=== PATIENT | male | born 1965 | race Caucasian/White ===

== ENCOUNTER 2020-04-01 17:03 | Outpatient (CLI) | payer OTHER, SELFPAY ==
[2020-04-01 17:20] LABS: Basophils Absolute Auto 0.02 K/mm3 (0.00-0.10); Basophils Percent Auto 0.3 % (0.0-1.0); Eosinophils Absolute Auto 0.11 K/mm3 (0.02-0.50); Eosinophils Percent Auto 1.7 % (1.0-6.0); Hematocrit 39.8 % (40.0-54.0); Hemoglobin 13.4 g/dL (14.0-18.0); Immature Granulocyte Absolute 0.02 K/mm3 (0.00-0.00); Immature Granulocyte Percent A 0.3 % (0.0-0.0); Lymphocytes Absolute Auto 2.12 K/mm3 (1.10-4.50); Lymphocytes Percent Auto 32.9 % (18.0-42.0); Mean Corpuscular HGB Conc 33.7 g/dL (32.0-36.0); Mean Corpuscular Hemoglobin 33.3 pg (27.0-31.0); Mean Platelet Volume 9.7 fl (8.7-11.0); Monocytes Absolute Auto 0.64 K/mm3 (0.10-0.90); Monocytes Percent Auto 9.9 % (2.0-11.0); Neutrophils Absolute Auto 3.5 K/mm3 (1.7-7.2); Neutrophils Percent Auto 54.9 % (50.0-70.0); Platelet Count Result 145 K/mm3 (150-420); Red Blood Count 4.02 M/mm3 (4.70-6.10); Red Cell Distribution Width 12.8 % (11.6-14.4); White Blood Count 6.4 K/mm3 (4.8-10.8)
[2020-04-01 17:31] LABS: Hemoglobin A1C 7.8 % (<5.7)
[2020-04-01 19:02] LABS: Alanine Aminotransferase 79 U/L (16-63); Albumin Level 3.7 g/dL (3.4-5.0); Alkaline Phosphatase 92 U/L (46-116); Anion Gap 10 mmol/L (8-16); Aspartate Amino Transferase 58 U/L (15-37); Bilirubin,Total 0.7 mg/dL (0.00-1.00); Blood Urea Nitrogen 15 mg/dL (7-18); Calcium 9.7 mg/dL (8.5-10.1); Carbon Dioxide 28 mmol/L (21-32); Chloride 100 mmol/L (98-108); Cholesterol 217 mg/dL (0-200); Estimated Glomerular Filt Rate > 60; Glucose 196 mg/dL (70-99); HDL Direct 37 mg/dL (40-60); Osmolality Calculated 291 mOsm/kg (285-295); Potassium 4.2 mmol/L (3.5-5.1); Sodium 138 mmol/L (136-145); Total Protein 7.8 g/dL (6.4-8.2)
[2020-04-01 19:11] LABS: LDL Cholesterol Calculated 81 mg/dL (<130); Triglycerides 497 mg/dL (0-150)
[2020-04-01 19:12] LABS: LDL Cholesterol Direct 102 mg/dL (0-130); Thyroid Stimulating Hormone Reflex 0.67 u/IU/mL (0.36-3.74)
[2020-04-05 04:52] LABS: Hepatitis C Signal to Cutoff 0.02 ratio (<1.00); Hepatitis C Virus Antibody Nonreactive (Nonreactive)
== END 2020-04-01 17:04 | disposition home or self-care (01) ==
LOC: CHSLAB 17:06
PROVIDERS: PCP Family Medicine; Visit Provider Family Medicine
DX: E78.5 Hyperlipidemia, unspecified (principal); E11.9 Type 2 diabetes mellitus without complications; I10 Essential (primary) hypertension; Z11.59 Encounter for screening for other viral diseases
CPT/HCPCS: 36415; 80053; 80061; 83036; 83721; 84443; 85025

== ENCOUNTER 2020-04-13 15:57 | Outpatient (CLI) | payer OTHER, SELFPAY ==
[2020-04-13 16:58] LABS: Prostate Specific Antigen 0.7 ng/mL (< OR = 4.0)
== END 2020-04-13 15:58 | disposition home or self-care (01) ==
LOC: CHSLAB 15:58
PROVIDERS: PCP Family Medicine; Visit Provider Family Medicine
DX: Z12.5 Encounter for screening for malignant neoplasm of prostate (principal)
CPT/HCPCS: 36415; 84153; G0103

== ENCOUNTER 2020-05-26 03:13 | Outpatient (CLI) | payer OTHER, SELFPAY ==
[2020-05-26 19:05] LABS: SARS-CoV-2 RNA PCR Negative
== END 2020-05-26 03:14 | disposition home or self-care (01) ==
LOC: ANHCOVIDDT 03:13
PROVIDERS: PCP Family Medicine; Visit Provider Internal Medicine Gastroenterology
DX: Z01.812 Encounter for preprocedural laboratory examination (principal); Z20.828 Contact with and (suspected) exposure to other viral communicable diseases
CPT/HCPCS: 87635; C9803; U0003

== ENCOUNTER 2020-05-28 00:21 | Day surgery (SDC) | payer OTHER, SELFPAY ==
[2020-05-25 10:00] VITALS: BMI 39.7
[2020-05-28 06:52] VITALS: BP 164/76; PULSE 61; RESP 20; TEMP 36.4; O2SAT 98; BMI 38.5
[2020-05-28] MEDS: LACTATED RINGERS 1,000 ML 150 ML IV CONT (07:06)
[2020-05-28 07:07] LABS: Glucose Point of Care 150 (65-105)
--- NOTE | 2020-05-28 07:30 | WPDANESEPPF ---
Anes - Initial Pre Proc Eval Procedure: Operation Date: 05/28/20 08:00 Proposed Procedures p Screening Colonoscopy - Tom Adam MD Date/Time: 05/28/20 07:30 Surgeon: Tom Adam MD Pre Op Diagnosis: Neoplasm Screening Patient Data Age: 55 Gender: M Height: 1.83 m Weight: 129 kg Last Vital Signs Temp 36.4 C L 05/28/20 06:52 Pulse 61 05/28/20 06:52 Resp 20 05/28/20 06:52 BP 164/76 H 05/28/20 06:52 Pulse Ox 98 05/28/20 06:52 Allergies Allergy/AdvReac Type Severity Reaction Status Date / Time cephalexin Allergy Intermediate Unknown Verified 05/28/20 06:50 Penicillins Allergy Intermediate Unknown Verified 05/28/20 06:50 Hydrocodone/Acetaminophen Allergy Intermediate Unknown Uncoded 05/28/20 06:50 Home Medications Medication Instructions Recorded Confirmed Type zolpidem 12.5 mg tablet,extended 12.5 mg PO ONCE #10 tablet 04/01/20 04/01/20 Rx release,multiphase cyclobenzaprine 10 mg tablet 10 mg PO BID #60 tablet 04/06/20 05/25/20 Rx sodium,potassium,mag sulfates 17.5 480 ml PO .COMPLEX #354 ml 04/07/20 Rx gram-3.13 gram-1.6 gram oral soln gabapentin 300 mg capsule 300 mg PO TID #90 cap 05/05/20 05/25/20 Rx pantoprazole 40 mg tablet,delayed 40 mg PO QAM #30 tablet 05/05/20 05/25/20 Rx release diclofenac sodium 75 mg 75 mg PO BID #60 tablet 05/11/20 05/25/20 Rx tablet,delayed release amlodipine 10 mg PO DAILY 05/25/20 05/25/20 History carvedilol 25 mg PO DAILY 05/25/20 05/25/20 History clonidine HCl 0.1 mg PO BID 05/25/20 05/25/20 History glipizide 10 mg PO DAILY 05/25/20 05/25/20 History losartan-hydrochlorothiazide 1 tablet PO DAILY 05/25/20 05/25/20 History metformin 1,000 mg PO BID 05/25/20 History metoprolol tartrate 50 mg PO BID 05/25/20 05/25/20 History oxybutynin chloride 10 mg PO DAILY 05/25/20 05/25/20 History rosuvastatin 20 mg PO DAILY 05/25/20 05/28/20 History sodium,potassium,mag sulfates 17.5 See Rx Instructions PO .COMPLEX 05/27/20 Rx gram-3.13 gram-1.6 gram oral soln #354 ml Laboratory Tests 05/28/20 06:58 POC Capillary Glucose 150 mg/dl H mg/dl (65-105) Patient hx anesthesia problems: none Family hx anesthesia problems: none PMFSH Past Medical History Medical History (Updated 05/28/20 @ 07:32 by Antony Fairchild MD) Chronic back pain JEWEL (generalized anxiety disorder) Heart murmur Sees Dr Meehan Hyperlipidemia Hypertension Obesity Type 2 diabetes mellitus Ulcer Family History Family History Other Family history of malignant neoplasm Family history of type 2 diabetes mellitus Social History Social History Smoking status: Never smoker Alcohol intake: current Substance use: never Substance use type: does not use Living arrangements: with family Anes - Evattila Final PreProcedure Day of Procedure 05/28/20 07:30 Patient weight: obese Heart: regular rate and rhythm Lungs: clear to auscultation and normal air movement Airway: Mallampati scale class II Neurological: alert and oriented Last oral intake: >/= 8 hours ASA classification: III Emergent: no Anesthetic plan: proceed Anesthesia type and monitoring: general GIVS Informed Consent: The patient's anesthetic plan and its attendant risks and benefits were discussed with the patient/family/POA. Questions were solicited and answers provided to the satisfaction of the patient/family/POA.
--- NOTE | 2020-05-28 08:12 | PM.HPGS ---
History of Present Illness History of Present Illness Consent: Risks, benefits, and alternatives have been discussed and questions answered. Patient agrees to proceed with procedure. Chief complaint: Neoplasm Screening Narrative: Jose Rutledge is a 55 year old male here for screening colonoscopy Review of Systems Constitutional: Constitutional: Denies headache(s) and Denies weakness Eyes: Eyes: Denies blurry vision ENT: Reports Normal hearing present, Denies headache(s) and Denies neck pain Cardiovascular: Cardiovascular: Denies chest pain and Denies dyspnea Respiratory: Respiratory: Denies dyspnea Gastrointestinal: Gastrointestinal: Reports no additional gastrointestinal complaints Genitourinary: Genitourinary: Denies dysuria Musculoskeletal: Musculoskeletal: Denies neck pain Integumentary/Breasts: Skin/Breast: Denies dry skin Neurologic: Reports Normal hearing present, Denies headache(s) and Denies weakness Psychiatric: Psychiatric: Denies anxiety Endocrine: Endocrine: Denies change in body appearance Hematologic/Lymphatic: Hematologic/Lymphatic: Denies easy bleeding Allergic/Immunologic: Allergic/Immunologic: Denies urticaria PMFSH Past Medical History Medical History (Updated 05/28/20 @ 07:32 by Antony Fairchild MD) Chronic back pain JEWEL (generalized anxiety disorder) Heart murmur Sees Dr Meehan Hyperlipidemia Hypertension Obesity Type 2 diabetes mellitus Ulcer Family History Family History Other Family history of malignant neoplasm Family history of type 2 diabetes mellitus Social History Social History Smoking status: Never smoker Alcohol intake: current Substance use: never Substance use type: does not use Living arrangements: with family Meds Home Medications and Allergies Home Medications Medication Instructions Recorded Confirmed Type zolpidem 12.5 mg tablet,extended 12.5 mg PO ONCE #10 tablet 04/01/20 04/01/20 Rx release,multiphase cyclobenzaprine 10 mg tablet 10 mg PO BID #60 tablet 04/06/20 05/25/20 Rx sodium,potassium,mag sulfates 17.5 480 ml PO .COMPLEX #354 ml 04/07/20 Rx gram-3.13 gram-1.6 gram oral soln gabapentin 300 mg capsule 300 mg PO TID #90 cap 05/05/20 05/25/20 Rx pantoprazole 40 mg tablet,delayed 40 mg PO QAM #30 tablet 05/05/20 05/25/20 Rx release diclofenac sodium 75 mg 75 mg PO BID #60 tablet 05/11/20 05/25/20 Rx tablet,delayed release amlodipine 10 mg PO DAILY 05/25/20 05/25/20 History carvedilol 25 mg PO DAILY 05/25/20 05/25/20 History clonidine HCl 0.1 mg PO BID 05/25/20 05/25/20 History glipizide 10 mg PO DAILY 05/25/20 05/25/20 History losartan-hydrochlorothiazide 1 tablet PO DAILY 05/25/20 05/25/20 History metformin 1,000 mg PO BID 05/25/20 History metoprolol tartrate 50 mg PO BID 05/25/20 05/25/20 History oxybutynin chloride 10 mg PO DAILY 05/25/20 05/25/20 History rosuvastatin 20 mg PO DAILY 05/25/20 05/28/20 History sodium,potassium,mag sulfates 17.5 See Rx Instructions PO .COMPLEX 05/27/20 Rx gram-3.13 gram-1.6 gram oral soln #354 ml Allergies Allergy/AdvReac Type Severity Reaction Status Date / Time cephalexin Allergy Intermediate Unknown Verified 05/28/20 06:50 Penicillins Allergy Intermediate Unknown Verified 05/28/20 06:50 Hydrocodone/Acetaminophen Allergy Intermediate Unknown Uncoded 05/28/20 06:50 Vital Signs Vital Signs - 24 hr 05/28/20 06:52 Temperature 97.5 F L Pulse Rate 61 Respiratory Rate 20 Blood Pressure 164/76 H Pulse Oximetry 98 Exam Const: General: comfortable and no acute distress HENMT: General nose exam: Normal nares present Eyes: General: appearance normal, both eyes and all related structures Neck: Neck: no JVD Resp: Auscultation: clear to auscultation bilaterally Cardio: Rate: regular rate Rhythm: regular rhythm GI: Inspection: non-diste
[2020-05-28 08:39] VITALS: BP 122/79; PULSE 64; RESP 21; O2SAT 97
[2020-05-28 08:52] VITALS: BP 139/86; PULSE 60; RESP 21; O2SAT 99
== END 2020-05-28 09:05 | disposition home or self-care (01) ==
PROVIDERS: PCP Family Medicine; Visit Provider Internal Medicine Gastroenterology
PROC: 0DJD8ZZ Inspection of Lower Intestinal Tract, Via Natural or Artificial Opening Endoscopic (ICD-10-PCS; CPT 45378; principal; 2020-05-28 08:00)
DX: Z12.11 Encounter for screening for malignant neoplasm of colon (principal); K64.8 Other hemorrhoids; I10 Essential (primary) hypertension; R01.1 Cardiac murmur, unspecified; E78.5 Hyperlipidemia, unspecified; E11.9 Type 2 diabetes mellitus without complications; E66.9 Obesity, unspecified; M54.9 Dorsalgia, unspecified; G89.29 Other chronic pain
CPT/HCPCS: 45378; J2704; J7120

== ENCOUNTER 2020-08-30 12:25 | Outpatient (CLI) | payer OTHER, SELFPAY ==
--- NOTE | ~2020-08-30 | XR_ITS ---
EXAMINATION: XR knee LT min 4V DATE: 08/30/2020 12:42 INDICATION: Left knee pain. TECHNIQUE: 4 views of left knee were obtained. COMPARISON: Left tibia and fibula radiographs 04/19/2010 FINDINGS: Bone alignment is normal. No fracture. There is mild tricompartmental osteoarthritis. There is a small knee joint effusion. IMPRESSION: 1. Mild left knee osteoarthritis. 2. Small left knee joint effusion. Reviewed, dictated and finalized at location A. TRAPPER
== END 2020-08-30 12:26 | disposition home or self-care (01) ==
PROVIDERS: PCP Family Medicine; Visit Provider Orthopaedic Surgery
DX: M17.12 Unilateral primary osteoarthritis, left knee (principal); M25.462 Effusion, left knee
CPT/HCPCS: 73564

== ENCOUNTER → 2021-01-13 15:48 | Outpatient (CLI) | payer OTHER, SELFPAY ==
--- NOTE | ~2021-01-13 | MR_ITS ---
EXAMINATION: MR knee LT wo con DATE: 01/13/2021 16:56 INDICATION: Left knee pain TECHNIQUE: Magnetic resonance imaging (MRI) of the left knee was performed without intravenous contra st. Sequences included coronal PD-weighted FSE, coronal PD-weighted FS FSE, sagittal T2-weighted FSE , sagittal PD-weighted FS FSE and axial PD weighted fat saturated FSE. COMPARISON: None. FINDINGS: Medial compartment: Complex medial meniscal tear which includes both radial as well as longitudinal horizontal tear plane s. Deep chondral ulceration with cortical irregularity and prominent subarticular edema at the anteri or weightbearing medial femoral condyle. Additional full and near full-thickness cartilage loss at th e medial half of the medial tibial plateau with small region of subarticular edema along the anterome dial rim. Less severe partial thickness cartilage loss with smooth chondral surface at the central to posterior weightbearing medial femoral condyle and remainder of the medial tibial plateau. Lateral compartment: Lateral meniscus is normal. Mild chondral surface irregularity at the central aspect of the lateral t ibial plateau. Mild partial thickness cartilage loss with smooth chondral surface along the posterior weightbearing lateral femoral condyle. Patellofemoral compartment: Partial thickness chondral fissuring involving up to 50% the cartilage thickness at the inferior aspe ct of the lateral patellar facet and apical ridge. Deep chondral ulceration with small central subcho ndral osteophytes at the inferior aspect of the medial trochlea. Ligaments and tendons: Complete tear of the anterior cruciate ligament. Posterior cruciate ligament is normal. Prominent thi ckening of the proximal medial collateral ligament with mild surrounding edema consistent with age-in determinate moderate grade sprain, favor chronic with reactive edema related to the meniscal tear. Mi ld proximal and distal patellar tendinopathy. Small enthesophytes and minimal tendinopathy at the dis leatha quadriceps tendon. The visualized medial and lateral hamstring tendons as well as the iliotibial band are normal. Fluid: Small left knee joint effusion with mild synovitis at the suprapatellar pouch. No loose osteochondral bodies identified. Small Paz's cyst. Osseous/other: No fracture or pathologic marrow replacing process. Low signal intensity rim surrounding a 2.1 x 1.3 x 1.4 cm central region of fat with signal loss on fat saturated images. There are few tiny foci of c alcification in this region on the plain radiographs which suggests fat necrosis and developing heter otopic ossification. IMPRESSION: 1. Complete anterior cruciate ligament tear. 2. Complex medial meniscal tear. 3. Interval development of moderate osteoarthritis with extensive moderate and high-grade chondromala frederic in the medial compartment. 4. Minimal change in mild osteoarthritis with regions of moderate to high-grade chondral malacia in t he patellofemoral compartment and interval development of mild osteoarthritis with low to moderate gr nellie chondromalacia in the lateral compartment. 5. Small left knee joint effusion and small Paz's cyst. Reviewed, dictated and finalized at location A. IMPRESSION: 1. Complete anterior cruciate ligament tear. 2. Complex medial meniscal tear. 3. Interval development of moderate osteoarthritis with extensive moderate and high-grade chondromalacia in the medial compartment. 4. Minimal change in mild osteoarthritis with regions of moderate to high-grade chondral malacia in the patellofemoral compartment and interval development of mild osteoarthritis with low to moderate grade chondromalacia in the lateral c ompartment. 5. Small left knee joint effusion and smal
== END ==
PROVIDERS: Visit Provider Orthopaedic Surgery
DX: S83.232A Complex tear of medial meniscus, current injury, left knee, initial encounter (principal); S83.512A Sprain of anterior cruciate ligament of left knee, initial encounter; X58.XXXA Exposure to other specified factors, initial encounter; M25.462 Effusion, left knee; M71.22 Synovial cyst of popliteal space [Baker], left knee
CPT/HCPCS: 73721

== ENCOUNTER 2021-01-14 12:10 | Outpatient (CLI) | payer OTHER, SELFPAY ==
[2021-01-14 12:41] LABS: Hemoglobin A1C 6.5 % (<5.7)
== END 2021-01-14 12:11 | disposition home or self-care (01) ==
PROVIDERS: PCP Family Medicine; Visit Provider Orthopaedic Surgery
DX: R73.9 Hyperglycemia, unspecified (principal)
CPT/HCPCS: 36415; 83036

== ENCOUNTER 2021-02-01 14:06 | Outpatient (CLI) | payer OTHER, SELFPAY | END 2021-02-01 14:07 | disposition home or self-care (01) | LOC: CHSIMG 14:07 | PROVIDERS: PCP Family Medicine; Visit Provider Specialist | DX: I25.10 Atherosclerotic heart disease of native coronary artery without angina pectoris (principal); I35.9 Nonrheumatic aortic valve disorder, unspecified; I51.7 Cardiomegaly; I10 Essential (primary) hypertension | CPT/HCPCS: C8929 ==

== ENCOUNTER 2021-02-14 03:07 | Day surgery (SDC) | payer OTHER, SELFPAY ==
[2021-02-10 11:12] VITALS: BMI 39.3
--- NOTE | 2021-02-10 14:37 | PM.IMHP ---
H&P: HPI History of Present Illness Date/Time: 02/10/21 14:37 Chief Complaint: left knee pain Narrative: 55-year-old gentleman with a history of left knee pain. Previous cortisone injections with temporary relief. More recent pain with activity and weight-bearing unrelieved with conservative measures. Also recent cellulitis of the left leg improved with oral antibiotics. Patient has failed non operative treatment and presents now for operative treatment for the left knee. Review of Systems Constitutional: Constitutional: Denies headache(s) and Denies weakness Eyes: Eyes: Denies blurry vision ENT: Reports Normal hearing present, Denies headache(s) and Denies neck pain Cardiovascular: Cardiovascular: Denies chest pain and Denies dyspnea Respiratory: Respiratory: Denies dyspnea Gastrointestinal: Gastrointestinal: Reports no additional gastrointestinal complaints Genitourinary: Genitourinary: Denies dysuria Musculoskeletal: Musculoskeletal: Denies neck pain Integumentary/Breasts: Skin/Breast: Denies dry skin Neurologic: Reports Normal hearing present, Denies headache(s) and Denies weakness Psychiatric: Psychiatric: Denies anxiety Endocrine: Endocrine: Denies change in body appearance Hematologic/Lymphatic: Hematologic/Lymphatic: Denies easy bleeding Allergic/Immunologic: Allergic/Immunologic: Denies urticaria PMFSH Past Medical History Medical History (Updated 02/10/21 @ 14:39 by Noé Crowley MD) Acute medial meniscus tear of left knee Cellulitis of left leg Chronic back pain Degenerative arthritis of left knee JEWEL (generalized anxiety disorder) Heart murmur Sees Dr Meehan Hyperlipidemia Hypertension Knee pain, left Obesity Type 2 diabetes mellitus Ulcer Family History Family History Other Family history of malignant neoplasm Family history of type 2 diabetes mellitus Social History Social History Smoking status: Never smoker Second hand tobacco smoke exposure: No Alcohol intake: current Drinks per week: 12 Alcohol use details: beer Substance use: never Substance use type: does not use Spiritual care concerns: No Meds Home Medications and Allergies Home Medications Medication Instructions Recorded Confirmed Type carvedilol 25 mg PO DAILY 05/25/20 02/03/21 History metformin 1,000 mg tablet 1,000 mg PO BID #180 tablet 08/17/20 02/03/21 Rx pantoprazole 40 mg tablet,delayed 40 mg PO QAM #90 tablet 08/18/20 02/03/21 Rx release amlodipine 10 mg tablet 10 mg PO DAILY #90 tablet 09/13/20 02/03/21 Rx glipizide 10 mg tablet 10 mg PO DAILY #90 tablet 09/13/20 02/03/21 Rx losartan 100 1 tablet PO DAILY #90 tablet 09/13/20 02/03/21 Rx mg-hydrochlorothiazide 12.5 mg tablet rosuvastatin 20 mg tablet 20 mg PO DAILY #90 tablet 09/13/20 02/03/21 Rx zolpidem 12.5 mg tablet,extended 12.5 mg PO ONCE #10 tablet 11/16/20 02/03/21 Rx release,multiphase gabapentin 300 mg capsule 300 mg PO TID #90 cap 12/17/20 02/03/21 Rx aspirin 81 mg tablet,delayed 81 mg PO DAILY 01/14/21 02/03/21 History release clonidine HCl 0.1 mg tablet See Rx Instructions .ROUTE 01/24/21 02/03/21 Rx .COMPLEX #180 tablet cyclobenzaprine 10 mg tablet See Rx Instructions .ROUTE 02/10/21 Rx .COMPLEX #60 tablet diclofenac sodium 75 mg See Rx Instructions .ROUTE 02/10/21 Rx tablet,delayed release .COMPLEX #60 tablet Allergies Allergy/AdvReac Type Severity Reaction Status Date / Time cephalexin Allergy Intermediate Rash Verified 02/10/21 11:07 Penicillins Allergy Intermediate Rash Verified 02/10/21 11:07 Hydrocodone/Acetaminophen AdvReac Intermediate Nausea and Uncoded 02/10/21 11:07 Vomiting Exam Const: General: healthy appearing; No in distress or confusion Orientation/consciousness: oriented to person, oriented to place, oriented to time and No confusio
[2021-02-14] VITALS (9 sets, daily range): BP systolic 131–151; BP diastolic 69–84; PULSE 64–78; RESP 11–20; TEMP 36.3–37; O2SAT 93–99
--- NOTE | 2021-02-14 07:20 | WPDHPUPDATE1 ---
History and Physical Update Update Date/Time: 02/14/21 07:20 History and Physical has been reviewed, including an updated exam of the patient. There are NO changes in the patient's condition. Risks, benefits, and alternatives have been discussed and questions answered. Patient agrees to proceed with procedure.
[2021-02-14] MEDS: ACETAMINOPHEN 500 MG TABLET 1000 MG PO (08:33)
[2021-02-14] MEDS: LACTATED RINGERS 1,000 ML 30 ML IV CONT ×2 (08:42→13:02)
[2021-02-14] MEDS: KETOROLAC 15 MG/ML VIAL (*BKC) IV PUSH (08:44)
--- NOTE | 2021-02-14 09:24 | WPDANESEPPF ---
Anes - Initial Pre Proc Eval Procedure: Operation Date: 02/14/21 10:00 Proposed Procedures p Left Knee Arthroscopy, Debride Meniscus, Synovectomy, Chondroplasty, Proceed As Indicated - Noé Crowley MD Date/Time: 02/14/21 09:24 Surgeon: Noé Crowley MD Pre Op Diagnosis: left knee pain,medial meniscal tear, chondromylasi Patient Data Age: 55 Gender: M Height: 1.83 m Weight: 131.54 kg Allergies Allergy/AdvReac Type Severity Reaction Status Date / Time cephalexin Allergy Intermediate Nausea Verified 02/14/21 08:21 Penicillins Allergy Intermediate Hives Verified 02/14/21 08:21 hydrocodone [From [place]] AdvReac Intermediate Nausea and Verified 02/14/21 08:21 Vomiting Home Medications Medication Instructions Recorded Confirmed Type carvedilol 25 mg PO DAILY 05/25/20 02/14/21 History metformin 1,000 mg tablet 1,000 mg PO BID #180 tablet 08/17/20 02/14/21 Rx pantoprazole 40 mg tablet,delayed 40 mg PO QAM #90 tablet 08/18/20 02/14/21 Rx release amlodipine 10 mg tablet 10 mg PO DAILY #90 tablet 09/13/20 02/14/21 Rx glipizide 10 mg tablet 10 mg PO DAILY #90 tablet 09/13/20 02/14/21 Rx losartan 100 1 tablet PO DAILY #90 tablet 09/13/20 02/14/21 Rx mg-hydrochlorothiazide 12.5 mg tablet rosuvastatin 20 mg tablet 20 mg PO DAILY #90 tablet 09/13/20 02/14/21 Rx gabapentin 300 mg capsule 300 mg PO TID #90 cap 12/17/20 02/14/21 Rx aspirin 81 mg tablet,delayed 81 mg PO DAILY 01/14/21 02/14/21 History release clonidine HCl 0.1 mg tablet See Rx Instructions .ROUTE 01/24/21 02/14/21 Rx .COMPLEX #180 tablet cyclobenzaprine 10 mg tablet See Rx Instructions .ROUTE 02/10/21 02/14/21 Rx .COMPLEX #60 tablet diclofenac sodium 75 mg See Rx Instructions .ROUTE 02/10/21 02/14/21 Rx tablet,delayed release .COMPLEX #60 tablet multivitamin [Daily Vitamin] 1 tablet PO DAILY 02/10/21 02/14/21 History Laboratory Tests 02/14/21 08:14 Sodium Pending Potassium Pending Chloride Pending Carbon Dioxide Pending Anion Gap Pending BUN Pending Creatinine Pending Estim Creat Clear Calc Pending Estimated GFR Pending Glucose Pending Calcium Pending Patient hx anesthesia problems: none Family hx anesthesia problems: none [facility] Past Medical History Medical History (Updated 02/10/21 @ 14:39 by Noé Crowley MD) Acute medial meniscus tear of left knee Cellulitis of left leg Chronic back pain Degenerative arthritis of left knee JEWEL (generalized anxiety disorder) Heart murmur Sees Dr Meehan Hyperlipidemia Hypertension Knee pain, left Obesity Type 2 diabetes mellitus Ulcer Family History Family History Other Family history of malignant neoplasm Family history of type 2 diabetes mellitus Social History Social History Smoking status: Never smoker Second hand tobacco smoke exposure: No Alcohol intake: current Drinks per week: 12 Alcohol use details: beer Substance use: never Substance use type: does not use Living arrangements: with family Spiritual care concerns: No Anes - Eval Final PreProcedure Day of Procedure 02/14/21 09:24 Patient weight: obese Heart: regular rate and rhythm Lungs: clear to auscultation and normal air movement Airway: Mallampati scale class III Neurological: alert and oriented Last oral intake: >/= 8 hours ASA classification: III Emergent: no Anesthetic plan: proceed Anesthesia type and monitoring: general LMA and standard monitoring Informed Consent: The patient's anesthetic plan and its attendant risks and benefits were discussed with the patient/family/POA. Questions were solicited and answers provided to the satisfaction of the patient/family/POA.
[2021-02-14 09:26] LABS: Anion Gap 9 mmol/L (8-16); Blood Urea Nitrogen 16 mg/dL (9-20); Calcium 8.9 mg/dL (8.4-10.2); Carbon Dioxide 25 mmol/L (22-30); Chloride 103 mmol/L (98-107); Estimated CRCL calculation 142 ml/min; Estimated Glomerular Filt Rate > 60; Glucose 167 mg/dL (75-110); Potassium 4.1 mmol/L (3.4-5.0); Sodium 137 mmol/L (137-145)
--- NOTE | 2021-02-14 09:29 | WPDANESEPPF ---
Anes - Initial Pre Proc Eval Procedure: Operation Date: 02/14/21 10:00 Proposed Procedures p Left Knee Arthroscopy, Debride Meniscus, Synovectomy, Chondroplasty, Proceed As Indicated - Noé Crowley MD Date/Time: 02/14/21 09:29 Surgeon: Noé Crowley MD Pre Op Diagnosis: left knee pain,medial meniscal tear, chondromylasi Patient Data Age: 55 Gender: M Height: 1.83 m Weight: 132.5 kg Allergies Allergy/AdvReac Type Severity Reaction Status Date / Time cephalexin Allergy Intermediate Nausea Verified 02/14/21 08:21 Penicillins Allergy Intermediate Hives Verified 02/14/21 08:21 hydrocodone [From [place]] AdvReac Intermediate Nausea and Verified 02/14/21 08:21 Vomiting Home Medications Medication Instructions Recorded Confirmed Type carvedilol 25 mg PO DAILY 05/25/20 02/14/21 History metformin 1,000 mg tablet 1,000 mg PO BID #180 tablet 08/17/20 02/14/21 Rx pantoprazole 40 mg tablet,delayed 40 mg PO QAM #90 tablet 08/18/20 02/14/21 Rx release amlodipine 10 mg tablet 10 mg PO DAILY #90 tablet 09/13/20 02/14/21 Rx glipizide 10 mg tablet 10 mg PO DAILY #90 tablet 09/13/20 02/14/21 Rx losartan 100 1 tablet PO DAILY #90 tablet 09/13/20 02/14/21 Rx mg-hydrochlorothiazide 12.5 mg tablet rosuvastatin 20 mg tablet 20 mg PO DAILY #90 tablet 09/13/20 02/14/21 Rx gabapentin 300 mg capsule 300 mg PO TID #90 cap 12/17/20 02/14/21 Rx aspirin 81 mg tablet,delayed 81 mg PO DAILY 01/14/21 02/14/21 History release clonidine HCl 0.1 mg tablet See Rx Instructions .ROUTE 01/24/21 02/14/21 Rx .COMPLEX #180 tablet cyclobenzaprine 10 mg tablet See Rx Instructions .ROUTE 02/10/21 02/14/21 Rx .COMPLEX #60 tablet diclofenac sodium 75 mg See Rx Instructions .ROUTE 02/10/21 02/14/21 Rx tablet,delayed release .COMPLEX #60 tablet multivitamin [Daily Vitamin] 1 tablet PO DAILY 02/10/21 02/14/21 History Laboratory Tests 02/14/21 08:58 Sodium 137 mmol/L mmol/L (137-145) Potassium 4.1 mmol/L mmol/L (3.4-5.0) Chloride 103 mmol/L mmol/L (98-107) Carbon Dioxide 25 mmol/L mmol/L (22-30) Anion Gap 9 mmol/L mmol/L (8-16) BUN 16 mg/dL mg/dL (9-20) Creatinine 0.70 mg/dL mg/dL (0.7-1.3) Estim Creat Clear Calc 142 ml/min ml/min Estimated GFR > 60 (59 - ) Glucose 167 mg/dL H mg/dL (75-110) Calcium 8.9 mg/dL mg/dL (8.4-10.2) Patient hx anesthesia problems: none Family hx anesthesia problems: none [facility] Past Medical History Medical History (Updated 02/10/21 @ 14:39 by Noé Crowley MD) Acute medial meniscus tear of left knee Cellulitis of left leg Chronic back pain Degenerative arthritis of left knee JEWEL (generalized anxiety disorder) Heart murmur Sees Dr Meehan Hyperlipidemia Hypertension Knee pain, left Obesity Type 2 diabetes mellitus Ulcer Family History Family History Other Family history of malignant neoplasm Family history of type 2 diabetes mellitus Social History Social History Smoking status: Never smoker Second hand tobacco smoke exposure: No Alcohol intake: current Drinks per week: 12 Alcohol use details: beer Substance use: never Substance use type: does not use Living arrangements: with family Spiritual care concerns: No Anes - Eval Final PreProcedure Day of Procedure 02/14/21 09:29 Informed Consent: The patient's anesthetic plan and its attendant risks and benefits were discussed with the patient/family/POA. Questions were solicited and answers provided to the satisfaction of the patient/family/POA.
--- NOTE | 2021-02-14 10:06 | SUR.PREOP ---
1005 informed pt delay in procedure.
[2021-02-14] MEDS: CLINDAMYCIN 900 MG/D5W 50 ML 900 MG/50 ML PIGGYBACK 50 MG IVPB (11:47)
[2021-02-14] MEDS: BUPIVACAINE/EPINEPHRINE 0.5% 30 ML VIAL INFILTRATE (12:31)
[2021-02-14] MEDS: BUPIVACAINE HCL 0.25% PF 30 ML VIAL INFILTRATE (12:47)
--- NOTE | 2021-02-14 12:58 | W.PM.PROC2 ---
Procedure Note - Detailed Date of Procedure 02/14/21 Pre-op Diagnosis left knee pain,medial meniscal tear, chondromylasi Post-op Diagnosis same Procedure Performed Right knee arthroscopy with medial meniscectomy, synovectomy, chondroplasty Surgeon Noé Crowley MD Post Doctoral Fellow none Anesthesia general Indications 55-year-old gentleman with left knee pain. Continues to have symptoms despite cortisone injection, physical therapy, bracing and home exercises. MRI demonstrates medial meniscus tear as well as degenerative changes. He has an old ACL tear. He presents now for operative treatment. Findings Left knee with complete absence of the anterior cruciate ligament. Posterior cruciate ligament intact. Mild fraying of the lateral meniscus. Large degenerative complex tear of the posterior horn of the medial meniscus. Grade 4 chondromalacia medial femoral condyle. Grade 3 chondromalacia of the medial tibial plateau. Grade 1 chondromalacia lateral compartment. Grade 3 chondromalacia patella. Extensive anterior synovitis with impingement under the patella. Large medial and lateral plica. Description of Procedure Informed consent given by patient. Operative extremity marked in preoperative holding area. Patient received intravenous antibiotics. Patient brought to operating room and underwent general anesthetic by anesthesia team. Positioned supine on operating room table. Left leg placed into a posterior thigh leg juares. Foot of the table dropped to 90? and right leg padded out of the field. Time-out performed confirming patient, site of surgery and plan. Left knee prepped and draped in usual sterile surgical fashion using ChloraPrep skin solution. Standard arthroscopic portals made by using a 11 blade knife for the anterior lateral portal 1st. Capsule penetrated bluntly. Camera and inflow started. The below operative findings noted. Intra-articular visualization used to position the anterior medial portal using 22 gauge spinal needle. A 11 blade knife used for the skin and blunt penetration of the capsule. 4.7 millimeter arthroscopic shaver introduced and partial medial meniscectomy of the loose and torn portion performed. Edge of meniscus completed with arthroscopic Wand. Arthroscopic Wand used to perform chondroplasty of the patellofemoral articulation and the medial femoral condyle. Shaver reintroduced and a synovectomy performed of the anterior fat pad and extensive synovium as well as medial and lateral plica. Bleeding points coagulated with Wand. Knee inspected, no loose pieces noted. 1 liter of irrigant infused and suction out. Arthroscopic cannulas removed. Skin closed with 4 nylon interrupted suture. Local anesthetic with 0.25% Marcaine. Sterile dressing applied. Patient awoken from anesthesia, extubated and taken to recovery room in stable condition. All sponge needle and instrument counts correct at the end of the case. Estimated Blood Loss 5 Tourniquet Time 0 Drains No Packing No Pathology none sent Complications None Condition stable Disposition PACU
[2021-02-15 05:58] LABS: Glucose Point of Care 139 mg/dl (65-105)
== END 2021-02-14 15:00 | disposition home or self-care (01) ==
PROVIDERS: Anesthesiology; PCP Family Medicine; Visit Provider Orthopaedic Surgery
PROC: (CPT 29870; principal; 2021-02-14 10:00)
DX: M23.322 Other meniscus derangements, posterior horn of medial meniscus, left knee (principal); M94.262 Chondromalacia, left knee; M65.862 Other synovitis and tenosynovitis, left lower leg; M17.12 Unilateral primary osteoarthritis, left knee; I10 Essential (primary) hypertension; E78.5 Hyperlipidemia, unspecified; E11.9 Type 2 diabetes mellitus without complications; F41.8 Other specified anxiety disorders; M54.9 Dorsalgia, unspecified; G89.29 Other chronic pain; R01.1 Cardiac murmur, unspecified; E66.9 Obesity, unspecified; Z68.39 Body mass index [BMI] 39.0-39.9, adult; Z79.84 Long term (current) use of oral hypoglycemic drugs; Z79.82 Long term (current) use of aspirin
CPT/HCPCS: 29881; 36415; 80048; 82948; A9270; J1100; J1170; J1885; J2250; J2405; J2704; J3010; J7120

== ENCOUNTER 2021-02-21 07:28 | Outpatient (CLI) | payer OTHER, SELFPAY ==
--- NOTE | ~2021-02-21 | XR_ITS ---
EXAMINATION: XR knee LT 3V DATE: 02/21/2021 08:49 INDICATION: Recent left knee surgery TECHNIQUE: Three views of the left knee were obtained. COMPARISON: 08/30/2020 FINDINGS: Alignment is normal. No fracture or osteochondral lesion. There is mild tricompartmental os teoarthritis characterized by tiny marginal osteophytes. There is a small knee joint effusion. IMPRESSION: 1. Small knee joint effusion. Reviewed, dictated and finalized at location B.
== END 2021-02-21 07:29 | disposition home or self-care (01) ==
PROVIDERS: PCP Family Medicine; Visit Provider Orthopaedic Surgery
DX: M25.562 Pain in left knee (principal); G89.29 Other chronic pain
CPT/HCPCS: 73562

== ENCOUNTER 2021-02-24 07:49 | Outpatient (RCR) | payer OTHER, SELFPAY ==
--- NOTE | 2021-02-24 09:00 | PTOPEVAL ---
Thank you for referring Jose Rutledge to [facility].? The patient is scheduled to be seen for therapy? ____x/week for ___ weeks. Please review, sign, date and return this plan of care DEZ. I agree with and certify that the following plan of care is medically necessary. Referring Physician Date Admitting Provider: Attending Provider: Noé Crowley MD Referring Provider: *PT Outpatient Evaluation Start: 02/24/21 08:06 Freq: Status: Active Protocol: Document 02/24/21 08:05 JOCELYNE (Rec: 02/24/21 08:59 JOCELYNE [id number]) Therapy Assessment Status Assessment Status Assessment Status Evaluation Outpatient Past Medical History Neurological History Hx Neurological Disorders No Significant History Cardiovascular History Hx Hypercholesterolemia Yes Hx Hypertension Yes Respiratory History Hx Respiratory Disorders No Significant History Gastrointestinal History Hx Appendectomy Yes Hx Gastroesophageal Reflux Disease Yes Hx Gastrointestinal Bleed Yes: Due to bleeding ulcers 2012 Hx Ulcer Yes Genitourinary History Hx Genitourinary Disorders No Significant History Musculoskeletal History Hx Back Pain Yes Hx Orthopedic Surgery Yes: RIGHT SHOULDER Hx Spinal Surgery Yes Hematological History Hx Blood Transfusions Yes Endocrine History Hx Diabetes Yes: takes metformin HEENT History Hx HEENT Disorders No Significant History Integumentary History Hx Psoriasis Yes: bilat thighs Reproductive History Hx Reproductive Disorders No Significant History Psychosocial History Hx Anxiety Yes Pain History Has Past Pain Affected Your Daily Life Yes History of Long-Term Prescription Pain Yes: oxycodone, tramadol... Medication Use (Opiates) stopped 8 years ago Anesthesia History Hx Anesthesia Reactions No Significant History Evaluation Information Problem Diagnosis L knee arthroscopy Onset 02/14/21 Additional Evaluation Detail LEFS = 52% functionally declined Subjective Information patient reports he had a Query Text:As Reported By Patient/ meniscectomy on 02/14/21. he Family reports initially there was no injury, but he began having pain. he reports prior to surgery he would have good and bad days. he reports he would have to assist his leg into his truck some days. he reports since surgyer, he has bee
== END 2021-03-17 23:59 | disposition home or self-care (01) ==
LOC: CHSPT 07:49
PROVIDERS: Visit Provider Orthopaedic Surgery
DX: Z98.890 Other specified postprocedural states (principal)
CPT/HCPCS: 97016; 97110; 97161

== ENCOUNTER → 2021-08-03 20:20 | Outpatient (CLI) | payer OTHER, SELFPAY ==
--- NOTE | 2021-08-08 14:46 | WPDSLEEPSTUD ---
Sleep Study Date of Study: 08/03/21 Ordering Provider: Faisal Richardson DO Interpreting Physician: Crystal Dick MD Sleep Study Type: Split Polysomnogram Height: 1.83 m Weight: 131.542 kg Body Mass Index: 39.3 Neck Circumference (inches): 21 [place]: 18 Reason for Sleep Study Poor sleep for 8 years, using sleeping pills to get to sleep, waking during the night, waking up feeling tired Sleep History Jose Rutledge is a 56-year-old man who has difficulty falling asleep and staying asleep. He wakes up throughout the night. He has used sleeping pills to help get to sleep. He occasionally awakens from sleep feeling short of breath. He does not awaken at night with heartburn, belching or coughing. He frequently snores and this is always loud enough that others complain about it. He rarely has trouble sleeping with a cold. He occasionally wakes up gasping for breath at night. He frequently has breathing problems at night observed by others. He occasionally sweats excessively at night and notices his heart pounding or beating irregularly night. He frequently falls asleep during the day frequently falls asleep involuntarily and occasionally falls asleep while driving. He occasionally has loss of muscle tone was strong emotion. He frequently has daytime difficulties due to excessive sleepiness. He occasionally feels paralyzed on waking or falling asleep and occasionally has vivid dreamlike scenes upon awakening or falling asleep. He does not feel afraid to go to sleep. He does not have nightmares. He frequently remembers his dreams. He frequently has racing thoughts. He rarely feels sad or depressed. He occasionally has anxiety and occasionally has muscular tension. He rarely notices parts of his body jerking. He does not kick during the night. He frequently has crawling and aching feelings in his legs and frequently has leg pain during the night. He does not have morning jaw pain. He rarely grinds his teeth during sleep. He occasionally has bothered by pain during the day, occasionally awakened by pain at night and occasionally wakes up feeling stiff in the morning with sore achy muscles. He frequently wakes up with pain in the neck and spine. Normal bedtime is 10:00 p.m. falling asleep within half an hour typically waking 4-5 times at night to use the bathroom or take his dogs outside. He may stay awake between 15 and 30 minutes during these night time awakenings. He wakes the morning at 4:15 a.m.. On the weekends he goes to bed later, 12 midnight and wakes at 7:00 a.m.. He takes naps in the afternoon or evening. A short nap may be refreshing. He is usually drowsy in the morning for 1 hour or longer. He feels better in the evening compared to other times of day. He has morning headaches on occasion. Habits: Never smoked tobacco. Caffeine 3-4 servings a day. Alcohol 4-5 servings a day. No recreational drugs. [facility] Past Medical History Medical History (Updated 08/08/21 @ 15:51 by Crystal Dick MD) Acid reflux Acute medial meniscus tear of left knee Cellulitis of left leg Chronic back pain Degenerative arthritis of left knee JEWEL (generalized anxiety disorder) Heart murmur Sees Dr Meehan Hyperlipidemia Hypertension Knee pain, left Obesity Type 2 diabetes mellitus Ulcer Surgical History Surgical History (Updated 07/28/21 @ 10:48 by Stephanie Reed MA) H/O knee surgery Family History Family History Other Family history of malignant neoplasm Family history of type 2 diabetes mellitus Social History Social History (Updated 07/28/21 @ 07:46 by Stephanie Reed MA) Smoking status: Never smoker Second hand tobacco smoke exposure: No Alcohol intake: current Drinks per week: 12 Alcohol use details: beer Substance use: never Substance use type: does not use Spiritual care concerns: No Medications Home Medications
[2021-08-08 16:06] VITALS: BMI 39.3
== END ==
PROVIDERS: PCP Family Medicine; Visit Provider Family Medicine
DX: G47.30 Sleep apnea, unspecified (principal); G47.00 Insomnia, unspecified
CPT/HCPCS: 95811

== ENCOUNTER 2021-10-04 11:26 | Emergency (ER) | payer OTHER, SELFPAY ==
--- NOTE | ~2021-10-04 | US_ITS ---
EXAMINATION:US venous doppler LE RT INDICATION:Leg swelling TECHNIQUE: Multiple grayscale, color flow and Doppler images of the right lower extremity deep venous systems were obtained and reviewed. COMPARISON:04/19/2010 FINDINGS: The common femoral, superficial femoral and popliteal veins demonstrate normal respiratory variation, augmentation and compressibility. Color flow is also seen within the posterior tibial, pe roneal, greater saphenous and profunda veins. There is an enlarged right inguinal lymph node measurin g 4.7 x 3.4 x 1.1 cm, likely reactive. IMPRESSION: 1: No lower extremity deep venous thrombosis. Reviewed, dictated and finalized at location A. EPT ARTIST
--- NOTE | ~2021-10-04 | CT_ITS ---
EXAMINATION: CT brain wo con DATE: 10/04/2021 13:00 INDICATION: Dizziness. TECHNIQUE: Computed tomography (CT) of the head was performed without intravenous contrast. The mA wa s adjusted according to patient size. Iterative reconstruction technique was employed. The dose-lengt h product was 605.33 mGy-cm. COMPARISON: Head CT 03/20/2007 FINDINGS: There is no intracranial hemorrhage, acute infarction, or abnormal intracranial mass lesion . The ventricles are normal in size. There is mild mucosal thickening in the ethmoid sinuses. The mas toid air cells are normal. The orbits are normal. IMPRESSION: 1. Normal brain. Reviewed, dictated and finalized at location A. EL ENGINE TESTER IMPRESSION: 1. Normal brain.
--- NOTE | ~2021-10-04 | CT_ITS ---
EXAMINATION: CT abdomen pelvis w con DATE: 10/04/2021 13:00 INDICATION: Generalized weakness. Epigastric pain. Dizziness. TECHNIQUE: Computed tomography (CT) of the abdomen and pelvis was performed with 100 cc Omnipaque 350 intravenous contrast. The dose-length product was 1499.14 mGy-cm. Automated exposure control and ite rative reconstruction technique were employed. COMPARISON: None. FINDINGS: Lung bases are unremarkable. Heart size normal. No significant pleural or pericardial effus ion. No significant vascular abnormality. No aneurysm. There are bilateral inguinal hernias. Left inguinal hernia contains a segment of nonobstructed colon. No bowel obstruction. Fatty infiltration of the liver. The spleen, pancreas, right adrenal gland and kidneys are unremarkab le. There is a 2.4 cm left adrenal myelolipoma. Gallbladder is present. There is a fat-containing umb ilical hernia. Moderate lumbar spondylosis. IMPRESSION: 1. No acute abdominal abnormality. 2: Bilateral inguinal hernias with left hernia containing nonobstructed colon. 3: Left adrenal myelolipoma measuring 2.4 cm. 4: Fat-containing umbilical hernia. Reviewed, dictated and finalized at location A. MILL OPERATOR
--- NOTE | ~2021-10-04 | XR_ITS ---
EXAMINATION: XR chest 1V portable DATE: 10/04/2021 13:00 INDICATION: Dizziness. TECHNIQUE: A single frontal view of the chest was obtained. COMPARISON: Chest single view 07/14/2014 FINDINGS: The chest demonstrates clear lungs without pneumonia, pleural effusion, or pneumothorax. Th e heart size is normal. There are suture anchors in right humeral head. IMPRESSION: 1. No acute cardiopulmonary disease. Reviewed, dictated and finalized at location A. NSED MORTGAGE LOAN OFFICER
--- NOTE | ~2021-10-04 | XR_ITS ---
EXAMINATION: XR tibia fibula RT 2V DATE: 10/04/2021 13:00 INDICATION: Right lower leg pain and edema. TECHNIQUE: 2 views of right tibia and fibula on 4 radiographs were obtained. COMPARISON: None. FINDINGS: Bone alignment is normal. No fracture. There is mild tricompartmental osteoarthritis of rig ht knee characterized by tiny osteophytes. No joint space narrowing. There is heterotopic ossificatio n distal to medial malleolus from old injury. There are enthesophytes at the posterior and plantar as pects of calcaneal tuberosity. IMPRESSION: 1. Mild right knee osteoarthritis. Reviewed, dictated and finalized at location A. ER BOSS
[2021-10-04 11:43] LABS: Glucose Point of Care 137 mg/dl (65-105)
--- NOTE | 2021-10-04 11:43 | ECG_ITS ---
Measurements Intervals [place] Rate: 65 P: 156 SC: 183 QRS: 169 QRSD: 108 T: 240 QT: 405 QTc: 422 Interpretive Statements SINUS RHYTHM WITH OCCASIONAL VENTRICULAR PREMATURE COMPLEXES ARM LEADS REVERSED NON-SPECIFIC ST SEGMENT ABNORMALITY NO PREVIOUS ECG AVAILABLE FOR COMPARISON Electronically Signed On 10-04-2021 12:33:15 INSTRUMENTATION DESIGNER by Bean Almanzar M.D.
[2021-10-04 11:45] VITALS: BP 142/74; PULSE 65; RESP 20; TEMP 36.3; O2SAT 97
[2021-10-04 12:11] LABS: Basophils Absolute Auto 0.04 K/mm3 (0.00-0.10); Basophils Percent Auto 0.4 % (0.0-1.0); Eosinophils Absolute Auto 0.09 K/mm3 (0.02-0.50); Hematocrit 39.2 % (40.0-54.0); Hemoglobin 13.4 g/dL (14.0-18.0); Immature Granulocyte Absolute 0.05 K/mm3 (0.00-0.00); Immature Granulocyte Percent A 0.6 % (0.0-0.0); Lymphocytes Absolute Auto 1.95 K/mm3 (1.10-4.50); Lymphocytes Percent Auto 21.8 % (18.0-42.0); Mean Corpuscular HGB Conc 34.2 g/dL (32.0-36.0); Mean Corpuscular Hemoglobin 34.1 pg (27.0-31.0); Mean Corpuscular Volume 99.7 fL (78.0-102.0); Mean Platelet Volume 10.1 fl (8.7-11.0); Monocytes Absolute Auto 0.84 K/mm3 (0.10-0.90); Monocytes Percent Auto 9.4 % (2.0-11.0); Neutrophils Percent Auto 66.8 % (50.0-70.0); Platelet Count Result 150 K/mm3 (150-420); Red Blood Count 3.93 M/mm3 (4.70-6.10); Red Cell Distribution Width 12.8 % (11.6-14.4); White Blood Count 8.9 K/mm3 (4.8-10.8)
[2021-10-04 12:31] LABS: Lactic Acid Reflex 1.2 mmol/L (0.4-2.0)
[2021-10-04] MEDS: SODIUM CHLORIDE 0.9% IV 500 ML 999 ML IV CONT (12:35)
[2021-10-04 12:36] LABS: Alanine Aminotransferase 48 U/L (16-63); Albumin Level 3.5 g/dL (3.4-5.0); Alkaline Phosphatase 84 U/L (46-116); Anion Gap 11 mmol/L (8-16); Aspartate Amino Transferase 39 U/L (15-37); Bilirubin,Total 0.8 mg/dL (0.00-1.00); Blood Urea Nitrogen 18 mg/dL (7-18); Calcium 9.9 mg/dL (8.5-10.1); Carbon Dioxide 26 mmol/L (21-32); Chloride 103 mmol/L (98-108); Estimated CRCL calculation 112 ml/min; Estimated Glomerular Filt Rate > 60; Ethanol < 3 mg/dL (0-6); Glucose 164 mg/dL (70-99); Osmolality Calculated 295 mOsm/kg (285-295); Potassium 3.7 mmol/L (3.5-5.1); Sodium 140 mmol/L (136-145); Troponin I 28.9 ng/L (0.00-60.4)
[2021-10-04 12:40] VITALS: BP 156/73; PULSE 64; RESP 20; O2SAT 98
[2021-10-04] MEDS: ONDANSETRON INJ 4 MG/2 ML VIAL (12:40)
[2021-10-04] MEDS: PANTOPRAZOLE SODIUM IV 40 MG VIAL (12:40)
[2021-10-04 12:56] LABS: Amphetamine Screen Urine Negative (Negative); Barbiturate Screen Urine Negative (Negative); Benzodiazepines Screen Urine Negative (Negative); Cannabinoid Screen Urine Negative (Negative); Cocaine Screen Urine Negative (Negative); Methadone Screen Urine Negative (Negative); Opiate Screen Urine Negative (Negative); Phencyclidine Screen Urine Negative (Negative)
[2021-10-04 13:30] VITALS: BP 153/78; PULSE 69; RESP 20; O2SAT 96
[2021-10-04] MEDS: MECLIZINE HCL 25 MG TABLET PO (13:57)
[2021-10-04 14:40] VITALS: BP 152/76; PULSE 63; RESP 20; O2SAT 97
--- NOTE | 2021-10-04 14:43 | PC.NURSE ---
1140 PT HERE TO WALK PT AND EVALUATE UNSTEADY GAIT
--- NOTE | 2021-10-04 15:20 | ED.DIZZY ---
HPI - Dizziness General Chief Complaint: Dizziness Stated Complaint: extremely dizzy from Sat Time Seen by Provider: 10/04/21 11:30 Source: patient, family and RN notes reviewed Mode of arrival: ambulatory Limitations: no limitations History of Present Illness MD elicited complaint: dizziness, lightheadedness, near syncope and difficulty walking Onset (ago): day(s) (3) Timing: gradual onset Severity: moderate Description: room spinning , lightheadedness, off-balance and difficulty walking History of similar symptoms: Yes Exacerbating factors: nothing Relieving factors: remaining still Associated symptoms: nausea and other (lower limb cellulitis) Associated neuro symptoms: limb weakness Stroke scale total: 1 Related Data Home Medications Medication Instructions Recorded Confirmed carvedilol 25 mg PO BID 05/25/20 10/04/21 multivitamin 1 tablet PO DAILY 02/10/21 10/04/21 clonidine HCl 0.1 mg PO BID 10/04/21 10/04/21 cyclobenzaprine 10 mg PO BID PRN 10/04/21 10/04/21 diclofenac sodium 75 mg PO BID PRN 10/04/21 10/04/21 ketoconazole 1 applic TOPICAL BID 10/04/21 10/04/21 losartan-hydrochlorothiazide 1 tablet PO DAILY 10/04/21 10/04/21 metformin 1,000 mg PO BID 10/04/21 10/04/21 pantoprazole 40 mg PO DAILY 10/04/21 10/04/21 rosuvastatin 20 mg PO DAILY 10/04/21 10/04/21 clopidogrel 75 mg tablet 75 mg PO DAILY 10/10/21 10/10/21 clopidogrel 75 mg tablet 75 mg PO DAILY tablet 10/10/21 Allergies Allergy/AdvReac Type Severity Reaction Status Date / Time Penicillins Allergy Intermediate Hives Verified 10/18/21 07:40 cephalexin AdvReac Intermediate Nausea Verified 10/18/21 07:40 hydrocodone [From [place]] AdvReac Intermediate Nausea and Verified 10/18/21 07:40 Vomiting Review of Systems Review of Systems: All systems reviewed & are unremarkable except as noted in HPI and below PMFSH Past Medical History Medical History Acid reflux Acute medial meniscus tear of left knee Benign paroxysmal positional vertigo Cellulitis Cellulitis of left leg Chronic back pain Degenerative arthritis of left knee JEWEL (generalized anxiety disorder) Heart murmur Sees Dr Meehan Hyperlipidemia Hypertension Knee pain, left Obesity Type 2 diabetes mellitus Ulcer Surgical History Surgical History H/O knee surgery Family History Family History Other Family history of malignant neoplasm Family history of type 2 diabetes mellitus Social History Social History Second hand tobacco smoke exposure: No Alcohol intake: current Drinks per week: 12 Alcohol use details: beer Substance use: never Substance use type: does not use Spiritual care concerns: No Exam Const: General: no acute distress and alert Nutritional Appearance: obese Orientation/consciousness: patient oriented x3 Limitations: no limitations HENMT: Head: normal to inspection Ears: TM's normal bilaterally and EAC's normal General nose exam: Normal external nose present and Normal nares present Face and sinus: normal facial exam and sinuses nontender Mouth: Yes lip normal and Yes moist mucous membranes Eyes: Conjunctivae: conjunctivae normal Pupils: Equal, round and reactive pupils present EOM: EOMs intact bilaterally Neck: Neck: normal visual inspection and no lymphadenopathy Other: supple Chest: Chest palpation & inspection: normal inspection of the chest Resp: Effort & Inspection: normal respiratory effort Auscultation: clear to auscultation bilaterally Cardio: Rate: regular rate Rhythm: regular rhythm GI: Auscultation: normal bowel sounds : General: Yes bladder normal to palpation and Yes no CVA tenderness Male General Exam: Yes normal external exam Testes: Testes normal Back/Spine/Pelvis: Back: no CVA ten
[2021-10-04 15:45] VITALS: BP 143/71; PULSE 64; RESP 20; TEMP 36.7; O2SAT 98
--- NOTE | 2021-10-04 16:24 | PCPTNOTE ---
patient to be DC'd from ER this date. patient will attend outpatient PT tomorrow for evaluation.
== END 2021-10-04 15:53 | disposition home or self-care (01) ==
PROVIDERS: Emergency Provider Emergency Medicine; PCP Family Medicine
DX: H81.10 Benign paroxysmal vertigo, unspecified ear (principal); R60.9 Edema, unspecified; L03.90 Cellulitis, unspecified; K21.9 Gastro-esophageal reflux disease without esophagitis; E78.5 Hyperlipidemia, unspecified; I10 Essential (primary) hypertension; E11.9 Type 2 diabetes mellitus without complications; Z79.899 Other long term (current) drug therapy
CPT/HCPCS: 36415; 70450; 71045; 73590; 74177; 80053; 80307; 82948; 83605; 84443; 84484; 85025; 93005; 93971; 96361; 96365; 96375; 97161; 99284; A9270; C9113; J0696; J2405; J7040; Q9967

== ENCOUNTER 2021-10-05 07:57 | Outpatient (RCR) | payer OTHER, SELFPAY ==
--- NOTE | 2021-10-05 08:57 | PTOPEVAL ---
Thank you for referring Jose Rutledge to [facility]. Please review, sign, date and return this plan of care DEZ. I agree with and certify that the following plan of care is medically necessary. Referring Physician Date Admitting Provider: Attending Provider: Sujey Funes MD Referring Provider: *PT Outpatient Evaluation Start: 10/05/21 08:00 Freq: Status: Active Protocol: Document 10/05/21 08:01 DANGELO (Rec: 10/05/21 08:56 DANGELO [id number]) Therapy Assessment Status Assessment Status Assessment Status Evaluation Outpatient Past Medical History Neurological History Hx Neurological Disorders No Significant History Cardiovascular History Hx Hypercholesterolemia Yes Hx Hypertension Yes Respiratory History Hx Respiratory Disorders No Significant History Gastrointestinal History Hx Appendectomy Yes Hx Gastroesophageal Reflux Disease Yes Hx Gastrointestinal Bleed Yes: Due to bleeding ulcers 2012 Hx Ulcer Yes Genitourinary History Hx Genitourinary Disorders No Significant History Musculoskeletal History Hx Back Pain Yes Hx Orthopedic Surgery Yes: RIGHT SHOULDER Hx Spinal Surgery Yes Hematological History Hx Blood Transfusions Yes Endocrine History Hx Diabetes Yes: takes metformin HEENT History Hx HEENT Disorders No Significant History Integumentary History Hx Psoriasis Yes: bilat thighs Reproductive History Hx Reproductive Disorders No Significant History Psychosocial History Hx Anxiety Yes Pain History Has Past Pain Affected Your Daily Life Yes History of Long-Term Prescription Pain Yes: oxycodone, tramadol... Medication Use (Opiates) stopped 8 years ago Anesthesia History Hx Anesthesia Reactions No Significant History Evaluation Information Problem Diagnosis decreased mobility, vertigo Onset 10/01/21 Subjective Information Pt. reports he woke up Query Text:As Reported By Patient/ Sunday feeling dizzy. He Family reports that he has been constantly dizzy ever since. He has been to two healthcare facilities and run through a large amount of testing with no results. He reports that he was provided meclizine for dizziness and does take BP medication. He reports that he did not take any meds this morning. He reports that his
== END 2021-10-05 15:02 | disposition home or self-care (01) ==
LOC: CHSPT 07:57
PROVIDERS: PCP Family Medicine; Visit Provider Emergency Medicine
DX: R42 Dizziness and giddiness (principal)
CPT/HCPCS: 97161

== ENCOUNTER 2021-10-05 11:39 | Outpatient (CLI) | payer OTHER, SELFPAY ==
--- NOTE | ~2021-10-05 | MR_ITS ---
EXAMINATION: MR brain/brain stem wo con DATE: 10/05/2021 12:39 INDICATION: Dizziness and giddiness. TECHNIQUE: Magnetic resonance imaging (MRI) of the brain and brainstem was performed without intraven ous contrast. Sequences included sagittal and axial T1-weighted FSE, axial diffusion-weighted FS EPI, axial T2*-weighted GRE, axial T2-weighted FLAIR Propeller, and axial T2-weighted Propeller. Apparent diffusion coefficient (ADC) maps were created. COMPARISON: Head CT 10/04/2021 FINDINGS: There is an acute infarct in left lateral medulla. There is a focus of increased T2-weighte d signal intensity in the right frontal lobe white matter, which is normal as an isolated finding. Th ere is no intracranial hemorrhage or abnormal mass lesion. The ventricles are normal in size. There i s mild mucosal thickening in the paranasal sinuses. The orbits are normal. The mastoid air cells are normal. IMPRESSION: 1. 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 Reviewed, dictated and finalized at location A. OGLYCERIN SUPERVISOR
== END 2021-10-05 11:40 | disposition home or self-care (01) ==
PROVIDERS: PCP Family Medicine; Visit Provider Family Medicine
DX: R42 Dizziness and giddiness (principal); I63.89 Other cerebral infarction
CPT/HCPCS: 70551

== ENCOUNTER 2021-10-10 08:03 | Outpatient (RCR) | payer OTHER, SELFPAY ==
--- NOTE | 2021-10-10 12:50 | PTOPEVAL ---
Thank you for referring Jose Rutledge to [facility].? The patient is scheduled to be seen for therapy? __2__x/week for 12 visits. Please review, sign, date and return this plan of care DEZ. I agree with and certify that the following plan of care is medically necessary. Referring Physician Date Admitting Provider: Attending Provider: UNKNOWN,DOCTOR Referring Provider: *PT Outpatient Evaluation Start: 10/10/21 12:30 Freq: Status: Active Protocol: Document 10/10/21 12:31 DANGELO (Rec: 10/10/21 12:47 DANGELO [id number]) Therapy Assessment Status Assessment Status Assessment Status Re-evaluation Outpatient Past Medical History Neurological History Hx Neurological Disorders No Significant History Cardiovascular History Hx Hypercholesterolemia Yes Hx Hypertension Yes Respiratory History Hx Respiratory Disorders No Significant History Gastrointestinal History Hx Appendectomy Yes Hx Gastroesophageal Reflux Disease Yes Hx Gastrointestinal Bleed Yes: Due to bleeding ulcers 2012 Hx Ulcer Yes Genitourinary History Hx Genitourinary Disorders No Significant History Musculoskeletal History Hx Back Pain Yes Hx Orthopedic Surgery Yes: RIGHT SHOULDER Hx Spinal Surgery Yes Hematological History Hx Blood Transfusions Yes Endocrine History Hx Diabetes Yes: takes metformin HEENT History Hx HEENT Disorders No Significant History Integumentary History Hx Psoriasis Yes: bilat thighs Reproductive History Hx Reproductive Disorders No Significant History Psychosocial History Hx Anxiety Yes Pain History Has Past Pain Affected Your Daily Life Yes History of Long-Term Prescription Pain Yes: oxycodone, tramadol... Medication Use (Opiates) stopped 8 years ago Anesthesia History Hx Anesthesia Reactions No Significant History Evaluation Information Problem Diagnosis CVA Onset 10/01/21 Subjective Information Pt. reports that after Query Text:As Reported By Patient/ entering therapy last week he Family visited with his doctor who ordered an MRI study. The study did reveal the pt. suffered a stroke. His current symptoms include LOB, chronic dizziness and weakness on the left side. Pt. states that he is currently using a walker for ambulation which has helped to keep him upright
--- NOTE | 2021-11-02 12:51 | PTOPEVAL ---
Thank you for referring Jose Rutledge to [facility] The patient is scheduled to be seen for therapy? __2__x/week for 4 visits. Please review, sign, date and return this plan of care DEZ. I agree with and certify that the following plan of care is medically necessary. Referring Physician Date Admitting Provider: Attending Provider: UNKNOWN,DOCTOR Referring Provider: *PT Outpatient Evaluation Start: 10/10/21 12:30 Freq: Status: Active Protocol: Document 11/02/21 12:39 DANGELO (Rec: 11/02/21 12:50 DANGELO [id number]) Therapy Assessment Status Assessment Status Assessment Status Progress Outpatient Past Medical History Neurological History Hx Neurological Disorders No Significant History Cardiovascular History Hx Hypercholesterolemia Yes Hx Hypertension Yes Respiratory History Hx Respiratory Disorders No Significant History Gastrointestinal History Hx Appendectomy Yes Hx Gastroesophageal Reflux Disease Yes Hx Gastrointestinal Bleed Yes: Due to bleeding ulcers 2012 Hx Ulcer Yes Genitourinary History Hx Genitourinary Disorders No Significant History Musculoskeletal History Hx Back Pain Yes Hx Orthopedic Surgery Yes: RIGHT SHOULDER Hx Spinal Surgery Yes Hematological History Hx Blood Transfusions Yes Endocrine History Hx Diabetes Yes: takes metformin HEENT History Hx HEENT Disorders No Significant History Integumentary History Hx Psoriasis Yes: bilat thighs Reproductive History Hx Reproductive Disorders No Significant History Psychosocial History Hx Anxiety Yes Pain History Has Past Pain Affected Your Daily Life Yes History of Long-Term Prescription Pain Yes: oxycodone, tramadol... Medication Use (Opiates) stopped 8 years ago Anesthesia History Hx Anesthesia Reactions No Significant History Evaluation Information Problem Subjective Information Pt. reports that he is doing Query Text:As Reported By Patient/ better since he last fell last Family week. He reports that he has transitioned back to his cane . He reports that while he is improved he continues to be off balance. Pt. has not yet returned to driving and is limited in community access due to remaining balance deficits. Pain Assessment Pain Scale Pain Scale Used Numeric (1 - 10) Self Report Pain Assessment Lower Back Reported Pain Level 6 Pain Score Pain Score
--- NOTE | 2021-11-21 14:31 | PTOPEVAL ---
Thank you for referring Jose Rutledge to [facility] The patient is scheduled to be seen for therapy? ____x/week for ___ weeks. Please review, sign, date and return this plan of care DEZ. I agree with and certify that the following plan of care is medically necessary. Referring Physician Date Admitting Provider: Attending Provider: UNKNOWN,DOCTOR Referring Provider: *PT Outpatient Evaluation Start: 10/10/21 12:30 Freq: Status: Active Protocol: Document 11/11/21 09:[address] [facility] (Rec: 11/18/21 21:[address] [facility] filej) Therapy Assessment Status Assessment Status Assessment Status Re-evaluation Outpatient Past Medical History Neurological History Hx Neurological Disorders No Significant History Cardiovascular History Hx Hypercholesterolemia Yes Hx Hypertension Yes Respiratory History Hx Respiratory Disorders No Significant History Gastrointestinal History Hx Appendectomy Yes Hx Gastroesophageal Reflux Disease Yes Hx Gastrointestinal Bleed Yes: Due to bleeding ulcers 2012 Hx Ulcer Yes Genitourinary History Hx Genitourinary Disorders No Significant History Musculoskeletal History Hx Back Pain Yes Hx Orthopedic Surgery Yes: RIGHT SHOULDER Hx Spinal Surgery Yes Hematological History Hx Blood Transfusions Yes Endocrine History Hx Diabetes Yes: takes metformin HEENT History Hx HEENT Disorders No Significant History Integumentary History Hx Psoriasis Yes: bilat thighs Reproductive History Hx Reproductive Disorders No Significant History Psychosocial History Hx Anxiety Yes Pain History Has Past Pain Affected Your Daily Life Yes History of Long-Term Prescription Pain Yes: oxycodone, tramadol... Medication Use (Opiates) stopped 8 years ago Anesthesia History Hx Anesthesia Reactions No Significant History Evaluation Information Problem Diagnosis CVA, lower back pain Onset 10/01/21 Subjective Information mr. rutledge reports he is improved Query Text:As Reported By Patient/ in his balance and ambulation Family since CVA. he has had a bout of falling in the shower during his time in therapy, but is back to feeling more stable. he reports he still notices the greatest balance deficits with eyes closed and bending forward. he reports he continues to having pain in the lower back that limits his
== END 2021-12-07 11:42 | disposition home or self-care (01) ==
LOC: CHSPT 08:03
PROVIDERS: PCP Family Medicine; Visit Provider Family Medicine
DX: R53.1 Weakness (principal); R26.2 Difficulty in walking, not elsewhere classified; M54.50 Low back pain, unspecified
CPT/HCPCS: 97014; 97110; 97112; 97140; 97530; G0283

== ENCOUNTER 2021-10-18 10:58 | Outpatient (CLI) | payer OTHER, SELFPAY ==
--- NOTE | ~2021-10-18 | US_ITS ---
EXAMINATION: US venous doppler LE RT DATE: 10/18/2021 11:21 INDICATION: Other specified soft tissue disorders. TECHNIQUE: Grayscale ultrasound images without and with compression and Doppler ultrasound images of the right lower extremity veins were obtained. COMPARISON: Ultrasound 10/04/2021 FINDINGS: The visualized portions of right common femoral vein, profunda (deep) femoral vein, femoral vein, pop liteal vein, peroneal veins, posterior tibial veins, and greater saphenous vein outflow are patent. IMPRESSION: 1. No deep venous thrombosis. Reviewed, dictated and finalized at location A.
== END 2021-10-18 10:59 | disposition home or self-care (01) ==
LOC: CHSIMG 11:00
PROVIDERS: PCP Family Medicine; Visit Provider Family Medicine
DX: M79.89 Other specified soft tissue disorders (principal)
CPT/HCPCS: 93971

== ENCOUNTER 2021-11-13 07:31 | Outpatient (CLI) | payer OTHER, SELFPAY ==
--- NOTE | ~2021-11-13 | MR_ITS ---
EXAMINATION: MR lumbar spine wo/w con EXAM DATE: 11/13/2021 08:57 INDICATION: M54.41 - Lumbago with sciatica, right side. TECHNIQUE: Multi-sequential, multiplanar MR images of the lumbar spine were obtained without contrast . Sagittal T1, T2, T2 fat saturation images. Axial T2 weighted images. Axial T1 weighted sequence. Patient was then injected with 20 mL Multihance intravenous contrast and reimaged. Postcontrast axi al and sagittal T1-weighted fat saturation sequences were obtained. There are no prior studies for co mparison. FINDINGS: Mild diffuse loss of thoracolumbar vertebral body heights, with edema at the L2-3 endplates along their left side, endplates have mild subacute compression fractures. This is along the concave side of mild dextroscoliosis. There is moderate L4-5 disc disease, moderate to severe at the other l umbar levels. The conus medullaris terminates at the L1 level and has normal signal intensity and mor phology. There is 2 mm retrolisthesis L1 on L2, L2 on L3, L3 on L4, 4 mm retrolisthesis L5 on S1. Th ere is mild enhancement at the subacute L2-3 compression fractures and in the left neural foramina at that level. No epidural abscess. Level by level evaluation: T12-L1: Disc does not extend beyond the endplate margin. Facet arthropathy: Mild. Neural foraminal stenosis: No stenosis. Central canal stenosis: No stenosis. L1-L2: There is a moderate diffuse disc bulge. Superimposed right central small to moderate-sized pro trusion narrowing the right lateral recess. Facet arthropathy: Mild. Neural foraminal stenosis: No stenosis. Central canal stenosis: Moderate. Nerve root crowding. L2-L3: There is a moderate to large diffuse disc bulge. Facet arthropathy: Moderate. Neural foraminal stenosis: Moderate left, mild right. Central canal stenosis: Moderate, nerve root crowding. L3-L4: There is a moderate diffuse disc bulge. Facet arthropathy: Moderate to severe. Neural foraminal stenosis: Moderate left, mild to moderate right. Central canal stenosis: Laminectomies, posterior decompression. L4-L5: There is a moderate diffuse disc bulge. Facet arthropathy: Moderate to severe. Neural foraminal stenosis: Moderate bilateral. Central canal stenosis: Mild. Laminectomies, posterior decompression. L5-S1: There is a moderate to large diffuse disc bulge. Facet arthropathy: Moderate to severe. Neural foraminal stenosis: Moderate to severe bilateral. Central canal stenosis: Mild to moderate, laminectomies, posterior decompression. IMPRESSION: 1. Subacute appearing mild compression fractures L2-3 endplates. 2. Moderate to severe lumbar spondylosis as detailed above. 3. Mild dextroscoliosis. Reviewed, dictated and finalized at location B.
[2021-11-13 08:18] LABS: Estimated Glomerular Filt Rate > 60
== END 2021-11-13 07:32 | disposition home or self-care (01) ==
LOC: ANHIMG 07:35
PROVIDERS: PCP Family Medicine; Visit Provider Family Medicine
DX: M54.41 Lumbago with sciatica, right side (principal); G89.29 Other chronic pain; M47.896 Other spondylosis, lumbar region; S32.020A Wedge compression fracture of second lumbar vertebra, initial encounter for closed fracture; X58.XXXA Exposure to other specified factors, initial encounter
CPT/HCPCS: 72158; A9577

== ENCOUNTER 2022-01-23 09:37 | Outpatient (CLI) | payer OTHER, SELFPAY ==
--- NOTE | ~2022-01-23 | XR_ITS ---
EXAMINATION: XR shoulder RT min 2V DATE: 01/23/2022 09:53 INDICATION: Right shoulder pain. Injury. TECHNIQUE: 5 views of right shoulder were obtained. COMPARISON: Right shoulder radiographs 10/08/2007 FINDINGS: Bone alignment is normal. No fracture. There is mild osteoarthritis of glenohumeral joint. There are likely changes of distal clavicle resection. There are suture anchors in humeral head. IMPRESSION: 1. Mild glenohumeral joint osteoarthritis. Reviewed, dictated and finalized at location A.
== END 2022-01-23 09:38 | disposition home or self-care (01) ==
LOC: CHSIMG 09:38
PROVIDERS: PCP Family Medicine; Visit Provider Orthopaedic Surgery
DX: M25.511 Pain in right shoulder (principal)
CPT/HCPCS: 73030

== ENCOUNTER 2022-02-09 08:52 | Outpatient (RCR) | payer OTHER, SELFPAY ==
--- NOTE | 2022-02-09 10:06 | PTOPEVAL ---
Thank you for referring Jose Rutledge to [facility]. Please review, sign, date and return this plan of care DEZ. I agree with and certify that the following plan of care is medically necessary. Referring Physician Date Admitting Provider: Attending Provider: KATHARINE YEAGER Referring Provider: *PT Outpatient Evaluation Start: 02/09/22 08:58 Freq: Status: Active Protocol: Document 02/09/22 08:59 DANGELO (Rec: 02/09/22 10:05 DANGELO [id number]) Therapy Assessment Status Assessment Status Assessment Status Evaluation Outpatient Past Medical History Neurological History Hx Neurological Disorders No Significant History Cardiovascular History Hx Hypercholesterolemia Yes Hx Hypertension Yes Respiratory History Hx Respiratory Disorders No Significant History Gastrointestinal History Hx Appendectomy Yes Hx Gastroesophageal Reflux Disease Yes Hx Gastrointestinal Bleed Yes: Due to bleeding ulcers 2012 Hx Ulcer Yes Genitourinary History Hx Genitourinary Disorders No Significant History Musculoskeletal History Hx Back Pain Yes Hx Orthopedic Surgery Yes: RIGHT SHOULDER Hx Spinal Surgery Yes Hematological History Hx Blood Transfusions Yes Endocrine History Hx Diabetes Yes: takes metformin HEENT History Hx HEENT Disorders No Significant History Integumentary History Hx Psoriasis Yes: bilat thighs Reproductive History Hx Reproductive Disorders No Significant History Psychosocial History Hx Anxiety Yes Pain History Has Past Pain Affected Your Daily Life Yes History of Long-Term Prescription Pain Yes: oxycodone, tramadol... Medication Use (Opiates) stopped 8 years ago Anesthesia History Hx Anesthesia Reactions No Significant History Evaluation Information Problem Diagnosis CVA Onset 10/01/21 Subjective Information Pt. reports that he returned Query Text:As Reported By Patient/ to his neurologist who Family suggested he return to therapy due to weakness. He reports that he will be undergoing back surgery on 02/28/22. He states that he is not really noticing any weakness, but states that he gets tired really quick. He reports that he does have frequent pain and numbness into the right leg that he associates with
== END 2022-02-09 14:54 | disposition home or self-care (01) ==
LOC: CHSPT 08:52
DX: I67.9 Cerebrovascular disease, unspecified (principal); Z86.73 Personal history of transient ischemic attack (TIA), and cerebral infarction without residual deficits
CPT/HCPCS: 97110; 97161

== ENCOUNTER → 2022-02-11 08:43 | Outpatient (CLI) | payer OTHER, SELFPAY ==
--- NOTE | ~2022-02-11 | MR_ITS ---
EXAMINATION: MR shoulder LT wo con DATE: 02/11/2022 10:01 INDICATION: Anterior left shoulder pain TECHNIQUE: Magnetic resonance imaging (MRI) of the left shoulder was performed without intravenous co ntrast. Sequences included axial PD-weighted FS FSE, coronal oblique PD-weighted FS FSE, coronal obli que T2-weighted FS FSE, sagittal PD-weighted FS FSE, and sagittal T1-weighted SE. COMPARISON: None. FINDINGS: Coracoacromial arch: The acromion undersurface is curved in morphology (type II). Small subacromial spurs and mild thicken ing of the coracoacromial ligament at its acromial insertion. Moderate to severe acromioclavicular os teoarthritis with inferior directed osteophytes at the head of the clavicle which contacts the underl marilin supraspinatus muscle and tendon with effacement of the intervening fat plane. Rotator cuff: Full-thickness rotator cuff tear involving the entire superior facet footplate of the supraspinatus t endon and the anterior two thirds of the middle facet footplate of the infraspinatus tendon. There is moderate tendinopathy of the torn infraspinatus tendon and mild tendinopathy of the retracted torn s upraspinatus tendon margin which is located slightly medial to the level of the rim of the glenoid. T he tear defect measures approximately 7 cm medial to lateral and 3.5 cm anteroposteriorly at the leve l of the acromion. The teres minor tendon is normal. Moderate distal subscapularis tendinopathy with small region of focal increased signal of less than fluid intensity but with architectural distortion of the tendon fibers suggesting a very small partial-thickness central intrasubstance tear along the lesser tuberosity footplate. There is medial retraction of both the supraspinatus and infraspinatus muscle bellies with at least mild fatty atrophy of the visualized portion of the supraspinatus and mo derate fatty atrophy of the infraspinatus. Biceps tendon, glenoid labrum and glenohumeral cartilage: Severe tendinopathy with both longitudinal split tearing and likely mild partial thickness tearing ce ntered at the junction of the intra-articular and extra articular portion of the long head biceps ten don. There is irregular degenerative tearing at the posterior superior glenoid labrum. Partial-thickn ess cartilage loss along the inferomedial aspect of the humeral head with smooth chondral surface. Sm all marginal osteophytes along both the inferomedial humeral head and inferior glenoid. Fluid: Small glenohumeral joint effusion which extends through the full-thickness rotator cuff tear into the subacromial/subdeltoid and subcoracoid bursae. Mild bicipital tenosynovitis. No loose osteochondral bodies. Bones: Normal marrow signal with no fracture or pathologic marrow replacing process. IMPRESSION: 1. Large full-thickness rotator cuff tear involving the entire supraspinatus and anterior two thirds of the infraspinatus tendon along the greater tuberosity insertion. 2. Moderate subscapularis tendinopathy with suggestion of a small partial-thickness intrasubstance te ar at its lesser tuberosity insertion. 3. Mild glenohumeral osteoarthritis with degenerative tearing at the posterior superior glenoid labru m. 4. Severe tendinopathy of the long head biceps tendon with both longitudinal split tearing and mild p artial-thickness tearing. 5. Moderate to severe acromioclavicular osteoarthritis. Reviewed, dictated and finalized at location B. IMPRESSION: 1. Large full-thickness rotator cuff tear involving the entire supraspinatus an d anterior two thirds of the infraspinatus tendon along the greater tuberosity insertion. 2. Moderate subscapularis tendinopathy with suggestion of a small partial-thick ness intrasubstance tear at its lesser tubero
--- NOTE | ~2022-02-11 | XR_ITS ---
XR hip RT min 3V w AP pelvis 02/11/2022 10:04 Indication: Right hip pain Procedure: 3 views right hip Comparison: No prior studies for comparison. Findings: There is moderate osteoarthritis of the right hip. No fracture, subluxation or dislocation. There is moderate osteoarthritis of the left hip. Pelvic structures are unremarkable. Pelvic rings i ntact. Sacral foramen are symmetric. There is lower lumbar spondylosis. Impression: 1: Moderate bilateral osteoarthritis of the hips, right greater than left. Reviewed, dictated and finalized at location A. Impression: 1: Moderate bilateral osteoarthritis of the hips, right greater than left.
--- NOTE | ~2022-02-11 | MR_ITS ---
EXAMINATION: MR shoulder RT wo con DATE: 02/11/2022 09:50 INDICATION: Anterior right shoulder pain. TECHNIQUE: Magnetic resonance imaging (MRI) of the right shoulder was performed without intravenous c ontrast. Sequences included axial PD-weighted FS FSE, coronal oblique PD-weighted FS FSE, coronal obl ique T2-weighted FS FSE, sagittal PD-weighted FS FSE, and sagittal T1-weighted SE. COMPARISON: Right shoulder radiographs dated 01/23/2022 FINDINGS: Coracoacromial arch: Expected appearance post acromioplasty and distal clavicle resection. No narrowing of the subacromial space. Rotator cuff: There is prominent metallic magnetic field artifact centered along the greater tuberosity correspondi ng to 3 suture anchors for prior rotator cuff repair seen on the prior radiographs. This obscures the adjacent bone and soft tissues including portions of the central deltoid muscle and the distal aspec t of the rotator cuff tendons. Moderate supraspinatus and infraspinatus tendinopathy. There is a part ial-thickness infraspinatus tear involving one third to one half of the articular side of the tendon. The lateral side of the tear is obscured by the magnetic field artifact. The medial tear margin can be seen extending across the apex of the humeral head where it transitions into the tear of the conjo ined portion of the supraspinatus and infraspinatus tendons and where there is a small full-thickness component with tear involving 4 mm AP width of the bursa side of the tendon. Mild supraspinatus and teres minor tendinopathy without discrete tear. The lesser tuberosity insertion of the subscapularis tendon is however partially obscured by the magnetic field artifact. Mild fatty atrophy of the infras pinatus muscle belly. Biceps tendon, glenoid labrum and glenohumeral cartilage: There is at least mild tendinopathy of the intra-articular long head biceps tendon near the exit from the intertubercular groove where the tendon is obscured by the magnetic field artifact.. Alverda comp kimmy with absent anterosuperior glenoid labrum and thickened cordlike middle glenohumeral ligament. Th ere is degenerative tearing of the labrum extending from the 1:00 position anteriorly across the post erior superior to the 7:00 position of the posterior inferior labrum. There are small marginal osteop hytes extending into the base of the inferior labrum. Diffuse partial thickness cartilage loss along the glenoid with smooth chondral surface and without degenerative subchondral changes. Small marginal osteophytes along the inferomedial aspect of the humeral head. The non-obscured cartilage along the humeral head appears normal. Fluid: Small glenohumeral joint effusion with fluid extending through the full-thickness rotator cuff tear w ith additional small amount of fluid in the subacromial/subdeltoid bursa. No loose osteochondral bodi es. Bones: Normal marrow signal with no fracture or pathologic marrow replacing process. Postoperative changes a t the acromion and distal clavicle as detailed above. Residual small corticated ossicle along the joseph grupo margin of the fascial plane extending between the acromion and the remaining lateral clavicle. IMPRESSION: 1. Postoperative change of prior acromioplasty and distal clavicle resection. 2. Metallic magnetic field artifact related to suture anchors for prior rotator cuff repair obscured the greater tuberosity and region of the distal tendons. 3. Moderate supraspinatus and infraspinatus tendinopathy with partial-thickness articular sided tear of the infraspinatus tendon with small full-thickness component at the conjoined portion of the supra spinatus and infraspinatus tendons. 4. Mild glenohumeral osteoarthritis with extensive degenerative tearing of the posterior superior renetta f of the labrum. Incidentally noted is normal anatomic variant Alverda complex with absent anterosuper io
== END ==
PROVIDERS: PCP Family Medicine; Visit Provider Orthopaedic Surgery
DX: M75.122 Complete rotator cuff tear or rupture of left shoulder, not specified as traumatic (principal); M66.311 Spontaneous rupture of flexor tendons, right shoulder; M19.011 Primary osteoarthritis, right shoulder; M19.012 Primary osteoarthritis, left shoulder; M16.0 Bilateral primary osteoarthritis of hip
CPT/HCPCS: 73221; 73502

== ENCOUNTER 2022-02-22 09:08 | Outpatient (CLI) | payer OTHER, SELFPAY ==
[2022-02-22 10:02] LABS: Anion Gap 9 mmol/L (8-16); Blood Urea Nitrogen 10 mg/dL (9-20); Carbon Dioxide 24 mmol/L (22-30); Chloride 108 mmol/L (98-107); Estimated Glomerular Filt Rate > 60; Glucose 113 mg/dL (65-110); Potassium 3.9 mmol/L (3.4-5.0); Sodium 141 mmol/L (137-145)
== END 2022-02-22 09:09 | disposition home or self-care (01) ==
PROVIDERS: Anesthesiology; PCP Family Medicine; Visit Provider Neurological Surgery
DX: G89.29 Other chronic pain (principal); M54.41 Lumbago with sciatica, right side; T50.2X5A Adverse effect of carbonic-anhydrase inhibitors, benzothiadiazides and other diuretics, initial encounter
CPT/HCPCS: 36415; 80048; 86850; 86900; 86901

== ENCOUNTER 2022-02-28 00:11 | Day surgery (SDC) | payer OTHER, SELFPAY ==
[2022-02-20 13:54] VITALS: BMI 33.2
--- NOTE | 2022-02-20 14:04 | PC.NURSE ---
Report to the Outpatient Waiting Room, entrance under the green pavilion located off [facility], at time _09:30AM_ on date _02-28-22_. OR Time: __11:30AM___. - You and your visitor will be asked a series of questions to screen for COVID 19 for your protection. - Only one visitor is allowed at this time. - The patient visitor is requested to leave or wait in car when not with patient. - A mask is required within the hospital. Patients may have clear liquids (water, carbonated beverages, clear teas, apple juice) until 3 hours prior to surgery with a maximum of 20 ounces. - No food from midnight until time of surgery. Take the following medications with a SIP of water the morning of surgery: AMLODIPINE, CARVEDILOL Medications to discontinue per physician VITAMINS Date to take last vfik [id number] Please no make-up, nail dominican, hairspray, perfume, deodorant, or body powder the day of surgery. No jewelry (including any body piercings) or valuables the day of surgery, leave them at home. Please take a shower or bath the night before, or the morning of, surgery with an antibacterial soap. Wear comfortable, loose fitting clothing. - Jewelry must be removed prior to entering the operating room. Rings and piercings that are not removed may be cut off. - The hospital will not accept responsibility for valuables. - Please leave all valuables, including medications, at home the day of surgery. If you are going home after surgery, a licensed cdl team truck driver must drive you home. - NO public transportation without another adult. - We recommend that an adult stay with you for 24 hours following discharge. - We also recommend that you do not drive, make important decision, drink alcoholic beverages, or take any drugs that were not prescribed by your health care provider for at least 24 hours after your discharge time. Follow any additional instructions given to you from your surgeon. If you or anyone in your household have experienced Covid symptoms in the past week, please notify your surgeon or the nurse liaison at the phone number below for possible testing. Telephone instructions given to ___PATIENT and asked if any additional questions and then verbalized understanding. Patient advised to call surgeon office or pre surgery nurse liaison [phone] if any additional questions.
--- NOTE | 2022-02-27 14:07 | WPDANESEPPF ---
Anes - Initial Pre Proc Eval Procedure: Operation Date: 02/28/22 11:30 Proposed Procedures p Right L1-2 Microscopic Lumbar Discectomy, Right L2-3 Hemilaminectomy and Right L5-S1 Far Lateral Micro Lumbar Discectomy - Jasper Figueroa MD Date/Time: 02/27/22 14:07 Surgeon: Jasper Figueroa MD Pre Op Diagnosis: Lumbar Stenosis, Lumbar Disc Herniation Patient Data Age: 56 Gender: M Height: 1.83 m Weight: 111 kg Allergies Allergy/AdvReac Type Severity Reaction Status Date / Time Penicillins Allergy Intermediate Hives Verified 02/28/22 09:25 cephalexin AdvReac Intermediate Nausea Verified 02/28/22 09:25 hydrocodone [From [place]] AdvReac Intermediate Nausea and Verified 02/28/22 09:25 Vomiting Home Medications Medication Instructions Recorded Confirmed Type multivitamin 1 tablet PO DAILY 02/10/21 02/28/22 History betamethasone dipropionate 0.05 % 1 applic topical BID #45 grams 10/10/21 02/28/22 Rx topical ointment carvedilol 25 mg tablet 25 mg PO BID #180 tabs 12/06/21 02/28/22 Rx clonidine HCl 0.1 mg tablet 0.1 mg PO BID #180 tabs 12/06/21 02/28/22 Rx dulaglutide 1.5 mg/0.5 mL 1.5 mg (0.5 mL) subcut WEEKLY 90 12/06/21 02/28/22 Rx subcutaneous pen injector days #6.5 mL (Trulicity) losartan 100 1 tablet PO DAILY #90 tabs 12/06/21 02/28/22 Rx mg-hydrochlorothiazide 12.5 mg tablet metformin 1,000 mg tablet 1,000 mg PO BID #180 tabs 12/06/21 02/28/22 Rx rosuvastatin 20 mg tablet 20 mg PO DAILY #90 tabs 12/06/21 02/28/22 Rx amlodipine 5 mg tablet 5 mg PO DAILY 12/09/21 02/28/22 History diclofenac sodium 75 mg 75 mg PO BID PRN Pain 02/20/22 02/28/22 History tablet,delayed release Patient hx anesthesia problems: none Family hx anesthesia problems: none Results Review: All pre-operative results and documents have been reviewed as part of the pre-operative evaluation. [facility] Past Medical History Medical History (Updated 02/27/22 @ 14:09 by Antony Fairchild MD) Acid reflux Acute medial meniscus tear of left knee Benign paroxysmal positional vertigo Cellulitis Chronic back pain Complete rotator cuff tear of left shoulder CVA, old, ataxia Degenerative arthritis of left knee Diabetes Dizziness JEWEL (generalized anxiety disorder) Heart beat abnormality Heart murmur Sees Dr Meehan History of dental problems Hyperlipidemia Hypertension Nontraumatic rupture of long head of biceps tendon of right shoulder Obesity Psoriasis Restless legs syndrome (RLS) Sleep apnea Stroke Type 2 diabetes mellitus Ulcer Wears glasses Surgical History Surgical History (Updated 01/23/22 @ 14:04 by Romelia Bright) H/O knee surgery 2020 Dr. Crowley Family History Family History Mother Family history of dementia Cerebrovascular accident Family history of malignant neoplasm Father Family history of malignant neoplasm Other Diabetes mellitus Family history of arthritis Family history of cardiovascular disease Family history of type 2 diabetes mellitus Hypertension Social History Social History Smoking status: Never smoker Second hand tobacco smoke exposure: Yes Alcohol intake: former Drinks per week: 12 Alcohol use details: QUIT DRINKING SEP 2021 Substance use: never Substance use type: does not use Living arrangements: with family Spiritual care concerns: No Anes - Eval Final PreProcedure Day of Procedure 02/27/22 14:07 Patient weight: obese Heart: regular rate and rhythm Lungs: clear to auscultation and normal air movement Airway: Mallampati scale class III Neurological: alert and oriented Last oral intake: >/= 8 hours ASA classification: III Emergent: no Anesthetic plan: proceed Anesthesia type and monitoring: general ETT and standard monitoring Results Review: All pre-operative results and documents have been reviewed as part
[2022-02-28] VITALS (10 sets, daily range): BP systolic 119–163; BP diastolic 69–94; PULSE 72–85; RESP 12–18; TEMP 36.5–37.1; O2SAT 95–100
--- NOTE | ~2022-02-28 | XR_ITS ---
EXAMINATION: XR fluoroscopy no charge DATE: 02/28/2022 12:00 CDT INDICATION: RIGHT L1-L2 MICRO DISC, RT L2-L3 HEMILAMI, RT L5-S1 FAR LAT . TECHNIQUE: 3 fluoroscopic images of the lumbar spine were obtained during microdiscectomy and hemilam inectomy performed by the surgeon. I was not present in the operating room. Fluoroscopy exposure time was 2.4 seconds. Cumulative dose was 1.98 mGy. COMPARISON: None FINDINGS: Surgical instruments identify the spinous processes of the L2 and L5 vertebral bodies. Multilevel sev ere degenerative disc change in the lumbar spine. IMPRESSION: Fluoroscopic documentation of microdiscectomy and hemilaminectomy. Please refer to the operative note for complete procedural details . Reviewed, dictated and finalized at location K.
[2022-02-28] MEDS: LACTATED RINGERS 1,000 ML 30 ML IV CONT ×2 (09:37→14:11)
[2022-02-28 09:42] LABS: Glucose Point of Care 109 mg/dl (65-105)
--- NOTE | 2022-02-28 11:07 | PM.IMHP ---
H&P: HPI History of Present Illness Date/Time: 02/28/22 11:07 Chief Complaint: Back and right leg pain Narrative: Jose is a 56-year-old gentleman with back and right lower extremity pain related to herniated disc at L1-2, lateral recess stenosis at L2-3 and foraminal stenosis at L5-S1 and presents for simple decompression at these levels. He has not changed appreciably since we saw him last. His pain continues and is limiting and distracting for him daily. He does not have specific muscle group weakness. He does not have specific dermatomal numbness of the static nature. He is not having bowel or bladder incontinence. Review of Systems Review of Systems: Patient denies shortness of breath, cough, fever, chills, nausea, vomiting, weight loss, weight gain, chest pain. He has back and leg pain as above. He has back stiffness. Is otherwise negative on 12 systems. [facility] Past Medical History Medical History Acid reflux Acute medial meniscus tear of left knee Benign paroxysmal positional vertigo Cellulitis Chronic back pain Complete rotator cuff tear of left shoulder CVA, old, ataxia Degenerative arthritis of left knee Diabetes Dizziness JEWEL (generalized anxiety disorder) Heart beat abnormality Heart murmur Sees Dr Meehan History of dental problems Hyperlipidemia Hypertension Nontraumatic rupture of long head of biceps tendon of right shoulder Obesity Psoriasis Restless legs syndrome (RLS) Sleep apnea Stroke Type 2 diabetes mellitus Ulcer Wears glasses Surgical History Surgical History H/O knee surgery 2020 Dr. Crowley Family History Family History Mother Family history of dementia Cerebrovascular accident Family history of malignant neoplasm Father Family history of malignant neoplasm Other Diabetes mellitus Family history of arthritis Family history of cardiovascular disease Family history of type 2 diabetes mellitus Hypertension Social History Social History Smoking status: Never smoker Second hand tobacco smoke exposure: Yes Alcohol intake: former Drinks per week: 12 Alcohol use details: QUIT DRINKING SEP 2021 Substance use: never Substance use type: does not use Living arrangements: with family Spiritual care concerns: No Meds Home Medications and Allergies Home Medications Medication Instructions Recorded Confirmed Type multivitamin 1 tablet PO DAILY 02/10/21 02/28/22 History betamethasone dipropionate 0.05 % 1 applic topical BID #45 grams 10/10/21 02/28/22 Rx topical ointment carvedilol 25 mg tablet 25 mg PO BID #180 tabs 12/06/21 02/28/22 Rx clonidine HCl 0.1 mg tablet 0.1 mg PO BID #180 tabs 12/06/21 02/28/22 Rx dulaglutide 1.5 mg/0.5 mL 1.5 mg (0.5 mL) subcut WEEKLY 90 12/06/21 02/28/22 Rx subcutaneous pen injector days #6.5 mL (Trulicity) losartan 100 1 tablet PO DAILY #90 tabs 12/06/21 02/28/22 Rx mg-hydrochlorothiazide 12.5 mg tablet metformin 1,000 mg tablet 1,000 mg PO BID #180 tabs 12/06/21 02/28/22 Rx rosuvastatin 20 mg tablet 20 mg PO DAILY #90 tabs 12/06/21 02/28/22 Rx amlodipine 5 mg tablet 5 mg PO DAILY 12/09/21 02/28/22 History diclofenac sodium 75 mg 75 mg PO BID PRN Pain 02/20/22 02/28/22 History tablet,delayed release Allergies Allergy/AdvReac Type Severity Reaction Status Date / Time Penicillins Allergy Intermediate Hives Verified 02/28/22 09:25 cephalexin AdvReac Intermediate Nausea Verified 02/28/22 09:25 hydrocodone [From [place]] AdvReac Intermediate Nausea and Verified 02/28/22 09:25 Vomiting Vital Signs Vital Signs - 24 hr 02/28/22 09:45 Temperature 98.7 F Pulse Rate 72 Respiratory Rate 18 Blood Pressure 130/77 Pulse Oximetry 98 Oxygen Delivery Room Air Exam
--- NOTE | 2022-02-28 11:11 | WPDHPUPDATE1 ---
History and Physical Update Update Date/Time: 02/28/22 11:11 History and Physical has been reviewed, including an updated exam of the patient. There are NO changes in the patient's condition. Risks, benefits, and alternatives have been discussed and questions answered. Patient agrees to proceed with procedure.
[2022-02-28] MEDS: CLINDAMYCIN 900 MG/D5W 50 ML 900 MG/50 ML PIGGYBACK 50 MG IVPB (11:42)
[2022-02-28] MEDS: LIDO 1%/EPINEPHRINE 1:100,000 20 ML VIAL 10 ML INFILTRATE (12:14)
--- NOTE | 2022-02-28 13:57 | W.PM.PROC2 ---
Procedure Note - Detailed Date of Procedure 02/28/22 Pre-op Diagnosis Lumbar Stenosis, Lumbar Disc Herniation Post-op Diagnosis Same Procedure Performed Right L1-2 microscopic lumbar diskectomy right L2-3 hemilaminectomy right L5-S1 far lateral foraminotomy and microdiskectomy Surgeon Jasper Figueroa MD Senior Living Advisor Chandan Garcia is a 56-year-old gentleman with back and leg pain related to the neuro compressive pathology described above presents for decompression. Findings Disc herniation, calcified. L5-S1 foraminal disc herniation. L2-3 stenosis Description of Procedure The patient was brought to the operating room in the supine position, was sedated, intubated and placed under general anesthesia in routine fashion. He was then turned into the prone position on a Lux frame. The operation on his back was examined, marked for incision, prepped and draped in routine sterile fashion. Incision was marked over the L1 through S1 spinous processes in the midline. This area was injected with 0.5% lidocaine with [id number] epinephrine. Intravenous antibiotics given prior to incision. Incision was made with a 10 blade scalpel down to the lumbodorsal fascia. A subperiosteal dissection of the muscle soft tissue away from spinous process and lamina at L1 and L2 as well as on the lateral mass at L5-S1 was performed subperiosteal elevator and Bovie cautery. A verifying x-rays obtained to verify the level of operation. At L1-2 and L2-3 a Midas Adarsh drill was used to perform a hemilaminectomy and medial facetectomy. At L5-S1 lateral resection of the pars and facets was performed with a Midas-Adarsh drill until the soft contents of the foramen were encountered. Under microscopy the yellow ligament was lifted in all 3 locations and removed using Kerrison punches. At L2-3 the lamina and spinous process were undercut using the drill and Kerrison punches interference used to define a plane with the overgrown bone and ligament and then removed it. At L1-2 thecal sac was retracted medially exposing subligamentous disc herniation below. The ligament was entered using an 11 blade scalpel. An Nando curette and curved curettes and Huang rongeur were used to push free and removed fragments of soft and calcified herniated disc from beneath the nerve. This was done with some difficulty as much of the disc was calcified and adherent to the underside of the dura. This was done until a nerve hook could be placed in the ventral epidural space as well as above and below the nerve root to confirm lack of compression. At L5-S1 after the yellow ligament was removed the nerve root was identified. It was seen to be compressed by hard and soft disc herniation below. The ligament was entered using an 11 blade scalpel. An Nando curette curved curette and Huang rongeur were used to push through and removed fragments of hard and soft disc herniation from beneath the nerve. A limited bony foraminotomy was performed using a [employer] Adarsh drill Kerrison punches and curved curettes. These maneuvers were performed until a nerve hook could be placed proximally distally above and below the nerve to confirm lack of compression. The wound was then copiously irrigated with bacitracin irrigation all bleeding was stopped with bipolar, Bovie cautery and Gelfoam thrombin powder. The wound was then closed in layered fashion with 2-0 Vicryl interrupted sutures in the lumbodorsal fascia and García's layer. 3-0 Vicryl buried interrupted sutures were placed in the dermis and the skin was closed with a running 4-0 Monocryl subcuticular stitch and dressed with Dermabond and a Telfa and Tegaderm dressing. The patient was then turned into the supine position on hospital bed and was allowed to come out from general anesthesia in the operating room was taken to the recovery room in stable condition. There were no immediate complications in this operation. All counts were reported correct at th
[2022-02-28] MEDS: fentaNYL CITRATE INJ (*CRX) 100 MCG/2 ML VIAL 25 MCG IV PUSH ×4 (14:26→14:55)
[2022-02-28 14:44] LABS: Glucose Point of Care 134 mg/dl (65-105)
--- NOTE | 2022-02-28 14:50 | SUR.PHASEI ---
1450: Simple mask removed.
[2022-02-28] MEDS: oxyCODONE HCL (*CRX) 5 MG TAB IR PO (15:28)
== END 2022-02-28 16:20 | disposition home health service (06) ==
PROVIDERS: PCP Family Medicine; Visit Provider Neurological Surgery
PROC: (CPT 63030; principal; 2022-02-28 11:30)
DX: M48.061 Spinal stenosis, lumbar region without neurogenic claudication (principal); M51.26 Other intervertebral disc displacement, lumbar region; I10 Essential (primary) hypertension; E11.9 Type 2 diabetes mellitus without complications; E78.5 Hyperlipidemia, unspecified; F41.1 Generalized anxiety disorder; K21.9 Gastro-esophageal reflux disease without esophagitis; G89.29 Other chronic pain; G25.81 Restless legs syndrome; G47.30 Sleep apnea, unspecified; I69.393 Ataxia following cerebral infarction; R01.1 Cardiac murmur, unspecified; Z79.899 Other long term (current) drug therapy; Z79.84 Long term (current) use of oral hypoglycemic drugs; Z77.22 Contact with and (suspected) exposure to environmental tobacco smoke (acute) (chronic)
CPT/HCPCS: 63030; 63047; 63056; 82948; 99199; A9270; J0330; J1100; J2250; J2405; J2704; J3010; J7120

== ENCOUNTER 2022-04-11 08:36 | Outpatient (CLI) | payer OTHER, SELFPAY ==
--- NOTE | ~2022-04-11 | XR_ITS ---
EXAMINATION: XR lg joint inject/asp w image DATE: 04/11/2022 09:51 INDICATION: Right hip arthritis TECHNIQUE: Radiographs of the right were obtained. A time-out was performed to verify the patient's name, date of , and procedure to be performed. The procedure including the risks and benefits w as discussed with the patient. Risks discussed included bleeding and infection. The patient understoo d the risks and agreed to proceed. The skin overlying the right hip joint was prepped and draped in u sual sterile fashion. Anesthetic was administered with 1% bupivacaine subcutaneously. A 22 G needle was advanced under fluoroscopic guidance into the joint. Injectate consisting of 9 mL of 2 cc of 0. 5% Marcaine, 80 mg of Depo-Medrol, 5 cc of Omnipaque 240 was instilled. The needle was removed and t he entry site was cleaned and dressed. There were no immediate complications. Fluoroscopy exposure t marlena was one minute. FINDINGS: Real-time fluoroscopy demonstrates the needle and contrast in the right hip joint. Patient' s self-reported pain prior to the procedure was 10 out of 10 and postprocedure was 6 out of 10. IMPRESSION: 1. Successful right hip joint injection. Reviewed, dictated and finalized at location B.
== END 2022-04-11 08:37 | disposition home or self-care (01) ==
LOC: CHSIMG 08:37
PROVIDERS: PCP Family Medicine; Visit Provider Orthopaedic Surgery
DX: M16.11 Unilateral primary osteoarthritis, right hip (principal)
CPT/HCPCS: 20610; 77002; J1030; Q9965

== ENCOUNTER 2022-05-26 07:36 | Outpatient (CLI) | payer OTHER, SELFPAY ==
[2022-05-26 08:55] LABS: Basophils Percent Auto 0.5 % (0.2-1.2); Eosinophils Absolute Auto 0.1 K/mm3 (0-0.3); Eosinophils Percent Auto 1.7 % (0-4.4); Hematocrit 37.2 % (42.0-52.0); Hemoglobin 12.3 g/dL (14.0-18.0); Immature Granulocyte Absolute 0.04 K/mm3 (0.00-0.031); Immature Granulocyte Percent A 0.7 % (0-0.5); Lymphocytes Absolute Auto 1.75 K/mm3 (0.9-3.2); Lymphocytes Percent Auto 30.6 % (18.3-44.2); Mean Corpuscular HGB Conc 33.1 g/dl (32-36); Mean Corpuscular Hemoglobin 32.3 pg (26-34); Mean Corpuscular Volume 97.6 fl (80-100); Mean Platelet Volume 9.1 fl (7.4-10.4); Monocytes Absolute Auto 0.5 K/mm3 (0.1-0.6); Monocytes Percent Auto 8.2 % (2.6-8.5); Neutrophils Absolute Auto 3.3 K/mm3 (1.3-6.7); Neutrophils Percent Auto 58.3 % (45.5-73.1); Platelet Count Result 172 k/mm3 (150-375); Red Blood Count 3.81 M/mm3 (4.6-6.20); Red Cell Distribution Width 13.3 % (11.5-14.5); White Blood Count 5.7 K/mm3 (4.5-10.0)
[2022-05-26 09:01] LABS: Urine Cotinine NEGATIVE
[2022-05-26 09:03] LABS: Albumin Level 4.3 g/dL (3.5-5.1); Anion Gap 15 mmol/L (8-16); Blood Urea Nitrogen 11 mg/dL (9-20); Carbon Dioxide 27 mmol/L (22-30); Chloride 103 mmol/L (98-107); Estimated Glomerular Filt Rate > 60; Glucose 112 mg/dL (65-110); Hemoglobin A1C 5.8 % (<5.7); Potassium 3.7 mmol/L (3.4-5.0); Sodium 145 mmol/L (137-145)
[2022-05-26 09:10] LABS: Partial Thromboplastin Time 32.8 SECONDS (22.3-36.8)
[2022-05-26 09:19] LABS: Add Urine Microscopic? YES; Appearance Urine Clear (Clear); Bilirubin Urine Negative (Negative); Blood Urine Negative (Negative); Color Urine Straw (Yellow); Glucose Urine UA 1+ mg/dL (Negative); Ketones Urine Negative (Negative); Leukocyte Esterase Ur Negative LEU/UL (Negative); Mucus Urine Rare /lpf; Nitrate Urine Negative (Negative); Protein Urine Negative (Negative); RBC Urine 0-2 /hpf (0-2); Specific Grav Ur 1.012 (1.001-1.035); Urobilinogen Urine Negative mg/dL (<2.0); WBC Urine 0-3 /hpf
== END 2022-05-26 07:37 | disposition home or self-care (01) ==
PROVIDERS: PCP Family Medicine; Visit Provider Orthopaedic Surgery
DX: M16.11 Unilateral primary osteoarthritis, right hip (principal)
CPT/HCPCS: 80048; 80307; 81001; 82040; 83036; 85025; 85610; 85730; 87081

== ENCOUNTER 2022-06-22 16:33 | Observation (INO) | payer OTHER, SELFPAY ==
--- NOTE | 2022-05-26 07:43 | PC.NURSE ---
PRE-OP INSTRUCTIONS, PLEASE READ CAREFULLY Report to the Outpatient Waiting Room, entrance under the green pavilion located off [facility], at time _0600_ on date _06/21/22_. Planned Procedure Time: _0730_. PACK A SMALL OVERNIGHT BAG AND LEAVE IN THE CAR ALONG WITH YOUR WALKER Time changes happen often and if your time is changed the preop area will call you the afternoon before. - You and your visitor will be asked to self-screen and do not enter if you have any COVID symptoms. - We encourage only one visitor and NO visitors under age 16 are allowed at this time. Your visitor will receive communication by the phone number that is given day of service. - The patient visitor is requested to social distance or may leave the building when not with patient due to restrictions. - A mask is required within the hospital. -VISITING HOURS 8AM=8PM Patients may have clear liquids (water, carbonated beverages, clear teas, apple juice) until 3 hours prior to surgery (0430 AM) with a maximum of 20 ounces. - No food from midnight until time of surgery Take the following medications with a SIP of water the morning of surgery: _AMLODIPINE, CARVEDILOL, CLONIDINE, TYLENOL & CYCLOBENZAPRINE IF NEEDED_ Medications to discontinue per DR. SANCHEZ -_PLAVIX, DICLOFENAC_ Medications to discontinue per ANESTHESIA -_MULTIVITAMIN 3 DAYS PRIOR TO SURGERY, Date to take last dose 06/17/22_ Please no deodorant, or body powder the day of surgery. No jewelry (including any body piercings) or valuables the day of surgery, leave them at home. Please take a shower or bath the night before, or the morning of, surgery with an antibacterial soap. Wear comfortable, loose fitting clothing. - Jewelry must be removed prior to entering the operating room. Rings and piercings that are not removed may be cut off. - The hospital will not accept responsibility for valuables. - Please leave all valuables, including medications, at home the day of surgery. If you are going home after surgery, a licensed driver lifter of sanitation truck must drive you home. - NO public transportation without another adult. - We recommend that an adult stay with you for 24 hours following discharge. - We also recommend that you do not drive, make important decision, drink alcoholic beverages, or take any drugs that were not prescribed by your health care provider for at least 24 hours after your discharge time. Follow any additional instructions given to you from your surgeon. If you or anyone in your household have experienced Covid symptoms in the past week, please notify your surgeon or the nurse liaison at the phone number below for possible testing. Instructions given to ____PT and asked if any additional questions and then verbalized understanding. Patient advised to call surgeon office or pre surgery nurse liaison [phone] if any additional questions.
[2022-05-26 08:10] VITALS: BP 170/80; PULSE 74; RESP 20; TEMP 37.3; O2SAT 100; BMI 33.2
[2022-06-21] VITALS (14 sets, daily range): BP systolic 114–147; BP diastolic 51–84; PULSE 69–100; RESP 14–18; TEMP 36.3–38.5; O2SAT 97–100
[2022-06-21 06:59] LABS: Glucose Point of Care 110 mg/dl (65-105)
[2022-06-21] MEDS: LACTATED RINGERS 1,000 ML 30 ML IV CONT ×3 (07:00→12:01)
[2022-06-21] MEDS: ACETAMINOPHEN 500 MG TABLET 1000 MG PO (07:00)
[2022-06-21] MEDS: TRANEXAMIC ACID 1,000MG/ISO100 1,000 MG/100 ML BAG 200 MG IVPB (07:00)
--- NOTE | 2022-06-21 07:09 | WPDANESEPPF ---
Anes - Initial Pre Proc Eval Procedure: Operation Date: 06/21/22 07:30 Proposed Procedures p Right Total Hip Arthroplasty - Tayo Jacobo MD Date/Time: 06/21/22 07:09 Surgeon: Tayo Jacobo MD Pre Op Diagnosis: right hip oa Patient Data Age: 57 Gender: M Height: 1.83 m Weight: 111.11 kg Last Vital Signs Temp 37.3 C 05/26/22 08:10 Pulse 74 05/26/22 08:10 Resp 20 05/26/22 08:10 BP 170/80 H 05/26/22 08:10 Pulse Ox 100 05/26/22 08:10 O2 Del Method Room Air 05/26/22 08:10 Allergies Allergy/AdvReac Type Severity Reaction Status Date / Time Penicillins Allergy Intermediate Hives Verified 06/21/22 07:08 cephalexin AdvReac Intermediate Nausea Verified 06/21/22 07:08 hydrocodone [From [place]] AdvReac Intermediate Nausea and Verified 06/21/22 07:08 Vomiting Home Medications Medication Instructions Recorded Confirmed Type multivitamin 1 tablet PO DAILY 02/10/21 05/26/22 History carvedilol 25 mg tablet 25 mg PO BID #180 tabs 12/06/21 05/26/22 Rx clonidine HCl 0.1 mg tablet 0.1 mg PO BID #180 tabs 12/06/21 05/26/22 Rx dulaglutide 1.5 mg/0.5 mL 1.5 mg (0.5 mL) subcut WEEKLY 90 12/06/21 05/26/22 Rx subcutaneous pen injector days #6.5 mL (Trulicity) losartan 100 1 tablet PO DAILY #90 tabs 12/06/21 05/26/22 Rx mg-hydrochlorothiazide 12.5 mg tablet metformin 1,000 mg tablet 1,000 mg PO BID #180 tabs 12/06/21 05/26/22 Rx rosuvastatin 20 mg tablet 20 mg PO DAILY #90 tabs 12/06/21 05/26/22 Rx amlodipine 5 mg tablet 5 mg PO DAILY 12/09/21 05/26/22 History cyclobenzaprine 10 mg tablet See Rx Instructions .Route 03/06/22 05/26/22 Rx .COMPLEX #60 tabs diclofenac sodium 75 mg See Rx Instructions .Route 03/06/22 05/26/22 Rx tablet,delayed release .COMPLEX #60 tabs clopidogrel 75 mg tablet 75 mg PO DAILY 03/20/22 05/26/22 History acetaminophen 650 mg 1,300 mg PO TID 05/26/22 05/26/22 History tablet,extended release cholecalciferol (vitamin D3) 1,250 1,250 mcg PO WEEKLY 05/26/22 05/26/22 History mcg (50,000 unit) tablet docusate sodium 100 mg capsule 100 mg PO DAILY 05/26/22 05/26/22 History ketoconazole 2 % topical cream 1 applic topical BID 05/26/22 05/26/22 History chlorhexidine gluconate 4 % 1 applic topical ONCE #237 mL 06/14/22 Rx topical liquid (Hibiclens) Laboratory Tests 06/21/22 06:57 POC Capillary Glucose 110 mg/dl H mg/dl (65-105) Patient hx anesthesia problems: none Family hx anesthesia problems: none Results Review: All pre-operative results and documents have been reviewed as part of the pre-operative evaluation. [facility] Past Medical History Medical History Acid reflux Acute medial meniscus tear of left knee Benign paroxysmal positional vertigo Cellulitis Chronic back pain Complete rotator cuff tear of left shoulder CVA, old, ataxia Degenerative arthritis of left knee Diabetes Dizziness JEWEL (generalized anxiety disorder) Heart beat abnormality Heart murmur Sees Dr Meehan History of dental problems Hyperlipidemia Hypertension Nontraumatic rupture of long head of biceps tendon of right shoulder Obesity Psoriasis Restless legs syndrome (RLS) Sleep apnea Stroke Type 2 diabetes mellitus Ulcer Wears glasses Surgical History Surgical History H/O knee surgery 2020 Dr. Crowley Status post reverse total arthroplasty of left shoulder 05/02/2022 Dr. Guille Guillaume at [place] Family History Family History Mother Family history of dementia Cerebrovascular accident Family history of malignant neoplasm Father Family history of malignant neoplasm Other Diabetes mellitus Family history of arthritis Family history of cardiovascular disease Family history of type 2 diabetes mellitus Hypertension Social History Social History (Reviewed 1
--- NOTE | 2022-06-21 07:18 | WPDHPUPDATE1 ---
History and Physical Update Update Date/Time: 06/21/22 07:18 History and Physical has been reviewed, including an updated exam of the patient. There are NO changes in the patient's condition. Risks, benefits, and alternatives have been discussed and questions answered. Patient agrees to proceed with procedure.
[2022-06-21] MEDS: ceFAZolin 2 GM/D5W 50 ML 2 GM/50 ML BAG IVPB ×3 (07:28→22:14)
--- NOTE | 2022-06-21 12:04 | W.PM.PROC2 ---
Procedure Note - Detailed Date of Procedure 06/21/22 Pre-op Diagnosis right hip DJD Post-op Diagnosis Same Procedure Performed R ALIREZA Surgeon Tayo Jacobo MD Anesthesia General Description of Procedure THE PATIENT WAS TAKEN TO THE OPERATING ROOM IN STABLE CONDITION AND WAS PLACED IN THE LATERAL DECUBITUS AND THE RIGHT LOWER EXTREMITY WAS PREPPED AND DRAPED IN THE STERILE FASHION. INCISION WAS MADE IN THE POSTERIOR LATERAL SIDE OF THE HIP, DOWN TO THE FASCIA LAYER. THE FASCIA WAS INCISED. THE HIP WAS EXPOSED. THE SHORT EXTERNAL ROTATORS WERE EXPOSED. THE SCIATIC NERVE WAS IDENTIFIED. INCISION WAS MADE THROUGH THE SHORT EXTERNAL ROTATORS AND THE CAPSULE OF THE HIP JOINT. THE HIP WAS DISLOCATED. AN OSTEOTOMY WAS MADE TO THE FEMORAL NECK ABOUT 1 CM PROXIMAL TO THE LESSER TROCHANTER. THE ACETABULUM WAS EXPOSED. THERE WAS SEVERE DJD SEEN. BEGINNING WITH A 44 REAMER THE ACETABULUM WAS REAMED TO 55 MM. A 55 MM TRIAL WAS PLACED IN 35 DEG OF ABDUCTION AND ANTEVERSION WAS IN ALIGNMENT WITH THE TRANS ACETABULAR LIGAMENT. THE FIT WAS EXCELLENT. THE TRIAL WAS REMOVED. A 56 MM BIOMET G7 COMPONENT WAS THEN TAPPED IN TO PLACE IN 35 DEG OF ABDUCTION AND ANTEVERSION IN ALIGNMENT WITH THE TRANSVERSE ACETABULAR LIGAMENT. THE FIT WAS EXCELLENT. THE ACETABULAR LINER WAS PLACED AND CHECKED FOR STABILITY. NEXT THE FEMUR WAS PREPARED WITH INITIAL CANAL FINDER THEN SEQUENTIAL BROACHING WITH A TAPERLOC HIP SYSTEM, UNTIL A 11 BROACH FIT WELL IN 15 OF ANTEVERSION. MULTIPLE NECK LENGTHS WERE TRIALED UNTIL A +6 HIGH OFFSET NECK WITH 36 MM HEAD TRIAL WAS PLACED. THE SHUCK TEST WAS EXCELLENT AND THE STABILITY IN FLEXION AND ROTATION WAS EXCELLENT. LEG LENGTHS WERE GROSSLY EQUAL. AN INTRAOPERATIVE XRAY WAS TAKEN AND FOUND THAT THE ACETABULAR COMPONENT AND FEMORAL TRIAL WERE IN GOOD POSITION. TRIALS WERE REMOVED. A BIOMET TAPERLOC 11 STEM WAS PLACED WITH A HIGH OFFSET NECK. THE FIT WAS EXCELLENT IN 15 DEG OF ANTEVERSION. A +6 CERAMIC 36 MM FEMORAL HEAD WAS PLACED. THE HIP WAS TRIALED AND THE STABILITY WAS EXCELLENT WERE THE LEG LENGTHS AND THE SHUCK TEST. THE WOUND WAS IRRIGATED WITH STERILE BETADINE AND WATER FOR 3 MIN. THEN WASHED AGAIN. THE SCIATIC NERVE WAS IDENTIFIED AGAIN. THE CAPSULE AND THE EXTERNAL ROTATORS WERE APPROXIMATED WITH NUMBER 1 VICRYL. THE FASCIA WITH No 2 QUIL AND THE SUB CUTANEOUS LAYER WITH 2-0 ABSORBABLE SUTURE AND A RUNNING 3-0 SUBCUTICULAR STITCH FOR THE SKIN. DERMABOND WAS PLACED AND STERILE DRESSING WAS APPLIED. PATIENT WAS PLACED BACK ON TO THE SUPINE POSITION AND WAS EXTUBATED Estimated Blood Loss 250 Complications No immediate complications Condition Stable Disposition PACU
[2022-06-21 12:07] LABS: Glucose Point of Care 186 mg/dl (65-105)
[2022-06-21] MEDS: fentaNYL CITRATE INJ (*CRX) 100 MCG/2 ML VIAL 25 MCG IV PUSH ×2 (12:37→12:42)
[2022-06-21] MEDS: HYDROcodone/acetaminophen (*CRX) 7.5-325 MG TABLET 1 TAB PO ×2 (14:53→19:00)
[2022-06-21] MEDS: DEXTROSE 5%/0.45% SOD CHL 1,000 ML 80 ML IV CONT (14:54)
[2022-06-21] MEDS: PROPARACAINE HCL 0.5% 15 ML OPHTH SOLN 1 DROP EACH EYE (15:57)
[2022-06-21] MEDS: ONDANSETRON INJ 4 MG/2 ML VIAL IV PUSH (15:57)
[2022-06-21] MEDS: cloNIDine HCL 0.1 MG TABLET PO (17:18)
[2022-06-21] MEDS: KETOROLAC 15 MG/ML VIAL (*BKC) IV PUSH (17:18)
[2022-06-21] MEDS: SENNA/DOCUSATE SODIUM TABLET 2 TAB PO (17:18)
[2022-06-21] MEDS: metFORMIN HCL 500 MG TABLET 1000 MG PO (17:18)
--- NOTE | 2022-06-21 17:46 | ADMGEN ---
This patient, Jose Rutledge, was admitted to Medical Room 253-01. Patient/family oriented to hospital policies and general routines including ID bracelet, bed and alarms, visiting hours, pain management, procedures, bathroom and other care routines, personal items, smoking policy, room service/diet, and visiting hours. Information on how to activate the Rapid Response Team has been discussed. Patient/Family are encouraged to report perceived risks to care and to ask questions if they do not understand what they are told or what they should do.
[2022-06-21 17:57] LABS: Glucose Point of Care 156 mg/dl (65-105)
[2022-06-21] MEDS: carvediloL 25 MG TABLET PO (20:54)
[2022-06-21] MEDS: FAMOTIDINE 20 MG TABLET PO (20:54)
[2022-06-21] MEDS: ASPIRIN 325 MG ENTERIC TABLET PO (20:55)
[2022-06-21] MEDS: DICLOFENAC SODIUM 0.1% OPHTH SOLN 2.5 ML BOTTLE 1 DROP EACH EYE (22:13)
[2022-06-22] VITALS (10 sets, daily range): BP systolic 91–108; BP diastolic 43–65; PULSE 87–96; RESP 16–20; TEMP 36.8–37.4; O2SAT 95–99
--- NOTE | ~2022-06-22 | XR_ITS ---
EXAMINATION: XR surgery orthopedic DATE: 06/21/2022 10:13 INDICATION: Intraoperative evaluation during right total hip arthroplasty TECHNIQUE: Frontal view of the right hip was obtained. COMPARISON: None. FINDINGS: Intraoperative image during a right total hip arthroplasty demonstrate placement of an acetabular com ponent which appears in near anatomic alignment on the single image provided. A femoral broach is in place with the proximal tip centered over the acetabular component. Lucent gas and soft tissue retra ctors are present at the operative bed. Portions of the iliac crests are excluded from the field-of-v iew. No fractures in the visualized bones. IMPRESSION: 1. Expected appearance during right total hip arthroplasty. Reviewed, dictated and finalized at location B. OPERATOR
--- NOTE | ~2022-06-22 | XR_ITS ---
XR hip RT min 2V DATE: 06/21/2022 12:16 INDICATION: Right total hip replacement TECHNIQUE: Postoperative AP and lateral views COMPARISON: None FINDINGS: Status post right total hip arthroplasty. There is mild expected subcutaneous emphysema. No fracture or dislocation. IMPRESSION: Status post right total hip arthroplasty Reviewed, dictated and finalized at location A. MANAGEMENT COUNSELOR
[2022-06-22] MEDS: KETOROLAC 15 MG/ML VIAL (*BKC) IV PUSH ×4 (00:14→17:15)
[2022-06-22] MEDS: ceFAZolin 2 GM/D5W 50 ML 2 GM/50 ML BAG IVPB (06:03)
[2022-06-22] MEDS: DICLOFENAC SODIUM 0.1% OPHTH SOLN 2.5 ML BOTTLE 1 DROP EACH EYE ×3 (06:03→21:07)
[2022-06-22] MEDS: HYDROcodone/acetaminophen (*CRX) 7.5-325 MG TABLET 1 TAB PO ×3 (06:46→21:07)
[2022-06-22 06:47] LABS: Basophils Percent Auto 0.1 % (0.2-1.2); Eosinophils Percent Auto 0.1 % (0-4.4); Hematocrit 26.8 % (42.0-52.0); Hemoglobin 9.1 g/dL (14.0-18.0); Immature Granulocyte Absolute 0.03 K/mm3 (0.00-0.031); Immature Granulocyte Percent A 0.4 % (0-0.5); Lymphocytes Absolute Auto 1.94 K/mm3 (0.9-3.2); Lymphocytes Percent Auto 23.2 % (18.3-44.2); Mean Corpuscular Hemoglobin 32.3 pg (26-34); Mean Platelet Volume 9.5 fl (7.4-10.4); Monocytes Absolute Auto 1.2 K/mm3 (0.1-0.6); Monocytes Percent Auto 14.8 % (2.6-8.5); Neutrophils Absolute Auto 5.1 K/mm3 (1.3-6.7); Neutrophils Percent Auto 61.4 % (45.5-73.1); Platelet Count Result 141 k/mm3 (150-375); Red Blood Count 2.82 M/mm3 (4.6-6.20); Red Cell Distribution Width 13.5 % (11.5-14.5); White Blood Count 8.4 K/mm3 (4.5-10.0)
[2022-06-22 07:10] LABS: Anion Gap 10 mmol/L (8-16); Blood Urea Nitrogen 15 mg/dL (9-20); Calcium 7.9 mg/dL (8.4-10.2); Carbon Dioxide 24 mmol/L (22-30); Chloride 103 mmol/L (98-107); Estimated CRCL calculation 127 ml/min; Estimated Glomerular Filt Rate > 60; Glucose 154 mg/dL (65-110); Potassium 3.4 mmol/L (3.4-5.0); Sodium 137 mmol/L (137-145)
--- NOTE | 2022-06-22 08:04 | P.PNAN_ITS ---
Anes - Prog Note Post-Op Date/Time: 06/22/22 08:04 Vital Signs: Last Vital Signs Temp 36.9 C 06/22/22 04:32 Pulse 96 06/22/22 04:32 Resp 16 06/22/22 04:32 BP 108/54 L 06/22/22 04:32 Pulse Ox 96 06/22/22 04:32 O2 Del Method Room Air 06/21/22 20:00 O2 Flow Rate 8 06/21/22 12:05 Pain Score (VAS): 2 I/O: Intake & Output 06/21/22 06/22/22 06/22/22 23:59 07:59 15:59 Intake Total 50 150 Balance 50 150 Laboratory Tests 06/22/22 05:30 06/22/22 05:30 06/21/22 06/21/22 06/22/22 12:05 17:42 05:30 WBC 8.4 RBC 2.82 L Hgb 9.1 L D Hct 26.8 L MCV 95.0 MCH 32.3 MCHC 34.0 RDW 13.5 Plt Count 141 L MPV 9.5 Immature Gran % (Auto) 0.4 Neut % (Auto) 61.4 Lymph % (Auto) 23.2 Callaway % (Auto) 14.8 H Eos % (Auto) 0.1 Baso % (Auto) 0.1 L Lymph # (Auto) 1.94 [place] # (Auto) 1.2 H Eos # (Auto) 0.0 Baso # (Auto) 0.0 Abs Immat Gran (auto) 0.03 Absolute Neuts (auto) 5.1 Absolute Nucleated RBC 0.0 Nucleated RBC % 0.0 Sodium Potassium Chloride Carbon Dioxide Anion Gap BUN Creatinine Estim Creat Clear Calc Estimated GFR Glucose POC Capillary Glucose 186 H 156 H Calcium 06/22/22 05:30 WBC RBC Hgb Hct MCV MCH MCHC RDW Plt Count MPV Immature Gran % (Auto) Neut % (Auto) Lymph % (Auto) Call[place] % (Auto) Eos % (Auto) Baso % (Auto) Lymph # (Auto) [place] # (Auto) Eos # (Auto) Baso # (Auto) Abs Immat Gran (auto) Absolute Neuts (auto) Absolute Nucleated RBC Nucleated RBC % Sodium 137 Potassium 3.4 Chloride 103 Carbon Dioxide 24 Anion Gap 10 BUN 15 Creatinine 0.70 Estim Creat Clear Calc 127 Estimated GFR > 60 Glucose 154 H POC Capillary Glucose Calcium 7.9 L Patient Feedback: Patient satisfied with anesthetic care.
[2022-06-22] MEDS: carvediloL 25 MG TABLET PO (08:25)
[2022-06-22] MEDS: ASPIRIN 325 MG ENTERIC TABLET PO ×2 (08:25→21:08)
[2022-06-22] MEDS: cloNIDine HCL 0.1 MG TABLET PO (08:25)
[2022-06-22] MEDS: amLODIPine BESYLATE 5 MG TABLET PO (08:25)
[2022-06-22] MEDS: FAMOTIDINE 20 MG TABLET PO ×2 (08:25→21:08)
[2022-06-22] MEDS: polyethylene glycoL 3350 17 GM POWD.PACK PO (08:25)
[2022-06-22] MEDS: CLOPIDOGREL BISULFATE 75 MG TABLET PO (08:25)
[2022-06-22] MEDS: metFORMIN HCL 500 MG TABLET 1000 MG PO ×2 (08:25→17:15)
[2022-06-22] MEDS: SENNA/DOCUSATE SODIUM TABLET 2 TAB PO ×2 (08:25→17:15)
[2022-06-22] MEDS: hydroCHLOROthiazide 25 MG TABLET PO (08:25)
[2022-06-22] MEDS: ROSUVASTATIN 10 MG TABLET 20 MG PO (08:26)
[2022-06-22] MEDS: LOSARTAN POTASSIUM 100 MG TABLET PO (08:50)
--- NOTE | 2022-06-22 10:28 | PM.PNORT ---
Progress Note: A&P Assessment and Plan (1) S/P total hip arthroplasty: Code(s): Z96.649 - Presence of unspecified artificial hip joint Status: Acute Assessment and Plan: POD #1 : Right ALIREZA Continue PT/OT. WBAT. Walker. HIGH FALL RISK. Continue pain control. Ice hip. Protect skin. DVT prophylaxis with Aspirin. SCDs. Incentive Spirometry Use reviewed. Monitor Dressing. Change prior to discharge. Bowel Regimen. Dispo: Home with Home Health pending progress with PT/OT Plan Reviewed vitals, labs and postoperative assessment with Dr. Jcaobo. No further recommendations at this time. Agrees with plan of care as indicated above. Subjective Subjective Date/Time Seen: 06/22/22 10:28 Post Op day: 1 Interval history: POD #1: Right ALIREZA Patient doing well. Some dizziness with standing/sitting today with PT/OT. No new concerns. Review of Systems Review of Systems: All systems reviewed & are unremarkable except as noted in HPI and below Constitutional: Constitutional: Denies chills, Denies fever(s), Denies headache(s), Denies lethargy and Reports weakness ENT: Denies headache(s) Cardiovascular: Cardiovascular: Denies chest pain, Denies diaphoresis, Denies lightheadedness, Denies palpitations, Denies dyspnea and Denies dyspnea on exertion Respiratory: Respiratory: Denies cough, Denies dyspnea and Denies dyspnea on exertion Gastrointestinal: Gastrointestinal: Denies constipation, Denies diarrhea, Denies nausea and Denies vomiting Genitourinary: Genitourinary: Denies dysuria, Reports urinary frequency and Denies urinary hesitancy Musculoskeletal: Musculoskeletal: Reports joint swelling (Right Hip ) and Reports limited range of motion (Right Hip due to recent surgery ) Neurologic: Denies headache(s) and Reports weakness Endocrine: Endocrine: Denies palpitations Exam Const: General: comfortable and no acute distress Resp: Effort & Inspection: normal respiratory effort Cardio: Rate: regular rate Rhythm: regular rhythm GI: Inspection: non-distended Skin: General skin exam: normal color Other: Incision right hip c/d/i. Surrounding tissue without redness/warmth. Mild swelling consistent with recent surgery. No drainage. Neuro: Cognition (Neuro): normal cognition Speech: normal speech Extrem: Right lower extremity: normal to inspection, normal capillary refill, hip/thigh Details: tenderness Location: of the hip (Thigh soft ) Location: laterally and anteriorly, swelling Location: at the hip, abnormal ROM (limited consistent with recent surgery ) Details: pain with active ROM during and pain with passive ROM during and other (Incision c/d/i. ); no deformity and no unusual warmth, knee Details: normal to inspection; no tenderness and no swelling, lower leg (Negative Lizet's Sign ) Details: normal to inspection and no edema; no tenderness, ankle (+ankle dorsiflexion/plantarflexion) Details: normal to inspection and no edema; no tenderness, no swelling and no ecchymosis and foot Details: normal capillary refill, toes with normal ROM, vascular exam Details: dorsalis pedis pulse present and motor-sensory exam Details: light-touch normal; no tenderness Objective Data Vital Signs Vital Signs: Vital Signs - 24 hr 06/21/22 11:52 06/21/22 12:05 06/21/22 12:20 Temperature 36.6 C Pulse Rate 92 84 80 Respiratory Rate 14 14 18 Blood Pressure 137/84 138/75 130/77 Pulse Oximetry 100 100 100 Oxygen Delivery Simple Face Mask Simple Face Mask Room Air Oxygen Flow Rate 10 8 06/21/22 12:35 06/21/22 12:50 06/21/22 13:05 Temperature Pulse Rate 74 71 76 Respiratory Rate 14 14 16 Blood Pressure 127/73 125/78 132/75 Pulse Oximetry 100 99 99 Oxygen Delivery Room Air Room Air Room Air Oxygen Flow Rate 06/21/22 13:28 06/21/22 14:00 06/21/22 14:39 Temperature 36.4 C L 36.6 C 36.7 C Pulse Rate 77 78 78 Respiratory Rate 16 16 16 Blood Pressure 138/72 136/72 141/75 H Pulse Oximetry 100 100 100
[2022-06-22] MEDS: SODIUM CHLORIDE 0.9% IV 500 ML 999 ML IV CONT (13:28)
[2022-06-23 00:01] VITALS: BP 124/60; PULSE 99; RESP 14; TEMP 36.5; O2SAT 97
[2022-06-23] MEDS: HYDROcodone/acetaminophen (*CRX) 7.5-325 MG TABLET 1 TAB PO ×3 (02:20→08:25)
[2022-06-23 05:17] VITALS: BP 134/63; PULSE 100; RESP 16; TEMP 36.6; O2SAT 97
[2022-06-23] MEDS: DICLOFENAC SODIUM 0.1% OPHTH SOLN 2.5 ML BOTTLE 1 DROP EACH EYE (05:20)
[2022-06-23 06:27] LABS: Basophils Percent Auto 0.2 % (0.2-1.2); Eosinophils Percent Auto 0.4 % (0-4.4); Hematocrit 25.7 % (42.0-52.0); Hemoglobin 8.6 g/dL (14.0-18.0); Immature Granulocyte Absolute 0.04 K/mm3 (0.00-0.031); Immature Granulocyte Percent A 0.5 % (0-0.5); Lymphocytes Percent Auto 24.2 % (18.3-44.2); Mean Corpuscular HGB Conc 33.5 g/dl (32-36); Mean Corpuscular Hemoglobin 31.9 pg (26-34); Mean Corpuscular Volume 95.2 fl (80-100); Mean Platelet Volume 9.7 fl (7.4-10.4); Monocytes Absolute Auto 1.1 K/mm3 (0.1-0.6); Monocytes Percent Auto 13.1 % (2.6-8.5); Neutrophils Absolute Auto 5.1 K/mm3 (1.3-6.7); Neutrophils Percent Auto 61.6 % (45.5-73.1); Platelet Count Result 117 k/mm3 (150-375); Red Cell Distribution Width 13.4 % (11.5-14.5); White Blood Count 8.3 K/mm3 (4.5-10.0)
[2022-06-23 06:34] LABS: Anion Gap 8 mmol/L (8-16); Blood Urea Nitrogen 13 mg/dL (9-20); Calcium 8.3 mg/dL (8.4-10.2); Carbon Dioxide 24 mmol/L (22-30); Chloride 104 mmol/L (98-107); Estimated CRCL calculation 127 ml/min; Estimated Glomerular Filt Rate > 60; Glucose 160 mg/dL (65-110); Potassium 3.3 mmol/L (3.4-5.0); Sodium 136 mmol/L (137-145)
--- NOTE | 2022-06-23 07:50 | PCOTNOTE ---
Attempted to see patient this am, however patient declined. Pt stated, I'm ready to go home. Pt declined shower and dressing tasks stating I'll do that when I get home. I don't have anymore clean clothes. My will be there to help me. Pt reported feeling comfortable with bathing and dressing with hip precautions stating, I'm just ready to go.
[2022-06-23 08:06] VITALS: PULSE 88
[2022-06-23] MEDS: ASPIRIN 325 MG ENTERIC TABLET PO (08:06)
[2022-06-23] MEDS: carvediloL 25 MG TABLET PO (08:06)
[2022-06-23] MEDS: amLODIPine BESYLATE 5 MG TABLET PO (08:06)
[2022-06-23] MEDS: cloNIDine HCL 0.1 MG TABLET PO (08:07)
[2022-06-23] MEDS: LOSARTAN POTASSIUM 100 MG TABLET PO (08:07)
[2022-06-23] MEDS: hydroCHLOROthiazide 25 MG TABLET PO (08:07)
[2022-06-23] MEDS: FAMOTIDINE 20 MG TABLET PO (08:07)
[2022-06-23] MEDS: SENNA/DOCUSATE SODIUM TABLET 2 TAB PO (08:07)
[2022-06-23] MEDS: metFORMIN HCL 500 MG TABLET 1000 MG PO (08:07)
[2022-06-23] MEDS: CLOPIDOGREL BISULFATE 75 MG TABLET PO (08:07)
[2022-06-23] MEDS: ROSUVASTATIN 10 MG TABLET 20 MG PO (08:07)
[2022-06-23] MEDS: polyethylene glycoL 3350 17 GM POWD.PACK PO (08:07)
--- NOTE | 2022-06-23 09:42 | PM.PNORT ---
Progress Note: A&P Assessment and Plan (1) S/P total hip arthroplasty: Code(s): Z96.649 - Presence of unspecified artificial hip joint Status: Acute Assessment and Plan: POD #2 : Right ALIREZA Continue PT/OT. WBAT. Walker. HIGH FALL RISK. Continue pain control. Ice hip. Protect skin. DVT prophylaxis with Aspirin. SCDs. Incentive Spirometry Use reviewed. Monitor Dressing. Change prior to discharge. Bowel Regimen. Dispo: Home with Home Health pending progress with PT/OT likely today Plan Reviewed vitals, labs and postoperative assessment with Dr. Jacobo. No further recommendations at this time. Agrees with plan of care as indicated above. Subjective Subjective Date/Time Seen: 06/23/22 09:42 Post Op day: 2 Interval history: POD #2: Right ALIREZA Patient doing well. Improvement in dizziness with ambulation. BP improved as well. Pain well controlled. Review of Systems Review of Systems: All systems reviewed & are unremarkable except as noted in HPI and below Constitutional: Constitutional: Denies chills, Denies fever(s), Denies headache(s), Denies lethargy and Reports weakness ENT: Denies headache(s) Cardiovascular: Cardiovascular: Denies chest pain, Denies diaphoresis, Denies lightheadedness, Denies palpitations, Denies dyspnea and Denies dyspnea on exertion Respiratory: Respiratory: Denies cough, Denies dyspnea and Denies dyspnea on exertion Gastrointestinal: Gastrointestinal: Denies constipation, Denies diarrhea, Denies nausea and Denies vomiting Genitourinary: Genitourinary: Denies dysuria, Reports urinary frequency and Denies urinary hesitancy Musculoskeletal: Musculoskeletal: Reports joint swelling (Right Hip ) and Reports limited range of motion (Right Hip due to recent surgery ) Neurologic: Denies headache(s) and Reports weakness Endocrine: Endocrine: Denies palpitations Exam Const: General: comfortable and no acute distress Resp: Effort & Inspection: normal respiratory effort Cardio: Rate: regular rate Rhythm: regular rhythm GI: Inspection: non-distended Skin: General skin exam: normal color Other: Incision right hip c/d/i. Surrounding tissue without redness/warmth. Mild swelling consistent with recent surgery. No drainage. Neuro: Cognition (Neuro): normal cognition Speech: normal speech Extrem: Right lower extremity: normal to inspection, normal capillary refill, hip/thigh Details: tenderness Location: of the hip (Thigh soft ) Location: laterally and anteriorly, swelling Location: at the hip, abnormal ROM (limited consistent with recent surgery ) Details: pain with active ROM during and pain with passive ROM during and other (Incision c/d/i. ); no deformity and no unusual warmth, knee Details: normal to inspection; no tenderness and no swelling, lower leg (Negative Lizet's Sign ) Details: normal to inspection and no edema; no tenderness, ankle (+ankle dorsiflexion/plantarflexion) Details: normal to inspection and no edema; no tenderness, no swelling and no ecchymosis and foot Details: normal capillary refill, toes with normal ROM, vascular exam Details: dorsalis pedis pulse present and motor-sensory exam Details: light-touch normal; no tenderness Objective Data Vital Signs Vital Signs: Vital Signs - 24 hr 06/22/22 10:04 06/22/22 11:30 06/22/22 11:33 Temperature 36.8 C Pulse Rate 87 Respiratory Rate 18 Blood Pressure 104/55 L 91/43 L 104/54 L Pulse Oximetry 96 Oxygen Delivery 06/22/22 11:36 06/22/22 13:34 06/22/22 14:13 Temperature 37.0 C 37.1 C Pulse Rate 90 93 Respiratory Rate 18 20 Blood Pressure 94/51 L 92/45 L 104/46 L Pulse Oximetry 95 98 Oxygen Delivery 06/22/22 20:08 06/22/22 20:00 06/23/22 00:01 Temperature 37.4 C 36.5 C Pulse Rate 93 99 Respiratory Rate 16 14 Blood Pressure 108/65 124/60 Pulse Oximetry 99 97 Oxygen Delivery Room Air 06/23/22 05:17 06/23/22 08:06 06/23/22 08:30 Temperature 36.6 C Pulse R
[2022-06-23] MEDS: ONDANSETRON INJ 4 MG/2 ML VIAL IV PUSH (10:18)
[2022-06-23 10:32] VITALS: BP 103/54; PULSE 87; RESP 16; TEMP 36.9; O2SAT 96
== END 2022-06-23 13:15 | disposition home health service (06) ==
LOC: ANHSURGERY 17:08 → ANH2MED 17:08
PROVIDERS: Nurse Practitioner Family; Admitting Provider Orthopaedic Surgery; PCP Family Medicine; Visit Provider Orthopaedic Surgery
PROC: (CPT 27130; principal; 2022-06-21 07:30)
DX: M16.11 Unilateral primary osteoarthritis, right hip (principal); K21.9 Gastro-esophageal reflux disease without esophagitis; I69.393 Ataxia following cerebral infarction; I10 Essential (primary) hypertension; E11.9 Type 2 diabetes mellitus without complications; F41.9 Anxiety disorder, unspecified; R01.1 Cardiac murmur, unspecified; E66.9 Obesity, unspecified; Z68.32 Body mass index [BMI] 32.0-32.9, adult; E78.5 Hyperlipidemia, unspecified; G25.81 Restless legs syndrome; G47.30 Sleep apnea, unspecified; L40.9 Psoriasis, unspecified; F10.90 Alcohol use, unspecified, uncomplicated; F17.290 Nicotine dependence, other tobacco product, uncomplicated; Z79.85 Long-term (current) use of injectable non-insulin antidiabetic drugs; Z79.84 Long term (current) use of oral hypoglycemic drugs; Z79.02 Long term (current) use of antithrombotics/antiplatelets; Z79.1 Long term (current) use of non-steroidal anti-inflammatories (NSAID); Z79.899 Other long term (current) drug therapy
CPT/HCPCS: 27130; 36415; 73502; 80048; 82948; 85025; 86850; 86900; 86901; 97110; 97116; 97161; 97165; 97530; 97535; 99199; A9270; C1713; C1776; G0378; J0171; J0690; J1100; J1885; J2250; J2270; J2405; J2704; J2710; J2795; J3010; J3370; J7040; J7120

== ENCOUNTER 2022-08-29 10:05 | Outpatient (CLI) | payer OTHER, SELFPAY ==
--- NOTE | ~2022-08-29 | XR_ITS ---
AP view of the pelvis and AP and lateral views of the right hip Clinical history: Pain COMPARISON: 07/10/2022 Findings: No acute fracture or dislocation is seen. Right hip arthroplasty in place. No hardware comp lication seen.. Soft tissues are unremarkable. Impression: No acute abnormality. Right hip arthroplasty is unchanged. Reviewed, dictated and finalized at location . UTIVE COORDINATOR Impression: No acute abnormality. Right hip arthroplasty is unchanged.
--- NOTE | ~2022-08-29 | XR_ITS ---
Clinical Indication: Shortness of breath PA and lateral views of the chest: Comparison: 10/04/2020 Findings: The lungs are clear, without evidence of focal consolidation or pleural effusion. Cardiome diastinal silhouette is within normal limits. Left shoulder arthroplasty noted. Impression: Clear lungs. Reviewed, dictated and finalized at location . OR SOFTWARE MANAGER Impression: Clear lungs.
[2022-08-29 10:51] LABS: Influenza A QL RT-PCR Negative (Negative); Influenza B QL RT-PCR Negative (Negative); SARS-CoV-2 RNA PCR Negative (Negative)
[2022-08-29 10:55] LABS: RSV RNA, RT-PCR Negative (Negative)
--- NOTE | 2022-08-29 12:39 | ECG_ITS ---
Measurements Intervals [place] Rate: 75 P: 48 HI: 162 QRS: 68 QRSD: 102 T: -36 QT: 354 QTc: 397 Interpretive Statements SINUS RHYTHM DELAYED PRECORDIAL R/S TRANSITION ST-T WAVE ABNORMALITY IN INFERIOR LEADS- CONSIDER ISCHEMIA BASELINE WANDER- I, II, III, V2 ABNORMAL ECG COMPARED TO ECG 10/04/2021 12:02:59 ST-T WAVE ABNORMALITY NOW PRESENT Electronically Signed On 08-29-2022 13:03:53 REFRIGERATION ENGINE OPERATOR by Neymar Barnett D.O.
[2022-08-29 12:43] LABS: Basophils Absolute Auto 0.02 K/mm3 (0.00-0.10); Basophils Percent Auto 0.3 % (0.0-1.0); Eosinophils Absolute Auto 0.04 K/mm3 (0.02-0.50); Eosinophils Percent Auto 0.6 % (1.0-6.0); Hematocrit 34.6 % (40.0-54.0); Immature Granulocyte Absolute 0.05 K/mm3 (0.00-0.00); Immature Granulocyte Percent A 0.7 % (0.0-0.0); Lymphocytes Absolute Auto 1.03 K/mm3 (1.10-4.50); Lymphocytes Percent Auto 14.9 % (18.0-42.0); Mean Corpuscular HGB Conc 31.8 g/dL (32.0-36.0); Mean Corpuscular Volume 94.3 fL (78.0-102.0); Mean Platelet Volume 10.2 fl (8.7-11.0); Monocytes Absolute Auto 0.46 K/mm3 (0.10-0.90); Monocytes Percent Auto 6.7 % (2.0-11.0); Neutrophils Absolute Auto 5.3 K/mm3 (1.7-7.2); Neutrophils Percent Auto 76.8 % (50.0-70.0); Platelet Count Result 148 K/mm3 (150-420); Red Blood Count 3.67 M/mm3 (4.70-6.10); Red Cell Distribution Width 13.8 % (11.6-14.4); White Blood Count 6.9 K/mm3 (4.8-10.8)
[2022-08-29 12:48] LABS: Add Urine Microscopic? YES; Appearance Urine Clear (Clear); Bilirubin Urine Negative (Negative); Blood Urine Negative (Negative); Color Urine Yellow (Yellow); Glucose Urine UA Negative (Negative); Ketones Urine Negative (Negative); Leukocyte Esterase Ur Negative LEU/UL (Negative); Nitrate Urine Negative (Negative); Protein Urine Trace (Negative)
[2022-08-29 12:56] LABS: Bacteria Urine 1+ /hpf; RBC Urine None seen /hpf (0-2); Squamous Epithelial Cell Urine Few /hpf (Few); WBC Urine 0-3 /hpf (0-3)
[2022-08-29 13:03] LABS: Alanine Aminotransferase 17 U/L (16-63); Albumin Level 2.7 g/dL (3.4-5.0); Alkaline Phosphatase 79 U/L (46-116); Anion Gap 10 mmol/L (8-16); Aspartate Amino Transferase 16 U/L (15-37); Bilirubin,Total 0.7 mg/dL (0.00-1.00); Blood Urea Nitrogen 17 mg/dL (7-18); Calcium 9.8 mg/dL (8.5-10.1); Carbon Dioxide 26 mmol/L (21-32); Chloride 105 mmol/L (98-108); Estimated Glomerular Filt Rate > 60; Glucose 198 mg/dL (70-99); Osmolality Calculated 299 mOsm/kg (285-295); Potassium 3.7 mmol/L (3.5-5.1); Sodium 141 mmol/L (136-145); Total Protein 6.9 g/dL (6.4-8.2)
[2022-08-29 13:10] LABS: CRP > 25.0 mg/dL (0.0-0.9)
[2022-08-29 13:16] LABS: D Dimer 0.99 mg/L (0.19-0.50)
[2022-08-29 13:36] LABS: Troponin I 12.6 ng/L (0.00-60.4)
[2022-08-29 13:37] LABS: NT Pro B Type Natriuretic Pept 329 pg/mL (0-125)
== END 2022-08-29 10:06 | disposition home or self-care (01) ==
PROVIDERS: PCP Family Medicine; Visit Provider Nurse Practitioner Family
DX: J06.9 Acute upper respiratory infection, unspecified (principal); R50.9 Fever, unspecified; Z96.649 Presence of unspecified artificial hip joint; R06.02 Shortness of breath; R07.9 Chest pain, unspecified; Z96.641 Presence of right artificial hip joint; R94.31 Abnormal electrocardiogram [ECG] [EKG]
CPT/HCPCS: 36415; 71046; 73502; 80053; 81001; 83880; 84484; 85025; 85380; 86140; 87637; 93005

== ENCOUNTER 2022-08-29 14:02 | Inpatient (IN) | payer OTHER, SELFPAY ==
[2022-08-29] VITALS (19 sets, daily range): BP systolic 109–147; BP diastolic 62–79; PULSE 72–94; RESP 14–24; TEMP 36.8–37.1; O2SAT 97–100; BMI 34.4
--- NOTE | ~2022-08-29 | CT_ITS ---
CT OF right hip EXAMINATION: CT LE RT w con DATE: 08/29/2022 16:45 INDICATION: Right hip pain and erythema, right hip replacement in June 2022. TECHNIQUE: Computed tomography (CT) of the right hip was performed 200 mL Omnipaque 350 intravenous c ontrast. Automated exposure control and iterative reconstruction technique were employed. The dose-le ngth product was 1217.65 mGy-cm. COMPARISON: X-ray 06/21/2022 and 08/29/2022. FINDINGS: Limitations: None Bones: Right hip arthroplasty. No hardware fracture. No abnormal perihilar hardware lucency. Soft Tissues: Extensive subcutaneous induration/edema along the lateral aspect of the right hip and t high. Fluid: 5.5 x 13.6 cm multiloculated fluid and gas collection with surrounding irregular enhancement c entered in the deep subcutaneous tissues of the right lateral hip. Portions of the collection extend towards the right hip joint capsule but a definitive connection is not demonstrated. Small right hip fluid that may contain gas bubbles is mostly obscured by metal artifact. IMPRESSION: Multiloculated subcutaneous abscess of the lateral hip. Right hip joint capsule involvement is suspec sandoval. No CT evidence of osteomyelitis. No hardware fracture or perihardware lucency. Reviewed, dictated and finalized at location K. R PLANT PUMP OPERATOR IMPRESSION: Multiloculated subcutaneous abscess of the lateral hip. Right hip joint capsule involvement is suspected. No CT evidence of osteomyelitis. No hardware fractur e or perihardware lucency.
--- NOTE | ~2022-08-29 | CT_ITS ---
EXAMINATION: CTA chest PE protocol DATE: 08/29/2022 16:35 INDICATION: Postop, elevated d-dimer, history of PE TECHNIQUE: Computed tomography angiography (CTA) of the chest was performed with 100 mL Omnipaque-350 intravenous contrast timed to evaluate the pulmonary arteries. Coronal maximum intensity projection 3D-reconstructions were created by the technologist. The dose-length product (DLP) was 913.03 mGy-cm. Automated exposure control and iterative reconstruction technique were employed. COMPARISON: X-ray chest, same date. FINDINGS: Lung parenchyma and airways: Dependent atelectasis, otherwise clear. Pleura: Unremarkable. Thoracic inlet, axillae and chest wall: Unremarkable. Thoracic aorta: Normal. Mediastinum: Normal. Heart and pericardium: Mild cardiomegaly. Aortic valve calcification. Coronary artery calcifications: Moderate. Upper abdomen: Nodular appearing liver border. Bones: No acute osseous finding. Pulmonary arteries: Study quality: Mild motion artifact, quantum mottle and beam hardening but overal l diagnostic. No pulmonary emboli detected. IMPRESSION: Mildly motion limited examination. No definite CT evidence of acute pulmonary embolus. No acute proce ss detected in the chest. Possible cirrhosis. Reviewed, dictated and finalized at location K. ER PICKER IMPRESSION: Mildly motion limited examination. No definite CT evidence of acute pulmonary e mbolus. No acute process detected in the chest. Possible cirrhosis.
--- NOTE | ~2022-08-29 | XR_ITS ---
EXAM: XR pelvis 1-2V DATE: 08/30/2022 16:02 HISTORY: POST OP rt hip, septic right hip, resection arthroplasty with antibiotic spacer placement. COMPARISON: 08/29/2022. FINDINGS: Interval right hip arthroplasty removal with placement of a an antibiotic spacer. A surgic al drain projects over the right hip. No acute fracture. No unexpected radiopaque foreign body.. IMPRESSION: Expected postsurgical changes, with no radiographic evidence of procedure or hardware rel ated complication. Reviewed, dictated and finalized at location K. ING MACHINE ASSEMBLER IMPRESSION: Expected postsurgical changes, with no radiographic evidence of pro cedure or hardware related complication.
--- NOTE | 2022-08-29 14:04 | ECG_ITS ---
Measurements Intervals [place] Rate: 72 P: 16 NM: 175 QRS: 3 QRSD: 106 T: 3 QT: 366 QTc: 401 Interpretive Statements SINUS RHYTHM DELAYED PRECORDIAL R/S TRANSITION LEFT VENTRICULAR HYPERTROPHY WITH ST-T CHANGE NONSPECIFIC ST & T-WAVE ABNORMALITY- INFERIOR LEADS BORDERLINE ECG COMPARED TO ECG 08/29/2022 12:59:44 ST-T WAVE ABNORMALITY IMPROVED Electronically Signed On 08-29-2022 14:26:22 MECHANICAL SERVICE SPECIALIST by Neymar Barnett D.O.
--- NOTE | 2022-08-29 15:21 | ED.GENADULT ---
HPI - General Adult General Chief complaint: Unspecified Stated complaint: abnormal EKG and hip infection after surgery Time Seen by Provider: 08/29/22 14:55 History of Present Illness HPI narrative: 57-year-old male presented emergency department for evaluation of worsening right hip pain. Patient reports he had a right hip replacement on June [address] Jacobo. Patient initially presented to [facility] for the chest and hip pain. They were concerned about some EKG abnormalities so he was referred to our emergency department. Patient states that he has been having intermittent chest pain. At [place] patient did have a troponin drawn that was within normal limits. Patient did have an elevated D-dimer. Patient does have a history of a CVA, back surgery and left shoulder repair. Related Data Home Medications Medication Instructions Recorded Confirmed multivitamin 1 tablet PO DAILY 02/10/21 06/21/22 amlodipine 5 mg tablet 5 mg PO DAILY 12/09/21 06/21/22 clopidogrel 75 mg tablet 75 mg PO DAILY 03/20/22 06/21/22 acetaminophen 650 mg 1,300 mg PO TID 05/26/22 06/21/22 tablet,extended release docusate sodium 100 mg capsule 100 mg PO DAILY 05/26/22 06/21/22 ketoconazole 2 % topical cream 1 applic topical BID 05/26/22 05/26/22 Allergies Allergy/AdvReac Type Severity Reaction Status Date / Time Penicillins Allergy Intermediate Hives Verified 08/29/22 11:25 cephalexin AdvReac Intermediate Nausea Verified 08/29/22 11:25 hydrocodone [From [place]] AdvReac Intermediate Nausea and Verified 08/29/22 11:25 Vomiting Review of Systems Review of Systems: CONSTITUTIONAL: Denies fever, chills, or sweats. EYES: Denies visual changes, redness, or discharge. ENT: Denies rhinorrhea, congestion, sore throat, or otalgia. CARDIOVASCULAR: Denies chest pain, palpitations, or edema. RESPIRATORY: Denies cough or dyspnea. GASTROINTESTINAL: Denies abdominal pain, nausea, vomiting, or diarrhea. GENITOURINARY: Denies dysuria or hematuria. SKIN: Right lateral hip erythema MUSCULOSKELETAL: Right hip pain NEUROLOGIC: Denies headache, numbness, or weakness. [facility] Past Medical History Medical History Acid reflux Acute medial meniscus tear of left knee Benign paroxysmal positional vertigo Cellulitis Chronic back pain Complete rotator cuff tear of left shoulder CVA, old, ataxia Degenerative arthritis of left knee Diabetes Dizziness JEWEL (generalized anxiety disorder) Heart beat abnormality Heart murmur Sees Dr Meehan History of dental problems Hyperlipidemia Hypertension Nontraumatic rupture of long head of biceps tendon of right shoulder Obesity Psoriasis Restless legs syndrome (RLS) Sleep apnea Stroke Type 2 diabetes mellitus Ulcer Wears glasses Surgical History Surgical History H/O knee surgery 2020 Dr. Crowley S/P total hip arthroplasty Rt ALIREZA 06/21/22 Status post reverse total arthroplasty of left shoulder 05/02/2022 Dr. Guille Guillaume at [place] Family History Family History Mother Family history of dementia Cerebrovascular accident Family history of malignant neoplasm Father Family history of malignant neoplasm Other Diabetes mellitus Family history of arthritis Family history of cardiovascular disease Family history of type 2 diabetes mellitus Hypertension Social History Social History Smoking status: Never smoker Second hand tobacco smoke exposure: No Additional smoking assessment comments: STATES OCCASIONALLY VAPES - LAST 05/25/22 PM Alcohol intake: current Drinks per week: 12 Alcohol use details: beer Substance use: never Substance use type: does not use Lack of Transportation: No Lack of Food: Never True Current Housing: I Have Housing Concerne
[2022-08-29 15:40] LABS: Basophils Percent Auto 0.3 % (0.2-1.2); Eosinophils Absolute Auto 0.1 K/mm3 (0-0.3); Eosinophils Percent Auto 0.9 % (0-4.4); Hematocrit 35.6 % (42.0-52.0); Hemoglobin 11.5 g/dL (14.0-18.0); Immature Granulocyte Absolute 0.04 K/mm3 (0.00-0.031); Immature Granulocyte Percent A 0.6 % (0-0.5); Lymphocytes Percent Auto 16.3 % (18.3-44.2); Mean Corpuscular HGB Conc 32.3 g/dl (32-36); Mean Corpuscular Hemoglobin 30.7 pg (26-34); Mean Corpuscular Volume 95.2 fl (80-100); Monocytes Absolute Auto 0.7 K/mm3 (0.1-0.6); Monocytes Percent Auto 10.8 % (2.6-8.5); Neutrophils Absolute Auto 4.8 K/mm3 (1.3-6.7); Neutrophils Percent Auto 71.1 % (45.5-73.1); Platelet Count Result 149 k/mm3 (150-375); Red Blood Count 3.74 M/mm3 (4.6-6.20); White Blood Count 6.8 K/mm3 (4.5-10.0)
[2022-08-29 15:50] LABS: INR 1.1; Prothrombin Time 14.1 Seconds (11.1-14.7)
[2022-08-29 15:56] LABS: Alanine Aminotransferase 20 U/L (6-50); Albumin Level 3.7 g/dL (3.5-5.1); Alkaline Phosphatase 83 U/L (38-126); Anion Gap 5 mmol/L (8-16); Aspartate Amino Transferase 24 U/L (17-59); Bilirubin,Total 0.9 mg/dL (0.2-1.3); Blood Urea Nitrogen 18 mg/dL (9-20); Calcium 9.7 mg/dL (8.4-10.2); Carbon Dioxide 27 mmol/L (22-30); Chloride 104 mmol/L (98-107); Estimated CRCL calculation 115 ml/min; Estimated Glomerular Filt Rate > 60; Glucose 113 mg/dL (65-110); Potassium 3.5 mmol/L (3.4-5.0); Sodium 136 mmol/L (137-145)
[2022-08-29 16:05] LABS: Troponin I < 0.012 ng/mL (0.000-0.034)
[2022-08-29 16:09] LABS: CRP 26.9 mg/dL (<1.0)
[2022-08-29 16:34] LABS: Erythrocyte Sedimentation Rate 139 mm/hr (0-20)
--- NOTE | 2022-08-29 17:53 | PM.IMHP ---
H&P: HPI History of Present Illness Date/Time: 08/29/22 17:53 Chief Complaint: Right hip pain PMFSH Past Medical History Medical History (Updated 08/29/22 @ 21:19 by Sonia Woodall NP) Acid reflux Acute medial meniscus tear of left knee Benign paroxysmal positional vertigo Cellulitis Chronic back pain Complete rotator cuff tear of left shoulder CVA, old, ataxia Degenerative arthritis of left knee Degenerative disc disease Diabetes Dizziness JEWEL (generalized anxiety disorder) Heart beat abnormality Heart murmur Sees Dr Meehan History of dental problems Hyperlipidemia Hypertension Nontraumatic rupture of long head of biceps tendon of right shoulder Obesity Psoriasis Restless legs syndrome (RLS) Sleep apnea Stroke Type 2 diabetes mellitus Ulcer Wears glasses Surgical History Surgical History (Updated 08/29/22 @ 21:19 by Sonia Woodall NP) H/O knee surgery 2020 Dr. Crowley History of appendectomy History of back surgery Right L1-2 microscopic lumbar diskectomy right L2-3 hemilaminectomy right L5-S1 far lateral foraminotomy and microdiskectomy 02/28/22 S/P total hip arthroplasty Rt ALIREZA 06/21/22 Status post reverse total arthroplasty of left shoulder 05/02/2022 Dr. Guille Guillaume at [place] Family History Family History Mother Family history of dementia Cerebrovascular accident Family history of malignant neoplasm Father Family history of malignant neoplasm Other Diabetes mellitus Family history of arthritis Family history of cardiovascular disease Family history of type 2 diabetes mellitus Hypertension Social History Social History (Updated 08/29/22 @ 21:14 by Sonia Woodall NP) Social History: The patient lives with his and he has one daughter . He is unemployed. The patient is lifelong nonsmoker. Code status full code Smoking status: Never smoker Second hand tobacco smoke exposure: No Additional smoking assessment comments: STATES OCCASIONALLY VAPES - LAST 05/25/22 PM Alcohol intake: never Drinks per week: 12 Alcohol use details: beer Substance use: never Substance use type: does not use Lack of Transportation: No Lack of Food: Never True Current Housing: I Have Housing Concerned About Future Housing: No Difficulty Paying Gas/Electric Bills: No Difficulty Paying for Meds: No Currently Unemployed: No Education: High School Diploma/GED Difficulty w/ Childcare or Family Care: No Living arrangements: with family Spiritual care concerns: No Meds Home Medications and Allergies Home Medications Medication Instructions Recorded Confirmed Type multivitamin 1 tablet PO DAILY 02/10/21 06/21/22 History carvedilol 25 mg tablet 25 mg PO BID #180 tabs 12/06/21 06/21/22 Rx clonidine HCl 0.1 mg tablet 0.1 mg PO BID #180 tabs 12/06/21 06/21/22 Rx losartan 100 1 tablet PO DAILY #90 tabs 12/06/21 06/21/22 Rx mg-hydrochlorothiazide 12.5 mg tablet metformin 1,000 mg tablet 1,000 mg PO BID #180 tabs 12/06/21 06/21/22 Rx rosuvastatin 20 mg tablet 20 mg PO DAILY #90 tabs 12/06/21 06/21/22 Rx amlodipine 5 mg tablet 5 mg PO DAILY 12/09/21 06/21/22 History clopidogrel 75 mg tablet 75 mg PO DAILY 03/20/22 06/21/22 History docusate sodium 100 mg capsule 100 mg PO DAILY 05/26/22 06/21/22 History ketoconazole 2 % topical cream 1 applic topical BID 05/26/22 05/26/22 History diclofenac sodium 75 mg See Rx Instructions .Route 06/26/22 Rx tablet,delayed release .COMPLEX #60 tabs dulaglutide 1.5 mg/0.5 mL See Rx Instructions .Route 08/28/22 Rx subcutaneous pen injector .COMPLEX #6 mL (Trulicity) cyclobenzaprine 10 mg tablet 10 mg PO BID 08/29/22 08/29/22 History Allergies Allergy/AdvReac Type Severity Reaction Status Date / Time Penicillins Allergy Intermediate Hives Verified 08/29/22 11:25 cephalexin AdvReac Intermediate Nausea Verified 08/29/22 11:25 hydrocodo
[2022-08-29 19:08] LABS: Troponin I < 0.012 ng/mL (0.000-0.034)
[2022-08-29 21:40] LABS: Glucose Point of Care 152 mg/dl (65-105)
[2022-08-29] MEDS: cloNIDine HCL 0.1 MG TABLET PO (22:02)
[2022-08-29] MEDS: CYCLOBENZAPRINE HCL 10 MG TABLET PO (22:02)
[2022-08-29] MEDS: DOCUSATE SODIUM 100 MG CAPSULE PO (22:02)
[2022-08-29] MEDS: carvediloL 25 MG TABLET PO (22:02)
--- NOTE | 2022-08-29 22:30 | PCRCNOTE ---
pt will bring home cpap pt refused our s-9 do to mask
[2022-08-29] MEDS: traMADol HCL (*CRX) 25 MG TABLET PO (23:11)
[2022-08-29] MEDS: FAMOTIDINE 20 MG/2 ML VIAL IV PUSH (23:12)
[2022-08-30] VITALS (19 sets, daily range): BP systolic 106–153; BP diastolic 56–77; PULSE 77–92; RESP 12–20; TEMP 36.7–37.6; O2SAT 93–100
--- NOTE | 2022-08-30 | ECHO_ITS ---
Patient Info Name: Jose Rutledge Age: 57 years : 1965 Gender: Male Ht: 72 in Wt: 253 lbs BSA: 2.45 m2 HR: 81 bpm BP: 137 / 62 mmHg Technical Quality: Fair Exam Date: 08/30/2022 9:26 AM Exam Location: [facility] Patient Status: Inpatient Admit Date: 08/29/2022 Staff Ordering Physician: Sonia Woodall NP Fuel Distribution System Operator: Eusebio Green RDCS, RT Attending Provider: Leno Frye MD Referring Physician: Talisha SOLIZ; Exam Type: CA echo dop color flow w con Study Info Indications R01.1 - Cardiac murmur, unspecified Complete two-dimensional, color flow and Doppler transthoracic echocardiogram is performed with contrast to opacify the left ventricle and to improve the deliniation of the left ventricle endocardial borders. History/Risk Factors Hypertension: Yes Dyslipidemia: Yes Diabetic Therapy: Oral Myocardial Infarction (RI): No Congestive Heart Failure (CHF): Hx CHF Diabetes Mellitus: Type II COPD: No Tobacco Use: Never Deep Vein Thrombosis (DVT): None Dialysis: None Frailty Scale (CSHA): 2: Well Cardiac Arrest: No Summary 1. Left ventricular chamber dimension is normal. 2. Definity contrast administered improved wall motion interpretation. 3. Left ventricular systolic function is normal, estimated at 65-70%. 4. There is moderately increased left ventricular wall thickness. 5. The left ventricular diastolic function is grade I diastolic dysfunction. 6. E/e' 5 is not elevated. 7. Left atrial chamber dimension is mildly enlarged. 8. Right atrial chamber dimension is mildly enlarged. 9. There is severe aortic valve sclerosis. 10. There is moderate aortic valve stenosis with a peak velocity of 308.30 cm/s, mean gradient of 25 mmHg, and aortic valve area of 1.20 cm2. 11. There is trace aortic valve regurgitation. Recommendations * Continue medical therapy for diabetes. Left Ventricle E/e' 5 is not elevated. Definity contrast administered improved wall motion interpretation. Left ventricular chamber dimension is normal. Left ventricular systolic function is normal, estimated at 65-70%. There is moderately increased left ventricular wall thickness. The left ventricular diastolic function is grade I diastolic dysfunction. Right Ventricle Right ventricular systolic function is normal and with normal TAPSE 2.1 cm. Right ventricular chamber dimension is normal. Left Atria Left atrial chamber dimension is mildly enlarged. Right Atria Right atrial chamber dimension is mildly enlarged. Aortic Valve The aortic valve is trileaflet. There is severe aortic valve sclerosis. There is moderate aortic valve stenosis with a peak velocity of 308.30 cm/s, mean gradient of 25 mmHg, and aortic valve area of 1.20 cm2. There is trace aortic valve regurgitation. Pulmonic Valve There is no pulmonic regurgitation. Mitral Valve There is no mitral valve stenosis. There is no mitral valve regurgitation. Tricuspid Valve There is no tricuspid valve regurgitation. Pericardium/Pleural There is no pericardial effusion. Inferior Vena Cava Normal inferior vena cava with >50% collapse upon inspiration consistent with normal right atrial pressure, 5 mmHg. Aorta The aortic root size at the sinus of Valsalva is normal. Left Ventricular Outflow Tract Name Value Normal ------
[2022-08-30 05:41] LABS: Basophils Percent Auto 0.4 % (0.2-1.2); Eosinophils Absolute Auto 0.1 K/mm3 (0-0.3); Eosinophils Percent Auto 1.2 % (0-4.4); Hematocrit 32.4 % (42.0-52.0); Hemoglobin 10.6 g/dL (14.0-18.0); Immature Granulocyte Absolute 0.04 K/mm3 (0.00-0.031); Immature Granulocyte Percent A 0.7 % (0-0.5); Lymphocytes Absolute Auto 1.07 K/mm3 (0.9-3.2); Lymphocytes Percent Auto 18.9 % (18.3-44.2); Mean Corpuscular HGB Conc 32.7 g/dl (32-36); Mean Corpuscular Hemoglobin 30.5 pg (26-34); Mean Corpuscular Volume 93.4 fl (80-100); Mean Platelet Volume 9.8 fl (7.4-10.4); Monocytes Absolute Auto 0.7 K/mm3 (0.1-0.6); Monocytes Percent Auto 13.1 % (2.6-8.5); Neutrophils Absolute Auto 3.7 K/mm3 (1.3-6.7); Neutrophils Percent Auto 65.7 % (45.5-73.1); Platelet Count Result 153 k/mm3 (150-375); Red Blood Count 3.47 M/mm3 (4.6-6.20); White Blood Count 5.7 K/mm3 (4.5-10.0)
[2022-08-30 05:50] LABS: Magnesium 1.4 mg/dL (1.6-2.3)
[2022-08-30 05:53] LABS: Lactic Acid Reflex 0.9 mmol/L (0.7-2.0)
[2022-08-30 06:26] LABS: Hemoglobin A1C 5.5 % (<5.7)
--- NOTE | 2022-08-30 07:48 | WPDANESEPPF ---
Anes - Initial Pre Proc Eval Procedure: Operation Date: 08/30/22 11:15 Proposed Procedures p Incision and Drainage and Excision Arthroplasty with Possible Component Revision Right Hip, Possible Cement Spacer Placement - Tayo Jacobo MD Date/Time: 08/30/22 07:48 Surgeon: Hari Frye MD Pre Op Diagnosis: Septic Hip Patient Data Age: 57 Gender: M Height: 1.83 m Weight: 115 kg Last Vital Signs Temp 37.2 C 08/30/22 06:58 Pulse 92 08/30/22 06:58 Resp 18 08/30/22 06:58 BP 153/73 H 08/30/22 06:58 Pulse Ox 96 08/30/22 06:58 O2 Del Method Room Air 08/29/22 20:00 Allergies Allergy/AdvReac Type Severity Reaction Status Date / Time Penicillins Allergy Intermediate Hives Verified 08/30/22 10:38 cephalexin AdvReac Intermediate Nausea Verified 08/30/22 10:38 hydrocodone [From [facility]] AdvReac Intermediate Nausea and Verified 08/30/22 10:38 Vomiting Home Medications Medication Instructions Recorded Confirmed Type multivitamin 1 tablet PO DAILY 02/10/21 08/29/22 History carvedilol 25 mg tablet 25 mg PO BID #180 tabs 12/06/21 08/29/22 Rx clonidine HCl 0.1 mg tablet 0.1 mg PO BID #180 tabs 12/06/21 08/29/22 Rx losartan 100 1 tablet PO DAILY #90 tabs 12/06/21 08/29/22 Rx mg-hydrochlorothiazide 12.5 mg tablet metformin 1,000 mg tablet 1,000 mg PO BID #180 tabs 12/06/21 08/29/22 Rx rosuvastatin 20 mg tablet 20 mg PO DAILY #90 tabs 12/06/21 08/29/22 Rx amlodipine 5 mg tablet 5 mg PO DAILY 12/09/21 08/29/22 History clopidogrel 75 mg tablet 75 mg PO DAILY 03/20/22 08/29/22 History docusate sodium 100 mg capsule 100 mg PO BID 05/26/22 08/29/22 History ketoconazole 2 % topical cream 1 applic topical BID 05/26/22 08/29/22 History diclofenac sodium 75 mg See Rx Instructions .Route 06/26/22 08/29/22 Rx tablet,delayed release .COMPLEX #60 tabs dulaglutide 1.5 mg/0.5 mL See Rx Instructions .Route 08/28/22 08/29/22 Rx subcutaneous pen injector .COMPLEX #6 mL (Trulicity) cyclobenzaprine 10 mg tablet 10 mg PO BID 08/29/22 08/29/22 History Laboratory Tests 08/29/22 08/29/22 08/29/22 15:29 15:29 15:29 WBC 6.8 K/mm3 K/mm3 (4.5-10.0) RBC 3.74 M/mm3 L M/mm3 (4.6-6.20) Hgb 11.5 g/dL L g/dL (14.0-18.0) Hct 35.6 % L % (42.0-52.0) MCV 95.2 fl fl (80-100) MCH 30.7 pg pg (26-34) MCHC 32.3 g/dl g/dl (32-36) RDW 14.0 % % (11.5-14.5) Plt Count 149 k/mm3 L k/mm3 (150-375) MPV 10.0 fl fl (7.4-10.4) Immature Gran % (Auto) 0.6 % H % (0-0.5) Neut % (Auto) 71.1 % % (45.5-73.1) Lymph % (Auto) 16.3 % L % (18.3-44.2) [place] % (Auto) 10.8 % H % (2.6-8.5) Eos % (Auto) 0.9 % % (0-4.4) Baso % (Auto) 0.3 % % (0.2-1.2) Lymph # (Auto) 1.10 K/mm3 K/mm3 (0.9-3.2) [place] # (Auto) 0.7 K/mm3 H K/mm3 (0.1-0.6) Eos # (Auto) 0.1 K/mm3 K/mm3 (0-0.3) Baso # (Auto) 0.0 K/mm3 K/mm3 (0.0-0.1) Abs Immat Gran (auto) 0.04 K/mm3 H K/mm3 (0.00-0.031) Absolute Neuts (auto) 4.8 K/mm3 K/mm3 (1.3-6.7) Absolute Nucleated RBC 0.0 K/mm3 K/mm3 (0.0-0.012) Nucleated RBC % 0.0 % % (0.0-0.2) ESR 139 mm/hr H mm/hr (0-20) PT 14.1 Seconds Seconds (11.1-14.7) INR 1.1 APTT 46.0 SECONDS H SECONDS (22.3-36.8) Sodium 136 mmol/L L mmol/L (137-145) Potassium 3.5 mmol/L mmol/L (3.4-5.0) Chloride 104 mmol/L mmol/L (98-107) Carbon Dioxide 27 mmol/L mmol/L (22-30) Anion Gap 5 mmol/L L mmol/L (8-16) BUN 18 mg/dL mg/dL (9-20) Creatinine 0.80 mg/dL mg/dL (0.7-1.3) Estim Creat Clear Calc 115 ml/min ml/min Estimated GFR > 60 (59 - ) Glucose 113 mg/dL H mg/dL (65-110) POC Capillary Glucose Hemoglobin
[2022-08-30] MEDS: FAMOTIDINE 20 MG/2 ML VIAL IV PUSH (07:59)
[2022-08-30] MEDS: amLODIPine BESYLATE 5 MG TABLET PO (07:59)
[2022-08-30] MEDS: carvediloL 25 MG TABLET PO ×2 (07:59→20:14)
[2022-08-30] MEDS: CYCLOBENZAPRINE HCL 10 MG TABLET PO ×2 (07:59→17:35)
[2022-08-30] MEDS: cloNIDine HCL 0.1 MG TABLET PO ×2 (08:00→17:45)
[2022-08-30 08:18] LABS: Glucose Point of Care 126 mg/dl (65-105)
--- NOTE | 2022-08-30 08:26 | WPDHPUPDATE1 ---
History and Physical Update Update Date/Time: 08/30/22 08:26 History and Physical has been reviewed, including an updated exam of the patient. There are NO changes in the patient's condition. Risks, benefits, and alternatives have been discussed and questions answered. Patient agrees to proceed with procedure.
[2022-08-30] MEDS: PERFLUTREN LIPID MICROSPHERES 1.5 ML VIAL DILUTED TO 10 ML TOTAL VOLUME IV PUSH (09:44)
--- NOTE | 2022-08-30 09:44 | IVDEFINITY ---
Prior to administration of IV Definity the patient was educated on the risks and benefits of the imaging enhancing agent including potential adverse side effects. The patient verbalized understanding. Allergies were verified. No exclusion criteria were identified and at least one of the following inclusion criteria were met: 1) physician request, 2) patient technically difficult to image (per the [place] [employer] guidelines of two or more segments not discernable within the apical view), or 3) questionable left ventricular function. ?
[2022-08-30] MEDS: LACTATED RINGERS 1,000 ML 30 ML IV CONT ×2 (10:36→15:24)
[2022-08-30 11:30] LABS: Glucose Point of Care 106 mg/dl (65-105)
--- NOTE | 2022-08-30 11:38 | PM.CNOR ---
Assessment and Plan Assessment and plan (1) Abscess of right hip: Code(s): L02.415 - Cutaneous abscess of right lower limb Status: Acute Assessment and Plan: TAYLOR IS 9 WEEKS POSTOP R ALIREZA AND NOW WITH A PROBABLE ABSCESS TO THE RIGHT HIP. CT SCAN SHOWS THAT THE ABSCESS MAY BE SUPERFICIAL TO THE HIP JOINT PROPPER.. THIS IS CONSISTENT WITH HIS PHYSICAL EXAM FAR PASSIVE MOTION TO THE HIP. HISTORY, EXAM AND RADIOGRAPHS REVIEWED WITH THE PATIENT. REFERRING PHYSICIAN RECORDS AND IMAGES REVIEWED. CONDITION, NATURE, ETIOLOGY AND COURSE OF NATURAL HISTORY REVIEWED. CONSERVATIVE AND OPERATIVE TREATMENT OPTIONS REVIEWED WELL THE RISKS AND BENEFITS OF EACH. RECOMMEND I AND D OF RIGHT HIP. WE WILL EVALUATE THE TISSUES AT TIME OF SURGERY AND SEE IF THE ABSCESS IS DEEP TO THE SUBCUTANEOUS AND FASCIA LAYER. WE DISCUSSED ALL POSSIBILITIES INCLUDING I AND D OF SUBCUTANEOUS REGION IF THE ABSCESS IS CONTAINED OR COMPLETE RESECTION ARTHROPLASTY WITH ANTIBIOTIC SPACER PLACEMENT IF THE INFECTION IS DEEP. DISCUSSED NONOPERATIVE AND OPERATIVE TREATMENT OPTIONS WITH THE PATIENT. THE PATIENT'S QUESTIONS WERE ANSWERED. THE PATIENT DESIRES OPERATIVE TREATMENT. DISCUSSED __I AND D RIGHT HIP WITH POSSIBLE RESECTION ARTHROPLASTY AND ANTIBIOTIC SPACER PLACEMENT . RISKS OF SURGERY INCLUDING BUT NOT LIMITED TO NEUROVASCULAR DAMAGE, WOUND COMPLICATIONS, BLOOD CLOT, PULMONARY EMBOLUS, STROKE, MA, ANESTHETIC RISKS UP TO AND INCLUDING WERE REVIEWED. CONTINUED PAIN AND POSSIBLE DYSFUNCTION WERE EXPLAINED. NO GUARANTEES WERE OFFERED. THE PATIENT UNDERSTANDS AND WISHES TO PROCEED. (2) S/P total hip arthroplasty: Code(s): Z96.649 - Presence of unspecified artificial hip joint Status: Acute History of Present Illness HPI Consult date: 08/30/22 Chief complaint: Septic Hip Narrative: TAYLOR HAS A HISTORY OF RIGHT TOTAL HIP REPLACEMENT 9 WEEKS AGO. HE WAS DOING VERY WELL WITH MO PAIN. THIS PAST WEEKEND HE BEGAN HAVING SOME LATERAL HIP PAIN AND SUBSEQUENTLY NOTICED REDNESS TO THE LATERAL SIDE OF THE HIP. HE DENIES ANY GROIN OR ANTERIOR THIGH PAIN. HE WAS SEEN IN THE ED. HE WAS FOUND TO BE AFEBRILE. HIS WBC COUNT WAS NORMAL. HIS CRP WAS FOUND TO BE ELEVATED. HE WAS ALSO FOUND TO HAVE AN ABNORMAL EKG AND D DIMER VALUE. HE WAS THEN TRANSFERRED TO [facility] AND FOUND TO HAVE AN AREA OF INDURATION AND CELLULITIS TO THE LATERAL HIP REGION. HE HAS NO DRAINAGE TO THE WOUND. HE WAS COMPLAINING ONLY OF LATERAL HIP PAIN AND NO GROIN PAIN EVEN WITH PASSIVE MOTION. HE ALSO COMPLAINS OF SOME CHILLS WITH NO FVER AT HIS HOME THIS WEEKEND. Review of Systems Review of Systems: All systems reviewed & are unremarkable except as noted in HPI and below PMFSH Past Medical History Medical History Acid reflux Acute medial meniscus tear of left knee Anxiety Aortic stenosis mild to moderate Benign paroxysmal positional vertigo Cellulitis Chronic back pain Complete rotator cuff tear of left shoulder CVA, old, ataxia Degenerative arthritis of left knee Degenerative disc disease Diabetes Dizziness JEWEL (generalized anxiety disorder) Heart beat abnormality Heart murmur Sees Dr Meehan History of dental problems Hyperlipidemia Hypertension Nontraumatic rupture of long head of biceps tendon of right shoulder Obesity Psoriasis Restless legs syndrome (RLS) Sleep apnea Stroke Type 2 diabetes mellitus Ulcer Wears glasses Surgical History Surgical History H/O knee surgery 2020 Dr. Crowley History of appendectomy History of back surgery Right L1-2 microscopic lumbar diskectomy right L2-3 hemilaminectomy right L5-S1 far lateral foraminotomy and microdiskectomy 02/28/22 S/P total hip arthroplasty Rt ALIREZA 06/21/22 Status post reverse total arthroplasty of left shoulder 05/02/2022 Dr. Guille Guillaume at [place]
[2022-08-30] MEDS: TRANEXAMIC ACID 1,000 MG/10 ML AMPUL 1000 MG IV PUSH (12:39)
[2022-08-30] MEDS: VANCOMYCIN HCL IRRIGATION (13:04)
[2022-08-30] MEDS: NACL IRRIGATION (13:04)
[2022-08-30] MEDS: [UNRECOGNIZED DRUG - OTHER] IRRIGATION (13:04)
[2022-08-30] MEDS: GENTAMICIN BONE CEMENT REFOBACIN 1 EACH TOPICAL (14:07)
--- NOTE | 2022-08-30 15:37 | W.PM.PROC2 ---
Procedure Note - Detailed Date of Procedure 08/30/22 Pre-op Diagnosis SEPTIC RIGHT ALIREZA Post-op Diagnosis Same Procedure Performed RESECTION ARTHROPLASTY WITH ANTIBIOTIC SPACER PLACEMENT RIGHT HIP Surgeon Tayo Jacobo MD Senior Policy Advisor ANTOINETTE LÓPEZ MD Anesthesia General Indications RIGHT SEPTIC ALIREZA Findings ABSCESS RIGHT HIP Description of Procedure THE PATIENT WAS TAKEN TO THE OPERATING ROOM IN STABLE CONDITION AND WAS PLACED IN THE LATERAL DECUBITUS AND THE RIGHT LOWER EXTREMITY WAS PREPPED AND DRAPED IN THE STERILE FASHION. INCISION WAS MADE IN THE POSTERIOR LATERAL SIDE OF THE HIP OVER THE OLD SCAR, DOWN TO THE FASCIA LAYER. THE FASCIA WAS INCISED. GROSS PURULENCE WAS COMING FROM JUST DEEP TO THE SUBCUTANEOUS LAYER. DISSECTION CONTINUED PROXIMALLY AND DISTALLY UNTIL THE HIP JOINT WAS EXPOSED. THERE WAS PURULENCE DOWN TO THE IMPLANT. THE HIP WAS DISLOCATED. THE DECISION WAS MADE TO PREFORM A RESECTION ARTHROPLASTY. THE SCIATIC NERVE WAS IDENTIFIED. USING A FLEXIBLE THIN OSTEOTOME THE IMPLANT/BONE INTERFACE WAS DETACHED FROM THE FEMORAL COMPONENT. EVENTUALLY THE IMPLANT WAS REMOVED WITH MINIMAL BONE LOSS. THE SHELL OF THE FEMORAL CANAL WAS INTACT. THE FEMORAL CANAL WAS THEN DEBRIDED WITH A CURVED CURETTE UNTIL THERE WAS GOOD BLEEDING BONE. NEXT THE HIP JOINT CAPSULE WAS REMOVED AND A THOROUGH DEBRIDEMENT OF DEVITALIZED TISSUE OF SURROUNDING SYNOVIUM AND CAPSULE WAS PREFORMED. THE ACETABULUM WAS EXPOSED. THE POLY COMPONENT WAS REMOVED. FLEXIBLE OSTEOTOMES WERE USED TO DETACH THE ACETABULAR COMPONENT FROM THE IMPLANT/BONE INTERFACE. THE COMPONENT WAS REMOVED. THERE WAS MINIMAL BONE LOSS TO THE ACETABULUM. THE BONE WAS DEBRIDED TO REMOVE ANY DEVITALIZED TISSUE UNTIL THERE WAS GOOD BLEEDING BONE. THE HIP JOINT THEN WAS IRRIGATED WITH STERILE SALINE. NEXT A SOLUTION OF JOSE'S SLUSH COMPOSED OF STERILE BETADINE AND STERILE WATER, H202 AND STERILE WATER, AND GENTAMICIN AND VANCOMYCIN WAS USED THE IRRIGATE THE HIP JOINT. NEXT A TRIAL ANTIBIOTIC SPACER COMPONENT MEASURING 54 WITH MEDIUM LENGTH WAS PLACED. THE HIP WAS REDUCED AND TAKEN THROUGH A RANGE OF MOTION. THE LEG LENGTHS WERE GROSSLY EQUAL AND THE HIP JOINT WAS STABLE WITH MOTION. THE FEMORAL SHAFT WAS IRRIGATED AGAIN. A COPAL ANTIBIOTIC SPACER SYSTEM SIZE 54 MEDIUM AND LENGTH WAS CEMENTED IN PLACE WITH CEMENT IN THE [place] REGION ONLY, IN 15 DEGREES OF ANTEVERSION. ONCE THE CEMENT WAS HARD THE HIP WAS REDUCED AND TAKEN THROUGH A ROM AND FOUND TO BE STABLE. THE WOUND WAS IRRIGATED ONCE AGAIN. THE SCIATIC NERVE WAS IDENTIFIED AGAIN. A LARGE DRAIN WAS PLACED IN THE DEEP TISSUES.THE FASCIA WAS APPROXIMATED WITH No 2 QUIL AND THE SUB CUTANEOUS LAYER WITH 2-0 ABSORBABLE SUTURE. VAZQUEZ WERE PLACED ON THE SKIN AND STERILE DRESSING WAS APPLIED. PATIENT WAS PLACED BACK ON TO THE SUPINE POSITION AND WAS EXTUBATED Implants ANTIBIOTIC SPACER Estimated Blood Loss 1,750 Urine Output -200.0 Drains Yes Pathology Other (CULTURES SENT) Complications No immediate complications Condition Stable Disposition PACU
[2022-08-30] MEDS: fentaNYL CITRATE INJ (*CRX) 100 MCG/2 ML VIAL 25 MCG IV PUSH ×7 (15:52→16:51)
--- NOTE | 2022-08-30 16:56 | PM.IMPN ---
Progress Note: A&P Assessment and Plan (1) Abscess of right hip: Code(s): L02.415 - Cutaneous abscess of right lower limb Status: Acute Assessment and Plan: The patient has a history of right total hip arthroplasty on 06/21/[address] Jacobo. -ortho has been consulted. At this time ortho recommends no antibiotics. -the patient be NPO after midnight for washout. The patient went to the OR today. -blood cultures are pending. -lactic levels within normal limits (2) Sleep apnea: Code(s): G47.30 - Sleep apnea, unspecified Status: Chronic Assessment and Plan: Chronic, stable, continue with a CPAP and titrate to home settings. (3) Heart murmur: Code(s): R01.1 - Cardiac murmur, unspecified Status: Chronic Assessment and Plan: Chronic, previous echocardiogram showed moderate aortic stenosis in 2020. Patient did complain of chest pain at started in the ED. troponins negative x3. Stone EKG shows sinus rhythm with T-wave inversion in inferior leads. Repeat EKG in our ED shows sinus rhythm with nonspecific ST T wave changes in inferior leads. Transthoracic echocardiogram ordered and pending Continue current amlodipine, Coreg, clonidine, losartan, hydrochlorothiazide, and statin. Hold Plavix pre and postop (4) Type 2 diabetes mellitus: Code(s): E11.9 - Type 2 diabetes mellitus without complications Status: Chronic Assessment and Plan: Chronic, point of care glucose 106 preop hold metformin and Trulicity while inpatient. Trulicity is not on formulary but will consider resuming if patient is able to bring from home. Accu-Cheks AC and HS with sliding scale insulin and hypoglycemic protocol. A1c 5.5% (5) Hypertension: Code(s): I10 - Essential (primary) hypertension Status: Chronic Assessment and Plan: Chronic, BP 133/77 to 153/73, heart rate 79-92 Continue losartan, hydrochlorothiazide, Coreg, amlodipine and clonidine at home doses -p.r.n. hydralazine for SBP greater than 180 (6) Hyperlipidemia: Qualifiers: Hyperlipidemia type: mixed hyperlipidemia Qualified Code(s): E78.2 - Mixed hyperlipidemia Code(s): E78.5 - Hyperlipidemia, unspecified Status: Chronic Assessment and Plan: Chronic, stable,continue Crestor (7) CVA, old, ataxia: Code(s): I69.993 - Ataxia following unspecified cerebrovascular disease Status: Acute Assessment and Plan: History of stroke with residual ataxia Fall precautions, Continue antihypertensives and avoid hyper or hypotension Hold Plavix preop and resume when cleared by surgery Subjective Date/time seen: 08/30/22 16:56 Interval history: Patient is a 57-year-old male with multiple medical conditions status post right hip replacement on June 21 presented to the ED with complaints of intermittent chest pain and concerns for a right hip infection. In the ED CT lower extremity suggested multiloculated subcutaneous abscess to the lateral right hip happen negative for osteomyelitis or hardware lucency. WBC 5.2 patient's vitals were stable except for temp max 99.0 F. ESR and CRP were elevated on admission and cardiac workup showed a normal troponin I x3. He was admitted for orthopedic evaluation and OR washout of the right hip. Attempted to see patient multiple times today however he was off the floor for surgery and recovery. Discussed patient's case with nursing staff patient had new complaints or concerns. All documentation, lab work, imaging, vital signs, and medications reviewed since admission. Review of Systems Review of Systems: ROS unobtainable: Yes other (Patient off unit) Exam Narrative: I did not physically assessed patient today as he was off the medical floor and in surgery. Please see physical examination from the anesthesia and orthopedic team. Objective Data Vital Signs Vital Signs: Vital Signs - 24 hr 08/29/22 17
[2022-08-30] MEDS: MULTIVITAMINS THERAPEUTIC TAB (*BKC) 1 TABLET PO (17:33)
[2022-08-30] MEDS: ROSUVASTATIN 10 MG TABLET 20 MG PO (17:33)
[2022-08-30] MEDS: LOSARTAN POTASSIUM 100 MG TABLET PO (17:33)
[2022-08-30] MEDS: SENNA/DOCUSATE SODIUM TABLET 2 TAB PO (17:33)
[2022-08-30] MEDS: metFORMIN HCL 500 MG TABLET 1000 MG PO (17:34)
[2022-08-30] MEDS: MICONAZOLE NITRATE 2% CREAM 30 GM TUBE 1 APPLIC TOPICAL (17:34)
[2022-08-30] MEDS: oxyCODONE/ACETAMINOPHEN (*CRX) 10-325 MG TABLET 1 TAB PO (17:44)
[2022-08-30] MEDS: MAGNESIUM SULF 2 GM/WATER 50ML 2 GM/50 ML BAG IVPB (17:44)
[2022-08-30] MEDS: SODIUM CHLORIDE 0.9% IV 1,000 ML 125 ML IV CONT (17:44)
[2022-08-30 17:55] LABS: Glucose Point of Care 199 mg/dl (65-105)
[2022-08-30] MEDS: FAMOTIDINE 20 MG TABLET PO (20:16)
[2022-08-30 21:02] LABS: Glucose Point of Care 193 mg/dl (65-105)
[2022-08-30] MEDS: MORPHINE SULFATE (*CRX) 4 MG/ML INJ 3 MG IV PUSH (21:23)
[2022-08-31] VITALS (14 sets, daily range): BP systolic 88–118; BP diastolic 50–64; PULSE 72–88; RESP 14–17; TEMP 36.6–37.4; O2SAT 95–99
[2022-08-31] MEDS: oxyCODONE/ACETAMINOPHEN (*CRX) 10-325 MG TABLET 1 TAB PO ×3 (00:45→19:40)
[2022-08-31] MEDS: MORPHINE SULFATE (*CRX) 4 MG/ML INJ 3 MG IV PUSH ×4 (02:58→17:40)
[2022-08-31 05:31] LABS: Basophils Percent Auto 0.2 % (0.2-1.2); Eosinophils Percent Auto 0.2 % (0-4.4); Hemoglobin 9.4 g/dL (14.0-18.0); Immature Granulocyte Absolute 0.03 K/mm3 (0.00-0.031); Immature Granulocyte Percent A 0.7 % (0-0.5); Lymphocytes Absolute Auto 1.18 K/mm3 (0.9-3.2); Lymphocytes Percent Auto 28.2 % (18.3-44.2); Mean Corpuscular HGB Conc 32.4 g/dl (32-36); Mean Corpuscular Hemoglobin 30.4 pg (26-34); Mean Corpuscular Volume 93.9 fl (80-100); Mean Platelet Volume 9.6 fl (7.4-10.4); Monocytes Absolute Auto 0.9 K/mm3 (0.1-0.6); Monocytes Percent Auto 21.8 % (2.6-8.5); Neutrophils Percent Auto 48.9 % (45.5-73.1); Platelet Count Result 185 k/mm3 (150-375); Red Blood Count 3.09 M/mm3 (4.6-6.20); Red Cell Distribution Width 14.4 % (11.5-14.5); White Blood Count 4.2 K/mm3 (4.5-10.0)
[2022-08-31 05:47] LABS: Alanine Aminotransferase 21 U/L (6-50); Albumin Level 2.7 g/dL (3.5-5.1); Alkaline Phosphatase 63 U/L (38-126); Anion Gap 5 mmol/L (8-16); Aspartate Amino Transferase 29 U/L (17-59); Bilirubin,Total 0.8 mg/dL (0.2-1.3); Blood Urea Nitrogen 14 mg/dL (9-20); Calcium 7.5 mg/dL (8.4-10.2); Carbon Dioxide 25 mmol/L (22-30); Chloride 105 mmol/L (98-107); Estimated CRCL calculation 130 ml/min; Estimated Glomerular Filt Rate > 60; Glucose 172 mg/dL (65-110); Magnesium 1.8 mg/dL (1.6-2.3); Sodium 135 mmol/L (137-145)
[2022-08-31 08:28] LABS: Glucose Point of Care 159 mg/dl (65-105)
--- NOTE | 2022-08-31 08:31 | PM.IMPN ---
Progress Note: A&P Assessment and Plan (1) Abscess of right hip: Code(s): L02.415 - Cutaneous abscess of right lower limb Status: Acute Assessment and Plan: The patient has a history of right total hip arthroplasty on 06/21/[address] Jacobo. Management per Ortho. s/p resection arthroplasty with antibiotic spacer placement right hip Treated with pre/post-op IV Gentamicin and Vancomycin blood cultures negative to date. lactic levels 0.9 and stable. (2) Sleep apnea: Code(s): G47.30 - Sleep apnea, unspecified Status: Chronic Assessment and Plan: Chronic, stable, continue with a CPAP and titrate to home settings. (3) Heart murmur: Code(s): R01.1 - Cardiac murmur, unspecified Status: Chronic Assessment and Plan: Chronic, previous echocardiogram showed moderate aortic stenosis in 2020. Patient did complain of chest pain at started in the ED. troponins negative x3. Stone EKG shows sinus rhythm with T-wave inversion in inferior leads. Repeat EKG in our ED shows sinus rhythm with nonspecific ST T wave changes in inferior leads. Transthoracic echocardiogram shows moderate aortic stenosis similar to previous imaging. Continue current amlodipine, Coreg, clonidine, losartan, hydrochlorothiazide, and statin. Hold Plavix pre and postop (4) Type 2 diabetes mellitus: Qualifiers: Diabetes mellitus fdc insulin use: without fdc use Code(s): E11.9 - Type 2 diabetes mellitus without complications Status: Chronic Assessment and Plan: Chronic, point of care glucose 106 preop hold metformin and Trulicity while inpatient. Trulicity is not on formulary but will consider resuming if patient is able to bring from home. He takes his Trulicity on Mondays. Patient will bring in his medication from home if he is still here on Sunday of next week. Accu-Cheks AC and HS with sliding scale insulin and hypoglycemic protocol. A1c 5.5% (5) Hypertension: Qualifiers: Hypertension type: primary hypertension Qualified Code(s): I10 - Essential (primary) hypertension Code(s): I10 - Essential (primary) hypertension Status: Chronic Assessment and Plan: Chronic, BP 133/77 to 153/73, heart rate 79-92 Continue losartan, hydrochlorothiazide, Coreg, amlodipine and clonidine at home doses -p.r.n. hydralazine for SBP greater than 180 (6) Hyperlipidemia: Qualifiers: Hyperlipidemia type: mixed hyperlipidemia Qualified Code(s): E78.2 - Mixed hyperlipidemia Code(s): E78.5 - Hyperlipidemia, unspecified Status: Chronic Assessment and Plan: Chronic, stable,continue Crestor (7) CVA, old, ataxia: Code(s): I69.993 - Ataxia following unspecified cerebrovascular disease Status: Acute Assessment and Plan: History of stroke with residual ataxia Fall precautions, Continue antihypertensives and avoid hyper or hypotension Hold Plavix for now. (8) Anemia due to acute blood loss: Code(s): D62 - Acute posthemorrhagic anemia Status: Acute Assessment and Plan: Hgb 11 on admission. Baseline Hgb 9-13. EBL 1700 mL in OR and he received 1 unit PRBC. Hold plavix. Trend H/H Monitor drain output check iron panel (9) Chest pain: Code(s): R07.9 - Chest pain, unspecified Status: Acute Subjective Date/time seen: 08/31/22 08:31 Interval history: Patient is a 57-year-old male with multiple medical conditions status post right hip replacement on June 21 presented to the ED with complaints of intermittent chest pain and concerns for a right hip infection. In the ED CT lower extremity suggested multiloculated subcutaneous abscess to the lateral right hip happen negative for osteomyelitis or hardware lucency. WBC 5.2 patient's vitals were stable except for temp max 99.0 F. ESR and CRP were elevated on admission and cardiac workup showed a normal t
[2022-08-31] MEDS: polyethylene glycoL 3350 17 GM POWD.PACK PO (08:33)
[2022-08-31] MEDS: amLODIPine BESYLATE 5 MG TABLET PO (08:33)
[2022-08-31] MEDS: CLOPIDOGREL BISULFATE 75 MG TABLET PO (08:34)
[2022-08-31] MEDS: cloNIDine HCL 0.1 MG TABLET PO ×2 (08:35→17:40)
[2022-08-31] MEDS: MULTIVITAMINS THERAPEUTIC TAB (*BKC) 1 TABLET PO (08:35)
[2022-08-31] MEDS: carvediloL 25 MG TABLET PO ×2 (08:35→20:17)
[2022-08-31] MEDS: CYCLOBENZAPRINE HCL 10 MG TABLET PO ×2 (08:35→17:37)
[2022-08-31] MEDS: LOSARTAN POTASSIUM 100 MG TABLET PO (08:35)
[2022-08-31] MEDS: FAMOTIDINE 20 MG TABLET PO ×2 (08:35→20:18)
[2022-08-31] MEDS: hydroCHLOROthiazide 12.5 MG CAPSULE PO (08:35)
[2022-08-31] MEDS: ROSUVASTATIN 10 MG TABLET 20 MG PO (08:37)
[2022-08-31] MEDS: metFORMIN HCL 500 MG TABLET 1000 MG PO ×2 (08:37→17:38)
[2022-08-31] MEDS: SENNA/DOCUSATE SODIUM TABLET 2 TAB PO ×2 (08:56→17:39)
--- NOTE | 2022-08-31 10:34 | PM.PNORT ---
Progress Note: A&P Assessment and Plan (1) Septic arthritis of hip: Qualifiers: Septic arthritis organism: due to other bacteria Laterality: right Qualified Code(s): M00.851 - Arthritis due to other bacteria, right hip Code(s): M00.9 - Pyogenic arthritis, unspecified Status: Acute Assessment and Plan: postoperative day 1 status post removal of arthroplasty implants, debridement and placement of antibiotic spacer. Pain relatively well controlled. Able to get up to chair today. Knee immobilizer and toe-touch weight-bearing to start. G stain noncontributory. Cultures pending. Blood cultures negative to date. Continue with broad-spectrum antibiotics until identification. H&H holding. Patient did receive 1 unit of packed red blood cells intraoperatively. Continue to follow-up. PT/OT. Patient will ultimately need long-term IV antibiotics. Continue to follow cultures. Discussed disposition with rehab versus home with home health. Patient prefers home. Subjective Subjective Date/Time Seen: 08/31/22 10:34 Post Op day: 1 Principal diagnosis: Right septic hip arthritis Interval history: postoperative day 1 status post resection of right total hip arthroplasty implants, debridement and placement of antibiotic spacer. Patient awake and alert. Complains of some pain right hip. No other complaints. Able to get up to chair this morning. Exam Const: General: comfortable; No acute distress Resp: Effort & Inspection: normal respiratory effort and no audible wheezes Extrem: Right lower extremity: lower leg ( Negative Homans sign), ankle Details: normal ROM ( dorsiflexion and plantar flexion intact) and foot Details: vascular exam Details: dorsalis pedis pulse present and normal capillary refill, tendon exam Details: active flexion normal and active extension normal and motor-sensory exam Details: light-touch normal Location: in all toes; no edema Left lower extremity: normal to inspection, ankle Details: normal ROM and foot Details: vascular exam Details: dorsalis pedis pulse present and normal capillary refill and motor-sensory exam light-touch normal in all toes; no edema Psych: Other: Right hip dressing in place. Drain with sanguinous drainage. Objective Data Vital Signs Vital Signs: Vital Signs - 24 hr 08/30/22 15:24 08/30/22 15:35 08/30/22 15:50 Temperature 98.3 F Pulse Rate 82 78 79 Respiratory Rate 16 20 18 Blood Pressure 125/70 142/76 H 136/77 Pulse Oximetry 100 100 100 Oxygen Delivery Simple Face Mask Simple Face Mask Simple Face Mask Oxygen Flow Rate 6 6 6 08/30/22 16:05 08/30/22 16:15 08/30/22 16:20 Temperature Pulse Rate 77 80 Respiratory Rate 14 18 Blood Pressure 124/69 141/75 H Pulse Oximetry 100 98 96 Oxygen Delivery Simple Face Mask Room Air Room Air Oxygen Flow Rate 6 08/30/22 16:35 08/30/22 16:50 08/30/22 17:03 Temperature Pulse Rate 78 79 79 Respiratory Rate 16 16 16 Blood Pressure 122/73 124/68 133/77 Pulse Oximetry 97 96 93 Oxygen Delivery Room Air Room Air Room Air Oxygen Flow Rate 08/30/22 17:31 08/30/22 17:54 08/30/22 18:44 Temperature 98.4 F 98.3 F 98.9 F Pulse Rate 78 79 78 Respiratory Rate 16 12 18 Blood Pressure 123/62 128/65 116/67 Pulse Oximetry 99 97 98 Oxygen Delivery Oxygen Flow Rate 08/30/22 20:14 08/30/22 21:38 08/30/22 20:00 Temperature 99.7 F H Pulse Rate 83 82 82 Respiratory Rate 16 16 Blood Pressure 106/58 L Pulse Oximetry 96 96 Oxygen Delivery Room Air Oxygen Flow Rate 08/31/22 00:31 08/31/22 04:31 08/31/22 08:35 Temperature 97.8 F 99.3 F Pulse Rate 82 83 77 Respiratory Rate 14 16 Blood Pressure 115/60 118/64 Pulse Oximetry 97 98 Oxygen Delivery Oxygen Flow Rate 08/31/22 08:30 08/31/22 10:28 Temperature 98 F Pulse Rate 77 Respiratory Rate 16 Blood Pressure 109/56 L 90/50 L Pulse Oximetry 98 Oxygen Delivery Oxygen Flow Rate Intak
--- NOTE | 2022-08-31 10:42 | PCPTNOTE ---
Attempted PT evaluation. Per OT, pt's BP too low at this time. Will follow. RN aware.
--- NOTE | 2022-08-31 10:58 | WPDANESPN ---
Anes - Prog Note Post-Op Date/Time: 08/31/22 10:58 Cardiovascular status: normal Respiratory status: normal Airway patency: baseline Mental status: baseline Post-Op hydration status: normal Vital Signs: Last Vital Signs Temp 36.6 C 08/31/22 08:30 Pulse 77 08/31/22 08:35 Resp 16 08/31/22 08:30 BP 90/50 L 08/31/22 10:28 Pulse Ox 98 08/31/22 08:30 O2 Del Method Room Air 08/30/22 20:00 O2 Flow Rate 6 08/30/22 16:05 Pain Score (VAS): 09/15 I/O: Intake & Output 08/30/22 08/31/22 08/31/22 23:59 07:59 15:59 Intake Total 1308 800 180 Output Total 295 1000 Balance 1013 -200 180 Laboratory Tests 08/31/22 05:18 08/31/22 05:18 08/29/22 08/30/22 08/30/22 18:27 11:23 17:51 WBC RBC Hgb Hct MCV MCH MCHC RDW Plt Count MPV Immature Gran % (Auto) Neut % (Auto) Lymph % (Auto) [place] % (Auto) Eos % (Auto) Baso % (Auto) Lymph # (Auto) [place] # (Auto) Eos # (Auto) Baso # (Auto) Abs Immat Gran (auto) Absolute Neuts (auto) Absolute Nucleated RBC Nucleated RBC % Sodium Potassium Chloride Carbon Dioxide Anion Gap BUN Creatinine Estim Creat Clear Calc Estimated GFR Glucose POC Capillary Glucose 106 H 199 H Calcium Magnesium Total Bilirubin AST ALT Alkaline Phosphatase Total Protein Albumin Blood Type O Positive Antibody Screen Negative Crossmatch See Detail 08/30/22 08/31/22 08/31/22 20:20 05:18 05:18 WBC 4.2 L RBC 3.09 L Hgb 9.4 L Hct 29.0 L MCV 93.9 MCH 30.4 MCHC 32.4 RDW 14.4 Plt Count 185 MPV 9.6 Immature Gran % (Auto) 0.7 H Neut % (Auto) 48.9 Lymph % (Auto) 28.2 [place] % (Auto) 21.8 H Eos % (Auto) 0.2 Baso % (Auto) 0.2 Lymph # (Auto) 1.18 [place] # (Auto) 0.9 H Eos # (Auto) 0.0 Baso # (Auto) 0.0 Abs Immat Gran (auto) 0.03 Absolute Neuts (auto) 2.0 Absolute Nucleated RBC 0.0 Nucleated RBC % 0.0 Sodium 135 L Potassium 4.0 Chloride 105 Carbon Dioxide 25 Anion Gap 5 L BUN 14 Creatinine 0.70 Estim Creat Clear Calc 130 Estimated GFR > 60 Glucose 172 H POC Capillary Glucose 193 H Calcium 7.5 L Magnesium 1.8 Total Bilirubin 0.8 AST 29 ALT 21 Alkaline Phosphatase 63 Total Protein 6.0 L Albumin 2.7 L Blood Type Antibody Screen Crossmatch 08/31/22 08:26 WBC RBC Hgb Hct MCV MCH MCHC RDW Plt Count MPV Immature Gran % (Auto) Neut % (Auto) Lymph % (Auto) [place] % (Auto) Eos % (Auto) Baso % (Auto) Lymph # (Auto) [place] # (Auto) Eos # (Auto) Baso # (Auto) Abs Immat Gran (auto) Absolute Neuts (auto) Absolute Nucleated RBC Nucleated RBC % Sodium Potassium Chloride Carbon Dioxide Anion Gap BUN Creatinine Estim Creat Clear Calc Estimated GFR Glucose POC Capillary Glucose 159 H Calcium Magnesium Total Bilirubin AST ALT Alkaline Phosphatase Total Protein Albumin Blood Type Antibody Screen Crossmatch Microbiology 08/30/22 12:40 Hip Right Anaerobic Culture - Preliminary 08/30/22 12:59 Hip Right Anaerobic Culture - Preliminary 08/29/22 15:29 Blood Blood Culture - Preliminary 08/29/22 15:29 Blood Blood Culture - Preliminary Post-procedural complaints: none Patient Feedback: Patient satisfied with anesthetic care.
[2022-08-31 12:07] LABS: Glucose Point of Care 164 mg/dl (65-105)
--- NOTE | 2022-08-31 14:28 | PC.NURSE ---
On 08/31/22, the student, [Kamari Mcdonough], provided care and completed [facility] documentation on this patient. I have reviewed the student's documentation and agree with the findings.
[2022-08-31 17:32] LABS: Glucose Point of Care 156 mg/dl (65-105)
[2022-08-31] MEDS: RIVAROXABAN 10 MG TABLET PO (17:43)
[2022-08-31] MEDS: diazePAM (*CRX) 5 MG TABLET PO (20:21)
[2022-08-31 21:26] LABS: Glucose Point of Care 115 mg/dl (65-105)
[2022-09-01] VITALS (9 sets, daily range): BP systolic 109–125; BP diastolic 49–59; PULSE 76–88; RESP 14–17; TEMP 36.5–38.2; O2SAT 96–100
[2022-09-01] MEDS: MORPHINE SULFATE (*CRX) 4 MG/ML INJ 3 MG IV PUSH ×3 (00:54→14:28)
[2022-09-01] MEDS: oxyCODONE/ACETAMINOPHEN (*CRX) 10-325 MG TABLET 1 TAB PO ×3 (04:15→17:10)
[2022-09-01 06:10] LABS: Basophils Percent Auto 0.4 % (0.2-1.2); Eosinophils Absolute Auto 0.1 K/mm3 (0-0.3); Eosinophils Percent Auto 1.9 % (0-4.4); Hematocrit 26.3 % (42.0-52.0); Hemoglobin 8.5 g/dL (14.0-18.0); Immature Granulocyte Absolute 0.19 K/mm3 (0.00-0.031); Immature Granulocyte Percent A 3.7 % (0-0.5); Lymphocytes Absolute Auto 1.76 K/mm3 (0.9-3.2); Mean Corpuscular HGB Conc 32.3 g/dl (32-36); Mean Corpuscular Hemoglobin 30.6 pg (26-34); Mean Corpuscular Volume 94.6 fl (80-100); Mean Platelet Volume 9.7 fl (7.4-10.4); Monocytes Absolute Auto 0.8 K/mm3 (0.1-0.6); Monocytes Percent Auto 15.8 % (2.6-8.5); Neutrophils Absolute Auto 2.3 K/mm3 (1.3-6.7); Neutrophils Percent Auto 44.2 % (45.5-73.1); Platelet Count Result 177 k/mm3 (150-375); Red Blood Count 2.78 M/mm3 (4.6-6.20); Red Cell Distribution Width 14.1 % (11.5-14.5); White Blood Count 5.2 K/mm3 (4.5-10.0)
[2022-09-01 06:38] LABS: Alanine Aminotransferase 28 U/L (6-50); Albumin Level 2.8 g/dL (3.5-5.1); Alkaline Phosphatase 72 U/L (38-126); Anion Gap 3 mmol/L (8-16); Aspartate Amino Transferase 31 U/L (17-59); Bilirubin,Total 0.5 mg/dL (0.2-1.3); Blood Urea Nitrogen 13 mg/dL (9-20); Calcium 7.9 mg/dL (8.4-10.2); Carbon Dioxide 27 mmol/L (22-30); Chloride 102 mmol/L (98-107); Estimated CRCL calculation 115 ml/min; Estimated Glomerular Filt Rate > 60; Glucose 110 mg/dL (65-110); Potassium 3.9 mmol/L (3.4-5.0); Sodium 132 mmol/L (137-145)
[2022-09-01 06:42] LABS: CRP 8.5 mg/dL (<1.0)
[2022-09-01] MEDS: LOSARTAN POTASSIUM 100 MG TABLET PO (08:06)
[2022-09-01] MEDS: carvediloL 25 MG TABLET PO ×2 (08:06→20:18)
[2022-09-01] MEDS: metFORMIN HCL 500 MG TABLET 1000 MG PO ×2 (08:07→17:09)
[2022-09-01] MEDS: hydroCHLOROthiazide 12.5 MG CAPSULE PO (08:07)
[2022-09-01] MEDS: CYCLOBENZAPRINE HCL 10 MG TABLET PO ×3 (08:07→21:41)
[2022-09-01] MEDS: ROSUVASTATIN 10 MG TABLET 20 MG PO (08:07)
[2022-09-01] MEDS: SENNA/DOCUSATE SODIUM TABLET 2 TAB PO ×2 (08:08→17:09)
[2022-09-01] MEDS: MULTIVITAMINS THERAPEUTIC TAB (*BKC) 1 TABLET PO (08:08)
[2022-09-01] MEDS: FAMOTIDINE 20 MG TABLET PO ×2 (08:08→22:09)
[2022-09-01] MEDS: polyethylene glycoL 3350 17 GM POWD.PACK PO (08:08)
[2022-09-01] MEDS: amLODIPine BESYLATE 5 MG TABLET PO (08:09)
[2022-09-01 08:37] LABS: Glucose Point of Care 103 mg/dl (65-105)
[2022-09-01] MEDS: cloNIDine HCL 0.1 MG TABLET PO ×2 (09:18→17:21)
[2022-09-01 10:17] LABS: Vancomycin Trough 6.2 ug/mL (10.0-20.0)
[2022-09-01] MEDS: FERROUS SULFATE DRIED 142 MG TABCR PO (10:30)
[2022-09-01 12:26] LABS: Glucose Point of Care 199 mg/dl (65-105)
[2022-09-01] MEDS: cefTRIAXone 2 GM in SODIUM CHLORIDE 0.9% IV 100 ML 200 ML IVPB (12:56)
--- NOTE | 2022-09-01 13:19 | IDPHARM ---
Addendum entered by Lorne Rios PharmD 09/04/22 09:32: 09/04 Update - MSSA in second culture w/ MONALISA <0.25 to oxacillin, likely lending to the high susceptibility of ceftriaxone. The patient is currently on ceftriaxone 2g q24 - this regimen is recommended for his treatment given his previous intolerance to cephalexin. Spoke with consulting service (Santy Fernandez, Gabriela Jacobo) regarding plan for this patient given with provider Carline had stated regarding a planned 2-stage exchange on 09/01. Consider ceftriaxone 2g iv q24h for 8 weeks per discussion with MD Jacobo. Will no longer follow this patient in regards to this consult. Please consider reaching out if anything additional is needed. Thank you very much. Original Note: Subjective Pharmacy was consulted by Gabriela Jacobo regarding infectious diseases for Jose Rutledge. Jose Rutledge is a 57 year old M with concerns regarding a prosthetic joint infection of the hip. Background The patient is currently receiving Vancomycin and Ceftriaxone. The patient's PMH includes Diabetes and Psoriatic arthritis per Ray Crowley. Additionally, the patient's blood cultures are currently negative and of the cultures from the procedure are showing group B streptococcus. WBC is 5.2 and SCr is 0.8 mg/dL. Assessment/Recommendation/Discussion Spoke with the Marquez Crowley MD regarding this patient. Discussed that likely may be able to discontinue vancomycin in the coming days if the cultures do not show any additional growth or growth for which vancomycin coverage is not required. Ceftriaxone 2g IV q24h for 4-6 weeks was recommended to the provider given current culture growth. Thank you for the interesting consult. Lorne Rios, [place] [facility]/Antimicrobial Stewardship Pharmacist 09/01/22; [id number]
--- NOTE | 2022-09-01 13:49 | PM.IMPN ---
Progress Note: A&P Assessment and Plan (1) Abscess of right hip: Code(s): L02.415 - Cutaneous abscess of right lower limb Status: Acute Assessment and Plan: The patient has a history of right total hip arthroplasty on 06/21/[address] Jacobo. Management per Ortho. 08/30/22 s/p resection arthroplasty with antibiotic spacer placement right hip Treated with pre/post-op IV Gentamicin and Vancomycin Wound culture shows GBS growth Started Rocephin 2 grams IV Q24 hours, first dose 09/01/22. Continue IV Vancomycin pharmacy to dose until final culture results blood cultures negative to date. lactic levels 0.9 and stable. (2) Sleep apnea: Code(s): G47.30 - Sleep apnea, unspecified Status: Chronic Assessment and Plan: Chronic, stable, continue with a CPAP and titrate to home settings. (3) Heart murmur: Code(s): R01.1 - Cardiac murmur, unspecified Status: Chronic Assessment and Plan: Chronic, previous echocardiogram showed moderate aortic stenosis in 2020. Patient did complain of chest pain at started in the ED. troponins negative x3. Stone EKG shows sinus rhythm with T-wave inversion in inferior leads. Repeat EKG in our ED shows sinus rhythm with nonspecific ST T wave changes in inferior leads. Transthoracic echocardiogram shows moderate aortic stenosis similar to previous imaging. Continue current amlodipine, Coreg, clonidine, losartan, hydrochlorothiazide, and statin. 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 He takes his Trulicity on Mondays. Patient will bring in his medication from home if he is still here on Sunday of next week. Accu-Cheks AC and HS with sliding scale insulin and hypoglycemic protocol. A1c 5.5% Questionable neuropathy RLE since spinal surgery. Trial gabapentin 100 mg TID. Check B12 and folate. (5) Hypertension: Qualifiers: Hypertension type: primary hypertension Qualified Code(s): I10 - Essential (primary) hypertension Code(s): I10 - Essential (primary) hypertension Status: Chronic Assessment and Plan: Chronic, stable Continue losartan, hydrochlorothiazide, Coreg, amlodipine and clonidine at home doses -p.r.n. hydralazine for SBP greater than 180 (6) Hyperlipidemia: Qualifiers: Hyperlipidemia type: mixed hyperlipidemia Qualified Code(s): E78.2 - Mixed hyperlipidemia Code(s): E78.5 - Hyperlipidemia, unspecified Status: Chronic Assessment and Plan: Chronic, stable,continue Crestor (7) CVA, old, ataxia: Code(s): I69.993 - Ataxia following unspecified cerebrovascular disease Status: Acute Assessment and Plan: History of stroke with residual ataxia Fall precautions, Continue antihypertensives and avoid hyper or hypotension Resume plavix tomorrow morning. (8) Anemia due to acute blood loss: Code(s): D62 - Acute posthemorrhagic anemia Status: Acute Assessment and Plan: Hgb 11 on admission. Baseline Hgb 9-13. EBL 1700 mL in OR and he received 1 unit PRBC postop. Trend H/H Monitor drain output Add ferrous sulfate slow release tablet once daily x 8 weeks for postop blood loss anemia. (9) Chest pain: Code(s): R07.9 - Chest pain, unspecified Status: Acute Assessment and Plan: Noncardiac chest pain on admission. resolved. Troponin I x3, repeat EKG with nonspecific ST/Twave changes Time Spent With Patient Time:
--- NOTE | 2022-09-01 13:56 | PM.PNORT ---
Progress Note: A&P Assessment and Plan (1) Septic arthritis of hip: Qualifiers: Septic arthritis organism: due to other bacteria Laterality: right Qualified Code(s): M00.851 - Arthritis due to other bacteria, right hip Code(s): M00.9 - Pyogenic arthritis, unspecified Status: Acute Assessment and Plan: POD 2 RESECTION ARTHROPLASTY. WOUND WITH GROWTH OF GROUP B STREP. URINE CULTURE NEGATIVE. WILL CONTINUE WITH ANTIBIOTIC REGIMEN PER ID RECOMMENDATIONS. DC DRAIN, DC SANDOVAL. (2) Abscess of right hip: Code(s): L02.415 - Cutaneous abscess of right lower limb Status: Acute Subjective Subjective Date/Time Seen: 09/01/22 13:56 POD 2 DOING WELL. PAIN CONTROL IMPROVED. NO CALF PAIN Exam Extrem: Other: UVSS AFEBRILE DRESSING DRY. WOUND CLEAN. NEW DRESSING APPLIED NO DISCHARGE DRESSING APPLIED, DRAIN PULLED. NV INTACT CALF SOFT NON TENDER NEG HOMANS SIGN Objective Data Vital Signs Vital Signs: Vital Signs - 24 hr 08/31/22 16:08 08/31/22 18:10 08/31/22 18:47 Temperature 37.2 C 36.6 C Pulse Rate 78 Respiratory Rate 16 Blood Pressure 109/58 L Pulse Oximetry 95 97 Oxygen Delivery Room Air 08/31/22 20:17 08/31/22 20:00 08/31/22 21:37 Temperature 36.7 C Pulse Rate 88 88 72 Respiratory Rate 16 16 Blood Pressure 110/54 L Pulse Oximetry 97 99 Oxygen Delivery Room Air 09/01/22 00:51 09/01/22 02:54 09/01/22 06:44 Temperature 36.8 C 36.5 C Pulse Rate 84 76 Respiratory Rate 16 16 Blood Pressure 116/59 L 109/54 L Pulse Oximetry 97 96 Oxygen Delivery CPAP 09/01/22 07:54 09/01/22 08:06 09/01/22 09:50 Temperature 37.1 C Pulse Rate 77 81 Respiratory Rate 17 Blood Pressure 125/55 L Pulse Oximetry 97 Oxygen Delivery Room Air Intake/Output Intake/Output: Intake & Output 08/29/22 08/30/22 08/31/22 09/01/22 23:59 23:59 23:59 23:59 Intake Total 100 2258 1220 540 Output Total 295 1100 1245 Balance 100 1963 120 -705 Meds/Results Medications: Active Medications Generic Name Dose Route Start Last Admin Trade Name Bennett PRN Reason Stop Dose Admin Acetaminophen 650 mg 08/30/22 17:06 Acetaminophen 325 Mg Tablet PO Q6H PRN Mild Pain (1-3) or Fever Al Hydrox/Mg Hydrox/Simethicone 30 ml 08/30/22 17:06 Mag Hydrox/Al Hydrox/Simeth 30 Ml Udc PO Q6H PRN Indigestion Amlodipine Besylate 5 mg 08/30/22 09:00 09/01/22 08:09 Amlodipine Besylate 5 Mg Tablet PO 5 mg DAILY ANGEL Administration Carvedilol 25 mg 08/29/22 21:10 09/01/22 08:06 Carvedilol 25 Mg Tablet PO 25 mg Q12HR ANGEL Administration Clonidine HCl 0.1 mg 08/29/22 21:10 09/01/22 09:18 Clonidine Hcl 0.1 Mg Tablet PO 0.1 mg BID ANGEL Administration Clopidogrel Bisulfate 75 mg 08/30/22 09:00 08/31/22 08:34 Clopidogrel Bisulfate 75 Mg Tablet PO 75 mg DAILY [facility] Administration Cyclobenzaprine HCl 10 mg 09/01/22 13:47 Cyclobenzaprine Hcl 10 Mg Tablet PO Q8H [facility] Dextrose 12.5 gm 08/29/22 21:12 Dextrose 50% 25 Gm/50 Ml Syringe IV PUSH PRN PRN Hypoglycemia Protocol Diazepam 5 mg 08/30/22 17:06 08/31/22 20:21 Diazepam (*Crx) 5 Mg Tablet PO 5 mg Q6H PRN Administration Anxiety/Muscle Spasm Diclofenac Sodium 75 mg 08/29/22 21:10 Diclofenac Sod 75 Mg Tablet.Ec BY MOUTH BID PRN Pain Famotidine 20 mg 08/30/22 21:00 09/01/22 08:08 Famotidine 20 Mg Tablet PO 20 mg Q12HR [facility] Administration Ferrous Sulfate 142 mg 09/01/22 09:50 09/01/22 10:30 Ferrous Sulfate Dried 142 Mg Tabcr PO 142 mg DAILY@0800 [facility] Administration Gabapentin 100 mg 09/01/22 17:00 Gabapentin 100 Mg Capsule PO TID ANGEL Glucagon 1 mg 08/29/22 21:12 Glucagon For Inj 1 Mg Vial IM PRN PRN Hypoglycemia Protocol Glucose 15 gm 08/29/22 21:12 Glucose Oral Gel 15 Gm Of Glucse In 37.5 Gm Tube PO PRN PRN Hypoglycemia
[2022-09-01 17:04] LABS: Glucose Point of Care 124 mg/dl (65-105)
[2022-09-01] MEDS: GABAPENTIN 100 MG CAPSULE PO (17:09)
[2022-09-01] MEDS: RIVAROXABAN 10 MG TABLET PO (17:10)
[2022-09-01] MEDS: diazePAM (*CRX) 5 MG TABLET PO (20:19)
[2022-09-01 22:07] LABS: Glucose Point of Care 161 mg/dl (65-105)
[2022-09-02] VITALS (8 sets, daily range): BP systolic 106–114; BP diastolic 48–61; PULSE 70–84; RESP 16–21; TEMP 36.4–37.6; O2SAT 97–100
[2022-09-02] MEDS: oxyCODONE/ACETAMINOPHEN (*CRX) 10-325 MG TABLET 1 TAB PO ×3 (03:46→20:40)
[2022-09-02] MEDS: CYCLOBENZAPRINE HCL 10 MG TABLET PO ×3 (05:38→20:42)
[2022-09-02 06:02] LABS: Basophils Percent Auto 0.5 % (0.2-1.2); Eosinophils Absolute Auto 0.1 K/mm3 (0-0.3); Eosinophils Percent Auto 1.4 % (0-4.4); Hematocrit 27.9 % (42.0-52.0); Immature Granulocyte Percent A 7.2 % (0-0.5); Lymphocytes Absolute Auto 1.91 K/mm3 (0.9-3.2); Lymphocytes Percent Auto 22.9 % (18.3-44.2); Mean Corpuscular HGB Conc 32.3 g/dl (32-36); Mean Corpuscular Hemoglobin 30.6 pg (26-34); Mean Corpuscular Volume 94.9 fl (80-100); Mean Platelet Volume 9.8 fl (7.4-10.4); Monocytes Absolute Auto 1.2 K/mm3 (0.1-0.6); Monocytes Percent Auto 14.4 % (2.6-8.5); Neutrophils Absolute Auto 4.5 K/mm3 (1.3-6.7); Neutrophils Percent Auto 53.6 % (45.5-73.1); Nucleated Red Blood Cells Perc 0.2 % (0.0-0.2); Platelet Count Result 292 k/mm3 (150-375); Red Blood Count 2.94 M/mm3 (4.6-6.20); Red Cell Distribution Width 13.8 % (11.5-14.5); White Blood Count 8.3 K/mm3 (4.5-10.0)
[2022-09-02 06:16] LABS: Alanine Aminotransferase 35 U/L (6-50); Albumin Level 3.1 g/dL (3.5-5.1); Alkaline Phosphatase 86 U/L (38-126); Anion Gap 7 mmol/L (8-16); Aspartate Amino Transferase 32 U/L (17-59); Bilirubin,Total 0.5 mg/dL (0.2-1.3); Blood Urea Nitrogen 14 mg/dL (9-20); Calcium 8.3 mg/dL (8.4-10.2); Carbon Dioxide 25 mmol/L (22-30); Chloride 100 mmol/L (98-107); Estimated CRCL calculation 115 ml/min; Estimated Glomerular Filt Rate > 60; Glucose 199 mg/dL (65-110); Potassium 3.8 mmol/L (3.4-5.0); Sodium 132 mmol/L (137-145)
[2022-09-02 07:16] LABS: Folic Acid 17.2 ng/mL (2.76->20)
[2022-09-02 08:21] LABS: Glucose Point of Care 125 mg/dl (65-105)
[2022-09-02] MEDS: polyethylene glycoL 3350 17 GM POWD.PACK PO (08:45)
[2022-09-02] MEDS: carvediloL 25 MG TABLET PO ×2 (08:47→20:40)
[2022-09-02] MEDS: metFORMIN HCL 500 MG TABLET 1000 MG PO ×2 (08:47→16:58)
[2022-09-02] MEDS: FERROUS SULFATE DRIED 142 MG TABCR PO (08:47)
[2022-09-02] MEDS: ROSUVASTATIN 10 MG TABLET 20 MG PO (08:52)
[2022-09-02] MEDS: FAMOTIDINE 20 MG TABLET PO ×2 (08:52→20:42)
[2022-09-02] MEDS: hydroCHLOROthiazide 12.5 MG CAPSULE PO (08:52)
[2022-09-02] MEDS: SENNA/DOCUSATE SODIUM TABLET 2 TAB PO ×2 (08:53→16:58)
[2022-09-02] MEDS: GABAPENTIN 100 MG CAPSULE PO ×3 (08:55→16:58)
[2022-09-02] MEDS: LOSARTAN POTASSIUM 100 MG TABLET PO (08:55)
[2022-09-02] MEDS: MULTIVITAMINS THERAPEUTIC TAB (*BKC) 1 TABLET PO (08:56)
[2022-09-02] MEDS: MICONAZOLE NITRATE 2% CREAM 30 GM TUBE 1 APPLIC TOPICAL ×2 (08:56→16:59)
[2022-09-02] MEDS: amLODIPine BESYLATE 5 MG TABLET PO (09:00)
[2022-09-02] MEDS: CLOPIDOGREL BISULFATE 75 MG TABLET PO (09:06)
[2022-09-02] MEDS: cloNIDine HCL 0.1 MG TABLET PO ×2 (09:06→16:58)
--- NOTE | 2022-09-02 09:58 | PM.IMPN ---
Progress Note: A&P Assessment and Plan (1) Abscess of right hip: Code(s): L02.415 - Cutaneous abscess of right lower limb Status: Acute Assessment and Plan: The patient has a history of right total hip arthroplasty on 06/21/[address] Jacobo. Management per Ortho. 08/30/22 s/p resection arthroplasty with antibiotic spacer placement right hip Treated with pre/post-op IV Gentamicin and Vancomycin Wound culture shows GBS growth Started Rocephin 2 grams IV Q24 hours, first dose 09/01/22. Continue IV Vancomycin pharmacy to dose until final culture results blood cultures negative to date. lactic levels 0.9 and stable. (2) Sleep apnea: Code(s): G47.30 - Sleep apnea, unspecified Status: Chronic Assessment and Plan: Chronic, stable, continue with a CPAP and titrate to home settings. (3) Heart murmur: Code(s): R01.1 - Cardiac murmur, unspecified Status: Chronic Assessment and Plan: Chronic, previous echocardiogram showed moderate aortic stenosis in 2020. Patient did complain of chest pain at started in the ED. troponins negative x3. Stone EKG shows sinus rhythm with T-wave inversion in inferior leads. Repeat EKG in our ED shows sinus rhythm with nonspecific ST T wave changes in inferior leads. Transthoracic echocardiogram shows moderate aortic stenosis similar to previous imaging. Continue current amlodipine, Coreg, clonidine, losartan, hydrochlorothiazide, and statin. (4) Type 2 diabetes mellitus: Qualifiers: Diabetes mellitus complication status: without complication Diabetes mellitus fpc insulin use: without fpc use Qualified Code(s): E11.9 - Type 2 diabetes mellitus without complications Code(s): E11.9 - Type 2 diabetes mellitus without complications Status: Chronic Assessment and Plan: Chronic, point of care glucose 106 preop resumed metformin postop Trulicity is not on formulary but will consider resuming if patient is able to bring from home. He takes his Trulicity on Mondays. Patient will bring in his medication from home if he is still here on Sunday of next week. Accu-Cheks AC and HS with sliding scale insulin and hypoglycemic protocol. A1c 5.5% Questionable neuropathy RLE since spinal surgery. Trial gabapentin 100 mg TID. Check B12 and folate. (5) Hypertension: Qualifiers: Hypertension type: primary hypertension Qualified Code(s): I10 - Essential (primary) hypertension Code(s): I10 - Essential (primary) hypertension Status: Chronic Assessment and Plan: Chronic, stable Continue losartan, hydrochlorothiazide, Coreg, amlodipine and clonidine at home doses -p.r.n. hydralazine for SBP greater than 180 (6) Hyperlipidemia: Qualifiers: Hyperlipidemia type: mixed hyperlipidemia Qualified Code(s): E78.2 - Mixed hyperlipidemia Code(s): E78.5 - Hyperlipidemia, unspecified Status: Chronic Assessment and Plan: Chronic, stable,continue Crestor (7) CVA, old, ataxia: Code(s): I69.993 - Ataxia following unspecified cerebrovascular disease Status: Acute Assessment and Plan: History of stroke with residual ataxia Fall precautions, Continue antihypertensives and avoid hyper or hypotension Resume plavix tomorrow morning. (8) Anemia due to acute blood loss: Code(s): D62 - Acute posthemorrhagic anemia Status: Acute Assessment and Plan: Hgb 11 on admission. Baseline Hgb 9-13. EBL 1700 mL in OR and he received 1 unit PRBC postop. Trend H/H Monitor drain output Add ferrous sulfate slow release tablet once daily x 8 weeks for postop blood loss anemia. (9) Chest pain: Code(s): R07.9 - Chest pain, unspecified Status: Acute Assessment and Plan: Noncardiac chest pain on admission. resolved. Troponin I x3, repeat EKG with nonspecific ST/Twave changes Plan Patient requiring 2-3 p
--- NOTE | 2022-09-02 11:21 | PCOTNOTE ---
Attempted to see pt for Occupational Therapy treatment. Pt declined to participate at this time in any therapeutic tasks and/or self care tasks, stating I will take care of it later. Pt also states that he performed all his grooming earlier today. Due to increase pain and visitors present, therapist will attempt at a later time.
[2022-09-02 12:09] LABS: Glucose Point of Care 155 mg/dl (65-105)
[2022-09-02] MEDS: cefTRIAXone 2 GM in SODIUM CHLORIDE 0.9% IV 100 ML IVPB (12:25)
[2022-09-02] MEDS: MORPHINE SULFATE (*CRX) 4 MG/ML INJ 3 MG IV PUSH ×2 (12:26→17:07)
--- NOTE | 2022-09-02 12:34 | PM.PNORT ---
Progress Note: A&P Assessment and Plan (1) Septic arthritis of hip: Qualifiers: Septic arthritis organism: due to other bacteria Laterality: right Qualified Code(s): M00.851 - Arthritis due to other bacteria, right hip Code(s): M00.9 - Pyogenic arthritis, unspecified Status: Acute Assessment and Plan: POD 3 IMPROVING. AGREE WITH ABX MODIFICATION. AWAITING PIC LINE PLACEMENT. I STRONGLY RECOMMEND IN PATIENT REHAB FOR THIS PATIENT DUE TO HIS DISABILITY AND CARE HE WILL REQUIRE INCLUDING MAINLY THE AMOUNT OF REHAB HE WILL REQUIRE. HIS WEIGHT BEARING STATUS WILL NOT BE FULL WEIGHT BEARING UNTIL HE IS MEDICALLY STABLE FROM AN INFECTION STANDPOINT. I DO NOT FEEL THAT SNF PLACEMENT WILL BE THE BEST ALTERNATIVE FOR HIM DUE TO HIS MEDICAL CONDITION AND HIS REQUIREMENTS FOR REHABILITATION. Subjective Subjective Date/Time Seen: 09/02/22 12:35POD 3 DOING WELL. PAIN CONTROL IMPROVED. NO CALF PAIN Exam Extrem: Other: VSS AFEBRILE DRESSING WITH MINIMAL DRAINAGE THIGH SOFT, CALF SOFT, NEG HOMANS SIGN, NV INTACT Objective Data Vital Signs Vital Signs: Vital Signs - 24 hr 09/01/22 15:04 09/01/22 18:02 09/01/22 20:18 Temperature 36.8 C 38.2 C H Pulse Rate 82 84 88 Respiratory Rate 17 17 Blood Pressure 112/58 L 109/49 L Pulse Oximetry 98 97 Oxygen Delivery 09/01/22 20:00 09/01/22 21:54 09/02/22 00:12 Temperature 37.2 C 37.0 C Pulse Rate 88 80 81 Respiratory Rate 17 14 16 Blood Pressure 117/56 L 113/55 L Pulse Oximetry 97 100 98 Oxygen Delivery Room Air 09/02/22 06:19 09/02/22 08:47 09/02/22 09:10 Temperature 36.4 C Pulse Rate 78 78 Respiratory Rate 16 Blood Pressure 113/57 L 114/61 Pulse Oximetry 100 Oxygen Delivery 09/02/22 10:13 09/02/22 09:00 Temperature 36.9 C Pulse Rate 82 Respiratory Rate 16 Blood Pressure 109/49 L Pulse Oximetry 97 Oxygen Delivery Room Air Intake/Output Intake/Output: Intake & Output 08/30/22 08/31/22 09/01/22 09/02/22 23:59 23:59 23:59 23:59 Intake Total 2258 1220 3220 1220 Output Total 295 1100 1545 700 Balance 7700 563 9203 520 Meds/Results Medications: Active Medications Generic Name Dose Route Start Last Admin Trade Name Freq PRN Reason Stop Dose Admin Acetaminophen 650 mg 08/30/22 17:06 Acetaminophen 325 Mg Tablet PO Q6H PRN Mild Pain (1-3) or Fever Al Hydrox/Mg Hydrox/Simethicone 30 ml 08/30/22 17:06 Mag Hydrox/Al Hydrox/Simeth 30 Ml Udc PO Q6H PRN Indigestion Amlodipine Besylate 5 mg 08/30/22 09:00 09/02/22 09:00 Amlodipine Besylate 5 Mg Tablet PO 5 mg DAILY ANGEL Administration Carvedilol 25 mg 08/29/22 21:10 09/02/22 08:47 Carvedilol 25 Mg Tablet PO 25 mg Q12HR ANGEL Administration Clonidine HCl 0.1 mg 08/29/22 21:10 09/02/22 09:06 Clonidine Hcl 0.1 Mg Tablet PO 0.1 mg BID ANGEL Administration Clopidogrel Bisulfate 75 mg 08/30/22 09:00 09/02/22 09:06 Clopidogrel Bisulfate 75 Mg Tablet PO 75 mg DAILY ANGEL Administration Cyclobenzaprine HCl 10 mg 09/01/22 14:00 09/02/22 05:38 Cyclobenzaprine Hcl 10 Mg Tablet PO 10 mg Q8H ANGEL Administration Dextrose 12.5 gm 08/29/22 21:12 Dextrose 50% 25 Gm/50 Ml Syringe IV PUSH PRN PRN Hypoglycemia Protocol Diazepam 5 mg 08/30/22 17:06 09/01/22 20:19 Diazepam (*Crx) 5 Mg Tablet PO 5 mg Q6H PRN Administration Anxiety/Muscle Spasm Diclofenac Sodium 75 mg 08/29/22 21:10 Diclofenac Sod 75 Mg Tablet.Ec BY MOUTH BID PRN Pain Famotidine 20 mg 08/30/22 21:00 09/02/22 08:52 Famotidine 20 Mg Tablet PO 20 mg Q12HR ANGEL Administration Ferrous Sulfate 142 mg 09/01/22 09:50 09/02/22 08:47 Ferrous Sulfate Dried 142 Mg Tabcr PO 142 mg DAILY@0800 ANGEL Administration Gabapentin 100 mg 09/01/22 17:00 09/02/22 12:27 Gabapentin 100 Mg Capsule PO 100 mg TID ANGEL Administration Glucagon 1 mg 08/29/22
[2022-09-02 13:36] LABS: CRP 14.4 mg/dL (<1.0)
[2022-09-02] MEDS: diazePAM (*CRX) 5 MG TABLET PO (15:19)
[2022-09-02] MEDS: RIVAROXABAN 10 MG TABLET PO (17:00)
[2022-09-02 17:22] LABS: Glucose Point of Care 128 mg/dl (65-105)
[2022-09-02] MEDS: WATER FOR IRRIGATION, STERILE 1,000 ML BOTTLE 1000 ML (22:43)
[2022-09-03] VITALS (9 sets, daily range): BP systolic 100–142; BP diastolic 46–57; PULSE 76–87; RESP 16–20; TEMP 36.6–37.3; O2SAT 96–99
[2022-09-03] MEDS: MORPHINE SULFATE (*CRX) 4 MG/ML INJ 3 MG IV PUSH ×2 (01:16→12:12)
[2022-09-03] MEDS: oxyCODONE/ACETAMINOPHEN (*CRX) 10-325 MG TABLET 1 TAB PO ×2 (02:46→20:01)
[2022-09-03 05:01] LABS: Estimated CRCL calculation 68 ml/min; Estimated Glomerular Filt Rate 52
[2022-09-03] MEDS: CYCLOBENZAPRINE HCL 10 MG TABLET PO ×3 (06:08→21:06)
--- NOTE | 2022-09-03 07:51 | PM.IMPN ---
Progress Note: A&P Assessment and Plan (1) Abscess of right hip: Code(s): L02.415 - Cutaneous abscess of right lower limb Status: Acute Assessment and Plan: The patient has a history of right total hip arthroplasty on 06/21/[address] Jacobo. Management per Ortho. 08/30/22 s/p resection arthroplasty with antibiotic spacer placement right hip Treated with pre/post-op IV Gentamicin and Vancomycin Wound culture shows GBS growth Started Rocephin 2 grams IV Q24 hours, first dose 09/01/22. Antibiotic day 3 Increased BUN/Creatinine and GBS growth on hip cultures. WBC within normal limits and afebrile. Will DC Vancomycin for now (09/01-09/03). Repeat CBC in am. blood cultures negative to date. lactic levels 0.9 and stable. Awaiting sensitivities for hip culture. (2) Sleep apnea: Code(s): G47.30 - Sleep apnea, unspecified Status: Chronic Assessment and Plan: Chronic, stable, continue with a CPAP and titrate to home settings. (3) Heart murmur: Code(s): R01.1 - Cardiac murmur, unspecified Status: Chronic Assessment and Plan: Chronic, previous echocardiogram showed moderate aortic stenosis in 2020. Patient did complain of chest pain at started in the ED. troponins negative x3. Stone EKG shows sinus rhythm with T-wave inversion in inferior leads. Repeat EKG in our ED shows sinus rhythm with nonspecific ST T wave changes in inferior leads. Transthoracic echocardiogram shows moderate aortic stenosis similar to previous imaging. Continue current amlodipine, Coreg, clonidine, losartan, hydrochlorothiazide, and statin. (4) Type 2 diabetes mellitus: Qualifiers: Diabetes mellitus complication status: without complication Diabetes mellitus half-way insulin use: without half-way use Qualified Code(s): E11.9 - Type 2 diabetes mellitus without complications Code(s): E11.9 - Type 2 diabetes mellitus without complications Status: Chronic Assessment and Plan: Chronic, point of care glucose 106 preop resumed metformin postop Trulicity is not on formulary but will consider resuming if patient is able to bring from home. He takes his Trulicity on Mondays. Patient will bring in his medication from home if he is still here on Sunday of next week. Accu-Cheks AC and HS with sliding scale insulin and hypoglycemic protocol. A1c 5.5% Questionable neuropathy RLE since spinal surgery. Trial gabapentin 100 mg TID. B12 and folate within normal limits. (5) Hypertension: Qualifiers: Hypertension type: primary hypertension Qualified Code(s): I10 - Essential (primary) hypertension Code(s): I10 - Essential (primary) hypertension Status: Chronic Assessment and Plan: Chronic, stable Continue losartan, hydrochlorothiazide, Coreg, amlodipine and clonidine at home doses -p.r.n. hydralazine for SBP greater than 180 09/03 patient with soft BP today SBP 100/57 to 105/46. BUN/creatinine increased today. Will hold losartan/HCTZ for now. (6) Hyperlipidemia: Qualifiers: Hyperlipidemia type: mixed hyperlipidemia Qualified Code(s): E78.2 - Mixed hyperlipidemia Code(s): E78.5 - Hyperlipidemia, unspecified Status: Chronic Assessment and Plan: Chronic, stable,continue Crestor (7) CVA, old, ataxia: Code(s): I69.993 - Ataxia following unspecified cerebrovascular disease Status: Acute Assessment and Plan: History of stroke with residual ataxia Fall precautions, Continue antihypertensives and avoid hyper or hypotension Resumed plavix (8) Anemia due to acute blood loss: Code(s): D62 - Acute posthemorrhagic anemia Status: Acute Assessment and Plan: Hgb 11 on admission. Baseline Hgb 9-13. EBL 1700 mL in OR and he received 1 unit PRBC postop. Trend H/H Monitor drain output Added ferrous sulfate slow release tablet once daily x 8 weeks for postop blood loss anemia.
[2022-09-03 08:39] LABS: Glucose Point of Care 141 mg/dl (65-105)
[2022-09-03] MEDS: diazePAM (*CRX) 5 MG TABLET PO (08:47)
[2022-09-03] MEDS: ROSUVASTATIN 10 MG TABLET 20 MG PO (08:47)
[2022-09-03] MEDS: GABAPENTIN 100 MG CAPSULE PO ×3 (08:48→17:13)
[2022-09-03] MEDS: CLOPIDOGREL BISULFATE 75 MG TABLET PO (08:48)
[2022-09-03] MEDS: MULTIVITAMINS THERAPEUTIC TAB (*BKC) 1 TABLET PO (08:48)
[2022-09-03] MEDS: carvediloL 25 MG TABLET PO ×2 (08:49→19:59)
[2022-09-03] MEDS: amLODIPine BESYLATE 5 MG TABLET PO (08:49)
[2022-09-03] MEDS: metFORMIN HCL 500 MG TABLET 1000 MG PO ×2 (08:54→17:13)
[2022-09-03] MEDS: polyethylene glycoL 3350 17 GM POWD.PACK PO (08:54)
[2022-09-03] MEDS: SENNA/DOCUSATE SODIUM TABLET 2 TAB PO ×2 (08:54→17:13)
[2022-09-03] MEDS: FAMOTIDINE 20 MG TABLET PO ×2 (08:55→19:59)
[2022-09-03] MEDS: MICONAZOLE NITRATE 2% CREAM 30 GM TUBE 1 APPLIC TOPICAL ×2 (08:56→17:14)
[2022-09-03] MEDS: cloNIDine HCL 0.1 MG TABLET PO ×2 (09:01→17:14)
--- NOTE | 2022-09-03 09:14 | PM.PNORT ---
Progress Note: A&P Assessment and Plan (1) Septic arthritis of hip: Qualifiers: Septic arthritis organism: due to other bacteria Laterality: right Qualified Code(s): M00.851 - Arthritis due to other bacteria, right hip Code(s): M00.9 - Pyogenic arthritis, unspecified Status: Acute Assessment and Plan: postoperative day 4 status post removal of arthroplasty implants, debridement and placement of antibiotic spacer. Pain rt hip stable. Able to get up to chair today. Knee immobilizer and toe-touch weight-bearing. Group B strep. Sensitivities pending. Plan for PICC line tomorrow. H&H holding. Patient did receive 1 unit of packed red blood cells intraoperatively. Continue to follow-up. PT/OT. Subjective Subjective Date/Time Seen: 09/03/22 09:14 Post Op day: 4 Principal diagnosis: Right septic hip arthritis Interval history: patient up in chair. Pain improved today. Feels better with knee immobilizer off. Exam Const: General: comfortable; No acute distress Resp: Effort & Inspection: normal respiratory effort and no audible wheezes Extrem: Right lower extremity: lower leg ( Negative Homans sign), ankle Details: normal ROM ( dorsiflexion and plantar flexion intact) and foot Details: vascular exam Details: dorsalis pedis pulse present and normal capillary refill, tendon exam Details: active flexion normal and active extension normal and motor-sensory exam Details: light-touch normal Location: in all toes; no edema Left lower extremity: normal to inspection, ankle Details: normal ROM and foot Details: vascular exam Details: dorsalis pedis pulse present and normal capillary refill and motor-sensory exam light-touch normal in all toes; no edema Psych: Other: Right hip dressing in place. Objective Data Vital Signs Vital Signs: Vital Signs - 24 hr 09/02/22 10:13 09/02/22 20:00 09/02/22 20:40 Temperature 98.5 F 99.6 F Pulse Rate 82 79 70 Respiratory Rate 16 21 H Blood Pressure 109/49 L 106/48 L Pulse Oximetry 97 100 Oxygen Delivery 09/03/22 00:30 09/02/22 23:38 09/03/22 06:00 Temperature 99.1 F 97.9 F Pulse Rate 79 84 78 Respiratory Rate 20 20 Blood Pressure 100/57 L 106/46 L Pulse Oximetry 98 97 98 Oxygen Delivery CPAP 09/03/22 08:49 Temperature Pulse Rate 76 Respiratory Rate Blood Pressure Pulse Oximetry Oxygen Delivery Intake/Output Intake/Output: Intake & Output 08/31/22 09/01/22 09/02/22 09/03/22 23:59 23:59 23:59 23:59 Intake Total 1220 3220 2610 940 Output Total 1100 1545 700 Balance 120 1675 1910 940 Meds/Results Medications: Active Medications Generic Name Dose Route Start Last Admin Trade Name Freq PRN Reason Stop Dose Admin Acetaminophen 650 mg 08/30/22 17:06 Acetaminophen 325 Mg Tablet PO Q6H PRN Mild Pain (1-3) or Fever Al Hydrox/Mg Hydrox/Simethicone 30 ml 08/30/22 17:06 Mag Hydrox/Al Hydrox/Simeth 30 Ml Udc PO Q6H PRN Indigestion Amlodipine Besylate 5 mg 08/30/22 09:00 09/03/22 08:49 Amlodipine Besylate 5 Mg Tablet PO 5 mg DAILY ANGEL Administration Carvedilol 25 mg 08/29/22 21:10 09/03/22 08:49 Carvedilol 25 Mg Tablet PO 25 mg Q12HR ANGEL Administration Clonidine HCl 0.1 mg 08/29/22 21:10 09/03/22 09:01 Clonidine Hcl 0.1 Mg Tablet PO 0.1 mg BID ANGEL Administration Clopidogrel Bisulfate 75 mg 08/30/22 09:00 09/03/22 08:48 Clopidogrel Bisulfate 75 Mg Tablet PO 75 mg DAILY ANGEL Administration Cyclobenzaprine HCl 10 mg 09/01/22 14:00 09/03/22 06:08 Cyclobenzaprine Hcl 10 Mg Tablet PO 10 mg Q8H ANGEL Administration Dextrose 12.5 gm 08/29/22 21:12 Dextrose 50% 25 Gm/50 Ml Syringe IV PUSH PRN PRN Hypoglycemia Protocol Diazepam 5 mg 08/30/22 17:06 09/03/22 08:47 Diazepam (*Crx) 5 Mg Tablet PO 5 mg Q6H PRN Administration Anxiety/Muscle Spasm Diclofenac Sodium 75 mg 08/29/22 21:10
[2022-09-03] MEDS: FERROUS SULFATE DRIED 142 MG TABCR PO (09:52)
--- NOTE | 2022-09-03 10:59 | PCPTNOTE ---
Pt declined therapy treatment this date due to being fatigued after OT session this morning, requested that therapist come back later.
[2022-09-03 11:51] LABS: Glucose Point of Care 121 mg/dl (65-105)
[2022-09-03] MEDS: cefTRIAXone 2 GM in SODIUM CHLORIDE 0.9% IV 100 ML 200 ML IVPB (12:11)
[2022-09-03] MEDS: BISACODYL 10 MG SUPPOSITORY RECTAL (14:26)
[2022-09-03 16:55] LABS: Glucose Point of Care 145 mg/dl (65-105)
[2022-09-03] MEDS: ACETAMINOPHEN 325 MG TABLET 650 MG PO (17:12)
[2022-09-03] MEDS: RIVAROXABAN 10 MG TABLET PO (17:13)
[2022-09-03] MEDS: oxyCODONE/ACETAMINOPHEN (*CRX) 5-325 MG TABLET 1 TABLET PO (17:21)
[2022-09-03 20:18] LABS: Glucose Point of Care 133 mg/dl (65-105)
[2022-09-04] MEDS: oxyCODONE/ACETAMINOPHEN (*CRX) 10-325 MG TABLET 1 TAB PO ×2 (04:11→17:07)
[2022-09-04] MEDS: CYCLOBENZAPRINE HCL 10 MG TABLET PO ×3 (05:04→21:02)
[2022-09-04 05:10] VITALS: BP 100/49; PULSE 77; RESP 18; TEMP 36.9; O2SAT 98
[2022-09-04] MEDS: diazePAM (*CRX) 5 MG TABLET PO ×4 (06:00→21:05)
[2022-09-04 06:21] LABS: Basophils Percent Auto 0.4 % (0.2-1.2); Eosinophils Absolute Auto 0.2 K/mm3 (0-0.3); Hematocrit 25.7 % (42.0-52.0); Hemoglobin 8.4 g/dL (14.0-18.0); Lymphocytes Absolute Auto 1.77 K/mm3 (0.9-3.2); Lymphocytes Percent Auto 22.1 % (18.3-44.2); Mean Corpuscular HGB Conc 32.7 g/dl (32-36); Mean Corpuscular Hemoglobin 30.7 pg (26-34); Mean Corpuscular Volume 93.8 fl (80-100); Mean Platelet Volume 9.6 fl (7.4-10.4); Monocytes Percent Auto 12.6 % (2.6-8.5); Neutrophils Absolute Auto 4.6 K/mm3 (1.3-6.7); Neutrophils Percent Auto 57.9 % (45.5-73.1); Platelet Count Result 394 k/mm3 (150-375); Red Blood Count 2.74 M/mm3 (4.6-6.20); Red Cell Distribution Width 13.8 % (11.5-14.5)
[2022-09-04 06:39] LABS: Albumin Level 3.1 g/dL (3.5-5.1); Anion Gap 7 mmol/L (8-16); Blood Urea Nitrogen 34 mg/dL (9-20); Calcium 8.1 mg/dL (8.4-10.2); Carbon Dioxide 24 mmol/L (22-30); Chloride 101 mmol/L (98-107); Estimated CRCL calculation 40 ml/min; Estimated Glomerular Filt Rate 28; Glucose 173 mg/dL (65-110); Magnesium 2.2 mg/dL (1.6-2.3); Phosphorus 5.5 mg/dL (2.5-4.5); Potassium 3.8 mmol/L (3.4-5.0); Sodium 132 mmol/L (137-145)
[2022-09-04 08:31] LABS: Glucose Point of Care 140 mg/dl (65-105)
--- NOTE | 2022-09-04 08:47 | P.PNIM_ITS ---
Progress Note: A&P Assessment and Plan (1) Abscess of right hip: Code(s): L02.415 - Cutaneous abscess of right lower limb Status: Acute Assessment and Plan: The patient has a history of right total hip arthroplasty on 06/21/[address] Jacobo. Management per Ortho. 08/30/22 s/p resection arthroplasty with antibiotic spacer placement right hip * Treated with pre/post-op IV Gentamicin and Vancomycin * Started Rocephin 2 grams IV Q24 hours, first dose 09/01/22. Antibiotic day 3 * Increased BUN/Creatinine and GBS growth on hip cultures. WBC within normal limits and afebrile. Will DC Vancomycin for now (09/01-09/03). Repeat CBC in am. * blood cultures negative to date. * lactic levels 0.9 and stable. * Awaiting sensitivities for hip culture - showing MSSA. Group B strep sensitivities pending. (2) Sleep apnea: Code(s): G47.30 - Sleep apnea, unspecified Status: Chronic Assessment and Plan: Chronic, stable, continue with a CPAP and titrate to home settings. (3) Heart murmur: Code(s): R01.1 - Cardiac murmur, unspecified Status: Chronic Assessment and Plan: Chronic, previous echocardiogram showed moderate aortic stenosis in 2020. Patient did complain of chest pain at started in the ED. troponins negative x3. Stone EKG shows sinus rhythm with T-wave inversion in inferior leads. Repeat EKG in our ED shows sinus rhythm with nonspecific ST T wave changes in inferior leads. * Transthoracic echocardiogram shows moderate aortic stenosis similar to previous imaging. * Continue current amlodipine, Coreg, clonidine, losartan, hydrochlorothiazide, and statin. 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 He takes his Trulicity on Mondays. Patient will bring in his medication from home if he is still here on Sunday of next week. * Accu-Cheks AC and HS with sliding scale insulin and hypoglycemic protocol. * A1c 5.5% * Questionable neuropathy RLE since spinal surgery. Trial gabapentin 100 mg TID. B12 and folate within normal limits. (5) Hypertension: Qualifiers: Hypertension type: primary hypertension Qualified Code(s): I10 - Essential (primary) hypertension Code(s): I10 - Essential (primary) hypertension Status: Chronic Assessment and Plan: Chronic, soft BP with elevated renal function suggesting pre-renal ALEJANDRA. * Hold losartan and HCTZ, starting 09/03 * Decrease coreg dose 12.5 mg BID, starting 09/04. * Cotninue amlodipine and clonidine (6) Hyperlipidemia: Qualifiers: Hyperlipidemia type: mixed hyperlipidemia Qualified Code(s): E78.2 - Mixed hyperlipidemia Code(s): E78.5 - Hyperlipidemia, unspecified Status: Chronic Assessment and Plan: Chronic, stable * continue Crestor (7) CVA, old, ataxia: Code(s): I69.993 - Ataxia following unspecified cerebrovascular disease Status: Acute Assessment and Plan: History of stroke with residual ataxia * Fall precautions, * Continue antihypertensives and avoid hyper or hypotension * Resumed plavix and cont
--- NOTE | 2022-09-04 08:47 | PM.IMPN ---
Progress Note: A&P Assessment and Plan (1) Abscess of right hip: Code(s): L02.415 - Cutaneous abscess of right lower limb Status: Acute Assessment and Plan: The patient has a history of right total hip arthroplasty on 06/21/[address] Jacobo. Management per Ortho. 08/30/22 s/p resection arthroplasty with antibiotic spacer placement right hip Treated with pre/post-op IV Gentamicin and Vancomycin Started Rocephin 2 grams IV Q24 hours, first dose 09/01/22. Antibiotic day 3 Increased BUN/Creatinine and GBS growth on hip cultures. WBC within normal limits and afebrile. Will DC Vancomycin for now (09/01-09/03). Repeat CBC in am. blood cultures negative to date. lactic levels 0.9 and stable. Awaiting sensitivities for hip culture - showing MSSA. Group B strep sensitivities pending. (2) Sleep apnea: Code(s): G47.30 - Sleep apnea, unspecified Status: Chronic Assessment and Plan: Chronic, stable, continue with a CPAP and titrate to home settings. (3) Heart murmur: Code(s): R01.1 - Cardiac murmur, unspecified Status: Chronic Assessment and Plan: Chronic, previous echocardiogram showed moderate aortic stenosis in 2020. Patient did complain of chest pain at started in the ED. troponins negative x3. Stone EKG shows sinus rhythm with T-wave inversion in inferior leads. Repeat EKG in our ED shows sinus rhythm with nonspecific ST T wave changes in inferior leads. Transthoracic echocardiogram shows moderate aortic stenosis similar to previous imaging. Continue current amlodipine, Coreg, clonidine, losartan, hydrochlorothiazide, and statin. 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 He takes his Trulicity on Mondays. Patient will bring in his medication from home if he is still here on Sunday of next week. Accu-Cheks AC and HS with sliding scale insulin and hypoglycemic protocol. A1c 5.5% Questionable neuropathy RLE since spinal surgery. Trial gabapentin 100 mg TID. B12 and folate within normal limits. (5) Hypertension: Qualifiers: Hypertension type: primary hypertension Qualified Code(s): I10 - Essential (primary) hypertension Code(s): I10 - Essential (primary) hypertension Status: Chronic Assessment and Plan: Chronic, soft BP with elevated renal function suggesting pre-renal ALEJANDRA. Hold losartan and HCTZ, starting 09/03 Decrease coreg dose 12.5 mg BID, starting 09/04. Cotninue amlodipine and clonidine (6) Hyperlipidemia: Qualifiers: Hyperlipidemia type: mixed hyperlipidemia Qualified Code(s): E78.2 - Mixed hyperlipidemia Code(s): E78.5 - Hyperlipidemia, unspecified Status: Chronic Assessment and Plan: Chronic, stable continue Crestor (7) CVA, old, ataxia: Code(s): I69.993 - Ataxia following unspecified cerebrovascular disease Status: Acute Assessment and Plan: History of stroke with residual ataxia Fall precautions, Continue antihypertensives and avoid hyper or hypotension Resumed plavix and continue statins. (8) Anemia due to acute blood loss: Code(s): D62 - Acute posthemorrhagic anemia Status: Acute Assessment and Plan: Hgb 11 on admission. Baseline Hgb 9-13. EBL 1700 mL in OR and he received 1 unit PRBC postop. Trend H/H Added ferrous sulfate slow release tablet once daily x 8 weeks for postop blood loss anemia. stable H/H (9) Chest pain: Qu
[2022-09-04] MEDS: MULTIVITAMINS THERAPEUTIC TAB (*BKC) 1 TABLET PO (08:59)
[2022-09-04] MEDS: SENNA/DOCUSATE SODIUM TABLET 2 TAB PO ×2 (09:00→17:08)
[2022-09-04] MEDS: ROSUVASTATIN 10 MG TABLET 20 MG PO (09:00)
[2022-09-04] MEDS: FERROUS SULFATE DRIED 142 MG TABCR PO (09:00)
[2022-09-04] MEDS: cloNIDine HCL 0.1 MG TABLET PO ×2 (09:01→17:08)
[2022-09-04] MEDS: CLOPIDOGREL BISULFATE 75 MG TABLET PO (09:01)
[2022-09-04] MEDS: amLODIPine BESYLATE 5 MG TABLET PO (09:01)
[2022-09-04] MEDS: GABAPENTIN 100 MG CAPSULE PO ×3 (09:01→17:08)
[2022-09-04] MEDS: FAMOTIDINE 20 MG TABLET PO ×2 (09:01→21:02)
[2022-09-04] MEDS: polyethylene glycoL 3350 17 GM POWD.PACK PO (09:02)
[2022-09-04] MEDS: SODIUM CHLORIDE 0.9% IV 1,000 ML 100 ML IV CONT ×2 (09:08→21:02)
--- NOTE | 2022-09-04 10:02 | PHAR ---
The patient's home med of Dulaglutide 1.5mg has been verified.
[2022-09-04] MEDS: MORPHINE SULFATE (*CRX) 4 MG/ML INJ 3 MG IV PUSH ×2 (10:16→14:48)
--- NOTE | 2022-09-04 10:30 | PCOTNOTE ---
Attempted to see Patient at this time. Patient and his verbalized he was just layed back down and waiting to receive a PICC line. Will attempted at a later time.
[2022-09-04 10:49] LABS: Creatinine Urine 131.3 mg/dL
[2022-09-04 10:50] LABS: Sodium Urine Random 24 meq/L
[2022-09-04 10:58] VITALS: PULSE 80
[2022-09-04] MEDS: carvediloL 12.5 MG TABLET PO ×2 (10:58→21:07)
[2022-09-04 11:56] LABS: Glucose Point of Care 120 mg/dl (65-105)
[2022-09-04] MEDS: BISACODYL 10 MG SUPPOSITORY RECTAL (12:08)
[2022-09-04] MEDS: cefTRIAXone 2 GM in SODIUM CHLORIDE 0.9% IV 100 ML 200 ML IVPB (12:21)
--- NOTE | 2022-09-04 13:26 | PM.PNORT ---
Progress Note: A&P Assessment and Plan (1) Septic arthritis of hip: Qualifiers: Laterality: right Septic arthritis organism: due to other bacteria Qualified Code(s): M00.851 - Arthritis due to other bacteria, right hip Code(s): M00.9 - Pyogenic arthritis, unspecified Status: Acute Assessment and Plan: POD #5: Removal of arthroplasty implants, debridement and placement of antibiotic spacer. Pain rt hip stable. PT/OT. Knee immobilizer and toe-touch weight-bearing. Okay to remove knee immobilizer when in bed per Dr. Jacobo. MSSA in second culture w/ MONALISA <0.25 to oxacillin. Pharm ID advises high susceptibility of ceftriaxone. Continue ceftriaxone 2g q24 x[address] weeks [address] Jacobo. Plan for follow up in the outpatient orthopedic clinic to discuss reimplantation pending resolution of infection. PICC line in place. Dispo: SNF vs. [facility] Follow up with Dr. Jacobo in 4 weeks. Subjective Subjective Date/Time Seen: 09/04/22 13:26 Post Op day: 5 Principal diagnosis: Right septic hip arthritis Interval history: POD #5:RESECTION ARTHROPLASTY WITH ANTIBIOTIC SPACER PLACEMENT RIGHT HIP No new complaints today. Anxious about discharge plans. Review of Systems Review of Systems: All systems reviewed & are unremarkable except as noted in HPI and below Exam Const: General: comfortable; No acute distress Resp: Effort & Inspection: normal respiratory effort and no audible wheezes Extrem: Right lower extremity: lower leg ( Negative Homans sign), ankle Details: normal ROM ( dorsiflexion and plantar flexion intact) and foot Details: vascular exam Details: dorsalis pedis pulse present and normal capillary refill, tendon exam Details: active flexion normal and active extension normal and motor-sensory exam Details: light-touch normal Location: in all toes; no edema Left lower extremity: normal to inspection, ankle Details: normal ROM and foot Details: vascular exam Details: dorsalis pedis pulse present and normal capillary refill and motor-sensory exam light-touch normal in all toes; no edema Psych: Other: Right hip dressing in place. Objective Data Vital Signs Vital Signs: Vital Signs - 24 hr 09/03/22 17:12 09/03/22 17:34 09/03/22 19:59 Temperature 37.2 C 36.7 C Pulse Rate 78 87 Respiratory Rate 16 Blood Pressure 142/48 H Pulse Oximetry 97 Oxygen Delivery 09/03/22 21:15 09/03/22 23:05 09/04/22 05:10 Temperature 37.1 C 36.9 C Pulse Rate 87 82 77 Respiratory Rate 18 18 Blood Pressure 107/49 L 100/49 L Pulse Oximetry 99 96 98 Oxygen Delivery CPAP 09/04/22 09:00 09/04/22 10:58 Temperature Pulse Rate 80 Respiratory Rate Blood Pressure Pulse Oximetry Oxygen Delivery Room Air Intake/Output Intake/Output: Intake & Output 09/01/22 09/02/22 09/03/22 09/04/22 23:59 23:59 23:59 23:59 Intake Total 3220 2610 1989 930 Output Total 1545 700 Balance 1675 1910 1989 930 Meds/Results Medications: Active Medications Generic Name Dose Route Start Last Admin Trade Name Freq PRN Reason Stop Dose Admin Acetaminophen 650 mg 08/30/22 17:06 09/03/22 17:12 Acetaminophen 325 Mg Tablet PO 650 mg Q6H PRN Administration Mild Pain (1-3) or Fever Al Hydrox/Mg Hydrox/Simethicone 30 ml 08/30/22 17:06 Mag Hydrox/Al Hydrox/Simeth 30 Ml Udc PO Q6H PRN Indigestion Amlodipine Besylate 5 mg 08/30/22 09:00 09/04/22 09:01 Amlodipine Besylate 5 Mg Tablet PO 5 mg DAILY ANGEL Administration Bisacodyl 10 mg 09/03/22 11:16 09/04/22 12:08 Bisacodyl 10 Mg Suppository RECTAL 10 mg QAM PRN Administration Constipation Carvedilol 12.5 mg 09/04/22 09:00 09/04/22 10:58 Carvedilol 12.5 Mg Tablet PO 12.5 mg Q12HR ANGEL Administration Clonidine HCl 0.1 mg 08/29/22 21:10 09/04/22 09:01 Clonidine Hcl 0.1 Mg Tablet PO 0.1 mg BID ANGEL Administration Clopidogrel Bisulfate 75 mg 08/30/22 09:00
--- NOTE | 2022-09-04 14:18 | PC.NURSE ---
Patient had a bowel movement 1400 09/04/22. First BM since surgery.
[2022-09-04] MEDS: CENTRAL LINE FLUSH 10 ML IV PUSH ×2 (14:49→21:07)
[2022-09-04] MEDS: RIVAROXABAN 10 MG TABLET PO (17:09)
[2022-09-04 17:29] LABS: Glucose Point of Care 119 mg/dl (65-105)
[2022-09-04 21:00] VITALS: BP 109/51; PULSE 79; RESP 17; TEMP 36.8; O2SAT 98
[2022-09-04 21:07] VITALS: PULSE 64
[2022-09-04 21:11] LABS: Glucose Point of Care 77 mg/dl (65-105)
[2022-09-05] VITALS (7 sets, daily range): BP systolic 106–122; BP diastolic 52–56; PULSE 75–86; RESP 16–24; TEMP 36.8–37.6; O2SAT 98–99; BMI 34.4
[2022-09-05] MEDS: oxyCODONE/ACETAMINOPHEN (*CRX) 10-325 MG TABLET 1 TAB PO (01:10)
[2022-09-05] MEDS: diazePAM (*CRX) 5 MG TABLET PO ×3 (03:12→19:58)
[2022-09-05] MEDS: MORPHINE SULFATE (*CRX) 4 MG/ML INJ 3 MG IV PUSH ×2 (04:21→08:42)
[2022-09-05] MEDS: CYCLOBENZAPRINE HCL 10 MG TABLET PO ×3 (06:35→21:25)
[2022-09-05] MEDS: SODIUM CHLORIDE 0.9% IV 1,000 ML 100 ML IV CONT ×2 (06:35→18:01)
[2022-09-05] MEDS: CENTRAL LINE FLUSH 10 ML IV PUSH ×3 (06:36→21:26)
[2022-09-05] MEDS: ROSUVASTATIN 10 MG TABLET 20 MG PO (08:35)
[2022-09-05] MEDS: polyethylene glycoL 3350 17 GM POWD.PACK PO (08:35)
[2022-09-05] MEDS: MULTIVITAMINS THERAPEUTIC TAB (*BKC) 1 TABLET PO (08:36)
[2022-09-05] MEDS: FAMOTIDINE 20 MG TABLET PO ×2 (08:36→21:25)
[2022-09-05] MEDS: FERROUS SULFATE DRIED 142 MG TABCR PO (08:36)
[2022-09-05] MEDS: SENNA/DOCUSATE SODIUM TABLET 2 TAB PO ×2 (08:36→17:05)
[2022-09-05] MEDS: CLOPIDOGREL BISULFATE 75 MG TABLET PO (08:36)
[2022-09-05] MEDS: amLODIPine BESYLATE 5 MG TABLET PO (08:37)
[2022-09-05] MEDS: GABAPENTIN 100 MG CAPSULE PO ×3 (08:37→17:05)
[2022-09-05] MEDS: cloNIDine HCL 0.1 MG TABLET PO ×2 (08:40→17:05)
[2022-09-05] MEDS: carvediloL 12.5 MG TABLET PO ×2 (08:40→21:25)
[2022-09-05 09:22] LABS: Albumin Level 3.2 g/dL (3.5-5.1); Anion Gap 4 mmol/L (8-16); Blood Urea Nitrogen 32 mg/dL (9-20); Calcium 8.2 mg/dL (8.4-10.2); Carbon Dioxide 25 mmol/L (22-30); Chloride 104 mmol/L (98-107); Estimated CRCL calculation 60 ml/min; Estimated Glomerular Filt Rate 45; Glucose 110 mg/dL (65-110); Magnesium 2.3 mg/dL (1.6-2.3); Phosphorus 4.3 mg/dL (2.5-4.5); Potassium 4.3 mmol/L (3.4-5.0); Sodium 133 mmol/L (137-145)
--- NOTE | 2022-09-05 10:34 | PM.IMPN ---
Progress Note: A&P Assessment and Plan (1) Abscess of right hip: Code(s): L02.415 - Cutaneous abscess of right lower limb Status: Acute Assessment and Plan: The patient has a history of right total hip arthroplasty on 06/21/[address] Jacobo. Management per Ortho. 08/30/22 s/p resection arthroplasty with antibiotic spacer placement right hip Treated with pre/post-op IV Gentamicin and Vancomycin Started Rocephin 2 grams IV Q24 hours, first dose 09/01/22. Antibiotic day 5 Increased BUN/Creatinine and GBS growth on hip cultures. WBC within normal limits and afebrile. DC'd Vancomycin (09/01-09/03). Trend WBC blood cultures negative to date. lactic levels 0.9 and stable. hip cultures - showing MSSA. Group B strep sensitivities was requested, but pending. Continues to have severe pain. Stop Percocet. Change to scheduled oxy IR 10 mg Q4 hours with parameters to hold for sedation. Trial scheduled for 1-2 days until pain is more controlled and then change to PRN if more controlled. Consider SR oxy if high doses of oxy IR still needed. continued on scheduled flexeril, gabapentin. Monitor patient for oversedation on medications. discussed trying to reduce morphine IV use. (2) Sleep apnea: Code(s): G47.30 - Sleep apnea, unspecified Status: Chronic Assessment and Plan: Chronic, stable, continue with a CPAP and titrate to home settings. (3) Heart murmur: Code(s): R01.1 - Cardiac murmur, unspecified Status: Chronic Assessment and Plan: Chronic, previous echocardiogram showed moderate aortic stenosis in 2020. Patient did complain of chest pain at started in the ED. troponins negative x3. Stone EKG shows sinus rhythm with T-wave inversion in inferior leads. Repeat EKG in our ED shows sinus rhythm with nonspecific ST T wave changes in inferior leads. Transthoracic echocardiogram shows moderate aortic stenosis similar to previous imaging. Continue medications and avoid hypotension. (4) Type 2 diabetes mellitus: Qualifiers: Diabetes mellitus complication status: without complication Diabetes mellitus fdc insulin use: without fdc use Qualified Code(s): E11.9 - Type 2 diabetes mellitus without complications Code(s): E11.9 - Type 2 diabetes mellitus without complications Status: Chronic Assessment and Plan: Chronic, point of care glucose 106 preop 09/04 increased renal function- holding metformin Trulicity is not on formulary but will consider resuming if patient is able to bring from home. He takes his Trulicity on Mondays. Patient will bring in his medication from home if he is still here on Sunday of next week. Accu-Cheks AC and HS with sliding scale insulin and hypoglycemic protocol. A1c 5.5% Questionable neuropathy RLE since spinal surgery. Trial gabapentin 100 mg TID. B12 and folate within normal limits. (5) Hypertension: Qualifiers: Hypertension type: primary hypertension Qualified Code(s): I10 - Essential (primary) hypertension Code(s): I10 - Essential (primary) hypertension Status: Chronic Assessment and Plan: Chronic, soft BP with elevated renal function suggesting pre-renal ALEJANDRA. Hold losartan and HCTZ, starting 09/03 Decrease coreg dose 12.5 mg BID, starting 09/04. Continue amlodipine and clonidine (6) Hyperlipidemia: Qualifiers: Hyperlipidemia type: mixed hyperlipidemia Qualified Code(s): E78.2 - Mixed hyperlipidemia Code(s): E78.5 - Hyperlipidemia, unspecified Status: Chronic Assessment and Plan: Chronic, stable continue Crestor (7) CVA, old, ataxia: Code(s): I69.993 - Ataxia following unspecified cerebrovascular disease Status: Acute Assessment and Plan: History of stroke with residual ataxia Fall precautions, Continue antihypertensives and avoid hyper or hypotension Resumed plavix and continue statins. (8) An
[2022-09-05] MEDS: LIDOCAINE 5% PATCH 1 PATCH TRANSDERM (11:13)
[2022-09-05 12:31] LABS: Glucose Point of Care 114 mg/dl (65-105)
[2022-09-05] MEDS: oxyCODONE HCL (*CRX) 5 MG TAB IR 10 MG PO ×3 (13:11→21:25)
[2022-09-05] MEDS: cefTRIAXone 2 GM in SODIUM CHLORIDE 0.9% IV 100 ML 200 ML IVPB (13:12)
--- NOTE | 2022-09-05 15:44 | PM.PNORT ---
Progress Note: A&P Assessment and Plan (1) Septic arthritis of hip: Qualifiers: Septic arthritis organism: due to other bacteria Laterality: right Qualified Code(s): M00.851 - Arthritis due to other bacteria, right hip Code(s): M00.9 - Pyogenic arthritis, unspecified Status: Acute Assessment and Plan: POD 6 IMPROVING. WE NEED TO CHECK ANOTHER CRP AND FINALIZE WHERE HE WILL GO TO REHAB VS HOME WITH HOME HEALTH. Subjective Subjective Date/Time Seen: 09/05/22 15:44 POD 6 IMPROVING PAIN AND MORE MOBILE. HE IS TOE TOUCH WEIGHT BEARING RIGHT LEG. NO CALF PAIN Exam Extrem: Other: VSS AFEBRILE DRESSING DRY NV INTACT, PITTING EDEMA FROM THIGH TO FOOT, CALF SOFT NON TENDER NEG HOMANS SIGN, THIGH SOFT NON TENDER Objective Data Vital Signs Vital Signs: Vital Signs - 24 hr 09/04/22 21:07 09/04/22 21:00 09/05/22 05:14 Temperature 36.8 C 36.8 C Pulse Rate 64 79 76 Respiratory Rate 17 18 Blood Pressure 109/51 L 106/55 L Pulse Oximetry 98 98 Oxygen Delivery 09/05/22 08:40 09/05/22 08:30 09/05/22 10:08 Temperature 37.4 C Pulse Rate 75 79 Respiratory Rate 24 H Blood Pressure 111/52 L Pulse Oximetry 99 Oxygen Delivery Room Air 09/05/22 13:40 Temperature 37.6 C H Pulse Rate 86 Respiratory Rate 20 Blood Pressure 122/52 L Pulse Oximetry 98 Oxygen Delivery Intake/Output Intake/Output: Intake & Output 09/02/22 09/03/22 09/04/22 09/05/22 23:59 23:59 23:59 23:59 Intake Total 2610 19890 1490 Output Total 700 500 Balance 1909 1989 2270 990 Meds/Results Medications: Active Medications Generic Name Dose Route Start Last Admin Trade Name Freq PRN Reason Stop Dose Admin Acetaminophen 650 mg 08/30/22 17:06 09/03/22 17:12 Acetaminophen 325 Mg Tablet PO 650 mg Q6H PRN Administration Mild Pain (1-3) or Fever Al Hydrox/Mg Hydrox/Simethicone 30 ml 08/30/22 17:06 Mag Hydrox/Al Hydrox/Simeth 30 Ml Udc PO Q6H PRN Indigestion Amlodipine Besylate 5 mg 08/30/22 09:00 09/05/22 08:37 Amlodipine Besylate 5 Mg Tablet PO 5 mg DAILY ANGEL Administration Bisacodyl 10 mg 09/03/22 11:16 09/04/22 12:08 Bisacodyl 10 Mg Suppository RECTAL 10 mg QAM PRN Administration Constipation Carvedilol 12.5 mg 09/04/22 09:00 09/05/22 08:40 Carvedilol 12.5 Mg Tablet PO 12.5 mg Q12HR ANGEL Administration Clonidine HCl 0.1 mg 08/29/22 21:10 09/05/22 08:40 Clonidine Hcl 0.1 Mg Tablet PO 0.1 mg BID ANGEL Administration Clopidogrel Bisulfate 75 mg 08/30/22 09:00 09/05/22 08:36 Clopidogrel Bisulfate 75 Mg Tablet PO 75 mg DAILY ANGEL Administration Cyclobenzaprine HCl 10 mg 09/01/22 14:00 09/05/22 13:12 Cyclobenzaprine Hcl 10 Mg Tablet PO 10 mg Q8H ANGEL Administration Dextrose 12.5 gm 08/29/22 21:12 Dextrose 50% 25 Gm/50 Ml Syringe IV PUSH PRN PRN Hypoglycemia Protocol Diazepam 5 mg 08/30/22 17:06 09/05/22 10:45 Diazepam (*Crx) 5 Mg Tablet PO 5 mg Q6H PRN Administration Anxiety/Muscle Spasm Famotidine 20 mg 08/30/22 21:00 09/05/22 08:36 Famotidine 20 Mg Tablet PO 20 mg Q12HR ANGEL Administration Ferrous Sulfate 142 mg 09/01/22 09:50 09/05/22 08:36 Ferrous Sulfate Dried 142 Mg Tabcr PO 142 mg DAILY@0800 ANGEL Administration Gabapentin 100 mg 09/01/22 17:00 09/05/22 13:11 Gabapentin 100 Mg Capsule PO 100 mg TID ANGEL Administration Glucagon 1 mg 08/29/22 21:12 Glucagon For Inj 1 Mg Vial IM PRN PRN Hypoglycemia Protocol Glucose 15 gm 08/29/22 21:12 Glucose Oral Gel 15 Gm Of Glucse In 37.5 Gm Tube PO PRN PRN Hypoglycemia Protocol Home Med 0 each 09/04/22 10:05 09/04/22 10:15 Home Medication (Dulaglutide [Trulicity] 1.5 Mg/0.5 Ml Pen SUB-Q 09/29/22 09:59 1.5 each Mo@0900 ANGEL Administration Hydrochlorothiazide 12.5 mg 08/31/22 09:00 09/02/22 08:52 Hydrochlorothiazid
[2022-09-05 16:13] LABS: CRP 12.6 mg/dL (<1.0)
[2022-09-05] MEDS: RIVAROXABAN 10 MG TABLET PO (17:05)
[2022-09-05 17:32] LABS: Glucose Point of Care 100 mg/dl (65-105)
[2022-09-05 21:25] LABS: Glucose Point of Care 100 mg/dl (65-105)
[2022-09-05 21:36] LABS: Glucose Point of Care 118 mg/dl (65-105)
[2022-09-06] VITALS (7 sets, daily range): BP systolic 112–149; BP diastolic 54–68; PULSE 64–89; RESP 14–16; TEMP 36.4–37; O2SAT 97–99
[2022-09-06] MEDS: oxyCODONE HCL (*CRX) 5 MG TAB IR 10 MG PO ×5 (00:59→16:51)
[2022-09-06] MEDS: CYCLOBENZAPRINE HCL 10 MG TABLET PO ×2 (05:35→13:30)
[2022-09-06] MEDS: CENTRAL LINE FLUSH 10 ML IV PUSH ×2 (05:35→13:31)
[2022-09-06 06:00] LABS: Hematocrit 24.2 % (42.0-52.0); Hemoglobin 7.7 g/dL (14.0-18.0); Mean Corpuscular HGB Conc 31.8 g/dl (32-36); Mean Corpuscular Hemoglobin 30.6 pg (26-34); Mean Platelet Volume 9.3 fl (7.4-10.4); Platelet Count Result 407 k/mm3 (150-375); Red Blood Count 2.52 M/mm3 (4.6-6.20); Red Cell Distribution Width 13.7 % (11.5-14.5); White Blood Count 7.2 K/mm3 (4.5-10.0)
[2022-09-06 06:21] LABS: Albumin Level 2.9 g/dL (3.5-5.1); Anion Gap 3 mmol/L (8-16); Blood Urea Nitrogen 25 mg/dL (9-20); CRP 8.1 mg/dL (<1.0); Calcium 8.6 mg/dL (8.4-10.2); Carbon Dioxide 25 mmol/L (22-30); Chloride 109 mmol/L (98-107); Estimated CRCL calculation 68 ml/min; Estimated Glomerular Filt Rate 52; Glucose 115 mg/dL (65-110); Magnesium 2.2 mg/dL (1.6-2.3); Phosphorus 4.2 mg/dL (2.5-4.5); Potassium 4.2 mmol/L (3.4-5.0); Sodium 137 mmol/L (137-145)
[2022-09-06 06:39] LABS: Procalcitonin 0.2 ng/mL
[2022-09-06] MEDS: diazePAM (*CRX) 5 MG TABLET PO (07:00)
--- NOTE | 2022-09-06 08:14 | PCOTNOTE ---
Discharge pt. from OT services. Pt. knowledgeable of modifications and use of adaptive equipment to maintain independence, often opting for assist from spouse with agreement.
[2022-09-06 08:51] LABS: Glucose Point of Care 100 mg/dl (65-105)
[2022-09-06] MEDS: ROSUVASTATIN 10 MG TABLET 20 MG PO (11:02)
[2022-09-06] MEDS: MULTIVITAMINS THERAPEUTIC TAB (*BKC) 1 TABLET PO (11:03)
[2022-09-06] MEDS: carvediloL 12.5 MG TABLET PO (11:03)
[2022-09-06] MEDS: SENNA/DOCUSATE SODIUM TABLET 2 TAB PO ×2 (11:03→16:24)
[2022-09-06] MEDS: amLODIPine BESYLATE 5 MG TABLET PO (11:04)
[2022-09-06] MEDS: GABAPENTIN 100 MG CAPSULE PO ×3 (11:04→16:24)
[2022-09-06] MEDS: FAMOTIDINE 20 MG TABLET PO (11:05)
[2022-09-06] MEDS: polyethylene glycoL 3350 17 GM POWD.PACK PO (11:05)
[2022-09-06] MEDS: LIDOCAINE 5% PATCH 1 PATCH TRANSDERM (11:05)
[2022-09-06] MEDS: cloNIDine HCL 0.1 MG TABLET PO ×2 (11:05→16:51)
[2022-09-06] MEDS: CLOPIDOGREL BISULFATE 75 MG TABLET PO (11:05)
[2022-09-06] MEDS: MICONAZOLE NITRATE 2% CREAM 30 GM TUBE 1 APPLIC TOPICAL ×2 (11:36→16:24)
[2022-09-06 12:08] LABS: Glucose Point of Care 99 mg/dl (65-105)
--- NOTE | 2022-09-06 13:08 | PM.DS ---
DS: Admitting Diagnosis Discharge Date 09/06/22 Admitting Diagnosis septic arthritis, right DS: Discharge Diagnosis Discharge Diagnosis (1) Abscess of right hip: Code(s): L02.415 - Cutaneous abscess of right lower limb Status: Acute Assessment and Plan: The patient has a history of right total hip arthroplasty on 06/21/[address] Jacobo. Management per Ortho. 08/30/22 s/p resection arthroplasty with antibiotic spacer placement right hip Treated with pre/post-op IV Gentamicin and Vancomycin Started Rocephin 2 grams IV Q24 hours, first dose 09/01/22. Antibiotic day 5 Increased BUN/Creatinine and GBS growth on hip cultures. WBC within normal limits and afebrile. DC'd Vancomycin (09/01-09/03). Trend WBC blood cultures negative to date. lactic levels 0.9 and stable. hip cultures - showing MSSA. Group B strep sensitivities was requested, but pending. Continues to have severe pain. Stop Percocet. Change to scheduled oxy IR 10 mg Q4 hours with parameters to hold for sedation. Trial scheduled for 1-2 days until pain is more controlled and then change to PRN if more controlled. Consider SR oxy if high doses of oxy IR still needed. continued on scheduled flexeril, gabapentin. Monitor patient for oversedation on medications. discussed trying to reduce morphine IV use. (2) Sleep apnea: Code(s): G47.30 - Sleep apnea, unspecified Status: Chronic Assessment and Plan: Chronic, stable, continue with a CPAP and titrate to home settings. (3) Heart murmur: Code(s): R01.1 - Cardiac murmur, unspecified Status: Chronic Assessment and Plan: Chronic, previous echocardiogram showed moderate aortic stenosis in 2020. Patient did complain of chest pain at started in the ED. troponins negative x3. Stone EKG shows sinus rhythm with T-wave inversion in inferior leads. Repeat EKG in our ED shows sinus rhythm with nonspecific ST T wave changes in inferior leads. Transthoracic echocardiogram shows moderate aortic stenosis similar to previous imaging. Continue medications and avoid hypotension. (4) Type 2 diabetes mellitus: Qualifiers: Diabetes mellitus complication status: without complication Diabetes mellitus alf insulin use: without alf use Qualified Code(s): E11.9 - Type 2 diabetes mellitus without complications Code(s): E11.9 - Type 2 diabetes mellitus without complications Status: Chronic Assessment and Plan: Chronic, point of care glucose 106 preop 09/04 increased renal function- holding metformin Trulicity is not on formulary but will consider resuming if patient is able to bring from home. He takes his Trulicity on Mondays. Patient will bring in his medication from home if he is still here on Sunday of next week. Accu-Cheks AC and HS with sliding scale insulin and hypoglycemic protocol. A1c 5.5% Questionable neuropathy RLE since spinal surgery. Trial gabapentin 100 mg TID. B12 and folate within normal limits. (5) Hypertension: Qualifiers: Hypertension type: primary hypertension Qualified Code(s): I10 - Essential (primary) hypertension Code(s): I10 - Essential (primary) hypertension Status: Chronic Assessment and Plan: Chronic, soft BP with elevated renal function suggesting pre-renal ALEJANDRA. Hold losartan and HCTZ, starting 09/03 Decrease coreg dose 12.5 mg BID, starting 09/04. Continue amlodipine and clonidine (6) Hyperlipidemia: Qualifiers: Hyperlipidemia type: mixed hyperlipidemia Qualified Code(s): E78.2 - Mixed hyperlipidemia Code(s): E78.5 - Hyperlipidemia, unspecified Status: Chronic Assessment and Plan: Chronic, stable continue Crestor (7) CVA, old, ataxia: Code(s): I69.993 - Ataxia following unspecified cerebrovascular disease Status: Acute Assessment and Plan: History of stroke with residual ataxia Fall precautions, Cont
[2022-09-06] MEDS: cefTRIAXone 2 GM in SODIUM CHLORIDE 0.9% IV 100 ML 200 ML IVPB (13:31)
--- NOTE | 2022-09-06 15:42 | PC.NURSE ---
On 09/06/22, the student, [Phuong Wong], provided care and completed [facility] documentation on this patient. I have reviewed the student's documentation and agree with the findings.
--- NOTE | 2022-09-06 15:44 | PM.PNORT ---
Progress Note: A&P Assessment and Plan (1) Septic arthritis of hip: Qualifiers: Septic arthritis organism: due to other bacteria Laterality: right Qualified Code(s): M00.851 - Arthritis due to other bacteria, right hip Code(s): M00.9 - Pyogenic arthritis, unspecified Status: Acute Assessment and Plan: POD 7 DOING WELL. OK TO DC HOME. HE WILL F/U IN 10 DAYS. XARELTO FOR DVT PROPHYLAXIS. HE WILL HAVE [facility] FOR 8 WEEKS CEFTRIAXONE. HE WILL NEEF HOME PT AND NURSING. HE WILL NEED CRP DRAWN AND WE WILL SCHEDULE THAT ACCORDINGLY. Subjective Subjective Date/Time Seen: 09/06/22 15:44 POD 7 DOING WELL. PAIN IMPROVED. NO CALF PAIN. Exam Extrem: Other: VSS AFEBRILE DRESSING DRY NV INTACT NEG HOMANS SIGN CALF SOFT NON TENDER THIGH SOFT NON TENDER Objective Data Vital Signs Vital Signs: Vital Signs - 24 hr 09/05/22 21:25 09/05/22 21:30 09/05/22 20:00 Temperature 37.2 C Pulse Rate 80 81 Respiratory Rate 16 Blood Pressure 114/56 L Pulse Oximetry 98 Oxygen Delivery Room Air 09/06/22 00:26 09/06/22 05:53 09/05/22 22:55 Temperature 36.6 C 37.0 C Pulse Rate 78 78 86 Respiratory Rate 14 14 Blood Pressure 121/59 L 122/54 L Pulse Oximetry 98 97 98 Oxygen Delivery CPAP 09/06/22 08:17 09/06/22 09:41 09/06/22 11:03 Temperature 36.8 C Pulse Rate 79 80 Respiratory Rate Blood Pressure 112/55 L Pulse Oximetry 99 Oxygen Delivery Room Air 09/06/22 11:04 09/06/22 11:00 09/06/22 14:53 Temperature 36.7 C 36.4 C Pulse Rate 64 80 89 Respiratory Rate 16 16 Blood Pressure 149/68 H 138/67 118/60 Pulse Oximetry 98 98 Oxygen Delivery Intake/Output Intake/Output: Intake & Output 09/03/22 09/04/22 09/05/22 09/06/22 23:59 23:59 23:59 23:59 Intake Total 1989 3540 3430 1120 Output Total 500 2175 Balance 1989 7304 7047 -4523 Meds/Results Medications: Active Medications Generic Name Dose Route Start Last Admin Trade Name Freq PRN Reason Stop Dose Admin Acetaminophen 650 mg 08/30/22 17:06 09/03/22 17:12 Acetaminophen 325 Mg Tablet PO 650 mg Q6H PRN Administration Mild Pain (1-3) or Fever Al Hydrox/Mg Hydrox/Simethicone 30 ml 08/30/22 17:06 Mag Hydrox/Al Hydrox/Simeth 30 Ml Udc PO Q6H PRN Indigestion Amlodipine Besylate 5 mg 08/30/22 09:00 09/06/22 11:04 Amlodipine Besylate 5 Mg Tablet PO 5 mg DAILY ANGEL Administration Bisacodyl 10 mg 09/03/22 11:16 09/04/22 12:08 Bisacodyl 10 Mg Suppository RECTAL 10 mg QAM PRN Administration Constipation Carvedilol 12.5 mg 09/04/22 09:00 09/06/22 11:03 Carvedilol 12.5 Mg Tablet PO 12.5 mg Q12HR ANGEL Administration Clonidine HCl 0.1 mg 08/29/22 21:10 09/06/22 11:05 Clonidine Hcl 0.1 Mg Tablet PO 0.1 mg BID ANGEL Administration Clopidogrel Bisulfate 75 mg 08/30/22 09:00 09/06/22 11:05 Clopidogrel Bisulfate 75 Mg Tablet PO 75 mg DAILY ANGEL Administration Cyclobenzaprine HCl 10 mg 09/01/22 14:00 09/06/22 13:30 Cyclobenzaprine Hcl 10 Mg Tablet PO 10 mg Q8H ANGEL Administration Dextrose 12.5 gm 08/29/22 21:12 Dextrose 50% 25 Gm/50 Ml Syringe IV PUSH PRN PRN Hypoglycemia Protocol Diazepam 5 mg 08/30/22 17:06 09/06/22 07:00 Diazepam (*Crx) 5 Mg Tablet PO 5 mg Q6H PRN Administration Anxiety/Muscle Spasm Famotidine 20 mg 08/30/22 21:00 09/06/22 11:05 Famotidine 20 Mg Tablet PO 20 mg Q12HR ANGEL Administration Ferrous Sulfate 142 mg 09/01/22 09:50 09/06/22 11:27 Ferrous Sulfate Dried 142 Mg Tabcr PO Not Given DAILY@0800 ANGEL Gabapentin 100 mg 09/01/22 17:00 09/06/22 13:30 Gabapentin 100 Mg Capsule PO 100 mg TID ANGEL Administration Glucagon 1 mg 08/29/22 21:12 Glucagon For Inj 1 Mg Vial IM PRN PRN Hypoglycemia Protocol Glucose 15 gm 08/29/22 21:12 Glucose Oral Gel 15 Gm Of Glucse In 37.5 Gm Tube PO PRN P
== END 2022-09-06 17:15 | disposition home health service (06) | DRG 857 ==
LOC: ANHED 16:42 → ANH2MED 17:23
PROVIDERS: Nurse Practitioner; Nurse Practitioner Family; Orthopaedic Surgery; Admitting Provider Internal Medicine; Emergency Provider Emergency Medicine; PCP Family Medicine; Visit Provider Internal Medicine Critical Care Medicine
PROC: 0SP90JZ Removal of Synthetic Substitute from Right Hip Joint, Open Approach (ICD-10-PCS; principal; 2022-08-30 11:15)
DX: T81.41XA Infection following a procedure, superficial incisional surgical site, initial encounter (principal); L02.415 Cutaneous abscess of right lower limb; M00.251 Other streptococcal arthritis, right hip; D62 Acute posthemorrhagic anemia; N17.9 Acute kidney failure, unspecified; Z96.641 Presence of right artificial hip joint; K59.00 Constipation, unspecified; R07.89 Other chest pain; I69.393 Ataxia following cerebral infarction; B95.61 Methicillin susceptible Staphylococcus aureus infection as the cause of diseases classified elsewhere; E78.2 Mixed hyperlipidemia; I10 Essential (primary) hypertension; G47.30 Sleep apnea, unspecified; R01.1 Cardiac murmur, unspecified; I35.0 Nonrheumatic aortic (valve) stenosis; G25.81 Restless legs syndrome; L40.9 Psoriasis, unspecified; F41.1 Generalized anxiety disorder; Z96.612 Presence of left artificial shoulder joint; E66.9 Obesity, unspecified; Z68.34 Body mass index [BMI] 34.0-34.9, adult; Z90.49 Acquired absence of other specified parts of digestive tract
CPT/HCPCS: 36415; 36430; 36569; 71275; 72170; 73701; 80053; 80069; 80202; 82565; 82570; 82607; 82746; 82948; 83036; 83605; 83735; 84145; 84300; 84443; 84484; 85025; 85027; 85610; 85652; 85730; 86140; 86850; 86900; 86901; 86923; 87040; 87070; 87075; 87077; 87086; 87186; 87205; 93005; 97110; 97162; 97166; 97530; 97535; 99285; A9270; C1713; C1751; C8929; J0131; J0171; J0330; J0696; J1100; J1170; J1580; J2250; J2270; J2405; J2704; J2795; J3010; J3370; J3475; J7030; J7040; J7120; P9016; Q9957; Q9967

== ENCOUNTER 2022-09-12 13:57 | Outpatient (NON) | payer OTHER, SELFPAY ==
[2022-09-12 14:07] LABS: Basophils Absolute Auto 0.03 K/mm3 (0.00-0.10); Basophils Percent Auto 0.4 % (0.0-1.0); Eosinophils Absolute Auto 0.07 K/mm3 (0.02-0.50); Eosinophils Percent Auto 0.9 % (1.0-6.0); Hemoglobin 7.8 g/dL (14.0-18.0); Immature Granulocyte Absolute 0.02 K/mm3 (0.00-0.00); Immature Granulocyte Percent A 0.3 % (0.0-0.0); Lymphocytes Absolute Auto 1.68 K/mm3 (1.10-4.50); Lymphocytes Percent Auto 22.3 % (18.0-42.0); Mean Corpuscular HGB Conc 32.5 g/dL (32.0-36.0); Mean Corpuscular Hemoglobin 30.4 pg (27.0-31.0); Mean Corpuscular Volume 93.4 fL (78.0-102.0); Mean Platelet Volume 9.1 fl (8.7-11.0); Monocytes Absolute Auto 0.67 K/mm3 (0.10-0.90); Monocytes Percent Auto 8.9 % (2.0-11.0); Neutrophils Absolute Auto 5.1 K/mm3 (1.7-7.2); Neutrophils Percent Auto 67.2 % (50.0-70.0); Platelet Count Result 423 K/mm3 (150-420); Red Blood Count 2.57 M/mm3 (4.70-6.10); Red Cell Distribution Width 13.2 % (11.6-14.4); White Blood Count 7.5 K/mm3 (4.8-10.8)
[2022-09-12 14:31] LABS: Alanine Aminotransferase 24 U/L (16-63); Albumin Level 2.5 g/dL (3.4-5.0); Alkaline Phosphatase 116 U/L (46-116); Anion Gap 5 mmol/L (8-16); Aspartate Amino Transferase 29 U/L (15-37); Bilirubin,Total 0.3 mg/dL (0.00-1.00); Blood Urea Nitrogen 19 mg/dL (7-18); Calcium 8.9 mg/dL (8.5-10.1); Carbon Dioxide 29 mmol/L (21-32); Chloride 104 mmol/L (98-108); Estimated Glomerular Filt Rate > 60; Glucose 105 mg/dL (70-99); Osmolality Calculated 288 mOsm/kg (285-295); Potassium 4.9 mmol/L (3.5-5.1); Sodium 138 mmol/L (136-145)
== END 2022-09-12 13:58 | disposition home or self-care (01) ==
LOC: CHSHH 13:59
PROVIDERS: Visit Provider Orthopaedic Surgery
DX: M71.051 Abscess of bursa, right hip (principal)
CPT/HCPCS: 80053; 85025

== ENCOUNTER 2022-09-18 11:47 | Outpatient (CLI) | payer OTHER, SELFPAY ==
--- NOTE | ~2022-09-18 | US_ITS ---
EXAMINATION: US soft tissue LE RT DATE: 09/18/2022 12:39 INDICATION: Pyogenic arthritis, unspecified. TECHNIQUE: Multiple grayscale and Doppler ultrasound images of the right lower extremity were olivia gamez. COMPARISON: CT 08/29/2022, radiographs 09/15/2022 FINDINGS: Lateral to the right hip,, there is a 2.8 x 1.4 cm hypoechoic mass in the subcutaneous fat extending from the skin to the musculature. Soft tissue deep to the muscle fascia is not well evaluat ed. IMPRESSION: 1. 2.8 x 1.4 cm hypoechoic mass extending from the skin to the muscle lateral to right hip, consisten t with the recent incision. Soft tissue deep to the fascia of the muscle is not well evaluated. Consi noa CT with contrast. Reviewed, dictated and finalized at location A. D AGRONOMIST IMPRESSION: 1. 2.8 x 1.4 cm hypoechoic mass extending from the skin to the muscle lateral t o right hip, consistent with the recent incision. Soft tissue deep to the fasci a of the muscle is not well evaluated. Consider CT with contrast.
[2022-09-18 12:11] LABS: Hematocrit 26.7 % (40.0-54.0); Hemoglobin 8.7 g/dL (14.0-18.0); Mean Corpuscular HGB Conc 32.6 g/dL (32.0-36.0); Mean Platelet Volume 9.5 fl (8.7-11.0); Platelet Count Result 261 K/mm3 (150-420); Red Blood Count 2.81 M/mm3 (4.70-6.10); White Blood Count 7.1 K/mm3 (4.8-10.8)
[2022-09-18 13:21] LABS: Alanine Aminotransferase 29 U/L (16-63); Alkaline Phosphatase 123 U/L (46-116); Anion Gap 9 mmol/L (8-16); Aspartate Amino Transferase 24 U/L (15-37); Bilirubin,Total 0.4 mg/dL (0.00-1.00); Blood Urea Nitrogen 24 mg/dL (7-18); Calcium 9.7 mg/dL (8.5-10.1); Carbon Dioxide 28 mmol/L (21-32); Chloride 100 mmol/L (98-108); Estimated Glomerular Filt Rate > 60; Ferritin 83 ng/mL (26-388); Glucose 126 mg/dL (70-99); Iron 47 ug/dL (65-175); Osmolality Calculated 290 mOsm/kg (285-295); Percent Iron Saturation 16 % (12-57); Potassium 4.1 mmol/L (3.5-5.1); Sodium 137 mmol/L (136-145); Total Protein 7.1 g/dL (6.4-8.2)
[2022-09-18 13:48] LABS: CRP 1.7 mg/dL (0.0-0.9); Folic Acid 19.7 ng/mL (8.6->20); Vitamin B12 359 pg/mL (193-986)
== END 2022-09-18 11:48 | disposition home or self-care (01) ==
LOC: CHSLAB 11:48
PROVIDERS: PCP Family Medicine; Visit Provider Orthopaedic Surgery
DX: D50.9 Iron deficiency anemia, unspecified (principal); M00.851 Arthritis due to other bacteria, right hip; E53.8 Deficiency of other specified B group vitamins; D62 Acute posthemorrhagic anemia; N17.9 Acute kidney failure, unspecified; M00.9 Pyogenic arthritis, unspecified
CPT/HCPCS: 36415; 76882; 80053; 82607; 82728; 82746; 83540; 83550; 85027; 86140

== ENCOUNTER 2022-09-26 12:41 | Outpatient (NON) | payer OTHER, SELFPAY ==
[2022-09-26 13:00] LABS: Basophils Absolute Auto 0.05 K/mm3 (0.00-0.10); Basophils Percent Auto 0.8 % (0.0-1.0); Eosinophils Absolute Auto 0.21 K/mm3 (0.02-0.50); Eosinophils Percent Auto 3.2 % (1.0-6.0); Hematocrit 28.1 % (40.0-54.0); Immature Granulocyte Absolute 0.05 K/mm3 (0.00-0.00); Immature Granulocyte Percent A 0.8 % (0.0-0.0); Lymphocytes Absolute Auto 1.79 K/mm3 (1.10-4.50); Lymphocytes Percent Auto 27.1 % (18.0-42.0); Mean Corpuscular Hemoglobin 30.4 pg (27.0-31.0); Mean Corpuscular Volume 94.9 fL (78.0-102.0); Mean Platelet Volume 10.1 fl (8.7-11.0); Monocytes Absolute Auto 0.59 K/mm3 (0.10-0.90); Monocytes Percent Auto 8.9 % (2.0-11.0); Neutrophils Absolute Auto 3.9 K/mm3 (1.7-7.2); Neutrophils Percent Auto 59.2 % (50.0-70.0); Platelet Count Result 180 K/mm3 (150-420); Red Blood Count 2.96 M/mm3 (4.70-6.10); Red Cell Distribution Width 14.8 % (11.6-14.4); White Blood Count 6.6 K/mm3 (4.8-10.8)
[2022-09-26 13:15] LABS: Alanine Aminotransferase 21 U/L (16-63); Alkaline Phosphatase 102 U/L (46-116); Anion Gap 6 mmol/L (8-16); Aspartate Amino Transferase 44 U/L (15-37); Bilirubin,Total 0.4 mg/dL (0.00-1.00); Blood Urea Nitrogen 20 mg/dL (7-18); Calcium 8.7 mg/dL (8.5-10.1); Carbon Dioxide 27 mmol/L (21-32); Chloride 106 mmol/L (98-108); Estimated Glomerular Filt Rate > 60; Glucose 111 mg/dL (70-99); Osmolality Calculated 291 mOsm/kg (285-295); Potassium 5.8 mmol/L (3.5-5.1); Sodium 139 mmol/L (136-145); Total Protein 7.1 g/dL (6.4-8.2)
== END 2022-09-26 12:42 | disposition home or self-care (01) ==
LOC: CHSHH 12:45
PROVIDERS: Visit Provider Orthopaedic Surgery
DX: M71.051 Abscess of bursa, right hip (principal)
CPT/HCPCS: 36415; 80053; 85025

== ENCOUNTER 2022-10-03 10:36 | Outpatient (NON) | payer OTHER, SELFPAY ==
[2022-10-03 12:14] LABS: Basophils Absolute Auto 0.03 K/mm3 (0.00-0.10); Basophils Percent Auto 0.4 % (0.0-1.0); Eosinophils Absolute Auto 0.16 K/mm3 (0.02-0.50); Eosinophils Percent Auto 2.3 % (1.0-6.0); Hemoglobin 9.5 g/dL (14.0-18.0); Immature Granulocyte Absolute 0.06 K/mm3 (0.00-0.00); Immature Granulocyte Percent A 0.9 % (0.0-0.0); Lymphocytes Absolute Auto 1.59 K/mm3 (1.10-4.50); Lymphocytes Percent Auto 23.3 % (18.0-42.0); Mean Corpuscular HGB Conc 32.8 g/dL (32.0-36.0); Mean Corpuscular Hemoglobin 31.7 pg (27.0-31.0); Mean Corpuscular Volume 96.7 fL (78.0-102.0); Mean Platelet Volume 10.3 fl (8.7-11.0); Monocytes Absolute Auto 0.58 K/mm3 (0.10-0.90); Monocytes Percent Auto 8.5 % (2.0-11.0); Neutrophils Absolute Auto 4.4 K/mm3 (1.7-7.2); Neutrophils Percent Auto 64.6 % (50.0-70.0); Platelet Count Result 144 K/mm3 (150-420); Red Cell Distribution Width 15.8 % (11.6-14.4); White Blood Count 6.8 K/mm3 (4.8-10.8)
[2022-10-03 12:27] LABS: Alanine Aminotransferase 47 U/L (16-63); Albumin Level 3.2 g/dL (3.4-5.0); Alkaline Phosphatase 102 U/L (46-116); Anion Gap 8 mmol/L (8-16); Aspartate Amino Transferase 38 U/L (15-37); Bilirubin,Total 0.6 mg/dL (0.00-1.00); Blood Urea Nitrogen 19 mg/dL (7-18); CRP < 0.5 mg/dL (0.0-0.9); Calcium 8.8 mg/dL (8.5-10.1); Carbon Dioxide 25 mmol/L (21-32); Chloride 104 mmol/L (98-108); Estimated Glomerular Filt Rate > 60; Glucose 148 mg/dL (70-99); Osmolality Calculated 289 mOsm/kg (285-295); Potassium 5.4 mmol/L (3.5-5.1); Sodium 137 mmol/L (136-145); Total Protein 6.9 g/dL (6.4-8.2)
== END 2022-10-03 10:37 | disposition home or self-care (01) ==
PROVIDERS: Visit Provider Orthopaedic Surgery
DX: M00.851 Arthritis due to other bacteria, right hip (principal); L02.415 Cutaneous abscess of right lower limb
CPT/HCPCS: 36415; 80053; 85025; 86140

== ENCOUNTER 2022-10-17 10:10 | Outpatient (NON) | payer OTHER, SELFPAY ==
[2022-10-17 10:38] LABS: Basophils Absolute Auto 0.04 K/mm3 (0.00-0.10); Basophils Percent Auto 0.8 % (0.0-1.0); Eosinophils Absolute Auto 0.12 K/mm3 (0.02-0.50); Eosinophils Percent Auto 2.3 % (1.0-6.0); Hematocrit 32.2 % (40.0-54.0); Hemoglobin 10.4 g/dL (14.0-18.0); Immature Granulocyte Absolute 0.05 K/mm3 (0.00-0.00); Lymphocytes Absolute Auto 1.36 K/mm3 (1.10-4.50); Lymphocytes Percent Auto 26.4 % (18.0-42.0); Mean Corpuscular HGB Conc 32.3 g/dL (32.0-36.0); Mean Corpuscular Hemoglobin 31.2 pg (27.0-31.0); Mean Corpuscular Volume 96.7 fL (78.0-102.0); Mean Platelet Volume 9.8 fl (8.7-11.0); Monocytes Absolute Auto 0.38 K/mm3 (0.10-0.90); Monocytes Percent Auto 7.4 % (2.0-11.0); Neutrophils Absolute Auto 3.2 K/mm3 (1.7-7.2); Neutrophils Percent Auto 62.1 % (50.0-70.0); Platelet Count Result 152 K/mm3 (150-420); Red Blood Count 3.33 M/mm3 (4.70-6.10); Red Cell Distribution Width 15.3 % (11.6-14.4); White Blood Count 5.2 K/mm3 (4.8-10.8)
[2022-10-17 11:05] LABS: Alanine Aminotransferase 21 U/L (16-63); Albumin Level 3.4 g/dL (3.4-5.0); Alkaline Phosphatase 89 U/L (46-116); Anion Gap 9 mmol/L (8-16); Aspartate Amino Transferase 27 U/L (15-37); Bilirubin,Total 0.7 mg/dL (0.00-1.00); Blood Urea Nitrogen 20 mg/dL (7-18); Calcium 9.1 mg/dL (8.5-10.1); Carbon Dioxide 27 mmol/L (21-32); Chloride 103 mmol/L (98-108); Estimated Glomerular Filt Rate > 60; Glucose 218 mg/dL (70-99); Osmolality Calculated 297 mOsm/kg (285-295); Potassium 5.4 mmol/L (3.5-5.1); Sodium 139 mmol/L (136-145); Total Protein 6.9 g/dL (6.4-8.2)
== END 2022-10-17 10:11 | disposition home or self-care (01) ==
LOC: CHSHH 10:13
PROVIDERS: Visit Provider Orthopaedic Surgery
DX: M71.051 Abscess of bursa, right hip (principal)
CPT/HCPCS: 36415; 80053; 85025

== ENCOUNTER 2022-10-24 10:06 | Outpatient (NON) | payer OTHER, SELFPAY ==
[2022-10-24 10:32] LABS: Basophils Absolute Auto 0.02 K/mm3 (0.00-0.10); Basophils Percent Auto 0.4 % (0.0-1.0); Eosinophils Absolute Auto 0.11 K/mm3 (0.02-0.50); Eosinophils Percent Auto 2.3 % (1.0-6.0); Hemoglobin 10.5 g/dL (14.0-18.0); Immature Granulocyte Absolute 0.05 K/mm3 (0.00-0.00); Immature Granulocyte Percent A 1.1 % (0.0-0.0); Lymphocytes Absolute Auto 1.42 K/mm3 (1.10-4.50); Lymphocytes Percent Auto 30.3 % (18.0-42.0); Mean Corpuscular HGB Conc 32.8 g/dL (32.0-36.0); Mean Corpuscular Hemoglobin 31.8 pg (27.0-31.0); Mean Platelet Volume 10.1 fl (8.7-11.0); Monocytes Absolute Auto 0.39 K/mm3 (0.10-0.90); Monocytes Percent Auto 8.3 % (2.0-11.0); Neutrophils Absolute Auto 2.7 K/mm3 (1.7-7.2); Neutrophils Percent Auto 57.6 % (50.0-70.0); Platelet Count Result 136 K/mm3 (150-420); Red Cell Distribution Width 15.4 % (11.6-14.4); White Blood Count 4.7 K/mm3 (4.8-10.8)
[2022-10-24 10:44] LABS: Alanine Aminotransferase 33 U/L (16-63); Albumin Level 3.3 g/dL (3.4-5.0); Alkaline Phosphatase 82 U/L (46-116); Anion Gap 8 mmol/L (8-16); Aspartate Amino Transferase 20 U/L (15-37); Bilirubin,Total 0.6 mg/dL (0.00-1.00); Blood Urea Nitrogen 15 mg/dL (7-18); Calcium 8.8 mg/dL (8.5-10.1); Carbon Dioxide 28 mmol/L (21-32); Chloride 104 mmol/L (98-108); Estimated Glomerular Filt Rate > 60; Glucose 157 mg/dL (70-99); Osmolality Calculated 293 mOsm/kg (285-295); Potassium 4.8 mmol/L (3.5-5.1); Sodium 140 mmol/L (136-145); Total Protein 6.7 g/dL (6.4-8.2)
[2022-10-24 10:46] LABS: CRP < 0.5 mg/dL (0.0-0.9)
== END 2022-10-24 10:07 | disposition home or self-care (01) ==
LOC: CHSHH 10:07
PROVIDERS: Visit Provider Orthopaedic Surgery
DX: L02.415 Cutaneous abscess of right lower limb (principal); M71.051 Abscess of bursa, right hip
CPT/HCPCS: 80053; 85025; 86140

== ENCOUNTER 2022-10-26 14:43 | Emergency (ER) | payer OTHER, SELFPAY ==
--- NOTE | ~2022-10-26 | XR_ITS ---
EXAMINATION: XR humerus RT INDICATION: PICC removal, assess for foreign body TECHNIQUE: Two views of the right humerus are obtained. COMPARISON: 01/23/2022 FINDINGS: Suture anchors are noted in the humeral head. No additional radiopaque foreign body is iden tified. Bone alignment is normal. There is no fracture. The soft tissues are unremarkable. IMPRESSION: 1. No PICC fragment identified. If there is high clinical suspicion for disrupted catheter, chest rad iograph would be recommended to assess for any embolized fragments into the heart or lungs. Reviewed, dictated and finalized at location L. IMPRESSION: 1. No PICC fragment identified. If there is high clinical suspicion for disrupt ed catheter, chest radiograph would be recommended to assess for any embolized fragments into the heart or lungs.
[2022-10-26 15:15] VITALS: BP 115/90; PULSE 72; RESP 20; TEMP 36.8; O2SAT 98
--- NOTE | 2022-10-26 16:11 | ED.GENADULT ---
HPI - General Adult General Chief complaint: Unspecified Stated complaint: PICC line issues Time Seen by Provider: 10/26/22 14:45 Source: patient and family Mode of arrival: ambulatory Limitations: no limitations History of Present Illness HPI narrative: Patient has a PICC line in place and had completed his course of antibiotics and home health tried to remove the PICC PICC line but they found resistance and had him present to the emergency department to have it evaluated. Currently there is no erythema no drainage from the PICC line site which is on the right upper arm. Onset (ago): hour(s) Related Data Home Medications Medication Instructions Recorded Confirmed multivitamin 1 tablet PO DAILY 02/10/21 10/05/22 amlodipine 5 mg tablet 5 mg PO DAILY 12/09/21 10/05/22 clopidogrel 75 mg tablet 75 mg PO DAILY 03/20/22 10/05/22 ketoconazole 2 % topical cream 1 applic topical BID 05/26/22 10/05/22 ferrous sulfate 325 mg (65 mg 325 mg PO BID 09/18/22 10/05/22 iron) tablet Allergies Allergy/AdvReac Type Severity Reaction Status Date / Time Penicillins Allergy Intermediate Hives Verified 09/18/22 07:48 cephalexin AdvReac Intermediate Nausea Verified 09/18/22 07:48 hydrocodone [From [place]] AdvReac Intermediate Nausea and Verified 09/18/22 07:48 Vomiting Review of Systems Review of Systems: All systems reviewed & are unremarkable except as noted in HPI and below PMFSH Past Medical History Medical History Acid reflux Acute medial meniscus tear of left knee Anxiety Aortic stenosis mild to moderate Benign paroxysmal positional vertigo Cellulitis Chronic back pain Complete rotator cuff tear of left shoulder CVA, old, ataxia Degenerative arthritis of left knee Degenerative disc disease Diabetes Dizziness JEWEL (generalized anxiety disorder) Heart beat abnormality Heart murmur Sees Dr Meehan History of dental problems Hyperlipidemia Hypertension Nontraumatic rupture of long head of biceps tendon of right shoulder Obesity Psoriasis Restless legs syndrome (RLS) Septic arthritis of hip Sleep apnea Stroke Type 2 diabetes mellitus Ulcer Wears glasses Surgical History Surgical History H/O knee surgery 2020 Dr. Corwley History of appendectomy History of back surgery Right L1-2 microscopic lumbar diskectomy right L2-3 hemilaminectomy right L5-S1 far lateral foraminotomy and microdiskectomy 02/28/22 S/P total hip arthroplasty Rt ALIREZA 06/21/22 Status post reverse total arthroplasty of left shoulder 05/02/2022 Dr. Guille Guillaume at [facility] Family History Family History Mother Family history of dementia Cerebrovascular accident Family history of malignant neoplasm Father Family history of malignant neoplasm Other Diabetes mellitus Family history of arthritis Family history of cardiovascular disease Family history of type 2 diabetes mellitus Hypertension Social History Social History Social History: The patient lives with his and he has one daughter . He is unemployed. The patient is lifelong nonsmoker. Code status full code Smoking status: Never smoker Second hand tobacco smoke exposure: No Additional smoking assessment comments: STATES OCCASIONALLY VAPES - LAST 05/25/22 PM Alcohol intake: never Drinks per week: 12 Alcohol use details: beer Substance use: never Substance use type: does not use Lack of Transportation: No Lack of Food: Never True Current Housing: I Have Housing Concerned About Future Housing: No Difficulty Paying Gas/Electric Bills: No Difficulty Paying for Meds: No Currently Unemployed: No Education: High School Diploma/GED Difficulty w/ Childcare or Family Care: No Living arrangements: with family Sp
[2022-10-26 16:32] VITALS: BP 157/84; PULSE 72; RESP 18; TEMP 36.6; O2SAT 98
--- NOTE | 2022-10-26 16:39 | PC.NURSE ---
On 10/26/22, the student, [ryan buck ], provided care and completed [facility] documentation on this patient. I have reviewed the student's documentation and agree with the findings.
== END 2022-10-26 16:39 | disposition home or self-care (01) ==
PROVIDERS: Emergency Provider Emergency Medicine; PCP Family Medicine
DX: Z45.2 Encounter for adjustment and management of vascular access device (principal); E11.9 Type 2 diabetes mellitus without complications; E78.5 Hyperlipidemia, unspecified; I10 Essential (primary) hypertension; Z86.73 Personal history of transient ischemic attack (TIA), and cerebral infarction without residual deficits
CPT/HCPCS: 73060; 99283

== ENCOUNTER 2022-10-30 09:24 | Outpatient (CLI) | payer OTHER, SELFPAY ==
[2022-10-30 10:24] LABS: Cholesterol 174 mg/dL (0-200); HDL Direct 58 mg/dL (40-60); LDL Cholesterol Calculated 94 mg/dL (<130); Triglycerides 109 mg/dL (0-150)
[2022-10-30 10:25] LABS: CRP < 0.5 mg/dL (0.0-0.9)
== END 2022-10-30 09:25 | disposition home or self-care (01) ==
PROVIDERS: Orthopaedic Surgery; PCP Family Medicine; Visit Provider Student in an Organized Health Care Education/Training Program
DX: I69.993 Ataxia following unspecified cerebrovascular disease (principal); L02.415 Cutaneous abscess of right lower limb; M00.9 Pyogenic arthritis, unspecified
CPT/HCPCS: 36415; 80061; 86140

== ENCOUNTER 2022-11-17 09:08 | Outpatient (CLI) | payer OTHER, SELFPAY ==
--- NOTE | 2022-11-17 09:25 | ECG_ITS ---
Measurements Intervals [place] Rate: 62 P: 11 UT: 181 QRS: -7 QRSD: 96 T: -30 QT: 390 QTc: 399 Interpretive Statements SINUS RHYTHM BASELINE ARTIFACT MODERATE VOLTAGE CRITERIA FOR LVH, CONSIDER NORMAL VARIANT NONSPECIFIC T-WAVE ABNORMALITY INFERIOR LEADS BORDERLINE ECG COMPARED TO ECG 08/29/2022 14:21:22 T-WAVE ABNORMALITY NOW PRESENT Electronically Signed On 11-17-2022 16:04:58 CDT by Crispin Cabello M.D.
[2022-11-17 09:38] LABS: Basophils Absolute Auto 0.04 K/mm3 (0.00-0.10); Basophils Percent Auto 0.8 % (0.0-1.0); Eosinophils Absolute Auto 0.11 K/mm3 (0.02-0.50); Eosinophils Percent Auto 2.2 % (1.0-6.0); Hematocrit 37.1 % (40.0-54.0); Hemoglobin 12.3 g/dL (14.0-18.0); Immature Granulocyte Absolute 0.07 K/mm3 (0.00-0.00); Immature Granulocyte Percent A 1.4 % (0.0-0.0); Lymphocytes Absolute Auto 1.66 K/mm3 (1.10-4.50); Mean Corpuscular HGB Conc 33.2 g/dL (32.0-36.0); Mean Corpuscular Hemoglobin 31.9 pg (27.0-31.0); Mean Corpuscular Volume 96.4 fL (78.0-102.0); Mean Platelet Volume 9.4 fl (8.7-11.0); Monocytes Absolute Auto 0.58 K/mm3 (0.10-0.90); Monocytes Percent Auto 11.5 % (2.0-11.0); Neutrophils Absolute Auto 2.6 K/mm3 (1.7-7.2); Neutrophils Percent Auto 51.1 % (50.0-70.0); Platelet Count Result 150 K/mm3 (150-420); Red Blood Count 3.85 M/mm3 (4.70-6.10); Red Cell Distribution Width 14.3 % (11.6-14.4)
[2022-11-17 09:46] LABS: Appearance Urine Clear (Clear); Bilirubin Urine Negative (Negative); Blood Urine Negative (Negative); Color Urine Yellow (Yellow); Glucose Urine UA Negative (Negative); Ketones Urine Negative (Negative); Leukocyte Esterase Ur Negative LEU/UL (Negative); Nitrate Urine Negative (Negative); Protein Urine 2+ (Negative); Specific Grav Ur 1.025 (1.010-1.020); Urobilinogen Urine 0.2 mg/dL (0.2-1.0)
[2022-11-17 09:59] LABS: Add Urine Microscopic? YES; Bacteria Urine None seen /hpf; RBC Urine 0-2 /hpf (0-2); Squamous Epithelial Cell Urine Rare /hpf (Few); WBC Urine 0-3 /hpf (0-3)
[2022-11-17 10:45] LABS: Erythrocyte Sedimentation Rate 13 mm/hr (0-20)
[2022-11-17 11:39] LABS: Anion Gap 9 mmol/L (8-16); Blood Urea Nitrogen 19 mg/dL (7-18); Calcium 8.8 mg/dL (8.5-10.1); Carbon Dioxide 26 mmol/L (21-32); Chloride 107 mmol/L (98-108); Estimated Glomerular Filt Rate > 60; Glucose 135 mg/dL (70-99); Osmolality Calculated 298 mOsm/kg (285-295); Potassium 4.3 mmol/L (3.5-5.1); Sodium 142 mmol/L (136-145)
[2022-11-17 11:49] LABS: CRP < 0.5 mg/dL (0.0-0.9)
== END 2022-11-17 09:09 | disposition home or self-care (01) ==
LOC: CHSLAB 09:09
PROVIDERS: PCP Family Medicine; Visit Provider Orthopaedic Surgery
DX: I10 Essential (primary) hypertension (principal); M00.9 Pyogenic arthritis, unspecified; R94.31 Abnormal electrocardiogram [ECG] [EKG]
CPT/HCPCS: 36415; 80048; 81001; 85025; 85652; 86140; 93005

== ENCOUNTER 2022-11-24 09:12 | Outpatient (CLI) | payer OTHER, SELFPAY ==
--- NOTE | ~2022-11-24 | US_ITS ---
EXAMINATION: US carotid duplex BI DATE: 11/24/2022 09:46 INDICATION: Follow-up carotid stenosis TECHNIQUE: Grayscale, color Doppler, and pulsed Doppler images of the cervical carotid arteries were obtained. The degree of vessel stenosis is placed in one of the following categories: normal, <50%, 5 0-69%, >=70% but less than near-occlusion, near-occlusion, or total occlusion. Note that percent sten osis relative to normal distal artery lumen diameter is indirectly measured from velocity measurement s as described by John, et al. Radiology 2003; 229:340-346. Notes: Normal: Peak systolic velocity <125 centimeters/sec and no plaque <50%. Peak systolic velocity <125 ( EDV <40; ICA/CCA PSV ratio <2.0; used these factors only a tandem lesions or low cardiac output or co ntralateral disease) 50-69 %: PSV 125-230 (EDV 40-100; ratio 2-4) >= 70% but less than near occlusion: PSV greater than 230 (EDV > 100; ratio> 4.0) Near Occlusion: PSV that is variable; markedly narrowed lumen Occlusion: Absent flow on color/spectral Doppler and no lumen on riojas scale. COMPARISON: None. FINDINGS: RIGHT: The right common carotid artery (CCA) peak systolic velocity (PSV) is 88 cm/s. The right internal car otid artery (ICA) PSV is 78 cm/s. The right ICA end-diastolic velocity (EDV) is 30 cm/s. The right IC A/CCA PSV ratio is 0.89. The external carotid artery (ECA) PSV is 81 cm/s. There is antegrade flow in the right vertebral artery. LEFT: The left CCA PSV is 103 cm/s. The left ICA PSV is 69 cm/s. The left ICA EDV is 17 cm/s. The left ICA/ CCA PSV ratio is 0.67. The ECA PSV is 103 cm/s. There is antegrade flow in the left vertebral artery . IMPRESSION: 1. Less than 50% stenosis in the right internal carotid artery by sonographic criteria. 2. Less than 50% stenosis in the left internal carotid artery by sonographic criteria. Reviewed, dictated and finalized at location A. IMPRESSION: 1. Less than 50% stenosis in the right internal carotid artery by sonographic star neri. 2. Less than 50% stenosis in the left internal carotid artery by sonographic mark lazo.
[2022-11-24 09:26] LABS: Hematocrit 38.2 % (40.0-54.0); Hemoglobin 12.8 g/dL (14.0-18.0); Mean Corpuscular HGB Conc 33.5 g/dL (32.0-36.0); Mean Corpuscular Hemoglobin 32.1 pg (27.0-31.0); Mean Corpuscular Volume 95.7 fL (78.0-102.0); Mean Platelet Volume 9.4 fl (8.7-11.0); Platelet Count Result 148 K/mm3 (150-420); Red Blood Count 3.99 M/mm3 (4.70-6.10); Red Cell Distribution Width 13.8 % (11.6-14.4); White Blood Count 6.2 K/mm3 (4.8-10.8)
[2022-11-24 09:39] LABS: Hemoglobin A1C 5.9 % (<5.7)
[2022-11-24 10:15] LABS: Alanine Aminotransferase 33 U/L (16-63); Alkaline Phosphatase 87 U/L (46-116); Anion Gap 9 mmol/L (8-16); Aspartate Amino Transferase 21 U/L (15-37); Bilirubin,Total 0.6 mg/dL (0.00-1.00); Blood Urea Nitrogen 15 mg/dL (7-18); Calcium 9.1 mg/dL (8.5-10.1); Carbon Dioxide 27 mmol/L (21-32); Chloride 105 mmol/L (98-108); Estimated Glomerular Filt Rate > 60; Glucose 140 mg/dL (70-99); Osmolality Calculated 294 mOsm/kg (285-295); Potassium 4.5 mmol/L (3.5-5.1); Sodium 141 mmol/L (136-145); Total Protein 7.3 g/dL (6.4-8.2)
== END 2022-11-24 09:13 | disposition home or self-care (01) ==
LOC: CHSIMG 09:13
PROVIDERS: PCP Family Medicine; Visit Provider Family Medicine
DX: E11.9 Type 2 diabetes mellitus without complications (principal); M00.851 Arthritis due to other bacteria, right hip; I63.9 Cerebral infarction, unspecified; I65.23 Occlusion and stenosis of bilateral carotid arteries
CPT/HCPCS: 36415; 80053; 83036; 85027; 93880

== ENCOUNTER 2022-12-04 11:39 | Outpatient (CLI) | payer OTHER, SELFPAY ==
[2022-12-04 12:27] LABS: CRP < 0.5 mg/dL (0.0-0.9)
[2022-12-04 13:03] LABS: Erythrocyte Sedimentation Rate 12 mm/hr (0-20)
== END 2022-12-04 11:40 | disposition home or self-care (01) ==
LOC: CHSLAB 11:45
PROVIDERS: PCP Family Medicine
DX: Z89.621 Acquired absence of right hip joint (principal)
CPT/HCPCS: 36415; 85652; 86140

== ENCOUNTER 2022-12-14 11:20 | Outpatient (CLI) | payer OTHER, SELFPAY ==
[2022-12-14 11:41] LABS: Hematocrit 20.2 % (40.0-54.0); Mean Corpuscular HGB Conc 32.7 g/dL (32.0-36.0); Mean Corpuscular Volume 98.1 fL (78.0-102.0); Platelet Count Result 230 K/mm3 (150-420); Red Blood Count 2.06 M/mm3 (4.70-6.10); Red Cell Distribution Width 13.7 % (11.6-14.4); White Blood Count 7.6 K/mm3 (4.8-10.8)
[2022-12-14 11:44] LABS: Hemoglobin 6.6 g/dL (14.0-18.0)
[2022-12-14 12:24] LABS: Alanine Aminotransferase 27 U/L (16-63); Alkaline Phosphatase 73 U/L (46-116); Anion Gap 11 mmol/L (8-16); Aspartate Amino Transferase 26 U/L (15-37); Bilirubin,Total 0.6 mg/dL (0.00-1.00); Blood Urea Nitrogen 16 mg/dL (7-18); Calcium 8.9 mg/dL (8.5-10.1); Carbon Dioxide 27 mmol/L (21-32); Chloride 103 mmol/L (98-108); Estimated Glomerular Filt Rate > 60; Glucose 136 mg/dL (70-99); Iron 72 ug/dL (65-175); Osmolality Calculated 295 mOsm/kg (285-295); Potassium 4.3 mmol/L (3.5-5.1); Sodium 141 mmol/L (136-145); Total Protein 6.7 g/dL (6.4-8.2)
[2022-12-14 12:33] LABS: Band Neutrophils Percent 0 % (0-6); Basophils Percent Manual 0 % (0-1); Eosinophils Percent Manual 0 % (1-6); Lymphocytes Absolute Manual 2.05 K/mm3 (1.1-4.5); Lymphocytes Percent Manual 27 % (18-44); Monocytes Absolute Manual 0.91 K/mm3 (0.1-0.90); Monocytes Percent Manual 12 % (3-9); Myelocytes Percent 2 %; Neutrophils Absolute Manual 4.25 K/mm3 (1.3-6.7); Neutrophils Percent Manual 56 % (46-73); Platelet Estimate Adequate (Adequate); Total Cells Counted 100
== END 2022-12-14 11:21 | disposition home or self-care (01) ==
LOC: CHSLAB 11:21
PROVIDERS: PCP Nurse Practitioner Family; Visit Provider Nurse Practitioner Family
DX: D62 Acute posthemorrhagic anemia (principal)
CPT/HCPCS: 36415; 80053; 83540; 85025

== ENCOUNTER 2022-12-14 12:20 | Emergency (ER) | payer OTHER, SELFPAY ==
[2022-12-14] VITALS (42 sets, daily range): BP systolic 96–129; BP diastolic 50–95; PULSE 78–93; RESP 13–22; TEMP 37.3–37.8; O2SAT 96–100
--- NOTE | ~2022-12-14 | CT_ITS ---
Non-contrast CT scan of the Abdomen and Pelvis Clinical indication: Abdominal pain, GI bleed Technique: 2.5 mm axial scans were obtained through the abdomen and pelvis without intravenous or or al contrast. Dose reduction technique was used on this scan by utilizing automated exposure control a nd iterative reconstruction technique. The dose-length product (DLP) was 1439.79 mGy-cm. Findings: Images through the lung bases reveal no abnormalities. There is no evidence of renal or ureteral calculi. The kidneys and the ureters are nondilated. The liver, spleen, pancreas, gallbladder, and right adrenal gland appear normal. Left renal lipoma/my elolipoma present. There is no aortic aneurysm. There is no evidence of bowel obstruction. Fat-containing umbilical hernia noted. Images through the pelvis are degraded by streak artifact from right hip arthroplasty. There is no ev idence of ascites or lymphadenopathy. Urinary bladder appears unremarkable. Bilateral fat-containing inguinal hernias are present, left greater than right. Prostate gland is unremarkable. Small bubble o f soft tissue gas present in the proximal right thigh, consistent with sequelae recent surgery. Impression: Small fat-containing umbilical hernia. Small bilateral fat-containing inguinal hernias. Reviewed, dictated and finalized at [facility]. Impression: Small fat-containing umbilical hernia. Small bilateral fat-containing inguinal hernias.
--- NOTE | 2022-12-14 12:37 | ECG_ITS ---
Measurements Intervals [place] Rate: 81 P: 13 NM: 174 QRS: 4 QRSD: 105 T: -59 QT: 359 QTc: 418 Interpretive Statements SINUS RHYTHM DELAYED PRECORDIAL R/S TRANSITION LEFT VENTRICULAR HYPERTROPHY WITH ST-T CHANGE ST-T WAVE ABNORMALITY IN INFERIOR LEADS- CONSIDER ISCHEMIA ABNORMAL ECG COMPARED TO ECG 11/17/2022 09:37:48 ST-T WAVE ABNORMALITY NOW PRESENT Electronically Signed On 12-14-2022 13:50:26 CDT by Neymar Barnett D.O.
[2022-12-14 13:25] LABS: CRP 4.7 mg/dL (0.0-0.9); Lipase 35 U/L (16-77); Magnesium 1.7 mg/dL (1.8-2.4); Partial Thromboplastin Time 26.2 SEC (23.90-30.70); Prothrombin Time 10.5 Seconds (9.50-12.10)
[2022-12-14 13:35] LABS: Lactic Acid Reflex 1.3 mmol/L (0.4-2.0)
[2022-12-14] MEDS: SODIUM CHLORIDE 0.9% IV 1,000 ML 999 ML IV CONT (13:37)
[2022-12-14] MEDS: SODIUM CHLORIDE 0.9% IV 250 ML 30 ML IV CONT (13:37)
--- NOTE | 2022-12-14 13:58 | PC.NURSE ---
1335 blood consent signed per patient. 1351 transfusion started. offered warmer. pt declined at this time. explained can be applied if needed later.
[2022-12-14 14:05] LABS: Occult Blood Positive (Negative)
[2022-12-14] MEDS: PANTOPRAZOLE SODIUM IV 40 MG VIAL 80 MG IV PUSH (14:47)
--- NOTE | 2022-12-14 15:09 | ED.RECABL ---
HPI - Recheck/Abnormal Lab/Rx General Chief Complaint: Recheck/Abnormal Lab/Rx Stated Complaint: weakness; abnormal labs Time Seen by Provider: 12/14/22 12:31 Source: patient and family Mode of arrival: ambulatory Limitations: no limitations History of Present Illness HPI narrative: This is a 57-year-old male presents with his with weakness and dark stools the patient had outpatient blood work earlier today by his primary care provider which showed an H&H of 6.6 and 20.6. And presented to the emergency department. 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 The patient has a history of a chronic CVA with ataxia, aortic stenosis with diabetes type 2, the patient November of 2022 had an H&H of 12 and 38 and currently Initial visit (ago): day(s) Related Data Home Medications Medication Instructions Recorded Confirmed multivitamin 1 tablet PO DAILY 02/10/21 12/14/22 amlodipine 5 mg tablet 5 mg PO DAILY 12/09/21 12/14/22 clopidogrel 75 mg tablet 75 mg PO DAILY 03/20/22 12/14/22 ketoconazole 2 % topical cream 1 applic topical BID 05/26/22 12/14/22 ferrous sulfate 325 mg (65 mg 325 mg PO BID 09/18/22 12/14/22 iron) tablet Allergies Allergy/AdvReac Type Severity Reaction Status Date / Time Penicillins Allergy Intermediate Hives Verified 11/24/22 07:21 cephalexin AdvReac Intermediate Nausea Verified 11/24/22 07:21 hydrocodone [From [place]] AdvReac Intermediate Nausea and Verified 11/24/22 07:21 Vomiting Review of Systems Review of Systems: All systems reviewed & are unremarkable except as noted in HPI and below [facility] Past Medical History Medical History Acid reflux Acute medial meniscus tear of left knee Anxiety Aortic stenosis mild to moderate Benign paroxysmal positional vertigo Cellulitis Chronic back pain Complete rotator cuff tear of left shoulder CVA, old, ataxia Degenerative arthritis of left knee Degenerative disc disease Diabetes Dizziness JEWEL (generalized anxiety disorder) Heart beat abnormality Heart murmur Sees Dr Meehan History of dental problems Hyperlipidemia Hypertension Nontraumatic rupture of long head of biceps tendon of right shoulder Obesity Psoriasis Restless legs syndrome (RLS) Septic arthritis of hip Sleep apnea Stroke Type 2 diabetes mellitus Ulcer Wears glasses Surgical History Surgical History H/O knee surgery 2020 Dr. Crowley History of appendectomy History of back surgery Right L1-2 microscopic lumbar diskectomy right L2-3 hemilaminectomy right L5-S1 far lateral foraminotomy and microdiskectomy 02/28/22 S/P total hip arthroplasty Rt ALIREZA 06/21/22 Status post reverse total arthroplasty of left shoulder 05/02/2022 Dr. Guille Guillaume at [place] Family History Family History Mother Family history of dementia Cerebrovascular accident Family history of malignant neoplasm Father Family history of malignant neoplasm Other Diabetes mellitus Family history of arthritis Family history of cardiovascular disease Family history of type 2 diabetes mellitus Hypertension Social History Social History Social History: The patient lives with his and he has one daughter . He is unemployed. The patient is lifelong nonsmoker. Code status full code Smoking status: Never smoker Second hand tobacco smoke exposure: No Additional smoking assessment comments: STATES OCCASIONALLY VAPES - LAST 05/25/22 PM Alcohol intake: never Drinks per week: 12 Alcohol use details: beer Substance use: never Substance use type: does not use Lack of Transportation: No Lack of Food: Never True Current Housing: I Have Housing Concerned Abo
--- NOTE | 2023-01-18 11:34 | PC.NURSE ---
FINAL BLOOD CULTURE RESULTS: NO GROWTH AFTER 5 DAYS.
== END 2022-12-14 16:50 | disposition short-term general hospital (02) ==
PROVIDERS: Emergency Provider Emergency Medicine; PCP Family Medicine
DX: K92.2 Gastrointestinal hemorrhage, unspecified (principal); E11.9 Type 2 diabetes mellitus without complications; E78.5 Hyperlipidemia, unspecified; I10 Essential (primary) hypertension
CPT/HCPCS: 36415; 36430; 74176; 82272; 83605; 83690; 83735; 85610; 85730; 86140; 86850; 86900; 86901; 86920; 87040; 93005; 96361; 96374; 99285; C9113; J7030; J7050; P9016

== ENCOUNTER 2022-12-19 14:28 | Outpatient (CLI) | payer OTHER, SELFPAY ==
[2022-12-19 14:40] LABS: Hematocrit 26.1 % (40.0-54.0); Hemoglobin 8.4 g/dL (14.0-18.0); Mean Corpuscular HGB Conc 32.2 g/dL (32.0-36.0); Mean Corpuscular Hemoglobin 31.1 pg (27.0-31.0); Mean Corpuscular Volume 96.7 fL (78.0-102.0); Mean Platelet Volume 8.8 fl (8.7-11.0); Platelet Count Result 274 K/mm3 (150-420); Red Cell Distribution Width 15.1 % (11.6-14.4); White Blood Count 7.7 K/mm3 (4.8-10.8)
[2022-12-19 16:31] LABS: Band Neutrophils Percent 0 % (0-6); Eosinophils Absolute Manual 0.15 K/mm3 (0.02-0.5); Eosinophils Percent Manual 2 % (1-6); Lymphocytes Absolute Manual 1.84 K/mm3 (1.1-4.5); Lymphocytes Percent Manual 24 % (18-44); Metamyelocytes Percent 2 %; Monocytes Absolute Manual 0.84 K/mm3 (0.1-0.90); Monocytes Percent Manual 11 % (3-9); Neutrophils Absolute Manual 4.69 K/mm3 (1.3-6.7); Neutrophils Percent Manual 61 % (46-73); Platelet Estimate Adequate (Adequate); Schistocytes None Seen (NORMAL); Total Cells Counted 100
== END 2022-12-19 14:29 | disposition home or self-care (01) ==
LOC: CHSLAB 14:30
PROVIDERS: PCP Family Medicine; Visit Provider Family Medicine
DX: D64.9 Anemia, unspecified (principal)
CPT/HCPCS: 36415; 85025

== ENCOUNTER 2022-12-28 13:18 | Outpatient (CLI) | payer OTHER, SELFPAY ==
[2022-12-28 13:38] LABS: Hematocrit 29.1 % (40.0-54.0); Hemoglobin 9.5 g/dL (14.0-18.0); Mean Corpuscular HGB Conc 32.6 g/dL (32.0-36.0); Mean Corpuscular Hemoglobin 31.4 pg (27.0-31.0); Mean Platelet Volume 8.9 fl (8.7-11.0); Platelet Count Result 229 K/mm3 (150-420); Red Blood Count 3.03 M/mm3 (4.70-6.10); Red Cell Distribution Width 15.9 % (11.6-14.4); White Blood Count 6.3 K/mm3 (4.8-10.8)
== END 2022-12-28 13:19 | disposition home or self-care (01) ==
LOC: CHSLAB 13:19
PROVIDERS: PCP Family Medicine; Visit Provider Family Medicine
DX: K25.9 Gastric ulcer, unspecified as acute or chronic, without hemorrhage or perforation (principal)
CPT/HCPCS: 36415; 85027

== ENCOUNTER 2023-01-15 09:00 | Outpatient (RCR) | payer OTHER, SELFPAY ==
--- NOTE | 2023-01-16 08:33 | PTOPEVAL1 ---
Assessment and note entered by Kip Amaral Evaluation Information Assessment Status Evaluation Diagnosis right ALIREZA Onset 12/08/22 Subjective Information Pt. reports that he initially underwent hip replacement in August. He reports that he developed an infection and had a spacer put in place limiting his WB for several months. He reports that the new hip was put in on 12/08/22. He reports that he is having trouble lifting the right l.e. He states that he does have pain in the groin with movement and WB. He was doing HH but was recently discharged. he reports that he is no longer using an AD. He reports that he can only stand for about 10 minutes due to pain in the back and hip. He still notices that he has a limp. He reports that his goal for PT is to improve his ability to stand and to walk normal. Reported Pain Level Pain Score 5: Self Report Assessment PT Clinical Summary Pt. is a 57 year old male who enters the clinic following right ALIREZA. He present with impaired l.e . strength, impaired gait, impaired postural awareness, and functional decline. Continued skilled PT is indicated in order to allow the pt. to be able to complete all IADL's with improved efficiency and strength. Plan of Care Interventions Gait Training,Manual Therapy,Neuro Re-education, Patient/Caregiver Educati,Therapeutic Activities, Therapeutic Exercise PT Services Indicated Yes Treatment Frequency and 2x/week x 10 visits Duration These treatments will address the objective and functional deficits as defined above. The patient will be advanced safely and appropriately in order for the patient to progress towards his/her prior level of function. Additional exercises will be introduced and as well as a comprehensive home exercise program upon discharge, if needed, ?to ensure carryover of functional gains achieved in the clinic. This treatment plan has been reviewed and agreement upon by the patient.
--- NOTE | 2023-01-16 08:36 | OPREHPOC ---
Outpatient Therapy Plan of Care This is a Multidisciplinary Plan of Care that may contain components documented by all disciplines (PT, OT, and ST.) PT Problem 1 PT Problem #1 Knowledge Deficit PT Goal 1 Goal Pt. will be independent with a HEP addressing strength and endurance Target Visit 2 PT Problem 2 PT Problem #2 Impaired Gait PT Goal 1 Goal Pt. will ambulate without noted trendelenburg Target Visit 6 PT Goal 2 Goal Pt. will complete 6 minute walk test with a distance of 1000' Target Visit 10 PT Problem 3 PT Problem #3 Impaired Endurance PT Goal 1 Goal Pt. will be able to stand for 20-30 minutes without rest. Target Visit 10
== END 2023-02-01 19:00 | disposition home or self-care (01) ==
LOC: CHSPT 09:00
PROVIDERS: Visit Provider Orthopaedic Surgery
DX: Z47.1 Aftercare following joint replacement surgery (principal); Z96.641 Presence of right artificial hip joint
CPT/HCPCS: 97110; 97112; 97161

== ENCOUNTER 2023-01-19 10:57 | Outpatient (CLI) | payer OTHER, SELFPAY ==
[2023-01-19 11:09] LABS: Hematocrit 35.9 % (40.0-54.0); Hemoglobin 11.7 g/dL (14.0-18.0)
== END 2023-01-19 10:58 | disposition home or self-care (01) ==
LOC: CHSLAB 10:58
PROVIDERS: PCP Family Medicine; Visit Provider Family Medicine
DX: D62 Acute posthemorrhagic anemia (principal)
CPT/HCPCS: 36415; 85014; 85018

== ENCOUNTER 2023-02-01 10:25 | Outpatient (CLI) | payer OTHER, SELFPAY ==
--- NOTE | ~2023-02-01 | XR_ITS ---
AP and lateral views of the right hip Clinical history: Pain Findings: No acute fracture or dislocation is seen. Right hip arthroplasty in place. No hardware comp lication is evident. Soft tissues are unremarkable. Impression: No acute abnormality. Right hip arthroplasty. Reviewed, dictated and finalized at location . Impression: No acute abnormality. Right hip arthroplasty.
== END 2023-02-01 10:26 | disposition home or self-care (01) ==
LOC: CHSIMG 10:28
PROVIDERS: PCP Family Medicine; Visit Provider Family Medicine
DX: M00.851 Arthritis due to other bacteria, right hip (principal); Z96.641 Presence of right artificial hip joint
CPT/HCPCS: 73502

== ENCOUNTER 2023-04-12 13:19 | Outpatient (RCR) | payer OTHER, SELFPAY ==
--- NOTE | 2023-04-13 08:14 | OPREHPOC ---
Outpatient Therapy Plan of Care This is a Multidisciplinary Plan of Care that may contain components documented by all disciplines (PT, OT, and ST.) PT Problem 1 PT Problem #1 Knowledge Deficit PT Goal 1 Goal 1. Patient to demonstrate independence with HEP to improve progress made in PT. Target Visit 8 PT Problem 2 PT Problem #2 Impaired Range of Motion PT Goal 1 Goal 1. Patient to achieve 100 degrees of active R hip flexion to improve ability to squat to ground to sisal picker items. 2. Patient to improve R hamstrings length to lacking no more than 8 degrees to improve ability to reach feet for donning shoes. Target Visit 15 PT Problem 3 PT Problem #3 Impaired Strength PT Goal 1 Goal 1. Patient to achieve 4/5 or greater muscle strength in R hip to improve ability to climb stairs. 2. Patient to achieve 5/5 muscle strength in R knee flexion/extension to improve ability to squat . Target Visit 15 PT Problem 4 PT Problem #4 Impaired Gait PT Goal 1 Goal 1. Patient to demonstrate equal step length between R and L sides to normalize gait pattern. Target Visit 15 PT Problem 5 PT Problem #5 Impaired Functional Mobil PT Goal 1 Goal 1. Patient to improve score on LEFS to no more than 35% functional decline to allow for improved quality of life. 2. Patient to ascend/descend stairs to improve ability to navigate home and community environments. Target Visit 15
--- NOTE | 2023-04-13 08:14 | PTOPEVAL1 ---
Assessment and note entered by JT File, PT Evaluation Information Assessment Status Evaluation Diagnosis R ALIREZA revision Onset 12/08/22 Subjective Information Patient reports he had a R ALIREZA revision on December 08 , following infection from the initial ALIREZA in June 2022. Prior to the R ALIREZA revision he was non weight bearing for a period of time. He notes that his balance is not the best following a stroke in 2021. He also has a history of back and shoulder surgery in 2021. He reports difficulty currently with standing up from a chair, ascending /descending stairs, and sleeping at night due to pain with rolling. He notes he does not use any ice, heat, or pain meds to treat the pain. He visited the surgeon at the end of March with good report. Reported Pain Level Pain Score 5: Self Report Assessment PT Clinical Summary Mr. Rutledge is a 57 y/o male who presents to skilled PT s/p R ALIREZA revision. He currently demonstrates impaired R LE strength, ROM, and flexibility. Patient reports difficulty with performance of daily activities such as sit to stand, stairs, and sleeping. He currently has 65% functional decline as assessed by the LEFS. Patient would benefit from continued skilled PT to address ROM, strength , flexibility, and gait deficits in order to improve patient's quality of life and return to all activities. Plan of Care Interventions Electrical Stimulation,Hot Pack/Cold Pack,Manual Therapy,Neuro Re-education,Patient/Caregiver Educati,Therapeutic Activities,Therapeutic Exercise PT Services Indicated Yes Treatment Frequency and 3/x week for 15 visits Duration These treatments will address the objective and functional deficits as defined above. The patient will be advanced safely and appropriately in order for the patient to progress towards his/her prior level of function. Additional exercises will be introduced and as well as a comprehensive home exercise program upon discharge, if needed, ?to ensure carryover of functional gains achieved in the clinic. This treatment plan has been reviewed and agreement upon by the patient.
--- NOTE | 2023-04-13 14:26 | OPREHPOC ---
Outpatient Therapy Plan of Care This is a Multidisciplinary Plan of Care that may contain components documented by all disciplines (PT, OT, and ST.) PT Problem 1 PT Problem #1 Knowledge Deficit PT Goal 1 Goal 1. Patient to demonstrate independence with HEP to improve progress made in PT. Target Visit 8 PT Problem 2 PT Problem #2 Impaired Range of Motion PT Goal 1 Goal 1. Patient to achieve 100 degrees of active R hip flexion to improve ability to squat to ground to pecan picker items. 2. Patient to improve R hamstrings length to lacking no more than 8 degrees to improve ability to reach feet for donning shoes. Target Visit 15 PT Goal 2 Goal 1. Patient to improve L lumbar side bending ROM to at least 15 degrees to improve tolerance to reaching for objects to the side. Target Visit 15 PT Problem 3 PT Problem #3 Impaired Strength PT Goal 1 Goal 1. Patient to achieve 4/5 or greater muscle strength in R hip to improve ability to climb stairs. 2. Patient to achieve 5/5 muscle strength in R knee flexion/extension to improve ability to squat . Target Visit 15 PT Goal 2 Goal patient to hold PPT with supine bilateral hip flexion to 30 degrees off bed PT Problem 4 PT Problem #4 Impaired Gait PT Goal 1 Goal 1. Patient to demonstrate equal step length between R and L sides to normalize gait pattern. Target Visit 15 PT Problem 5 PT Problem #5 Impaired Functional Mobil PT Goal 1 Goal 1. Patient to improve score on LEFS to no more than 35% functional decline to allow for improved quality of life. 2. Patient to ascend/descend stairs to improve ability to navigate home and community environments. Target Visit 15 PT Goal 2 Goal 1. Patient to report back pain as 4/10 or less at worst to improve tolerance for upright activity. Target Visit 15
--- NOTE | 2023-05-14 07:17 | PCPTNOTE ---
Mr. Rutledge called and cancelled all appointments this week. He states that he will be in [place] all week.
== END 2023-05-04 23:59 | disposition home or self-care (01) ==
LOC: CHSPT 13:19
DX: Z47.1 Aftercare following joint replacement surgery (principal); Z96.641 Presence of right artificial hip joint
CPT/HCPCS: 97014; 97110; 97140; 97161; G0283

== ENCOUNTER 2023-04-20 08:41 | Outpatient (CLI) | payer OTHER, SELFPAY ==
--- NOTE | ~2023-04-20 | MR_ITS ---
EXAMINATION: MR brain IAC wo/w con DATE: 04/20/2023 09:42 INDICATION: Other sequelae of cerebral infarction. Vertigo. TECHNIQUE: Magnetic resonance imaging (MRI) of the brain, brainstem, and internal auditory canals was performed without and with 20 mL MultiHance intravenous contrast. COMPARISON: Brain MRI 10/05/2021 FINDINGS: There is a focus of increased T2-weighted signal intensity in the right frontal lobe deep w arleen matter, which is normal as an isolated finding. There is a small old infarct in left lateral med dennis. There is no intracranial hemorrhage, acute infarction, or abnormal intracranial mass lesion. Th e ventricles are normal in size. The paranasal sinuses are clear. The internal auditory canals and in ner and middle ears are normal. There is a small right mastoid effusion. The orbits are normal. IMPRESSION: 1. Small old infarct in left lateral medulla. Reviewed, dictated and finalized at location A.
== END 2023-04-20 08:42 | disposition home or self-care (01) ==
PROVIDERS: PCP Family Medicine; Visit Provider Family Medicine
DX: R42 Dizziness and giddiness (principal); I69.398 Other sequelae of cerebral infarction
CPT/HCPCS: 70553; A9577

== ENCOUNTER 2023-06-13 10:45 | Outpatient (CLI) | payer OTHER, SELFPAY ==
--- NOTE | ~2023-06-13 | XR_ITS ---
EXAMINATION: XR chest 2V DATE: 06/13/2023 11:10 INDICATION: Shortness of breath. COVID-19 positive. TECHNIQUE: Frontal and lateral views of the chest were obtained. COMPARISON: Chest 2 views 08/29/2022 FINDINGS: There is no pneumonia, pleural effusion, or pneumothorax. The heart size is normal. There i s a left shoulder arthroplasty. There is mild chronic anterior wedging of L1 vertebral body. IMPRESSION: 1. No acute cardiopulmonary disease. Reviewed, dictated and finalized at location E. [employer]ATOR
[2023-06-13 11:27] LABS: Hematocrit 37.5 % (40.0-54.0); Hemoglobin 12.3 g/dL (14.0-18.0); Mean Corpuscular HGB Conc 32.8 g/dL (32.0-36.0); Mean Corpuscular Hemoglobin 31.9 pg (27.0-31.0); Mean Corpuscular Volume 97.2 fL (78.0-102.0); Mean Platelet Volume 9.7 fl (8.7-11.0); Platelet Count Result 148 K/mm3 (150-420); Red Blood Count 3.86 M/mm3 (4.70-6.10); Red Cell Distribution Width 13.4 % (11.6-14.4); White Blood Count 5.8 K/mm3 (4.8-10.8)
[2023-06-13 11:43] LABS: Alanine Aminotransferase 41 U/L (16-63); Albumin Level 3.6 g/dL (3.4-5.0); Alkaline Phosphatase 89 U/L (46-116); Anion Gap 9 mmol/L (8-16); Aspartate Amino Transferase 28 U/L (15-37); Bilirubin,Total 0.9 mg/dL (0.00-1.00); Blood Urea Nitrogen 10 mg/dL (7-18); Calcium 8.9 mg/dL (8.5-10.1); Carbon Dioxide 27 mmol/L (21-32); Chloride 101 mmol/L (98-108); Estimated Glomerular Filt Rate > 60; Glucose 146 mg/dL (70-99); Osmolality Calculated 286 mOsm/kg (285-295); Potassium 3.9 mmol/L (3.5-5.1); Sodium 137 mmol/L (136-145); Total Protein 7.1 g/dL (6.4-8.2)
[2023-06-13 11:45] LABS: Band Neutrophils Percent 1 % (0-6); Basophils Percent Manual 0 % (0-1); Eosinophils Percent Manual 0 % (1-6); Lymphocytes Absolute Manual 0.81 K/mm3 (1.1-4.5); Lymphocytes Percent Manual 14 % (18-44); Monocytes Absolute Manual 0.58 K/mm3 (0.1-0.90); Monocytes Percent Manual 10 % (3-9); Neutrophils Percent Manual 75 % (46-73); Platelet Estimate Adequate (Adequate); Total Cells Counted 100
== END 2023-06-13 10:46 | disposition home or self-care (01) ==
LOC: CHSLAB 10:46
PROVIDERS: PCP Family Medicine; Visit Provider Family Medicine
DX: M00.851 Arthritis due to other bacteria, right hip (principal); G25.81 Restless legs syndrome; U07.1 COVID-19
CPT/HCPCS: 36415; 71046; 80053; 85025; 87040

== ENCOUNTER 2023-10-08 10:27 | Outpatient (NON) | payer OTHER, SELFPAY ==
[2023-10-08 10:50] LABS: Basophils Absolute Auto 0.04 K/mm3 (0.00-0.10); Basophils Percent Auto 0.5 % (0.0-1.0); Eosinophils Absolute Auto 0.16 K/mm3 (0.02-0.50); Eosinophils Percent Auto 1.9 % (1.0-6.0); Hematocrit 24.2 % (40.0-54.0); Hemoglobin 7.4 g/dL (14.0-18.0); Immature Granulocyte Absolute 0.13 K/mm3 (0.00-0.00); Immature Granulocyte Percent A 1.6 % (0.0-0.0); Lymphocytes Absolute Auto 1.32 K/mm3 (1.10-4.50); Lymphocytes Percent Auto 15.8 % (18.0-42.0); Mean Corpuscular HGB Conc 30.6 g/dL (32.0-36.0); Mean Corpuscular Hemoglobin 29.6 pg (27.0-31.0); Mean Corpuscular Volume 96.8 fL (78.0-102.0); Mean Platelet Volume 9.4 fl (8.7-11.0); Monocytes Absolute Auto 0.82 K/mm3 (0.10-0.90); Monocytes Percent Auto 9.8 % (2.0-11.0); Neutrophils Absolute Auto 5.9 K/mm3 (1.7-7.2); Neutrophils Percent Auto 70.4 % (50.0-70.0); Nucleated Red Blood Cells Absolute Auto 0.03 K/mm3 (0.00-0.00); Nucleated Red Blood Cells Perc 0.4 % (0-0.0); Platelet Count Result 337 K/mm3 (150-420); Red Cell Distribution Width 13.9 % (11.6-14.4); White Blood Count 8.4 K/mm3 (4.8-10.8)
[2023-10-08 11:24] LABS: Alanine Aminotransferase 26 U/L (16-63); Albumin Level 2.4 g/dL (3.4-5.0); Alkaline Phosphatase 88 U/L (46-116); Anion Gap 11 mmol/L (8-16); Aspartate Amino Transferase 23 U/L (15-37); Bilirubin,Total 0.4 mg/dL (0.00-1.00); Blood Urea Nitrogen 13 mg/dL (7-18); CRP 8.8 mg/dL (0.0-0.9); Calcium 8.2 mg/dL (8.5-10.1); Carbon Dioxide 26 mmol/L (21-32); Chloride 100 mmol/L (98-108); Estimated Glomerular Filt Rate > 60; Glucose 227 mg/dL (70-99); Osmolality Calculated 291 mOsm/kg (285-295); Potassium 3.7 mmol/L (3.5-5.1); Sodium 137 mmol/L (136-145); Total Protein 6.6 g/dL (6.4-8.2)
== END 2023-10-08 10:28 | disposition home or self-care (01) ==
LOC: CHSLAB 10:31
DX: M71.051 Abscess of bursa, right hip (principal)
CPT/HCPCS: 36415; 80053; 85025; 86140

== ENCOUNTER 2023-10-15 10:20 | Outpatient (NON) | payer OTHER, SELFPAY ==
[2023-10-15 10:56] LABS: Basophils Absolute Auto 0.03 K/mm3 (0.00-0.10); Basophils Percent Auto 0.4 % (0.0-1.0); Eosinophils Absolute Auto 0.19 K/mm3 (0.02-0.50); Eosinophils Percent Auto 2.7 % (1.0-6.0); Hematocrit 26.6 % (40.0-54.0); Immature Granulocyte Absolute 0.07 K/mm3 (0.00-0.00); Lymphocytes Absolute Auto 1.46 K/mm3 (1.10-4.50); Lymphocytes Percent Auto 20.5 % (18.0-42.0); Mean Corpuscular HGB Conc 30.1 g/dL (32.0-36.0); Mean Corpuscular Hemoglobin 28.9 pg (27.0-31.0); Mean Platelet Volume 9.2 fl (8.7-11.0); Monocytes Absolute Auto 0.69 K/mm3 (0.10-0.90); Monocytes Percent Auto 9.7 % (2.0-11.0); Neutrophils Absolute Auto 4.7 K/mm3 (1.7-7.2); Neutrophils Percent Auto 65.7 % (50.0-70.0); Nucleated Red Blood Cells Absolute Auto 0.03 K/mm3 (0.00-0.00); Nucleated Red Blood Cells Perc 0.4 % (0-0.0); Platelet Count Result 284 K/mm3 (150-420); Red Blood Count 2.77 M/mm3 (4.70-6.10); Red Cell Distribution Width 14.2 % (11.6-14.4); White Blood Count 7.1 K/mm3 (4.8-10.8)
[2023-10-15 11:14] LABS: Alanine Aminotransferase 20 U/L (16-63); Albumin Level 2.6 g/dL (3.4-5.0); Alkaline Phosphatase 161 U/L (46-116); Anion Gap 10 mmol/L (8-16); Aspartate Amino Transferase 23 U/L (15-37); Bilirubin,Total 0.3 mg/dL (0.00-1.00); Blood Urea Nitrogen 14 mg/dL (7-18); CRP 3.5 mg/dL (0.0-0.9); Calcium 8.5 mg/dL (8.5-10.1); Carbon Dioxide 25 mmol/L (21-32); Chloride 103 mmol/L (98-108); Estimated Glomerular Filt Rate > 60; Glucose 164 mg/dL (70-99); Osmolality Calculated 290 mOsm/kg (285-295); Potassium 4.2 mmol/L (3.5-5.1); Sodium 138 mmol/L (136-145)
[2023-10-15 11:40] LABS: Ferritin 119 ng/mL (26-388); Iron 47 ug/dL (65-175); Percent Iron Saturation 21 % (12-57)
== END 2023-10-15 10:21 | disposition home or self-care (01) ==
LOC: CHSHH 10:22
PROVIDERS: Visit Provider Family Medicine
DX: D50.9 Iron deficiency anemia, unspecified (principal); D62 Acute posthemorrhagic anemia; M71.051 Abscess of bursa, right hip
CPT/HCPCS: 36415; 80053; 82728; 83540; 83550; 85025; 86140

== ENCOUNTER 2023-10-22 10:49 | Outpatient (NON) | payer OTHER, SELFPAY ==
[2023-10-22 11:30] LABS: Basophils Absolute Auto 0.02 K/mm3 (0.00-0.10); Basophils Percent Auto 0.4 % (0.0-1.0); Eosinophils Absolute Auto 0.18 K/mm3 (0.02-0.50); Eosinophils Percent Auto 3.4 % (1.0-6.0); Hematocrit 28.1 % (40.0-54.0); Hemoglobin 8.5 g/dL (14.0-18.0); Immature Granulocyte Absolute 0.07 K/mm3 (0.00-0.00); Immature Granulocyte Percent A 1.3 % (0.0-0.0); Lymphocytes Absolute Auto 1.09 K/mm3 (1.10-4.50); Lymphocytes Percent Auto 20.5 % (18.0-42.0); Mean Corpuscular HGB Conc 30.2 g/dL (32-36); Mean Corpuscular Hemoglobin 29.1 pg (27.0-31.0); Mean Corpuscular Volume 96.2 fL (78.0-102.0); Mean Platelet Volume 9.4 fl (8.7-11.0); Monocytes Absolute Auto 0.54 K/mm3 (0.10-0.90); Monocytes Percent Auto 10.1 % (2.0-11.0); Neutrophils Absolute Auto 3.43 K/mm3 (1.70-7.20); Neutrophils Percent Auto 64.3 % (50.0-70.0); Nucleated Red Blood Cells Absolute Auto 0.02 K/mm3 (0.00-0.00); Nucleated Red Blood Cells Perc 0.4 % (0-0.0); Platelet Count Result 199 K/mm3 (150-420); Red Blood Count 2.92 M/mm3 (4.70-6.10); Red Cell Distribution Width 14.9 % (11.6-14.4); White Blood Count 5.3 K/mm3 (4.8-10.8)
[2023-10-22 11:50] LABS: Alanine Aminotransferase 21 U/L (16-63); Albumin Level 2.8 g/dL (3.4-5.0); Alkaline Phosphatase 162 U/L (46-116); Anion Gap 10 mmol/L (8-16); Aspartate Amino Transferase 20 U/L (15-37); Bilirubin,Total 0.3 mg/dL (0.00-1.00); Blood Urea Nitrogen 13 mg/dL (7-18); CRP 1.9 mg/dL (0.0-0.9); Calcium 8.8 mg/dL (8.5-10.1); Carbon Dioxide 27 mmol/L (21-32); Chloride 103 mmol/L (98-108); Estimated Glomerular Filt Rate > 60; Glucose 167 mg/dL (70-99); Osmolality Calculated 294 mOsm/kg (285-295); Sodium 140 mmol/L (136-145); Total Protein 6.8 g/dL (6.4-8.2)
== END 2023-10-22 10:50 | disposition home or self-care (01) ==
LOC: CHSLAB 10:51 → CHSHH 10:53
PROVIDERS: Visit Provider Family Medicine
DX: M71.051 Abscess of bursa, right hip (principal)
CPT/HCPCS: 36415; 80053; 85025; 86140

== ENCOUNTER 2023-10-29 10:14 | Outpatient (NON) | payer OTHER, SELFPAY ==
[2023-10-29 10:38] LABS: Basophils Absolute Auto 0.02 K/mm3 (0.00-0.10); Basophils Percent Auto 0.4 % (0.0-1.0); Eosinophils Absolute Auto 0.16 K/mm3 (0.02-0.50); Eosinophils Percent Auto 2.8 % (1.0-6.0); Hematocrit 29.9 % (40.0-54.0); Immature Granulocyte Absolute 0.05 K/mm3 (0.00-0.00); Immature Granulocyte Percent A 0.9 % (0.0-0.0); Lymphocytes Absolute Auto 1.21 K/mm3 (1.10-4.50); Lymphocytes Percent Auto 21.4 % (18.0-42.0); Mean Corpuscular HGB Conc 30.1 g/dL (32-36); Mean Corpuscular Hemoglobin 28.8 pg (27.0-31.0); Mean Corpuscular Volume 95.5 fL (78.0-102.0); Mean Platelet Volume 9.6 fl (8.7-11.0); Monocytes Absolute Auto 0.58 K/mm3 (0.10-0.90); Monocytes Percent Auto 10.2 % (2.0-11.0); Neutrophils Absolute Auto 3.64 K/mm3 (1.70-7.20); Neutrophils Percent Auto 64.3 % (50.0-70.0); Platelet Count Result 188 K/mm3 (150-420); Red Blood Count 3.13 M/mm3 (4.70-6.10); Red Cell Distribution Width 15.4 % (11.6-14.4); White Blood Count 5.7 K/mm3 (4.8-10.8)
[2023-10-29 10:46] LABS: Alanine Aminotransferase 14 U/L (16-63); Alkaline Phosphatase 139 U/L (46-116); Anion Gap 9 mmol/L (8-16); Aspartate Amino Transferase 20 U/L (15-37); Bilirubin,Total 0.3 mg/dL (0.00-1.00); Blood Urea Nitrogen 16 mg/dL (7-18); CRP 0.9 mg/dL (0.0-0.9); Calcium 8.8 mg/dL (8.5-10.1); Carbon Dioxide 27 mmol/L (21-32); Chloride 105 mmol/L (98-108); Estimated Glomerular Filt Rate > 60; Glucose 125 mg/dL (70-99); Osmolality Calculated 294 mOsm/kg (285-295); Potassium 4.2 mmol/L (3.5-5.1); Sodium 141 mmol/L (136-145); Total Protein 6.9 g/dL (6.4-8.2)
== END 2023-10-29 10:15 | disposition home or self-care (01) ==
LOC: CHSHH 10:16
PROVIDERS: Visit Provider Family Medicine
DX: M71.051 Abscess of bursa, right hip (principal)
CPT/HCPCS: 80053; 85025; 86140

== ENCOUNTER 2023-11-05 08:52 | Outpatient (CLI) | payer OTHER, SELFPAY ==
--- NOTE | 2023-11-05 09:45 | PC.NURSE ---
Patient here for PICC dressing change and lab draw. Patient tolerated dressing change well. Caps and stat lock to PICC site changed. Site flushed well, had good blood return. Labs drawn per order and taken down to lab. Patient left floor ambulatory.
[2023-11-05 10:12] LABS: Basophils Absolute Auto 0.02 K/mm3 (0.00-0.10); Basophils Percent Auto 0.4 % (0.0-1.0); Eosinophils Percent Auto 1.8 % (1.0-6.0); Hematocrit 31.6 % (40.0-54.0); Hemoglobin 9.6 g/dL (14.0-18.0); Immature Granulocyte Absolute 0.04 K/mm3 (0.00-0.00); Immature Granulocyte Percent A 0.7 % (0.0-0.0); Lymphocytes Absolute Auto 1.17 K/mm3 (1.10-4.50); Lymphocytes Percent Auto 20.5 % (18.0-42.0); Mean Corpuscular HGB Conc 30.4 g/dL (32-36); Mean Corpuscular Hemoglobin 28.7 pg (27.0-31.0); Mean Corpuscular Volume 94.6 fL (78.0-102.0); Mean Platelet Volume 9.4 fl (8.7-11.0); Monocytes Absolute Auto 0.52 K/mm3 (0.10-0.90); Monocytes Percent Auto 9.1 % (2.0-11.0); Neutrophils Absolute Auto 3.85 K/mm3 (1.70-7.20); Neutrophils Percent Auto 67.5 % (50.0-70.0); Platelet Count Result 180 K/mm3 (150-420); Red Blood Count 3.34 M/mm3 (4.70-6.10); Red Cell Distribution Width 15.4 % (11.6-14.4); White Blood Count 5.7 K/mm3 (4.8-10.8)
[2023-11-05 10:27] LABS: Alanine Aminotransferase 20 U/L (16-63); Albumin Level 3.3 g/dL (3.4-5.0); Alkaline Phosphatase 138 U/L (46-116); Anion Gap 8 mmol/L (4-12); Aspartate Amino Transferase 23 U/L (15-37); Bilirubin,Total 0.4 mg/dL (0.00-1.00); Blood Urea Nitrogen 17 mg/dL (7-18); CRP 0.8 mg/dL (0.0-0.9); Calcium 8.9 mg/dL (8.5-10.1); Carbon Dioxide 28 mmol/L (21-32); Chloride 105 mmol/L (98-108); Estimated Glomerular Filt Rate > 60; Glucose 150 mg/dL (70-99); Osmolality Calculated 296 mOsm/kg (285-295); Potassium 4.3 mmol/L (3.5-5.1); Sodium 141 mmol/L (136-145)
== END 2023-11-05 08:53 | disposition home or self-care (01) ==
PROVIDERS: PCP Family Medicine; Visit Provider Family Medicine
DX: M00.9 Pyogenic arthritis, unspecified (principal)
CPT/HCPCS: 36415; 36591; 80053; 85025; 86140

== ENCOUNTER 2023-11-12 08:49 | Outpatient (CLI) | payer OTHER, SELFPAY ==
[2023-11-12 09:16] LABS: Basophils Absolute Auto 0.02 K/mm3 (0.00-0.10); Basophils Percent Auto 0.3 % (0.0-1.0); Eosinophils Absolute Auto 0.12 K/mm3 (0.02-0.50); Hematocrit 32.5 % (40.0-54.0); Immature Granulocyte Absolute 0.03 K/mm3 (0.00-0.00); Immature Granulocyte Percent A 0.5 % (0.0-0.0); Lymphocytes Absolute Auto 1.31 K/mm3 (1.10-4.50); Lymphocytes Percent Auto 21.7 % (18.0-42.0); Mean Corpuscular HGB Conc 30.8 g/dL (32-36); Mean Corpuscular Hemoglobin 28.6 pg (27.0-31.0); Mean Corpuscular Volume 92.9 fL (78.0-102.0); Mean Platelet Volume 9.1 fl (8.7-11.0); Monocytes Absolute Auto 0.62 K/mm3 (0.10-0.90); Monocytes Percent Auto 10.2 % (2.0-11.0); Neutrophils Absolute Auto 3.95 K/mm3 (1.70-7.20); Neutrophils Percent Auto 65.3 % (50.0-70.0); Platelet Count Result 165 K/mm3 (150-420); Red Cell Distribution Width 15.1 % (11.6-14.4); White Blood Count 6.1 K/mm3 (4.8-10.8)
--- NOTE | 2023-11-12 09:46 | PC.NURSE ---
Patient arrived to floor walking without difficulty. Blood drawn from picc line 10cc wasted prior to draw. Lab came with correct tubes. PICC line in left upper arm dressing changed. PICC was in place and patent. Flushed PICC with 10cc of saline without difficulty. Patient walked to elevator and left without difficulty
[2023-11-12 10:02] LABS: Alanine Aminotransferase 13 U/L (16-63); Albumin Level 3.3 g/dL (3.4-5.0); Alkaline Phosphatase 137 U/L (46-116); Anion Gap 12 mmol/L (4-12); Aspartate Amino Transferase 26 U/L (15-37); Bilirubin,Total 0.4 mg/dL (0.00-1.00); Blood Urea Nitrogen 12 mg/dL (7-18); CRP 1.4 mg/dL (0.0-0.9); Calcium 8.8 mg/dL (8.5-10.1); Carbon Dioxide 25 mmol/L (21-32); Chloride 103 mmol/L (98-108); Estimated Glomerular Filt Rate > 60; Glucose 165 mg/dL (70-99); Osmolality Calculated 293 mOsm/kg (285-295); Sodium 140 mmol/L (136-145); Total Protein 7.1 g/dL (6.4-8.2)
== END 2023-11-12 08:50 | disposition home or self-care (01) ==
LOC: CHSTREATRM 08:52
PROVIDERS: PCP Family Medicine; Visit Provider Family Medicine
DX: M71.051 Abscess of bursa, right hip (principal); M00.9 Pyogenic arthritis, unspecified
CPT/HCPCS: 36415; 80053; 85025; 86140

== ENCOUNTER 2023-11-12 12:52 | Outpatient (RCR) | payer OTHER, SELFPAY ==
--- NOTE | 2023-10-17 06:54 | PCPTNOTE ---
mr. de jesus cancelled his therapy evaluation yesterday due to still being under the care of home health.
--- NOTE | 2023-11-12 14:28 | OPREHPOC ---
Outpatient Therapy Plan of Care This is a Multidisciplinary Plan of Care that may contain components documented by all disciplines (PT, OT, and ST.) PT Problem 1 PT Problem #1 Knowledge Deficit PT Goal 1 Goal Patient to demonstrate to independence with HEP Target Visit 5 PT Problem 2 PT Problem #2 Pain PT Goal 1 Goal 1. Patient to report highest pain at 4/10 2. Patient to report no pain when standing up from a chair Target Visit 10 PT Problem 3 PT Problem #3 Impaired Strength PT Goal 1 Goal Patient to demonstrate 4+/5 strength of the R hip to improve ability to get into car without difficulty Target Visit 10 PT Problem 4 PT Problem #4 Impaired Functional Mobil PT Goal 1 Goal 1. Patient to demonstrate less than 30% disability on LEFS 2. Patient to ambulate 1000' during 6 min walk test with equal stance time on B LE Target Visit 10
--- NOTE | 2023-11-12 14:28 | PTOPEVAL1 ---
Assessment and note entered by Jane Hoffman DPT Evaluation Information Assessment Status Evaluation Diagnosis R hip pain Onset 10/12/23 Subjective Information Patient reports he underwent a R hip previous in Aug due to infection in the hip. He reports that the rods were not replaced but the joint surfaces were. He reports that overall his R LE feels weak. He has difficulty lifting his R LE up. He was difficulty with getting up out of a chair, lifting his leg into the car and ambulating prolonged distances. He has had a PICC line since and is hoping to get that removed on 11/15/23. He reports he has a trip to [place] planned. RTMD ~ 2 months. He reports no restrictions at this time. Reported Pain Level Pain Score 3,2: Self Report Assessment PT Clinical Summary Mr. Rutledge is a 58 year old male who presents to PT with R hip pain follow R ALIREZA revision. He demonstrates impaired gait mechanics, decreased R LE strength and increased R hip pain impairing his ability to get up out of a chair, lift his leg into the car and ambulate prolonged distances. He would benefit from skilled PT to address impairments and return to PLOF. Plan of Care Interventions Electrical Stimulation,Gait Training,Hot Pack/Cold Pack,Manual Therapy,Neuro Re-education,Patient/ Caregiver Educati,Therapeutic Activities, Therapeutic Exercise PT Services Indicated Yes Treatment Frequency and 2x weekly for 10 visits Duration These treatments will address the objective and functional deficits as defined above. The patient will be advanced safely and appropriately in order for the patient to progress towards his/her prior level of function. Additional exercises will be introduced and as well as a comprehensive home exercise program upon discharge, if needed, ?to ensure carryover of functional gains achieved in the clinic. This treatment plan has been reviewed and agreement upon by the patient.
--- NOTE | 2024-04-01 08:12 | PCPTNOTE ---
patient discharged due to going to [place] and not returning for follow ups
--- NOTE | 2024-04-01 08:13 | PCPTNOTE ---
patient discharged due to functional decline
== END 2023-11-13 23:59 | disposition home or self-care (01) ==
LOC: CHSPT 12:52
PROVIDERS: PCP Family Medicine; Visit Provider Family Medicine
DX: M00.851 Arthritis due to other bacteria, right hip (principal)
CPT/HCPCS: 97110; 97161

== ENCOUNTER 2023-11-16 08:58 | Outpatient (CLI) | payer OTHER, SELFPAY ==
[2023-11-16 09:22] VITALS: BMI 36.8
--- NOTE | 2023-11-16 09:37 | PC.NURSE ---
0927 Patient ambulated to room without difficulty. PICC line blood drawn without difficulty 10cc waste with lab up here to take blood to lab. 929 PICC line pulled intact. Dressing applied. Instructed patient that he will have to remain in the room for 30 minutes then will be able to leave once he notifies nursing.
--- NOTE | 2023-11-16 10:08 | PC.NURSE ---
1005 Patient dressing dry and intact. Pt states he is feeling fine. Instructions given to keep dressing on for 24 hours and then to wash area with soap and water. Monitor for signs of any infection. Patient ambulated to elevator without difficulty.
[2023-11-16 11:32] LABS: Cholesterol 136 mg/dL (0-200); HDL Direct 50 mg/dL (40-60); LDL Cholesterol Calculated 59 mg/dL (<130); Thyroid Stimulating Hormone 1.07 uIU/mL (0.36-3.74); Triglycerides 136 mg/dL (0-150); Vitamin B12 316 pg/mL (193-986)
[2023-11-19 18:47] LABS: Red Blood Cell Folate 723 ng/mL RBC (>280)
[2023-11-20 09:38] LABS: Vitamin D 1,25 (OH)2 Total 47 pg/mL (18-72); Vitamin D2 1,25 (OH)2 <8 pg/mL; Vitamin D3 1,25 (OH)2 47 pg/mL
== END 2023-11-16 08:59 | disposition home or self-care (01) ==
LOC: CHSTREATRM 09:00
PROVIDERS: PCP Family Medicine; Visit Provider Psychiatry & Neurology Neurology
DX: I63.9 Cerebral infarction, unspecified (principal); E55.9 Vitamin D deficiency, unspecified
CPT/HCPCS: 36415; 80061; 82607; 82652; 82747; 84443; 99211; G0463

== ENCOUNTER 2024-07-08 09:41 | Outpatient (CLI) | payer MEDICARE, OTHER, SELFPAY ==
[2024-07-08 10:00] LABS: Basophils Absolute Auto 0.04 K/mm3 (0.00-0.10); Basophils Percent Auto 0.5 % (0.0-1.0); Eosinophils Absolute Auto 0.19 K/mm3 (0.02-0.50); Eosinophils Percent Auto 2.6 % (1.0-6.0); Hematocrit 39.9 % (40.0-54.0); Hemoglobin 13.9 g/dL (14.0-18.0); Immature Granulocyte Absolute 0.05 K/mm3 (0.00-0.00); Immature Granulocyte Percent A 0.7 % (0.0-0.0); Lymphocytes Absolute Auto 1.32 K/mm3 (1.10-4.50); Mean Corpuscular HGB Conc 34.8 g/dL (32-36); Mean Corpuscular Volume 91.7 fL (78.0-102.0); Mean Platelet Volume 8.9 fl (8.7-11.0); Monocytes Absolute Auto 0.72 K/mm3 (0.10-0.90); Monocytes Percent Auto 9.8 % (2.0-11.0); Neutrophils Absolute Auto 5.03 K/mm3 (1.70-7.20); Neutrophils Percent Auto 68.4 % (50.0-70.0); Platelet Count Result 154 K/mm3 (150-420); Red Blood Count 4.35 M/mm3 (4.70-6.10); Red Cell Distribution Width 12.9 % (11.6-14.4); White Blood Count 7.4 K/mm3 (4.8-10.8)
[2024-07-08 10:56] LABS: Alanine Aminotransferase 33 U/L (16-63); Albumin Level 3.7 g/dL (3.4-5.0); Alkaline Phosphatase 104 U/L (46-116); Anion Gap 7 mmol/L (4-12); Aspartate Amino Transferase 22 U/L (15-37); Bilirubin,Total 0.8 mg/dL (0.00-1.00); Blood Urea Nitrogen 16 mg/dL (7-18); Carbon Dioxide 29 mmol/L (21-32); Chloride 103 mmol/L (98-108); Cholesterol 160 mg/dL (0-200); Estimated Glomerular Filt Rate > 60; Glucose 108 mg/dL (70-99); HDL Direct 53 mg/dL (40-60); LDL Cholesterol Calculated 79 mg/dL (<130); Osmolality Calculated 290 mOsm/kg (285-295); Potassium 4.4 mmol/L (3.5-5.1); Sodium 139 mmol/L (136-145); Triglycerides 142 mg/dL (0-150)
== END 2024-07-08 09:42 | disposition home or self-care (01) ==
LOC: CHSLAB 09:50
PROVIDERS: PCP Family Medicine; Visit Provider Dermatology
DX: Z79.899 Other long term (current) drug therapy (principal)
CPT/HCPCS: 36415; 80053; 80061; 85025

== ENCOUNTER 2024-07-21 09:07 | Outpatient (CLI) | payer MEDICARE, OTHER, SELFPAY ==
[2024-07-23 12:17] LABS: NIL 0.02 IU/mL; Quantiferon TB Plus, 1T NEGATIVE (NEGATIVE); TB2-NIL 0.01 IU/mL
--- OUTSIDE RECORDS SUMMARY | 2024-07-28 00:56 | XMS_ITS | Encounter Summary ---
Author Organization [facility] Address [address] [facility] [place] [address] Care Team Providers Care Tax Compliance Representative Name Role Phone Faisal Richardson DO Primary Care Provider Encounter Details Date Type Department Care Team (Late st Contact Info) Description 01/15/2024 Orders Only [facility] - Orthopedic Surgery [address] [place] [address] Torrey Lafleur MD [address] [facility] [address] [place] [address] S/P revision of total hip Social History Tobacco Use Types Packs/Day Years Used Date Smoking Tobacco: Never Smokeless Tobacco: Never Alcohol Use Standard Drinks/Week Comments Not Currently 0 (1 standard drink = 0.6 oz pur e alcohol) AUDIT-C Answer Date Recorded Q1: How often do you have a drink containing alcohol? Never 10/17/2023 Q2: How many drinks containi ng alcohol do you have on a typical day when you are drinking? Patient does not drink Q3: How often do you have si x or more drinks on one occasion? Never 10/17/2023 Overall Financial Resource Strain (CARDIA) Answe r Date Recorded How hard is it for you to pa y for the very basics like food, housing, medical care, and heating? Not hard at all 10/17/2023 PHQ-2 Answer Date Recorded Patient Health Questionnaire-2 Score 4 01/15/2024 [facility] [place] Occup[facility] - Occupational Stress Questionnaire Answer Date Recorded Do you feel stress - tense, restless, nervous, or anxious, or unable to sleep at night because your mind is troubled all the time - these days? Not at all 10/17/2023 Hunger Vital Sign Answer Date Recorded Within the past 12 months, y ou worried that your food would run out before you got the money to buy more. Never true 10/17/19 24 Within the past 12 months, t he food you bought just didn't last and you didn't have money to get more. Never true 10/17/2023 PRAPARE - Transportation Answer Date Re corded In the past 12 months, has l ack of transportation kept you from medical appointments or from getting medications? No 10/04 In the past 12 months, has l ack of transportation kept you from meetings, work, or from getting things needed for daily living? No 10/17/2023 Housing Stability Vital Sign Answer Chente e Recorded In the last 12 months, was t here a time when you were not able to pay the mortgage or rent on time? No 10/17/2023 In the last 12 months, how many places have you lived? 1 10/17/2023 In the last 12 months, was t here a time when you did not have a steady place to sleep or slept in a [place] [facility] [place] (including now)? No 10/17/2023 Sex and Gender Information Value Date Recorded Sex Assigned at Not on file Gender Identity Not on file Sexual Orientation Not on file documented as of this encounter Functional Status Functional Status Response Date of Assess ment Is person deaf or have serious hearing difficult y? No 10/17/2023 Is person blind or have serious difficulty seein g? No 10/17/2023 Does person have serious dif ficulty walking/climbing stairs? No 10/17/2023 Does person have difficulty dressing/bathing? Ye s 10/17/2023 Does person have difficulty doing errands alone? Yes 10/17/2023 Cognitive Status Response Date of Assessm ent Does person have difficulty concentrating/remembering/making decisions? No 10/17/2023 documented as of this encounter Plan of Treatment Upcoming Encounters Date Type Department Care Team (Late st Contact Info) Description 01/20/2025 10:00 AM CDT Office Visit [facility] - Orthopedic Surgery [address] [place] [address] Torrey Lafleur MD [address] [place] [address] documented as of this encounter Results * XR PELVIS W RIGHT HIP 2VW (01/16/2024 9:39 AM CDT) Anatomical Region Laterality Modality Pelvis Radiographic Sabi ging 01/16/2024 11:0 3 AM CDT Narrative 01/16/2024 11:05 AM CDT Procedure: XR PELVIS W RIGHT HIP 2VW ??Exam Date: ??01/16/2024 9:39 AM ?? Location: ??[facility] Indication: Z96.649: Presence of unspecified artificial hip joint Findings/impression: The study is compared to the exam from October 2023. Again noted are changes of right total hip replacement. The prosthesis appears in good position. There is a long intramedullary component within the femur. Dystrophic calcification is again seen about the hip. Pubic rami and sacroiliac joints are intact. Again noted are mild degenerative changes of the left hip with some mild joint space narrowing and spurring. > Interpreting Provider: Viral Peña MD on 01/16/2024 11:05 AM Procedure Note Viral Peña MD - 01/16/2024 Procedure: XR PELVIS W RIGHT HIP 2VW Exam Date: 01/16/2024 9:39 AM Location: [facility] Indication: Z96.649: Presence of unspecified artificial hip joint Findings/impression: The study is compared to the exam from October 2023. Again noted arechanges of right total hip replacement. The prosthesis appears in good position. There is a long intramedullary component within the femur. Dystrophic calcification is again seen about the hip. Pubic rami and sacroiliac joints are intact. Again noted are mild degenerative changes of the left hip with some mild joint spacenarrowing and spurring. > Interpreting Provider: Viral Peña MD on 01/16/2024 11:05 AM Torrey Lafleur MD DIAGNOSTIC IMAGING ORDERABLES documented in this encounter Visit Diagnoses Diagnosis S/P revision of total hip- Primary Hip joint replacement by other means S/P revision of total hip Hip joint replacement by other means documented in this encounter Care Teams Tax Compliance Representative Relationship Specialty Start Date End Date Faisal Richardson DO [address] [place] [address] PCP - General Family Medicine 11/27/22 documented as of this encounter
--- OUTSIDE RECORDS SUMMARY | 2024-07-28 00:56 | XMS_ITS | Encounter Summary ---
Author Organization [facility] Address [address] [facility] [place] [address] Care Team Providers Care Health Care Liaison Name Role Phone Faisal Richardson DO Primary Care Provider [phone] Encounter Details Date Type Department Care Team (Latest Contact Info) Description 10/24/2023 11:01 AM CDT - 10/24/2023 11:59 PM CDT Hospital Encounter [facility] - [facility] [address], [address] [place] [phone] Torrey Lafleur MD [address] [place], [place] [id number] Discharge Disposition: Home or Self Care Social History Tobacco Use Types Packs/Day Years [...] and heating? Not hard at all 10/17/2023 [facility] [place] of Occupat ional Health - Occupational Stress [...] place to sleep or slept in a residential (including now)? No 10/17/2023 Sex and Gender [...] No 10/17/2023 documented as of this encounter Medications at Time of Discharge Medication Sig Dispensed Refills Start Date End Date acetaminophen (Tylenol) 325 MG tablet Take 2 (two) tablets by mouth every 4 hours as needed for Fever (For temperature GREATER than 101 ) Maximum allowable Acetaminophen amount = 4 Grams (4000 mg) / 24 hours. 10/17/2023 amLODIPine (Norvasc) 10 MG tablet Take 1 (one) tablet by mouth once daily 30 tablet 10/05/2023 apixaban (Eliquis) 2.5 MG tablet Take 1 (one) tablet by mouth 2 times daily for 30 days 60 tablet 10/04/2023 Bacillus Coagulans-Inulin (Probiotic) 1-250 BILLION-MG CAPS buPROPion XL 24hr (Wellbutrin-XL) 300 MG tablet 12/28/2022 carvedilol (Coreg) 25 MG tablet Take 1 (one) tablet by mouth 2 times daily 09/28/2021 ceFAZolin 2 g in 0.9% NaCl IV 0.9 % 50 mL IVPB 2 (two) g by Intravenous route every 8 hours 10/04/2023 clopidogrel (plaVIX) 75 MG tablet Take 1 (one) tablet by mouth once daily Start taking 12/19/22. 12/19/2022 cyclobenzaprine (Flexeril) 10 MG tablet Take 1 (one) tablet by mouth 2 times daily 03/05/2022 diclofenac sodium (Voltaren) 1 % gel Apply 2 (two) g to affected area 4 times daily 10/17/2023 Docusate Sodium (DSS) 100 MG Take 100 mg by mouth 2 times daily 05/03/2022 dulaglutide (Trulicity) 1.5 MG/0.5ML injection 10/17/2021 ergocalciferol (Drisdol) 1.25 MG (69649 UT) capsule Take 1 (one) capsule by mouth 05/02/2022 ferrous sulfate 325 (65 FE) MG tablet Take 1 (one) tablet by mouth once daily metFORMIN (Glucophage) 1000 MG tablet Take 1 (one) tablet by mouth 2 times daily 03/05/2022 Multiple Vitamins-Minerals (One-A-Day Mens Health Formula) TABS 08/06/2021 oxyCODONE-acetaminoph en (Percocet) 5-325 MG tabletIndications:Inf ection of prosthetic joint, initial encounter (HCC) Take 1 (one) tablet by mouth every 4 hours as needed for Pain 25 tablet 10/04/2023 pantoprazole EC (Protonix) 40 MG tabletIndications:Gas tric Ulcer Take 1 (one) tablet by mouth once daily Reasons: Stomach Ulcer 30 tablet 2 12/16/2022 pregabalin (Lyrica) 50 MG capsule Take 1 (one) capsule by mouth 2 times daily 70 capsule 12/09/2022 rosuvastatin (Crestor) 20 MG tablet Take 2 (two) tablets by mouth every morning 01/29/2022 sertraline (Zoloft) 50 MG tablet Take 1 (one) tablet by mouth once daily documented as of this encounter Plan of Treatment Upcoming Encounters Date Type Department Care Team (Late st Contact Info) Description 01/20/2025 10:00 AM CDT Office Visit [facility] - Orthopedic Surgery [address] [place] [address] Torrey Lafleur MD [address] [address] documented as of this encounter Procedures Procedure Name Priority Date/Time Associated Diagnosis Comments XR PELVIS W RIGHT HIP 2VW Routine 10/24/2023 11:08 AM CDT S/P revision of total hip documented in this encounter Results * XR PELVIS W RIGHT HIP 2VW (10/24/2023 11:08 AM CDT) Anatomical Region Laterality Modality Pelvis Radiographic Sabi ging 10/24/2023 11:1 6 AM CDT Narrative 10/24/2023 11:17 AM CDT Procedure: XR PELVIS W RIGHT HIP 2VW ??Exam Date: ??10/24/2023 11:08 AM ?? Location: ??[facility] Indication: Z96.649: Presence of unspecified artificial hip joint Findings/impression: The study is compared to the exam from 10/15/2023. Total hip replacement on the right is again noted. The prosthesis appears in good position. There is no fracture or loosening. The pubic rami are intact. The sacroiliac joints unremarkable. There are mild degenerative changes of the left hip. > Interpreting Provider: Viral Peña MD on 10/24/2023 11:17 AM Procedure Note Viral Peña MD - 10/24/2023 Procedure: XR PELVIS W RIGHT HIP 2VW Exam Date: 10/24/2023 11:08 AM Location: [facility] Indication: Z96.649: Presence of unspecified artificial hip joint Findings/impression: The study is compared to the exam from 10/15/2023. Total hip replacementon the right is again noted. The prosthesis appears in good position. Thereis no fracture or loosening. The pubic rami are intact. The sacroiliac joints unremarkable. There are mild degenerative changes of the left hip. > Interpreting Provider: Viral Peña MD on 10/24/2023 11:17 AM Torrey Lafleur MD DIAGNOSTIC IMAGING ORDERABLES documented in this encounter Visit Diagnoses Diagnosis S/P revision of total hip Hip joint replacement by other means documented in this encounter Care Teams Health Care Liaison Relationship Specialty Start Date End Date Faisal Richardson DO [address] [place] [address] PCP - General Family Medicine 11/27/22 documented as of this encounter
--- OUTSIDE RECORDS SUMMARY | 2024-07-28 00:56 | XMS_ITS | Encounter Summary ---
Author Organization [facility] Address [address] [facility] [place] [address] Care Team Providers Care Forest Engineer Name Role Phone Faisal Richardson DO Primary Care Provider [phone] Reason for Visit * Reason Comments Follow-up Follow up right hip 10/02/23 Encounter Details Date Type Department Care Team (Late st Contact Info) Description 01/16/2024 10:15 AM CDT Office Visit [facility] - Orthopedic Surgery [address] [place] [phone] Torrey Lafleur MD [address] [address] S/P revision of total hip (Primary Dx) Social History Tobacco Use Types Packs/Day Years [...] Recorded Patient Health Questionnaire-2 Score 4 01/15/2024 [facility] ional [facility] - Occupational Stress Questionnaire Answer Date Recorded [...] place to sleep or slept in a alf (including now)? No 10/17/2023 Sex and Gender [...] No 10/17/2023 documented as of this encounter Progress Notes * Torrey Lafleur MD - 01/16/2024 10:15 AM CDT Patient returns for follow-up almost 4 months after revision right total hip arthroplasty for recurrent infection. Overall patient is doing well. Denies fevers chills or wound problems. No mechanicalsymptoms or dislocations. Continues to take blood thinners. Continuing home therapy. Still on PO ant ibiotics. Preop pain is much improved but he still has some thigh pain when he first gets up which has not changed and did not get worse with his infection. Current Outpatient Medications on File Prior to Visit Medication Sig Dispense Refill acetaminophen (Tylenol) 325 MG tablet Take 2 (two) tablets by mouth every 4 hours as needed for Fever (For temperature GREATER than 101 ) Maximum allowable Acetaminophen amount = 4 Grams (4000 mg) / 24 hours. amLODIPine (Norvasc) 10 MG tablet Take 1 (one) tablet by mouth once daily 30 tablet 0 apixaban (Eliquis) 2.5 MG tablet Take 1 (one) tablet by mouth 2 times daily for 30 days 60 tablet 0 Bacillus Coagulans-Inulin (Probiotic) 1-250 BILLION-MG CAPS buPROPion XL 24hr (Wellbutrin-XL) 300 MG tablet carvedilol (Coreg) 25 MG tablet Take 1 (one) tablet by mouth 2 times daily ceFAZolin 2 g in 0.9% NaCl IV 0.9 % 50 mL IVPB 2 (two) g by Intravenous route every 8 hours clopidogrel (plaVIX) 75 MG tablet Take 1 (one) tablet by mouth once daily Start taking 12/19/22. cyclobenzaprine (Flexeril) 10 MG tablet Take 1 (one) tablet by mouth 2 times daily diclofenac sodium (Voltaren) 1 % gel Apply 2 (two) g to affected area 4 times daily Docusate Sodium (DSS) 100 MG Take 100 mg by mouth 2 times daily dulaglutide (Trulicity) 1.5 MG/0.5ML injection ergocalciferol (Drisdol) 1.25 MG (11538 UT) capsule Take 1 (one) capsule by mouth ferrous sulfate 325 (65 FE) MG tablet Take 1 (one) tablet by mouth once daily metFORMIN (Glucophage) 1000 MG tablet Take 1 (one) tablet by mouth 2 times daily Multiple Vitamins-Minerals (One-A-Day Mens Health Formula) TABS oxyCODONE-acetaminophen (Percocet) 5-325 MG tablet Take 1 (one) tablet by mouth every 4 hours as needed for Pain 25 tablet 0 pantoprazole EC (Protonix) 40 MG tablet Take 1 (one) tablet by mouth once daily Reasons: Stomach Ulcer 30 tablet 2 pregabalin (Lyrica) 50 MG capsule Take 1 (one) capsule by mouth 2 times daily 70 capsule 0 rosuvastatin (Crestor) 20 MG tablet Take 2 (two) tablets by mouth every morning sertraline (Zoloft) 50 MG tablet Take 1 (one) tablet by mouth once daily No current facility-administered medications on file prior to visit. Past Medical History: Diagnosis Date Aortic stenosis mod-sev on 2022 echo CAD (coronary artery disease) High blood pressure LVH (left ventricular hypertrophy) Mixed hyperlipidemia Restless leg syndrome S/P PICC central line placement 10/03/2023 R [facility] S/P PICC central line placement 10/15/2023 L Basilic Vein PICC Placement by [facility] RN Sleep apnea uses cpap Stroke ([facility]) 2021 balance residual Type 2 diabetes mellitus without complications ([facility]) Past Surgical History: Procedure Laterality Date Appendectomy Cardiac Catherization 2017 no intervetion COLONOSCOPY DEBRIDEMENT Right 09/27/2023 Right; REPEAT IRRIGATION AND DEBRIDEMENT RIGHT HIP, REMOVAL OF ANTIBIOTIC BEADS x20, PLACEMENT OF ANTIBIOTIC BEADS x20, WOUND VAC EXCHANGE RIGHT HIP DEBRIDEMENT Right 10/02/2023 Right; IRRIGATION AND DEBRIDEMENT HIP -- RIGHT HIP, DELAYED PRIMARY CLOSURE OF COMPLEX WOUND, REMOVAL OF ANTIBIOTIC BEADS, REVISION OF BOTH HIP COMPONENTS -- RIGHT HIP, WOUND VAC APPLICATION EGD ENDOSCOPY, UPPER N/A 12/15/2022 N/A; ESOPHAGOGASTRODUODENOSCOPY (EGD) DIAGNOSTIC ENDOSCOPY, UPPER 12/15/2022 ESOPHAGOGASTRODUODENOSCOPY (EGD) BIOPSY GENERAL SURGERY PROCEDURE Right 12/08/2022 Right; PREVENA/ WOUND VAC APPLICATION RIGHT HIP HIP ARTHROPLASTY, REVISION Right 12/08/2022 Right; REVISION RIGHT TOTAL HIP ARTHROPLASTY BOTH COMPONENTS, REMOVAL OF ANTIBIOTIC SPCER RIGHT HIP HIP ARTHROPLASTY, TOTAL Right MINOR PROCEDURE/DIAGNOSTIC EXAM Right 09/24/2023 Right; ASPIRATION RIGHT HIP UNDER FLUOROSCOPY, FLUOROSCOPY FOR NEEDLE PLACEMENT RIGHT HIP, ARTHROTOMY WITH IRRIGATION AND DEBRIDEMENT RIGHT HIP, REMOVAL OF HARDWARE RIGHT HIP, PLACEMENT OF ANTIBIOTICBEADS RIGHT HIP X20, WOUND VAC PLACEMENT RIGHT HIP OTHER SURGERY Right 08/30/2022 removed hip and placed antibiotic spacer Rotator Cuff Repair Right SHOULDER ARTHROPLASTY, TOTAL Left Social History Occupational History Not on file Tobacco Use Smoking status: Never Smokeless tobacco: Never Vaping Use Vaping Use: Never used Substance and Sexual Activity Alcohol use: Not Currently Drug use: No Sexual activity: Yes Partners: Female Family History Problem Relation Name Age of Onset Diabetes Mother Status: Alive Hypertension Mother Cancer Father rectal; Status: Review of Systems Constitutional: Negative. Respiratory: Negative for shortness of breath. Cardiovascular: Negative for claudication and leg swelling. Musculoskeletal: Negative for falls and joint pain. Skin: Negative. Neurological: Negative for focal weakness. All other systems reviewed and are negative. Physical exam: Patient is awake and alert BMI is 37 Facial expressions are appropriate Pt is cooperative with exam Examination of the right hip reveals flexion to 90, abduction 30, adduction 20, internal rotation of 20, external rotation of 20 with no pain. Distally patient can dorsiflex and plantarflex both ankles and toes without difficulty. Limb lengths are clinically equal. X-rays: X-rays were reviewed and my independent interpretation/assessment of the AP pelvis and AP and lateral of the right hip reveals a well aligned revision hip arthroplasty without apparent complication Assessment: Status post revision right hip arthroplasty with irrigation and debridement for recurrent periprosthetic infection doing well Plan: We discussed hip precautions at length. We discussed antibiotic prophylaxis before invasive procedures. Continue antibiotics per Infectious Disease chronically. Follow-up in 12 months. Patient understood the treatment plan and all questions were answered This dictation was performed with the use of Ubitric[employer] voice recognition and errors with transcriptionmay occur. Torrey Lafleur MD documented in this encounter Plan of Treatment Upcoming Encounters Date Type Department Care Team (Late st Contact Info) Description 01/20/2025 10:00 AM CDT Office Visit [facility] - Orthopedic Surgery [address] [place] [address] Torrey Lafleur MD [address] [facility] [address] [place] [address] documented as of this encounter Visit Diagnoses Diagnosis S/P revision of total hip- Primary Hip joint replacement by other means documented in this encounter Care Teams Forest Engineer Relationship Specialty Start Date End Date Faisal Richardson DO [address] [place] [address] PCP - General Family Medicine 11/27/22 documented as of this encounter
--- OUTSIDE RECORDS SUMMARY | 2024-07-28 00:56 | XMS_ITS | Referral Summary ---
Author Organization [facility] [place] Address [address] [facility] [place] [address] Care Team Providers Care Cupola Tender Name Role Phone Faisal Richardson DO Primary Care Provider [phone] Source Comments [facility],non-owned Affiliates and Associated Physician Practices is amultiple site organization consisting of ambulatory clinics and hospital sitesin [place], [place], [place] and [place]. This disclosure is being madepursuant to the Care Everywhere program and may not contain all information available regarding this patient. Last updated 18.[facility] [place] Allergies Active Allergy Reactions Criticality Noted Date Comments Penicillins Angioedema High 07/14/2014 Medications * Be aware that medications may not be up to date on this document. Alwaysverify current medications with the patient. Medication Sig Dispensed Refills Start Date End Date Status carvedilol (Coreg) 25 MG tablet Take 1 (one) tablet by mouth 2 times daily 09/28/2021 Active cyclobenzaprine (Flexeril) 10 MG tablet Take 1 (one) tablet by mouth 2 times daily 03/05/2022 Active Docusate Sodium (DSS) 100 MG Take 100 mg by mouth 2 times daily 05/03/2022 Active dulaglutide (Trulicity) 1.5 MG/0.5ML injection 10/17/2021 Active ergocalciferol (Drisdol) 1.25 MG (00870 UT) capsule Take 1 (one) capsule by mouth 05/02/2022 Active metFORMIN (Glucophage) 1000 MG tablet Take 1 (one) tablet by mouth 2 times daily 03/05/2022 Active Multiple Vitamins-Minerals (One-A-Day Mens Health Formula) TABS 08/06/2021 Active rosuvastatin (Crestor) 20 MG tablet Take 2 (two) tablets by mouth every morning 01/29/2022 Active ferrous sulfate 325 (65 FE) MG tablet Take 1 (one) tablet by mouth once daily Active Bacillus Coagulans-Inulin (Probiotic) 1-250 BILLION-MG CAPS Active sertraline (Zoloft) 50 MG tablet Take 1 (one) tablet by mouth once daily Active pregabalin (Lyrica) 50 MG capsule Take 1 (one) capsule by mouth 2 times daily 70 capsule 12/09/2022 Active pantoprazole EC (Protonix) 40 MG tabletIndications :Gastric Ulcer Take 1 (one) tablet by mouth once daily Reasons: Stomach Ulcer 30 tablet 2 12/16/2022 Active clopidogrel (plaVIX) 75 MG tablet Take 1 (one) tablet by mouth once daily Start taking 12/19/22. 12/19/2022 Active buPROPion XL 24hr (Wellbutrin-XL) 300 MG tablet 12/28/2022 Active oxyCODONE-acetami nophen (Percocet) 5-325 MG tabletIndications :Infection of prosthetic joint, initial encounter (HCC) Take 1 (one) tablet by mouth every 4 hours as needed for Pain 25 tablet 10/04/2023 Active amLODIPine (Norvasc) 10 MG tablet Take 1 (one) tablet by mouth once daily 30 tablet 10/05/2023 Active ceFAZolin 2 g in 0.9% NaCl IV 0.9 % 50 mL IVPB 2 (two) g by Intravenous route every 8 hours 10/04/2023 Active apixaban (Eliquis) 2.5 MG tablet Take 1 (one) tablet by mouth 2 times daily for 30 days 60 tablet 10/04/2023 Active acetaminophen (Tylenol) 325 MG tablet Take 2 (two) tablets by mouth every 4 hours as needed for Fever (For temperature GREATER than 101 ) Maximum allowable Acetaminophen amount = 4 Grams (4000 mg) / 24 hours. 10/17/2023 Active diclofenac sodium (Voltaren) 1 % gel Apply 2 (two) g to affected area 4 times daily 10/17/2023 Active Active Problems Problem Noted Date Diagnosed Date Right hip pain 10/15/2023 Inability to ambulate due to hip 09/24/2023 Pain of right hip 09/24/2023 Gastrointestinal hemorrhage, unspecified gastrointestinal hemorrhage type 12/14/2022 S/P total right hip arthroplasty 12/08/2022 Closed fracture of nasal bones 11/21/2022 Closed left maxillary fracture 11/21/2022 H/O ischemic vertebrobasilar artery brainstem [facility] 11/21/2022 Moderate aortic stenosis 11/21/2022 Neuropathy 11/21/2022 Tinnitus 11/21/2022 Mild coronary artery disease 04/16/2020 AVD (aortic valve disease) 11/24/2017 GI (gastrointestinal bleed) 07/14/2014 Immunizations Name Administration Dates Next Due TDAP (7yrs+) 10/25/2021 Social History Tobacco Use Types Packs/Day Years Used Date Smoking Tobacco: Never Smokeless Tobacco: Never Tobacco Cessation:Counseling Given: Not Answered Alcohol Use Standard Drinks/Week Comments Not Currently [...] Recorded Patient Health Questionnaire-2 Score 4 01/15/2024 [facility] Occupat ional [facility] - Occupational Stress [...] place to sleep or slept in a assisted (including now)? No 10/17/2023 Sex and Gender Information Value Date Recorded Sex Assigned at Not on file Gender Identity Not on file Sexual Orientation Not on file Last Filed Vital Signs Vital Sign Reading Time Taken Comments Blood Pressure 115/60 10/17/2023 8:28 AM CDT Pulse 76 10/17/2023 8:28 AM CDT Temperature 36.8 ??C (98.3 ??F) 10/17/2023 8:28 AM CD T Respiratory Rate 17 10/17/2023 8:28 AM CDT Oxygen Saturation 95% 10/17/2023 8:28 AM CDT Inhaled Oxygen Concentration - - Weight 123.5 kg (272 lb 4.8 oz) 10/15/2023 9:20 PM CDT Height 182.9 cm (6') 10/15/2023 9:20 PM CDT Body Mass Index 36.93 10/15/2023 9:20 PM CDT Functional Status Functional Status Response Date of [...] person have difficulty concentrating/remembering/making decisions? No 10/17/2023 Plan of Treatment Upcoming Encounters Date Type Department Care Team (Late st Contact Info) Description 01/20/2025 10:00 AM CDT Office Visit [facility] - Orthopedic Surgery [address] [place] [phone] Torrey Lafleur MD [address] [facility] [address] [place] [address] Medical Devices Implanted Type Area Cloud Infrastructure Architect Device Identifier Shelf Expiration Date Model / Serial / Lot Cable Orth Cocr 2mm 75mm Troch Clp Implanted:Qty : 1 on 12/08/2022 by Torrey Lafleur MD at [facility] Cable Right: Femur [employer] 06/07/2032 [id number] / / [id number] Screw 6.5mm 25mm Hip Actb Canc Sphrcl Implanted:Qty : 1 on 12/08/2022 by Torrey Lafleur MD at [facility] Screw Right: Hip [employer] 02/09/2032 [id number] / / [id number] Shell Actb 62mm Hip 3 Hl Por R3 Implanted:Qty : 1 on 12/08/2022 by Torrey Lafleur MD at [facility] Right: Hip [employer] 11/11/2031 [id number] / / [id number] Liner Actb R3 0d 62mm 44mm Xlpe Implanted:Qty : 1 on 12/08/2022 by Torrey Lafleur MD at [facility] Right: Hip [employer] [id number] 03/23/2029 [id number] / / [id number] Fem High Offset Sleeved Stem 17h X 240mm Implanted:Qty : 1 on 12/08/2022 by Torrey Lafleur MD at [facility] Right: Hip [employer] 02/05/2027 [id number] / / [id number] Head Fem 44mm Mdlr Tl Oxnm Implanted:Qty : 1 on 12/08/2022 by Torrey Lafleur MD at [facility] Right: Hip [employer] [id number] 04/02/2031 [id number] / / [id number] Slv Fem Anthology +4 Tpr Hip Ti Implanted:Qty : 1 on 12/08/2022 by Torrey Lafleur MD at [facility] Right: Hip [employer] [id number] 04/20/2032 [id number] / / [id number] Slv Centering 50mm 20-23mm Redapt 16-17 Implanted:Qty : 1 on 12/08/2022 by Torrey Lafleur MD at [facility] Right: Hip [employer] 11/21/2031 [id number] / / [id number] Cmnt Bone Rally 40gm Hvisc Sprmnt Grn Implanted:Qty : 1 on 09/24/2023 by Torrey Lafleur MD at [facility] Right: Hip [employer] 04/05/2024 [id number] / / [id number] Cmnt Bone Rally 40gm Hvisc Sprmnt Grn Implanted:Qty : 1 on 09/27/2023 by Torrey Lafleur MD at [facility] Right: Hip [employer] 06/05/2027 [id number] / / [id number] Femoral Head Implanted:Qty : 1 on 10/02/2023 by Torrey Lafleur MD at [facility] Right: Hip [employer] 04/30/2033 [id number] / / [id number] Head Sleeve Implanted:Qty : 1 on 10/02/2023 by Torrey Lafleur MD at [facility] Right: Hip [employer] 03/20/2033 [id number] / / [id number] Liner Implanted:Qty : 1 on 10/02/2023 by Torrey Lafleur MD at [facility] Right: Hip [employer] 03/23/2029 [id number] / / [id number] Procedures Procedure Name Priority Date/Time Associated Diagnosis Comments GLUCOSE - POINT OF CARE Routine 10/17/2023 8:26 AM CDT from Last 3 Months or Most Recently Relevant to Health Maintenance Results * (ABNORMAL) GLUCOSE - POINT OF CARE (10/17/2023 8:26 AM CDT) Pathologist [facility] Glucose WB/POC 174(H) 70 - 106 mg/dL 10/17/2023 8:32 AM CDT [facility] Specimen Type Cap Fingerstick 2023 8:32 AM CDT [facility] Blood BLOOD SPECIMEN / Unknown 10/17/2023 8:26 AM CDT 10/17/2023 8:32 AM CDT Marco Carter MD LAB - POINT OF CARE ORDERABLES Performing Organization Address City/State/[facility] Co de Phone Number [facility] [address] [place] [address] from Last 3 Months or Most Recently Relevant to Health Maintenance Advance Directives * Full Code (Latest Code Status on File) Date Activated Date Inactivated Comments 10/16/2023 6:28 AM 10/17/2023 12:03 PM * Full Code Date Activated Date Inactivated Comments 10/16/2023 6:28 AM 10/16/2023 6:28 AM * Full Code Date Activated Date Inactivated Comments 09/27/2023 1:30 PM 10/04/2023 12:54 PM * Full Code Date Activated Date Inactivated Comments 09/24/2023 4:26 PM 09/27/2023 1:30 PM * Full Code Date Activated Date Inactivated Comments 12/14/2022 7:55 PM 12/16/2022 1:07 PM Care Teams Cupola Tender Relationship Specialty Start Date End Date Faisal Richardson DO [address] [place] [id number] PCP - General Family Medicine 11/27/22
--- OUTSIDE RECORDS SUMMARY | 2024-07-28 00:56 | XMS_ITS | Patient Health Summary ---
Author Organization [facility] Address [address] [place] [address] Care Team Providers Care Equipment Operator Name Role Phone Faisal Richardson DO Primary Care Provider [phone] Note from [facility],non-owned Affiliates and Associated Physician Practices is amultiple site organization consisting of ambulatory clinics and hospital sitesin [place], [place], [place] and [place]. This disclosure is being madepursuant to the Care Everywhere program and may not contain all information available regarding this patient. Last updated 18.[facility] Allergies * Penicillins(Angioedema) -High Criticality Medications * Be aware that medications may not be up to date on this document. Alwaysverify current medications with the patient. * carvedilol (Coreg) 25 MG tablet(Started 09/28/2021) Take 1 (one) tablet by mouth 2 times daily * cyclobenzaprine (Flexeril) 10 MG tablet(Started 03/05/2022) Take 1 (one) tablet by mouth 2 times daily * Docusate Sodium (DSS) 100 MG(Started 05/03/2022) Take 100 mg by mouth 2 times daily * dulaglutide (Trulicity) 1.5 MG/0.5ML injection(Started 10/17/2021) * ergocalciferol (Drisdol) 1.25 MG (48292 UT) capsule(Started 05/02/2022) Take 1 (one) capsule by mouth * metFORMIN (Glucophage) 1000 MG tablet(Started 03/05/2022) Take 1 (one) tablet by mouth 2 times daily * Multiple Vitamins-Minerals (One-A-Day Mens Health Formula) TABS(Started 08/06/2021) * rosuvastatin (Crestor) 20 MG tablet(Started 01/29/2022) Take 2 (two) tablets by mouth every morning * ferrous sulfate 325 (65 FE) MG tablet Take 1 (one) tablet by mouth once daily * Bacillus Coagulans-Inulin (Probiotic) 1-250 BILLION-MG CAPS * sertraline (Zoloft) 50 MG tablet Take 1 (one) tablet by mouth once daily * pregabalin (Lyrica) 50 MG capsule(Started 12/09/2022) Take 1 (one) capsule by mouth 2 times daily * pantoprazole EC (Protonix) 40 MG tablet(Started 12/16/2022) Take 1 (one) tablet by mouth once daily Reasons: Stomach Ulcer 2 refills by 12/16/2023 * clopidogrel (plaVIX) 75 MG tablet(Started 12/19/2022) Take 1 (one) tablet by mouth once daily Start taking 12/19/22. * buPROPion XL 24hr (Wellbutrin-XL) 300 MG tablet(Started 12/28/2022) * oxyCODONE-acetaminophen (Percocet) 5-325 MG tablet(Started 10/04/2023) Take 1 (one) tablet by mouth every 4 hours as needed for Pain * amLODIPine (Norvasc) 10 MG tablet(Started 10/05/2023) Take 1 (one) tablet by mouth once daily * ceFAZolin 2 g in 0.9% NaCl IV 0.9 % 50 mL IVPB(Started 10/04/2023) 2 (two) g by Intravenous route every 8 hours * apixaban (Eliquis) 2.5 MG tablet(Started 10/04/2023) Take 1 (one) tablet by mouth 2 times daily for 30 days * acetaminophen (Tylenol) 325 MG tablet(Started 10/17/2023) Take 2 (two) tablets by mouth every 4 hours as needed for Fever (For temperature GREATER than 101 )Maximum allowable Acetaminophen amount = 4 Grams (4000 mg) / 24 hours. * diclofenac sodium (Voltaren) 1 % gel(Started 10/17/2023) Apply 2 (two) g to affected area 4 times daily Active Problems Problem Noted Date Diagnosed Date [...] disease) 11/24/2017 GI (gastrointestinal bleed) 07/14/2014 Immunizations * TDAP (7yrs+)(Given 10/25/2021) Social History Tobacco Use Types Packs/Day Years [...] Recorded Patient Health Questionnaire-2 Score 4 01/15/2024 [facility] Occup[facility] ional [facility] - Occupational Stress [...] place to sleep or slept in a intermediate (including now)? No 10/17/2023 Sex and Gender [...] Mass Index 36.93 10/15/2023 9:20 PM CDT Medical Devices Implanted Type Area Foley Artist Device Identifier Shelf Expiration Date Model / Serial / Lot Cable Orth Cocr 2mm 75mm Troch Clp Implanted:Qty : 1 on 12/08/2022 by Torrey Lafleur MD at [facility] Cable Right: Femur [employer] 06/07/2032 [id number] / / [id number] Screw 6.5mm 25mm Hip Actb Canc Sphrcl Implanted:Qty : 1 on 12/08/2022 by Torrey Lafleur MD at [facility] Screw Right: Hip [employer] 02/09/2032 [id number] / / [id number] Shell Actb 62mm Hip 3 Hl Por R3 Implanted:Qty : 1 on 12/08/2022 by Torrey Lafleur MD at [facility] Right: Hip [employer] 11/11/2031 [id number] / / [id number] Liner Actb R3 0d 62mm 44mm Xlpe Implanted:Qty : 1 on 12/08/2022 by Torrey Lafleur MD at [facility] Right: Hip [employer] [id number] 03/23/2029 [id number] / / [id number] Fem High Offset Sleeved Stem 17h X 240mm Implanted:Qty : 1 on 12/08/2022 by Torrey Lafleur MD at [facility] Right: Hip [employer] 02/05/2027 [id number] / / [id number] Head Fem 44mm Mdlr Tl Oxnm Implanted:Qty : 1 on 12/08/2022 by Torrey Lafleur MD at [facility] Right: Hip [employer] [id number] 04/02/2031 [id number] / / [id number] Slv Fem Anthology +4 Tpr Hip Ti Implanted:Qty : 1 on 12/08/2022 by Torrey Lafleur MD at [facility] Right: Hip [employer] [id number] 04/20/2032 [id number] / / [id number] Slv Centering 50mm 20-23mm Redapt 16-17 Implanted:Qty : 1 on 12/08/2022 by Torrey Lafleur MD at [facility] Right: Hip [employer] 11/21/2031 [id number] / / [id number] Cmnt Bone Rally 40gm Hvisc Sprmnt Grn Implanted:Qty : 1 on 09/24/2023 by Torrey Lafleur MD at [facility] Right: Hip [employer] 04/05/2024 [id number] / / [id number] Cmnt Bone Rally 40gm Hvisc Sprmnt Grn Implanted:Qty : 1 on 09/27/2023 by Torrey Lafleur MD at [facility] Right: Hip [employer] 06/05/2027 [id number] / / [id number] Femoral Head Implanted:Qty : 1 on 10/02/2023 by Torrey Lafleur MD at [facility] Right: Hip [employer] 04/30/2033 [id number] / / [id number] Head Sleeve Implanted:Qty : 1 on 10/02/2023 by Torrey Lafleur MD at [facility] Right: Hip [employer] 03/20/2033 [id number] / / [id number] Liner Implanted:Qty : 1 on 10/02/2023 by Torrey Lafleur MD at [facility] Right: Hip [employer] 03/23/2029 [id number] / / [id number] Procedures * XR PELVIS W RIGHT HIP 2VW(Performed 01/16/2024) 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 * XR PELVIS W RIGHT HIP 2VW(Performed 10/24/2023) 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 * GLUCOSE - POINT OF CARE(Performed 10/17/2023) * GLUCOSE - POINT OF CARE(Performed 10/16/2023) * GLUCOSE - POINT OF CARE(Performed 10/16/2023) * GLUCOSE - POINT OF CARE(Performed 10/16/2023) * GLUCOSE - POINT OF CARE(Performed 10/16/2023) * GLUCOSE - POINT OF CARE(Performed 10/15/2023) * CT HIP RIGHT W CONTRAST(Performed 10/15/2023) Performed for Right hip pain * COMPREHENSIVE METABOLIC PANEL(Performed 10/15/2023) * CBC W AUTO DIFFERENTIAL(Performed 10/15/2023) * XR PELVIS W RIGHT HIP 2VW(Performed 10/15/2023) Performed for Right hip pain * CARDIAC RHYTHM STRIP ORDER(Performed 10/06/2023) * GLUCOSE - POINT OF CARE(Performed 10/04/2023) * GLUCOSE - POINT OF CARE(Performed 10/04/2023) * GLUCOSE - POINT OF CARE(Performed 10/03/2023) * GLUCOSE - POINT OF CARE(Performed 10/03/2023) * GLUCOSE - POINT OF CARE(Performed 10/03/2023) * HGB HCT PANEL(Performed 10/03/2023) * PT EVAL AND TREAT(Performed 10/03/2023) * OT EVAL AND TREAT(Performed 10/03/2023) * GLUCOSE - POINT OF CARE(Performed 10/03/2023) * GLUCOSE - POINT OF CARE(Performed 10/02/2023) * GLUCOSE - POINT OF CARE(Performed 10/02/2023) * GLUCOSE - POINT OF CARE(Performed 10/02/2023) * ENDOTRACHEAL TUBE NOTE(Performed 10/02/2023) * KS INNA SUBQ TISSUE 20 SQ CM/<(Performed 10/02/2023) Performed for Diagnosis unknown * GLUCOSE - POINT OF CARE(Performed 10/02/2023) * GLUCOSE - POINT OF CARE(Performed 10/01/2023) * GLUCOSE - POINT OF CARE(Performed 10/01/2023) * GLUCOSE - POINT OF CARE(Performed 10/01/2023) * GLUCOSE - POINT OF CARE(Performed 10/01/2023) * GLUCOSE - POINT OF CARE(Performed 09/30/2023) * GLUCOSE - POINT OF CARE(Performed 09/30/2023) * GLUCOSE - POINT OF CARE(Performed 09/30/2023) * GLUCOSE - POINT OF CARE(Performed 09/30/2023) * HEPATIC FUNCTION PANEL(Performed 09/30/2023) * GLUCOSE - POINT OF CARE(Performed 09/29/2023) * GLUCOSE - POINT OF CARE(Performed 09/29/2023) * GLUCOSE - POINT OF CARE(Performed 09/29/2023) * GLUCOSE - POINT OF CARE(Performed 09/29/2023) * GLUCOSE - POINT OF CARE(Performed 09/28/2023) * GLUCOSE - POINT OF CARE(Performed 09/28/2023) * GLUCOSE - POINT OF CARE(Performed 09/28/2023) * GLUCOSE - POINT OF CARE(Performed 09/28/2023) * GLUCOSE - POINT OF CARE(Performed 09/27/2023) * GLUCOSE - POINT OF CARE(Performed 09/27/2023) * GLUCOSE - POINT OF CARE(Performed 09/27/2023) * CULTURE WOUND+GRAM STAIN(Performed 09/27/2023) Performed for Diagnosis unknown * CULTURE ANAEROBE(Performed 09/27/2023) Performed for Diagnosis unknown * ENDOTRACHEAL TUBE NOTE(Performed 09/27/2023) * KS INNA SUBQ TISSUE 20 SQ CM/<(Performed 09/27/2023) Performed for Diagnosis unknown * GLUCOSE - POINT OF CARE(Performed 09/27/2023) * GLUCOSE - POINT OF CARE(Performed 09/26/2023) * GLUCOSE - POINT OF CARE(Performed 09/26/2023) * GLUCOSE - POINT OF CARE(Performed 09/26/2023) * VANCOMYCIN LEVEL TROUGH(Performed 09/26/2023) * GLUCOSE - POINT OF CARE(Performed 09/26/2023) * VANCOMYCIN LEVEL PEAK(Performed 09/26/2023) * GLUCOSE - POINT OF CARE(Performed 09/25/2023) * GLUCOSE - POINT OF CARE(Performed 09/25/2023) * GLUCOSE - POINT OF CARE(Performed 09/25/2023) * CULTURE BLOOD(Performed 09/25/2023) Performed for Infection of prosthetic joint, initial encounter ([facility]) * CULTURE BLOOD(Performed 09/25/2023) Performed for Infection of prosthetic joint, initial encounter ([facility]) * GLUCOSE - POINT OF CARE(Performed 09/25/2023) * CBC W/O DIFFERENTIAL(Performed 09/25/2023) * BASIC METABOLIC PANEL (CALCIUM TOTAL)(Performed 09/25/2023) * HEMOGLOBIN A1C(Performed 09/25/2023) * GLUCOSE - POINT OF CARE(Performed 09/24/2023) * GLUCOSE - POINT OF CARE(Performed 09/24/2023) * CULTURE FUNGUS OTHER+FUNGUS SMEAR(Performed 09/24/2023) Performed for Diagnosis unknown * CULTURE TISSUE+GRAM STAIN(Performed 09/24/2023) Performed for Diagnosis unknown * CULTURE AFB+SMEAR(Performed 09/24/2023) Performed for Diagnosis unknown * CULTURE ANAEROBE(Performed 09/24/2023) Performed for Diagnosis unknown * CULTURE FUNGUS OTHER+FUNGUS SMEAR(Performed 09/24/2023) Performed for Diagnosis unknown * CULTURE TISSUE+GRAM STAIN(Performed 09/24/2023) Performed for Diagnosis unknown * CULTURE AFB+SMEAR(Performed 09/24/2023) Performed for Diagnosis unknown * CULTURE ANAEROBE(Performed 09/24/2023) Performed for Diagnosis unknown * FL GUIDED NEEDLE PLACEMENT(Performed 09/24/2023) Performed for Pain of right hip * PATHOLOGY SMEAR BODY FLUID(Performed 09/24/2023) Performed for Diagnosis unknown * DIFFERENTIAL MANUAL FLUID(Performed 09/24/2023) Performed for Diagnosis unknown * CRYSTAL IDENTIFICATION FLUID(Performed 09/24/2023) Performed for Diagnosis unknown * CELL COUNT W DIFFERENTIAL FLUID(Performed 09/24/2023) Performed for Diagnosis unknown * CULTURE FUNGUS OTHER+FUNGUS SMEAR(Performed 09/24/2023) Performed for Diagnosis unknown * CULTURE FLUID+GRAM STAIN(Performed 09/24/2023) Performed for Diagnosis unknown * CULTURE AFB+SMEAR(Performed 09/24/2023) Performed for Diagnosis unknown * CULTURE ANAEROBE(Performed 09/24/2023) Performed for Diagnosis unknown * ENDOTRACHEAL TUBE NOTE(Performed 09/24/2023) * KS DRAIN/INJECT LARGE JOINT/BURSA(Performed 09/24/2023) Performed for Diagnosis unknown * GLUCOSE - POINT OF CARE(Performed 09/24/2023) * PT EVAL AND TREAT(Performed 09/24/2023) * OT EVAL AND TREAT(Performed 09/24/2023) * CT LOWER EXT RIGHT W CONTRAST(Performed 09/24/2023) Performed for Pain of right hip * VAS RIGHT VENOUS DUPLEX LE(Performed 09/24/2023) Performed for Pain of right hip * XR FEMUR RIGHT 2VW(Performed 09/24/2023) Performed for Pain of right hip * XR PELVIS 1 OR 2VW(Performed 09/24/2023) Performed for Pain of right hip * C-REACTIVE PROTEIN(Performed 09/24/2023) * ERYTHROCYTE SEDIMENTATION RATE(Performed 09/24/2023) * DIFFERENTIAL MANUAL(Performed 09/24/2023) * BASIC METABOLIC PANEL (CALCIUM TOTAL)(Performed 09/24/2023) * CBC W AUTO DIFFERENTIAL(Performed 09/24/2023) * XR PELVIS W RIGHT HIP 2VW(Performed 09/11/2023) Performed for Right hip pain * PAIN MANAGEMENT PROCEDURE TIME(Performed 08/29/2023) Performed for Arthritis of hip * XR PELVIS W RIGHT HIP 2VW(Performed 07/10/2023) 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 * C-REACTIVE PROTEIN(Performed 04/04/2023) 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 * ERYTHROCYTE SEDIMENTATION RATE(Performed 04/04/2023) 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 * XR PELVIS W RIGHT HIP 2VW(Performed 04/04/2023) Performed for Right hip pain * XR PELVIS W RIGHT HIP 2VW(Performed 01/02/2023) Performed for Right hip pain * CARDIAC EKG ORDER(Performed 12/25/2022) * CARDIAC RHYTHM STRIP ORDER(Performed 12/25/2022) * COMPREHENSIVE METABOLIC PANEL(Performed 12/16/2022) * CBC W AUTO DIFFERENTIAL(Performed 12/16/2022) * CBC W/O DIFFERENTIAL(Performed 12/15/2022) Performed for Gastrointestinal hemorrhage, unspecified gastrointestinal hemorrhage type * HELICOBACTER PYLORI UREASE (STL)(Performed 12/15/2022) Performed for Gastrointestinal hemorrhage associated with gastritis, unspecified gastritis type * EGD(Performed 12/15/2022) * KS EGD FLEX TRANSORAL W BX SNGL OR MULT(Performed 12/15/2022) * KS ED EGD FLEX TRANSORAL DX(Performed 12/15/2022) * GLUCOSE - POINT OF CARE(Performed 12/15/2022) * CBC W/O DIFFERENTIAL(Performed 12/15/2022) Performed for Gastrointestinal hemorrhage, unspecified gastrointestinal hemorrhage type * GLUCOSE - POINT OF CARE(Performed 12/15/2022) * FERRITIN(Performed 12/15/2022) * VITAMIN B12(Performed 12/15/2022) * FOLATE(Performed 12/15/2022) * IRON + TRANSFERRIN PANEL(Performed 12/15/2022) * CBC W/O DIFFERENTIAL(Performed 12/15/2022) * RENAL FUNCTION PANEL(Performed 12/15/2022) * TRANSFUSE RED BLOOD CELL LEUKOREDUCED UNIT(S)(Performed 12/15/2022) * PREPARE RBC LEUKOREDUCED UNIT(Performed 12/15/2022) * TYPE + SCREEN PANEL(Performed 12/14/2022) * HEMOGLOBIN A1C(Performed 12/14/2022) * PHOSPHORUS BLOOD(Performed 12/14/2022) * MAGNESIUM BLOOD(Performed 12/14/2022) * PT-INR(Performed 12/14/2022) * COMPREHENSIVE METABOLIC PANEL(Performed 12/14/2022) * CBC W AUTO DIFFERENTIAL(Performed 12/14/2022) * GLUCOSE - POINT OF CARE(Performed 12/14/2022) * APHERESIS/TRANSFUSION ORDER(Performed 12/11/2022) * CARDIAC RHYTHM STRIP ORDER(Performed 12/11/2022) * PREPARE RBC LEUKOREDUCED UNIT(Performed 12/10/2022) Performed for Pre-op testing * GLUCOSE - POINT OF CARE(Performed 12/09/2022) * GLUCOSE - POINT OF CARE(Performed 12/09/2022) * HGB HCT PANEL(Performed 12/09/2022) Performed for S/P total right hip arthroplasty * GLUCOSE - POINT OF CARE(Performed 12/08/2022) * GLUCOSE - POINT OF CARE(Performed 12/08/2022) * XR PELVIS 1 OR 2VW(Performed 12/08/2022) Performed for S/P total right hip arthroplasty * GLUCOSE - POINT OF CARE(Performed 12/08/2022) * FL ABBIE SURGERY(Performed 12/08/2022) Performed for Pain * BLOOD GASES ART + LYTES GLU CA+ HH (ISTAT)(Performed 12/08/2022) * BLOOD GASES ART + LYTES GLU CA+ HH (ISTAT)(Performed 12/08/2022) * CULTURE WOUND+GRAM STAIN(Performed 12/08/2022) Performed for Diagnosis unknown * CULTURE ANAEROBE(Performed 12/08/2022) Performed for Diagnosis unknown * ENDOTRACHEAL TUBE NOTE(Performed 12/08/2022) * ARTERIAL LINE NOTE(Performed 12/08/2022) * PLACEMENT/CHANGE WOUND VAC(Performed 12/08/2022) Performed for Diagnosis unknown * ARTHROPLASTY TOTAL HIP REVISION(Performed 12/08/2022) Performed for Diagnosis unknown * CBC W AUTO DIFFERENTIAL(Performed 12/08/2022) Performed for Pre-op testing * GLUCOSE - POINT OF CARE(Performed 12/08/2022) * TYPE + SCREEN PANEL(Performed 11/27/2022) Performed for Preop examination * HEMOGLOBIN A1C(Performed 11/27/2022) Performed for Preop examination * FRUCTOSAMINE(Performed 11/27/2022) Performed for Preop examination * URINALYSIS REFLEX MICROSCOPIC REFLEX CULTURE(Performed 11/27/2022) Performed for Preop examination * TRANSFERRIN(Performed 11/27/2022) Performed for Preop examination * COMPREHENSIVE METABOLIC PANEL(Performed 11/27/2022) Performed for Preop examination * CBC W AUTO DIFFERENTIAL(Performed 11/27/2022) Performed for Preop examination * CULTURE MSSA/MRSA(Performed 11/27/2022) Performed for Preop examination * XR PELVIS W RIGHT HIP 2VW(Performed 11/21/2022) Performed for Right hip pain * GLUCOSE ACCUCHECK(Performed 09/15/2014) * GLUCOSE ACCUCHECK(Performed 07/16/2014) * HEMOGLOBIN(Performed 07/16/2014) * GLUCOSE ACCUCHECK(Performed 07/16/2014) * GLUCOSE ACCUCHECK(Performed 07/16/2014) * PHOSPHORUS BLOOD(Performed 07/16/2014) * MAGNESIUM BLOOD(Performed 07/16/2014) * BASIC METABOLIC PANEL (CALCIUM TOTAL)(Performed 07/16/2014) * CBC W AUTO DIFFERENTIAL(Performed 07/16/2014) * CBC W AUTO DIFFERENTIAL(Performed 07/16/2014) * HEMOGLOBIN(Performed 07/15/2014) * GLUCOSE ACCUCHECK(Performed 07/15/2014) * HEMOGLOBIN(Performed 07/15/2014) * GLUCOSE ACCUCHECK(Performed 07/15/2014) * HEMOGLOBIN(Performed 07/15/2014) * GLUCOSE ACCUCHECK(Performed 07/15/2014) * TYPE + SCREEN PANEL(Performed 07/15/2014) * CROSSMATCH RBC LEUKOREDUCED(Performed 07/15/2014) * HELICOBACTER PYLORI ANTIBODY IGG(Performed 07/15/2014) * HEMOGLOBIN A1C(Performed 07/15/2014) * DIFFERENTIAL MANUAL(Performed 07/15/2014) * CBC W AUTO DIFFERENTIAL(Performed 07/15/2014) * CBC W AUTO DIFFERENTIAL(Performed 07/15/2014) * PHOSPHORUS BLOOD(Performed 07/15/2014) * MAGNESIUM BLOOD(Performed 07/15/2014) * BASIC METABOLIC PANEL (CALCIUM TOTAL)(Performed 07/15/2014) * CBC W/O DIFFERENTIAL(Performed 07/14/2014) * HEMOGLOBIN(Performed 07/14/2014) * GLUCOSE ACCUCHECK(Performed 07/14/2014) * PATHOLOGY TISSUE(Performed 07/14/2014) * GLUCOSE ACCUCHECK(Performed 07/14/2014) * CBC W AUTO DIFFERENTIAL(Performed 07/14/2014) * DIFFERENTIAL MANUAL(Performed 07/14/2014) * COMPREHENSIVE METABOLIC PANEL(Performed 07/14/2014) * CBC W AUTO DIFFERENTIAL(Performed 07/14/2014) * LACTIC ACID BLOOD(Performed 07/14/2014) * PTT SLH(Performed 07/14/2014) * PT-INR [facility](Performed 07/14/2014) Results * XR PELVIS W RIGHT HIP 2VW (01/16/2024 9:39 AM CDT) Only the most recent of8 resultswithin the time period is included. Anatomical Region Laterality Modality Pelvis Radiographic Sabi ging 01/16/2024 11:0 3 AM CDT Narrative 01/16/2024 11:05 AM CDT Procedure: XR PELVIS W RIGHT HIP 2VW ??Exam Date: ??01/16/2024 9:39 AM ?? Location: ??[facility] Indication: Z96.649: Presence of unspecified artificial [...] 2VW Exam Date: 01/16/2024 9:39 AM Location: [facility] Indication: Z96.649: Presence of unspecified artificial [...] AM Torrey Lafleur MD DIAGNOSTIC IMAGING ORDERABLES * (ABNORMAL) GLUCOSE - POINT OF CARE (10/17/2023 8:26 AM CDT) Only the most recent of56 resultswithin the time period is included. Pathologist [facility] Glucose WB/POC 174(H) 70 - 106 mg/dL 10/17/2023 8:32 AM CDT [facility] Specimen Type Cap Fingerstick 2023 8:32 AM CDT [facility] Blood BLOOD SPECIMEN / Unknown 10/17/2023 8:26 AM CDT 10/17/2023 8:32 AM CDT Marco Carter MD LAB - POINT OF CARE ORDERABLES Performing Organization Address City/State/[facility] Co de Phone Number [facility] [id number] [place] [address] * CT HIP RIGHT W CONTRAST (10/15/2023 6:25 PM CDT) Anatomical Region Laterality Modality Lower Extremity Computed Tomogra phy 10/15/2023 7:06 PM CDT Narrative 10/15/2023 7:16 PM CDT PROCEDURE: ??CT HIP RIGHT W CONTRAST DATE/TIME OF EXAM: ??10/15/2023 6:29 PM CLINICAL INFORMATION: None relevant/not provided if blank. 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 The patient is on cefazolin. Infection is suspected. COMPARISON: Pelvis and right hip radiographs dated 10/15/2023. TECHNIQUE: Spiral axial scanning of the right hip was performed after intravenous administration of 100 mL Isovue-370 contrast followed by coronal and sagittal reconstruction of images by the technologist. FINDINGS/IMPRESSION: 1. The patient is status post right total hip arthroplasty. There is no lucency around the prosthesis to indicate loosening and intramedullary infection. No evidence of osteomyelitis is identified. There is no evidence of fracture, dislocation or suspicious intrinsic bony lesion. 2. There is subcutaneous fat stranding of lateral aspect of the right hip which may represent edema or cellulitis. 3. Along the surgical tract of the previous surgery, there is a small collection of fluid with a visible surrounding rim and a second fluid collection embedded within the muscles of upper time. These are best seen on the coronal images (series 5, image 44 and axial images (like series 3, image 71) and are at the level of the greater trochanter and metaphysis of proximal right femur. The intramuscular collection is lateral and posterior aspect of the upper femur. These may represent seroma, but abscess is not excluded. The subcutaneous fluid collection measures 2.2 x 1.4 x 11.3 cm and the intramuscular fluid collection measures 1.5 x 7.7 x 11.1 cm in their respective AP, transverse and cephalocaudal dimensions. 4. There is no evidence of fluid in the joint space to indicate septic arthritis. 5. The remainder of the subcutaneous fat, imaged muscles and the imaged intrapelvic structures are unremarkable. 6. Moderate to severe degenerative disc disease at L5-S1 is noted. > Interpreting Provider: Benedicto Ortiz MD on 10/15/2023 7:16 PM Procedure Note Benedicto Ortiz MD - 10/15/2023 PROCEDURE: CT HIP RIGHT W CONTRAST DATE/TIME OF EXAM: 10/15/2023 6:29 PM CLINICAL INFORMATION: None relevant/not provided if blank. Indication: M25.551: Pain in right hip IV CONTRAST: IOPAMIDOL 76 % IV SOLN:[address] RIGHT HIP WITH CONTRAST HISTORY: This is a 58-year-old male with a past medical history ofmultiple infections in the right hip is status post multiple debridements who presented with worsening of pain in his right hip. The patient is on cefazolin. Infection is suspected. COMPARISON: Pelvis and right hip radiographs dated 10/15/2023. TECHNIQUE: Spiral axial scanning of the right hip was performed after intravenous administration of 100 mL Isovue-370 contrast followed by coronal and sagittal reconstruction of images by the technologist. FINDINGS/IMPRESSION: 1. The patient is status post right total hip arthroplasty. There is no lucency around the prosthesis to indicate loosening and intramedullary infection. No evidence of osteomyelitis is identified. There is noevidence of fracture, dislocation or suspicious intrinsic bony lesion. 2. There is subcutaneous fat stranding of lateral aspect of the righthip which may represent edema or cellulitis. 3. Along the surgical tract of the previous surgery, there is a small collection of fluid with a visible surrounding rim and a second fluid collection embedded within the muscles of upper time. These are bestseen on the coronal images (series 5, image 44 and axial images (like series3, image 71) and are at the level of the greater trochanter and metaphysisof proximal right femur. The intramuscular collection is lateral andposterior aspect of the upper femur. These may represent seroma, but abscess isnot excluded. The subcutaneous fluid collection measures 2.2 x 1.4 x 11.3 cm and the intramuscular fluid collection measures 1.5 x 7.7 x 11.1 cm in their respective AP, transverse and cephalocaudal dimensions. 4. There is no evidence of fluid in the joint space to indicate septic arthritis. 5. The remainder of the subcutaneous fat, imaged muscles and the imaged intrapelvic structures are unremarkable. 6. Moderate to severe degenerative disc disease at L5-S1 is noted. > Interpreting Provider: Benedicto Ortiz MD on 10/15/2023 7:16 PM Mely Shine DO CT ORDERABLES * (ABNORMAL) CBC W AUTO DIFFERENTIAL (10/15/2023 1:19 PM CDT) Only the most recent of12 resultswithin the time period is included. WBC 8.5 4.0 - 10.7 x10E9/L 10/15/2023 1:25 PM CDT [facility] RBC Count 3.04(L) 4.30 - 5.80 x10E12/L 10/15/2023 1:25 PM CDT [facility] Hemoglobin 9.0(L) 13.3 - 17.5 g/dL 10/15/2023 1:25 PM CDT [facility] Hematocrit 29.2(L) 38.7 - 51.1 % 10/15/2023 1:25 PM CDT [facility] MCV 96.1 80.0 - 98.0 fL 10/15/2023 1:25 PM CDT [facility] MCH 29.6 26.7 - 33.6 pg 10/15/2023 1:25 PM CDT [facility] MCHC 30.8(L) 31.7 - 36.3 g/dL 10/15/2023 1:25 PM CDT [facility] RDW-CV 14.1 11.3 - 14.8 % 10/15/2023 1:25 PM CDT [facility] Platelet Count 297 150 - 420 x10E9/L 10/15/2023 1:25 PM CDT [facility] MPV 8.5 7.8 - 11.4 fL 10/15/2023 1:25 PM CDT [facility] Neutrophil % 62.0 41.0 - 74.0 % 10/15/2023 1:25 PM CDT [facility] Lymphocyte % 23.9 17.0 - 47.0 % 10/15/2023 1:25 PM CDT [facility] Monocyte % 10.3 3.0 - 11.0 % 10/15/2023 1:25 PM CDT [facility] Eosinophil % 2.1 0.0 - 7.0 % 10/15/2023 1:25 PM CDT [facility] Basophil % 0.6 0.0 - 1.6 % 10/15/2023 1:25 PM CDT [facility] Immature Granulocytes % 1.1(H) 0.0 - 1.0 % 10/15/2023 1:25 PM CDT [facility] Neutrophil Absolute 5.25 1.60 - 7.50 x10E9/L 10/15/2023 1:25 PM CDT [facility] Lymphocyte Absolute 2.02 1.00 - 4.40 x10E9/L 10/15/2023 1:25 PM CDT [facility] Monocyte Absolute 0.87 0.15 - 1.00 x10E9/L 10/15/2023 1:25 PM CDT [facility] Eosinophil Absolute 0.18 0.00 - 0.60 x10E9/L 10/15/2023 1:25 PM CDT [facility] Basophil Absolute 0.05 0.00 - 0.13 x10E9/L 10/15/2023 1:25 PM CDT [facility] NRBC 0.4(H) <=0.0 /100 WBC 10/15/2023 1:25 PM CDT [facility] Blood BLOOD SPECIMEN / Unknown Venipuncture / Unknown 10/15/2023 1:19 PM CDT 10/15/2023 1:23 PM CDT Myrtle Villa PA-C LAB - HEMATOL OGY ORDERABLES [facility] [address] [place] [address] * (ABNORMAL) COMPREHENSIVE METABOLIC PANEL (10/15/2023 1:19 PM CDT) Only the most recent of5 resultswithin the time period is included. Glucose 118(H) 70 - 105 mg/dL 10/15/2023 1:39 PM CDT [facility] Sodium 138 136 - 145 mmol/L 10/15/2023 1:39 PM CDT [facility] Potassium 4.6 3.5 - 5.1 mmol/L 10/15/2023 1:39 PM CDT [facility] Chloride 106 98 - 107 mmol/L 10/15/2023 1:39 PM CDT [facility] CO2 23 22 - 29 mmol/L 10/15/2023 1:39 PM CDT [facility] Calcium 9.4 8.4 - 10.4 mg/dL 10/15/2023 1:39 PM CDT [facility] Anion Gap 9 6 - 16 mmol/L 10/15/2023 1:39 PM CDT [facility] BUN 15 7 - 26 mg/dL 10/15/2023 1:39 PM CDT [facility] Creatinine 0.80 0.72 - 1.25 mg/dL 10/15/2023 1:39 PM CDT [facility] Alkaline Phosphatase 153(H) 40 - 150 U/L 10/15/2023 1:39 PM CDT [facility] ALT 12 0 - 55 U/L 10/15/2023 1:39 PM CDT [facility] AST 21 5 - 34 U/L 10/15/2023 1:39 PM CDT [facility] Protein Total 7.5 6.4 - 8.3 gm/dL 10/15/2023 1:39 PM CDT [facility] Albumin 3.0(L) 3.4 - 5.0 gm/dL 10/15/2023 1:39 PM CDT [facility] Bilirubin Total 0.5 0.2 - 1.2 mg/dL 10/15/2023 1:39 PM CDT [facility] eGFR by CKD-EPI >90 >=90 mL/min/1.7 3 m2 10/15/2023 1:39 PM CDT [facility] Blood BLOOD SPECIMEN / Unknown Venipuncture / Unknown 10/15/2023 1:19 PM CDT 10/15/2023 1:23 PM CDT Myrtle Villa PA-C LAB - SUPERVISOR JOINERS RY ORDERABLES Performing Organization Address City/State/[facility] Co de Phone Number [facility] [address] [place] [phone] * CARDIAC RHYTHM STRIP ORDER (10/06/2023 12:03 PM EVICTION SPECIALIST) Only the most recent of3 resultswithin the time period is included. Narrative 10/06/2023 12:03 PM EVICTION SPECIALIST Ordered by an unspecified provider. Scanned Document CARDIAC SERVICES ORD ERABLES * (ABNORMAL) HGB HCT PANEL (10/03/2023 8:51 AM EVICTION SPECIALIST) Only the most recent of2 resultswithin the time period is included. [facility] Hemoglobin 8.4(L) 13.3 - 17.5 g/dL 10/03/2023 9:29 AM EVICTION SPECIALIST [facility] Hematocrit 26.7(L) 38.7 - 51.1 % 10/03/2023 9:29 AM EVICTION SPECIALIST [facility] Blood BLOOD SPECIMEN / Unknown Lab Venipuncture / Unknown 10/03/2023 8:51 AM EVICTION SPECIALIST 10/03/2023 9:20 AM EVICTION SPECIALIST Praveen Kaufman MD LAB - HEMATOLOGY ORD ERABLES [facility] [address] [place] [address] * ETT LINE PERFORMABLE (10/02/2023 2:32 PM EVICTION SPECIALIST) Narrative Maisha Romano APRN-CRNA - 10/02/2023 2:32 PM EVICTION SPECIALIST Maisha Romano APRN-CRNA ? 10/02/2023 ??2:34 PM Endotracheal Tube Placement: ? Patient Location: OR. Intubation Event Date/Time: ??10/02/2023 2:04 PM Procedure: intubation ([id number]). Procedure Section: ?? Sedation: under general anesthesia. Indications for Airway Management: ??anesthesia Procedure pretreatments used? ??No Induction: modified rapid sequence Patient Position: ??sniffing Mask Ventilation: not attempted. Blade Type: Video Blade Size: 4 Laryngoscopy View: grade 1 (full cords) Intubation Adjuncts: stylet and video laryngoscope Tube: endotracheal tube Placement: oral Tube type: cuff - inflated Tube Size (MM): 7 Depth of Insertion (CM): 23 Measured From: teeth Cuff Inflated With: air Number of Attempts: 1. Placement Verified By: direct visualization, bilateral breath sounds, chest auscultation and CO2 monitor Tube secured with: ??adhesive tape. Dentition unchanged? ??Yes Difficult Airway? ??Yes. ?Technique: video laryngoscope ? Reason: small mouth, obesity and other - please comment (short, large neck. Significant tissue amount in airway and around glottic opening) Procedure Start Time: 10/02/2023 2:04 PM. Staff Section ? Anesthesia Provider: Maisha Romano APRN-CRNA, Performed the procedure Segundo Zimmerman MD GENERAL ANESTHESIA O CHERISE * (ABNORMAL) HEPATIC FUNCTION PANEL (09/30/2023 3:49 AM EVICTION SPECIALIST) Alkaline Phosphatase 76 40 - 150 U/L 09/30/2023 4:49 AM EVICTION SPECIALIST [facility] ALT 28 0 - 55 U/L 09/30/2023 4:49 AM EVICTION SPECIALIST [facility] AST 31 5 - 34 U/L 09/30/2023 4:49 AM EVICTION SPECIALIST [facility] Protein Total 5.8(L) 6.4 - 8.3 gm/dL 09/30/2023 4:49 AM EVICTION SPECIALIST [facility] Albumin 2.3(L) 3.4 - 5.0 gm/dL 09/30/2023 4:49 AM [facility] Bilirubin Total 0.5 0.2 - 1.2 mg/dL 09/30/2023 4:49 AM EVICTION SPECIALIST [facility] Bilirubin Direct 0.171 0.10 - 0.50 mg/dL 09/30/2023 4:49 AM EVICTION SPECIALIST [facility] Blood BLOOD SPECIMEN / Unknown Lab Venipuncture / Unknown 09/30/2023 3:49 AM EVICTION SPECIALIST 09/30/2023 3:56 AM EVICTION SPECIALIST Ashish Barnett MD LAB - CHEMIS TRY ORDERABLES Performing Organization Address City/[facility]/ZIP Co de Phone Number [facility] [address] [place] [address] * CULTURE WOUND+GRAM STAIN (09/27/2023 11:21 AM EVICTION SPECIALIST) Only the most recent of2 resultswithin the time period is included. Culture No growth MONALISA 09/30/2023 3:31 AM EVICTION SPECIALIST [facility] Gram Stain Light Polymorphonuclear cells 09/30/2023 3:31 AM [facility] Gram Stain No organisms seen 024 3:31 AM [facility] Microbiology ENTIRE HIP REGION / Unknown Collection / Unknown 09/27/2023 11:21 AM EVICTION SPECIALIST 09/27/2023 12:32 PM EVICTION SPECIALIST Comment:Pre-op diagnosis: Diagnosis unknown [R69] Narrative [facility] - 09/30/2023 3:31 AM EVICTION SPECIALIST Surgical Description: Right Hip Torrey Lafleur MD LAB - MICROBIOLOGY ORDERABLES [facility] [address] [place] [address], [facility] [phone] * CULTURE ANAEROBE (09/27/2023 11:21 AM EVICTION SPECIALIST) Only the most recent of5 resultswithin the time period is included. Culture No anaerobic organisms isolated MONALISA 10/02/2023 1:25 PM EVICTION SPECIALIST [facility] Microbiology ENTIRE HIP REGION / Unknown 09/27/2023 11:21 AM EVICTION SPECIALIST 09/27/2023 12:32 PM EVICTION SPECIALIST Comment:Pre-op diagnosis: Diagnosis unknown [R69] Narrative [facility] - 10/02/2023 1:25 PM EVICTION SPECIALIST Surgical Description: Right Hip Torrey Lafleur MD LAB - MICROBIOLOGY ORDERABLES [facility] [address] [place] [address], [facility] [phone] * ETT LINE PERFORMABLE (09/27/2023 11:16 AM EVICTION SPECIALIST) Narrative Kip Ramirez MD - 09/27/2023 11:16 AM EVICTION SPECIALIST Kip Ramirez MD ? 09/27/2023 11:17 AM Endotracheal Tube Placement: ? Patient Location: OR. Intubation Event Date/Time: ??09/27/2023 10:52 AM Procedure: intubation ([id number]). Procedure Section: ?? Sedation: under general anesthesia. Indications for Airway Management: ??anesthesia Induction: standard IV Patient Position: ??sniffing Mask Ventilation: easy. Blade Type: Video Blade Size: 4 Laryngoscopy View: grade 1 (full cords) Intubation Adjuncts: stylet Tube: endotracheal tube Placement: oral Tube type: cuff - inflated Tube Size (MM): 8 Depth of Insertion (CM): 21 Measured From: lips Cuff volume (mL): ??8 Cuff Inflated With: air Number of Attempts: 1. Placement Verified By: direct visualization, bilateral breath sounds, chest auscultation and CO2 monitor Dentition unchanged? ??Yes Difficult Airway? ??Yes. ?Technique: video laryngoscope Procedure Start Time: 09/27/2023 10:52 AM. Staff Section ? Anesthesia Provider: Kip Ramirez MD, Performed the procedure Kip Ramirez MD GENERAL ANESTHESIA ORDERABLES * (ABNORMAL) VANCOMYCIN LEVEL TROUGH (09/26/2023 11:00 AM EVICTION SPECIALIST) Pathologist [facility] Vancomycin Trough 9.8(L) 10.0 - 20.0 ug/mL 09/26/2023 11:58 AM EVICTION SPECIALIST [facility] Blood BLOOD SPECIMEN / Unknown Lab Venipuncture / Unknown 09/26/2023 11:00 AM EVICTION SPECIALIST 09/26/2023 11:25 AM EVICTION SPECIALIST Praveen Kaufman MD LAB - CHEMISTRY BENJA DICK Performing Organization Address [facility] Co de Phone Number [facility] [address] [place] [address] [phone] * (ABNORMAL) VANCOMYCIN LEVEL PEAK (09/26/2023 4:55 AM EVICTION SPECIALIST) [facility] Vancomycin Peak 18.3(L) 25.0 - 40.0 ug/mL 09/26/2023 5:37 AM EVICTION SPECIALIST [facility] Blood BLOOD SPECIMEN / Unknown Lab Venipuncture / Unknown 09/26/2023 4:55 AM EVICTION SPECIALIST 09/26/2023 5:18 AM EVICTION SPECIALIST Praveen Kaufman MD LAB - CHEMISTRY BENJA DICK Performing Organization Address [facility] de Phone Number [facility] [address] [place] [address] * CULTURE BLOOD (09/25/2023 10:45 AM EVICTION SPECIALIST) Only the most recent of2 resultswithin the time period is included. [facility] Culture No growth day 5 MONALISA 09/30/2023 2:01 PM EVICTION SPECIALIST [facility] Blood PERIPHERAL BLOOD / Unknown Lab Venipuncture / Unknown 09/25/2023 10:45 AM EVICTION SPECIALIST 09/25/2023 11:04 AM EVICTION SPECIALIST Ashish Barnett MD LAB - MICROB IOLOGY ORDERABLES Performing Organization Address [facility] Co de Phone Number [facility] [address] [place] [address], [facility] [phone] * (ABNORMAL) HEMOGLOBIN A1C (09/25/2023 1:41 AM EVICTION SPECIALIST) Only the most recent of4 resultswithin the time period is included. Hemoglobin A1c 6.4(H) <5.7 % 09/25/2023 3:16 AM [facility] Estimated Average Glucose 137 mg/dL 09/25/2023 3:16 AM [facility] Blood BLOOD SPECIMEN / Unknown Lab Venipuncture / Unknown 09/25/2023 1:41 AM EVICTION SPECIALIST 09/25/2023 2:25 AM EVICTION SPECIALIST [facility] - 09/25/2023 3:16 AM EVICTION SPECIALIST HbA1c Interpretation: Normal: < 5.7% Pre-diabetes: 5.7-6.4% Diabetes: Equal to or greater than 6.5% Test results diagnostic of diabetes should be repeated for confirmation. Treatment target values recommended by ADA and other clinical organizations should be used to evaluate metabolic control in patients. This test should not replace glucose testing for patients with Type 1 diabetes, pediatric patients, or women. ??Falsely low HbA1c results may be observed in patients with clinical conditions that shorten erythrocyte life span or decrease mean erythrocyte age such as the presence of unstable hemoglobin variants, elevated hemoglobin F level or other causes of hemolytic anemia. ??HbA1c may not accurately reflect glycemic control when clinical conditions that affect erythrocyte survival are present. ??Severe Iron deficiency anemia may yield falsely high results. ??Hemoglobin A1c assay should not be used to diagnose or monitor diabetes in patients with malignancy, recent blood transfusion, chronic kidney or liver disease. ?? This method may yield falsely low results when hemoglobin (HbF) exceeds 5% in the specimen. The Abraham Alinity assay for the measurement of HbA1c is a National Glycohemoglobin Standardization Program (NGSP) certified method. Sarah Parsons HISTOLOGIST TECHNOLOGIST-PIN TICKET MACHINE OPERATOR LAB - CHEMISTR Y ORDERABLES Performing Organization Address City/State/[facility] Co de Phone Number [facility] [address] [place] [address] * (ABNORMAL) CBC W/O DIFFERENTIAL (09/25/2023 1:41 AM EVICTION SPECIALIST) Only the most recent of5 resultswithin the time period is included. Pathologist [facility] WBC 9.9 4.0 - 10.7 x10E9/L 09/25/2023 2:46 AM [facility] RBC Count 3.49(L) 4.30 - 5.80 x10E12/L 09/25/2023 2:46 AM [facility] Hemoglobin 10.8(L) 13.3 - 17.5 g/dL 09/25/2023 2:46 AM [facility] Hematocrit 33.6(L) 38.7 - 51.1 % 09/25/2023 2:46 AM [facility] MCV 96.3 80.0 - 98.0 fL 09/25/2023 2:46 AM [facility] MCH 30.9 26.7 - 33.6 pg 09/25/2023 2:46 AM [facility] MCHC 32.1 31.7 - 36.3 g/dL 09/25/2023 2:46 AM [facility] RDW-CV 13.6 11.3 - 14.8 % 09/25/2023 2:46 AM [facility] Platelet Count 165 150 - 420 x10E9/L 09/25/2023 2:46 AM [facility] MPV 9.4 7.8 - 11.4 fL 09/25/2023 2:46 AM [facility] Blood BLOOD SPECIMEN / Unknown Lab Venipuncture / Unknown 09/25/2023 1:41 AM EVICTION SPECIALIST 09/25/2023 2:25 AM [facility] Joseph Jaqueline HISTOLOGIST TECHNOLOGIST-PIN TICKET MACHINE OPERATOR LAB - HEMATOLO GY ORDERABLES Performing Organization Address City/State/[facility] Co de Phone Number [facility] [address] [place], [place] [phone] * (ABNORMAL) BASIC METABOLIC PANEL (CALCIUM TOTAL) (09/25/2023 1:41 AM EVICTION SPECIALIST) Only the most recent of4 resultswithin the time period is included. Glucose 182(H) 70 - 105 mg/dL 09/25/2023 3:12 AM [facility] Sodium 138 136 - 145 mmol/L 09/25/2023 3:12 AM [facility] Potassium 4.0 3.5 - 5.1 mmol/L 09/25/2023 3:12 AM [facility] Chloride 106 98 - 107 mmol/L 09/25/2023 3:12 AM [facility] CO2 22 22 - 29 mmol/L 09/25/2023 3:12 AM [facility] Calcium 8.6 8.4 - 10.4 mg/dL 09/25/2023 3:12 AM [facility] Anion Gap 10 6 - 16 mmol/L 09/25/2023 3:12 AM [facility] BUN 14 7 - 26 mg/dL 09/25/2023 3:12 AM [facility] Creatinine 0.88 0.72 - 1.25 mg/dL 09/25/2023 3:12 AM [facility] eGFR by CKD-EPI >90 >=90 mL/min/1.7 3 m2 09/25/2023 3:12 AM [facility] Blood BLOOD SPECIMEN / Unknown Lab Venipuncture / Unknown 09/25/2023 1:41 AM EVICTION SPECIALIST 09/25/2023 2:25 AM EVICTION SPECIALIST Sarah Parsons APRN-PIN TICKET MACHINE OPERATOR LAB - CHEMISTR Y ORDERABLES Performing Organization Address City/[facility]/ZIP Co de Phone Number [facility] [address] [place] [address] * CULTURE FUNGUS OTHER+FUNGUS SMEAR (09/24/2023 9:01 PM EVICTION SPECIALIST) Only the most recent of3 resultswithin the time period is included. Culture No fungus isolated MONALISA 10/22/2023 6:59 AM T [facility] Fungus Stain No yeast or hyphae seen 10/22/2023 6:59 AM CDT [facility] Microbiology TISSUE SPECIMEN / Unknown Collection / Unknown 09/24/2023 9:01 PM EVICTION SPECIALIST 09/24/2023 10:11 PM EVICTION SPECIALIST Comment:Pre-op diagnosis: Diagnosis unknown [R69] Narrative [facility] - 10/22/2023 6:59 AM CDT Surgical Description: Right Hip Tissue Torrey Lafleur MD LAB - MICROBIOLOGY ORDERABLES [facility] [address] [place], [place] [address] [phone] * (ABNORMAL) CULTURE TISSUE+GRAM STAIN (09/24/2023 9:01 PM EVICTION SPECIALIST) Only the most recent of2 resultswithin the time period is included. Culture Rare Streptococcus agalactiae (Group B)(AA) MONALISA 09/28/2023 7:22 AM EVICTION SPECIALIST [facility] Gram Stain Rare Polymorphonuclear cells 09/28/2023 7:22 AM EVICTION SPECIALIST [facility] Gram Stain No organisms seen 024 7:22 AM EVICTION SPECIALIST [facility] Microbiology TISSUE SPECIMEN / Unknown Collection / Unknown 09/24/2023 9:01 PM EVICTION SPECIALIST 09/24/2023 10:11 PM EVICTION SPECIALIST Comment:Pre-op diagnosis: Diagnosis unknown [R69] Narrative [facility] - 09/28/2023 7:22 AM EVICTION SPECIALIST Susceptibility testing of penicillin, other beta-lactam antibiotics, and vancomycin is not necessary for beta-hemolytic streptococci groups A,B,C and G because resistant strains have not been recognized. Refer to previously reported susceptibility testing, specimen number: [id number]. Surgical Description: Right Hip Tissue Torrey Lafleur MD LAB - MICROBIOLOGY ORDERABLES [facility] [address] [place] [address] [phone] * CULTURE AFB+SMEAR (09/24/2023 9:01 PM EVICTION SPECIALIST) Only the most recent of3 resultswithin the time period is included. Culture No acid-fast bacillus isolated 11/05/2023 6:39 AM CDT [facility] AFB Smear No acid-fast bacilli seen 11/05/2023 6:39 AM CDT [facility] Microbiology TISSUE SPECIMEN / Unknown Collection / Unknown 09/24/2023 9:01 PM EVICTION SPECIALIST 09/24/2023 10:11 PM EVICTION SPECIALIST Comment:Pre-op diagnosis: Diagnosis unknown [R69] Narrative [facility] - 11/05/2023 6:39 AM CDT Surgical Description: Right Hip Tissue Torrey Lafleur MD LAB - MICROBIOLOGY ORDERABLES Performing Organization Address [facility] Co de Phone Number [facility] [address] [place], [place] [address], [facility] [phone] * FL GUIDED NEEDLE PLACEMENT (09/24/2023 8:45 PM EVICTION SPECIALIST) Narrative [facility] - 09/25/2023 3:44 PM EVICTION SPECIALIST See Notes. Drew Lerma DO FLUOROSCOPY ORD ERABLES Performing Organization Address [facility] Co de Phone Number [facility] [address] [place] [address] * PATHOLOGY SMEAR BODY FLUID (09/24/2023 8:28 PM EVICTION SPECIALIST) Path Review Fluid Confirmed 09/25/2023 2:14 PM EVICTION SPECIALIST [facility] Fluid SYNOVIAL FLUID / Unknown Collection / Unknown 09/24/2023 8:28 PM EVICTION SPECIALIST 09/24/2023 10:10 PM EVICTION SPECIALIST Narrative [facility] - 09/25/2023 2:14 PM EVICTION SPECIALIST Final Diagnosis- Synovial fluid, right hip, aspiration time of arthroplasty: 1. 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 Test Performed By: Torrey Vargas MD 09/25/2023 ??2:06 PM Torrey Lafleur MD LAB - PATHOLOGY/CYT OLOGY ORDERABLES Performing Organization Address [facility] Co de Phone Number [facility] [address] [place] [phone] * DIFFERENTIAL MANUAL FLUID (09/24/2023 8:28 PM EVICTION SPECIALIST) Fluid Source Synovial 09/25/2023 2:14 PM EVICTION SPECIALIST [facility] Body Fluid Total Cell Count 100 x10E6/L 09/25/2023 2:14 PM EVICTION SPECIALIST [facility] Neutrophils Fluid Percent 81 % 09/25/2023 2:14 PM EVICTION SPECIALIST [facility] Lymphocytes Fluid Percent 17 % 09/25/2023 2:14 PM EVICTION SPECIALIST [facility] Macrophages Fluid Percent 2 % 09/25/2023 2:14 PM EVICTION SPECIALIST [facility] Fluid SYNOVIAL FLUID / Unknown Collection / Unknown 09/24/2023 8:28 PM EVICTION SPECIALIST 09/24/2023 10:10 PM EVICTION SPECIALIST Narrative [facility] - 09/25/2023 2:14 PM EVICTION SPECIALIST No reference ranges established for body fluid differential cell counts. ??The test results must be integrated into the clinical context for interpretation. Torrey Lafleur MD LAB - BODY FLUID OR DERABLES Performing Organization Address [facility] Co de Phone Number [facility] [address] [place] [phone] * CRYSTAL IDENTIFICATION FLUID (09/24/2023 8:28 PM EVICTION SPECIALIST) Fluid Type Synovial 09/24/2023 11:04 PM EVICTION SPECIALIST [facility] Crystals Fluid None None 09/24/2023 11:04 PM EVICTION SPECIALIST [facility] Fluid SYNOVIAL FLUID / Unknown Collection / Unknown 09/24/2023 8:28 PM EVICTION SPECIALIST 09/24/2023 10:10 PM EVICTION SPECIALIST Comment:Pre-op diagnosis: Diagnosis unknown [R69] Torrey Lafleur MD LAB - BODY FLUID OR DERABLES Performing Organization Address [facility] [facility] de Phone Number [facility] [address] [place] [address] [phone] * (ABNORMAL) CELL COUNT W DIFFERENTIAL FLUID (09/24/2023 8:28 PM EVICTION SPECIALIST) Fluid Source Synovial 09/25/2023 1:47 AM [facility] Fluid Appearance TURBID 09/25/2023 1:47 AM [facility] Fluid Color OTHER 09/25/2023 1:47 AM [facility] Total Nucleated Cells Fluid 98,920(H) <=200 x10E6/L 09/25/2023 1:47 AM [facility] RBC Count Fluid 40,000 Reference Range Not Established x10E6/L 09/25/2023 1:47 AM [facility] Fluid SYNOVIAL FLUID / Unknown Collection / Unknown 09/24/2023 8:28 PM EVICTION SPECIALIST 09/24/2023 10:10 PM EVICTION SPECIALIST Comment:Pre-op diagnosis: Diagnosis unknown [R69] Narrative [facility] - 09/25/2023 1:47 AM EVICTION SPECIALIST No reference ranges established for body fluid cell counts. Any reference ranges provided are derived from published literature. The test results must be integrated into the clinical context for interpretation. Torrey Lafleur MD LAB - BODY FLUID OR DERABLES Performing Organization Address [facility] Co de Phone Number [facility] [address] [place] [address] * (ABNORMAL) CULTURE FLUID+GRAM STAIN (09/24/2023 8:27 PM EVICTION SPECIALIST) Culture Rare Streptococcus agalactiae (Group B)(AA) MONALISA 09/28/2023 7:20 AM EVICTION SPECIALIST [facility] Gram Stain Heavy Polymorphonuclear cells 09/28/2023 7:20 AM EVICTION SPECIALIST [facility] Gram Stain No organisms seen 024 7:20 AM EVICTION SPECIALIST [facility] Microbiology SYNOVIAL FLUID / Unknown Collection / Unknown 09/24/2023 8:27 PM EVICTION SPECIALIST 09/24/2023 10:12 PM EVICTION SPECIALIST Comment:Pre-op diagnosis: Diagnosis unknown [R69] Narrative [facility] - 09/28/2023 7:20 AM EVICTION SPECIALIST Susceptibility testing of penicillin, other beta-lactam antibiotics, and vancomycin is not necessary for beta-hemolytic streptococci groups A,B,C and G because resistant strains have not been recognized. Refer to previously reported susceptibility testing, specimen number: [id number]. Torrey Lafleur MD LAB - MICROBIOLOGY ORDERABLES Performing Organization Address City/[facility] Co de Phone Number [facility] [address], [place] [phone] [place] [address] * ETT LINE PERFORMABLE (09/24/2023 8:25 PM EVICTION SPECIALIST) Narrative Nimco Ruvalcaba APRN-LIFE MANAGEMENT TEACHER - 09/24/2023 8:25 PM EVICTION SPECIALIST Nimco Ruvalcaba APRN-LIFE MANAGEMENT TEACHER ? 09/24/2023 ??8:25 PM Endotracheal Tube Placement: ? Patient Location: OR. Intubation Event Date/Time: ??09/24/2023 8:09 PM Procedure: intubation (76100). Procedure Section: ?? Sedation: under general anesthesia. Indications for Airway Management: ??anesthesia Induction: standard IV Patient Position: ??sniffing Mask Ventilation: easy with oral airway. Blade Type: Video (Glidescope) Blade Size: 4 Laryngoscopy View: grade 1 (full cords) Intubation Adjuncts: stylet and video laryngoscope Tube: endotracheal tube Placement: oral Tube type: cuff - inflated Tube Size (MM): 8 Depth of Insertion (CM): 23 Measured From: teeth Cuff volume (mL): ??7 Cuff Inflated With: air Number of Attempts: 1. Placement Verified By: direct visualization, bilateral breath sounds, chest auscultation and CO2 detector Tube secured with: ??adhesive tape. Dentition unchanged? ??Yes Difficult Airway? ??No. Procedure Start Time: 09/24/2023 8:09 PM. Staff Section ? Anesthesia Provider: Nimco Ruvalcaba APRN-LIFE MANAGEMENT TEACHER, Performed the procedure ? Provider #1: Charly Howard DO. Charly Howard DO GENERAL ANESTHESIA O RDERABLES * CT LOWER EXT RIGHT W CONTRAST (09/24/2023 2:41 PM EVICTION SPECIALIST) Anatomical Region Laterality Modality Lower Extremity Computed Tomogra phy 09/24/2023 2:53 PM EVICTION SPECIALIST Impressions 09/24/2023 2:57 PM EVICTION SPECIALIST IMPRESSION: Fluid or soft tissue thickening lateral to the right greater trochanter without rim-enhancing fluid collection. > Interpreting Provider: Leelee Kramer MD on 09/24/2023 2:57 PM Narrative 09/24/2023 2:57 PM EVICTION SPECIALIST PROCEDURE: ??CT LOWER EXT RIGHT W CONTRAST DATE/TIME OF EXAM: ??09/24/2023 2:51 PM CLINICAL INFORMATION: None relevant/not provided if blank. Indication: M25.551: Pain in right hip Additional History: COMPARISON: None. TECHNIQUE: CT of the right leg was performed utilizing standard protocol following administration of contrast. CT dose reduction technique was used, including Automated Exposure Control. IV CONTRAST: IOPAMIDOL 76 % IV SOLN:100 mL FINDINGS: A right hip arthroplasty is seen. There is resultant streak artifact. There is ill-defined fluid or soft tissue thickening in the subcutaneous fat and musculature lateral to the right greater trochanter. There is no rim-enhancing fluid collection. There is mild atherosclerosis. There is no evidence of deep venous thrombosis. There is no fracture. There are degenerative changes in the lower lumbar spine. The intrapelvic structures are normal in appearance. There is left hip arthritis. Procedure Note Leelee Kramer MD - 09/24/2023 PROCEDURE: CT LOWER EXT RIGHT W CONTRAST DATE/TIME OF EXAM: 09/24/2023 2:51 PM CLINICAL INFORMATION: None relevant/not provided if blank. Indication: M25.551: Pain in right hip Additional History: COMPARISON: None. TECHNIQUE: CT of the right leg was performed utilizing standard protocol following administration of contrast. CT dose reduction technique was used, including Automated ExposureControl. IV CONTRAST: IOPAMIDOL 76 % IV SOLN:100 mL FINDINGS: A right hip arthroplasty is seen. There is resultant streak artifact.There is ill-defined fluid or soft tissue thickening in the subcutaneous fatand musculature lateral to the right greater trochanter. There is no rim-enhancing fluid collection. There is mild atherosclerosis. There is no evidence of deep venous thrombosis. There is no fracture. There are degenerative changes in the lower lumbar spine. The intrapelvic structures are normal in appearance. There is left hip arthritis. IMPRESSION: Fluid or soft tissue thickening lateral to the right greater trochanter without rim-enhancing fluid collection. > Interpreting Provider: Leelee Kramer MD on 09/24/2023 2:57 PM Drew Lerma DO CT ORDERABLES * VAS RIGHT VENOUS DUPLEX LE (09/24/2023 1:37 PM EVICTION SPECIALIST) Anatomical Region Laterality Modality Lower Extremity Ultrasound 09/24/2023 3:44 PM EVICTION SPECIALIST Narrative Procedure Note Antonio Gillette MD - 09/24/[address] [address] Lower Extremity Venous Ultrasound Report Pat.Name: JOSE RUTLEDGE Pat.ID: [id number] St.Date: 09/24/2023 Refer.MD: Drew Lerma Exam Time: 3:44:00 PM Study Type:LE Venous Age: 9 1965,58Y Sex: MALE Sonogrphr: Cheryl Gaines RVT Pat. Stat.:Inpatient ICD - 9: M25.551 Reason for Study: Pain -Leg, right Procedures: Lower Extremity Venous - Right Race: 1 Visit ID: [id number] ++++++++++++++++++++++++++++++++++++ SUMMARY: ++++++++++++++++++++++++++++++++++++ Technically difficult study. No evidence of deep or superficial venous thrombosis of the right lower extremity is seen. ++++++++++++++++++++++++++++++++++++ FINDINGS: ++++++++++++++++++++++++++++++++++++ Procedure: Venous duplex imaging of the right lower extremity was performed using color flow and spectral Doppler analysis. The contralateral common femoral vein was also examined. Study Quality: Technically difficult exam due to patient positioning and body habitus. Rt Leg: All vessels of the right lower extremity seen appear patent and compressible. There was spontaneous and phasic flow seen in all the major veins of the right lower extremity. Appropriate augmentation with distal compression. No evidence of reflux with distal compression. Suboptimal visualization of right calf veins due to body habitus. The left common femoral vein demonstrated phasic and spontaneous flow. 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 There is no bone destruction. Minimal degenerative change of the knee joint is present. There is a small enthesophyte at the insertion of the quadriceps tendon. 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 There is no bone destruction. Minimal degenerative change of the kneejoint is present. There is a small enthesophyte at the insertion of the quadriceps tendon. > Interpreting Provider: Mitchell Zuniga MD on 09/24/2023 11:31 AM [facility] ORDERABLES * XR PELVIS 1 OR 2VW (09/24/2023 11:23 AM EVICTION SPECIALIST) Only the most recent of2 resultswithin the time period is included. Anatomical Region Laterality Modality Pelvis Radiographic Sabi ging 09/24/2023 11:3 0 AM EVICTION SPECIALIST Narrative 09/24/2023 11:31 AM EVICTION SPECIALIST PROCEDURE: ??XR PELVIS 1 OR 2VW, DATE/TIME OF EXAM: ??09/24/2023 11:23 AM, LOCATION ??[facility] INDICATION: M25.551: Pain in right hip AP pelvis 2 view HISTORY: Right femur pain. The patient has a history of infected arthroplasty. Since 09/11/2023 there is no change the appearance of a right hip arthroplasty. Prostatic elements are in normal alignment. There is no acute fracture or dislocation. Degenerative change of the left hip joint is unchanged. The visualized sacroiliac joints are normal and open. Soft tissues are grossly unremarkable. > Interpreting Provider: Mitchell Zuniga MD on 09/24/2023 11:31 AM Procedure Note Mitchell Zuniga MD - 09/24/2023 PROCEDURE: XR PELVIS 1 OR 2VW, DATE/TIME OF EXAM: 09/24/2023 11:23 AM, LOCATION [facility] INDICATION: M25.551: Pain in right hip AP pelvis 2 view HISTORY: Right femur pain. The patient has a history of infected arthroplasty. Since 09/11/2023 there is no change the appearance of a right hip arthroplasty. Prostatic elements are in normal alignment. There is noacute fracture or dislocation. Degenerative change of the left hip joint is unchanged. The visualized sacroiliac joints are normal and open. Soft tissues are grossly unremarkable. > Interpreting Provider: Mitchell Zuniga MD on 09/24/2023 11:31 AM [facility] ORDERABLES * (ABNORMAL) C-REACTIVE PROTEIN (09/24/2023 10:58 AM EVICTION SPECIALIST) Only the most recent of2 resultswithin the time period is included. Pathologist [facility] C-Reactive Protein 5.64(H) <=0.50 mg/dL 09/24/2023 12:23 PM EVICTION SPECIALIST [facility] Blood BLOOD SPECIMEN / Unknown Venipuncture / Unknown 09/24/2023 10:58 AM EVICTION SPECIALIST 09/24/2023 10:58 AM EVICTION SPECIALIST Drew Lerma DO LAB - CHEMISTRY ORDERABLES [facility] [address] [place] [address] * (ABNORMAL) ERYTHROCYTE SEDIMENTATION RATE (09/24/2023 10:58 AM EVICTION SPECIALIST) Only the most recent of2 resultswithin the time period is included. [facility] Erythrocyte Sedimentation Rate Automated 50(H) 0 - 20 MM/HR 09/24/2023 12:38 PM EVICTION SPECIALIST [facility] Blood BLOOD SPECIMEN / Unknown Venipuncture / Unknown 09/24/2023 10:58 AM EVICTION SPECIALIST 09/24/2023 10:58 AM EVICTION SPECIALIST Drew Lerma DO LAB - HEMATOLOG Y ORDERABLES Performing Organization Address City/[facility]/ZIP Co de Phone Number [facility] [address] [place] [address] * (ABNORMAL) DIFFERENTIAL MANUAL (09/24/2023 10:58 AM EVICTION SPECIALIST) Only the most recent of3 resultswithin the time period is included. Neutrophil % 82(H) 41 - 74 % 09/24/2023 11:46 AM [facility] Lymphocyte % 7(L) 17 - 47 % 09/24/2023 11:46 AM [facility] Monocyte % 11 3 - 11 % 09/24/2023 11:46 AM [facility] Neutrophil Absolute 9.68(H) 1.60 - 7.50 x10E9/L 09/24/2023 11:46 AM [facility] Lymphocyte Absolute 0.83(L) 1.00 - 4.40 x10E9/L 09/24/2023 11:46 AM [facility] Monocyte Absolute 1.30(H) 0.15 - 1.00 x10E9/L 09/24/2023 11:46 AM [facility] RBC Morphology NORMAL 09/24/2023 11:46 AM [facility] Blood BLOOD SPECIMEN / Unknown Venipuncture / Unknown 09/24/2023 10:58 AM EVICTION SPECIALIST 09/24/2023 10:58 AM EVICTION SPECIALIST [facility] LAB - HEMATOLOGY OR DERABLES [facility] [address] [place], [place] [phone] * PAIN MANAGEMENT PROCEDURE TIME (08/29/2023 12:23 PM EVICTION SPECIALIST) Anatomical Region Laterality Modality Radio Fluoroscop y Narrative 08/29/2023 1:28 PM EVICTION SPECIALIST Lefty Diamond MD ? 08/29/2023 ??1:31 PM 08/29/2023 ?? Fluoroscopically Guided and ultrasound guided ??right ??iliopsoas ?? Bursa Injection Dx: ??M16.10 - Osteoarthritis Hip Consent: The patient was identified in the holding area and the operative permit was explained and signed. ??I have discussed with the patient the risks, benefits, side effects and complications of a fluoroscopically guided hip iliopsoas bursa injection. ??I have answered the patient's questions regarding the procedure and have given the patient the opportunity to refuse the procedure. ??I also have discussed alternative methods of treatment. ??The patient stated understanding of the procedure and wished to proceed with a fluoroscopically guided ??injection. Monitoring: The patient was taken to the fluoroscopic suite and placed on a C-arm table in the supine position. ??Noninvasive blood pressure, pulse oximetry, and an EKG tracing were used to monitor the patient continuously throughout the procedure. ??A nurse was in attendance for the duration of the procedure to carefully monitor the patient. ??Please refer to the nursing record for vital sign documentation and for any doses of sedatives and medications. ?? I was present and gave the order for any medications given to the patient. Preparation: A sterile Chloroprep preparation and then a sterile drape were applied to the anterolateral groin and hip area. ??the p[atient received 2 grams of IV ancef 30 minutes prior to procedure Procedure: The right iliopsoas bursa injection was performed ?Using fluoroscopic guidance, a 22 gauge 7 inch needle was carefully guided into approximation with the iliopsoas bursa Ultrasound confirmed position medial to the hip hardware care was taken to avoid contact with the hardware nd 0.5 cc of Omnipaque (240mg/cc) was injected. Bursa spread was confirmed under direct fluoroscopy. ?? There were no signs of intravascular injection with careful aspiration of the needle. ??A preservative free solution of 10 mg dexamethasone and 5 cc 1 % lidocaine was injected into the iliopsoas bursa ?? The needle was removed intact. ??The patient tolerated the procedure well and there were no complications. ?? Recovery: The patient was taken to the recovery area where they remained in stable condition. Postprocedure instructions were given to the patient and a follow up appointment was confirmed. The patient was also discharged with information on how to reach the clinic or equipment installation professional physician at anytime for questions or complaints Lefty Diamond MD DIAGNOSTIC IMAGING O [facility] * CARDIAC EKG ORDER (12/25/2022 2:20 PM CDT) Narrative 12/25/2022 2:20 PM CDT Ordered by an unspecified provider. Scanned Document CARDIAC SERVICES ORD ERABLES * HELICOBACTER PYLORI UREASE (STL) (12/15/2022 5:53 PM CDT) Helicobacter pylori Urease Initial Negative Negative 12/16/2022 7:11 PM CDT [facility] Helicobacter pylori Urease Final Negative Negative 12/16/2022 7:11 PM CDT [facility] Microbiology GASTRIC BIOPSY SPECIMEN / Unknown 12/15/2022 5:53 PM CDT 12/15/2022 6:43 PM CDT Diego León MD LAB - MICROBIOLOGY O [facility] [address] [place] [address] * EGD (12/15/2022 5:34 PM CDT) Report Endoscopy POC _ Patient Name: Jose Rutledge ? Procedure Date: 12/15/2022 5:34 PM ? Date of : 1965 ?Admit Type: Inpatient Age: 57 ? Gender: Male Ethnicity: Not or ? Race: White Attending MD: Diego León MD, [id number] _ Procedure: ? Upper GI endoscopy Indications: ? Acute post hemorrhagic anemia, Melena Providers: ? Diego León MD (Doctor), Juliana Elise RN, John ? ANA Feliciano Referring MD: ?Faisal Richardson (Referring ) Medicines: ? Monitored Anesthesia Care Complications: ? No immediate complications. Estimated blood loss: ? Minimal. _ Estimated Blood Loss: ? Estimated blood loss was minimal. Procedure: ? Pre-Anesthesia Assessment: ? - Prior to the procedure, a History and Physical was ? performed, and patient medications and allergies were ? reviewed. The patient's tolerance of previous ? anesthesia was also reviewed. The risks and benefits ? of the procedure and the sedation options and risks ? were discussed with the patient. All questions were ? answered, and informed consent was obtained. Prior ? Anticoagulants: The patient has taken no anticoagulant ? or antiplatelet agents. ASA Grade Assessment: III - A ? patient with severe systemic disease. After reviewing ? the risks and benefits, the patient was deemed in ? satisfactory condition to undergo the procedure. ? After obtaining informed consent, the endoscope was ? passed under direct vision. Throughout the procedure, ? the patient's blood pressure, pulse, and oxygen ? saturations were monitored continuously. The Endoscope ? was introduced through the mouth, and advanced to the ? second part of duodenum. The upper GI endoscopy was ? accomplished without difficulty. The patient tolerated ? the procedure well. ? Impression: ?- Normal esophagus. ? - Gastritis. Biopsied. ? - Non-bleeding gastric ulcers with no stigmata of ? bleeding. ? - Normal examined duodenum. Findings: ? The esophagus was normal. ? Diffuse moderate inflammation characterized by congestion (edema) and ? erythema was found in the gastric antrum. Biopsies were taken with a ? cold forceps for Helicobacter pylori testing using CLOtest. Estimated ? blood loss was minimal. ? Three non-bleeding cratered gastric ulcers with no stigmata of bleeding ? were found in the gastric antrum. The largest lesion was 10 mm in ? largest dimension. ? The examined duodenum was normal. _ Recommendation: ?- Patient has a contact number available for ? emergencies. The signs and symptoms of potential ? delayed complications were discussed with the patient. ? Return to normal activities tomorrow. Written ? discharge instructions were provided to the patient. ? - Resume previous diet. ? - Continue present medications. ? - Follow up emily-test and treat as appropriate. ? Procedure Code(s): ? --- Professional --- ? 39853, Esophagogastroduod enoscopy, flexible, transoral; with biopsy, ? single or multiple ? --- Technical --- ? 48364, Esophagogastroduod enoscopy, flexible, transoral; with biopsy, ? single or multiple Diagnosis Code(s): ? --- Professional --- ? K29.70, Gastritis, unspecified, without bleeding ? K25.9, Gastric ulcer, unspecified as acute or chronic, without ? hemorrhage or perforation ? D62, Acute posthemorrhagic anemia ? K92.1, Melena (includes Hematochezia) ? --- Technical --- ? K29.70, Gastritis, unspecified, without bleeding ? K25.9, Gastric ulcer, unspecified as acute or chronic, without ? hemorrhage or perforation ? D62, Acute posthemorrhagic anemia ? K92.1, Melena (includes Hematochezia) CPT copyright 2020 [employer]. All rights reserved. The codes documented in this report are preliminary and upon on site coordinator review may be revised to meet current compliance requirements. Diego León MD 12/15/2022 6:12:03 PM This report has been signed electronically. Number of Addenda: 0 Note Initiated On: 12/15/2022 5:34 PM [facility] 12/15/2022 5:34 PM CDT Diego León MD GI PROCEDURE ORDERAB LES [facility] * (ABNORMAL) RENAL FUNCTION PANEL (12/15/2022 6:44 AM CDT) Glucose 103 70 - 105 mg/dL 12/15/2022 8:14 AM CDT [facility] Sodium 136 136 - 145 mmol/L 12/15/2022 8:14 AM CDT [facility] Potassium 3.8 3.5 - 5.1 mmol/L 12/15/2022 8:14 AM CDT [facility] Chloride 105 98 - 107 mmol/L 12/15/2022 8:14 AM CDT [facility] CO2 22(L) 23 - 31 mmol/L 12/15/2022 8:14 AM CDT [facility] Calcium 8.8 8.4 - 10.4 mg/dL 12/15/2022 8:14 AM CDT [facility] Anion Gap 9 8 - 18 mmol/L 12/15/2022 8:14 AM CDT [facility] BUN 12 8.4 - 25.7 mg/dL 12/15/2022 8:14 AM CDT [facility] Creatinine 0.82 0.72 - 1.25 mg/dL 12/15/2022 8:14 AM CDT [facility] Albumin 3.5 3.5 - 5.2 gm/dL 12/15/2022 8:14 AM CDT [facility] Phosphorus 3.0 2.3 - 4.7 mg/dL 12/15/2022 8:14 AM CDT [facility] eGFR by CKD-EPI >90 >=90 mL/min/1.7 3 m2 12/15/2022 8:14 AM CDT [facility] Blood BLOOD SPECIMEN / Unknown Lab Venipuncture / Unknown 12/15/2022 6:44 AM CDT 12/15/2022 7:37 AM CDT Nancy Bianchi MD LAB - CHEMISTRY O [facility] [address] [place] [id number] * FOLATE (12/15/2022 6:44 AM CDT) Pathologist [facility] Folate 17.9 7.0 - 31.4 ng/mL 12/15/2022 8:50 AM CDT [facility] Blood BLOOD SPECIMEN / Unknown Lab Venipuncture / Unknown 12/15/2022 6:44 AM CDT 12/15/2022 7:37 AM CDT Nancy Bianchi MD LAB - CHEMISTRY O [facility] Performing Organization Address City/[facility]/ZIP Co de Phone Number [facility] [address] [place] [phone] * VITAMIN B12 (12/15/2022 6:44 AM CDT) Pathologist [facility] Vitamin B12 334 213 - 816 pg/mL 12/15/2022 8:50 AM CDT [facility] Blood BLOOD SPECIMEN / Unknown Lab Venipuncture / Unknown 12/15/2022 6:44 AM CDT 12/15/2022 7:37 AM CDT Nancy Bianchi MD LAB - CHEMISTRY O RDERAAILYN Performing Organization Address City/[facility]/ZIP Co de Phone Number [facility] [address] [place] [phone] * IRON + TRANSFERRIN PANEL (12/15/2022 6:44 AM CDT) [facility] Iron 65 65 - 175 ug/dL 12/15/2022 8:14 AM CDT [facility] Transferrin 217 174 - 364 mg/dL 12/15/2022 8:14 AM CDT [facility] TIBC Calculated 271 240 - 450 ug/dL 12/15/2022 8:14 AM CDT [facility] Iron Saturation % 24 20 - 50 % 12/15/2022 8:14 AM CDT [facility] Blood BLOOD SPECIMEN / Unknown Lab Venipuncture / Unknown 12/15/2022 6:44 AM CDT 12/15/2022 7:37 AM CDT Nancy Bianchi MD LAB - CHEMISTRY O RDERABLES Performing Organization Address City/[facility]/ZIP Co de Phone Number [facility] [address] [place], [place] [phone] * FERRITIN (12/15/2022 6:44 AM CDT) [facility] Ferritin 102 22 - 275 ng/mL 12/15/2022 8:50 AM CDT [facility] Blood BLOOD SPECIMEN / Unknown Lab Venipuncture / Unknown 12/15/2022 6:44 AM CDT 12/15/2022 7:37 AM CDT Nancy Bianchi MD LAB - CHEMISTRY O RDALEKS Performing Organization Address City/[facility]/ZIP Co de Phone Number [facility] [address] [place] [address] * TRANSFUSE RED BLOOD CELL LEUKOREDUCED UNIT(S) (12/15/2022 4:58 AM CDT) Nancy Bianchi MD NURSING - BLOOD P PAU TRANSFUSION * PREPARE (CROSSMATCH) RBC UNIT(S), 1 Units (12/15/2022 1:50 AM CDT) Only the most recent of2 resultswithin the time period is included. [facility] Unit Description AS1 LR PRBC [facility] Unit ABO O [facility] Unit Rh POS [facility] Product Number R02 [facility] Unit Donor # [id number] [facility] Unit Status transfused [facility] Product Code [id number] [facility] Blood Type Barcode 5100 [facility] Expiration Date [id number] [facility] Blood Bank BLOOD SPECIMEN / Unknown 12/14/2022 8:03 PM CDT Nancy Bianchi MD LAB - BLOOD BANK ORDERABLES Performing Organization Address [facility] Co de Phone Number [facility] [address] [place] [address] * TYPE + SCREEN PANEL (12/14/2022 7:33 PM CDT) Only the most recent of3 resultswithin the time period is included. ABO Rh O POS 12/14/2022 8:48 PM CDT [facility] Comment:History checked. Antibody Screen NEG 8:48 PM CDT [facility] Blood Bank BLOOD SPECIMEN / Unknown Lab Venipuncture / Unknown 12/14/2022 7:33 PM CDT 12/14/2022 8:03 PM CDT Nancy Bianchi MD LAB - BLOOD BANK ORDERABLES Performing Organization Address [facility] Co de Phone Number [facility] [address] [place] [address] * PT-INR (12/14/2022 7:33 PM CDT) PT 13.7 12.1 - 14.8 sec 12/14/2022 8:16 PM CDT [facility] INR 1.1 0.9 - 1.1 12/14/2022 8:16 PM CDT [facility] Blood BLOOD SPECIMEN / Unknown Lab Venipuncture / Unknown 12/14/2022 7:33 PM CDT 12/14/2022 8:03 PM CDT Narrative [facility] - 12/14/2022 8:16 PM CDT Conventional Warfarin Anticoagulant Therapy: INR Reference Range: ??2.0-3.0 Intensive Warfarin Anticoagulant Therapy: INR Reference Range: ? 2.5-3.5 Nancy Bianchi MD LAB - COAGULATION ORDERABLES Performing Organization Address [facility] Co de Phone Number [facility] [address] [place] [phone] * PHOSPHORUS BLOOD (12/14/2022 7:33 PM CDT) Only the most recent of3 resultswithin the time period is included. Phosphorus 3.5 2.3 - 4.7 mg/dL 12/14/2022 8:21 PM CDT [facility] Blood BLOOD SPECIMEN / Unknown Lab Venipuncture / Unknown 12/14/2022 7:33 PM CDT 12/14/2022 8:03 PM CDT Nancy Bianchi MD LAB - CHEMISTRY O RDERABLES Performing Organization Address [facility] de Phone Number [facility] [address] [place], [place] [phone] * MAGNESIUM BLOOD (12/14/2022 7:33 PM CDT) Only the most recent of3 resultswithin the time period is included. Magnesium 1.7 1.6 - 2.6 mg/dL 12/14/2022 8:21 PM CDT [facility] Blood BLOOD SPECIMEN / Unknown Lab Venipuncture / Unknown 12/14/2022 7:33 PM CDT 12/14/2022 8:03 PM CDT Nancy Bianchi MD LAB - CHEMISTRY O RDERAAILYN Performing Organization Address [facility] Co de Phone Number [facility] [address] [place] [phone] * APHERESIS/TRANSFUSION ORDER (12/11/2022 9:12 PM CDT) Narrative 12/11/2022 9:12 PM CDT Ordered by an unspecified provider. Scanned Document NURSING - VITAL SIGN S AND ASSESSMENT * FL ABBIE SURGERY (12/08/2022 2:15 PM CDT) Narrative [facility] - 12/08/2022 2:16 PM CDT For details of this study, please see the providers note. Torrey Lafleur MD FLUOROSCOPY ORDERAB LES [facility] [address] [place] [address] * (ABNORMAL) BLOOD GASES ART + LYTES GLU CA+ HH (ISTAT) (12/08/2022 1:29 PM CDT) Only the most recent of2 resultswithin the time period is included. pH Arterial POCT 7.35 7.35 - 7.45 pH 12/13/2022 9:37 AM [facility] pCO2 Arterial 41.6 35 - 45 mm hg 12/13/2022 9:37 AM [facility] pO2 Arterial 300(H) 80 - 100 mm hg 12/13/2022 9:37 AM [facility] HCO3 Arterial POCT 23.2 22 - 26 mmol/L 12/13/2022 9:37 AM [facility] BE Arterial -2 -2 - 2 mmol/L 12/13/2022 9:37 AM [facility] TCO2 Arterial Calc POCT 24 23 - 27 mmol/L 12/13/2022 9:37 AM [facility] O2 Saturation Arterial 100 90 - 100 % 12/13/2022 9:37 AM [facility] Sodium Arterial 135(L) 136 - 145 mmol/L 12/13/2022 9:37 AM [facility] Potassium Arterial 4.1 3.5 - 5.1 mmol/L 12/13/2022 9:37 AM [facility] Calcium Ionized Arterial POCT 1.19 1.12 - 1.32 mmol/L 12/13/2022 9:37 AM [facility] Glucose Arterial POCT 213(H) 74 - 106 mg/dL 12/13/2022 9:37 AM [facility] Hemoglobin Arterial POCT 9.2(L) 12.0 - 17.6 gm/dL 12/13/2022 9:37 AM CDT [facility] Hematocrit Arterial POCT 27.0(L) 35.2 - 51.7 % 12/13/2022 9:37 AM CDT [facility] Site R Radial 12/13/2022 9:37 AM CDT [facility] Sample iSTAT ART 12/13/2022 9:37 AM CDT [facility] Blood, arterial ARTERIAL BLOOD SPECIMEN / Unknown 12/08/2022 1:29 PM CDT 12/13/2022 9:37 AM CDT Torrey Lafleur MD LAB - POINT OF CARE ORDERABLES Performing Organization Address City/State/[facility] Co de Phone Number [facility] [address] [place] [address] * ETT LINE PERFORMABLE (12/08/2022 11:15 AM CDT) Narrative Roxanne Oliver APRN-CRNA - 12/08/2022 11:15 AM CDT Roxanne Oliver APRN-CRNA ? 12/08/2022 11:16 AM Endotracheal Tube Placement: ? Patient Location: OR. Intubation Event Date/Time: ??12/08/2022 10:42 AM Procedure: intubation (87051). Procedure Section: ?? Sedation: under general anesthesia. Indications for Airway Management: ??anesthesia Induction: standard IV Patient Position: ??sniffing Mask Ventilation: easy with oral airway. Blade Type: Sujey Blade Size: 4 Laryngoscopy View: grade 2 (partial cords) Intubation Adjuncts: stylet and cricoid pressure Tube: endotracheal tube Placement: oral Tube type: cuff - inflated Tube Size (MM): 8 Depth of Insertion (CM): 22 Measured From: teeth Cuff volume (mL): ??5 Cuff Inflated With: air Number of Attempts: 1. Placement Verified By: direct visualization, bilateral breath sounds, chest auscultation and CO2 monitor Tube secured with: ??adhesive tape. Difficult Airway? ??No. Procedure Start Time: 12/08/2022 10:42 AM. Staff Section ? Anesthesia Provider: Oliver, Roxanne A, HISTOLOGIST TECHNOLOGIST-LIFE MANAGEMENT TEACHER, Performed the procedure Additional Comments: Dentition/oral mucosa unchanged from pre op exam following DVOI.. Sunitha Fung MD GENERAL ANESTHESIA O CHERISE * ARTERIAL LINE PERFORMABLE (12/08/2022 9:56 AM CDT) Narrative Sunitha Fung MD - 12/08/2022 9:56 AM CDT Sunitha Fung MD ? 12/08/2022 10:24 AM Arterial Line Placement Procedure Note Patient Location: OR. Procedure: Arterial Line (46090). Procedure Section ?? Indications: continuous blood pressure monitoring and other - please comment (intraoperative monitoring). Consent: informed consent was obtained for the procedure, including sedation, risks of hemorrhage, hematoma, infection and adverse drug reactions were discussed and a time out was performed for patient safety. Alternatives Discussed: ??no treatment Skin Prep: alcohol. Orientation: Right. Site: radial. Site Identification: palpation and other - please comment (ultrasound guidance). Sterile Technique: cap and mask (procedure gloves). ? Local Types: lidocaine (XYLOCAINE MPF) 1 % injection, 0.5 mL. Gauge: 18. Catheter Type: Arrow. Seldinger Technique Used? ??Yes Number of Attempts: 1. Line Secured with: tape and Tegaderm. Procedure Tolerance: tolerated well, no immediate complications and performed while the patient was sedated. Events: none. Procedure Start Time: 12/08/2022 9:56 AM. Procedure End Time: 12/08/2022 10:06 AM. Procedure Total Time: 10 ??minutes. Patient Sedated? ??Yes Local Anesthetic Used? ??Yes ? Sedation Agents: midazolam (VERSED) injection, 2 mg Sedation Types: mild Staff Section ? Anesthesia Provider: Sunitha Fung MD, Performed the procedure Sunitha Fung MD GENERAL ANESTHESIA O CHERISE * CULTURE MSSA/MRSA (11/27/2022 9:50 AM CDT) Pathologist [facility] Culture Negative for Staphylococcus aureus (MRSA/MSSA) 11/28/2022 5:14 PM CDT [facility] MICRO[facility] Microbiology SPECIMEN FROM NASAL FOSSAE / Unknown Collection / Unknown 11/27/2022 9:50 AM CDT 11/27/2022 10:14 AM CDT Torrey Lafleur MD LAB - MICROBIOLOGY ORDERABLES Performing Organization Address City/State/[facility] Co tx Phone Number [facility] MICROBIOLOGY [address] [place] [address], [facility] [phone] * URINALYSIS REFLEX MICROSCOPIC REFLEX CULTURE (11/27/2022 9:50 AM CDT) Color UA Yellow Straw, Yellow 11/27/2022 10:24 AM CDT [facility] Clarity UA Clear Clear 11/27/2022 10:24 AM CDT [facility] Glucose UA Negative Negative 11/27/2022 10:24 AM CDT [facility] Bilirubin UA Negative Negative 11/27/2022 10:24 AM CDT [facility] Ketone UA Negative Negative 11/27/2022 10:24 AM CDT [facility] Specific Kirwin UA 1.019 1.005 - 1.030 11/27/2022 10:24 AM CDT [facility] Blood UA Negative Negative 11/27/2022 10:24 AM CDT [facility] pH UA 5.0 5.0 - 8.0 pH 11/27/2022 10:24 AM CDT [facility] Protein UA Negative Negative 11/27/2022 10:24 AM CDT [facility] Urobilinogen UA Negative Negative mg/dL 11/27/2022 10:24 AM CDT [facility] Nitrite UA Negative Negative 11/27/2022 10:24 AM CDT [facility] Leukocyte UA Negative Negative 11/27/2022 10:24 AM CDT [facility] Urine Microscopy Urine microscopy not indicated 11/27/2022 10:24 AM CDT [facility] Reflex Status Culture not indicated 11/27/2022 10:24 AM CDT [facility] Urine URINE SPECIMEN OBTAINED BY CLEAN CATCH PROCEDURE / Unknown Collection / Unknown 11/27/2022 9:50 AM CDT 11/27/2022 10:13 AM CDT Narrative [facility] - 11/27/2022 10:24 AM CDT Torrey Lafleur MD LAB - URINALYSIS OR DERABLES Performing Organization Address City/[facility]/ZIP Co de Phone Number [facility] [address] [place] [address] * TRANSFERRIN (11/27/2022 9:50 AM CDT) [facility] Transferrin 272 174 - 364 mg/dL 11/27/2022 10:52 AM CDT [facility] Blood BLOOD SPECIMEN / Unknown Venipuncture / Unknown 11/27/2022 9:50 AM CDT 11/27/2022 10:14 AM CDT Torrey Lafleur MD LAB - CHEMISTRY ORD ERABLES Performing Organization Address [facility] de Phone Number [facility] [address] [place] [address] * FRUCTOSAMINE (11/27/2022 9:50 AM CDT) [facility] Fructosamine 267 0 - 285 umol/L 11/28/2022 4:07 AM CDT [facility] ([facility]) Comment: Published reference interval for apparently healthy subjects between age 20 and 60 is 205 - 285 umol/L and in a poorly controlled diabetic population is 228 - 563 umol/L with a mean of 396 umol/L. Blood BLOOD SPECIMEN / Unknown Venipuncture / Unknown 11/27/2022 9:50 AM CDT 11/27/2022 10:14 AM CDT Narrative [facility] ([facility]) - 11/28/2022 4:07 AM CDT Performed at: ??01 - [facility] [address] ??[id number] Track Layer: Chay Schwartz PhD, Phone: ??[phone] Torrey Lafleur MD LAB - CHEMISTRY ORD ERABLES Performing Organization Address City/[facility]/ZIP Co de Phone Number [facility] ([facility]) [address] [place] [address] * GLUCOSE ACCUCHECK (09/15/2014 9:42 AM EVICTION SPECIALIST) Only the most recent of9 resultswithin the time period is included. [facility] Glucose, Fingerstick 112 70-115mg/d L mg/dL [facility] RALS (BEAKER) Comment: Physician Notified Manager Hris: FERNIE CASTELLANOS) ??LUBA 09/15/2014 9:42 AM EVICTION SPECIALIST Monika Vang MD LAB - CHEMISTRY [facility] * (ABNORMAL) HEMOGLOBIN (07/16/2014 2:33 PM EVICTION SPECIALIST) Only the most recent of5 resultswithin the time period is included. Hemoglobin 8.7(L) 13.5 - 17.5 g/dL [facility] Blood specimen (specimen) BLOOD SPECIMEN / Unknown 07/16/2014 2:33 PM EVICTION SPECIALIST 07/16/2014 2:39 PM EVICTION SPECIALIST Marcus Romero MD LAB - HEMATOLOGY VARINDER FINK [address] [phone] * CROSSMATCH RBC LEUKOREDUCED (07/15/2014 12:15 AM EVICTION SPECIALIST) Pathologist [facility] Unit RBC-WBCD [id number] transfused [facility] BLOOD BANK PRODUCTS (BEAKER) Unit ABO O H BLOOD BANK PRODUCTS (BEAKER) Unit Rh POS [facility]OD B[facility] PRODUCTS (BEAKER) Unit Number [id number] [facility] BLOOD BANK PRODUCTS (BEAKER) Unit Status Transfused [facility] BLO OD BANK PRODUCTS (BEAKER) Unit RBC-WBCD [id number] transfused [facility] BLOOD BANK PRODUCTS (BEAKER) Unit ABO O [facility] BLOOD BANK PRODUCTS (BEAKER) Unit Rh POS [facility] BLOOD BANK PRODUCTS (BEAKER) Unit Number [id number] [facility] BLOOD BANK PRODUCTS (BEAKER) Unit Status Transfused [facility] BLO OD BANK PRODUCTS (BEAKER) 07/15/2014 12:1 5 AM EVICTION SPECIALIST 07/15/2014 12:33 AM EVICTION SPECIALIST Narrative [facility] BLOOD BANK PRODUCTS (BEAKER) - 07/15/2014 12:15 AM EVICTION SPECIALIST # of Units->2 Marcus Romero MD LAB - BLOOD BANK ORD ERAAILYN Performing Organization Address [facility] de Phone Number [facility] BLOOD BANK PRODUCTS (JOHN) * HELICOBACTER PYLORI ANTIBODY IGG (07/15/2014 12:15 AM EVICTION SPECIALIST) Helicobacter pylori Antibody IgG <0.9 0.0 - 0.8 U/mL [facility] (JOHN) Comment: ? Negative ?<0.9 ? Indeterminate ??0.9 - 1.0 ? Positive ?>1.0 Blood specimen (specimen) 07/15/2014 12:15 AM EVICTION SPECIALIST 07/15/2014 12:24 AM EVICTION SPECIALIST Narrative [facility] LAKESHIA) - 07/16/2014 5:14 PM EVICTION SPECIALIST Performed at: ??01 - [address] ??[id number] Track Layer: Marlon Varma PhD, Phone: ??[phone] Marcus Romero MD LAB - CHEMISTRY BENJA DICK Performing Organization Address [facility] de Phone Number [facility] (JOHN) * PATHOLOGY TISSUE (07/14/2014 4:46 PM EVICTION SPECIALIST) Surgical Pathology Tissue CLINICAL HISTORY: Melena. OPERATIVE PROCEDURE: ??EGD with biopsy, random gastric biopsies. OPERATIVE FINDINGS: ??Pyloric ulcer. FINAL DIAGNOSIS: STOMACH, RANDOM GASTRIC BIOPSY: ?- ??SUPERFICIAL GASTRIC MUCOSA WITH NO PATHOLOGIC DIAGNOSIS GROSS DESCRIPTION: Received in a container of formalin, labeled Jose Rutledge and random gastric biopsy , are three pieces of soft, mohan-white tissue ranging in greatest dimension from 0.1 to 0.2 cm. ??The specimen is filtered and submitted entirely in cassette A1. TAYLOR for MN/edk MICROSCOPIC DESCRIPTION: Sections show superficial fragments of foveolar glands without significant inflammation or reactive changes. ??No H. pylori organisms are seen on H&E. ??There is no intestinal metaplasia or dysplasia. MH/edk The performance characteristics of all immunohistochemical and indirect immunofluorescence stains (if any) cited in this report were determined by the Histopathology Laboratory of [facility].?? Some of these tests were developed by our own laboratory and have not been cleared or approved by the US Food and Drug Administration.?The FDA does not require this test to go through premarket FDA review.?These tests are used for clinical purposes. They should not be regarded as investigational or for research.?? This laboratory is certified under the Clinical Laboratory Improvement Amendments (CLIA) as qualified to perform high complexity clinical laboratory testing. This case has been personally reviewed and interpreted by the attending (teaching) pathologist. Final Diagnosis performed by Marguerite Anand M.D. Electronically signed 07/16/2014 [facility] (JOHN) Other (qualifier value) GASTRIC CONTENTS SPECIMEN / Unknown 07/14/2014 4:46 PM EVICTION SPECIALIST 07/15/2014 7:38 AM EVICTION SPECIALIST Narrative [facility] (JOHN) - 07/16/2014 3:52 PM EVICTION SPECIALIST PRE-OP DIAGNOSIS: ??melena OPERATIVE PROCEDURE / FINDINGS: ??Procedure(s) with comments: EGD EGD W/BIOPSY - pyloric ulcer, random gastric biopsies, POST-OP DIAGNOSIS: * No post-op diagnosis entered * Collection Date->07/14/14 Collection Time-> 4:46 PM Specimen A->Gastric random biopsies, eval HPylori Marcus Romero MD LAB - PATHOLOGY/CYTO LOGY ORDERABLES [facility] (JOHN) * PTT [facility] (07/14/2014 1:59 PM EVICTION SPECIALIST) APTT 24.7 23.0 - 38.4 Seconds [facility] Comment:Suggested therapeuti c range for full dose I.V. heparin therapy for venous thromboembolism is 66.0-91.0 seconds. Blood specimen (specimen) BLOOD SPECIMEN / Unknown 07/14/2014 1:59 PM EVICTION SPECIALIST 07/14/2014 2:02 PM EVICTION SPECIALIST [facility] - 07/14/2014 2:14 PM EVICTION SPECIALIST Is patient on Heparin, Argatroban or Dabigatran?->N Marcus Romero MD LAB - COAGULATION OR DERABLES Performing Organization Address [facility] Co de Phone Number [address] [phone] * (ABNORMAL) PT-INR U (07/14/2014 1:59 PM EVICTION SPECIALIST) PT 15.0(H) 12.1 - 14.8 Seconds [facility] INR 1.2 See Comment [facility] Comment: Suggested therapeutic range for low-intensity coumadin therapy for venous thromboembolism prophylaxis is an INR of 2.0-3.0. ??For high risk patients (Mitral Valve Prosthesis, Atrial Fibrillation, history of TIA/stroke), suggested prophylactic therapeutic range is an INR of 2.5-3.5. Blood specimen (specimen) BLOOD SPECIMEN / Unknown 07/14/2014 1:59 PM EVICTION SPECIALIST 07/14/2014 2:02 PM EVICTION SPECIALIST [facility] - 07/14/2014 2:13 PM EVICTION SPECIALIST Is patient on Heparin, Argatroban or Dabigatran?->N Marcus Romero MD LAB - COAGULATION OR DERABLES Performing Organization Address [facility] de Phone Number [address] [phone] * (ABNORMAL) LACTIC ACID BLOOD (07/14/2014 1:59 PM EVICTION SPECIALIST) Lactic Acid-Stat 2.6(H) 0.5 - 2.2 mmol/L [facility] Blood specimen (specimen) BLOOD SPECIMEN / Unknown 07/14/2014 1:59 PM EVICTION SPECIALIST 07/14/2014 2:02 PM EVICTION SPECIALIST Marcus Romero MD LAB - CHEMISTRY BENJA DICK [address] [phone] Care Teams Equipment Operator Relationship Specialty Start Date End Date Faisal Richardson DO [address] [place] [address] PCP - General Family Medicine 11/27/22
--- OUTSIDE RECORDS SUMMARY | 2024-07-28 00:56 | XMS_ITS | Encounter Summary ---
Author Organization [facility] Address [address] [facility] [place] [address] Care Team Providers Care Management Manager Name Role Phone BonnieFaisal klein Primary Care Provider [phone] Encounter Details Date Type Department Care Team (Latest Contact Info) Description 01/16/2024 Travel Social History Tobacco Use Types Packs/Day Years [...] Recorded Patient Health Questionnaire-2 Score 4 01/15/2024 [facility] ional [facility] - Occupational Stress [...] [facility] - Orthopedic Surgery [address] [place] [id number] Torrey Lafleur MD [address] [facility] [address] [place] [address] documented as of this encounter Visit Diagnoses Not on filedocumented in this encounter Care Teams Management Manager Relationship Specialty Start Date End Date Faisal Richardson DO [address] [place] [address] PCP - General Family Medicine 11/27/22 documented as of this encounter
--- OUTSIDE RECORDS SUMMARY | 2024-07-28 00:56 | XMS_ITS | Encounter Summary ---
Author Organization [facility] Address [address] [facility] [place] [address] Care Team Providers Care Documentation Liaison Name Role Phone Faisal Richardson DO Primary Care Provider [phone] Encounter Details Date Type Department Care Team (Latest Contact Info) Description 01/16/2024 9:36 AM CDT - 01/16/2024 11:59 PM CDT Hospital Encounter [facility] [address], [address] [place] [phone] Torrey Lafleur MD [address] [place], [place] [phone] Discharge Disposition: Home or Self Care Social [...] Recorded Patient Health Questionnaire-2 Score 4 01/15/2024 [facility] [place] of Occupat ional Health - Occupational Stress [...] place to sleep or slept in a half-way (including now)? No 10/17/2023 Sex and Gender [...] by mouth once daily 30 tablet 10/05/2023 Bacillus Coagulans-Inulin (Probiotic) 1-250 BILLION-MG CAPS buPROPion [...] MG/0.5ML injection 10/17/2021 ergocalciferol (Drisdol) 1.25 MG (44171 UT) capsule Take 1 (one) capsule by [...] Description 01/20/2025 10:00 AM CDT Office Visit [facility] - Orthopedic Surgery [address] [place] [address] Torrey Lafleur MD [address] [address] documented as of this encounter Procedures Procedure Name Priority Date/Time Associated Diagnosis Comments XR PELVIS W RIGHT HIP 2VW Routine 01/16/2024 9:39 AM CDT S/P revision of total hip documented in this encounter Results * XR PELVIS W RIGHT HIP 2VW (01/16/2024 9:39 AM CDT) Anatomical Region Laterality Modality Pelvis Radiographic Sabi ging 01/16/2024 11:0 3 AM CDT Narrative 01/16/2024 11:05 AM CDT Procedure: XR PELVIS W RIGHT HIP 2VW ??Exam Date: ??01/16/2024 9:39 AM ?? Location: ??[facility] Indication: Z96.649: Presence of unspecified artificial hip [...] 2VW Exam Date: 01/16/2024 9:39 AM Location: [facility] Indication: Z96.649: Presence of unspecified artificial hip [...] means documented in this encounter Care Teams Documentation Liaison Relationship Specialty Start Date End Date Faisal Richardson DO [address] [place] [address] PCP - General Family Medicine 11/27/22 documented as of this encounter
--- OUTSIDE RECORDS SUMMARY | 2024-07-28 00:56 | XMS_ITS | Clinical Summary ---
Author Organization [facility] Address [address] [facility] [place] [address] Care Team Providers Care Deputy Sheriff Chief Name Role Phone Faisal Richardson DO Primary Care Provider Source Comments [facility],non-owned Affiliates and Associated Physician Practices is amultiple site organization consisting of ambulatory clinics and hospital sitesin [place], [place], [place] and [place]. This disclosure is being madepursuant to the Care Everywhere program and may not contain all information available regarding this patient. Last updated 18.[facility] Allergies Active Allergy Reactions Criticality Noted Date [...] injection 10/17/2021 Active ergocalciferol (Drisdol) 1.25 MG (23474 UT) capsule Take 1 (one) capsule by [...] Administration Dates Next Due TDAP (7yrs+) 10/25/2021 Family History Medical History Relation Name Comments Cancer Father rectal; Status: Diabetes Mother Status: Alive Hypertension Mother Relation Name Status Comments Father Mother Social History Tobacco Use Types Packs/Day Years [...] Recorded Patient Health Questionnaire-2 Score 4 01/15/2024 [facility] [place] of Occupat ional Health - Occupational Stress [...] place to sleep or slept in a penitentiary (including now)? No 10/17/2023 Sex and Gender [...] Mass Index 36.93 10/15/2023 9:20 PM CDT Plan of Treatment Upcoming Encounters Date Type Department Care Team (Late st Contact Info) Description 01/20/2025 10:00 AM CDT Office Visit [facility] [address] [place] [phone] Torrey Lafleur MD [address] [facility] [address] [place], [place] [phone] Health Maintenance Due Date Last Done Comments COLOGUARD (AGES 45-75) - COLON CA SCREENING 1964 COLON MONITORING 1964 COLONOSCOPY - COLON CA SCREENING 1964 CT COLONOGRAPHY - COLON CA SCREENING 1964 Colorectal Cancer Screening 1964 FIT - COLON CA SCREENING 1964 FLEX SIG - COLON CA SCREENING 1964 HIV SCREENING 1979 HEPATITIS C SCREENING 05/01/1982 ZOSTER VACCINE (1 of 2) 2014 DEPRESSION SCREENING 08/06/2023 COVID-19 VACCINE ( season) 2024 07/13/2021, 11/04/2020, 10/14/2020 INFLUENZA VACCINE (#1) 2024 Respiratory Syncytial Virus (RSV) Vaccine Pt: or over 60 yrs (1 - Risk 60-74 years 1-dose series) 2024 SCREENING FOR DIABETES 10/16/2026 , 10/16/2023, 10/16/2023, Additional history exists DTAP/TDAP/TD VACCINES (2 - Td or Tdap) 10/26/2031 10/25/2021 HEPATITIS B VACCINE Aged Out No longe r eligible based on patient's age to complete this topic HIB VACCINE Aged Out No longer eligi ble based on patient's age to complete this topic HPV VACCINE Aged Out No longer eligi ble based on patient's age to complete this topic MENINGOCOCCAL VACCINE Aged Out No bhavya jeimy eligible based on patient's age to complete this topic PNEUMOCOCCAL VACCINE Aged Out No long er eligible based on patient's age to complete this topic Medical Devices Implanted Type Area Early Education Teacher Device Identifier Shelf Expiration Date Model / Serial / Lot Cable Orth Cocr 2mm 75mm Troch Clp Implanted:Qty : 1 on 12/08/2022 by Torrey Lafleur MD at [facility] Cable Right: Femur [employer] 06/07/2032 [id number] / / [id number] Screw 6.5mm 25mm Hip Actb Canc Sphrcl Implanted:Qty : 1 on 12/08/2022 by Torrey Lafleur MD at [facility] Screw Right: Hip [employer] 02/09/2032 [id number] / / [id number] Shell Actb 62mm Hip 3 Hl Por R3 Implanted:Qty : 1 on 12/08/2022 by Torrey Lafleur MD at [facility] Right: Hip [employer] 11/11/2031 [id number] / / [id number] Liner Actb R3 0d 62mm 44mm Xlpe Implanted:Qty : 1 on 12/08/2022 by Torrey Lafleur MD at [facility] Right: Hip [employer] [id number] 03/23/2029 [id number] / [id number] Fem High Offset Sleeved Stem 17h X 240mm Implanted:Qty : 1 on 12/08/2022 by Torrey Lafleur MD at [facility] Right: Hip [employer] 02/05/2027 [id number] / / [id number] Head Fem 44mm Mdlr Tl Oxnm Implanted:Qty : 1 on 12/08/2022 by Torrey Lafleur MD at [facility] Right: Hip [employer] [id number] 04/02/2031 [id number] / / [id number] Slv Fem Anthology +4 Tpr Hip Ti Implanted:Qty : 1 on 12/08/2022 by Torrey Lafleur MD at [facility] Right: Hip [employer] [id number] 04/20/2032 [id number] / / [id number] Slv Centering 50mm 20-23mm Redapt 16-17 Implanted:Qty : 1 on 12/08/2022 by Torrey Lafleur MD at [facility] Right: Hip [employer] 11/21/2031 [id number] / / [id number] Cmnt Bone Rally 40gm Hvisc Sprmnt Grn Implanted:Qty : 1 on 09/24/2023 by Torrey Lafleur MD at [facility] Right: Hip [employer] 04/05/2024 [id number] / / [id number] Cmnt Bone Rally 40gm Hvisc Sprmnt Grn Implanted:Qty : 1 on 09/27/2023 by Torrey Lafleur MD at [facility] Right: Hip [employer] 06/05/2027 [id number] / / [id number] Femoral Head Implanted:Qty : 1 on 10/02/2023 by Torrey Lafleur MD at [facility] Right: Hip [employer] 04/30/2033 [id number] / / [id number] Head Sleeve Implanted:Qty : 1 on 10/02/2023 by Torrey Lafleur MD at [facility] Right: Hip [employer] 03/20/2033 [id number] / / [id number] Liner Implanted:Qty : 1 on 10/02/2023 by Torrey Lafleur MD at [facility] Right: Hip [employer] 03/23/2029 [id number] / / [id number] Procedures Procedure Name Priority Date/Time Associated Diagnosis Comments GLUCOSE - POINT OF CARE Routine 10/17/2023 8:26 AM CDT from Last 3 Months or Most Recently Relevant to Health Maintenance Results * (ABNORMAL) GLUCOSE - POINT OF CARE (10/17/2023 8:26 AM CDT) [facility] Glucose WB/POC 174(H) 70 - 106 mg/dL 10/17/2023 8:32 AM CDT [facility] Specimen Type Cap Fingerstick 2023 8:32 AM CDT [facility] Blood BLOOD SPECIMEN / Unknown 10/17/2023 8:26 AM CDT 10/17/2023 8:32 AM CDT Marco Carter MD LAB - POINT OF CARE ORDERABLES [facility] [address] [place] [address] from Last 3 Months or Most Recently [...] 7:55 PM 12/16/2022 1:07 PM Care Teams Deputy Sheriff Chief Relationship Specialty Start Date End Date Faisal Richardson DO [address] [place] [phone] PCP - General Family Medicine 11/27/22
--- OUTSIDE RECORDS SUMMARY | 2024-07-28 00:56 | XMS_ITS | Encounter Summary ---
Author Organization [facility] Address [address] [facility] [place] [address] Care Team Providers Care Cooking Appliance Repair Technician Name Role Phone Bonnielatoya Faisal BRO Primary Care Provider [phone] Encounter Details Date Type Department Care Team (Latest Contact Info) Description 10/24/2023 Travel Social History Tobacco Use Types Packs/Day [...] and heating? Not hard at all 10/17/2023 [facility] [place] of Occupat ional Health - Occupational Stress [...] place to sleep or slept in a senior living (including now)? No 10/17/2023 Sex and Gender [...] Description 01/20/2025 10:00 AM CDT Office Visit [facility] - Orthopedic Surgery [address] [place] [address] Torrey Lafleur MD [address] [facility] [address] [place] [address] documented as of this encounter Visit Diagnoses Not on filedocumented in this encounter Care Teams Cooking Appliance Repair Technician Relationship Specialty Start Date End Date Faisal Richardson DO [address] [place] [address] PCP - General Family Medicine 11/27/22 documented as of this encounter
--- OUTSIDE RECORDS SUMMARY | 2024-07-28 00:57 | XMS_ITS | Encounter Summary ---
Author Organization [facility] Address [address] [facility] [place] [place] [address] Care Team Providers Care Tree Expert Name Role Phone Faisal Richardson DO Primary Care Provider [phone] Reason for Visit * Reason Comments Post-Op Post op right hip Encounter Details Date Type Department Care Team (Late st Contact Info) Description 10/24/2023 12:00 PM CDT Office Visit [facility] - [facility] [address] [place] [phone] Torrey Lafleur MD [address] [phone] S/P revision of total hip (Primary Dx) [...] Never 10/17/2023 Overall Financial Resource Strain (CARDIA) Terrencee r Date Recorded How hard is it for you to pa y for the very basics like food, housing, medical care, and heating? Not hard at all 10/17/2023 [place] of Occupat ional Health - Occupational Stress [...] No 10/17/2023 documented as of this encounter Patient Instructions * Patient Instructions* Fiordaliza Flores RN - 10/18/2023 12:38 PM CDT Fiordaliza Flores RN BSN Total Joint Reconstruction Dept of Orthopedic Surgery [facility] [employer] Messaging - Dr. Torrey Lafleur Email: [email or web address] documented in this encounter Progress Notes * Torrey Lafleur MD - 10/24/2023 12:00 PM CDT Patient returns for follow-up 3 weeks after revision right total hip arthroplasty for recurrent infection. Overall patient is doing well. Denies fevers chills or wound problems. No mechanical symptoms or dislocations. Continues to take blood thinners. Continuing home therapy. Still on IV antibiotics. Having some muscular thigh pain but states is different than what he had preoperatively. Physical exam: Patient is awake and alert Examination of the right hip reveals flexion to 90, abduction 30, adduction 20, internal rotation of 20, external rotation of 20 with no pain. Distally patient can dorsiflex and plantarflex both ankles and toes without difficulty. Limb lengths are clinically equal. 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 We discussed antibiotic prophylaxis before invasive procedures. Continue antibiotics per Infectious Disease. Follow-up in 3 months. Okay to stop DVT prophylaxis after he runs out. Patient may drive if not taking pain medication. This dictation was performed with the use of [employer] voice recognition and errors with transcriptionmay occur. Torrey Lafleur MD documented in this encounter Plan of Treatment Upcoming Encounters Date Type Department Care Team (Late st Contact Info) Description 01/20/2025 10:00 AM CDT Office Visit [facility] - Orthopedic Surgery [address] [place] [address] Torrey Lafleur MD [address] [address] documented as of this encounter Visit Diagnoses Diagnosis S/P revision of total hip- Primary Hip joint replacement by other means documented in this encounter Care Teams Tree Expert Relationship Specialty Start Date End Date Faisal Richardson DO [address] [place] [address] PCP - General Family Medicine 11/27/22 documented as of this encounter
--- OUTSIDE RECORDS SUMMARY | 2024-07-28 00:57 | XMS_ITS | Encounter Summary ---
Author Organization [facility] Address [address] [facility] [place] [address] Care Team Providers Care Waterproofing Supervisor Name Role Phone Faisal Richardson DO Primary Care Provider [phone] Reason for Visit * Reason Onset Date Comments Pain 10/15/2023 Encounter Details Date Type Department Care Team (Late st Contact Info) Description 10/15/2023 Telephone [facility] [address] [place] [address] Fiordaliza Flores RN Pain Social History Tobacco Use Types Packs/Day Years Used Date Smoking Tobacco: Never Smokeless Tobacco: Never Alcohol Use Standard Drinks/Week Comments Not Currently 0 (1 standard drink = 0.6 oz pur e alcohol) Overall Financial Resource Strain (CARDIA) Answe r Date Recorded How hard is it for you to pa y for the very basics like food, housing, medical care, and heating? Not hard at all 12/14/2022 [facility] [place] of Occupat ional Health - Occupational Stress Questionnaire Answer Date Recorded Do you feel stress - tense, restless, nervous, or anxious, or unable to sleep at night because your mind is troubled all the time - these days? Not at all 12/14/2022 Hunger Vital Sign Answer Date Recorded Within the past 12 months, y ou worried that your food would run out before you got the money to buy more. Never true 12/16/19 23 Within the past 12 months, t he food you bought just didn't last and you didn't have money to get more. Never true 12/15/2022 PRAPARE - Transportation Answer Date Re corded In the past 12 months, has l ack of transportation kept you from medical appointments or from getting medications? No 12/04 In the past 12 months, has l ack of transportation kept you from meetings, work, or from getting things needed for daily living? No 12/14/2022 Housing Stability Vital Sign Answer Chente e Recorded In the last 12 months, was t here a time when you were not able to pay the mortgage or rent on time? No 12/14/2022 In the last 12 months, how many places have you lived? 1 12/14/2022 In the last 12 months, was t here a time when you did not have a steady place to sleep or slept in a nursing home (including now)? No 12/14/2022 Sex and Gender Information Value Date Recorded Sex Assigned at Not on file Gender Identity Not on file Sexual Orientation Not on file documented as of this encounter Functional Status Functional Status Response Date of Assess ment Is person deaf or have serious hearing difficult y? No 12/14/2022 Is person blind or have serious difficulty seein g? No 12/14/2022 Does person have serious dif ficulty walking/climbing stairs? Yes 12/14/2022 Does person have difficulty dressing/bathing? Ye s 12/14/2022 Does person have difficulty doing errands alone? Yes 12/14/2022 Cognitive Status Response Date of Assessm ent Does person have difficulty concentrating/remembering/making decisions? No 12/14/2022 documented as of this encounter Miscellaneous Notes * Telephone Encounter - Fiordaliza Flores RN - 10/15/2023 9:35 AM CDT Spoke with patient, nurse and patient state that there is redness and tenderness around PICC line insertion site, I recommended the patient go to the ED to rule out infection at the site. Patient agreed to this and will go [facility] ED. Fiordaliza Flores RN BSN Total Joint Reconstruction Dept of Orthopedic Surgery [facility] [employer] Messaging - Dr. Torrey Lafleur Email: [email or web address] documented in this encounter Plan of Treatment Upcoming Encounters Date Type Department Care Team (Late st Contact Info) Description 01/20/2025 10:00 AM CDT Office Visit [facility] - [facility] Surgery [address] [place] [address] [place] [address] [place] [address] documented as of this encounter Visit Diagnoses Not on filedocumented in this encounter Care Teams Waterproofing Supervisor Relationship Specialty Start Date End Date Faisal Richardson DO [address] [place] [address] PCP - General Family Medicine 11/27/22 documented as of this encounter
--- OUTSIDE RECORDS SUMMARY | 2024-07-28 00:57 | XMS_ITS | Encounter Summary ---
Author Organization [facility] Address [address] [facility] [place] [address] Care Team Providers Care Devulcanizer Head Name Role Phone Bonnielatoya Faisal BRO Primary Care Provider [phone] Encounter Details Date Type Department Care Team (Late st Contact Info) Description 10/19/2023 Orders Only [facility] - [facility] [address] [place] [address] Torrey Lafleur MD [address] [facility] [address] [place] [address] S/P revision of total hip [...] and heating? Not hard at all 10/17/2023 [facility] [place] of Occupat ional Health - Occupational Stress [...] place to sleep or slept in a prison (including now)? No 10/17/2023 Sex and Gender [...] Visit [facility] [place] [address] Torrey Lafleur MD [address] [place] [address] documented as of this encounter Results * XR PELVIS W RIGHT HIP 2VW (10/24/2023 11:08 AM CDT) Anatomical Region Laterality Modality Pelvis Radiographic Sabi ging 10/24/2023 11:1 6 AM CDT Narrative 10/24/2023 11:17 AM CDT Procedure: XR PELVIS W RIGHT HIP 2VW ??Exam Date: ??10/24/2023 11:08 AM ?? 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
--- OUTSIDE RECORDS SUMMARY | 2024-07-28 00:57 | XMS_ITS | Encounter Summary ---
Author Organization [facility] Address [address] [place] [address] Care Team Providers Care Manager Treasury Name Role Phone Faisal Richardson DO Primary Care Provider [phone] Reason for Referral * Home Health Care (Routine) - Closed Specialty Diagnoses / Procedures Referred By Contac t Referred To Contact Home Health Services Diagnoses Infection of prosthetic joint, initial encounter (HCC) [place] [address] [place] [address] [facility] [address], [address] [place] [address] Referral ID Status Reason Start Date Expiration Date V isits Requested Visits Authorized [id number] Closed Specialty Services Required 10/03/2023 10/02/2024 999 999 EW COORDINATOR Reason for Visit * Reason Comments Injury Leg Right leg pain. Hx o f hip and knee surgery * Auth/Cert (Routine) Specialty Diagnoses / Procedures Referred By Contac t Referred To Contact Referral ID Status Reason Start Date Expiration Date Visits Re quested Visits Authorized [id number] 1 1 Encounter Details Date Type Department Care Team (Latest Contact Info) Description 09/24/2023 11:47 AM REVIEW COORDINATOR - 10/04/2023 11:44 AM REVIEW COORDINATOR Hospital Encounter [facility] 2 ORTHO/NEW VIS [address] [place] [address] Drew Lerma DO [address] [place] [id number] Bryant Jones MD [address] [place] [address] [place] [address] [place] [address] Emergency Medicine Discharge Disposition: Home Health Care [facility] [place] Social History Tobacco Use Types Packs/Day Years [...] and heating? Not hard at all 12/14/2022 [place] [facility] - Occupational Stress [...] place to sleep or slept in a custodial (including now)? No 12/14/2022 Sex and Gender Information Value Date Recorded Sex Assigned at Not on file Gender Identity Not on file Sexual Orientation Not on file documented as of this encounter Last Filed Vital Signs Vital Sign Reading Time Taken Comments Blood Pressure 144/79 10/04/2023 7:51 AM REVIEW COORDINATOR Pulse 68 10/04/2023 7:51 AM REVIEW COORDINATOR Temperature 37.1 ??C (98.7 ??F) 10/04/2023 7:51 AM CS T Respiratory Rate 18 10/04/2023 7:51 AM REVIEW COORDINATOR Oxygen Saturation 96% 10/04/2023 7:51 AM REVIEW COORDINATOR Inhaled Oxygen Concentration - - Weight 124.7 kg (275 lb) 09/24/2023 6:13 PM REVIEW COORDINATOR Height 182.9 cm (6') 09/24/2023 6:13 PM REVIEW COORDINATOR Body Mass Index 37.3 09/24/2023 6:13 PM REVIEW COORDINATOR documented in this encounter Functional Status Functional Status Response [...] No 12/14/2022 documented as of this encounter Discharge Summaries * Praveen Kaufman MD - 10/04/2023 11:44 AM CST Physician Discharge Summary Patient Name: Taylor Rutledge Date of : 1965 Admit date: 09/24/2023 Discharge date: 10/04/2023 Admitting Physician: No admitting provider for patient encounter. Attending Physician: Praveen Kaufman MD Discharge Physician: Praveen Kaufman MD Admission Diagnosis: Right prosthetic hip, hardware infection Past Medical History Past Medical History: Diagnosis Date ??? Aortic stenosis mod-sev on 2022 echo ??? CAD (coronary artery disease) ??? High blood pressure ??? LVH (left ventricular hypertrophy) ??? Mixed hyperlipidemia ??? Restless leg syndrome ??? S/P PICC central line placement 10/03/2023 R Basilic Vein PICC Placement by WILBERT SELLERS RN ??? Sleep apnea uses cpap ??? [place] residual ??? Type 2 diabetes mellitus without complications [place] Discharge Diagnoses Right prosthetic hip, hardware infection Diagnostic Studies See hospital course Treatments See hospital course Procedures See hospital course Consults ID Orthopedic surgery Hospital Course This is a 58-year-old male patient past medical history of aortic stenosis, CAD, right hip replacement??Rt hip replacement w/ wound vac??(2022), hyperlipidemia, CVA, diabetes who presented to the emergency department with complaints of right hip pain. Right prosthetic hip, hardware infection Orthopedic surgery consulted I&D, removal of hardware, wound vac placement on 09/24 Repeat OR for I&D on 09/27 OR again on 10/02 Evaluated by ID IV Ancef for 6 weeks starting 10/02/23 Pain control PICC line placed No outpt from wound vac - discussed with RN and ortho team aware per RN 1 month DVT ppx Option care set up for abx He will f/u with orthopedic surgery All medications and changes reviewed with patient and his at bedside Before discharge, patient is afebrile, hemodynamically stable, tolerating PO intake. He will be discharged home and was advised to follow up with his PCP within 1-2 weeks. Plan was discussed with thepatient and he verbalized understanding. He was given the opportunity to ask questions which were answered to his satisfaction. All medications were reviewed with the patient prior to discharge. Patient's home medication list was updated per patient report. Condition at discharge: good Disposition: Home Code Status At Discharge Full Code Patient Instructions Current Discharge Medication List START taking these medications Instructions Authorizing Provider apixaban 2.5 MG tablet Commonly known as: Eliquis Quantity Dispensed: 60 tablet Take 1 (one) tablet by mouth 2 times daily for 30 days Praveen Kaufman MD ceFAZolin 2 g in 0.9% NaCl IV 0.9 % 50 mL IVPB 2 (two) g by Intravenous route every 8 hours Praveen Kaufman MD oxyCODONE-acetaminophen 5-325 MG tablet Commonly known as: Percocet Quantity Dispensed: 25 tablet Take 1 (one) tablet by mouth every 4 hours as needed for Pain Praveen Kaufman MD CONTINUE taking these medications which have CHANGED Instructions Authorizing Provider amLODIPine 10 MG tablet What changed: ?? medication strength ?? how much to take Commonly known as: Norvasc Quantity Dispensed: 30 tablet Start taking on: October 05, 2023 Take 1 (one) tablet by mouth once daily Praveen Kaufman MD CONTINUE taking these medications which have NOT CHANGED Instructions Authorizing Provider buPROPion XL 24hr 300 MG tablet Commonly known as: Wellbutrin-XL carvedilol 25 MG tablet Commonly known as: Coreg Take 1 (one) tablet by mouth 2 times daily clopidogrel 75 MG tablet Commonly known as: plaVIX Take 1 (one) tablet by mouth once daily Start taking 12/19/22. Rosita Tuttle MD cyclobenzaprine 10 MG tablet Commonly known as: Flexeril Take 1 (one) tablet by mouth 2 times daily DSS 100 MG Take 100 mg by mouth 2 times daily ergocalciferol 1.25 MG (40491 UT) capsule Commonly known as: Drisdol Take 1 (one) capsule by mouth ferrous sulfate 325 (65 FE) MG tablet Take 1 (one) tablet by mouth once daily metFORMIN 1000 MG tablet Commonly known as: Glucophage Take 1 (one) tablet by mouth 2 times daily One-A-Day Mens Health Formula Tabs pantoprazole EC 40 MG tablet Commonly known as: Protonix Quantity Dispensed: 30 tablet Take 1 (one) tablet by mouth once daily Reasons: Stomach Ulcer Rosita Tuttle MD pregabalin 50 MG capsule Commonly known as: Lyrica Quantity Dispensed: 70 capsule Take 1 (one) capsule by mouth 2 times daily Blaire Wayne Probiotic 1-250 BILLION-MG Caps rosuvastatin 20 MG tablet Commonly known as: Crestor Take 2 (two) tablets by mouth every morning sertraline 50 MG tablet Commonly known as: Zoloft Take 1 (one) tablet by mouth once daily Trulicity 1.5 MG/0.5ML injection Generic drug: dulaglutide STOP taking these medications aspirin 81 MG chew tablet Commonly known as: Aspirin 81 azithromycin 500 MG tablet Commonly known as: Zithromax betamethasone dipropionate 0.05 % ointment Commonly known as: Diprosone cloNIDine 0.1 MG tablet Commonly known as: Catapres losartan-hydroCHLOROthiazide 100-12.5 MG tablet Commonly known as: Hyzaar Discharge Procedure Orders Referral to Home Health Care Referral Priority: Routine Referral Type: Home Health Care Referral Reason: Specialty Services Required Requested Specialty: Home Health Services Number of Visits Requested: 999 Follow up Instructions Please continue to wear your home cpap/bipap during times of sleepiness, unless otherwise instructed. Some medications that you may have been prescribed or were used during a procedure may increase the chance of sleep apnea complications. Why you were hospitalized Order Specific Question Answer Comments Your discharge diagnosis is: Prosthetic hip infection, initial encounter ([facility]) [[id number]] Follow up with Primary Care Provider (PCP) Our records show your Primary Care Provider (PCP) is Faisal Richardson DO. Additional Scheduling Instructions: Readmission Risk Score: 12. 0-18 = Low/Moderate Risk - Follow up within 14 days 19-100 = High Risk - Follow up within 5 days Order Specific Question Answer Comments Follow Up Instructions for Patient: Within 5 Days from Discharge Follow up with provider Additional Scheduling Instructions: Readmission Risk Score: 12. 0-18 = Low/Moderate Risk - Follow up within 14 days 19-100 = High Risk - Follow up within 5 days Order Specific Question Answer Comments Follow Up Instructions for Patient: Other (See Comment) 3 week f/u Patient seen and examined by myself today. General appearance: in no acute distress, cooperative Eyes: sclerae anicteric, conjunctivae pink Lungs: non labored breaths, clear to auscultation Heart: regular rate and rhythm Abdomen: soft and non tender Extremities: moves all extremities, Right hip wound vac Neuro: non focal exam, conversational Skin: psoriasis upper and lower extremities bilaterally Discharge time: 38 minutes with coordination of care with CM/SW, consultants, and nurse, education,medication reconciliation, discharge summary, and counseling patient Praveen Kaufman MD Date of Service: 10/04/23 EW COORDINATOR documented in this encounter Discharge Instructions * Discharge Instructions* Praveen Kaufman MD - 10/04/2023 11:22 AM REVIEW COORDINATOR Hip Precautions as follows: Posterior hip precautions- no flexion past 90 degrees, no adduction past midline, no internal rotation Ankle flexion exercises every hour during the day to prevent swelling and deep vein thrombosis prevention. Continue DVT prophylaxis for one month. Keep wound clean and dry. Discontinue Prevena incisional wound vacuum after battery dies. After that you should perform daily or every other day dressing changes with dry gauze and tape as needed forsaturation. After ingris/sutures have been removed it is OK to shower but leave wound covered witha dressing in the shower. After shower, remove the wet dressing, pat dry, and apply antibiotic ointment over wound then place a clean dry dressing. Apply an antibiotic ointment (neosporin/bacitracin) to incision daily after initial surgical dressing has been removed Do not get incision wet in shower until ingris are removed. No tub soaks. No scrubbing around incision. Call [phone] to schedule the first follow-up appointment with Dr. Lafleur in 3 week(s) or for any questions EW COORDINATOR documented in this encounter Medications at Time of Discharge Medication Sig Dispensed Refills Start Date End Date amLODIPine (Norvasc) 10 MG tablet Take 1 [...] tablet by mouth 2 times daily 03/05/2022 Docusate Sodium (DSS) 100 MG Take 100 mg by mouth 2 times daily 05/03/2022 dulaglutide (Trulicity) 1.5 MG/0.5ML injection 10/17/2021 ergocalciferol (Drisdol) 1.25 MG (80883 UT) capsule Take 1 (one) capsule by mouth 05/02/2022 ferrous sulfate 325 (65 FE) MG tablet Take 1 (one) tablet by mouth once daily metFORMIN (Glucophage) 1000 MG tablet Take 1 (one) tablet by mouth 2 times daily 03/05/2022 Multiple Vitamins-Minerals (One-A-Day Mens Health Formula) TABS 08/06/2021 oxyCODONE-acetaminophe n (Percocet) 5-325 MG tabletIndications:Infe ction of prosthetic joint, initial encounter ([facility]) Take 1 (one) tablet by mouth every 4 hours as needed for Pain 25 tablet 10/04/2023 pantoprazole EC (Protonix) 40 MG tabletIndications:Marichuy miguel Ulcer Take 1 (one) tablet by mouth [...] once daily documented as of this encounter Progress Notes * Meenakshi Manzanares V. RN - 10/03/2023 10:51 PM CST Problem: Pain/Discomfort Goal: Patient exhibits reduced pain/discomfort as evidenced by pain scores Note: Encouraged to verbalize if he is in pain Goal: Patient verbalizes acceptable level of pain relief and ability to engage in desired activity. Note: Encouraged pt to verbalize his acceptable level of pain Problem: Fall Risk Goal: Fall risk and fall related injury risk are minimized (interventions related to the fall risk can be found in the flowsheet documentation) Outcome: Progressing Problem: Nutrient: Increased nutrient needs (specify) Goal: Total intake will meet estimated nutrient needs Description: Estimated Needs: KCAL: 2425 (30 kcal/kg IBW) Protein (g): 97 (1.2 g/kg IBW) Fluid (ml): 1 ml/kcal Needs based on: Kcal/kg- (Comment) Recommended Access Route: PO Outcome: Progressing Problem: Skin Integrity Goal: Skin integrity is maintained or improved Outcome: Progressing Problem: Activity Intolerance/Impaired Mobility Goal: Mobility/activity is maintained at optimum level for patient Outcome: Progressing Problem: Hemodynamic Status/Cardiac Output Goal: Patient has stable vital signs and fluid balance Outcome: Progressing Problem: Anxiety Goal: Anxiety is at manageable level Outcome: Progressing Problem: Risk of VTE Goal: Patient is free of signs and symptoms of VTE Outcome: Progressing Problem: Procedural Site (Incision) Care Goal: Incision remains intact with edges well approximated Outcome: Progressing Goal: Incision is free of infection. Outcome: Progressing Problem: Hip Precautions Goal: Hip precautions are followed Outcome: Progressing EW COORDINATOR * Chauncey Hutchinson - 10/03/2023 3:40 PM CST Images from the original note were not included. Patient provided list of in-network home health care. Home Health Referrals have been initiated based on patient's choice: Continued Care and Services - Admitted Since 09/24/2023 Home Medical Care Coordination complete. Service Provider Request Status Selected Services Address Phone Fax Patient Preferred [facility] Selected Home Health Services [address] [phone] -- EW COORDINATOR * Praveen Kaufman MD - 10/03/2023 3:10 PM CST Hospitalist Progress Note Admit Date: 09/24/2023 11:47 AM Hospital Day: 9 Clinical Course This is a 58-year-old male patient past medical history of aortic stenosis, CAD, right hip replacement Rt hip replacement w/ wound vac (2022), hyperlipidemia, CVA, diabetes who presented to the emergency department with complaints of right hip pain. Patient tells me he has been having pain for over1 year but as of yesterday the pain worsened and he is unable to bear weight. New Symptoms States pain is controlled Exam Vitals: 10/03/23 0044 10/03/23 0301 10/03/23 0751 10/03/23 1142 BP: 128/69 133/80 123/75 123/71 Pulse: 71 65 73 60 Resp: 18 18 18 18 Temp: 98.7 ??F (37.1 ??C) 98.8 ??F (37.1 ??C) 98.5 ??F (36.9 ??C) 97.8 ??F (36.6 ??C) SpO2: 92% 95% 94% 96% Weight: Height: General appearance: in no acute distress, cooperative Eyes: sclerae anicteric, conjunctivae pink Lungs: non labored breaths, clear to auscultation Heart: regular rate and rhythm Abdomen: soft and non tender Extremities: moves all extremities, Right hip wound vac Neuro: non focal exam, conversational Skin: psoriasis upper and lower extremities bilaterally Data Reviewed all labs and imaging MEDICATIONS FOR CURRENT ENCOUNTER: ?? SCHEDULED MEDICATIONS: ??? 0.9% NaCl 3 mL Intracatheter q8h ??? 0.9% NaCl 3 mL Intracatheter q8h ??? amLODIPine 10 mg Oral QDAY ??? carvedilol 25 mg Oral BID ??? ceFAZolin 2 g Intravenous q8h ??? cyclobenzaprine 10 mg Oral BID ??? docusate sodium 100 mg Oral BID ??? enoxaparin 40 mg Subcutaneous QDAY ??? ferrous sulfate 325 mg Oral QDAY ??? insulin aspart 0-4 Units Subcutaneous AT BEDTIME ??? insulin aspart 0-6 Units Subcutaneous TID WC ??? naloxone 0.04 mg Intravenous post-OP multiple ??? naloxone 0.04 mg Intravenous post-OP multiple ??? pantoprazole EC 40 mg Oral QDAY ??? pregabalin 50 mg Oral BID ??? rosuvastatin 40 mg Oral QAM ??? sertraline 200 mg Oral QDAY ?? PRN MEDICATIONS: ??? SALINE LOCK, INSERT AND MAINTAIN AND 0.9% NaCl AND 0.9% NaCl ??? SALINE LOCK, INSERT AND MAINTAIN AND 0.9% NaCl AND 0.9% NaCl ??? acetaminophen ??? ALPRAZolam ??? bisacodyl ??? dextrose IV for hypoglycemia OR dextrose IV for hypoglycemia OR glucagon ??? fentaNYL (PF) ??? fentaNYL (PF) ??? fentaNYL (PF) ??? glucose (Diabetic Use) gel ??? HYDROmorphone ??? HYDROmorphone ??? HYDROmorphone ??? HYDROmorphone ??? insulin regular (HumuLIN R; NovoLIN R) 100 units/mL subcutaneous injection ??? lactulose ??? ondansetron (disintegrating) ??? ondansetron ??? ondansetron ??? ondansetron ??? ondansetron ??? oxyCODONE-acetaminophen ??? prochlorperazine ??? prochlorperazine ??? prochlorperazine Assessment and Plan Right prosthetic hip, hardware infection Orthopedic surgery consulted I&D, removal of hardware, wound vac placement on 09/24 Repeat OR for I&D on 09/27 OR again on 10/02 Evaluated by CHAPIN Goodson Pain control PICC line No outpt from wound vac - discussed with RN and ortho team aware per RN 1 month DVT ppx Hypertension Continue amlodipine and coreg CVA history: Continue statin Holding aspirin, Plavix ?? Diabetes mellitus Sliding scale insulin Diabetic diet ?? Mood disorder: Continue Wellbutrin, Zoloft ?? Hypertension: Continue Norvasc, Coreg ?? GERD: Protonix Psoriasis Follows with Dermatology at [facility], resolved DVT ppx -Lovenox Disposition: Pending clinical course . Praveen Kaufman MD Date of Service: 10/03/23 Patient was seen by me on 10/03 at around 1045 EW COORDINATOR * Mellissa Holland PT - 10/03/2023 3:08 PM CST Physical Therapy New PT orders received s/p hip revision and I&D. Attempted to see patient for PT however pt reported he continued to be independent with in room mobility and denied any concerns about mobility orreturn home. Pt plans to resume home health upon D/C home and has no skilled PT needs while inpatient. Will complete orders at this time, please re-order should pt experience a decline in function. Mellissa PT [phone] EW COORDINATOR * Deena Kline, ANA - 10/03/2023 2:48 PM CST Care Coordination Progress Note Anticipated level of care at discharge: Home Health - IV and Home Health Care: Anticipated level of care provider: Kelsy [facility]: Anticipated Discharge Date: 10/04/23: Discharge Plan: Patient pending PICC line placement, initially opened with [facility] new home health care order submitted to [facility]. Patient will discharge with a Prevena. Orientation Level: Oriented X4: Family Support (Name and Phone): Extended Emergency Contact Information Primary Emergency Contact: Marguerite Rutledge Address: [address] [place] [address] Relation: Spouse Transportation at Discharge: : READMISSION RISK SCORE is 12 at 2:48 PM 10/03/2023.: Name: Deena Kline RN, BSN, MSN,CM /[phone] EW COORDINATOR * Sigifredo Kruse OT - 10/03/2023 2:15 PM CST Occupational Therapy Pt previously discharged from OT caseload on 09/28, mod I for all ADLs and functional mobility with wwr. New orders received s/p OR for I&D. Pt reports continued mod I for ADLs and functional mobility. Pt declines need for skilled OT. Pt has been up in room using restroom with mod I. No skilled OT needs indicated at this time. Will D/C OT. Sigifredo OT [phone] EW COORDINATOR * Kenna Ocampo MD - 10/03/2023 8:52 AM CST Infectious Diseases Consult Note Patient's Primary Care Physician: Faisal Richardson DO Reason for Consultation: Rt prosthetic hip joint infection Referring Physcian: No admitting provider for patient encounter. Name: Taylor Rutledge Age: [age] year old 7 Chief Complaint/History of Present Illness Had I and D of the right hip with delayed primary closure removal of antibiotic beads Was able to ambulate with a walker Has questions about PICC line Patient prefers to stay on suppression chronically after IV antibiotics completed S/p OR 09/27 per ortho for repeat I&D, wound vac re-application, cx neg Cultures from rt hip 09/24 +Grp B strep Narrowed to cefazolin 09/27 No new complaints Ortho plans rpt I&D and wound closure on 10/02 Objective: Review of Systems General: no fatigue/fever/chills Skin: no rashes/lesions Eyes: no vision problems/no conjunctival lesions HENT: no oral lesion/no hearing problems Respiratory: no cough/sob Cardiovascular: no cp/palpitations Gastrointestinal: no nausea/diarrhea Genitourinary: no dysuria/hematuria Musculoskeletal: no joint pain/no muscle pain; rt groin pain Neurological: no hope/seizures Psych: no depression/anxiety Exam Vitals: 10/02/23 2118 10/03/23 0044 10/03/23 0301 10/03/23 0751 BP: 144/75 128/69 133/80 123/75 Pulse: 74 71 65 73 Resp: 18 18 18 18 Temp: 98.8 ??F (37.1 ??C) 98.7 ??F (37.1 ??C) 98.8 ??F (37.1 ??C) 98.5 ??F (36.9 ??C) SpO2: 91% 92% 95% 94% Weight: Height: Temp (30hrs) Max:99.3 ??F (37.4 ??C) General appearance: cooperative, no distress, appears stated age, alert HEENT: ncat, vision intact Lungs: clear to auscultation bilaterally Heart: regular rate and rhythm, S1, S2 normal, no murmur, Abdomen: soft, non-tender; bowel sounds normal Extremities: extremities normal, atraumatic, no cyanosis or edema Rt hip wound vac in place Skin: no rash/lesion, has some old psoriatic rashes around right hip but not expansive or cellulitic Lines: MEDICATIONS FOR CURRENT ENCOUNTER: SCHEDULED MEDICATIONS: 0.9% NaCl injection 3 mL, Intracatheter, q8h 0.9% NaCl injection 3 mL, Intracatheter, q8h amLODIPine (Norvasc) tablet 10 mg, Oral, QDAY carvedilol (Coreg) tablet 25 mg, Oral, BID ceFAZolin (Ancef) 2 g in 0.9% NaCl IV 50 mL IVPB, Intravenous, q8h cyclobenzaprine (Flexeril) tablet 10 mg, Oral, BID docusate sodium (Colace) capsule 100 mg, Oral, BID ferrous sulfate tablet 325 mg, Oral, QDAY insulin aspart (NovoLOG) pen 0-4 Units, Subcutaneous, AT BEDTIME insulin aspart (NovoLOG) pen 0-6 Units, Subcutaneous, TID WC pantoprazole EC (Protonix) tablet 40 mg, Oral, QDAY pregabalin (Lyrica) capsule 50 mg, Oral, BID rosuvastatin (Crestor) tablet 40 mg, Oral, QAM sertraline (Zoloft) tablet 200 mg, Oral, QDAY ?? [] insulin regular human (HumuLIN R; NovoLIN R) 100 UNIT/ML injection 0-6 Units, Intravenous, Once Data Recent Labs Component Name 09/25/23 0141 09/24/23 1058 12/16/22 0545 WBC 9.9 11.8* 7.1 HGB 10.8* 12.6* 8.2* HCT 33.6* 38.9 26.0* PLTCOUNT 165 194 246 Recent Labs Component Name 09/25/23 0141 09/24/23 1058 12/16/22 0545 SODIUM 138 137 139 POTASSIUM 4.0 4.2 3.9 CHLORIDE 106 105 108* CO2 BUN 14 14 11 CREATININE 0.88 0.90 0.81 GLUCOSE 182* 178* 126* CALCIUM 8.6 9.4 9.1 Recent Labs Component Name 09/30/23 0349 12/16/22 0545 12/15/22 0644 12/14/22 1933 ALBUMIN 2.3* 3.6 3.5 3.3* ALKPHOS 76 66 - 63 ALT 28 15 - 18 AST 31 20 - 22 TBIL 0.5 0.9 - 1.2 DBIL 0.171 - - - TPROT 5.8* 6.6 - 6.2* No results for input(s): CDIFFTOXINAB in the last 31341 hours. Recent Labs Component Name 09/24/23 1058 SEDRATE 50* Recent Labs Component Name 09/24/23 1058 04/04/23 0950 CRP 5.64* 0.33 No results for input(s): CK in the last 08645 hours. . Recent Labs Component Name 09/26/23 0455 VANCOPEAK 18.3* Recent Labs Component Name 09/25/23 0141 12/14/22 1933 11/27/22 0950 HGBA1C 6.4* 6.0* 5.6 Recent Labs Component Name 11/27/22 0950 COLORUA Yellow CLARITYUA Clear SPECGRAVUA 1.019 PHUA 5.0 PROTEINUA Negative BLOODUA Negative LEUKOCYTEUA Negative NITRITEUA Negative GLUCOSEUA Negative KETONEUA Negative BILIRUBINUA Negative UROBILINUA Negative Microbiology 09/24 Rt hip aspiration cultures +grp B strep 09/24 Rt hip OR/I&D cultures +grp B strep 09/27 Rt hip OR/I&D cultures neg 09/25 blood cultures neg Radiology Assessment *Right prosthetic hip / hardware infection -06/2022: s/p hip arthroplasty for arthritis ([place], [place]) -08/30/22: s/p hardware removal due to infection, IV abx x 6wks ([place], [place]) -12/08/22: s/p revision arthroplasty, fixation of proximal femoral periprosthetic fracture, Dr. Lafleur -chronic/ongoing rt hip/thigh/groin pain since -no response to iliopsoas tendon injection 08/29/23 -presented to ER 09/24 with progressive sx, CRP 5.64, WBC 11.3 -09/24: arthrocentesis: 98k TNC, 81% neutrophils, cx pending -09/24: s/p rt hip arthrotomy with I&D, placement of abx cement beads, removal of hardware/cerclage cable, wound vac application; cx pending *gastric ulcers / gastritis sp EGD 12/15/22 *coronary artery disease *hyperlipidemia *diabetes *hx of psoriasis * leukocytosis resolved Estimated Creatinine Clearance: 123.2 mL/min (by C-G formula based on SCr of 0.88 mg/dL). Plan -continue cefazolin 2 gm Q 8 hours -duration x 6 weeks (from date of last debridement, next planned 10/02) -with retention of some hardware, will need po suppression long-term -follow OR I&D cultures 09/24 +grp B strep -follow arthrocentesis cultures, 09/24 +grp B strep -follow OR cultures from 09/27 Neg so far -follow blood cultures 09/25 neg -monitor labs -wound vac management per ortho -plan per ortho is OR for I&D and wound closure on 10/02 Dispo: -[facility]AT via [facility] - -PICC line Weekly CBC, CMP, UA, sed rate. Fax results to [phone] Discussed with IV team Please be advised that part of this text was done using voice recognition software. Errors may havebeen missed upon review. Kenna Ocampo MD EW COORDINATOR * Jose Villa MD - 10/03/2023 8:18 AM CST Orthopedic Surgery Progress Note Name: Taylor Rutledge 58 year old, male : 1965 Admit Date: 09/24/2023 11:47 AM October 03, 2023 Subjective Patient seen this morning on rounds. In no acute distress. Data BP 123/75 (BP Cuff Size: A) Pulse 73 Temp 98.5 ??F (36.9 ??C) (Oral) Resp 18 Ht 1.829 m (6') Wt 124.7 kg (275 lb) SpO2 94% Temp (24hrs), Av.8 ??F (37.1 ??C), Min:98.5 ??F (36.9 ??C), Max:99.3 ??F (37.4 ??C) Labs Recent Labs Component Name 09/25/23 0141 09/24/23 1058 12/16/22 0545 WBC 9.9 11.8* 7.1 HGB 10.8* 12.6* 8.2* HCT 33.6* 38.9 26.0* PLTCOUNT 165 194 246 Physical Exam General appearance: No apparent distress. and Responsive. Right lower extremity: Motor: Able to plantarflex and dorsiflex ankle. Sensation to light touch grossly intact over foot. Toes warm and well perfused distally. Dressing is intact, clean, and dry. Incisional WV in place holding suction Assessment/Plan 58 year old male with: Active Problems: Inability to ambulate due to hip Pain of right hip Post op day #1 status post Procedure(s) (LRB): IRRIGATION AND DEBRIDEMENT HIP -- RIGHT HIP, DELAYED PRIMARY CLOSURE OF COMPLEX WOUND, REMOVAL OF ANTIBIOTIC BEADS, REVISION OF BOTH HIP COMPONENTS -- RIGHT HIP, WOUND VAC APPLICATION (Right) 1. right lower extremity: WBAT with posterior hip precautions at all times 2. Continue pain control 3. Activity: as tolerated 4. PT/OT 5. Antibiotics per primary/ID 6. DVT PPx: okay to resume today 7. No further orthopaedic interventions planned this admission 8. Please page ortho with questions Please give the following instructions to the patient upon discharge/transfer: ?? Hip Precautions as follows: ?? Posterior hip precautions- no flexion past 90 degrees, no adduction past midline, no internal rotation ?? Ankle flexion exercises every hour during the day to prevent swelling and deep vein thrombosis prevention. ?? Continue DVT prophylaxis for one month. ?? Keep wound clean and dry. Discontinue Prevena incisional wound vacuum after battery dies. After that you should perform daily or every other day dressing changes with dry gauze and tape as needed for saturation. After ingris/sutures have been removed it is OK to shower but leave wound covered with a dressing in the shower. After shower, remove the wet dressing, pat dry, and apply antibiotic ointment over wound then place a clean dry dressing. ?? Apply an antibiotic ointment (neosporin/bacitracin) to incision daily after initial surgical dressing has been removed ?? Do not get incision wet in shower until ingris are removed. No tub soaks. No scrubbing around incision. ?? Call [phone] to schedule the first follow-up appointment with Dr. Lafleur in 3 week(s) or for any questions EW COORDINATOR * Chacho Tian RN - 10/03/2023 4:50 AM CST Problem: Pain/Discomfort Goal: Patient exhibits reduced pain/discomfort as evidenced by pain scores 10/03/2023 0450 by Chacho Tian RN Outcome: Progressing 10/03/2023 0449 by Chacho Tian RN Outcome: Progressing Goal: Patient uses pharmacological and non-pharmacological pain management strategies. 10/03/2023 045 by Chacho Tian RN Outcome: Progressing 10/03/2023448 by Chacho Tian RN Outcome: Progressing Goal: Patient verbalizes acceptable level of pain relief and ability to engage in desired activity. 10/03/2023 045 by Chacho Tian RN Outcome: Progressing 10/03/2023448 by Chacho Tian RN Outcome: Progressing Goal: Patient's functional goal is met Outcome: Progressing Problem: Fall Risk Goal: Fall risk and fall related injury risk are minimized (interventions related to the fall risk can be found in the flowsheet documentation) 10/03/2023 045 by Chacho Tian RN Outcome: Progressing 10/03/2023448 by Chacho Tian RN Outcome: Progressing Problem: Skin Integrity Goal: Skin integrity is maintained or improved Outcome: Progressing Problem: Activity Intolerance/Impaired Mobility Goal: Mobility/activity is maintained at optimum level for patient Outcome: Progressing Problem: Hemodynamic Status/Cardiac Output Goal: Patient has stable vital signs and fluid balance Outcome: Progressing Problem: Anxiety Goal: Anxiety is at manageable level Outcome: Progressing Problem: Risk of VTE Goal: Patient is free of signs and symptoms of VTE Outcome: Progressing Problem: Procedural Site (Incision) Care Goal: Incision remains intact with edges well approximated Outcome: Progressing Goal: Incision is free of infection. Outcome: Progressing Problem: Hip Precautions Goal: Hip precautions are followed Outcome: Progressing EW COORDINATOR * Jose Villa MD - 10/02/2023 4:18 PM CST Orthopaedic Surgery Postoperative Check Surgery Date: 10/02/2023 Diagnosis: right hip prosthetic joint infection Procedure Preformed: Procedure(s): IRRIGATION AND DEBRIDEMENT HIP -- RIGHT HIP, DELAYED PRIMARY CLOSURE OF COMPLEX WOUND, REMOVAL OF ANTIBIOTIC BEADS, REVISION OF BOTH HIP COMPONENTS -- RIGHT HIP, WOUND VAC APPLICATION Subjective Complaints: none Nausea/vomiting: absent Pain: Controlled Postoperative vitals: No data found. Physical Exam General appearance: Resting in PACU Right lower extremity: Motor: Able to flex and extend great toe, plantarflex and dorsiflex ankle. Sensation to light touch grossly intact over foot. Toes warm and well perfused distally, symmetric tocontralateral. Dressing is intact, clean, and dry. Prevena intact holding suction Assessment/Plan Status post Procedure(s): IRRIGATION AND DEBRIDEMENT HIP -- RIGHT HIP, DELAYED PRIMARY CLOSURE OF COMPLEX WOUND, REMOVAL OF ANTIBIOTIC BEADS, REVISION OF BOTH HIP COMPONENTS -- RIGHT HIP, WOUND VAC APPLICATION 1. The right lower extremity: weight bearing as tolerated with posterior hip precautions 2. Activity: as tolerated from ortho perspective 3. PT/OT 4. Pain Control 5. DVT Prophylaxis: okay to resume tomorrow, 10/03/23 6. Drains: incisional wound vac x1 7. Antibiotics per ID/primary 8. Dispo: floor EW COORDINATOR * Deena Kline RN - 10/02/2023 2:00 PM CST Care Coordination Progress Note Anticipated level of care at discharge: Home Health - IV and Home Health Care: Anticipated level of care provider: [facility] HOME HEALTH: Anticipated Discharge Date: 10/04/23: Discharge Plan: Patient will need IV antibiotic for 6 weeks with a end date of November 13, 2023 from last I&D 10.02.23. Patient will discharge home with [facility] and [facility]. CM will continue to follow POC and provide additional assistance as needed. Orientation Level: Oriented X4: Family Support (Name and Phone): Extended Emergency Contact Information Primary Emergency Contact: Marguerite Rutledge Address: [address] [place] [id number] Relation: Spouse Transportation at Discharge: : READMISSION RISK SCORE is 12 at 2:00 PM 10/02/2023.: Name: Deena Kline RN, BSN, MSN, CM /[phone] EW COORDINATOR * Bailey Jones RN - 10/02/2023 11:31 AM CST Problem: Pain/Discomfort Goal: Patient exhibits reduced pain/discomfort as evidenced by pain scores Outcome: Progressing Goal: Patient uses pharmacological and non-pharmacological pain management strategies. Outcome: Progressing Goal: Patient verbalizes acceptable level of pain relief and ability to engage in desired activity. Outcome: Progressing Problem: Fall Risk Goal: Fall risk and fall related injury risk are minimized (interventions related to the fall risk can be found in the flowsheet documentation) Outcome: Progressing Problem: General Goal: STG - Patient will Description: Sup to sit mod I Outcome: Progressing Goal: STG - Patient will Description: Ambulate with LRD mod I for 200' Outcome: Progressing Goal: STG - Patient will Description: Complete 1 step with SBA and LRD Outcome: Progressing Problem: General Goal: STG-Patient will Description: Complete toileting Partha Outcome: Progressing Goal: STG-Patient will Description: Complete LB dressing Partha using AE and maintaining PHP Outcome: Progressing EW COORDINATOR * Kenna Ocampo MD - 10/02/2023 8:52 AM CST Infectious Diseases Consult Note Patient's Primary Care Physician: Faisal Richardson DO Reason for Consultation: Rt prosthetic hip joint infection Referring Physcian: No admitting provider for patient encounter. Name: Taylor Rutledge Age: [age] year old 6 Chief Complaint/History of Present Illness NPO for surgery Pain better controlled Patient prefers to stay on suppression chronically after IV antibiotics completed S/p OR 09/27 per ortho for repeat I&D, wound vac re-application, cx neg Cultures from rt hip 09/24 +Grp B strep Narrowed to cefazolin 09/27 No new complaints Ortho plans rpt I&D and wound closure on 10/02 Objective: Review of Systems General: no fatigue/fever/chills Skin: no rashes/lesions Eyes: no vision problems/no conjunctival lesions HENT: no oral lesion/no hearing problems Respiratory: no cough/sob Cardiovascular: no cp/palpitations Gastrointestinal: no nausea/diarrhea Genitourinary: no dysuria/hematuria Musculoskeletal: no joint pain/no muscle pain; rt groin pain Neurological: no hope/seizures Psych: no depression/anxiety Exam Vitals: 10/01/23 2101 10/02/23 0023 10/02/23 0616 10/02/23 0741 BP: 142/60 138/75 142/68 128/69 Pulse: 72 66 67 67 Resp: 18 18 18 18 Temp: 98.6 ??F (37 ??C) 98.9 ??F (37.2 ??C) 98.5 ??F (36.9 ??C) 98.5 ??F (36.9 ??C) SpO2: 98% 97% 97% 95% Weight: Height: Temp (30hrs) Max:98.9 ??F (37.2 ??C) General appearance: cooperative, no distress, appears stated age, alert HEENT: ncat, vision intact Lungs: clear to auscultation bilaterally Heart: regular rate and rhythm, S1, S2 normal, no murmur, Abdomen: soft, non-tender; bowel sounds normal Extremities: extremities normal, atraumatic, no cyanosis or edema Rt hip wound vac in place Skin: no rash/lesion, has some old psoriatic rashes around right hip but not expansive or cellulitic Lines: MEDICATIONS FOR CURRENT ENCOUNTER: SCHEDULED MEDICATIONS: 0.9% NaCl injection 3 mL, Intracatheter, q8h 0.9% NaCl injection 3 mL, Intracatheter, q8h amLODIPine (Norvasc) tablet 10 mg, Oral, QDAY carvedilol (Coreg) tablet 25 mg, Oral, BID ceFAZolin (Ancef) 2 g in 0.9% NaCl IV 50 mL IVPB, Intravenous, q8h cyclobenzaprine (Flexeril) tablet 10 mg, Oral, BID docusate sodium (Colace) capsule 100 mg, Oral, BID ferrous sulfate tablet 325 mg, Oral, QDAY insulin aspart (NovoLOG) pen 0-4 Units, Subcutaneous, AT BEDTIME insulin aspart (NovoLOG) pen 0-6 Units, Subcutaneous, TID WC pantoprazole EC (Protonix) tablet 40 mg, Oral, QDAY pregabalin (Lyrica) capsule 50 mg, Oral, BID rosuvastatin (Crestor) tablet 40 mg, Oral, QAM ?? sertraline (Zoloft) tablet 200 mg, Oral, QDAY Data Recent Labs Component Name 09/25/23 0141 09/24/23 1058 12/16/22 0545 WBC 9.9 11.8* 7.1 HGB 10.8* 12.6* 8.2* HCT 33.6* 38.9 26.0* PLTCOUNT 165 194 246 Recent Labs Component Name 09/25/23 0141 09/24/23 1058 12/16/22 0545 SODIUM 138 137 139 POTASSIUM 4.0 4.2 3.9 CHLORIDE 106 105 108* CO2 BUN 14 14 11 CREATININE 0.88 0.90 0.81 GLUCOSE 182* 178* 126* CALCIUM 8.6 9.4 9.1 Recent Labs Component Name 09/30/23 0349 12/16/22 0545 12/15/22 0644 12/14/22 1933 ALBUMIN 2.3* 3.6 3.5 3.3* ALKPHOS 76 66 - 63 ALT 28 15 - 18 AST 31 20 - 22 TBIL 0.5 0.9 - 1.2 DBIL 0.171 - - - TPROT 5.8* 6.6 - 6.2* No results for input(s): CDIFFTOXINAB in the last 30850 hours. Recent Labs Component Name 09/24/23 1058 SEDRATE 50* Recent Labs Component Name 09/24/23 1058 04/04/23 0950 CRP 5.64* 0.33 No results for input(s): CK in the last 57263 hours. . Recent Labs Component Name 09/26/23 0455 VANCOPEAK 18.3* Recent Labs Component Name 09/25/23 0141 12/14/22 1933 11/27/22 0950 HGBA1C 6.4* 6.0* 5.6 Recent Labs Component Name 11/27/22 0950 COLORUA Yellow CLARITYUA Clear SPECGRAVUA 1.019 PHUA 5.0 PROTEINUA Negative BLOODUA Negative LEUKOCYTEUA Negative NITRITEUA Negative GLUCOSEUA Negative KETONEUA Negative BILIRUBINUA Negative UROBILINUA Negative Microbiology 09/24 Rt hip aspiration cultures +grp B strep 09/24 Rt hip OR/I&D cultures +grp B strep 09/27 Rt hip OR/I&D cultures neg 09/25 blood cultures neg Radiology Assessment *Right prosthetic hip / hardware infection -06/2022: s/p hip arthroplasty for arthritis ([place], [place]) -08/30/22: s/p hardware removal due to infection, IV abx x 6wks ([place], [place]) -12/08/22: s/p revision arthroplasty, fixation of proximal femoral periprosthetic fracture, Dr. Lafleur -chronic/ongoing rt hip/thigh/groin pain since -no response to iliopsoas tendon injection 08/29/23 -presented to ER 09/24 with progressive sx, CRP 5.64, WBC 11.3 -09/24: arthrocentesis: 98k TNC, 81% neutrophils, cx pending -09/24: s/p rt hip arthrotomy with I&D, placement of abx cement beads, removal of hardware/cerclage cable, wound vac application; cx pending *gastric ulcers / gastritis sp EGD 12/15/22 *coronary artery disease *hyperlipidemia *diabetes *hx of psoriasis * leukocytosis resolved Estimated Creatinine Clearance: 123.2 mL/min (by C-G formula based on SCr of 0.88 mg/dL). Plan -continue cefazolin 2 gm Q 8 hours -duration x 6 weeks (from date of last debridement, next planned 10/02) -with retention of some hardware, will need po suppression long-term -follow OR I&D cultures 09/24 +grp B strep -follow arthrocentesis cultures, 09/24 +grp B strep -follow OR cultures from 09/27 Neg so far -follow blood cultures 09/25 neg -monitor labs -wound vac management per ortho -plan per ortho is OR for I&D and wound closure on 10/02 Dispo: -OPAT via [facility] - -PICC line after surgery Weekly CBC, CMP, UA, sed rate. Fax results to [phone] Please be advised that part of this text was done using voice recognition software. Errors may havebeen missed upon review. Kenna Ocampo MD EW COORDINATOR * Praveen Kaufman MD - 10/02/2023 8:10 AM CST Hospitalist Progress Note Admit Date: 09/24/2023 11:47 AM Hospital Day: 8 Clinical Course This is a 58-year-old male patient past medical history of aortic stenosis, CAD, right hip replacement Rt hip replacement w/ wound vac (2022), hyperlipidemia, CVA, diabetes who presented to the emergency department with complaints of right hip pain. Patient tells me he has been having pain for over1 year but as of yesterday the pain worsened and he is unable to bear weight. New Symptoms Pain controlled NPO for OR Exam Vitals: 10/02/23 1710 10/02/23 1720 10/02/23 1730 10/02/23 1800 BP: 145/70 157/71 161/78 154/83 Pulse: 72 71 71 76 Resp: 16 14 11 14 Temp: 98.6 ??F (37 ??C) SpO2: 96% 97% 97% 94% Weight: Height: General appearance: in no acute distress, cooperative Eyes: sclerae anicteric, conjunctivae pink Lungs: non labored breaths, clear to auscultation Heart: regular rate and rhythm Abdomen: soft and non tender Extremities: moves all extremities, Right hip wound vac Neuro: non focal exam, conversational Skin: psoriasis upper and lower extremities bilaterally Data Reviewed all labs and imaging MEDICATIONS FOR CURRENT ENCOUNTER: ?? SCHEDULED MEDICATIONS: ??? 0.9% NaCl 3 mL Intracatheter q8h ??? 0.9% NaCl 3 mL Intracatheter q8h ??? amLODIPine 10 mg Oral QDAY ??? carvedilol 25 mg Oral BID ??? ceFAZolin 2 g Intravenous q8h ??? cyclobenzaprine 10 mg Oral BID ??? docusate sodium 100 mg Oral BID ??? ferrous sulfate 325 mg Oral QDAY ??? insulin aspart 0-4 Units Subcutaneous AT BEDTIME ??? insulin aspart 0-6 Units Subcutaneous TID WC ??? insulin regular (HumuLIN R; NovoLIN R) 100 units/mL subcutaneous injection 0-6 Units Intravenous Once ??? naloxone 0.04 mg Intravenous post-OP multiple ??? naloxone 0.04 mg Intravenous post-OP multiple ??? pantoprazole EC 40 mg Oral QDAY ??? pregabalin 50 mg Oral BID ??? rosuvastatin 40 mg Oral QAM ??? sertraline 200 mg Oral QDAY ?? PRN MEDICATIONS: ??? SALINE LOCK, INSERT AND MAINTAIN AND 0.9% NaCl AND 0.9% NaCl ??? SALINE LOCK, INSERT AND MAINTAIN AND 0.9% NaCl AND 0.9% NaCl ??? acetaminophen ??? ALPRAZolam ??? bisacodyl ??? dextrose IV for hypoglycemia OR dextrose IV for hypoglycemia OR glucagon ??? fentaNYL (PF) ??? fentaNYL (PF) ??? fentaNYL (PF) ??? glucose (Diabetic Use) gel ??? HYDROmorphone ??? HYDROmorphone ??? HYDROmorphone ??? HYDROmorphone ??? insulin regular (HumuLIN R; NovoLIN R) 100 units/mL subcutaneous injection ??? lactulose ??? ondansetron (disintegrating) ??? ondansetron ??? ondansetron ??? ondansetron ??? ondansetron ??? oxyCODONE-acetaminophen ??? prochlorperazine ??? prochlorperazine ??? prochlorperazine Assessment and Plan Right prosthetic hip, hardware infection Orthopedic surgery consulted I&D, removal of hardware, wound vac placement on 09/24 Repeat OR for I&D on 09/27 Plan for OR again on 10/02 Evaluated by ID IV Ancef Pain control Bowel regimen NPO for OR today Hypertension Continue amlodipine and coreg CVA history: Continue statin Holding aspirin, Plavix ?? Diabetes mellitus Sliding scale insulin Diabetic diet ?? Mood disorder: Continue Wellbutrin, Zoloft ?? Hypertension: Continue Norvasc, Coreg ?? GERD: Protonix Psoriasis Follows with Dermatology at [facility], resolved DVT ppx -Lovenox (HOLD FOR OR ) Disposition: Pending clinical course . Praveen Kaufman MD Date of Service: 10/02/23 Patient was seen by me on 10/02 at around 1040 EW COORDINATOR * Torrey Lafleur MD - 10/02/2023 7:41 AM CST Orthopedic Surgery Progress Note Name: Taylor Rutledge 58 year old, male : 1965 Admit Date: 09/24/2023 11:47 AM October 02, 2023 Subjective Patient seen this morning on rounds. In no acute distress. Data BP 142/68 (BP Cuff Size: A) Pulse 67 Temp 98.5 ??F (36.9 ??C) (Oral) Resp 18 Ht 1.829 m (6') Wt 124.7 kg (275 lb) SpO2 97% Temp (24hrs), Av.3 ??F (36.8 ??C), Min:97.6 ??F (36.4 ??C), Max:98.9 ??F (37.2 ??C) Labs Recent Labs Component Name 09/25/23 0141 09/24/23 1058 12/16/22 0545 WBC 9.9 11.8* 7.1 HGB 10.8* 12.6* 8.2* HCT 33.6* 38.9 26.0* PLTCOUNT 165 194 246 Physical Exam General appearance: No apparent distress. Right lower extremity: Motor: Able to plantarflex and dorsiflex ankle. Able to straight-leg raise, fully extend knee. Sensation to light touch grossly intact over foot. Toes warm and well perfused distally. Wound vac is in place holding suction well. Assessment/Plan 58 year old male with: Active Problems: Inability to ambulate due to hip Pain of right hip Post op day #8 status post ASPIRATION RIGHT HIP UNDER FLUOROSCOPY, FLUOROSCOPY FOR NEEDLE PLACEMENTRIGHT HIP, ARTHROTOMY WITH IRRIGATION AND DEBRIDEMENT RIGHT HIP, REMOVAL OF HARDWARE RIGHT HIP, PLACEMENT OF ANTIBIOTIC BEADS RIGHT HIP X20, WOUND VAC PLACEMENT RIGHT HIP Post op day #5 status post REPEAT IRRIGATION AND DEBRIDEMENT RIGHT HIP, REMOVAL OF ANTIBIOTIC [id number], PLACEMENT OF ANTIBIOTIC BEADS x20, WOUND VAC EXCHANGE RIGHT HIP 1. right lower extremity: WBAT with posterior hip precautions 2. NPO 3. Continue pain control 4. Activity: as tolerated 5. PT/OT 6. Antibiotics per ID 7. DVT PPx: hold this evening for OR tomorrow 8. Plan for return to the OR today 10/02 for Right hip IRRIGATION AND DEBRIDEMENT HIP, WOUND CLOSUREVERSUS WOUND VAC EXCHANGE, REMOVAL VS EXCHANGE ANTIBIOTIC BEADS, POSSIBLE ANTIBIOTIC SPACER VS REVISION OF HARDWARE - Right 9. Please page ortho with questions Jose Villa MD 10/02/2023 7:41 AM Patient seen and examined, agree with above resident note. Site marked This patient? s prior H&P was reviewed, the patient was examined and no change has occurred in the patient's condition since the prior H&P was completed. Briefly, this is a 58 year old male with right hip pain secondary to infected right hip arthroplasty status post previous irrigation and debridements with wound VAC application and antibiotic bead placement with well-fixed revision implants. Exam reveals right hip limitation of and pain with ROM. Complete examination/plan noted above. I personally examined the patient and edited and agree with the above findings in the note Assessment/Plan: Conservative treatment for infected right hip arthroplasty including >12 weeks of PT, NSAIDS, glucosamine/Vit D, ambulatory aids, and weight loss will fail and risk systemic sepsis. Further conservative treatment which has been unsuccessful is contraindicated as it would lead tofurther debility and worsening deconditioning. Symptoms of pain, difficulty ambulating, increased risk of falling due to poor range of motion and instability/locking/and catching, difficulty standing, difficulty with stair climbing and difficulty with personal hygiene are interfering with patient's lifestyle. Will proceed with previously discussed repeat irrigation and debridement of infected right hip arthroplasty with revision of modular components and removal of antibiotic beads with delayedprimary closure and possible wound VAC application Risks, benefits, and alternatives to the surgical procedure were discussed with the patient and present family members. Risks discussed among others but not limited to were: Infection and persistent infection, bleeding/blood transfusion, neurovascular damage, prosthetic joint instability, limb length discrepancy, periprosthetic fracture, failure to improve symptoms, venous thrombosis/pulmonary embolism, and anesthesia complications including myocardial infarction, stroke, or even . We alsodiscussed the procedure at length and answered any of the patient's questions. We also discussed the importance of early motion and early active ankle pumps for DVT/PE prevention and demonstrated this to the patient and had active participation as well. Patient understood the treatment plan and allquestions were answered. In addition to the standard procedural informed consent, the specific risks related to COVID-19 were also discussed, including the possibility of an infection being present with a negative test, the risk of cristin COVID-19, and the known implications of this infection. See consent form. The patient is admitted with a diagnosis or diagnoses of infected right hip arthroplasty status post previous irrigation and debridements and current medical/postoperative needs are included below. The patient has the following complex medical factors: No current facility-administered medications on file prior to encounter. Current Outpatient Medications on File Prior to Encounter Medication Sig Dispense Refill ??? amLODIPine (Norvasc) 5 MG tablet Take 1 (one) tablet by mouth once daily ??? aspirin (Aspirin 81) 81 MG chew tablet Take 1 (one) tablet by mouth 2 times daily (Patient not taking: Reported on 08/29/2023) 70 tablet 0 ??? azithromycin (Zithromax) 500 MG tablet Take 1 (one) tablet by mouth 1 Hour prior to Dental Appointment Reasons: Treatment to Prevent Infection in Prosthetic Arthroplasty (Patient not taking: Reported on 09/24/2023) 1 tablet PRN ??? azithromycin (Zithromax) 500 MG tablet Take 1 (one) tablet by mouth 1 Hour prior to Dental Appointment Reasons: Treatment to Prevent Infection in Prosthetic Arthroplasty (Patient not taking: Reported on 09/24/2023) 1 tablet PRN ??? Bacillus Coagulans-Inulin (Probiotic) 1-250 BILLION-MG CAPS ??? betamethasone dipropionate (Diprosone) 0.05 % ointment as needed (Patient not taking: Reported on 09/24/2023) ??? buPROPion XL 24hr (Wellbutrin-XL) 300 MG tablet ??? carvedilol (Coreg) 25 MG tablet Take 1 (one) tablet by mouth 2 times daily ??? cloNIDine (Catapres) 0.1 MG tablet Take 1 (one) tablet by mouth 2 times daily ??? clopidogrel (plaVIX) 75 MG tablet Take 1 (one) tablet by mouth once daily Start taking 12/19/22. ??? cyclobenzaprine (Flexeril) 10 MG tablet Take 1 (one) tablet by mouth 2 times daily ??? Docusate Sodium (DSS) 100 MG Take 100 mg by mouth 2 times daily ??? dulaglutide (Trulicity) 1.5 MG/0.5ML injection ??? ergocalciferol (Drisdol) 1.25 MG (24412 UT) capsule Take 1 (one) capsule by mouth ??? ferrous sulfate 325 (65 FE) MG tablet Take 1 (one) tablet by mouth once daily ??? losartan-hydroCHLOROthiazide (Hyzaar) 100-12.5 MG tablet Take 1 (one) tablet by mouth every morning ??? metFORMIN (Glucophage) 1000 MG tablet Take 1 (one) tablet by mouth 2 times daily ??? Multiple Vitamins-Minerals (One-A-Day Mens Health Formula) TABS ??? pantoprazole EC (Protonix) 40 MG tablet Take 1 (one) tablet by mouth once daily Reasons: Stomach Ulcer 30 tablet 2 ??? pregabalin (Lyrica) 50 MG capsule Take 1 (one) capsule by mouth 2 times daily 70 capsule 0 ??? rosuvastatin (Crestor) 20 MG tablet Take 2 (two) tablets by mouth every morning ??? sertraline (Zoloft) 50 MG tablet Take 1 (one) tablet by mouth once daily Past Medical History: Diagnosis Date ??? Aortic stenosis mod-sev on 2022 echo ??? CAD (coronary artery disease) ??? High blood pressure ??? LVH (left ventricular hypertrophy) ??? Mixed hyperlipidemia ??? Restless leg syndrome ??? Sleep apnea uses cpap ??? Stroke ([facility]) 2021 balance residual ??? Type 2 diabetes mellitus without complications ([facility]) Past Surgical History: Procedure Laterality Date ??? Appendectomy ??? Cardiac Catherization 2018 no intervetion ??? COLONOSCOPY ??? DEBRIDEMENT Right 09/27/2023 Right; REPEAT IRRIGATION AND DEBRIDEMENT RIGHT HIP, REMOVAL OF ANTIBIOTIC BEADS x20, PLACEMENT OF ANTIBIOTIC BEADS x20, WOUND VAC EXCHANGE RIGHT HIP ??? EGD ??? ENDOSCOPY, UPPER N/A 12/15/2022 N/A; ESOPHAGOGASTRODUODENOSCOPY (EGD) DIAGNOSTIC ??? ENDOSCOPY, UPPER 12/15/2022 ESOPHAGOGASTRODUODENOSCOPY (EGD) BIOPSY ??? GENERAL SURGERY PROCEDURE Right 12/08/2022 Right; PREVENA/ WOUND VAC APPLICATION RIGHT HIP ??? HIP ARTHROPLASTY, REVISION Right 12/08/2022 Right; REVISION RIGHT TOTAL HIP ARTHROPLASTY BOTH COMPONENTS, REMOVAL OF ANTIBIOTIC SPCER RIGHT HIP ??? HIP ARTHROPLASTY, TOTAL Right ??? MINOR PROCEDURE/DIAGNOSTIC EXAM Right 09/24/2023 Right; ASPIRATION RIGHT HIP UNDER FLUOROSCOPY, FLUOROSCOPY FOR NEEDLE PLACEMENT RIGHT HIP, ARTHROTOMY WITH IRRIGATION AND DEBRIDEMENT RIGHT HIP, REMOVAL OF HARDWARE RIGHT HIP, PLACEMENT OF ANTIBIOTICBEADS RIGHT HIP X20, WOUND VAC PLACEMENT RIGHT HIP ??? OTHER SURGERY Right 08/30/2022 removed hip and placed antibiotic spacer ??? Rotator Cuff Repair Right ??? SHOULDER ARTHROPLASTY, TOTAL Left Social History Occupational History ??? Not on file Tobacco Use ??? Smoking status: Never ??? Smokeless tobacco: Never Vaping Use ??? Vaping Use: Never used Substance and Sexual Activity ??? Alcohol use: Not Currently ??? Drug use: No ??? Sexual activity: Yes Partners: Female Family History Problem Relation Name Age of Onset ??? Diabetes Mother Status: Alive ??? Hypertension Mother ??? Cancer Father rectal; Status: This dictation was performed with the use of [employer] voice recognition and errors with transcriptionmay occur. Please see resident's note for further details. Torrey Lafleur MD EW COORDINATOR * Sanjay Kumar RN - 10/02/2023 6:30 AM CST Problem: Pain/Discomfort Goal: Patient exhibits reduced pain/discomfort as evidenced by pain scores Outcome: Progressing Problem: Fall Risk Goal: Fall risk and fall related injury risk are minimized (interventions related to the fall risk can be found in the flowsheet documentation) Outcome: Progressing EW COORDINATOR * Bailey Jones RN - 10/01/2023 5:51 PM CST Problem: Pain/Discomfort Goal: Patient exhibits reduced pain/discomfort as evidenced by pain scores Outcome: Progressing Goal: Patient uses pharmacological and non-pharmacological pain management strategies. Outcome: Progressing Goal: Patient verbalizes acceptable level of pain relief and ability to engage in desired activity. Outcome: Progressing Problem: Fall Risk Goal: Fall risk and fall related injury risk are minimized (interventions related to the fall risk can be found in the flowsheet documentation) Outcome: Progressing Problem: General Goal: STG - Patient will Description: Sup to sit mod I Outcome: Progressing Goal: STG - Patient will Description: Ambulate with LRD mod I for 200' Outcome: Progressing Goal: STG - Patient will Description: Complete 1 step with SBA and LRD Outcome: Progressing EW COORDINATOR * Yasemin De, RD/LD - 10/01/2023 1:37 PM CST BRIEF SYNOPSIS: Nutrition Risk Identified but does not meet malnutrition criteria. GI Concerns: None Body mass index is 37.3 kg/m??. Nutrition Plan: ? Current diet order: Consistent Carb Standard ? Current supplement order: Vanilla Ensure HP BID Recommendation to Physician: None Discharge Needs: None CLINICAL NUTRITION INITIAL ASSESSMENT: Pt seen for LOS. 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 S/p I&D w/ hardware removal on 09/24. Plans for repeat I&D, possible revision tomorrow. On a Diabetic Consist Carb diet. Good appetite reported. Normally eating 3 meals daily at home. Denies any GI symptoms. P.O.Intake for the past 72 hrs: % Meal Taken Av.3 % Min: 50 % Max: 100 %. Pt reports normally drinking Premier Protein at home. Will send Ensure HP BID in vanilla flavor for patient. Ensure High Protein for Muscle Health provides 160 calories ,16 grams protein and 19 grams of carb per 8 oz serving. Education provided on increased calorie/protein needs to optimize healing of infection and post surgery. Receiving Protonix. Last BM 09/30, taking Colace. Labs reviewed. Elevated glucose 2/2 T2DM. Glucose ranging 107-210 mg/dL over the past 48 hr. Novolog ordered for BG control. Wt stable per patient. EMR shows 3# wt loss x 10 months, not significant. Med/Surg History and Clinical Diagnoses: Right prosthetic hip hardware infection, HTN, T2DM, GERD, Mood Disorder; PMH: CVA, CAD, HLD, RLS Height: 182.9 cm (6') Recent Weights/Methods 12/08/2022 0823 12/14/2022 1847 12/16/2022 0521 04/04/2023 0853 07/10/2023 0956 07/12/2023 0850 08/29/2023 1151 09/24/2023 1813 Weight: 126.1 kg (278 lb) 122 kg (268 lb 15.4 oz) 121 kg (266 lb 11.2 oz) 125.2 kg (276 lb) 124.7 kg (275 lb) 127.9 kg (282 lb) 124.7 kg (275 lb) 124.7 kg (275 lb) Weight Method : Stated -- Bedscale -- -- -- -- Bedscale IBW: 178# 154% IBW BMI: Body mass index is 37.3 kg/m??. BMI Range: Severely Obese Class 2 Usual weight/lb: 275# (stated) Unintentional weight change: None reported PO INTAKE Current diet order: Consistent Carb Standard Nutrition recommendation: agree with current nutrition order Food Allergies: No known food allergies Last % Meal Taken: 100 % (09/30/23 1800) 48 hr PO INTAKE % Meal Taken Av % Min: 100 % Max: 100 % Current supplement order: Vanilla Ensure HP BID Supplement(s) Consumed- Last 48 hours None Pain affecting intake: No Chewing/Swallowing: None GI Concerns: None Estimated Needs: KCAL: 2425 (30 kcal/kg IBW) Protein (g): 97 (1.2 g/kg IBW) Fluid (ml): 1 ml/kcal Needs based on: Kcal/kg- (Comment) Recommended Access Route: PO Labs: Recent Labs Component Name 09/30/23 0349 09/25/23 0141 SODIUM - 138 POTASSIUM - 4.0 CHLORIDE - 106 CO2 - 22 BUN - 14 CREATININE - 0.88 GLUCOSE - 182* CALCIUM - 8.6 ALBUMIN 2.3* - ALKPHOS 76 - ALT 28 - AST 31 - TBIL 0.5 - TPROT 5.8* - EGFR - >90 Recent Labs Component Name 12/15/22 0644 12/14/22 1933 07/16/14 0019 PHOS 3.0 3.5 2.6 Recent Labs Component Name 09/25/23 0141 12/14/22 1933 11/27/22 0950 HGBA1C 6.4* 6.0* 5.6 No results for input(s): PREALBUMIN in the last 50614 hours. Patient Vitals for the past 30 hrs: Glucose Bedside (mg/dL) 10/01/23 1122 198 mg/dL 10/01/23 0730 115 mg/dL 09/30/23 2046 152 mg/dL 09/30/23 1551 170 mg/dL 09/30/23 1119 194 mg/dL PERTINENT MEDICATIONS FOR CURRENT ENCOUNTER: ?? SCHEDULED MEDICATIONS: ?? 0.9% NaCl injection 3 mL, Intracatheter, q8h ?? 0.9% NaCl injection 3 mL, Intracatheter, q8h ?? amLODIPine (Norvasc) tablet 10 mg, Oral, QDAY ?? carvedilol (Coreg) tablet 25 mg, Oral, BID ?? ceFAZolin (Ancef) 2 g in 0.9% NaCl IV 50 mL IVPB, Intravenous, q8h ?? cyclobenzaprine (Flexeril) tablet 10 mg, Oral, BID ?? docusate sodium (Colace) capsule 100 mg, Oral, BID ?? ferrous sulfate tablet 325 mg, Oral, QDAY ?? insulin aspart (NovoLOG) pen 0-4 Units, Subcutaneous, AT BEDTIME ?? insulin aspart (NovoLOG) pen 0-6 Units, Subcutaneous, TID WC ?? pantoprazole EC (Protonix) tablet 40 mg, Oral, QDAY ?? pregabalin (Lyrica) capsule 50 mg, Oral, BID ?? rosuvastatin (Crestor) tablet 40 mg, Oral, QAM ?? sertraline (Zoloft) tablet 200 mg, Oral, QDAY ?? CONTINUOUS MEDICATIONS: Skin/Wound: Right Hip Surgical Incision Stools: Last BM (Date): 09/30/23 Stool Appearance : Formed;Soft;Other (Comment) (pt reports) (09/30/23805) Stool Amount: Large (09/30/23805) Nutrition Diagnostic Statement: Increased nutrient needs related to:: increased demands post surgery;increased demands for wound healing as evidenced by:: estimated protein needs ..;estimated energy needs .. Nutrition Intervention: Meals and snacks:;Medical Food Supplements:;Nutrition Education - Content Education needed: Supplements;High Protein Education Provided: Yes Education provided on increased protein needs post surgery and with infections to optimize healing.Explained the benefit of Oral Nutrition Supplements (ONS) to aid with meeting increased calorie andprotein needs. Expected level of compliance: Good Following at high nutritional risk. Monitoring: PO intake Acceptance of oral nutrition supplement and intake Weight Labs GI function/bowel movements Skin Evaluation: Nutrition Goal: Total intake will meet estimated nutrient needs Nutrition Goal Timeframe: Ongoing Sharron Combs RD/SLICK 10/01/2023 1:40 PM Ascom [id number] EW COORDINATOR * Praveen Kaufman MD - 10/01/2023 1:16 PM CST Hospitalist Progress Note Admit Date: 09/24/2023 11:47 AM Hospital Day: 7 Clinical Course This is a 58-year-old male patient past medical history of aortic stenosis, CAD, right hip replacement Rt hip replacement w/ wound vac (2022), hyperlipidemia, CVA, diabetes who presented to the emergency department with complaints of right hip pain. Patient tells me he has been having pain for over1 year but as of yesterday the pain worsened and he is unable to bear weight. New Symptoms Pain controlled Appetite is fair Exam Vitals: 10/01/23 0001 10/01/23 0533 10/01/23 0729 10/01/23 1122 BP: 126/64 132/72 138/77 133/78 Pulse: 80 77 73 70 Resp: 18 18 18 18 Temp: 98.6 ??F (37 ??C) 98.6 ??F (37 ??C) 97.6 ??F (36.4 ??C) 97.9 ??F (36.6 ??C) SpO2: 92% 94% 93% 95% Weight: Height: General appearance: in no acute distress, cooperative Eyes: sclerae anicteric, conjunctivae pink Lungs: non labored breaths, clear to auscultation Heart: regular rate and rhythm Abdomen: soft and non tender Extremities: moves all extremities, Right hip wound vac Neuro: non focal exam, conversational Skin: psoriasis upper and lower extremities bilaterally Data Reviewed all labs and imaging MEDICATIONS FOR CURRENT ENCOUNTER: ?? SCHEDULED MEDICATIONS: ??? 0.9% NaCl 3 mL Intracatheter q8h ??? 0.9% NaCl 3 mL Intracatheter q8h ??? amLODIPine 10 mg Oral QDAY ??? carvedilol 25 mg Oral BID ??? ceFAZolin 2 g Intravenous q8h ??? cyclobenzaprine 10 mg Oral BID ??? docusate sodium 100 mg Oral BID ??? enoxaparin 40 mg Subcutaneous QDAY ??? ferrous sulfate 325 mg Oral QDAY ??? insulin aspart 0-4 Units Subcutaneous AT BEDTIME ??? insulin aspart 0-6 Units Subcutaneous TID WC ??? naloxone 0.04 mg Intravenous post-OP multiple ??? naloxone 0.04 mg Intravenous post-OP multiple ??? pantoprazole EC 40 mg Oral QDAY ??? pregabalin 50 mg Oral BID ??? rosuvastatin 40 mg Oral QAM ??? sertraline 200 mg Oral QDAY ?? PRN MEDICATIONS: ??? SALINE LOCK, INSERT AND MAINTAIN AND 0.9% NaCl AND 0.9% NaCl ??? SALINE LOCK, INSERT AND MAINTAIN AND 0.9% NaCl AND 0.9% NaCl ??? acetaminophen ??? ALPRAZolam ??? bisacodyl ??? dextrose IV for hypoglycemia OR dextrose IV for hypoglycemia OR glucagon ??? fentaNYL (PF) ??? glucose (Diabetic Use) gel ??? HYDROmorphone ??? HYDROmorphone ??? HYDROmorphone ??? insulin regular (HumuLIN R; NovoLIN R) 100 units/mL subcutaneous injection ??? lactulose ??? ondansetron (disintegrating) ??? ondansetron ??? ondansetron ??? ondansetron ??? oxyCODONE-acetaminophen ??? prochlorperazine ??? prochlorperazine ??? prochlorperazine Assessment and Plan Right prosthetic hip, hardware infection Orthopedic surgery consulted I&D, removal of hardware, wound vac placement on 09/24 Repeat OR for I&D on 09/27 Plan for OR again on 10/02 Evaluated by ID IV Ancef Pain control Bowel regimen NPO midnight Hypertension Continue amlodipine and coreg CVA history: Continue statin Holding aspirin, Plavix ?? Diabetes mellitus Sliding scale insulin Diabetic diet ?? Mood disorder: Continue Wellbutrin, Zoloft ?? Hypertension: Continue Norvasc, Coreg ?? GERD: Protonix Psoriasis Follows with Dermatology at [facility] Constipation, resolved DVT ppx -Lovenox (HOLD FOR OR TOMORROW) Disposition: Pending clinical course . OR Sunday Praveen Kaufman MD Date of Service: 10/01/23 Patient was seen by me on 10/01 at around 1045 EW COORDINATOR * Deena Kline RN - 10/01/2023 10:30 AM CST Care Coordination Progress Note Anticipated level of care at discharge: Home Health - IV and Home Health Care: Anticipated level of care provider: Kelsy Wasserman [facility]: Anticipated Discharge Date: 10/02/23: Discharge Plan: Patient admitted for right prosthetic hip hardware infection. WBAT with posterior hip precautions NPO at midnight, pain management, activity as tolerated, OR tomorrow, 10.02.23 for right hip irrigation and debridement hip, wound closure versus wound vac exchange, removal vs exchange antibiotic beads, possible revision of hardware. CM will continue to follow POC and provide additional assistance as needed. Orientation Level: Oriented X4: Family Support (Name and Phone): Extended Emergency Contact Information Primary Emergency Contact: Marguerite Rutledge [address]: [address] [place] [phone] Relation: Spouse Transportation at Discharge: : READMISSION RISK SCORE is 12 at 10:30 AM 10/01/2023.: Name: Deena Kline RN, BSN, MSN, CM /[phone] EW COORDINATOR * Kenna Ocampo MD - 10/01/2023 9:47 AM CST Infectious Diseases Consult Note Patient's Primary Care Physician: Faisal Richardson DO Reason for Consultation: Rt prosthetic hip joint infection Referring Physcian: No admitting provider for patient encounter. Name: Taylor Rutledge Age: [age] year old 5 Chief Complaint/History of Present Illness Chart reviewed Complains of right hip pain S/p OR 09/27 per ortho for repeat I&D, wound vac re-application, cx neg Cultures from rt hip 09/24 +Grp B strep Narrowed to cefazolin 09/27 No new complaints Ortho plans rpt I&D and wound closure on 10/02 No new complaints today PICC also ordered Objective: Review of Systems General: no fatigue/fever/chills Skin: no rashes/lesions Eyes: no vision problems/no conjunctival lesions HENT: no oral lesion/no hearing problems Respiratory: no cough/sob Cardiovascular: no cp/palpitations Gastrointestinal: no nausea/diarrhea Genitourinary: no dysuria/hematuria Musculoskeletal: no joint pain/no muscle pain; rt groin pain Neurological: no hope/seizures Psych: no depression/anxiety Exam Vitals: 09/30/23 2127 10/01/23 0001 10/01/23 0533 10/01/23 0729 BP: 137/73 126/64 132/72 138/77 Pulse: 77 80 77 73 Resp: 18 18 18 18 Temp: 99.4 ??F (37.4 ??C) 98.6 ??F (37 ??C) 98.6 ??F (37 ??C) 97.6 ??F (36.4 ??C) SpO2: 94% 92% 94% 93% Weight: Height: Temp (30hrs) Max:99.4 ??F (37.4 ??C) General appearance: cooperative, no distress, appears stated age, alert HEENT: ncat, vision intact Lungs: clear to auscultation bilaterally Heart: regular rate and rhythm, S1, S2 normal, no murmur, Abdomen: soft, non-tender; bowel sounds normal Extremities: extremities normal, atraumatic, no cyanosis or edema Rt hip wound vac in place Skin: no rash/lesion, has some old psoriatic rashes around right hip but not expansive or cellulitic Lines: MEDICATIONS FOR CURRENT ENCOUNTER: SCHEDULED MEDICATIONS: 0.9% NaCl injection 3 mL, Intracatheter, q8h 0.9% NaCl injection 3 mL, Intracatheter, q8h amLODIPine (Norvasc) tablet 10 mg, Oral, QDAY carvedilol (Coreg) tablet 25 mg, Oral, BID ceFAZolin (Ancef) 2 g in 0.9% NaCl IV 50 mL IVPB, Intravenous, q8h cyclobenzaprine (Flexeril) tablet 10 mg, Oral, BID docusate sodium (Colace) capsule 100 mg, Oral, BID enoxaparin (Lovenox) injection 40 mg, Subcutaneous, QDAY ferrous sulfate tablet 325 mg, Oral, QDAY insulin aspart (NovoLOG) pen 0-4 Units, Subcutaneous, AT BEDTIME insulin aspart (NovoLOG) pen 0-6 Units, Subcutaneous, TID WC pantoprazole EC (Protonix) tablet 40 mg, Oral, QDAY pregabalin (Lyrica) capsule 50 mg, Oral, BID rosuvastatin (Crestor) tablet 40 mg, Oral, QAM ?? sertraline (Zoloft) tablet 200 mg, Oral, QDAY Data Recent Labs Component Name 09/25/23 0141 09/24/23 1058 12/16/22 0545 WBC 9.9 11.8* 7.1 HGB 10.8* 12.6* 8.2* HCT 33.6* 38.9 26.0* PLTCOUNT 165 194 246 Recent Labs Component Name 09/25/23 0141 09/24/23 1058 12/16/22 0545 SODIUM 138 137 139 POTASSIUM 4.0 4.2 3.9 CHLORIDE 106 105 108* CO2 23 BUN 14 14 11 CREATININE 0.88 0.90 0.81 GLUCOSE 182* 178* 126* CALCIUM 8.6 9.4 9.1 Recent Labs Component Name 09/30/23 0349 12/16/22 0545 12/15/22 0644 12/14/221932 ALBUMIN 2.3* 3.6 3.5 3.3* ALKPHOS 76 66 - 63 ALT 28 15 - 18 AST 31 20 - 22 TBIL 0.5 0.9 - 1.2 DBIL 0.171 - - - TPROT 5.8* 6.6 - 6.2* No results for input(s): CDIFFTOXINAB in the last 90972 hours. Recent Labs Component Name 09/24/23 1058 SEDRATE 50* Recent Labs Component Name 09/24/23 1058 04/04/23 0950 CRP 5.64* 0.33 No results for input(s): CK in the last 41449 hours. . Recent Labs Component Name 09/26/23 0455 VANCOPEAK 18.3* Recent Labs Component Name 09/25/23 0141 12/14/22 1933 11/27/22 0950 HGBA1C 6.4* 6.0* 5.6 Recent Labs Component Name 11/27/22 0950 COLORUA Yellow CLARITYUA Clear SPECGRAVUA 1.019 PHUA 5.0 PROTEINUA Negative BLOODUA Negative LEUKOCYTEUA Negative NITRITEUA Negative GLUCOSEUA Negative KETONEUA Negative BILIRUBINUA Negative UROBILINUA Negative Microbiology 2/19 Rt hip aspiration cultures +grp B strep 09/24 Rt hip OR/I&D cultures +grp B strep 09/27 Rt hip OR/I&D cultures neg 09/25 blood cultures neg Radiology Assessment *Right prosthetic hip / hardware infection -06/2022: s/p hip arthroplasty for arthritis ([place], [place]) -08/30/22: s/p hardware removal due to infection, IV abx x 6wks ([place], [place]) -12/08/22: s/p revision arthroplasty, fixation of proximal femoral periprosthetic fracture, Dr. Lafleur -chronic/ongoing rt hip/thigh/groin pain since -no response to iliopsoas tendon injection 08/29/23 -presented to ER 09/24 with progressive sx, CRP 5.64, WBC 11.3 -09/24: arthrocentesis: 98k TNC, 81% neutrophils, cx pending -09/24: s/p rt hip arthrotomy with I&D, placement of abx cement beads, removal of hardware/cerclage cable, wound vac application; cx pending *gastric ulcers / gastritis sp EGD 12/15/22 *coronary artery disease *hyperlipidemia *diabetes *hx of psoriasis Estimated Creatinine Clearance: 123.2 mL/min (by C-G formula based on SCr of 0.88 mg/dL). Plan -continue cefazolin 2 gm Q 8 hours -duration x 6 weeks (from date of last debridement, next planned 10/02) -with retention of some hardware, will need po suppression long-term -follow OR I&D cultures 09/24 +grp B strep -follow arthrocentesis cultures, 09/24 +grp B strep -follow OR cultures from 09/27 Neg so far -follow blood cultures 09/25 neg -monitor labs -wound vac management per ortho -plan per ortho is OR for I&D and wound closure on 10/02 Dispo: -OPAT via [facility] - -PICC line ordered Weekly CBC, CMP, UA, sed rate. Fax results to [phone] Please be advised that part of this text was done using voice recognition software. Errors may havebeen missed upon review. Kenna Ocampo MD EW COORDINATOR * Jose Villa MD - 10/01/2023 9:16 AM CST Orthopedic Surgery Progress Note Name: Taylor Rutledge 58 year old, male : 1965 Admit Date: 09/24/2023 11:47 AM October 01, 2023 Subjective Patient seen this morning on rounds. In no acute distress. Data BP 138/77 (BP Cuff Size: A) Pulse 73 Temp 97.6 ??F (36.4 ??C) (Oral) Resp 18 Ht 1.829 m (6') Wt 124.7 kg (275 lb) SpO2 93% Temp (24hrs), Av.5 ??F (36.9 ??C), Min:97.6 ??F (36.4 ??C), Max:99.4 ??F (37.4 ??C) Labs Recent Labs Component Name 09/25/23 0141 09/24/23 1058 12/16/22 0545 WBC 9.9 11.8* 7.1 HGB 10.8* 12.6* 8.2* HCT 33.6* 38.9 26.0* PLTCOUNT 165 194 246 Physical Exam General appearance: No apparent distress. Right lower extremity: Motor: Able to plantarflex and dorsiflex ankle. Able to straight-leg raise, fully extend knee. Sensation to light touch grossly intact over foot. 2+DP, Toes warm and well perfused distally. Wound vac is in place holding suction well. Assessment/Plan 58 year old male with: Active Problems: Inability to ambulate due to hip Pain of right hip Post op day #7 status post ASPIRATION RIGHT HIP UNDER FLUOROSCOPY, FLUOROSCOPY FOR NEEDLE PLACEMENTRIGHT HIP, ARTHROTOMY WITH IRRIGATION AND DEBRIDEMENT RIGHT HIP, REMOVAL OF HARDWARE RIGHT HIP, PLACEMENT OF ANTIBIOTIC BEADS RIGHT HIP X20, WOUND VAC PLACEMENT RIGHT HIP Post op day #4 status post REPEAT IRRIGATION AND DEBRIDEMENT RIGHT HIP, REMOVAL OF ANTIBIOTIC [id number], PLACEMENT OF ANTIBIOTIC BEADS x20, WOUND VAC EXCHANGE RIGHT HIP 1. right lower extremity: WBAT with posterior hip precautions 2. Ok for diet today, NPO at midnight 3. Continue pain control 4. Activity: as tolerated 5. PT/OT 6. Antibiotics per ID 7. DVT PPx: hold this evening for OR tomorrow 8. Plan for return to the OR today 10/02 for Right hip IRRIGATION AND DEBRIDEMENT HIP, WOUND CLOSUREVERSUS WOUND VAC EXCHANGE, REMOVAL VS EXCHANGE ANTIBIOTIC BEADS, POSSIBLE REVISION OF HARDWARE - Right 9. NPO at midnight 10. Please page ortho with questions Jose Villa MD 10/01/2023 9:17 AM EW COORDINATOR * Praveen Kaufman MD - 09/30/2023 10:08 AM CST Hospitalist Progress Note Admit Date: 09/24/2023 11:47 AM Hospital Day: 6 Clinical Course This is a 58-year-old male patient past medical history of aortic stenosis, CAD, right hip replacement Rt hip replacement w/ wound vac (2022), hyperlipidemia, CVA, diabetes who presented to the emergency department with complaints of right hip pain. Patient tells me he has been having pain for over1 year but as of yesterday the pain worsened and he is unable to bear weight. New Symptoms Pain controlled Appetite is fair Exam Vitals: 09/29/23 2105 09/30/23 0001 09/30/23 0515 09/30/23 0736 BP: 154/73 127/66 159/69 146/72 Pulse: 76 75 73 73 Resp: 18 18 18 18 Temp: 99.2 ??F (37.3 ??C) 99.1 ??F (37.3 ??C) 97.5 ??F (36.4 ??C) 98.3 ??F (36.8 ??C) SpO2: 95% 91% 94% 99% Weight: Height: General appearance: in no acute distress, cooperative Eyes: sclerae anicteric, conjunctivae pink Lungs: non labored breaths, clear to auscultation Heart: regular rate and rhythm Abdomen: soft and non tender Extremities: moves all extremities, Right hip wound vac Neuro: non focal exam, conversational Skin: psoriasis upper and lower extremities bilaterally Data Reviewed all labs and imaging MEDICATIONS FOR CURRENT ENCOUNTER: ?? SCHEDULED MEDICATIONS: ??? 0.9% NaCl 3 mL Intracatheter q8h ??? 0.9% NaCl 3 mL Intracatheter q8h ??? amLODIPine 10 mg Oral QDAY ??? carvedilol 25 mg Oral BID ??? ceFAZolin 2 g Intravenous q8h ??? cyclobenzaprine 10 mg Oral BID ??? docusate sodium 100 mg Oral BID ??? enoxaparin 40 mg Subcutaneous QDAY ??? ferrous sulfate 325 mg Oral QDAY ??? insulin aspart 0-4 Units Subcutaneous AT BEDTIME ??? insulin aspart 0-6 Units Subcutaneous TID WC ??? naloxone 0.04 mg Intravenous post-OP multiple ??? naloxone 0.04 mg Intravenous post-OP multiple ??? pantoprazole EC 40 mg Oral QDAY ??? pregabalin 50 mg Oral BID ??? rosuvastatin 40 mg Oral QAM ??? sertraline 200 mg Oral QDAY ?? PRN MEDICATIONS: ??? SALINE LOCK, INSERT AND MAINTAIN AND 0.9% NaCl AND 0.9% NaCl ??? SALINE LOCK, INSERT AND MAINTAIN AND 0.9% NaCl AND 0.9% NaCl ??? acetaminophen ??? ALPRAZolam ??? bisacodyl ??? dextrose IV for hypoglycemia OR dextrose IV for hypoglycemia OR glucagon ??? fentaNYL (PF) ??? glucose (Diabetic Use) gel ??? HYDROmorphone ??? HYDROmorphone ??? HYDROmorphone ??? insulin regular (HumuLIN R; NovoLIN R) 100 units/mL subcutaneous injection ??? lactulose ??? ondansetron (disintegrating) ??? ondansetron ??? ondansetron ??? ondansetron ??? oxyCODONE-acetaminophen ??? prochlorperazine ??? prochlorperazine ??? prochlorperazine Assessment and Plan Right prosthetic hip, hardware infection Orthopedic surgery consulted I&D, removal of hardware, wound vac placement on 09/24 Repeat OR for I&D on 09/27 Plan for OR again on 10/02 Evaluated by ID IV Ancef Pain control Bowel regimen Hypertension Continue amlodipine and coreg CVA history: Continue statin Holding aspirin, Plavix ?? Diabetes mellitus Sliding scale insulin Diabetic diet ?? Mood disorder: Continue Wellbutrin, Zoloft ?? Hypertension: Continue Norvasc, Coreg ?? GERD: Protonix Psoriasis Follows with Dermatology at [facility], resolved DVT ppx -Lovenox Disposition: Pending clinical course . OR Sunday Praveen Kaufman MD Date of Service: 09/30/23 Patient was seen by me on 09/30 at around 0845 EW COORDINATOR * Ashsih Barnett MD - 09/30/2023 8:34 AM CST Infectious Diseases Consult Note Patient's Primary Care Physician: Faisal Richardson DO Reason for Consultation: Rt prosthetic hip joint infection Referring Physcian: No admitting provider for patient encounter. Name: Taylor Rutledge Age: [age] year old 4 Chief Complaint/History of Present Illness HPI: Taylor Rutledge is a 58 year old White/Caucasianmale admitted 09/24 for evaluation of right hip pain. Hx of right hip arthroplasty in 06/2022 at [facility] in [place], [place]. Due to infectionhe is s/p removal or arthroplasty in 08/30/22 at [facility]; received IV antibiotics x 6 weeks via PICC line - he does not recall name of abx or organism/infection treated. Underwent revision right total hip arthroplasty, fixation of proximal femoral periprosthetic fracture in 12/08/22 with . Has hx of coronary artery disease, dm, hypertension, hyperlipidemia. Saw Dr. Lafleur in office on 09/11/23 with ongoing right hip /groin pain. Has received injection into the right iliopsoas tendon in 08/29/23 which did not help. As inflammatory markers were normal, plan at this visit was continued PT. However, he presented to the ER on 09/24 with worsening symptoms. On presentation low grade temp to 99, wbc 11.8. CRP 5.64 (0.33 in 03/2023). XRAY right hip shows hip prosthesis in normal alig nment without fracture or dislocation, no bone destruction. CT right hip shows fluid or soft tissuethickening lateral to the right greater trochanter without rim-enhancing fluid collection. Underwent hip arthrocentesis with 98k TNC 81% neutrophils. Cultures pending. Taken to OR on 09/24 for I&Dof right hip, cultures pending; wvac application. ID consulted. Interim Events: No fevers Normal wbc S/p OR 09/27 per ortho for repeat I&D, wound vac re-application, cx neg Cultures from rt hip 09/24 +Grp B strep Narrowed to cefazolin 09/27 No new complaints Ortho plans rpt I&D and wound closure on 10/02 No new complaints today PICC also ordered Objective: Review of Systems General: no fatigue/fever/chills Skin: no rashes/lesions Eyes: no vision problems/no conjunctival lesions HENT: no oral lesion/no hearing problems Respiratory: no cough/sob Cardiovascular: no cp/palpitations Gastrointestinal: no nausea/diarrhea Genitourinary: no dysuria/hematuria Musculoskeletal: no joint pain/no muscle pain; rt groin pain Neurological: no hope/seizures Psych: no depression/anxiety Exam Vitals: 09/29/23 2105 09/30/23 0001 09/30/23 0515 09/30/23 0736 BP: 154/73 127/66 159/69 146/72 Pulse: 76 75 73 73 Resp: 18 18 18 18 Temp: 99.2 ??F (37.3 ??C) 99.1 ??F (37.3 ??C) 97.5 ??F (36.4 ??C) 98.3 ??F (36.8 ??C) SpO2: 95% 91% 94% 99% Weight: Height: Temp (30hrs) Max:99.2 ??F (37.3 ??C) General appearance: cooperative, no distress, appears stated age, alert HEENT: ncat, vision intact Lungs: clear to auscultation bilaterally Heart: regular rate and rhythm, S1, S2 normal, no murmur, Abdomen: soft, non-tender; bowel sounds normal Extremities: extremities normal, atraumatic, no cyanosis or edema Rt hip wound vac in place Skin: no rash/lesion, has some old psoriatic rashes around right hip but not expansive or cellulitic Lines: MEDICATIONS FOR CURRENT ENCOUNTER: SCHEDULED MEDICATIONS: 0.9% NaCl injection 3 mL, Intracatheter, q8h 0.9% NaCl injection 3 mL, Intracatheter, q8h amLODIPine (Norvasc) tablet 10 mg, Oral, QDAY carvedilol (Coreg) tablet 25 mg, Oral, BID ceFAZolin (Ancef) 2 g in 0.9% NaCl IV 50 mL IVPB, Intravenous, q8h cyclobenzaprine (Flexeril) tablet 10 mg, Oral, BID docusate sodium (Colace) capsule 100 mg, Oral, BID enoxaparin (Lovenox) injection 40 mg, Subcutaneous, QDAY ferrous sulfate tablet 325 mg, Oral, QDAY insulin aspart (NovoLOG) pen 0-4 Units, Subcutaneous, AT BEDTIME insulin aspart (NovoLOG) pen 0-6 Units, Subcutaneous, TID WC pantoprazole EC (Protonix) tablet 40 mg, Oral, QDAY pregabalin (Lyrica) capsule 50 mg, Oral, BID rosuvastatin (Crestor) tablet 40 mg, Oral, QAM sertraline (Zoloft) tablet 200 mg, Oral, QDAY ?? [COMPLETED] diphenhydrAMINE (Benadryl) capsule 25 mg, Oral, Once Data Recent Labs Component Name 09/25/23 0141 09/24/23 1058 12/16/22 0545 WBC 9.9 11.8* 7.1 HGB 10.8* 12.6* 8.2* HCT 33.6* 38.9 26.0* PLTCOUNT 165 194 246 Recent Labs Component Name 09/25/23 0141 09/24/23 1058 12/16/22 0545 SODIUM 138 137 139 POTASSIUM 4.0 4.2 3.9 CHLORIDE 106 105 108* CO2 23 BUN 14 14 11 CREATININE 0.88 0.90 0.81 GLUCOSE 182* 178* 126* CALCIUM 8.6 9.4 9.1 Recent Labs Component Name 09/30/23 0349 12/16/22 0545 12/15/22 0644 12/14/22 1933 ALBUMIN 2.3* 3.6 3.5 3.3* ALKPHOS 76 66 - 63 ALT 28 15 - 18 AST 31 20 - 22 TBIL 0.5 0.9 - 1.2 DBIL 0.171 - - - TPROT 5.8* 6.6 - 6.2* No results for input(s): CDIFFTOXINAB in the last 84309 hours. Recent Labs Component Name 09/24/23 1058 SEDRATE 50* Recent Labs Component Name 09/24/23 1058 04/04/23 0950 CRP 5.64* 0.33 No results for input(s): CK in the last 70796 hours. . Recent Labs Component Name 09/26/23 0455 VANCOPEAK 18.3* Recent Labs Component Name 09/25/23 0141 12/14/22 1933 11/27/22 0950 HGBA1C 6.4* 6.0* 5.6 Recent Labs Component Name 11/27/22 0950 COLORUA Yellow CLARITYUA Clear SPECGRAVUA 1.019 PHUA 5.0 PROTEINUA Negative BLOODUA Negative LEUKOCYTEUA Negative NITRITEUA Negative GLUCOSEUA Negative KETONEUA Negative BILIRUBINUA Negative UROBILINUA Negative Microbiology 09/24 Rt hip aspiration cultures +grp B strep 09/24 Rt hip OR/I&D cultures +grp B strep 09/27 Rt hip OR/I&D cultures neg 09/25 blood cultures neg Radiology Assessment *Right prosthetic hip / hardware infection -06/2022: s/p hip arthroplasty for arthritis ([place], [place]) -08/30/22: s/p hardware removal due to infection, IV abx x 6wks ([place], [place]) -12/08/22: s/p revision arthroplasty, fixation of proximal femoral periprosthetic fracture, Dr. Lafleur -chronic/ongoing rt hip/thigh/groin pain since -no response to iliopsoas tendon injection 08/29/23 -presented to ER 09/24 with progressive sx, CRP 5.64, WBC 11.3 -09/24: arthrocentesis: 98k TNC, 81% neutrophils, cx pending -09/24: s/p rt hip arthrotomy with I&D, placement of abx cement beads, removal of hardware/cerclage cable, wound vac application; cx pending *gastric ulcers / gastritis sp EGD 12/15/22 *coronary artery disease *hyperlipidemia *diabetes *hx of psoriasis Estimated Creatinine Clearance: 123.2 mL/min (by C-G formula based on SCr of 0.88 mg/dL). Plan -continue cefazolin 2 gm Q 8 hours -duration x 6 weeks (from date of last debridement, next planned 10/02) -with retention of some hardware, will need po suppression long-term -follow OR I&D cultures 09/24 +grp B strep -follow arthrocentesis cultures, 09/24 +grp B strep -follow OR cultures from 09/27 Neg so far -follow blood cultures 09/25 neg -monitor labs -wound vac management per ortho -plan per ortho is OR for I&D and wound closure on 10/02 Dispo: -OPAT via [facility] - notified -PICC line ordered Discussed with patient, care team Ashish Barnett MD EW COORDINATOR * Ashish Barnett MD - 09/29/2023 5:20 PM CST Infectious Diseases Consult Note Patient's Primary Care Physician: Faisal Richardson DO Reason for Consultation: Rt prosthetic hip joint infection Referring Physcian: No admitting provider for patient encounter. Name: Taylor Rutledge Age: [age] year old 3 Chief Complaint/History of Present Illness HPI: Taylor Rutledge is a 58 year old White/Caucasianmale admitted 09/24 for evaluation of right hip pain. Hx of right hip arthroplasty in 06/2022 at [facility] in [place], [place]. Due to infectionhe is s/p removal or arthroplasty in 08/30/22 at [facility]; received IV antibiotics x 6 weeks via PICC line - he does not recall name of abx or organism/infection treated. Underwent revision right total hip arthroplasty, fixation of proximal femoral periprosthetic fracture in 12/08/22 with . Has hx of coronary artery disease, dm, hypertension, hyperlipidemia. Saw Dr. Lafleur in office on 09/11/23 with ongoing right hip /groin pain. Has received injection into the right iliopsoas tendon in 08/29/23 which did not help. As inflammatory markers were normal, plan at this visit was continued PT. However, he presented to the ER on 09/24 with worsening symptoms. On presentation low grade temp to 99, wbc 11.8. CRP 5.64 (0.33 in 03/2023). XRAY right hip shows hip prosthesis in normal alig nment without fracture or dislocation, no bone destruction. CT right hip shows fluid or soft tissuethickening lateral to the right greater trochanter without rim-enhancing fluid collection. Underwent hip arthrocentesis with 98k TNC 81% neutrophils. Cultures pending. Taken to OR on 09/24 for I&Dof right hip, cultures pending; wvac application. ID consulted. Interim Events: No fevers Normal wbc S/p OR 09/27 per ortho for repeat I&D, wound vac re-application, cx neg Cultures from rt hip 09/24 +Grp B strep Narrowed to cefazolin 09/27 No new complaints Ortho plans rpt I&D and wound closure on 10/02 Objective: Review of Systems General: no fatigue/fever/chills Skin: no rashes/lesions Eyes: no vision problems/no conjunctival lesions HENT: no oral lesion/no hearing problems Respiratory: no cough/sob Cardiovascular: no cp/palpitations Gastrointestinal: no nausea/diarrhea Genitourinary: no dysuria/hematuria Musculoskeletal: no joint pain/no muscle pain; rt groin pain Neurological: no hope/seizures Psych: no depression/anxiety Exam Vitals: 09/28/23 2148 09/29/23 0601 09/29/23 0850 09/29/23 1521 BP: 126/67 117/63 129/56 115/64 Pulse: 68 77 70 Resp: 18 18 Temp: 97.8 ??F (36.6 ??C) 97.8 ??F (36.6 ??C) SpO2: 97% 95% Weight: Height: Temp (30hrs) Max:100.7 ??F (38.2 ??C) General appearance: cooperative, no distress, appears stated age, alert HEENT: ncat, vision intact Lungs: clear to auscultation bilaterally Heart: regular rate and rhythm, S1, S2 normal, no murmur, Abdomen: soft, non-tender; bowel sounds normal Extremities: extremities normal, atraumatic, no cyanosis or edema Rt hip wound vac in place Skin: no rash/lesion, has some old psoriatic rashes around right hip but not expansive or cellulitic Lines: MEDICATIONS FOR CURRENT ENCOUNTER: SCHEDULED MEDICATIONS: 0.9% NaCl injection 3 mL, Intracatheter, q8h 0.9% NaCl injection 3 mL, Intracatheter, q8h amLODIPine (Norvasc) tablet 10 mg, Oral, QDAY carvedilol (Coreg) tablet 25 mg, Oral, BID ceFAZolin (Ancef) 2 g in 0.9% NaCl IV 50 mL IVPB, Intravenous, q8h cyclobenzaprine (Flexeril) tablet 10 mg, Oral, BID docusate sodium (Colace) capsule 100 mg, Oral, BID enoxaparin (Lovenox) injection 40 mg, Subcutaneous, QDAY ferrous sulfate tablet 325 mg, Oral, QDAY insulin aspart (NovoLOG) pen 0-4 Units, Subcutaneous, AT BEDTIME insulin aspart (NovoLOG) pen 0-6 Units, Subcutaneous, TID WC pantoprazole EC (Protonix) tablet 40 mg, Oral, QDAY pregabalin (Lyrica) capsule 50 mg, Oral, BID rosuvastatin (Crestor) tablet 40 mg, Oral, QAM ?? sertraline (Zoloft) tablet 200 mg, Oral, QDAY Data Recent Labs Component Name 09/25/23 0141 09/24/23 1058 12/16/22 0545 WBC 9.9 11.8* 7.1 HGB 10.8* 12.6* 8.2* HCT 33.6* 38.9 26.0* PLTCOUNT 165 194 246 Recent Labs Component Name 09/25/23 0141 09/24/23 1058 12/16/22 0545 SODIUM 138 137 139 POTASSIUM 4.0 4.2 3.9 CHLORIDE 106 105 108* CO2 23 BUN 14 14 11 CREATININE 0.88 0.90 0.81 GLUCOSE 182* 178* 126* CALCIUM 8.6 9.4 9.1 Recent Labs Component Name 12/16/22 0545 12/15/22 0644 12/14/22 1933 11/27/22 0950 ALBUMIN 3.6 3.5 3.3* 4.4 ALKPHOS 66 - 63 73 ALT 15 - 18 24 AST 20 - 22 20 TBIL 0.9 - 1.2 0.9 TPROT 6.6 - 6.2* 7.4 No results for input(s): CDIFFTOXINAB in the last 70925 hours. Recent Labs Component Name 09/24/23 1058 SEDRATE 50* Recent Labs Component Name 09/24/23 1058 04/04/23 0950 CRP 5.64* 0.33 No results for input(s): CK in the last 64856 hours. . Recent Labs Component Name 09/26/23 0455 VANCOPEAK 18.3* Recent Labs Component Name 09/25/23 0141 12/14/22 1933 11/27/22 0950 HGBA1C 6.4* 6.0* 5.6 Recent Labs Component Name 11/27/22 0950 COLORUA Yellow CLARITYUA Clear SPECGRAVUA 1.019 PHUA 5.0 PROTEINUA Negative BLOODUA Negative LEUKOCYTEUA Negative NITRITEUA Negative GLUCOSEUA Negative KETONEUA Negative BILIRUBINUA Negative UROBILINUA Negative Microbiology 09/24 Rt hip aspiration cultures +grp B strep 09/24 Rt hip OR/I&D cultures +grp B strep 09/27 Rt hip OR/I&D cultures neg 09/25 blood cultures neg Radiology Assessment *Right prosthetic hip / hardware infection -06/2022: s/p hip arthroplasty for arthritis ([place], [place]) -08/30/22: s/p hardware removal due to infection, IV abx x 6wks ([place], [place]) -12/08/22: s/p revision arthroplasty, fixation of proximal femoral periprosthetic fracture, Dr. Lafleur -chronic/ongoing rt hip/thigh/groin pain since -no response to iliopsoas tendon injection 08/29/23 -presented to ER 09/24 with progressive sx, CRP 5.64, WBC 11.3 -09/24: arthrocentesis: 98k TNC, 81% neutrophils, cx pending -09/24: s/p rt hip arthrotomy with I&D, placement of abx cement beads, removal of hardware/cerclage cable, wound vac application; cx pending *gastric ulcers / gastritis sp EGD 12/15/22 *coronary artery disease *hyperlipidemia *diabetes *hx of psoriasis Estimated Creatinine Clearance: 123.2 mL/min (by C-G formula based on SCr of 0.88 mg/dL). Plan -continue cefazolin 2 gm Q 8 hours -duration x 6 weeks (from date of last debridement, next planned 10/02) -with retention of some hardware, will need po suppression long-term -follow OR I&D cultures 09/24 +grp B strep -follow arthrocentesis cultures, 09/24 +grp B strep -follow OR cultures from 09/27 Neg so far -follow blood cultures 09/25 neg -monitor labs -wound vac management per ortho -plan per ortho is OR for I&D and wound closure on 10/02 Dispo: -OPAT via [facility] - notified -PICC line ordered Discussed with patient, care team Ashish Barnett MD EW COORDINATOR * Praveen Kaufman MD - 09/29/2023 12:59 PM CST Hospitalist Progress Note Admit Date: 09/24/2023 11:47 AM Hospital Day: 5 Clinical Course This is a 58-year-old male patient past medical history of aortic stenosis, CAD, right hip replacement Rt hip replacement w/ wound vac (2022), hyperlipidemia, CVA, diabetes who presented to the emergency department with complaints of right hip pain. Patient tells me he has been having pain for over1 year but as of yesterday the pain worsened and he is unable to bear weight. New Symptoms Pain controlled had bowel movement Exam Vitals: 09/28/23 2053 09/28/23 2148 09/29/23 0601 09/29/23 0850 BP: 120/41 126/67 117/63 129/56 Pulse: 79 68 77 Resp: 18 18 Temp: (!) 100.7 ??F (38.2 ??C) 97.8 ??F (36.6 ??C) SpO2: 96% 97% Weight: Height: General appearance: in no acute distress, cooperative Eyes: sclerae anicteric, conjunctivae pink Lungs: non labored breaths, clear to auscultation Heart: regular rate and rhythm Abdomen: soft and non tender Extremities: moves all extremities, Right hip wound vac Neuro: non focal exam, conversational Skin: psoriasis upper and lower extremities bilaterally Data Reviewed all labs and imaging MEDICATIONS FOR CURRENT ENCOUNTER: ?? SCHEDULED MEDICATIONS: ??? 0.9% NaCl 3 mL Intracatheter q8h ??? 0.9% NaCl 3 mL Intracatheter q8h ??? amLODIPine 10 mg Oral QDAY ??? carvedilol 25 mg Oral BID ??? ceFAZolin 2 g Intravenous q8h ??? cyclobenzaprine 10 mg Oral BID ??? docusate sodium 100 mg Oral BID ??? enoxaparin 40 mg Subcutaneous QDAY ??? ferrous sulfate 325 mg Oral QDAY ??? insulin aspart 0-4 Units Subcutaneous AT BEDTIME ??? insulin aspart 0-6 Units Subcutaneous TID WC ??? naloxone 0.04 mg Intravenous post-OP multiple ??? naloxone 0.04 mg Intravenous post-OP multiple ??? pantoprazole EC 40 mg Oral QDAY ??? pregabalin 50 mg Oral BID ??? rosuvastatin 40 mg Oral QAM ??? sertraline 200 mg Oral QDAY ?? PRN MEDICATIONS: ??? SALINE LOCK, INSERT AND MAINTAIN AND 0.9% NaCl AND 0.9% NaCl ??? SALINE LOCK, INSERT AND MAINTAIN AND 0.9% NaCl AND 0.9% NaCl ??? acetaminophen ??? bisacodyl ??? dextrose IV for hypoglycemia OR dextrose IV for hypoglycemia OR glucagon ??? fentaNYL (PF) ??? glucose (Diabetic Use) gel ??? HYDROmorphone ??? HYDROmorphone ??? HYDROmorphone ??? insulin regular (HumuLIN R; NovoLIN R) 100 units/mL subcutaneous injection ??? lactulose ??? ondansetron (disintegrating) ??? ondansetron ??? ondansetron ??? ondansetron ??? oxyCODONE-acetaminophen ??? prochlorperazine ??? prochlorperazine ??? prochlorperazine Assessment and Plan Right prosthetic hip, hardware infection Orthopedic surgery consulted I&D, removal of hardware, wound vac placement on 09/24 Repeat OR for I&D on 09/27 Plan for OR again on 10/02 Evaluated by ID IV vanc and cefepime for now F/u on cultures Pain control Bowel regimen Hypertension Continue amlodipine and coreg CVA history: Continue statin Holding aspirin, Plavix ?? Diabetes mellitus Sliding scale insulin Diabetic diet ?? Mood disorder: Continue Wellbutrin, Zoloft ?? Hypertension: Continue Norvasc, Coreg ?? GERD: Protonix Psoriasis Follows with Dermatology at [facility], resolved Discussed with at bedside DVT ppx -Lovenox Disposition: Pending clinical course Praveen Kaufman MD Date of Service: 09/29/23 Patient was seen by me on 09/29 at around 1015 EW COORDINATOR * Deena Kline RN - 09/28/2023 3:11 PM CST Care Coordination Progress Note Anticipated level of care at discharge: Home Health - IV and Home Health Care: Anticipated level of care provider: [facility] HOME HEALTH: Anticipated Discharge Date: 10/02/23: Discharge Plan: Patient admitted for right prosthetic hip hardware infection. Orthopedic following,I&D, removal of hardware, wound vac placement 09.24 repeat OR for I&D on 09.27. plan for OR again on 10.02.23 IV Vancomycin, Cefepime for now, follow up on cultures, pain management. Patient will discharge home when medically stable. CM will continue to follow POC and provide additional assista nce as needed. Orientation Level: Oriented X4: Family Support (Name and Phone): Extended Emergency Contact Information Primary Emergency Contact: Marguerite Rutledge Address: [address] [place] [id number] Relation: Spouse Transportation at Discharge: : READMISSION RISK SCORE is 10 at 3:11 PM 09/28/2023.: Name: Deena Kline RN, BSN, MSN, CM /[phone] EW COORDINATOR * Millie Costello, PT - 09/28/2023 2:45 PM CST PHYSICAL THERAPY TREATMENT SUMMARY: Chart review completed. Nursing consented to therapy. Explained purpose of PT and patient consented to participate in therapy See filled flowsheet for details. Patient Name: Taylor Rutledge I Date of Admission: 09-24-2023 I Hospital Day: 4 RECOMMENDATIONS/PLAN: Patient ambulating with supervision in hallway. No need for skilled PT at this time. Will complete orders. Discharge PT Discharge Recommendations: Patient would benefit from ongoing therapy with home health Recommended Transportation Method: Private Car PPE worn by staff: mask - surgical;gloves AM-PAC Basic mobility score for this patient is Mobility Raw Score:: 18 Precautions: WBAT RLE, PHP Lines: wound vac, PIV Observation(Starting Position/Location): supine in bed SUBJECTIVE: Patient agreeable to walk. States he has been making bathroom trips. Pain Rating Score #1: 8 Pain Location : Hip Pain Orientation: Right Pain Quality: Aching OBJECTIVE: Cognition: Orientation Level: Oriented X4 Cognition: Follows Commands-Consistent;Attention/concentration-normal for age;Processing-Appropriate Level of Consciousness-Adult: Alert Participation: Active Participation Mobility: Supine to Sit: Modified [place] Sit to Supine: Modified [place] Sit to Stand: Supervision Stand to Sit: Supervision Distance Ambulated: 100 FEET Ambulation: Assistive Device: Gait Belt;Walker-2 Wheeled Ambulation: Level of Assistance: Supervision Ambulation: Gait Deviations: Antalgic;Base of Support - Decreased;Mary - Decreased Weight Bearing Status-RLE: Weight Bearing as Tolerated (with PHP) Activity Tolerance and Oxygen Requirements: Activity Tolerance: Requires rest breaks Room air Vital Signs: SpO2: 99 % Pulse: 70 Resp: 18 BP: 127/77 Treatment this date: Ambulated in hallway with walker and wound vac. Balance steady with walker. Positioned back in recliner at end of session. ASSESSMENT: Tolerated session well. Patient has been ambulating to bathroom with walker and assist for wound vac. Ambulating in hallway with supervision. Awaiting more OR next Sunday. No need for skilled PT at this time. Will complete skilled PT services. Anticipate safe discharge home with HHPT when medically stable. Call light and phone in reach. All lines, monitors, IV's, equipment in place and intact pre and post visit. Pt educated in PT plan of care, fall precautions, and benefits of OOB activity. Please refer to the Filed Flowsheet for further details. Refer to Plan of Care for PT goals. If this is the last Physical Therapy visit, this serves as the discharge summary. All vitals stablethroughout visit; All lines, monitors, IV's, equipment in place and intact pre and post visit. EW COORDINATOR * Ashish Barnett MD - 09/28/2023 2:10 PM CST Infectious Diseases Consult Note Patient's Primary Care Physician: Faisal Richardson DO Reason for Consultation: Rt prosthetic hip joint infection Referring Physcian: Bryant Jones MD Name: Taylor Rutledge Age: [age] year old 2 Chief Complaint/History of Present Illness HPI: Taylor Rutledge is a 58 year old White/Caucasianmale admitted 09/24 for evaluation of right hip pain. Hx of right hip arthroplasty in 06/2022 at [facility] in [place], [place]. Due to infectionhe is s/p removal or arthroplasty in 08/30/22 at [facility]; received IV antibiotics x 6 weeks via PICC line - he does not recall name of abx or organism/infection treated. Underwent revision right total hip arthroplasty, fixation of proximal femoral periprosthetic fracture in 12/08/22 with . Has hx of coronary artery disease, dm, hypertension, hyperlipidemia. Saw Dr. Lafleur in office on 09/11/23 with ongoing right hip /groin pain. Has received injection into the right iliopsoas tendon in 08/29/23 which did not help. As inflammatory markers were normal, plan at this visit was continued PT. However, he presented to the ER on 09/24 with worsening symptoms. On presentation low grade temp to 99, wbc 11.8. CRP 5.64 (0.33 in 03/2023). XRAY right hip shows hip prosthesis in normal alig nment without fracture or dislocation, no bone destruction. CT right hip shows fluid or soft tissuethickening lateral to the right greater trochanter without rim-enhancing fluid collection. Underwent hip arthrocentesis with 98k TNC 81% neutrophils. Cultures pending. Taken to OR on 09/24 for I&Dof right hip, cultures pending; wvac application. ID consulted. Interim Events: No fevers Normal wbc S/p OR 09/27 per ortho for repeat I&D, wound vac re-application, cx pending Cultures from rt hip 09/24 +Grp B strep Narrowed to cefazolin 09/27 No new complaints Ortho plans rpt I&D and wound closure on 10/02 Objective: Review of Systems General: no fatigue/fever/chills Skin: no rashes/lesions Eyes: no vision problems/no conjunctival lesions HENT: no oral lesion/no hearing problems Respiratory: no cough/sob Cardiovascular: no cp/palpitations Gastrointestinal: no nausea/diarrhea Genitourinary: no dysuria/hematuria Musculoskeletal: no joint pain/no muscle pain; rt groin pain Neurological: no hope/seizures Psych: no depression/anxiety Exam Vitals: 09/28/23 0001 09/28/23 0404 09/28/23 0742 09/28/23 1105 BP: 110/46 147/75 132/78 127/77 Pulse: 82 75 72 70 Resp: 18 18 Temp: 99 ??F (37.2 ??C) 97.8 ??F (36.6 ??C) 97.9 ??F (36.6 ??C) 98.1 ??F (36.7 ??C) SpO2: 94% 99% 98% 99% Weight: Height: Temp (30hrs) Max:99.7 ??F (37.6 ??C) General appearance: cooperative, no distress, appears stated age, alert HEENT: ncat, vision intact Lungs: clear to auscultation bilaterally Heart: regular rate and rhythm, S1, S2 normal, no murmur, Abdomen: soft, non-tender; bowel sounds normal Extremities: extremities normal, atraumatic, no cyanosis or edema Rt hip wound vac in place Skin: no rash/lesion, has some old psoriatic rashes around right hip but not expansive or cellulitic Lines: MEDICATIONS FOR CURRENT ENCOUNTER: SCHEDULED MEDICATIONS: 0.9% NaCl injection 3 mL, Intracatheter, q8h 0.9% NaCl injection 3 mL, Intracatheter, q8h amLODIPine (Norvasc) tablet 10 mg, Oral, QDAY carvedilol (Coreg) tablet 25 mg, Oral, BID ceFAZolin (Ancef) 2 g in 0.9% NaCl IV 50 mL IVPB, Intravenous, q8h cyclobenzaprine (Flexeril) tablet 10 mg, Oral, BID docusate sodium (Colace) capsule 100 mg, Oral, BID enoxaparin (Lovenox) injection 40 mg, Subcutaneous, QDAY ferrous sulfate tablet 325 mg, Oral, QDAY insulin aspart (NovoLOG) pen 0-4 Units, Subcutaneous, AT BEDTIME insulin aspart (NovoLOG) pen 0-6 Units, Subcutaneous, TID WC pantoprazole EC (Protonix) tablet 40 mg, Oral, QDAY pregabalin (Lyrica) capsule 50 mg, Oral, BID rosuvastatin (Crestor) tablet 40 mg, Oral, QAM sertraline (Zoloft) tablet 200 mg, Oral, QDAY ?? [] *Hold/Avoid Medication, Other, 08 and 1999 Data Recent Labs Component Name 09/25/23 0141 09/24/23 1058 12/16/22 0545 WBC 9.9 11.8* 7.1 HGB 10.8* 12.6* 8.2* HCT 33.6* 38.9 26.0* PLTCOUNT 165 194 246 Recent Labs Component Name 09/25/23 0141 09/24/23 1058 12/16/22 0545 SODIUM 138 137 139 POTASSIUM 4.0 4.2 3.9 CHLORIDE 106 105 108* CO2 22 23 23 BUN 14 14 11 CREATININE 0.88 0.90 0.81 GLUCOSE 182* 178* 126* CALCIUM 8.6 9.4 9.1 Recent Labs Component Name 12/16/22 0545 12/15/22 0644 12/14/22193211/27/22 0950 ALBUMIN 3.6 3.5 3.3* 4.4 ALKPHOS 66 - 63 73 ALT 15 - 18 24 AST 20 - 22 20 TBIL 0.9 - 1.2 0.9 TPROT 6.6 - 6.2* 7.4 No results for input(s): CDIFFTOXINAB in the last 98988 hours. Recent Labs Component Name 09/24/23 1058 SEDRATE 50* Recent Labs Component Name 09/24/23 1058 04/04/23 0950 CRP 5.64* 0.33 No results for input(s): CK in the last 08901 hours. . Recent Labs Component Name 09/26/23 0455 VANCOPEAK 18.3* Recent Labs Component Name 09/25/23 0141 12/14/22193211/27/22 0950 HGBA1C 6.4* 6.0* 5.6 Recent Labs Component Name 11/27/22 0950 COLORUA Yellow CLARITYUA Clear SPECGRAVUA 1.019 PHUA 5.0 PROTEINUA Negative BLOODUA Negative LEUKOCYTEUA Negative NITRITEUA Negative GLUCOSEUA Negative KETONEUA Negative BILIRUBINUA Negative UROBILINUA Negative Microbiology 09/24 Rt hip aspiration cultures +grp B strep 09/24 Rt hip OR/I&D cultures +grp B strep 09/27 Rt hip OR/I&D cultures pending 09/25 blood cultures neg Radiology Assessment *Right prosthetic hip / hardware infection -06/2022: s/p hip arthroplasty for arthritis ([place], [place]) -08/30/22: s/p hardware removal due to infection, IV abx x 6wks ([place], [place]) -12/08/22: s/p revision arthroplasty, fixation of proximal femoral periprosthetic fracture, Dr. Lafleur -chronic/ongoing rt hip/thigh/groin pain since -no response to iliopsoas tendon injection 08/29/23 -presented to ER 09/24 with progressive sx, CRP 5.64, WBC 11.3 -09/24: arthrocentesis: 98k TNC, 81% neutrophils, cx pending -09/24: s/p rt hip arthrotomy with I&D, placement of abx cement beads, removal of hardware/cerclage cable, wound vac application; cx pending *gastric ulcers / gastritis sp EGD 12/15/22 *coronary artery disease *hyperlipidemia *diabetes *hx of psoriasis Estimated Creatinine Clearance: 123.2 mL/min (by C-G formula based on SCr of 0.88 mg/dL). Plan -continue cefazolin 2 gm Q 8 hours -duration x 6 weeks (from date of last debridement, 10/02) -with retention of some hardware, will need po suppression long-term -follow OR I&D cultures 09/24 +grp B strep -follow arthrocentesis cultures, 09/24 +grp B strep -follow OR cultures from 09/27 pending -follow blood cultures 09/25 neg -monitor labs -wound vac management per ortho -plan per ortho is OR for I&D and wound closure on 10/02 Dispo: -[facility] via [facility] - notified -PICC line ordered Discussed with patient, care team Ashish Barnett MD EW COORDINATOR * Praveen Kaufman MD - 09/28/2023 12:33 PM CST Hospitalist Progress Note Admit Date: 09/24/2023 11:47 AM Hospital Day: 4 Clinical Course This is a 58-year-old male patient past medical history of aortic stenosis, CAD, right hip replacement Rt hip replacement w/ wound vac (2022), hyperlipidemia, CVA, diabetes who presented to the emergency department with complaints of right hip pain. Patient tells me he has been having pain for over1 year but as of yesterday the pain worsened and he is unable to bear weight. New Symptoms Pain controlled no bowel movement Exam Vitals: 09/28/23 0001 09/28/23 0404 09/28/23 0742 09/28/23 1105 BP: 110/46 147/75 132/78 127/77 Pulse: 82 75 72 70 Resp: 18 18 Temp: 99 ??F (37.2 ??C) 97.8 ??F (36.6 ??C) 97.9 ??F (36.6 ??C) 98.1 ??F (36.7 ??C) SpO2: 94% 99% 98% 99% Weight: Height: General appearance: in no acute distress, cooperative Eyes: sclerae anicteric, conjunctivae pink Lungs: non labored breaths, clear to auscultation Heart: regular rate and rhythm Abdomen: soft and non tender Extremities: moves all extremities, Right hip wound vac Neuro: non focal exam, conversational Skin: psoriasis upper and lower extremities bilaterally Data Reviewed all labs and imaging MEDICATIONS FOR CURRENT ENCOUNTER: ?? SCHEDULED MEDICATIONS: ??? 0.9% NaCl 3 mL Intracatheter q8h ??? 0.9% NaCl 3 mL Intracatheter q8h ??? amLODIPine 10 mg Oral QDAY ??? carvedilol 25 mg Oral BID ??? ceFAZolin 2 g Intravenous q8h ??? cyclobenzaprine 10 mg Oral BID ??? docusate sodium 100 mg Oral BID ??? enoxaparin 40 mg Subcutaneous QDAY ??? ferrous sulfate 325 mg Oral QDAY ??? insulin aspart 0-4 Units Subcutaneous AT BEDTIME ??? insulin aspart 0-6 Units Subcutaneous TID WC ??? naloxone 0.04 mg Intravenous post-OP multiple ??? naloxone 0.04 mg Intravenous post-OP multiple ??? pantoprazole EC 40 mg Oral QDAY ??? pregabalin 50 mg Oral BID ??? rosuvastatin 40 mg Oral QAM ??? sertraline 200 mg Oral QDAY ?? PRN MEDICATIONS: ??? SALINE LOCK, INSERT AND MAINTAIN AND 0.9% NaCl AND 0.9% NaCl ??? SALINE LOCK, INSERT AND MAINTAIN AND 0.9% NaCl AND 0.9% NaCl ??? acetaminophen ??? bisacodyl ??? dextrose IV for hypoglycemia OR dextrose IV for hypoglycemia OR glucagon ??? fentaNYL (PF) ??? glucose (Diabetic Use) gel ??? HYDROmorphone ??? HYDROmorphone ??? HYDROmorphone ??? insulin regular (HumuLIN R; NovoLIN R) 100 units/mL subcutaneous injection ??? lactulose ??? ondansetron (disintegrating) ??? ondansetron ??? ondansetron ??? ondansetron ??? oxyCODONE-acetaminophen ??? prochlorperazine ??? prochlorperazine ??? prochlorperazine Assessment and Plan Right prosthetic hip, hardware infection Orthopedic surgery consulted I&D, removal of hardware, wound vac placement on 09/24 Repeat OR for I&D on 09/27 Plan for OR again on 10/02 Evaluated by ID IV vanc and cefepime for now F/u on cultures Pain control Bowel regimen (ordered prn lactulose and dulcolax suppository) - discussed with RN Hypertension Continue amlodipine and coreg CVA history: Continue statin Holding aspirin, Plavix ?? Diabetes mellitus Sliding scale insulin Diabetic diet ?? Mood disorder: Continue Wellbutrin, Zoloft ?? Hypertension: Continue Norvasc, Coreg ?? GERD: Protonix Psoriasis Follows with Dermatology at [facility] Constipation miralax Lactulose x 1 Dulcolax suppository if no BM by 2 pm Discussed with at bedside DVT ppx -Lovenox Disposition: Pending clinical course Praveen Kaufman MD Date of Service: 09/28/23 Patient was seen by me on 09/28 at around 10[address] * Lane Nathan OT - 09/28/2023 11:02 AM CST Occupational Therapy Treatment Summary Chart reviewed for diagnosis and medical systems review. Nursing consented for OT. Explained purpose of OT and patient consented to participate in therapy. RECOMMENDATIONS/PLAN: No further need for acute care OT. Orders will be completed at this time. Discharge OT Discharge Recommendations: Patient may return home without the need for ongoing skilled therapy services post-hospitalization AM-PAC Daily Activity Raw Score:: 19 ADMIT: 1. Infection of prosthetic joint, initial encounter ([facility]) 2. Pain of right hip 3. Inability to ambulate due to hip 4. Diagnosis unknown PPE worn by staff: gloves;mask - surgical Precautions: WBAT RLE, PHP SUBJECTIVE: It's hurting, but I can get up Psychosocial: Patient Behaviors: Calm;Cooperative Pt's goal for therapy: Get out of bed OBJECTIVE: Pain Assessment: Pain Location #1 Pain Scale/Observation: Numeric (0-10) Pain Rating Score #1: 7 Sedation Level #1: 1-Awake and alert Pain Location : Hip Pain Orientation: Right Cognition: Orientation Level: Oriented X4 Level of Consciousness-Adult: Alert Cognition: Follows Commands-Consistent;Attention/concentration-normal for age;Processing-Appropriate Functional Mobility: Bed Mobility: Supine to Sit: Modified [place] (HOB elevated) Sit to Supine: Modified [place] (HOB elevated) Transfers: Sit to Stand: Supervision Stand to Sit: Supervision Mobility: Distance Ambulated: (Functional mobility in room) Ambulation: Assistive Device: Gait Belt;Walker-2 Wheeled Ambulation: Level of Assistance: Supervision ADL Tasks: Based on observation and clinical judgement Feeding: Complete [place] Oral Facial Hygiene: Supervision Bathing: Supervision Upper Body Dressing: Set-up Lower Body Dressing: Supervision Toileting: Supervision RUE Assessment: AROM - Right Upper Extremity: Within Functional Limits Strength - Right Upper Extremity: Within Functional Limits Compliance Clerk Strength:Compliance Clerk Strength - Right Upper Extremity: WFL LUE Assessment: AROM - Left Upper Extremity: Within Functional Limits Strength - Left Upper Extremity: Within Functional Limits Compliance Clerk Strength:Compliance Clerk Strength - Left Upper Extremity: WFL: Activity Tolerance/Vital Signs: Activity Tolerance: Requires rest breaks Oxygen Therapy: Room air ASSESSMENT: Pt in bed upon OT arrival, agreeable to therapy session. Pt able to recall PHP without cues. Discussed AE - pt denies concerns regarding use/denies need for continued education. Pt completing functional mobility in room and to bathroom with 2WW and supervision. No LOB noted. No further need for acute care OT. Orders will be completed at this time. Pt positioned for comfort in bed at end of session with all immediate needs met as OT departs. Call light and phone in reach. All lines, monitors, IV's, equipment in place and intact pre and post visit. RN, notified of patient's performance/location end of session. Educated patient/family in fall prevention, role of OT, ADLs, functional mobility, transfers, safety, energy conservation, PHP, AE, WB Status Please refer to the Filed Flowsheet OT Treatment for further details. Refer to care plan for goals. If this is the last Occupational Therapy visit, this serves as the discharge summary. MEL Sherman, OTR/L [phone] EW COORDINATOR * Felipe Miller MD - 09/28/2023 4:36 AM CST Orthopedic Surgery Progress Note Name: Taylor Rutledge 58 year old, male : 1965 Admit Date: 09/24/2023 11:47 AM September 28, 2023 Subjective Patient seen this morning on rounds. In no acute distress. Data BP 147/75 (BP Cuff Size: A) Pulse 75 Temp 97.8 ??F (36.6 ??C) (Oral) Resp 18 Ht 1.829 m (6') Wt 124.7 kg (275 lb) SpO2 99% Temp (24hrs), Av.3 ??F (36.8 ??C), Min:97.1 ??F (36.2 ??C), Max:99.9 ??F (37.7 ??C) Labs Recent Labs Component Name 09/25/23 0141 09/24/23 1058 12/16/22 0545 WBC 9.9 11.8* 7.1 HGB 10.8* 12.6* 8.2* HCT 33.6* 38.9 26.0* PLTCOUNT 165 194 246 Physical Exam General appearance: No apparent distress. Right lower extremity: Motor: Able to plantarflex and dorsiflex ankle. Able to straight-leg raise, fully extend knee. Sensation to light touch grossly intact over foot. 2+DP, Toes warm and well perfused distally. Wound vac is in place holding suction well. Assessment/Plan 58 year old male with: Active Problems: Inability to ambulate due to hip Pain of right hip Post op day #4 status post ASPIRATION RIGHT HIP UNDER FLUOROSCOPY, FLUOROSCOPY FOR NEEDLE PLACEMENTRIGHT HIP, ARTHROTOMY WITH IRRIGATION AND DEBRIDEMENT RIGHT HIP, REMOVAL OF HARDWARE RIGHT HIP, PLACEMENT OF ANTIBIOTIC BEADS RIGHT HIP X20, WOUND VAC PLACEMENT RIGHT HIP Post op day #1 status post REPEAT IRRIGATION AND DEBRIDEMENT RIGHT HIP, REMOVAL OF ANTIBIOTIC OLLNTs61, PLACEMENT OF ANTIBIOTIC BEADS x20, WOUND VAC EXCHANGE RIGHT HIP 1. right lower extremity: WBAT with posterior hip precautions 2. Ok for diet 3. Continue pain control 4. Activity: as tolerated 5. PT/OT 6. Complete perioperative antibiotics 7. Recommend ID consult given positive aspiration cultures 8. DVT PPx: lovenox 9. Plan for return to the OR today 10/02 for repeat I&D, hardware exchange, and wound closure. 10. Please page ortho with questions Felipe Miller MD 09/28/2023 4:36 AM Pager number: [phone] Orthopedic Surgery Resident EW COORDINATOR * Brigido Lundberg MD - 09/27/2023 12:16 PM CST Post Op Check Note Subjective: Taylor Rutledge is a 58 year old y.o. male s/p Procedure(s): REPEAT IRRIGATION AND DEBRIDEMENT RIGHT HIP, REMOVAL OF ANTIBIOTIC BEADS x20, PLACEMENT OF ANTIBIOTIC BEADS x20, WOUND VAC EXCHANGE RIGHT HIP. He is doing well at this time. Pain well controlled. Objective: Vitals: Patient Vitals for the past 6 hrs: Temp Pulse Resp BP BP Method 09/27/23 0744 99.9 ??F (37.7 ??C) 83 18 142/67 Automatic CBC: Recent Labs Component Name 09/25/23 0141 WBC 9.9 HGB 10.8* Gen: Alert and Oriented x3 Ext: Right lower extremity: +EHL/FHL, Sensation intact to light touch distally, palpable DP, Brisk capillary refill (<2 sec), wound vac in place. Assessment: Taylor Rutledge is a 58 year old y.o. male s/p Procedure(s): REPEAT IRRIGATION AND DEBRIDEMENT RIGHT HIP, REMOVAL OF ANTIBIOTIC BEADS x20, PLACEMENT OF ANTIBIOTIC BEADS x20, WOUND VAC EXCHANGE RIGHT HIP Plan: - Diet: Regular - Activity: as tolerated with posterior hip precautions on the right lower extremity - Pain Control: PO pain medication - WV x1 - Continue with perioperative antibiotics - Recommend ID consult given positive aspiration cultures - Patient will go back to the OR on Monday 10/02 for repeat I&D, hardware exchange, and wound closure. - Please page with any further questions regarding this patient. Brigido Lundberg MD 09/27/2023 12:17 PM EW COORDINATOR * Lane Nathan OT - 09/27/2023 12:10 PM CST Attempted to see pt for OT follow-up; however pt MILAD for repeat I&D of R hip. Will continue to follow. Appreciate updated WB/activity orders post op. BRANDIE Sherman [phone] 09/27/2023 EW COORDINATOR * Praveen Kaufman MD - 09/27/2023 10:56 AM CST Hospitalist Progress Note Admit Date: 09/24/2023 11:47 AM Hospital Day: 3 Clinical Course This is a 58-year-old male patient past medical history of aortic stenosis, CAD, right hip replacement Rt hip replacement w/ wound vac (2022), hyperlipidemia, CVA, diabetes who presented to the emergency department with complaints of right hip pain. Patient tells me he has been having pain for over1 year but as of yesterday the pain worsened and he is unable to bear weight. New Symptoms States he was told he cannot have any pain medications after midnight last night No bowel movement Passing flatus Denies abd pain or nausea Exam Vitals: 09/26/23 1530 09/26/23 2019 09/27/23 0339 09/27/23 0744 BP: 121/69 156/70 163/74 142/67 Pulse: 72 83 73 83 Resp: 18 18 Temp: 98.6 ??F (37 ??C) 99 ??F (37.2 ??C) 98.6 ??F (37 ??C) 99.9 ??F (37.7 ??C) SpO2: 95% 90% 93% 92% Weight: Height: General appearance: in no acute distress, cooperative Eyes: sclerae anicteric, conjunctivae pink Lungs: non labored breaths, clear to auscultation Heart: regular rate and rhythm Abdomen: soft and non tender Extremities: moves all extremities, Right hip wound vac Neuro: non focal exam, conversational Skin: psoriasis upper and lower extremities bilaterally Data Reviewed all labs and imaging MEDICATIONS FOR CURRENT ENCOUNTER: ?? SCHEDULED MEDICATIONS: ??? *Hold/Avoid Medication Other 799 and 1999 ??? 0.9% NaCl 3 mL Intracatheter q8h ??? amLODIPine 10 mg Oral QDAY ??? carvedilol 25 mg Oral BID ??? ceFAZolin 2 g Intravenous q8h ??? cyclobenzaprine 10 mg Oral BID ??? docusate sodium 100 mg Oral BID ??? ferrous sulfate 325 mg Oral QDAY ??? insulin aspart 0-4 Units Subcutaneous AT BEDTIME ??? insulin aspart 0-6 Units Subcutaneous TID WC ??? naloxone 0.04 mg Intravenous post-OP multiple ??? pantoprazole EC 40 mg Oral QDAY ??? pregabalin 50 mg Oral BID ??? rosuvastatin 40 mg Oral QAM ??? sertraline 200 mg Oral QDAY ?? PRN MEDICATIONS: ??? SALINE LOCK, INSERT AND MAINTAIN AND 0.9% NaCl AND 0.9% NaCl ??? acetaminophen ??? bisacodyl ??? dextrose IV for hypoglycemia OR dextrose IV for hypoglycemia OR glucagon ??? glucose (Diabetic Use) gel ??? HYDROmorphone ??? lactulose ??? ondansetron (disintegrating) ??? ondansetron ??? oxyCODONE-acetaminophen ??? prochlorperazine ??? prochlorperazine Assessment and Plan Right prosthetic hip, hardware infection Orthopedic surgery consulted I&D, removal of hardware, wound vac placement on 09/24 Repeat OR for I&D on 09/27 Evaluated by ID IV vanc and cefepime for now F/u on cultures Pain control Bowel regimen (ordered prn lactulose and dulcolax suppository) - discussed with RN Hypertension Continue amlodipine and coreg CVA history: Continue statin Holding aspirin, Plavix ?? Diabetes mellitus Sliding scale insulin Diabetic diet ?? Mood disorder: Continue Wellbutrin, Zoloft ?? Hypertension: Continue Norvasc, Coreg ?? GERD: Protonix Psoriasis Follows with Dermatology at [facility] Discussed with daughter and at bedside DVT ppx -Lovenox (hold for OR today) Disposition: Pending clinical course Praveen Kaufman MD Date of Service: 09/27/23 Patient was seen by me on 09/27 at around 0930 EW COORDINATOR * Millie Costello, PT - 09/27/2023 10:48 AM CST Attempted to see pt for PT treatment. Unable to complete visit secondary to patient in the OR for repeat irrigation and debridement of infected right hip arthroplasty with removal of antibiotic beadsand placement of new antibiotic beads and wound VAC application with possible implant removal . Will follow for new WB status and activity orders post op. EW COORDINATOR * Ashish Barnett MD - 09/27/2023 10:00 AM CST Infectious Diseases Consult Note Patient's Primary Care Physician: Faisal Richardson DO Reason for Consultation: Rt prosthetic hip joint infection Referring Physcian: Bryant Jones MD Name: Taylor Rutledge Age: [age] year old 1 Chief Complaint/History of Present Illness HPI: Taylor Rutledge is a 58 year old White/Caucasianmale admitted 09/24 for evaluation of right hip pain. Hx of right hip arthroplasty in 06/2022 at [facility] [place]. Due to infectionhe is s/p removal or arthroplasty in 08/30/22 at [facility]; received IV antibiotics x 6 weeks via PICC line - he does not recall name of abx or organism/infection treated. Underwent revision right total hip arthroplasty, fixation of proximal femoral periprosthetic fracture in 12/08/22 with . Has hx of coronary artery disease, dm, hypertension, hyperlipidemia. Saw Dr. Lafleur in office on 09/11/23 with ongoing right hip /groin pain. Has received injection into the right iliopsoas tendon in 08/29/23 which did not help. As inflammatory markers were normal, plan at this visit was continued PT. However, he presented to the ER on 09/24 with worsening symptoms. On presentation low grade temp to 99, wbc 11.8. CRP 5.64 (0.33 in 03/2023). XRAY right hip shows hip prosthesis in normal alig nment without fracture or dislocation, no bone destruction. CT right hip shows fluid or soft tissuethickening lateral to the right greater trochanter without rim-enhancing fluid collection. Underwent hip arthrocentesis with 98k TNC 81% neutrophils. Cultures pending. Taken to OR on 09/24 for I&Dof right hip, cultures pending; wvac application. ID consulted. Interim Events: No fevers Normal wbc S/p OR today per ortho for I&D, wound vac re-application, cx pending Cultures +Grp B strep Ortho plans repeat I&D on 10/02 Objective: Review of Systems General: no fatigue/fever/chills Skin: no rashes/lesions Eyes: no vision problems/no conjunctival lesions HENT: no oral lesion/no hearing problems Respiratory: no cough/sob Cardiovascular: no cp/palpitations Gastrointestinal: no nausea/diarrhea Genitourinary: no dysuria/hematuria Musculoskeletal: no joint pain/no muscle pain; rt groin pain Neurological: no hope/seizures Psych: no depression/anxiety Exam Vitals: 09/26/23 1530 09/26/23 2019 09/27/23 0339 09/27/23 0744 BP: 121/69 156/70 163/74 142/67 Pulse: 72 83 73 83 Resp: 18 18 Temp: 98.6 ??F (37 ??C) 99 ??F (37.2 ??C) 98.6 ??F (37 ??C) 99.9 ??F (37.7 ??C) SpO2: 95% 90% 93% 92% Weight: Height: Temp (30hrs) Max:99.9 ??F (37.7 ??C) General appearance: cooperative, no distress, appears stated age, alert HEENT: ncat, vision intact Lungs: clear to auscultation bilaterally Heart: regular rate and rhythm, S1, S2 normal, no murmur, Abdomen: soft, non-tender; bowel sounds normal Extremities: extremities normal, atraumatic, no cyanosis or edema Rt hip wound vac in place Skin: no rash/lesion Lines: MEDICATIONS FOR CURRENT ENCOUNTER: SCHEDULED MEDICATIONS: *Hold/Avoid Medication, Other, 0800 and 2000 0.9% NaCl injection 3 mL, Intracatheter, q8h amLODIPine (Norvasc) tablet 10 mg, Oral, QDAY carvedilol (Coreg) tablet 25 mg, Oral, BID cefepime (Maxipime) 2,000 mg in 0.9% NaCl IV 50 mL IVPB, Intravenous, q8h cyclobenzaprine (Flexeril) tablet 10 mg, Oral, BID docusate sodium (Colace) capsule 100 mg, Oral, BID ferrous sulfate tablet 325 mg, Oral, QDAY insulin aspart (NovoLOG) pen 0-4 Units, Subcutaneous, AT BEDTIME insulin aspart (NovoLOG) pen 0-6 Units, Subcutaneous, TID WC pantoprazole EC (Protonix) tablet 40 mg, Oral, QDAY pregabalin (Lyrica) capsule 50 mg, Oral, BID rosuvastatin (Crestor) tablet 40 mg, Oral, QAM sertraline (Zoloft) tablet 200 mg, Oral, QDAY vancomycin (Vancocin) 1,750 mg in 535 mL IVPB, Intravenous, q12h vancomycin (Vancocin) IV dose per pharmacy, Does not apply, DIRECTED ?? [] iopamidol (Isovue 370) 76 % contrast, Intravenous, Contrast - Once Data Recent Labs Component Name 09/25/23 0141 09/24/23 1058 12/16/22 0545 WBC 9.9 11.8* 7.1 HGB 10.8* 12.6* 8.2* HCT 33.6* 38.9 26.0* PLTCOUNT 165 194 246 Recent Labs Component Name 09/25/23 0141 09/24/23 1058 12/16/22 0545 SODIUM 138 137 139 POTASSIUM 4.0 4.2 3.9 CHLORIDE 106 105 108* CO2 BUN 14 14 11 CREATININE 0.88 0.90 0.81 GLUCOSE 182* 178* 126* CALCIUM 8.6 9.4 9.1 Recent Labs Component Name 12/16/22 0545 12/15/22 0644 12/14/22 19311/27/22 0950 ALBUMIN 3.6 3.5 3.3* 4.4 ALKPHOS 66 - 63 73 ALT 15 - 18 24 AST - 20 TBIL 0.9 - 1.2 0.9 TPROT 6.6 - 6.2* 7.4 No results for input(s): CDIFFTOXINAB in the last 88805 hours. Recent Labs Component Name 09/24/23 1058 SEDRATE 50* Recent Labs Component Name 09/24/23 1058 04/04/23 0950 CRP 5.64* 0.33 No results for input(s): CK in the last 30406 hours. . Recent Labs Component Name 09/26/23 0455 VANCOPEAK 18.3* Recent Labs Component Name 09/25/23 0141 12/14/22193211/27/22 0950 HGBA1C 6.4* 6.0* 5.6 Recent Labs Component Name 11/27/22 0950 COLORUA Yellow CLARITYUA Clear SPECGRAVUA 1.019 PHUA 5.0 PROTEINUA Negative BLOODUA Negative LEUKOCYTEUA Negative NITRITEUA Negative GLUCOSEUA Negative KETONEUA Negative BILIRUBINUA Negative UROBILINUA Negative Microbiology 09/24 Rt hip aspiration cultures +grp B strep 09/24 Rt hip OR/I&D cultures +grp B strep 09/27 Rt hip OR/I&D cultures pending 09/25 blood cultures neg Radiology Assessment *Right prosthetic hip / hardware infection -06/2022: s/p hip arthroplasty for arthritis ([place], [place]) -08/30/22: s/p hardware removal due to infection, IV abx x 6wks ([place], [place]) -12/08/22: s/p revision arthroplasty, fixation of proximal femoral periprosthetic fracture, Dr. Lafleur -chronic/ongoing rt hip/thigh/groin pain since -no response to iliopsoas tendon injection 08/29/23 -presented to ER 09/24 with progressive sx, CRP 5.64, WBC 11.3 -09/24: arthrocentesis: 98k TNC, 81% neutrophils, cx pending -09/24: s/p rt hip arthrotomy with I&D, placement of abx cement beads, removal of hardware/cerclage cable, wound vac application; cx pending *gastric ulcers / gastritis sp EGD 12/15/22 *coronary artery disease *hyperlipidemia *diabetes Estimated Creatinine Clearance: 123.2 mL/min (by C-G formula based on SCr of 0.88 mg/dL). Plan -de-escalate to cefazolin 2 gm Q 8 hours -duration x 6 weeks (from date of last debridement) -with retention of some hardware, will need po suppression long-term -follow OR I&D cultures 09/24 +grp B strep -follow arthrocentesis cultures, 09/24 +grp B strep -follow OR cultures from 09/27 pending -follow blood cultures 09/25 neg -monitor labs -wound vac management per ortho -plan per ortho is OR for I&D on 10/02 Dispo: -OPAT via [facility] - notified -PICC line ordered Discussed with patient, care team Ashish Barnett MD EW COORDINATOR * Brigido Lundberg MD - 09/27/2023 6:49 AM CST Orthopedic Surgery Progress Note Name: Taylor Rutledge 58 year old, male : 1965 Admit Date: 09/24/2023 11:47 AM September 27, 2023 Subjective Patient seen this morning on rounds. In no acute distress. Data BP 163/74 (BP Cuff Size: A) Pulse 73 Temp 98.6 ??F (37 ??C) (Oral) Resp 18 Ht 1.829 m (6') Wt 124.7 kg (275 lb) SpO2 93% Temp (24hrs), Av.6 ??F (37 ??C), Min:98.1 ??F (36.7 ??C), Max:99 ??F (37.2 ??C) Labs Recent Labs Component Name 09/25/23 0141 09/24/23 1058 12/16/22 0545 WBC 9.9 11.8* 7.1 HGB 10.8* 12.6* 8.2* HCT 33.6* 38.9 26.0* PLTCOUNT 165 194 246 Physical Exam General appearance: No apparent distress. Right lower extremity: Motor: Able to plantarflex and dorsiflex ankle. Able to straight-leg raise, fully extend knee. Sensation to light touch grossly intact over foot. 2+DP, Toes warm and well perfused distally. Wound vac is in place holding suction well. Assessment/Plan 58 year old male with: Active Problems: Inability to ambulate due to hip Pain of right hip Post op day #3 status post Procedure(s) (LRB): ASPIRATION RIGHT HIP UNDER FLUOROSCOPY, FLUOROSCOPY FOR NEEDLE PLACEMENT RIGHT HIP, ARTHROTOMY WITHIRRIGATION AND DEBRIDEMENT RIGHT HIP, REMOVAL OF HARDWARE RIGHT HIP, PLACEMENT OF ANTIBIOTIC BEADS RIGHT HIP X20, WOUND VAC PLACEMENT RIGHT HIP (Right) 1. right lower extremity: WBAT with posterior hip precautions 2. NPO 3. Continue pain control 4. Activity: as tolerated 5. PT/OT 6. Continue vancomycin until cultures have resulted and able to downgrade 7. DVT PPx: lovenox 8. Plan for return to the OR today 09/27 for repeat I&D with wound closure vs. wound vac exchange 9. Please page ortho with questions EW COORDINATOR Associated attestation - Torrey Lafleur MD - 09/27/2023 10:35 AM REVIEW COORDINATOR Patient seen and examined, agree with above resident note. Site marked This patient? s prior H&P was reviewed, the patient was examined and no change has occurred in the patient's condition since the prior H&P was completed. 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 He is growing group B strep and per report, he grew staph and strep from his 1st infection at the outside facility. Exam reveals right hip limitation of and pain with ROM. Complete examination/plan notedabove. 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 Further conservative treatment which has been unsuccessful is contraindicated as it would lead to further debility and worsening deconditioning. Symptoms of pain, difficulty ambulating, increased risk of falling due to poor range of motion and instability/locking/and catching, difficulty standing, difficulty with stair climbing and difficulty with personal hygiene are interfering with patient's lifestyle. Will proceed with previously discussed repeat irrigation and debridement of infected right hip arthroplasty with removal of antibiotic beads and placement of new antibiotic beads and wound VAC application with possible implant removal Risks, benefits, and alternatives to the surgical procedure were discussed with the patient and present family members. Risks discussed among others but not limited to were: Infection and persistent infection as he has failed 2 stage reimplantation, bleeding/blood transfusion, neurovascular damage,prosthetic joint instability, limb length discrepancy, periprosthetic fracture, failure to improve symptoms, venous thrombosis/pulmonary embolism, and anesthesia complications including myocardial infarction, stroke, or even . We also discussed the procedure at length and answered any of the patient's questions. We also discussed the importance of early motion and early active ankle pumps for DVT/PE prevention and demonstrated this to the patient and had active participation as well. Patient understood the treatment plan and all questions were answered. In addition to the standard procedural informed consent, the specific risks related to COVID-19 were also discussed, including the possibility of an infection being present with a negative test, the risk of cristin COVID-19, and the known implications of this infection. See consent form. 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 The patient has the following complex medical factors: No current facility-administered medications on file prior to encounter. Current Outpatient Medications on File Prior to Encounter Medication Sig Dispense Refill amLODIPine (Norvasc) 5 MG tablet Take 1 (one) tablet by mouth once daily aspirin (Aspirin 81) 81 MG chew tablet Take 1 (one) tablet by mouth 2 times daily (Patient not taking: Reported on 08/29/2023) 70 tablet 0 azithromycin (Zithromax) 500 MG tablet Take 1 (one) tablet by mouth 1 Hour prior to Dental Appointment Reasons: Treatment to Prevent Infection in Prosthetic Arthroplasty (Patient not taking: Reportedon 09/24/2023) 1 tablet PRN azithromycin (Zithromax) 500 MG tablet Take 1 (one) tablet by mouth 1 Hour prior to Dental Appointment Reasons: Treatment to Prevent Infection in Prosthetic Arthroplasty (Patient not taking: Reportedon 09/24/2023) 1 tablet PRN Bacillus Coagulans-Inulin (Probiotic) 1-250 BILLION-MG CAPS betamethasone dipropionate (Diprosone) 0.05 % ointment as needed (Patient not taking: Reported on 09/24/2023) buPROPion XL 24hr (Wellbutrin-XL) 300 MG tablet carvedilol (Coreg) 25 MG tablet Take 1 (one) tablet by mouth 2 times daily cloNIDine (Catapres) 0.1 MG tablet Take 1 (one) tablet by mouth 2 times daily clopidogrel (plaVIX) 75 MG tablet Take 1 (one) tablet by mouth once daily Start taking 12/19/22. cyclobenzaprine (Flexeril) 10 MG tablet Take 1 (one) tablet by mouth 2 times daily Docusate Sodium (DSS) 100 MG Take 100 mg by mouth 2 times daily dulaglutide (Trulicity) 1.5 MG/0.5ML injection ergocalciferol (Drisdol) 1.25 MG (46665 UT) capsule Take 1 (one) capsule by mouth ferrous sulfate 325 (65 FE) MG tablet Take 1 (one) tablet by mouth once daily losartan-hydroCHLOROthiazide (Hyzaar) 100-12.5 MG tablet Take 1 (one) tablet by mouth every morning metFORMIN (Glucophage) 1000 MG tablet Take 1 (one) tablet by mouth 2 times daily Multiple Vitamins-Minerals (One-A-Day Mens Health Formula) TABS pantoprazole EC (Protonix) 40 MG tablet Take 1 (one) tablet by mouth once daily Reasons: Stomach Ulcer 30 tablet 2 pregabalin (Lyrica) 50 MG capsule Take 1 (one) capsule by mouth 2 times daily 70 capsule 0 rosuvastatin (Crestor) 20 MG tablet Take 2 (two) tablets by mouth every morning sertraline (Zoloft) 50 MG tablet Take 1 (one) tablet by mouth once daily Past Medical History: Diagnosis Date Aortic stenosis mod-sev on 2022 echo CAD (coronary artery disease) High blood pressure LVH (left ventricular hypertrophy) Mixed hyperlipidemia Restless leg syndrome Sleep apnea [place] [place] balance residual Type 2 diabetes mellitus without complications [place] [place] Past Surgical History: Procedure Laterality Date Appendectomy Cardiac Catherization 2017 no intervetion COLONOSCOPY EGD ENDOSCOPY, UPPER N/A 12/15/2022 N/A; ESOPHAGOGASTRODUODENOSCOPY [...] Alive Hypertension Mother Cancer Father rectal; Status: . Taylor Rutledge needs to be admitted for 1-2 days postoperatively after total hip/knee arthroplasty for the following reasons: 1. Postoperative monitoring after anesthesia and blood loss > 200cc 2. Postoperative pain control (including intravenous narcotic medications) 3. To complete physical therapy for safe return to patient's previous living conditions including teaching of hip precautions where applicable or to perform knee ROM exercises where applicable 4. Postoperative medical evaluation and care of comorbid conditions by hospitalist team 5. Postoperative monitoring of hemoglobin/hematocrit and to evaluate for transfusion necessity after major orthopaedic surgery This dictation was performed with the use of Dragon voice recognition and errors with transcriptionmay occur. Please see resident's note for further details. Torrey Lafleur MD * Maisha Cabello RN - 09/26/2023 11:10 PM CST Problem: Pain/Discomfort Goal: Patient exhibits reduced pain/discomfort as evidenced by pain scores Outcome: Not Progressing Goal: Patient uses pharmacological and non-pharmacological pain management strategies. Outcome: Not Progressing Goal: Patient verbalizes acceptable level of pain relief and ability to engage in desired activity. Outcome: Not Progressing Problem: Fall Risk Goal: Fall risk and fall related injury risk are minimized (interventions related to the fall risk can be found in the flowsheet documentation) Outcome: Not Progressing Problem: General Goal: STG - Patient will Description: Sup to sit mod I Outcome: Not Progressing Goal: STG - Patient will Description: Ambulate with LRD mod I for 200' Outcome: Not Progressing Goal: STG - Patient will Description: Complete 1 step with SBA and LRD Outcome: Not Progressing Problem: General Goal: STG-Patient will Description: Complete toileting Partha Outcome: Not Progressing Goal: STG-Patient will Description: Complete LB dressing Partha using AE and maintaining PHP Outcome: Not Progressing EW COORDINATOR * Mamta Kyle [facility] - 09/26/2023 3:09 PM CST Images from the original note were not included. Pharmacy Monitoring ASSESSMENT AND PLAN Peak/ trough levels at steady state= 18.3/9.8 with AUC 381. Dose is increased to 1750 mg q12h with predicted AUC 444. Deescalation is expected soon pending final culture results. New Pk/Tr levels notordered yet. ACTIVE CONSULTS TO PHARMACY/DISEASE STATE MONITORING Pharmacy Consult: Vancomycin Management VANCOMYCIN MONITORING Indication: Osteomyelitis with Goal Level: AUC 400-600 Vancomycin Administrations from OCT (last 72 hours) Showing orders from other encounters Date/Time Action Medication Dose Rate 09/26/23 1416 $ New Bag/Syringe vancomycin (Vancocin) 1,750 mg in 535 mL IVPB 1,750 mg 305.71 mL/hr 09/26/23 0008 $ New Bag/Syringe vancomycin (Vancocin) 1,500 mg in 530 mL IVPB 1,500 mg 353.33 mL/hr 09/25/23 1249 $ New Bag/Syringe vancomycin (Vancocin) 1,500 mg in 530 mL IVPB 1,500 mg 353.33 mL/hr 09/24/23 2332 $ New Bag/Syringe vancomycin (Vancocin) 1,500 mg in 530 mL IVPB 1,500 mg 353.33 mL/hr 09/24/23 2150 $ Given [SPRINKLED IN INCISION] vancomycin (Vancocin) injection 1,000 mg 09/24/23 2104 $ Given vancomycin (Vancocin) injection 1 g Recent Labs Component Name 09/26/23 1100 09/25/23 0141 09/24/23 1058 12/16/22 0545 CREATININE - 0.88 0.90 0.81 BUN - 14 14 11 WBC - 9.9 11.8* 7.1 VANCTROUGH 9.8* - - - Plan for next level: Date/time: 09/28 Type: [x]Trough ; [] Random ; [x] Peak Ordered?: [] Yes ; [x] No Subjective / Objective Taylor Rutledge is a 58 year old male. Chief Complaint Patient presents with ??? Injury Leg Right leg pain. Hx of hip and knee surgery Height: 6' (182.9 cm) Wt 124.7 kg (275 lb) Body mass index is 37.3 kg/m??. Serum creatinine: 0.88 mg/dL 09/25/23 0141 Estimated creatinine clearance: 123.2 mL/min EW COORDINATOR * Ashish Barnett MD - 09/26/2023 2:29 PM CST Infectious Diseases Consult Note Patient's Primary Care Physician: Faisal Richardson DO Reason for Consultation: Rt prosthetic hip joint infection Referring Physcian: Bryant Jones MD Name: Taylor Rutledge Age: [age] year old 1 Chief Complaint/History of Present Illness HPI: Taylor Rutledge is a 58 year old White/Caucasianmale admitted 09/24 for evaluation of right hip pain. Hx of right hip arthroplasty in 06/2022 at [facility] in [place], [place]. Due to infectionhe is s/p removal or arthroplasty in 08/30/22 at [facility]; received IV antibiotics x 6 weeks via PICC line - he does not recall name of abx or organism/infection treated. Underwent revision right total hip arthroplasty, fixation of proximal femoral periprosthetic fracture in 12/08/22 with . Has hx of coronary artery disease, dm, hypertension, hyperlipidemia. Saw Dr. Lafleur in office on 09/11/23 with ongoing right hip /groin pain. Has received injection into the right iliopsoas tendon in 08/29/23 which did not help. As inflammatory markers were normal, plan at this visit was continued PT. However, he presented to the ER on 09/24 with worsening symptoms. On presentation low grade temp to 99, wbc 11.8. CRP 5.64 (0.33 in 03/2023). XRAY right hip shows hip prosthesis in normal alig nment without fracture or dislocation, no bone destruction. CT right hip shows fluid or soft tissuethickening lateral to the right greater trochanter without rim-enhancing fluid collection. Underwent hip arthrocentesis with 98k TNC 81% neutrophils. Cultures pending. Taken to OR on 09/24 for I&Dof right hip, cultures pending; wvac application. ID consulted. Interim Events: No fevers WBC normalized Cultures remain pending Wound vac in place Plan rpt OR debridement on 09/27 per ortho with wound closure vs wound vac exchange Objective: Review of Systems General: no fatigue/fever/chills Skin: no rashes/lesions Eyes: no vision problems/no conjunctival lesions HENT: no oral lesion/no hearing problems Respiratory: no cough/sob Cardiovascular: no cp/palpitations Gastrointestinal: no nausea/diarrhea Genitourinary: no dysuria/hematuria Musculoskeletal: no joint pain/no muscle pain; rt groin pain Neurological: no hope/seizures Psych: no depression/anxiety Exam Vitals: 09/25/23 2356 09/26/23 0340 09/26/23 0739 09/26/23 0846 BP: 114/63 113/59 116/61 123/67 Pulse: 74 73 70 77 Resp: 18 16 Temp: 98 ??F (36.7 ??C) 98 ??F (36.7 ??C) 98.1 ??F (36.7 ??C) 98.8 ??F (37.1 ??C) SpO2: 97% 98% 99% 93% Weight: Height: Temp (30hrs) Max:98.8 ??F (37.1 ??C) General appearance: cooperative, no distress, appears stated age, alert HEENT: ncat, vision intact Lungs: clear to auscultation bilaterally Heart: regular rate and rhythm, S1, S2 normal, no murmur, Abdomen: soft, non-tender; bowel sounds normal Extremities: extremities normal, atraumatic, no cyanosis or edema Rt hip wound vac in place Skin: no rash/lesion Lines: MEDICATIONS FOR CURRENT ENCOUNTER: SCHEDULED MEDICATIONS: *Hold/Avoid Medication, Other, 0800 and 2000 0.9% NaCl injection 3 mL, Intracatheter, q8h amLODIPine (Norvasc) tablet 10 mg, Oral, QDAY carvedilol (Coreg) tablet 25 mg, Oral, BID cefepime (Maxipime) 2,000 mg in 0.9% NaCl IV 50 mL IVPB, Intravenous, q8h cyclobenzaprine (Flexeril) tablet 10 mg, Oral, BID docusate sodium (Colace) capsule 100 mg, Oral, BID ferrous sulfate tablet 325 mg, Oral, QDAY insulin aspart (NovoLOG) pen 0-4 Units, Subcutaneous, AT BEDTIME insulin aspart (NovoLOG) pen 0-6 Units, Subcutaneous, TID WC pantoprazole EC (Protonix) tablet 40 mg, Oral, QDAY pregabalin (Lyrica) capsule 50 mg, Oral, BID rosuvastatin (Crestor) tablet 40 mg, Oral, QAM sertraline (Zoloft) tablet 200 mg, Oral, QDAY vancomycin (Vancocin) 1,750 mg in 535 mL IVPB, Intravenous, q12h vancomycin (Vancocin) IV dose per pharmacy, Does not apply, DIRECTED ?? [] iopamidol (Isovue 370) 76 % contrast, Intravenous, Contrast - Once Data Recent Labs Component Name 09/25/23 0141 09/24/23 1058 12/16/22 0545 WBC 9.9 11.8* 7.1 HGB 10.8* 12.6* 8.2* HCT 33.6* 38.9 26.0* PLTCOUNT 165 194 246 Recent Labs Component Name 09/25/23 0141 09/24/23 1058 12/16/22 0545 SODIUM 138 137 139 POTASSIUM 4.0 4.2 3.9 CHLORIDE 106 105 108* CO2 23 BUN 14 14 11 CREATININE 0.88 0.90 0.81 GLUCOSE 182* 178* 126* CALCIUM 8.6 9.4 9.1 Recent Labs Component Name 12/16/22 0545 12/15/22 0644 12/14/22 19311/27/22 0950 ALBUMIN 3.6 3.5 3.3* 4.4 ALKPHOS 66 - 63 73 ALT 15 - 18 24 AST 20 - 22 20 TBIL 0.9 - 1.2 0.9 TPROT 6.6 - 6.2* 7.4 No results for input(s): CDIFFTOXINAB in the last 82959 hours. Recent Labs Component Name 09/24/23 1058 SEDRATE 50* Recent Labs Component Name 09/24/23 1058 04/04/23 0950 CRP 5.64* 0.33 No results for input(s): CK in the last 02792 hours. . Recent Labs Component Name 09/26/23 0455 VANCOPEAK 18.3* Recent Labs Component Name 09/25/23 0141 12/14/22 19311/27/22 0950 HGBA1C 6.4* 6.0* 5.6 Recent Labs Component Name 11/27/22 0950 COLORUA Yellow CLARITYUA Clear SPECGRAVUA 1.019 PHUA 5.0 PROTEINUA Negative BLOODUA Negative LEUKOCYTEUA Negative NITRITEUA Negative GLUCOSEUA Negative KETONEUA Negative BILIRUBINUA Negative UROBILINUA Negative Microbiology 09/24 Rt hip aspiration cultures pending 09/24 Rt hip OR/I&D cultures pending 09/25 blood cultures neg Radiology Assessment *Right prosthetic hip / hardware infection -06/2022: s/p hip arthroplasty for arthritis ([place], [place]) -08/30/22: s/p hardware removal due to infection, IV abx x 6wks ([place], [place]) -12/08/22: s/p revision arthroplasty, fixation of proximal femoral periprosthetic fracture, Dr. Lafleur -chronic/ongoing rt hip/thigh/groin pain since -no response to iliopsoas tendon injection 08/29/23 -presented to ER 09/24 with progressive sx, CRP 5.64, WBC 11.3 -09/24: arthrocentesis: 98k TNC, 81% neutrophils, cx pending -09/24: s/p rt hip arthrotomy with I&D, placement of abx cement beads, removal of hardware/cerclage cable, wound vac application; cx pending *gastric ulcers / gastritis sp EGD 12/15/22 *coronary artery disease *hyperlipidemia *diabetes Estimated Creatinine Clearance: 123.2 mL/min (by C-G formula based on SCr of 0.88 mg/dL). Plan -continue vancomycin / cefepime for now; de-escalate soon -follow OR I&D cultures 09/24 still pending -follow arthrocentesis cultures, 09/24 pending -follow blood cultures 09/25 neg -monitor labs -wound vac management per ortho -plan per ortho is OR for I&D and wound closure vs wvac exchange 09/27/23 Dispo: -anticipate prolonged IV antibiotic course x 6 weeks / PICC line eventually once bcx neg x 48h / OPAT via [facility] care as he [place] very far away -anticipate likely chronic suppression with po antibiotic upon completion of 6 weeks IV (given retention of some hardware) -pending finalized OR cultures / work up as above Discussed with patient, care team Ashish Barnett MD EW COORDINATOR * Angelika Tamayo, PT - 09/26/2023 11:59 AM CST Physical Therapy Treatment Summary Chart review completed. Nursing consented for PT. Explained purpose of PT and patient consented to participate in therapy. RECOMMENDATIONS/PLAN: continue per POC PT Discharge Recommendations: Patient would benefit from ongoing therapy with home health PPE worn by staff: gloves;mask - procedural PPE worn by patient: socks - clean;gown - patient, clean AM-PAC Basic mobility score for this patient is Mobility Raw Score:: 18 SUBJECTIVE: Subjective: I think I need some pain meds first Pain Assessment: Pain Location #1 Pain Scale/Observation: Numeric (0-10) Pain Rating Score #1: 7 Pain Location : Leg Pain Orientation: Right OBJECTIVE: Orientation Level: Oriented X4 Precautions: fall, WBAT with PHP R LE, wound vac Bed Mobility: Supine to Sit: Modified [place] Transfers: Sit to Stand: Stand By Assist Stand to Sit: Stand By Assist Mobility: Distance Ambulated: 250 FEET Ambulation: Assistive Device: Gait Belt;Walker-2 Wheeled Ambulation: Level of Assistance: Stand By Assist Ambulation: Gait Deviations: Antalgic Weight Bearing Status-RLE: Weight Bearing as Tolerated (with PHP) ASSESSMENT: Patient supine in bed, agreeable to participate. Patient SBA/mod I for all mobility this date, utilized WW for gait with improved gait mechanics noted. Patient able to ambulate further this date. Returned to bed per patient request. Call light and phone in reach All lines, monitors, IV's, equipment in place and intact pre and post visit. Pt educated in PT plan of care, fall precautions, and benefits of OOB activity. Rebecca PEREZ, notified of patient's performance/location end of session. Please refer to the Filed Flowsheet for further details. Refer to Plan of Care for PT goals. If this is the last Physical Therapy visit, this note serves as the discharge summary. ABHISHEK Guevara [phone] EW COORDINATOR * Tyler Fischer RN - 09/26/2023 11:29 AM CST Problem: Pain/Discomfort Goal: Patient exhibits reduced pain/discomfort as evidenced by pain scores Outcome: Progressing Goal: Patient uses pharmacological and non-pharmacological pain management strategies. Outcome: Progressing Goal: Patient verbalizes acceptable level of pain relief and ability to engage in desired activity. Outcome: Progressing Problem: Fall Risk Goal: Fall risk and fall related injury risk are minimized (interventions related to the fall risk can be found in the flowsheet documentation) Outcome: Progressing Problem: General Goal: STG - Patient will Description: Sup to sit mod I Outcome: Progressing Goal: STG - Patient will Description: Ambulate with LRD mod I for 200' Outcome: Progressing Goal: STG - Patient will Description: Complete 1 step with SBA and LRD Outcome: Progressing Problem: General Goal: STG-Patient will Description: Complete toileting Partha Outcome: Progressing Goal: STG-Patient will Description: Complete LB dressing Partha using AE and maintaining PHP Outcome: Progressing EW COORDINATOR * Praveen Kaufman MD - 09/26/2023 11:17 AM CST Hospitalist Progress Note Admit Date: 09/24/2023 11:47 AM Hospital Day: 2 Clinical Course This is a 58-year-old male patient past medical history of aortic stenosis, CAD, right hip replacement Rt hip replacement w/ wound vac (2022), hyperlipidemia, CVA, diabetes who presented to the emergency department with complaints of right hip pain. Patient tells me he has been having pain for over1 year but as of yesterday the pain worsened and he is unable to bear weight. New Symptoms Pain in hip better controlled today Exam Vitals: 09/25/23 2356 09/26/23 0340 09/26/23 0739 09/26/23 0846 BP: 114/63 113/59 116/61 123/67 Pulse: 74 73 70 77 Resp: 18 16 Temp: 98 ??F (36.7 ??C) 98 ??F (36.7 ??C) 98.1 ??F (36.7 ??C) 98.8 ??F (37.1 ??C) SpO2: 97% 98% 99% 93% Weight: Height: General appearance: in no acute distress, cooperative Eyes: sclerae anicteric, conjunctivae pink Lungs: non labored breaths, clear to auscultation Heart: regular rate and rhythm Abdomen: soft and non tender Extremities: moves all extremities, Right hip wound vac Neuro: non focal exam, conversational Skin: psoriasis upper and lower extremities bilaterally Data Reviewed all labs and imaging MEDICATIONS FOR CURRENT ENCOUNTER: ?? SCHEDULED MEDICATIONS: ??? *Hold/Avoid Medication Other 0800 and 1999 ??? 0.9% NaCl 3 mL Intracatheter q8h ??? amLODIPine 10 mg Oral QDAY ??? carvedilol 25 mg Oral BID ??? cefepime 2 g Intravenous q8h ??? cyclobenzaprine 10 mg Oral BID ??? docusate sodium 100 mg Oral BID ??? enoxaparin 40 mg Subcutaneous QDAY ??? ferrous sulfate 325 mg Oral QDAY ??? insulin aspart 0-4 Units Subcutaneous AT BEDTIME ??? insulin aspart 0-6 Units Subcutaneous TID WC ??? iopamidol Intravenous Contrast - Once ??? naloxone 0.04 mg Intravenous post-OP multiple ??? pantoprazole EC 40 mg Oral QDAY ??? pregabalin 50 mg Oral BID ??? rosuvastatin 40 mg Oral QAM ??? sertraline 200 mg Oral QDAY ??? vancomycin 1,500 mg Intravenous q12h ??? vancomycin (VANCOCIN) IV dose per pharmacy Does not apply DIRECTED ?? PRN MEDICATIONS: ??? SALINE LOCK, INSERT AND MAINTAIN AND 0.9% NaCl AND 0.9% NaCl ??? acetaminophen ??? dextrose IV for hypoglycemia OR dextrose IV for hypoglycemia OR glucagon ??? glucose (Diabetic Use) gel ??? HYDROmorphone ??? ondansetron (disintegrating) ??? ondansetron ??? oxyCODONE-acetaminophen ??? prochlorperazine ??? prochlorperazine Assessment and Plan Right prosthetic hip, hardware infection Orthopedic surgery consulted I&D, removal of hardware, wound vac placement on 09/24 Repeat OR for I&D on 09/27 NPO midnight Evaluated by ID IV vanc and cefepime for now F/u on cultures Pain control Bowel regimen Hypertension Continue amlodipine and coreg CVA history: Continue statin Holding aspirin, Plavix ?? Diabetes mellitus Sliding scale insulin Diabetic diet ?? Mood disorder: Continue Wellbutrin, Zoloft ?? Hypertension: Continue Norvasc, Coreg ?? GERD: Protonix Psoriasis Follows with Dermatology at [facility] DVT ppx -Lovenox (hold after today dose) Disposition: Pending clinical course Praveen Kaufman MD Date of Service: 09/26/23 Patient was seen by me on 09/26 at around 1000 EW COORDINATOR * Brigido Lundberg MD - 09/26/2023 8:04 AM CST Orthopedic Surgery Progress Note Name: Taylor Rutledge 58 year old, male : 1965 Admit Date: 09/24/2023 11:47 AM September 26, 2023 Subjective Patient seen this morning on rounds. In no acute distress. Data BP 116/61 (BP Cuff Size: A) Pulse 70 Temp 98.1 ??F (36.7 ??C) (Oral) Resp 18 Ht 1.829 m (6') Wt 124.7 kg (275 lb) SpO2 99% Temp (24hrs), Av.1 ??F (36.7 ??C), Min:98 ??F (36.7 ??C), Max:98.3 ??F (36.8 ??C) Labs Recent Labs Component Name 09/25/23 0141 09/24/23 1058 12/16/22 0545 WBC 9.9 11.8* 7.1 HGB 10.8* 12.6* 8.2* HCT 33.6* 38.9 26.0* PLTCOUNT 165 194 246 Physical Exam General appearance: No apparent distress. Right lower extremity: Motor: Able to plantarflex and dorsiflex ankle. Able to straight-leg raise, fully extend knee. Sensation to light touch grossly intact over foot. 2+DP, Toes warm and well perfused distally. Wound vac is in place holding suction well. Assessment/Plan 58 year old male with: Active Problems: Inability to ambulate due to hip Pain of right hip Post op day #2 status post Procedure(s) (LRB): ASPIRATION RIGHT HIP UNDER FLUOROSCOPY, FLUOROSCOPY FOR NEEDLE PLACEMENT RIGHT HIP, ARTHROTOMY WITHIRRIGATION AND DEBRIDEMENT RIGHT HIP, REMOVAL OF HARDWARE RIGHT HIP, PLACEMENT OF ANTIBIOTIC BEADS RIGHT HIP X20, WOUND VAC PLACEMENT RIGHT HIP (Right) 1. right lower extremity: WBAT with posterior hip precautions 2. Continue pain control 3. Activity: as tolerated 4. PT/OT 5. Continue vancomycin until cultures have resulted and able to downgrade 6. DVT PPx: lovenox 7. Plan for return to the OR tomorrow 09/27 for repeat I&D with wound closure vs. wound vac exchange 8. Please page ortho with questions EW COORDINATOR * Shoshana Howard RN - 09/26/2023 4:26 AM CST Problem: Pain/Discomfort Goal: Patient uses pharmacological and non-pharmacological pain management strategies. Outcome: Progressing Problem: Fall Risk Goal: Fall risk and fall related injury risk are minimized (interventions related to the fall risk can be found in the flowsheet documentation) Outcome: Progressing EW COORDINATOR * Lane Nathan, OT - 09/25/2023 2:45 PM CST Occupational Therapy Initial Evaluation Orders received. Chart reviewed for diagnosis and medical systems review. Nursing consented for OT. Explained purpose of OT and patient consented to participate in therapy. RECOMMENDATIONS/PLAN: Pt would benefit from continued OT during hospitalization in order to addressactivity tolerance, safety, and independence with self care tasks and functional mobility. Discharge OT Discharge Recommendations: Patient would benefit from ongoing therapy with home health AM-PAC Daily Activity Raw Score:: 17 ADMIT: 1. Infection of prosthetic joint, initial encounter ([facility]) 2. Pain of right hip 3. Inability to ambulate due to hip 4. Diagnosis unknown PPE worn by staff: gloves;mask - surgical Precautions: Fall Risk, WBAT RLE, PHP SUBJECTIVE: I lost a lot of blood yesterday Psychosocial: Patient Behaviors: Calm;Cooperative Pt's goal for therapy: Return Home Occupational Profile/PLOF: Type of Residence: Private Residence Lives with:: Spouse Home Structure: One Story Steps to Enter: 1 Handrails: Outdoor Ramp: No Primary Bedroom: First Floor Primary Bathroom: First Floor Bathroom : Walk in Shower Equipment at Home: Chair-Shower;Hand Held Shower;Toilet Seat - Raised;Walker-2 Wheeled;Walker-Standard Mobility: Ambulate-In Community;Ambulate-In Home ;Independent;Without Assistive Device;Driving Fallen Within 6 Mos: No Have Help at Home?: Yes, there is help at home now How often is assistance provided?: Patient reports his can assist at home. Level of Help Sufficient?: Yes Oxygen at Home: No Activity at Home: Active;Driving Who manages medications?: Patient Vision: Corrected with glasses Hearing Exceptions: No impairment Cognition: Orientation Level: Oriented X4 Level of Consciousness-Adult: Alert Cognition: Follows Commands-Consistent;Processing-Appropriate;Attention/concentration-normal for age Pain Assessment: Pain Location #1 Pain Scale/Observation: Numeric (0-10) Pain Rating Score #1: 5 Sedation Level #1: 1-Awake and alert Pain Location : Hip;Leg Pain Orientation: Right RUE Assessment: AROM - Right Upper Extremity: Within Functional Limits Strength - Right Upper Extremity: Within Functional Limits Compliance Clerk Strength: Compliance Clerk Strength - Right Upper Extremity: WFL LUE Assessment: AROM - Left Upper Extremity: Within Functional Limits Strength - Left Upper Extremity: Within Functional Limits Compliance Clerk Strength: Compliance Clerk Strength - Left Upper Extremity: WFL: Basic ADL's: Based on observation and clinical judgement Feeding: Complete [place] Oral Facial Hygiene: Stand By Assist (for balance standing at sink) Bathing: Moderate Assistance Upper Body Dressing: Set-up Lower Body Dressing: Maximal Assistance (will trial AE next session) Toileting: Minimal Assistance Functional Mobility: Bed Mobility: Supine to Sit: Stand By Assist (HOB elevated) Sit to Supine: Activity Does Not Occur (Pt in recliner at end of session) Transfers: Sit to Stand: Minimal Assistance Stand to Sit: Minimal Assistance;Requires Verbal Cues for Safety;Requires Verbal Cues for Technique(uncontrolled descent) Mobility: Distance Ambulated: (Functional mobility in room and [place]) Ambulation: Assistive Device: Gait Belt;Walker-Standard Ambulation: Level of Assistance: Minimum Assistance Oxygen Therapy: $ O2 DEVICE: Room Air Vitals: Activity Tolerance: Tolerates ADLs without rest breaks SpO2: 93 % Pulse: 78 BP: 134/73 MAP: 93 ASSESSMENT: Pt in bed upon OT arrival, agreeable to therapy session. Pt participated in assessment of BUE strength/ROM, functional transfers, mobility, and self care tasks with pt requiring assist levels noted above. Pt limited by PHP, pain, decreased activity tolerance, decreased knowledge of condition, decreased balance, and generalized weakness. Reviewed PHP prior to mobility. Assisted pt withdonning non slip socks 2/2 no AE available - will trial AE next session. Pt completed functional mobility in room and [place] with standard walker and SBA-Ángel. Pt positioned for comfort in recliner at end of session with all immediate needs met as OT departs. Call light and phone in reach. All lines, monitors, IV's, equipment in place and intact pre and post visit. RNMulu, notified of patient's performance/location end of session. Educated patient/family in fall prevention, role of OT, ADL assessment, functional mobility, transfers, safety, energy conservation, PHP, AE, WB Status Problem list: Decreased strength, decreased ROM, decreased endurance, decreased balance, impaired functional mobility, decreased knowledge of condition, decreased pain tolerance, need for family/caregiver training Functional limitation: Decreased independence with transfers; decreased ability to perform ADLs, decreased UE strength, decreased safety with functional mobility. Rationale for therapy: Patient will benefit from OT to address the above issues. Patient will be seen for: ADL retraining, functional transfers, balance, endurance, exercise. Refer to Plan of Care for OT goals. Refer to filed flow sheet for further details. If this is the last Occupational Therapy visit, this serves as the discharge summary. MEL Sherman, OTR/L [phone] EW COORDINATOR * Angelika Tamayo, PT - 09/25/2023 2:10 PM CST Physical Therapy Evaluation. PT orders received, chart reviewed for diagnosis and medical systems review.. Nursing consents for PT. Explained purpose of PT and patient consented to participate in therapy. RECOMMENDATIONS/PLAN: continue per POC PT Discharge Recommendations: Patient would benefit from ongoing therapy with home health PPE worn by staff: gloves;mask - procedural PPE worn by patient: gown - patient, clean;socks - clean AM-PAC Basic mobility score for this patient is Mobility Raw Score:: 17 SUBJECTIVE: Subjective: This isn't my first rode Home Situation: Type of Residence: Private Residence Lives with:: Spouse Steps to Enter: 1 Home Structure: One Story Primary Bedroom: First Floor Primary Bathroom: First Floor Bathroom : Walk in Shower Equipment at Home: Chair-Shower;Hand Held Shower;Toilet Seat - Raised;Walker-2 Wheeled;Walker-Standard Prior Level of Functioning: Mobility: Independent;Without Assistive Device;Driving Fallen Within 6 Mos: No Have Help at Home?: Yes, there is help at home now How often is assistance provided?: Patient reports his can assist at home. Pain Assessment: Pain Location #1 Pain Scale/Observation: Numeric (0-10) Pain Rating Score #1: 5 Pain Location : Hip;Leg Pain Orientation: Right Patient/family stated goal: To go home OBJECTIVE: Cognition: Orientation Level: Oriented X4 Level of Consciousness-Adult: Alert Participation: Active Participation Precautions: fall, WBAT R LE with PHP, wound vac ROM and Strength: AROM - Left Lower Extremity: Within Functional Limits Strength - Left Lower Extremity: Within Functional Limits Bed Mobility: Supine to Sit: Stand By Assist Transfers: Sit to Stand: Minimal Assistance Stand to Sit: Minimal Assistance;Requires Verbal Cues for Safety;Requires Verbal Cues for Technique Mobility: Distance Ambulated: 150 FEET Ambulation: Assistive Device: Gait Belt;Walker-Standard Ambulation: Level of Assistance: Minimum Assistance Ambulation: Gait Deviations: Antalgic Weight Bearing Status-RLE: Weight Bearing as Tolerated (with PHP) ASSESSMENT: Patient supine in bed, agreeable to participate. Pt co-evaluated with OT for safety with mobility. Patient SBA/min A for all mobility, wanting to use personal standard walker from home. Patient noted to be putting walker very far in front of him, willing to try WW tomorrow to help normalize gait mechanics. Returned to room and up in recliner for comfort Call light and phone in reach All lines, monitors, IV's, equipment in place and intact pre and post visit. RNMulu, notified of patient's performance/location end of session. Pt educated in PT plan of care, fall precautions, and benefits of OOB activity. Problem list: decreased strength, decreased balance, decreased endurance, decreased ROM, decreased coordination Functional limitations: Decreased independence with ambulation/transfers, decreased safety with functional mobility. Rationale for therapy: Patient will benefit from PT to address the above issues. Refer to Plan of Care for PT goals. Please refer to Filed Flowsheet PT Evaluation for further details. If this is the last PT visit, this note serves as the discharge summary. ABHISHEK Guevara [phone] EW COORDINATOR * Praveen Kaufman MD - 09/25/2023 10:10 AM CST Hospitalist Progress Note Admit Date: 09/24/2023 11:47 AM Hospital Day: 1 Clinical Course This is a 58-year-old male patient past medical history of aortic stenosis, CAD, right hip replacement Rt hip replacement w/ wound vac (2022), hyperlipidemia, CVA, diabetes who presented to the emergency department with complaints of right hip pain. Patient tells me he has been having pain for over1 year but as of yesterday the pain worsened and he is unable to bear weight. New Symptoms Pain in hip not controlled Exam Vitals: 09/24/23 2301 09/25/23 0059 09/25/23 0445 09/25/23 0749 BP: 122/72 123/65 108/63 125/53 Pulse: 75 78 76 73 Resp: Temp: 98.2 ??F (36.8 ??C) 97.6 ??F (36.4 ??C) 98.3 ??F (36.8 ??C) SpO2: 93% 94% 95% 99% Weight: Height: General appearance: in no acute distress, cooperative Eyes: sclerae anicteric, conjunctivae pink Lungs: non labored breaths, clear to auscultation Heart: regular rate and rhythm Abdomen: soft and non tender Extremities: moves all extremities, Right hip wound vac Neuro: non focal exam, conversational Skin: psoriasis upper and lower extremities bilaterally Data Reviewed all labs and imaging MEDICATIONS FOR CURRENT ENCOUNTER: ?? SCHEDULED MEDICATIONS: ??? *Hold/Avoid Medication Other 08 and 1999 ??? 0.9% NaCl 3 mL Intracatheter q8h ??? amLODIPine 10 mg Oral QDAY ??? carvedilol 25 mg Oral BID ??? cefepime 2 g Intravenous q8h ??? cyclobenzaprine 10 mg Oral BID ??? docusate sodium 100 mg Oral BID ??? enoxaparin 40 mg Subcutaneous QDAY ??? ferrous sulfate 325 mg Oral QDAY ??? insulin aspart 0-4 Units Subcutaneous AT BEDTIME ??? insulin aspart 0-6 Units Subcutaneous TID WC ??? iopamidol Intravenous Contrast - Once ??? naloxone 0.04 mg Intravenous post-OP multiple ??? pantoprazole EC 40 mg Oral QDAY ??? pregabalin 50 mg Oral BID ??? rosuvastatin 40 mg Oral QAM ??? sertraline 200 mg Oral QDAY ??? vancomycin 1,500 mg Intravenous q12h ??? vancomycin (VANCOCIN) IV dose per pharmacy Does not apply DIRECTED ?? PRN MEDICATIONS: ??? SALINE LOCK, INSERT AND MAINTAIN AND 0.9% NaCl AND 0.9% NaCl ??? acetaminophen ??? dextrose IV for hypoglycemia OR dextrose IV for hypoglycemia OR glucagon ??? glucose (Diabetic Use) gel ??? HYDROmorphone ??? ondansetron (disintegrating) ??? ondansetron ??? oxyCODONE-acetaminophen ??? prochlorperazine ??? prochlorperazine Assessment and Plan Right prosthetic hip, hardware infection Orthopedic surgery consulted I&D, removal of hardware, wound vac placement on 09/24 Repeat OR for I&D on 09/27 Evaluated by ID IV vanc and cefepime for now F/u on cultures Pain control Bowel regimen Hypertension Continue amlodipine and coreg CVA history: Continue statin Holding aspirin, Plavix ?? Diabetes mellitus Sliding scale insulin Diabetic diet ?? Mood disorder: Continue Wellbutrin, Zoloft ?? Hypertension: Continue Norvasc, Coreg ?? GERD: Protonix Psoriasis Follows with Dermatology at [facility] DVT ppx -Lovenox Disposition: Pending clinical course Praveen Kaufman MD Date of Service: 09/25/23 Patient was seen by me on 09/25 at around 0950 EW COORDINATOR * Brigido Lundberg MD - 09/25/2023 8:26 AM CST Orthopedic Surgery Progress Note Name: Taylor Rutledge 58 year old, male : 1965 Admit Date: 09/24/2023 11:47 AM September 25, 2023 Subjective Patient seen this morning on rounds. In no acute distress. Patient taken to the OR last night for right hip irrigation and debridement, antibiotic bead placement, and wound vac application Data BP 125/53 (BP Cuff Size: A) Pulse 73 Temp 98.3 ??F (36.8 ??C) (Oral) Resp 18 Ht 1.829 m (6') Wt 124.7 kg (275 lb) SpO2 99% Temp (24hrs), Av.5 ??F (36.9 ??C), Min:97.6 ??F (36.4 ??C), Max:99.1 ??F (37.3 ??C) Labs Recent Labs Component Name 09/25/23 0141 09/24/23 1058 12/16/22 0545 WBC 9.9 11.8* 7.1 HGB 10.8* 12.6* 8.2* HCT 33.6* 38.9 26.0* PLTCOUNT 165 194 246 Physical Exam General appearance: No apparent distress. Right lower extremity: Motor: Able to plantarflex and dorsiflex ankle. Able to straight-leg raise, fully extend knee. Sensation to light touch grossly intact over foot. 2+DP, Toes warm and well perfused distally. Wound vac is in place holding suction well. Assessment/Plan 58 year old male with: Active Problems: Inability to ambulate due to hip Pain of right hip Post op day #1 status post Procedure(s) (LRB): ASPIRATION RIGHT HIP UNDER FLUOROSCOPY, FLUOROSCOPY FOR NEEDLE PLACEMENT RIGHT HIP, ARTHROTOMY WITHIRRIGATION AND DEBRIDEMENT RIGHT HIP, REMOVAL OF HARDWARE RIGHT HIP, PLACEMENT OF ANTIBIOTIC BEADS RIGHT HIP X20, WOUND VAC PLACEMENT RIGHT HIP (Right) 1. right lower extremity: WBAT with posterior hip precautions 2. Continue pain control 3. Activity: as tolerated 4. PT/OT 5. Continue vancomycin until cultures have resulted and able to downgrade 6. DVT PPx: lovenox 7. Plan for return to the OR on 09/27 for repeat I&D with wound closure vs. wound vac exchange 8. Please page ortho with questions EW COORDINATOR * Deena Kline RN - 09/25/2023 7:38 AM CST Care Coordination Initial Assessment Anticipated Discharge Date: 10/02/23 Transportation at Discharge: Anticipated level of care at discharge: Home Health - IV and Home Health Care Anticipated level of care provider: Kelsy Wasserman [facility] Prior to admission level of care: Home Prior to admit provider: None Patient Goals: Home with Home Health Care and Home IV Plans: Discharge needs identified. See progress notes for details. Case Management to follow for discharge planning. Comments: Patient resides in a private residence with spouse, retired, drives presents with severe hip pain denying any fall or injury hx/o aortic stenosis, CAD, HTN, LVH, HLD, sleep apnea, stroke, DM. Admitted for infected revision right total hip arthroplasty with symptoms for 24 hours s/p previous 2 stage reconstruction for infection from a primary hip arthroplasty from as outside facility > OR, I&D and wound closure vs wound vac exchange 09.27.23, blood cx, labs, arthrocentesis cultures, anticipate prolonged IV antibiotic course x 6 weeks/ PICC line eventually once blood cx negativex 48 hours. CM has contacted [facility] for potential services and referral has been sent to [facility]. CM will continue to follow POC and provide additional assistance as needed. Lives with: Spouse Physical Limitations: None Requires Assistance With: None Preferred Pharmacy: [facility] [place] [address] [id number] [address] [address] READMISSION RISK SCORE is 14 at 6:43 AM 09/26/2023. Met with patient Family Support (name and phone): Extended Emergency Contact Information Primary Emergency Contact: Marguerite Rutledge Address: [address] [place] [address] Relation: Spouse Patient or customer loyalty representative requests care coordination reach out to family or caregiver listed above regarding discharge planning and at time of discharge? No Patient/Family provided with list of resources? No Preferred Provider / High Quality Network List given?: No Reason for provider choice: Insurance, Pt. choice - Pt. choice Equipment at Home: Chair-Shower;Hand Held Shower;Toilet Seat - Raised;Walker-2 Wheeled;Walker-Standard Preparation Department Supervisor Referral: No Will continue to follow. For any questions or needs please contact: [employer] Developer Name/Phone number: Deena Kline RN, BSN, MSN, CM / [phone] EW COORDINATOR * Shayne Stoner [facility] - 09/24/2023 10:07 PM CST Images from the original note were not included. Pharmacy Monitoring ACTIVE CONSULTS TO PHARMACY/DISEASE STATE MONITORING Pharmacy Consult: Vancomycin Management VANCOMYCIN MONITORING Indication: bone/joint infection with Goal Level: AUC 400-600 Vancomycin Administrations from OCT (last 72 hours) Showing orders from other encounters Date/Time Action Medication Dose 09/24/23 2150 $ Given [SPRINKLED IN INCISION] vancomycin (Vancocin) injection 1,000 mg 09/24/23 2104 $ Given vancomycin (Vancocin) injection 1 g Recent Labs Component Name 09/24/23 1058 12/16/22 0545 12/15/22 1948 12/15/22 1149 12/15/22 0644 CREATININE 0.90 0.81 - - 0.82 BUN 14 11 - - 12 WBC 11.8* 7.1 8.6 - 7.4 - = values in this interval not displayed. Vancomycin Dosing/Modification History: Date Current Dose / Frequency Level result (mcg/mL) Level Type Level Drawn (date/time) Time from last dose (hrs) # of doses given since last dosing change Plan for next level: peak+trough@SS Type: [x]Trough ; [] Random ; [x] Peak Ordered?: [] Yes ; [x] No Subjective / Objective Taylor Rutledge is a 58 year old male. Chief Complaint Patient presents with ??? Injury Leg Right leg pain. Hx of hip and knee surgery Height: 6' (182.9 cm) Wt 124.7 kg (275 lb) Body mass index is 37.3 kg/m??. Serum creatinine: 0.9 mg/dL 09/24/23 1058 Estimated creatinine clearance: 120.5 mL/min ASSESSMENT/PLAN: Pt to begin on vancomycin per AUC dosing protocol with loading dose = 2500 mg x1 (25 mg/kg). Note: Pt already received 1 gm in OR tonight @2100, So will supplement with 1500mg x1 tonight. Maintenance dose = 1500 mg IV q12hrs, to begin 0900 09/25, with estimated AUC = 515 (goal range = 400-600) Will plan for peak and trough levels at steady state. Shayne Stoner RPH EW COORDINATOR * Germain Donovan MD - 09/24/2023 9:44 PM CST Orthopedic Surgery Postoperative Check Taylor Rutledge, 58 year old, male : 1965 CSN: [id number] Admitted: 09/24/2023 11:47 AM Subjective Nausea/vomiting: none Pain: controlled Patient stable and resting in post-anesthesia care unit Post-op check regarding: Procedure Performed: Procedure(s): ASPIRATION RIGHT HIP UNDER FLUOROSCOPY, FLUOROSCOPY FOR NEEDLE PLACEMENT RIGHT HIP, ARTHROTOMY WITHIRRIGATION AND DEBRIDEMENT RIGHT HIP, REMOVAL OF HARDWARE RIGHT HIP, PLACEMENT OF ANTIBIOTIC BEADS RIGHT HIP X20, WOUND VAC PLACEMENT RIGHT HIP Surgery Date: 09/24/2023 Vitals: Patient Vitals for the past 6 hrs: Temp Pulse Resp BP BP Method 09/24/23 1813 98.6 ??F (37 ??C) 78 18 118/67 -- 09/24/23 1729 98.6 ??F (37 ??C) 78 18 118/67 Automatic Physical Exam General appearance: Awake, cooperative, and NAD RLE -Appearance: wound vac to right hip in place, holding appropriate suction -ROM: not assessed -Motor: Fires EHL/FHL, Gastroc/TA -Sensation: SILT over toes -Vascular: brisk capillary refill, toes warm and well perfused Assessment/Plan Patient is a 58 year old, male with right prosthetic hip joint infection - s/p: right hip aspiration, Irrigation and debridement, with antibiotic beads placement (x20) 1. Patient will require return to OR for repeat right hip irrigation and debridement, polyethylene exchange, wound vac versus closure 2. Patient transferred to the PACU in stable condition. Patient will be transferred to the floor 3. Intra-operative swabs/tissue and aspiration sent to microbiology lab, will continue to follow for results 4. Antibiotics- Ancef 2mg q8 for 24 hours, continue IV vancomycin thereafter until cultures result 5. Consultation to infectious disease placed 6. Weight-bearing/Activity/Brace Status: WBAT RLE, activity as tolerated 7. DVT Prophylaxis: Lovenox while inpatient 8. Diet: OK from Ortho perspective 9. WVac x1, please record output every shift in flowsheets 10. PT/OT 11. Pain Control per primary 12. Please page Ortho with any questions or concerns Germain Donovan MD 09/24/2023 9:44 PM EW COORDINATOR * Libia Lamas RN - 09/24/2023 7:53 PM CST Problem: Pain/Discomfort Goal: Patient exhibits reduced pain/discomfort as evidenced by pain scores Outcome: Progressing Goal: Patient uses pharmacological and non-pharmacological pain management strategies. Outcome: Progressing Goal: Patient verbalizes acceptable level of pain relief and ability to engage in desired activity. Outcome: Progressing Problem: Fall Risk Goal: Fall risk and fall related injury risk are minimized (interventions related to the fall risk can be found in the flowsheet documentation) Outcome: Progressing EW COORDINATOR documented in this encounter H&P Notes * Sarha Parsons APRN-IRIS - 09/24/2023 3:59 PM CST [employer] H&P Sarah Rutledge 1965 Data Unavailable 09/24/2023 Faisal Richardson, DO Chief Complaint Patient presents with ??? Injury Leg Right leg pain. Hx of hip and knee surgery HPI This is a 58-year-old male patient past medical history of aortic stenosis, CAD, right hip replacement Rt hip replacement w/ wound vac (2022), hyperlipidemia, CVA, diabetes who presented to the emergency department with complaints of right hip pain. Patient tells me he has been having pain for over1 year but as of yesterday the pain worsened and he is unable to bear weight. He denies any fever, nausea, vomiting, chest pain, shortness on breath, constipation or diarrhea. Patient has a healing surgical wound on right hip but denies any drainage from area. Past Medical History: Diagnosis Date ??? Aortic stenosis mod-sev on 2022 echo ??? CAD (coronary artery disease) ??? High blood pressure ??? LVH (left ventricular hypertrophy) ??? Mixed hyperlipidemia ??? Restless leg syndrome ??? Sleep apnea uses cpap ??? Stroke ([facility] 2021 balance residual ??? Type 2 diabetes mellitus without complications (CMS-HCC) Past Surgical History: Procedure Laterality Date ??? Appendectomy ??? Cardiac Catherization 2018 no intervetion ??? COLONOSCOPY ??? EGD ??? ENDOSCOPY, UPPER N/A 12/15/2022 N/A; ESOPHAGOGASTRODUODENOSCOPY (EGD) DIAGNOSTIC ??? ENDOSCOPY, UPPER 12/15/2022 ESOPHAGOGASTRODUODENOSCOPY (EGD) BIOPSY ??? GENERAL SURGERY PROCEDURE Right 12/08/2022 Right; PREVENA/ WOUND VAC APPLICATION RIGHT HIP ??? HIP ARTHROPLASTY, REVISION Right 12/08/2022 Right; REVISION RIGHT TOTAL HIP ARTHROPLASTY BOTH COMPONENTS, REMOVAL OF ANTIBIOTIC SPCER RIGHT HIP ??? HIP ARTHROPLASTY, TOTAL Right ??? OTHER SURGERY Right 08/30/2022 removed hip and placed antibiotic spacer ??? Rotator Cuff Repair Right ??? SHOULDER ARTHROPLASTY, TOTAL Left Family History Problem Relation Name Age of Onset ??? Diabetes Mother Status: Alive ??? Hypertension Mother ??? Cancer Father rectal; Status: Social History Socioeconomic History ??? Marital status: Spouse name: Not on file ??? Number of children: Not on file ??? Years of education: Not on file ??? Highest education level: Not on file Occupational History ??? Not on file Tobacco Use ??? Smoking status: Never ??? Smokeless tobacco: Never Vaping Use ??? Vaping Use: Never used Substance and Sexual Activity ??? Alcohol use: Not Currently ??? Drug use: No ??? Sexual activity: Yes Partners: Female Other Topics Concern ??? Not on file Social History Narrative ??? Not on file Social Determinants of Health Financial Resource Strain: Low Risk (12/14/2022) Overall Financial Resource Strain (CARDIA) ??? Difficulty of Paying Living Expenses: Not hard at all Food Insecurity: No Food Insecurity (12/15/2022) Hunger Vital Sign ??? Worried About Running Out of Food in the Last Year: Never true ??? Ran Out of Food in the Last Year: Never true Transportation Needs: No Transportation Needs (12/14/2022) PRAPARE - Transportation ??? Lack of Transportation (Medical): No ??? Lack of Transportation (Non-Medical): No Stress: No Stress Concern Present (12/14/2022) [employer] - Occupational Stress Questionnaire ??? Feeling of Stress : Not at all Housing Stability: Low Risk (12/14/2022) Housing Stability Vital Sign ??? Unable to Pay for Housing in the Last Year: No ??? Number of Places Lived in the Last Year: 1 ??? Unstable Housing in the Last Year: No Penicillins (Not in a hospital admission) No current facility-administered medications on file prior to encounter. Current Outpatient Medications on File Prior to Encounter Medication Sig Dispense Refill ??? amLODIPine (Norvasc) 5 MG tablet Take 1 (one) tablet by mouth once daily ??? aspirin (Aspirin 81) 81 MG chew tablet Take 1 (one) tablet by mouth 2 times daily (Patient not taking: Reported on 08/29/2023) 70 tablet 0 ??? azithromycin (Zithromax) 500 MG tablet Take 1 (one) tablet by mouth 1 Hour prior to Dental Appointment Reasons: Treatment to Prevent Infection in Prosthetic Arthroplasty 1 tablet PRN ??? azithromycin (Zithromax) 500 MG tablet Take 1 (one) tablet by mouth 1 Hour prior to Dental Appointment Reasons: Treatment to Prevent Infection in Prosthetic Arthroplasty 1 tablet PRN ??? Bacillus Coagulans-Inulin (Probiotic) 1-250 BILLION-MG CAPS ??? betamethasone dipropionate (Diprosone) 0.05 % ointment as needed ??? buPROPion XL 24hr (Wellbutrin-XL) 300 MG tablet ??? carvedilol (Coreg) 25 MG tablet Take 1 (one) tablet by mouth 2 times daily ??? cloNIDine (Catapres) 0.1 MG tablet Take 1 (one) tablet by mouth 2 times daily ??? clopidogrel (plaVIX) 75 MG tablet Take 1 (one) tablet by mouth once daily Start taking 12/19/22. ??? cyclobenzaprine (Flexeril) 10 MG tablet Take 1 (one) tablet by mouth 2 times daily ??? Docusate Sodium (DSS) 100 MG Take 100 mg by mouth 2 times daily ??? dulaglutide (Trulicity) 1.5 MG/0.5ML injection ??? ergocalciferol (Drisdol) 1.25 MG (77169 UT) capsule Take 1 (one) capsule by mouth ??? ferrous sulfate 325 (65 FE) MG tablet Take 1 (one) tablet by mouth once daily ??? losartan-hydroCHLOROthiazide (Hyzaar) 100-12.5 MG tablet Take 1 (one) tablet by mouth every morning ??? metFORMIN (Glucophage) 1000 MG tablet Take 1 (one) tablet by mouth 2 times daily ??? Multiple Vitamins-Minerals (One-A-Day Mens Health Formula) TABS ??? pantoprazole EC (Protonix) 40 MG tablet Take 1 (one) tablet by mouth once daily Reasons: Stomach Ulcer 30 tablet 2 ??? pregabalin (Lyrica) 50 MG capsule Take 1 (one) capsule by mouth 2 times daily 70 capsule 0 ??? rosuvastatin (Crestor) 20 MG tablet Take 2 (two) tablets by mouth every morning ??? sertraline (Zoloft) 50 MG tablet Take 1 (one) tablet by mouth once daily Review of Systems: A comprehensive review of systems was negative except as described in HPI. PHYSICAL EXAM Vitals: 09/24/23 1011 09/24/23 1419 09/24/23 1423 09/24/23 1424 BP: 141/89 111/95 Pulse: 90 81 Resp: 18 Temp: 99 ??F (37.2 ??C) SpO2: 100% 96% 95% 95% Physical Exam Vitals reviewed. Constitutional: Appearance: He is normal weight. HENT: Head: Normocephalic and atraumatic. Nose: Nose normal. Mouth/Throat: Mouth: Mucous membranes are moist. Pharynx: Oropharynx is clear. Eyes: Conjunctiva/sclera: Conjunctivae normal. Pupils: Pupils are equal, round, and reactive to light. Cardiovascular: Rate and Rhythm: Normal rate and regular rhythm. Pulses: Normal pulses. Heart sounds: Murmur heard. Pulmonary: Effort: Pulmonary effort is normal. Abdominal: General: Abdomen is flat. Bowel sounds are normal. Palpations: Abdomen is soft. Musculoskeletal: General: Normal range of motion. Cervical back: Normal range of motion. Comments: Right hip postsurgical incision is noted, no drainage noted Skin: General: Skin is warm and dry. Capillary Refill: Capillary refill takes less than 2 seconds. Neurological: General: No focal deficit present. Mental Status: He is alert and oriented to person, place, and time. Mental status is at baseline. Psychiatric: Mood and Affect: Mood normal. Lab Data Recent Labs Component Name 09/24/23 1058 12/16/22 0545 12/15/22 1948 12/15/22 0644 12/14/22 1933 12/09/22 0311 12/08/22 0835 WBC 11.8* 7.1 8.6 - 7.2 - 6.3 RBC 4.15* 2.67* 2.71* - 2.06* - 3.78* HGB 12.6* 8.2* 8.5* - 6.5* - 12.4 HCT 38.9 26.0* 25.4* - 19.9* - 36.2 MCV 93.7 97.4 93.7 - 96.6 - 95.8 MCHC 32.4 31.5 33.5 - 32.7 - 34.3 PLTCOUNT 194 246 251 - 211 - 130* NEUTPCT - 53.2 - - 51.3 - 58.6 LYMPHPCT - 26.1 - - 30.3 - 26.6 BASOPHILPCT - 0.4 - - 0.4 - 0.5 GRANSIMMPCT - 4.8* - - 4.1* - 0.6 NEUTABS 9.68* 3.76 - - 3.68 - 3.69 LYMPHABS 0.83* 1.85 - - 2.17 - 1.67 BASOABS - 0.03 - - 0.03 - 0.03 - = values in this interval not displayed. Recent Labs Component Name 09/24/23 1058 12/16/22 0545 SODIUM 137 139 POTASSIUM 4.2 3.9 CHLORIDE 105 108* CO2 23 23 BUN 14 11 CREATININE 0.90 0.81 GLUCOSE 178* 126* CALCIUM 9.4 9.1 ALBUMIN - 3.6 ALKPHOS - 66 ALT - 15 AST - 20 TBIL - 0.9 TPROT - 6.6 EGFR >90 >90 No results for input(s): CHOL , TRIG , HDL , LDLCALC in the last 93623 hours. No results for input(s): AMYLASE in the last 10703 hours. Recent Labs Component Name 12/08/22 1329 12/08/22 1232 MNO8ZRW 41.6 40.5 PO2ART 300* 297* R0JSPJPI 100 100 BEART -2 -2 No results for input(s): BNP in the last 83426 hours. No results for input(s): CDIFFTOXINAB in the last 79365 hours. No results for input(s): CK in the last 72957 hours. No results for input(s): CKMB in the last 63299 hours. No results for input(s): CKMBINTERP in the last 62342 hours. Recent Labs Component Name 12/14/223 07/14/14 1359 INR 1.1 1.2 Recent Labs Component Name 12/14/223 07/14/14 1359 PT 13.7 15.0* Recent Labs Component Name 07/14/14 1359 PTT 24.7 No results for input(s): TROPONIN in the last 34879 hours. No results for input(s): TSH in the last 72751 hours. No results for input(s): PHENYTOIN in the last 58478 hours. No results for input(s): DIGOXIN in the last 34510 hours. No results for input(s): MAGMGDL in the last 92529 hours. Recent Labs Component Name 11/27/22 0950 COLORUA Yellow SPECGRAVUA 1.019 PHUA 5.0 PROTEINUA Negative BLOODUA Negative LEUKOCYTEUA Negative NITRITEUA Negative GLUCOSEUA Negative KETONEUA Negative BILIRUBINUA Negative UROBILINUA Negative Recent Labs Component Name 12/14/22 1933 11/27/22 0950 07/15/14 0015 HGBA1C 6.0* 5.6 6.0 ASSESSMENT/PLAN Right hip pain: Orthopedic surgery consulted Plan for OR today NPO Pain management Holding anticoagulation at this time Hypertension CVA history: Continue statin Holding aspirin, Plavix Diabetes: Sliding scale insulin Diabetic diet Mood disorder: Continue Wellbutrin, Zoloft Hypertension: Continue Norvasc, Coreg GERD: Protonix Prophylaxis: SCDs cc [facility] Patient Diagnoses Present at the Time of Admission Obesity Discussed with Dr Jones Further recommendations pending the course of hospitalization for this patient. Please be advised that this note was created using voice recognition software and there is the potential for misinterpretation. Sarah Parsons APRN-JAVA MANAGER 09/24/2023 4:25 PM EW COORDINATOR documented in this encounter Consult Notes * Angelika Ponce RN - 10/03/2023 3:21 PM CST PICC tip confirmed using 3[employer] Technology; PICC is good to use. PICC Placement at Bedside Type of line placed: Single Lumen Power PICC Indications for procedure: Outpatient IV Therapy The risks and benefits of PICC placement were explained to Patient. The risks include discussed include pain, inadvertent arterial puncture, infection, blood clots, phlebitis, and cardiac arrhythmias. They were able to consent to the PICC insertion. Timeout and hand hygiene completed prior to procedure. Traffic was limited in the room during the procedure. Skin prepped with appropriate antibacterial solution prior to skin puncture. Maximum sterile barrier precautions were used including sterilegown and gloves, hat, mask, eye protection and a large sterile drape. The patient was given local anesthesia with 5 milliliters of 1% Lidocaine without epinephrine. The single lumen PICC was placed using the Seldinger technique with a Right Basilic approach without complication. Ultrasound guidance was used to locate vessel. There was dark, non-pulsatile blood returnin all ports and they were easily flushed with saline. PICC tip position was verified by ultrasoundECG device. This showed PICC tip in good position in the distal SVC. Reposition of the PICC was notindicated. Sterile dressing was applied to the insertion site. The patient tolerated the procedure well. Patient Guide Booklet and Fact Sheet for preventing infection given to patient. Reviewed with: patient. Complications: None Angelika Ponce RN 10/03/2023 3:22 PM EW COORDINATOR * Sophia Hagan LPN - 10/03/2023 9:51 AM CST Referral not opened, as this patient lives out of [facility] [place]'s service area. Sophia Hagan LPN Referral Liaison [facility]. [phone] EW COORDINATOR * Leelee Sapp MSW - 10/03/2023 9:20 AM CSTAssociated Order(s): IP CONSULT TO LEAF [employer] PICKER SW acknowledges referral. There are no SW needs determined at this time and will sign off. Please re-consult when needs are identified. DEEPALI Moreira 10/03/2023 9:22 AM [phone] EW COORDINATOR * Ashish Barnett MD - 09/25/2023 10:12 AM CSTAssociated Order(s): IP CONSULT TO INFECTIOUS DISEASES Infectious Diseases Consult Note Patient's Primary Care Physician: Faisal Richardson DO Reason for Consultation: Rt prosthetic hip joint infection Referring Physcian: Bryant Jones MD Name: Taylor Rutledge Age: [age] year old 0 Chief Complaint/History of Present Illness HPI: Taylor Rutledge is a 58 year old White/Caucasianmale admitted 09/24 for evaluation of right hip pain. Hx of right hip arthroplasty in 06/2022 at [facility] in [place], [place]. Due to infectionhe is s/p removal or arthroplasty in 08/30/22 at [facility]; received IV antibiotics x 6 weeks via PICC line - he does not recall name of abx or organism/infection treated. Underwent revision right total hip arthroplasty, fixation of proximal femoral periprosthetic fracture in 12/08/22 with . Has hx of coronary artery disease, dm, hypertension, hyperlipidemia. Saw Dr. Lafleur in office on 09/11/23 with ongoing right hip /groin pain. Has received injection into the right iliopsoas tendon in 08/29/23 which did not help. As inflammatory markers were normal, plan at this visit was continued PT. However, he presented to the ER on 09/24 with worsening symptoms. On presentation low grade temp to 99, wbc 11.8. CRP 5.64 (0.33 in 03/2023). XRAY right hip shows hip prosthesis in normal alig nment without fracture or dislocation, no bone destruction. CT right hip shows fluid or soft tissuethickening lateral to the right greater trochanter without rim-enhancing fluid collection. Underwent hip arthrocentesis with 98k TNC 81% neutrophils. Cultures pending. Taken to OR on 09/24 for I&Dof right hip, cultures pending; wvac application. ID consulted. Objective: Review of Systems General: no fatigue/fever/chills Skin: no rashes/lesions Eyes: no vision problems/no conjunctival lesions HENT: no oral lesion/no hearing problems Respiratory: no cough/sob Cardiovascular: no cp/palpitations Gastrointestinal: no nausea/diarrhea Genitourinary: no dysuria/hematuria Musculoskeletal: no joint pain/no muscle pain; rt groin pain Neurological: no hope/seizures Psych: no depression/anxiety Past Medical History: Diagnosis Date ??? Aortic stenosis mod-sev on 2022 echo ??? CAD (coronary artery disease) ??? High blood pressure ??? LVH (left ventricular hypertrophy) ??? Mixed hyperlipidemia ??? Restless leg syndrome ??? Sleep apnea uses cpap ??? Stroke ([facility] 2021 balance residual ??? Type 2 [place] without complications [place] Past Surgical History: Procedure Laterality Date ??? Appendectomy ??? Cardiac Catherization 2018 no intervetion ??? COLONOSCOPY ??? EGD ??? ENDOSCOPY, UPPER N/A 12/15/2022 N/A; ESOPHAGOGASTRODUODENOSCOPY (EGD) DIAGNOSTIC ??? ENDOSCOPY, UPPER 12/15/2022 ESOPHAGOGASTRODUODENOSCOPY (EGD) BIOPSY ??? GENERAL SURGERY PROCEDURE Right 12/08/2022 Right; PREVENA/ WOUND VAC APPLICATION RIGHT HIP ??? HIP ARTHROPLASTY, REVISION Right 12/08/2022 Right; REVISION RIGHT TOTAL HIP ARTHROPLASTY BOTH COMPONENTS, REMOVAL OF ANTIBIOTIC SPCER RIGHT HIP ??? HIP ARTHROPLASTY, TOTAL Right ??? OTHER SURGERY Right 08/30/2022 removed hip and placed antibiotic spacer ??? Rotator Cuff Repair Right ??? SHOULDER ARTHROPLASTY, TOTAL Left Social History Tobacco Use ??? Smoking status: Never ??? Smokeless tobacco: Never Vaping Use ??? Vaping Use: Never used Substance Use Topics ??? Alcohol use: Not Currently ??? Drug use: No Family History Problem Relation Name Age of Onset ??? Diabetes Mother Status: Alive ??? Hypertension Mother ??? Cancer Father rectal; Status: Allergies Allergen Reactions ??? Penicillins Angioedema Exam Vitals: 09/24/23 2301 09/25/23 0059 09/25/23 0445 09/25/23 0749 BP: 122/72 123/65 108/63 125/53 Pulse: 75 78 76 73 Resp: 16 18 18 18 Temp: 98.2 ??F (36.8 ??C) 97.6 ??F (36.4 ??C) 98.3 ??F (36.8 ??C) SpO2: 93% 94% 95% 99% Weight: Height: Temp (30hrs) Max:99.1 ??F (37.3 ??C) General appearance: cooperative, no distress, appears stated age, alert HEENT: ncat, vision intact Lungs: clear to auscultation bilaterally Heart: regular rate and rhythm, S1, S2 normal, no murmur, Abdomen: soft, non-tender; bowel sounds normal Extremities: extremities normal, atraumatic, no cyanosis or edema Rt hip wound vac in place Skin: no rash/lesion Lines: MEDICATIONS FOR CURRENT ENCOUNTER: ?? SCHEDULED MEDICATIONS: ?? Followed by ?? *Hold/Avoid Medication, Other, 799 and 1999 ?? 0.9% NaCl injection 3 mL, Intracatheter, q8h ?? amLODIPine (Norvasc) tablet 10 mg, Oral, QDAY ?? carvedilol (Coreg) tablet 25 mg, Oral, BID ?? ceFAZolin (Ancef) 2 g in 0.9% NaCl IV 50 mL IVPB, Intravenous, q8h ?? cyclobenzaprine (Flexeril) tablet 10 mg, Oral, BID ?? docusate sodium (Colace) capsule 100 mg, Oral, BID ?? enoxaparin (Lovenox) injection 40 mg, Subcutaneous, QDAY ?? ferrous sulfate tablet 325 mg, Oral, QDAY ?? insulin aspart (NovoLOG) pen 0-4 Units, Subcutaneous, AT BEDTIME ?? insulin aspart (NovoLOG) pen 0-6 Units, Subcutaneous, TID WC ?? iopamidol (Isovue 370) 76 % contrast, Intravenous, Contrast - Once ?? pantoprazole EC (Protonix) tablet 40 mg, Oral, QDAY ?? pregabalin (Lyrica) capsule 50 mg, Oral, BID ?? rosuvastatin (Crestor) tablet 40 mg, Oral, QAM ?? sertraline (Zoloft) tablet 200 mg, Oral, QDAY ?? vancomycin (Vancocin) 1,500 mg in 530 mL IVPB, Intravenous, q12h ?? [COMPLETED] HYDROmorphone (Dilaudid) injection 0.5 mg, Intravenous, Now ?? [COMPLETED] morphine injection 4 mg, Intravenous, Now ?? [COMPLETED] ondansetron (Zofran) injection 4 mg, Intravenous, Once ?? [COMPLETED] vancomycin (Vancocin) 1,500 mg in 530 mL IVPB, Intravenous, Once ?? [START ON 09/26/2023] vancomycin (Vancocin) IV dose per pharmacy, Does not apply, q12h Data Recent Labs Component Name 09/25/23 0141 09/24/23 1058 12/16/22 0545 WBC 9.9 11.8* 7.1 HGB 10.8* 12.6* 8.2* HCT 33.6* 38.9 26.0* PLTCOUNT 165 194 246 Recent Labs Component Name 09/25/23 0141 09/24/23 1058 12/16/22 0545 SODIUM 138 137 139 POTASSIUM 4.0 4.2 3.9 CHLORIDE 106 105 108* CO2 22 23 23 BUN 14 14 11 CREATININE 0.88 0.90 0.81 GLUCOSE 182* 178* 126* CALCIUM 8.6 9.4 9.1 Recent Labs Component Name 12/16/22 0545 12/15/22 0644 12/14/22193211/27/22 0950 ALBUMIN 3.6 3.5 3.3* 4.4 ALKPHOS 66 - 63 73 ALT 15 - 18 24 AST 20 - 22 20 TBIL 0.9 - 1.2 0.9 TPROT 6.6 - 6.2* 7.4 No results for input(s): CDIFFTOXINAB in the last 41404 hours. Recent Labs Component Name 09/24/23 1058 SEDRATE 50* Recent Labs Component Name 09/24/23 1058 04/04/23 0950 CRP 5.64* 0.33 No results for input(s): CK in the last 83281 hours. .No results for input(s): VANCOTROUGH , VANCOPEAK , VANCSERIES in the last 05992 hours. Invalid input(s): VANCORAND Recent Labs Component Name 09/25/23 01412/14/22193211/27/22 0950 HGBA1C 6.4* 6.0* 5.6 Recent Labs Component Name 11/27/22 0950 COLORUA Yellow CLARITYUA Clear SPECGRAVUA 1.019 PHUA 5.0 PROTEINUA Negative BLOODUA Negative LEUKOCYTEUA Negative NITRITEUA Negative GLUCOSEUA Negative KETONEUA Negative BILIRUBINUA Negative UROBILINUA Negative Microbiology 09/24 Rt hip aspiration cultures pending 09/24 Rt hip OR/I&D cultures pending Radiology Assessment *Right prosthetic hip / hardware infection -06/2022: s/p hip arthroplasty for arthritis ([place], [place]) -08/30/22: s/p hardware removal due to infection, IV abx x 6wks ([place], [place]) -12/08/22: s/p revision arthroplasty, fixation of proximal femoral periprosthetic fracture, Dr. Lafleur -chronic/ongoing rt hip/thigh/groin pain since -no response to iliopsoas tendon injection 08/29/23 -presented to ER 09/24 with progressive sx, CRP 5.64, WBC 11.3 -09/24: arthrocentesis: 98k TNC, 81% neutrophils, cx pending -09/24: s/p rt hip arthrotomy with I&D, placement of abx cement beads, removal of hardware/cerclage cable, wound vac application; cx pending *gastric ulcers / gastritis sp EGD 12/15/22 *coronary artery disease *hyperlipidemia *diabetes Estimated Creatinine Clearance: 123.2 mL/min (by C-G formula based on SCr of 0.88 mg/dL). Plan -continue vancomycin -add cefepime 2 gm q 8 hours -follow OR I&D cultures 09/24 -follow arthrocentesis cultures, 09/24 -check blood cultures -monitor labs -wound vac management per ortho -plan per ortho is OR for I&D and wound closure vs wvac exchange 09/27/23 Dispo: -anticipate prolonged IV antibiotic course x 6 weeks / PICC line eventually once bcx neg x 48h / [facility] via [facility] [place] -anticipate likely chronic suppression with po antibiotic upon completion of 6 weeks IV (given retention of some hardware) -pending finalized OR cultures / work up as above Discussed with patient, care team Ashish Barnett MD EW COORDINATOR * Torrey Lafleur MD - 09/24/2023 2:45 PM CST Orthopaedic Surgery Consult Note Taylor Rutledge 1965 [phone] Date of service: 09/24/2023 Chief Complaint: Chief Complaint Patient presents with ??? Injury Leg Right leg pain. Hx of hip and knee surgery Subjective: Taylor Rutledge is a 58 year old male who presents to [facility] ED with complaints of acute on chronic right hip and thigh pain. The patient has a history of right ALIREZA PJI that has two stage revision with reimplantation on 12/06/22. The patient continued to have right thigh and groin pain, but had a severe increase last night that was so bad that he was unable to ambulate on the affected extremity. The patient reports that the pain is only in his groin and thigh with no radiation of pain down the leg. He has not had any recent systemic illnesses such as respiratory illness or other abscesses. He denies any numbness or tingling, and has no other complaints at this time. Past Medical History: Diagnosis Date ??? Aortic stenosis mod-sev on 2022 echo ??? CAD (coronary artery disease) ??? High blood pressure ??? LVH (left ventricular hypertrophy) ??? Mixed hyperlipidemia ??? Restless leg syndrome ??? Sleep apnea uses cpap ??? Stroke ([facility] 2021 balance residual ??? Type 2 [place] without complications [place] Past Surgical History: Procedure Laterality Date ??? Appendectomy ??? Cardiac Catherization 2018 no intervetion ??? COLONOSCOPY ??? EGD ??? ENDOSCOPY, UPPER N/A 12/15/2022 N/A; ESOPHAGOGASTRODUODENOSCOPY (EGD) DIAGNOSTIC ??? ENDOSCOPY, UPPER 12/15/2022 ESOPHAGOGASTRODUODENOSCOPY (EGD) BIOPSY ??? GENERAL SURGERY PROCEDURE Right 12/08/2022 Right; PREVENA/ WOUND VAC APPLICATION RIGHT HIP ??? HIP ARTHROPLASTY, REVISION Right 12/08/2022 Right; REVISION RIGHT TOTAL HIP ARTHROPLASTY BOTH COMPONENTS, REMOVAL OF ANTIBIOTIC SPCER RIGHT HIP ??? HIP ARTHROPLASTY, TOTAL Right ??? OTHER SURGERY Right 08/30/2022 removed hip and placed antibiotic spacer ??? Rotator Cuff Repair Right ??? SHOULDER ARTHROPLASTY, TOTAL Left Current Facility-Administered Medications Medication ??? *Hold/Avoid Medication ??? iopamidol (Isovue 370) 76 % contrast Current Outpatient Medications Medication ??? amLODIPine (Norvasc) 5 MG tablet ??? aspirin (Aspirin 81) 81 MG chew tablet ??? azithromycin (Zithromax) 500 MG tablet ??? azithromycin (Zithromax) 500 MG tablet ??? Bacillus Coagulans-Inulin (Probiotic) 1-250 BILLION-MG CAPS ??? betamethasone dipropionate (Diprosone) 0.05 % ointment ??? buPROPion XL 24hr (Wellbutrin-XL) 300 MG tablet ??? carvedilol (Coreg) 25 MG tablet ??? cloNIDine (Catapres) 0.1 MG tablet ??? clopidogrel (plaVIX) 75 MG tablet ??? cyclobenzaprine (Flexeril) 10 MG tablet ??? Docusate Sodium (DSS) 100 MG ??? dulaglutide (Trulicity) 1.5 MG/0.5ML injection ??? ergocalciferol (Drisdol) 1.25 MG (85939 UT) capsule ??? ferrous sulfate 325 (65 FE) MG tablet ??? losartan-hydroCHLOROthiazide (Hyzaar) 100-12.5 MG tablet ??? metFORMIN (Glucophage) 1000 MG tablet ??? Multiple Vitamins-Minerals (One-A-Day Mens Health Formula) TABS ??? pantoprazole EC (Protonix) 40 MG tablet ??? pregabalin (Lyrica) 50 MG capsule ??? rosuvastatin (Crestor) 20 MG tablet ??? sertraline (Zoloft) 50 MG tablet Allergies as of 09/24/2023 - Reviewed 09/24/2023 Allergen Reaction Noted ??? Penicillins Angioedema 07/14/2014 Family History Problem Relation Name Age of Onset ??? Diabetes Mother Status: Alive ??? Hypertension Mother ??? Cancer Father rectal; Status: Social History Tobacco Use ??? Smoking status: Never ??? Smokeless tobacco: Never Substance Use Topics ??? Alcohol use: Not Currently Review of Systems: History obtained from chart review and the patient. A 12 point review of systems was performed and negative except per HPI. Physical Exam: BP 111/95 Pulse 81 Temp 99 ??F (37.2 ??C) (Oral) Resp 18 SpO2 95% General exam: patient cooperative with exam Constitutional: well developed, well nourished, no acute distress Head: normocephalic, atraumatic ENT: moist oral mucosa Eyes: non-icteric sclera Cardiovascular: regular rate Respiratory: effort normal, no respiratory distress Neurological: awake, AOx4 Psychiatric: no distress, mood and affect normal, behavior normal, judgment and thought content normal. Extremities: right Lower Extremity: Exam shows prior incision that is well healed with psoriasis plaques on top of the wound. Motor was intact EHL/FHL/GS/AT/quad/hamstring/Hip flexion/extension. Severe pain with log rolling and passive ROM of the hip. Sensation to light touch was intact and symmetric to contralateral side over all toes distally. Digits were warm and well perfused. Radiology: XR of pelvis and right femur: demonstrates prior total hip arthroplasty with no fracture or other pathology noted CT scan pelvis and femur of the right leg: pending Labs: Results for orders placed or performed during the hospital encounter of 09/24/23 (from the past 24 hour(s)) CBC W AUTO DIFFERENTIAL Result Value Ref Range WBC 11.8 (H) 4.0 - 10.7 x10E9/L RBC Count 4.15 (L) 4.30 - 5.80 x10E12/L Hemoglobin 12.6 (L) 13.3 - 17.5 g/dL Hematocrit 38.9 38.7 - 51.1 % MCV 93.7 80.0 - 98.0 fL MCH 30.4 26.7 - 33.6 pg MCHC 32.4 31.7 - 36.3 g/dL RDW-CV 13.2 11.3 - 14.8 % Platelet Count 194 150 - 420 x10E9/L MPV 9.1 7.8 - 11.4 fL BASIC METABOLIC PANEL (CALCIUM TOTAL) Result Value Ref Range Glucose 178 (H) 70 - 105 mg/dL Sodium 137 136 - 145 mmol/L Potassium 4.2 3.5 - 5.1 mmol/L Chloride 105 98 - 107 mmol/L CO2 23 22 - 29 mmol/L Calcium 9.4 8.4 - 10.4 mg/dL Anion Gap 9 6 - 16 mmol/L BUN 14 7 - 26 mg/dL Creatinine 0.90 0.72 - 1.25 mg/dL eGFR by CKD-EPI >90 >=90 mL/min/1.73 m2 DIFFERENTIAL MANUAL Result Value Ref Range Neutrophil % 82 (H) 41 - 74 % Lymphocyte % 7 (L) 17 - 47 % Monocyte % 11 3 - 11 % Neutrophil Absolute 9.68 (H) 1.60 - 7.50 x10E9/L Lymphocyte Absolute 0.83 (L) 1.00 - 4.40 x10E9/L Monocyte Absolute 1.30 (H) 0.15 - 1.00 x10E9/L RBC Morphology NORMAL ERYTHROCYTE SEDIMENTATION RATE Result Value Ref Range Erythrocyte Sedimentation Rate Automated 50 (H) 0 - 20 MM/HR C-REACTIVE PROTEIN Result Value Ref Range C-Reactive Protein 5.64 (H) <=0.50 mg/dL Assessment: Taylor Rutledge is a 58 year old male with 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 Plan: -- admission to medicine recommended -- Keep patient NPO -- Plan for OR this evening for right hip aspiration with possible irrigation and debridement of the right hip -- Hold all antibiotics until aspiration is complete -- WBAT of the RLE -- Ortho will follow. Please page with any further questions. Brigido Lundberg MD 09/24/2023 2:49 PM Patient seen and examined with resident. I confirm history, exam, assessment and plan. In addition I note: Increasing pain right hip since last night with subjective chills but denies any recorded fevers. He is afebrile in the emergency department. 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 He has had persistent thigh pain postoperatively and previous inflammatory markers were not concerning for infection in March 2023 3 months after surgery. He had no wound healing issues. He does have psoriasis. He states that last night he had pain to the point where he was unable to bear weight. He did eat prior to coming to the hospital. No current facility-administered medications on file prior to encounter. Current Outpatient Medications on File Prior to Encounter Medication Sig Dispense Refill ??? amLODIPine (Norvasc) 5 MG tablet Take 1 (one) tablet by mouth once daily ??? aspirin (Aspirin 81) 81 MG chew tablet Take 1 (one) tablet by mouth 2 times daily (Patient not taking: Reported on 08/29/2023) 70 tablet 0 ??? azithromycin (Zithromax) 500 MG tablet Take 1 (one) tablet by mouth 1 Hour prior to Dental Appointment Reasons: Treatment to Prevent Infection in Prosthetic Arthroplasty 1 tablet PRN ??? azithromycin (Zithromax) 500 MG tablet Take 1 (one) tablet by mouth 1 Hour prior to Dental Appointment Reasons: Treatment to Prevent Infection in Prosthetic Arthroplasty 1 tablet PRN ??? Bacillus Coagulans-Inulin (Probiotic) 1-250 BILLION-MG CAPS ??? betamethasone dipropionate (Diprosone) 0.05 % ointment as needed ??? buPROPion XL 24hr (Wellbutrin-XL) 300 MG tablet ??? carvedilol (Coreg) 25 MG tablet Take 1 (one) tablet by mouth 2 times daily ??? cloNIDine (Catapres) 0.1 MG tablet Take 1 (one) tablet by mouth 2 times daily ??? clopidogrel (plaVIX) 75 MG tablet Take 1 (one) tablet by mouth once daily Start taking 12/19/22. ??? cyclobenzaprine (Flexeril) 10 MG tablet Take 1 (one) tablet by mouth 2 times daily ??? Docusate Sodium (DSS) 100 MG Take 100 mg by mouth 2 times daily ??? dulaglutide (Trulicity) 1.5 MG/0.5ML injection ??? ergocalciferol (Drisdol) 1.25 MG (44187 UT) capsule Take 1 (one) capsule by mouth ??? ferrous sulfate 325 (65 FE) MG tablet Take 1 (one) tablet by mouth once daily ??? losartan-hydroCHLOROthiazide (Hyzaar) 100-12.5 MG tablet Take 1 (one) tablet by mouth every morning ??? metFORMIN (Glucophage) 1000 MG tablet Take 1 (one) tablet by mouth 2 times daily ??? Multiple Vitamins-Minerals (One-A-Day Mens Health Formula) TABS ??? pantoprazole EC (Protonix) 40 MG tablet Take 1 (one) tablet by mouth once daily Reasons: Stomach Ulcer 30 tablet 2 ??? pregabalin (Lyrica) 50 MG capsule Take 1 (one) capsule by mouth 2 times daily 70 capsule 0 ??? rosuvastatin (Crestor) 20 MG tablet Take 2 (two) tablets by mouth every morning ??? sertraline (Zoloft) 50 MG tablet Take 1 (one) tablet by mouth once daily Past Medical History: Diagnosis Date ??? Aortic stenosis mod-sev on 2022 echo ??? CAD (coronary artery disease) ??? High blood pressure ??? LVH (left ventricular hypertrophy) ??? Mixed hyperlipidemia ??? Restless leg syndrome ??? Sleep apnea uses cpap ??? Stroke ([facility]) 2021 balance residual ??? Type 2 diabetes mellitus without complications ([facility]) Past Surgical History: Procedure Laterality Date ??? Appendectomy ??? Cardiac Catherization 2018 no intervetion ??? COLONOSCOPY ??? EGD ??? ENDOSCOPY, UPPER N/A 12/15/2022 N/A; ESOPHAGOGASTRODUODENOSCOPY (EGD) DIAGNOSTIC ??? ENDOSCOPY, UPPER 12/15/2022 ESOPHAGOGASTRODUODENOSCOPY (EGD) BIOPSY ??? GENERAL SURGERY PROCEDURE Right 12/08/2022 Right; PREVENA/ WOUND VAC APPLICATION RIGHT HIP ??? HIP ARTHROPLASTY, REVISION Right 12/08/2022 Right; REVISION RIGHT TOTAL HIP ARTHROPLASTY BOTH COMPONENTS, REMOVAL OF ANTIBIOTIC SPCER RIGHT HIP ??? HIP ARTHROPLASTY, TOTAL Right ??? OTHER SURGERY Right 08/30/2022 removed hip and placed antibiotic spacer ??? Rotator Cuff Repair Right ??? SHOULDER ARTHROPLASTY, TOTAL Left Social History Occupational History ??? Not on file Tobacco Use ??? Smoking status: Never ??? Smokeless tobacco: Never Vaping Use ??? Vaping Use: Never used Substance and Sexual Activity ??? Alcohol use: Not Currently ??? Drug use: No ??? Sexual activity: Yes Partners: Female Family History Problem Relation Name Age of Onset ??? Diabetes Mother Status: Alive ??? Hypertension Mother ??? Cancer Father rectal; Status: Review of Systems Constitutional: Negative for chills, fever, malaise/fatigue and weight loss. Respiratory: Negative for shortness of breath. Cardiovascular: Negative for claudication and leg swelling. Musculoskeletal: Positive for joint pain. Negative for falls. Skin: Negative for itching and rash. Neurological: Negative for focal weakness. All other organ systems reviewed and are negative. Physical exam: Patient is awake and alert BMI is mildly elevated Facial expressions are appropriate Patient is cooperative the examination Examination of the right hip reveals pain with any range of motion. He cannot perform straight leg raise test due to pain. Wound does have psoriatic plaques around it but is otherwise healed without signs of infection. He has a couple of excoriations anteriorly. He has mild swelling of his thigh. Distally he can dorsiflex and plantarflex his ankle and toes without difficulty. Dorsalis pedis is palpable. He has minimal pain with loading of the hip. 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 We discussed that he is only had increased symptoms for about aday so hopefully this represents acute infection since he had normal inflammatory markers in March2023. We discussed risk of infection as well as hip instability with repeat irrigation and debridement. We discussed surgery tonight and then possibly in a few days for repeat irrigation and debridement with revision of modular components based on intraoperative findings and cultures. We discussed difficulty with removal of his revision implants. Patient understood the treatment plan and all questions were answered. Will proceed this evening with aspiration under anesthesia and fluoroscopy withpossible irrigation and debridement of his right hip, possible antibiotic bead placement, possible w ound VAC application, possible removal of implants with placement of antibiotic cement spacer. Paincontrol. DVT prophylaxis. Nonweightbearing right lower extremity. Please hold antibiotics. Patient seen and examined, agree with above resident note. Site marked This patient? s prior H&P was reviewed, the patient was examined and no change has occurred in the patient's condition since the prior H&P was completed. Briefly, this is a 58 year old male with right hip pain secondary to suspected recurrent infection after revision right hip arthroplasty for previous infection from an outside facility with increasing pain for 1 day. Exam reveals right hip limitation of and pain with ROM. Complete examination/plan noted above. I personally examined the patient and edited and agree with the above findings in the note Assessment/Plan: Conservative treatment for suspected right hip infection after previous revision for infected hip arthroplasty from an outside facility including >12 weeks of PT, NSAIDS, glucosamine/Vit D, ambulatory aids, and weight loss will fail and risk systemic sepsis. Further conservativetreatment which has been unsuccessful is contraindicated as it would lead to further debility and worsening deconditioning. Symptoms of pain, difficulty ambulating, increased risk of falling due to poor range of motion and instability/locking/and catching, difficulty standing, difficulty with stair climbing and difficulty with personal hygiene are interfering with patient's activities of daily living. We will proceed with the above-named procedures, aspiration of the right hip under fluoroscopyand anesthesia with possible irrigation and debridement of his right hip and possible antibiotic bead placement with possible removal of implants and placement of antibiotic cement spacer and possible wound VAC application Risks, benefits, and alternatives to the surgical procedure were discussed with the patient and present family members. Risks discussed among others but not limited to were: Infection and persistent infection as he had a previous revision for infection, bleeding/blood transfusion, neurovascular damage, prosthetic joint instability, limb length discrepancy, periprosthetic fracture, failure to improve symptoms, venous thrombosis/pulmonary embolism, and anesthesia complications including myocardial infarction, stroke, or even . We also discussed the procedure at length and answered any of the patient's questions. We also discussed the importance of early motion and early active ankle pumps for DVT/PE prevention and demonstrated this to the patient and had active participation as well. Patient understood the treatment plan and all questions were answered. In addition to the standard procedural informed consent, the specific risks related to COVID-19 were also discussed, including the possibility of an infection being present with a negative test, the risk of cristin COVID-19, and the known implications of this infection. See consent form. The patient is admitted with a diagnosis or diagnoses of suspected periprosthetic infection right hip after previous revision for infection from an outside facility and current medical/postoperative needs are included below. The patient has the following complex medical factors: No current facility-administered medications on file prior to encounter. Current Outpatient Medications on File Prior to Encounter Medication Sig Dispense Refill ??? amLODIPine (Norvasc) 5 MG tablet Take 1 (one) tablet by mouth once daily ??? aspirin (Aspirin 81) 81 MG chew tablet Take 1 (one) tablet by mouth 2 times daily (Patient not taking: Reported on 08/29/2023) 70 tablet 0 ??? azithromycin (Zithromax) 500 MG tablet Take 1 (one) tablet by mouth 1 Hour prior to Dental Appointment Reasons: Treatment to Prevent Infection in Prosthetic Arthroplasty 1 tablet PRN ??? azithromycin (Zithromax) 500 MG tablet Take 1 (one) tablet by mouth 1 Hour prior to Dental Appointment Reasons: Treatment to Prevent Infection in Prosthetic Arthroplasty 1 tablet PRN ??? Bacillus Coagulans-Inulin (Probiotic) 1-250 BILLION-MG CAPS ??? betamethasone dipropionate (Diprosone) 0.05 % ointment as needed ??? buPROPion XL 24hr (Wellbutrin-XL) 300 MG tablet ??? carvedilol (Coreg) 25 MG tablet Take 1 (one) tablet by mouth 2 times daily ??? cloNIDine (Catapres) 0.1 MG tablet Take 1 (one) tablet by mouth 2 times daily ??? clopidogrel (plaVIX) 75 MG tablet Take 1 (one) tablet by mouth once daily Start taking 12/19/22. ??? cyclobenzaprine (Flexeril) 10 MG tablet Take 1 (one) tablet by mouth 2 times daily ??? Docusate Sodium (DSS) 100 MG Take 100 mg by mouth 2 times daily ??? dulaglutide (Trulicity) 1.5 MG/0.5ML injection ??? ergocalciferol (Drisdol) 1.25 MG (57459 UT) capsule Take 1 (one) capsule by mouth ??? ferrous sulfate 325 (65 FE) MG tablet Take 1 (one) tablet by mouth once daily ??? losartan-hydroCHLOROthiazide (Hyzaar) 100-12.5 MG tablet Take 1 (one) tablet by mouth every morning ??? metFORMIN (Glucophage) 1000 MG tablet Take 1 (one) tablet by mouth 2 times daily ??? Multiple Vitamins-Minerals (One-A-Day Mens Health Formula) TABS ??? pantoprazole EC (Protonix) 40 MG tablet Take 1 (one) tablet by mouth once daily Reasons: Stomach Ulcer 30 tablet 2 ??? pregabalin (Lyrica) 50 MG capsule Take 1 (one) capsule by mouth 2 times daily 70 capsule 0 ??? rosuvastatin (Crestor) 20 MG tablet Take 2 (two) tablets by mouth every morning ??? sertraline (Zoloft) 50 MG tablet Take 1 (one) tablet by mouth once daily Past Medical History: Diagnosis Date ??? Aortic stenosis mod-sev on 2022 echo ??? CAD (coronary artery disease) ??? High blood pressure ??? LVH (left ventricular hypertrophy) ??? Mixed hyperlipidemia ??? Restless leg syndrome ??? Sleep apnea uses cpap ??? Stroke ([facility]) 2021 balance residual ??? Type 2 diabetes mellitus without complications ([facility]) Past Surgical History: Procedure Laterality Date ??? Appendectomy ??? Cardiac Catherization 2018 no intervetion ??? COLONOSCOPY ??? EGD ??? ENDOSCOPY, UPPER N/A 12/15/2022 N/A; ESOPHAGOGASTRODUODENOSCOPY (EGD) DIAGNOSTIC ??? ENDOSCOPY, UPPER 12/15/2022 ESOPHAGOGASTRODUODENOSCOPY (EGD) BIOPSY ??? GENERAL SURGERY PROCEDURE Right 12/08/2022 Right; PREVENA/ WOUND VAC APPLICATION RIGHT HIP ??? HIP ARTHROPLASTY, REVISION Right 12/08/2022 Right; REVISION RIGHT TOTAL HIP ARTHROPLASTY BOTH COMPONENTS, REMOVAL OF ANTIBIOTIC SPCER RIGHT HIP ??? HIP ARTHROPLASTY, TOTAL Right ??? OTHER SURGERY Right 08/30/2022 removed hip and placed antibiotic spacer ??? Rotator Cuff Repair Right ??? SHOULDER ARTHROPLASTY, TOTAL Left Social History Occupational History ??? Not on file Tobacco Use ??? Smoking status: Never ??? Smokeless tobacco: Never Vaping Use ??? Vaping Use: Never used Substance and Sexual Activity ??? Alcohol use: Not Currently ??? Drug use: No ??? Sexual activity: Yes Partners: Female Family History Problem Relation Name Age of Onset ??? Diabetes Mother Status: Alive ??? Hypertension Mother ??? Cancer Father rectal; Status: This dictation was performed with the use of [place] voice recognition and errors with transcriptionmay occur. Please see resident's note for further details. Torrey Lafleur MD EW COORDINATOR documented in this encounter OR Notes * Brief Op Note - Jose Villa MD - 10/02/2023 4:17 PM CST Brief Op Note Procedure: IRRIGATION AND DEBRIDEMENT HIP -- RIGHT HIP, DELAYED PRIMARY CLOSURE OF COMPLEX WOUND, REMOVAL OF ANTIBIOTIC BEADS, REVISION OF BOTH HIP COMPONENTS -- RIGHT HIP, WOUND VAC APPLICATION Patient Name: Taylor Rutledge Date of Service: 10/02/2023 Pre-Op Diagnosis: right hip prosthetic joint infection Post-Op Diagnosis: same Surgeon(s) and Role: * Torrey Lafleur MD - Primary Religion Professor(s): Jose Villa MD - resident Anesthesia Type: general ETT Complications: none Findings: abundant scar tissue, improved skin wounds, healthy appearing right hip wound without signs of purulence or infection. Revision right hip components stable through ROM EBL: 300 mL Urine Output : see anesthesia IV Fluid Intake: see anesthesia Drains: Negative Pressure Wound Therapy Right Hip (Active) Negative Pressure Dressing Status Seal Maintained 10/02/23 0807 Setting Continuous;125 mmHg Suction 10/02/23 0807 Dressing (@ Dressing change ONLY) 1 black foam 10/01/23 0053 Wound Vac Output (ml) 450 ml 09/29/23 2125 Negative Pressure Wound Therapy Right Hip (Active) Additional Treatment PREVENA WOUND VAC 10/02/23 1536 Specimen(s): * No specimens in log * Implant(s): Implant Name Type Inv. Item Serial No. Maintenance Of Way Foreman Lot No. LRB No. 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 PROCEDURE: 1. Repeat irrigation and debridement of infected right total hip arthroplasty ?? 2. Removal of antibiotic beads, right hip ?? 3. Revision right total hip arthroplasty - acetabular polyethylene liner and femoral head 4. Delayed primary closure complex surgical wound right hip. 5. Wound VAC application right hip/Prevena suture line wound VAC for wound at risk FALAFEL CART COOK(S): Jose Villa MD ANESTHESIA: GET INDICATIONS FOR PROCEDURE: Patient is a 58 year old who presented to the emergency department for severe right hip pain and an aspiration revealed almost 100,000 white blood cells and he has grown group B strep from his previous irrigation and debridement and now returns for the above-named procedures. We discussed implant retention since he has already failed a 2 stage reconstruction. Risks, benefits, and alternatives to the surgical procedure were discussed with the patient and present familymembers. Risks discussed among others were: Infection and persistent infection requiring antibioticsuppression in the future, bleeding/blood transfusion, neurovascular damage, prosthetic joint instability, failure to improve symptoms, venous thrombosis/pulmonary embolism, and anesthesia complications including . We also discussed the procedure at length and answered any of the patient's questions. We also discussed the importance of early motion and early active ankle pumps for DVT/PE prevention and demonstrated this to the patient and had active participation as well. Patient understood the treatment plan and all questions were answered, consent was obtained. PROCEDURE: Patient was brought to the OR and induced under general anesthesia then placed in the left side down lateral decubitus position with an axillary roll on the left chest wall and the left leg well padded. The right arm was also supported and well padded. The pegboard was used for lateral positioning. The patient was given preoperative antibiotics per the SCIP protocol. After an appropriate timeout verifying surgical site and patient allergies/comorbidities, the right hip was prepped and draped in the usual sterile fashion using alcohol and chloraprep. A #10 blade was used to remove the previous sutures from the fascia after removal of a wound VAC sponge prior to prepping and draping. A hematoma was encountered and evacuated but no obvious purulent fluid or material. Previously placed antibiotic beads times 20 with their 5. Ethibond suture were then removed and counted. The hip was internally rotated and dislocated and the femoral head was removed with a bone tamp. A Cobra retractor was placed over the anterior rim of the acetabulum to retract the femur anteriorly and then we removed the polyethylene liner with the tool from the [employer] set. We then irrigated the acetabular component with surgiphor Betadine solution and scrubbed the implant to break up any biofilm with a Betadine scrub brush. We then irrigated with a L of Bactisure solution followed by rinsingwith a L of dilute vancomycin solution in the Pulsavac. A new polyethylene liner was then opened and placed into the acetabular component after clearing all soft tissue from the periphery and then itwas impacted and it sat flush. Attention was then directed to the proximal femur where the exposed f emoral component was then scrubbed with a Betadine scrub brush and we irrigated with the dilute Betadine solution. We then rinsed with the vancomycin irrigation and then placed a new femoral head, size 40 4+4 and impacted it onto the trunnion after drying the trunnion and then the hip was reduced. The hip was stable at 90 degrees of flexion with internal rotation past 60 degrees without subluxation. At 30 degrees of flexion and adduction of the knee it was stable to internal rotation past 60 degrees. The hip had full extension and abduction without impingement. The hip was stable anteriorly to external rotation. Limb lengths were clinically equal. Thorough irrigation with the above solutionand dilute betadine solution was followed by sprinkling of 1 g vancomycin in the soft tissues. The fascia was closed with 1 stratafix running barbed suture followed by 2-0 vicryl for the sub Q and 0 Prolene horizontal mattress sutures for the skin. A Prevena wound VAC dressing was then placed for his wound at risk and placed to suction. The patient was awakened from general anesthesia then taken to recovery room in stable condition. There were no complications. In recovery the patient had a palpable DP pulse and could dorsiflex and plantarflex the ankles and toes, indicating good neurovascular function. SPECIMENS: 20 antibiotic beads were removed DRAINS: A Prevena wound VAC sponge was placed on the incision and placed to suction COMPLICATIONS: None ESTIMATED BLOOD LOSS: 300cc DISPOSITION: TO RR in stable condition POSTOP PLAN: Pt will be up in the AM WBAT and will be maintained on posterior hip precautions with physical therapy. IMPLANTS - oxinium (ceramicized metal head with ceramic coating) femoral head inside highly cross linked polyethylene liner Implant Name Type Inv. Item Serial No. Maintenance Of Way Foreman Lot No. LRB No. Used Action liner [employer] [id number] Right 1 Implanted femoral head [employer] [id number] Right 1 Implanted head sleeve [employer] [id number] Right 1 Implanted COUNTS: Sponge and needle counts were correct at the end of procedure and I was present for the entire case. This dictation was performed with the use of [employer] voice recognition and errors with transcriptionmay occur. Torrey Zayas. 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 Wound vac and [address] EBL: blood loss of 100 ml Urine Output : none IV Fluid Intake: see anesthesia note Drains: Negative Pressure Wound Therapy Right Hip (Active) Negative Pressure Dressing Status Changed 09/27/23 1202 Setting 125 mmHg Suction 09/26/23 1947 Dressing (@ Dressing change ONLY) 1 black foam 09/27/23 1202 Wound Vac Output (ml) 150 ml 09/27/23 0738 Specimen(s): ID Type Source Tests Collected by Time Destination 1 : right hip Microbiology Hip CULTURE ANAEROBE, CULTURE WOUND+GRAM STAIN Torrey Lafleur MD 09/27/2023 1121 Implant(s): Implant Name Type Inv. Item Serial No. Maintenance Of Way Foreman Lot No. LRB No. 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 Repeat irrigation and debridement of infected right total hip arthroplasty 2. Removal of antibiotic beads, right hip 3. Placement of fresh antibiotic beads, right hip 4. Wound VAC application right hip SURGEON: Omar Lafleur MD FALAFEL CART COOK(S): Brigido Lundberg MD and Von Dodson NP was the customer support assistant and assisted with surgical retraction, limb manipulation, hip reduction, and wound closure as there was no surgicalfirst seismic survey assistant or resident available for the surgical procedure due to a current resident shortagein our residency program ANESTHESIA: GET INDICATIONS FOR PROCEDURE: Patient is a 58 year old who presented to the emergency department for severe right hip pain and an aspiration revealed almost 100,000 white blood cells and he has grown group B strep from his previous irrigation and debridement and now returns for the above-named procedures. We discussed implant retention since he has already failed a 2 stage reconstruction. Risks, benefits, and alternatives to the surgical procedure were discussed with the patient and present familymembers. Risks discussed among others were: Infection and persistent infection requiring antibioticsuppression in the future, bleeding/blood transfusion, neurovascular damage, prosthetic joint instability, failure to improve symptoms, venous thrombosis/pulmonary embolism, and anesthesia complications including . We also discussed the procedure at length and answered any of the patient's questions. We also discussed the importance of early motion and early active ankle pumps for DVT/PE prevention and demonstrated this to the patient and had active participation as well. Patient understood the treatment plan and all questions were answered, consent was obtained. PROCEDURE: Patient was brought to the OR and induced under general anesthesia then placed in the left side down lateral decubitus position with an axillary roll on the left chest wall and the left leg well padded. The right arm was also supported and well padded. The pegboard was used for lateral positioning. The patient was given preoperative antibiotics per the SCIP protocol. Patient received 1g tranexamic acid prior to the start of the procedure and another gram at closure to decrease bloodloss. After an appropriate timeout verifying surgical site and patient allergies/comorbidities, theright hip was prepped and draped in the usual sterile fashion using alcohol and chloraprep. Previous sutures were removed with a 10. Blade after removing the previous wound VAC sponge prior to prepping and draping. Twenty antibiotic beads were removed from the deep hip. A new batch of gentamicin cement was mixed with a g of vancomycin powder and 20 antibiotic beads were placed on a 5. Ethibond suture and allowed to cure. The hip was internally rotated and dislocated and the femoral head was removed with a bone tamp. The tool from the [employer] set was used to remove the polyethylene from the acetabular component. We then thoroughly scrubbed both the femoral and acetabular components after placing a slap hammer on the shoulder of the femoral component and back slapping at not being able to see the implant move at all. After thorough scrubbing for greater than 6 minutes of both thefemoral and acetabular components. We irrigated with a L of Bactisure solution followed by the remaining surgiphor dilute Betadine solution followed by a L of vancomycin impregnated saline in the Pulsavac. We rinsed the Bactisure out immediately after placement. The polyethylene and head were soaked in alcohol and then dried and then replaced back onto the trunnion and into the acetabulum and impacted. The hip was reduced and taken through range of motion was found to be stable. We then closed the fascia with running 3. Vicryl sutures over the beads and then placed a large wound VAC sponge cut into the superficial tissues stapled to the skin and then covered with adhesive and placed to sucti on. Patient was then awakened from general anesthesia and taken to recovery room in stable condition. There were no complications. We did take cultures upon entering the hip joint. There were no complications. In recovery the patient had a palpable DP pulse and could dorsiflex and plantarflex the ankles and toes, indicating good neurovascular function. SPECIMENS: Cultures were taken as noted above and 20 antibiotic beads were removed with their 5. Ethibond DRAINS: 1 wound VAC sponge was placed superficial and placed to suction COMPLICATIONS: None ESTIMATED BLOOD LOSS: 200cc DISPOSITION: TO RR in stable condition POSTOP PLAN: Pt will be up in the AM WBAT and will be maintained on posterior hip precautions with physical therapy and will stay on Lovenox until next Sunday when we will take him back for repeat debridement and closure with revision of the modular components. IMPLANTS - 20 antibiotic cement beads with a 5. Ethibond suture Implant Name Type Inv. Item Serial No. Maintenance Of Way Foreman Lot No. LRB No. Used Action Cmnt Bone Rally 40Gm Hvisc Sprmnt Grn Cmnt Bone Rally 40Gm Hvisc Sprmnt Grn [employer] [id number] Right 1 Implanted COUNTS: Sponge and needle counts were correct at the end of procedure and I was present for the entire case. This dictation was performed with the use of [employer] voice recognition and errors with transcriptionmay occur. Torrey Lafleur MD EW COORDINATOR * Brief Op Note - Germain Donovan MD - 09/24/2023 8:49 PM CST Brief Op Note Procedure: ASPIRATION RIGHT HIP UNDER FLUOROSCOPY, FLUOROSCOPY FOR NEEDLE PLACEMENT RIGHT HIP, ARTHROTOMY WITH IRRIGATION AND DEBRIDEMENT RIGHT HIP, REMOVAL OF HARDWARE RIGHT HIP, PLACEMENT OF ANTIBIOTIC BEADS RIGHT HIP X20, WOUND VAC PLACEMENT RIGHT HIP Patient Name: Taylor Rutledge Date of Service: 09/24/2023 Pre-Op Diagnosis: right prosthetic hip joint infection Post-Op Diagnosis: same as above Surgeon(s) and Role: * Torrey Lafleur MD - Primary Religion Professor(s): Recovery Operator: Felipe Haque RN Scrub Person: Lea Mills Anesthesia Type: general ETT Complications: none Findings: 10cc of purulent fluid aspirated from right hip joint (sent for culture, cell count and crystals). We proceeded with right hip I&D utilizing the prior posterior hip incision. There was copious purulent fluid deep to the fascia which was debrided and irrigated with copious sterile saline. Cultures were obtained prior to this. Antibiotic beads x20 were placed in the hip joint, the fascia was loosely approximated with a running suture. Wound vac was then applied. EBL: 300 mL Urine Output : none IV Fluid Intake: see anesthesia note Drains: Negative Pressure Wound Therapy Right Hip (Active) Specimen(s): ID Type Source Tests Collected by Time Destination 1 : Microbiology Synovial Fluid CULTURE ANAEROBE, CULTURE AFB+SMEAR, CULTURE FLUID+GRAM STAIN, CULTURE FUNGUS OTHER+FUNGUS SMEAR Torrey Lafleur MD 09/24/20232026 2 : Fluid Synovial Fluid CELL COUNT W DIFFERENTIAL FLUID, CRYSTAL IDENTIFICATION FLUID Torrey Lafleur MD 09/24/20232027 3 : Right Hip Swab Microbiology Hip CULTURE ANAEROBE, CULTURE AFB+SMEAR, CULTURE TISSUE+GRAM STAIN,CULTURE WOUND+GRAM STAIN, CULTURE FUNGUS OTHER+FUNGUS SMEAR Torrey Lafleur MD 09/24/20232057 4 : Right HIp TIssue Microbiology Tissue CULTURE ANAEROBE, CULTURE AFB+SMEAR, CULTURE TISSUE+GRAM STAIN, CULTURE WOUND+GRAM STAIN, CULTURE FUNGUS OTHER+FUNGUS SMEAR Torrey Lafleur MD 09/24/20232100 Implant(s): Implant Name Type Inv. Item Serial No. Maintenance Of Way Foreman Lot No. LRB No. Used Action Cmnt Bone Rally 40Gm Hvisc Sprmnt Grn Cmnt Bone Rally 40Gm Hvisc Sprmnt Grn [employer] [id number] Right 1 Implanted Germain Donovan MD EW COORDINATOR * Operative - Torrey Lafleur MD - 09/24/2023 8:49 PM CST DATE OF SURGERY: 09/24/2023 Taylor Rutledge [id number] PREOP DX: Painful right total hip arthroplasty status post previous 2 stage reconstruction for infection from a primary hip arthroplasty from an outside facility with symptoms for 24 hours POSTOP DX: Infected revision right total hip arthroplasty with symptoms for 24 hours PROCEDURE: 1. Aspiration of right hip arthroplasty under fluoroscopy and anesthesia. 2. Fluoroscopy for needle placement right hip 3. Arthrotomy with irrigation and debridement of infected right hip 4. Placement of antibiotic cement beads, right hip. 5. Removal of hardware/cerclage cable right hip 6. Wound VAC application right hip SURGEON: Omar Lafleur MD FALAFEL CART COOK(S): Dustin Donovan MD ANESTHESIA: GET INDICATIONS FOR PROCEDURE: Patient is a 58 year old who presented to the emergency department for severe right hip pain since last evening. He has a history of a revision hip arthroplasty for infection after a primary hip arthroplasty at an outside facility. He underwent a 2 stage revision with an a ntibiotic cement spacer in the interim and we revised him in Dec, 2022. He continued to have some thigh pain and inflammatory markers in March, were not concerning for infection and his wound healed without problems. He does have a history of psoriasis and has noted increased scaliness and plaques around his incision recently as well as multiple sores around his right buttock thigh and leg which he states he tries not to scratch. He is tried multiple creams but he was denied by his insurance for any other psoriasis systemic treatments. In the emergency department X-rays did not reveal any change in his implants with a well-aligned long stemmed revision hip arthroplasty and CT scan revealed scant fluid lateral to the greater trochanter but no discrete fluid collections . Inflammatorymarkers were elevated with a C-reactive protein greater than 5 and a sedimentation rate of 50. Risks, benefits, and alternatives to the surgical procedure were discussed with the patient and present family members. Risks discussed among others were: Infection, bleeding/blood transfusion, neurovascul ar damage, prosthetic joint instability, failure to improve symptoms, venous thrombosis/pulmonary embolism, and anesthesia complications including . We also discussed the procedure at length andanswered any of the patient's questions. We also discussed the importance of early motion and earlyactive ankle pumps for DVT/PE prevention and demonstrated this to the patient and had active participation as well. Patient understood the treatment plan and all questions were answered, consent was obtained for the above-named procedures. PROCEDURE: Patient was brought to the OR and induced under general anesthesia then a preliminary time-out was performed verifying surgical site and comorbidities and the right hip anteriorly was prepped and draped in usual sterile fashion using alcohol and ChloraPrep. C-arm fluoroscopy was brought in and an 18 gauge spinal needle was placed from lateral to medial and anterior to posterior under fluoroscopic guidance until we could palpate the implant. We stayed lateral to the femoral pulse. We aspirated about 6 cc of cloudy purulent appearing fluid and sent it for cell count and culture. At this point these drapes were removed and the patient was placed in the left side down lateral decubitus position with an axillary roll on the left chest wall and the left leg well padded. The right armwas also supported and well padded. The pegboard was used for lateral positioning. The patient was given preoperative antibiotics per the SCIP protocol after cultures were taken after we opened his right hip. Patient received 1 g tranexamic acid prior to the start of the procedure and another gram at closure to decrease blood loss. After a 2nd appropriate timeout verifying surgical site and patient allergies/comorbidities, the right hip was prepped and draped in the usual sterile fashion using alcohol and chloraprep. A #10 blade was used to make the posterolateral incision through his old scar, which had psoriatic plaques surrounding it and incorporated on it with multiple punctate open wounds as a scattered maculopapular rash versus folliculitis - multiple pictures were taken in the chart in the media tab of these lesions. Electrocautery was used to dissect down to the scarred fascia. The fascia was split proximally and distally and gluteus sushant was split in line with its fibers proximally. The Charnley retractor was placed deep to the fascia and abundant purulent fluid was encountered. The sciatic nerve was palpated and identified but was not formally dissected out to avoid devascularization. We then sent additional swab cultures as well as tissue cultures from the hypertrop hic bursa. The hypertrophic bursa was debrided with graspers and electrocautery and then the hip was internally rotated and subluxed and we thoroughly irrigated and scrubbed the implants with a Betadine scrub brush. We mixed a batch of gentamicin cement and added a g of vancomycin powder and made 20 antibiotic beads and strung them on a 5. Ethibond suture and allowed them to cure. We thoroughly irrigated with a L of dilute Betadine solution as well as 3 L of vancomycin impregnated saline in thePulsavac. After debriding the lateral femur of hypertrophic bursa. The previously placed cerclage cable was found distal on the femur and exposed with electrocautery and then cut with a cable cutter and the cable was removed. After thorough irrigation and everything appeared clean we placed the antibiotic beads into the hip joint as well as in the posterior soft tissues and then closed the fascialoosely with 3. Vicryl sutures, running followed by placing a large wound VAC sponge in the more superficial soft tissues and stapling it to the edges of the skin and then covering it with adhesive and placing it to suction. Patient was then awakened from general anesthesia and taken to recovery room in stable condition. There were no complications. In recovery the patient had a palpable DP pulseand could dorsiflex and plantarflex the ankles and toes, indicating good neurovascular function. SPECIMENS: Multiple cultures were taken as noted above and a cell count was also sent from the aspiration DRAINS: 1 wound VAC sponge was cut and placed into the wound and placed to suction ] COMPLICATIONS: None ESTIMATED BLOOD LOSS: 300cc DISPOSITION: TO RR in stable condition POSTOP PLAN: Pt will be up in the AM WBAT and will be maintained on posterior hip precautions with physical therapy and will return later in the week for repeat irrigation and debridement on . IMPLANTS - 20 antibiotic beads were placed on a 5. Ethibond suture Implant Name Type Inv. Item Serial No. Maintenance Of Way Foreman Lot No. LRB No. Used Action Cmnt Bone Rally 40Gm Hvisc Sprmnt Grn Cmnt Bone Rally 40Gm Hvisc Sprmnt Grn [employer] [id number] Right 1 Implanted COUNTS: Sponge and needle counts were correct at the end of procedure and I was present for the entire case. This dictation was performed with the use of [employer] voice recognition and errors with transcriptionmay occur. Torrey Lafleur MD EW COORDINATOR documented in this encounter ED Notes * Angelica Galeana RN - 09/24/2023 3:59 PM CST Report given to RN on . RN will transport patient to 2E. EW COORDINATOR * Guille Aguilera RN - 09/24/2023 2:25 PM CST Pt given pain medicine per OCT. Pt c/o 05/15 R hip pain, reports hx of complications with multiple R hip surgeries, last surgery in December 2022. Pt sitting in wheelchair at this time, declines transferring to bed. Friend at bedside. Pt a/ox4, on monitors. Breathing regular and non labored. No signs of distress. Pt wheelchaired to CT by transporter at this time. EW COORDINATOR * Drew Lerma, - 09/24/2023 1:47 PM CST Taylor Horta Maty [id number] [facility] EMERGENCY DEPARTMENT History Chief Complaint Patient presents with ??? Injury Leg Right leg pain. Hx of hip and knee surgery Patient is a 58-year-old male presenting for right leg pain. Patient reports is been going on for over year but much worse last night. Patient reports he is unable to bear any weight or walk. Patientreports it is a stabbing pain worsened in his medial thigh. Patient reports previous hip replacement with complications requiring tired rods antibiotic spacers and multiple surgeries. Patient denies a [place] fever nausea chest pain shortness of breath numbness or weakness. Past Medical History: Diagnosis Date ??? Aortic stenosis mod-sev on 2022 echo ??? CAD (coronary artery disease) ??? High blood pressure ??? LVH (left ventricular hypertrophy) ??? Mixed hyperlipidemia ??? Restless leg syndrome ??? Sleep apnea uses cpap ??? Stroke ([facility] 2021 balance residual ??? [place] 2 [place] [place] Past Surgical History: Procedure Laterality Date ??? Appendectomy ??? Cardiac Catherization 2018 no intervetion ??? COLONOSCOPY ??? EGD ??? ENDOSCOPY, UPPER N/A 12/15/2022 N/A; ESOPHAGOGASTRODUODENOSCOPY (EGD) DIAGNOSTIC ??? ENDOSCOPY, UPPER 12/15/2022 ESOPHAGOGASTRODUODENOSCOPY (EGD) BIOPSY ??? GENERAL SURGERY PROCEDURE Right 12/08/2022 Right; PREVENA/ WOUND VAC APPLICATION RIGHT HIP ??? HIP ARTHROPLASTY, REVISION Right 12/08/2022 Right; REVISION RIGHT TOTAL HIP ARTHROPLASTY BOTH COMPONENTS, REMOVAL OF ANTIBIOTIC SPCER RIGHT HIP ??? HIP ARTHROPLASTY, TOTAL Right ??? OTHER SURGERY Right 08/30/2022 removed hip and placed antibiotic spacer ??? Rotator Cuff Repair Right ??? SHOULDER ARTHROPLASTY, TOTAL Left Family History Problem Relation Name Age of Onset ??? Diabetes Mother Status: Alive ??? Hypertension Mother ??? Cancer Father rectal; Status: Social History Socioeconomic History ??? Marital status: Spouse name: Not on file ??? Number of children: Not on file ??? Years of education: Not on file ??? Highest education level: Not on file Occupational History ??? Not on file Tobacco Use ??? Smoking status: Never ??? Smokeless tobacco: Never Vaping Use ??? Vaping Use: Never used Substance and Sexual Activity ??? Alcohol use: Not Currently ??? Drug use: No ??? Sexual activity: Yes Partners: Female Other Topics Concern ??? Not on file Social History Narrative ??? Not on file Social Determinants of Health Financial Resource Strain: Low Risk (12/14/2022) Overall Financial Resource Strain (CARDIA) ??? Difficulty of Paying Living Expenses: Not hard at all Food Insecurity: No Food Insecurity (12/15/2022) Hunger Vital Sign ??? Worried About Running Out of Food in the Last Year: Never true ??? Ran Out of Food in the Last Year: Never true Transportation Needs: No Transportation Needs (12/14/2022) PRAPARE - Transportation ??? Lack of Transportation (Medical): No ??? Lack of Transportation (Non-Medical): No Stress: No Stress Concern Present (12/14/2022) [employer] [place] [employer] - Occupational Stress Questionnaire ??? Feeling of Stress : Not at all Housing Stability: Low Risk (12/14/2022) Housing Stability Vital Sign ??? Unable to Pay for Housing in the Last Year: No ??? Number of Places Lived in the Last Year: 1 ??? Unstable Housing in the Last Year: No Review of Systems Review of Systems Constitutional: Negative for fever. HENT: Negative for sore throat. Eyes: Negative for blurred vision. Respiratory: Negative for cough and shortness of breath. Cardiovascular: Negative for chest pain. Gastrointestinal: Negative for abdominal pain, diarrhea, nausea and vomiting. Genitourinary: Negative for dysuria. Musculoskeletal: Negative for neck pain. Skin: Negative for rash. Neurological: Negative for focal weakness and headaches. Psychiatric/Behavioral: Negative for hallucinations and suicidal ideas. Physical Exam BP 111/95 Pulse 81 Temp 99 ??F (37.2 ??C) (Oral) Resp 18 SpO2 95% Physical Exam Constitutional: Appearance: Normal appearance. HENT: Head: Normocephalic and atraumatic. Right Ear: External ear normal. Left Ear: External ear normal. Nose: Nose normal. Mouth/Throat: Mouth: Mucous membranes are dry. Pharynx: Oropharynx is clear. Eyes: Conjunctiva/sclera: Conjunctivae normal. Pupils: Pupils are equal, round, and reactive to light. Cardiovascular: Rate and Rhythm: Normal rate and regular rhythm. Pulses: Normal pulses. Heart sounds: Normal heart sounds. Pulmonary: Effort: Pulmonary effort is normal. Breath sounds: Normal breath sounds. Abdominal: General: Bowel sounds are normal. Palpations: Abdomen is soft. Tenderness: There is no abdominal tenderness. Musculoskeletal: General: No tenderness. Normal range of motion. Cervical back: Neck supple. No rigidity. Comments: Tenderness to right thigh. No outward abnormalities. Pain with palpation. Distally good pulses good sensation. Skin: General: Skin is warm and dry. Capillary Refill: Capillary refill takes less than 2 seconds. Neurological: General: No focal deficit present. Mental Status: He is alert and oriented to person, place, and time. Psychiatric: Mood and Affect: Mood normal. Behavior: Behavior normal. Medications Current Outpatient Medications Medication Sig Dispense Refill ??? amLODIPine (Norvasc) 5 MG tablet Take 1 (one) tablet by mouth once daily ??? aspirin (Aspirin 81) 81 MG chew tablet Take 1 (one) tablet by mouth 2 times daily (Patient not taking: Reported on 08/29/2023) 70 tablet 0 ??? azithromycin (Zithromax) 500 MG tablet Take 1 (one) tablet by mouth 1 Hour prior to Dental Appointment Reasons: Treatment to Prevent Infection in Prosthetic Arthroplasty 1 tablet PRN ??? azithromycin (Zithromax) 500 MG tablet Take 1 (one) tablet by mouth 1 Hour prior to Dental Appointment Reasons: Treatment to Prevent Infection in Prosthetic Arthroplasty 1 tablet PRN ??? Bacillus Coagulans-Inulin (Probiotic) 1-250 BILLION-MG CAPS ??? betamethasone dipropionate (Diprosone) 0.05 % ointment as needed ??? buPROPion XL 24hr (Wellbutrin-XL) 300 MG tablet ??? carvedilol (Coreg) 25 MG tablet Take 1 (one) tablet by mouth 2 times daily ??? cloNIDine (Catapres) 0.1 MG tablet Take 1 (one) tablet by mouth 2 times daily ??? clopidogrel (plaVIX) 75 MG tablet Take 1 (one) tablet by mouth once daily Start taking 12/19/22. ??? cyclobenzaprine (Flexeril) 10 MG tablet Take 1 (one) tablet by mouth 2 times daily ??? Docusate Sodium (DSS) 100 MG Take 100 mg by mouth 2 times daily ??? dulaglutide (Trulicity) 1.5 MG/0.5ML injection ??? ergocalciferol (Drisdol) 1.25 MG (91881 UT) capsule Take 1 (one) capsule by mouth ??? ferrous sulfate 325 (65 FE) MG tablet Take 1 (one) tablet by mouth once daily ??? losartan-hydroCHLOROthiazide (Hyzaar) 100-12.5 MG tablet Take 1 (one) tablet by mouth every morning ??? metFORMIN (Glucophage) 1000 MG tablet Take 1 (one) tablet by mouth 2 times daily ??? Multiple Vitamins-Minerals (One-A-Day Mens Health Formula) TABS ??? pantoprazole EC (Protonix) 40 MG tablet Take 1 (one) tablet by mouth once daily Reasons: Stomach Ulcer 30 tablet 2 ??? pregabalin (Lyrica) 50 MG capsule Take 1 (one) capsule by mouth 2 times daily 70 capsule 0 ??? rosuvastatin (Crestor) 20 MG tablet Take 2 (two) tablets by mouth every morning ??? sertraline (Zoloft) 50 MG tablet Take 1 (one) tablet by mouth once daily Procedures Procedures Lab/SPO2 Interpretation Hospital Encounter on 09/24/23 CBC W AUTO DIFFERENTIAL Result Value Ref Range WBC 11.8 (H) 4.0 - 10.7 x10E9/L RBC Count 4.15 (L) 4.30 - 5.80 x10E12/L Hemoglobin 12.6 (L) 13.3 - 17.5 g/dL Hematocrit 38.9 38.7 - 51.1 % MCV 93.7 80.0 - 98.0 fL MCH 30.4 26.7 - 33.6 pg MCHC 32.4 31.7 - 36.3 g/dL RDW-CV 13.2 11.3 - 14.8 % Platelet Count 194 150 - 420 x10E9/L MPV 9.1 7.8 - 11.4 fL BASIC METABOLIC PANEL (CALCIUM TOTAL) Result Value Ref Range Glucose 178 (H) 70 - 105 mg/dL Sodium 137 136 - 145 mmol/L Potassium 4.2 3.5 - 5.1 mmol/L Chloride 105 98 - 107 mmol/L CO2 23 22 - 29 mmol/L Calcium 9.4 8.4 - 10.4 mg/dL Anion Gap 9 6 - 16 mmol/L BUN 14 7 - 26 mg/dL Creatinine 0.90 0.72 - 1.25 mg/dL eGFR by CKD-EPI >90 >=90 mL/min/1.73 m2 DIFFERENTIAL MANUAL Result Value Ref Range Neutrophil % 82 (H) 41 - 74 % Lymphocyte % 7 (L) 17 - 47 % Monocyte % 11 3 - 11 % Neutrophil Absolute 9.68 (H) 1.60 - 7.50 x10E9/L Lymphocyte Absolute 0.83 (L) 1.00 - 4.40 x10E9/L Monocyte Absolute 1.30 (H) 0.15 - 1.00 x10E9/L RBC Morphology NORMAL ERYTHROCYTE SEDIMENTATION RATE Result Value Ref Range Erythrocyte Sedimentation Rate Automated 50 (H) 0 - 20 MM/HR C-REACTIVE PROTEIN Result Value Ref Range C-Reactive Protein 5.64 (H) <=0.50 mg/dL VAS RIGHT VENOUS DUPLEX LE Final Result [address] [address] Lower Extremity Venous Ultrasound Report Pat.Name: TAYLOR RUTLEDGE Mychal Pat.ID: [id number] .Date: 09/24/2023 Refer.MD: Drew Lerma Exam Time: 3:44:00 PM Study Type:LE Venous Age: 9 1965,58Y Sex: MALE Sonogrphr: Cheryl Gaines RVT Pat. Stat.:Inpatient ICD - 9: M25.551 Reason for Study: Pain -Leg, right Procedures: Lower Extremity Venous - Right Race: 1 Visit ID: [id number] ++++++++++++++++++++++++++++++++++++ SUMMARY: ++++++++++++++++++++++++++++++++++++ Technically difficult study. No [...] Signed 09/24/2023 01:53 PM Antonio Antoine MD XR FEMUR TRAUMA 2 VW RIGHT Final Result PROCEDURE: XR FEMUR RIGHT 2VW, DATE/TIME OF EXAM: 09/24/2023 11:24 AM, LOCATION [facility] INDICATION: M25.551: Pain in right hip [...] Mitchell Zuniga MD on 09/24/2023 11:31 AM XR PELVIS 1 OR 2VW Final Result PROCEDURE: XR PELVIS 1 OR 2VW, DATE/TIME OF EXAM: 09/24/2023 11:23 AM, LOCATION [facility] INDICATION: M25.551: Pain in right hip [...] Mitchell Zuniga MD on 09/24/2023 11:[address] LOWER EXT RIGHT W CONTRAST (Results Pending) Progress Notes ED Course Clinical Impressions as of 09/24/23 1438 Pain of right hip Inability to ambulate due to hip Medical Decision Making Patient seen emergency department due to worsening leg pain. Patient reports ongoing pain but much worse over night. Patient has been unable to ambulate. Physical exam was reassuring no outward signsbut patient very tender to the touch. Patient had good sensation good pulses. X-rays did not show any acute findings. White blood cell count was borderline. ESR CRP appear elevated from his baseline.Orthopedics was consulted. Ultrasound and CT scan were ordered. Orthopedics recommended admission at this time possible surgery for washout tonight. Patient be made NPO. Orthopedics did not request antibiotics at this time. Amount and/or Complexity of Data Reviewed Labs: ordered. Radiology: ordered. Risk Prescription drug management. Orders Placed This Encounter ??? XR FEMUR TRAUMA 2 VW RIGHT ??? XR PELVIS 1 OR 2VW ??? CT LOWER EXT RIGHT W CONTRAST ??? CBC W AUTO DIFFERENTIAL ??? BASIC METABOLIC PANEL (CALCIUM TOTAL) ??? DIFFERENTIAL MANUAL ??? ERYTHROCYTE SEDIMENTATION RATE ??? C-REACTIVE PROTEIN ??? VAS RIGHT VENOUS DUPLEX LE ??? morphine injection 4 mg ??? ondansetron (Zofran) injection 4 mg ??? HYDROmorphone (Dilaudid) injection 0.5 mg ??? *Hold/Avoid Medication ??? iopamidol (Isovue 370) 76 % contrast ??? 0.9% NaCl injection 0-10 mL ??? 0.9% NaCl IV flush bag EW COORDINATOR * Kip Storey PA - 09/24/2023 10:11 AM CST [facility] Rutlegde [address] [facility] EMERGENCY DEPARTMENT History Chief Complaint Patient presents with ??? Injury Leg Right leg pain. Hx of hip and knee surgery HPI previous hip surgery with Dr. Lafleur with multiple complications. Presenting with severe hip pain today denying any fall or injury. Visibly distraught and triage. Denies numbness tingling weakness. Past Medical History: Diagnosis Date ??? Aortic stenosis mod-sev on 2022 echo ??? CAD (coronary artery disease) ??? High blood pressure ??? LVH (left ventricular hypertrophy) ??? Mixed hyperlipidemia ??? Restless leg syndrome ??? Sleep apnea uses cpap ??? Stroke ([facility]) 2021 balance residual ??? Type 2 diabetes mellitus without complications ([facility]) Past Surgical History: Procedure Laterality Date ??? Appendectomy ??? Cardiac Catherization 2018 no intervetion ??? COLONOSCOPY ??? EGD ??? ENDOSCOPY, UPPER N/A 12/15/2022 N/A; ESOPHAGOGASTRODUODENOSCOPY (EGD) DIAGNOSTIC ??? ENDOSCOPY, UPPER 12/15/2022 ESOPHAGOGASTRODUODENOSCOPY (EGD) BIOPSY ??? GENERAL SURGERY PROCEDURE Right 12/08/2022 Right; PREVENA/ WOUND VAC APPLICATION RIGHT HIP ??? HIP ARTHROPLASTY, REVISION Right 12/08/2022 Right; REVISION RIGHT TOTAL HIP ARTHROPLASTY BOTH COMPONENTS, REMOVAL OF ANTIBIOTIC SPCER RIGHT HIP ??? HIP ARTHROPLASTY, TOTAL Right ??? OTHER SURGERY Right 08/30/2022 removed hip and placed antibiotic spacer ??? Rotator Cuff Repair Right ??? SHOULDER ARTHROPLASTY, TOTAL Left Family History Problem Relation Name Age of Onset ??? Diabetes Mother Status: Alive ??? Hypertension Mother ??? Cancer Father rectal; Status: Social History Socioeconomic History ??? Marital status: Spouse name: Not on file ??? Number of children: Not on file ??? Years of education: Not on file ??? Highest education level: Not on file Occupational History ??? Not on file Tobacco Use ??? Smoking status: Never ??? Smokeless tobacco: Never Vaping Use ??? Vaping Use: Never used Substance and Sexual Activity ??? Alcohol use: Not Currently ??? Drug use: No ??? Sexual activity: Yes Partners: Female Other Topics Concern ??? Not on file Social History Narrative ??? Not on file Social Determinants of Health Financial Resource Strain: Low Risk (12/14/2022) Overall Financial Resource Strain (CARDIA) ??? Difficulty of Paying Living Expenses: Not hard at all Food Insecurity: No Food Insecurity (12/15/2022) Hunger Vital Sign ??? Worried About Running Out of Food in the Last Year: Never true ??? Ran Out of Food in the Last Year: Never true Transportation Needs: No Transportation Needs (12/14/2022) PRAPARE - Transportation ??? Lack of Transportation (Medical): No ??? Lack of Transportation (Non-Medical): No Stress: No Stress Concern Present (12/14/2022) [employer] - Occupational Stress Questionnaire ??? Feeling of Stress : Not at all Housing Stability: Low Risk (12/14/2022) Housing Stability Vital Sign ??? Unable to Pay for Housing in the Last Year: No ??? Number of Places Lived in the Last Year: 1 ??? Unstable Housing in the Last Year: No Review of Systems Review of Systems All other systems reviewed and are negative. Physical Exam BP 141/89 Pulse 90 Temp 99 ??F (37.2 ??C) (Oral) Resp 18 SpO2 100% Physical Exam Vitals reviewed. Constitutional: General: He is not in acute distress. Appearance: Normal appearance. HENT: Head: Normocephalic and atraumatic. Eyes: Extraocular Movements: Extraocular movements intact. Cardiovascular: Rate and Rhythm: Normal rate. Pulmonary: Effort: Pulmonary effort is normal. Musculoskeletal: Cervical back: Normal range of motion and neck supple. Comments: Tender over the right hip, requiring a walker to get around, unable to step more than a few inches at a time Neurological: Mental Status: He is alert. Mental status is at baseline. Psychiatric: Mood and Affect: Mood normal. Medications Current Outpatient Medications Medication Sig Dispense Refill ??? amLODIPine (Norvasc) 5 MG tablet Take 1 (one) tablet by mouth once daily ??? aspirin (Aspirin 81) 81 MG chew tablet Take 1 (one) tablet by mouth 2 times daily (Patient not taking: Reported on 08/29/2023) 70 tablet 0 ??? azithromycin (Zithromax) 500 MG tablet Take 1 (one) tablet by mouth 1 Hour prior to Dental Appointment Reasons: Treatment to Prevent Infection in Prosthetic Arthroplasty 1 tablet PRN ??? azithromycin (Zithromax) 500 MG tablet Take 1 (one) tablet by mouth 1 Hour prior to Dental Appointment Reasons: Treatment to Prevent Infection in Prosthetic Arthroplasty 1 tablet PRN ??? Bacillus Coagulans-Inulin (Probiotic) 1-250 BILLION-MG CAPS ??? betamethasone dipropionate (Diprosone) 0.05 % ointment as needed ??? buPROPion XL 24hr (Wellbutrin-XL) 300 MG tablet ??? carvedilol (Coreg) 25 MG tablet Take 1 (one) tablet by mouth 2 times daily ??? cloNIDine (Catapres) 0.1 MG tablet Take 1 (one) tablet by mouth 2 times daily ??? clopidogrel (plaVIX) 75 MG tablet Take 1 (one) tablet by mouth once daily Start taking 12/19/22. ??? cyclobenzaprine (Flexeril) 10 MG tablet Take 1 (one) tablet by mouth 2 times daily ??? Docusate Sodium (DSS) 100 MG Take 100 mg by mouth 2 times daily ??? dulaglutide (Trulicity) 1.5 MG/0.5ML injection ??? ergocalciferol (Drisdol) 1.25 MG (35638 UT) capsule Take 1 (one) capsule by mouth ??? ferrous sulfate 325 (65 FE) MG tablet Take 1 (one) tablet by mouth once daily ??? losartan-hydroCHLOROthiazide (Hyzaar) 100-12.5 MG tablet Take 1 (one) tablet by mouth every morning ??? metFORMIN (Glucophage) 1000 MG tablet Take 1 (one) tablet by mouth 2 times daily ??? Multiple Vitamins-Minerals (One-A-Day Mens Health Formula) TABS ??? pantoprazole EC (Protonix) 40 MG tablet Take 1 (one) tablet by mouth once daily Reasons: Stomach Ulcer 30 tablet 2 ??? pregabalin (Lyrica) 50 MG capsule Take 1 (one) capsule by mouth 2 times daily 70 capsule 0 ??? rosuvastatin (Crestor) 20 MG tablet Take 2 (two) tablets by mouth every morning ??? sertraline (Zoloft) 50 MG tablet Take 1 (one) tablet by mouth once daily Procedures Procedures Lab/SPO2 Interpretation No results found for this visit on 09/24/23. XR HIP RIGHT 2VW OR MORE (Results Pending) XR FEMUR TRAUMA 2 VW RIGHT (Results Pending) Progress Notes ED Course Clinical Impressions as of 09/24/23 1011 Pain of right hip Medical Decision Making Rapid medical exam only, care turned over to oncoming provider Amount and/or Complexity of Data Reviewed Labs: ordered. Radiology: ordered. Orders Placed This Encounter ??? XR HIP RIGHT 2VW OR MORE ??? XR FEMUR TRAUMA 2 VW RIGHT ??? CBC W AUTO DIFFERENTIAL ??? BASIC METABOLIC PANEL (CALCIUM TOTAL) ??? morphine injection 4 mg ??? ondansetron (Zofran) injection 4 mg EW COORDINATOR documented in this encounter Miscellaneous Notes * Coding Query - Praveen Kaufman MD - 10/04/2023 11:44 AM CST DOCUMENTATION CLARIFICATION REQUEST Use the F2 function ma to complete the query. Click ???Sign?? to file the note. TO: Dr Kaufman FROM: Hellen Martin RN, CDS Patient Name: Taylor Rutledge Please review the clinical information below and clarify the condition Choices may include but are not limited to: ??? Expected Acute Blood Loss Anemia ??? Other, please specify ??? Unable to determine The medical record reflects the following: o Risk Factors: 09/24: revision right total hip arthroplasty o Clinical Findings: 09/24 Op note: EBL 300cc's, o Hgb: 09/24: 12.6, 09/25: 10.8, 10/03: 8.4 o Treatment: Monitor Hgb PROVIDER RESPONSE (Use F2 to respond) ??? Expected Acute Blood Loss Anemia Please provide your clinical opinion and findings to support the diagnosis in the progress notes & carry it through into your discharge summary. THIS DOCUMENT IS MAINTAINED A PERMANENT PART OF THE MEDICAL RECORD. EW COORDINATOR documented in this encounter Plan of Treatment Upcoming Encounters Date Type Department Care Team (Late st Contact Info) Description 01/20/2025 10:00 AM CDT Office Visit [facility] - Orthopedic Surgery [address] [place] [address] [phone] Torrey Lafleur MD [address] [facility] [address] [place] [address] Scheduled Referrals Name Type Priority Associated Diagnoses Orde r Schedule Referral to Home Health Care Outpatient Referral Routine Infection of prosthetic joint, initial encounter (HCC) Ordered: 10/03/2023 documented as of this encounter Procedures Procedure Name Priority Date/Time Associated Diagnosis Comments CARDIAC RHYTHM STRIP ORDER 10/06/2023 12:03 PM REVIEW COORDINATOR GLUCOSE - POINT OF CARE Routine 10/04/2023 7:54 AM REVIEW COORDINATOR GLUCOSE - POINT OF CARE Routine 10/04/2023 12:00 AM REVIEW COORDINATOR GLUCOSE - POINT OF CARE Routine 10/03/2023 8:21 PM REVIEW COORDINATOR GLUCOSE - POINT OF CARE Routine 10/03/2023 4:51 PM REVIEW COORDINATOR GLUCOSE - POINT OF CARE Routine 10/03/2023 11:42 AM REVIEW COORDINATOR HGB HCT PANEL AM Draw 10/03/2023 8:51 AM REVIEW COORDINATOR OT EVAL AND TREAT Routine 10/03/2023 8:2 6 AM REVIEW COORDINATOR PT EVAL AND TREAT Routine 10/03/2023 8:2 6 AM REVIEW COORDINATOR GLUCOSE - POINT OF CARE Routine 10/03/2023 7:51 AM REVIEW COORDINATOR GLUCOSE - POINT OF CARE Routine 10/02/2023 8:56 PM REVIEW COORDINATOR GLUCOSE - POINT OF CARE Routine 10/02/2023 6:05 PM REVIEW COORDINATOR GLUCOSE - POINT OF CARE Routine 10/02/2023 4:25 PM REVIEW COORDINATOR MA INNA SUBQ TISSUE 20 SQ CM/< 10/02/2023 1:04 PM REVIEW COORDINATOR Diagnosis unknown Special Needs NEEDS REGULAR O.R. TABLE, WOUND VAC SUPPLIES KEPT IN O.R. SUPPLY ROOM, WOUND VAC MACHINE NEEDS TO BE SENT FROM THE PATIENT'S ROOM TO SURGERY--09/26 KW GLUCOSE - POINT OF CARE Routine 10/02/2023 8:06 AM REVIEW COORDINATOR GLUCOSE - POINT OF CARE Routine 10/01/2023 8:07 PM REVIEW COORDINATOR GLUCOSE - POINT OF CARE Routine 10/01/2023 4:33 PM REVIEW COORDINATOR GLUCOSE - POINT OF CARE Routine 10/01/2023 11:23 AM REVIEW COORDINATOR GLUCOSE - POINT OF CARE Routine 10/01/2023 7:32 AM REVIEW COORDINATOR GLUCOSE - POINT OF CARE Routine 09/30/2023 8:46 PM REVIEW COORDINATOR GLUCOSE - POINT OF CARE Routine 09/30/2023 3:51 PM REVIEW COORDINATOR GLUCOSE - POINT OF CARE Routine 09/30/2023 11:21 AM REVIEW COORDINATOR GLUCOSE - POINT OF CARE Routine 09/30/2023 7:36 AM REVIEW COORDINATOR HEPATIC FUNCTION PANEL AM Draw 09/30/2023 3:49 AM REVIEW COORDINATOR GLUCOSE - POINT OF CARE Routine 09/29/2023 8:02 PM REVIEW COORDINATOR GLUCOSE - POINT OF CARE Routine 09/29/2023 3:23 PM REVIEW COORDINATOR GLUCOSE - POINT OF CARE Routine 09/29/2023 11:27 AM REVIEW COORDINATOR GLUCOSE - POINT OF CARE Routine 09/29/2023 7:41 AM REVIEW COORDINATOR GLUCOSE - POINT OF CARE Routine 09/28/2023 7:47 PM REVIEW COORDINATOR GLUCOSE - POINT OF CARE Routine 09/28/2023 4:31 PM REVIEW COORDINATOR GLUCOSE - POINT OF CARE Routine 09/28/2023 11:06 AM REVIEW COORDINATOR GLUCOSE - POINT OF CARE Routine 09/28/2023 7:44 AM REVIEW COORDINATOR GLUCOSE - POINT OF CARE Routine 09/27/2023 10:05 PM REVIEW COORDINATOR GLUCOSE - POINT OF CARE Routine 09/27/2023 4:08 PM REVIEW COORDINATOR GLUCOSE - POINT OF CARE Routine 09/27/2023 12:20 PM REVIEW COORDINATOR CULTURE WOUND+GRAM STAIN STAT 09/27/2023 11:21 AM REVIEW COORDINATOR Diagnosis unknown CULTURE ANAEROBE STAT 09/27/2023 11:2 1 AM REVIEW COORDINATOR Diagnosis unknown MA INNA SUBQ TISSUE 20 SQ CM/< 09/27/2023 10:33 AM REVIEW COORDINATOR Diagnosis unknown Special Needs NEEDS REGULAR O.R. TABLE, WOUND VAC SUPPLIES KEPT IN O.R. SUPPLY ROOM, WOUND VAC MACHINE NEEDS TO BE SENT FROM THE PATIENT'S ROOM TO SURGERY--09/25 KW GLUCOSE - POINT OF CARE Routine 09/27/2023 7:50 AM REVIEW COORDINATOR GLUCOSE - POINT OF CARE Routine 09/26/2023 8:15 PM REVIEW COORDINATOR GLUCOSE - POINT OF CARE Routine 09/26/2023 4:31 PM REVIEW COORDINATOR GLUCOSE - POINT OF CARE Routine 09/26/2023 11:40 AM REVIEW COORDINATOR VANCOMYCIN LEVEL TROUGH STAT 09/26/2023 11:00 AM REVIEW COORDINATOR GLUCOSE - POINT OF CARE Routine 09/26/2023 7:38 AM REVIEW COORDINATOR VANCOMYCIN LEVEL PEAK STAT 09/26/2023 4:55 AM REVIEW COORDINATOR GLUCOSE - POINT OF CARE Routine 09/25/2023 9:55 PM REVIEW COORDINATOR GLUCOSE - POINT OF CARE Routine 09/25/2023 4:17 PM REVIEW COORDINATOR GLUCOSE - POINT OF CARE Routine 09/25/2023 12:00 PM REVIEW COORDINATOR CULTURE BLOOD Timed 09/25/2023 10:45 AM REVIEW COORDINATOR Infection of prosthetic joint, initial encounter (HCC) CULTURE BLOOD Timed 09/25/2023 10:41 AM REVIEW COORDINATOR Infection of prosthetic joint, initial encounter (HCC) GLUCOSE - POINT OF CARE Routine 09/25/2023 7:50 AM REVIEW COORDINATOR HEMOGLOBIN A1C Routine 09/25/2023 1:41 AM REVIEW COORDINATOR CBC W/O DIFFERENTIAL Routine 09/25/2023 1:41 AM REVIEW COORDINATOR BASIC METABOLIC PANEL (CALCIUM TOTAL) Routine 09/25/2023 1:41 AM REVIEW COORDINATOR GLUCOSE - POINT OF CARE Routine 09/24/2023 10:51 PM REVIEW COORDINATOR GLUCOSE - POINT OF CARE Routine 09/24/2023 9:50 PM REVIEW COORDINATOR CULTURE FUNGUS OTHER+FUNGUS SMEAR STAT 09/24/2023 9:01 PM REVIEW COORDINATOR Diagnosis unknown CULTURE TISSUE+GRAM STAIN STAT 09/24/2023 9:01 PM REVIEW COORDINATOR Diagnosis unknown CULTURE AFB+SMEAR STAT 09/24/2023 9:0 1 PM REVIEW COORDINATOR Diagnosis unknown CULTURE ANAEROBE STAT 09/24/2023 9:01 PM REVIEW COORDINATOR Diagnosis unknown CULTURE FUNGUS OTHER+FUNGUS SMEAR STAT 09/24/2023 8:58 PM REVIEW COORDINATOR Diagnosis unknown CULTURE TISSUE+GRAM STAIN STAT 09/24/2023 8:58 PM REVIEW COORDINATOR Diagnosis unknown CULTURE AFB+SMEAR STAT 09/24/2023 8:5 8 PM REVIEW COORDINATOR Diagnosis unknown CULTURE ANAEROBE STAT 09/24/2023 8:58 PM REVIEW COORDINATOR Diagnosis unknown FL GUIDED NEEDLE PLACEMENT STAT 09/24/2023 8:45 PM REVIEW COORDINATOR Pain of right hip PATHOLOGY SMEAR BODY FLUID Add on 09/24/2023 8:28 PM REVIEW COORDINATOR Diagnosis unknown DIFFERENTIAL MANUAL FLUID Add on 09/24/2023 8:28 PM REVIEW COORDINATOR Diagnosis unknown CRYSTAL IDENTIFICATION FLUID STAT 09/24/2023 8:28 PM REVIEW COORDINATOR Diagnosis unknown CELL COUNT W DIFFERENTIAL FLUID STAT 09/24/2023 8:28 PM REVIEW COORDINATOR Diagnosis unknown CULTURE FUNGUS OTHER+FUNGUS SMEAR STAT 09/24/2023 8:27 PM REVIEW COORDINATOR Diagnosis unknown CULTURE FLUID+GRAM STAIN STAT 09/24/2023 8:27 PM REVIEW COORDINATOR Diagnosis unknown CULTURE AFB+SMEAR STAT 09/24/2023 8:2 7 PM REVIEW COORDINATOR Diagnosis unknown CULTURE ANAEROBE STAT 09/24/2023 8:27 PM REVIEW COORDINATOR Diagnosis unknown MA DRAIN/INJECT LARGE JOINT/BURSA 09/24/2023 8:00 PM REVIEW COORDINATOR Diagnosis unknown Special Needs NEEDS C-ARM, JESÚS TABLE, [email or web address] TM / SURGEON AVALIBLE @1900 GLUCOSE - POINT OF CARE Routine 09/24/2023 6:06 PM REVIEW COORDINATOR OT EVAL AND TREAT Routine 09/24/2023 4:2 6 PM REVIEW COORDINATOR PT EVAL AND TREAT Routine 09/24/2023 4:[address] LOWER EXT RIGHT W CONTRAST STAT 09/24/2023 2:41 PM REVIEW COORDINATOR Pain of right hip VAS RIGHT VENOUS DUPLEX LE STAT 09/24/2023 1:37 PM REVIEW COORDINATOR Pain of right hip XR FEMUR RIGHT 2VW STAT 09/24/2023 11 :23 AM REVIEW COORDINATOR Pain of right hip XR PELVIS 1 OR 2VW STAT 09/24/2023 11 :23 AM REVIEW COORDINATOR Pain of right hip C-REACTIVE PROTEIN STAT 09/24/2023 10 :58 AM REVIEW COORDINATOR ERYTHROCYTE SEDIMENTATION RATE STAT 09/24/2023 10:58 AM REVIEW COORDINATOR DIFFERENTIAL MANUAL STAT 09/24/2023 1 0:58 AM REVIEW COORDINATOR CBC W AUTO DIFFERENTIAL STAT 09/24/2023 10:58 AM REVIEW COORDINATOR BASIC METABOLIC PANEL (CALCIUM TOTAL) STAT 09/24/2023 10:58 AM REVIEW COORDINATOR documented in this encounter Results * CARDIAC RHYTHM STRIP ORDER (10/06/2023 12:03 PM REVIEW COORDINATOR) Narrative 10/06/2023 12:03 PM REVIEW COORDINATOR Ordered by an unspecified provider. Scanned Document CARDIAC SERVICES ORD ERABLES * (ABNORMAL) GLUCOSE - POINT OF CARE (10/04/2023 7:54 AM REVIEW COORDINATOR) Glucose WB/POC 119(H) 70 - 106 mg/dL 10/04/2023 11:29 AM REVIEW COORDINATOR [facility] Specimen Type Cap Fingerstick 2023 11:29 AM REVIEW COORDINATOR [facility] Blood BLOOD SPECIMEN / Unknown 10/04/2023 7:54 AM REVIEW COORDINATOR 10/04/2023 11:29 AM REVIEW COORDINATOR Praveen Kaufman MD LAB - POINT OF CARE ORDERABLES [facility] [address] [place] [address] * (ABNORMAL) GLUCOSE - POINT OF CARE (10/04/2023 12:00 AM REVIEW COORDINATOR) Glucose WB/POC 181(H) 70 - 106 mg/dL 10/04/2023 12:10 AM REVIEW COORDINATOR [facility] Specimen Type Cap Fingerstick 2023 12:10 AM REVIEW COORDINATOR [facility] Blood BLOOD SPECIMEN / Unknown 10/04/2023 12:00 AM REVIEW COORDINATOR 10/04/2023 12:10 AM REVIEW COORDINATOR Praveen Kuafman MD LAB - POINT OF CARE ORDERABLES Performing Organization Address [facility]/ZIP Co de Phone Number [facility] [address] [place] [address] [phone] * (ABNORMAL) GLUCOSE - POINT OF CARE (10/03/2023 8:21 PM REVIEW COORDINATOR) Glucose WB/POC 141(H) 70 - 106 mg/dL 10/03/2023 8:30 PM REVIEW COORDINATOR [facility] Specimen Type Cap Fingerstick 2023 8:30 PM REVIEW COORDINATOR [facility] Blood BLOOD SPECIMEN / Unknown 10/03/2023 8:21 PM REVIEW COORDINATOR 10/03/2023 8:30 PM REVIEW COORDINATOR Praveen Kaufman MD LAB - POINT OF CARE ORDERABLES Performing Organization Address [facility] Co de Phone Number [facility] [address] [place] [address] [phone] * (ABNORMAL) GLUCOSE - POINT OF CARE (10/03/2023 4:51 PM REVIEW COORDINATOR) Glucose WB/POC 134(H) 70 - 106 mg/dL 10/03/2023 5:01 PM REVIEW COORDINATOR [facility] Specimen Type Cap Fingerstick 2023 5:01 PM REVIEW COORDINATOR [facility] Blood BLOOD SPECIMEN / Unknown 10/03/2023 4:51 PM REVIEW COORDINATOR 10/03/2023 5:01 PM REVIEW COORDINATOR Praveen Kaufman MD LAB - POINT OF CARE ORDERABLES Performing Organization Address City/[facility]/ZIP Co de Phone Number [facility] [address] [place] [address] [phone] * (ABNORMAL) GLUCOSE - POINT OF CARE (10/03/2023 11:42 AM REVIEW COORDINATOR) Glucose WB/POC 136(H) 70 - 106 mg/dL 10/03/2023 11:51 AM REVIEW COORDINATOR [facility] Specimen Type Cap Fingerstick 2023 11:51 AM REVIEW COORDINATOR [facility] Blood BLOOD SPECIMEN / Unknown 10/03/2023 11:42 AM REVIEW COORDINATOR 10/03/2023 11:51 AM REVIEW COORDINATOR Praveen Kaufman MD LAB - POINT OF CARE ORDERABLES Performing Organization Address [facility] Co de Phone Number [facility] [address] [place] [address] [phone] * (ABNORMAL) HGB HCT PANEL (10/03/2023 8:51 AM REVIEW COORDINATOR) Hemoglobin 8.4(L) 13.3 - 17.5 g/dL 10/03/2023 9:29 AM REVIEW COORDINATOR [facility] Hematocrit 26.7(L) 38.7 - 51.1 % 10/03/2023 9:29 AM REVIEW COORDINATOR [facility] Blood BLOOD SPECIMEN / Unknown Lab Venipuncture / Unknown 10/03/2023 8:51 AM REVIEW COORDINATOR 10/03/2023 9:20 AM REVIEW COORDINATOR Praveen Kaufman MD LAB - HEMATOLOGY ORD ERABLES Performing Organization Address [facility] Co de Phone Number [facility] [address] [place] [address] [phone] * (ABNORMAL) GLUCOSE - POINT OF CARE (10/03/2023 7:51 AM REVIEW COORDINATOR) Glucose WB/POC 135(H) 70 - 106 mg/dL 10/03/2023 8:13 AM REVIEW COORDINATOR [facility] Specimen Type Cap Fingerstick 2023 8:13 AM REVIEW COORDINATOR [facility] Blood BLOOD SPECIMEN / Unknown 10/03/2023 7:51 AM REVIEW COORDINATOR 10/03/2023 8:13 AM REVIEW COORDINATOR Praveen Kaufman MD LAB - POINT OF CARE ORDERABLES Performing Organization Address City/[facility]/ZIP Co de Phone Number [facility] [address] [place] [address] [phone] * (ABNORMAL) GLUCOSE - POINT OF CARE (10/02/2023 8:56 PM REVIEW COORDINATOR) Glucose WB/POC 274(H) 70 - 106 mg/dL 10/03/2023 12:18 AM REVIEW COORDINATOR [facility] Specimen Type Cap Fingerstick 2023 12:18 AM REVIEW COORDINATOR [facility] Blood BLOOD SPECIMEN / Unknown 10/02/2023 8:56 PM REVIEW COORDINATOR 10/03/2023 12:18 AM REVIEW COORDINATOR Praveen Kaufman MD LAB - POINT OF CARE ORDERABLES [facility] [address] [place] [address] * (ABNORMAL) GLUCOSE - POINT OF CARE (10/02/2023 6:05 PM REVIEW COORDINATOR) Glucose WB/POC 165(H) 70 - 106 mg/dL 10/02/2023 6:11 PM REVIEW COORDINATOR [facility] Specimen Type Cap Fingerstick 2023 6:11 PM REVIEW COORDINATOR [facility] Blood BLOOD SPECIMEN / Unknown 10/02/2023 6:05 PM REVIEW COORDINATOR 10/02/2023 6:11 PM REVIEW COORDINATOR Praveen Kaufman MD LAB - POINT OF CARE ORDERABLES [facility] [address] [place] [address] * (ABNORMAL) GLUCOSE - POINT OF CARE (10/02/2023 4:25 PM REVIEW COORDINATOR) Glucose WB/POC 150(H) 70 - 106 mg/dL 10/03/2023 7:28 AM REVIEW COORDINATOR [facility] Specimen Type Cap Fingerstick 2023 7:28 AM REVIEW COORDINATOR [facility] Blood BLOOD SPECIMEN / Unknown 10/02/2023 4:25 PM REVIEW COORDINATOR 10/03/2023 7:28 AM REVIEW COORDINATOR Praveen Kaufman MD LAB - POINT OF CARE ORDERABLES Performing Organization Address [facility]/ZIP Co de Phone Number [facility] [address] [place] [address] [phone] * GLUCOSE - POINT OF CARE (10/02/2023 8:06 AM REVIEW COORDINATOR) Glucose WB/POC 104 70 - 106 mg/dL 10/02/2023 8:12 AM REVIEW COORDINATOR [facility] Specimen Type Cap Fingerstick 2023 8:12 AM REVIEW COORDINATOR [facility] Blood BLOOD SPECIMEN / Unknown 10/02/2023 8:06 AM REVIEW COORDINATOR 10/02/2023 8:12 AM REVIEW COORDINATOR Praveen Kaufman MD LAB - POINT OF CARE ORDERABLES Performing Organization Address [facility] Co de Phone Number [facility] [address] [place] [address] [phone] * (ABNORMAL) GLUCOSE - POINT OF CARE (10/01/2023 8:07 PM REVIEW COORDINATOR) Glucose WB/POC 205(H) 70 - 106 mg/dL 10/01/2023 8:13 PM REVIEW COORDINATOR [facility] Specimen Type Cap Fingerstick 2023 8:13 PM REVIEW COORDINATOR [facility] Blood BLOOD SPECIMEN / Unknown 10/01/2023 8:07 PM REVIEW COORDINATOR 10/01/2023 8:13 PM REVIEW COORDINATOR Praveen Kaufman MD LAB - POINT OF CARE ORDERABLES Performing Organization Address [facility]/ZIP Co de Phone Number [facility] [address] [place] [address] [phone] * (ABNORMAL) GLUCOSE - POINT OF CARE (10/01/2023 4:33 PM REVIEW COORDINATOR) Glucose WB/POC 130(H) 70 - 106 mg/dL 10/01/2023 4:47 PM REVIEW COORDINATOR [facility] Specimen Type Arterial 10/01/2023 4:47 PM REVIEW COORDINATOR [facility] Blood BLOOD SPECIMEN / Unknown 10/01/2023 4:33 PM REVIEW COORDINATOR 10/01/2023 4:47 PM REVIEW COORDINATOR Praveen Kaufman MD LAB - POINT OF CARE ORDERABLES Performing Organization Address [facility]/ZIP Co de Phone Number [facility] [address] [place] [address] [phone] * (ABNORMAL) GLUCOSE - POINT OF CARE (10/01/2023 11:23 AM REVIEW COORDINATOR) Glucose WB/POC 198(H) 70 - 106 mg/dL 10/01/2023 11:33 AM REVIEW COORDINATOR [facility] Specimen Type Cap Fingerstick 2023 11:33 AM REVIEW COORDINATOR [facility] Blood BLOOD SPECIMEN / Unknown 10/01/2023 11:23 AM REVIEW COORDINATOR 10/01/2023 11:33 AM REVIEW COORDINATOR Praveen Kaufman MD LAB - POINT OF CARE ORDERABLES Performing Organization Address [facility] Co de Phone Number [facility] [address] [place] [address] [phone] * (ABNORMAL) GLUCOSE - POINT OF CARE (10/01/2023 7:32 AM REVIEW COORDINATOR) Glucose WB/POC 115(H) 70 - 106 mg/dL 10/01/2023 7:41 AM REVIEW COORDINATOR [facility] Specimen Type Cap Fingerstick 2023 7:41 AM REVIEW COORDINATOR [facility] Blood BLOOD SPECIMEN / Unknown 10/01/2023 7:32 AM REVIEW COORDINATOR 10/01/2023 7:41 AM REVIEW COORDINATOR Praveen Kaufman MD LAB - POINT OF CARE ORDERABLES Performing Organization Address [facility]/ZIP Co de Phone Number [facility] [address] [place] [address] 54950 * (ABNORMAL) GLUCOSE - POINT OF CARE (09/30/2023 8:46 PM REVIEW COORDINATOR) Glucose WB/POC 152(H) 70 - 106 mg/dL 09/30/2023 8:56 PM REVIEW COORDINATOR [facility] Specimen Type Cap Fingerstick 2023 8:56 PM REVIEW COORDINATOR [facility] Blood BLOOD SPECIMEN / Unknown 09/30/2023 8:46 PM REVIEW COORDINATOR 09/30/2023 8:56 PM REVIEW COORDINATOR Praveen Kaufman MD LAB - POINT OF CARE ORDERABLES Performing Organization Address [facility] Co de Phone Number [facility] [address] [place] [address] 06484 * (ABNORMAL) GLUCOSE - POINT OF CARE (09/30/2023 3:51 PM REVIEW COORDINATOR) Glucose WB/POC 170(H) 70 - 106 mg/dL 09/30/2023 4:01 PM REVIEW COORDINATOR [facility] Specimen Type Cap Fingerstick 2023 4:01 PM REVIEW COORDINATOR [facility] Blood BLOOD SPECIMEN / Unknown 09/30/2023 3:51 PM REVIEW COORDINATOR 09/30/2023 4:01 PM REVIEW COORDINATOR Praveen Kaufman MD LAB - POINT OF CARE ORDERABLES Performing Organization Address [facility] Co de Phone Number [facility] [address] [place] [address] [phone] * (ABNORMAL) GLUCOSE - POINT OF CARE (09/30/2023 11:21 AM REVIEW COORDINATOR) Glucose WB/POC 194(H) 70 - 106 mg/dL 09/30/2023 11:45 AM REVIEW COORDINATOR [facility] Specimen Type Cap Fingerstick 2023 11:45 AM REVIEW COORDINATOR [facility] Blood BLOOD SPECIMEN / Unknown 09/30/2023 11:21 AM REVIEW COORDINATOR 09/30/2023 11:45 AM REVIEW COORDINATOR Praveen Kaufman MD LAB - POINT OF CARE ORDERABLES Performing Organization Address [facility] Co de Phone Number [facility] [address] [place] [address] [phone] * (ABNORMAL) GLUCOSE - POINT OF CARE (09/30/2023 7:36 AM REVIEW COORDINATOR) Glucose WB/POC 107(H) 70 - 106 mg/dL 09/30/2023 8:02 AM [facility] Specimen Type Cap Fingerstick 2023 8:02 AM [facility] Blood BLOOD SPECIMEN / Unknown 09/30/2023 7:36 AM REVIEW COORDINATOR 09/30/2023 8:02 AM REVIEW COORDINATOR Praveen Kaufman MD LAB - POINT OF CARE ORDERABLES Performing Organization Address [facility] Co de Phone Number [facility] [address] [place] [address] [phone] * (ABNORMAL) HEPATIC FUNCTION PANEL (09/30/2023 3:49 AM REVIEW COORDINATOR) Alkaline Phosphatase 76 40 - 150 U/L 09/30/2023 4:49 AM [facility] ALT 28 0 - 55 U/L 09/30/2023 4:49 AM [facility] AST 31 5 - 34 U/L 09/30/2023 4:49 AM [facility] Protein Total 5.8(L) 6.4 - 8.3 gm/dL 09/30/2023 4:49 AM [facility] Albumin 2.3(L) 3.4 - 5.0 gm/dL 09/30/2023 4:49 AM [facility] Bilirubin Total 0.5 0.2 - 1.2 mg/dL 09/30/2023 4:49 AM [facility] Bilirubin Direct 0.171 0.10 - 0.50 mg/dL 09/30/2023 4:49 AM [facility] Blood BLOOD SPECIMEN / Unknown Lab Venipuncture / Unknown 09/30/2023 3:49 AM REVIEW COORDINATOR 09/30/2023 3:56 AM REVIEW COORDINATOR Ashish Barnett MD LAB - CHEMIS TRY ORDERABLES Performing Organization Address [facility]/ZIP Co de Phone Number [facility] [address] [place] [address] [phone] * (ABNORMAL) GLUCOSE - POINT OF CARE (09/29/2023 8:02 PM REVIEW COORDINATOR) Glucose WB/POC 208(H) 70 - 106 mg/dL 09/29/2023 8:11 PM REVIEW COORDINATOR [facility] Specimen Type Cap Fingerstick 2023 8:11 PM REVIEW COORDINATOR [facility] Blood BLOOD SPECIMEN / Unknown 09/29/2023 8:02 PM REVIEW COORDINATOR 09/29/2023 8:11 PM REVIEW COORDINATOR Praveen Kaufman MD LAB - POINT OF CARE ORDERABLES [facility] [address] [place] [address] 93066 * (ABNORMAL) GLUCOSE - POINT OF CARE (09/29/2023 3:23 PM REVIEW COORDINATOR) Glucose WB/POC 171(H) 70 - 106 mg/dL 09/29/2023 3:36 PM REVIEW COORDINATOR [facility] Specimen Type Cap Fingerstick 2023 3:36 PM REVIEW COORDINATOR [facility] Blood BLOOD SPECIMEN / Unknown 09/29/2023 3:23 PM REVIEW COORDINATOR 09/29/2023 3:36 PM REVIEW COORDINATOR Praveen Kaufman MD LAB - POINT OF CARE ORDERABLES Performing Organization Address [facility]/ZIP Co de Phone Number [facility] [address] [place] [address] [phone] * (ABNORMAL) GLUCOSE - POINT OF CARE (09/29/2023 11:27 AM REVIEW COORDINATOR) Glucose WB/POC 160(H) 70 - 106 mg/dL 09/29/2023 3:48 PM REVIEW COORDINATOR [facility] Specimen Type Cap Fingerstick 2023 3:48 PM REVIEW COORDINATOR [facility] Blood BLOOD SPECIMEN / Unknown 09/29/2023 11:27 AM REVIEW COORDINATOR 09/29/2023 3:48 PM REVIEW COORDINATOR Praveen Kaufman MD LAB - POINT OF CARE ORDERABLES Performing Organization Address [facility]/ZIP Co de Phone Number [facility] [address] [place] [address] [phone] * (ABNORMAL) GLUCOSE - POINT OF CARE (09/29/2023 7:41 AM REVIEW COORDINATOR) Glucose WB/POC 119(H) 70 - 106 mg/dL 09/29/2023 9:03 AM REVIEW COORDINATOR [facility] Specimen Type Cap Fingerstick 2023 9:03 AM REVIEW COORDINATOR [facility] Blood BLOOD SPECIMEN / Unknown 09/29/2023 7:41 AM REVIEW COORDINATOR 09/29/2023 9:03 AM REVIEW COORDINATOR Praveen Kaufman MD LAB - POINT OF CARE ORDERABLES [facility] [address] [place] [address] [phone] * (ABNORMAL) GLUCOSE - POINT OF CARE (09/28/2023 7:47 PM REVIEW COORDINATOR) Glucose WB/POC 198(H) 70 - 106 mg/dL 09/28/2023 7:53 PM REVIEW COORDINATOR [facility] Specimen Type Cap Fingerstick 2023 7:53 PM REVIEW COORDINATOR [facility] Blood BLOOD SPECIMEN / Unknown 09/28/2023 7:47 PM REVIEW COORDINATOR 09/28/2023 7:53 PM REVIEW COORDINATOR Praveen Kaufman MD LAB - POINT OF CARE ORDERABLES Performing Organization Address [facility]/ZIP Co de Phone Number [facility] [address] [place] [address] [phone] * (ABNORMAL) GLUCOSE - POINT OF CARE (09/28/2023 4:31 PM REVIEW COORDINATOR) Glucose WB/POC 131(H) 70 - 106 mg/dL 09/28/2023 4:41 PM REVIEW COORDINATOR [facility] Specimen Type Cap Fingerstick 2023 4:41 PM REVIEW COORDINATOR [facility] Blood BLOOD SPECIMEN / Unknown 09/28/2023 4:31 PM REVIEW COORDINATOR 09/28/2023 4:41 PM REVIEW COORDINATOR Praveen Kaufman MD LAB - POINT OF CARE ORDERABLES [facility] [address] [place] [address] * (ABNORMAL) GLUCOSE - POINT OF CARE (09/28/2023 11:06 AM REVIEW COORDINATOR) Glucose WB/POC 155(H) 70 - 106 mg/dL 09/28/2023 11:16 AM REVIEW COORDINATOR [facility] Specimen Type Cap Fingerstick 2023 11:16 AM REVIEW COORDINATOR [facility] Blood BLOOD SPECIMEN / Unknown 09/28/2023 11:06 AM REVIEW COORDINATOR 09/28/2023 11:16 AM REVIEW COORDINATOR Praveen Kaufman MD LAB - POINT OF CARE ORDERABLES [facility] [address] [place] [address] * (ABNORMAL) GLUCOSE - POINT OF CARE (09/28/2023 7:44 AM REVIEW COORDINATOR) Glucose WB/POC 149(H) 70 - 106 mg/dL 09/28/2023 7:54 AM REVIEW COORDINATOR [facility] Specimen Type Cap Fingerstick 2023 7:54 AM REVIEW COORDINATOR [facility] Blood BLOOD SPECIMEN / Unknown 09/28/2023 7:44 AM REVIEW COORDINATOR 09/28/2023 7:54 AM REVIEW COORDINATOR Praveen Kaufman MD LAB - POINT OF CARE ORDERABLES [facility] [address] [place] [address] * (ABNORMAL) GLUCOSE - POINT OF CARE (09/27/2023 10:05 PM REVIEW COORDINATOR) Glucose WB/POC 137(H) 70 - 106 mg/dL 09/27/2023 10:15 PM REVIEW COORDINATOR [facility] Specimen Type Cap Fingerstick 2023 10:15 PM REVIEW COORDINATOR [facility] Blood BLOOD SPECIMEN / Unknown 09/27/2023 10:05 PM REVIEW COORDINATOR 09/27/2023 10:15 PM REVIEW COORDINATOR Praveen Kaufman MD LAB - POINT OF CARE ORDERABLES Performing Organization Address [facility]/ZIP Co de Phone Number [facility] [address] [place] [address] [phone] * (ABNORMAL) GLUCOSE - POINT OF CARE (09/27/2023 4:08 PM REVIEW COORDINATOR) Glucose WB/POC 201(H) 70 - 106 mg/dL 09/27/2023 4:14 PM REVIEW COORDINATOR [facility] Specimen Type Cap Fingerstick 2023 4:14 PM REVIEW COORDINATOR [facility] Blood BLOOD SPECIMEN / Unknown 09/27/2023 4:08 PM REVIEW COORDINATOR 09/27/2023 4:14 PM REVIEW COORDINATOR Praveen Kaufman MD LAB - POINT OF CARE ORDERABLES Performing Organization Address [facility] Co de Phone Number [facility] [address] [place] [address] [phone] * (ABNORMAL) GLUCOSE - POINT OF CARE (09/27/2023 12:20 PM REVIEW COORDINATOR) Glucose WB/POC 130(H) 70 - 106 mg/dL 09/27/2023 12:26 PM REVIEW COORDINATOR [facility] Specimen Type Venous 09/27/2023 12:26 PM REVIEW COORDINATOR [facility] Blood BLOOD SPECIMEN / Unknown 09/27/2023 12:20 PM REVIEW COORDINATOR 09/27/2023 12:26 PM REVIEW COORDINATOR Praveen Kaufman MD LAB - POINT OF CARE ORDERABLES Performing Organization Address [facility]/ZIP Co de Phone Number [facility] [address] [place] [address] [phone] * CULTURE WOUND+GRAM STAIN (09/27/2023 11:21 AM REVIEW COORDINATOR) Culture No growth MONALISA 09/30/2023 3:31 AM REVIEW COORDINATOR [facility] Gram Stain Light Polymorphonuclear cells 09/30/2023 3:31 AM REVIEW COORDINATOR [facility] Gram Stain No organisms seen 024 3:31 AM REVIEW COORDINATOR [facility] Microbiology ENTIRE HIP REGION / Unknown Collection / Unknown 09/27/2023 11:21 AM REVIEW COORDINATOR 09/27/2023 12:32 PM REVIEW COORDINATOR Comment:Pre-op diagnosis: Diagnosis unknown [R69] Narrative [facility] - 09/30/2023 3:31 AM REVIEW COORDINATOR Surgical Description: Right Hip Torrey Lafleur MD LAB - MICROBIOLOGY ORDERABLES Performing Organization Address City/[facility]/ZIP Co de Phone Number [facility] [address] [place] [address], [facility] [phone] * CULTURE ANAEROBE (09/27/2023 11:21 AM REVIEW COORDINATOR) Culture No anaerobic organisms isolated MONALISA 10/02/2023 1:25 PM REVIEW COORDINATOR [facility] Microbiology E[place]IP REGION / Unknown 09/27/2023 11:21 AM REVIEW COORDINATOR 09/27/2023 12:32 PM REVIEW COORDINATOR Comment:Pre-op diagnosis: Diagnosis unknown [R69] Narrative [facility] - 10/02/2023 1:25 PM REVIEW COORDINATOR Surgical Description: Right Hip Torrey Lafleur MD LAB - MICROBIOLOGY ORDERABLES Performing Organization Address City/[facility]/ZIP Co de Phone Number [facility] [address] [place] [address], [facility] [phone] * (ABNORMAL) GLUCOSE - POINT OF CARE (09/27/2023 7:50 AM REVIEW COORDINATOR) Glucose WB/POC 127(H) 70 - 106 mg/dL 09/27/2023 7:56 AM REVIEW COORDINATOR [facility] Specimen Type Cap Fingerstick 2023 7:56 AM REVIEW COORDINATOR [facility] Blood BLOOD SPECIMEN / Unknown 09/27/2023 7:50 AM REVIEW COORDINATOR 09/27/2023 7:56 AM REVIEW COORDINATOR Praveen Kaufman MD LAB - POINT OF CARE ORDERABLES [facility] [address] [place] [address] * (ABNORMAL) GLUCOSE - POINT OF CARE (09/26/2023 8:15 PM REVIEW COORDINATOR) Glucose WB/POC 128(H) 70 - 106 mg/dL 09/26/2023 8:22 PM REVIEW COORDINATOR [facility] Specimen Type Cap Fingerstick 2023 8:22 PM REVIEW COORDINATOR [facility] Blood BLOOD SPECIMEN / Unknown 09/26/2023 8:15 PM REVIEW COORDINATOR 09/26/2023 8:22 PM REVIEW COORDINATOR Praveen Kaufman MD LAB - POINT OF CARE ORDERABLES Performing Organization Address City/[facility]/ZIP Co de Phone Number [facility] [address] [place] [address] [phone] * (ABNORMAL) GLUCOSE - POINT OF CARE (09/26/2023 4:31 PM REVIEW COORDINATOR) Glucose WB/POC 111(H) 70 - 106 mg/dL 09/26/2023 4:41 PM REVIEW COORDINATOR [facility] Specimen Type Cap Fingerstick 2023 4:41 PM REVIEW COORDINATOR [facility] Blood BLOOD SPECIMEN / Unknown 09/26/2023 4:31 PM REVIEW COORDINATOR 09/26/2023 4:41 PM REVIEW COORDINATOR Praveen Kaufman MD LAB - POINT OF CARE ORDERABLES Performing Organization Address [facility] Co de Phone Number [facility] [address] [place] [address] [phone] * (ABNORMAL) GLUCOSE - POINT OF CARE (09/26/2023 11:40 AM REVIEW COORDINATOR) Glucose WB/POC 115(H) 70 - 106 mg/dL 09/26/2023 11:49 AM REVIEW COORDINATOR [facility] Specimen Type Cap Fingerstick 2023 11:49 AM REVIEW COORDINATOR [facility] Blood BLOOD SPECIMEN / Unknown 09/26/2023 11:40 AM REVIEW COORDINATOR 09/26/2023 11:49 AM REVIEW COORDINATOR Praveen Kaufman MD LAB - POINT OF CARE ORDERABLES Performing Organization Address City/[facility]/ZIP Co de Phone Number [facility] [address] [place] [address] [phone] * (ABNORMAL) VANCOMYCIN LEVEL TROUGH (09/26/2023 11:00 AM REVIEW COORDINATOR) Pathologist [facility] Vancomycin Trough 9.8(L) 10.0 - 20.0 ug/mL 09/26/2023 11:58 AM REVIEW COORDINATOR [facility] Blood BLOOD SPECIMEN / Unknown Lab Venipuncture / Unknown 09/26/2023 11:00 AM REVIEW COORDINATOR 09/26/2023 11:25 AM REVIEW COORDINATOR Praveen Kaufman MD LAB - CHEMISTRY BENJA DICK Performing Organization Address City/[facility]/ZIP Co de Phone Number [facility] [address] [place] [phone] * (ABNORMAL) GLUCOSE - POINT OF CARE (09/26/2023 7:38 AM REVIEW COORDINATOR) [facility] Glucose WB/POC 113(H) 70 - 106 mg/dL 09/26/2023 7:57 AM REVIEW COORDINATOR [facility] Specimen Type Cap Fingerstick 2023 7:57 AM REVIEW COORDINATOR [facility] Blood BLOOD SPECIMEN / Unknown 09/26/2023 7:38 AM REVIEW COORDINATOR 09/26/2023 7:57 AM REVIEW COORDINATOR Pravene Kaufman MD LAB - POINT OF CARE ORDERABLES Performing Organization Address [facility] Co de Phone Number [facility] [address] [place] [phone] * (ABNORMAL) VANCOMYCIN LEVEL PEAK (09/26/2023 4:55 AM REVIEW COORDINATOR) Pathologist [facility] Vancomycin Peak 18.3(L) 25.0 - 40.0 ug/mL 09/26/2023 5:37 AM REVIEW COORDINATOR [facility] Blood BLOOD SPECIMEN / Unknown Lab Venipuncture / Unknown 09/26/2023 4:55 AM REVIEW COORDINATOR 09/26/2023 5:18 AM REVIEW COORDINATOR Praveen Kaufman MD LAB - CHEMISTRY BENJA DICK Performing Organization Address City/[facility]/ZIP Co de Phone Number [facility] [address] [place] [phone] * (ABNORMAL) GLUCOSE - POINT OF CARE (09/25/2023 9:55 PM REVIEW COORDINATOR) Glucose WB/POC 170(H) 70 - 106 mg/dL 09/26/2023 4:55 AM REVIEW COORDINATOR [facility] Specimen Type Cap Fingerstick 2023 4:55 AM REVIEW COORDINATOR [facility] Blood BLOOD SPECIMEN / Unknown 09/25/2023 9:55 PM REVIEW COORDINATOR 09/26/2023 4:55 AM REVIEW COORDINATOR Praveen Kaufman MD LAB - POINT OF CARE ORDERABLES [facility] [address] [place] [phone] * (ABNORMAL) GLUCOSE - POINT OF CARE (09/25/2023 4:17 PM REVIEW COORDINATOR) Glucose WB/POC 148(H) 70 - 106 mg/dL 09/25/2023 4:43 PM REVIEW COORDINATOR [facility] Specimen Type Cap Fingerstick 2023 4:43 PM REVIEW COORDINATOR [facility] Blood BLOOD SPECIMEN / Unknown 09/25/2023 4:17 PM REVIEW COORDINATOR 09/25/2023 4:43 PM REVIEW COORDINATOR Praveen Kaufman MD LAB - POINT OF CARE ORDERABLES [facility] [address] [place] [phone] * (ABNORMAL) GLUCOSE - POINT OF CARE (09/25/2023 12:00 PM REVIEW COORDINATOR) Glucose WB/POC 208(H) 70 - 106 mg/dL 09/25/2023 4:14 PM REVIEW COORDINATOR [facility] Specimen Type Cap Fingerstick 2023 4:14 PM REVIEW COORDINATOR [facility] Blood BLOOD SPECIMEN / Unknown 09/25/2023 12:00 PM REVIEW COORDINATOR 09/25/2023 4:14 PM REVIEW COORDINATOR Praveen Kaufman MD LAB - POINT OF CARE ORDERABLES [facility] [address] [place] [address] * CULTURE BLOOD (09/25/2023 10:45 AM REVIEW COORDINATOR) Culture No growth day 5 MONALISA 09/30/2023 2:01 PM REVIEW COORDINATOR [facility] Blood PERIPHERAL BLOOD / Unknown Lab Venipuncture / Unknown 09/25/2023 10:45 AM REVIEW COORDINATOR 09/25/2023 11:04 AM REVIEW COORDINATOR Ashish Barnett MD LAB - MICROB IOLOGY ORDERABLES Performing Organization Address [facility]/ZIP Co de Phone Number [facility] [address] [place] [address], [facility] [phone] * CULTURE BLOOD (09/25/2023 10:41 AM REVIEW COORDINATOR) Culture No growth day 5 MONALISA 09/30/2023 2:01 PM REVIEW COORDINATOR [facility] Blood PERIPHERAL BLOOD / Unknown Lab Venipuncture / Unknown 09/25/2023 10:41 AM REVIEW COORDINATOR 09/25/2023 11:05 AM REVIEW COORDINATOR Ashish Barnett MD LAB - MICROB IOLOGY ORDERABLES Performing Organization Address [facility]/ZIP Co de Phone Number [facility] [address] [place] [address], [facility] [phone] * (ABNORMAL) GLUCOSE - POINT OF CARE (09/25/2023 7:50 AM REVIEW COORDINATOR) Glucose WB/POC 153(H) 70 - 106 mg/dL 09/25/2023 8:00 AM REVIEW COORDINATOR [facility] Specimen Type Cap Fingerstick 2023 8:00 AM REVIEW COORDINATOR [facility] Blood BLOOD SPECIMEN / Unknown 09/25/2023 7:50 AM REVIEW COORDINATOR 09/25/2023 8:00 AM REVIEW COORDINATOR Praveen Kaufman MD LAB - POINT OF CARE ORDERABLES Performing Organization Address City/[facility]/ZIP Co de Phone Number [facility] [address], [place] [phone] * (ABNORMAL) CBC W/O DIFFERENTIAL (09/25/2023 1:41 AM REVIEW COORDINATOR) Pathologist [facility] WBC 9.9 4.0 - 10.7 x10E9/L 09/25/2023 2:46 AM REVIEW COORDINATOR [facility] RBC Count 3.49(L) 4.30 - 5.80 x10E12/L 09/25/2023 2:46 AM [facility] Hemoglobin 10.8(L) 13.3 - 17.5 g/dL 09/25/2023 2:46 AM [facility] Hematocrit 33.6(L) 38.7 - 51.1 % 09/25/2023 2:46 AM [facility] MCV 96.3 80.0 - 98.0 fL 09/25/2023 2:46 AM [facility] MCH 30.9 26.7 - 33.6 pg 09/25/2023 2:46 AM [facility] MCHC 32.1 31.7 - 36.3 g/dL 09/25/2023 2:46 AM [facility] RDW-CV 13.6 11.3 - 14.8 % 09/25/2023 2:46 AM [facility] Platelet Count 165 150 - 420 x10E9/L 09/25/2023 2:46 AM [facility] MPV 9.4 7.8 - 11.4 fL 09/25/2023 2:46 AM [facility] Blood BLOOD SPECIMEN / Unknown Lab Venipuncture / Unknown 09/25/2023 1:41 AM REVIEW COORDINATOR 09/25/2023 2:25 AM REVIEW COORDINATOR Sarah Parsons ADMINISTRATIVE OFFICE MANAGER-JAVA MANAGER LAB - HEMATOLO GY ORDERABLES [facility] [address], [place] [phone] * (ABNORMAL) BASIC METABOLIC PANEL (CALCIUM TOTAL) (09/25/2023 1:41 AM REVIEW COORDINATOR) Pathologist [facility] Glucose 182(H) 70 - 105 mg/dL 09/25/2023 3:12 AM [facility] Sodium 138 136 - 145 mmol/L 09/25/2023 3:12 AM [facility] Potassium 4.0 3.5 - 5.1 mmol/L 09/25/2023 3:12 AM [facility] Chloride 106 98 - 107 mmol/L 09/25/2023 3:12 AM [facility] CO2 22 22 - 29 mmol/L 09/25/2023 3:12 AM [facility] Calcium 8.6 8.4 - 10.4 mg/dL 09/25/2023 3:12 AM [facility] Anion Gap 10 6 - 16 mmol/L 09/25/2023 3:12 AM [facility] BUN 14 7 - 26 mg/dL 09/25/2023 3:12 AM [facility] Creatinine 0.88 0.72 - 1.25 mg/dL 09/25/2023 3:12 AM [facility] eGFR by CKD-EPI >90 >=90 mL/min/1.7 3 m2 09/25/2023 3:12 AM [facility] Blood BLOOD SPECIMEN / Unknown Lab Venipuncture / Unknown 09/25/2023 1:41 AM REVIEW COORDINATOR 09/25/2023 2:25 AM [facility] Sarah Edmondsuri ADMINISTRATIVE OFFICE MANAGER-JAVA MANAGER LAB - CHEMISTR Y ORDERABLES Performing Organization Address City/State/[facility] Co de Phone Number [facility] [address] [place] [address] [phone] * (ABNORMAL) HEMOGLOBIN A1C (09/25/2023 1:41 AM [facility]) Hemoglobin A1c 6.4(H) <5.7 % 09/25/2023 3:16 AM [facility] Estimated Average Glucose 137 mg/dL 09/25/2023 3:16 AM [facility] Blood BLOOD SPECIMEN / Unknown Lab Venipuncture / Unknown 09/25/2023 1:41 AM REVIEW COORDINATOR 09/25/2023 2:25 AM [facility] Narrative [facility] - 09/25/2023 3:16 AM REVIEW COORDINATOR HbA1c Interpretation: Normal: < 5.7% Pre-diabetes: 5.7-6.4% [...] Glycohemoglobin Standardization Program (NGSP) certified method. Sarah POLANCO LAB - CHEMISTR Y ORDERABLES Performing Organization Address City/[facility]/ZIP Co de Phone Number [facility] [address] [place] [phone] * (ABNORMAL) GLUCOSE - POINT OF CARE (09/24/2023 10:51 PM REVIEW COORDINATOR) [facility] Glucose WB/POC 135(H) 70 - 106 mg/dL 09/24/2023 10:59 PM REVIEW COORDINATOR [facility] Specimen Type Cap Fingerstick 2023 10:59 PM REVIEW COORDINATOR [facility] Blood BLOOD SPECIMEN / Unknown 09/24/2023 10:51 PM REVIEW COORDINATOR 09/24/2023 10:59 PM REVIEW COORDINATOR Bryant Jones MD LAB - POINT OF CARE ORDERABLES Performing Organization Address [facility]/ZIP Co de Phone Number [facility] [address] [place] [phone] * (ABNORMAL) GLUCOSE - POINT OF CARE (09/24/2023 9:50 PM REVIEW COORDINATOR) Glucose WB/POC 140(H) 70 - 106 mg/dL 09/26/2023 10:03 AM REVIEW COORDINATOR [facility] Specimen Type Cap Fingerstick 2023 10:03 AM REVIEW COORDINATOR [facility] Blood BLOOD SPECIMEN / Unknown 09/24/2023 9:50 PM REVIEW COORDINATOR 09/26/2023 10:03 AM REVIEW COORDINATOR Bryant Jones MD LAB - POINT OF CARE ORDERABLES [facility] [address] [place] [address] * CULTURE FUNGUS OTHER+FUNGUS SMEAR (09/24/2023 9:01 PM REVIEW COORDINATOR) Culture No fungus isolated MONALISA 10/22/2023 6:59 AM CDT [facility] Fungus Stain No yeast or hyphae seen 10/22/2023 6:59 AM CDT [facility] Microbiology TISSUE SPECIMEN / Unknown Collection / Unknown 09/24/2023 9:01 PM REVIEW COORDINATOR 09/24/2023 10:11 PM REVIEW COORDINATOR Comment:Pre-op diagnosis: Diagnosis unknown [R69] Narrative [facility] - 10/22/2023 6:59 AM CDT Surgical Description: Right Hip Tissue Torrey Lafleur MD LAB - MICROBIOLOGY ORDERABLES Performing Organization Address City/[facility]/ZIP Co de Phone Number [facility] [address] [place], [place] [phone] [place] [address] * (ABNORMAL) CULTURE TISSUE+GRAM STAIN (09/24/2023 9:01 PM REVIEW COORDINATOR) Culture Rare Streptococcus agalactiae (Group B)(AA) MONALISA 09/28/2023 7:22 AM REVIEW COORDINATOR [facility] Gram Stain Rare Polymorphonuclear cells 09/28/2023 7:22 AM REVIEW COORDINATOR [facility] Gram Stain No organisms seen 024 7:22 AM REVIEW COORDINATOR [facility] Microbiology TISSUE SPECIMEN / Unknown Collection / Unknown 09/24/2023 9:01 PM REVIEW COORDINATOR 09/24/2023 10:11 PM REVIEW COORDINATOR Comment:Pre-op diagnosis: Diagnosis unknown [R69] Narrative [facility] - 09/28/2023 7:22 AM REVIEW COORDINATOR Susceptibility testing of penicillin, other beta-lactam antibiotics, and vancomycin is not necessary for beta-hemolytic streptococci groups A,B,C and G because resistant strains have not been recognized. Refer to previously reported susceptibility testing, specimen number: [id number]. Surgical Description: Right Hip Tissue Torrey Lafleur MD LAB - MICROBIOLOGY ORDERABLES Performing Organization Address City/[facility] Co de Phone Number [facility] [address] [place] [address], [facility] [phone] * CULTURE AFB+SMEAR (09/24/2023 9:01 PM REVIEW COORDINATOR) Culture No acid-fast bacillus isolated 11/05/2023 6:39 AM CDT [facility] AFB Smear No acid-fast bacilli seen 11/05/2023 6:39 AM CDT [facility] Microbiology TISSUE SPECIMEN / Unknown Collection / Unknown 09/24/2023 9:01 PM REVIEW COORDINATOR 09/24/2023 10:11 PM REVIEW COORDINATOR Comment:Pre-op diagnosis: Diagnosis unknown [R69] Narrative [facility] - 11/05/2023 6:39 AM CDT Surgical Description: Right Hip Tissue Torrey Lafleur MD LAB - MICROBIOLOGY ORDERABLES Performing Organization Address [facility] de Phone Number [facility] [address] [place] [address], [facility] [phone] * CULTURE ANAEROBE (09/24/2023 9:01 PM REVIEW COORDINATOR) Culture No anaerobic organisms isolated to date. MONALISA 09/30/2023 2:53 PM REVIEW COORDINATOR [facility] Microbiology TISSUE SPECIMEN / Unknown Collection / Unknown 09/24/2023 9:01 PM REVIEW COORDINATOR 09/24/2023 10:11 PM REVIEW COORDINATOR Comment:Pre-op diagnosis: Diagnosis unknown [R69] Narrative [facility] - 09/30/2023 2:53 PM REVIEW COORDINATOR Surgical Description: Right Hip Tissue Torrey Lafleur MD LAB - MICROBIOLOGY ORDERABLES Performing Organization Address [facility]/ZIP Co de Phone Number [facility] [address] [place] [address], [facility] [phone] * CULTURE FUNGUS OTHER+FUNGUS SMEAR (09/24/2023 8:58 PM REVIEW COORDINATOR) Culture No fungus isolated MONALISA 10/22/2023 6:59 AM CDT [facility] Fungus Stain No yeast or hyphae seen 10/22/2023 6:59 AM CDT [facility] Microbiology ENTIRE HIP REGION / Unknown 09/24/2023 8:58 PM REVIEW COORDINATOR 09/24/2023 10:17 PM REVIEW COORDINATOR Comment:Pre-op diagnosis: Diagnosis unknown [R69] Narrative [facility] - 10/22/2023 6:59 AM CDT Surgical Description: Right Hip Swab Torrey Lafleur MD LAB - MICROBIOLOGY ORDERABLES Performing Organization Address [facility] Co de Phone Number [facility] [address] [place] [address], [facility] [phone] * (ABNORMAL) CULTURE TISSUE+GRAM STAIN (09/24/2023 8:58 PM REVIEW COORDINATOR) Culture Light Streptococcus agalactiae (Group B)(AA) MONALISA 09/28/2023 4:40 AM REVIEW COORDINATOR [facility] Gram Stain Heavy Red blood cells 09/28/2023 4:40 AM REVIEW COORDINATOR [facility] Gram Stain Moderate Polymorphonuclear cells 09/28/2023 4:40 AM REVIEW COORDINATOR [facility] Gram Stain No organisms seen 024 4:40 AM REVIEW COORDINATOR [facility] Microbiology ENTIRE HIP REGION / Unknown 09/24/2023 8:58 PM REVIEW COORDINATOR 09/24/2023 10:17 PM REVIEW COORDINATOR Comment:Pre-op diagnosis: Diagnosis unknown [R69] Narrative [facility] - 09/28/2023 4:40 AM REVIEW COORDINATOR Susceptibility testing of penicillin, other beta-lactam antibiotics, and vancomycin is not necessary for beta-hemolytic streptococci groups A,B,C and G because resistant strains have not been recognized. Surgical Description: Right Hip Swab Organism Antibiotic Method Susceptibility Streptococcus agalactiae (Group B) Ampicillin MONALISA <=0.25 ug/mL: Susceptible Streptococcus agalactiae (Group B) Cefotaxime MONALISA <=0.12 ug/mL: Susceptible Streptococcus agalactiae (Group B) Ceftriaxone MONALISA <=0.12 ug/mL: Susceptible Streptococcus agalactiae (Group B) Clindamycin MONALISA >=1 ug/mL: Resistant Streptococcus agalactiae (Group B) Erythromycin MONALISA >=8 ug/mL: Resistant Streptococcus agalactiae (Group B) Inducible Clindamycin Resistance MONALISA NEG ug/mL: Neg Streptococcus agalactiae (Group B) Penicillin G MONALISA <=0.06 ug/mL: Susceptible Streptococcus agalactiae (Group B) Vancomycin MONALISA 0.25 ug/mL: Susceptible Torrey Lafleur MD LAB - MICROBIOLOGY ORDERABLES Performing Organization Address [facility] Co de Phone Number [facility] [address] [place] [address], [facility] [phone] * CULTURE AFB+SMEAR (09/24/2023 8:58 PM REVIEW COORDINATOR) Culture No acid-fast bacillus isolated 11/05/2023 6:39 AM CDT [facility] AFB Smear No acid-fast bacilli seen 11/05/2023 6:39 AM T [facility] Microbiology ENTIRE HIP REGION / Unknown 09/24/2023 8:58 PM REVIEW COORDINATOR 09/24/2023 10:17 PM REVIEW COORDINATOR Comment:Pre-op diagnosis: Diagnosis unknown [R69] Narrative [facility] - 11/05/2023 6:39 AM CDT Surgical Description: Right Hip Swab Torrey Lafleur MD LAB - MICROBIOLOGY ORDERABLES Performing Organization Address City/[facility] Co de Phone Number [facility] [address] [place] [address], [facility] [phone] * CULTURE ANAEROBE (09/24/2023 8:58 PM REVIEW COORDINATOR) Culture No anaerobic organisms isolated to date. MONALISA 09/30/2023 2:53 PM REVIEW COORDINATOR [facility] Microbiology ENTIRE HIP REGION / Unknown 09/24/2023 8:58 PM REVIEW COORDINATOR 09/24/2023 10:17 PM REVIEW COORDINATOR Comment:Pre-op diagnosis: Diagnosis unknown [R69] Narrative [facility] - 09/30/2023 2:53 PM REVIEW COORDINATOR Surgical Description: Right Hip Swab Torrey Lafleur MD LAB - MICROBIOLOGY ORDERABLES Performing Organization Address [facility] Co de Phone Number [facility] [address] [place] [phone] [place] [address] * FL GUIDED NEEDLE PLACEMENT (09/24/2023 8:45 PM REVIEW COORDINATOR) Narrative [facility] - 09/25/2023 3:44 PM REVIEW COORDINATOR See Notes. Drew Lerma DO FLUOROSCOPY ORD ERABLES Performing Organization Address [facility] Co de Phone Number [facility] [address] [place] [phone] * PATHOLOGY SMEAR BODY FLUID (09/24/2023 8:28 PM REVIEW COORDINATOR) Path Review Fluid Confirmed 09/25/2023 2:14 PM REVIEW COORDINATOR [facility] Fluid SYNOVIAL FLUID / Unknown Collection / Unknown 09/24/2023 8:28 PM REVIEW COORDINATOR 09/24/2023 10:10 PM REVIEW COORDINATOR Narrative [facility] - 09/25/2023 2:14 PM REVIEW COORDINATOR Final Diagnosis- Synovial fluid, right hip, aspiration time of arthroplasty: 1. 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 Test Performed By: Torrey Vargas MD 09/25/2023 ??2:06 PM Torrey Lafleur MD LAB - PATHOLOGY/CYT OLOGY ORDERABLES Performing Organization Address [facility] Co de Phone Number [facility] [address] [place] [phone] * DIFFERENTIAL MANUAL FLUID (09/24/2023 8:28 PM REVIEW COORDINATOR) Fluid Source Synovial 09/25/2023 2:14 PM REVIEW COORDINATOR [facility] Body Fluid Total Cell Count 100 x10E6/L 09/25/2023 2:14 PM REVIEW COORDINATOR [facility] Neutrophils Fluid Percent 81 % 09/25/2023 2:14 PM REVIEW COORDINATOR [facility] Lymphocytes Fluid Percent 17 % 09/25/2023 2:14 PM REVIEW COORDINATOR [facility] Macrophages Fluid Percent 2 % 09/25/2023 2:14 PM REVIEW COORDINATOR [facility] Fluid SYNOVIAL FLUID / Unknown Collection / Unknown 09/24/2023 8:28 PM REVIEW COORDINATOR 09/24/2023 10:10 PM REVIEW COORDINATOR Narrative [facility] - 09/25/2023 2:14 PM REVIEW COORDINATOR No reference ranges established for body fluid differential cell counts. ??The test results must be integrated into the clinical context for interpretation. Torrey Lafleur MD LAB - BODY FLUID OR DERABLES Performing Organization Address [facility] Co de Phone Number [facility] [address] [place] [phone] * CRYSTAL IDENTIFICATION FLUID (09/24/2023 8:28 PM REVIEW COORDINATOR) Fluid Type Synovial 09/24/2023 11:04 PM REVIEW COORDINATOR [facility] Crystals Fluid None None 09/24/2023 11:04 PM REVIEW COORDINATOR [facility] Fluid SYNOVIAL FLUID / Unknown Collection / Unknown 09/24/2023 8:28 PM REVIEW COORDINATOR 09/24/2023 10:10 PM REVIEW COORDINATOR Comment:Pre-op diagnosis: Diagnosis unknown [R69] Torrey Lafleur MD LAB - BODY FLUID OR DERABLES Performing Organization Address [facility] Co de Phone Number [facility] [address] [place] [phone] * (ABNORMAL) CELL COUNT W DIFFERENTIAL FLUID (09/24/2023 8:28 PM REVIEW COORDINATOR) Fluid Source Synovial 09/25/2023 1:47 AM REVIEW COORDINATOR [facility] Fluid Appearance TURBID 09/25/2023 1:47 AM REVIEW COORDINATOR [facility] Fluid Color OTHER 09/25/2023 1:47 AM REVIEW COORDINATOR [facility] Total Nucleated Cells Fluid 98,920(H) <=200 x10E6/L 09/25/2023 1:47 AM REVIEW COORDINATOR [facility] RBC Count Fluid 40,000 Reference Range Not Established x10E6/L 09/25/2023 1:47 AM REVIEW COORDINATOR [facility] Fluid SYNOVIAL FLUID / Unknown Collection / Unknown 09/24/2023 8:28 PM REVIEW COORDINATOR 09/24/2023 10:10 PM REVIEW COORDINATOR Comment:Pre-op diagnosis: Diagnosis unknown [R69] Narrative [facility] - 09/25/2023 1:47 AM REVIEW COORDINATOR No reference ranges established for body fluid cell counts. Any reference ranges provided are derived from published literature. The test results must be integrated into the clinical context for interpretation. Torrey Lafleur MD LAB - BODY FLUID OR DERABLES Performing Organization Address City/[facility]/ZIP Co de Phone Number [facility] [address] [place] [address] * CULTURE FUNGUS OTHER+FUNGUS SMEAR (09/24/2023 8:27 PM REVIEW COORDINATOR) Culture No fungus isolated MONALISA 10/22/2023 6:59 AM CDT [facility] Fungus Stain No yeast or hyphae seen 10/22/2023 6:59 AM CDT [facility] Microbiology SYNOVIAL FLUID / Unknown Collection / Unknown 09/24/2023 8:27 PM REVIEW COORDINATOR 09/24/2023 10:12 PM REVIEW COORDINATOR Comment:Pre-op diagnosis: Diagnosis unknown [R69] Torrey Lafleur MD LAB - MICROBIOLOGY ORDERABLES [facility] [address] [place] [phone] * (ABNORMAL) CULTURE FLUID+GRAM STAIN (09/24/2023 8:27 PM REVIEW COORDINATOR) Culture Rare Streptococcus agalactiae (Group B)(AA) MONALISA 09/28/2023 7:20 AM REVIEW COORDINATOR [facility] Gram Stain Heavy Polymorphonuclear cells 09/28/2023 7:20 AM REVIEW COORDINATOR [facility] Gram Stain No organisms seen 024 7:20 AM REVIEW COORDINATOR [facility] Microbiology SYNOVIAL FLUID / Unknown Collection / Unknown 09/24/2023 8:27 PM REVIEW COORDINATOR 09/24/2023 10:12 PM REVIEW COORDINATOR Comment:Pre-op diagnosis: Diagnosis unknown [R69] Narrative [facility] - 09/28/2023 7:20 AM REVIEW COORDINATOR Susceptibility testing of penicillin, other beta-lactam antibiotics, and vancomycin is not necessary for beta-hemolytic streptococci groups A,B,C and G because resistant strains have not been recognized. Refer to previously reported susceptibility testing, specimen number: [id number]. Torrey Lafleur MD LAB - MICROBIOLOGY ORDERABLES Performing Organization Address City/[facility] Co de Phone Number [facility] [address] [place] [address], [facility] [phone] * CULTURE AFB+SMEAR (09/24/2023 8:27 PM REVIEW COORDINATOR) Culture No acid-fast bacillus isolated 11/05/2023 6:39 AM CDT [facility] AFB Smear No acid-fast bacilli seen 11/05/2023 6:39 AM T [facility] Microbiology SYNOVIAL FLUID / Unknown Collection / Unknown 09/24/2023 8:27 PM REVIEW COORDINATOR 09/24/2023 10:12 PM REVIEW COORDINATOR Comment:Pre-op diagnosis: Diagnosis unknown [R69] Torrey Lafleur MD LAB - MICROBIOLOGY ORDERABLES Performing Organization Address City/[facility] Co de Phone Number [facility] [address] [place] [address], [facility] [phone] * CULTURE ANAEROBE (09/24/2023 8:27 PM REVIEW COORDINATOR) Culture No anaerobic organisms isolated to date. MONALISA 09/30/2023 2:53 PM REVIEW COORDINATOR [facility] [facility] Microbiology SYNOVIAL FLUID / Unknown Collection / Unknown 09/24/2023 8:27 PM REVIEW COORDINATOR 09/24/2023 10:12 PM REVIEW COORDINATOR Comment:Pre-op diagnosis: Diagnosis unknown [R69] Torrey Lafleur MD LAB - MICROBIOLOGY ORDERABLES [facility] [address] [place] [address], [facility] [phone] * (ABNORMAL) GLUCOSE - POINT OF CARE (09/24/2023 6:06 PM REVIEW COORDINATOR) Glucose WB/POC 118(H) 70 - 106 mg/dL 09/24/2023 8:10 PM REVIEW COORDINATOR [facility] Specimen Type Cap Fingerstick 2023 8:10 PM REVIEW COORDINATOR [facility] Blood BLOOD SPECIMEN / Unknown 09/24/2023 6:06 PM REVIEW COORDINATOR 09/24/2023 8:10 PM REVIEW COORDINATOR Bryant Jones MD LAB - POINT OF CARE ORDERABLES [facility] [address] [place] [address] * CT LOWER EXT RIGHT W CONTRAST (09/24/2023 2:41 PM REVIEW COORDINATOR) Anatomical Region Laterality Modality Lower Extremity Computed Tomogra phy 09/24/2023 2:53 PM REVIEW COORDINATOR Impressions 09/24/2023 2:57 PM REVIEW COORDINATOR IMPRESSION: Fluid or soft tissue thickening lateral to the right greater trochanter without rim-enhancing fluid collection. > Interpreting Provider: Leelee Kramer MD on 09/24/2023 2:57 PM Narrative 09/24/2023 2:57 PM REVIEW COORDINATOR PROCEDURE: ??CT LOWER EXT RIGHT W CONTRAST [...] RIGHT VENOUS DUPLEX LE (09/24/2023 1:37 PM REVIEW COORDINATOR) Anatomical Region Laterality Modality Lower Extremity Ultrasound 09/24/2023 3:44 PM REVIEW COORDINATOR Narrative Procedure Note Antonio Gillette MD - 09/24/[address] [address] Lower Extremity Venous Ultrasound Report Pat.Name: TAYLOR RUTLEDGE Pat.ID: [id number] .Date: 09/24/2023 Refer.MD: Drew Lerma Exam Time: 3:44:00 PM Study Type:LE Venous Age: 9 1965,58Y Sex: MALE Sonogrphr: Cheryl Gaines RVT Pat. Stat.:Inpatient ICD - 9: M25.551 Reason for Study: Pain -Leg, right Procedures: Lower Extremity Venous - Right Race: 1 Visit ID: [id number] ++++++++++++++++++++++++++++++++++++ SUMMARY: ++++++++++++++++++++++++++++++++++++ Technically difficult study. No [...] TRAUMA 2 VW RIGHT (09/24/2023 11:23 AM REVIEW COORDINATOR) Anatomical Region Laterality Modality Lower Extremity Radiographic Sabi ging 09/24/2023 11:3 1 AM REVIEW COORDINATOR Narrative 09/24/2023 11:31 AM REVIEW COORDINATOR PROCEDURE: ??XR FEMUR RIGHT 2VW, DATE/TIME OF EXAM: ??09/24/2023 11:24 AM, LOCATION ??[facility] INDICATION: M25.551: Pain in right hip [...] DATE/TIME OF EXAM: 09/24/2023 11:24 AM, LOCATION [facility] INDICATION: M25.551: Pain in right hip [...] PELVIS 1 OR 2VW (09/24/2023 11:23 AM REVIEW COORDINATOR) Anatomical Region Laterality Modality Pelvis Radiographic Sabi ging 09/24/2023 11:3 0 AM REVIEW COORDINATOR Narrative 09/24/2023 11:31 AM REVIEW COORDINATOR PROCEDURE: ??XR PELVIS 1 OR 2VW, DATE/TIME OF EXAM: ??09/24/2023 11:23 AM, LOCATION ??[facility] INDICATION: M25.551: Pain in right hip [...] DATE/TIME OF EXAM: 09/24/2023 11:23 AM, LOCATION [facility] INDICATION: M25.551: Pain in right hip [...] * (ABNORMAL) C-REACTIVE PROTEIN (09/24/2023 10:58 AM REVIEW COORDINATOR) C-Reactive Protein 5.64(H) <=0.50 mg/dL 09/24/2023 12:23 PM REVIEW COORDINATOR [facility] Blood BLOOD SPECIMEN / Unknown Venipuncture / Unknown 09/24/2023 10:58 AM REVIEW COORDINATOR 09/24/2023 10:58 AM REVIEW COORDINATOR Drew Lerma DO LAB - CHEMISTRY ORDERABLES Performing Organization Address City/[facility] Co de Phone Number [facility] [address] [place] [phone] * (ABNORMAL) ERYTHROCYTE SEDIMENTATION RATE (09/24/2023 10:58 AM REVIEW COORDINATOR) Erythrocyte Sedimentation Rate Automated 50(H) 0 - 20 MM/HR 09/24/2023 12:38 PM REVIEW COORDINATOR [facility] Blood BLOOD SPECIMEN / Unknown Venipuncture / Unknown 09/24/2023 10:58 AM REVIEW COORDINATOR 09/24/2023 10:58 AM REVIEW COORDINATOR Drew Lerma DO LAB - HEMATOLOG Y ORDERABLES Performing Organization Address City/[facility]/ZIP Co de Phone Number [facility] [address] [place] [phone] * (ABNORMAL) DIFFERENTIAL MANUAL (09/24/2023 10:58 AM [facility]) Pathologist [facility] Neutrophil % 82(H) 41 - 74 % 09/24/2023 11:46 AM [facility] Lymphocyte % 7(L) 17 - 47 % 09/24/2023 11:46 AM [facility] Monocyte % 11 3 - 11 % 09/24/2023 11:46 AM [facility] Neutrophil Absolute 9.68(H) 1.60 - 7.50 x10E9/L 09/24/2023 11:46 AM [facility] Lymphocyte Absolute 0.83(L) 1.00 - 4.40 x10E9/L 09/24/2023 11:46 AM [facility] Monocyte Absolute 1.30(H) 0.15 - 1.00 x10E9/L 09/24/2023 11:46 AM [facility] RBC Morphology NORMAL 09/24/2023 11:46 AM [facility] Blood BLOOD SPECIMEN / Unknown Venipuncture / Unknown 09/24/2023 10:58 AM REVIEW COORDINATOR 09/24/2023 10:58 AM [facility] Kip [facility]FR[facility] LAB - HEMATOLOGY OR DERABLES Performing Organization Address City/State/[facility] Co de Phone Number [facility] [address] [place] [address] * (ABNORMAL) BASIC METABOLIC PANEL (CALCIUM TOTAL) (09/24/2023 10:58 AM RUST) Pathologist [facility] Glucose 178(H) 70 - 105 mg/dL 09/24/2023 11:13 AM [facility] Sodium 137 136 - 145 mmol/L 09/24/2023 11:13 AM [facility] Potassium 4.2 3.5 - 5.1 mmol/L 09/24/2023 11:13 AM [facility] Chloride 105 98 - 107 mmol/L 09/24/2023 11:13 AM [facility] CO2 23 22 - 29 mmol/L 09/24/2023 11:13 AM [facility] Calcium 9.4 8.4 - 10.4 mg/dL 09/24/2023 11:13 AM [facility] Anion Gap 9 6 - 16 mmol/L 09/24/2023 11:13 AM [facility] BUN 14 7 - 26 mg/dL 09/24/2023 11:13 AM [facility] Creatinine 0.90 0.72 - 1.25 mg/dL 09/24/2023 11:13 AM [facility] eGFR by CKD-EPI >90 >=90 mL/min/1.7 3 m2 09/24/2023 11:13 AM [facility] Blood BLOOD SPECIMEN / Unknown Venipuncture / Unknown 09/24/2023 10:58 AM REVIEW COORDINATOR 09/24/2023 10:58 AM [facility] Drew Lerma DO LAB - CHEMISTRY ORDERABLES Performing Organization Address City/State/[facility] Co de Phone Number [facility] [address] [place] [address] * (ABNORMAL) CBC W AUTO DIFFERENTIAL (09/24/2023 10:58 AM RUST) WBC 11.8(H) 4.0 - 10.7 x10E9/L 09/24/2023 11:47 AM [facility] RBC Count 4.15(L) 4.30 - 5.80 x10E12/L 09/24/2023 11:47 AM [facility] Hemoglobin 12.6(L) 13.3 - 17.5 g/dL 09/24/2023 11:47 AM [facility] Hematocrit 38.9 38.7 - 51.1 % 09/24/2023 11:47 AM [facility] MCV 93.7 80.0 - 98.0 fL 09/24/2023 11:47 AM [facility] MCH 30.4 26.7 - 33.6 pg 09/24/2023 11:47 AM [facility] MCHC 32.4 31.7 - 36.3 g/dL 09/24/2023 11:47 AM [facility] RDW-CV 13.2 11.3 - 14.8 % 09/24/2023 11:47 AM [facility] Platelet Count 194 150 - 420 x10E9/L 09/24/2023 11:47 AM [facility] MPV 9.1 7.8 - 11.4 fL 09/24/2023 11:47 AM [facility] Blood BLOOD SPECIMEN / Unknown Venipuncture / Unknown 09/24/2023 10:58 AM REVIEW COORDINATOR 09/24/2023 10:58 AM REVIEW COORDINATOR Kip [facility] LAB - HEMATOLOGY OR DERABLES Performing Organization Address City/State/[facility] Co de Phone Number [facility] [address] [place] [address] documented in this encounter Visit Diagnoses Diagnosis Infection of prosthetic joint, initial encounter ([facility])- Primary Pain of right hip Inability to ambulate due to hip Difficulty in walking Diagnosis unknown Other unknown and unspecified cause of morbidity or mortality Inability to ambulate due to hip Difficulty in walking Pain of right hip documented in this encounter Administered Medications Inactive Administered Medications - up to 3 most recent administrations Medication Order MAR Action Action Date Dose Rate Site 0.9% NaCl injection 0-10 mL 0-10 mL, Intracatheter, ONCE PRN, Other, Contrast flush, 1 dose, Starting on Sun09/24/23 at 1404, Until Sun09/24/23 at 1431, For administration with contrast. $ Given 09/24/2023 2:31 PM REVIEW COORDINATOR 10 mL 0.9% NaCl injection 1-10 mL 1-10 mL, Intracatheter, PRN, Other, peripheral line flush, Starting on Hetal 09/27/23 at 1330, Until Hetal 10/04/23 at 1244, Flush peripheral IV catheter with 1-10 mL of normal saline before and after medications and prn to clear blood from the line or to verify patency. $ Given 09/29/2023 6:13 PM REVIEW COORDINATOR 10 mL 0.9% NaCl injection 1-10 mL 1-10 mL, Intracatheter, PRN, Other, peripheral line flush, Starting on Sun09/24/23 at 1625, Until Hetal 10/04/23 at 1244, Flush peripheral IV catheter with 1-10 mL of normal saline before and after medications and prn to clear blood from the line or to verify patency. $ Given 09/24/2023 7:38 PM REVIEW COORDINATOR 10 mL 0.9% NaCl injection 10-40 mL 10-40 mL, Intracatheter, EVERY 8 HOURS, First dose on Sun10/03/23 at 1545, Until Discontinued, Flush each lumen of PICC with 10ml NS IVP every 8 hours (regardless of continuous IV infusion). Flushing may be contraindicated if concentrated drips are infusing. $ Given 10/04/2023 3:51 AM REVIEW COORDINATOR 10 mL 0.9% NaCl injection 10-40 mL 10-40 mL, Intracatheter, PRN, Other, PICC line flush, Starting on Sun10/03/23 at 1508, Until Sun10/04/23 at 1244, Flush each lumen of PICC with 10ml NS IVP before and after medication/solution administration for patency and blood return. Flush each lumen of PICC with 20 ml NS IVP after each infusion of blood products or lipids, and after each blood draw. 0.9% NaCl injection 3 mL 3 mL, Intracatheter, EVERY 8 HOURS, First dose on Sun09/27/23 at 1400, Until Discontinued, Flush peripheral IV catheter with 3 mL of normal saline every 8 hours. $ Given 10/01/2023 7:50 AM REVIEW COORDINATOR 3 mL $ Given 09/30/2023 11:23 PM REVIEW COORDINATOR 3 mL $ Given 09/30/2023 12:06 PM REVIEW COORDINATOR 3 mL 0.9% NaCl injection 3 mL 3 mL, Intracatheter, EVERY 8 HOURS, First dose on Sun09/24/23 at 1700, Until Discontinued, Flush peripheral IV catheter with 3 mL of normal saline every 8 hours. $ Given 10/03/2023 8:08 PM REVIEW COORDINATOR 3 mL $ Given 10/03/2023 12:06 PM REVIEW COORDINATOR 3 mL $ Given 10/01/2023 10:10 PM REVIEW COORDINATOR 3 mL 0.9% NaCl IV flush bag 0-250 mL, Intracatheter, ONCE PRN, Contrast flush, 1 dose, Starting on Sun09/24/23 at 1404, Until Sun09/24/23 at 1431, For administration with contrast $ Given 09/24/2023 2:31 PM REVIEW COORDINATOR 50 mL acetaminophen (Tylenol) tablet 650 mg 650 mg, Oral, EVERY 4 HOURS PRN, Fever, For temperature GREATER than 101 , Starting on Sun09/24/23 at 1626, Until Sun10/04/23 at 1244, Patient preference for lesser PRN pain meds may be honored when the patient requests a less strong medication, a lower dose, or a less intrusive route of administration when the lesser drug, dose and route have been ordered for the patient. This patient request must be documented in the MAR. $ Given 09/26/2023 8:23 PM REVIEW COORDINATOR 650 mg ALPRAZolam (Xanax) tablet 0.5 mg 0.5 mg, Oral, 3 TIMES DAILY PRN, Anxiety, Starting on 09/29/23 at 1806, Until Hetal 10/04/23 at 1244 $ Given 10/03/2023 8:19 PM REVIEW COORDINATOR 0.5 mg $ Given 10/02/2023 9:40 PM REVIEW COORDINATOR 0.5 mg $ Given 10/02/2023 1:50 AM REVIEW COORDINATOR 0.5 mg amLODIPine (Norvasc) tablet 10 mg 10 mg, Oral, DAILY, First dose (after last modification) on Sun09/25/23 at 0900, Until Discontinued $ Given 10/04/2023 8:28 AM REVIEW COORDINATOR 10 mg $ Given 10/03/2023 8:14 AM REVIEW COORDINATOR 10 mg $ Given 10/02/2023 8:07 AM REVIEW COORDINATOR 10 mg bisacodyl (Dulcolax) suppository 10 mg 10 mg, Rectal, DAILY PRN, Constipation, Starting on Sun09/27/23 at 1056, Until Sun10/04/23 at 1244 carvedilol (Coreg) tablet 25 mg 25 mg, Oral, 2 TIMES DAILY, First dose on Sun09/24/23 at 2100, Until Discontinued, Take with food $ Given 10/04/2023 8:27 AM REVIEW COORDINATOR 25 mg $ Given 10/03/2023 8:11 PM REVIEW COORDINATOR 25 mg $ Given 10/03/2023 8:14 AM REVIEW COORDINATOR 25 mg ceFAZolin (Ancef) 2 g in 0.9% NaCl IV 50 mL IVPB 2 g, at 100 mL/hr, Intravenous, EVERY 8 HOURS, 3 doses, First dose on Sun09/25/23 at 0500, Last dose on Sun09/25/23 at 2100, Indication for anti-infective therapy: Surgical prophylaxis $ New Bag/Syringe 09/25/2023 4:43 AM REVIEW COORDINATOR 2 g 100 mL/hr ceFAZolin (Ancef) 2 g in 0.9% NaCl IV 50 mL IVPB 2 g, at 100 mL/hr, Intravenous, EVERY 8 HOURS, First dose on Sun09/27/23 at 1045, Until Discontinued, Indication for anti-infective therapy: Documented infection, Site of anti-infective therapy: Bone/Joint $ New Bag/Syringe 10/04/2023 3:55 AM REVIEW COORDINATOR 2 g 100 mL/hr $ New Bag/Syringe 10/03/2023 8:13 PM REVIEW COORDINATOR 2 g 100 mL /hr $ New Bag/Syringe 10/03/2023 12:05 PM REVIEW COORDINATOR 2 g 100 m L/hr cefepime (Maxipime) 2,000 mg in 0.9% NaCl IV 50 mL IVPB 2,000 mg (2 g), at 100 mL/hr, Intravenous, EVERY 8 HOURS, First dose on Sun09/25/23 at 1200, Until Discontinued, Indication for anti-infective therapy: Documented infection, Site of anti-infective therapy: Bone/Joint $ New Bag/Syringe 09/27/2023 5:34 AM REVIEW COORDINATOR 2,000 mg 100 mL/hr $ New Bag/Syringe 09/26/2023 8:29 PM REVIEW COORDINATOR 2,000 mg 100 mL /hr $ New Bag/Syringe 09/26/2023 12:46 PM REVIEW COORDINATOR 2,000 mg 100 m L/hr cyclobenzaprine (Flexeril) tablet 10 mg 10 mg, Oral, 2 TIMES DAILY, First dose on Sun09/24/23 at 2100, Until Discontinued $ Given 10/04/2023 8:28 AM REVIEW COORDINATOR 10 m g $ Given 10/03/2023 8:11 PM REVIEW COORDINATOR 10 mg $ Given 10/03/2023 8:14 AM REVIEW COORDINATOR 10 mg dextrose 10 % IV bolus 12.5 g, at 999 mL/hr, Intravenous, PRN, Other, Bedside Glucose less than 70 mg/dL -If NOT able to eat and/or NPO and with IV Access, Starting on Sun09/24/23 at 1623, Until Sun10/04/23 at 1244, If NOT able to eat and/or NPO and with IV Access: For Bedside Glucose 54-69 mg/dL give 12.5 g Dextrose IV STAT For Bedside Glucose LESS than 54 mg/dl verify with a second Bedside Glucose (from a different site) and give 25 g Dextrose IV STAT Re-check and Re-treat blood glucose EVERY , 10-25 minutes until blood glucose GREATER than or equal to 80 mg/dl. NOTIFY PROVIDER OF HYPOGLYCEMIC EVENT. dextrose 10 % IV bolus 25 g, at 999 mL/hr, Intravenous, PRN, Other, Bedside Glucose less than 70 mg/dL -If NOT able to eat and/or NPO and with IV Access, Starting on Sun09/24/23 at 1623, Until Sun10/04/23 at 1244, If NOT able to eat and/or NPO and with IV Access: For Bedside Glucose 54-69 mg/dL - give 12.5 g Dextrose IV STAT For Bedside Glucose LESS than 54 mg/dl - verify with a second Bedside Glucose (from a different site) and give 25 g Dextrose IV STAT Re-check and Re-treat blood glucose EVERY - 10-25 minutes until blood glucose GREATER than or equal to 80 mg/dl. - If repeat bedside glucose 54-79 give 12.5 g Dextrose IV STAT NOTIFY PROVIDER OF HYPOGLYCEMIC EVENT. diphenhydrAMINE (Benadryl) capsule 25 mg 25 mg, Oral, ONCE, 1 dose, On Sun09/30/23 at 0045 $ Given 09/30/2023 12:31 AM REVIEW COORDINATOR 25 mg docusate sodium (Colace) capsule 100 mg 100 mg, Oral, 2 TIMES DAILY, First dose on Sun09/24/23 at 2100, Until Discontinued $ Given 10/04/2023 8:28 AM REVIEW COORDINATOR 100 mg $ Given 10/03/2023 8:11 PM REVIEW COORDINATOR 100 mg $ Given 10/03/2023 8:14 AM REVIEW COORDINATOR 100 mg enoxaparin (Lovenox) injection 40 mg 40 mg, Subcutaneous, DAILY, First dose on Sun09/25/23 at 0900, Until Discontinued, (for prefilled syringes) do not expel air bubble from the syringe prior to the injection Remind Patient to not rub injection site. Could cause hematoma. $ Given 09/26/2023 8:45 AM REVIEW COORDINATOR 40 mg Ab dominal Tissue enoxaparin (Lovenox) injection 40 mg 40 mg, Subcutaneous, DAILY, First dose on Sun09/27/23 at 1300, Until Discontinued, (for prefilled syringes) do not expel air bubble from the syringe prior to the injection Remind Patient to not rub injection site. Could cause hematoma. $ Given 10/01/2023 10:37 AM REVIEW COORDINATOR 40 mg A bdominal Tissue $ Given 09/30/2023 8:06 AM REVIEW COORDINATOR 40 mg Ab d Left Lower Quadrant $ Given 09/29/2023 8:49 AM REVIEW COORDINATOR 40 mg Ab dominal Tissue enoxaparin (Lovenox) injection 40 mg 40 mg, Subcutaneous, DAILY, First dose on Sun10/03/23 at 1000, Until Discontinued, (for prefilled syringes) do not expel air bubble from the syringe prior to the injection Remind Patient to not rub injection site. Could cause hematoma. $ Given 10/04/2023 8:27 AM REVIEW COORDINATOR 40 mg Ab dominal Tissue $ Given 10/03/2023 10:10 AM REVIEW COORDINATOR 40 mg A bdominal Tissue fentaNYL (PF) (Sublimaze) injection 25 mcg 25 mcg, Intravenous, EVERY 3 MIN PRN, Mild Pain, 4 doses, Starting on Sun10/02/23 at 1628, Until Hetal 10/04/23 at 1244, Maximum total of 4 doses. If patient reaches max total dose, please consult anesthesiologist prior to further administration of pain meds. Hold pain meds if there are signs of hypoventilation. Patient preference for lesser PRN pain meds may be honored when the patient requests a less strong medication, a lower dose, or a less intrusive route of administration when the lesser drug, dose and route have been ordered for the patient. This patient request must be documented in the MAR., PACU fentaNYL (PF) (Sublimaze) injection 50 mcg 50 mcg, Intravenous, EVERY 3 MIN PRN, Mild Pain, 4 doses, Starting on Sun09/27/23 at 1214, Until Hetal 10/04/23 at 1244, Maximum total of 4 doses. If patient reaches max total dose, please consult anesthesiologist prior to further administration of pain meds. Hold pain meds if there are signs of hypoventilation. Patient preference for lesser PRN pain meds may be honored when the patient requests a less strong medication, a lower dose, or a less intrusive route of administration when the lesser drug, dose and route have been ordered for the patient. This patient request must be documented in the MAR., PACU fentaNYL (PF) (Sublimaze) injection 50 mcg 50 mcg, Intravenous, EVERY 3 MIN PRN, Moderate Pain, 4 doses, Starting on Sun10/02/23 at 1628, Until Hetal 10/04/23 at 1244, Maximum total of 4 doses. If patient reaches max total dose, please consult anesthesiologist prior to further administration of pain meds. Hold pain meds if there are signs of hypoventilation. Patient preference for lesser PRN pain meds may be honored when the patient requests a less strong medication, a lower dose, or a less intrusive route of administration when the lesser drug, dose and route have been ordered for the patient. This patient request must be documented in the MAR., PACU ferrous sulfate tablet 325 mg 325 mg, Oral, DAILY, First dose on Sun09/24/23 at 1645, Until Discontinued, Take with food. Do not take within 2 hours of other medications. $ Given 10/04/2023 8:28 AM REVIEW COORDINATOR 325 mg $ Given 10/03/2023 8:14 AM REVIEW COORDINATOR 325 mg $ Given 10/02/2023 8:07 AM REVIEW COORDINATOR 325 mg glucagon (Glucagen) injection 1 mg 1 mg, Subcutaneous, PRN, Bedside Glucose less than 70 mg/dL - If NOT able to eat and/or NPO and withOUT IV Access, Starting on Sun09/24/23 at 1623, Until Hetal 10/04/23 at 1244, If NOT able to eat and/or NPO and NO IV Access: For Bedside glucose 54-69 mg/dL ? - Give 1 mg subcutaneous For Bedside Glucose LESS than 54 mg/dl ? -?verify with a second bedside glucose (from a different site) ? -?Give 1 mg subcutaneous Re-check and Re-treat blood glucose EVERY 10-25 minutes until blood glucose GREATER than or equal to 80 mg/dl.? NOTIFY PROVIDER OF HYPOGLYCEMIC EVENT. Reconstitute vial with 1 mL of sterile water for injection for a final concentration of 1 mg/mL; shake vial gently; use immediately and discard unused portion glucose (Diabetic Use) oral gel Oral, PRN, Other, Bedside Glucose less than 70 mg/dL, Starting on Sun09/24/23 at 1623, Until Hetal 10/04/23 at 1244, If able to eat and is better able to swallow gel: For Bedside Glucose 54 - 69 mg/dL Give 15 grams of oral carbohydrates - 1 glucose gel (see MAR) If patient refuses glucose gel, then offer: - 4 ounces of fruit juice OR - 4 ounces non-diet soda OR - 8 ounces of fat-free milk For Bedside Glucose LESS than 54 mg/dL verify with a second Bedside Glucose (from a different site) - If pt is symptomatic, do not delay treatment - If accuracy of the POC glucose is in question, confirm glucose with a STAT laboratory test Give 30 grams of oral carbohydrates - 2 glucose gels (see MAR) If patient refuses glucose gel, then offer: - 8 ounces of fruit juice OR - 8 ounces non-diet soda OR - 16 ounces of fat-free milk Re-check and Re-treat blood glucose EVERY 10-25 minutes until blood glucose GREATER than or equal to 80 mg/dl. - If on recheck, bedside glucose 54-79 mg/dL - Give 15 grams of oral carbohydrates (see above for choices) NOTIFY PROVIDER OF HYPOGLYCEMIC EVENT. HYDROcodone-acetaminophen ([place]) 5-325 MG tablet 1 tablet 1 tablet, Oral, EVERY 4 HOURS PRN, Moderate Pain, Starting on Sun09/24/23 at 1726, Until Sun09/25/23 at 0949, Patient preference for lesser PRN pain meds may be honored when the patient requests a less strong medication, a lower dose, or a less intrusive route of administration when the lesser drug, dose and route have been ordered for the patient. This patient request must be documented in the MAR. $ Given 09/25/2023 8:25 AM REVIEW COORDINATOR 1 tablet $ Given 09/24/2023 5:58 PM REVIEW COORDINATOR 1 tablet HYDROmorphone (Dilaudid) injection 0.2 mg 0.2 mg, Intravenous, EVERY 15 MIN PRN, Moderate Pain, 5 doses, Starting on Hetal 09/27/23 at 1214, Until Hetal 10/04/23 at 1244, Maximum total of 5 doses If patient reaches max total dose, please consult anesthesiologist prior to further administration of pain meds. Hold pain meds if there are signs of hypoventilation. Patient preference for lesser PRN pain meds may be honored when the patient requests a less strong medication, a lower dose, or a less intrusive route of administration when the lesser drug, dose and route have been ordered for the patient. This patient request must be documented in the MAR., PACU HYDROmorphone (Dilaudid) injection 0.5 mg 0.5 mg, Intravenous, NOW, 1 dose, On 09/24/23 at 1415, Any ordered dose for greater than 1mg IV push of HYDROmorphone should be given incrementally Patient preference for lesser PRN pain meds may be honored when the patient requests a less strong medication, a lower dose, or a less intrusive route of administration when the lesser drug, dose and route have been ordered for the patient. This patient request must be documented in the MAR. $ Given 09/24/2023 2:17 PM REVIEW COORDINATOR 0.5 m g HYDROmorphone (Dilaudid) injection 0.5 mg 0.5 mg, Intravenous, EVERY 5 MIN PRN, Severe Pain, 4 doses, Starting on Hetal 09/27/23 at 1214, Until Hetal 10/04/23 at 1244, Maximum total of 4 doses If patient reaches max total dose, please consult anesthesiologist prior to further administration of pain meds. Hold pain meds if there are signs of hypoventilation. Patient preference for lesser PRN pain meds may be honored when the patient requests a less strong medication, a lower dose, or a less intrusive route of administration when the lesser drug, dose and route have been ordered for the patient. This patient request must be documented in the MAR., PACU $ Given 09/27/2023 4:40 PM REVIEW COORDINATOR 0.5 mg HYDROmorphone (Dilaudid) injection 0.5 mg 0.5 mg, Intravenous, EVERY 20 MIN PRN, Severe Pain, Starting on Sun10/02/23 at 1628, Until Hetal 10/04/23 at 1244, Maximum total of 4 doses If patient reaches max total dose, please consult anesthesiologist prior to further administration of pain meds. Hold pain meds if there are signs of hypoventilation. Patient preference for lesser PRN pain meds may be honored when the patient requests a less strong medication, a lower dose, or a less intrusive route of administration when the lesser drug, dose and route have been ordered for the patient. This patient request must be documented in the MAR., PACU $ Given 10/03/2023 6:38 AM REVIEW COORDINATOR 0.5 mg $ Given 10/02/2023 5:02 PM REVIEW COORDINATOR 0.5 mg $ Given 10/02/2023 4:30 PM REVIEW COORDINATOR 0.5 mg HYDROmorphone (Dilaudid) injection 0.6 mg 0.6 mg, Intravenous, EVERY 3 HOURS PRN, Severe Pain, Starting on Sun09/25/23 at 0958, Until Sun10/04/23 at 1244, Patient preference for lesser PRN pain meds may be honored when the patient requests a less strong medication, a lower dose, or a less intrusive route of administration when the lesser drug, dose and route have been ordered for the patient. This patient request must be documented in the MAR. $ Given 10/03/2023 10:14 AM REVIEW COORDINATOR 0.6 mg $ Given 10/02/2023 6:10 PM REVIEW COORDINATOR 0.6 mg $ Given 09/30/2023 9:33 PM REVIEW COORDINATOR 0.6 mg insulin aspart (NovoLOG) pen 0-4 Units 0-4 Units, Subcutaneous, AT BEDTIME, First dose on Sun09/24/23 at 2100, Until Discontinued, Low Dose: Correction Insulin Bedside glucose should be done within 30-60 minutes of correction insulin administration. BG (mg/dL) Corrective Action LESS than 70 follow Hypoglycemic guidelines, 70-220 NO bedtime correction insulin 221-260 GIVE 1 unit of insulin 261-300 GIVE 2 units of insulin 301-350 GIVE 3 units of insulin Greater than 350 GIVE 4 units of insulin and notify physician $ Given 10/02/2023 9:43 PM REVIEW COORDINATOR 2 Units Abdominal Tissue insulin aspart (NovoLOG) pen 0-6 Units 0-6 Units, Subcutaneous, 3 TIMES DAILY WITH MEALS, First dose on Sun09/24/23 at 1800, Until Discontinued, Low Dose: Correction Insulin Bedside glucose should be done within 30-60 minutes of correction insulin administration. BG (mg/dL) Corrective Action LESS than 70 follow Hypoglycemic guidelines, 70-180 NO Correction insulin, 181-220 GIVE 2 units of insulin, 221-260 GIVE 3 units of insulin, 261-300 GIVE 4 units of insulin, 301-350 GIVE 5 units of insulin, Greater than 350 GIVE 6 units of insulin and notify physician. If the patient is NPO: DO NOT HOLD correction insulin If patient is eating meals and has orders for Mealtime insulin, combine and give at the same time. $ Given 10/01/2023 12:12 PM REVIEW COORDINATOR 2 Units Abdominal Tissue $ Given 09/30/2023 12:04 PM REVIEW COORDINATOR 2 Units A bd Left Upper Quadrant $ Given 09/27/2023 6:13 PM REVIEW COORDINATOR 2 Units Ab dominal Tissue insulin regular human (HumuLIN R; NovoLIN R) 100 UNIT/ML injection 0-6 Units 0-6 Units, Intravenous, PRN, high glucose, Starting on Sun09/27/23 at 1214, Until Sun10/04/23 at 1244, POC Glucose Regular Insulin Dose 0 - 180 mg/dL = 0 units 181 - 220 mg/dL = 3 units 221 - 260 mg/dL = 4 units 261 - 300 mg/dL = 5 units Above 300 mg/dL = 6 units . WASTE DISPOSAL INSTRUCTIONS: Black Bin Disposal required., PACU iopamidol (Isovue 370) 76 % contrast Intravenous, CONTRAST ONCE, Starting on Sun09/24/23 at 1404, Until Sun09/26/23 at 1403 $ Given - Contrast 09/24/2023 2:30 PM REVIEW COORDINATOR 100 mL lactated ringers infusion at 125 mL/hr, Intravenous, CONTINUOUS, Starting on Sun09/24/23 at 2145, Until Sun09/25/23 at 0830, PACU $ New Bag/Syringe 09/24/2023 11:05 PM REVIEW COORDINATOR 125 mL/hr lactated ringers infusion at 125 mL/hr, Intravenous, CONTINUOUS, Starting on Sun09/25/23 at 0845, Until Sun09/25/23 at 1444, PACU *Current Bag - New Order 09/25/2023 8:51 AM REVIEW COORDINATOR 125 mL/hr lactated ringers infusion at 125 mL/hr, Intravenous, CONTINUOUS, Starting on Sun09/27/23 at 1215, Until Sun09/28/23 at 1235, PACU $ New Bag/Syringe 09/28/2023 3:53 AM REVIEW COORDINATOR 125 mL/hr $ New Bag/Syringe 09/27/2023 6:12 PM REVIEW COORDINATOR 125 mL /hr lactated ringers infusion at 75 mL/hr, Intravenous, CONTINUOUS, Starting on Sun10/02/23 at 0930, Until Sun10/02/23 at 1529 $ New Bag/Syringe 10/02/2023 9:22 AM REVIEW COORDINATOR 75 mL/hr lactated ringers infusion at 125 mL/hr, Intravenous, CONTINUOUS, Starting on Sun10/02/23 at 1700, Until Sun10/04/23 at 1102, PACU $ New Bag/Syringe 10/03/2023 6:32 AM REVIEW COORDINATOR 125 mL/hr $ New Bag/Syringe 10/02/2023 6:00 PM REVIEW COORDINATOR 125 mL /hr lactulose (Chronulac) solution 30 g 30 g, Oral, DAILY PRN, Constipation, Starting on Sun09/27/23 at 1056, Until Sun10/04/23 at 1244 $ Given 09/28/2023 8:57 AM REVIEW COORDINATOR 30 g lidocaine PF (Xylocaine MPF) 1 % injection Intradermal, ONCE, 1 dose, On Sun10/03/23 at 1530, For PICC line placement. Use lidocaine intradermally to produce wheal to locally anesthetize site if patient has NKA to Lidocaine. $ Given 10/03/2023 3:29 PM REVIEW COORDINATOR 50 mg morphine injection 2 mg 2 mg, Intravenous, EVERY 4 HOURS PRN, Severe Pain, Starting on Sun09/24/23 at 1726, Until Sun09/25/23 at 0958, Patient preference for lesser PRN pain meds may be honored when the patient requests a less strong medication, a lower dose, or a less intrusive route of administration when the lesser drug, dose and route have been ordered for the patient. This patient request must be documented in the MAR. $ Given 09/25/2023 1:29 AM REVIEW COORDINATOR 2 mg $ Given 09/24/2023 7:38 PM REVIEW COORDINATOR 2 mg morphine injection 4 mg 4 mg, Intravenous, NOW, 1 dose, On Sun09/24/23 at 1015, Patient preference for lesser PRN pain meds may be honored when the patient requests a less strong medication, a lower dose, or a less intrusive route of administration when the lesser drug, dose and route have been ordered for the patient. This patient request must be documented in the MAR. $ Admin. by Other Provider 09/24/2023 10:52 AM REVIEW COORDINATOR 4 mg naloxone (Narcan) injection 0.04 mg 0.04 mg, Intravenous, POST-OP MULTIPLE, Starting on Sun09/27/23 at 1214, Until Sun10/04/23 at 1244, If respiration rate is less than 7 per minute administer IV every 1 minute until respirations are greater than 12 per minute. Notify anesthesia immediately., PACU naloxone (Narcan) injection 0.04 mg 0.04 mg, Intravenous, POST-OP MULTIPLE, Starting on Sun10/02/23 at 1628, Until Sun10/04/23 at 1244, Notify physician immediately, and mix 0.4 mg Naloxone in 9 mL Normal Saline for slow IV push. Administer dilute Naloxone solution IV very slowly (1 mL over 30 seconds) while observing the patient response and titrating to effect. If no response, call Rapid Response, continue IV Naloxone at the same rate up to a total of 0.8 mg of diluted Naloxone., PACU ondansetron (disintegrating) (Zofran ODT) tablet 4 mg 4 mg, Oral, EVERY 6 HOURS PRN, Nausea/Vomiting, Starting on Sun09/24/23 at 1626, Until Hetal 10/04/23 at 1244, Dissolved orally on tongue ondansetron (Zofran) injection 4 mg 4 mg, Intravenous, ONCE, 1 dose, On Sun09/24/23 at 1030, Administer over 2 to 5 minutes. $ Admin. by Other Provider 09/24/2023 10:52 AM REVIEW COORDINATOR 4 mg ondansetron (Zofran) injection 4 mg 4 mg, Intravenous, EVERY 6 HOURS PRN, Nausea/Vomiting, Starting on Sun09/24/23 at 1626, Until Hetal 10/04/23 at 1244, Administer IV if patient is NPO, actively vomiting, or unable to swallow. ondansetron (Zofran) injection 4 mg 4 mg, Intravenous, ONCE PRN, Nausea/Vomiting, 1 dose, Starting on Sun09/27/23 at 1214, Until Hetal 10/04/23 at 1244, First choice, PACU ondansetron (Zofran) injection 4 mg 4 mg, Intravenous, ONCE PRN, Nausea/Vomiting, 1 dose, Starting on Sun10/02/23 at 1628, Until Sun10/04/23 at 1244, First choice, PACU ondansetron (Zofran) injection 8 mg 8 mg, Intravenous, ONCE PRN, Nausea/Vomiting, 1 dose, Starting on Sun09/27/23 at 1214, Until Hetal 10/04/23 at 1244, Second choice, use if first choice was ineffective., PACU oxyCODONE-acetaminophen (Percocet) 5-325 MG tablet 1 tablet 1 tablet, Oral, EVERY 4 HOURS PRN, Moderate Pain, Severe Pain, Starting on Sun09/25/23 at 0949, Until Sun10/04/23 at 1244, Patient preference for lesser PRN pain meds may be honored when the patient requests a less strong medication, a lower dose, or a less intrusive route of administration when the lesser drug, dose and route have been ordered for the patient. This patient request must be documented in the MAR. $ Given 10/04/2023 8:27 AM REVIEW COORDINATOR 1 tablet $ Given 10/04/2023 3:50 AM REVIEW COORDINATOR 1 tablet $ Given 10/03/2023 10:53 PM REVIEW COORDINATOR 1 tablet pantoprazole EC (Protonix) tablet 40 mg 40 mg, Oral, DAILY, First dose on Sun09/24/23 at 1645, Until Discontinued, Do not crush, chew, or cut in half. $ Given 10/04/2023 8:28 AM REVIEW COORDINATOR 40 mg $ Given 10/03/2023 8:14 AM REVIEW COORDINATOR 40 mg $ Given 10/02/2023 8:07 AM REVIEW COORDINATOR 40 mg pregabalin (Lyrica) capsule 50 mg 50 mg, Oral, 2 TIMES DAILY, First dose on Sun09/24/23 at 2100, Until Discontinued $ Given 10/04/2023 8:28 AM REVIEW COORDINATOR 50 m g $ Given 10/03/2023 8:11 PM REVIEW COORDINATOR 50 mg $ Given 10/03/2023 8:14 AM REVIEW COORDINATOR 50 mg prochlorperazine (Compazine) injection 10 mg 10 mg, Intravenous, ONCE PRN, Nausea/Vomiting, 1 dose, Starting on Sun09/27/23 at 1214, Until Hetal 10/04/23 at 1244, Third choice, use if first and second choice was ineffective., PACU prochlorperazine (Compazine) injection 5 mg 5 mg, Intravenous, EVERY 6 HOURS PRN, Nausea/Vomiting, Starting on Sun09/24/23 at 1626, Until Sun10/04/23 at 1244, If no relief from ondansetron (ZOFRAN), use prochlorperazine (COMPAZINE) in addition to ondansetron. prochlorperazine (Compazine) injection 5 mg 5 mg, Intramuscular, EVERY 6 HOURS PRN, Nausea/Vomiting, Starting on Sun09/24/23 at 1626, Until Sun10/04/23 at 1244, If no relief from ondansetron (ZOFRAN), use prochlorperazine (COMPAZINE) in addition to ondansetron. Use IM route if IV is unavailable. rosuvastatin (Crestor) tablet 40 mg 40 mg, Oral, EVERY MORNING, First dose on Sun09/24/23 at 1645, Until Discontinued $ Given 10/04/2023 5:08 AM REVIEW COORDINATOR 40 m g $ Given 10/03/2023 6:38 AM REVIEW COORDINATOR 40 mg $ Given 10/01/2023 10:37 AM REVIEW COORDINATOR 40 mg sertraline (Zoloft) tablet 200 mg 200 mg, Oral, DAILY, First dose (after last modification) on Sun09/24/23 at 1830, Until Discontinued, Avoid concurrent administration with grapefruit juice $ Given 10/04/2023 8:27 AM REVIEW COORDINATOR 200 mg $ Given 10/03/2023 8:14 AM REVIEW COORDINATOR 200 mg $ Given 10/02/2023 8:07 AM REVIEW COORDINATOR 200 mg vancomycin (Vancocin) 1,500 mg in 530 mL IVPB 1,500 mg, at 353.33 mL/hr, Intravenous, ONCE, 1 dose, On Sun09/24/23 at 2215, Give additional 1500 mg tonight for total of 2500 mg loading dose (pt got 1 gm IV in OR 09/24 @2100), Indication for anti-infective therapy: Suspected infection, Site of anti-infective therapy: Bone/Joint $ New Bag/Syringe 09/24/2023 11:32 PM REVIEW COORDINATOR 1,500 mg 353.33 mL/hr vancomycin (Vancocin) 1,500 mg in 530 mL IVPB 1,500 mg, at 353.33 mL/hr, Intravenous, EVERY 12 HOURS, First dose on Sun09/25/23 at 0900, Until Discontinued, Indication for anti-infective therapy: Suspected infection, Site of anti-infective therapy: Bone/Joint $ New Bag/Syringe 09/26/2023 12:08 AM REVIEW COORDINATOR 1,500 mg 353.33 mL/hr $ New Bag/Syringe 09/25/2023 12:49 PM REVIEW COORDINATOR 1,500 mg 353.3 3 mL/hr vancomycin (Vancocin) 1,750 mg in 535 mL IVPB 1,750 mg, at 305.71 mL/hr, Intravenous, EVERY 12 HOURS, First dose on Sun09/26/23 at 1330, Until Discontinued, Indication for anti-infective therapy: Suspected infection, Site of anti-infective therapy: Bone/Joint $ New Bag/Syringe 09/27/2023 2:49 AM REVIEW COORDINATOR 1,750 mg 305.71 mL/hr $ New Bag/Syringe 09/26/2023 2:16 PM REVIEW COORDINATOR 1,750 mg 305.71 mL/hr documented in this encounter Active and Recently Administered Medications Times are shown in REVIEW COORDINATOR. Scheduled Medication Order 10/02/2023 10/03/2023 10/04/2023 0.9% NaCl injection 10-40 mL 10-40 mL, Intracatheter, EVERY 8 HOURS, First dose on Sun10/03/23 at 1545, Until Discontinued, Flush each lumen of PICC with 10ml NS IVP every 8 hours (regardless of continuous IV infusion). Flushing may be contraindicated if concentrated drips are infusing. 1553 (Not Administered - Provider: Mulu Dickens RN - Reason: Patient Condition)2007 (Not Administered - Provider: Meenakshi Manzanares RN - Reason: Loss of Access) 0351 ($ Given - Provider: Meenakshi Manzanares RN) 0.9% NaCl injection 3 mL(Linked Group 1) 3 mL, Intracatheter, EVERY 8 HOURS, First dose on Hetal 09/27/23 at 1400, Until Discontinued, Flush peripheral IV catheter with 3 mL of normal saline every 8 hours. 0639 (Not Administered - Provider: Sanjay Kumar RN - Reason: Documented on duplicate row)1317 (Not Administered - Provider: Bailey Jones RN - Reason: IV Currently Infusing)2141 (Not Administered - Provider: Chacho Tian RN - Reason: IV Currently Infusing) 0630 (Not Administered - Provider: Chacho Tian RN - Reason: IV Currently Infusing)1206 (Not Administered - Provider: Mulu Dickens RN - Reason: Documented on duplicate row)2153 (Not Administered - Provider: Meenakshi Manzanares RN - Reason: Loss of Access) 0507 (Not Administered - Provider: Meenakshi Manzanares RN - Reason: Loss of Access) 0.9% NaCl injection 3 mL(Linked Group 2) 3 mL, Intracatheter, EVERY 8 HOURS, First dose on Sun09/24/23 at 1700, Until Discontinued, Flush peripheral IV catheter with 3 mL of normal saline every 8 hours. 0639 (Not Administered - Provider: Sanjay Kumar RN - Reason: Patient sleeping)1317 (Not Administered - Provider: Bailey Jones RN - Reason: Documented on duplicate row)2141 (Not Administered - Provider: Chacho Tian RN - Reason: IV Currently Infusing) 0630 (Not Administered - Provider: Chacho Tian RN - Reason: IV Currently Infusing)1206 ($ Given - Provider: Mulu Dickens RN)2007 ($ Given - Provider: Meenakshi Manzanares RN) 0351 (Not Administered - Provider: Meenakshi Manzanares RN - Reason: Loss of Access) amLODIPine (Norvasc) tablet 10 mg 10 mg, Oral, DAILY, First dose (after last modification) on Sun09/25/23 at 0900, Until Discontinued 0807 ($ Given - Provider: Bailey Jones RN) 0814 ($ Given - Provider: Mulu Dickens RN) 0828 ($ Given - Provider: Mulu Dickens RN) carvedilol (Coreg) tablet 25 mg 25 mg, Oral, 2 TIMES DAILY, First dose on Sun09/24/23 at 2100, Until Discontinued, Take with food 0807 ($ Given - Provider: Bailey Jones RN)214 ($ Given - Provider: Chacho Tian RN) 0814 ($ Given - Provider: Mulu Dickens RN)2010 ($ Given - Provider: Meenakshi Manzanares RN) 0827 ($ Given - Provider: Mulu Dickens RN) ceFAZolin (Ancef) 2 g in 0.9% NaCl IV 50 mL IVPB 2 g, at 100 mL/hr, Intravenous, EVERY 8 HOURS, First dose on Sun09/27/23 at 1045, Until Discontinued, Indication for anti-infective therapy: Documented infection, Site of anti-infective therapy: Bone/Joint 0146 (Stopped - Provider: Sanjay Kumar RN)0146 ($ New Bag/Syringe - Provider: Sanjay Kumar RN)0924 ($ New Bag/Syringe - Provider: Bailey Jones RN)0954 (Stopped - Provider: Bailey Jones RN)2118 ($ New Bag/Syringe - Provider: Chacho Tian RN)2148 (Stopped - Provider: Chacho Tian RN) 0420 ($ New Bag/Syringe - Provider: Chacho Tian RN)0450 (Stopped - Provider: Chacho Tian RN)1205 ($ New Bag/Syringe - Provider: Mulu Dickens RN)1235 (Stopped - Provider: Mulu Dickens RN)2012 ($ New Bag/Syringe - Provider: Meenakshi Manzanares RN)2044 (Stopped - Provider: Meenakshi Manzanares RN) 0355 ($ New Bag/Syringe - Provider: Meenakshi Manzanares RN)0425 (Stopped - Provider: Meenakshi Manzanares RN) cyclobenzaprine (Flexeril) tablet 10 mg 10 mg, Oral, 2 TIMES DAILY, First dose on Sun09/24/23 at 2100, Until Discontinued 806 ($ Given - Provider: Bailey Jones RN)2140 ($ Given - Provider: Chacho Tian RN) 08 ($ Given - Provider: Mulu Dickens RN)2010 ($ Given - Provider: Meenakshi Manzanares RN) 08 ($ Given - Provider: Mulu Dickens RN) docusate sodium (Colace) capsule 100 mg 100 mg, Oral, 2 TIMES DAILY, First dose on Sun09/24/23 at 2100, Until Discontinued 806 ($ Given - Provider: Bailey Jones RN)2140 ($ Given - Provider: Chacho Tian RN) 08 ($ Given - Provider: Mulu Dickens RN)2010 ($ Given - Provider: Meenakshi Manzanares RN) 0828 ($ Given - Provider: Mulu Dickens RN) enoxaparin (Lovenox) injection 40 mg 40 mg, Subcutaneous, DAILY, First dose on Sun10/03/23 at 1000, Until Discontinued, (for prefilled syringes) do not expel air bubble from the syringe prior to the injection Remind Patient to not rub injection site. Could cause hematoma. 1010 ($ Given - Provider: Mulu Dickens, ANA) 0827 ($ Given - Provider: Mulu Dickens, ANA) ferrous sulfate tablet 325 mg 325 mg, Oral, DAILY, First dose on Sun09/24/23 at 1645, Until Discontinued, Take with food. Do not take within 2 hours of other medications. 0807 ($ Given - Provider: Bailey Jones RN) 0814 ($ Given - Provider: Mulu Dickens, ANA) 0828 ($ Given - Provider: Mulu Dickens, ANA) insulin aspart (NovoLOG) pen 0-4 Units 0-4 Units, Subcutaneous, AT BEDTIME, First dose on Sun09/24/23 at 2100, Until Discontinued, Low Dose: Correction Insulin Bedside glucose should be done within 30-60 minutes of correction insulin administration. BG (mg/dL) Corrective Action LESS than 70 follow Hypoglycemic guidelines, 70-220 NO bedtime correction insulin 221-260 GIVE 1 unit of insulin 261-300 GIVE 2 units of insulin 301-350 GIVE 3 units of insulin Greater than 350 GIVE 4 units of insulin and notify physician 2142 ($ Given - Provider: Chacho Tian RN) 2021 (Not Administered - Provider: Meenakshi Manzanares RN - Reason: Per Administration Instructions) insulin aspart (NovoLOG) pen 0-6 Units 0-6 Units, Subcutaneous, 3 TIMES DAILY WITH MEALS, First dose on Sun09/24/23 at 1800, Until Discontinued, Low Dose: Correction Insulin Bedside glucose should be done within 30-60 minutes of correction insulin administration. BG (mg/dL) Corrective Action LESS than 70 follow Hypoglycemic guidelines, 70-180 NO Correction insulin, 181-220 GIVE 2 units of insulin, 221-260 GIVE 3 units of insulin, 261-300 GIVE 4 units of insulin, 301-350 GIVE 5 units of insulin, Greater than 350 GIVE 6 units of insulin and notify physician. If the patient is NPO: DO NOT HOLD correction insulin If patient is eating meals and has orders for Mealtime insulin, combine and give at the same time. 0808 (Not Administered - Provider: Bailey Jones RN - Reason: Per Administration Instructions)1317 (Not Administered - Provider: Bailey Jones RN - Reason: NPO)1812 (Not Administered - Provider: Bailey Jones RN - Reason: Per Administration Instructions) 0813 (Not Administered - Provider: Mulu Dickens RN - Reason: Per Administration Instructions)1159 (Not Administered - Provider: Mulu Dickens RN - Reason: Per Administration Instructions)1728 (Not Administered - Provider: Mulu Dickens RN - Reason: Per Administration Instructions) 0822 (Not Administered - Provider: Mulu Dickens RN - Reason: Per Administration Instructions) lidocaine PF (Xylocaine MPF) 1 % injection (COMPLETED) Intradermal, ONCE, 1 dose, On Sun10/03/23 at 1530, For PICC line placement. Use lidocaine intradermally to produce wheal to locally anesthetize site if patient has NKA to Lidocaine. 1529 ($ Given - Provider: Angelika Ponce RN) naloxone (Narcan) injection 0.04 mg 0.04 mg, Intravenous, POST-OP MULTIPLE, Starting on Hetal 09/27/23 at 1214, Until Hetal 10/04/23 at 1244, If respiration rate is less than 7 per minute administer IV every 1 minute until respirations are greater than 12 per minute. Notify anesthesia immediately., PACU naloxone (Narcan) injection 0.04 mg 0.04 mg, Intravenous, POST-OP MULTIPLE, Starting on Sun10/02/23 at 1628, Until Hetal 10/04/23 at 1244, Notify physician immediately, and mix 0.4 mg Naloxone in 9 mL Normal Saline for slow IV push. Administer dilute Naloxone solution IV very slowly (1 mL over 30 seconds) while observing the patient response and titrating to effect. If no response, call Rapid Response, continue IV Naloxone at the same rate up to a total of 0.8 mg of diluted Naloxone., PACU pantoprazole EC (Protonix) tablet 40 mg 40 mg, Oral, DAILY, First dose on Sun09/24/23 at 1645, Until Discontinued, Do not crush, chew, or cut in half. 0807 ($ Given - Provider: Bailey Jones RN) 0814 ($ Given - Provider: Mulu Dickens RN) 0828 ($ Given - Provider: Mulu Dickens RN) pregabalin (Lyrica) capsule 50 mg 50 mg, Oral, 2 TIMES DAILY, First dose on Sun09/24/23 at 2100, Until Discontinued 0807 ($ Given - Provider: Bailey Jones RN)2140 ($ Given - Provider: Chacho Tian, ANA) 0814 ($ Given - Provider: Mulu Dickens RN)2010 ($ Given - Provider: Meenakshi Manzanares RN) 0828 ($ Given - Provider: Mulu Dickens RN) rosuvastatin (Crestor) tablet 40 mg 40 mg, Oral, EVERY MORNING, First dose on Sun09/24/23 at 1645, Until Discontinued 0639 (Not Administered - Provider: Sanjay Kumar RN - Reason: NPO) 0638 ($ Given - Provider: Chacho Tian RN) 0508 ($ Given - Provider: Meenakshi Manzanares RN) sertraline (Zoloft) tablet 200 mg 200 mg, Oral, DAILY, First dose (after last modification) on Sun09/24/23 at 1830, Until Discontinued, Avoid concurrent administration with grapefruit juice 0807 ($ Given - Provider: Bailey Jones RN) 0814 ($ Given - Provider: Mulu Dickens RN) 0827 ($ Given - Provider: Mulu Dickens RN) Continuous Medication Order 10/02/2023 10/03/2023 10/04/2023 lactated ringers infusion () at 75 mL/hr, Intravenous, CONTINUOUS, Starting on Sun10/02/23 at 0930, Until Sun10/02/23 at 1529 0922 ($ New Bag/Syringe - Provider: Bailey Jones RN) lactated ringers infusion (CANCELED) at 125 mL/hr, Intravenous, CONTINUOUS, Starting on Sun10/02/23 at 1700, Until Hetal 10/04/23 at 1102, PACU 1800 ($ New Bag/Syringe - Provider: Bailey Jones RN) 0632 ($ New Bag/Syringe - Provider: Chacho Tian RN) PRN Medication Order 10/02/2023 10/03/2023 10/04/2023 0.9% NaCl injection 1-10 mL(Linked Group 1) 1-10 mL, Intracatheter, PRN, Other, peripheral line flush, Starting on Sun09/27/23 at 1330, Until Sun10/04/23 at 1244, Flush peripheral IV catheter with 1-10 mL of normal saline before and after medications and prn to clear blood from the line or to verify patency. 0.9% NaCl injection 1-10 mL(Linked Group 2) 1-10 mL, Intracatheter, PRN, Other, peripheral line flush, Starting on Sun09/24/23 at 1625, Until Sun10/04/23 at 1244, Flush peripheral IV catheter with 1-10 mL of normal saline before and after medications and prn to clear blood from the line or to verify patency. 0.9% NaCl injection 10-40 mL 10-40 mL, Intracatheter, PRN, Other, PICC line flush, Starting on Sun10/03/23 at 1508, Until Sun10/04/23 at 1244, Flush each lumen of PICC with 10ml NS IVP before and after medication/solution administration for patency and blood return. Flush each lumen of PICC with 20 ml NS IVP after each infusion of blood products or lipids, and after each blood draw. 0.9% NaCl irrigation 1,000 mL with povidone-iodine (Betadine) 35 mL irrigation (CANCELED) PRN, Starting on Sun10/02/23 at 1506, Until Sun10/02/23 at 1620, Intra-op 1506 ($ Given - Provider: Torrey Lafleur MD) 0.9% NaCl irrigation solution (CANCELED) PRN, Starting on Sun10/02/23 at 1505, Until Sun10/02/23 at 1620, Intra-op 1505 ($ Given - Provider: Torrey Lafleur MD - Comment: this is bactisure, not normal saline) acetaminophen (Tylenol) tablet 650 mg 650 mg, Oral, EVERY 4 HOURS PRN, Fever, For temperature GREATER than 101 , Starting on Sun09/24/23 at 1626, Until Sun10/04/23 at 1244, Patient preference for lesser PRN pain meds may be honored when the patient requests a less strong medication, a lower dose, or a less intrusive route of administration when the lesser drug, dose and route have been ordered for the patient. This patient request must be documented in the MAR. ALPRAZolam (Xanax) tablet 0.5 mg 0.5 mg, Oral, 3 TIMES DAILY PRN, Anxiety, Starting on 09/29/23 at 1806, Until Hetal 10/04/23 at 1244 0150 ($ Given - Provider: Sanjay Kumar, RN)2140 ($ Given - Provider: Chacho Tian, RN) 2019 ($ Given - Provider: Meenakshi Manzanares, RN) bisacodyl (Dulcolax) suppository 10 mg 10 mg, Rectal, DAILY PRN, Constipation, Starting on Hetal 09/27/23 at 1056, Until Hetal 10/04/23 at 1244 dextrose 10 % IV bolus(Linked Group 3) 12.5 g, at 999 mL/hr, Intravenous, PRN, Other, Bedside Glucose less than 70 mg/dL -If NOT able to eat and/or NPO and with IV Access, Starting on 09/24/23 at 1623, Until Hetal 10/04/23 at 1244, If NOT able to eat and/or NPO and with IV Access: For Bedside Glucose 54-69 mg/dL give 12.5 g Dextrose IV STAT For Bedside Glucose LESS than 54 mg/dl verify with a second Bedside Glucose (from a different site) and give 25 g Dextrose IV STAT Re-check and Re-treat blood glucose EVERY , 10-25 minutes until blood glucose GREATER than or equal to 80 mg/dl. NOTIFY PROVIDER OF HYPOGLYCEMIC EVENT. dextrose 10 % IV bolus(Linked Group 3) 25 g, at 999 mL/hr, Intravenous, PRN, Other, Bedside Glucose less than 70 mg/dL -If NOT able to eat and/or NPO and with IV Access, Starting on 09/24/23 at 1623, Until Hetal 10/04/23 at 1244, If NOT able to eat and/or NPO and with IV Access: For Bedside Glucose 54-69 mg/dL - give 12.5 g Dextrose IV STAT For Bedside Glucose LESS than 54 mg/dl - verify with a second Bedside Glucose (from a different site) and give 25 g Dextrose IV STAT Re-check and Re-treat blood glucose EVERY - 10-25 minutes until blood glucose GREATER than or equal to 80 mg/dl. - If repeat bedside glucose 54-79 give 12.5 g Dextrose IV STAT NOTIFY PROVIDER OF HYPOGLYCEMIC EVENT. fentaNYL (PF) (Sublimaze) injection 25 mcg 25 mcg, Intravenous, EVERY 3 MIN PRN, Mild Pain, 4 doses, Starting on 10/02/23 at 1628, Until Hetal 10/04/23 at 1244, Maximum total of 4 doses. If patient reaches max total dose, please consult anesthesiologist prior to further administration of pain meds. Hold pain meds if there are signs of hypoventilation. Patient preference for lesser PRN pain meds may be honored when the patient requests a less strong medication, a lower dose, or a less intrusive route of administration when the lesser drug, dose and route have been ordered for the patient. This patient request must be documented in the MAR., PACU fentaNYL (PF) (Sublimaze) injection 50 mcg 50 mcg, Intravenous, EVERY 3 MIN PRN, Mild Pain, 4 doses, Starting on Hetal 09/27/23 at 1214, Until Hetal 10/04/23 at 1244, Maximum total of 4 doses. If patient reaches max total dose, please consult anesthesiologist prior to further administration of pain meds. Hold pain meds if there are signs of hypoventilation. Patient preference for lesser PRN pain meds may be honored when the patient requests a less strong medication, a lower dose, or a less intrusive route of administration when the lesser drug, dose and route have been ordered for the patient. This patient request must be documented in the MAR., PACU fentaNYL (PF) (Sublimaze) injection 50 mcg 50 mcg, Intravenous, EVERY 3 MIN PRN, Moderate Pain, 4 doses, Starting on 10/02/23 at 1628, Until Hetal 10/04/23 at 1244, Maximum total of 4 doses. If patient reaches max total dose, please consult anesthesiologist prior to further administration of pain meds. Hold pain meds if there are signs of hypoventilation. Patient preference for lesser PRN pain meds may be honored when the patient requests a less strong medication, a lower dose, or a less intrusive route of administration when the lesser drug, dose and route have been ordered for the patient. This patient request must be documented in the MAR., PACU glucagon (Glucagen) injection 1 mg(Linked Group 3) 1 mg, Subcutaneous, PRN, Bedside Glucose less than 70 mg/dL - If NOT able to eat and/or NPO and withOUT IV Access, Starting on Sun09/24/23 at 1623, Until Hetal 10/04/23 at 1244, If NOT able to eat and/or NPO and NO IV Access: For Bedside glucose 54-69 mg/dL ? - Give 1 mg subcutaneous For Bedside Glucose LESS than 54 mg/dl ? -?verify with a second bedside glucose (from a different site) ? -?Give 1 mg subcutaneous Re-check and Re-treat blood glucose EVERY 10-25 minutes until blood glucose GREATER than or equal to 80 mg/dl.? NOTIFY PROVIDER OF HYPOGLYCEMIC EVENT. Reconstitute vial with 1 mL of sterile water for injection for a final concentration of 1 mg/mL; shake vial gently; use immediately and discard unused portion glucose (Diabetic Use) oral gel Oral, PRN, Other, Bedside Glucose less than 70 mg/dL, Starting on Sun09/24/23 at 1623, Until Hetal 10/04/23 at 1244, If able to eat and is better able to swallow gel: For Bedside Glucose 54 - 69 mg/dL Give 15 grams of oral carbohydrates - 1 glucose gel (see MAR) If patient refuses glucose gel, then offer: - 4 ounces of fruit juice OR - 4 ounces non-diet soda OR - 8 ounces of fat-free milk For Bedside Glucose LESS than 54 mg/dL verify with a second Bedside Glucose (from a different site) - If pt is symptomatic, do not delay treatment - If accuracy of the POC glucose is in question, confirm glucose with a STAT laboratory test Give 30 grams of oral carbohydrates - 2 glucose gels (see MAR) If patient refuses glucose gel, then offer: - 8 ounces of fruit juice OR - 8 ounces non-diet soda OR - 16 ounces of fat-free milk Re-check and Re-treat blood glucose EVERY 10-25 minutes until blood glucose GREATER than or equal to 80 mg/dl. - If on recheck, bedside glucose 54-79 mg/dL - Give 15 grams of oral carbohydrates (see above for choices) NOTIFY PROVIDER OF HYPOGLYCEMIC EVENT. HYDROmorphone (Dilaudid) injection 0.2 mg 0.2 mg, Intravenous, EVERY 15 MIN PRN, Moderate Pain, 5 doses, Starting on Hetal 09/27/23 at 1214, Until Hetal 10/04/23 at 1244, Maximum total of 5 doses If patient reaches max total dose, please consult anesthesiologist prior to further administration of pain meds. Hold pain meds if there are signs of hypoventilation. Patient preference for lesser PRN pain meds may be honored when the patient requests a less strong medication, a lower dose, or a less intrusive route of administration when the lesser drug, dose and route have been ordered for the patient. This patient request must be documented in the MAR., PACU HYDROmorphone (Dilaudid) injection 0.5 mg 0.5 mg, Intravenous, EVERY 5 MIN PRN, Severe Pain, 4 doses, Starting on Hetal 09/27/23 at 1214, Until Hetal 10/04/23 at 1244, Maximum total of 4 doses If patient reaches max total dose, please consult anesthesiologist prior to further administration of pain meds. Hold pain meds if there are signs of hypoventilation. Patient preference for lesser PRN pain meds may be honored when the patient requests a less strong medication, a lower dose, or a less intrusive route of administration when the lesser drug, dose and route have been ordered for the patient. This patient request must be documented in the MAR., PACU HYDROmorphone (Dilaudid) injection 0.5 mg 0.5 mg, Intravenous, EVERY 20 MIN PRN, Severe Pain, Starting on Sun10/02/23 at 1628, Until Hetal 10/04/23 at 1244, Maximum total of 4 doses If patient reaches max total dose, please consult anesthesiologist prior to further administration of pain meds. Hold pain meds if there are signs of hypoventilation. Patient preference for lesser PRN pain meds may be honored when the patient requests a less strong medication, a lower dose, or a less intrusive route of administration when the lesser drug, dose and route have been ordered for the patient. This patient request must be documented in the MAR., PACU 1630 ($ Given - Provider: Nicolasa Malagon RN)1702 ($ Given - Provider: Nicolasa Malagon RN) 0638 ($ Given - Provider: Chacho Tian RN) HYDROmorphone (Dilaudid) injection 0.6 mg 0.6 mg, Intravenous, EVERY 3 HOURS PRN, Severe Pain, Starting on Sun09/25/23 at 0958, Until Sun10/04/23 at 1244, Patient preference for lesser PRN pain meds may be honored when the patient requests a less strong medication, a lower dose, or a less intrusive route of administration when the lesser drug, dose and route have been ordered for the patient. This patient request must be documented in the MAR. 1810 ($ Given - Provider: Bailey Jones RN) 1014 ($ Given - Provider: Mulu Dickens RN) insulin regular human (HumuLIN R; NovoLIN R) 100 UNIT/ML injection 0-6 Units 0-6 Units, Intravenous, PRN, high glucose, Starting on Sun09/27/23 at 1214, Until Sun10/04/23 at 1244, POC Glucose Regular Insulin Dose 0 - 180 mg/dL = 0 units 181 - 220 mg/dL = 3 units 221 - 260 mg/dL = 4 units 261 - 300 mg/dL = 5 units Above 300 mg/dL = 6 units . WASTE DISPOSAL INSTRUCTIONS: Black Bin Disposal required., PACU lactulose (Chronulac) solution 30 g 30 g, Oral, DAILY PRN, Constipation, Starting on Sun09/27/23 at 1056, Until Sun10/04/23 at 1244 ondansetron (disintegrating) (Zofran ODT) tablet 4 mg 4 mg, Oral, EVERY 6 HOURS PRN, Nausea/Vomiting, Starting on Sun09/24/23 at 1626, Until Sun10/04/23 at 1244, Dissolved orally on tongue ondansetron (Zofran) injection 4 mg 4 mg, Intravenous, EVERY 6 HOURS PRN, Nausea/Vomiting, Starting on Sun09/24/23 at 1626, Until Sun10/04/23 at 1244, Administer IV if patient is NPO, actively vomiting, or unable to swallow. ondansetron (Zofran) injection 4 mg 4 mg, Intravenous, ONCE PRN, Nausea/Vomiting, 1 dose, Starting on Hetal 09/27/23 at 1214, Until Hetal 10/04/23 at 1244, First choice, PACU ondansetron (Zofran) injection 4 mg 4 mg, Intravenous, ONCE PRN, Nausea/Vomiting, 1 dose, Starting on e 10/02/23 at 1628, Until Hetal 10/04/23 at 1244, First choice, PACU ondansetron (Zofran) injection 8 mg 8 mg, Intravenous, ONCE PRN, Nausea/Vomiting, 1 dose, Starting on Hetal 09/27/23 at 1214, Until Hetal 10/04/23 at 1244, Second choice, use if first choice was ineffective., PACU oxyCODONE-acetaminophen (Percocet) 5-325 MG tablet 1 tablet 1 tablet, Oral, EVERY 4 HOURS PRN, Moderate Pain, Severe Pain, Starting on Sun09/25/23 at 0949, Until Hetal 10/04/23 at 1244, Patient preference for lesser PRN pain meds may be honored when the patient requests a less strong medication, a lower dose, or a less intrusive route of administration when the lesser drug, dose and route have been ordered for the patient. This patient request must be documented in the MAR. 0150 ($ Given - Provider: Sanjay Kumar RN)0807 ($ Given - Provider: Bailey Jones RN)2140 ($ Given - Provider: Chacho Tian RN) 0814 ($ Given - Provider: Mulu Dickens RN)1454 ($ Given - Provider: Mulu Dickens RN)1849 ($ Given - Provider: Mulu Dickens RN)2253 ($ Given - Provider: Meenakshi Manzanares RN) 0350 ($ Given - Provider: Meenakshi Manzanares RN)0827 ($ Given - Provider: Mulu Dickens RN) prochlorperazine (Compazine) injection 10 mg 10 mg, Intravenous, ONCE PRN, Nausea/Vomiting, 1 dose, Starting on Hetal 09/27/23 at 1214, Until Sun10/04/23 at 1244, Third choice, use if first and second choice was ineffective., PACU prochlorperazine (Compazine) injection 5 mg 5 mg, Intravenous, EVERY 6 HOURS PRN, Nausea/Vomiting, Starting on Sun09/24/23 at 1626, Until Hetal 10/04/23 at 1244, If no relief from ondansetron (ZOFRAN), use prochlorperazine (COMPAZINE) in addition to ondansetron. prochlorperazine (Compazine) injection 5 mg 5 mg, Intramuscular, EVERY 6 HOURS PRN, Nausea/Vomiting, Starting on Sun09/24/23 at 1626, Until Hetal 10/04/23 at 1244, If no relief from ondansetron (ZOFRAN), use prochlorperazine (COMPAZINE) in addition to ondansetron. Use IM route if IV is unavailable. vancomycin (Vancocin) 1 g in 0.9% NaCl irrigation 3,000 mL irrigation (CANCELED) PRN, Starting on Sun10/02/23 at 1506, Until Sun10/02/23 at 1620, Intra-op 1506 ($ Given - Provider: Torrey Lafleur MD) vancomycin (Vancocin) injection (CANCELED) PRN, Starting on Sun10/02/23 at 1527, Until Sun10/02/23 at 1620, Intra-op 1527 ($ Given - Provider: Torrey Lafleur MD - Comment: SPRINKLED INTO WOUND) Linked Groups Order Group 1: SALINE LOCK, INSERT AND MAINTAIN (CANCELED) Routine, CONTINUOUS, Starting on Sun09/27/23 at 1330, Until Specified, New collection And 0.9% NaCl injection 3 mLJump to med 3 mL, Intracatheter, EVERY 8 HOURS, First dose on Sun09/27/23 at 1400, Until Discontinued, Flush peripheral IV catheter with 3 mL of normal saline every 8 hours. And 0.9% NaCl injection 1-10 mLJump to med 1-10 mL, Intracatheter, PRN, Other, peripheral line flush, Starting on Sun09/27/23 at 1330, Until Sun10/04/23 at 1244, Flush peripheral IV catheter with 1-10 mL of normal saline before and after medications and prn to clear blood from the line or to verify patency. Group 2: SALINE LOCK, INSERT AND MAINTAIN (CANCELED) Routine, CONTINUOUS, Starting on Sun09/24/23 at 1630, Until Specified, New collection, Task Completed: Yes And 0.9% NaCl injection 3 mLJump to med 3 mL, Intracatheter, EVERY 8 HOURS, First dose on Sun09/24/23 at 1700, Until Discontinued, Flush peripheral IV catheter with 3 mL of normal saline every 8 hours. And 0.9% NaCl injection 1-10 mLJump to med 1-10 mL, Intracatheter, PRN, Other, peripheral line flush, Starting on Sun09/24/23 at 1625, Until Sun10/04/23 at 1244, Flush peripheral IV catheter with 1-10 mL of normal saline before and after medications and prn to clear blood from the line or to verify patency. Group 3: dextrose 10 % IV bolusJump to med 12.5 g, at 999 mL/hr, Intravenous, PRN, Other, Bedside Glucose less than 70 mg/dL -If NOT able to eat and/or NPO and with IV Access, Starting on Sun09/24/23 at 1623, Until Sun10/04/23 at 1244, If NOT able to eat and/or NPO and with IV Access: For Bedside Glucose 54-69 mg/dL give 12.5 g Dextrose IV STAT For Bedside Glucose LESS than 54 mg/dl verify with a second Bedside Glucose (from a different site) and give 25 g Dextrose IV STAT Re-check and Re-treat blood glucose EVERY , 10-25 minutes until blood glucose GREATER than or equal to 80 mg/dl. NOTIFY PROVIDER OF HYPOGLYCEMIC EVENT. Or dextrose 10 % IV bolusJump to med 25 g, at 999 mL/hr, Intravenous, PRN, Other, Bedside Glucose less than 70 mg/dL -If NOT able to eat and/or NPO and with IV Access, Starting on Sun09/24/23 at 1623, Until Sun10/04/23 at 1244, If NOT able to eat and/or NPO and with IV Access: For Bedside Glucose 54-69 mg/dL - give 12.5 g Dextrose IV STAT For Bedside Glucose LESS than 54 mg/dl - verify with a second Bedside Glucose (from a different site) and give 25 g Dextrose IV STAT Re-check and Re-treat blood glucose EVERY - 10-25 minutes until blood glucose GREATER than or equal to 80 mg/dl. - If repeat bedside glucose 54- 79 give 12.5 g Dextrose IV STAT NOTIFY PROVIDER OF HYPOGLYCEMIC EVENT. Or glucagon (Glucagen) injection 1 mgJump to med 1 mg, Subcutaneous, PRN, Bedside Glucose less than 70 mg/dL - If NOT able to eat and/or NPO and withOUT IV Access, Starting on 09/24/23 at 1623, Until Hetal 10/04/23 at 1244, If NOT able to eat and/or NPO and NO IV Access: For Bedside glucose 54- 69 mg/dL ? - Give 1 mg subcutaneous For Bedside Glucose LESS than 54 mg/dl ? -?verify with a second bedside glucose (from a different site) ? -?Give 1 mg subcutaneous Re-check and Re-treat blood glucose EVERY 10-25 minutes until blood glucose GREATER than or equal to 80 mg/dl.? NOTIFY PROVIDER OF HYPOGLYCEMIC EVENT. Reconstitute vial with 1 mL of sterile water for injection for a final concentration of 1 mg/mL; shake vial gently; use immediately and discard unused portion documented in this encounter Care Teams Manager Treasury Relationship Specialty Start Date End Date Faisal Richardson DO [address] [place] [address] PCP - General Family Medicine 11/27/22 documented as of this encounter
--- OUTSIDE RECORDS SUMMARY | 2024-07-28 00:57 | XMS_ITS | Encounter Summary ---
Author Organization [facility] Address [address] [place] [address] Care Team Providers Care Lifestyle Director Name Role Phone Faisal Richardson DO Primary Care Provider [phone] Encounter Details Date Type Department Care Team (Latest Contact Info) Description 10/15/2023 Travel Social History Tobacco Use Types Packs/Day [...] and heating? Not hard at all 12/14/2022 [facility] - Occupational Stress [...] place to sleep or slept in a detention (including now)? No 12/14/2022 Sex and Gender [...] No 12/14/2022 documented as of this encounter Plan of Treatment Upcoming Encounters Date Type Department Care Team (Late st Contact Info) Description 01/20/2025 10:00 AM CDT Office Visit [facility] - Orthopedic Surgery [facility] [place] [id number] [place] [address] [place] [id number] documented as of this encounter Visit Diagnoses Not on filedocumented in this encounter Care Teams Lifestyle Director Relationship Specialty Start Date End Date Faisal Richardson DO [address] [place] [id number] PCP - General Family Medicine 11/27/22 documented as of this encounter
--- OUTSIDE RECORDS SUMMARY | 2024-07-28 00:57 | XMS_ITS | Encounter Summary ---
Author Organization [facility], formerly [facility] Address [address] [place] [address] Care Team Providers Care Help Desk Consultant Name Role Phone Faisal Richardson DO Primary Care Provider [phone] Reason for Referral * Home Health Care (Routine) - Open Specialty Diagnoses / Procedures Referred By Contac t Referred To Contact Home Health Services Diagnoses Right hip pain Pain of right hip Marco Carter MD [address] [place] [address] [address] [facility] [place] [address] [facility] [address] [place] [phone] Referral ID Status Reason Start Date Expiration Date V isits Requested Visits Authorized [id number] Open Specialty Services Required 10/16/2023 10/15/2024 999 999 Reason for Visit * Reason Comments Picc Line Change Pt thinks his PICC l ine right arm is infected/placed 10/04/23 after hip replacement infection * Auth/Cert (Routine) Specialty Diagnoses / Procedures Referred By Contac t Referred To Contact Referral ID Status Reason Start Date Expiration Date Visits Re quested Visits Authorized [id number] 1 1 Encounter Details Date Type Department Care Team (Latest Contact Info) Description 10/15/2023 3:18 PM CDT - 10/17/2023 10:57 AM CDT Hospital Encounter [facility] 4W TELE [address] [place], [place] [id number] Nikole Shinezoran [address] [place], [place] [id number] Marcus Rahman MD [address] [place] [address] Marco Carter MD [address] [facility] [facility] [address] [place] [address] Hospitalist Discharge Disposition: Home Health Care Svc Social History Tobacco Use Types Packs/Day Years [...] and heating? Not hard at all 10/17/2023 [employer] Occup[employer] ional Health - Occupational Stress [...] slept in a detention (including now)? No 10/17/2023 Sex and Gender [...] Mass Index 36.93 10/15/2023 9:20 PM CDT documented in this encounter Functional Status Functional [...] No 10/17/2023 documented as of this encounter Discharge Summaries * Marco Carter MD - 10/17/2023 10:57 AM CDT HOSPITALIST DISCHARGE SUMMARY NAME: Jose Rutledge : 1965 DATE OF ADMISSION: 10/15/2023 DATE OF DISCHARGE: 10/17/2023 FINAL DIAGNOSES: ??? Include all new and active diagnoses. Probable PICC line infection DISCHARGE DESTINATION: Home, Home health FOLLOW UP PLAN: Include list of active issues: ??? Next steps ? ? Testing & Referrals Scheduled: ? ? Testing & Referrals TBD: ??? Timing ??? Provider 1. F/u with PCP OP PENDING TEST RESULTS: None INCIDENTAL FINDINGS REQUIRING FOLLOW UP: None READMISSION RISK SCORE: 19+: high 30 day readmission risk 0-18: low-moderate 30 day readmission risk 21 at 1:03 PM 10/17/2023. Secondary/Resolved/Significant Prior Diagnoses: PRESENTING HISTORY: Per Dr. Carter : 58 y/o WM with h/o Infected RHA, Obesity, NATALY, DM, RLS, HTN & CAD who presented to the ER 2/2 concerns for possible??infected PICC line. HOSPITAL COURSE: (include consults and procedure details) 58 y/o WM with h/o Infected RHA, Obesity, NATALY, DM, RLS, HTN & CAD who presented to the ER 2/2 concerns for possible??infected PICC line. ?? Initial VSS, lab work unremarkable, CT Hip showed is no lucency around the prosthesis to indicate loosening and intramedullary infection. No evidence of osteomyelitis is identified. There is no evidence of fracture, dislocation or suspicious intrinsic bony lesion. PICC line was exchanged by IV therapy. Seen by Orthopedic surg who recommended continue abx. He remained stable and was d/c home [facility]. POA ACTIVATED STATUS: NO RADIOLOGY: (last 7 days) + additional pertinent studies No results found. ADDITIONAL PERTINENT STUDIES: RECENT/NOTABLE LABS: include pertinent positives Recent Labs Component Name 10/15/23 1319 SODIUM 138 POTASSIUM 4.6 CHLORIDE 106 CO2 23 BUN 15 CREATININE 0.80 EGFR >90 Recent Labs Component Name 10/15/23 1319 WBC 8.5 HGB 9.0* HCT 29.2* PLTCOUNT 297 Recent Labs Component Name 12/14/22 1933 07/14/14 1359 INR 1.1 1.2 VITALS/MENTAL STATUS/NOTIBLE EXAM FINDINGS Most recent weight: Weight: 123.5 kg (272 lb 4.8 oz) (10/15/232119) BP 115/60 (BP Cuff Size: A) Pulse 76 Temp 98.3 ??F (36.8 ??C) (Oral) Resp 17 Ht 1.829 m (6') Wt 123.5 kg (272 lb 4.8 oz) SpO2 95% Exam: General appearance: alert, cooperative, no distress Heart: regular rhythm, normal S1 and S2, without murmurs, rubs or gallops Lungs: breath sounds normal and symmetric; no rales or wheezes Abdomen: soft without mass, non-tender, with normal bowel sounds Extremities: no clubbing, cyanosis or edema DISCHARGE MEDICATIONS AND ALLERGIES This list of medications is preliminary and tentative: please see the Patient Discharge Instructions for patients discharged home or the Facility Transfer Order for the final and accurate medication list. Current Discharge Medication List START taking these medications Instructions Authorizing Provider acetaminophen 325 MG tablet Commonly known as: Tylenol Take 2 (two) tablets by mouth every 4 hours as needed for Fever (For temperature GREATER than 101 )Maximum allowable Acetaminophen amount = 4 Grams (4000 mg) / 24 hours. Marco Carter MD diclofenac sodium 1 % gel Commonly known as: Voltaren Apply 2 (two) g to affected area 4 times daily Marco Carter MD CONTINUE taking these medications which have NOT CHANGED Instructions Authorizing Provider amLODIPine 10 MG tablet Commonly known as: Norvasc Quantity Dispensed: 30 tablet Take 1 (one) tablet by mouth once daily Praveen Kaufman MD apixaban 2.5 MG tablet Commonly known as: Eliquis Quantity Dispensed: 60 tablet Take 1 (one) tablet by mouth 2 times daily for 30 days Praveen Kaufman MD buPROPion XL 24hr 300 MG tablet Commonly known as: Wellbutrin-XL carvedilol 25 MG tablet Commonly known as: Coreg Take 1 (one) tablet by mouth 2 times daily ceFAZolin 2 g in 0.9% NaCl IV 0.9 % 50 mL IVPB 2 (two) g by Intravenous route every 8 hours Praveen Kaufman MD clopidogrel 75 MG tablet Commonly known as: plaVIX Take 1 (one) tablet by mouth once daily Start taking 12/19/22. Rosita Tuttle MD cyclobenzaprine 10 MG tablet Commonly known as: Flexeril Take 1 (one) tablet by mouth 2 times daily DSS 100 MG Take 100 mg by mouth 2 times daily ergocalciferol 1.25 MG (95128 UT) capsule Commonly known as: Drisdol Take 1 (one) capsule by mouth ferrous sulfate 325 (65 FE) MG tablet Take 1 (one) tablet by mouth once daily metFORMIN 1000 MG tablet Commonly known as: Glucophage Take 1 (one) tablet by mouth 2 times daily One-A-Day Mens Health Formula Tabs oxyCODONE-acetaminophen 5-325 MG tablet Commonly known as: Percocet Quantity Dispensed: 25 tablet Take 1 (one) tablet by mouth every 4 hours as needed for Pain Praveen Kaufman MD pantoprazole EC 40 MG tablet Commonly known as: Protonix Quantity Dispensed: 30 tablet Take 1 (one) tablet by mouth once daily Reasons: Stomach Ulcer Rosita Tuttle MD pregabalin 50 MG capsule Commonly known as: Lyrica Quantity Dispensed: 70 capsule Take 1 (one) capsule by mouth 2 times daily Blaire [place] Probiotic 1-250 BILLION-MG Caps rosuvastatin 20 MG tablet Commonly known as: Crestor Take 2 (two) tablets by mouth every morning sertraline 50 MG tablet Commonly known as: Zoloft Take 1 (one) tablet by mouth once daily Trulicity 1.5 MG/0.5ML injection Generic drug: dulaglutide ALLERGIES: Allergies Allergen Reactions ??? Penicillins Angioedema DISCHARGE INSTRUCTIONS Referral to Home Health Care Why you were hospitalized Your discharge diagnosis is: PICC line infection [[id number]] Follow up with Primary Care Provider (PCP) Our records show your Primary Care Provider (PCP) is Faisal Richardson DO. Follow Up Instructions for Patient: Within 5 Days from Discharge Diabetic diet -- Limit your calories to 1800 calories per day. Activity as tolerated Rest today, and increase your activity level tomorrow as tolerated. ISOLATION PRECAUTIONS No active isolations. Isolation due to No active infections. I spent 33 minutes in addition to direct patient care summarizing this patient's hospital stay, reviewing and updating the inpatient problem list, reviewing discharge medications, instructions, discussing discharge care planand discharge follow up labs/studies/doctor visits with the patient and or POA/family. Marco Carter MD documented in this encounter Discharge Instructions * Discharge Instructions* Nova Wasserman RN - 10/16/2023 3:41 PM CDT 10/24/2023 Status: Patricia Time: 12:00 PM Length: 15 Visit Type: ORTHO FIRST POST OP [6417] Copay: $0.00 Provider: Torrey Lafleur MD documented in this encounter Medications at Time [...] MG/0.5ML injection 10/17/2021 ergocalciferol (Drisdol) 1.25 MG (07850 UT) capsule Take 1 (one) capsule by mouth 05/02/2022 ferrous sulfate 325 (65 FE) MG tablet Take 1 (one) tablet by mouth once daily metFORMIN (Glucophage) 1000 MG tablet Take 1 (one) tablet by mouth 2 times daily 03/05/2022 Multiple Vitamins-Minerals (One-A-Day Mens Health Formula) TABS 08/06/2021 oxyCODONE-acetaminoph en (Percocet) 5-325 MG tabletIndications:Inf ection of prosthetic joint, initial encounter ([facility]) Take 1 (one) tablet by mouth every [...] as of this encounter Progress Notes * Marco Carter MD - 10/17/2023 10:57 AM CDT Progress Note Admit Date: 10/15/2023 3:18 PM Hospital Day: 2 Clinical Course 58 y/o WM with h/o Infected RHA, Obesity, NATALY, DM, RLS, HTN & CAD who presented to the ER 2/2 concerns for possible infected PICC line. Initial VSS, lab work unremarkable, CT Hip showed is no lucency around the prosthesis to indicate loosening and intramedullary infection. No evidence of osteomyelitis is identified. There is no evidence of fracture, dislocation or suspicious intrinsic bony lesion. Orthopedic surg consulted. New Symptoms Patient has no new symptoms Data Vitals: 10/16/23 1923 10/16/23 2336 10/17/23 0520 10/17/23 0828 BP: 141/53 120/60 120/55 115/60 Pulse: 81 82 80 76 Resp: 18 18 16 17 Temp: 98.3 ??F (36.8 ??C) 98.6 ??F (37 ??C) 97.6 ??F (36.4 ??C) 98.3 ??F (36.8 ??C) SpO2: 96% 98% 98% 95% Weight: Height: No intake or output data in the 24 hours ending 10/17/23 1253 My review of labs, imaging, notes and other tests shows no new significant findings. Recent Labs Component Name 10/15/23 1319 10/03/23 0851 09/25/23 0141 09/24/23 1058 WBC 8.5 - 9.9 11.8* HGB 9.0* 8.4* 10.8* 12.6* HCT 29.2* 26.7* 33.6* 38.9 PLTCOUNT 297 - 165 194 Recent Labs Component Name 10/15/23 1319 09/25/23 0141 09/24/23 1058 SODIUM 138 138 137 POTASSIUM 4.6 4.0 4.2 CHLORIDE 106 106 105 CO2 23 22 23 BUN 15 14 14 CREATININE 0.80 0.88 0.90 GLUCOSE 118* 182* 178* CALCIUM 9.4 8.6 9.4 MEDICATIONS FOR CURRENT ENCOUNTER: ?? SCHEDULED MEDICATIONS: ?? CONTINUOUS MEDICATIONS: ?? No current facility-administered medications for this encounter. ?? PRN MEDICATIONS: ?? No current facility-administered medications for this encounter. Exam General appearance: alert, cooperative, no distress Heart: regular rhythm, normal S1 and S2, without murmurs, rubs or gallops Lungs: breath sounds normal and symmetric; no rales or wheezes Abdomen: soft without mass, non-tender, with normal bowel sounds Extremities: no clubbing, cyanosis or edema Assessment and Plan # Probable PICC line infection == s/p PICC line exchange on 10/15. # Infected RHA == Continue ancef till 11/13/23, f/u with primary orthopedic surg OP # Obesity == Life style modification # NATALY == CPAP hs # DM == Continue SSI, diabetic diet # Depression == Continue Zoloft 50mg qd # HTN == Continue amlodipine 10mg qd, coreg 25mg bid # CAD == Continue statins/BB/plavix DVT prophylaxis Eliquis Dispo; Home with D/w RN Marco Carter MD,MPH 10/17/2023 * Leatha Gibson, PT - 10/17/2023 9:01 AM CDT PHYSICAL THERAPY INITIAL EVALUATION AND DISCHARGE Physical Therapy Evaluation complete. See Filed Flowsheet under Summary for details. Patient OK to be seen for evaluation per nursing. DISCHARGE RECOMMENDATIONS: Pt indep with household mobility and transfers. Reports deficits in strength and higher level balance. Recommend OPPT once pt is no longer home bound/ receiving HH. Discharge PT Discharge Recommendations: Patient would benefit from OP Therapy: PT PPE worn by staff: gloves AM-PAC Basic mobility score for this patient is Mobility Raw Score:: 23 SUBJECTIVE: History of Present Illness or Injury:Jose Rutledge is a 58 year old male who presents to PT today with the following diagnoses: 1. Pain of right hip 2. Right hip pain 3. Infection of peripherally inserted central catheter (PICC), initial encounter 4. Personal history of infected joint Precautions: RLE WBAT Subjective: I'm moving my leg much better today Patient/ Family stated goal: Agreeable to ambulate into the [place] PLOF: Type of Residence: Private Residence Lives with:: Spouse Home Structure: One Story Steps to Enter: 1 Equipment at Home: Chair-Shower;Hand Held Shower;Toilet Seat - Raised;Walker-2 Wheeled;Walker-Standard Mobility: Ambulate-In Home ;With Assistive Device (cane depending on pain level) Fallen Within 6 Mos: No Have Help at Home?: Yes, there is help at home now How often is assistance provided?: Patient reports his can assist at home. Using adaptive equipment for dressing Objective: Cognition: Orientation Level: Oriented X4 Level of Consciousness-Adult: Alert Cognition: Follows Commands-Consistent;Attention/concentration-normal for age;Processing-Appropriate Mobility: Supine to Sit: Modified [place] Sit to Supine: Modified [place] Sit to Stand: Modified [place] Stand to Sit: Modified [place] Distance Ambulated: (150 with SPC+ 150 without AD) Ambulation: Assistive Device: Gait Belt Ambulation: Level of Assistance: Modified [place] Ambulation: Gait Deviations: Antalgic;Mary - Decreased;Increased Trunk Flexion;Trunk sway Activity Tolerance and Oxygen Requirements: Activity Tolerance: Requires rest breaks On Room Air Treatment this date: Pt presents supine in bed, agreeable to PT eval. Completes sup>sit and sit>stand indep. Ambulates into [place] with antalgic gait. Able to transition to without AD. Returned to supine end of session and encouraged to continue HEP. Educated that PT will complete orders at this time, and pt verbalizes understanding. Call light and phone left nearby. Denies further needs at this time. Refer to Plan of Care for PT goals. Assessment/Plan for future sessions: Pt tolerates session well, with ability to ambulate community distance and transfer indep. Pt denies need for further acute care PT services at this time. Will complete orders 10/16. If this is the last Physical Therapy visit, this serves as the discharge summary. All vitals stablethroughout visit; All lines, monitors, IV's, equipment in place and intact pre and post visit. Elisabet Gibson DPT Ascom #[phone] * Philipp Torres RN - 10/17/2023 5:15 AM CDT Problem: Pain/Discomfort Goal: Patient exhibits reduced pain/discomfort as evidenced by pain scores Outcome: Progressing Goal: Patient uses pharmacological and non-pharmacological pain management strategies. Outcome: Progressing Goal: Patient verbalizes acceptable level of pain relief and ability to engage in desired activity. Outcome: Progressing Problem: Pain/Discomfort Goal: Patient exhibits reduced pain/discomfort as evidenced by pain scores Outcome: Progressing Goal: Patient uses pharmacological and non-pharmacological pain management strategies. Outcome: Progressing Goal: Patient verbalizes acceptable level of pain relief and ability to engage in desired activity. Outcome: Progressing * Nova Wasserman RN - 10/16/2023 3:33 PM CDT Care Coordination Initial Assessment Anticipated Discharge Date: 10/16/23 Transportation at Discharge: Family Anticipated level of care at discharge: Home Health - IV and Home Health Care Secured., Anticipated level of care provider: [facility], [facility] Babita POWELL Pet Care Attendant updated [facility] Care on DC in am and new Resumption of Care Orders sent. CM spoke to Deena with [facility] to update DC in am resume IV antibiotic treatment plan. Prior to admission level of care: Home Health - IV and Home Health Care Prior to admit provider: [facility], [facility] Patient Goals: Return home Plans: Discharge needs identified. See progress notes for details. Case Management to follow for discharge planning. Comments: 58-year-old male who presented with possible infected PICC line. Exchange of the PICC line 10.15.23-- site of prior PICC line insertion no erythema or swelling Continue on IV antibiotics. ??Lives with: Spouse ysical Limitations: None Requires Assistance With: None Preferred Pharmacy: [facility] [place] [address] [facility] [phone] [address] [facility] [phone] READMISSION RISK SCORE is 21 at 3:33 PM 10/16/2023. Met with patient Family Support (name and phone): Extended Emergency Contact Information Primary Emergency Contact: Marguerite Rutledge Address: [address] [place] [address] [place] Relation: Spouse Patient or human resources hr representative requests care coordination reach out to family or caregiver listed above regarding discharge planning and at time of discharge? Yes Patient/Family provided with list of resources? No Preferred Provider / High Quality Network List given?: No Reason for provider choice: Pt. choice - previous provider Equipment at Home: Chair-Shower;Hand Held Shower;Toilet Seat - Raised;Walker-2 Wheeled;Walker-Standard Assistant Guest Services Manager Referral: No Will continue to follow. For any questions or needs please contact: Pet Care Attendant: Nova Wasserman RN., Ascom: [phone] * Philipp Torres RN - 10/15/2023 9:42 PM CDT Skin Cosign On Admission: Room #: 404 Admission Date: Primary RN:Philipp Skin Assessment: 10/15/232108 Skin Skin (WDL) WDL Skin Exceptions: Cosigner: Crystal documented in this encounter H&P Notes * Cristina Davenport APRN-DIRECTOR DATA - 10/16/2023 5:10 AM CDT H&P for Dr. [facility] Annamaria Davenport DIRECTOR FIELD SERVICES- FOOD SERVICE TRAY ATTENDANT Chief Complaint Patient presents with ??? 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 Reportedly noticed some redness around the PICC line insertion site that had him concerned. Denied any fevers chills or night sweats no pain at the site per se He states the PICC line was placed September for continuation of IV antibiotics.. was hospitalized in September for right prosthetic hip infection and underwent I and D with placement of antibiotic beads. Cultures at that time grew group B strep for which she was initiated on IV antibiotics and discharged home with a PICC line. He has been following with orthopedic services who instructed him to go to the emergency room for concerns of PICC line infection. Additionally had complaints of right hip pain in the ED. On arrival to the emergency room his initial vital signs temperature 98.4?? heart rate 86 respirations 18 blood pressure 141/72 room air O2 sats 98 percent. Basic labs were all fairly benign. CT scan of the right hip suggested findings concerning for extra-capsular fluid collections For which Orthopedic surgery was consulted who felt There is low concern for recurrence of infection and hence no surgical intervention was recommended except for a follow-up on the of this month. Wt that being said he is being admitted for replacement of the PICC line Summary of chart review of past hospitalizations/work up pertaining to the current illness: Was admitted to our services in September, with right prosthetic hip hardware infection. And underwent an irrigation and debridement with wound application. Past Medical History: Diagnosis Date ??? Aortic stenosis mod-sev on 2022 echo ??? CAD (coronary artery disease) ??? High blood pressure ??? LVH (left ventricular hypertrophy) ??? Mixed hyperlipidemia ??? Restless leg syndrome ??? S/P PICC central line placement 10/03/2023 R Basilic Vein PICC Placement by [facility] RN ??? S/P PICC central line placement 10/15/2023 L Basilic Vein PICC Placement by [facility] RN ??? Sleep apnea uses cpap ??? Stroke (HCC) 2021 balance residual ??? Type 2 diabetes mellitus without complications (HCC) Past Surgical History: Procedure Laterality Date ??? Appendectomy ??? Cardiac Catherization 2018 no intervetion ??? COLONOSCOPY ??? DEBRIDEMENT Right 09/27/2023 Right; REPEAT IRRIGATION AND DEBRIDEMENT RIGHT HIP, REMOVAL OF ANTIBIOTIC BEADS x20, PLACEMENT OF ANTIBIOTIC BEADS x20, WOUND VAC EXCHANGE RIGHT HIP ??? DEBRIDEMENT Right 10/02/2023 Right; IRRIGATION AND DEBRIDEMENT HIP -- RIGHT HIP, DELAYED PRIMARY CLOSURE OF COMPLEX WOUND, REMOVAL OF ANTIBIOTIC BEADS, REVISION OF BOTH HIP COMPONENTS -- RIGHT HIP, WOUND VAC APPLICATION ??? EGD ??? ENDOSCOPY, UPPER N/A 12/15/2022 [...] No Stress: No Stress Concern Present (12/14/2022) [employer] Occupational Health - Occupational Stress Questionnaire ??? Feeling of Stress : Not at all Housing Stability: Low Risk (12/14/2022) Housing Stability Vital Sign ??? Unable to Pay for Housing in the Last Year: No ??? Number of Places Lived in the Last Year: 1 ??? Unstable Housing in the Last Year: No Penicillins Medications Prior to Admission Medication Sig Dispense Refill ??? amLODIPine (Norvasc) 10 MG tablet Take 1 (one) tablet by mouth once daily 30 tablet 0 ??? apixaban (Eliquis) 2.5 MG tablet Take 1 (one) tablet by mouth 2 times daily for 30 days 60 tablet 0 ??? Bacillus Coagulans-Inulin (Probiotic) 1-250 BILLION-MG CAPS ??? buPROPion XL 24hr (Wellbutrin-XL) 300 MG tablet ??? carvedilol (Coreg) 25 MG tablet Take 1 (one) tablet by mouth 2 times daily ??? ceFAZolin 2 g in 0.9% NaCl IV 0.9 % 50 mL IVPB 2 (two) g by Intravenous route every 8 hours ??? clopidogrel (plaVIX) 75 MG tablet Take 1 (one) tablet by mouth once daily Start taking 12/19/22. ??? cyclobenzaprine (Flexeril) 10 MG tablet Take 1 (one) tablet by mouth 2 times daily ??? Docusate Sodium (DSS) 100 MG Take 100 mg by mouth 2 times daily ??? dulaglutide (Trulicity) 1.5 MG/0.5ML injection ??? ergocalciferol (Drisdol) 1.25 MG (67866 UT) capsule Take 1 (one) capsule by mouth ??? ferrous sulfate 325 (65 FE) MG tablet Take 1 (one) tablet by mouth once daily ??? metFORMIN (Glucophage) 1000 MG tablet Take 1 (one) tablet by mouth 2 times daily ??? Multiple Vitamins-Minerals (One-A-Day Mens Health Formula) TABS ??? oxyCODONE-acetaminophen (Percocet) 5-325 MG tablet Take 1 (one) tablet by mouth every 4 hours as needed for Pain 25 tablet 0 ??? pantoprazole EC (Protonix) 40 MG tablet [...] tablet by mouth once daily Review of Systems (All positive symptoms highlighted ) Gen: wt loss, fever, chills, night sweats, dizziness, fatigue, weakness Skin: skin/hair/nail changes, rash, ulcers or bites,pruritis Head: headaches, trauma, vertigo, syncope, Eyes: diplopia, vision change , discharge ,pain Ears:tinnitus, discharge from the ears, pain Nose: rhinitis, sinusitis, discharge,epistaxis Throat: hoarseness, sore throats, tonsillitis Mouth: soreness of mouth or tongue, dental caries, gum disease Neck: swelling, enlargement of lymph nodes, stiffness, Pain Pulm: Pain, SOB, wheezing, dyspnea, orthopnea, cough, sputum, hemoptysis, asthma CV: Palpitations, pain in chest, exertional dyspnea, orthopnea, cyanosis GI: Appetite changes, changes in weight, dysphagia, nausea, abdominal pain, vomiting, diarrhea constipation, jaundice, blood in stool : polyuria, nocturia, dysuria, hematuri, urinary retention, urinary frequency, incontinence, passage of stones DIRECTOR OF IN SERVICE EDUCATION: Cranial: disturbances of smell, visual disturbances, facial weakness, taste disturbances , hearing/equilibrium disturbances, difficulties in speech, swallowing Motor: paralysis, atrophy, gait, incoordination, tremors Sensory:pain, parasthesia Autonomic: control of urination and defecation, sweating, erythema, cyanosis, pallor, reaction to heat and cold Psych: difficulties with interpersonal relationships, impulse control, Mood swings, difficulty withconcentration Hemopoeitic: anemia, lymphadenopathy, bleeding or clotting Endocrine: intolerance to heat or cold, skin pigmentation, hair distribution, goiter, exophthalmos,dryness of skin or hair, 3 P's, glycosuria, Allergic and Immunologic: dermatitis, urticaria, angioedema, eczema, hay fever, vasomotor rhinitis,asthma, Musculoskeletal: fractures, dislocations, sprains, arthritis, myositis, pain, swelling, stiffness, wasting, atrophy, lower extremity edema. Lymph: enlargement, pain, edema PHYSICAL EXAM Vitals: 10/15/23 2120 10/15/23 2357 10/16/23 0330 10/16/23 0744 BP: 142/72 162/67 130/70 Pulse: 73 67 Resp: 18 20 Temp: 97.6 ??F (36.4 ??C) 97.8 ??F (36.6 ??C) SpO2: 96% 97% Weight: 123.5 kg (272 lb 4.8 oz) Height: 1.829 m (6') General: In no apparent distress Skin:No rashes or ulceration, no clubbing or cyanosis Head:Normocephalic, atraumatic Eyes:sclera anicteric, conjuctiva clear, EOMI, PERRLA ENT: Hearing grossly intact, oropharynx pink and moist, no pharyngeal erythema or exudates Neck: No JVD, no carotid bruits, no adenopathy. Heart: Regular rate and rhythm, normal S1 S2, no rubs, click or murmur . Lungs:Symetrical expansion with respirations, unlabored respirations, clear breath sounds anteriorly and posteriorly. No spinal or CVA tenderness. Abdomen: obese ,bowel sounds present, non-tender, no masses or guarding, no appreciable organomegaly to palpation or percussion. No abdominal bruits. Musculoskeletal:no joint pain on movement, no swelling or erythema of joints. Normal ROM, stregth 5/5 upper and lower extremeties bilaterally. Neuro:A&O X3, cranial nerves II-XII grossly intact. No focal deficits.. Review of pertinent laboratory data: Recent Labs Component Name 10/15/23 1319 10/03/23 0851 09/25/23 0141 09/24/23 1058 WBC 8.5 - 9.9 11.8* HGB 9.0* 8.4* 10.8* 12.6* HCT 29.2* 26.7* 33.6* 38.9 PLTCOUNT 297 - 165 194 Recent Labs Component Name 10/15/23 1319 SODIUM 138 POTASSIUM 4.6 CHLORIDE 106 CO2 23 BUN 15 CREATININE 0.80 GLUCOSE 118* CALCIUM 9.4 ALBUMIN 3.0* ALKPHOS 153* ALT 12 AST 21 TBIL 0.5 TPROT 7.5 EGFR >90 Recent Labs Component Name 11/27/22 0950 COLORUA Yellow SPECGRAVUA 1.019 PHUA 5.0 PROTEINUA Negative BLOODUA Negative LEUKOCYTEUA Negative NITRITEUA Negative GLUCOSEUA Negative KETONEUA Negative BILIRUBINUA Negative UROBILINUA Negative No results for input(s): BNP in the last 40657 hours. No results for input(s): TROPPOCT in the last 82146 hours. No results for input(s): TROPONIN in the last 97662 hours. No results for input(s): BNPPOCT in the last 12772 hours. No results for input(s): CKMBPOCT in the last 20332 hours. No results for input(s): CKMB in the last [address] HIP RIGHT W CONTRAST Final Result PROCEDURE: CT HIP RIGHT W CONTRAST DATE/TIME [...] Benedicto Ortiz MD on 10/15/2023 7:16 PM XR PELVIS W RIGHT HIP 2VW Final Result Procedure: XR PELVIS W RIGHT HIP 2VW Exam Date: 10/15/2023 1:16 PM Location: [facility] Indication: M25.551: Pain in right hip Findings/impression: The study is compared to the exam from 09/24/2023. Again noted are changes of total hip replacement. The prosthesis appears unchanged. The cerclage wire has been removed. No fracture or loosening is appreciated. > Interpreting Provider: Viral Peña MD on 10/15/2023 1:24 PM ASSESSMENT/PLAN PICC line infection? -- had exchange of the PICC line today -- site of prior PICC line insertion no erythema or swelling -- Continue on IV antibiotics Hypertension -- To resume home medications -- blood pressure stable for now Type 2 diabetes mellitus -- monitor Accu-Cheks -- hold oral hypoglycemic agents -- basal Lantus and SSI -- check A1c Right hip pain -- CT did not demonstrate any signs of infection -- was evaluated per Orthopedic surgery -- discussed with -- no surgical intervention needed at this time -- will follow up as out patient. NATALY -- on CPAP at home Prophylaxis -- on Eliquis Discussed with Dr. Carter Further management of the patient will be guided by the work up described above. This dictation was created by using [employer] Fluency Direct. Please excuse any financial data analyst errors. documented in this encounter Consult Notes * Torrey Lafleur MD - 10/16/2023 6:13 AM CDTAssociated Order(s): IP CONSULT TO ORTHOPEDIC SURGERY [facility] Orthopedic Surgery Consultation Note Jose Rutledge, 58 year old, male : 1965 CSN: [id number] Primary Care Physician: Faisal Richardson DO Chief Complaint Chief Complaint Patient presents with ??? Picc Line Change Pt thinks his PICC line right arm is infected/placed 10/04/23 after hip replacement infection Admission Date/Time: 10/15/2023 3:18 PM Today's Date/Time: 10/16/2023 6:13 AM HPI Jose Rutledge is a 58 year old male who presented to [place]' ED for evaluation of a right PICC line as he was concerned it may be infected. Mr. Rutledge has a history of right prosthetic hip infection and underwent I&D with placement of antibiotic beads x2 (09/24/23 and 09/27/23), followed by bearing exchange and closure (10/02/23). Cultures grew group B strep and he was placed on IV antibiotics, discharged with a PICC line. He had contacted our office due to concern of the PICC line being infected and was instructed to present to the ED for further evaluation. While here, he endorsed right hip pain so a CT right hip with contrast was ordered. Orthopedic surgery was consulted for the fluid ex tra-capsular fluid collections found. PMHx Past Medical History: Diagnosis Date ??? Aortic stenosis mod-sev on 2022 echo ??? CAD (coronary artery disease) ??? High blood pressure ??? LVH (left ventricular hypertrophy) ??? Mixed hyperlipidemia ??? Restless leg syndrome ??? S/P PICC central line placement 10/03/2023 R Basilic Vein PICC Placement by [facility] RN ??? S/P PICC central line placement 10/15/2023 L Basilic Vein PICC Placement by [facility] RN ??? Sleep apnea uses cpap ??? Stroke (HCC) 2021 balance residual ??? Type 2 diabetes mellitus without complications (HCC) PSHx Past Surgical History: Procedure Laterality Date ??? Appendectomy ??? Cardiac Catherization 2018 no intervetion ??? COLONOSCOPY ??? DEBRIDEMENT Right 09/27/2023 Right; REPEAT IRRIGATION AND DEBRIDEMENT RIGHT HIP, REMOVAL OF ANTIBIOTIC BEADS x20, PLACEMENT OF ANTIBIOTIC BEADS x20, WOUND VAC EXCHANGE RIGHT HIP ??? DEBRIDEMENT Right 10/02/2023 Right; IRRIGATION AND DEBRIDEMENT HIP -- RIGHT HIP, DELAYED PRIMARY CLOSURE OF COMPLEX WOUND, REMOVAL OF ANTIBIOTIC BEADS, REVISION OF BOTH HIP COMPONENTS -- RIGHT HIP, WOUND VAC APPLICATION ??? EGD ??? ENDOSCOPY, UPPER N/A 12/15/2022 [...] Right ??? SHOULDER ARTHROPLASTY, TOTAL Left Social Hx Social History Tobacco Use ??? Smoking status: Never ??? Smokeless tobacco: Never Substance Use Topics ??? Alcohol use: Not Currently Family Hx family history includes Cancer in his father; Diabetes in his mother; Hypertension in his mother. Allergies Allergies Allergen Reactions ??? Penicillins Angioedema Medications Current Facility-Administered Medications Medication ??? *Hold/Avoid Medication ??? 0.9% NaCl injection 0-10 mL ??? 0.9% NaCl injection 10-40 mL ??? 0.9% NaCl injection 10-40 mL ??? amLODIPine (Norvasc) tablet 10 mg ??? carvedilol (Coreg) tablet 25 mg ??? ceFAZolin (Ancef) 2 g in 0.9% NaCl IV 50 mL IVPB ??? diclofenac sodium (Voltaren) 1 % gel 2 g ??? iopamidol (Isovue 370) 76 % contrast ??? lidocaine (Lidoderm) 5 % patch 1 patch ??? pantoprazole EC (Protonix) tablet 40 mg Review of Systems A 12 point review of systems was performed and was negative except for what was mentioned in the HPI Physical Exam Blood pressure 162/67, pulse 73, temperature 97.6 ??F (36.4 ??C), temperature source Oral, resp. rate 18, height 1.829 m (6'), weight 123.5 kg (272 lb 4.8 oz), SpO2 96%. Lab results smartLinks are not currently available Lab results smartLinks are not currently available General: Awake, cooperative, in no acute distress. CV: Regular rate Pulm: No audible wheezing, no use of accessory muscles Abd: soft, nontender, nondistended Musculoskeletal: Right lower extremity: -Appearance: posterior hip incision, skin almost fully healed with non- absorbable sutures in place -Tenderness: nontender to palpation of leg, and foot; appropriate mild tenderness with palpation around the incision -ROM: nontender to passive range of motion of hip, knee, ankle, foot. Negative log roll. Negative axial load. No crepitation -Motor: Able to plantarflex ankle, able to dorsiflex ankle, able to plantarflex great toe, able to dorsiflex great toe -Sensation: intact to light touch in DP/SP/Sural/Saphenous/Tibial nerve distributions, patient endorses normal sensation in the foot -Vascular: palpable DP/ PT pulse with toes warm and well perfused Imaging - x-ray of pelvis with right hip reviewed. Demonstrates revision total hip arthroplasty with unchanged alignment compared to prior x-rays. - CT right hip with contrast reviewed. Re-demonstrates revision total hip arthroplasty without evidence of loosening or periprosthetic fracture. There are small areas of possible fluid collection that appear to be extra-capsular, not communicating with the implant and likely representing post-surgical changes. Assessment/Plan: 58 year old male with history of right hip PJI who presents for concern of right arm PICC line infection. Imaging of his right hip has been reviewed. Findings are commensurate with recent right hip surgery and there is low concern for recurrence of an infection. No plan for further surgeries at this time. Patient should continue IV antibiotics regimen set forth by infectious disease for prior right hip PJI. He will need to follow up with Dr. Lafleur in clinic after discharge. 1. No plan for further orthopedic interventions at this time 2. Weight bearing Status: WBAT RLE with PHP 3. Continue IV antibiotics per ID regimen 4. Pain Control per primary team 5. OK for diet from Ortho standpoint 6. Patient was counseled to the nature of their diagnosis and demonstrated understanding. Questionssolicited and answered 7. Mr. Rutledge has a scheduled follow up appointment with Dr. Lafleur on 10/24/2023 @ 12:00PM. He shouldkeep this appointment. He may contact our office if he needs to re-schedule this appointment. Germain Rucker MD 10/16/2023 6:13 AM Patient seen and examined with resident. I confirm history, exam, assessment and plan. In addition I note: Patient returns to hospital for concern for infected PICC line after previous irrigation debridement with retention of implants for infected right hip arthroplasty. He states his psoriasis is gettingmuch better. He states that his pain is much better. He is able to lift his leg now. He has been doing home therapy. He is taking Eliquis. He denies any wound drainage or other problems. He is wondering if his stitches can come out at this point. He denies fevers or chills. He has already had a PICC line replaced. He states his thigh pain is improved. No current facility-administered medications on file prior to encounter. Current Outpatient Medications on File Prior to Encounter Medication Sig Dispense Refill ??? amLODIPine (Norvasc) 10 MG tablet Take 1 (one) tablet by mouth once daily 30 tablet 0 ??? apixaban (Eliquis) 2.5 MG tablet Take 1 (one) tablet by mouth 2 times daily for 30 days 60 tablet 0 ??? Bacillus Coagulans-Inulin (Probiotic) 1-250 BILLION-MG CAPS ??? buPROPion XL 24hr (Wellbutrin-XL) 300 MG tablet ??? carvedilol (Coreg) 25 MG tablet Take 1 (one) tablet by mouth 2 times daily ??? ceFAZolin 2 g in 0.9% NaCl IV 0.9 % 50 mL IVPB 2 (two) g by Intravenous route every 8 hours ??? clopidogrel (plaVIX) 75 MG tablet Take 1 (one) tablet by mouth once daily Start taking 12/19/22. ??? cyclobenzaprine (Flexeril) 10 MG tablet Take 1 (one) tablet by mouth 2 times daily ??? Docusate Sodium (DSS) 100 MG Take 100 mg by mouth 2 times daily ??? dulaglutide (Trulicity) 1.5 MG/0.5ML injection ??? ergocalciferol (Drisdol) 1.25 MG (90009 UT) capsule Take 1 (one) capsule by mouth ??? ferrous sulfate 325 (65 FE) MG tablet Take 1 (one) tablet by mouth once daily ??? metFORMIN (Glucophage) 1000 MG tablet Take 1 (one) tablet by mouth 2 times daily ??? Multiple Vitamins-Minerals (One-A-Day Mens Health Formula) TABS ??? oxyCODONE-acetaminophen (Percocet) 5-325 MG tablet Take 1 (one) tablet by mouth every 4 hours as needed for Pain 25 tablet 0 ??? pantoprazole EC (Protonix) 40 MG tablet [...] 10/03/2023 R Basilic Vein PICC Placement by [facility] RN ??? S/P PICC central line placement 10/15/2023 L Basilic Vein PICC Placement by [facility] RN ??? Sleep apnea uses cpap ??? Stroke (HCC) 2021 balance residual ??? Type 2 diabetes mellitus without complications (HCC) Past Surgical History: Procedure Laterality Date ??? Appendectomy ??? Cardiac Catherization 2018 no intervetion ??? COLONOSCOPY ??? DEBRIDEMENT Right 09/27/2023 Right; REPEAT IRRIGATION AND DEBRIDEMENT RIGHT HIP, REMOVAL OF ANTIBIOTIC BEADS x20, PLACEMENT OF ANTIBIOTIC BEADS x20, WOUND VAC EXCHANGE RIGHT HIP ??? DEBRIDEMENT Right 10/02/2023 Right; IRRIGATION AND DEBRIDEMENT HIP -- RIGHT HIP, DELAYED PRIMARY CLOSURE OF COMPLEX WOUND, REMOVAL OF ANTIBIOTIC BEADS, REVISION OF BOTH HIP COMPONENTS -- RIGHT HIP, WOUND VAC APPLICATION ??? EGD ??? ENDOSCOPY, UPPER N/A 12/15/2022 [...] alert Examination of the right hip reveals a healing scar with sutures in place. There is no active drainage on the dressing. I cannot express any fluid. He is able to perform straight leg raise on the right hip. He has no pain with loading of the hip. He can flex to 90, abduction 20, adduction 10, internal rotation of 10, external rotation of 20 with no pain. Distally he can dorsiflex and plantarflex both ankles and toes without difficulty. Dorsalis pedis is palpable X-rays: My independent interpretation/assessment of the AP pelvis and AP and lateral of the right hip reveals a well aligned revision right hip arthroplasty with removal of his proximal femoral cablecompared to previous examination My independent interpretation/assessment of the CT scan of the pelvis does not reveal any findings concerning for recurrent infection with some fluid around the right hip which is expected after revision surgery Assessment: Infected PICC line status post irrigation debridement of infected right hip arthroplasty Plan: We discussed we will see him back on the for removal of sutures given his psoriasis so that his wound heals well. We discussed his findings on CT scan and x-ray. Pain control. DVT prophylaxis. Physical therapy weightbearing as tolerated. Patient understood the treatment plan and all questions were answered. IV antibiotics per infectious disease. * Angelika Ponce RN - 10/15/2023 6:07 PM CDT PICC Placement at Bedside Type of line [...] placed using the Seldinger technique with a Left Basilic approach without complication. Ultrasound guidance was used to locate vessel. There was dark, non-pulsatile blood return in all ports and they were easily flushed with saline. PICC tip position was verified by ultrasound ECG device. This showed PICC tip in good position in the distal SVC. Reposition of the PICC was not indicated. Sterile dressing was applied to the insertion site. The patient tolerated the procedure well. Patient Guide Booklet and Fact Sheet for preventing infection given to patient. Reviewed with: patient and . Complications: None Angelika Ponce RN 10/15/2023 6:08 PM * Angelika Ponce RN - 10/15/2023 6:02 PM CDTAssociated Order(s): IP CONSULT TO VASCULAR ACCESS NURSE Consult received to assess current right basilic vein PICC, placed by [facility] VERITO RN on 10/03/23. Patient stated his Home Health RN told him his PICC site may be infected and recommended he come in to the ER. Upon assessment, it was noted that PICC insertion site is not protected by antimicrobial dressing, only transparent dressing that was barely intact. Insertion is red and tender, also of note a hard bump. Mild pressure put at the insertion site expressed minimal purulent-like drainage. Discussed assessment with Dr. Shine, who would like patient to have PICC line replaced since he has 4 weeks of IV antibiotics left to complete. Right UA PICC line removed and replaced with Left Basilic Vein PICC. Patient and educated on proper dressing and care of a PICC line. Angelika Ponce RN 10/15/2023 6:07 PM documented in this encounter ED Notes * Guille Aguilera RN - 10/15/2023 8:43 PM CDT Report called to Philipp PEREZ on 4W. * Guille Aguilera RN - 10/15/2023 8:00 PM CDT Attempted to call report to 4W. No answer x 1 @ 1999. * Guille Aguilera RN - 10/15/2023 7:33 PM CDT Pt self ambulatory with steady gait to restroom and back to bed. Pt reconnected to monitors. Dr. Shine at bedside at this time providing plan of care update to pt and . * Guille Aguilera RN - 10/15/2023 4:53 PM CDT Vascular access at bedside for removal of old PICC line and insertion of new PICC line. * Mely Shine DO - 10/15/2023 4:02 PM CDT Jose Rutledge [id number] ER AT [facility] History Chief Complaint Patient presents with ??? Picc Line Change Pt thinks his PICC line right arm is infected/placed 10/04/23 after hip replacement infection HPI: This is a 58-year-old male with a past medical history of right prosthetic hip infection and underwent I&D with placement of antibiotic beads x2 (09/24/23 and 09/27/23), followed by bearing exchange and closure (10/02/23). Cultures grew group B strep and he was placed on IV antibiotics, dischargedwith a PICC line. He presents to the ED with concern for infected PICC line. He states the PICC line was placed September. No fevers. Although he states the pain in the right hip is getting worse. Has not seen ortho since the last debridement. He is currently on cefazolin has been administering it by himself at home has not missed any doses although he did miss today since he has been in the emergency room. MDM: History is obtained from patient and is located in my HPI section. I also externally reviewed previous records that I had access to within [facility] and noted relevant statements in my HPI. Testing/imaging ordered/Differential diagnoses/MDM: The patient has debridement wound is covered with a bandage. Does have good DP pulses. Capillary refill normal. Will plan on CT of the hip to look for worsening infection and need for admission. Willplan on giving him ceftriaxone as he missed his dose of cefazolin at home. Will also have IV therapy come in to examine to see if they need to replace the PICC line. Code status patient/POA: full cde SDOH (social determinants of health) discussed with the patient at the bedside: I provided the community sports coordinator's information to help with any of the following SDOH concerns ([facility] [employer] [id number] [facility] [id number] ) This patient is not socially disadvantage. Has ability to access Healthcare, able to afford medication/tests. Has stable housing On reevaluation: (Time: 1929) On reevaluation, the patient states he feels better after antibiotics and pain meds Labs reviewed: No leukocytosis, hemoglobin at baseline Platelets WNL Normal bicarb Electrolytes WNL Kidney and liver functions WNL Imaging reviewed by radiology: CT hip: FINDINGS/IMPRESSION: ?? 1. The patient is status post right total hip arthroplasty. There is no lucency around the prosthesis to indicate loosening and intramedullary infection. No evidence of osteomyelitis is identified. There is no evidence of fracture, dislocation or suspicious intrinsic bony lesion. ?? 2. There is subcutaneous fat stranding of lateral aspect of the right hip which may represent edema or cellulitis. ?? 3. Along the surgical tract of the [...] their respective AP, transverse and cephalocaudal dimensions. ?? 4. There is no evidence of fluid in the joint space to indicate septic arthritis. ?? 5. The remainder of the subcutaneous fat, imaged muscles and the imaged intrapelvic structures are unremarkable. ?? 6. Moderate to severe degenerative disc disease at L5-S1 is noted. Vitals reviewed: WNL Conclusion/Consultations/Disposition/Follow up: The patient presents to the emergency room with infected PICC line also noted to have seroma versusabscess on the right hip status post recent debridement. Secondary to worsening pain will plan on admission with IV antibiotics. Ortho made aware. The patient is at moderate risk for deterioration. Will plan on admission Critical Care (if any): located in the CC section of the chart Past Medical History: Diagnosis Date ??? Aortic stenosis mod-sev on 2022 echo ??? CAD (coronary artery disease) ??? High blood pressure ??? LVH (left ventricular hypertrophy) ??? Mixed hyperlipidemia ??? Restless leg syndrome ??? S/P PICC central line placement 10/03/2023 R Basilic Vein PICC Placement by [facility] RN ??? S/P PICC central line placement 10/15/2023 L Basilic Vein PICC Placement by [facility] RN ??? Sleep apnea uses cpap ??? Stroke (HCC) 2021 balance residual ??? Type 2 diabetes mellitus without complications (HCC) Past Surgical History: Procedure Laterality Date ??? Appendectomy ??? Cardiac Catherization 2017 no intervetion ??? COLONOSCOPY ??? DEBRIDEMENT Right 09/27/2023 Right; REPEAT IRRIGATION AND DEBRIDEMENT RIGHT HIP, REMOVAL OF ANTIBIOTIC BEADS x20, PLACEMENT OF ANTIBIOTIC BEADS x20, WOUND VAC EXCHANGE RIGHT HIP ??? DEBRIDEMENT Right 10/02/2023 Right; IRRIGATION AND DEBRIDEMENT HIP -- RIGHT HIP, DELAYED PRIMARY CLOSURE OF COMPLEX WOUND, REMOVAL OF ANTIBIOTIC BEADS, REVISION OF BOTH HIP COMPONENTS -- RIGHT HIP, WOUND VAC APPLICATION ??? EGD ??? ENDOSCOPY, UPPER N/A 12/15/2022 [...] of Health Financial Resource Strain: Low Risk (10/17/2023) Overall Financial Resource Strain (CARDIA) ??? Difficulty of Paying Living Expenses: Not hard at all Food Insecurity: No Food Insecurity (10/17/2023) Hunger Vital Sign ??? Worried About Running Out of Food in the Last Year: Never true ??? Ran Out of Food in the Last Year: Never true Transportation Needs: No Transportation Needs (10/17/2023) PRAPARE - Transportation ??? Lack of Transportation (Medical): No ??? Lack of Transportation (Non-Medical): No Stress: No Stress Concern Present (10/17/2023) [employer] - Occupational Stress Questionnaire ??? Feeling of Stress : Not at all Housing Stability: Low Risk (10/17/2023) Housing Stability Vital Sign ??? Unable to Pay for Housing in the Last Year: No ??? Number of Places Lived in the Last Year: 1 ??? Unstable Housing in the Last Year: No Review of Systems ROS Physical Exam BP 115/60 (BP Cuff Size: A) Pulse 76 Temp 98.3 ??F (36.8 ??C) (Oral) Resp 17 Ht 1.829 m (6') Wt 123.5 kg (272 lb 4.8 oz) SpO2 95% BMI 36.93 kg/m?? Physical Exam Constitutional: General: He is not in acute distress. Appearance: Normal appearance. He is not ill-appearing. HENT: Head: Normocephalic and atraumatic. Mouth/Throat: Mouth: Mucous membranes are moist. Eyes: Pupils: Pupils are equal, round, and reactive to light. Cardiovascular: Rate and Rhythm: Normal rate. Pulmonary: Effort: Pulmonary effort is normal. Breath sounds: Normal breath sounds. Abdominal: General: Abdomen is flat. Musculoskeletal: General: Normal range of motion. Comments: ttp to the right hip, dressing in place PICC line looks infected, red on the right arm Skin: Capillary Refill: Capillary refill takes less than 2 seconds. Neurological: Mental Status: He is alert. Medications No current outpatient medications on file. Procedures Procedures Lab/SPO2 Interpretation Hospital Encounter on 10/15/23 CBC W AUTO DIFFERENTIAL Result Value Ref Range WBC 8.5 4.0 - 10.7 x10E9/L RBC Count 3.04 (L) 4.30 - 5.80 x10E12/L Hemoglobin 9.0 (L) 13.3 - 17.5 g/dL Hematocrit 29.2 (L) 38.7 - 51.1 % MCV 96.1 80.0 - 98.0 fL MCH 29.6 26.7 - 33.6 pg MCHC 30.8 (L) 31.7 - 36.3 g/dL RDW-CV 14.1 11.3 - 14.8 % Platelet Count 297 150 - 420 x10E9/L MPV 8.5 7.8 - 11.4 fL Neutrophil % 62.0 41.0 - 74.0 % Lymphocyte % 23.9 17.0 - 47.0 % Monocyte % 10.3 3.0 - 11.0 % Eosinophil % 2.1 0.0 - 7.0 % Basophil % 0.6 0.0 - 1.6 % Immature Granulocytes % 1.1 (H) 0.0 - 1.0 % Neutrophil Absolute 5.25 1.60 - 7.50 x10E9/L Lymphocyte Absolute 2.02 1.00 - 4.40 x10E9/L Monocyte Absolute 0.87 0.15 - 1.00 x10E9/L Eosinophil Absolute 0.18 0.00 - 0.60 x10E9/L Basophil Absolute 0.05 0.00 - 0.13 x10E9/L NRBC 0.4 (H) <=0.0 /100 WBC COMPREHENSIVE METABOLIC PANEL Result Value Ref Range Glucose 118 (H) 70 - 105 mg/dL Sodium 138 136 - 145 mmol/L Potassium 4.6 3.5 - 5.1 mmol/L Chloride 106 98 - 107 mmol/L CO2 23 22 - 29 mmol/L Calcium 9.4 8.4 - 10.4 mg/dL Anion Gap 9 6 - 16 mmol/L BUN 15 7 - 26 mg/dL Creatinine 0.80 0.72 - 1.25 mg/dL Alkaline Phosphatase 153 (H) 40 - 150 U/L ALT 12 0 - 55 U/L AST 21 5 - 34 U/L Protein Total 7.5 6.4 - 8.3 gm/dL Albumin 3.0 (L) 3.4 - 5.0 gm/dL Bilirubin Total 0.5 0.2 - 1.2 mg/dL eGFR by CKD-EPI >90 >=90 mL/min/1.73 m2 GLUCOSE - POINT OF CARE Result Value Ref Range Glucose WB/POC 138 (H) 70 - 106 mg/dL Specimen Type Cap Fingerstick GLUCOSE - POINT OF CARE Result Value Ref Range Glucose WB/POC 118 (H) 70 - 106 mg/dL Specimen Type Cap Fingerstick GLUCOSE - POINT OF CARE Result Value Ref Range Glucose WB/POC 139 (H) 70 - 106 mg/dL Specimen Type Cap Fingerstick GLUCOSE - POINT OF CARE Result Value Ref Range Glucose WB/POC 106 70 - 106 mg/dL Specimen Type Cap Fingerstick GLUCOSE - POINT OF CARE Result Value Ref Range Glucose WB/POC 162 (H) 70 - 106 mg/dL Specimen Type Cap Fingerstick GLUCOSE - POINT OF CARE Result Value Ref Range Glucose WB/POC 174 (H) 70 - 106 mg/dL Specimen Type Cap Fingerstick CT HIP RIGHT W CONTRAST Final Result PROCEDURE: CT HIP RIGHT W CONTRAST DATE/TIME [...] Benedicto Ortiz MD on 10/15/2023 7:16 PM XR PELVIS W RIGHT HIP 2VW Final Result Procedure: XR PELVIS W RIGHT HIP 2VW Exam Date: 10/15/2023 1:16 PM Location: [facility] Indication: M25.551: Pain in right hip Findings/impression: The study is compared to the exam from 09/24/2023. Again noted are changes of total hip replacement. The prosthesis appears unchanged. The cerclage wire has been removed. No fracture or loosening is appreciated. > Interpreting Provider: Viral Peña MD on 10/15/2023 1:24 PM Progress Notes ED Course Clinical Impressions as of 10/17/23 0917 Right hip pain Pain of right hip Infection of peripherally inserted central catheter (PICC), initial encounter Personal history of infected joint MDM Orders Placed This Encounter ??? XR PELVIS W RIGHT HIP 2VW ??? CT HIP RIGHT W CONTRAST ??? CBC W AUTO DIFFERENTIAL ??? COMPREHENSIVE METABOLIC PANEL ??? Referral to Home Health Care ??? IP CONSULT TO VASCULAR ACCESS NURSE ??? IP CONSULT TO ORTHOPEDIC SURGERY ??? morphine injection 4 mg ??? cefTRIAXone (Rocephin) 2,000 mg in 0.9% NaCl IV 50 mL IVPB ??? 0.9% NaCl IV bolus ??? *Hold/Avoid Medication ??? iopamidol (Isovue 370) 76 % contrast ??? 0.9% NaCl injection 0-10 mL ??? 0.9% NaCl IV flush bag ??? 0.9% NaCl injection 10-40 mL ??? 0.9% NaCl injection 10-40 mL ??? lidocaine PF (Xylocaine MPF) 1 % injection ??? DISCONTD: morphine injection 4 mg ??? morphine injection 4 mg ??? diclofenac sodium (Voltaren) 1 % gel 2 g ??? lidocaine (Lidoderm) 5 % patch 1 patch ??? oxyCODONE-acetaminophen (Percocet) 5-325 MG tablet 1 tablet ??? ceFAZolin (Ancef) 2 g in 0.9% NaCl IV 50 mL IVPB ??? amLODIPine (Norvasc) tablet 10 mg ??? carvedilol (Coreg) tablet 25 mg ??? pantoprazole EC (Protonix) tablet 40 mg ??? apixaban (Eliquis) tablet 2.5 mg ??? pregabalin (Lyrica) capsule 50 mg ??? AND Linked Order Group ??? 0.9% NaCl injection 3 mL ??? 0.9% NaCl injection 1-10 mL ??? acetaminophen (Tylenol) tablet 650 mg ??? OR Linked Order Group ??? ondansetron (disintegrating) (Zofran ODT) tablet 4 mg ??? ondansetron (Zofran) injection 4 mg ??? docusate sodium (Colace) capsule 100 mg ??? glucose (Diabetic Use) oral gel ??? OR Linked Order Group ??? dextrose 10 % IV bolus ??? dextrose 10 % IV bolus ??? glucagon (Glucagen) injection 1 mg ??? insulin aspart (NovoLOG) pen 0-12 Units ??? insulin aspart (NovoLOG) pen 0-5 Units ??? rosuvastatin (Crestor) tablet 40 mg ??? sertraline (Zoloft) tablet 50 mg ??? oxyCODONE-acetaminophen (Percocet) 5-325 MG tablet 1 tablet Contact information for after-discharge [facility] . Service: Home Health Services Contact information: [address] [id number] * Guille Aguilera RN - 10/15/2023 3:43 PM CDT Report received from Marcus PEREZ in ED. Care to be assumed by this RN. * Marcus Miles RN - 10/15/2023 3:25 PM CDT Pt ambulated to room with cane. Gait steady and even. Pt placed on non invasive pulse ox and blood pressure. Pt alert and oriented x 4. Bed in low and locked position with side rails up x 2. Call light in reach of pt. Respirations even and unlabored, no acute distress at this time. Pt states Picc line dressing was changed this morning, with home health nurse stating that the Picc line may be infected. * Damaris Palmer RN - 10/15/2023 3:18 PM CDT Bed: 42 Expected date: Expected time: Means of arrival: Comments: Maty * Myrtle Villa PA-C - 10/15/2023 12:39 PM CDT RME Note 10/15/2023 12:39 History of present illness: 58 year old male here today for concerns of PICC line complications. Reports that it was placed 10/04/2023 after hip replacement complications. Gets abx through this TID. States that it is red around the site with mild tenderness. Denies Fever, chills, night sweats. Denies SOB, CP, AP. Is on a blood thinner, and takes medications as prescribed. Also c/o worsening right hip pain, requests xr. Ambulating, but walking okay with a cane. Denies any new numbness, weakness. or tingling. Past Medical History: Diagnosis Date ??? Aortic stenosis mod-sev on 2022 echo ??? CAD (coronary artery disease) ??? High blood pressure ??? LVH (left ventricular hypertrophy) ??? Mixed hyperlipidemia ??? Restless leg syndrome ??? S/P PICC central line placement 10/03/2023 R Basilic Vein PICC Placement by WILBERT SELLERS RN ??? Sleep apnea uses cpap ??? Stroke (HCC) 2021 balance residual ??? Type 2 diabetes mellitus without complications (HCC) Past Surgical History: Procedure Laterality Date ??? Appendectomy ??? Cardiac Catherization 2018 no intervetion ??? COLONOSCOPY ??? DEBRIDEMENT Right 09/27/2023 Right; REPEAT IRRIGATION AND DEBRIDEMENT RIGHT HIP, REMOVAL OF ANTIBIOTIC BEADS x20, PLACEMENT OF ANTIBIOTIC BEADS x20, WOUND VAC EXCHANGE RIGHT HIP ??? DEBRIDEMENT Right 10/02/2023 Right; IRRIGATION AND DEBRIDEMENT HIP -- RIGHT HIP, DELAYED PRIMARY CLOSURE OF COMPLEX WOUND, REMOVAL OF ANTIBIOTIC BEADS, REVISION OF BOTH HIP COMPONENTS -- RIGHT HIP, WOUND VAC APPLICATION ??? EGD ??? ENDOSCOPY, UPPER N/A 12/15/2022 [...] No Stress: No Stress Concern Present (12/14/2022) [employer] - Occupational Stress Questionnaire ??? Feeling of Stress : Not at all Housing Stability: Low Risk (12/14/2022) Housing Stability Vital Sign ??? Unable to Pay for Housing in the Last Year: No ??? Number of Places Lived in the Last Year: 1 ??? Unstable Housing in the Last Year: No Review of Systems Constitutional: No fevers or chills, recent illness or change in medications Eye/ENT/Mouth: No visual changes, no epistaxis or sore throat Cardiovascular: No palpitations, no chest pain Respiratory: No stridor, no shortness of breath Gastrointestinal: No nausea, vomiting, diarrhea, no abdominal pain Geniturinary: No dysuria, no hematuria Skin: see hpi Musculoskeletal: See hpi Neurological: No headache, no new numbness Psychiatric: No mood changes Unless stated in the HPI all other systems were negative Physical Exam Constitutional: Well developed, well nourished. No acute distress. HENT: Normocephalic, atraumatic. Neck: ROM nl, supple. Heart: normal rate. Pulmonary/Chest: Effort normal, no respiratory distress. Abdomen: soft, non tender. Musculoskeletal: HAN, no edema or tenderness. Neurological: A&O x 3, no focal neuro deficits Skin: warm, dry. picc line in right arm Psych: mood and affect normal. Complete vital signs reviewed. BP 141/72 Pulse 86 Temp 98.4 ??F (36.9 ??C) (Oral) Resp 18 Ht 1.829 m (6') Wt 124.7 kg (275 lb) SpO2 98% Diagnostic tests ordered: Orders Placed This Encounter ??? XR PELVIS W RIGHT HIP 2VW ??? CBC W AUTO DIFFERENTIAL ??? COMPREHENSIVE METABOLIC PANEL Based on the Medical Screening Exam performed and diagnostic tests at this time: Further evaluation is indicated and will be performed. Care will be transferred to the main ED. Final diagnoses: Right hip pain documented in this encounter Plan of Treatment Upcoming Encounters Date Type Department Care Team (Late st Contact Info) Description 01/20/2025 10:00 AM CDT Office Visit [facility] - Orthopedic Surgery [address] [place] [id number] Torrey Lafleur MD [address] [address] Scheduled Orders Name Type Priority Associated Diagnoses Orde r Schedule PT EVAL AND TREAT PT Routine ONCE fo r 1 Occurrences starting 10/16/2023 until 10/16/2023 Scheduled Referrals Name Type Priority Associated Diagnoses Orde r Schedule Referral to Home Health Care Outpatient Referral Routine Right hip pain Pain of right hip Ordered: 10/16/2023 documented as of this encounter Procedures Procedure Name Priority Date/Time Associated Diagnosis Comments GLUCOSE - POINT OF CARE Routine 10/17/2023 8:26 AM CDT GLUCOSE - POINT OF CARE Routine 10/16/2023 8:23 PM CDT GLUCOSE - POINT OF CARE Routine 10/16/2023 5:12 PM CDT GLUCOSE - POINT OF CARE Routine 10/16/2023 11:59 AM CDT GLUCOSE - POINT OF CARE Routine 10/16/2023 7:43 AM CDT GLUCOSE - POINT OF CARE Routine 10/15/2023 9:[address] HIP RIGHT W CONTRAST STAT 10/15/2023 6:25 PM CDT Right hip pain CBC W AUTO DIFFERENTIAL STAT 10/15/2023 1:19 PM CDT COMPREHENSIVE METABOLIC PANEL STAT 10/15/2023 1:19 PM CDT XR PELVIS W RIGHT HIP 2VW STAT 10/15/2023 1:16 PM CDT Right hip pain documented in this encounter Results * (ABNORMAL) GLUCOSE - POINT OF CARE (10/17/2023 8:26 AM CDT) Glucose WB/POC 174(H) 70 - 106 mg/dL 10/17/2023 8:32 AM CDT [facility] Specimen Type Cap Fingerstick 2023 8:32 AM CDT [facility] Blood BLOOD SPECIMEN / Unknown 10/17/2023 8:26 AM CDT 10/17/2023 8:32 AM CDT Marco Carter MD LAB - POINT OF CARE ORDERABLES Performing Organization Address City/[facility]/ZIP Co de Phone Number [facility] [address] [place] [phone] * (ABNORMAL) GLUCOSE - POINT OF CARE (10/16/2023 8:23 PM CDT) Glucose WB/POC 162(H) 70 - 106 mg/dL 10/16/2023 8:33 PM CDT [facility] Specimen Type Cap Fingerstick 2023 8:33 PM CDT [facility] Blood BLOOD SPECIMEN / Unknown 10/16/2023 8:23 PM CDT 10/16/2023 8:33 PM CDT Marco Carter MD LAB - POINT OF CARE ORDERABLES Performing Organization Address City/[facility]/ZIP Co de Phone Number [facility] [address] [place] [phone] * GLUCOSE - POINT OF CARE (10/16/2023 5:12 PM CDT) Glucose WB/POC 106 70 - 106 mg/dL 10/16/2023 8:16 PM CDT [facility] Specimen Type Cap Fingerstick 2023 8:16 PM CDT [facility] Blood BLOOD SPECIMEN / Unknown 10/16/2023 5:12 PM CDT 10/16/2023 8:16 PM CDT Marco Carter MD LAB - POINT OF CARE ORDERABLES Performing Organization Address City/[facility]/ZIP Co de Phone Number [facility] [address] [place] [phone] * (ABNORMAL) GLUCOSE - POINT OF CARE (10/16/2023 11:59 AM CDT) Glucose WB/POC 139(H) 70 - 106 mg/dL 10/16/2023 12:06 PM CDT [facility] Specimen Type Cap Fingerstick 2023 12:06 PM CDT [facility] Blood BLOOD SPECIMEN / Unknown 10/16/2023 11:59 AM CDT 10/16/2023 12:06 PM CDT Marco Carter MD LAB - POINT OF CARE ORDERABLES Performing Organization Address [facility] Co de Phone Number [facility] [address] [place] [phone] * (ABNORMAL) GLUCOSE - POINT OF CARE (10/16/2023 7:43 AM CDT) Glucose WB/POC 118(H) 70 - 106 mg/dL 10/16/2023 7:53 AM CDT [facility] Specimen Type Cap Fingerstick 2023 7:53 AM CDT [facility] Blood BLOOD SPECIMEN / Unknown 10/16/2023 7:43 AM CDT 10/16/2023 7:53 AM CDT Marco Carter MD LAB - POINT OF CARE ORDERABLES [facility] [address] [place] [phone] * (ABNORMAL) GLUCOSE - POINT OF CARE (10/15/2023 9:05 PM CDT) Glucose WB/POC 138(H) 70 - 106 mg/dL 10/15/2023 9:13 PM CDT [facility] Specimen Type Cap Fingerstick 2023 9:13 PM CDT [facility] Blood BLOOD SPECIMEN / Unknown 10/15/2023 9:05 PM CDT 10/15/2023 9:13 PM CDT Marcus Rahman MD LAB - POINT OF CARE ORDERABLES [facility] [address] [place] [phone] * CT HIP RIGHT W CONTRAST (10/15/2023 [...] Mely Shine DO CT ORDERABLES * (ABNORMAL) COMPREHENSIVE METABOLIC PANEL (10/15/2023 1:19 PM CDT) Glucose 118(H) 70 - 105 mg/dL 10/15/2023 1:39 PM CDT [facility] Sodium 138 136 - 145 mmol/L 10/15/2023 1:39 PM CDT [facility] Potassium 4.6 3.5 - 5.1 mmol/L 10/15/2023 1:39 PM CDT [facility] Chloride 106 98 - 107 mmol/L 10/15/2023 1:39 PM CDT [facility] CO2 23 22 - 29 mmol/L 10/15/2023 1:39 PM CDT [facility] Calcium 9.4 8.4 - 10.4 mg/dL 10/15/2023 1:39 PM CDT [facility] Anion Gap 9 6 - 16 mmol/L 10/15/2023 1:39 PM CDT [facility] BUN 15 7 - 26 mg/dL 10/15/2023 1:39 PM CDT [facility] Creatinine 0.80 0.72 - 1.25 mg/dL 10/15/2023 1:39 PM CDT [facility] Alkaline Phosphatase 153(H) 40 - 150 U/L 10/15/2023 1:39 PM CDT [facility] ALT 12 0 - 55 U/L 10/15/2023 1:39 PM CDT [facility] AST 21 5 - 34 U/L 10/15/2023 1:39 PM CDT [facility] Protein Total 7.5 6.4 - 8.3 gm/dL 10/15/2023 1:39 PM CDT [facility] Albumin 3.0(L) 3.4 - 5.0 gm/dL 10/15/2023 1:39 PM CDT [facility] Bilirubin Total 0.5 0.2 - 1.2 mg/dL 10/15/2023 1:39 PM CDT [facility] eGFR by CKD-EPI >90 >=90 mL/min/1.7 3 m2 10/15/2023 1:39 PM CDT [facility] Blood BLOOD SPECIMEN / Unknown Venipuncture / Unknown 10/15/2023 1:19 PM CDT 10/15/2023 1:23 PM CDT Myrtle Villa PA-C LAB - GRAZING AIDE RY ORDERABLES Performing Organization Address City/State/[facility] Co de Phone Number [facility] [address] [place] [address] * (ABNORMAL) CBC W AUTO DIFFERENTIAL (10/15/2023 1:19 PM CDT) WBC 8.5 4.0 - 10.7 x10E9/L 10/15/2023 1:25 PM CDT [facility] RBC Count 3.04(L) 4.30 - 5.80 x10E12/L 10/15/2023 1:25 PM CDT [facility] Hemoglobin 9.0(L) 13.3 - 17.5 g/dL 10/15/2023 1:25 PM CDT [facility] Hematocrit 29.2(L) 38.7 - 51.1 % 10/15/2023 1:25 PM CDT [facility] MCV 96.1 80.0 - 98.0 fL 10/15/2023 1:25 PM CDT [facility] MCH 29.6 26.7 - 33.6 pg 10/15/2023 1:25 PM CDT [facility] MCHC 30.8(L) 31.7 - 36.3 g/dL 10/15/2023 1:25 PM CDT [facility] RDW-CV 14.1 11.3 - 14.8 % 10/15/2023 1:25 PM CDT [facility] Platelet Count 297 150 - 420 x10E9/L 10/15/2023 1:25 PM CDT [facility] MPV 8.5 7.8 - 11.4 fL 10/15/2023 [facility] Neutrophil % 62.0 41.0 - 74.0 % 10/15/2023 1:25 PM [facility] Lymphocyte % 23.9 17.0 - 47.0 % 10/15/2023 1:25 PM CDT [facility] Monocyte % 10.3 3.0 - 11.0 % 10/15/2023 1:25 PM CDT [facility] Eosinophil % 2.1 0.0 - 7.0 % 10/15/2023 1:25 PM CDT [facility] Basophil % 0.6 0.0 - 1.6 % 10/15/2023 1:25 PM CDT [facility] Immature Granulocytes % 1.1(H) 0.0 - 1.0 % 10/15/2023 1:25 PM CDT [facility] Neutrophil Absolute 5.25 1.60 - 7.50 x10E9/L 10/15/2023 1:25 PM CDT [facility] Lymphocyte Absolute 2.02 1.00 - 4.40 x10E9/L 10/15/2023 1:25 PM CDT [facility] Monocyte Absolute 0.87 0.15 - 1.00 x10E9/L 10/15/2023 1:25 PM CDT [facility] Eosinophil Absolute 0.18 0.00 - 0.60 x10E9/L 10/15/2023 1:25 PM CDT [facility] Basophil Absolute 0.05 0.00 - 0.13 x10E9/L 10/15/2023 1:25 PM CDT [facility] NRBC 0.4(H) <=0.0 /100 WBC 10/15/2023 1:25 PM CDT [facility] Blood BLOOD SPECIMEN / Unknown Venipuncture / Unknown 10/15/2023 1:19 PM CDT 10/15/2023 1:23 PM CDT Myrtle Villa PA-C LAB - HEMATOL OGY ORDERABLES [facility] [address] [place] [address] * XR PELVIS W RIGHT HIP 2VW (10/15/2023 1:16 PM CDT) Anatomical Region Laterality Modality Pelvis Radiographic Sabi ging 10/15/2023 1:23 PM CDT Narrative 10/15/2023 1:24 PM CDT Procedure: XR PELVIS W RIGHT HIP 2VW ??Exam Date: ??10/15/2023 1:16 PM ?? Location: ??[facility] Indication: M25.551: Pain in right hip Findings/impression: The study is compared to the exam from 09/24/2023. Again noted are changes of total hip replacement. The prosthesis appears unchanged. The cerclage wire has been removed. No fracture or loosening is appreciated. > Interpreting Provider: Viral Peña MD on 10/15/2023 1:24 PM Procedure Note Viral Peña MD - 10/15/2023 Procedure: XR PELVIS W RIGHT HIP 2VW Exam Date: 10/15/2023 1:16 PM Location: [facility] Indication: M25.551: Pain in right hip Findings/impression: The study is compared to the exam from 09/24/2023. Again noted arechanges of total hip replacement. The prosthesis appears unchanged. The cerclage wire has been removed. No fracture or loosening is appreciated. > Interpreting Provider: Viral Peña MD on 10/15/2023 1:24 PM Myrtle Villa PA-C DIAGNOSTIC IM AGING ORDERABLES documented in this encounter Visit Diagnoses Diagnosis Pain of right hip- Primary Right hip pain Pain in joint, pelvic region and thigh Infection of peripherally inserted central catheter (PICC), initial encounter Personal history of infected joint Personal history of arthritis Right hip pain Pain in joint, pelvic region and thigh documented in this encounter Administered Medications Inactive Administered Medications - up to 3 most recent administrations Medication Order MAR Action Action Date Dose Rate Site *Hold/Avoid Medication EVERY 12 HOURS (08 and 20), 6 doses, First dose on Sun10/15/23 at 2000, Last dose on Hetal 10/18/23 at 0800, Please place medication(s) named below on OCT Hold. See Tip Sheet for instructions. 0.9% NaCl injection 1-10 mL 1-10 mL, Intracatheter, PRN, Other, peripheral line flush, Starting on Tu10/16/23 at 0626, Until Sun10/17/23 at 1158, Flush peripheral IV catheter with 1-10 mL of normal saline before and after medications and prn to clear blood from the line or to verify patency. 0.9% NaCl injection 10-40 mL 10-40 mL, Intracatheter, EVERY 8 HOURS, First dose on Sun10/15/23 at 2200, Until Discontinued, Flush each lumen of PICC with 10ml NS IVP every 8 hours (regardless of continuous IV infusion). Flushing may be contraindicated if concentrated drips are infusing. $ Given 10/17/2023 5:21 AM CDT 10 mL $ Given 10/16/2023 8:25 PM CDT 10 mL $ Given 10/16/2023 1:20 PM CDT 10 mL 0.9% NaCl injection 10-40 mL 10-40 mL, Intracatheter, PRN, Other, PICC line flush, Starting on Sun10/15/23 at 1755, Until Sun10/17/23 at 1158, Flush each lumen of PICC with 10ml NS IVP before and after medication/solution administration for patency and blood return. Flush each lumen of PICC with 20 ml NS IVP after each infusion of blood products or lipids, and after each blood draw. $ Given 10/15/2023 6:08 PM CDT 10 mL 0.9% NaCl injection 3 mL 3 mL, Intracatheter, EVERY 8 HOURS, First dose on Sun10/16/23 at 0700, Until Discontinued, Flush peripheral IV catheter with 3 mL of normal saline every 8 hours. $ Given 10/16/2023 1:20 PM CDT 3 mL $ Given 10/16/2023 8:08 AM CDT 3 mL 0.9% NaCl IV bolus 500 mL, at 967.74 mL/hr, Administer over 31 Minutes, NOW, 1 dose, On Sun10/15/23 at 1745 $ New Bag/Syringe 10/15/2023 6:31 PM CDT 500 mL 967.74 mL/hr 0.9% NaCl IV flush bag 0-250 mL, Intracatheter, ONCE PRN, Contrast flush, 1 dose, Starting on Sun10/15/23 at 1754, Until Sun10/15/23 at 1808, For administration with contrast $ Given 10/15/2023 6:08 PM CDT 50 mL acetaminophen (Tylenol) tablet 650 mg 650 mg, Oral, EVERY 4 HOURS PRN, Fever, For temperature GREATER than 101 , Starting on Sun10/16/23 at 0627, Until Sun10/17/23 at 1158, Patient preference for lesser PRN pain meds may be honored when the patient requests a less strong medication, a lower dose, or a less intrusive route of administration when the lesser drug, dose and route have been ordered for the patient. This patient request must be documented in the MAR. $ Given 10/16/2023 8:26 PM CDT 650 mg amLODIPine (Norvasc) tablet 10 mg 10 mg, Oral, DAILY, First dose on Sun10/16/23 at 0900, Until Discontinued $ Given 10/17/2023 8:29 AM CDT 10 mg $ Given 10/16/2023 8:08 AM CDT 10 mg apixaban (Eliquis) tablet 2.5 mg 2.5 mg, Oral, 2 TIMES DAILY, First dose on Sun10/16/23 at 0900, Until Discontinued $ Given 10/17/2023 8:29 AM CDT 2.5 mg $ Given 10/16/2023 8:26 PM CDT 2.5 mg $ Given 10/16/2023 8:08 AM CDT 2.5 mg carvedilol (Coreg) tablet 25 mg 25 mg, Oral, 2 TIMES DAILY, First dose on Sun10/16/23 at 0100, Until Discontinued, Take with food $ Given 10/17/2023 8:29 AM CDT 25 mg $ Given 10/16/2023 8:26 PM CDT 25 mg $ Given 10/16/2023 8:08 AM CDT 25 mg ceFAZolin (Ancef) 2 g in 0.9% NaCl IV 50 mL IVPB 2 g, at 100 mL/hr, Intravenous, EVERY 8 HOURS, 87 doses, First dose on Sun10/16/23 at 0100, Last dose on Sun11/13/23 at 1700, Indication for anti-infective therapy: Documented infection, Site of anti-infective therapy: Bone/Joint $ New Bag/Syringe 10/17/2023 8:33 AM CDT 2 g 100 mL/hr $ New Bag/Syringe 10/16/2023 11:40 PM CDT 2 g 100 m L/hr $ New Bag/Syringe 10/16/2023 5:05 PM CDT 2 g 100 mL /hr cefTRIAXone (Rocephin) 2,000 mg in 0.9% NaCl IV 50 mL IVPB 2,000 mg (2 g), at 100 mL/hr, Intravenous, Once, 1 dose, On Sun10/15/23 at 1630, Ceftriaxone can cause precipitation when administered with calcium-containing fluids, including LR. Flush lines with a compatible fluid, such as D5W or NS before and after ceftriaxone dose. Admin through separate lumens is acceptable., Indication for anti-infective therapy: Suspected infection, Site of anti-infective therapy: Skin/soft tissue $ New Bag/Syringe 10/15/2023 5:36 PM CDT 2,000 mg 100 mL/hr dextrose 10 % IV bolus 12.5 g, at 999 mL/hr, Intravenous, PRN, Other, Bedside Glucose less than 70 mg/dL -If NOT able to eat and/or NPO and with IV Access, Starting on Sun10/16/23 at 0627, Until Sun10/17/23 at 1158, If NOT able to eat and/or NPO [...] 10 % IV bolus 25 g, at 937.5 mL/hr, Intravenous, PRN, Other, Bedside Glucose less than 70 mg/dL -If NOT able to eat and/or NPO and with IV Access, Starting on Sun10/16/23 at 06, Until Sun10/17/23 at 1158, If NOT able to eat and/or NPO [...] IV STAT NOTIFY PROVIDER OF HYPOGLYCEMIC EVENT. diclofenac sodium (Voltaren) 1 % gel 2 g 2 g, Topical, 4 TIMES DAILY, First dose on Sun10/16/23 at 0900, Until Discontinued, Use dosing card to apply gel to hip pain. Do not discard dosing card. . WASTE DISPOSAL INSTRUCTIONS: Black Bin Disposal required. $ Given 10/16/2023 8:26 PM CDT 2 g $ Given 10/16/2023 5:05 PM CDT 2 g $ Given 10/16/2023 8:09 AM CDT 2 g docusate sodium (Colace) capsule 100 mg 100 mg, Oral, 2 TIMES DAILY, First dose on Sun10/16/23 at 0900, Until Discontinued $ Given 10/17/2023 8:29 AM CDT 100 mg $ Given 10/16/2023 8:25 PM CDT 100 mg $ Given 10/16/2023 8:07 AM CDT 100 mg glucagon (Glucagen) injection 1 mg 1 mg, Subcutaneous, PRN, Bedside Glucose less than 70 mg/dL - If NOT able to eat and/or NPO and withOUT IV Access, Starting on Sun10/16/23 at 0627, Until Sun10/17/23 at 1158, If NOT able to eat and/or NPO [...] Glucose less than 70 mg/dL, Starting on Sun10/16/23 at 0627, Until Sun10/17/23 at 1158, If able to take oral medications: For Bedside Glucose 54 - 69 mg/dL [...] for choices) NOTIFY PROVIDER OF HYPOGLYCEMIC EVENT. insulin aspart (NovoLOG) pen 0-12 Units 0-12 Units, Subcutaneous, 3 TIMES DAILY WITH MEALS, First dose on Sun10/16/23 at 0800, Until Discontinued, Standard Dose: Correction Insulin Bedside glucose should be done within 30-60 minutes of correction insulin administration. BG (mg/dL) Corrective Action LESS than 70 follow Hypoglycemic guidelines, 70-140 NO Correction insulin, 141-180 GIVE 2 units of insulin, 181-220 GIVE 4 units of insulin, 221-260 GIVE 6 units of insulin, 261-300 GIVE 8 units of insulin, 301-350 GIVE 10 units of insulin Greater than 350 GIVE 12 units of insulin and notify physician., If the patient is NPO; DO NOT HOLD correction insulin If patient is eating meals and has orders for Mealtime insulin, combine and give at the same time. $ Given 10/17/2023 8:29 AM CDT 2 Units Abdominal Tissue insulin aspart (NovoLOG) pen 0-5 Units 0-5 Units, Subcutaneous, AT BEDTIME, First dose on Sun10/16/23 at 2100, Until Discontinued, Standard Dose: Correction Insulin Bedside glucose should be done within 30-60 minutes of correction insulin administration. BG (mg/dL) Corrective Action LESS than 70 follow Hypoglycemic guidelines, 70-180 NO Correction insulin, 181-220 GIVE 1 units of insulin, 221-260 GIVE 2 units of insulin, 261-300 GIVE 3 units of insulin, 301-350 GIVE 4 units of insulin Greater than 350 GIVE 5 units of insulin and notify physician. If the patient is NPO; DO NOT HOLD correction insulin If patient is eating meals and has orders for Mealtime insulin, combine and give at the same time. iopamidol (Isovue 370) 76 % contrast Intravenous, CONTRAST ONCE, Starting on Sun10/15/23 at 1754, Until Sun10/17/23 at 1158 $ Given - Contrast 10/15/2023 6:07 PM CDT 100 mL lidocaine (Lidoderm) 5 % patch 1 patch 1 patch, Administer over 12 Hours, EVERY 24 HOURS, First dose on Sun10/16/23 at 0015, Until Discontinued, Apply to hip and remove patch after a max of 12 hours of application within a 24 hour period. $ Applied 10/16/2023 11:37 PM CDT 1 patch Right Leg $ Applied 10/15/2023 11:55 PM CDT 1 patch R ight Leg lidocaine PF (Xylocaine MPF) 1 % injection Intradermal, ONCE, 1 dose, On Sun10/15/23 at 1815, For PICC line placement. Use lidocaine intradermally to produce wheal to locally anesthetize site if patient has NKA to Lidocaine. $ Given 10/15/2023 6:01 PM CDT morphine injection 4 mg 4 mg, Intravenous, NOW, 1 dose, On Sun10/15/23 at 1615, Patient preference for lesser PRN pain meds may be honored when the patient requests a less strong medication, a lower dose, or a less intrusive route of administration when the lesser drug, dose and route have been ordered for the patient. This patient request must be documented in the MAR. $ Given 10/15/2023 5:34 PM CDT 4 mg morphine injection 4 mg 4 mg, Intravenous, NOW, 1 dose, On Sun10/15/23 at 2130, Patient preference for lesser PRN pain meds may be honored when the patient requests a less strong medication, a lower dose, or a less intrusive route of administration when the lesser drug, dose and route have been ordered for the patient. This patient request must be documented in the MAR. $ Given 10/15/2023 9:25 PM CDT 4 mg ondansetron (disintegrating) (Zofran ODT) tablet 4 mg 4 mg, Oral, EVERY 6 HOURS PRN, Nausea/Vomiting, Starting on Sun10/16/23 at 0627, Until Sun10/17/23 at 1158, Dissolved orally on tongue ondansetron (Zofran) injection 4 mg 4 mg, Intravenous, EVERY 6 HOURS PRN, Nausea/Vomiting, Starting on Sun10/16/23 at 0627, Until Sun10/17/23 at 1158, Administer IV if patient is NPO, actively vomiting, or unable to swallow. oxyCODONE-acetaminophen (Percocet) 5-325 MG tablet 1 tablet 1 tablet, Oral, Once, 1 dose, On Sun10/16/23 at 0000, Patient preference for lesser PRN pain meds may be honored when the patient requests a less strong medication, a lower dose, or a less intrusive route of administration when the lesser drug, dose and route have been ordered for the patient. This patient request must be documented in the MAR. $ Given 10/16/2023 12:05 AM CDT 1 tablet oxyCODONE-acetaminophen (Percocet) 5-325 MG tablet 1 tablet 1 tablet, Oral, EVERY 4 HOURS PRN, Moderate Pain, Starting on Sun10/16/23 at 1708, Until Sun10/17/23 at 1158, Patient preference for lesser PRN pain meds may be honored when the patient requests a less strong medication, a lower dose, or a less intrusive route of administration when the lesser drug, dose and route have been ordered for the patient. This patient request must be documented in the MAR. $ Given 10/17/2023 5:21 AM CDT 1 tablet $ Given 10/16/2023 11:37 PM CDT 1 tablet $ Given 10/16/2023 7:13 PM CDT 1 tablet pantoprazole EC (Protonix) tablet 40 mg 40 mg, Oral, DAILY, First dose on Sun10/16/23 at 0900, Until Discontinued, Do not crush, chew, or cut in half. $ Given 10/17/2023 8:29 AM CDT 40 mg $ Given 10/16/2023 8:07 AM CDT 40 mg pregabalin (Lyrica) capsule 50 mg 50 mg, Oral, 2 TIMES DAILY, First dose on Sun10/16/23 at 0900, Until Discontinued $ Given 10/17/2023 8:29 AM CDT 50 m g $ Given 10/16/2023 8:25 PM CDT 50 mg $ Given 10/16/2023 8:07 AM CDT 50 mg rosuvastatin (Crestor) tablet 40 mg 40 mg, Oral, EVERY MORNING, First dose on Sun10/16/23 at 0700, Until Discontinued $ Given 10/17/2023 5:21 AM CDT 40 m g $ Given 10/16/2023 8:07 AM CDT 40 mg sertraline (Zoloft) tablet 50 mg 50 mg, Oral, DAILY, First dose on Sun10/16/23 at 0900, Until Discontinued, Avoid concurrent administration with grapefruit juice $ Given 10/17/2023 8:29 AM CDT 50 mg $ Given 10/16/2023 8:08 AM CDT 50 mg documented in this encounter Active and Recently Administered Medications Times are shown in CDT. Scheduled Medication Order 10/15/2023 10/16/2023 10/17/2023 *Hold/Avoid Medication EVERY 12 HOURS (08 and 20), 6 doses, First dose on Sun10/15/23 at 2000, Last dose on Sun10/18/23 at 0800, Please place medication(s) named below on MAR Hold. See Tip Sheet for instructions. 2126 (*Reviewed - Provider: Philipp Torres RN) 08 (*Reviewed - Provider: Kristopher Walker RN)2024 (*Reviewed - Provider: Philipp Torres RN) 0829 (*Reviewed - Provider: Kristopher Walker RN) 0.9% NaCl injection 10-40 mL 10-40 mL, Intracatheter, EVERY 8 HOURS, First dose on Sun10/15/23 at 2200, Until Discontinued, Flush each lumen of PICC with 10ml NS IVP every 8 hours (regardless of continuous IV infusion). Flushing may be contraindicated if concentrated drips are infusing. 2127 ($ Given - Provider: Philipp Torres RN) 433 ($ Given - Provider: Philipp Torres RN)132 ($ Given - Provider: Kristopher Walker RN)2024 ($ Given - Provider: Philipp Torres RN) 0521 ($ Given - Provider: Philipp Torres RN) 0.9% NaCl injection 3 mL(Linked Group 1) 3 mL, Intracatheter, EVERY 8 HOURS, First dose on Sun10/16/23 at 0700, Until Discontinued, Flush peripheral IV catheter with 3 mL of normal saline every 8 hours. 08 ($ Given - Provider: Kristopher Walker RN)132 ($ Given - Provider: Kristopher Walker RN)2024 (Not Administered - Provider: Philipp Torres RN - Reason: Documented on duplicate row) 0522 (Not Administered - Provider: Philipp Torres RN - Reason: Documented on duplicate row) 0.9% NaCl IV bolus (COMPLETED) 500 mL, at 967.74 mL/hr, Administer over 31 Minutes, NOW, 1 dose, On Sun10/15/23 at 1745 1831 ($ New Bag/Syringe - Provider: Guille Aguilera RN) 0839 (Stopped - Provider: Kristopher Walker RN) amLODIPine (Norvasc) tablet 10 mg 10 mg, Oral, DAILY, First dose on Sun10/16/23 at 0900, Until Discontinued 08 ($ Given - Provider: Kristopher Walker RN) 0829 ($ Given - Provider: Kristopher Walker RN) apixaban (Eliquis) tablet 2.5 mg 2.5 mg, Oral, 2 TIMES DAILY, First dose on Sun10/16/23 at 0900, Until Discontinued 0808 ($ Given - Provider: Kristopher Walker RN)2025 ($ Given - Provider: Philipp Torres RN) 0829 ($ Given - Provider: Kristopher Walker RN) carvedilol (Coreg) tablet 25 mg 25 mg, Oral, 2 TIMES DAILY, First dose on Sun10/16/23 at 0100, Until Discontinued, Take with food 0325 ($ Given - Provider: Philipp Torres RN)0808 ($ Given - Provider: Kristopher Walker RN)2025 ($ Given - Provider: Philipp Torres RN) 0829 ($ Given - Provider: Kristopher Walker RN) ceFAZolin (Ancef) 2 g in 0.9% NaCl IV 50 mL IVPB 2 g, at 100 mL/hr, Intravenous, EVERY 8 HOURS, 87 doses, First dose on Sun10/16/23 at 0100, Last dose on Sun11/13/23 at 1700, Indication for anti-infective therapy: Documented infection, Site of anti-infective therapy: Bone/Joint 0324 ($ New Bag/Syringe - Provider: Philipp Torres RN)0350 (Stopped - Provider: Philipp Torres RN)0813 ($ New Bag/Syringe - Provider: Kristopher Walker RN)0855 (Stopped - Provider: Kristopher Walker RN)1705 ($ New Bag/Syringe - Provider: Kristopher Walker RN)1748 (Stopped - Provider: Kristopher Walker RN)2340 ($ New Bag/Syringe - Provider: Philipp Torres RN) 0015 (Stopped - Provider: Philipp Torres RN)0833 ($ New Bag/Syringe - Provider: Kristopher Walker RN)0916 (Stopped - Provider: Kristopher Walker RN) cefTRIAXone (Rocephin) 2,000 mg in 0.9% NaCl IV 50 mL IVPB (COMPLETED) 2,000 mg (2 g), at 100 mL/hr, Intravenous, Once, 1 dose, On Sun10/15/23 at 1630, Ceftriaxone can cause precipitation when administered with calcium-containing fluids, including LR. Flush lines with a compatible fluid, such as D5W or NS before and after ceftriaxone dose. Admin through separate lumens is acceptable., Indication for anti-infective therapy: Suspected infection, Site of anti-infective therapy: Skin/soft tissue 1736 ($ New Bag/Syringe - Provider: Guille Aguilera RN) 0839 (Stopped - Provider: Kristopher Walker RN) diclofenac sodium (Voltaren) 1 % gel 2 g 2 g, Topical, 4 TIMES DAILY, First dose on Sun10/16/23 at 0900, Until Discontinued, Use dosing card to apply gel to hip pain. Do not discard dosing card. . WASTE DISPOSAL INSTRUCTIONS: Black Bin Disposal required. 0809 ($ Given - Provider: Kristopher Walker RN)1201 (Not Administered - Provider: Kristopher Walker RN - Reason: Refused-Patient)1705 ($ Given - Provider: Kristopher Walker RN)2025 ($ Given - Provider: Philipp Torres RN) 0829 (Not Administered - Provider: Kristopher Walker RN - Reason: Refused-Parent/Guard jenny) docusate sodium (Colace) capsule 100 mg 100 mg, Oral, 2 TIMES DAILY, First dose on Sun10/16/23 at 0900, Until Discontinued 08 ($ Given - Provider: Kristopher Walker RN)2024 ($ Given - Provider: Philipp Torres RN) 0829 ($ Given - Provider: Kristopher Walker RN) insulin aspart (NovoLOG) pen 0-12 Units 0-12 Units, Subcutaneous, 3 TIMES DAILY WITH MEALS, First dose on Sun10/16/23 at 0800, Until Discontinued, Standard Dose: Correction Insulin Bedside glucose should be done within 30-60 minutes of correction insulin administration. BG (mg/dL) Corrective Action LESS than 70 follow Hypoglycemic guidelines, 70-140 NO Correction insulin, 141-180 GIVE 2 units of insulin, 181-220 GIVE 4 units of insulin, 221-260 GIVE 6 units of insulin, 261-300 GIVE 8 units of insulin, 301-350 GIVE 10 units of insulin Greater than 350 GIVE 12 units of insulin and notify physician., If the patient is NPO; DO NOT HOLD correction insulin If patient is eating meals and has orders for Mealtime insulin, combine and give at the same time. 0808 (Not Administered - Provider: Kristopher Walker RN - Reason: Per Administration Instructions)1201 (Not Administered - Provider: Kristopher Walker RN - Reason: Per Administration Instructions)1748 (Not Administered - Provider: Kristopher Walker RN - Reason: Per Administration Instructions) 0829 ($ Given - Provider: Kristopher Walker RN) insulin aspart (NovoLOG) pen 0-5 Units 0-5 Units, Subcutaneous, AT BEDTIME, First dose on Sun10/16/23 at 2100, Until Discontinued, Standard Dose: Correction Insulin Bedside glucose should be done within 30-60 minutes of correction insulin administration. BG (mg/dL) Corrective Action LESS than 70 follow Hypoglycemic guidelines, 70-180 NO Correction insulin, 181-220 GIVE 1 units of insulin, 221-260 GIVE 2 units of insulin, 261-300 GIVE 3 units of insulin, 301-350 GIVE 4 units of insulin Greater than 350 GIVE 5 units of insulin and notify physician. If the patient is NPO; DO NOT HOLD correction insulin If patient is eating meals and has orders for Mealtime insulin, combine and give at the same time. 2026 (Not Administered - Provider: Philipp Torres RN - Reason: Per Administration Instructions) iopamidol (Isovue 370) 76 % contrast Intravenous, CONTRAST ONCE, Starting on Sun10/15/23 at 1754, Until Sun10/17/23 at 1158 1807 ($ Given - Contrast - Provider: Sonja Valencia) lidocaine (Lidoderm) 5 % patch 1 patch 1 patch, Administer over 12 Hours, EVERY 24 HOURS, First dose on Sun10/16/23 at 0015, Until Discontinued, Apply to hip and remove patch after a max of 12 hours of application within a 24 hour period. 2355 ($ Applied - Provider: Philipp Torres RN) 1154 (Removed - Provider: Kristopher Walker RN)2337 ($ Applied - Provider: Philipp Torres RN) 1137 (Due: Removed - Provider: Philipp Torres RN) lidocaine PF (Xylocaine MPF) 1 % injection (COMPLETED) Intradermal, ONCE, 1 dose, On Sun10/15/23 at 1815, For PICC line placement. Use lidocaine intradermally to produce wheal to locally anesthetize site if patient has NKA to Lidocaine. 1801 ($ Given - Provider: Angelika Ponce RN - Comment: PICC placement) morphine injection 4 mg (COMPLETED) 4 mg, Intravenous, NOW, 1 dose, On Sun10/15/23 at 1615, Patient preference for lesser PRN pain meds may be honored when the patient requests a less strong medication, a lower dose, or a less intrusive route of administration when the lesser drug, dose and route have been ordered for the patient. This patient request must be documented in the MAR. 1734 ($ Given - Provider: Guille Aguilera RN) morphine injection 4 mg (COMPLETED) 4 mg, Intravenous, NOW, 1 dose, On Sun10/15/23 at 2130, Patient preference for lesser PRN pain meds may be honored when the patient requests a less strong medication, a lower dose, or a less intrusive route of administration when the lesser drug, dose and route have been ordered for the patient. This patient request must be documented in the MAR. 2124 ($ Given - Provider: Philipp Torres RN) oxyCODONE-acetaminophen (Percocet) 5-325 MG tablet 1 tablet (COMPLETED) 1 tablet, Oral, Once, 1 dose, On Sun10/16/23 at 0000, Patient preference for lesser PRN pain meds may be honored when the patient requests a less strong medication, a lower dose, or a less intrusive route of administration when the lesser drug, dose and route have been ordered for the patient. This patient request must be documented in the MAR. 0005 ($ Given - Provider: Philipp Torres RN) pantoprazole EC (Protonix) tablet 40 mg 40 mg, Oral, DAILY, First dose on Sun10/16/23 at 0900, Until Discontinued, Do not crush, chew, or cut in half. 0807 ($ Given - Provider: Kristopher Walker RN) 0829 ($ Given - Provider: Kristopher Walker RN) pregabalin (Lyrica) capsule 50 mg 50 mg, Oral, 2 TIMES DAILY, First dose on Sun10/16/23 at 0900, Until Discontinued 806 ($ Given - Provider: Kristopher Walker RN)2024 ($ Given - Provider: Philipp Torres RN) 828 ($ Given - Provider: Kristopher Walker RN) rosuvastatin (Crestor) tablet 40 mg 40 mg, Oral, EVERY MORNING, First dose on Sun10/16/23 at 0700, Until Discontinued 806 ($ Given - Provider: Kristopher Walker RN) 520 ($ Given - Provider: Philipp Torres RN) sertraline (Zoloft) tablet 50 mg 50 mg, Oral, DAILY, First dose on Sun10/16/23 at 0900, Until Discontinued, Avoid concurrent administration with grapefruit juice 807 ($ Given - Provider: Kristopher Walker RN) 828 ($ Given - Provider: Kristopher Walker RN) PRN Medication Order 10/15/2023 10/16/2023 10/17/2023 0.9% NaCl injection 1-10 mL(Linked Group 1) 1-10 mL, Intracatheter, PRN, Other, peripheral line flush, Starting on Sun10/16/23 at 0626, Until Sun10/17/23 at 1158, Flush peripheral IV catheter with 1-10 mL of normal saline before and after medications and prn to clear blood from the line or to verify patency. 0.9% NaCl injection 10-40 mL 10-40 mL, Intracatheter, PRN, Other, PICC line flush, Starting on Sun10/15/23 at 1755, Until Sun10/17/23 at 1158, Flush each lumen of PICC with 10ml NS IVP before and after medication/solution administration for patency and blood return. Flush each lumen of PICC with 20 ml NS IVP after each infusion of blood products or lipids, and after each blood draw. 1807 ($ Given - Provider: Sonja Valencia) 0.9% NaCl IV flush bag (COMPLETED) 0-250 mL, Intracatheter, ONCE PRN, Contrast flush, 1 dose, Starting on Sun10/15/23 at 1754, Until Sun10/15/23 at 1808, For administration with contrast 1808 ($ Given - Provider: Sonja Valencia) acetaminophen (Tylenol) tablet 650 mg 650 mg, Oral, EVERY 4 HOURS PRN, Fever, For temperature GREATER than 101 , Starting on Sun10/16/23 at 06, Until Sun10/17/23 at 1158, Patient preference for lesser PRN pain meds may be honored when the patient requests a less strong medication, a lower dose, or a less intrusive route of administration when the lesser drug, dose and route have been ordered for the patient. This patient request must be documented in the 2025 ($ Given - Provider: Philipp Torres RN) dextrose 10 % IV bolus(Linked Group 2) 12.5 g, at 999 mL/hr, Intravenous, PRN, Other, Bedside Glucose less than 70 mg/dL -If NOT able to eat and/or NPO and with IV Access, Starting on Sun10/16/23 at 06, Until Sun10/17/23 at 1158, If NOT able to eat and/or NPO [...] EVENT. dextrose 10 % IV bolus(Linked Group 2) 25 g, at 937.5 mL/hr, Intravenous, PRN, Other, Bedside Glucose less than 70 mg/dL -If NOT able to eat and/or NPO and with IV Access, Starting on Sun10/16/23 at 06, Until Sun10/17/23 at 1158, If NOT able to eat and/or NPO [...] IV STAT NOTIFY PROVIDER OF HYPOGLYCEMIC EVENT. glucagon (Glucagen) injection 1 mg(Linked Group 2) 1 mg, Subcutaneous, PRN, Bedside Glucose less than 70 mg/dL - If NOT able to eat and/or NPO and withOUT IV Access, Starting on Sun10/16/23 at 06, Until Sun10/17/23 at 1158, If NOT able to eat and/or NPO [...] Glucose less than 70 mg/dL, Starting on Sun10/16/23 at 06, Until Sun10/17/23 at 1158, If able to take oral medications: For Bedside Glucose 54 - 69 mg/dL [...] for choices) NOTIFY PROVIDER OF HYPOGLYCEMIC EVENT. ondansetron (disintegrating) (Zofran ODT) tablet 4 mg(Linked Group 3) 4 mg, Oral, EVERY 6 HOURS PRN, Nausea/Vomiting, Starting on Sun10/16/23 at 0627, Until Sun10/17/23 at 1158, Dissolved orally on tongue ondansetron (Zofran) injection 4 mg(Linked Group 3) 4 mg, Intravenous, EVERY 6 HOURS PRN, Nausea/Vomiting, Starting on Sun10/16/23 at 0627, Until Sun10/17/23 at 1158, Administer IV if patient is NPO, actively vomiting, or unable to swallow. oxyCODONE-acetaminophen (Percocet) 5-325 MG tablet 1 tablet 1 tablet, Oral, EVERY 4 HOURS PRN, Moderate Pain, Starting on Sun10/16/23 at 1708, Until Sun10/17/23 at 1158, Patient preference for lesser PRN pain meds may be honored when the patient requests a less strong medication, a lower dose, or a less intrusive route of administration when the lesser drug, dose and route have been ordered for the patient. This patient request must be documented in the OCT. 1912 ($ Given - Provider: Kristopher Walker RN)2333 ($ Given - Provider: Philipp Torres RN) 0521 ($ Given - Provider: Philipp Torres RN) Linked Groups Order Group 1: SALINE LOCK, INSERT AND MAINTAIN (CANCELED) Routine, CONTINUOUS, Starting on Sun10/16/23 at 0630, Until Specified, New collection And 0.9% NaCl injection 3 mLJump to med 3 mL, Intracatheter, EVERY 8 HOURS, First dose on Sun10/16/23 at 0700, Until Discontinued, Flush peripheral IV catheter with 3 mL of normal saline every 8 hours. And 0.9% NaCl injection 1-10 mLJump to med 1-10 mL, Intracatheter, PRN, Other, peripheral line flush, Starting on Sun10/16/23 at 0626, Until Sun10/17/23 at 1158, Flush peripheral IV catheter with 1-10 mL of normal saline before and after medications and prn to clear blood from the line or to verify patency. Group 2: dextrose 10 % IV bolusJump to med 12.5 g, at 999 mL/hr, Intravenous, PRN, Other, Bedside Glucose less than 70 mg/dL -If NOT able to eat and/or NPO and with IV Access, Starting on Sun10/16/23 at 06, Until Sun10/17/23 at 1158, If NOT able to eat and/or NPO [...] IV bolusJump to med 25 g, at 937.5 mL/hr, Intravenous, PRN, Other, Bedside Glucose less than 70 mg/dL -If NOT able to eat and/or NPO and with IV Access, Starting on Sun10/16/23 at 626, Until Sun10/17/23 at 1158, If NOT able to eat and/or NPO [...] NPO and withOUT IV Access, Starting on Sun10/16/23 at 626, Until Sun10/17/23 at 1158, If NOT able to eat and/or NPO [...] gently; use immediately and discard unused portion Group 3: ondansetron (disintegrating) (Zofran ODT) tablet 4 mgJump to med 4 mg, Oral, EVERY 6 HOURS PRN, Nausea/Vomiting, Starting on Sun10/16/23 at 0627, Until Sun10/17/23 at 1158, Dissolved orally on tongue Or ondansetron (Zofran) injection 4 mgJump to med 4 mg, Intravenous, EVERY 6 HOURS PRN, Nausea/Vomiting, Starting on Sun10/16/23 at 0627, Until Sun10/17/23 at 1158, Administer IV if patient is NPO, actively vomiting, or unable to swallow. documented in this encounter Care Teams Help Desk Consultant Relationship Specialty Start Date End Date Faisal Richardson DO [address] [place] [id number] PCP - General Family Medicine 11/27/22 documented as of this encounter
--- OUTSIDE RECORDS SUMMARY | 2024-07-28 00:57 | XMS_ITS | Encounter Summary ---
Author Organization [facility] Address [address] [place] [address] Care Team Providers Care Business Process Architect Name Role Phone Faisal Richardson DO Primary Care Provider [phone] Reason for Visit * Reason Comments Injury Leg Right leg pain. Hx o f hip and knee surgery * Auth/Cert (Routine) Specialty Diagnoses / Procedures Referred By Contac t Referred To Contact Referral ID Status Reason Start Date Expiration Date Visits Re quested Visits Authorized [id number] 1 1 Encounter Details Date Type Department Care Team (Late st Contact Info) Description 10/02/2023 2:00 PM FIELD INSTALLATION TECHNICIAN - 10/02/2023 3:46 PM FIELD INSTALLATION TECHNICIAN Surgery [facility] [address] [place] [address] Torrey Lafleur MD [address] [address] IRRIGATION AND DEBRIDEMENT HIP -- RIGHT HIP, DELAYED PRIMARY CLOSURE OF COMPLEX WOUND, REMOVAL OF ANTIBIOTIC BEADS, REVISION OF BOTH HIP COMPONENTS -- RIGHT HIP, WOUND VAC APPLICATION Surgery Details Date/Time Status Location OR Service Patient Class Case Class Case Type Trauma Case? 10/02/2023 2:00 PM Posted [facility] MAIN OR OR 03 Orthopedics Inpatient Elective > 5 days Panel 1 Procedure LRB Anes Op Region Wound Class Comments IRRIGATION AND DEBRIDEMENT H IP -- RIGHT HIP, DELAYED PRIMARY CLOSURE OF COMPLEX WOUND, REMOVAL OF ANTIBIOTIC BEADS, REVISION OF BOTH HIP COMPONENTS -- RIGHT HIP, WOUND VAC APPLICATION Right General Hip Dirty or Infected Surgeon Surgeon Role Service Panel Torrey Lafleur MD Primary Orthopedics 1 Special Needs NEEDS REGULAR O.R. TABLE, WOUND VAC SUPPLIES KEPT IN O.R. SUPPLY ROOM, WOUND VAC MACHINE NEEDS TO BE SENT FROM THE PATIENT'S ROOM TO SURGERY--09/26 KW documented in this encounter Social History Tobacco Use Types Packs/Day Years [...] and heating? Not hard at all 12/14/2022 [place] [facility] - Occupational Stress [...] place to sleep or slept in a mcfp (including now)? No 12/14/2022 Sex and Gender Information Value Date Recorded Sex Assigned at Not on file Gender Identity Not on file Sexual Orientation Not on file documented as of this encounter Last Filed Vital Signs Vital Sign Reading Time Taken Comments Blood Pressure 128/69 10/02/2023 7:41 AM FIELD INSTALLATION TECHNICIAN Pulse 67 10/02/2023 7:41 AM FIELD INSTALLATION TECHNICIAN Temperature 36.9 ??C (98.5 ??F) 10/02/2023 7:41 AM CS T Respiratory Rate 18 10/02/2023 7:41 AM FIELD INSTALLATION TECHNICIAN Oxygen Saturation 95% 10/02/2023 7:41 AM FIELD INSTALLATION TECHNICIAN Inhaled Oxygen Concentration - - Weight 124.7 kg (275 lb) 09/24/2023 6:13 PM FIELD INSTALLATION TECHNICIAN Height 182.9 cm (6') 09/24/2023 6:13 PM FIELD INSTALLATION TECHNICIAN Body Mass Index 37.3 09/24/2023 6:13 PM FIELD INSTALLATION TECHNICIAN documented in this encounter Functional Status Functional [...] 10/03/2023 R Basilic Vein PICC Placement by SMSEstela SELLERS RN ??? Sleep apnea uses cpap ??? Stroke ([facility]) 2021 balance residual ??? Type 2 diabetes mellitus without complications ([facility]) Discharge Diagnoses Right prosthetic hip, hardware infection [...] mouth 2 times daily ergocalciferol 1.25 MG (13366 UT) capsule Commonly known as: Drisdol Take [...] capsule by mouth 2 times daily Blaire Lyndhurst Probiotic 1-250 BILLION-MG Caps rosuvastatin 20 MG [...] diagnosis is: Prosthetic hip infection, initial encounter ([facility]) [[id number]] Follow up with Primary Care Provider (PCP) [...] Praveen Kaufman MD Date of Service: 10/04/23 D INSTALLATION TECHNICIAN documented in this encounter Discharge Instructions * Discharge Instructions* Praveen Kaufman MD - 10/04/2023 11:22 AM FIELD INSTALLATION TECHNICIAN Hip Precautions as follows: Posterior hip precautions- [...] tub soaks. No scrubbing around incision. Call [phone] to schedule the first follow-up appointment with Dr. Lafleur in 3 week(s) or for any questions D INSTALLATION TECHNICIAN documented in this encounter Medications at Time [...] MG/0.5ML injection 10/17/2021 ergocalciferol (Drisdol) 1.25 MG (60170 UT) capsule Take 1 (one) capsule by mouth 05/02/2022 ferrous sulfate 325 (65 FE) MG tablet Take 1 (one) tablet by mouth once daily metFORMIN (Glucophage) 1000 MG tablet Take 1 (one) tablet by mouth 2 times daily 03/05/2022 Multiple Vitamins-Minerals (One-A-Day Mens Health Formula) TABS 08/06/2021 oxyCODONE-acetaminophe n (Percocet) 5-325 MG tabletIndications:Infe ction of prosthetic joint, initial encounter ([facility]) Take 1 (one) tablet by mouth [...] this encounter Progress Notes * Meenakshi Manzanares RN - 10/03/2023 10:51 PM CST Problem: [...] Goal: Hip precautions are followed Outcome: Progressing D INSTALLATION TECHNICIAN * Chauncey Hutchinson - 10/03/2023 3:40 PM CST Images from the original note were not included. Patient provided list of in-network home health care. Home Health Referrals have been initiated based on patient's choice: Continued Care and Services - Admitted Since 09/24/2023 Home Medical Care Coordination complete. Service Provider Request Status Selected Services Address Phone Fax Patient Preferred [facility] Selected Home Health Services [phone] [phone] -- D INSTALLATION TECHNICIAN * Praveen Kaufman MD - 10/03/2023 3:10 [...] OR again on 10/02 Evaluated by ID REFUGIO Ancef Pain control PICC line No outpt from wound vac - discussed with RN and ortho team aware per RN 1 month DVT ppx Hypertension Continue amlodipine and coreg CVA history: Continue statin Holding aspirin, Plavix ?? Diabetes mellitus Sliding scale insulin Diabetic diet ?? Mood disorder: Continue Wellbutrin, Zoloft ?? Hypertension: Continue Norvasc, Coreg ?? GERD: Protonix Psoriasis Follows with Dermatology at [facility], resolved DVT ppx -Lovenox Disposition: Pending clinical course . Praveen Kaufman MD Date of Service: 10/03/23 Patient was seen by me on 10/03 at around 1045 D INSTALLATION TECHNICIAN * Mellissa Holland, PT - 10/03/2023 3:08 PM CST Physical [...] a decline in function. Mellissa PT [phone] D INSTALLATION TECHNICIAN * Deena Kline RN - 10/03/2023 2:48 PM CST Care Coordination Progress Note Anticipated level of care at discharge: Home Health - IV and Home Health Care: Anticipated level of care provider: [facility] Nichelle Wasserman [facility]: Anticipated Discharge Date: 10/04/23: Discharge Plan: Patient pending PICC line placement, initially opened with [facility] and [facility] Care new home health care order submitted to [facility]. Patient will discharge with a Prevena. Orientation Level: Oriented X4: Family Support (Name and Phone): Extended Emergency Contact Information Primary Emergency Contact: Marguerite Rutledge Address: [address] [place] [address] Relation: Spouse Transportation at Discharge: : READMISSION RISK SCORE is 12 at 2:48 PM 10/03/2023.: Name: Deena Kline RN, BSN, MSN,CM /[phone] D INSTALLATION TECHNICIAN * Sigifredo Kruse OT - 10/03/2023 2:15 [...] time. Will D/C OT. Sigifredo OT [phone] D INSTALLATION TECHNICIAN * Kenna Ocampo MD - 10/03/2023 8:52 [...] results for input(s): CDIFFTOXINAB in the last 91654 hours. Recent Labs Component Name 09/24/23 1058 SEDRATE 50* Recent Labs Component Name 09/24/23 1058 04/04/23 0950 CRP 5.64* 0.33 No results for input(s): CK in the last 48423 hours. . Recent Labs Component Name 09/26/23 0455 VANCOPEAK 18.3* Recent Labs Component Name 09/25/23 01412/14/22 1933 11/27/22 0950 HGBA1C 6.4* 6.0* 5.6 [...] infection -06/2022: s/p hip arthroplasty for arthritis ([place], [place]) -08/30/22: s/p hardware removal due to infection, IV abx x 6wks ([place]) -12/08/22: s/p revision arthroplasty, fixation of [...] CMP, UA, sed rate. Fax results to [phone] Discussed with IV team Please be advised that part of this text was done using voice recognition software. Errors may havebeen missed upon review. Kenna Ocampo MD D INSTALLATION TECHNICIAN * Jose Villa MD - 10/03/2023 8:18 [...] soaks. No scrubbing around incision. ?? Call [phone] to schedule the first follow-up appointment with Dr. Lafleur in 3 week(s) or for any questions D INSTALLATION TECHNICIAN * Chacho Tian RN - 10/03/2023 4:50 AM CST Problem: Pain/Discomfort Goal: Patient exhibits reduced pain/discomfort as evidenced by pain scores 10/03/2023 0450 by Chacho Tian RN Outcome: Progressing 10/03/2023448 by Chacho Tian RN Outcome: Progressing Goal: Patient uses pharmacological and non-pharmacological pain management strategies. 10/03/2023 0450 by Chacho Tian RN Outcome: Progressing 10/03/2023448 by Chacho Tian RN Outcome: Progressing Goal: Patient verbalizes acceptable level of pain relief and ability to engage in desired activity. 10/03/2023 0450 by Chacho Tian RN Outcome: Progressing 10/03/2023 0449 by Chacho Tian RN Outcome: Progressing Goal: Patient's functional goal is met Outcome: Progressing Problem: Fall Risk Goal: Fall risk and fall related injury risk are minimized (interventions related to the fall risk can be found in the flowsheet documentation) 10/03/2023 0450 by Chacho Tian RN Outcome: Progressing 10/03/2023 044 by Chacho Tian RN Outcome: Progressing Problem: [...] Goal: Hip precautions are followed Outcome: Progressing D INSTALLATION TECHNICIAN * Jose Villa MD - 10/02/2023 4:18 [...] 7. Antibiotics per ID/primary 8. Dispo: floor D INSTALLATION TECHNICIAN * Deena Kline RN - 10/02/2023 2:00 PM CST Care Coordination Progress Note Anticipated level of care at discharge: Home Health - IV and Home Health Care: Anticipated level of care provider: Kelsy Wasserman [place] [facility]: Anticipated Discharge Date: 10/04/23: Discharge Plan: Patient will need IV antibiotic for 6 weeks with a end date of November 13, 2023 from last I&D 10.02.23. Patient will discharge home with [facility] and [facility]. CM will continue to follow POC and provide additional assistance as needed. Orientation Level: Oriented X4: Family Support (Name and Phone): Extended Emergency Contact Information Primary Emergency Contact: Marguerite Rutledge Address: [address] [place] [phone] Relation: Spouse Transportation at Discharge: : READMISSION RISK SCORE is 12 at 2:00 PM 10/02/2023.: Name: Deena Kline RN, BSN, MSN, CM /[phone] D INSTALLATION TECHNICIAN * Bailey Jones RN - 10/02/2023 11:31 [...] using AE and maintaining PHP Outcome: Progressing D INSTALLATION TECHNICIAN * Kenna Ocampo MD - 10/02/2023 8:52 [...] results for input(s): CDIFFTOXINAB in the last 27584 hours. Recent Labs Component Name 09/24/23 1058 SEDRATE 50* Recent Labs Component Name 09/24/23 1058 04/04/23 0950 CRP 5.64* 0.33 No results for input(s): CK in the last 19007 hours. . Recent Labs Component Name 09/26/23 [...] infection -06/2022: s/p hip arthroplasty for arthritis ([place], [place]) -08/30/22: s/p hardware removal due to infection, IV abx x 6wks ([place]) -12/08/22: s/p revision arthroplasty, fixation of [...] CMP, UA, sed rate. Fax results to [phone] Please be advised that part of this text was done using voice recognition software. Errors may havebeen missed upon review. Kenna Ocampo MD D INSTALLATION TECHNICIAN * Praveen Kaufman MD - 10/02/2023 8:10 [...] GERD: Protonix Psoriasis Follows with Dermatology at [facility], resolved DVT ppx -Lovenox (HOLD FOR OR ) Disposition: Pending clinical course . Praveen Kaufman MD Date of Service: 10/02/23 Patient was seen by me on 10/02 at around 1040 D INSTALLATION TECHNICIAN * Torrey Lafleur MD - 10/02/2023 7:41 [...] AND DEBRIDEMENT RIGHT HIP, REMOVAL OF ANTIBIOTIC [id number], PLACEMENT OF ANTIBIOTIC BEADS x20, WOUND VAC [...] MG/0.5ML injection ??? ergocalciferol (Drisdol) 1.25 MG (44988 UT) capsule Take 1 (one) capsule by [...] ??? Sleep apnea uses cpap ??? Stroke ([facility]) 2021 balance residual ??? Type 2 diabetes mellitus without complications ([facility]) Past Surgical History: Procedure Laterality Date ??? [...] dictation was performed with the use of [email or web address] voice recognition and errors with transcriptionmay occur. Please see resident's note for further details. Torrey Lafleur MD D INSTALLATION TECHNICIAN * Sanjay Kumar RN - 10/02/2023 6:30 AM CST Problem: Pain/Discomfort Goal: Patient exhibits reduced pain/discomfort as evidenced by pain scores Outcome: Progressing Problem: Fall Risk Goal: Fall risk and fall related injury risk are minimized (interventions related to the fall risk can be found in the flowsheet documentation) Outcome: Progressing D INSTALLATION TECHNICIAN * Bailey Jones RN - 10/01/2023 5:51 [...] step with SBA and LRD Outcome: Progressing D INSTALLATION TECHNICIAN * Yasemin De RD/SLICK - 10/01/2023 1:37 PM CST BRIEF SYNOPSIS: [...] results for input(s): PREALBUMIN in the last 91263 hours. Patient Vitals for the past 30 [...] Combs RD/SLICK 10/01/2023 1:40 PM Ascom [id number] D INSTALLATION TECHNICIAN * Praveen Kaufman MD - 10/01/2023 1:16 [...] GERD: Protonix Psoriasis Follows with Dermatology at [facility] Constipation, resolved DVT ppx -Lovenox (HOLD FOR OR TOMORROW) Disposition: Pending clinical course . OR Sunday Praveen Kaufman MD Date of Service: 10/01/23 Patient was seen by me on 10/01 at around 1045 D INSTALLATION TECHNICIAN * Deena Kline RN - 10/01/2023 10:30 AM CST Care Coordination Progress Note Anticipated level of care at discharge: Home Health - IV and Home Health Care: Anticipated level of care provider: [facility] Nichelle Wasserman [facility] HOME [facility]ALTH: Anticipated Discharge Date: 10/02/23: Discharge [...] Information Primary Emergency Contact: Marguerite Rutledge Address: [address] [place] [phone] Relation: Spouse Transportation at Discharge: : READMISSION RISK SCORE is 12 at 10:30 AM 10/01/2023.: Name: Deena Kline RN, BSN, MSN, CM /[phone] D INSTALLATION TECHNICIAN * Kenna Ocampo MD - 10/01/2023 9:47 [...] no hope/seizures Psych: no depression/anxiety Exam Vitals: 02/212610/01/23 0001 10/01/23 0533 10/01/23 0729 BP: 137/73 [...] results for input(s): CDIFFTOXINAB in the last 12568 hours. Recent Labs Component Name 09/24/23 1058 SEDRATE 50* Recent Labs Component Name 09/24/23 1058 04/04/23 0950 CRP 5.64* 0.33 No results for input(s): CK in the last 20746 hours. . Recent Labs Component Name 09/26/23 [...] infection -06/2022: s/p hip arthroplasty for arthritis ([place], [place]) -08/30/22: s/p hardware removal due to infection, IV abx x 6wks ([place], [place]) -12/08/22: s/p revision arthroplasty, fixation of [...] CMP, UA, sed rate. Fax results to [phone] Please be advised that part of this text was done using voice recognition software. Errors may havebeen missed upon review. Kenna Ocampo MD D INSTALLATION TECHNICIAN * Jose Villa MD - 10/01/2023 9:16 [...] AND DEBRIDEMENT RIGHT HIP, REMOVAL OF ANTIBIOTIC [id number], PLACEMENT OF ANTIBIOTIC BEADS x20, WOUND VAC [...] questions Jose Villa MD 10/01/2023 9:17 AM D INSTALLATION TECHNICIAN * Praveen Kaufman MD - 09/30/2023 10:08 [...] GERD: Protonix Psoriasis Follows with Dermatology at [facility], resolved DVT ppx -Lovenox Disposition: Pending clinical course . OR Sunday Praveen Kaufman MD Date of Service: 09/30/23 Patient was seen by me on 09/30 at around 0845 D INSTALLATION TECHNICIAN * Ashish Barnett MD - 09/30/2023 8:34 AM CST [...] of right hip arthroplasty in 06/2022 at [facility] in [place], [place]. Due to infectionhe is s/p removal or arthroplasty in 08/30/22 at [facility]; received IV antibiotics x 6 weeks [...] Once Data Recent Labs Component Name 09/25/23 01409/24/23 1058 12/16/22 0545 WBC 9.9 11.8* 7.1 [...] results for input(s): CDIFFTOXINAB in the last 75401 hours. Recent Labs Component Name 09/24/23 1058 SEDRATE 50* Recent Labs Component Name 09/24/23 1058 04/04/23 0950 CRP 5.64* 0.33 No results for input(s): CK in the last 23731 hours. . Recent Labs Component Name 09/26/23 [...] infection -06/2022: s/p hip arthroplasty for arthritis ([place]) -08/30/22: s/p hardware removal due to infection, IV abx x 6wks ([place]) -12/08/22: s/p revision arthroplasty, fixation of [...] with patient, care team Ashish Barnett MD D INSTALLATION TECHNICIAN * Ashish Barnett MD - 09/29/2023 5:20 [...] of right hip arthroplasty in 06/2022 at [facility] in [place], [place]. Due to infectionhe is s/p removal or arthroplasty in 08/30/22 at [facility]; received IV antibiotics x 6 weeks [...] results for input(s): CDIFFTOXINAB in the last 11410 hours. Recent Labs Component Name 09/24/23 1058 SEDRATE 50* Recent Labs Component Name 09/24/23 1058 04/04/23 0950 CRP 5.64* 0.33 No results for input(s): CK in the last 18535 hours. . Recent Labs Component Name 09/26/23 0455 VANCOPEAK 18.3* Recent Labs Component Name 09/25/23 0141 12/14/22193211/27/22 0950 HGBA1C 6.4* 6.0* 5.6 Recent Labs Component Name 04/24/23 0950 COLORUA Yellow CLARITYUA Clear SPECGRAVUA 1.019 [...] infection -06/2022: s/p hip arthroplasty for arthritis ([place]) -08/30/22: s/p hardware removal due to infection, IV abx x 6wks ([place]) -12/08/22: s/p revision arthroplasty, fixation of [...] with patient, care team Ashish Barnett MD D INSTALLATION TECHNICIAN * Praveen Kaufman MD - 09/29/2023 12:59 [...] Pain controlled had bowel movement Exam Vitals: 09/28/233 09/28/23 2148 09/29/23 0601 09/29/23 0850 BP: [...] GERD: Protonix Psoriasis Follows with Dermatology at [facility], resolved Discussed with at bedside DVT ppx -Lovenox Disposition: Pending clinical course Praveen Kaufman MD Date of Service: 09/29/23 Patient was seen by me on 09/29 at around 1015 D INSTALLATION TECHNICIAN * Deena Kline RN - 09/28/2023 3:11 PM CST Care Coordination Progress Note Anticipated level of care at discharge: Home Health - IV and Home Health Care: Anticipated level of care provider: Kelsy Wasserman [facility]: Anticipated Discharge Date: 10/02/23: Discharge [...] Information Primary Emergency Contact: Marguerite Rutledge Address: [address] [place] [phone] Relation: Spouse Transportation at Discharge: : READMISSION RISK SCORE is 10 at 3:11 PM 09/28/2023.: Name: Deena Kline RN, BSN, MSN, CM /[phone] D INSTALLATION TECHNICIAN * Millie Costello, PT - 09/28/2023 2:45 [...] Active Participation Mobility: Supine to Sit: Modified [place] Sit to Supine: Modified [place] Sit to Stand: Supervision Stand to Sit: [...] place and intact pre and post visit. D INSTALLATION TECHNICIAN * Ashish Barnett MD - 09/28/2023 2:10 [...] of right hip arthroplasty in 06/2022 at [facility] in [place]. Due to infectionhe is s/p removal or arthroplasty in 08/30/22 at [facility]; received IV antibiotics x 6 weeks [...] Oral, QDAY ?? [] *Hold/Avoid Medication, Other, 799 and 1999 Data Recent Labs Component Name [...] results for input(s): CDIFFTOXINAB in the last 99014 hours. Recent Labs Component Name 09/24/23 1058 SEDRATE 50* Recent Labs Component Name 09/24/23 1058 04/04/23 0950 CRP 5.64* 0.33 No results for input(s): CK in the last 79957 hours. . Recent Labs Component Name 09/26/23 [...] infection -06/2022: s/p hip arthroplasty for arthritis ([place]) -08/30/22: s/p hardware removal due to infection, IV abx x 6wks ([place]) -12/08/22: s/p revision arthroplasty, fixation of [...] with patient, care team Ashish Barnett MD D INSTALLATION TECHNICIAN * Praveen Kaufman MD - 09/28/2023 12:33 [...] GERD: Protonix Psoriasis Follows with Dermatology at [facility] Constipation miralax Lactulose x 1 Dulcolax suppository if no BM by 2 pm Discussed with at bedside DVT ppx -Lovenox Disposition: Pending clinical course Praveen Kaufman MD Date of Service: 09/28/23 Patient was seen by me on 09/28 at around 1020 D INSTALLATION TECHNICIAN * Lane Nathan, OT - 09/28/2023 11:02 AM CST Occupational [...] 1. Infection of prosthetic joint, initial encounter ([facility]) 2. Pain of right hip 3. Inability [...] Mobility: Bed Mobility: Supine to Sit: Modified [place] (HOB elevated) Sit to Supine: Modified [place] (HOB elevated) Transfers: Sit to Stand: Supervision Stand to Sit: Supervision Mobility: Distance Ambulated: (Functional mobility in room) Ambulation: Assistive Device: Gait Belt;Walker-2 Wheeled Ambulation: Level of Assistance: Supervision ADL Tasks: Based on observation and clinical judgement Feeding: Complete [place] Oral Facial Hygiene: Supervision Bathing: Supervision Upper Body Dressing: Set-up Lower Body Dressing: Supervision Toileting: Supervision RUE Assessment: AROM - Right Upper Extremity: Within Functional Limits Strength - Right Upper Extremity: Within Functional Limits Defect Cutter Strength:Defect Cutter Strength - Right Upper Extremity: WFL LUE Assessment: AROM - Left Upper Extremity: Within Functional Limits Strength - Left Upper Extremity: Within Functional Limits Defect Cutter Strength:Defect Cutter Strength - Left Upper Extremity: WFL: Activity [...] the discharge summary. MEL Sherman, OTR/L [phone] D INSTALLATION TECHNICIAN * Felipe Miller MD - 09/28/2023 4:36 [...] AND DEBRIDEMENT RIGHT HIP, REMOVAL OF ANTIBIOTIC [id number], PLACEMENT OF ANTIBIOTIC BEADS x20, WOUND VAC [...] Miller MD 09/28/2023 4:36 AM Pager number: [phone] Orthopedic Surgery Resident D INSTALLATION TECHNICIAN * Brigido Lundberg MD - 09/27/2023 12:16 [...] patient. Brigido Lundberg MD 09/27/2023 12:17 PM D INSTALLATION TECHNICIAN * Lane Nathan OT - 09/27/2023 12:10 PM CST Attempted to see pt for OT follow-up; however pt MILAD for repeat I&D of R hip. Will continue to follow. Appreciate updated WB/activity orders post op. BRANDIE Sherman [phone] 09/27/2023 D INSTALLATION TECHNICIAN * Praveen Kaufman MD - 09/27/2023 10:56 [...] GERD: Protonix Psoriasis Follows with Dermatology at [facility] Discussed with daughter and at bedside DVT ppx -Lovenox (hold for OR today) Disposition: Pending clinical course Praveen Kaufman MD Date of Service: 09/27/23 Patient was seen by me on 09/27 at around 0930 D INSTALLATION TECHNICIAN * Millie Costello, PT - 09/27/2023 10:48 [...] WB status and activity orders post op. D INSTALLATION TECHNICIAN * Ashish Barnett MD - 09/27/2023 10:00 [...] of right hip arthroplasty in 06/2022 at [facility] in [place]. Due to infectionhe is s/p removal or arthroplasty in 08/30/22 at [facility]; received IV antibiotics x 6 weeks [...] SCHEDULED MEDICATIONS: *Hold/Avoid Medication, Other, 0800 and 1999 0.9% NaCl injection 3 mL, Intracatheter, q8h [...] results for input(s): CDIFFTOXINAB in the last 83512 hours. Recent Labs Component Name 09/24/23 1058 SEDRATE 50* Recent Labs Component Name 09/24/23 1058 04/04/23 0950 CRP 5.64* 0.33 No results for input(s): CK in the last 04355 hours. . Recent Labs Component Name 09/26/23 [...] infection -06/2022: s/p hip arthroplasty for arthritis ([place], [place]) -08/30/22: s/p hardware removal due to infection, IV abx x 6wks ([place]) -12/08/22: s/p revision arthroplasty, fixation of [...] with patient, care team Ashish Barnett MD D INSTALLATION TECHNICIAN * Brigido Lundberg MD - 09/27/2023 6:49 [...] exchange 9. Please page ortho with questions D INSTALLATION TECHNICIAN Associated attestation - Torrey Lafleur MD - 09/27/2023 10:35 AM FIELD INSTALLATION TECHNICIAN Patient seen and examined, agree with above [...] 1.5 MG/0.5ML injection ergocalciferol (Drisdol) 1.25 MG (31403 UT) capsule Take 1 (one) capsule by [...] leg syndrome Sleep apnea uses cpap [place] 2021 balance residual Type 2 diabetes [place] Past Surgical History: Procedure Laterality Date Appendectomy [...] dictation was performed with the use of [email or web address] voice recognition and errors with transcriptionmay occur. [...] AE and maintaining PHP Outcome: Not Progressing D INSTALLATION TECHNICIAN * Mamta Kyle [facility] - 09/26/2023 3:09 PM CST Images from [...] 09/25/23 0141 Estimated creatinine clearance: 123.2 mL/min D INSTALLATION TECHNICIAN * Ashish Barnett MD - 09/26/2023 2:29 [...] of right hip arthroplasty in 06/2022 at [facility] in [place], [place]. Due to infectionhe is s/p removal or arthroplasty in 08/30/22 at [facility]; received IV antibiotics x 6 weeks [...] SCHEDULED MEDICATIONS: *Hold/Avoid Medication, Other, 0800 and 1999 0.9% NaCl injection 3 mL, Intracatheter, q8h [...] results for input(s): CDIFFTOXINAB in the last 87960 hours. Recent Labs Component Name 09/24/23 1058 SEDRATE 50* Recent Labs Component Name 09/24/23 1058 04/04/23 0950 CRP 5.64* 0.33 No results for input(s): CK in the last 42394 hours. . Recent Labs Component Name 09/26/23 [...] infection -06/2022: s/p hip arthroplasty for arthritis ([place], [place]) -08/30/22: s/p hardware removal due to infection, IV abx x 6wks ([place], [place]) -12/08/22: s/p revision arthroplasty, fixation of [...] with patient, care team Ashish Barnett MD D INSTALLATION TECHNICIAN * Angelika Tamayo, PT - 09/26/2023 11:59 [...] vac Bed Mobility: Supine to Sit: Modified [place] Transfers: Sit to Stand: Stand By Assist [...] as the discharge summary. ABHISHEK Guevara [phone] D INSTALLATION TECHNICIAN * Tyler Fischer RN - 09/26/2023 11:29 [...] using AE and maintaining PHP Outcome: Progressing D INSTALLATION TECHNICIAN * Praveen Kaufman MD - 09/26/2023 11:17 [...] GERD: Protonix Psoriasis Follows with Dermatology at [facility] DVT ppx -Lovenox (hold after today dose) Disposition: Pending clinical course Praveen Kaufman MD Date of Service: 09/26/23 Patient was seen by me on 09/26 at around 1000 D INSTALLATION TECHNICIAN * Brigido Lundberg MD - 09/26/2023 8:04 [...] exchange 8. Please page ortho with questions D INSTALLATION TECHNICIAN * Shoshana Howard RN - 09/26/2023 4:26 AM CST Problem: Pain/Discomfort Goal: Patient uses pharmacological and non-pharmacological pain management strategies. Outcome: Progressing Problem: Fall Risk Goal: Fall risk and fall related injury risk are minimized (interventions related to the fall risk can be found in the flowsheet documentation) Outcome: Progressing D INSTALLATION TECHNICIAN * Lane Nathan, OT - 09/25/2023 2:45 [...] 1. Infection of prosthetic joint, initial encounter ([facility]) 2. Pain of right hip 3. Inability [...] - Right Upper Extremity: Within Functional Limits Defect Cutter Strength: Defect Cutter Strength - Right Upper Extremity: WFL LUE Assessment: AROM - Left Upper Extremity: Within Functional Limits Strength - Left Upper Extremity: Within Functional Limits Defect Cutter Strength: Defect Cutter Strength - Left Upper Extremity: WFL: Basic ADL's: Based on observation and clinical judgement Feeding: Complete [place] Oral Facial Hygiene: Stand By Assist (for [...] the discharge summary. MEL Sherman, OTR/L [phone] D INSTALLATION TECHNICIAN * Angelika Tamayo, PT - 09/25/2023 2:10 [...] 17 SUBJECTIVE: Subjective: This isn't my first rodeo Home Situation: Type of Residence: Private Residence [...] as the discharge summary. ABHISHEK Guevara [phone] D INSTALLATION TECHNICIAN * Praveen Kaufman MD - 09/25/2023 10:10 [...] GERD: Protonix Psoriasis Follows with Dermatology at [facility] DVT ppx -Lovenox Disposition: Pending clinical course Praveen Kaufman MD Date of Service: 09/25/23 Patient was seen by me on 09/25 at around 0950 D INSTALLATION TECHNICIAN * Brigido Lundberg MD - 09/25/2023 8:26 [...] exchange 8. Please page ortho with questions D INSTALLATION TECHNICIAN * Deena Kline RN - 09/25/2023 7:38 AM CST Care Coordination Initial Assessment Anticipated Discharge Date: 10/02/23 Transportation at Discharge: Anticipated level of care at discharge: Home Health - IV and Home Health Care Anticipated level of care provider: [facility] Nichelle Lisy [facility] Prior to admission level of [...] and wound closure vs wound vac exchange 224, blood cx, labs, arthrocentesis cultures, anticipate prolonged IV antibiotic course x 6 weeks/ PICC line eventually once blood cx negativex 48 hours. CM has contacted [facility] for potential services and referral has been sent to [facility]. CM will continue to follow POC and provide additional assistance as needed. Lives with: Spouse Physical Limitations: None Requires Assistance With: None Preferred Pharmacy: [facility] [place] [address] [phone] [address] [id number] READMISSION RISK SCORE is 14 at 6:43 AM 09/26/2023. Met with patient Family Support (name and phone): Extended Emergency Contact Information Primary Emergency Contact: Marguerite Rutledge Address: [address] [place] [phone] Relation: Spouse Patient or advertising representative requests care coordination reach out to family or caregiver listed above regarding discharge planning and at time of discharge? No Patient/Family provided with list of resources? No Preferred Provider / High Quality Network List given?: No Reason for provider choice: Insurance, Pt. choice - Pt. choice Equipment at Home: Chair-Shower;Hand Held Shower;Toilet Seat - Raised;Walker-2 Wheeled;Walker-Standard Aircraft Body Repairer Referral: No Will continue to follow. For any questions or needs please contact: Company Driver Name/Phone number: Deena Kline RN, BSN, MSN, CM / [phone] D INSTALLATION TECHNICIAN * Shayne Stoner [facility] - 09/24/2023 10:07 PM CST Images from [...] levels at steady state. Shayne Stoner RPH D INSTALLATION TECHNICIAN * Germain Donovan MD - 09/24/2023 9:44 PM CST Orthopedic Surgery Postoperative Check Taylor Rutledge, 58 year old, male : 1965 CSN: [id number] Admitted: 09/24/2023 11:47 AM Subjective Nausea/vomiting: none [...] 09/24/23 1729 98.6 ??F (37 ??C) 78 Automatic Physical Exam General appearance: Awake, cooperative, [...] concerns Germain Donovan MD 09/24/2023 9:44 PM D INSTALLATION TECHNICIAN * Libia Lamas RN - 09/24/2023 7:53 [...] found in the flowsheet documentation) Outcome: Progressing D INSTALLATION TECHNICIAN documented in this encounter H&P Notes * Sarah Parsons, BLUE [employer]INTS TRIMMER-PREPRESS SPECIALIST - 09/24/2023 3:59 PM CST [employer] [...] ??? Sleep apnea uses cpap ??? Stroke ([facility]) 2021 balance residual ??? Type 2 diabetes mellitus without complications ([facility]) Past Surgical History: Procedure Laterality Date ??? [...] No Stress: No Stress Concern Present (12/14/2022) [employer] [place] [employer] - Occupational Stress Questionnaire [...] MG/0.5ML injection ??? ergocalciferol (Drisdol) 1.25 MG (33898 UT) capsule Take 1 (one) capsule by [...] Labs Component Name 09/24/23 1058 12/16/22 0545 12/15/228 12/15/22 0644 12/14/22 1933 12/09/22 0311 12/08/22 [...] , HDL , LDLCALC in the last 34443 hours. No results for input(s): AMYLASE in the last 81045 hours. Recent Labs Component Name 12/08/22 1329 12/08/22 1232 VRN7BWB 41.6 40.5 PO2ART 300* 297* [id number] 100 100 BEART -2 -2 No results for input(s): BNP in the last 35604 hours. No results for input(s): CDIFFTOXINAB in the last 22687 hours. No results for input(s): CK in the last 43266 hours. No results for input(s): CKMB in the last 34736 hours. No results for input(s): CKMBINTERP in the last 85819 hours. Recent Labs Component Name 12/14/22 1933 07/14/14 1359 INR 1.1 1.2 Recent Labs Component Name 12/14/22 1933 07/14/14 1359 PT 13.7 15.0* Recent Labs Component Name 07/14/14 1359 PTT 24.7 No results for input(s): TROPONIN in the last 78094 hours. No results for input(s): TSH in the last 39936 hours. No results for input(s): PHENYTOIN in the last 37197 hours. No results for input(s): DIGOXIN in the last 64436 hours. No results for input(s): MAGMGDL in the last 98376 hours. Recent Labs Component Name 11/27/22 0950 COLORUA Yellow SPECGRAVUA 1.019 PHUA 5.0 PROTEINUA Negative BLOODUA Negative LEUKOCYTEUA Negative NITRITEUA Negative GLUCOSEUA Negative KETONEUA Negative BILIRUBINUA Negative UROBILINUA Negative Recent Labs Component Name 12/14/223 11/27/22 0950 07/15/14 0015 HGBA1C 6.0* 5.6 6.0 ASSESSMENT/PLAN Right hip pain: Orthopedic surgery consulted Plan for OR today NPO Pain management Holding anticoagulation at this time Hypertension CVA history: Continue statin Holding aspirin, Plavix Diabetes: Sliding scale insulin Diabetic diet Mood disorder: Continue Wellbutrin, Zoloft Hypertension: Continue Norvasc, Coreg GERD: Protonix Prophylaxis: SCDs cc [facility] Patient Diagnoses Present at the Time of Admission Obesity Discussed with Dr Jones Further recommendations pending the course of hospitalization for this patient. Please be advised that this note was created using voice recognition software and there is the potential for misinterpretation. Sarah Parsons APRN-PREPRESS SPECIALIST 09/24/2023 4:25 PM D INSTALLATION TECHNICIAN documented in this encounter Consult Notes * [...] None Angelika Ponce RN 10/03/2023 3:22 PM D INSTALLATION TECHNICIAN * Sophia Hagan LPN - 10/03/2023 9:51 AM CST Referral not opened, as this patient lives out of [facility]'s service area. Sophia Hagan LPN Referral Liaison [facility]. [phone] D INSTALLATION TECHNICIAN * Leelee Sapp MSW - 10/03/2023 9:20 AM CSTAssociated Order(s): IP CONSULT TO SURPLUS PROPERTY DISPOSAL AGENT SW acknowledges referral. There are no SW needs determined at this time and will sign off. Please re-consult when needs are identified. DEEPALI Moreira 10/03/2023 9:22 AM [phone] D INSTALLATION TECHNICIAN * Ashish Barnett MD - 09/25/2023 10:12 [...] of right hip arthroplasty in 06/2022 at [facility] in [place], [place]. Due to infectionhe is s/p removal or arthroplasty in 08/30/22 at [facility]; received IV antibiotics x 6 weeks [...] ??? Sleep apnea uses cpap ??? Stroke ([facility]) 2021 balance residual ??? Type 2 diabetes mellitus without complications ([facility]) Past Surgical History: Procedure Laterality Date ??? [...] ?? Followed by ?? *Hold/Avoid Medication, Other, 0800 and 1999 ?? 0.9% NaCl injection 3 [...] results for input(s): CDIFFTOXINAB in the last 76941 hours. Recent Labs Component Name 09/24/23 1058 SEDRATE 50* Recent Labs Component Name 09/24/23 1058 04/04/23 0950 CRP 5.64* 0.33 No results for input(s): CK in the last 63215 hours. .No results for input(s): VANCOTROUGH , VANCOPEAK , VANCSERIES in the last 39869 hours. Invalid input(s): VANCORAND Recent Labs Component Name 09/25/23 0141 12/14/22193211/27/22 [...] infection -06/2022: s/p hip arthroplasty for arthritis ([place]) -08/30/22: s/p hardware removal due to infection, IV abx x 6wks ([place]) -12/08/22: s/p revision arthroplasty, fixation of [...] bcx neg x 48h / OPAT via [facility] care as he [place] very far away -anticipate likely chronic suppression with po antibiotic upon completion of 6 weeks IV (given retention of some hardware) -pending finalized OR cultures / work up as above Discussed with patient, care team Ashish Barnett MD D INSTALLATION TECHNICIAN * Torrey Lafleur MD - 09/24/2023 2:45 PM CST Orthopaedic Surgery Consult Note Taylor Rutledge [id number] Date of service: 09/24/2023 Chief Complaint: Chief Complaint Patient presents with ??? Injury Leg Right leg pain. Hx of hip and knee surgery Subjective: Taylor Rutledge is a 58 year old male who presents to [facility] with complaints of acute on chronic [...] ??? Sleep apnea uses cpap ??? Stroke ([facility]) 2021 balance residual ??? Type 2 diabetes mellitus without complications [place] Past Surgical History: Procedure Laterality Date ??? [...] MG/0.5ML injection ??? ergocalciferol (Drisdol) 1.25 MG (62768 UT) capsule ??? ferrous sulfate 325 (65 [...] MG/0.5ML injection ??? ergocalciferol (Drisdol) 1.25 MG (74489 UT) capsule Take 1 (one) capsule by [...] Diagnosis Date ??? Aortic stenosis mod-sev on 2023 echo ??? CAD (coronary artery disease) ??? High blood pressure ??? LVH (left ventricular hypertrophy) ??? Mixed hyperlipidemia ??? Restless leg syndrome ??? Sleep apnea uses cpap ??? Stroke ([facility]) 2021 balance residual ??? Type 2 diabetes mellitus without complications [place] Past Surgical History: Procedure Laterality Date ??? [...] MG/0.5ML injection ??? ergocalciferol (Drisdol) 1.25 MG (80525 UT) capsule Take 1 (one) capsule by [...] ??? Sleep apnea uses cpap ??? Stroke ([facility]) 2021 balance residual ??? Type 2 diabetes mellitus without complications ([facility]) Past Surgical History: Procedure Laterality Date ??? [...] dictation was performed with the use of [employer] voice recognition and errors with transcriptionmay occur. Please see resident's note for further details. Torrey Lafleur MD D INSTALLATION TECHNICIAN documented in this encounter OR Notes * [...] Role: * Torrey Lafleur MD - Primary Plan Checker(s): Jose Villa MD - resident Anesthesia Type: [...] 0053 Wound Vac Output (ml) 450 ml 09/29/235 Negative Pressure Wound Therapy Right Hip (Active) Additional Treatment PREVENA WOUND VAC 10/02/23 1536 Specimen(s): * No specimens in log * Implant(s): Implant Name Type Inv. Item Serial No. Activity Leader Lot No. LRB No. Used Action liner [employer] [id number] Right 1 Implanted femoral head [employer] [id number] Right 1 Implanted head sleeve [employer] [id number] Right 1 Implanted Jose Villa MD D INSTALLATION TECHNICIAN * Operative - Torrey Lafleur MD - 10/02/2023 2:29 PM CST DATE OF SURGERY: 10/02/2023 Taylor Rutledge [id number] PREOP DX: Infected right total hip arthroplasty [...] line wound VAC for wound at risk ACUTE CARE NURSE PRACTITIONER(S): Jose Villa MD ANESTHESIA: GET INDICATIONS FOR [...] Implant Name Type Inv. Item Serial No. Activity Leader Lot No. LRB No. Used Action liner [employer] [id number] Right 1 Implanted femoral head [employer] [id number] Right 1 Implanted head sleeve [employer] [id number] Right 1 Implanted COUNTS: Sponge and needle counts were correct at the end of procedure and I was present for the entire case. This dictation was performed with the use of [email or web address] voice recognition and errors with transcriptionmay occur. Torrey Lafleur MD D INSTALLATION TECHNICIAN * Brief Op Note - Brigido Lundberg [...] Role: * Torrey Lafleur MD - Primary Plan Checker(s): Brigido Lundberg MD Tarr, Tony, NP Anesthesia [...] Implant Name Type Inv. Item Serial No. Activity Leader Lot No. LRB No. Used Action Cmnt Bone Rally 40Gm Hvisc Sprmnt Grn Cmnt Bone Rally 40Gm Hvisc Sprmnt Grn [employer] [id number] Right 1 Implanted Brigido Lundberg MD D INSTALLATION TECHNICIAN * Operative - Torrey Lafleur MD - 09/27/2023 11:17 AM CST DATE OF SURGERY: 09/27/2023 Taylor Rutledge [id number] PREOP DX: Infected right total hip arthroplasty [...] application right hip SURGEON: Omar Lafleur MD ACUTE CARE NURSE PRACTITIONER(S): Brigido Lundberg MD and Von Dodson NP was the neurosurgical physician assistant and assisted with surgical retraction, limb manipulation, hip reduction, and wound closure as there was no surgicalfirst collections assistant or resident available for the surgical [...] Implant Name Type Inv. Item Serial No. Activity Leader Lot No. LRB No. Used Action Cmnt Bone Rally 40Gm Hvisc Sprmnt Grn Cmnt Bone Rally 40Gm Hvisc Sprmnt Grn [employer] [id number] Right 1 Implanted COUNTS: Sponge and needle counts were correct at the end of procedure and I was present for the entire case. This dictation was performed with the use of [employer] voice recognition and errors with transcriptionmay occur. Torrey Lafleur MD D INSTALLATION TECHNICIAN * Brief Op Note - Germain Donovan [...] Role: * Torrey Lafleur MD - Primary Plan Checker(s): Metalizer Field Operation: Felipe Haque RN Scrub Person: Lea Mills [...] Implant Name Type Inv. Item Serial No. Activity Leader Lot No. LRB No. Used Action Cmnt Bone Rally 40Gm Hvisc Sprmnt Grn Cmnt Bone Rally 40Gm Hvisc Sprmnt Grn [employer] [id number] Right 1 Implanted Germain Donovan MD D INSTALLATION TECHNICIAN * Operative - Torrey Lafleur MD - 09/24/2023 8:49 PM CST DATE OF SURGERY: 09/24/2023 Taylor Rutledge [id number] PREOP DX: Painful right total hip arthroplasty [...] application right hip SURGEON: Omar Lafleur MD ACUTE CARE NURSE PRACTITIONER(S): Dustin Donovan MD ANESTHESIA: GET INDICATIONS FOR [...] None ESTIMATED BLOOD LOSS: 300cc DISPOSITION: TO in stable condition POSTOP PLAN: Pt will be up in the AM WBAT and will be maintained on posterior hip precautions with physical therapy and will return later in the week for repeat irrigation and debridement on . IMPLANTS - 20 antibiotic beads were placed on a 5. Ethibond suture Implant Name Type Inv. Item Serial No. Activity Leader Lot No. LRB No. Used Action Cmnt Bone Rally 40Gm Hvisc Sprmnt Grn Cmnt Bone Rally 40Gm Hvisc Sprmnt Grn [employer] [id number] Right 1 Implanted COUNTS: Sponge and needle counts were correct at the end of procedure and I was present for the entire case. This dictation was performed with the use of [employer] voice recognition and errors with transcriptionmay occur. Torrey Lafleur MD D INSTALLATION TECHNICIAN documented in this encounter ED Notes * Angelica Galeana RN - 09/24/2023 3:59 PM CST Report given to RN on 2E. RN will transport patient to . D INSTALLATION TECHNICIAN * Guille Aguilera RN - 09/24/2023 2:25 [...] No signs of distress. Pt wheelchaired to [place] by transporter at this time. D INSTALLATION TECHNICIAN * Drew Lerma, DO - 09/24/2023 1:47 PM CST Taylor Rutledge [id number] [facility] History Chief Complaint Patient presents [...] ??? Sleep apnea uses cpap ??? Stroke ([facility]) 2021 balance residual ??? Type 2 diabetes mellitus without complications ([facility]) Past Surgical History: Procedure Laterality Date ??? [...] No Stress: No Stress Concern Present (12/14/2022) [place] [place] [employer] - Occupational Stress Questionnaire [...] MG/0.5ML injection ??? ergocalciferol (Drisdol) 1.25 MG (67406 UT) capsule Take 1 (one) capsule by [...] VAS RIGHT [place] [address] Lower Extremity Venous Ultrasound Report Pat.Name: TAYLOR RUTLEDGE Mychal Greer.ID: [id number] .Date: 09/24/2023 Refer.MD: Drew Lerma Exam Time: 3:44:00 PM Study Type:LE Venous Age: 9 1965,58Y Sex: MALE Sonogrphr: Cheryl Gaines RVT Pat. Stat.:Inpatient ICD - 9: M25.551 Reason for Study: Pain -Leg, right Procedures: Lower Extremity Venous - Right Race: 1 Visit ID: [id number] ++++++++++++++++++++++++++++++++++++ SUMMARY: ++++++++++++++++++++++++++++++++++++ Technically difficult study. No [...] DATE/TIME OF EXAM: 09/24/2023 11:24 AM, LOCATION [facility] INDICATION: M25.551: Pain in right hip Right [...] DATE/TIME OF EXAM: 09/24/2023 11:23 AM, LOCATION [facility] INDICATION: M25.551: Pain in right hip AP [...] mL ??? 0.9% NaCl IV flush bag D INSTALLATION TECHNICIAN * Kip Storey PA - 09/24/2023 10:11 AM CST Taylor Rutledge [id number] [facility] History Chief Complaint Patient presents [...] ??? Sleep apnea uses cpap ??? Stroke ([facility]) 2021 balance residual ??? Type 2 diabetes mellitus without complications ([facility]) Past Surgical History: Procedure Laterality Date ??? [...] No Stress: No Stress Concern Present (12/14/2022) [place] [employer] - Occupational Stress Questionnaire [...] MG/0.5ML injection ??? ergocalciferol (Drisdol) 1.25 MG (26292 UT) capsule Take 1 (one) capsule by [...] mg ??? ondansetron (Zofran) injection 4 mg D INSTALLATION TECHNICIAN documented in this encounter Miscellaneous Notes * [...] A PERMANENT PART OF THE MEDICAL RECORD. D INSTALLATION TECHNICIAN documented in this encounter Plan of Treatment Upcoming Encounters Date Type Department Care Team (Late st Contact Info) Description 01/20/2025 10:00 AM CDT Office Visit [facility] - Orthopedic Surgery [address] [place] [phone] Torrey Lafleur MD [address] [facility] [address] [place] [address] Scheduled Referrals Name Type Priority Associated Diagnoses Orde r Schedule Referral to Home Health Care Outpatient Referral Routine Infection of prosthetic joint, initial encounter (HCC) Ordered: 10/03/2023 documented as of this encounter Procedures Procedure Name Priority Date/Time Associated Diagnosis Comments CARDIAC RHYTHM STRIP ORDER 10/06/2023 12:03 PM FIELD INSTALLATION TECHNICIAN GLUCOSE - POINT OF CARE Routine 10/04/2023 7:54 AM FIELD INSTALLATION TECHNICIAN GLUCOSE - POINT OF CARE Routine 10/04/2023 12:00 AM FIELD INSTALLATION TECHNICIAN GLUCOSE - POINT OF CARE Routine 10/03/2023 8:21 PM FIELD INSTALLATION TECHNICIAN GLUCOSE - POINT OF CARE Routine 10/03/2023 4:51 PM FIELD INSTALLATION TECHNICIAN GLUCOSE - POINT OF CARE Routine 10/03/2023 11:42 AM FIELD INSTALLATION TECHNICIAN HGB HCT PANEL AM Draw 10/03/2023 8:51 AM FIELD INSTALLATION TECHNICIAN OT EVAL AND TREAT Routine 10/03/2023 8:2 6 AM FIELD INSTALLATION TECHNICIAN PT EVAL AND TREAT Routine 10/03/2023 8:2 6 AM FIELD INSTALLATION TECHNICIAN GLUCOSE - POINT OF CARE Routine 10/03/2023 7:51 AM FIELD INSTALLATION TECHNICIAN GLUCOSE - POINT OF CARE Routine 10/02/2023 8:56 PM FIELD INSTALLATION TECHNICIAN GLUCOSE - POINT OF CARE Routine 10/02/2023 6:05 PM FIELD INSTALLATION TECHNICIAN GLUCOSE - POINT OF CARE Routine 10/02/2023 4:25 PM FIELD INSTALLATION TECHNICIAN AL INNA SUBQ TISSUE 20 SQ CM/< 10/02/2023 1:04 PM FIELD INSTALLATION TECHNICIAN Diagnosis unknown Special Needs NEEDS REGULAR O.R. TABLE, WOUND VAC SUPPLIES KEPT IN O.R. SUPPLY ROOM, WOUND VAC MACHINE NEEDS TO BE SENT FROM THE PATIENT'S ROOM TO SURGERY--09/26 KW GLUCOSE - POINT OF CARE Routine 10/02/2023 8:06 AM FIELD INSTALLATION TECHNICIAN GLUCOSE - POINT OF CARE Routine 10/01/2023 8:07 PM FIELD INSTALLATION TECHNICIAN GLUCOSE - POINT OF CARE Routine 10/01/2023 4:33 PM FIELD INSTALLATION TECHNICIAN GLUCOSE - POINT OF CARE Routine 10/01/2023 11:23 AM FIELD INSTALLATION TECHNICIAN GLUCOSE - POINT OF CARE Routine 10/01/2023 7:32 AM FIELD INSTALLATION TECHNICIAN GLUCOSE - POINT OF CARE Routine 09/30/2023 8:46 PM FIELD INSTALLATION TECHNICIAN GLUCOSE - POINT OF CARE Routine 09/30/2023 3:51 PM FIELD INSTALLATION TECHNICIAN GLUCOSE - POINT OF CARE Routine 09/30/2023 11:21 AM FIELD INSTALLATION TECHNICIAN GLUCOSE - POINT OF CARE Routine 09/30/2023 7:36 AM FIELD INSTALLATION TECHNICIAN HEPATIC FUNCTION PANEL AM Draw 09/30/2023 3:49 AM FIELD INSTALLATION TECHNICIAN GLUCOSE - POINT OF CARE Routine 09/29/2023 8:02 PM FIELD INSTALLATION TECHNICIAN GLUCOSE - POINT OF CARE Routine 09/29/2023 3:23 PM FIELD INSTALLATION TECHNICIAN GLUCOSE - POINT OF CARE Routine 09/29/2023 11:27 AM FIELD INSTALLATION TECHNICIAN GLUCOSE - POINT OF CARE Routine 09/29/2023 7:41 AM FIELD INSTALLATION TECHNICIAN GLUCOSE - POINT OF CARE Routine 09/28/2023 7:47 PM FIELD INSTALLATION TECHNICIAN GLUCOSE - POINT OF CARE Routine 09/28/2023 4:31 PM FIELD INSTALLATION TECHNICIAN GLUCOSE - POINT OF CARE Routine 09/28/2023 11:06 AM FIELD INSTALLATION TECHNICIAN GLUCOSE - POINT OF CARE Routine 09/28/2023 7:44 AM FIELD INSTALLATION TECHNICIAN GLUCOSE - POINT OF CARE Routine 09/27/2023 10:05 PM FIELD INSTALLATION TECHNICIAN GLUCOSE - POINT OF CARE Routine 09/27/2023 4:08 PM FIELD INSTALLATION TECHNICIAN GLUCOSE - POINT OF CARE Routine 09/27/2023 12:20 PM FIELD INSTALLATION TECHNICIAN CULTURE WOUND+GRAM STAIN STAT 09/27/2023 11:21 AM FIELD INSTALLATION TECHNICIAN Diagnosis unknown CULTURE ANAEROBE STAT 09/27/2023 11:2 1 AM FIELD INSTALLATION TECHNICIAN Diagnosis unknown GLUCOSE - POINT OF CARE Routine 09/27/2023 7:50 AM FIELD INSTALLATION TECHNICIAN GLUCOSE - POINT OF CARE Routine 09/26/2023 8:15 PM FIELD INSTALLATION TECHNICIAN GLUCOSE - POINT OF CARE Routine 09/26/2023 4:31 PM FIELD INSTALLATION TECHNICIAN GLUCOSE - POINT OF CARE Routine 09/26/2023 11:40 AM FIELD INSTALLATION TECHNICIAN VANCOMYCIN LEVEL TROUGH STAT 09/26/2023 11:00 AM FIELD INSTALLATION TECHNICIAN GLUCOSE - POINT OF CARE Routine 09/26/2023 7:38 AM FIELD INSTALLATION TECHNICIAN VANCOMYCIN LEVEL PEAK STAT 09/26/2023 4:55 AM FIELD INSTALLATION TECHNICIAN GLUCOSE - POINT OF CARE Routine 09/25/2023 9:55 PM FIELD INSTALLATION TECHNICIAN GLUCOSE - POINT OF CARE Routine 09/25/2023 4:17 PM FIELD INSTALLATION TECHNICIAN GLUCOSE - POINT OF CARE Routine 09/25/2023 12:00 PM FIELD INSTALLATION TECHNICIAN CULTURE BLOOD Timed 09/25/2023 10:45 AM FIELD INSTALLATION TECHNICIAN Infection of prosthetic joint, initial encounter (HCC) CULTURE BLOOD Timed 09/25/2023 10:41 AM FIELD INSTALLATION TECHNICIAN Infection of prosthetic joint, initial encounter (HCC) GLUCOSE - POINT OF CARE Routine 09/25/2023 7:50 AM FIELD INSTALLATION TECHNICIAN HEMOGLOBIN A1C Routine 09/25/2023 1:41 AM FIELD INSTALLATION TECHNICIAN CBC W/O DIFFERENTIAL Routine 09/25/2023 1:41 AM FIELD INSTALLATION TECHNICIAN BASIC METABOLIC PANEL (CALCIUM TOTAL) Routine 09/25/2023 1:41 AM FIELD INSTALLATION TECHNICIAN GLUCOSE - POINT OF CARE Routine 09/24/2023 10:51 PM FIELD INSTALLATION TECHNICIAN GLUCOSE - POINT OF CARE Routine 09/24/2023 9:50 PM FIELD INSTALLATION TECHNICIAN CULTURE FUNGUS OTHER+FUNGUS SMEAR STAT 09/24/2023 9:01 PM FIELD INSTALLATION TECHNICIAN Diagnosis unknown CULTURE TISSUE+GRAM STAIN STAT 09/24/2023 9:01 PM FIELD INSTALLATION TECHNICIAN Diagnosis unknown CULTURE AFB+SMEAR STAT 09/24/2023 9: 01 PM FIELD INSTALLATION TECHNICIAN Diagnosis unknown CULTURE ANAEROBE STAT 09/24/2023 9:01 PM FIELD INSTALLATION TECHNICIAN Diagnosis unknown CULTURE FUNGUS OTHER+FUNGUS SMEAR STAT 09/24/2023 8:58 PM FIELD INSTALLATION TECHNICIAN Diagnosis unknown CULTURE TISSUE+GRAM STAIN STAT 09/24/2023 8:58 PM FIELD INSTALLATION TECHNICIAN Diagnosis unknown CULTURE AFB+SMEAR STAT 09/24/2023 8:5 8 PM FIELD INSTALLATION TECHNICIAN Diagnosis unknown CULTURE ANAEROBE STAT 09/24/2023 8:58 PM FIELD INSTALLATION TECHNICIAN Diagnosis unknown FL GUIDED NEEDLE PLACEMENT STAT 09/24/2023 8:45 PM FIELD INSTALLATION TECHNICIAN Pain of right hip PATHOLOGY SMEAR BODY FLUID Add on 09/24/2023 8:28 PM FIELD INSTALLATION TECHNICIAN Diagnosis unknown DIFFERENTIAL MANUAL FLUID Add on 09/24/2023 8:28 PM FIELD INSTALLATION TECHNICIAN Diagnosis unknown CRYSTAL IDENTIFICATION FLUID STAT 09/24/2023 8:28 PM FIELD INSTALLATION TECHNICIAN Diagnosis unknown CELL COUNT W DIFFERENTIAL FLUID STAT 09/24/2023 8:28 PM FIELD INSTALLATION TECHNICIAN Diagnosis unknown CULTURE FUNGUS OTHER+FUNGUS SMEAR STAT 09/24/2023 8:27 PM FIELD INSTALLATION TECHNICIAN Diagnosis unknown CULTURE FLUID+GRAM STAIN STAT 09/24/2023 8:27 PM FIELD INSTALLATION TECHNICIAN Diagnosis unknown CULTURE AFB+SMEAR STAT 09/24/2023 8:2 7 PM FIELD INSTALLATION TECHNICIAN Diagnosis unknown CULTURE ANAEROBE STAT 09/24/2023 8:27 PM FIELD INSTALLATION TECHNICIAN Diagnosis unknown GLUCOSE - POINT OF CARE Routine 09/24/2023 6:06 PM FIELD INSTALLATION TECHNICIAN OT EVAL AND TREAT Routine 09/24/2023 4:2 6 PM FIELD INSTALLATION TECHNICIAN PT EVAL AND TREAT Routine 09/24/2023 4:2 6 PM FIELD INSTALLATION TECHNICIAN CT LOWER EXT RIGHT W CONTRAST STAT 09/24/2023 2:41 PM FIELD INSTALLATION TECHNICIAN Pain of right hip VAS RIGHT VENOUS DUPLEX LE STAT 09/24/2023 1:37 PM FIELD INSTALLATION TECHNICIAN Pain of right hip XR FEMUR RIGHT 2VW STAT 09/24/2023 11 :23 AM FIELD INSTALLATION TECHNICIAN Pain of right hip XR PELVIS 1 OR 2VW STAT 09/24/2023 11 :23 AM FIELD INSTALLATION TECHNICIAN Pain of right hip C-REACTIVE PROTEIN STAT 09/24/2023 10 :58 AM FIELD INSTALLATION TECHNICIAN ERYTHROCYTE SEDIMENTATION RATE STAT 09/24/2023 10:58 AM FIELD INSTALLATION TECHNICIAN DIFFERENTIAL MANUAL STAT 09/24/2023 1 0:58 AM FIELD INSTALLATION TECHNICIAN CBC W AUTO DIFFERENTIAL STAT 09/24/2023 10:58 AM FIELD INSTALLATION TECHNICIAN BASIC METABOLIC PANEL (CALCIUM TOTAL) STAT 09/24/2023 10:58 AM FIELD INSTALLATION TECHNICIAN documented in this encounter Results * CARDIAC RHYTHM STRIP ORDER (10/06/2023 12:03 PM FIELD INSTALLATION TECHNICIAN) Narrative 10/06/2023 12:03 PM FIELD INSTALLATION TECHNICIAN Ordered by an unspecified provider. Scanned Document CARDIAC SERVICES ORD ERABLES * (ABNORMAL) GLUCOSE - POINT OF CARE (10/04/2023 7:54 AM FIELD INSTALLATION TECHNICIAN) Glucose WB/POC 119(H) 70 - 106 mg/dL 10/04/2023 11:29 AM FIELD INSTALLATION TECHNICIAN [facility] Specimen Type Cap Fingerstick 2023 11:29 AM FIELD INSTALLATION TECHNICIAN [facility] Blood BLOOD SPECIMEN / Unknown 10/04/2023 7:54 AM FIELD INSTALLATION TECHNICIAN 10/04/2023 11:29 AM FIELD INSTALLATION TECHNICIAN Praveen Kaufman MD LAB - POINT OF CARE ORDERABLES Performing Organization Address [facility] Co de Phone Number [facility] [address] [place] [address] [phone] * (ABNORMAL) GLUCOSE - POINT OF CARE (10/04/2023 12:00 AM FIELD INSTALLATION TECHNICIAN) Glucose WB/POC 181(H) 70 - 106 mg/dL 10/04/2023 12:10 AM FIELD INSTALLATION TECHNICIAN [facility] Specimen Type Cap Fingerstick 2023 12:10 AM FIELD INSTALLATION TECHNICIAN [facility] Blood BLOOD SPECIMEN / Unknown 10/04/2023 12:00 AM FIELD INSTALLATION TECHNICIAN 10/04/2023 12:10 AM FIELD INSTALLATION TECHNICIAN Praveen Kaufman MD LAB - POINT OF CARE ORDERABLES [facility] [address] [place] [address] [phone] * (ABNORMAL) GLUCOSE - POINT OF CARE (10/03/2023 8:21 PM FIELD INSTALLATION TECHNICIAN) Glucose WB/POC 141(H) 70 - 106 mg/dL 10/03/2023 8:30 PM FIELD INSTALLATION TECHNICIAN [facility] Specimen Type Cap Fingerstick 2023 8:30 PM FIELD INSTALLATION TECHNICIAN [facility] Blood BLOOD SPECIMEN / Unknown 10/03/2023 8:21 PM FIELD INSTALLATION TECHNICIAN 10/03/2023 8:30 PM FIELD INSTALLATION TECHNICIAN Praveen Kaufman MD LAB - POINT OF CARE ORDERABLES Performing Organization Address [facility] Co de Phone Number [facility] [address] [place] [address] [phone] * (ABNORMAL) GLUCOSE - POINT OF CARE (10/03/2023 4:51 PM FIELD INSTALLATION TECHNICIAN) Glucose WB/POC 134(H) 70 - 106 mg/dL 10/03/2023 5:01 PM FIELD INSTALLATION TECHNICIAN [facility] Specimen Type Cap Fingerstick 2023 5:01 PM FIELD INSTALLATION TECHNICIAN [facility] Blood BLOOD SPECIMEN / Unknown 10/03/2023 4:51 PM FIELD INSTALLATION TECHNICIAN 10/03/2023 5:01 PM FIELD INSTALLATION TECHNICIAN Praveen Kaufman MD LAB - POINT OF CARE ORDERABLES Performing Organization Address [facility] Co de Phone Number [facility] [address] [place] [address] [phone] * (ABNORMAL) GLUCOSE - POINT OF CARE (10/03/2023 11:42 AM FIELD INSTALLATION TECHNICIAN) Glucose WB/POC 136(H) 70 - 106 mg/dL 10/03/2023 11:51 AM FIELD INSTALLATION TECHNICIAN [facility] Specimen Type Cap Fingerstick 2023 11:51 AM FIELD INSTALLATION TECHNICIAN [facility] Blood BLOOD SPECIMEN / Unknown 10/03/2023 11:42 AM FIELD INSTALLATION TECHNICIAN 10/03/2023 11:51 AM FIELD INSTALLATION TECHNICIAN Praveen Kaufman MD LAB - POINT OF CARE ORDERABLES Performing Organization Address [facility] Co de Phone Number [facility] [address] [place] [address] [phone] * (ABNORMAL) HGB HCT PANEL (10/03/2023 8:51 AM FIELD INSTALLATION TECHNICIAN) Hemoglobin 8.4(L) 13.3 - 17.5 g/dL 10/03/2023 9:29 AM FIELD INSTALLATION TECHNICIAN [facility] Hematocrit 26.7(L) 38.7 - 51.1 % 10/03/2023 9:29 AM FIELD INSTALLATION TECHNICIAN [facility] Blood BLOOD SPECIMEN / Unknown Lab Venipuncture / Unknown 10/03/2023 8:51 AM FIELD INSTALLATION TECHNICIAN 10/03/2023 9:20 AM FIELD INSTALLATION TECHNICIAN Praveen Kaufman MD LAB - HEMATOLOGY ORD ERABLES Performing Organization Address City/[facility]/ZIP Co de Phone Number [facility] [address] [place] [address] [phone] * (ABNORMAL) GLUCOSE - POINT OF CARE (10/03/2023 7:51 AM FIELD INSTALLATION TECHNICIAN) Glucose WB/POC 135(H) 70 - 106 mg/dL 10/03/2023 8:13 AM FIELD INSTALLATION TECHNICIAN [facility] Specimen Type Cap Fingerstick 2023 8:13 AM FIELD INSTALLATION TECHNICIAN [facility] Blood BLOOD SPECIMEN / Unknown 10/03/2023 7:51 AM FIELD INSTALLATION TECHNICIAN 10/03/2023 8:13 AM FIELD INSTALLATION TECHNICIAN Praveen Kaufman MD LAB - POINT OF CARE ORDERABLES Performing Organization Address [facility] Co de Phone Number [facility] [address] [place] [address] [phone] * (ABNORMAL) GLUCOSE - POINT OF CARE (10/02/2023 8:56 PM FIELD INSTALLATION TECHNICIAN) Glucose WB/POC 274(H) 70 - 106 mg/dL 10/03/2023 12:18 AM FIELD INSTALLATION TECHNICIAN [facility] Specimen Type Cap Fingerstick 2023 12:18 AM FIELD INSTALLATION TECHNICIAN [facility] Blood BLOOD SPECIMEN / Unknown 10/02/2023 8:56 PM FIELD INSTALLATION TECHNICIAN 10/03/2023 12:18 AM FIELD INSTALLATION TECHNICIAN Praveen Kaufman MD LAB - POINT OF CARE ORDERABLES Performing Organization Address City/[facility]/ZIP Co de Phone Number [facility] [address] [place] [address] [phone] * (ABNORMAL) GLUCOSE - POINT OF CARE (10/02/2023 6:05 PM FIELD INSTALLATION TECHNICIAN) Glucose WB/POC 165(H) 70 - 106 mg/dL 10/02/2023 6:11 PM FIELD INSTALLATION TECHNICIAN [facility] Specimen Type Cap Fingerstick 2023 6:11 PM FIELD INSTALLATION TECHNICIAN [facility] Blood BLOOD SPECIMEN / Unknown 10/02/2023 6:05 PM FIELD INSTALLATION TECHNICIAN 10/02/2023 6:11 PM FIELD INSTALLATION TECHNICIAN Praveen Kaufman MD LAB - POINT OF CARE ORDERABLES Performing Organization Address City/[facility]/ZIP Co de Phone Number [facility] [address] [place] [address] * (ABNORMAL) GLUCOSE - POINT OF CARE (10/02/2023 4:25 PM FIELD INSTALLATION TECHNICIAN) Glucose WB/POC 150(H) 70 - 106 mg/dL 10/03/2023 7:28 AM FIELD INSTALLATION TECHNICIAN [facility] Specimen Type Cap Fingerstick 2023 7:28 AM FIELD INSTALLATION TECHNICIAN [facility] Blood BLOOD SPECIMEN / Unknown 10/02/2023 4:25 PM FIELD INSTALLATION TECHNICIAN 10/03/2023 7:28 AM FIELD INSTALLATION TECHNICIAN Praveen Kaufman MD LAB - POINT OF CARE ORDERABLES Performing Organization Address [facility]/ZIP Co de Phone Number [facility] [address] [place] [address] [phone] * GLUCOSE - POINT OF CARE (10/02/2023 8:06 AM FIELD INSTALLATION TECHNICIAN) Glucose WB/POC 104 70 - 106 mg/dL 10/02/2023 8:12 AM FIELD INSTALLATION TECHNICIAN [facility] Specimen Type Cap Fingerstick 2023 8:12 AM FIELD INSTALLATION TECHNICIAN [facility] Blood BLOOD SPECIMEN / Unknown 10/02/2023 8:06 AM FIELD INSTALLATION TECHNICIAN 10/02/2023 8:12 AM FIELD INSTALLATION TECHNICIAN Praveen Kaufman MD LAB - POINT OF CARE ORDERABLES [facility] [address] [place] [address] [phone] * (ABNORMAL) GLUCOSE - POINT OF CARE (10/01/2023 8:07 PM FIELD INSTALLATION TECHNICIAN) Glucose WB/POC 205(H) 70 - 106 mg/dL 10/01/2023 8:13 PM FIELD INSTALLATION TECHNICIAN [facility] Specimen Type Cap Fingerstick 2023 8:13 PM FIELD INSTALLATION TECHNICIAN [facility] Blood BLOOD SPECIMEN / Unknown 10/01/2023 8:07 PM FIELD INSTALLATION TECHNICIAN 10/01/2023 8:13 PM FIELD INSTALLATION TECHNICIAN Praveen Kaufman MD LAB - POINT OF CARE ORDERABLES [facility] [address] [place] [address] * (ABNORMAL) GLUCOSE - POINT OF CARE (10/01/2023 4:33 PM FIELD INSTALLATION TECHNICIAN) Glucose WB/POC 130(H) 70 - 106 mg/dL 10/01/2023 4:47 PM FIELD INSTALLATION TECHNICIAN [facility] Specimen Type Arterial 10/01/2023 4:47 PM FIELD INSTALLATION TECHNICIAN [facility] Blood BLOOD SPECIMEN / Unknown 10/01/2023 4:33 PM FIELD INSTALLATION TECHNICIAN 10/01/2023 4:47 PM FIELD INSTALLATION TECHNICIAN Praveen Kaufman MD LAB - POINT OF CARE ORDERABLES [facility] [address] [place] [address] * (ABNORMAL) GLUCOSE - POINT OF CARE (10/01/2023 11:23 AM FIELD INSTALLATION TECHNICIAN) Glucose WB/POC 198(H) 70 - 106 mg/dL 10/01/2023 11:33 AM FIELD INSTALLATION TECHNICIAN [facility] Specimen Type Cap Fingerstick 2023 11:33 AM FIELD INSTALLATION TECHNICIAN [facility] Blood BLOOD SPECIMEN / Unknown 10/01/2023 11:23 AM FIELD INSTALLATION TECHNICIAN 10/01/2023 11:33 AM FIELD INSTALLATION TECHNICIAN Praveen Kaufman MD LAB - POINT OF CARE ORDERABLES Performing Organization Address [facility] Co de Phone Number [facility] [address] [place] [address] [phone] * (ABNORMAL) GLUCOSE - POINT OF CARE (10/01/2023 7:32 AM FIELD INSTALLATION TECHNICIAN) Glucose WB/POC 115(H) 70 - 106 mg/dL 10/01/2023 7:41 AM FIELD INSTALLATION TECHNICIAN [facility] Specimen Type Cap Fingerstick 2023 7:41 AM FIELD INSTALLATION TECHNICIAN [facility] Blood BLOOD SPECIMEN / Unknown 10/01/2023 7:32 AM FIELD INSTALLATION TECHNICIAN 10/01/2023 7:41 AM FIELD INSTALLATION TECHNICIAN Praveen Kaufman MD LAB - POINT OF CARE ORDERABLES Performing Organization Address [facility] [[email or web address]] de Phone Number [facility] [address] [place] [address] [phone] * (ABNORMAL) GLUCOSE - POINT OF CARE (09/30/2023 8:46 PM FIELD INSTALLATION TECHNICIAN) Glucose WB/POC 152(H) 70 - 106 mg/dL 09/30/2023 8:56 PM FIELD INSTALLATION TECHNICIAN [facility] Specimen Type Cap Fingerstick 2023 8:56 PM FIELD INSTALLATION TECHNICIAN [facility] Blood BLOOD SPECIMEN / Unknown 09/30/2023 8:46 PM FIELD INSTALLATION TECHNICIAN 09/30/2023 8:56 PM FIELD INSTALLATION TECHNICIAN Praveen Kaufman MD LAB - POINT OF CARE ORDERABLES Performing Organization Address [facility] Co de Phone Number [facility] [address] [place] [address] [phone] * (ABNORMAL) GLUCOSE - POINT OF CARE (09/30/2023 3:51 PM FIELD INSTALLATION TECHNICIAN) Glucose WB/POC 170(H) 70 - 106 mg/dL 09/30/2023 4:01 PM FIELD INSTALLATION TECHNICIAN [facility] Specimen Type Cap Fingerstick 2023 4:01 PM FIELD INSTALLATION TECHNICIAN [facility] Blood BLOOD SPECIMEN / Unknown 09/30/2023 3:51 PM FIELD INSTALLATION TECHNICIAN 09/30/2023 4:01 PM FIELD INSTALLATION TECHNICIAN Praveen Kaufman MD LAB - POINT OF CARE ORDERABLES Performing Organization Address City/[facility]/ZIP Co de Phone Number [facility] [address] [place] [address] [phone] * (ABNORMAL) GLUCOSE - POINT OF CARE (09/30/2023 11:21 AM FIELD INSTALLATION TECHNICIAN) Glucose WB/POC 194(H) 70 - 106 mg/dL 09/30/2023 11:45 AM FIELD INSTALLATION TECHNICIAN [facility] Specimen Type Cap Fingerstick 2023 11:45 AM FIELD INSTALLATION TECHNICIAN [facility] Blood BLOOD SPECIMEN / Unknown 09/30/2023 11:21 AM FIELD INSTALLATION TECHNICIAN 09/30/2023 11:45 AM FIELD INSTALLATION TECHNICIAN Praveen Kaufman MD LAB - POINT OF CARE ORDERABLES Performing Organization Address [facility] Co de Phone Number [facility] [address] [place] [address] [phone] * (ABNORMAL) GLUCOSE - POINT OF CARE (09/30/2023 7:36 AM FIELD INSTALLATION TECHNICIAN) Glucose WB/POC 107(H) 70 - 106 mg/dL 09/30/2023 8:02 AM FIELD INSTALLATION TECHNICIAN [facility] Specimen Type Cap Fingerstick 2023 8:02 AM FIELD INSTALLATION TECHNICIAN [facility] Blood BLOOD SPECIMEN / Unknown 09/30/2023 7:36 AM FIELD INSTALLATION TECHNICIAN 09/30/2023 8:02 AM FIELD INSTALLATION TECHNICIAN Praveen Kaufman MD LAB - POINT OF CARE ORDERABLES Performing Organization Address City/[facility]/ZIP Co de Phone Number [facility] [address] [place] [address] [phone] * (ABNORMAL) HEPATIC FUNCTION PANEL (09/30/2023 3:49 AM FIELD INSTALLATION TECHNICIAN) Alkaline Phosphatase 76 40 - 150 U/L 09/30/2023 4:49 AM FIELD INSTALLATION TECHNICIAN [facility] ALT 28 0 - 55 U/L 09/30/2023 4:49 AM FIELD INSTALLATION TECHNICIAN [facility] AST 31 5 - 34 U/L 09/30/2023 4:49 AM [facility] Protein Total 5.8(L) 6.4 - 8.3 gm/dL 09/30/2023 4:49 AM [facility] Albumin 2.3(L) 3.4 - 5.0 gm/dL 09/30/2023 4:49 AM [facility] Bilirubin Total 0.5 0.2 - 1.2 mg/dL 09/30/2023 4:49 AM FIELD INSTALLATION TECHNICIAN [facility] Bilirubin Direct 0.171 0.10 - 0.50 mg/dL 09/30/2023 4:49 AM FIELD INSTALLATION TECHNICIAN [facility] Blood BLOOD SPECIMEN / Unknown Lab Venipuncture / Unknown 09/30/2023 3:49 AM FIELD INSTALLATION TECHNICIAN 09/30/2023 3:56 AM FIELD INSTALLATION TECHNICIAN Ashish Barnett MD LAB - CHEMIS TRY ORDERABLES Performing Organization Address City/[facility]/ZIP Co de Phone Number [facility] [address] [place] [address] [phone] * (ABNORMAL) GLUCOSE - POINT OF CARE (09/29/2023 8:02 PM FIELD INSTALLATION TECHNICIAN) Glucose WB/POC 208(H) 70 - 106 mg/dL 09/29/2023 8:11 PM FIELD INSTALLATION TECHNICIAN [facility] Specimen Type Cap Fingerstick 2023 8:11 PM FIELD INSTALLATION TECHNICIAN [facility] Blood BLOOD SPECIMEN / Unknown 09/29/2023 8:02 PM FIELD INSTALLATION TECHNICIAN 09/29/2023 8:11 PM FIELD INSTALLATION TECHNICIAN Praveen Kaufman MD LAB - POINT OF CARE ORDERABLES [facility] [address] [place] [address] [phone] * (ABNORMAL) GLUCOSE - POINT OF CARE (09/29/2023 3:23 PM FIELD INSTALLATION TECHNICIAN) Glucose WB/POC 171(H) 70 - 106 mg/dL 09/29/2023 3:36 PM FIELD INSTALLATION TECHNICIAN [facility] Specimen Type Cap Fingerstick 2023 3:36 PM FIELD INSTALLATION TECHNICIAN [facility] Blood BLOOD SPECIMEN / Unknown 09/29/2023 3:23 PM FIELD INSTALLATION TECHNICIAN 09/29/2023 3:36 PM FIELD INSTALLATION TECHNICIAN Praveen Kaufman MD LAB - POINT OF CARE ORDERABLES Performing Organization Address [facility] Co de Phone Number [facility] [address] [place] [address] [phone] * (ABNORMAL) GLUCOSE - POINT OF CARE (09/29/2023 11:27 AM FIELD INSTALLATION TECHNICIAN) Glucose WB/POC 160(H) 70 - 106 mg/dL 09/29/2023 3:48 PM FIELD INSTALLATION TECHNICIAN [facility] Specimen Type Cap Fingerstick 2023 3:48 PM FIELD INSTALLATION TECHNICIAN [facility] Blood BLOOD SPECIMEN / Unknown 09/29/2023 11:27 AM FIELD INSTALLATION TECHNICIAN 09/29/2023 3:48 PM FIELD INSTALLATION TECHNICIAN Praveen Kaufman MD LAB - POINT OF CARE ORDERABLES Performing Organization Address [facility] Co de Phone Number [facility] [address] [place] [address] [phone] * (ABNORMAL) GLUCOSE - POINT OF CARE (09/29/2023 7:41 AM FIELD INSTALLATION TECHNICIAN) Glucose WB/POC 119(H) 70 - 106 mg/dL 09/29/2023 9:03 AM FIELD INSTALLATION TECHNICIAN [facility] Specimen Type Cap Fingerstick 2023 9:03 AM FIELD INSTALLATION TECHNICIAN [facility] Blood BLOOD SPECIMEN / Unknown 09/29/2023 7:41 AM FIELD INSTALLATION TECHNICIAN 09/29/2023 9:03 AM FIELD INSTALLATION TECHNICIAN Praveen Kaufman MD LAB - POINT OF CARE ORDERABLES Performing Organization Address City/[facility]/ZIP Co de Phone Number [facility] [address] [place] [phone] * (ABNORMAL) GLUCOSE - POINT OF CARE (09/28/2023 7:47 PM FIELD INSTALLATION TECHNICIAN) Glucose WB/POC 198(H) 70 - 106 mg/dL 09/28/2023 7:53 PM FIELD INSTALLATION TECHNICIAN [facility] Specimen Type Cap Fingerstick 2023 7:53 PM FIELD INSTALLATION TECHNICIAN [facility] Blood BLOOD SPECIMEN / Unknown 09/28/2023 7:47 PM FIELD INSTALLATION TECHNICIAN 09/28/2023 7:53 PM FIELD INSTALLATION TECHNICIAN Praveen Kaufman MD LAB - POINT OF CARE ORDERABLES [facility] [address] [place] [phone] * (ABNORMAL) GLUCOSE - POINT OF CARE (09/28/2023 4:31 PM FIELD INSTALLATION TECHNICIAN) Glucose WB/POC 131(H) 70 - 106 mg/dL 09/28/2023 4:41 PM FIELD INSTALLATION TECHNICIAN [facility] Specimen Type Cap Fingerstick 2023 4:41 PM FIELD INSTALLATION TECHNICIAN [facility] Blood BLOOD SPECIMEN / Unknown 09/28/2023 4:31 PM FIELD INSTALLATION TECHNICIAN 09/28/2023 4:41 PM FIELD INSTALLATION TECHNICIAN Praveen Kaufman MD LAB - POINT OF CARE ORDERABLES Performing Organization Address [facility]/ZIP Co de Phone Number [facility] [address] [place] [phone] * (ABNORMAL) GLUCOSE - POINT OF CARE (09/28/2023 11:06 AM FIELD INSTALLATION TECHNICIAN) Glucose WB/POC 155(H) 70 - 106 mg/dL 09/28/2023 11:16 AM FIELD INSTALLATION TECHNICIAN [facility] Specimen Type Cap Fingerstick 2023 11:16 AM FIELD INSTALLATION TECHNICIAN [facility] Blood BLOOD SPECIMEN / Unknown 09/28/2023 11:06 AM FIELD INSTALLATION TECHNICIAN 09/28/2023 11:16 AM FIELD INSTALLATION TECHNICIAN Praveen Kaufman MD LAB - POINT OF CARE ORDERABLES Performing Organization Address City/[facility]/ZIP Co de Phone Number [facility] [address] [place] [phone] * (ABNORMAL) GLUCOSE - POINT OF CARE (09/28/2023 7:44 AM FIELD INSTALLATION TECHNICIAN) Glucose WB/POC 149(H) 70 - 106 mg/dL 09/28/2023 7:54 AM FIELD INSTALLATION TECHNICIAN [facility] Specimen Type Cap Fingerstick 2023 7:54 AM FIELD INSTALLATION TECHNICIAN [facility] Blood BLOOD SPECIMEN / Unknown 09/28/2023 7:44 AM FIELD INSTALLATION TECHNICIAN 09/28/2023 7:54 AM FIELD INSTALLATION TECHNICIAN Praveen Kaufman MD LAB - POINT OF CARE ORDERABLES Performing Organization Address City/[facility]/ZIP Co de Phone Number [facility] [address] [place] [address] [phone] * (ABNORMAL) GLUCOSE - POINT OF CARE (09/27/2023 10:05 PM FIELD INSTALLATION TECHNICIAN) Glucose WB/POC 137(H) 70 - 106 mg/dL 09/27/2023 10:15 PM FIELD INSTALLATION TECHNICIAN [facility] Specimen Type Cap Fingerstick 2023 10:15 PM FIELD INSTALLATION TECHNICIAN [facility] Blood BLOOD SPECIMEN / Unknown 09/27/2023 10:05 PM FIELD INSTALLATION TECHNICIAN 09/27/2023 10:15 PM FIELD INSTALLATION TECHNICIAN Praveen Kaufman MD LAB - POINT OF CARE ORDERABLES Performing Organization Address [facility] Co de Phone Number [facility] [address] [place] [phone] * (ABNORMAL) GLUCOSE - POINT OF CARE (09/27/2023 4:08 PM FIELD INSTALLATION TECHNICIAN) Glucose WB/POC 201(H) 70 - 106 mg/dL 09/27/2023 4:14 PM FIELD INSTALLATION TECHNICIAN [facility] Specimen Type Cap Fingerstick 2023 4:14 PM FIELD INSTALLATION TECHNICIAN [facility] Blood BLOOD SPECIMEN / Unknown 09/27/2023 4:08 PM FIELD INSTALLATION TECHNICIAN 09/27/2023 4:14 PM FIELD INSTALLATION TECHNICIAN Praveen Kaufman MD LAB - POINT OF CARE ORDERABLES [facility] [address] [place] [address] * (ABNORMAL) GLUCOSE - POINT OF CARE (09/27/2023 12:20 PM FIELD INSTALLATION TECHNICIAN) Glucose WB/POC 130(H) 70 - 106 mg/dL 09/27/2023 12:26 PM FIELD INSTALLATION TECHNICIAN [facility] Specimen Type Venous 09/27/2023 12:26 PM FIELD INSTALLATION TECHNICIAN [facility] Blood BLOOD SPECIMEN / Unknown 09/27/2023 12:20 PM FIELD INSTALLATION TECHNICIAN 09/27/2023 12:26 PM FIELD INSTALLATION TECHNICIAN Praveen Kaufman MD LAB - POINT OF CARE ORDERABLES Performing Organization Address City/[facility]/ZIP Co de Phone Number [facility] [address] [place] [address] * CULTURE WOUND+GRAM STAIN (09/27/2023 11:21 AM FIELD INSTALLATION TECHNICIAN) Culture No growth MONALISA 09/30/2023 3:31 AM FIELD INSTALLATION TECHNICIAN [facility] Gram Stain Light Polymorphonuclear cells 09/30/2023 3:31 AM FIELD INSTALLATION TECHNICIAN [facility] Gram Stain No organisms seen 024 3:31 AM FIELD INSTALLATION TECHNICIAN [facility] Microbiology ENTIRE HIP REGION / Unknown Collection / Unknown 09/27/2023 11:21 AM FIELD INSTALLATION TECHNICIAN 09/27/2023 12:32 PM FIELD INSTALLATION TECHNICIAN Comment:Pre-op diagnosis: Diagnosis unknown [R69] Narrative [facility] - 09/30/2023 3:31 AM FIELD INSTALLATION TECHNICIAN Surgical Description: Right Hip Torrey Lafleur MD LAB - MICROBIOLOGY ORDERABLES [facility] [address] [place] [address], [facility] [phone] * CULTURE ANAEROBE (09/27/2023 11:21 AM FIELD INSTALLATION TECHNICIAN) Culture No anaerobic organisms isolated MONALISA 10/02/2023 1:25 PM FIELD INSTALLATION TECHNICIAN [facility] Microbiology ENTIRE HIP REGION / Unknown 09/27/2023 11:21 AM FIELD INSTALLATION TECHNICIAN 09/27/2023 12:32 PM FIELD INSTALLATION TECHNICIAN Comment:Pre-op diagnosis: Diagnosis unknown [R69] Narrative [facility] - 10/02/2023 1:25 PM FIELD INSTALLATION TECHNICIAN Surgical Description: Right Hip Torrey Lafleur MD LAB - MICROBIOLOGY ORDERABLES [facility] [address] [place] [address], [facility] [phone] * (ABNORMAL) GLUCOSE - POINT OF CARE (09/27/2023 7:50 AM FIELD INSTALLATION TECHNICIAN) Glucose WB/POC 127(H) 70 - 106 mg/dL 09/27/2023 7:56 AM FIELD INSTALLATION TECHNICIAN [facility] Specimen Type Cap Fingerstick 2023 7:56 AM FIELD INSTALLATION TECHNICIAN [facility] Blood BLOOD SPECIMEN / Unknown 09/27/2023 7:50 AM FIELD INSTALLATION TECHNICIAN 09/27/2023 7:56 AM FIELD INSTALLATION TECHNICIAN Praveen Kaufman MD LAB - POINT OF CARE ORDERABLES Performing Organization Address City/[facility]/ZIP Co de Phone Number [facility] [address] [place] [phone] * (ABNORMAL) GLUCOSE - POINT OF CARE (09/26/2023 8:15 PM FIELD INSTALLATION TECHNICIAN) Glucose WB/POC 128(H) 70 - 106 mg/dL 09/26/2023 8:22 PM FIELD INSTALLATION TECHNICIAN [facility] Specimen Type Cap Fingerstick 2023 8:22 PM FIELD INSTALLATION TECHNICIAN [facility] Blood BLOOD SPECIMEN / Unknown 09/26/2023 8:15 PM FIELD INSTALLATION TECHNICIAN 09/26/2023 8:22 PM FIELD INSTALLATION TECHNICIAN Praveen Kaufman MD LAB - POINT OF CARE ORDERABLES Performing Organization Address City/[facility]/ZIP Co de Phone Number [facility] [address] [place] [address] [phone] * (ABNORMAL) GLUCOSE - POINT OF CARE (09/26/2023 4:31 PM FIELD INSTALLATION TECHNICIAN) Glucose WB/POC 111(H) 70 - 106 mg/dL 09/26/2023 4:41 PM FIELD INSTALLATION TECHNICIAN [facility] Specimen Type Cap Fingerstick 2023 4:41 PM FIELD INSTALLATION TECHNICIAN [facility] Blood BLOOD SPECIMEN / Unknown 09/26/2023 4:31 PM FIELD INSTALLATION TECHNICIAN 09/26/2023 4:41 PM FIELD INSTALLATION TECHNICIAN Praveen Kaufman MD LAB - POINT OF CARE ORDERABLES Performing Organization Address City/[facility]/ZIP Co de Phone Number [facility] [address] [place] [phone] * (ABNORMAL) GLUCOSE - POINT OF CARE (09/26/2023 11:40 AM FIELD INSTALLATION TECHNICIAN) Pathologist [facility] Glucose WB/POC 115(H) 70 - 106 mg/dL 09/26/2023 11:49 AM FIELD INSTALLATION TECHNICIAN [facility] Specimen Type Cap Fingerstick 2023 11:49 AM FIELD INSTALLATION TECHNICIAN [facility] Blood BLOOD SPECIMEN / Unknown 09/26/2023 11:40 AM FIELD INSTALLATION TECHNICIAN 09/26/2023 11:49 AM FIELD INSTALLATION TECHNICIAN Praveen Kaufman MD LAB - POINT OF CARE ORDERABLES Performing Organization Address [facility] Co de Phone Number [facility] [address] [place] [phone] * (ABNORMAL) VANCOMYCIN LEVEL TROUGH (09/26/2023 11:00 AM FIELD INSTALLATION TECHNICIAN) Pathologist [facility] Vancomycin Trough 9.8(L) 10.0 - 20.0 ug/mL 09/26/2023 11:58 AM FIELD INSTALLATION TECHNICIAN [facility] Blood BLOOD SPECIMEN / Unknown Lab Venipuncture / Unknown 09/26/2023 11:00 AM FIELD INSTALLATION TECHNICIAN 09/26/2023 11:25 AM FIELD INSTALLATION TECHNICIAN Praveen Kaufman MD LAB - CHEMISTRY BENJA DICK Performing Organization Address City/[facility]/ZIP Co de Phone Number [facility] [address] [place] [address] [phone] * (ABNORMAL) GLUCOSE - POINT OF CARE (09/26/2023 7:38 AM FIELD INSTALLATION TECHNICIAN) Pathologist [facility] Glucose WB/POC 113(H) 70 - 106 mg/dL 09/26/2023 7:57 AM FIELD INSTALLATION TECHNICIAN [facility] Specimen Type Cap Fingerstick 2023 7:57 AM FIELD INSTALLATION TECHNICIAN [facility] Blood BLOOD SPECIMEN / Unknown 09/26/2023 7:38 AM FIELD INSTALLATION TECHNICIAN 09/26/2023 7:57 AM FIELD INSTALLATION TECHNICIAN Praveen Kaufman MD LAB - POINT OF CARE ORDERABLES Performing Organization Address City/[facility]/ZIP Co de Phone Number [facility] [address] [place] [phone] * (ABNORMAL) VANCOMYCIN LEVEL PEAK (09/26/2023 4:55 AM FIELD INSTALLATION TECHNICIAN) [facility] Vancomycin Peak 18.3(L) 25.0 - 40.0 ug/mL 09/26/2023 5:37 AM FIELD INSTALLATION TECHNICIAN [facility] Blood BLOOD SPECIMEN / Unknown Lab Venipuncture / Unknown 09/26/2023 4:55 AM FIELD INSTALLATION TECHNICIAN 09/26/2023 5:18 AM FIELD INSTALLATION TECHNICIAN Praveen Kaufman MD LAB - CHEMISTRY ORDE RABLES Performing Organization Address [facility] Co de Phone Number [facility] [address] [place] [phone] * (ABNORMAL) GLUCOSE - POINT OF CARE (09/25/2023 9:55 PM FIELD INSTALLATION TECHNICIAN) [facility] Glucose WB/POC 170(H) 70 - 106 mg/dL 09/26/2023 4:55 AM FIELD INSTALLATION TECHNICIAN [facility] Specimen Type Cap Fingerstick 2023 4:55 AM FIELD INSTALLATION TECHNICIAN [facility] Blood BLOOD SPECIMEN / Unknown 09/25/2023 9:55 PM FIELD INSTALLATION TECHNICIAN 09/26/2023 4:55 AM FIELD INSTALLATION TECHNICIAN Praveen Kaufman MD LAB - POINT OF CARE ORDERABLES Performing Organization Address [facility] Co de Phone Number [facility] [address] [place] [phone] * (ABNORMAL) GLUCOSE - POINT OF CARE (09/25/2023 4:17 PM FIELD INSTALLATION TECHNICIAN) Glucose WB/POC 148(H) 70 - 106 mg/dL 09/25/2023 4:43 PM FIELD INSTALLATION TECHNICIAN [facility] Specimen Type Cap Fingerstick 2023 4:43 PM FIELD INSTALLATION TECHNICIAN [facility] Blood BLOOD SPECIMEN / Unknown 09/25/2023 4:17 PM FIELD INSTALLATION TECHNICIAN 09/25/2023 4:43 PM FIELD INSTALLATION TECHNICIAN Praveen Kaufman MD LAB - POINT OF CARE ORDERABLES Performing Organization Address City/[facility]/ZIP Co de Phone Number [facility] [address] [place], [place] [phone] * (ABNORMAL) GLUCOSE - POINT OF CARE (09/25/2023 12:00 PM FIELD INSTALLATION TECHNICIAN) Glucose WB/POC 208(H) 70 - 106 mg/dL 09/25/2023 4:14 PM FIELD INSTALLATION TECHNICIAN [facility] Specimen Type Cap Fingerstick 2023 4:14 PM FIELD INSTALLATION TECHNICIAN [facility] Blood BLOOD SPECIMEN / Unknown 09/25/2023 12:00 PM FIELD INSTALLATION TECHNICIAN 09/25/2023 4:14 PM FIELD INSTALLATION TECHNICIAN Praveen Kaufman MD LAB - POINT OF CARE ORDERABLES Performing Organization Address [facility]/ZIP Co de Phone Number [facility] [address] [place] [address] [phone] * CULTURE BLOOD (09/25/2023 10:45 AM FIELD INSTALLATION TECHNICIAN) Culture No growth day 5 MONALISA 09/30/2023 2:01 PM FIELD INSTALLATION TECHNICIAN [facility] Blood PERIPHERAL BLOOD / Unknown Lab Venipuncture / Unknown 09/25/2023 10:45 AM FIELD INSTALLATION TECHNICIAN 09/25/2023 11:04 AM FIELD INSTALLATION TECHNICIAN Ashish Barnett MD LAB - MICROB IOLOGY ORDERABLES [facility] [address] [place] [phone] [place] [address] * CULTURE BLOOD (09/25/2023 10:41 AM FIELD INSTALLATION TECHNICIAN) Pathologist [facility] Culture No growth day 5 MONALISA 09/30/2023 2:01 PM FIELD INSTALLATION TECHNICIAN [facility] Blood PERIPHERAL BLOOD / Unknown Lab Venipuncture / Unknown 09/25/2023 10:41 AM FIELD INSTALLATION TECHNICIAN 09/25/2023 11:05 AM FIELD INSTALLATION TECHNICIAN Ashish Barnett MD LAB - MICROB IOLOGY ORDERABLES [facility] [address] [place] [address], [facility] [phone] * (ABNORMAL) GLUCOSE - POINT OF CARE (09/25/2023 7:50 AM FIELD INSTALLATION TECHNICIAN) Pathologist [facility] Glucose WB/POC 153(H) 70 - 106 mg/dL 09/25/2023 8:00 AM FIELD INSTALLATION TECHNICIAN [facility] Specimen Type Cap Fingerstick 2023 8:00 AM FIELD INSTALLATION TECHNICIAN [facility] Blood BLOOD SPECIMEN / Unknown 09/25/2023 7:50 AM FIELD INSTALLATION TECHNICIAN 09/25/2023 8:00 AM FIELD INSTALLATION TECHNICIAN Praveen Kaufman MD LAB - POINT OF CARE ORDERABLES Performing Organization Address City/[facility]/ZIP Co de Phone Number [facility] [address] [place] [address] * (ABNORMAL) CBC W/O DIFFERENTIAL (09/25/2023 1:41 AM FIELD INSTALLATION TECHNICIAN) Pathologist [facility] WBC 9.9 4.0 - 10.7 x10E9/L 09/25/2023 2:46 AM FIELD INSTALLATION TECHNICIAN [facility] RBC Count 3.49(L) 4.30 - 5.80 x10E12/L 09/25/2023 2:46 AM FIELD INSTALLATION TECHNICIAN [facility] Hemoglobin 10.8(L) 13.3 - 17.5 g/dL 09/25/2023 2:46 AM FIELD INSTALLATION TECHNICIAN [facility] Hematocrit 33.6(L) 38.7 - 51.1 % 09/25/2023 2:46 AM FIELD INSTALLATION TECHNICIAN [facility] MCV 96.3 80.0 - 98.0 fL 09/25/2023 2:46 AM [facility] MCH 30.9 26.7 - 33.6 pg 09/25/2023 2:46 AM [facility] MCHC 32.1 31.7 - 36.3 g/dL 09/25/2023 2:46 AM [facility] RDW-CV 13.6 11.3 - 14.8 % 09/25/2023 2:46 AM [facility] Platelet Count 165 150 - 420 x10E9/L 09/25/2023 2:46 AM [facility] MPV 9.4 7.8 - 11.4 fL 09/25/2023 2:46 AM [facility] Blood BLOOD SPECIMEN / Unknown Lab Venipuncture / Unknown 09/25/2023 1:41 AM FIELD INSTALLATION TECHNICIAN 09/25/2023 2:25 AM [facility] Sarah Pasrons [employer] TRIMMER-PRE[employer] SPECIALIST LAB - HEMATOLO GY ORDERABLES Performing Organization Address City/State/[facility] Co de Phone Number [facility] [address] [place] [address] * (ABNORMAL) BASIC METABOLIC PANEL (CALCIUM TOTAL) (09/25/2023 1:41 AM [facility]) Glucose 182(H) 70 - 105 mg/dL 09/25/2023 3:12 AM [facility] Sodium 138 136 - 145 mmol/L 09/25/2023 3:12 AM [facility] Potassium 4.0 3.5 - 5.1 mmol/L 09/25/2023 3:12 AM [facility] Chloride 106 98 - 107 mmol/L 09/25/2023 3:12 AM [facility] CO2 22 22 - 29 mmol/L 09/25/2023 3:12 AM [facility] Calcium 8.6 8.4 - 10.4 mg/dL 09/25/2023 3:12 AM [facility] Anion Gap 10 6 - 16 mmol/L 09/25/2023 3:12 AM [facility] BUN 14 7 - 26 mg/dL 09/25/2023 3:12 AM [facility] Creatinine 0.88 0.72 - 1.25 mg/dL 09/25/2023 3:12 AM [facility] eGFR by CKD-EPI >90 >=90 mL/min/1.7 3 m2 09/25/2023 3:12 AM [facility] Blood BLOOD SPECIMEN / Unknown Lab Venipuncture / Unknown 09/25/2023 1:41 AM FIELD INSTALLATION TECHNICIAN 09/25/2023 2:25 AM FIELD INSTALLATION TECHNICIAN Sarah Parsons [employer] TRIMMER-PREPRESS SPECIALIST LAB - CHEMISTR Y ORDERABLES [facility] [address] [place] [address] * (ABNORMAL) HEMOGLOBIN A1C (09/25/2023 1:41 AM [facility]) Hemoglobin A1c 6.4(H) <5.7 % 09/25/2023 3:16 AM [facility] Estimated Average Glucose 137 mg/dL 09/25/2023 3:16 AM [facility] Blood BLOOD SPECIMEN / Unknown Lab Venipuncture / Unknown 09/25/2023 1:41 AM FIELD INSTALLATION TECHNICIAN 09/25/2023 2:25 AM [facility] Narrative [facility] - 09/25/2023 3:16 AM [facility] HbA1c Interpretation: Normal: < 5.7% Pre-diabetes: 5.7-6.4% [...] - CHEMISTR Y ORDERABLES Performing Organization Address [facility]/ZIP Co de Phone Number [facility] [address] [place] [phone] * (ABNORMAL) GLUCOSE - POINT OF CARE (09/24/2023 10:51 PM FIELD INSTALLATION TECHNICIAN) Glucose WB/POC 135(H) 70 - 106 mg/dL 09/24/2023 10:59 PM FIELD INSTALLATION TECHNICIAN [facility] Specimen Type Cap Fingerstick 2023 10:59 PM FIELD INSTALLATION TECHNICIAN [facility] Blood BLOOD SPECIMEN / Unknown 09/24/2023 10:51 PM FIELD INSTALLATION TECHNICIAN 09/24/2023 10:59 PM FIELD INSTALLATION TECHNICIAN Bryant Jones MD LAB - POINT OF CARE ORDERABLES Performing Organization Address [facility] Co de Phone Number [facility] [address] [place] [phone] * (ABNORMAL) GLUCOSE - POINT OF CARE (09/24/2023 9:50 PM FIELD INSTALLATION TECHNICIAN) Glucose WB/POC 140(H) 70 - 106 mg/dL 09/26/2023 10:03 AM FIELD INSTALLATION TECHNICIAN [facility] Specimen Type Cap Fingerstick 2023 10:03 AM FIELD INSTALLATION TECHNICIAN [facility] Blood BLOOD SPECIMEN / Unknown 09/24/2023 9:50 PM FIELD INSTALLATION TECHNICIAN 09/26/2023 10:03 AM FIELD INSTALLATION TECHNICIAN Bryant Jones MD LAB - POINT OF CARE ORDERABLES Performing Organization Address [facility]/ZIP Co de Phone Number [facility] [address] [place] [phone] * CULTURE FUNGUS OTHER+FUNGUS SMEAR (09/24/2023 9:01 PM FIELD INSTALLATION TECHNICIAN) Culture No fungus isolated MONALISA 10/22/2023 6:59 AM CDT [facility] Fungus Stain No yeast or hyphae seen 10/22/2023 6:59 AM CDT [facility] Microbiology TISSUE SPECIMEN / Unknown Collection / Unknown 09/24/2023 9:01 PM FIELD INSTALLATION TECHNICIAN 09/24/2023 10:11 PM FIELD INSTALLATION TECHNICIAN Comment:Pre-op diagnosis: Diagnosis unknown [R69] Narrative [facility] - 10/22/2023 6:59 AM CDT Surgical Description: Right Hip Tissue Torrey Lafleur MD LAB - MICROBIOLOGY ORDERABLES Performing Organization Address [facility] Co de Phone Number [facility] [address] [place] [address], [facility] [phone] * (ABNORMAL) CULTURE TISSUE+GRAM STAIN (09/24/2023 9:01 PM FIELD INSTALLATION TECHNICIAN) Culture Rare Streptococcus agalactiae (Group B)(AA) MONALISA 09/28/2023 7:22 AM FIELD INSTALLATION TECHNICIAN [facility] Gram Stain Rare Polymorphonuclear cells 09/28/2023 7:22 AM FIELD INSTALLATION TECHNICIAN [facility] Gram Stain No organisms seen 024 7:22 AM FIELD INSTALLATION TECHNICIAN [facility] Microbiology TISSUE SPECIMEN / Unknown Collection / Unknown 09/24/2023 9:01 PM FIELD INSTALLATION TECHNICIAN 09/24/2023 10:11 PM FIELD INSTALLATION TECHNICIAN Comment:Pre-op diagnosis: Diagnosis unknown [R69] Narrative [facility] - 09/28/2023 7:22 AM FIELD INSTALLATION TECHNICIAN Susceptibility testing of penicillin, other beta-lactam antibiotics, and vancomycin is not necessary for beta-hemolytic streptococci groups A,B,C and G because resistant strains have not been recognized. Refer to previously reported susceptibility testing, specimen number: [id number]. Surgical Description: Right Hip Tissue Torrey Lafleur MD LAB - MICROBIOLOGY ORDERABLES Performing Organization Address City/[facility] Co de Phone Number [facility] [address] [place] [address], [facility] [phone] * CULTURE AFB+SMEAR (09/24/2023 9:01 PM FIELD INSTALLATION TECHNICIAN) Culture No acid-fast bacillus isolated 11/05/2023 6:39 AM CDT [facility] AFB Smear No acid-fast bacilli seen 11/05/2023 6:39 AM CDT [facility] Microbiology TISSUE SPECIMEN / Unknown Collection / Unknown 09/24/2023 9:01 PM FIELD INSTALLATION TECHNICIAN 09/24/2023 10:11 PM FIELD INSTALLATION TECHNICIAN Comment:Pre-op diagnosis: Diagnosis unknown [R69] Narrative [facility] - 11/05/2023 6:39 AM CDT Surgical Description: Right Hip Tissue Torrey Lafleur MD LAB - MICROBIOLOGY ORDERABLES Performing Organization Address City/[facility]/ZIP Co de Phone Number [facility] [address] [place] [address], [facility] [phone] * CULTURE ANAEROBE (09/24/2023 9:01 PM FIELD INSTALLATION TECHNICIAN) Culture No anaerobic organisms isolated to date. MONALISA 09/30/2023 2:53 PM FIELD INSTALLATION TECHNICIAN [facility] Microbiology TISSUE SPECIMEN / Unknown Collection / Unknown 09/24/2023 9:01 PM FIELD INSTALLATION TECHNICIAN 09/24/2023 10:11 PM FIELD INSTALLATION TECHNICIAN Comment:Pre-op diagnosis: Diagnosis unknown [R69] Narrative [facility] - 09/30/2023 2:53 PM FIELD INSTALLATION TECHNICIAN Surgical Description: Right Hip Tissue Torrey Lafleur MD LAB - MICROBIOLOGY ORDERABLES Performing Organization Address City/[facility]/ZIP Co de Phone Number [facility] [address] [place] [id number], [facility] [phone] * CULTURE FUNGUS OTHER+FUNGUS SMEAR (09/24/2023 8:58 PM FIELD INSTALLATION TECHNICIAN) Culture No fungus isolated MONALISA 10/22/2023 6:59 AM CDT [facility] Fungus Stain No yeast or hyphae seen 10/22/2023 6:59 AM CDT [facility] Microbiology ENTIRE HIP REGION / Unknown 09/24/2023 8:58 PM FIELD INSTALLATION TECHNICIAN 09/24/2023 10:17 PM FIELD INSTALLATION TECHNICIAN Comment:Pre-op diagnosis: Diagnosis unknown [R69] Narrative [facility] - 10/22/2023 6:59 AM CDT Surgical Description: Right Hip Swab Torrey Lafleur MD LAB - MICROBIOLOGY ORDERABLES Performing Organization Address City/State/[facility] Co de Phone Number [facility] [address] [place] [address], [facility] [phone] * (ABNORMAL) CULTURE TISSUE+GRAM STAIN (09/24/2023 8:58 PM FIELD INSTALLATION TECHNICIAN) Culture Light Streptococcus agalactiae (Group B)(AA) MONALISA 09/28/2023 4:40 AM FIELD INSTALLATION TECHNICIAN [facility] Gram Stain Heavy Red blood cells 09/28/2023 4:40 AM FIELD INSTALLATION TECHNICIAN [facility] Gram Stain Moderate Polymorphonuclear cells 09/28/2023 4:40 AM FIELD INSTALLATION TECHNICIAN [facility] Gram Stain No organisms seen 024 4:40 AM FIELD INSTALLATION TECHNICIAN [facility] Microbiology ENTIRE HIP REGION / Unknown 09/24/2023 8:58 PM FIELD INSTALLATION TECHNICIAN 09/24/2023 10:17 PM FIELD INSTALLATION TECHNICIAN Comment:Pre-op diagnosis: Diagnosis unknown [R69] Narrative [facility] - 09/28/2023 4:40 AM FIELD INSTALLATION TECHNICIAN Susceptibility testing of penicillin, other beta-lactam antibiotics, [...] Torrey Lafleur MD LAB - MICROBIOLOGY ORDERABLES [facility] [address] [place] [address], [facility] [phone] * CULTURE AFB+SMEAR (09/24/2023 8:58 PM FIELD INSTALLATION TECHNICIAN) Culture No acid-fast bacillus isolated 11/05/2023 6:39 AM CDT [facility] AFB Smear No acid-fast bacilli seen 11/05/2023 6:39 AM CDT [facility] Microbiology ENTIRE HIP REGION / Unknown 09/24/2023 8:58 PM FIELD INSTALLATION TECHNICIAN 09/24/2023 10:17 PM FIELD INSTALLATION TECHNICIAN Comment:Pre-op diagnosis: Diagnosis unknown [R69] Narrative [facility] - 11/05/2023 6:39 AM CDT Surgical Description: Right Hip Swab Torrey Lafleur MD LAB - MICROBIOLOGY ORDERABLES Performing Organization Address [facility] Co de Phone Number [facility] [address] [place] [address], [facility] [phone] * CULTURE ANAEROBE (09/24/2023 8:58 PM FIELD INSTALLATION TECHNICIAN) Culture No anaerobic organisms isolated to date. MONALISA 09/30/2023 2:53 PM FIELD INSTALLATION TECHNICIAN [facility] Microbiology ENTIRE HIP REGION / Unknown 09/24/2023 8:58 PM FIELD INSTALLATION TECHNICIAN 09/24/2023 10:17 PM FIELD INSTALLATION TECHNICIAN Comment:Pre-op diagnosis: Diagnosis unknown [R69] Narrative [facility] - 09/30/2023 2:53 PM FIELD INSTALLATION TECHNICIAN Surgical Description: Right Hip Swab Torrey Lafleur MD LAB - MICROBIOLOGY ORDERABLES Performing Organization Address [facility] Co de Phone Number [facility] [address] [place] [address], [facility] [phone] * FL GUIDED NEEDLE PLACEMENT (09/24/2023 8:45 PM FIELD INSTALLATION TECHNICIAN) Narrative [facility] - 09/25/2023 3:44 PM FIELD INSTALLATION TECHNICIAN See Notes. Drew Lerma DO FLUOROSCOPY ORD ERABLES Performing Organization Address [facility] Co de Phone Number [facility] [address] [place] [address] * PATHOLOGY SMEAR BODY FLUID (09/24/2023 8:28 PM FIELD INSTALLATION TECHNICIAN) Path Review Fluid Confirmed 09/25/2023 2:14 PM FIELD INSTALLATION TECHNICIAN [facility] Fluid SYNOVIAL FLUID / Unknown Collection / Unknown 09/24/2023 8:28 PM FIELD INSTALLATION TECHNICIAN 09/24/2023 10:10 PM FIELD INSTALLATION TECHNICIAN Narrative [facility] - 09/25/2023 2:14 PM FIELD INSTALLATION TECHNICIAN Final Diagnosis- Synovial fluid, right hip, aspiration time of arthroplasty: 1. 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 Test Performed By: Torrey Vargas MD 09/25/2023 ??2:06 PM Torrey Lafleur MD LAB - PATHOLOGY/CYT OLOGY ORDERABLES Performing Organization Address [facility] Co de Phone Number [facility] [address] [place] [phone] * DIFFERENTIAL MANUAL FLUID (09/24/2023 8:28 PM FIELD INSTALLATION TECHNICIAN) Fluid Source Synovial 09/25/2023 2:14 PM FIELD INSTALLATION TECHNICIAN [facility] Body Fluid Total Cell Count 100 x10E6/L 09/25/2023 2:14 PM FIELD INSTALLATION TECHNICIAN [facility] Neutrophils Fluid Percent 81 % 09/25/2023 2:14 PM FIELD INSTALLATION TECHNICIAN [facility] Lymphocytes Fluid Percent 17 % 09/25/2023 2:14 PM FIELD INSTALLATION TECHNICIAN [facility] Macrophages Fluid Percent 2 % 09/25/2023 2:14 PM FIELD INSTALLATION TECHNICIAN [facility] Fluid SYNOVIAL FLUID / Unknown Collection / Unknown 09/24/2023 8:28 PM FIELD INSTALLATION TECHNICIAN 09/24/2023 10:10 PM FIELD INSTALLATION TECHNICIAN Narrative [facility] - 09/25/2023 2:14 PM FIELD INSTALLATION TECHNICIAN No reference ranges established for body fluid differential cell counts. ??The test results must be integrated into the clinical context for interpretation. Torrey Lafleur MD LAB - BODY FLUID OR DERABLES Performing Organization Address [facility] Co de Phone Number [facility] [address] [place] [phone] * CRYSTAL IDENTIFICATION FLUID (09/24/2023 8:28 PM FIELD INSTALLATION TECHNICIAN) Fluid Type Synovial 09/24/2023 11:04 PM FIELD INSTALLATION TECHNICIAN [facility] Crystals Fluid None None 09/24/2023 11:04 PM FIELD INSTALLATION TECHNICIAN [facility] Fluid SYNOVIAL FLUID / Unknown Collection / Unknown 09/24/2023 8:28 PM FIELD INSTALLATION TECHNICIAN 09/24/2023 10:10 PM FIELD INSTALLATION TECHNICIAN Comment:Pre-op diagnosis: Diagnosis unknown [R69] Torrey Lafleur MD LAB - BODY FLUID OR DERABLES Performing Organization Address [email or web address]] de Phone Number [facility] [address] [place] [phone] * (ABNORMAL) CELL COUNT W DIFFERENTIAL FLUID (09/24/2023 8:28 PM FIELD INSTALLATION TECHNICIAN) Fluid Source Synovial 09/25/2023 1:47 AM FIELD INSTALLATION TECHNICIAN [facility] Fluid Appearance TURBID 09/25/2023 1:47 AM FIELD INSTALLATION TECHNICIAN [facility] Fluid Color OTHER 09/25/2023 1:47 AM FIELD INSTALLATION TECHNICIAN [facility] Total Nucleated Cells Fluid 98,920(H) <=200 x10E6/L 09/25/2023 1:47 AM FIELD INSTALLATION TECHNICIAN [facility] RBC Count Fluid 40,000 Reference Range Not Established x10E6/L 09/25/2023 1:47 AM FIELD INSTALLATION TECHNICIAN [facility] Fluid SYNOVIAL FLUID / Unknown Collection / Unknown 09/24/2023 8:28 PM FIELD INSTALLATION TECHNICIAN 09/24/2023 10:10 PM FIELD INSTALLATION TECHNICIAN Comment:Pre-op diagnosis: Diagnosis unknown [R69] Narrative [facility] - 09/25/2023 1:47 AM FIELD INSTALLATION TECHNICIAN No reference ranges established for body fluid cell counts. Any reference ranges provided are derived from published literature. The test results must be integrated into the clinical context for interpretation. Torrey Lafleur MD LAB - BODY FLUID OR DERABLES Performing Organization Address [facility] Co de Phone Number [facility] [address] [place] [phone] * CULTURE FUNGUS OTHER+FUNGUS SMEAR (09/24/2023 8:27 PM FIELD INSTALLATION TECHNICIAN) Culture No fungus isolated MONALISA 10/22/2023 6:59 AM CDT [facility] Fungus Stain No yeast or hyphae seen 10/22/2023 6:59 AM CDT [facility] Microbiology SYNOVIAL FLUID / Unknown Collection / Unknown 09/24/2023 8:27 PM FIELD INSTALLATION TECHNICIAN 09/24/2023 10:12 PM FIELD INSTALLATION TECHNICIAN Comment:Pre-op diagnosis: Diagnosis unknown [R69] Torrey Lafleur MD LAB - MICROBIOLOGY ORDERABLES Performing Organization Address [facility] Co de Phone Number [facility] [address] [place] [address], [facility] [phone] * (ABNORMAL) CULTURE FLUID+GRAM STAIN (09/24/2023 8:27 PM FIELD INSTALLATION TECHNICIAN) Culture Rare Streptococcus agalactiae (Group B)(AA) MONALISA 09/28/2023 7:20 AM FIELD INSTALLATION TECHNICIAN [facility] Gram Stain Heavy Polymorphonuclear cells 09/28/2023 7:20 AM FIELD INSTALLATION TECHNICIAN [facility] Gram Stain No organisms seen 024 7:20 AM FIELD INSTALLATION TECHNICIAN [facility] Microbiology SYNOVIAL FLUID / Unknown Collection / Unknown 09/24/2023 8:27 PM FIELD INSTALLATION TECHNICIAN 09/24/2023 10:12 PM FIELD INSTALLATION TECHNICIAN Comment:Pre-op diagnosis: Diagnosis unknown [R69] Narrative [facility] - 09/28/2023 7:20 AM FIELD INSTALLATION TECHNICIAN Susceptibility testing of penicillin, other beta-lactam antibiotics, and vancomycin is not necessary for beta-hemolytic streptococci groups A,B,C and G because resistant strains have not been recognized. Refer to previously reported susceptibility testing, specimen number: [id number]. Torrey Lafleur MD LAB - MICROBIOLOGY ORDERABLES Performing Organization Address [facility] Co de Phone Number [facility] [address] [place] [address], [facility] [phone] * CULTURE AFB+SMEAR (09/24/2023 8:27 PM FIELD INSTALLATION TECHNICIAN) Culture No acid-fast bacillus isolated 11/05/2023 6:39 AM CDT [facility] AFB Smear No acid-fast bacilli seen 11/05/2023 6:39 AM CDT [facility] Microbiology SYNOVIAL FLUID / Unknown Collection / Unknown 09/24/2023 8:27 PM FIELD INSTALLATION TECHNICIAN 09/24/2023 10:12 PM FIELD INSTALLATION TECHNICIAN Comment:Pre-op diagnosis: Diagnosis unknown [R69] Torrey Lafleur MD LAB - MICROBIOLOGY ORDERABLES Performing Organization Address [place]/[facility]/ZIP Co de Phone Number [facility] [address] [place] [address], [facility] [phone] * CULTURE ANAEROBE (09/24/2023 8:27 PM FIELD INSTALLATION TECHNICIAN) Culture No anaerobic organisms isolated to date. MONALISA 09/30/2023 2:53 PM FIELD INSTALLATION TECHNICIAN [facility] Microbiology SYNOVIAL FLUID / Unknown Collection / Unknown 09/24/2023 8:27 PM FIELD INSTALLATION TECHNICIAN 09/24/2023 10:12 PM FIELD INSTALLATION TECHNICIAN Comment:Pre-op diagnosis: Diagnosis unknown [R69] Torrey Lafleur MD LAB - MICROBIOLOGY ORDERABLES Performing Organization Address [facility] Co de Phone Number [facility] [address] [place] [address], [facility] [phone] * (ABNORMAL) GLUCOSE - POINT OF CARE (09/24/2023 6:06 PM FIELD INSTALLATION TECHNICIAN) Glucose WB/POC 118(H) 70 - 106 mg/dL 09/24/2023 8:10 PM FIELD INSTALLATION TECHNICIAN [facility] Specimen Type Cap Fingerstick 2023 8:10 PM FIELD INSTALLATION TECHNICIAN [facility] Blood BLOOD SPECIMEN / Unknown 09/24/2023 6:06 PM FIELD INSTALLATION TECHNICIAN 09/24/2023 8:10 PM FIELD INSTALLATION TECHNICIAN Bryant Jones MD LAB - POINT OF CARE ORDERABLES [facility] [address] [place] [address] * CT LOWER EXT RIGHT W CONTRAST (09/24/2023 2:41 PM FIELD INSTALLATION TECHNICIAN) Anatomical Region Laterality Modality Lower Extremity Computed Tomogra phy 09/24/2023 2:53 PM FIELD INSTALLATION TECHNICIAN Impressions 09/24/2023 2:57 PM FIELD INSTALLATION TECHNICIAN IMPRESSION: Fluid or soft tissue thickening lateral to the right greater trochanter without rim-enhancing fluid collection. > Interpreting Provider: Leelee Kramer MD on 09/24/2023 2:57 PM Narrative 09/24/2023 2:57 PM FIELD INSTALLATION TECHNICIAN PROCEDURE: ??CT LOWER EXT RIGHT W CONTRAST [...] RIGHT VENOUS DUPLEX LE (09/24/2023 1:37 PM FIELD INSTALLATION TECHNICIAN) Anatomical Region Laterality Modality Lower Extremity Ultrasound 09/24/2023 3:44 PM FIELD INSTALLATION TECHNICIAN Narrative Procedure Note Antonio Gillette MD - 09/24/2023 [place] [address] Lower Extremity Venous Ultrasound Report Pat.Name: TAYLOR RUTLEDGE Zoey.ID: [id number] .Date: 09/24/2023 Refer.MD: Drew Lerma Exam Time: 3:44:00 PM Study Type:LE Venous Age: 9 1965,58Y Sex: MALE Sonogrphr: Cheryl Gaines RVT Pat. Stat.:Inpatient ICD - 9: M25.551 Reason for Study: Pain -Leg, right Procedures: Lower Extremity Venous - Right Race: 1 Visit ID: [id number] ++++++++++++++++++++++++++++++++++++ SUMMARY: ++++++++++++++++++++++++++++++++++++ Technically difficult study. No [...] 09/24/2023 01:53 PM Antonio Antoine MD Drew John Maria Guadalupe DO VASCULAR LAB OR DERABLES * XR FEMUR TRAUMA 2 VW RIGHT (09/24/2023 11:23 AM FIELD INSTALLATION TECHNICIAN) Anatomical Region Laterality Modality Lower Extremity Radiographic Sabi ging 09/24/2023 11:3 1 AM FIELD INSTALLATION TECHNICIAN Narrative 09/24/2023 11:31 AM FIELD INSTALLATION TECHNICIAN PROCEDURE: ??XR FEMUR RIGHT 2VW, DATE/TIME OF EXAM: ??09/24/2023 11:24 AM, LOCATION ??[facility] INDICATION: M25.551: Pain in right hip Right [...] DATE/TIME OF EXAM: 09/24/2023 11:24 AM, LOCATION [facility] INDICATION: M25.551: Pain in right hip Right [...] PELVIS 1 OR 2VW (09/24/2023 11:23 AM FIELD INSTALLATION TECHNICIAN) Anatomical Region Laterality Modality Pelvis Radiographic Sabi ging 09/24/2023 11:3 0 AM FIELD INSTALLATION TECHNICIAN Narrative 09/24/2023 11:31 AM FIELD INSTALLATION TECHNICIAN PROCEDURE: ??XR PELVIS 1 OR 2VW, DATE/TIME OF EXAM: ??09/24/2023 11:23 AM, LOCATION ??[facility] INDICATION: M25.551: Pain in right hip AP [...] DATE/TIME OF EXAM: 09/24/2023 11:23 AM, LOCATION [facility] INDICATION: M25.551: Pain in right hip AP [...] * (ABNORMAL) C-REACTIVE PROTEIN (09/24/2023 10:58 AM FIELD INSTALLATION TECHNICIAN) [facility] C-Reactive Protein 5.64(H) <=0.50 mg/dL 09/24/2023 12:23 PM FIELD INSTALLATION TECHNICIAN [facility] Blood BLOOD SPECIMEN / Unknown Venipuncture / Unknown 09/24/2023 10:58 AM FIELD INSTALLATION TECHNICIAN 09/24/2023 10:58 AM FIELD INSTALLATION TECHNICIAN Drew Lerma LAB - CHEMISTRY ORDERABLES Performing Organization Address [facility]/ZIP Co de Phone Number [facility] [address] [place] [phone] * (ABNORMAL) ERYTHROCYTE SEDIMENTATION RATE (09/24/2023 10:58 AM FIELD INSTALLATION TECHNICIAN) [facility] Erythrocyte Sedimentation Rate Automated 50(H) 0 - 20 MM/HR 09/24/2023 12:38 PM [facility] Blood BLOOD SPECIMEN / Unknown Venipuncture / Unknown 09/24/2023 10:58 AM FIELD INSTALLATION TECHNICIAN 09/24/2023 10:58 AM FIELD INSTALLATION TECHNICIAN Drew Lerma DO LAB - HEMATOLOG Y ORDERABLES Performing Organization Address [facility] Co de Phone Number [facility] [address] [place] [address] * (ABNORMAL) DIFFERENTIAL MANUAL (09/24/2023 10:58 AM FIELD INSTALLATION TECHNICIAN) [facility] Neutrophil % 82(H) 41 - 74 % 09/24/2023 11:46 AM FIELD INSTALLATION TECHNICIAN [facility] Lymphocyte % 7(L) 17 - 47 % 09/24/2023 11:46 AM [facility] Monocyte % 11 3 - 11 % 09/24/2023 11:46 AM [facility] Neutrophil Absolute 9.68(H) 1.60 - 7.50 x10E9/L 09/24/2023 11:46 AM [facility] Lymphocyte Absolute 0.83(L) 1.00 - 4.40 x10E9/L 09/24/2023 11:46 AM [facility] Monocyte Absolute 1.30(H) 0.15 - 1.00 x10E9/L 09/24/2023 11:46 AM [facility] RBC Morphology NORMAL 09/24/2023 11:46 AM [facility] Blood BLOOD SPECIMEN / Unknown Venipuncture / Unknown 09/24/2023 10:58 AM FIELD INSTALLATION TECHNICIAN 09/24/2023 10:58 AM [facility] Kip ALFREDO LAB - HEMATOLOGY OR DERABLES Performing Organization Address [facility] Co de Phone Number [facility] [address] [place], [place] [phone] * (ABNORMAL) BASIC METABOLIC PANEL (CALCIUM TOTAL) (09/24/2023 10:58 AM [facility]) [facility] Signature Glucose 178(H) 70 - 105 mg/dL 09/24/2023 11:13 AM [facility] Sodium 137 136 - 145 mmol/L 09/24/2023 11:13 AM [facility] Potassium 4.2 3.5 - 5.1 mmol/L 09/24/2023 11:13 AM [facility] Chloride 105 98 - 107 mmol/L 09/24/2023 11:13 AM [facility] CO2 23 22 - 29 mmol/L 09/24/2023 11:13 AM [facility] Calcium 9.4 8.4 - 10.4 mg/dL 09/24/2023 11:13 AM [facility] Anion Gap 9 6 - 16 mmol/L 09/24/2023 11:13 AM [facility] BUN 14 7 - 26 mg/dL 09/24/2023 11:13 AM [facility] Creatinine 0.90 0.72 - 1.25 mg/dL 09/24/2023 11:13 AM [facility] eGFR by CKD-EPI >90 >=90 mL/min/1.7 3 m2 09/24/2023 11:13 AM [facility] Blood BLOOD SPECIMEN / Unknown Venipuncture / Unknown 09/24/2023 10:58 AM FIELD INSTALLATION TECHNICIAN 09/24/2023 10:58 AM FIELD INSTALLATION TECHNICIAN Drew Lerma DO LAB - CHEMISTRY ORDERABLES Performing Organization Address [facility]/ZIP Co de Phone Number [facility] [address] [place] [phone] * (ABNORMAL) CBC W AUTO DIFFERENTIAL (09/24/2023 10:58 AM [facility]) [facility] Signature WBC 11.8(H) 4.0 - 10.7 x10E9/L 09/24/2023 11:47 AM [facility] RBC Count 4.15(L) 4.30 - 5.80 x10E12/L 09/24/2023 11:47 AM [facility] Hemoglobin 12.6(L) 13.3 - 17.5 g/dL 09/24/2023 11:47 AM [facility] Hematocrit 38.9 38.7 - 51.1 % 09/24/2023 11:47 AM [facility] MCV 93.7 80.0 - 98.0 fL 09/24/2023 11:47 AM [facility] MCH 30.4 26.7 - 33.6 pg 09/24/2023 11:47 AM [facility] MCHC 32.4 31.7 - 36.3 g/dL 09/24/2023 11:47 AM [facility] RDW-CV 13.2 11.3 - 14.8 % 09/24/2023 11:47 AM [facility] Platelet Count 194 150 - 420 x10E9/L 09/24/2023 11:47 AM [facility] MPV 9.1 7.8 - 11.4 fL 09/24/2023 11:47 AM [facility] Blood BLOOD SPECIMEN / Unknown Venipuncture / Unknown 09/24/2023 10:58 AM FIELD INSTALLATION TECHNICIAN 09/24/2023 10:58 AM [facility] Kip ALFREDO LAB - HEMATOLOGY OR DERABLES [facility] [address] [place] [address] documented in this encounter Visit Diagnoses Diagnosis Infection of prosthetic joint, initial encounter (HCC)- Primary Pain of right hip Inability to ambulate due to hip Difficulty in walking Diagnosis unknown Other unknown and unspecified cause of morbidity or mortality Inability to ambulate due to hip Difficulty in walking Pain of right hip Diagnosis unknown Other unknown and unspecified cause of morbidity or mortality documented in this encounter Administered Medications Inactive Administered Medications - up to 3 most recent administrations Medication Order MAR Action Action Date Dose Rate Site 0.9% NaCl injection 1-10 mL 1-10 mL, Intracatheter, PRN, Other, peripheral line flush, Starting on Sun09/27/23 at 1330, Until Sun10/04/23 at 1244, Flush peripheral IV catheter with 1-10 mL of normal saline before and after medications and prn to clear blood from the line or to verify patency. $ Given 09/29/2023 6:13 PM FIELD INSTALLATION TECHNICIAN 10 mL 0.9% NaCl injection 1-10 mL 1-10 mL, Intracatheter, PRN, Other, peripheral line flush, Starting on Sun09/24/23 at 1625, Until Sun10/04/23 at 1244, Flush peripheral IV catheter with 1-10 mL of normal saline before and after medications and prn to clear blood from the line or to verify patency. $ Given 09/24/2023 7:38 PM FIELD INSTALLATION TECHNICIAN 10 mL 0.9% NaCl injection 10-40 mL 10-40 mL, Intracatheter, EVERY 8 HOURS, First dose on Sun10/03/23 at 1545, Until Discontinued, Flush each lumen of PICC with 10ml NS IVP every 8 hours (regardless of continuous IV infusion). Flushing may be contraindicated if concentrated drips are infusing. $ Given 10/04/2023 3:51 AM FIELD INSTALLATION TECHNICIAN 10 mL 0.9% NaCl injection 10-40 mL [...] 8 hours. $ Given 10/01/2023 7:50 AM FIELD INSTALLATION TECHNICIAN 3 mL $ Given 09/30/2023 11:23 PM FIELD INSTALLATION TECHNICIAN 3 mL $ Given 09/30/2023 12:06 PM FIELD INSTALLATION TECHNICIAN 3 mL 0.9% NaCl injection 3 mL 3 mL, Intracatheter, EVERY 8 HOURS, First dose on Sun09/24/23 at 1700, Until Discontinued, Flush peripheral IV catheter with 3 mL of normal saline every 8 hours. $ Given 10/03/2023 8:08 PM FIELD INSTALLATION TECHNICIAN 3 mL $ Given 10/03/2023 12:06 PM FIELD INSTALLATION TECHNICIAN 3 mL $ Given 10/01/2023 10:10 PM FIELD INSTALLATION TECHNICIAN 3 mL 0.9% NaCl irrigation 1,000 mL with povidone-iodine (Betadine) 35 mL irrigation PRN, Starting on Sun10/02/23 at 1506, Until Sun10/02/23 at 1620, Intra-op $ Given 10/02/2023 3:06 PM FIELD INSTALLATION TECHNICIAN 1,035 mL Operative Site 0.9% NaCl irrigation solution PRN, Starting on Sun10/02/23 at 1505, Until Sun10/02/23 at 1620, Intra-op $ Given 10/02/2023 3:05 PM FIELD INSTALLATION TECHNICIAN 1,000 mL Operative Site acetaminophen (Tylenol) tablet 650 mg 650 mg, Oral, EVERY 4 HOURS PRN, Fever, For temperature GREATER than 101 , Starting on Sun09/24/23 at 1626, Until Hetal 10/04/23 at 1244, Patient preference for lesser PRN pain meds may be honored when the patient requests a less strong medication, a lower dose, or a less intrusive route of administration when the lesser drug, dose and route have been ordered for the patient. This patient request must be documented in the MAR. $ Given 09/26/2023 8:23 PM FIELD INSTALLATION TECHNICIAN 650 mg ALPRAZolam (Xanax) tablet 0.5 mg 0.5 mg, Oral, 3 TIMES DAILY PRN, Anxiety, Starting on 09/29/23 at 1806, Until Hetal 10/04/23 at 1244 $ Given 10/03/2023 8:19 PM FIELD INSTALLATION TECHNICIAN 0.5 mg $ Given 10/02/2023 9:40 PM FIELD INSTALLATION TECHNICIAN 0.5 mg $ Given 10/02/2023 1:50 AM FIELD INSTALLATION TECHNICIAN 0.5 mg amLODIPine (Norvasc) tablet 10 mg 10 mg, Oral, DAILY, First dose (after last modification) on Sun09/25/23 at 0900, Until Discontinued $ Given 10/04/2023 8:28 AM FIELD INSTALLATION TECHNICIAN 10 mg $ Given 10/03/2023 8:14 AM FIELD INSTALLATION TECHNICIAN 10 mg $ Given 10/02/2023 8:07 AM FIELD INSTALLATION TECHNICIAN 10 mg bisacodyl (Dulcolax) suppository 10 mg 10 mg, Rectal, DAILY PRN, Constipation, Starting on Sun09/27/23 at 1056, Until Sun10/04/23 at 1244 carvedilol (Coreg) tablet 25 mg 25 mg, Oral, 2 TIMES DAILY, First dose on Sun09/24/23 at 2100, Until Discontinued, Take with food $ Given 10/04/2023 8:27 AM FIELD INSTALLATION TECHNICIAN 25 mg $ Given 10/03/2023 8:11 PM FIELD INSTALLATION TECHNICIAN 25 mg $ Given 10/03/2023 8:14 AM FIELD INSTALLATION TECHNICIAN 25 mg ceFAZolin (Ancef) 2 g in 0.9% NaCl IV 50 mL IVPB 2 g, at 100 mL/hr, Intravenous, EVERY 8 HOURS, First dose on Sun09/27/23 at 1045, Until Discontinued, Indication for anti-infective therapy: Documented infection, Site of anti-infective therapy: Bone/Joint $ New Bag/Syringe 10/04/2023 3:55 AM FIELD INSTALLATION TECHNICIAN 2 g 100 mL/hr $ New Bag/Syringe 10/03/2023 8:13 PM FIELD INSTALLATION TECHNICIAN 2 g 100 mL /hr $ New Bag/Syringe 10/03/2023 12:05 PM FIELD INSTALLATION TECHNICIAN 2 g 100 m L/hr cyclobenzaprine (Flexeril) tablet 10 mg 10 mg, Oral, 2 TIMES DAILY, First dose on Sun09/24/23 at 2100, Until Discontinued $ Given 10/04/2023 8:28 AM FIELD INSTALLATION TECHNICIAN 10 m g $ Given 10/03/2023 8:11 PM FIELD INSTALLATION TECHNICIAN 10 mg $ Given 10/03/2023 8:14 AM FIELD INSTALLATION TECHNICIAN 10 mg dextrose 10 % IV bolus [...] IV STAT NOTIFY PROVIDER OF HYPOGLYCEMIC EVENT. docusate sodium (Colace) capsule 100 mg 100 mg, Oral, 2 TIMES DAILY, First dose on Sun09/24/23 at 2100, Until Discontinued $ Given 10/04/2023 8:28 AM FIELD INSTALLATION TECHNICIAN 100 mg $ Given 10/03/2023 8:11 PM FIELD INSTALLATION TECHNICIAN 100 mg $ Given 10/03/2023 8:14 AM FIELD INSTALLATION TECHNICIAN 100 mg enoxaparin (Lovenox) injection 40 mg 40 mg, Subcutaneous, DAILY, First dose on Sun10/03/23 at 1000, Until Discontinued, (for prefilled syringes) do not expel air bubble from the syringe prior to the injection Remind Patient to not rub injection site. Could cause hematoma. $ Given 10/04/2023 8:27 AM FIELD INSTALLATION TECHNICIAN 40 mg Ab dominal Tissue $ Given 10/03/2023 10:10 AM FIELD INSTALLATION TECHNICIAN 40 mg A bdominal Tissue fentaNYL (PF) (Sublimaze) injection 25 mcg 25 mcg, Intravenous, EVERY 3 MIN PRN, Mild Pain, 4 doses, Starting on Sun10/02/23 at 1628, Until Sun10/04/23 at 1244, Maximum total of 4 doses. [...] other medications. $ Given 10/04/2023 8:28 AM FIELD INSTALLATION TECHNICIAN 325 mg $ Given 10/03/2023 8:14 AM FIELD INSTALLATION TECHNICIAN 325 mg $ Given 10/02/2023 8:07 AM FIELD INSTALLATION TECHNICIAN 325 mg glucagon (Glucagen) injection 1 mg [...] MAR., PACU $ Given 09/27/2023 4:40 PM FIELD INSTALLATION TECHNICIAN 0.5 mg HYDROmorphone (Dilaudid) injection 0.5 mg [...] MAR., PACU $ Given 10/03/2023 6:38 AM FIELD INSTALLATION TECHNICIAN 0.5 mg $ Given 10/02/2023 5:02 PM FIELD INSTALLATION TECHNICIAN 0.5 mg $ Given 10/02/2023 4:30 PM FIELD INSTALLATION TECHNICIAN 0.5 mg HYDROmorphone (Dilaudid) injection 0.6 mg [...] the MAR. $ Given 10/03/2023 10:14 AM FIELD INSTALLATION TECHNICIAN 0.6 mg $ Given 10/02/2023 6:10 PM FIELD INSTALLATION TECHNICIAN 0.6 mg $ Given 09/30/2023 9:33 PM FIELD INSTALLATION TECHNICIAN 0.6 mg insulin aspart (NovoLOG) pen 0-4 [...] notify physician $ Given 10/02/2023 9:43 PM FIELD INSTALLATION TECHNICIAN 2 Units Abdominal Tissue insulin aspart (NovoLOG) [...] same time. $ Given 10/01/2023 12:12 PM FIELD INSTALLATION TECHNICIAN 2 Units Abdominal Tissue $ Given 09/30/2023 12:04 PM FIELD INSTALLATION TECHNICIAN 2 Units A bd Left Upper Quadrant $ Given 09/27/2023 6:13 PM FIELD INSTALLATION TECHNICIAN 2 Units Ab dominal Tissue insulin regular [...] at 1244 $ Given 09/28/2023 8:57 AM FIELD INSTALLATION TECHNICIAN 30 g naloxone (Narcan) injection 0.04 mg 0.04 mg, [...] dose, Starting on Sun09/27/23 at 1214, Until Sun10/04/23 at 1244, First choice, PACU ondansetron (Zofran) injection 4 mg 4 mg, Intravenous, ONCE PRN, Nausea/Vomiting, 1 dose, Starting on Sun10/02/23 at 1628, Until Sun10/04/23 at 1244, First choice, PACU ondansetron (Zofran) injection 8 mg 8 mg, Intravenous, ONCE PRN, Nausea/Vomiting, 1 dose, Starting on Sun09/27/23 at 1214, Until Sun10/04/23 at 1244, Second choice, use if first [...] the MAR. $ Given 10/04/2023 8:27 AM FIELD INSTALLATION TECHNICIAN 1 tablet $ Given 10/04/2023 3:50 AM FIELD INSTALLATION TECHNICIAN 1 tablet $ Given 10/03/2023 10:53 PM FIELD INSTALLATION TECHNICIAN 1 tablet pantoprazole EC (Protonix) tablet 40 mg 40 mg, Oral, DAILY, First dose on Sun09/24/23 at 1645, Until Discontinued, Do not crush, chew, or cut in half. $ Given 10/04/2023 8:28 AM FIELD INSTALLATION TECHNICIAN 40 mg $ Given 10/03/2023 8:14 AM FIELD INSTALLATION TECHNICIAN 40 mg $ Given 10/02/2023 8:07 AM FIELD INSTALLATION TECHNICIAN 40 mg pregabalin (Lyrica) capsule 50 mg 50 mg, Oral, 2 TIMES DAILY, First dose on Sun09/24/23 at 2100, Until Discontinued $ Given 10/04/2023 8:28 AM FIELD INSTALLATION TECHNICIAN 50 m g $ Given 10/03/2023 8:11 PM FIELD INSTALLATION TECHNICIAN 50 mg $ Given 10/03/2023 8:14 AM FIELD INSTALLATION TECHNICIAN 50 mg prochlorperazine (Compazine) injection 10 mg [...] Until Discontinued $ Given 10/04/2023 5:08 AM FIELD INSTALLATION TECHNICIAN 40 m g $ Given 10/03/2023 6:38 AM FIELD INSTALLATION TECHNICIAN 40 mg $ Given 10/01/2023 10:37 AM FIELD INSTALLATION TECHNICIAN 40 mg sertraline (Zoloft) tablet 200 mg 200 mg, Oral, DAILY, First dose (after last modification) on Sun09/24/23 at 1830, Until Discontinued, Avoid concurrent administration with grapefruit juice $ Given 10/04/2023 8:27 AM FIELD INSTALLATION TECHNICIAN 200 mg $ Given 10/03/2023 8:14 AM FIELD INSTALLATION TECHNICIAN 200 mg $ Given 10/02/2023 8:07 AM FIELD INSTALLATION TECHNICIAN 200 mg vancomycin (Vancocin) 1 g in 0.9% NaCl irrigation 3,000 mL irrigation PRN, Starting on Sun10/02/23 at 1506, Until Sun10/02/23 at 1620, Intra-op $ Given 10/02/2023 3:06 PM FIELD INSTALLATION TECHNICIAN 3,000 mL Ope rative Site vancomycin (Vancocin) injection PRN, Starting on Sun10/02/23 at 1527, Until Sun10/02/23 at 1620, Intra-op $ Given 10/02/2023 3:27 PM FIELD INSTALLATION TECHNICIAN 1,000 mg Ope rative Site documented in this encounter Active and Recently Administered Medications Times are shown in FIELD INSTALLATION TECHNICIAN. Scheduled Medication Order 10/02/2023 10/03/2023 10/04/2023 0.9% [...] 0807 ($ Given - Provider: Bailey Jones RN)2141 ($ Given - Provider: Chacho Tian RN) [...] ANA) 0828 ($ Given - Provider: Mulu Dickens RN) insulin aspart (NovoLOG) pen 0-4 Units 0-4 [...] RN) 2019 ($ Given - Provider: Meenakshi Manzanares RN) bisacodyl (Dulcolax) suppository 10 mg 10 [...] portion documented in this encounter Care Teams Business Process Architect Relationship Specialty Start Date End Date Faisal Richardson DO [address] [place] [id number] PCP - General Family Medicine 11/27/22 documented as of this encounter
--- OUTSIDE RECORDS SUMMARY | 2024-07-28 00:58 | XMS_ITS | Encounter Summary ---
Author Organization [facility] Address [address] [place] [address] Care Team Providers Care [employer] Laboratory Director Name Role Phone Faisal Richardson DO Primary Care Provider [phone] Reason for Visit * Auth/Cert (Routine) Specialty Diagnoses / Procedures Referred By Contac t Referred To Contact Referral ID Status Reason Start Date Expiration Date Visits Re quested Visits Authorized [id number] 1 1 Encounter Details Date Type Department Care Team (Late st Contact Info) Description 10/02/2023 1:53 PM INSTALLATION TECHNICIAN Anesthesia Event [facility] [address] [place] [address] Olya Olguin MD [address] [place] [id number] Eusebio Lima, TECHNICIAN CHEMICAL CLEANING-DECORATING INSTRUCTOR [address] [place] [address] Anesthesia Record Procedure Summary Procedure Name Responsible Anesthesiologist Anesthesia Start Time Anesthesia Stop Time IRRIGATION AND DEBRIDEMENT HIP -- RIGHT HIP, DELAYED PRIMARY CLOSURE OF COMPLEX WOUND, REMOVAL OF ANTIBIOTIC BEADS, REVISION OF BOTH HIP COMPONENTS -- RIGHT HIP, WOUND VAC APPLICATION (Right: Hip) Olya Olguin MD 10/02/23 1353 10/02/23 1623 Events Date Time Event Comment 10/02/2023 1353 An Start 1354 An Start Data 1357 PT Reassessment 1403 Induction 1404 An Intubation 1419 Stop ABX 1427 Timeout Anesthesia part icipated in timeout at the time documented in the record by nursing. 1616 Extubation 1618 an stop data 1618 Electnc Sig This record is electronically signed by the providers listed under staff. 1618 ANPTO2 1623 An Stop Meds Name Total midazolam 2 mg/2mL injection 2 mg fentaNYL 100 mcg/2 mL injection 100 mcg lidocaine 2% injection (20 mg/ml) 80 mg propofol 200mg/20mL injection 200 mg succinylcholine (ANECTINE) 100 mg/5 mL i njection 160 mg rocuronium 50mg/5mL injection 50 mg phenylephrine 1000 mcg/10mL injection 80 0 mcg dexamethasone 4 mg/ml injection 4 mg ondansetron 4 mg/2mL injection 4 mg sugammadex 200 mg/2 mL injection 300 mg esmolol 100 mg/10ml injection 30 mg ceFAZolin 1 g injection 3 g dexMEDETOmidine (PRECEDEX) 200 mcg/2ml i njection 40 mcg lactated ringers infusion 1,500 mL * Agents Name Exp. Sevoflurane O2 Air Insp. Sevoflurane N2O * Blood No blood administrations on file. Lines, Drains, and Airways Type Details Placement Removal Negative Pressure Wound Therapy 09/24/23; 2126; Right; Hip; 10/04/23; 174309/24/232126 by Felipe Haque RN 10/04/23 1744 by Generic, Auto Release Procedural Site (Incision) 09/27/23; 1116; Right; Hip; 10/04/23; 174309/27/23 111 by Zoe Walden 10/04/23 1744 by Generic, Auto Release Peripheral IV Date: 09/27/23; Time : 1724; Orientation: Anterior, Left 09/27/23 1724 by Chikis Negron RN 10/03/23 1526 by Angelika Ponce, ANA ETT Date: 10/02/23; Time : 1404; Placed By: Maisha De La Garza APRN-DECORATING INSTRUCTOR; Vent: mask not attempted; Induction: Modified Rapid Sequence; Blade Type: Video; Blade Size: 4; Laryngoscopy View: Grade 1 (full cords); Intubation Adjuncts: Stylet, Video Laryngoscope; Tube: Endotracheal Tube; Placement: Oral; Tube Type: Cuffed-inflated; Tube Size(mm): 7 MM; Depth of Insertion: 23 CM; Measured From: teeth; Attempts: 1; Cuff Infated: Air; Verified By: Direct visualization, Bilateral breath sounds, Chest Auscultation, CO2 Monitor; Reason: small mouth opening, obesity, other (comments) 10/02/23 1404 by Maisha De La Garza APRN-CRNA 10/02/23 1616 by Maisha De La Garza APRN-CRNA Peripheral IV Date: 10/02/23; Time : 1423; Orientation: Right, Lateral; Placed By: Angie de la garza CRNA 10/02/23 1423 by Maisha De La Garza APRN-CRNA 10/03/23 1519 by Angelika Ponce RN Procedural Site (Incision) 10/02/23; 1428; Right; Hip; 10/04/23; 1744 10/02/23 1428 by Layton Mcelroy RN 10/04/23 1744 by Generic, Auto Release Negative Pressure Wound Therapy 10/02/23; 1537; Right; Hip; 10/04/23; 1744 10/02/23 1537 by Layton Mcelroy RN 10/04/23 1744 by Generic, Auto Release documented in this encounter Social History Tobacco [...] and heating? Not hard at all 12/14/2022 [facility] [place] of Occupat ional Health - Occupational Stress [...] place to sleep or slept in a usp (including now)? No 12/14/2022 Sex and Gender [...] No 12/14/2022 documented as of this encounter Progress Notes * Olya Olguin MD - 10/03/2023 5:40 AM CST ANESTHESIA POSTOP EVALUATION NOTE Procedure: IRRIGATION AND DEBRIDEMENT HIP -- RIGHT HIP, DELAYED PRIMARY CLOSURE OF COMPLEX WOUND, REMOVAL OF ANTIBIOTIC BEADS, REVISION OF BOTH HIP COMPONENTS -- RIGHT HIP, WOUND VAC APPLICATION (Right: Hip) Jose Rutledge is a 58 year old male Patient Vitals for the past 6 hrs: BP Temp Pulse Resp SpO2 10/03/23 0044 128/69 98.7 ??F (37.1 ??C) 71 18 92 % 10/03/23 0301 133/80 98.8 ??F (37.1 ??C) 65 18 95 % Anesthesia Type: general ETT Pre-op Diagnosis Codes: * Diagnosis unknown [R69] Mental Status: awake, alert and sufficiently recovered from acute administration of anesthesia to participate in the evaluation Neuro Status: No numbness, tingling or visual disturbances Respiratory Function: natural Cardiac Function: stable Postop Pain: acceptable to the patient Postop Hydration: adequate Postop Nausea: none Assessment: no apparent anesthetic complications Patient Disposition: Release from Anesthesia Care NOTABLE EVENTS: No notable events documented. ALLATION TECHNICIAN * Eusebio Lima APRN-DECORATING INSTRUCTOR - 10/01/2023 7:58 AM CST ANESTHESIA PREOPERATIVE EVALUATION NOTE Procedure: IRRIGATION AND DEBRIDEMENT HIP, WOUND CLOSURE VERSUS WOUND VAC EXCHANGE (Right: Hip) NPO status: *Other (his diet order is still reg diet, and he has had drinks throughout the night) (10/01/2023 2:23 AM) Vitals: No data found. LMP: No LMP for male patient. OB Status: unknown ANESTHESIA PRE-EVALUATION NOTE History of Present Illness: Moderate - well controlled asymptomatic NATALY on cpap Previous Airway Management: ETT Placed: Intubation Adjuncts: Videolarygoscope ETT Size: 8 Blade Type: Video Blade Size: 4 GradeGrade: 1 Mask Airway: Not Attempted The patient is a current non-smoker. Physical Exam: Orientation X3 Airway/Mallampati Score: II Mouth Opening Distance: 3 fingerwidths Neck ROM: full TM Distance: > 3 FB Teeth: normal Heart: normal - S1 S2 Lungs: clear to ausculation bilaterally Review of Systems: History of anesthetic complications: No Sleep Apnea Risk: Yes, CPAP - compliant Malignant Hyperthermia: No GERD: No Poor Exercise Tolerance: No Recent Chest Pain: No Shortness of Breath: No AICD/Pacemaker: No Renal Disease: No Diagnostic Tests: ECG(s) reviewed: Yes Echo(s) reviewed: Yes. Lab(s) reviewed: Yes. ANESTHESIA PLAN ASA Score: 3 (HTN, mod , NATALY, DM) NPO Status: Patient instructed to be NPO after midnight Anesthesia Plan: general Planned Induction: intravenous Planned Postop Destination: PACU Anesthetic plan was discussed with: patient Anesthetic Plan discussion was: Consented The patient's procedural Anesthetic Plan was discussed with the anesthesiologist. BMI, Height, Weight Tobacco History Estimated body mass index is 37.3 kg/m?? as calculated from the following: Height as of 09/24/23: 1.829 m (6'). Weight as of 09/24/23: 124.7 kg (275 lb). Social History Tobacco Use Smoking Status Never Smokeless Tobacco Never Alcohol History Drug History Social History Substance and Sexual Activity Alcohol Use Not Currently Social History Substance and Sexual Activity Drug Use No Outpatient Medications: Inpatient Medications: No outpatient medications have been marked as taking for the 10/02/23 encounter (Anesthesia Event) with Eusebio Lima APRN-CRNA. No current facility-administered medications for this visit. Facility-Administered Medications Ordered in Other Visits Medication Dose Last Admin ??? 0.9% NaCl 3 mL 3 mL at 10/01/23 0750 And ??? 0.9% NaCl 1-10 mL 10 mL at 09/29/23 1813 ??? 0.9% NaCl 3 mL 3 mL at 10/01/23 0751 And ??? 0.9% NaCl 1-10 mL 10 mL at 09/24/23 1938 ??? acetaminophen 650 mg 650 mg at 09/26/23 2023 ??? ALPRAZolam 0.5 mg 0.5 mg at 09/29/23 2227 ??? amLODIPine 10 mg 10 mg at 09/30/23 0806 ??? bisacodyl 10 mg ??? carvedilol 25 mg 25 mg at 09/30/232132 ??? ceFAZolin 2 g Stopped at 10/01/23 0227 ??? cyclobenzaprine 10 mg 10 mg at 09/30/232132 ??? dextrose IV for hypoglycemia 12.5 g Or ??? dextrose IV for hypoglycemia 25 g Or ??? glucagon 1 mg ??? docusate sodium 100 mg 100 mg at 09/30/23 0807 ??? enoxaparin 40 mg 40 mg at 09/30/23 0806 ??? fentaNYL (PF) 50 mcg ??? ferrous sulfate 325 mg 325 mg at 09/30/23 08 ??? glucose (Diabetic Use) gel ??? HYDROmorphone 0.2 mg ??? HYDROmorphone 0.5 mg 0.5 mg at 09/27/23 1640 ??? HYDROmorphone 0.6 mg 0.6 mg at 02/25/24 2133 ??? insulin aspart 0-4 Units ??? insulin aspart 0-6 Units 2 Units at 09/30/23 1204 ??? insulin regular (HumuLIN R; NovoLIN R) 100 units/mL subcutaneous injection 0-6 Units ??? lactulose 30 g 30 g at 09/28/23 0857 ??? naloxone 0.04 mg ??? naloxone 0.04 mg ??? ondansetron (disintegrating) 4 mg ??? ondansetron 4 mg ??? ondansetron 4 mg ??? ondansetron 8 mg ??? oxyCODONE-acetaminophen 1 tablet 1 tablet at 10/01/23 0200 ??? pantoprazole EC 40 mg 40 mg at 09/30/23 0806 ??? pregabalin 50 mg 50 mg at 09/30/23 2133 ??? prochlorperazine 10 mg ??? prochlorperazine 5 mg ??? prochlorperazine 5 mg ??? rosuvastatin 40 mg 40 mg at 09/30/23 0806 ??? sertraline 200 mg 200 mg at 09/30/23 08 Allergies: Allergies Allergen Reactions ??? Penicillins Angioedema Relevant Problems Cardiovascular (+) Mild coronary artery disease (+) Moderate aortic stenosis Problem List: Patient Active Problem List Diagnosis Date Noted ??? Inability to ambulate due to hip 09/24/2023 Priority: Not Prioritized ??? Pain of right hip 09/24/2023 Priority: Not Prioritized ??? Gastrointestinal hemorrhage, unspecified gastrointestinal hemorrhage type 12/14/2022 Priority: Not Prioritized ??? S/P total right hip arthroplasty 12/08/2022 Priority: Not Prioritized ??? Closed fracture of nasal bones 11/21/2022 Priority: Not Prioritized ??? Closed left maxillary fracture ([facility]) 11/21/2022 Priority: Not Prioritized ??? H/O ischemic vertebrobasilar artery brainstem stroke 11/21/2022 Priority: Not Prioritized ??? Moderate aortic stenosis 11/21/2022 Priority: Not Prioritized ??? Neuropathy 11/21/2022 Priority: Not Prioritized ??? Tinnitus 11/21/2022 Priority: Not Prioritized ??? Mild coronary artery disease 04/16/2020 Priority: Not Prioritized ??? AVD (aortic valve disease) 11/24/2017 Priority: Not Prioritized ??? GI (gastrointestinal bleed) 07/14/2014 Medical History: Past Medical History: Diagnosis Date ??? Aortic stenosis mod-sev on 2022 echo ??? CAD (coronary artery disease) ??? High blood pressure ??? LVH (left ventricular hypertrophy) ??? Mixed hyperlipidemia ??? Restless leg syndrome ??? Sleep apnea uses cpap ??? Stroke ([facility]) 2021 balance residual ??? Type 2 diabetes mellitus without complications ([facility]) Surgical History: Past Surgical History: Procedure Laterality Date ??? [...] Repair Right ??? SHOULDER ARTHROPLASTY, TOTAL Left RELATIONSHIP MANAGEMENT LEAD Status: No LMP for male patient. unknown OB History No obstetric history on file. Covid Vaccine: Lab Results: Recent Labs Base Name 10/01/23 0732 [id number] 115* SPECIMENTYPE Cap Fingerstick Recent Labs Component Name 09/25/23 0141 WBC 9.9 RBC 3.49* HCT 33.6* HGB 10.8* PLTCOUNT 165 MCV 96.3 MCH 30.9 MCHC 32.1 MPV 9.4 Recent Labs Component Name 09/25/23 0141 SODIUM 138 POTASSIUM 4.0 CALCIUM 8.6 CHLORIDE 106 CO2 22 GLUCOSE 182* BUN 14 CREATININE 0.88 No results found for requested labs within last 120 days. Recent Labs Result Component Current Result Albumin 2.3 (L) (09/30/2023) Alkaline Phosphatase 76 (09/30/2023) ALT 28 (09/30/2023) Anion Gap 10 (09/25/2023) AST 31 (09/30/2023) Bilirubin Total 0.5 (09/30/2023) eGFR by CKD-EPI >90 (09/25/2023) ALLATION TECHNICIAN documented in this encounter Procedure Notes * Maisha De La Garza APRN-CRNA - 10/02/2023 2:32 PM CSTAssociated Order(s): ETT Placement Endotracheal Tube Placement: Patient Location: OR. Intubation Event Date/Time: 10/02/2023 2:04 PM Procedure: intubation ([id number]). Procedure Section: Sedation: under general anesthesia. Indications for Airway Management: anesthesia Procedure pretreatments used? No Induction: modified rapid sequence Patient Position: sniffing Mask Ventilation: not attempted. Blade Type: Video [...] auscultation and CO2 monitor Tube secured with: adhesive tape. Dentition unchanged? Yes Difficult Airway? Yes. Technique: video laryngoscope Reason: small mouth, obesity and other - please comment (short, large neck. Significant tissue amount in airway and around glottic opening) Procedure Start Time: 10/02/2023 2:04 PM. Staff Section Anesthesia Provider: Maisha De La Garza APRN-CRNA, Performed the procedure ALLATION TECHNICIAN documented in this encounter Miscellaneous Notes * Anesthesia Transfer of Care - Maisha De La Garza, TECHNICIAN CHEMICAL CLEANING-DECORATING INSTRUCTOR - 10/02/2023 4:18 PM CST ANESTHESIA TRANSFER OF CARE NOTE Today's Date: 10/02/2023 Date of : 1965 Patient: Jose Rutledge Procedure(s): IRRIGATION AND DEBRIDEMENT HIP -- RIGHT HIP, DELAYED PRIMARY CLOSURE OF COMPLEX WOUND, REMOVAL OF ANTIBIOTIC BEADS, REVISION OF BOTH HIP COMPONENTS -- RIGHT HIP, WOUND VAC APPLICATION Surgeon(s): Primary: Torrey Lafleur MD Preop Diagnosis: Pre-op Diagnois: * Diagnosis unknown [R69] Pre-op Meds (From admission, onward) Start Stop Status Route Frequency Ordered 09/27/23 1330 0.9% NaCl injection 1-10 mL See Hyperspace for full Linked Orders Report. -- Dispensed IK PRN 09/27/23 1330 09/24/23 1625 0.9% NaCl injection 1-10 mL See Hyperspace for full Linked Orders Report. -- Dispensed IK PRN 09/24/23 1626 09/27/23 1400 0.9% NaCl injection 3 mL See Hyperspace for full Linked Orders Report. -- Dispensed IK EVERY 8 HOURS 09/27/23 1330 09/24/23 1700 0.9% NaCl injection 3 mL See Hyperspace for full Linked Orders Report. -- Dispensed IK EVERY 8 HOURS 09/24/23 1626 10/02/23 1506 0.9% NaCl irrigation 1,000 mL with povidone-iodine (Betadine) 35 mL irrigation -- Sent PRN 10/02/23 1506 10/02/23 1505 0.9% NaCl irrigation solution -- Sent PRN 10/02/23 1506 09/24/23 1626 acetaminophen (Tylenol) tablet 650 mg -- Dispensed PO EVERY 4 HOURS PRN 09/24/23 1626 09/29/23 1806 ALPRAZolam (Xanax) tablet 0.5 mg -- Dispensed PO 3 TIMES DAILY PRN 09/29/23 1806 09/25/23 0900 amLODIPine (Norvasc) tablet 10 mg Note to Pharmacy: OP sig: Take 1 (one) tablet by mouth once daily -- Dispensed PO DAILY 09/24/23 1614 09/27/23 1056 bisacodyl (Dulcolax) suppository 10 mg -- Verified RE DAILY PRN 09/27/23 1056 09/24/23 2100 carvedilol (Coreg) tablet 25 mg Note to Pharmacy: OP sig: Take 1 (one) tablet by mouth 2 times daily -- Dispensed PO 2 TIMES DAILY 09/24/23 1622 09/27/23 1045 ceFAZolin (Ancef) 2 g in 0.9% NaCl IV 50 mL IVPB -- Dispensed IV EVERY 8 HOURS 09/27/23 1002 10/02/23 1415 ceFAZolin (Ancef) injection -- Sent IV PRN 10/02/23 1417 09/24/23 2100 cyclobenzaprine (Flexeril) tablet 10 mg Note to Pharmacy: OP sig: Take 1 (one) tablet by mouth 2 times daily -- Dispensed PO 2 TIMES DAILY 09/24/23 1604 10/02/23 1418 dexAMETHasone (Decadron) injection -- Sent IV PRN 10/02/23 1418 10/02/23 1534 dexmedeTOMIDine (Precedex) injection -- Sent IV PRN 10/02/23 1534 09/24/23 1623 dextrose 10 % IV bolus See Hyperspace for full Linked Orders Report. -- Verified IV PRN 09/24/23 1624 09/24/23 1623 dextrose 10 % IV bolus See Hyperspace for full Linked Orders Report. -- Verified IV PRN 09/24/23 1624 09/24/23 2100 docusate sodium (Colace) capsule 100 mg Note to Pharmacy: OP sig: Take 100 mg by mouth 2 times daily -- Dispensed PO 2 TIMES DAILY 09/24/23 1604 10/02/23 1400 esmolol (Brevibloc) injection -- Sent IV PRN 10/02/23 1434 10/02/23 1357 fentaNYL (PF) (Sublimaze) injection -- Sent IV PRN 10/02/23 1434 09/27/23 1214 fentaNYL (PF) (Sublimaze) injection 50 mcg -- Verified IV EVERY 3 MIN PRN 09/27/23 1214 09/24/23 1645 ferrous sulfate tablet 325 mg Note to Pharmacy: OP sig: Take 1 (one) tablet by mouth once daily -- Dispensed PO DAILY 09/24/23 1604 09/24/23 1623 glucagon (Glucagen) injection 1 mg See Tadpace for full Linked Orders Report. -- Verified SC PRN 09/24/23 1624 09/24/23 1623 glucose (Diabetic Use) oral gel -- Verified PO PRN 09/24/23 1624 09/27/23 1214 HYDROmorphone (Dilaudid) injection 0.2 mg -- Verified IV EVERY 15 MIN PRN 09/27/23 1214 09/27/23 1214 HYDROmorphone (Dilaudid) injection 0.5 mg -- Dispensed IV EVERY 5 MIN PRN 09/27/23 1214 09/25/23 0958 HYDROmorphone (Dilaudid) injection 0.6 mg -- Dispensed IV EVERY 3 HOURS PRN 09/25/23 0958 09/24/23 2100 insulin aspart (NovoLOG) pen 0-4 Units -- Verified SC AT BEDTIME 09/24/23 1624 09/24/23 1800 insulin aspart (NovoLOG) pen 0-6 Units -- Dispensed SC 3 TIMES DAILY WITH MEALS 09/24/23 1624 09/27/23 1214 insulin regular human (HumuLIN R; NovoLIN R) 100 UNIT/ML injection 0-6 Units -- Verified IV PRN 09/27/23 1214 10/02/23 0930 lactated ringers infusion 10/02/23 1529 Dispensed IV CONTINUOUS 10/02/23 0859 10/02/23 1350 lactated ringers infusion -- Sent IV CONTINUOUS PRN 10/02/23 1428 09/27/23 1056 lactulose (Chronulac) solution 30 g -- Dispensed PO DAILY PRN 09/27/23 1056 10/02/23 1359 lidocaine HCl (PF) (Xylocaine MPF) 2 % injection -- Sent IV PRN 10/02/23 1434 10/02/23 1354 midazolam (Versed) injection -- Sent IV PRN 10/02/23 1434 09/24/23 2141 naloxone (Narcan) injection 0.04 mg -- Verified IV POST-OP MULTIPLE 09/24/23 2141 09/27/23 1214 naloxone (Narcan) injection 0.04 mg -- Verified IV POST-OP MULTIPLE 09/27/23 1214 09/24/23 1626 ondansetron (disintegrating) (Zofran ODT) tablet 4 mg -- Verified PO EVERY 6 HOURS PRN 09/24/23 1626 10/02/23 1418 ondansetron (Zofran) injection -- Sent IV PRN 10/02/23 1418 09/24/23 1626 ondansetron (Zofran) injection 4 mg -- Verified IV EVERY 6 HOURS PRN 09/24/23 1626 09/27/23 1214 ondansetron (Zofran) injection 4 mg -- Verified IV ONCE PRN 09/27/23 1214 09/27/23 1214 ondansetron (Zofran) injection 8 mg -- Verified IV ONCE PRN 09/27/23 1214 09/25/23 0949 oxyCODONE-acetaminophen (Percocet) 5-325 MG tablet 1 tablet -- Dispensed PO EVERY 4 HOURS PRN 09/25/23 0949 09/24/23 1645 pantoprazole EC (Protonix) tablet 40 mg Note to Pharmacy: OP sig: Take 1 (one) tablet by mouth once daily Reasons: Stomach Ulcer -- Dispensed PO DAILY 09/24/23 1604 10/02/23 1417 phenylephrine 100 mcg/mL injection -- Sent IV PRN 10/02/23 1418 09/24/23 2100 pregabalin (Lyrica) capsule 50 mg Note to Pharmacy: OP sig: Take 1 (one) capsule by mouth 2 times daily -- Dispensed PO 2 TIMES DAILY 09/24/23 1618 09/27/23 1214 prochlorperazine (Compazine) injection 10 mg -- Verified IV ONCE PRN 09/27/23 1214 09/24/23 1626 prochlorperazine (Compazine) injection 5 mg -- Verified IV EVERY 6 HOURS PRN 09/24/23 1626 09/24/23 1626 prochlorperazine (Compazine) injection 5 mg -- Verified IM EVERY 6 HOURS PRN 09/24/23 1626 10/02/23 1403 propofol (Diprivan) injection -- Sent IV PRN 10/02/23 1434 10/02/23 1413 rocuronium (Zemuron) injection -- Sent IV PRN 10/02/23 1413 09/24/23 1645 rosuvastatin (Crestor) tablet 40 mg Note to Pharmacy: OP sig: Take 2 (two) tablets by mouth every morning -- Dispensed PO EVERY MORNING 09/24/23 1604 09/24/23 1830 sertraline (Zoloft) tablet 200 mg Note to Pharmacy: OP sig: Take 1 (one) tablet by mouth once daily -- Dispensed PO DAILY 09/24/23 1614 10/02/23 1403 succinylcholine (Anectine) injection -- Sent IV PRN 10/02/23 1434 10/02/23 1552 sugammadex (Bridion) injection -- Sent IV PRN 10/02/23 1552 10/02/23 1506 vancomycin (Vancocin) 1 g in 0.9% NaCl irrigation 3,000 mL irrigation -- Sent PRN 10/02/23 1506 10/02/23 1527 vancomycin (Vancocin) injection -- Sent PRN 10/02/23 1528 Post-op Diagnosis: * Diagnosis unknown [R69] . Allergies Allergen Reactions ??? Penicillins Angioedema Vitals: No data found. Lines, Drains, and Airways Type Details Placement Removal Negative Pressure Wound Therapy 09/24/23; 2126; Right; Hip 09/24/232126 by Felipe Haque RN Peripheral IV Date: 09/27/23; Time: 1724; Orientation: Anterior, Left; Location: Forearm; Gauge: 22Gauge 09/27/231723 by Chikis Negron RN ETT Date: 10/02/23; Time: 1404; Placed By: Maisha De La Garza APRN-DECORATING INSTRUCTOR; Vent: mask not attempted; Induction: Modified Rapid Sequence; Blade Type: Video; Blade Size: 4; Laryngoscopy View: Grade 1 (full cords); Intubation Adjuncts: Stylet, Video Laryngoscope; Tube: Endotracheal Tube; Placement: Oral; Tube Type: Cuffed- inflated; Tube Size(mm): 7 MM; Depth of Insertion: 23 CM; Measured From: teeth; Attempts: 1; Cuff Infated: Air; Verified By: Direct visualization, Bilateral breath sounds, Chest Auscultation, CO2 Monitor; Reason: small mouth opening, obesity, other (comments) 10/02/23 1404 by Maisha De La Garza APRN-CRNA 10/02/23 1616 by Maisha De La Garza APRN-CRNA Peripheral IV Date: 10/02/23; Time: 1423; Orientation: Right, Lateral; Location: Wrist; Placed By: Angie de la garza CRNA; Gauge: 20 Gauge 10/02/23 1423 by Maisha De La Garza APRN-CRNA Negative Pressure Wound Therapy 10/02/23; 1537; Right; Hip 10/02/23 1537 by Layton Mcelroy RN Intraprocedure I/O Totals Intake lactated ringers infusion 1000.00 mL Total Intake 1000 mL Output Estimated Blood Loss 300 mL Total Output 300 mL Net Net Volume 700 mL Patient Transfer Location: PACU Transport Airway: spontaneous respirations, supplemental O2 and oral airway Complications: None Handoff Given? Yes Checklist or Protocol - The ma handoff elements that must be included in the transfer of care checklist include: 1. Identification of patient. 2. Identification of responsible practitioner (PACU nurse or advanced practitioner). 3. Discussion of pertinent medical history. 4. Discussion of the surgical/procedure course (procedure, reason for surgery, procedure performed). 5. Intraoperative anesthetic management and issue/concerns. 6. Expectations/Plans for the early post-procedure period. 7. Opportunity for questions and acknowledgement of understanding of report from the receiving PACUteam. FERN Del Rosario ALLATION TECHNICIAN documented in this encounter Plan of Treatment Upcoming Encounters Date Type Department Care Team (Late st Contact Info) Description 01/20/2025 10:00 AM CDT Office Visit [facility] [address] [facility] [address] [place] [id number] Torrey Lafleur MD [address] [facility] [address] [place] [address] documented as of this encounter Procedures Procedure Name Priority Date/Time Associated Diagnosis Comments ENDOTRACHEAL TUBE NOTE Routine 10/02/2023 2:32 PM INSTALLATION TECHNICIAN documented in this encounter Results * ETT LINE PERFORMABLE (10/02/2023 2:32 PM INSTALLATION TECHNICIAN) Narrative Maisha De La Garza APRN-CRNA - 10/02/2023 2:32 PM INSTALLATION TECHNICIAN Maisha De La Garza APRN-CRNA ? 10/02/2023 ??2:34 PM Endotracheal Tube Placement: ? Patient Location: OR. Intubation Event Date/Time: ??10/02/2023 2:04 PM Procedure: intubation (23766). Procedure Section: ?? Sedation: under general anesthesia. [...] PM. Staff Section ? Anesthesia Provider: Maisha De La Garza APRN-CRNA, Performed the procedure Segundo Zimmerman MD GENERAL ANESTHESIA O RDERAAILYN documented in this encounter Visit Diagnoses Not on filedocumented in this encounter Administered Medications Inactive Administered Medications - up to 3 most recent administrations Medication Order MAR Action Action Date Dose Rate Site ceFAZolin (Ancef) injection Intravenous, PRN, Starting on Sun10/02/23 at 1415, Until Sun10/02/23 at 1624, Anesthesia Intra-op $ Given 10/02/2023 2:15 PM INSTALLATION TECHNICIAN 3 g dexAMETHasone (Decadron) injection Intravenous, PRN, Starting on Sun10/02/23 at 1418, Until Sun10/02/23 at 1624, Anesthesia Intra-op $ Given 10/02/2023 2:18 PM INSTALLATION TECHNICIAN 4 mg dexmedeTOMIDine (Precedex) injection Intravenous, PRN, Starting on Sun10/02/23 at 1534, Until Sun10/02/23 at 1624, Anesthesia Intra-op $ Given 10/02/2023 3:47 PM INSTALLATION TECHNICIAN 20 mcg $ Given 10/02/2023 3:34 PM INSTALLATION TECHNICIAN 20 mcg esmolol (Brevibloc) injection Intravenous, PRN, Starting on Sun10/02/23 at 1400, Until Sun10/02/23 at 1624, Anesthesia Intra-op $ Given 10/02/2023 2:00 PM INSTALLATION TECHNICIAN 30 mg fentaNYL (PF) (Sublimaze) injection Intravenous, PRN, Starting on Sun10/02/23 at 1357, Until Sun10/02/23 at 1624, Anesthesia Intra-op $ Given 10/02/2023 3:54 PM INSTALLATION TECHNICIAN 50 mcg $ Given 10/02/2023 1:57 PM INSTALLATION TECHNICIAN 50 mcg lactated ringers infusion Intravenous, CONTINUOUS PRN, Starting on Sun10/02/23 at 1350, Until Sun10/02/23 at 1624, Anesthesia Intra-op $ New Bag/Syringe 10/02/2023 3:37 PM INSTALLATION TECHNICIAN $ New Bag/Syringe 10/02/2023 1:50 PM INSTALLATION TECHNICIAN lidocaine HCl (PF) (Xylocaine MPF) 2 % injection Intravenous, PRN, Starting on Sun10/02/23 at 1359, Until Sun10/02/23 at 1624, Anesthesia Intra-op $ Given 10/02/2023 1:59 PM INSTALLATION TECHNICIAN 80 mg midazolam (Versed) injection Intravenous, PRN, Starting on Sun10/02/23 at 1354, Until Sun10/02/23 at 1624, Anesthesia Intra-op $ Given 10/02/2023 1:54 PM INSTALLATION TECHNICIAN 2 mg ondansetron (Zofran) injection Intravenous, PRN, Starting on Sun10/02/23 at 1418, Until Sun10/02/23 at 1624, Anesthesia Intra-op $ Given 10/02/2023 2:18 PM INSTALLATION TECHNICIAN 4 mg phenylephrine 100 mcg/mL injection Intravenous, PRN, Starting on Sun10/02/23 at 1417, Until Sun10/02/23 at 1624, Anesthesia Intra-op $ Given 10/02/2023 3:06 PM INSTALLATION TECHNICIAN 200 mcg $ Given 10/02/2023 2:35 PM INSTALLATION TECHNICIAN 200 mcg $ Given 10/02/2023 2:28 PM INSTALLATION TECHNICIAN 200 mcg propofol (Diprivan) injection Intravenous, PRN, Starting on Sun10/02/23 at 1403, Until Sun10/02/23 at 1624, Anesthesia Intra-op $ Given 10/02/2023 2:04 PM INSTALLATION TECHNICIAN 100 mg $ Given 10/02/2023 2:03 PM INSTALLATION TECHNICIAN 100 mg rocuronium (Zemuron) injection Intravenous, PRN, Starting on Sun10/02/23 at 1413, Until Sun10/02/23 at 1624, Anesthesia Intra-op $ Given 10/02/2023 2:36 PM INSTALLATION TECHNICIAN 20 mg $ Given 10/02/2023 2:13 PM INSTALLATION TECHNICIAN 30 mg succinylcholine (Anectine) injection Intravenous, PRN, Starting on Sun10/02/23 at 1403, Until Sun10/02/23 at 1624, Anesthesia Intra-op $ Given 10/02/2023 2:03 PM INSTALLATION TECHNICIAN 160 mg sugammadex (Bridion) injection Intravenous, PRN, Starting on Sun10/02/23 at 1552, Until Sun10/02/23 at 1624, Anesthesia Intra-op $ Given 10/02/2023 3:52 PM INSTALLATION TECHNICIAN 300 mg documented in this encounter Care Teams Senior [employer] [facility] Director Relationship Specialty Start Date End Date Faisal Richardson DO [address] [place] [address] PCP - General Family Medicine 11/27/22 documented as of this encounter
--- OUTSIDE RECORDS SUMMARY | 2024-07-28 00:58 | XMS_ITS | Encounter Summary ---
Author Organization [facility] Address [address] [place] [address] Care Team Providers Care Continuous Pickling Line Pickler Helper Name Role Phone Faisal Richardson DO Primary Care Provider [phone] Reason for Visit * Reason Comments Injury Leg Right leg pain. Hx o f hip and knee surgery * Auth/Cert (Routine) Specialty Diagnoses / Procedures Referred By Contac t Referred To Contact Referral ID Status Reason Start Date Expiration Date Visits Re quested Visits Authorized [id number] 1 1 Encounter Details Date Type Department Care Team (Late st Contact Info) Description 09/24/2023 6:55 PM TREATING ENGINEER - 09/24/2023 7:35 PM TREATING ENGINEER Surgery [facility] PERIOPER[facility]IVE [address] [place] [address] Torrey Lafleur MD [address] [place] [address] ASPIRATION RIGHT HIP UNDER FLUOROSCOPY, FLUOROSCOPY FOR NEEDLE PLACEMENT RIGHT HIP, ARTHROTOMY WITH IRRIGATION AND DEBRIDEMENT RIGHT HIP, REMOVAL OF HARDWARE RIGHT HIP, PLACEMENT OF ANTIBIOTIC BEADS RIGHT HIP X20, WOUND VAC PLACEMENT RIGHT HIP Surgery Details Date/Time Status Location OR Service Patient Class Case Class Case Type Trauma Case? 09/24/2023 6:55 PM Posted [facility] MAIN OR OR 03 Orthopedics Surgery Day Care Elective > 5 days Panel 1 Procedure LRB Anes Op Region Wound Class Comments ASPIRATION RIGHT HIP UNDER F LUOROSCOPY, FLUOROSCOPY FOR NEEDLE PLACEMENT RIGHT HIP, ARTHROTOMY WITH IRRIGATION AND DEBRIDEMENT RIGHT HIP, REMOVAL OF HARDWARE RIGHT HIP, PLACEMENT OF ANTIBIOTIC BEADS RIGHT HIP X20, WOUND VAC PLACEMENT RIGHT HIP Right General Hip Clean Surgeon Surgeon Role Service Panel Torrey Lafleur MD Primary Orthopedics 1 Special Needs NEEDS C-ARM, JESÚS TABLE, WOUND VAC - ORDRED FROM AGILITY(JED) 09/24 TM / SURGEON AVALIBLE @1900 documented in this encounter Social History Tobacco [...] and heating? Not hard at all 12/14/2022 Citizen Of [place] of Occupat ional Health - Occupational Stress [...] Sign Reading Time Taken Comments Blood Pressure 118/67 09/24/2023 6:13 PM TREATING ENGINEER Pulse 78 09/24/2023 6:13 PM TREATING ENGINEER Temperature 37 ??C (98.6 ??F) 09/24/2023 6:13 PM TREATING ENGINEER Respiratory Rate 18 09/24/2023 6:13 PM TREATING ENGINEER Oxygen Saturation 96% 09/24/2023 5:29 PM TREATING ENGINEER Inhaled Oxygen Concentration - - Weight 124.7 kg (275 lb) 09/24/2023 6:13 PM TREATING ENGINEER Height 182.9 cm (6') 09/24/2023 6:13 PM TREATING ENGINEER Body Mass Index 37.3 09/24/2023 6:13 PM TREATING ENGINEER documented in this encounter Functional Status Functional [...] ??? Sleep apnea uses cpap ??? Stroke ([facility]) 2021 balance residual ??? Type 2 diabetes mellitus without complications ([facility]) Discharge Diagnoses Right prosthetic hip, hardware infection [...] mouth 2 times daily ergocalciferol 1.25 MG (63992 UT) capsule Commonly known as: Drisdol Take [...] capsule by mouth 2 times daily Blaire [place] Probiotic 1-250 BILLION-MG Caps rosuvastatin 20 MG [...] diagnosis is: Prosthetic hip infection, initial encounter ([facility]) [[id number]] Follow up with Primary Care Provider (PCP) [...] Praveen Kaufman MD Date of Service: 10/04/23 TING ENGINEER documented in this encounter Discharge Instructions * Discharge Instructions* Praveen Kaufman MD - 10/04/2023 11:22 AM TREATING ENGINEER Hip Precautions as follows: Posterior hip precautions- [...] tub soaks. No scrubbing around incision. Call [phone] to schedule the first follow-up appointment with Dr. Lafleur in 3 week(s) or for any questions TING ENGINEER documented in this encounter Medications at Time [...] MG/0.5ML injection 10/17/2021 ergocalciferol (Drisdol) 1.25 MG (13744 UT) capsule Take 1 (one) capsule by [...] Goal: Hip precautions are followed Outcome: Progressing TING ENGINEER * Chauncey Hutchinson - 10/03/2023 3:40 PM CST Images from the original note were not included. Patient provided list of in-network home health care. Home Health Referrals have been initiated based on patient's choice: Continued Care and Services - Admitted Since 09/24/2023 Home Medical Care Coordination complete. Service Provider Request Status Selected Services Address Phone Fax Patient [facility] Selected Home Health Services [address] [address] [phone] -- TING ENGINEER * Praveen Kaufman MD - 10/03/2023 3:10 [...] again on 10/02 Evaluated by ID REFUGIO Goodson Pain control PICC line No outpt [...] Protonix Psoriasis Follows with Dermatology at [facility], resolved DVT ppx -Lovenox Disposition: Pending clinical course . Praveen Kaufman MD Date of Service: 10/03/23 Patient was seen by me on 10/03 at around 1045 TING ENGINEER * Mellissa Holland, PT - 10/03/2023 3:08 [...] a decline in function. Mellissa PT [phone] TING ENGINEER * Deena Kline, ANA - 10/03/2023 2:48 PM CST Care Coordination Progress Note Anticipated level of care at discharge: Home Health - IV and Home Health Care: Anticipated level of care provider: [facility] Nichelle Wasserman [facility]: Anticipated Discharge Date: 10/04/23: Discharge Plan: Patient pending PICC line placement, initially opened with [facility] and [facility] new home health care order submitted to [facility]. Patient will discharge with a Prevena. Orientation Level: Oriented X4: Family Support (Name and Phone): Extended Emergency Contact Information Primary Emergency Contact: Marguerite Rutledge Address: [address] [place] [address] Relation: Spouse Transportation at Discharge: : READMISSION RISK SCORE is 12 at 2:48 PM 10/03/2023.: Name: Deena Kline RN, BSN, MSN,CM /[phone] TING ENGINEER * Sigifredo Kruse OT - 10/03/2023 2:15 [...] time. Will D/C OT. Sigifredo OT [phone] TING ENGINEER * Kenna Ocampo MD - 10/03/2023 8:52 [...] 194 246 Recent Labs Component Name 09/25/23 01409/24/23 1058 12/16/22 0545 SODIUM 138 137 139 [...] results for input(s): CDIFFTOXINAB in the last 39439 hours. Recent Labs Component Name 09/24/23 1058 SEDRATE 50* Recent Labs Component Name 09/24/23 1058 04/04/23 0950 CRP 5.64* 0.33 No results for input(s): CK in the last 53929 hours. . Recent Labs Component Name 09/26/23 [...] infection -06/2022: s/p hip arthroplasty for arthritis ([place], [place]) -08/30/22: s/p hardware removal due to infection, IV abx x 6wks ([place]) -12/08/22: s/p revision arthroplasty, fixation of [...] CMP, UA, sed rate. Fax results to [phone] Discussed with IV team Please be advised that part of this text was done using voice recognition software. Errors may havebeen missed upon review. Kenna Ocampo MD TING ENGINEER * Jose Villa MD - 10/03/2023 8:18 [...] soaks. No scrubbing around incision. ?? Call [phone] to schedule the first follow-up appointment with Dr. Lafleur in 3 week(s) or for any questions TING ENGINEER * Chacho Tian RN - 10/03/2023 4:50 AM CST Problem: Pain/Discomfort Goal: Patient exhibits reduced pain/discomfort as evidenced by pain scores 10/03/20230 by Chacho Tian RN Outcome: Progressing 10/03/2023448 by Chacho Tian RN Outcome: Progressing Goal: Patient uses pharmacological and non-pharmacological pain management strategies. 10/03/20230 by Chacho Tian RN Outcome: Progressing 10/03/2023448 [...] Goal: Hip precautions are followed Outcome: Progressing TING ENGINEER * Jose Villa MD - 10/02/2023 4:18 [...] 7. Antibiotics per ID/primary 8. Dispo: floor TING ENGINEER * Deena Kline RN - 10/02/2023 2:00 PM CST Care Coordination Progress Note Anticipated level of care at discharge: Home Health - IV and Home Health Care: Anticipated level of care provider: Kelsy Steward Lisy [facility]: Anticipated Discharge Date: 10/04/23: Discharge Plan: Patient will need IV antibiotic for 6 weeks with a end date of November 13, 2023 from last I&D 10.02.23. Patient will discharge home with [facility] and [facility]. CM will continue to follow POC and provide additional assistance as needed. Orientation Level: Oriented X4: Family Support (Name and Phone): Extended Emergency Contact Information Primary Emergency Contact: Marguerite Rutledge Address: [address] [place] [id number] Relation: Spouse Transportation at Discharge: : READMISSION RISK SCORE is 12 at 2:00 PM 10/02/2023.: Name: Deena Kline RN, BSN, MSN, CM /[phone] TING ENGINEER * Bailey Jones RN - 10/02/2023 11:31 [...] using AE and maintaining PHP Outcome: Progressing TING ENGINEER * Kenna Ocampo MD - 10/02/2023 8:52 [...] results for input(s): CDIFFTOXINAB in the last 37079 hours. Recent Labs Component Name 09/24/23 1058 SEDRATE 50* Recent Labs Component Name 09/24/23 1058 04/04/23 0950 CRP 5.64* 0.33 No results for input(s): CK in the last 69304 hours. . Recent Labs Component Name 09/26/23 [...] infection -06/2022: s/p hip arthroplasty for arthritis ([place], [place]) -08/30/22: s/p hardware removal due to infection, IV abx x 6wks ([place], [place]) -12/08/22: s/p revision arthroplasty, fixation of [...] CMP, UA, sed rate. Fax results to [phone] Please be advised that part of this text was done using voice recognition software. Errors may havebeen missed upon review. Kenna Ocampo MD TING ENGINEER * Praveen Kaufman MD - 10/02/2023 8:10 [...] Protonix Psoriasis Follows with Dermatology at [facility], resolved DVT ppx -Lovenox (HOLD FOR OR ) Disposition: Pending clinical course . Praveen Kaufman MD Date of Service: 10/02/23 Patient was seen by me on 10/02 at around 1040 TING ENGINEER * Torrey Lafleur MD - 10/02/2023 7:41 [...] Av.3 ??F (36.8 ??C), Min:97.6 ??F (36.4 ??C),Max:98.9 ??F (37.2 ??C) Labs Recent Labs Component [...] AND DEBRIDEMENT RIGHT HIP, REMOVAL OF ANTIBIOTIC [id number], PLACEMENT OF ANTIBIOTIC BEADS x20, WOUND VAC [...] MG/0.5ML injection ??? ergocalciferol (Drisdol) 1.25 MG (35807 UT) capsule Take 1 (one) capsule by [...] ??? Sleep apnea uses cpap ??? Stroke ([facility]) 2021 balance residual ??? Type 2 diabetes mellitus without complications ([facility]) Past Surgical History: Procedure [...] dictation was performed with the use of Nulogyon voice recognition and errors with transcriptionmay occur. Please see resident's note for further details. Torrey Lafleur MD TING ENGINEER * Sanjay Kumar RN - 10/02/2023 6:30 AM CST Problem: Pain/Discomfort Goal: Patient exhibits reduced pain/discomfort as evidenced by pain scores Outcome: Progressing Problem: Fall Risk Goal: Fall risk and fall related injury risk are minimized (interventions related to the fall risk can be found in the flowsheet documentation) Outcome: Progressing TING ENGINEER * Bailey Jones RN - 10/01/2023 5:51 [...] step with SBA and LRD Outcome: Progressing TING ENGINEER * Yasemin De, RD/LD - 10/01/2023 1:37 [...] results for input(s): PREALBUMIN in the last 30381 hours. Patient Vitals for the past 30 [...] Combs RD/SLICK 10/01/2023 1:40 PM Ascom [id number] TING ENGINEER * Praveen Kaufman MD - 10/01/2023 1:16 [...] Psoriasis Follows with Dermatology at [facility] Constipation, resolved DVT ppx -Lovenox (HOLD FOR OR TOMORROW) Disposition: Pending clinical course . OR Sunday Praveen Kaufman MD Date of Service: 10/01/23 Patient was seen by me on 10/01 at around 1045 TING ENGINEER * Deena Kline RN - 10/01/2023 10:30 AM CST Care Coordination Progress Note Anticipated level of care at discharge: Home Health - IV and Home Health Care: Anticipated level of care provider: [facility] Lisy [facility]: Anticipated Discharge Date: 10/02/23: [...] Information Primary Emergency Contact: Marguerite Rutledge Address: [address] [place] [address] Relation: Spouse Transportation at Discharge: : READMISSION RISK SCORE is 12 at 10:30 AM 10/01/2023.: Name: Deena Kline RN, BSN, MSN, CM /[phone] TING ENGINEER * Kenna Ocampo MD - 10/01/2023 9:47 [...] no hope/seizures Psych: no depression/anxiety Exam Vitals: 09/30/237 10/01/23 0001 10/01/23 0533 10/01/23 0729 BP: [...] results for input(s): CDIFFTOXINAB in the last 21916 hours. Recent Labs Component Name 09/24/23 1058 SEDRATE 50* Recent Labs Component Name 09/24/23 1058 04/04/23 0950 CRP 5.64* 0.33 No results for input(s): CK in the last 41361 hours. . Recent Labs Component Name 09/26/23 [...] infection -06/2022: s/p hip arthroplasty for arthritis ([place], [place]) -08/30/22: s/p hardware removal due to infection, IV abx x 6wks ([place], [place]) -12/08/22: s/p revision arthroplasty, fixation of [...] CMP, UA, sed rate. Fax results to [phone] Please be advised that part of this text was done using voice recognition software. Errors may havebeen missed upon review. Kenna Ocampo MD TING ENGINEER * Jose Villa MD - 10/01/2023 9:16 [...] AND DEBRIDEMENT RIGHT HIP, REMOVAL OF ANTIBIOTIC [id number], PLACEMENT OF ANTIBIOTIC BEADS x20, WOUND VAC [...] questions Jose Villa MD 10/01/2023 9:17 AM TING ENGINEER * Praveen Kaufman MD - 09/30/2023 10:08 [...] Psoriasis Follows with Dermatology at [facility] Constipation, resolved DVT ppx -Lovenox Disposition: Pending clinical course . OR Sunday Praveen Kaufman MD Date of Service: 09/30/23 Patient was seen by me on 09/30 at around 0845 TING ENGINEER * Ashish Barnett MD - 09/30/2023 8:34 [...] of right hip arthroplasty in 06/2022 at [facility] in [place]. Due to infectionhe is s/p removal or arthroplasty in 08/30/22 at [facility]; received IV antibiotics x 6 weeks [...] results for input(s): CDIFFTOXINAB in the last 88099 hours. Recent Labs Component Name 09/24/23 1058 SEDRATE 50* Recent Labs Component Name 09/24/23 1058 04/04/23 0950 CRP 5.64* 0.33 No results for input(s): CK in the last 42527 hours. . Recent Labs Component Name 09/26/23 [...] infection -06/2022: s/p hip arthroplasty for arthritis ([place], [place]) -08/30/22: s/p hardware removal due to infection, IV abx x 6wks ([place]) -12/08/22: s/p revision arthroplasty, fixation of [...] with patient, care team Ashish Barnett MD TING ENGINEER * Ashish Barnett MD - 09/29/2023 5:20 [...] of right hip arthroplasty in 06/2022 at [facility] in [place]. Due to infectionhe is s/p removal or arthroplasty in 08/30/22 at [facility]; received IV antibiotics x 6 weeks [...] results for input(s): CDIFFTOXINAB in the last 35685 hours. Recent Labs Component Name 09/24/23 1058 SEDRATE 50* Recent Labs Component Name 09/24/23 1058 04/04/23 0950 CRP 5.64* 0.33 No results for input(s): CK in the last 62217 hours. . Recent Labs Component Name 09/26/23 [...] infection -06/2022: s/p hip arthroplasty for arthritis ([place]) -08/30/22: s/p hardware removal due to infection, IV abx x 6wks ([place]) -12/08/22: s/p revision arthroplasty, fixation of [...] with patient, care team Ashish Barnett MD TING ENGINEER * Praveen Kaufman MD - 09/29/2023 12:59 [...] Protonix Psoriasis Follows with Dermatology at [facility], resolved Discussed with at bedside DVT ppx -Lovenox Disposition: Pending clinical course Praveen Kaufman MD Date of Service: 09/29/23 Patient was seen by me on 09/29 at around 1015 TING ENGINEER * Deena Kline RN - 09/28/2023 3:11 PM CST Care Coordination Progress Note Anticipated level of care at discharge: Home Health - IV and Home Health Care: Anticipated level of care provider: Kelsy [facility]: Anticipated Discharge Date: 10/02/23: [...] Information Primary Emergency Contact: Marguerite Rutledge Address: [address] [place] [phone] Relation: Spouse Transportation at Discharge: : READMISSION RISK SCORE is 10 at 3:11 PM 09/28/2023.: Name: Deena Kline RN, BSN, MSN, CM /[phone] TING ENGINEER * Millie Costello, PT - 09/28/2023 2:45 [...] Active Participation Mobility: Supine to Sit: Modified Gilmer Sit to Supine: Modified Gil[place] Sit to Stand: Supervision Stand to Sit: [...] place and intact pre and post visit. TING ENGINEER * Ashish Barnett MD - 09/28/2023 2:10 [...] of right hip arthroplasty in 06/2022 at [facility] in [place]. Due to infectionhe is s/p removal or arthroplasty in 08/30/22 at [facility]; received IV antibiotics x 6 weeks [...] results for input(s): CDIFFTOXINAB in the last 55241 hours. Recent Labs Component Name 09/24/23 1058 SEDRATE 50* Recent Labs Component Name 09/24/23 1058 04/04/23 0950 CRP 5.64* 0.33 No results for input(s): CK in the last 16638 hours. . Recent Labs Component Name 09/26/23 [...] infection -06/2022: s/p hip arthroplasty for arthritis ([place]) -08/30/22: s/p hardware removal due to infection, IV abx x 6wks ([place]) -12/08/22: s/p revision arthroplasty, fixation of [...] with patient, care team Ashish Barnett MD TING ENGINEER * Praveen Kaufman MD - 09/28/2023 12:33 [...] Psoriasis Follows with Dermatology at [facility] Constipation miralax Lactulose x 1 Dulcolax suppository if no BM by 2 pm Discussed with at bedside DVT ppx -Lovenox Disposition: Pending clinical course Praveen Kaufman MD Date of Service: 09/28/23 Patient was seen by me on 09/28 at around 1020 TING ENGINEER * Lane Nathan OT - 09/28/2023 11:02 [...] 1. Infection of prosthetic joint, initial encounter ([facility]) 2. Pain of right [...] Mobility: Bed Mobility: Supine to Sit: Modified Gilmer (HOB elevated) Sit to Supine: Modified Gilmer (HOB elevated) Transfers: Sit to Stand: Supervision Stand to Sit: Supervision Mobility: Distance Ambulated: (Functional mobility in room) Ambulation: Assistive Device: Gait Belt;Walker-2 Wheeled Ambulation: Level of Assistance: Supervision ADL Tasks: Based on observation and clinical judgement Feeding: Complete Gilmer Oral Facial Hygiene: Supervision Bathing: Supervision Upper Body Dressing: Set-up Lower Body Dressing: Supervision Toileting: Supervision RUE Assessment: AROM - Right Upper Extremity: Within Functional Limits Strength - Right Upper Extremity: Within Functional Limits Moving Worker Strength:Moving Worker Strength - Right Upper Extremity: WFL LUE Assessment: AROM - Left Upper Extremity: Within Functional Limits Strength - Left Upper Extremity: Within Functional Limits Moving Worker Strength:Moving Worker Strength - Left Upper Extremity: WFL: Activity [...] the discharge summary. MEL Sherman, OTR/L [phone] TING ENGINEER * Felipe Miller MD - 09/28/2023 4:36 [...] AND DEBRIDEMENT RIGHT HIP, REMOVAL OF ANTIBIOTIC [id number], PLACEMENT OF ANTIBIOTIC BEADS x20, WOUND VAC [...] Miller MD 09/28/2023 4:36 AM Pager number: [phone] Orthopedic Surgery Resident TING ENGINEER * Brigido Lundberg MD - 09/27/2023 12:16 [...] patient. Brigido Lundberg MD 09/27/2023 12:17 PM TING ENGINEER * Lane Nathan OT - 09/27/2023 12:10 PM CST Attempted to see pt for OT follow-up; however pt MILAD for repeat I&D of R hip. Will continue to follow. Appreciate updated WB/activity orders post op. BRANDIE Sherman [phone] 09/27/2023 TING ENGINEER * Praveen Kaufman MD - 09/27/2023 10:56 [...] Psoriasis Follows with Dermatology at [facility] Discussed with daughter and at bedside DVT ppx -Lovenox (hold for OR today) Disposition: Pending clinical course Praveen Kaufman MD Date of Service: 09/27/23 Patient was seen by me on 09/27 at around 0930 TING ENGINEER * Millie Costello, PT - 09/27/2023 10:48 [...] WB status and activity orders post op. TING ENGINEER * Ashish Barnett MD - 09/27/2023 10:00 AM CST Infectious Diseases Consult Note Patient's Primary Care Physician: Faisal Richardson DO Reason for Consultation: Rt prosthetic hip joint infection Referring Physcian: Byrant Jones MD Name: Taylor Rutledge Age: [age] year old 1 Chief Complaint/History of Present Illness HPI: Taylor Rutledge is a 58 year old White/Caucasianmale admitted 09/24 for evaluation of right hip pain. Hx of right hip arthroplasty in 06/2022 at [facility] in [place]. Due to infectionhe is s/p removal or arthroplasty in 08/30/22 at [facility]; received IV antibiotics x 6 weeks [...] results for input(s): CDIFFTOXINAB in the last 21429 hours. Recent Labs Component Name 09/24/23 1058 SEDRATE 50* Recent Labs Component Name 09/24/23 1058 04/04/23 0950 CRP 5.64* 0.33 No results for input(s): CK in the last 98089 hours. . Recent Labs Component Name 09/26/23 [...] infection -06/2022: s/p hip arthroplasty for arthritis ([place], [place]) -08/30/22: s/p hardware removal due to infection, IV abx x 6wks ([place]) -12/08/22: s/p revision arthroplasty, fixation of [...] with patient, care team Ashish Barnett MD TING ENGINEER * Brigido Lundberg MD - 09/27/2023 6:49 [...] exchange 9. Please page ortho with questions TING ENGINEER Associated attestation - Torrey Lafleur MD - 09/27/2023 10:35 AM TREATING ENGINEER Patient seen and examined, agree with above [...] 1.5 MG/0.5ML injection ergocalciferol (Drisdol) 1.25 MG (16454 UT) capsule Take 1 (one) capsule by [...] syndrome Sleep apnea uses cpap Stroke ([facility]) 2021 balance residual Type 2 diabetes mellitus without complications ([facility]) Past Surgical History: Procedure Laterality Date Appendectomy [...] dictation was performed with the use of Nulogyon voice recognition and errors with transcriptionmay occur. [...] AE and maintaining PHP Outcome: Not Progressing TING ENGINEER * Mamta Kyle [facility] - 09/26/2023 3:09 PM CST Images [...] 09/25/23 0141 Estimated creatinine clearance: 123.2 mL/min TING ENGINEER * Ashish Barnett MD - 09/26/2023 2:29 [...] of right hip arthroplasty in 06/2022 at [facility] in [place]. Due to infectionhe is s/p removal or arthroplasty in 08/30/22 at [facility]; received IV antibiotics x 6 weeks [...] results for input(s): CDIFFTOXINAB in the last 17675 hours. Recent Labs Component Name 09/24/23 1058 SEDRATE 50* Recent Labs Component Name 09/24/23 1058 04/04/23 0950 CRP 5.64* 0.33 No results for input(s): CK in the last 99431 hours. . Recent Labs Component Name 09/26/23 [...] infection -06/2022: s/p hip arthroplasty for arthritis ([place]) -08/30/22: s/p hardware removal due to infection, IV abx x 6wks ([place]) -12/08/22: s/p revision arthroplasty, fixation of [...] with patient, care team Ashish Barnett MD TING ENGINEER * Angelika Tamayo, PT - 09/26/2023 11:59 [...] vac Bed Mobility: Supine to Sit: Modified Gilmer Transfers: Sit to Stand: Stand By Assist [...] fall precautions, and benefits of OOB activity. RNRebecca, notified of patient's performance/location end of session. Please refer to the Filed Flowsheet for further details. Refer to Plan of Care for PT goals. If this is the last Physical Therapy visit, this note serves as the discharge summary. ABHISHEK Guevara [phone] TING ENGINEER * Tyler Fischer RN - 09/26/2023 11:29 [...] using AE and maintaining PHP Outcome: Progressing TING ENGINEER * Praveen Kaufman MD - 09/26/2023 11:17 [...] Psoriasis Follows with Dermatology at [facility] DVT ppx -Lovenox (hold after today dose) Disposition: Pending clinical course Praveen Kaufman MD Date of Service: 09/26/23 Patient was seen by me on 09/26 at around 1000 TING ENGINEER * Brigido Lundberg MD - 09/26/2023 8:04 [...] exchange 8. Please page ortho with questions TING ENGINEER * Shoshana Howard RN - 09/26/2023 4:26 AM CST Problem: Pain/Discomfort Goal: Patient uses pharmacological and non-pharmacological pain management strategies. Outcome: Progressing Problem: Fall Risk Goal: Fall risk and fall related injury risk are minimized (interventions related to the fall risk can be found in the flowsheet documentation) Outcome: Progressing TING ENGINEER * Lane Nathan, OT - 09/25/2023 2:45 [...] 1. Infection of prosthetic joint, initial encounter ([facility]) 2. Pain of right [...] - Right Upper Extremity: Within Functional Limits Moving Worker Strength: Moving Worker Strength - Right Upper Extremity: WFL LUE Assessment: AROM - Left Upper Extremity: Within Functional Limits Strength - Left Upper Extremity: Within Functional Limits Moving Worker Strength: Moving Worker Strength - Left Upper Extremity: WFL: Basic ADL's: Based on observation and clinical judgement Feeding: Complete [place] Oral Facial Hygiene: Stand By Assist (for [...] place and intact pre and post visit. RNMluu, notified of patient's performance/location end of session. [...] the discharge summary. MEL Sherman, OTR/L [phone] TING ENGINEER * Angelika Tamayo, PT - 09/25/2023 2:10 [...] as the discharge summary. ABHISHEK Guevara [phone] TING ENGINEER * Praveen Kaufman MD - 09/25/2023 10:10 [...] Psoriasis Follows with Dermatology at [facility] DVT ppx -Lovenox Disposition: Pending clinical course Praveen Kaufman MD Date of Service: 09/25/23 Patient was seen by me on 09/25 at around 0950 TING ENGINEER * Brigido Lundberg MD - 09/25/2023 8:26 [...] exchange 8. Please page ortho with questions TING ENGINEER * Deena Kline RN - 09/25/2023 7:38 AM CST Care Coordination Initial Assessment Anticipated Discharge Date: 10/02/23 Transportation at Discharge: Anticipated level of care at discharge: Home Health - IV and Home Health Care Anticipated level of care provider: [facility] Prior to admission level of care: Home Prior to admit provider: None Patient Goals: Home with Home Health Care and Home IV Plans: Discharge needs identified. See progress notes for details. Case Management to follow for discharge planning. Comments: Patient resides in a private residence with spouse, retired, drives presents with severehip pain denying any fall or injury hx/o [...] weeks/ PICC line eventually once blood cx negative x 48 hours. CM has contacted [facility] for potential services and referral has been sent to [facility]. CM will continue to follow POC and provide additional assistance as needed. Lives with: Spouse Physical Limitations: None Requires Assistance With: None Preferred Pharmacy: [facility] - [address] [address] [address] [address] READMISSION RISK SCORE is 14 at 6:43 AM 09/26/2023. Met with patient Family Support (name and phone): Extended Emergency Contact Information Primary Emergency Contact: Marguerite Rutledge Address: [address] [place] [address] Relation: Spouse Patient or in store marketing representative requests care coordination reach out to family or caregiver listed above regarding discharge planning and at time of discharge? No Patient/Family provided with list of resources? No Preferred Provider / High Quality Network List given?: No Reason for provider choice: Insurance, Pt. choice - Pt. choice Equipment at Home: Chair-Shower;Hand Held Shower;Toilet Seat - Raised;Walker-2 Wheeled;Walker-Standard Motor Racer Referral: No Will continue to follow. For any questions or needs please contact: Car Wrecker Name/Phone number: Deena Kline RN, BSN, MSN, CM / [phone] TING ENGINEER * Shayne Stoner [facility] - 09/24/2023 10:07 PM CST Images [...] levels at steady state. Shayne Stoner RPH TING ENGINEER * Germain Donovan MD - 09/24/2023 9:44 PM CST Orthopedic Surgery Postoperative Check Taylor Rutledge, 58 year old, male : 1965 CSN: [id number] Admitted: 09/24/2023 11:47 AM Subjective Nausea/vomiting: none [...] concerns Germain Donovan MD 09/24/2023 9:44 PM TING ENGINEER * Libia Lamas RN - 09/24/2023 7:53 [...] found in the flowsheet documentation) Outcome: Progressing TING ENGINEER documented in this encounter H&P Notes * Sarah Parsons, DOCUMENT CONTROL ASSOCIATE-DRILL SHARPENER OPERATOR - 09/24/2023 3:59 PM CST [employer] [...] unable to bear weight. He denies any fever,nausea, vomiting, chest pain, shortness on breath, constipation [...] ??? Sleep apnea uses cpap ??? Stroke ([facility]) 2021 balance residual ??? Type 2 diabetes mellitus without complications ([facility]) Past Surgical History: Procedure [...] No Stress: No Stress Concern Present (12/14/2022) Citizen Of [place] of Occupational Health - Occupational Stress Questionnaire [...] MG/0.5ML injection ??? ergocalciferol (Drisdol) 1.25 MG (65006 UT) capsule Take 1 (one) capsule by [...] , HDL , LDLCALC in the last 50796 hours. No results for input(s): AMYLASE in the last 96087 hours. Recent Labs Component Name 12/08/22 1329 12/08/22 1232 KCF7XRY 41.6 40.5 PO2ART 300* 297* F7BNZJJM 100 100 BEART -2 -2 No results for input(s): BNP in the last 57996 hours. No results for input(s): CDIFFTOXINAB in the last 48515 hours. No results for input(s): CK in the last 01155 hours. No results for input(s): CKMB in the last 46290 hours. No results for input(s): CKMBINTERP in the last 21546 hours. Recent Labs Component Name 12/14/22 1933 07/14/14 1359 INR 1.1 1.2 Recent Labs Component Name 12/14/22 1933 07/14/14 1359 PT 13.7 15.0* Recent Labs Component Name 07/14/14 1359 PTT 24.7 No results for input(s): TROPONIN in the last 01160 hours. No results for input(s): TSH in the last 95288 hours. No results for input(s): PHENYTOIN in the last 60852 hours. No results for input(s): DIGOXIN in the last 66339 hours. No results for input(s): MAGMGDL in the last 30678 hours. Recent Labs Component Name 11/27/22 0950 [...] Norvasc, Coreg GERD: Protonix Prophylaxis: SCDs [facility] Patient Diagnoses Present at the Time of Admission Obesity Discussed with Dr Jones Further recommendations pending the course of hospitalization for this patient. Please be advised that this note was created using voice recognition software and there is the potential for misinterpretation. Sarah Parsons APRN-DRILL SHARPENER OPERATOR 09/24/2023 4:25 PM TING ENGINEER documented in this encounter Consult Notes * [...] Maximum sterile barrier precautions were used including sterile gown and gloves, hat, mask, eye protection and [...] to patient. Reviewed with: patient. Complications: None nAgelika Ponce RN 10/03/2023 3:22 PM TING ENGINEER * Sophia Hagan LPN - 10/03/2023 9:51 AM CST Referral not opened, as this patient lives out of [facility] service area. Sophia Hagan LPN Referral Liaison [facility]. [phone] TING ENGINEER * Leelee Sapp MSW - 10/03/2023 9:20 AM CSTAssociated Order(s): IP CONSULT TO SKIP HOIST ENGINEER SW acknowledges referral. There are no SW needs determined at this time and will sign off. Please re-consult when needs are identified. DEEPALI Moreira 10/03/2023 9:22 AM [phone] TING ENGINEER * Ashish Barnett MD - 09/25/2023 10:12 [...] of right hip arthroplasty in 06/2022 at [facility] in [place], [place]. Due to infectionhe is s/p removal or arthroplasty in 08/30/22 at [facility]; received IV antibiotics x 6 weeks [...] ??? Sleep apnea uses cpap ??? Stroke ([facility]) 2021 balance residual ??? Type 2 diabetes mellitus without complications ([facility]) Past Surgical History: Procedure [...] results for input(s): CDIFFTOXINAB in the last 03026 hours. Recent Labs Component Name 09/24/23 1058 SEDRATE 50* Recent Labs Component Name 09/24/23 1058 04/04/23 0950 CRP 5.64* 0.33 No results for input(s): CK in the last 48002 hours. .No results for input(s): VANCOTROUGH , VANCOPEAK , VANCSERIES in the last 18238 hours. Invalid input(s): VANCORAND Recent Labs Component [...] infection -06/2022: s/p hip arthroplasty for arthritis ([place], [place]) -08/30/22: s/p hardware removal due to infection, IV abx x 6wks ([place], [place]) -12/08/22: s/p revision arthroplasty, fixation of [...] bcx neg x 48h / OPAT via [facility] care as he [place] far away -anticipate likely chronic suppression with po antibiotic upon completion of 6 weeks IV (given retention of some hardware) -pending finalized OR cultures / work up as above Discussed with patient, care team Ashish Barnett MD TING ENGINEER * Torrey Lafleur MD - 09/24/2023 2:45 PM CST Orthopaedic Surgery Consult Note Taylor Rutledge [phone] Date of service: 09/24/2023 Chief Complaint: Chief Complaint Patient presents with ??? Injury Leg Right leg pain. Hx of hip and knee surgery Subjective: Taylor Rutledge is a 58 year old male who presents to [facility] ED with complaints of acute on chronic [...] ??? Sleep apnea uses cpap ??? Stroke ([facility]) 2021 balance residual ??? Type 2 diabetes mellitus without complications ([facility]) Past Surgical History: Procedure Laterality Date ??? [...] MG/0.5ML injection ??? ergocalciferol (Drisdol) 1.25 MG (09213 UT) capsule ??? ferrous sulfate 325 (65 [...] MG/0.5ML injection ??? ergocalciferol (Drisdol) 1.25 MG (51465 UT) capsule Take 1 (one) capsule by [...] ??? Sleep apnea uses cpap ??? Stroke ([facility]) 2021 balance residual ??? Type 2 diabetes mellitus without complications ([facility]) Past Surgical History: Procedure [...] MG/0.5ML injection ??? ergocalciferol (Drisdol) 1.25 MG (72390 UT) capsule Take 1 (one) capsule by [...] ??? Sleep apnea uses cpap ??? Stroke ([facility]) 2021 balance residual ??? Type 2 diabetes mellitus without complications ([facility]) Past Surgical History: Procedure Laterality Date ??? [...] dictation was performed with the use of [employer] voice recognition and errors with transcriptionmay occur. Please see resident's note for further details. Torrey Lafleur MD TING ENGINEER documented in this encounter OR Notes * [...] Role: * Torrey Lafleur MD - Primary Rigger Chief(s): Jose Villa MD - resident Anesthesia Type: [...] Implant Name Type Inv. Item Serial No. Manager Fine Lot No. LRB No. Used Action liner [employer] [id number] Right 1 Implanted femoral head [employer] [id number] Right 1 Implanted head sleeve [employer] [id number] Right 1 Implanted Jose Villa MD TING ENGINEER * Operative - Torrey Lafleur MD - 10/02/2023 2:29 PM CST DATE OF SURGERY: 10/02/2023 Taylor Rutledge [id number] PREOP DX: Infected right total hip arthroplasty [...] line wound VAC for wound at risk GROUNDS WORKER(S): Jose Villa MD ANESTHESIA: GET INDICATIONS FOR [...] Implant Name Type Inv. Item Serial No. Manager Fine Lot No. LRB No. Used Action liner [employer] [id number] Right 1 Implanted femoral head [employer] [id number] Right 1 Implanted head sleeve [employer] [id number] Right 1 Implanted COUNTS: Sponge and needle counts were correct at the end of procedure and I was present for the entire case. This dictation was performed with the use of [employer] voice recognition and errors with transcriptionmay occur. Torrey Lafleur MD TING ENGINEER * Brief Op Note - Brigido Lundberg [...] Role: * Torrey Lafleur MD - Primary Rigger Chief(s): Brigido Lundberg MD Tarr, Tony, FAYE Anesthesia Type: general ETT Complications: none Findings: [...] Implant Name Type Inv. Item Serial No. Manager Fine Lot No. LRB No. Used Action Cmnt Bone Rally 40Gm Hvisc Sprmnt Grn Cmnt Bone Rally 40Gm Hvisc Sprmnt Grn [employer] [id number] Right 1 Implanted Brigido Lundberg MD TING ENGINEER * Operative - Torrey Lafleur MD - 09/27/2023 11:17 AM CST DATE OF SURGERY: 09/27/2023 Taylor Rutledge [id number] PREOP DX: Infected right total hip arthroplasty [...] application right hip SURGEON: Omar Lafleur MD GROUNDS WORKER(S): Brigido Lundberg MD and Von Dodson NP was the surgical brace maker and assisted with surgical retraction, limb manipulation, hip reduction, and wound closure as there was no surgicalfirst delinquent tax collector assistant or resident available for the surgical [...] thoroughly scrubbed both the femoral and acetabular componentsafter placing a slap hammer on the shoulder of the femoral component and back slapping at not beingable to see the implant move at all. After thorough scrubbing for greater than 6 minutes of both the femoral and acetabular components. We irrigated with a [...] was found to be stable. We then closedthe fascia with running 3. Vicryl sutures over the beads and then placed a large wound VAC sponge cut into the superficial tissues stapled to the skin and then covered with adhesive and placed to suct ion. Patient was then awakened from general anesthesia and taken to recovery room in stable condition. There were no complications. We did take cultures upon entering the hip joint. There were no complications. In recovery the patient had a palpable DP pulse and could dorsiflex and plantarflex theankles and toes, indicating good neurovascular function. SPECIMENS: [...] Implant Name Type Inv. Item Serial No. Manager Fine Lot No. LRB No. Used Action Cmnt Bone Rally 40Gm Hvisc Sprmnt Grn Cmnt Bone Rally 40Gm Hvisc Sprmnt Grn [employer] [id number] Right 1 Implanted COUNTS: Sponge and needle counts were correct at the end of procedure and I was present for the entire case. This dictation was performed with the use of [employer] voice recognition and errors with transcriptionmay occur. Torrey Lafleur MD TING ENGINEER * Brief Op Note - Germain Donovan [...] Role: * Torrey Lafleur MD - Primary Rigger Chief(s): Ocular Care Technician: Felipe Haque RN Scrub Person: Lea Mills [...] Implant Name Type Inv. Item Serial No. Manager Fine Lot No. LRB No. Used Action Cmnt Bone Rally 40Gm Hvisc Sprmnt Grn Cmnt Bone Rally 40Gm Hvisc Sprmnt Grn [employer] [id number] Right 1 Implanted Germain Donovan MD TING ENGINEER * Operative - Torrey Lafleur MD - 09/24/2023 8:49 PM CST DATE OF SURGERY: 09/24/2023 Taylor Rutledge [id number] PREOP DX: Painful right total hip arthroplasty [...] application right hip SURGEON: Omar Lafleur MD GROUNDS WORKER(S): Dustin Donovan MD ANESTHESIA: GET INDICATIONS FOR [...] Implant Name Type Inv. Item Serial No. Manager Fine Lot No. LRB No. Used Action Cmnt Bone Rally 40Gm Hvisc Sprmnt Grn Cmnt Bone Rally 40Gm Hvisc Sprmnt Grn [employer] [id number] Right 1 Implanted COUNTS: Sponge and needle counts were correct at the end of procedure and I was present for the entire case. This dictation was performed with the use of [employer] voice recognition and errors with transcriptionmay occur. Torrey Lafleur MD TING ENGINEER documented in this encounter ED Notes * Angelica Galeana RN - 09/24/2023 3:59 PM CST Report given to RN on 2E. RN will transport patient to . TING ENGINEER * Guille Aguilera RN - 09/24/2023 2:25 [...] No signs of distress. Pt wheelchaired to [place] by transporter at this time. TING ENGINEER * Drew Lerma, - 09/24/2023 1:47 PM CST Taylor Rutledge [id number] [facility]GENCY DEPARTMENT History Chief Complaint Patient presents [...] ??? Sleep apnea uses cpap ??? Stroke ([facility]) 2021 balance residual ??? Type 2 diabetes mellitus without complications ([facility]) Past Surgical History: Procedure [...] No Stress: No Stress Concern Present (12/14/2022) Citizen Of [place] of Occupational Health - Occupational Stress Questionnaire [...] MG/0.5ML injection ??? ergocalciferol (Drisdol) 1.25 MG (97504 UT) capsule Take 1 (one) capsule by [...] VAS RIGHT [place] [address] Lower Extremity Venous Ultrasound Report Pat.Name: TAYLOR RUTLEDGE Pat.ID: [id number] .Date: 09/24/2023 Refer.MD: Drew Lerma Exam Time: 3:44:00 PM Study Type:LE Venous Age: 9 1965,58Y Sex: MALE Sonogrphr: Cheryl Gaines RVT Pat. Stat.:Inpatient ICD - 9: M25.551 Reason for Study: Pain -Leg, right Procedures: Lower Extremity Venous - Right Race: 1 Visit ID: [id number] ++++++++++++++++++++++++++++++++++++ SUMMARY: ++++++++++++++++++++++++++++++++++++ Technically difficult study. No [...] DATE/TIME OF EXAM: 09/24/2023 11:24 AM, LOCATION [facility] INDICATION: M25.551: Pain in right hip Right [...] DATE/TIME OF EXAM: 09/24/2023 11:23 AM, LOCATION [facility] INDICATION: M25.551: Pain in right hip AP [...] mL ??? 0.9% NaCl IV flush bag TING ENGINEER * Kip Storey PA - 09/24/2023 10:11 AM CST Taylor Rutledge [id number] [facility]GENCY [facility]PARTMENT History Chief Complaint Patient presents [...] ??? Sleep apnea uses cpap ??? Stroke ([facility] 2021 balance residual ??? Type 2 diabetes mellitus without complications ([facility]) Past Surgical History: Procedure Laterality Date ??? [...] No Stress: No Stress Concern Present (12/14/2022) Citizen Of [place] of [employer]ational Health - Occupational Stress Questionnaire [...] MG/0.5ML injection ??? ergocalciferol (Drisdol) 1.25 MG (05551 UT) capsule Take 1 (one) capsule by [...] mg ??? ondansetron (Zofran) injection 4 mg TING ENGINEER documented in this encounter Miscellaneous Notes * Coding Query - Parveen Kaufman MD - 10/04/2023 11:44 AM CST [...] A PERMANENT PART OF THE MEDICAL RECORD. TING ENGINEER documented in this encounter Plan of Treatment Upcoming Encounters Date Type Department Care Team (Late st Contact Info) Description 01/20/2025 10:00 AM CDT Office Visit [facility] - Orthopedic Surgery [address] [place] [id number] Torrey Lafleur MD [address] [facility] [address] [place] [address] Scheduled Referrals Name Type Priority Associated Diagnoses Orde r Schedule Referral to Home Health Care Outpatient Referral Routine Infection of prosthetic joint, initial encounter (HCC) Ordered: 10/03/2023 documented as of this encounter Procedures Procedure Name Priority Date/Time Associated Diagnosis Comments CARDIAC RHYTHM STRIP ORDER 10/06/2023 12:03 PM TREATING ENGINEER GLUCOSE - POINT OF CARE Routine 10/04/2023 7:54 AM TREATING ENGINEER GLUCOSE - POINT OF CARE Routine 10/04/2023 12:00 AM TREATING ENGINEER GLUCOSE - POINT OF CARE Routine 10/03/2023 8:21 PM TREATING ENGINEER GLUCOSE - POINT OF CARE Routine 10/03/2023 4:51 PM TREATING ENGINEER GLUCOSE - POINT OF CARE Routine 10/03/2023 11:42 AM TREATING ENGINEER HGB HCT PANEL AM Draw 10/03/2023 8:51 AM TREATING ENGINEER OT EVAL AND TREAT Routine 10/03/2023 8:2 6 AM TREATING ENGINEER PT EVAL AND TREAT Routine 10/03/2023 8:2 6 AM TREATING ENGINEER GLUCOSE - POINT OF CARE Routine 10/03/2023 7:51 AM TREATING ENGINEER GLUCOSE - POINT OF CARE Routine 10/02/2023 8:56 PM TREATING ENGINEER GLUCOSE - POINT OF CARE Routine 10/02/2023 6:05 PM TREATING ENGINEER GLUCOSE - POINT OF CARE Routine 10/02/2023 4:25 PM TREATING ENGINEER GLUCOSE - POINT OF CARE Routine 10/02/2023 8:06 AM TREATING ENGINEER GLUCOSE - POINT OF CARE Routine 10/01/2023 8:07 PM TREATING ENGINEER GLUCOSE - POINT OF CARE Routine 10/01/2023 4:33 PM TREATING ENGINEER GLUCOSE - POINT OF CARE Routine 10/01/2023 11:23 AM TREATING ENGINEER GLUCOSE - POINT OF CARE Routine 10/01/2023 7:32 AM TREATING ENGINEER GLUCOSE - POINT OF CARE Routine 09/30/2023 8:46 PM TREATING ENGINEER GLUCOSE - POINT OF CARE Routine 09/30/2023 3:51 PM TREATING ENGINEER GLUCOSE - POINT OF CARE Routine 09/30/2023 11:21 AM TREATING ENGINEER GLUCOSE - POINT OF CARE Routine 09/30/2023 7:36 AM TREATING ENGINEER HEPATIC FUNCTION PANEL AM Draw 09/30/2023 3:49 AM TREATING ENGINEER GLUCOSE - POINT OF CARE Routine 09/29/2023 8:02 PM TREATING ENGINEER GLUCOSE - POINT OF CARE Routine 09/29/2023 3:23 PM TREATING ENGINEER GLUCOSE - POINT OF CARE Routine 09/29/2023 11:27 AM TREATING ENGINEER GLUCOSE - POINT OF CARE Routine 09/29/2023 7:41 AM TREATING ENGINEER GLUCOSE - POINT OF CARE Routine 09/28/2023 7:47 PM TREATING ENGINEER GLUCOSE - POINT OF CARE Routine 09/28/2023 4:31 PM TREATING ENGINEER GLUCOSE - POINT OF CARE Routine 09/28/2023 11:06 AM TREATING ENGINEER GLUCOSE - POINT OF CARE Routine 09/28/2023 7:44 AM TREATING ENGINEER GLUCOSE - POINT OF CARE Routine 09/27/2023 10:05 PM TREATING ENGINEER GLUCOSE - POINT OF CARE Routine 09/27/2023 4:08 PM TREATING ENGINEER GLUCOSE - POINT OF CARE Routine 09/27/2023 12:20 PM TREATING ENGINEER CULTURE WOUND+GRAM STAIN STAT 09/27/2023 11:21 AM TREATING ENGINEER Diagnosis unknown CULTURE ANAEROBE STAT 09/27/2023 11:2 1 AM TREATING ENGINEER Diagnosis unknown GLUCOSE - POINT OF CARE Routine 09/27/2023 7:50 AM TREATING ENGINEER GLUCOSE - POINT OF CARE Routine 09/26/2023 8:15 PM TREATING ENGINEER GLUCOSE - POINT OF CARE Routine 09/26/2023 4:31 PM TREATING ENGINEER GLUCOSE - POINT OF CARE Routine 09/26/2023 11:40 AM TREATING ENGINEER VANCOMYCIN LEVEL TROUGH STAT 09/26/2023 11:00 AM TREATING ENGINEER GLUCOSE - POINT OF CARE Routine 09/26/2023 7:38 AM TREATING ENGINEER VANCOMYCIN LEVEL PEAK STAT 09/26/2023 4:55 AM TREATING ENGINEER GLUCOSE - POINT OF CARE Routine 09/25/2023 9:55 PM TREATING ENGINEER GLUCOSE - POINT OF CARE Routine 09/25/2023 4:17 PM TREATING ENGINEER GLUCOSE - POINT OF CARE Routine 09/25/2023 12:00 PM TREATING ENGINEER CULTURE BLOOD Timed 09/25/2023 10:45 AM TREATING ENGINEER Infection of prosthetic joint, initial encounter (HCC) CULTURE BLOOD Timed 09/25/2023 10:41 AM TREATING ENGINEER Infection of prosthetic joint, initial encounter (HCC) GLUCOSE - POINT OF CARE Routine 09/25/2023 7:50 AM TREATING ENGINEER HEMOGLOBIN A1C Routine 09/25/2023 1:41 AM TREATING ENGINEER CBC W/O DIFFERENTIAL Routine 09/25/2023 1:41 AM TREATING ENGINEER BASIC METABOLIC PANEL (CALCIUM TOTAL) Routine 09/25/2023 1:41 AM TREATING ENGINEER GLUCOSE - POINT OF CARE Routine 09/24/2023 10:51 PM TREATING ENGINEER GLUCOSE - POINT OF CARE Routine 09/24/2023 9:50 PM TREATING ENGINEER CULTURE FUNGUS OTHER+FUNGUS SMEAR STAT 09/24/2023 9:01 PM TREATING ENGINEER Diagnosis unknown CULTURE TISSUE+GRAM STAIN STAT 09/24/2023 9:01 PM TREATING ENGINEER Diagnosis unknown CULTURE AFB+SMEAR STAT 09/24/2023 9:0 1 PM TREATING ENGINEER Diagnosis unknown CULTURE ANAEROBE STAT 09/24/2023 9:01 PM TREATING ENGINEER Diagnosis unknown CULTURE FUNGUS OTHER+FUNGUS SMEAR STAT 09/24/2023 8:58 PM TREATING ENGINEER Diagnosis unknown CULTURE TISSUE+GRAM STAIN STAT 09/24/2023 8:58 PM TREATING ENGINEER Diagnosis unknown CULTURE AFB+SMEAR STAT 09/24/2023 8: 58 PM TREATING ENGINEER Diagnosis unknown CULTURE ANAEROBE STAT 09/24/2023 8:58 PM TREATING ENGINEER Diagnosis unknown FL GUIDED NEEDLE PLACEMENT STAT 09/24/2023 8:45 PM TREATING ENGINEER Pain of right hip PATHOLOGY SMEAR BODY FLUID Add on 09/24/2023 8:28 PM TREATING ENGINEER Diagnosis unknown DIFFERENTIAL MANUAL FLUID Add on 09/24/2023 8:28 PM TREATING ENGINEER Diagnosis unknown CRYSTAL IDENTIFICATION FLUID STAT 09/24/2023 8:28 PM TREATING ENGINEER Diagnosis unknown CELL COUNT W DIFFERENTIAL FLUID STAT 09/24/2023 8:28 PM TREATING ENGINEER Diagnosis unknown CULTURE FUNGUS OTHER+FUNGUS SMEAR STAT 09/24/2023 8:27 PM TREATING ENGINEER Diagnosis unknown CULTURE FLUID+GRAM STAIN STAT 09/24/2023 8:27 PM TREATING ENGINEER Diagnosis unknown CULTURE AFB+SMEAR STAT 09/24/2023 8:2 7 PM TREATING ENGINEER Diagnosis unknown CULTURE ANAEROBE STAT 09/24/2023 8:27 PM TREATING ENGINEER Diagnosis unknown SD DRAIN/INJECT LARGE JOINT/BURSA 09/24/2023 8:00 PM TREATING ENGINEER Diagnosis unknown Special Needs NEEDS C-ARM, JESÚS TABLE, WOUND VAC - ORDRED FROM [employer](JED) 09/24 TM / SURGEON AVALIBLE @1900 GLUCOSE - POINT OF CARE Routine 09/24/2023 6:06 PM TREATING ENGINEER OT EVAL AND TREAT Routine 09/24/2023 4:2 6 PM TREATING ENGINEER PT EVAL AND TREAT Routine 09/24/2023 4:2 6 PM TREATING ENGINEER CT LOWER EXT RIGHT W CONTRAST STAT 09/24/2023 2:41 PM TREATING ENGINEER Pain of right hip VAS RIGHT VENOUS DUPLEX LE STAT 09/24/2023 1:37 PM TREATING ENGINEER Pain of right hip XR FEMUR RIGHT 2VW STAT 09/24/2023 11 :23 AM TREATING ENGINEER Pain of right hip XR PELVIS 1 OR 2VW STAT 09/24/2023 11 :23 AM TREATING ENGINEER Pain of right hip C-REACTIVE PROTEIN STAT 09/24/2023 10 :58 AM TREATING ENGINEER ERYTHROCYTE SEDIMENTATION RATE STAT 09/24/2023 10:58 AM TREATING ENGINEER DIFFERENTIAL MANUAL STAT 09/24/2023 1 0:58 AM TREATING ENGINEER CBC W AUTO DIFFERENTIAL STAT 09/24/2023 10:58 AM TREATING ENGINEER BASIC METABOLIC PANEL (CALCIUM TOTAL) STAT 09/24/2023 10:58 AM TREATING ENGINEER documented in this encounter Results * CARDIAC RHYTHM STRIP ORDER (10/06/2023 12:03 PM TREATING ENGINEER) Narrative 10/06/2023 12:03 PM TREATING ENGINEER Ordered by an unspecified provider. Scanned Document CARDIAC SERVICES ORD ERABLES * (ABNORMAL) GLUCOSE - POINT OF CARE (10/04/2023 7:54 AM TREATING ENGINEER) Glucose WB/POC 119(H) 70 - 106 mg/dL 10/04/2023 11:29 AM TREATING ENGINEER [facility] Specimen Type Cap Fingerstick 2023 11:29 AM TREATING ENGINEER [facility] Blood BLOOD SPECIMEN / Unknown 10/04/2023 7:54 AM TREATING ENGINEER 10/04/2023 11:29 AM TREATING ENGINEER Praveen Kaufman MD LAB - POINT OF CARE ORDERABLES Performing Organization Address [facility] Co de Phone Number [facility] [address] [place] [address] [phone] * (ABNORMAL) GLUCOSE - POINT OF CARE (10/04/2023 12:00 AM TREATING ENGINEER) Glucose WB/POC 181(H) 70 - 106 mg/dL 10/04/2023 12:10 AM TREATING ENGINEER [facility] Specimen Type Cap Fingerstick 2023 12:10 AM TREATING ENGINEER [facility] Blood BLOOD SPECIMEN / Unknown 10/04/2023 12:00 AM TREATING ENGINEER 10/04/2023 12:10 AM TREATING ENGINEER Praveen Kaufman MD LAB - POINT OF CARE ORDERABLES [facility] [address] [place] [address] [phone] * (ABNORMAL) GLUCOSE - POINT OF CARE (10/03/2023 8:21 PM TREATING ENGINEER) Glucose WB/POC 141(H) 70 - 106 mg/dL 10/03/2023 8:30 PM TREATING ENGINEER [facility] Specimen Type Cap Fingerstick 2023 8:30 PM TREATING ENGINEER [facility] Blood BLOOD SPECIMEN / Unknown 10/03/2023 8:21 PM TREATING ENGINEER 10/03/2023 8:30 PM TREATING ENGINEER Praveen Kaufman MD LAB - POINT OF CARE ORDERABLES Performing Organization Address [facility] Co de Phone Number [facility] [address] [place] [address] [phone] * (ABNORMAL) GLUCOSE - POINT OF CARE (10/03/2023 4:51 PM TREATING ENGINEER) Glucose WB/POC 134(H) 70 - 106 mg/dL 10/03/2023 5:01 PM TREATING ENGINEER [facility] Specimen Type Cap Fingerstick 2023 5:01 PM TREATING ENGINEER [facility] Blood BLOOD SPECIMEN / Unknown 10/03/2023 4:51 PM TREATING ENGINEER 10/03/2023 5:01 PM TREATING ENGINEER Praveen Kaufman MD LAB - POINT OF CARE ORDERABLES Performing Organization Address [facility] Co de Phone Number [facility] [address] [place] [address] [phone] * (ABNORMAL) GLUCOSE - POINT OF CARE (10/03/2023 11:42 AM TREATING ENGINEER) Glucose WB/POC 136(H) 70 - 106 mg/dL 10/03/2023 11:51 AM TREATING ENGINEER [facility] Specimen Type Cap Fingerstick 2023 11:51 AM TREATING ENGINEER [facility] Blood BLOOD SPECIMEN / Unknown 10/03/2023 11:42 AM TREATING ENGINEER 10/03/2023 11:51 AM TREATING ENGINEER Praveen Kaufman MD LAB - POINT OF CARE ORDERABLES Performing Organization Address [facility] Co de Phone Number [facility] [address] [place] [phone] * (ABNORMAL) HGB HCT PANEL (10/03/2023 8:51 AM TREATING ENGINEER) Hemoglobin 8.4(L) 13.3 - 17.5 g/dL 10/03/2023 9:29 AM TREATING ENGINEER [facility] Hematocrit 26.7(L) 38.7 - 51.1 % 10/03/2023 9:29 AM TREATING ENGINEER [facility] Blood BLOOD SPECIMEN / Unknown Lab Venipuncture / Unknown 10/03/2023 8:51 AM TREATING ENGINEER 10/03/2023 9:20 AM TREATING ENGINEER Praveen Kaufman MD LAB - HEMATOLOGY ORD ERABLES [facility] [address] [place] [address] [phone] * (ABNORMAL) GLUCOSE - POINT OF CARE (10/03/2023 7:51 AM TREATING ENGINEER) Glucose WB/POC 135(H) 70 - 106 mg/dL 10/03/2023 8:13 AM TREATING ENGINEER [facility] Specimen Type Cap Fingerstick 2023 8:13 AM TREATING ENGINEER [facility] Blood BLOOD SPECIMEN / Unknown 10/03/2023 7:51 AM TREATING ENGINEER 10/03/2023 8:13 AM TREATING ENGINEER Praveen Kaufman MD LAB - POINT OF CARE ORDERABLES Performing Organization Address [facility] Co de Phone Number [facility] [address] [place] [address] [phone] * (ABNORMAL) GLUCOSE - POINT OF CARE (10/02/2023 8:56 PM TREATING ENGINEER) Glucose WB/POC 274(H) 70 - 106 mg/dL 10/03/2023 12:18 AM TREATING ENGINEER [facility] Specimen Type Cap Fingerstick 2023 12:18 AM TREATING ENGINEER [facility] Blood BLOOD SPECIMEN / Unknown 10/02/2023 8:56 PM TREATING ENGINEER 10/03/2023 12:18 AM TREATING ENGINEER Praveen Kaufman MD LAB - POINT OF CARE ORDERABLES Performing Organization Address City/[facility]/ZIP Co de Phone Number [facility] [address] [place] [address] [phone] * (ABNORMAL) GLUCOSE - POINT OF CARE (10/02/2023 6:05 PM TREATING ENGINEER) Glucose WB/POC 165(H) 70 - 106 mg/dL 10/02/2023 6:11 PM TREATING ENGINEER [facility] Specimen Type Cap Fingerstick 2023 6:11 PM TREATING ENGINEER [facility] Blood BLOOD SPECIMEN / Unknown 10/02/2023 6:05 PM TREATING ENGINEER 10/02/2023 6:11 PM TREATING ENGINEER Praveen Kaufman MD LAB - POINT OF CARE ORDERABLES Performing Organization Address City/[facility]/ZIP Co de Phone Number [facility] [address] [place] [address] [phone] * (ABNORMAL) GLUCOSE - POINT OF CARE (10/02/2023 4:25 PM TREATING ENGINEER) Glucose WB/POC 150(H) 70 - 106 mg/dL 10/03/2023 7:28 AM TREATING ENGINEER [facility] Specimen Type Cap Fingerstick 2023 7:28 AM TREATING ENGINEER [facility] Blood BLOOD SPECIMEN / Unknown 10/02/2023 4:25 PM TREATING ENGINEER 10/03/2023 7:28 AM TREATING ENGINEER Praveen Kaufman MD LAB - POINT OF CARE ORDERABLES Performing Organization Address [facility]/ZIP Co de Phone Number [facility] [address] [place] [address] [phone] * GLUCOSE - POINT OF CARE (10/02/2023 8:06 AM TREATING ENGINEER) Glucose WB/POC 104 70 - 106 mg/dL 10/02/2023 8:12 AM TREATING ENGINEER [facility] Specimen Type Cap Fingerstick 2023 8:12 AM TREATING ENGINEER [facility] Blood BLOOD SPECIMEN / Unknown 10/02/2023 8:06 AM TREATING ENGINEER 10/02/2023 8:12 AM TREATING ENGINEER Praveen Kaufman MD LAB - POINT OF CARE ORDERABLES [facility] [address] [place] [address] [phone] * (ABNORMAL) GLUCOSE - POINT OF CARE (10/01/2023 8:07 PM TREATING ENGINEER) Glucose WB/POC 205(H) 70 - 106 mg/dL 10/01/2023 8:13 PM TREATING ENGINEER [facility] Specimen Type Cap Fingerstick 2023 8:13 PM TREATING ENGINEER [facility] Blood BLOOD SPECIMEN / Unknown 10/01/2023 8:07 PM TREATING ENGINEER 10/01/2023 8:13 PM TREATING ENGINEER Praveen Kaufman MD LAB - POINT OF CARE ORDERABLES Performing Organization Address [facility]/ZIP Co de Phone Number [facility] [address] [place] [address] * (ABNORMAL) GLUCOSE - POINT OF CARE (10/01/2023 4:33 PM TREATING ENGINEER) Glucose WB/POC 130(H) 70 - 106 mg/dL 10/01/2023 4:47 PM TREATING ENGINEER [facility] Specimen Type Arterial 10/01/2023 4:47 PM TREATING ENGINEER [facility] Blood BLOOD SPECIMEN / Unknown 10/01/2023 4:33 PM TREATING ENGINEER 10/01/2023 4:47 PM TREATING ENGINEER Praveen Kaufman MD LAB - POINT OF CARE ORDERABLES Performing Organization Address [facility]/ZIP Co de Phone Number [facility] [address] [place] [address] * (ABNORMAL) GLUCOSE - POINT OF CARE (10/01/2023 11:23 AM TREATING ENGINEER) Glucose WB/POC 198(H) 70 - 106 mg/dL 10/01/2023 11:33 AM TREATING ENGINEER [facility] Specimen Type Cap Fingerstick 2023 11:33 AM TREATING ENGINEER [facility] Blood BLOOD SPECIMEN / Unknown 10/01/2023 11:23 AM TREATING ENGINEER 10/01/2023 11:33 AM TREATING ENGINEER Praveen Kaufman MD LAB - POINT OF CARE ORDERABLES Performing Organization Address [facility] Co de Phone Number [facility] [address] [place] [address] [phone] * (ABNORMAL) GLUCOSE - POINT OF CARE (10/01/2023 7:32 AM TREATING ENGINEER) Glucose WB/POC 115(H) 70 - 106 mg/dL 10/01/2023 7:41 AM TREATING ENGINEER [facility] Specimen Type Cap Fingerstick 2023 7:41 AM TREATING ENGINEER [facility] Blood BLOOD SPECIMEN / Unknown 10/01/2023 7:32 AM TREATING ENGINEER 10/01/2023 7:41 AM TREATING ENGINEER Praveen Kaufman MD LAB - POINT OF CARE ORDERABLES Performing Organization Address [facility] Number [facility] [address] [place] [address] [phone] * (ABNORMAL) GLUCOSE - POINT OF CARE (09/30/2023 8:46 PM TREATING ENGINEER) Glucose WB/POC 152(H) 70 - 106 mg/dL 09/30/2023 8:56 PM TREATING ENGINEER [facility] Specimen Type Cap Fingerstick 2023 8:56 PM TREATING ENGINEER [facility] Blood BLOOD SPECIMEN / Unknown 09/30/2023 8:46 PM TREATING ENGINEER 09/30/2023 8:56 PM TREATING ENGINEER Praveen Kaufman MD LAB - POINT OF CARE ORDERABLES Performing Organization Address [facility] Co de Phone Number [facility] [address] [place] [address] [phone] * (ABNORMAL) GLUCOSE - POINT OF CARE (09/30/2023 3:51 PM TREATING ENGINEER) Glucose WB/POC 170(H) 70 - 106 mg/dL 09/30/2023 4:01 PM TREATING ENGINEER [facility] Specimen Type Cap Fingerstick 2023 4:01 PM TREATING ENGINEER [facility] Blood BLOOD SPECIMEN / Unknown 09/30/2023 3:51 PM TREATING ENGINEER 09/30/2023 4:01 PM TREATING ENGINEER Praveen Kaufman MD LAB - POINT OF CARE ORDERABLES [facility] [address] [place] [address] [phone] * (ABNORMAL) GLUCOSE - POINT OF CARE (09/30/2023 11:21 AM TREATING ENGINEER) Glucose WB/POC 194(H) 70 - 106 mg/dL 09/30/2023 11:45 AM TREATING ENGINEER [facility] Specimen Type Cap Fingerstick 2023 11:45 AM TREATING ENGINEER [facility] Blood BLOOD SPECIMEN / Unknown 09/30/2023 11:21 AM TREATING ENGINEER 09/30/2023 11:45 AM TREATING ENGINEER Praveen Kaufman MD LAB - POINT OF CARE ORDERABLES Performing Organization Address [facility] Co de Phone Number [facility] [address] [place] [address] [phone] * (ABNORMAL) GLUCOSE - POINT OF CARE (09/30/2023 7:36 AM TREATING ENGINEER) Glucose WB/POC 107(H) 70 - 106 mg/dL 09/30/2023 8:02 AM TREATING ENGINEER [facility] Specimen Type Cap Fingerstick 2023 8:02 AM TREATING ENGINEER [facility] Blood BLOOD SPECIMEN / Unknown 09/30/2023 7:36 AM TREATING ENGINEER 09/30/2023 8:02 AM TREATING ENGINEER Praveen Kaufman MD LAB - POINT OF CARE ORDERABLES [facility] [address] [place] [address] [phone] * (ABNORMAL) HEPATIC FUNCTION PANEL (09/30/2023 3:49 AM TREATING ENGINEER) Alkaline Phosphatase 76 40 - 150 U/L 09/30/2023 4:49 AM TREATING ENGINEER [facility] ALT 28 0 - 55 U/L 09/30/2023 4:49 AM TREATING ENGINEER [facility] AST 31 5 - 34 U/L 09/30/2023 4:49 AM [facility] Protein Total 5.8(L) 6.4 - 8.3 gm/dL 09/30/2023 4:49 AM [facility] Albumin 2.3(L) 3.4 - 5.0 gm/dL 09/30/2023 4:49 AM [facility] Bilirubin Total 0.5 0.2 - 1.2 mg/dL 09/30/2023 4:49 AM [facility] Bilirubin Direct 0.171 0.10 - 0.50 mg/dL 09/30/2023 4:49 AM TREATING ENGINEER [facility] Blood BLOOD SPECIMEN / Unknown Lab Venipuncture / Unknown 09/30/2023 3:49 AM TREATING ENGINEER 09/30/2023 3:56 AM TREATING ENGINEER Ashish Barnett MD LAB - CHEMIS TRY ORDERABLES Performing Organization Address City/[facility]/ZIP Co de Phone Number [facility] [address] [place] [phone] * (ABNORMAL) GLUCOSE - POINT OF CARE (09/29/2023 8:02 PM TREATING ENGINEER) Glucose WB/POC 208(H) 70 - 106 mg/dL 09/29/2023 8:11 PM TREATING ENGINEER [facility] Specimen Type Cap Fingerstick 2023 8:11 PM TREATING ENGINEER [facility] Blood BLOOD SPECIMEN / Unknown 09/29/2023 8:02 PM TREATING ENGINEER 09/29/2023 8:11 PM TREATING ENGINEER Praveen Kaufman MD LAB - POINT OF CARE ORDERABLES [facility] [address] [place] [address] [phone] * (ABNORMAL) GLUCOSE - POINT OF CARE (09/29/2023 3:23 PM TREATING ENGINEER) Glucose WB/POC 171(H) 70 - 106 mg/dL 09/29/2023 3:36 PM TREATING ENGINEER [facility] Specimen Type Cap Fingerstick 2023 3:36 PM TREATING ENGINEER [facility] Blood BLOOD SPECIMEN / Unknown 09/29/2023 3:23 PM TREATING ENGINEER 09/29/2023 3:36 PM TREATING ENGINEER Praveen Kaufman MD LAB - POINT OF CARE ORDERABLES Performing Organization Address [facility]/ZIP Co de Phone Number [facility] [address] [place] [address] [phone] * (ABNORMAL) GLUCOSE - POINT OF CARE (09/29/2023 11:27 AM TREATING ENGINEER) Glucose WB/POC 160(H) 70 - 106 mg/dL 09/29/2023 3:48 PM TREATING ENGINEER [facility] Specimen Type Cap Fingerstick 2023 3:48 PM TREATING ENGINEER [facility] Blood BLOOD SPECIMEN / Unknown 09/29/2023 11:27 AM TREATING ENGINEER 09/29/2023 3:48 PM TREATING ENGINEER Praveen Kaufman MD LAB - POINT OF CARE ORDERABLES Performing Organization Address [facility] Co de Phone Number [facility] [address] [place] [address] [phone] * (ABNORMAL) GLUCOSE - POINT OF CARE (09/29/2023 7:41 AM TREATING ENGINEER) Glucose WB/POC 119(H) 70 - 106 mg/dL 09/29/2023 9:03 AM TREATING ENGINEER [facility] Specimen Type Cap Fingerstick 2023 9:03 AM TREATING ENGINEER [facility] Blood BLOOD SPECIMEN / Unknown 09/29/2023 7:41 AM TREATING ENGINEER 09/29/2023 9:03 AM TREATING ENGINEER Praveen Kaufman MD LAB - POINT OF CARE ORDERABLES Performing Organization Address [facility] Co de Phone Number [facility] [address] [place] [address] [phone] * (ABNORMAL) GLUCOSE - POINT OF CARE (09/28/2023 7:47 PM TREATING ENGINEER) Glucose WB/POC 198(H) 70 - 106 mg/dL 09/28/2023 7:53 PM TREATING ENGINEER [facility] Specimen Type Cap Fingerstick 2023 7:53 PM TREATING ENGINEER [facility] Blood BLOOD SPECIMEN / Unknown 09/28/2023 7:47 PM TREATING ENGINEER 09/28/2023 7:53 PM TREATING ENGINEER Praveen Kaufman MD LAB - POINT OF CARE ORDERABLES [facility] [address] [place] [address] [phone] * (ABNORMAL) GLUCOSE - POINT OF CARE (09/28/2023 4:31 PM TREATING ENGINEER) Glucose WB/POC 131(H) 70 - 106 mg/dL 09/28/2023 4:41 PM TREATING ENGINEER [facility] Specimen Type Cap Fingerstick 2023 4:41 PM TREATING ENGINEER [facility] Blood BLOOD SPECIMEN / Unknown 09/28/2023 4:31 PM TREATING ENGINEER 09/28/2023 4:41 PM TREATING ENGINEER Praveen Kaufman MD LAB - POINT OF CARE ORDERABLES Performing Organization Address [facility]/ZIP Co de Phone Number [facility] [address] [place] [address] [phone] * (ABNORMAL) GLUCOSE - POINT OF CARE (09/28/2023 11:06 AM TREATING ENGINEER) Glucose WB/POC 155(H) 70 - 106 mg/dL 09/28/2023 11:16 AM TREATING ENGINEER [facility] Specimen Type Cap Fingerstick 2023 11:16 AM TREATING ENGINEER [facility] Blood BLOOD SPECIMEN / Unknown 09/28/2023 11:06 AM TREATING ENGINEER 09/28/2023 11:16 AM TREATING ENGINEER Praveen Kaufman MD LAB - POINT OF CARE ORDERABLES [facility] [address] [place] [address] [phone] * (ABNORMAL) GLUCOSE - POINT OF CARE (09/28/2023 7:44 AM TREATING ENGINEER) Glucose WB/POC 149(H) 70 - 106 mg/dL 09/28/2023 7:54 AM TREATING ENGINEER [facility] Specimen Type Cap Fingerstick 2023 7:54 AM TREATING ENGINEER [facility] Blood BLOOD SPECIMEN / Unknown 09/28/2023 7:44 AM TREATING ENGINEER 09/28/2023 7:54 AM TREATING ENGINEER Praveen Kaufman MD LAB - POINT OF CARE ORDERABLES Performing Organization Address City/[facility]/ZIP Co de Phone Number [facility] [address] [place] [address] [phone] * (ABNORMAL) GLUCOSE - POINT OF CARE (09/27/2023 10:05 PM TREATING ENGINEER) Glucose WB/POC 137(H) 70 - 106 mg/dL 09/27/2023 10:15 PM TREATING ENGINEER [facility] Specimen Type Cap Fingerstick 2023 10:15 PM TREATING ENGINEER [facility] Blood BLOOD SPECIMEN / Unknown 09/27/2023 10:05 PM TREATING ENGINEER 09/27/2023 10:15 PM TREATING ENGINEER Praveen Kaufman MD LAB - POINT OF CARE ORDERABLES Performing Organization Address [facility]/ZIP Co de Phone Number [facility] [address] [place] [address] [phone] * (ABNORMAL) GLUCOSE - POINT OF CARE (09/27/2023 4:08 PM TREATING ENGINEER) Glucose WB/POC 201(H) 70 - 106 mg/dL 09/27/2023 4:14 PM TREATING ENGINEER [facility] Specimen Type Cap Fingerstick 2023 4:14 PM TREATING ENGINEER [facility] Blood BLOOD SPECIMEN / Unknown 09/27/2023 4:08 PM TREATING ENGINEER 09/27/2023 4:14 PM TREATING ENGINEER Praveen Kaufman MD LAB - POINT OF CARE ORDERABLES [facility] [address] [place] [address] [phone] * (ABNORMAL) GLUCOSE - POINT OF CARE (09/27/2023 12:20 PM TREATING ENGINEER) Glucose WB/POC 130(H) 70 - 106 mg/dL 09/27/2023 12:26 PM TREATING ENGINEER [facility] Specimen Type Venous 09/27/2023 12:26 PM TREATING ENGINEER [facility] Blood BLOOD SPECIMEN / Unknown 09/27/2023 12:20 PM TREATING ENGINEER 09/27/2023 12:26 PM TREATING ENGINEER Praveen Kaufman MD LAB - POINT OF CARE ORDERABLES [facility] [address] [place] [address] * CULTURE WOUND+GRAM STAIN (09/27/2023 11:21 AM TREATING ENGINEER) Culture No growth MONALISA 09/30/2023 3:31 AM TREATING ENGINEER [facility] Gram Stain Light Polymorphonuclear cells 09/30/2023 3:31 AM TREATING ENGINEER [facility] Gram Stain No organisms seen 024 3:31 AM TREATING ENGINEER [facility] Microbiology ENTIRE HIP REGION / Unknown Collection / Unknown 09/27/2023 11:21 AM TREATING ENGINEER 09/27/2023 12:32 PM TREATING ENGINEER Comment:Pre-op diagnosis: Diagnosis unknown [R69] Narrative [facility] - 09/30/2023 3:31 AM TREATING ENGINEER Surgical Description: Right Hip Torrey Lafleur MD LAB - MICROBIOLOGY ORDERABLES [facility] [address] [place] [phone], [facility] [phone] * CULTURE ANAEROBE (09/27/2023 11:21 AM TREATING ENGINEER) Culture No anaerobic organisms isolated MONALISA 10/02/2023 1:25 PM TREATING ENGINEER [facility] Microbiology ENTIRE HIP REGION / Unknown 09/27/2023 11:21 AM TREATING ENGINEER 09/27/2023 12:32 PM TREATING ENGINEER Comment:Pre-op diagnosis: Diagnosis unknown [R69] Narrative [facility] - 10/02/2023 1:25 PM TREATING ENGINEER Surgical Description: Right Hip Torrey Lafleur MD LAB - MICROBIOLOGY ORDERABLES [facility] [address] [place] [address], [facility] [phone] * (ABNORMAL) GLUCOSE - POINT OF CARE (09/27/2023 7:50 AM TREATING ENGINEER) Glucose WB/POC 127(H) 70 - 106 mg/dL 09/27/2023 7:56 AM TREATING ENGINEER [facility] Specimen Type Cap Fingerstick 2023 7:56 AM TREATING ENGINEER [facility] Blood BLOOD SPECIMEN / Unknown 09/27/2023 7:50 AM TREATING ENGINEER 09/27/2023 7:56 AM TREATING ENGINEER Praveen Kaufman MD LAB - POINT OF CARE ORDERABLES Performing Organization Address City/[facility]/ZIP Co de Phone Number [facility] [address] [place] [address] [phone] * (ABNORMAL) GLUCOSE - POINT OF CARE (09/26/2023 8:15 PM TREATING ENGINEER) Glucose WB/POC 128(H) 70 - 106 mg/dL 09/26/2023 8:22 PM TREATING ENGINEER [facility] Specimen Type Cap Fingerstick 2023 8:22 PM TREATING ENGINEER [facility] Blood BLOOD SPECIMEN / Unknown 09/26/2023 8:15 PM TREATING ENGINEER 09/26/2023 8:22 PM TREATING ENGINEER Praveen Kaufman MD LAB - POINT OF CARE ORDERABLES Performing Organization Address City/[facility]/ZIP Co de Phone Number [facility] [address] [place] [address] [phone] * (ABNORMAL) GLUCOSE - POINT OF CARE (09/26/2023 4:31 PM TREATING ENGINEER) Glucose WB/POC 111(H) 70 - 106 mg/dL 09/26/2023 4:41 PM TREATING ENGINEER [facility] Specimen Type Cap Fingerstick 2023 4:41 PM TREATING ENGINEER [facility] Blood BLOOD SPECIMEN / Unknown 09/26/2023 4:31 PM TREATING ENGINEER 09/26/2023 4:41 PM TREATING ENGINEER Praveen Kaufman MD LAB - POINT OF CARE ORDERABLES Performing Organization Address [place]/[facility]/ZIP Co de Phone Number [facility] [address] [place] [address] [phone] * (ABNORMAL) GLUCOSE - POINT OF CARE (09/26/2023 11:40 AM TREATING ENGINEER) Glucose WB/POC 115(H) 70 - 106 mg/dL 09/26/2023 11:49 AM TREATING ENGINEER [facility] Specimen Type Cap Fingerstick 2023 11:49 AM TREATING ENGINEER [facility] Blood BLOOD SPECIMEN / Unknown 09/26/2023 11:40 AM TREATING ENGINEER 09/26/2023 11:49 AM TREATING ENGINEER Praveen Kaufman MD LAB - POINT OF CARE ORDERABLES Performing Organization Address [facility] Co de Phone Number [facility] [address] [place] [phone] * (ABNORMAL) VANCOMYCIN LEVEL TROUGH (09/26/2023 11:00 AM TREATING ENGINEER) Vancomycin Trough 9.8(L) 10.0 - 20.0 ug/mL 09/26/2023 11:58 AM TREATING ENGINEER [facility] Blood BLOOD SPECIMEN / Unknown Lab Venipuncture / Unknown 09/26/2023 11:00 AM TREATING ENGINEER 09/26/2023 11:25 AM TREATING ENGINEER Praveen Kaufman MD LAB - CHEMISTRY BENJA DICK Performing Organization Address City/[facility]/ZIP Co de Phone Number ELLIS [facility] [address] [place] [address] [phone] * (ABNORMAL) GLUCOSE - POINT OF CARE (09/26/2023 7:38 AM TREATING ENGINEER) Glucose WB/POC 113(H) 70 - 106 mg/dL 09/26/2023 7:57 AM TREATING ENGINEER [facility] Specimen Type Cap Fingerstick 2023 7:57 AM TREATING ENGINEER [facility] Blood BLOOD SPECIMEN / Unknown 09/26/2023 7:38 AM TREATING ENGINEER 09/26/2023 7:57 AM TREATING ENGINEER Praveen Kaufman MD LAB - POINT OF CARE ORDERABLES Performing Organization Address City/[facility]/ZIP Co de Phone Number [facility] [address] [place] [phone] * (ABNORMAL) VANCOMYCIN LEVEL PEAK (09/26/2023 4:55 AM TREATING ENGINEER) [facility] Vancomycin Peak 18.3(L) 25.0 - 40.0 ug/mL 09/26/2023 5:37 AM TREATING ENGINEER [facility] Blood BLOOD SPECIMEN / Unknown Lab Venipuncture / Unknown 09/26/2023 4:55 AM TREATING ENGINEER 09/26/2023 5:18 AM TREATING ENGINEER Praveen Kaufman MD LAB - CHEMISTRY ORDE RABLES Performing Organization Address [facility] Co de Phone Number [facility] [address] [place] [phone] * (ABNORMAL) GLUCOSE - POINT OF CARE (09/25/2023 9:55 PM TREATING ENGINEER) Pathologist [facility] Glucose WB/POC 170(H) 70 - 106 mg/dL 09/26/2023 4:55 AM TREATING ENGINEER [facility] Specimen Type Cap Fingerstick 2023 4:55 AM TREATING ENGINEER [facility] Blood BLOOD SPECIMEN / Unknown 09/25/2023 9:55 PM TREATING ENGINEER 09/26/2023 4:55 AM TREATING ENGINEER Praveen Kaufman MD LAB - POINT OF CARE ORDERABLES Performing Organization Address [facility] Co de Phone Number [facility] [address] [place] [phone] * (ABNORMAL) GLUCOSE - POINT OF CARE (09/25/2023 4:17 PM TREATING ENGINEER) Glucose WB/POC 148(H) 70 - 106 mg/dL 09/25/2023 4:43 PM TREATING ENGINEER [facility] Specimen Type Cap Fingerstick 2023 4:43 PM TREATING ENGINEER [facility] Blood BLOOD SPECIMEN / Unknown 09/25/2023 4:17 PM TREATING ENGINEER 09/25/2023 4:43 PM TREATING ENGINEER Praveen Kaufamn MD LAB - POINT OF CARE ORDERABLES Performing Organization Address [facility] Co de Phone Number [facility] [address] [place], [place] [phone] * (ABNORMAL) GLUCOSE - POINT OF CARE (09/25/2023 12:00 PM TREATING ENGINEER) Glucose WB/POC 208(H) 70 - 106 mg/dL 09/25/2023 4:14 PM TREATING ENGINEER [facility] Specimen Type Cap Fingerstick 2023 4:14 PM TREATING ENGINEER [facility] Blood BLOOD SPECIMEN / Unknown 09/25/2023 12:00 PM TREATING ENGINEER 09/25/2023 4:14 PM TREATING ENGINEER Praveen Kaufman MD LAB - POINT OF CARE ORDERABLES Performing Organization Address [facility] Co de Phone Number [facility] [address] [place] [address] * CULTURE BLOOD (09/25/2023 10:45 AM TREATING ENGINEER) Culture No growth day 5 MONALISA 09/30/2023 2:01 PM TREATING ENGINEER [facility] Blood PERIPHERAL BLOOD / Unknown Lab Venipuncture / Unknown 09/25/2023 10:45 AM TREATING ENGINEER 09/25/2023 11:04 AM TREATING ENGINEER Ashish Barnett MD LAB - MICROB IOLOGY ORDERABLES Performing Organization Address City/[facility]/ZIP Co de Phone Number [facility] [address] [place] [address], [facility] [phone] * CULTURE BLOOD (09/25/2023 10:41 AM TREATING ENGINEER) Pathologist [facility] Culture No growth day 5 MONALISA 09/30/2023 2:01 PM TREATING ENGINEER [facility] Blood PERIPHERAL BLOOD / Unknown Lab Venipuncture / Unknown 09/25/2023 10:41 AM TREATING ENGINEER 09/25/2023 11:05 AM TREATING ENGINEER Ashish Barnett MD LAB - MICROB IOLOGY ORDERABLES [facility] [address] [place] [address], [facility] [phone] * (ABNORMAL) GLUCOSE - POINT OF CARE (09/25/2023 7:50 AM TREATING ENGINEER) [facility] Glucose WB/POC 153(H) 70 - 106 mg/dL 09/25/2023 8:00 AM TREATING ENGINEER [facility] Specimen Type Cap Fingerstick 2023 8:00 AM TREATING ENGINEER [facility] Blood BLOOD SPECIMEN / Unknown 09/25/2023 7:50 AM TREATING ENGINEER 09/25/2023 8:00 AM TREATING ENGINEER Praveen Kaufman MD LAB - POINT OF CARE ORDERABLES Performing Organization Address City/[facility]/ZIP Co de Phone Number [facility] [address] [place] [address] * (ABNORMAL) CBC W/O DIFFERENTIAL (09/25/2023 1:41 AM TREATING ENGINEER) Pathologist [facility] WBC 9.9 4.0 - 10.7 x10E9/L 09/25/2023 2:46 AM TREATING ENGINEER [facility] RBC Count 3.49(L) 4.30 - 5.80 x10E12/L 09/25/2023 2:46 AM TREATING ENGINEER [facility] Hemoglobin 10.8(L) 13.3 - 17.5 g/dL 09/25/2023 2:46 AM TREATING ENGINEER [facility] Hematocrit 33.6(L) 38.7 - 51.1 % 09/25/2023 2:46 AM TREATING ENGINEER [facility] MCV 96.3 80.0 - 98.0 fL 09/25/2023 2:46 AM [facility] MCH 30.9 26.7 - 33.6 pg 09/25/2023 2:46 AM [facility] MCHC 32.1 31.7 - 36.3 g/dL 09/25/2023 2:46 AM [facility] RDW-CV 13.6 11.3 - 14.8 % 09/25/2023 2:46 AM [facility] Platelet Count 165 150 - 420 x10E9/L 09/25/2023 2:46 AM [facility] MPV 9.4 7.8 - 11.4 fL 09/25/2023 2:46 AM [facility] Blood BLOOD SPECIMEN / Unknown Lab Venipuncture / Unknown 09/25/2023 1:41 AM TREATING ENGINEER 09/25/2023 2:25 AM [facility] Asaph Andreyungap DOCUMENT CONTROL ASSOCIATE-DRILL SHARPENER OPERATOR LAB - HEMATOLO GY ORDERABLES Performing Organization Address City/State/[facility] Co de Phone Number [facility] [address] [place] [phone] * (ABNORMAL) BASIC METABOLIC PANEL (CALCIUM TOTAL) (09/25/2023 1:41 AM [facility]) Glucose 182(H) 70 - 105 mg/dL 09/25/2023 3:12 AM [facility] Sodium 138 136 - 145 mmol/L 09/25/2023 3:12 AM [facility] Potassium 4.0 3.5 - 5.1 mmol/L 09/25/2023 3:12 AM [facility] Chloride 106 98 - 107 mmol/L 09/25/2023 3:12 AM [facility] CO2 22 22 - 29 mmol/L 09/25/2023 3:12 AM [facility] Calcium 8.6 8.4 - 10.4 mg/dL 09/25/2023 3:12 AM [facility] Anion Gap 10 6 - 16 mmol/L 09/25/2023 3:12 AM [facility] BUN 14 7 - 26 mg/dL 09/25/2023 3:12 AM [facility] Creatinine 0.88 0.72 - 1.25 mg/dL 09/25/2023 3:12 AM [facility] eGFR by CKD-EPI >90 >=90 mL/min/1.7 3 m2 09/25/2023 3:12 AM [facility] Blood BLOOD SPECIMEN / Unknown Lab Venipuncture / Unknown 09/25/2023 1:41 AM TREATING ENGINEER 09/25/2023 2:25 AM TREATING ENGINEER Sarah Parsons DOCUMENT CONTROL ASSOCIATE-DRILL SHARPENER OPERATOR LAB - CHEMISTR Y ORDERABLES [facility] [address] [place] [address] * (ABNORMAL) HEMOGLOBIN A1C (09/25/2023 1:41 AM TREATING ENGINEER) Hemoglobin A1c 6.4(H) <5.7 % 09/25/2023 3:16 AM [facility] Estimated Average Glucose 137 mg/dL 09/25/2023 3:16 AM [facility] Blood BLOOD SPECIMEN / Unknown Lab Venipuncture / Unknown 09/25/2023 1:41 AM TREATING ENGINEER 09/25/2023 2:25 AM TREATING ENGINEER Narrative [facility] - 09/25/2023 3:16 AM [facility] HbA1c Interpretation: Normal: < 5.7% Pre-diabetes: 5.7-6.4% [...] - CHEMISTR Y ORDERABLES Performing Organization Address [facility]/ZIP Co de Phone Number [facility] [address] [place] [phone] * (ABNORMAL) GLUCOSE - POINT OF CARE (09/24/2023 10:51 PM TREATING ENGINEER) Glucose WB/POC 135(H) 70 - 106 mg/dL 09/24/2023 10:59 PM TREATING ENGINEER [facility] Specimen Type Cap Fingerstick 2023 10:59 PM TREATING ENGINEER [facility] Blood BLOOD SPECIMEN / Unknown 09/24/2023 10:51 PM TREATING ENGINEER 09/24/2023 10:59 PM TREATING ENGINEER Bryant Jones MD LAB - POINT OF CARE ORDERABLES Performing Organization Address [facility] Co de Phone Number [facility] [address] [place] [phone] * (ABNORMAL) GLUCOSE - POINT OF CARE (09/24/2023 9:50 PM TREATING ENGINEER) Glucose WB/POC 140(H) 70 - 106 mg/dL 09/26/2023 10:03 AM TREATING ENGINEER [facility] Specimen Type Cap Fingerstick 2023 10:03 AM TREATING ENGINEER [facility] Blood BLOOD SPECIMEN / Unknown 09/24/2023 9:50 PM TREATING ENGINEER 09/26/2023 10:03 AM TREATING ENGINEER Bryant Jones MD LAB - POINT OF CARE ORDERABLES Performing Organization Address [facility]/ZIP Co de Phone Number [facility] [address] [place] [phone] * CULTURE FUNGUS OTHER+FUNGUS SMEAR (09/24/2023 9:01 PM TREATING ENGINEER) Culture No fungus isolated MONALISA 10/22/2023 6:59 AM CDT [facility] Fungus Stain No yeast or hyphae seen 10/22/2023 6:59 AM CDT [facility] Microbiology TISSUE SPECIMEN / Unknown Collection / Unknown 09/24/2023 9:01 PM TREATING ENGINEER 09/24/2023 10:11 PM TREATING ENGINEER Comment:Pre-op diagnosis: Diagnosis unknown [R69] Narrative [facility] - 10/22/2023 6:59 AM CDT Surgical Description: Right Hip Tissue Torrey Lafleur MD LAB - MICROBIOLOGY ORDERABLES Performing Organization Address City/[facility] Co de Phone Number [facility] [address] [place] [address], [facility] [phone] * (ABNORMAL) CULTURE TISSUE+GRAM STAIN (09/24/2023 9:01 PM TREATING ENGINEER) Culture Rare Streptococcus agalactiae (Group B)(AA) MONALISA 09/28/2023 7:22 AM TREATING ENGINEER [facility] Gram Stain Rare Polymorphonuclear cells 09/28/2023 7:22 AM [facility] Gram Stain No organisms seen 024 7:22 AM [facility] Microbiology TISSUE SPECIMEN / Unknown Collection / Unknown 09/24/2023 9:01 PM TREATING ENGINEER 09/24/2023 10:11 PM TREATING ENGINEER Comment:Pre-op diagnosis: Diagnosis unknown [R69] Narrative [facility] - 09/28/2023 7:22 AM TREATING ENGINEER Susceptibility testing of penicillin, other beta-lactam antibiotics, and vancomycin is not necessary for beta-hemolytic streptococci groups A,B,C and G because resistant strains have not been recognized. Refer to previously reported susceptibility testing, specimen number: [id number]. Surgical Description: Right Hip Tissue Torrey Lafleur MD LAB - MICROBIOLOGY ORDERABLES Performing Organization Address City/[facility] Co de Phone Number [facility] [address] [place] [address], [facility] [phone] * CULTURE AFB+SMEAR (09/24/2023 9:01 PM TREATING ENGINEER) Culture No acid-fast bacillus isolated 11/05/2023 6:39 AM CDT [facility]CRO[facility] AFB Smear No acid-fast bacilli seen 11/05/2023 6:39 AM CDT [facility]CRO[facility] Microbiology TISSUE SPECIMEN / Unknown Collection / Unknown 09/24/2023 9:01 PM TREATING ENGINEER 09/24/2023 10:11 PM TREATING ENGINEER Comment:Pre-op diagnosis: Diagnosis unknown [R69] Narrative [facility] - 11/05/2023 6:39 AM CDT Surgical Description: Right Hip Tissue Torrey Lafleur MD LAB - MICROBIOLOGY ORDERABLES Performing Organization Address City/[facility]/ZIP Co de Phone Number [facility] [address] [place] [phone], [facility] [phone] * CULTURE ANAEROBE (09/24/2023 9:01 PM TREATING ENGINEER) Culture No anaerobic organisms isolated to date. MONALISA 09/30/2023 2:53 PM TREATING ENGINEER [facility] Microbiology TISSUE SPECIMEN / Unknown Collection / Unknown 09/24/2023 9:01 PM TREATING ENGINEER 09/24/2023 10:11 PM TREATING ENGINEER Comment:Pre-op diagnosis: Diagnosis unknown [R69] Narrative [facility] - 09/30/2023 2:53 PM TREATING ENGINEER Surgical Description: Right Hip Tissue Torrey Lafleur MD LAB - MICROBIOLOGY ORDERABLES Performing Organization Address City/[facility] Co de Phone Number [facility] [address] [place] [address], [facility] [phone] * CULTURE FUNGUS OTHER+FUNGUS SMEAR (09/24/2023 8:58 PM TREATING ENGINEER) Culture No fungus isolated MONALISA 10/22/2023 6:59 AM CDT [facility] Fungus Stain No yeast or hyphae seen 10/22/2023 6:59 AM CDT [facility]CRO[facility] Microbiology ENTIRE HIP REGION / Unknown 09/24/2023 8:58 PM TREATING ENGINEER 09/24/2023 10:17 PM TREATING ENGINEER Comment:Pre-op diagnosis: Diagnosis unknown [R69] Narrative [facility] - 10/22/2023 6:59 AM CDT Surgical Description: Right Hip Swab Torrey Lafleur MD LAB - MICROBIOLOGY ORDERABLES Performing Organization Address City/[facility]/ZIP Co de Phone Number [facility] [address] [place] [address], [facility] [phone] * (ABNORMAL) CULTURE TISSUE+GRAM STAIN (09/24/2023 8:58 PM TREATING ENGINEER) Culture Light Streptococcus agalactiae (Group B)(AA) MONALISA 09/28/2023 4:40 AM TREATING ENGINEER [facility] Gram Stain Heavy Red blood cells 09/28/2023 4:40 AM TREATING ENGINEER [facility] Gram Stain Moderate Polymorphonuclear cells 09/28/2023 4:40 AM TREATING ENGINEER [facility] Gram Stain No organisms seen 024 4:40 AM TREATING ENGINEER [facility] Microbiology ENTIRE HIP REGION / Unknown 09/24/2023 8:58 PM TREATING ENGINEER 09/24/2023 10:17 PM TREATING ENGINEER Comment:Pre-op diagnosis: Diagnosis unknown [R69] Narrative [facility] - 09/28/2023 4:40 AM TREATING ENGINEER Susceptibility testing of penicillin, other beta-lactam antibiotics, [...] Torrey Lafleur MD LAB - MICROBIOLOGY ORDERABLES [facility] [address] [place] [address], [facility] [phone] * CULTURE AFB+SMEAR (09/24/2023 8:58 PM TREATING ENGINEER) Culture No acid-fast bacillus isolated 11/05/2023 6:39 AM CDT [facility]CRO[facility] AFB Smear No acid-fast bacilli seen 11/05/2023 6:39 AM CDT [facility] Microbiology ENTIRE HIP REGION / Unknown 09/24/2023 8:58 PM TREATING ENGINEER 09/24/2023 10:17 PM TREATING ENGINEER Comment:Pre-op diagnosis: Diagnosis unknown [R69] Narrative [facility] - 11/05/2023 6:39 AM CDT Surgical Description: Right Hip Swab Torrey Lafleur MD LAB - MICROBIOLOGY ORDERABLES Performing Organization Address [facility] de Phone Number [facility] [address] [place] [address], [facility] [phone] * CULTURE ANAEROBE (09/24/2023 8:58 PM TREATING ENGINEER) Culture No anaerobic organisms isolated to date. MONALISA 09/30/2023 2:53 PM TREATING ENGINEER [facility] Microbiology ENTIRE HIP REGION / Unknown 09/24/2023 8:58 PM TREATING ENGINEER 09/24/2023 10:17 PM TREATING ENGINEER Comment:Pre-op diagnosis: Diagnosis unknown [R69] Narrative [facility] - 09/30/2023 2:53 PM TREATING ENGINEER Surgical Description: Right Hip Swab Torrey Lafleur MD LAB - MICROBIOLOGY ORDERABLES Performing Organization Address [facility] Co de Phone Number [facility] [address] [place] [address], [facility] [phone] * FL GUIDED NEEDLE PLACEMENT (09/24/2023 8:45 PM TREATING ENGINEER) Narrative [facility] - 09/25/2023 3:44 PM TREATING ENGINEER See Notes. Drew Lerma DO FLUOROSCOPY ORD ERABLES Performing Organization Address City/State/[facility] Co de Phone Number [facility] [address] [place] [phone] * PATHOLOGY SMEAR BODY FLUID (09/24/2023 8:28 PM TREATING ENGINEER) Path Review Fluid Confirmed 09/25/2023 2:14 PM TREATING ENGINEER [facility] Fluid SYNOVIAL FLUID / Unknown Collection / Unknown 09/24/2023 8:28 PM TREATING ENGINEER 09/24/2023 10:10 PM TREATING ENGINEER Narrative [facility] - 09/25/2023 2:14 PM TREATING ENGINEER Final Diagnosis- Synovial fluid, right hip, aspiration time of arthroplasty: 1. 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 Test Performed By: Torrey Vargas MD 09/25/2023 ??2:06 PM Torrey Lafleur MD LAB - PATHOLOGY/CYT OLOGY ORDERABLES Performing Organization Address [facility] de Phone Number [facility] [address] [place] [phone] * DIFFERENTIAL MANUAL FLUID (09/24/2023 8:28 PM TREATING ENGINEER) Fluid Source Synovial 09/25/2023 2:14 PM TREATING ENGINEER [facility] Body Fluid Total Cell Count 100 x10E6/L 09/25/2023 2:14 PM TREATING ENGINEER [facility] Neutrophils Fluid Percent 81 % 09/25/2023 2:14 PM TREATING ENGINEER [facility] Lymphocytes Fluid Percent 17 % 09/25/2023 2:14 PM TREATING ENGINEER [facility] Macrophages Fluid Percent 2 % 09/25/2023 2:14 PM TREATING ENGINEER [facility] Fluid SYNOVIAL FLUID / Unknown Collection / Unknown 09/24/2023 8:28 PM TREATING ENGINEER 09/24/2023 10:10 PM TREATING ENGINEER Narrative [facility] - 09/25/2023 2:14 PM TREATING ENGINEER No reference ranges established for body fluid differential cell counts. ??The test results must be integrated into the clinical context for interpretation. Torrey Lafleur MD LAB - BODY FLUID OR DERABLES Performing Organization Address [facility] Co de Phone Number [facility] [address] [place] [address] * CRYSTAL IDENTIFICATION FLUID (09/24/2023 8:28 PM TREATING ENGINEER) Fluid Type Synovial 09/24/2023 11:04 PM TREATING ENGINEER [facility] Crystals Fluid None None 09/24/2023 11:04 PM TREATING ENGINEER [facility] Fluid SYNOVIAL FLUID / Unknown Collection / Unknown 09/24/2023 8:28 PM TREATING ENGINEER 09/24/2023 10:10 PM TREATING ENGINEER Comment:Pre-op diagnosis: Diagnosis unknown [R69] Torrey Lafleur MD LAB - BODY FLUID OR DERABLES Performing Organization Address [facility] Co de Phone Number [facility] [address] [place] [phone] * (ABNORMAL) CELL COUNT W DIFFERENTIAL FLUID (09/24/2023 8:28 PM TREATING ENGINEER) Fluid Source Synovial 09/25/2023 1:47 AM TREATING ENGINEER [facility] Fluid Appearance TURBID 09/25/2023 1:47 AM TREATING ENGINEER [facility] Fluid Color OTHER 09/25/2023 1:47 AM TREATING ENGINEER [facility] Total Nucleated Cells Fluid 98,920(H) <=200 x10E6/L 09/25/2023 1:47 AM TREATING ENGINEER [facility] RBC Count Fluid 40,000 Reference Range Not Established x10E6/L 09/25/2023 1:47 AM TREATING ENGINEER [facility] Fluid SYNOVIAL FLUID / Unknown Collection / Unknown 09/24/2023 8:28 PM TREATING ENGINEER 09/24/2023 10:10 PM TREATING ENGINEER Comment:Pre-op diagnosis: Diagnosis unknown [R69] Narrative [facility] - 09/25/2023 1:47 AM TREATING ENGINEER No reference ranges established for body fluid cell counts. Any reference ranges provided are derived from published literature. The test results must be integrated into the clinical context for interpretation. Torrey Lafleur MD LAB - BODY FLUID OR DERABLES Performing Organization Address [facility] Co de Phone Number [facility] [address] [place] [address] [phone] * CULTURE FUNGUS OTHER+FUNGUS SMEAR (09/24/2023 8:27 PM TREATING ENGINEER) Culture No fungus isolated MONALISA 10/22/2023 6:59 AM CDT [facility] Fungus Stain No yeast or hyphae seen 10/22/2023 6:59 AM CDT [facility] Microbiology SYNOVIAL FLUID / Unknown Collection / Unknown 09/24/2023 8:27 PM TREATING ENGINEER 09/24/2023 10:12 PM TREATING ENGINEER Comment:Pre-op diagnosis: Diagnosis unknown [R69] Torrey Lafleur MD LAB - MICROBIOLOGY ORDERABLES Performing Organization Address City/[facility]/ZIP Co de Phone Number [facility] [address] [place] [address], [facility] [phone] * (ABNORMAL) CULTURE FLUID+GRAM STAIN (09/24/2023 8:27 PM TREATING ENGINEER) Culture Rare Streptococcus agalactiae (Group B)(AA) MONALISA 09/28/2023 7:20 AM TREATING ENGINEER [facility] Gram Stain Heavy Polymorphonuclear cells 09/28/2023 7:20 AM TREATING ENGINEER [facility] Gram Stain No organisms seen 024 7:20 AM TREATING ENGINEER [facility] Microbiology SYNOVIAL FLUID / Unknown Collection / Unknown 09/24/2023 8:27 PM TREATING ENGINEER 09/24/2023 10:12 PM TREATING ENGINEER Comment:Pre-op diagnosis: Diagnosis unknown [R69] Narrative [facility] - 09/28/2023 7:20 AM TREATING ENGINEER Susceptibility testing of penicillin, other beta-lactam antibiotics, and vancomycin is not necessary for beta-hemolytic streptococci groups A,B,C and G because resistant strains have not been recognized. Refer to previously reported susceptibility testing, specimen number: [id number]. Torrey Lafleur MD LAB - MICROBIOLOGY ORDERABLES Performing Organization Address City/[facility]/ZIP Co de Phone Number [facility] [address] [place] [address], [facility] [phone] * CULTURE AFB+SMEAR (09/24/2023 8:27 PM TREATING ENGINEER) Culture No acid-fast bacillus isolated 11/05/2023 6:39 AM CDT [facility]CRO[facility] AFB Smear No acid-fast bacilli seen 11/05/2023 6:39 AM CDT [facility] Microbiology SYNOVIAL FLUID / Unknown Collection / Unknown 09/24/2023 8:27 PM TREATING ENGINEER 09/24/2023 10:12 PM TREATING ENGINEER Comment:Pre-op diagnosis: Diagnosis unknown [R69] Torrey Lafleur MD LAB - MICROBIOLOGY ORDERABLES Performing Organization Address City/[facility]/ZIP Co de Phone Number [facility] MICROBIOLOGY [address] [place] [address], [facility] [phone] * CULTURE ANAEROBE (09/24/2023 8:27 PM TREATING ENGINEER) Culture No anaerobic organisms isolated to date. MONALISA 09/30/2023 2:53 PM TREATING ENGINEER [facility] MICROBIOLOGY Microbiology SYNOVIAL FLUID / Unknown Collection / Unknown 09/24/2023 8:27 PM TREATING ENGINEER 09/24/2023 10:12 PM TREATING ENGINEER Comment:Pre-op diagnosis: Diagnosis unknown [R69] Torrey Lafleur MD LAB - MICROBIOLOGY ORDERABLES Performing Organization Address [facility] Co de Phone Number [facility] MICROBIOLOGY [address] [place] [address], [facility] [phone] * (ABNORMAL) GLUCOSE - POINT OF CARE (09/24/2023 6:06 PM TREATING ENGINEER) Glucose WB/POC 118(H) 70 - 106 mg/dL 09/24/2023 8:10 PM TREATING ENGINEER [facility] Specimen Type Cap Fingerstick 2023 8:10 PM TREATING ENGINEER [facility] Blood BLOOD SPECIMEN / Unknown 09/24/2023 6:06 PM TREATING ENGINEER 09/24/2023 8:10 PM TREATING ENGINEER Bryant Jones MD LAB - POINT OF CARE ORDERABLES Performing Organization Address City/[facility]/ZIP Co de Phone Number [facility] [address] [place] [address] * CT LOWER EXT RIGHT W CONTRAST (09/24/2023 2:41 PM TREATING ENGINEER) Anatomical Region Laterality Modality Lower Extremity Computed Tomogra phy 09/24/2023 2:53 PM TREATING ENGINEER Impressions 09/24/2023 2:57 PM TREATING ENGINEER IMPRESSION: Fluid or soft tissue thickening lateral to the right greater trochanter without rim-enhancing fluid collection. > Interpreting Provider: Leelee Kramer MD on 09/24/2023 2:57 PM Narrative 09/24/2023 2:57 PM TREATING ENGINEER PROCEDURE: ??CT LOWER EXT RIGHT W CONTRAST [...] RIGHT VENOUS DUPLEX LE (09/24/2023 1:37 PM TREATING ENGINEER) Anatomical Region Laterality Modality Lower Extremity Ultrasound 09/24/2023 3:44 PM TREATING ENGINEER Narrative Procedure Note Antonio Gillette MD - 09/24/2023 [place] [address] Lower Extremity Venous Ultrasound Report Pat.Name: TAYLOR RUTLEDGE Zoey.ID: [id number] St.Date: 09/24/2023 Refer.MD: Drew Lerma Exam Time: 3:44:00 PM Study Type:LE Venous Age: 9 1965,58Y Sex: MALE Sonogrphr: Cheryl Gaines RVT Pat. Stat.:Inpatient ICD - 9: M25.551 Reason for Study: Pain -Leg, right Procedures: Lower Extremity Venous - Right Race: 1 Visit ID: [id number] ++++++++++++++++++++++++++++++++++++ SUMMARY: ++++++++++++++++++++++++++++++++++++ Technically difficult study. No [...] TRAUMA 2 VW RIGHT (09/24/2023 11:23 AM TREATING ENGINEER) Anatomical Region Laterality Modality Lower Extremity Radiographic Sabi ging 09/24/2023 11:3 1 AM TREATING ENGINEER Narrative 09/24/2023 11:31 AM TREATING ENGINEER PROCEDURE: ??XR FEMUR RIGHT 2VW, DATE/TIME OF EXAM: ??09/24/2023 11:24 AM, LOCATION [facility] INDICATION: M25.551: Pain in right hip Right [...] DATE/TIME OF EXAM: 09/24/2023 11:24 AM, LOCATION [facility] INDICATION: M25.551: Pain in right hip Right [...] PELVIS 1 OR 2VW (09/24/2023 11:23 AM TREATING ENGINEER) Anatomical Region Laterality Modality Pelvis Radiographic Asbi ging 09/24/2023 11:3 0 AM TREATING ENGINEER Narrative 09/24/2023 11:31 AM TREATING ENGINEER PROCEDURE: ??XR PELVIS 1 OR 2VW, DATE/TIME OF EXAM: ??09/24/2023 11:23 AM, LOCATION [facility] INDICATION: M25.551: Pain in right hip AP [...] DATE/TIME OF EXAM: 09/24/2023 11:23 AM, LOCATION [facility] INDICATION: M25.551: Pain in right hip AP [...] * (ABNORMAL) C-REACTIVE PROTEIN (09/24/2023 10:58 AM TREATING ENGINEER) C-Reactive Protein 5.64(H) <=0.50 mg/dL 09/24/2023 12:23 PM TREATING ENGINEER [facility] Blood BLOOD SPECIMEN / Unknown Venipuncture / Unknown 09/24/2023 10:58 AM TREATING ENGINEER 09/24/2023 10:58 AM TREATING ENGINEER Drew Lerma LAB - CHEMISTRY ORDERABLES Performing Organization Address City/[facility]/ZIP Co de Phone Number [facility] [address] [place] [address] [phone] * (ABNORMAL) ERYTHROCYTE SEDIMENTATION RATE (09/24/2023 10:58 AM TREATING ENGINEER) [facility] Erythrocyte Sedimentation Rate Automated 50(H) 0 - 20 MM/HR 09/24/2023 12:38 PM TREATING ENGINEER [facility] Blood BLOOD SPECIMEN / Unknown Venipuncture / Unknown 09/24/2023 10:58 AM TREATING ENGINEER 09/24/2023 10:58 AM TREATING ENGINEER Drew Lerma DO LAB - HEMATOLOG Y ORDERABLES Performing Organization Address [facility] Co de Phone Number [facility] [address] [place] [address] [phone] * (ABNORMAL) DIFFERENTIAL MANUAL (09/24/2023 10:58 AM TREATING ENGINEER) [facility] Neutrophil % 82(H) 41 - 74 % 09/24/2023 11:46 AM [facility] Lymphocyte % 7(L) 17 - 47 % 09/24/2023 11:46 AM [facility] Monocyte % 11 3 - 11 % 09/24/2023 11:46 AM [facility] Neutrophil Absolute 9.68(H) 1.60 - 7.50 x10E9/L 09/24/2023 11:46 AM [facility] Lymphocyte Absolute 0.83(L) 1.00 - 4.40 x10E9/L 09/24/2023 11:46 AM [facility] Monocyte Absolute 1.30(H) 0.15 - 1.00 x10E9/L 09/24/2023 11:46 AM [facility] RBC Morphology NORMAL 09/24/2023 11:46 AM [facility] Blood BLOOD SPECIMEN / Unknown Venipuncture / Unknown 09/24/2023 10:58 AM TREATING ENGINEER 09/24/2023 10:58 AM [facility] LAB - HEMATOLOGY OR DERABLES Performing Organization Address [facility]/ZIP Co de Phone Number [facility] [address] [place] [address] * (ABNORMAL) BASIC METABOLIC PANEL (CALCIUM TOTAL) (09/24/2023 10:58 AM [facility]) [facility] Signature Glucose 178(H) 70 - 105 mg/dL 09/24/2023 11:13 AM [facility] Sodium 137 136 - 145 mmol/L 09/24/2023 11:13 AM [facility] Potassium 4.2 3.5 - 5.1 mmol/L 09/24/2023 11:13 AM [facility] Chloride 105 98 - 107 mmol/L 09/24/2023 11:13 AM [facility] CO2 23 22 - 29 mmol/L 09/24/2023 11:13 AM [facility] Calcium 9.4 8.4 - 10.4 mg/dL 09/24/2023 11:13 AM [facility] Anion Gap 9 6 - 16 mmol/L 09/24/2023 11:13 AM [facility] BUN 14 7 - 26 mg/dL 09/24/2023 11:13 AM [facility] Creatinine 0.90 0.72 - 1.25 mg/dL 09/24/2023 11:13 AM [facility] eGFR by CKD-EPI >90 >=90 mL/min/1.7 3 m2 09/24/2023 11:13 AM [facility] Blood BLOOD SPECIMEN / Unknown Venipuncture / Unknown 09/24/2023 10:58 AM TREATING ENGINEER 09/24/2023 10:58 AM [facility] Drew Lerma DO LAB - CHEMISTRY ORDERABLES Performing Organization Address [facility]/ZIP Co de Phone Number [facility] [address] [place] [address] [phone] * (ABNORMAL) CBC W AUTO DIFFERENTIAL (09/24/2023 10:58 AM TREATING ENGINEER) WBC 11.8(H) 4.0 - 10.7 x10E9/L 09/24/2023 11:47 AM [facility] RBC Count 4.15(L) 4.30 - 5.80 x10E12/L 09/24/2023 11:47 AM [facility] Hemoglobin 12.6(L) 13.3 - 17.5 g/dL 09/24/2023 11:47 AM [facility] Hematocrit 38.9 38.7 - 51.1 % 09/24/2023 11:47 AM [facility] MCV 93.7 80.0 - 98.0 fL 09/24/2023 11:47 AM [facility] MCH 30.4 26.7 - 33.6 pg 09/24/2023 11:47 AM [facility] MCHC 32.4 31.7 - 36.3 g/dL 09/24/2023 11:47 AM [facility] RDW-CV 13.2 11.3 - 14.8 % 09/24/2023 11:47 AM [facility] Platelet Count 194 150 - 420 x10E9/L 09/24/2023 11:47 AM [facility] MPV 9.1 7.8 - 11.4 fL 09/24/2023 11:47 AM [facility] Blood BLOOD SPECIMEN / Unknown Venipuncture / Unknown 09/24/2023 10:58 AM TREATING ENGINEER 09/24/2023 10:58 AM [facility] LAB - HEMATOLOGY OR DERABLES Performing Organization Address City/State/[facility] Co de Phone Number [facility] [address] [place] [address] documented in this encounter Visit Diagnoses Diagnosis [...] verify patency. $ Given 09/29/2023 6:13 PM TREATING ENGINEER 10 mL 0.9% NaCl injection 1-10 mL 1-10 mL, Intracatheter, PRN, Other, peripheral line flush, Starting on Sun09/24/23 at 1625, Until Sun10/04/23 at 1244, Flush peripheral IV catheter with 1-10 mL of normal saline before and after medications and prn to clear blood from the line or to verify patency. $ Given 09/24/2023 7:38 PM TREATING ENGINEER 10 mL 0.9% NaCl injection 10-40 mL 10-40 mL, Intracatheter, EVERY 8 HOURS, First dose on Sun10/03/23 at 1545, Until Discontinued, Flush each lumen of PICC with 10ml NS IVP every 8 hours (regardless of continuous IV infusion). Flushing may be contraindicated if concentrated drips are infusing. $ Given 10/04/2023 3:51 AM TREATING ENGINEER 10 mL 0.9% NaCl injection 10-40 mL [...] 8 hours. $ Given 10/01/2023 7:50 AM TREATING ENGINEER 3 mL $ Given 09/30/2023 11:23 PM TREATING ENGINEER 3 mL $ Given 09/30/2023 12:06 PM TREATING ENGINEER 3 mL 0.9% NaCl injection 3 mL 3 mL, Intracatheter, EVERY 8 HOURS, First dose on Sun09/24/23 at 1700, Until Discontinued, Flush peripheral IV catheter with 3 mL of normal saline every 8 hours. $ Given 10/03/2023 8:08 PM TREATING ENGINEER 3 mL $ Given 10/03/2023 12:06 PM TREATING ENGINEER 3 mL $ Given 10/01/2023 10:10 PM TREATING ENGINEER 3 mL 0.9% NaCl irrigation solution PRN, Starting on 09/24/23 at 2150, Until 09/24/23 at 2150, Intra-op $ Given 09/24/2023 9:50 PM TREATING ENGINEER 3,000 mL acetaminophen (Tylenol) tablet 650 mg 650 [...] the MAR. $ Given 09/26/2023 8:23 PM TREATING ENGINEER 650 m g ALPRAZolam (Xanax) tablet 0.5 mg 0.5 mg, Oral, 3 TIMES DAILY PRN, Anxiety, Starting on 09/29/23 at 1806, Until Hetal 10/04/23 at 1244 $ Given 10/03/2023 8:19 PM TREATING ENGINEER 0.5 mg $ Given 10/02/2023 9:40 PM TREATING ENGINEER 0.5 mg $ Given 10/02/2023 1:50 AM TREATING ENGINEER 0.5 mg amLODIPine (Norvasc) tablet 10 mg 10 mg, Oral, DAILY, First dose (after last modification) on Sun09/25/23 at 0900, Until Discontinued $ Given 10/04/2023 8:28 AM TREATING ENGINEER 10 mg $ Given 10/03/2023 8:14 AM TREATING ENGINEER 10 mg $ Given 10/02/2023 8:07 AM TREATING ENGINEER 10 mg bisacodyl (Dulcolax) suppository 10 mg 10 mg, Rectal, DAILY PRN, Constipation, Starting on Hetal 22/24 at 1056, Until Sun10/04/23 at 1244 carvedilol (Coreg) tablet 25 mg 25 mg, Oral, 2 TIMES DAILY, First dose on Sun09/24/23 at 2100, Until Discontinued, Take with food $ Given 10/04/2023 8:27 AM TREATING ENGINEER 25 mg $ Given 10/03/2023 8:11 PM TREATING ENGINEER 25 mg $ Given 10/03/2023 8:14 AM TREATING ENGINEER 25 mg ceFAZolin (Ancef) 2 g in 0.9% NaCl IV 50 mL IVPB 2 g, at 100 mL/hr, Intravenous, EVERY 8 HOURS, First dose on Sun09/27/23 at 1045, Until Discontinued, Indication for anti-infective therapy: Documented infection, Site of anti-infective therapy: Bone/Joint $ New Bag/Syringe 10/04/2023 3:55 AM TREATING ENGINEER 2 g 100 mL/hr $ New Bag/Syringe 10/03/2023 8:13 PM TREATING ENGINEER 2 g 100 mL /hr $ New Bag/Syringe 10/03/2023 12:05 PM TREATING ENGINEER 2 g 100 m L/hr cyclobenzaprine (Flexeril) tablet 10 mg 10 mg, Oral, 2 TIMES DAILY, First dose on Sun09/24/23 at 2100, Until Discontinued $ Given 10/04/2023 8:28 AM TREATING ENGINEER 10 m g $ Given 10/03/2023 8:11 PM TREATING ENGINEER 10 mg $ Given 10/03/2023 8:14 AM TREATING ENGINEER 10 mg dextrose 10 % IV bolus [...] Until Discontinued $ Given 10/04/2023 8:28 AM TREATING ENGINEER 100 mg $ Given 10/03/2023 8:11 PM TREATING ENGINEER 100 mg $ Given 10/03/2023 8:14 AM TREATING ENGINEER 100 mg enoxaparin (Lovenox) injection 40 mg 40 mg, Subcutaneous, DAILY, First dose on Sun10/03/23 at 1000, Until Discontinued, (for prefilled syringes) do not expel air bubble from the syringe prior to the injection Remind Patient to not rub injection site. Could cause hematoma. $ Given 10/04/2023 8:27 AM TREATING ENGINEER 40 mg Ab dominal Tissue $ Given 10/03/2023 10:10 AM TREATING ENGINEER 40 mg A bdominal Tissue fentaNYL (PF) [...] other medications. $ Given 10/04/2023 8:28 AM TREATING ENGINEER 325 mg $ Given 10/03/2023 8:14 AM TREATING ENGINEER 325 mg $ Given 10/02/2023 8:07 AM TREATING ENGINEER 325 mg glucagon (Glucagen) injection 1 mg [...] Glucose less than 70 mg/dL, Starting on 09/24/23 at 1623, Until Hetal [...] MAR., PACU $ Given 09/27/2023 4:40 PM TREATING ENGINEER 0.5 mg HYDROmorphone (Dilaudid) injection 0.5 mg [...] MAR., PACU $ Given 10/03/2023 6:38 AM TREATING ENGINEER 0.5 mg $ Given 10/02/2023 5:02 PM TREATING ENGINEER 0.5 mg $ Given 10/02/2023 4:30 PM TREATING ENGINEER 0.5 mg HYDROmorphone (Dilaudid) injection 0.6 mg 0.6 mg, Intravenous, EVERY 3 HOURS PRN, Severe Pain, Starting on Sun09/25/23 at 0958, Until Hetal 10/04/23 at 1244, Patient preference for lesser PRN pain meds may be honored when the patient requests a less strong medication, a lower dose, or a less intrusive route of administration when the lesser drug, dose and route have been ordered for the patient. This patient request must be documented in the MAR. $ Given 10/03/2023 10:14 AM TREATING ENGINEER 0.6 mg $ Given 10/02/2023 6:10 PM TREATING ENGINEER 0.6 mg $ Given 09/30/2023 9:33 PM TREATING ENGINEER 0.6 mg insulin aspart (NovoLOG) pen 0-4 [...] notify physician $ Given 10/02/2023 9:43 PM TREATING ENGINEER 2 Units Abdominal Tissue insulin aspart (NovoLOG) [...] same time. $ Given 10/01/2023 12:12 PM TREATING ENGINEER 2 Units Abdominal Tissue $ Given 09/30/2023 12:04 PM TREATING ENGINEER 2 Units A bd Left Upper Quadrant $ Given 09/27/2023 6:13 PM TREATING ENGINEER 2 Units Ab dominal Tissue insulin regular [...] at 1244 $ Given 09/28/2023 8:57 AM TREATING ENGINEER 30 g naloxone (Narcan) injection 0.04 mg [...] the MAR. $ Given 10/04/2023 8:27 AM TREATING ENGINEER 1 tablet $ Given 10/04/2023 3:50 AM TREATING ENGINEER 1 tablet $ Given 10/03/2023 10:53 PM TREATING ENGINEER 1 tablet pantoprazole EC (Protonix) tablet 40 mg 40 mg, Oral, DAILY, First dose on Sun09/24/23 at 1645, Until Discontinued, Do not crush, chew, or cut in half. $ Given 10/04/2023 8:28 AM TREATING ENGINEER 40 mg $ Given 10/03/2023 8:14 AM TREATING ENGINEER 40 mg $ Given 10/02/2023 8:07 AM TREATING ENGINEER 40 mg pregabalin (Lyrica) capsule 50 mg 50 mg, Oral, 2 TIMES DAILY, First dose on Sun09/24/23 at 2100, Until Discontinued $ Given 10/04/2023 8:28 AM TREATING ENGINEER 50 m g $ Given 10/03/2023 8:11 PM TREATING ENGINEER 50 mg $ Given 10/03/2023 8:14 AM TREATING ENGINEER 50 mg prochlorperazine (Compazine) injection 10 mg [...] Until Discontinued $ Given 10/04/2023 5:08 AM TREATING ENGINEER 40 m g $ Given 10/03/2023 6:38 AM TREATING ENGINEER 40 mg $ Given 10/01/2023 10:37 AM TREATING ENGINEER 40 mg sertraline (Zoloft) tablet 200 mg 200 mg, Oral, DAILY, First dose (after last modification) on Sun09/24/23 at 1830, Until Discontinued, Avoid concurrent administration with grapefruit juice $ Given 10/04/2023 8:27 AM TREATING ENGINEER 200 mg $ Given 10/03/2023 8:14 AM TREATING ENGINEER 200 mg $ Given 10/02/2023 8:07 AM TREATING ENGINEER 200 mg vancomycin (Vancocin) injection PRN, Starting on Sun09/24/23 at 2150, Until Sun09/24/23 at 2150, Intra-op $ Given 09/24/2023 9:50 PM TREATING ENGINEER 1,000 mg Operative Site documented in this encounter Active and Recently Administered Medications Times are shown in TREATING ENGINEER. Scheduled Medication Order 10/02/2023 10/03/2023 10/04/2023 0.9% [...] Bailey Jones RN - Reason: IV Currently Infusing)214 (Not Administered - Provider: Chacho Tian RN [...] Provider: Chacho Tian RN)0450 (Stopped - Provider: Samwel O Owuor, RN)1205 ($ New Bag/Syringe - Provider: Mulu Dickens RN)1235 (Stopped - Provider: Mulu Dickens RN)2012 ($ New Bag/Syringe - Provider: Meenakshi Manzanares RN)204 (Stopped - Provider: Meenakshi Manzanares RN) 0355 [...] hematoma. 1010 ($ Given - Provider: Mulu Dickens RN) 0827 ($ Given - Provider: Mulu Dickens RN) ferrous sulfate tablet 325 mg 325 mg, [...] Lidocaine. 1529 ($ Given - Provider: Angelika Ponce, ANA) naloxone (Narcan) injection 0.04 mg 0.04 mg, [...] not crush, chew, or cut in half. 08 ($ Given - Provider: Bailey Jones RN) 08 ($ Given - Provider: Mulu Dickens RN) 0828 ($ Given - Provider: Mulu Dickens RN) pregabalin (Lyrica) capsule 50 mg 50 mg, Oral, 2 TIMES DAILY, First dose on Sun09/24/23 at 2100, Until Discontinued 08 ($ Given - Provider: Bailey Jones RN)2139 ($ Given - Provider: Chacho Tian RN) [...] NPO) 0638 ($ Given - Provider: Chacho Tian, ANA) 0508 ($ Given - Provider: Meenakshi Manzanares RN) sertraline (Zoloft) tablet 200 mg 200 mg, Oral, DAILY, First dose (after last modification) on Sun09/24/23 at 1830, Until Discontinued, Avoid concurrent administration with grapefruit juice 0807 ($ Given - Provider: Bailey Jones RN) 0814 ($ Given - Provider: Mulu Dickens, ANA) 0827 ($ Given - Provider: Mulu Dickens RN) Continuous Medication Order 10/02/2023 10/03/2023 10/04/2023 lactated ringers infusion () at 75 mL/hr, Intravenous, CONTINUOUS, Starting on Sun10/02/23 at 0930, Until Sun10/02/23 at 1529 0922 ($ New Bag/Syringe - Provider: Bailey Jones RN) lactated ringers infusion (CANCELED) at 125 mL/hr, Intravenous, CONTINUOUS, Starting on Sun10/02/23 at 1700, Until Sun10/04/23 at 1102, PACU 1800 ($ New Bag/Syringe - Provider: Bailey Jones RN) 0632 ($ New Bag/Syringe - Provider: Chacho Tian, ANA) PRN Medication Order 10/02/2023 10/03/2023 10/04/2023 0.9% [...] flush, Starting on Sun10/03/23 at 1508, Until Hetal 10/04/23 at 1244, Flush each lumen of PICC [...] 1244 0150 ($ Given - Provider: Sanjay Kumar RN)2140 ($ Given - Provider: Chacho Tian RN) 2019 ($ Given - Provider: Meenakshi Manzanares, RN) bisacodyl (Dulcolax) suppository 10 mg 10 mg, Rectal, DAILY PRN, Constipation, Starting on Sun09/27/23 at 1056, Until Sun10/04/23 at 1244 dextrose 10 % IV bolus(Linked [...] Glucose less than 70 mg/dL, Starting on 09/24/23 at 1623, Until Hetal [...] 20 MIN PRN, Severe Pain, Starting on e 10/02/23 at 1628, Until [...] 3 HOURS PRN, Severe Pain, Starting on 09/25/23 at 0958, Until Hetal 10/04/23 at 1244, Patient preference for lesser PRN pain meds may be honored when the patient requests a less strong medication, a lower dose, or a less intrusive route of administration when the lesser drug, dose and route have been ordered for the patient. This patient request must be documented in the MAR. 181 ($ Given - Provider: Bailey oJnes RN) 1014 ($ Given - Provider: Mulu Dickens RN) insulin regular human (HumuLIN R; NovoLIN R) 100 UNIT/ML injection 0-6 Units 0-6 Units, Intravenous, PRN, high glucose, Starting on Hetal 09/27/23 at 1214, Until Hetal 10/04/23 at 1244, POC Glucose Regular Insulin Dose [...] Constipation, Starting on Sun09/27/23 at 1056, Until Hetal 10/04/23 at 1244 ondansetron (disintegrating) (Zofran ODT) tablet [...] dose, Starting on Sun10/02/23 at 1628, Until Hetal [...] EVERY 6 HOURS PRN, Nausea/Vomiting, Starting on 09/24/23 at 1626, Until Sun10/04/23 at 1244, If [...] portion documented in this encounter Care Teams Continuous Pickling Line Pickler Helper Relationship Specialty Start Date End Date Faisal Richardson DO [address] [place] [id number] PCP - General Family Medicine 11/27/22 documented as of this encounter
--- OUTSIDE RECORDS SUMMARY | 2024-07-28 00:58 | XMS_ITS | Encounter Summary ---
Author Organization [facility] Address [address] [place] [address] Care Team Providers Care Dry Room Attendant Name Role Phone Faisal Richardson DO Primary Care Provider [phone] Reason for Visit * Reason Comments Surgical Follow-up Encounter Details Date Type Department Care Team (Late st Contact Info) Description 09/11/2023 11:45 AM RING STRIKER Office Visit [facility] - Orthopedic Surgery [address] [place] [phone] Torrey Lafleur MD [address] [address] S/P revision of total hip [...] and heating? Not hard at all 12/14/2022 [facility] [place] [facility] - Occupational Stress [...] place to sleep or slept in a halfway (including now)? No 12/14/2022 Sex and Gender [...] Progress Notes * Torrey Lafleur MD - 09/11/2023 11:45 AM CST Patient returns for follow-up 9 months after revision right total hip arthroplasty. Overall patientis doing well but still complains of some groin and thigh pain when he first gets up. Denies feverschills or wound problems. No mechanical symptoms or dislocations. Continuing home therapy exercises. He is not taking any pain medication just Tylenol. He otherwise feels good overall other than thispersistent groin pain/thigh pain. We ordered an injection into his iliopsoas tendon at the last visit 2 months ago and this didn't help. Pain is not worse or better than last visit. Pain improves as he walks. Current Outpatient Medications on File Prior to Visit Medication Sig Dispense Refill ??? amLODIPine (Norvasc) 5 MG tablet Take 1 (one) tablet by mouth once daily ??? aspirin (Aspirin 81) 81 MG chew tablet Take 1 (one) tablet by mouth 2 times daily (Patient not taking: Reported on 08/29/2023) 70 tablet 0 ??? Bacillus Coagulans-Inulin (Probiotic) 1-250 [...] MG/0.5ML injection ??? ergocalciferol (Drisdol) 1.25 MG (73033 UT) capsule Take 1 (one) capsule by [...] to visit. Past Medical History: Diagnosis Date ??? Aortic stenosis mod-sev on 2022 echo ??? CAD (coronary artery disease) ??? High blood pressure ??? LVH (left ventricular hypertrophy) ??? Mixed hyperlipidemia ??? Restless leg syndrome ??? Sleep apnea uses cpap ??? Stroke ([facility] 2021 balance residual ??? Type 2 diabetes mellitus without complications ([facility]) Past Surgical History: Procedure Laterality [...] BMI is 37 Facial expressions are appropriate Patient is cooperative with examination Examination of the right hip reveals flexion to 90, abduction 30, adduction 20, internal rotation of 20, external rotation of 20 with no pain. Distally patient can dorsiflex and plantarflex both ankles and toes without difficulty. Limb lengths are clinically equal. Wound is healed without signs of infection. 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 We discussed his inflammatory markers were normal at his last visit. We will continue physical therapy exercises and we discussed F/U in December at the one year anniversary for repeat xrays. We discussed antibiotic prophylaxis before invasive procedures. Follow-up in 12 months. We discussed physical therapy. Patient understood the treatment plan and all questions were answered. STRIKER documented in this encounter Plan of Treatment Upcoming Encounters Date Type Department Care Team (Late st Contact Info) Description 01/20/2025 10:00 AM CDT Office Visit [facility] - Orth[facility] [place] [phone] Torrey Lafleur MD [address] [place] [phone] Scheduled Orders Name Type Priority Associated Diagnoses Orde r Schedule ERYTHROCYTE SEDIMENTATION RATE Lab Routine S/P revision of total hip 1 Occurrences starting 09/11/2023 until 01/01/2025 C-REACTIVE PROTEIN Lab Routine S/P revision of total hip 1 Occurrences starting 09/11/2023 until 01/01/2025 documented as of this encounter Visit Diagnoses Diagnosis S/P revision of total hip- Primary Hip joint replacement by other means documented in this encounter Care Teams Dry Room Attendant Relationship Specialty Start Date End Date Faisal Richardson DO [address] [place], [place] [id number] PCP - General Family Medicine 11/27/22 documented as of this encounter
--- OUTSIDE RECORDS SUMMARY | 2024-07-28 00:58 | XMS_ITS | Encounter Summary ---
Author Organization [facility] Address [address] [place] [address] Care Team Providers Care [employer] Mixer Operator Name Role Phone Faisal Richardson DO Primary Care Provider [phone] Reason for Visit * Reason Comments Injury Leg Right leg pain. Hx o f hip and knee surgery * Auth/Cert (Routine) Specialty Diagnoses / Procedures Referred By Contac t Referred To Contact Referral ID Status Reason Start Date Expiration Date Visits Re quested Visits Authorized [id number] 1 1 Encounter Details Date Type Department Care Team (Late st Contact Info) Description 09/27/2023 10:16 AM BLUNGER MACHINE OPERATOR - 09/27/2023 12:02 PM [facility] Surgery [facility] PERIOPERATIVE [address] [place] [address] Torrey Lafleur MD [address] [address] REPEAT IRRIGATION AND DEBRIDEMENT RIGHT HIP, REMOVAL OF ANTIBIOTIC BEADS x20, PLACEMENT OF ANTIBIOTIC BEADS x20, WOUND VAC EXCHANGE RIGHT HIP Surgery Details Date/Time Status Location OR Service Patient Class Case Class Case Type Trauma Case? 09/27/2023 10:16 AM Posted [facility] MAIN OR OR 03 Orthopedics Inpatient Work Ins >24 Hrs to 5 Days Panel 1 Procedure LRB Anes Op Region Wound Class Comments REPEAT IRRIGATION AND DEBRID EMENT RIGHT HIP, REMOVAL OF ANTIBIOTIC BEADS x20, PLACEMENT OF ANTIBIOTIC BEADS x20, WOUND VAC EXCHANGE RIGHT HIP Right General Hip Clean Contaminated Surgeon Surgeon Role Service Panel Torrey Lafleur MD Primary Orthopedics 1 Special Needs NEEDS REGULAR O.R. TABLE, WOUND VAC SUPPLIES KEPT IN O.R. SUPPLY ROOM, WOUND VAC MACHINE NEEDS TO BE SENT FROM THE PATIENT'S ROOM TO SURGERY--09/25 KW documented in this encounter Social History [...] and heating? Not hard at all 12/14/2022 [place] [employer] [facility] - Occupational Stress [...] place to sleep or slept in a fdc (including now)? No 12/14/2022 Sex and Gender Information Value Date Recorded Sex Assigned at Not on file Gender Identity Not on file Sexual Orientation Not on file documented as of this encounter Last Filed Vital Signs Vital Sign Reading Time Taken Comments Blood Pressure 142/67 09/27/2023 7:44 AM BLUNGER MACHINE OPERATOR Pulse 83 09/27/2023 7:44 AM BLUNGER MACHINE OPERATOR Temperature 37.7 ??C (99.9 ??F) 09/27/2023 7:44 AM CS T Respiratory Rate 18 09/27/2023 7:44 AM BLUNGER MACHINE OPERATOR Oxygen Saturation 92% 09/27/2023 7:44 AM BLUNGER MACHINE OPERATOR Inhaled Oxygen Concentration - - Weight 124.7 kg (275 lb) 09/24/2023 6:13 PM BLUNGER MACHINE OPERATOR Height 182.9 cm (6') 09/24/2023 6:13 PM BLUNGER MACHINE OPERATOR Body Mass Index 37.3 09/24/2023 6:13 PM BLUNGER MACHINE OPERATOR documented in this encounter Functional Status Functional [...] ??? Sleep apnea uses cpap ??? Stroke ([facility]) 2021 balance residual ??? Type 2 diabetes mellitus without complications ([facility]) Discharge Diagnoses Right prosthetic hip, hardware infection [...] mouth 2 times daily ergocalciferol 1.25 MG (66623 UT) capsule Commonly known as: Drisdol Take [...] capsule by mouth 2 times daily Blaire Gurley Probiotic 1-250 BILLION-MG Caps rosuvastatin 20 MG [...] diagnosis is: Prosthetic hip infection, initial encounter ([facility]) [[id number]] Follow up with Primary Care Provider (PCP) [...] 38 minutes with coordination of care with CM/JOE, consultants, and nurse, education,medication reconciliation, discharge summary, and counseling patient Praveen Kaufman MD Date of Service: 10/04/23 GER MACHINE OPERATOR documented in this encounter Discharge Instructions * Discharge Instructions* Praveen Kaufman MD - 10/04/2023 11:22 AM BLUNGER MACHINE OPERATOR Hip Precautions as follows: Posterior hip precautions- [...] tub soaks. No scrubbing around incision. Call [phone] to schedule the first follow-up appointment with Dr. Lafleur in 3 week(s) or for any questions GER MACHINE OPERATOR documented in this encounter Medications at Time [...] MG/0.5ML injection 10/17/2021 ergocalciferol (Drisdol) 1.25 MG (03601 UT) capsule Take 1 (one) capsule by mouth 05/02/2022 ferrous sulfate 325 (65 FE) MG tablet Take 1 (one) tablet by mouth once daily metFORMIN (Glucophage) 1000 MG tablet Take 1 (one) tablet by mouth 2 times daily 03/05/2022 Multiple Vitamins-Minerals (One-A-Day Mens Health Formula) TABS 08/06/2021 oxyCODONE-acetaminophe n (Percocet) 5-325 MG tabletIndications:Infe ction of prosthetic joint, initial encounter ([facility]) Take 1 (one) tablet by [...] this encounter Progress Notes * Meenakshi Manzanares V., RN - 10/03/2023 10:51 PM CST Problem: [...] Goal: Hip precautions are followed Outcome: Progressing GER MACHINE OPERATOR * Chauncey Hutchinson - 10/03/2023 3:40 PM CST Images from the original note were not included. Patient provided list of in-network home health care. Home Health Referrals have been initiated based on patient's choice: Continued Care and Services - Admitted Since 09/24/2023 Home Medical Care Coordination complete. Service Provider Request Status Selected Services Address Phone Fax Patient [facility] Selected Home Health Services [phone] [phone] -- GER MACHINE OPERATOR * Praveen Kaufman MD - 10/03/2023 3:10 [...] Evaluated by ID IV Ancef Pain control PICC line No outpt from wound vac - discussed with RN and ortho team aware per RN 1 month DVT ppx Hypertension Continue amlodipine and coreg CVA history: Continue statin Holding aspirin, Plavix ?? Diabetes mellitus Sliding scale insulin Diabetic diet ?? Mood disorder: Continue Wellbutrin, Zoloft ?? Hypertension: Continue Norvasc, Coreg ?? GERD: Protonix Psoriasis Follows with Dermatology at [facility], resolved DVT ppx -Lovenox Disposition: Pending clinical course . Praveen Kaufman MD Date of Service: 10/03/23 Patient was seen by me on 10/03 at around 1045 GER MACHINE OPERATOR * Mellissa Holland, PT - 10/03/2023 3:08 [...] a decline in function. Mellissa PT [phone] GER MACHINE OPERATOR * Deena Kline, ANA - 10/03/2023 2:48 PM CST Care Coordination Progress Note Anticipated level of care at discharge: Home Health - IV and Home Health Care: Anticipated level of care provider: [facility]: Anticipated Discharge Date: 10/04/23: Discharge Plan: Patient pending PICC line placement, initially opened with [facility] and [facility] new home health care order submitted to [facility]. Patient will discharge with a Prevena. Orientation Level: Oriented X4: Family Support (Name and Phone): Extended Emergency Contact Information Primary Emergency Contact: Marguerite Rutledge Address: [address] [place] [address] Relation: Spouse Transportation at Discharge: : READMISSION RISK SCORE is 12 at 2:48 PM 10/03/2023.: Name: Deena Kline RN, BSN, MSN,CM /[phone] GER MACHINE OPERATOR * Sigifredo Kruse OT - 10/03/2023 2:15 [...] time. Will D/C OT. Sigifredo OT [phone] GER MACHINE OPERATOR * Kenna Ocampo MD - 10/03/2023 8:52 [...] results for input(s): CDIFFTOXINAB in the last 78353 hours. Recent Labs Component Name 09/24/23 1058 SEDRATE 50* Recent Labs Component Name 09/24/23 1058 04/04/23 0950 CRP 5.64* 0.33 No results for input(s): CK in the last 75170 hours. . Recent Labs Component Name 09/26/23 [...] infection -06/2022: s/p hip arthroplasty for arthritis ([place], [place]) -08/30/22: s/p hardware removal due to infection, IV abx x 6wks ([place], [place]) -12/08/22: s/p revision arthroplasty, fixation of [...] CMP, UA, sed rate. Fax results to [phone] Discussed with IV team Please be advised that part of this text was done using voice recognition software. Errors may havebeen missed upon review. Kenna Ocampo MD GER MACHINE OPERATOR * Jose Villa MD - 10/03/2023 8:18 [...] soaks. No scrubbing around incision. ?? Call [phone] to schedule the first follow-up appointment with Dr. Lafleur in 3 week(s) or for any questions GER MACHINE OPERATOR * Chacho Tian RN - 10/03/2023 4:50 AM CST Problem: Pain/Discomfort Goal: Patient exhibits reduced pain/discomfort as evidenced by pain scores 10/03/2023449 by Chacho Tian RN Outcome: Progressing 10/03/2023448 by Chacho Tian RN Outcome: Progressing Goal: Patient uses pharmacological and non-pharmacological pain management strategies. 10/03/2023449 by Chacho Tian RN Outcome: Progressing 10/03/2023448 by Chacho Tian RN Outcome: Progressing Goal: Patient verbalizes acceptable level of pain relief and ability to engage in desired activity. 10/03/2023 045 by Chacho Tian RN Outcome: Progressing 10/03/2023 [...] Goal: Hip precautions are followed Outcome: Progressing GER MACHINE OPERATOR * Jose Villa MD - 10/02/2023 4:18 [...] 7. Antibiotics per ID/primary 8. Dispo: floor GER MACHINE OPERATOR * Deena Kline RN - 10/02/2023 2:00 PM CST Care Coordination Progress Note Anticipated level of care at discharge: Home Health - IV and Home Health Care: Anticipated level of care provider: [facility]: Anticipated Discharge Date: 10/04/23: Discharge Plan: Patient will need IV antibiotic for 6 weeks with a end date of November 13, 2023 from last I&D 10.02.23. Patient will discharge home with [facility] and [facility]. CM will continue to follow POC and provide additional assistance as needed. Orientation Level: Oriented X4: Family Support (Name and Phone): Extended Emergency Contact Information Primary Emergency Contact: Marguerite Rutledge Address: [address] [place] [phone] Relation: Spouse Transportation at Discharge: : READMISSION RISK SCORE is 12 at 2:00 PM 10/02/2023.: Name: Deena Kline RN, BSN, MSN, CM /[phone] GER MACHINE OPERATOR * Bailey Jones RN - 10/02/2023 11:31 [...] using AE and maintaining PHP Outcome: Progressing GER MACHINE OPERATOR * Kenna Ocampo MD - 10/02/2023 8:52 [...] results for input(s): CDIFFTOXINAB in the last 20379 hours. Recent Labs Component Name 09/24/23 1058 SEDRATE 50* Recent Labs Component Name 09/24/23 1058 04/04/23 0950 CRP 5.64* 0.33 No results for input(s): CK in the last 08517 hours. . Recent Labs Component Name 09/26/23 [...] infection -06/2022: s/p hip arthroplasty for arthritis ([place], [place]) -08/30/22: s/p hardware removal due to infection, IV abx x 6wks ([place], [place]) -12/08/22: s/p revision arthroplasty, fixation of [...] CMP, UA, sed rate. Fax results to [phone] Please be advised that part of this text was done using voice recognition software. Errors may havebeen missed upon review. Kenna Ocampo MD GER MACHINE OPERATOR * Praveen Kaufman MD - 10/02/2023 8:10 [...] GERD: Protonix Psoriasis Follows with Dermatology at [facility], resolved DVT ppx -Lovenox (HOLD FOR OR ) Disposition: Pending clinical course . Praveen Kaufman MD Date of Service: 10/02/23 Patient was seen by me on 10/02 at around 1040 GER MACHINE OPERATOR * Torrey Lafleur MD - 10/02/2023 7:41 [...] AND DEBRIDEMENT RIGHT HIP, REMOVAL OF ANTIBIOTIC [id number], PLACEMENT OF ANTIBIOTIC BEADS x20, WOUND VAC [...] MG/0.5ML injection ??? ergocalciferol (Drisdol) 1.25 MG (24146 UT) capsule Take 1 (one) capsule by [...] ??? Sleep apnea uses cpap ??? Stroke ([facility] 2021 balance residual ??? Type 2 diabetes mellitus without complications ([facility]) Past Surgical History: Procedure Laterality [...] note for further details. Torrey Lafleur MD GER MACHINE OPERATOR * Sanjay Kumar RN - 10/02/2023 6:30 AM CST Problem: Pain/Discomfort Goal: Patient exhibits reduced pain/discomfort as evidenced by pain scores Outcome: Progressing Problem: Fall Risk Goal: Fall risk and fall related injury risk are minimized (interventions related to the fall risk can be found in the flowsheet documentation) Outcome: Progressing GER MACHINE OPERATOR * Bailey Jones RN - 10/01/2023 5:51 [...] step with SBA and LRD Outcome: Progressing GER MACHINE OPERATOR * Yasemin De RD/SLICK - 10/01/2023 1:37 [...] Av.3 % Min: 50 % Max: 100 %.Pt reports normally drinking Premier Protein at home. Will send Ensure HP BID in vanilla flavor forpatient. Ensure High Protein for Muscle Health provides 160 calories ,16 grams protein and 19 gramsof carb per 8 oz serving. Education provided on increased calorie/protein needs to optimize healingof infection and post surgery. Receiving Protonix. Last [...] results for input(s): PREALBUMIN in the last 52104 hours. Patient Vitals for the past 30 [...] Combs RD/SLICK 10/01/2023 1:40 PM Ascom [id number] GER MACHINE OPERATOR * Praveen Kaufman MD - 10/01/2023 1:16 [...] Psoriasis Follows with Dermatology at [facility] Constipation, resolved DVT ppx -Lovenox (HOLD FOR OR TOMORROW) Disposition: Pending clinical course . OR Sunday Praveen Kaufman MD Date of Service: 10/01/23 Patient was seen by me on 10/01 at around 1045 GER MACHINE OPERATOR * Deena Kline RN - 10/01/2023 10:30 AM CST Care Coordination Progress Note Anticipated level of care at discharge: Home Health - IV and Home Health Care: Anticipated level of care provider: [facility]: Anticipated Discharge Date: [...] Information Primary Emergency Contact: Marguerite Rutledge Address: [address] [place] [phone] Relation: Spouse Transportation at Discharge: : READMISSION RISK SCORE is 12 at 10:30 AM 10/01/2023.: Name: Deena Kline RN, BSN, MSN, CM /[phone] GER MACHINE OPERATOR * Kenna Ocampo MD - 10/01/2023 9:47 [...] 09/30/23 0349 12/16/22 0545 12/15/22 0644 12/14/22 193 ALBUMIN 2.3* 3.6 3.5 3.3* ALKPHOS 76 66 - 63 ALT 28 15 - 18 AST 31 20 - 22 TBIL 0.5 0.9 - 1.2 DBIL 0.171 - - - TPROT 5.8* 6.6 - 6.2* No results for input(s): CDIFFTOXINAB in the last 00319 hours. Recent Labs Component Name 09/24/23 1058 SEDRATE 50* Recent Labs Component Name 09/24/23 1058 04/04/23 0950 CRP 5.64* 0.33 No results for input(s): CK in the last 16666 hours. . Recent Labs Component Name 09/26/23 [...] infection -06/2022: s/p hip arthroplasty for arthritis ([place], [place]) -08/30/22: s/p hardware removal due to infection, IV abx x 6wks ([place], [place]) -12/08/22: s/p revision arthroplasty, fixation of [...] CMP, UA, sed rate. Fax results to [phone] Please be advised that part of this text was done using voice recognition software. Errors may havebeen missed upon review. Kenna Ocampo MD GER MACHINE OPERATOR * Jose Villa MD - 10/01/2023 9:16 [...] AND DEBRIDEMENT RIGHT HIP, REMOVAL OF ANTIBIOTIC [id number], PLACEMENT OF ANTIBIOTIC BEADS x20, WOUND VAC [...] questions Jose Villa MD 10/01/2023 9:17 AM GER MACHINE OPERATOR * Praveen Kaufman MD - 09/30/2023 10:08 [...] Psoriasis Follows with Dermatology at [facility] Constipation, resolved DVT ppx -Lovenox Disposition: Pending clinical course . OR Sunday Praveen Kaufman MD Date of Service: 09/30/23 Patient was seen by me on 09/30 at around 0845 GER MACHINE OPERATOR * Ashish Barnett MD - 09/30/2023 8:34 [...] of right hip arthroplasty in 06/2022 at [facility] in [place], [place]. Due to infectionhe is s/p removal or arthroplasty in 08/30/22 at [facility]; received IV antibiotics x 6 weeks via [...] results for input(s): CDIFFTOXINAB in the last 12105 hours. Recent Labs Component Name 09/24/23 1058 SEDRATE 50* Recent Labs Component Name 09/24/23 1058 04/04/23 0950 CRP 5.64* 0.33 No results for input(s): CK in the last 23146 hours. . Recent Labs Component Name 09/26/23 [...] infection -06/2022: s/p hip arthroplasty for arthritis ([place], [place]) -08/30/22: s/p hardware removal due to infection, IV abx x 6wks ([place], [place]) -12/08/22: s/p revision arthroplasty, fixation of [...] with patient, care team Ashish Barnett MD GER MACHINE OPERATOR * Ashish Barnett MD - 09/29/2023 5:20 [...] of right hip arthroplasty in 06/2022 at [facility] in [place], [place]. Due to infectionhe is s/p removal or arthroplasty in 08/30/22 at [facility]; received IV antibiotics x 6 weeks via [...] results for input(s): CDIFFTOXINAB in the last 86795 hours. Recent Labs Component Name 09/24/23 1058 SEDRATE 50* Recent Labs Component Name 09/24/23 1058 04/04/23 0950 CRP 5.64* 0.33 No results for input(s): CK in the last 82076 hours. . Recent Labs Component Name 09/26/23 0455 VANCOPEAK 18.3* Recent Labs Component Name 09/25/23 0141 12/14/223 11/27/22 0950 HGBA1C 6.4* 6.0* 5.6 Recent [...] infection -06/2022: s/p hip arthroplasty for arthritis ([place], [place]) -08/30/22: s/p hardware removal due to infection, IV abx x 6wks ([place], [place]) -12/08/22: s/p revision arthroplasty, fixation of proximal femoral periprosthetic fracture, Dr. Lalfeur -chronic/ongoing rt hip/thigh/groin pain since -no response [...] with patient, care team Ashish Barnett MD GER MACHINE OPERATOR * Praveen Kaufman MD - 09/29/2023 12:59 [...] GERD: Protonix Psoriasis Follows with Dermatology at [facility], resolved Discussed with at bedside DVT ppx -Lovenox Disposition: Pending clinical course Praveen Kaufman MD Date of Service: 09/29/23 Patient was seen by me on 09/29 at around 1015 GER MACHINE OPERATOR * Deena Kline RN - 09/28/2023 3:11 PM CST Care Coordination Progress Note Anticipated level of care at discharge: Home Health - IV and Home Health Care: Anticipated level of care provider: [facility]: Anticipated Discharge Date: [...] Information Primary Emergency Contact: Marguerite Rutledge Address: [address] [place] [phone] Relation: Spouse Transportation at Discharge: : READMISSION RISK SCORE is 10 at 3:11 PM 09/28/2023.: Name: Deena Kline RN, BSN, MSN, CM /[phone] GER MACHINE OPERATOR * Millie Costello, PT - 09/28/2023 2:45 [...] Active Participation Mobility: Supine to Sit: Modified [place] Sit to Supine: Modified [place] Sit to Stand: Supervision Stand to Sit: [...] place and intact pre and post visit. GER MACHINE OPERATOR * Ashish Barnett MD - 09/28/2023 2:10 [...] of right hip arthroplasty in 06/2022 at [facility] in [place], [place]. Due to infectionhe is s/p removal or arthroplasty in 08/30/22 at [facility]; received IV antibiotics x 6 weeks via [...] Oral, QDAY ?? [] *Hold/Avoid Medication, Other, 0800 and 1999 Data Recent Labs Component Name [...] results for input(s): CDIFFTOXINAB in the last 32578 hours. Recent Labs Component Name 09/24/23 1058 SEDRATE 50* Recent Labs Component Name 09/24/23 1058 04/04/23 0950 CRP 5.64* 0.33 No results for input(s): CK in the last 33073 hours. . Recent Labs Component Name 09/26/23 [...] infection -06/2022: s/p hip arthroplasty for arthritis ([place], [place]) -08/30/22: s/p hardware removal due to infection, IV abx x 6wks ([place], [place]) -12/08/22: s/p revision arthroplasty, fixation of [...] with patient, care team Ashish Barnett MD GER MACHINE OPERATOR * Praveen Kaufman MD - 09/28/2023 12:33 PM CST Hospitalist Progress Note Admit Date: 09/24/2023 11:47 AM Hospital Day: 4 Clinical Course This is a 58-year-old male patient past medical history of aortic stenosis, CAD, right hip replacement Rt hip replacement w/ wound vac (2023), hyperlipidemia, CVA, diabetes who presented to the [...] Psoriasis Follows with Dermatology at [facility] Constipation miralax Lactulose x 1 Dulcolax suppository if no BM by 2 pm Discussed with at bedside DVT ppx -Lovenox Disposition: Pending clinical course Praveen Kaufman MD Date of Service: 09/28/23 Patient was seen by me on 09/28 at around 1020 GER MACHINE OPERATOR * Lane Nathan, OT - 09/28/2023 11:02 [...] 1. Infection of prosthetic joint, initial encounter ([facility]) 2. Pain of right hip [...] Mobility: Bed Mobility: Supine to Sit: Modified [place] (HOB elevated) Sit to Supine: Modified [place] (HOB elevated) Transfers: Sit to Stand: Supervision Stand to Sit: Supervision Mobility: Distance Ambulated: (Functional mobility in room) Ambulation: Assistive Device: Gait Belt;Walker-2 Wheeled Ambulation: Level of Assistance: Supervision ADL Tasks: Based on observation and clinical judgement Feeding: Complete [place] Oral Facial Hygiene: Supervision Bathing: Supervision Upper Body Dressing: Set-up Lower Body Dressing: Supervision Toileting: Supervision RUE Assessment: AROM - Right Upper Extremity: Within Functional Limits Strength - Right Upper Extremity: Within Functional Limits Lead Etl Developer Strength:Lead Etl Developer Strength - Right Upper Extremity: WFL LUE Assessment: AROM - Left Upper Extremity: Within Functional Limits Strength - Left Upper Extremity: Within Functional Limits Lead Etl Developer Strength:Lead Etl Developer Strength - Left Upper Extremity: WFL: Activity [...] the discharge summary. MEL Sherman, OTR/L [phone] GER MACHINE OPERATOR * Felipe Miller MD - 09/28/2023 4:36 AM CST Orthopedic Surgery Progress Note Name: Taylor Ruteldge 58 year old, male : 1965 Admit Date: 09/24/2023 11:47 AM September 28, 2023 Subjective Patient seen this morning on rounds. In no acute distress. Data BP 147/75 (BP Cuff Size: A) Pulse 75 Temp 97.8 ??F (36.6 ??C) (Oral) Resp 18 Ht 1.829 m (6') Wt 124.7 kg (275 lb) SpO2 99% Temp (24hrs), Av.3 ??F (36.8 ??C), Min:97.1 ??F (36.2 ??C),Max:99.9 ??F (37.7 ??C) Labs Recent Labs Component [...] AND DEBRIDEMENT RIGHT HIP, REMOVAL OF ANTIBIOTIC [id number], PLACEMENT OF ANTIBIOTIC BEADS x20, WOUND VAC [...] Miller MD 09/28/2023 4:36 AM Pager number: [phone] Orthopedic Surgery Resident GER MACHINE OPERATOR * Brigido Lundberg MD - 09/27/2023 12:16 [...] patient. Brigido Lundberg MD 09/27/2023 12:17 PM GER MACHINE OPERATOR * Lane Nathan OT - 09/27/2023 12:10 PM CST Attempted to see pt for OT follow-up; however pt MILAD for repeat I&D of R hip. Will continue to follow. Appreciate updated WB/activity orders post op. BRANDIE Sherman [phone] 09/27/2023 GER MACHINE OPERATOR * Praveen Kaufman MD - 09/27/2023 10:56 [...] Psoriasis Follows with Dermatology at [facility] Discussed with daughter and at bedside DVT ppx -Lovenox (hold for OR today) Disposition: Pending clinical course Praveen Kaufman MD Date of Service: 09/27/23 Patient was seen by me on 09/27 at around 0930 GER MACHINE OPERATOR * Millie Costello, PT - 09/27/2023 10:48 [...] WB status and activity orders post op. GER MACHINE OPERATOR * Ashish Barnett MD - 09/27/2023 10:00 [...] of right hip arthroplasty in 06/2022 at [facility] in [place]. Due to infectionhe is s/p removal or arthroplasty in 08/30/22 at [facility]; received IV antibiotics x 6 weeks via [...] results for input(s): CDIFFTOXINAB in the last 52597 hours. Recent Labs Component Name 09/24/23 1058 SEDRATE 50* Recent Labs Component Name 09/24/23 1058 04/04/23 0950 CRP 5.64* 0.33 No results for input(s): CK in the last 64058 hours. . Recent Labs Component Name 09/26/23 [...] infection -06/2022: s/p hip arthroplasty for arthritis ([place], [place]) -08/30/22: s/p hardware removal due to infection, IV abx x 6wks ([place], [place]) -12/08/22: s/p revision arthroplasty, fixation of [...] with patient, care team Ashish Barnett MD GER MACHINE OPERATOR * Brigido Lundberg MD - 09/27/2023 6:49 [...] exchange 9. Please page ortho with questions GER MACHINE OPERATOR Associated attestation - Torrey Lafleur MD - 09/27/2023 10:35 AM BLUNGER MACHINE OPERATOR Patient seen and examined, agree with above [...] 1.5 MG/0.5ML injection ergocalciferol (Drisdol) 1.25 MG (56616 UT) capsule Take 1 (one) capsule by [...] leg syndrome Sleep apnea uses cpap Stroke ([facility]) 2021 balance residual Type 2 diabetes mellitus without complications ([facility]) Past Surgical History: Procedure Laterality Date Appendectomy [...] dictation was performed with the use of HungerTimeon voice recognition and errors with transcriptionmay occur. [...] AE and maintaining PHP Outcome: Not Progressing GER MACHINE OPERATOR * [facility] - 09/26/2023 3:09 PM CST Images from [...] 09/25/23 0141 Estimated creatinine clearance: 123.2 mL/min GER MACHINE OPERATOR * Ashish Barnett MD - 09/26/2023 2:29 PM CST Infectious Diseases Consult Note Patient's Primary Care Physician: Faisal Richardson DO Reason for Consultation: Rt prosthetic hip joint infection Referring Physcian: Bryant Jones MD Name: Tayolr Rutledge Age: [age] year old 1 Chief Complaint/History of Present Illness HPI: Taylor Rutledge is a 58 year old White/Caucasianmale admitted 09/24 for evaluation of right hip pain. Hx of right hip arthroplasty in 06/2022 at [facility] in [place], [place]. Due to infectionhe is s/p removal or arthroplasty in 08/30/22 at [facility]; received IV antibiotics x 6 weeks via [...] results for input(s): CDIFFTOXINAB in the last 37051 hours. Recent Labs Component Name 09/24/23 1058 SEDRATE 50* Recent Labs Component Name 09/24/23 1058 04/04/23 0950 CRP 5.64* 0.33 No results for input(s): CK in the last 91964 hours. . Recent Labs Component Name 09/26/23 [...] infection -06/2022: s/p hip arthroplasty for arthritis ([place], [place]) -08/30/22: s/p hardware removal due to infection, IV abx x 6wks ([place], [place]) -12/08/22: s/p revision arthroplasty, fixation of [...] bcx neg x 48h / OPAT via [facility] care as he [place] very far away -anticipate likely chronic suppression with po antibiotic upon completion of 6 weeks IV (given retention of some hardware) -pending finalized OR cultures / work up as above Discussed with patient, care team Ashish Barnett MD GER MACHINE OPERATOR * Angelika Tamayo, PT - 09/26/2023 11:59 [...] vac Bed Mobility: Supine to Sit: Modified [place] Transfers: Sit to Stand: Stand By Assist [...] this note serves as the discharge summary. Paola PT [phone] GER MACHINE OPERATOR * Tyler Fischer RN - 09/26/2023 11:29 [...] using AE and maintaining PHP Outcome: Progressing GER MACHINE OPERATOR * Praveen Kaufman MD - 09/26/2023 11:17 [...] Psoriasis Follows with Dermatology at [facility] DVT ppx -Lovenox (hold after today dose) Disposition: Pending clinical course Praveen Kaufman MD Date of Service: 09/26/23 Patient was seen by me on 09/26 at around 1000 GER MACHINE OPERATOR * Brigido Lundberg MD - 09/26/2023 8:04 [...] exchange 8. Please page ortho with questions GER MACHINE OPERATOR * Shoshana Howard, RN - 09/26/2023 4:26 AM CST Problem: Pain/Discomfort Goal: Patient uses pharmacological and non-pharmacological pain management strategies. Outcome: Progressing Problem: Fall Risk Goal: Fall risk and fall related injury risk are minimized (interventions related to the fall risk can be found in the flowsheet documentation) Outcome: Progressing GER MACHINE OPERATOR * Lane Nathan, OT - 09/25/2023 2:45 [...] benefit from ongoing therapy with home health [facility] Daily Activity Raw Score:: 17 ADMIT: 1. Infection of prosthetic joint, initial encounter ([facility]) 2. Pain of right hip [...] - Right Upper Extremity: Within Functional Limits Lead Etl Developer Strength: Lead Etl Developer Strength - Right Upper Extremity: WFL LUE Assessment: AROM - Left Upper Extremity: Within Functional Limits Strength - Left Upper Extremity: Within Functional Limits Lead Etl Developer Strength: Lead Etl Developer Strength - Left Upper Extremity: WFL: Basic ADL's: Based on observation and clinical judgement Feeding: Complete [place] Oral Facial Hygiene: Stand By Assist (for [...] the discharge summary. MEL Sherman, OTR/L [phone] GER MACHINE OPERATOR * Angelika Tamayo, PT - 09/25/2023 2:10 [...] as the discharge summary. ABHISHEK Guevara [phone] GER MACHINE OPERATOR * Praveen Kaufman MD - 09/25/2023 10:10 [...] Psoriasis Follows with Dermatology at [facility] DVT ppx -Lovenox Disposition: Pending clinical course Praveen Kaufman MD Date of Service: 09/25/23 Patient was seen by me on 09/25 at around 0950 GER MACHINE OPERATOR * Brigido Lundberg MD - 09/25/2023 8:26 [...] exchange 8. Please page ortho with questions GER MACHINE OPERATOR * Deena Kline RN - 09/25/2023 7:38 AM CST Care Coordination Initial Assessment Anticipated Discharge Date: 10/02/23 Transportation at Discharge: Anticipated level of care at discharge: Home Health - IV and Home Health Care Anticipated level of care provider: [facility] Prior to admission level of [...] and wound closure vs wound vac exchange 2.22.24, blood cx, labs, arthrocentesis cultures, anticipate prolonged IV antibiotic course x 6 weeks/ PICC line eventually once blood cx negativex 48 hours. CM has contacted [facility] for potential services and referral has been sent to [facility]. CM will continue to follow POC and provide additional assistance as needed. Lives with: Spouse Physical Limitations: None Requires Assistance With: None Preferred Pharmacy: [facility] [address] [phone] [address] [phone] READMISSION RISK SCORE is 14 at 6:43 AM 09/26/2023. 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 No Patient/Family provided with list of resources? No Preferred Provider / High Quality Network List given?: No Reason for provider choice: Insurance, Pt. choice - Pt. choice Equipment at Home: Chair-Shower;Hand Held Shower;Toilet Seat - Raised;Walker-2 Wheeled;Walker-Standard Temper Mill Operator Referral: No Will continue to follow. For any questions or needs please contact: Dispensing Audiologist Name/Phone number: Deena Kline RN, BSN, MSN, / [phone] GER MACHINE OPERATOR * [facility] - 09/24/2023 10:07 PM CST Images from [...] levels at steady state. Shayne Stoner RPH GER MACHINE OPERATOR * Germain Donovan MD - 09/24/2023 9:44 PM CST Orthopedic Surgery Postoperative Check Taylor Rutledge, 58 year old, male : 1965 CSN: [id number] Admitted: 09/24/2023 11:47 AM Subjective Nausea/vomiting: none [...] concerns Germain Donovan MD 09/24/2023 9:44 PM GER MACHINE OPERATOR * Libia Lamas RN - 09/24/2023 7:53 [...] found in the flowsheet documentation) Outcome: Progressing GER MACHINE OPERATOR documented in this encounter H&P Notes * Sarah Parsons, GEOSPATIAL TECHNOLOGIST-RAIL SIGNAL WORKER - 09/24/2023 3:59 PM CST [employer] [...] ??? Sleep apnea uses cpap ??? Stroke ([facility] 2021 balance residual ??? Type 2 diabetes mellitus without complications ([facility]) Past Surgical History: Procedure Laterality [...] No Stress: No Stress Concern Present (12/14/2022) [employer] - Occupational Stress Questionnaire [...] MG/0.5ML injection ??? ergocalciferol (Drisdol) 1.25 MG (74259 UT) capsule Take 1 (one) capsule by [...] , HDL , LDLCALC in the last 53699 hours. No results for input(s): AMYLASE in the last 53532 hours. Recent Labs Component Name 12/08/22 1329 12/08/22 1232 MMW5IGX 41.6 40.5 PO2ART 300* 297* J9YKNTDV 100 100 BEART -2 -2 No results for input(s): BNP in the last 31142 hours. No results for input(s): CDIFFTOXINAB in the last 42904 hours. No results for input(s): CK in the last 80483 hours. No results for input(s): CKMB in the last 51501 hours. No results for input(s): CKMBINTERP in the last 63713 hours. Recent Labs Component Name 12/14/22 1933 07/14/14 1359 INR 1.1 1.2 Recent Labs Component Name 12/14/22 1933 07/14/14 1359 PT 13.7 15.0* Recent Labs Component Name 07/14/14 1359 PTT 24.7 No results for input(s): TROPONIN in the last 73237 hours. No results for input(s): TSH in the last 00939 hours. No results for input(s): PHENYTOIN in the last 00559 hours. No results for input(s): DIGOXIN in the last 82269 hours. No results for input(s): MAGMGDL in the last 05484 hours. Recent Labs Component Name 11/27/22 0950 COLORUA Yellow SPECGRAVUA 1.019 PHUA 5.0 PROTEINUA Negative BLOODUA Negative LEUKOCYTEUA Negative NITRITEUA Negative GLUCOSEUA Negative KETONEUA Negative BILIRUBINUA Negative UROBILINUA Negative Recent Labs Component Name 12/14/22193211/27/22 0950 07/15/14 0015 HGBA1C 6.0* 5.6 6.0 ASSESSMENT/PLAN Right hip pain: Orthopedic surgery consulted Plan for OR today NPO Pain management Holding anticoagulation at this time Hypertension CVA history: Continue statin Holding aspirin, Plavix Diabetes: Sliding scale insulin Diabetic diet Mood disorder: Continue Wellbutrin, Zoloft Hypertension: Continue Norvasc, Coreg GERD: Protonix [facility] Diagnoses Present at the Time of Admission Obesity Discussed with Dr Jones Further recommendations pending the course of hospitalization for this patient. Please be advised that this note was created using voice recognition software and there is the potential for misinterpretation. Sarah Parsons APRN-IRIS 09/24/2023 4:25 PM GER MACHINE OPERATOR documented in this encounter Consult Notes * [...] None Angelika Ponce RN 10/03/2023 3:22 PM GER MACHINE OPERATOR * Sophia Hagan LPN - 10/03/2023 9:51 AM CST Referral not opened, as this patient lives out of [facility] [place] service area. Sophia Hagan LPN Referral Liaison [facility]. [phone] GER MACHINE OPERATOR * Leelee Sapp MSW - 10/03/2023 9:20 AM CSTAssociated Order(s): IP CONSULT TO ENROBER TENDER SW acknowledges referral. There are no SW needs determined at this time and will sign off. Please re-consult when needs are identified. DEEPALI Moreira 10/03/2023 9:22 AM [phone] GER MACHINE OPERATOR * Ashish Barnett MD - 09/25/2023 10:12 [...] of right hip arthroplasty in 06/2022 at [facility] in [place], [place]. Due to infectionhe is s/p removal or arthroplasty in 08/30/22 at [facility]; received IV antibiotics x 6 weeks via [...] ??? Sleep apnea uses cpap ??? Stroke ([facility] 2021 balance residual ??? Type 2 diabetes mellitus without complications ([facility]) Past Surgical History: Procedure Laterality [...] results for input(s): CDIFFTOXINAB in the last 06361 hours. Recent Labs Component Name 09/24/23 1058 SEDRATE 50* Recent Labs Component Name 09/24/23 1058 04/04/23 0950 CRP 5.64* 0.33 No results for input(s): CK in the last 17417 hours. .No results for input(s): VANCOTROUGH , VANCOPEAK , VANCSERIES in the last 16483 hours. Invalid input(s): VANCORAND Recent Labs Component Name 09/25/23 0141 12/14/22 [...] infection -06/2022: s/p hip arthroplasty for arthritis ([place], [place]) -08/30/22: s/p hardware removal due to infection, IV abx x 6wks ([place], [place]) -12/08/22: s/p revision arthroplasty, fixation of [...] with patient, care team Ashish Barnett MD GER MACHINE OPERATOR * Torrey Lafleur MD - 09/24/2023 2:45 PM CST Orthopaedic Surgery Consult Note Taylor Horta Maty [phone] Date of service: 09/24/2023 Chief Complaint: Chief Complaint Patient presents with ??? Injury Leg Right leg pain. Hx of hip and knee surgery Subjective: Taylor Rutledge is a 58 year old male who presents to [facility] ED with complaints of acute on [...] ??? Sleep apnea uses cpap ??? Stroke ([facility]) 2021 balance residual ??? Type 2 diabetes mellitus without complications ([facility]) Past Surgical History: Procedure Laterality Date ??? [...] MG/0.5ML injection ??? ergocalciferol (Drisdol) 1.25 MG (87993 UT) capsule ??? ferrous sulfate 325 (65 [...] MG/0.5ML injection ??? ergocalciferol (Drisdol) 1.25 MG (54357 UT) capsule Take 1 (one) capsule by [...] ??? Sleep apnea uses cpap ??? Stroke ([facility]) 2021 balance residual ??? Type 2 diabetes mellitus without complications ([facility]) Past Surgical History: Procedure Laterality [...] is only had increased symptoms for about a day so hopefully this represents acute infection since he had normal inflammatory markers in March 2023. We discussed risk of infection as well as hip instability with repeat irrigation and debridement. We discussed surgery tonight and then possibly in a few days for repeat irrigation and debridement with revision of modular components based on intraoperative findings and cultures. We discusseddifficulty with removal of his revision implants. Patient understood the treatment plan and all questions were answered. Will proceed this evening with aspiration under anesthesia and fluoroscopy with possible irrigation and debridement of his right hip, possible antibiotic bead placement, possiblewound VAC application, possible removal of implants with placement of antibiotic cement spacer. Pain control. DVT prophylaxis. Nonweightbearing right lower extremity. Please [...] MG/0.5ML injection ??? ergocalciferol (Drisdol) 1.25 MG (24149 UT) capsule Take 1 (one) capsule by [...] ??? Sleep apnea uses cpap ??? Stroke ([facility]) 2021 balance residual ??? Type 2 diabetes mellitus without complications ([facility]) Past Surgical History: Procedure Laterality [...] dictation was performed with the use of Cellrox voice recognition and errors with transcriptionmay occur. Please see resident's note for further details. Torrey Lafleur MD GER MACHINE OPERATOR documented in this encounter OR Notes * [...] Role: * Torrey Lafleur MD - Primary Telephony Engineer(s): Jose Villa MD - resident Anesthesia Type: [...] Implant Name Type Inv. Item Serial No. Coke Drawer Lot No. LRB No. Used Action liner [employer] [id number] Right 1 Implanted femoral head [employer] [id number] Right 1 Implanted head sleeve [employer] [id number] Right 1 Implanted Jose Villa MD GER MACHINE OPERATOR * Operative - Torrey Lafleur MD - 10/02/2023 2:29 PM CST DATE OF SURGERY: 10/02/2023 Taylor Rutledge [id number] PREOP DX: Infected right total hip arthroplasty [...] line wound VAC for wound at risk SITE SPECIALIST(S): Jose Villa MD ANESTHESIA: GET INDICATIONS FOR [...] Implant Name Type Inv. Item Serial No. Coke Drawer Lot No. LRB No. Used Action liner [employer] [id number] Right 1 Implanted femoral head [employer] [id number] Right 1 Implanted head sleeve [employer] [id number] Right 1 Implanted COUNTS: Sponge and needle counts were correct at the end of procedure and I was present for the entire case. This dictation was performed with the use of HungerTimeon voice recognition and errors with transcriptionmay occur. Torrey Lafleur MD GER MACHINE OPERATOR * Brief Op Note - Brigido Lundberg [...] Role: * Torrey Lafleur MD - Primary Telephony Engineer(s): Brigido Lundberg MD Tarr, Tony, NP Anesthesia [...] Implant Name Type Inv. Item Serial No. Coke Drawer Lot No. LRB No. Used Action Cmnt Bone Rally 40Gm Hvisc Sprmnt Grn Cmnt Bone Rally 40Gm Hvisc Sprmnt Grn [employer] [id number] Right 1 Implanted Brigido Lundberg MD GER MACHINE OPERATOR * Operative - Torrey Lafleur MD - 09/27/2023 11:17 AM CST DATE OF SURGERY: 09/27/2023 Taylor Rutledge [id number] PREOP DX: Infected right total hip arthroplasty [...] application right hip SURGEON: Omar Lafleur MD SITE SPECIALIST(S): Brigido Lundberg MD and Von Dodson NP was the surgical tech and assisted with surgical retraction, limb manipulation, hip reduction, and wound closure as there was no surgicalfirst rehab assistant or resident available for the surgical [...] and will stay on Lovenox until next Hailey when we will take him back for repeat debridement and closure with revision of the modular components. IMPLANTS - 20 antibiotic cement beads with a 5. Ethibond suture Implant Name Type Inv. Item Serial No. Coke Drawer Lot No. LRB No. Used Action Cmnt Bone Rally 40Gm Hvisc Sprmnt Grn Cmnt Bone Rally 40Gm Hvisc Sprmnt Grn [employer] [id number] Right 1 Implanted COUNTS: Sponge and needle counts were correct at the end of procedure and I was present for the entire case. This dictation was performed with the use of Cellrox voice recognition and errors with transcriptionmay occur. Torrey Lafleur MD GER MACHINE OPERATOR * Brief Op Note - Germain Donovan [...] Role: * Torrey Lafleur MD - Primary Telephony Engineer(s): Manager Med Surg: Felipe Haque RN Scrub Person: Lea Mills [...] Implant Name Type Inv. Item Serial No. Coke Drawer Lot No. LRB No. Used Action Cmnt Bone Rally 40Gm Hvisc Sprmnt Grn Cmnt Bone Rally 40Gm Hvisc Sprmnt Grn [employer] [id number] Right 1 Implanted Germain Donovan MD GER MACHINE OPERATOR * Operative - Torrey Lafleur MD - 09/24/2023 8:49 PM CST DATE OF SURGERY: 09/24/2023 Taylor Rutledge [id number] PREOP DX: Painful right total hip arthroplasty [...] application right hip SURGEON: Omar Lafleur MD SITE SPECIALIST(S): Dustin Donovan MD ANESTHESIA: GET INDICATIONS FOR [...] Implant Name Type Inv. Item Serial No. Coke Drawer Lot No. LRB No. Used Action Cmnt Bone Rally 40Gm Hvisc Sprmnt Grn Cmnt Bone Rally 40Gm Hvisc Sprmnt Grn [employer] [id number] Right 1 Implanted COUNTS: Sponge and needle counts were correct at the end of procedure and I was present for the entire case. This dictation was performed with the use of Cellrox voice recognition and errors with transcriptionmay occur. Torrey Lafleur MD GER MACHINE OPERATOR documented in this encounter ED Notes * Angelica Galeana RN - 09/24/2023 3:59 PM CST Report given to RN on 2E. RN will transport patient to . GER MACHINE OPERATOR * Guille Aguilera RN - 09/24/2023 2:25 [...] No signs of distress. Pt wheelchaired to [place] by transporter at this time. GER MACHINE OPERATOR * Drew Lerma, - 09/24/2023 1:47 PM CST Taylor Rutledge [id number] [facility] History Chief [...] ??? Sleep apnea uses cpap ??? Stroke ([facility]) 2021 balance residual ??? Type 2 diabetes mellitus without complications ([facility]) Past Surgical History: Procedure Laterality [...] No Stress: No Stress Concern Present (12/14/2022) [employer] - Occupational Stress Questionnaire [...] MG/0.5ML injection ??? ergocalciferol (Drisdol) 1.25 MG (28204 UT) capsule Take 1 (one) capsule by [...] VAS RIGHT [place] [id number] Lower Extremity Venous Ultrasound Report Pat.Name: MATY TAYLOR Mychal Greer.ID: [id number] .Date: 09/24/2023 Refer.MD: Drew Lerma Exam Time: 3:44:00 PM Study Type:LE Venous Age: 9 1965,58Y Sex: MALE Sonogrphr: Cheryl Gaines RVT Pat. Stat.:Inpatient ICD - 9: M25.551 Reason for Study: Pain -Leg, right Procedures: Lower Extremity Venous - Right Race: 1 Visit ID: [id number] ++++++++++++++++++++++++++++++++++++ SUMMARY: ++++++++++++++++++++++++++++++++++++ Technically difficult study. No [...] DATE/TIME OF EXAM: 09/24/2023 11:24 AM, LOCATION [facility] INDICATION: M25.551: Pain in right hip [...] DATE/TIME OF EXAM: 09/24/2023 11:23 AM, LOCATION [facility] INDICATION: M25.551: Pain in right hip [...] ED Course Clinical Impressions as of 09/24/23 1378 Pain of right hip Inability to ambulate [...] mL ??? 0.9% NaCl IV flush bag GER MACHINE OPERATOR * Kip Storey PA - 09/24/2023 10:11 AM CST Taylor Rutledge [id number] [facility] History Chief [...] ??? Sleep apnea uses cpap ??? Stroke ([facility] 2021 balance residual ??? Type 2 diabetes mellitus without complications ([facility]) Past Surgical History: Procedure Laterality Date ??? [...] No Stress: No Stress Concern Present (12/14/2022) [employer] - Occupational Stress Questionnaire [...] MG/0.5ML injection ??? ergocalciferol (Drisdol) 1.25 MG (59994 UT) capsule Take 1 (one) capsule by [...] mg ??? ondansetron (Zofran) injection 4 mg GER MACHINE OPERATOR documented in this encounter Miscellaneous Notes * [...] A PERMANENT PART OF THE MEDICAL RECORD. GER MACHINE OPERATOR documented in this encounter Plan of Treatment Upcoming Encounters Date Type Department Care Team (Late st Contact Info) Description 01/20/2025 10:00 AM CDT Office Visit [facility] - Orthopedic Surgery [address] [place] [address] Torrey Lafleur MD [address] [facility] [address] [place] [address] Scheduled Referrals Name Type Priority Associated Diagnoses Orde r Schedule Referral to Home Health Care Outpatient Referral Routine Infection of prosthetic joint, initial encounter ([facility]) Ordered: 10/03/2023 documented as of this encounter Procedures Procedure Name Priority Date/Time Associated Diagnosis Comments CARDIAC RHYTHM STRIP ORDER 10/06/2023 12:03 PM BLUNGER MACHINE OPERATOR GLUCOSE - POINT OF CARE Routine 10/04/2023 7:54 AM BLUNGER MACHINE OPERATOR GLUCOSE - POINT OF CARE Routine 10/04/2023 12:00 AM BLUNGER MACHINE OPERATOR GLUCOSE - POINT OF CARE Routine 10/03/2023 8:21 PM BLUNGER MACHINE OPERATOR GLUCOSE - POINT OF CARE Routine 10/03/2023 4:51 PM BLUNGER MACHINE OPERATOR GLUCOSE - POINT OF CARE Routine 10/03/2023 11:42 AM BLUNGER MACHINE OPERATOR HGB HCT PANEL AM Draw 10/03/2023 8:51 AM BLUNGER MACHINE OPERATOR OT EVAL AND TREAT Routine 10/03/2023 8:2 6 AM BLUNGER MACHINE OPERATOR PT EVAL AND TREAT Routine 10/03/2023 8:2 6 AM BLUNGER MACHINE OPERATOR GLUCOSE - POINT OF CARE Routine 10/03/2023 7:51 AM BLUNGER MACHINE OPERATOR GLUCOSE - POINT OF CARE Routine 10/02/2023 8:56 PM BLUNGER MACHINE OPERATOR GLUCOSE - POINT OF CARE Routine 10/02/2023 6:05 PM BLUNGER MACHINE OPERATOR GLUCOSE - POINT OF CARE Routine 10/02/2023 4:25 PM BLUNGER MACHINE OPERATOR GLUCOSE - POINT OF CARE Routine 10/02/2023 8:06 AM BLUNGER MACHINE OPERATOR GLUCOSE - POINT OF CARE Routine 10/01/2023 8:07 PM BLUNGER MACHINE OPERATOR GLUCOSE - POINT OF CARE Routine 10/01/2023 4:33 PM BLUNGER MACHINE OPERATOR GLUCOSE - POINT OF CARE Routine 10/01/2023 11:23 AM BLUNGER MACHINE OPERATOR GLUCOSE - POINT OF CARE Routine 10/01/2023 7:32 AM BLUNGER MACHINE OPERATOR GLUCOSE - POINT OF CARE Routine 09/30/2023 8:46 PM BLUNGER MACHINE OPERATOR GLUCOSE - POINT OF CARE Routine 09/30/2023 3:51 PM BLUNGER MACHINE OPERATOR GLUCOSE - POINT OF CARE Routine 09/30/2023 11:21 AM BLUNGER MACHINE OPERATOR GLUCOSE - POINT OF CARE Routine 09/30/2023 7:36 AM BLUNGER MACHINE OPERATOR HEPATIC FUNCTION PANEL AM Draw 09/30/2023 3:49 AM BLUNGER MACHINE OPERATOR GLUCOSE - POINT OF CARE Routine 09/29/2023 8:02 PM BLUNGER MACHINE OPERATOR GLUCOSE - POINT OF CARE Routine 09/29/2023 3:23 PM BLUNGER MACHINE OPERATOR GLUCOSE - POINT OF CARE Routine 09/29/2023 11:27 AM BLUNGER MACHINE OPERATOR GLUCOSE - POINT OF CARE Routine 09/29/2023 7:41 AM BLUNGER MACHINE OPERATOR GLUCOSE - POINT OF CARE Routine 09/28/2023 7:47 PM BLUNGER MACHINE OPERATOR GLUCOSE - POINT OF CARE Routine 09/28/2023 4:31 PM BLUNGER MACHINE OPERATOR GLUCOSE - POINT OF CARE Routine 09/28/2023 11:06 AM BLUNGER MACHINE OPERATOR GLUCOSE - POINT OF CARE Routine 09/28/2023 7:44 AM BLUNGER MACHINE OPERATOR GLUCOSE - POINT OF CARE Routine 09/27/2023 10:05 PM BLUNGER MACHINE OPERATOR GLUCOSE - POINT OF CARE Routine 09/27/2023 4:08 PM BLUNGER MACHINE OPERATOR GLUCOSE - POINT OF CARE Routine 09/27/2023 12:20 PM BLUNGER MACHINE OPERATOR CULTURE WOUND+GRAM STAIN STAT 09/27/2023 11:21 AM BLUNGER MACHINE OPERATOR Diagnosis unknown CULTURE ANAEROBE STAT 09/27/2023 11:2 1 AM BLUNGER MACHINE OPERATOR Diagnosis unknown OR INNA SUBQ TISSUE 20 SQ CM/< 09/27/2023 10:33 AM BLUNGER MACHINE OPERATOR Diagnosis unknown Special Needs NEEDS REGULAR O.R. TABLE, WOUND VAC SUPPLIES KEPT IN O.R. SUPPLY ROOM, WOUND VAC MACHINE NEEDS TO BE SENT FROM THE PATIENT'S ROOM TO SURGERY--09/25 KW GLUCOSE - POINT OF CARE Routine 09/27/2023 7:50 AM BLUNGER MACHINE OPERATOR GLUCOSE - POINT OF CARE Routine 09/26/2023 8:15 PM BLUNGER MACHINE OPERATOR GLUCOSE - POINT OF CARE Routine 09/26/2023 4:31 PM BLUNGER MACHINE OPERATOR GLUCOSE - POINT OF CARE Routine 09/26/2023 11:40 AM BLUNGER MACHINE OPERATOR VANCOMYCIN LEVEL TROUGH STAT 09/26/2023 11:00 AM BLUNGER MACHINE OPERATOR GLUCOSE - POINT OF CARE Routine 09/26/2023 7:38 AM BLUNGER MACHINE OPERATOR VANCOMYCIN LEVEL PEAK STAT 09/26/2023 4:55 AM BLUNGER MACHINE OPERATOR GLUCOSE - POINT OF CARE Routine 09/25/2023 9:55 PM BLUNGER MACHINE OPERATOR GLUCOSE - POINT OF CARE Routine 09/25/2023 4:17 PM BLUNGER MACHINE OPERATOR GLUCOSE - POINT OF CARE Routine 09/25/2023 12:00 PM BLUNGER MACHINE OPERATOR CULTURE BLOOD Timed 09/25/2023 10:45 AM BLUNGER MACHINE OPERATOR Infection of prosthetic joint, initial encounter (HCC) CULTURE BLOOD Timed 09/25/2023 10:41 AM BLUNGER MACHINE OPERATOR Infection of prosthetic joint, initial encounter (HCC) GLUCOSE - POINT OF CARE Routine 09/25/2023 7:50 AM BLUNGER MACHINE OPERATOR HEMOGLOBIN A1C Routine 09/25/2023 1:41 AM BLUNGER MACHINE OPERATOR CBC W/O DIFFERENTIAL Routine 09/25/2023 1:41 AM BLUNGER MACHINE OPERATOR BASIC METABOLIC PANEL (CALCIUM TOTAL) Routine 09/25/2023 1:41 AM BLUNGER MACHINE OPERATOR GLUCOSE - POINT OF CARE Routine 09/24/2023 10:51 PM BLUNGER MACHINE OPERATOR GLUCOSE - POINT OF CARE Routine 09/24/2023 9:50 PM BLUNGER MACHINE OPERATOR CULTURE FUNGUS OTHER+FUNGUS SMEAR STAT 09/24/2023 9:01 PM BLUNGER MACHINE OPERATOR Diagnosis unknown CULTURE TISSUE+GRAM STAIN STAT 09/24/2023 9:01 PM BLUNGER MACHINE OPERATOR Diagnosis unknown CULTURE AFB+SMEAR STAT 09/24/2023 9:0 1 PM BLUNGER MACHINE OPERATOR Diagnosis unknown CULTURE ANAEROBE STAT 09/24/2023 9:01 PM BLUNGER MACHINE OPERATOR Diagnosis unknown CULTURE FUNGUS OTHER+FUNGUS SMEAR STAT 09/24/2023 8:58 PM BLUNGER MACHINE OPERATOR Diagnosis unknown CULTURE TISSUE+GRAM STAIN STAT 09/24/2023 8:58 PM BLUNGER MACHINE OPERATOR Diagnosis unknown CULTURE AFB+SMEAR STAT 09/24/2023 8:5 8 PM BLUNGER MACHINE OPERATOR Diagnosis unknown CULTURE ANAEROBE STAT 09/24/2023 8:58 PM BLUNGER MACHINE OPERATOR Diagnosis unknown FL GUIDED NEEDLE PLACEMENT STAT 09/24/2023 8:45 PM BLUNGER MACHINE OPERATOR Pain of right hip PATHOLOGY SMEAR BODY FLUID Add on 09/24/2023 8:28 PM BLUNGER MACHINE OPERATOR Diagnosis unknown DIFFERENTIAL MANUAL FLUID Add on 09/24/2023 8:28 PM BLUNGER MACHINE OPERATOR Diagnosis unknown CRYSTAL IDENTIFICATION FLUID STAT 09/24/2023 8:28 PM BLUNGER MACHINE OPERATOR Diagnosis unknown CELL COUNT W DIFFERENTIAL FLUID STAT 09/24/2023 8:28 PM BLUNGER MACHINE OPERATOR Diagnosis unknown CULTURE FUNGUS OTHER+FUNGUS SMEAR STAT 09/24/2023 8:27 PM BLUNGER MACHINE OPERATOR Diagnosis unknown CULTURE FLUID+GRAM STAIN STAT 09/24/2023 8:27 PM BLUNGER MACHINE OPERATOR Diagnosis unknown CULTURE AFB+SMEAR STAT 09/24/2023 8:2 7 PM BLUNGER MACHINE OPERATOR Diagnosis unknown CULTURE ANAEROBE STAT 09/24/2023 8:27 PM BLUNGER MACHINE OPERATOR Diagnosis unknown GLUCOSE - POINT OF CARE Routine 09/24/2023 6:06 PM BLUNGER MACHINE OPERATOR OT EVAL AND TREAT Routine 09/24/2023 4:2 6 PM BLUNGER MACHINE OPERATOR PT EVAL AND TREAT Routine 09/24/2023 4:2 6 PM BLUNGER MACHINE OPERATOR CT LOWER EXT RIGHT W CONTRAST STAT 09/24/2023 2:41 PM BLUNGER MACHINE OPERATOR Pain of right hip VAS RIGHT VENOUS DUPLEX LE STAT 09/24/2023 1:37 PM BLUNGER MACHINE OPERATOR Pain of right hip XR FEMUR RIGHT 2VW STAT 09/24/2023 11 :23 AM BLUNGER MACHINE OPERATOR Pain of right hip XR PELVIS 1 OR 2VW STAT 09/24/2023 11 :23 AM BLUNGER MACHINE OPERATOR Pain of right hip C-REACTIVE PROTEIN STAT 09/24/2023 10 :58 AM BLUNGER MACHINE OPERATOR ERYTHROCYTE SEDIMENTATION RATE STAT 09/24/2023 10:58 AM BLUNGER MACHINE OPERATOR DIFFERENTIAL MANUAL STAT 09/24/2023 1 0:58 AM BLUNGER MACHINE OPERATOR CBC W AUTO DIFFERENTIAL STAT 09/24/2023 10:58 AM BLUNGER MACHINE OPERATOR BASIC METABOLIC PANEL (CALCIUM TOTAL) STAT 09/24/2023 10:58 AM BLUNGER MACHINE OPERATOR documented in this encounter Results * CARDIAC RHYTHM STRIP ORDER (10/06/2023 12:03 PM BLUNGER MACHINE OPERATOR) Narrative 10/06/2023 12:03 PM BLUNGER MACHINE OPERATOR Ordered by an unspecified provider. Scanned Document CARDIAC SERVICES ORD ERABLES * (ABNORMAL) GLUCOSE - POINT OF CARE (10/04/2023 7:54 AM BLUNGER MACHINE OPERATOR) Glucose WB/POC 119(H) 70 - 106 mg/dL 10/04/2023 11:29 AM BLUNGER MACHINE OPERATOR [facility] Specimen Type Cap Fingerstick 2023 11:29 AM BLUNGER MACHINE OPERATOR [facility] Blood BLOOD SPECIMEN / Unknown 10/04/2023 7:54 AM BLUNGER MACHINE OPERATOR 10/04/2023 11:29 AM BLUNGER MACHINE OPERATOR Praveen Kaufman MD LAB - POINT OF CARE ORDERABLES Performing Organization Address City/[facility] Co de Phone Number [facility] [address] [place] [address] [phone] * (ABNORMAL) GLUCOSE - POINT OF CARE (10/04/2023 12:00 AM BLUNGER MACHINE OPERATOR) Glucose WB/POC 181(H) 70 - 106 mg/dL 10/04/2023 12:10 AM BLUNGER MACHINE OPERATOR [facility] Specimen Type Cap Fingerstick 2023 12:10 AM BLUNGER MACHINE OPERATOR [facility] Blood BLOOD SPECIMEN / Unknown 10/04/2023 12:00 AM BLUNGER MACHINE OPERATOR 10/04/2023 12:10 AM BLUNGER MACHINE OPERATOR Praveen Kaufman MD LAB - POINT OF CARE ORDERABLES [facility] [address] [place] [address] [phone] * (ABNORMAL) GLUCOSE - POINT OF CARE (10/03/2023 8:21 PM BLUNGER MACHINE OPERATOR) Glucose WB/POC 141(H) 70 - 106 mg/dL 10/03/2023 8:30 PM BLUNGER MACHINE OPERATOR [facility] Specimen Type Cap Fingerstick 2023 8:30 PM BLUNGER MACHINE OPERATOR [facility] Blood BLOOD SPECIMEN / Unknown 10/03/2023 8:21 PM BLUNGER MACHINE OPERATOR 10/03/2023 8:30 PM BLUNGER MACHINE OPERATOR Praveen Kaufman MD LAB - POINT OF CARE ORDERABLES Performing Organization Address [facility]/ZIP Co de Phone Number [facility] [address] [place] [address] [phone] * (ABNORMAL) GLUCOSE - POINT OF CARE (10/03/2023 4:51 PM BLUNGER MACHINE OPERATOR) Glucose WB/POC 134(H) 70 - 106 mg/dL 10/03/2023 5:01 PM BLUNGER MACHINE OPERATOR [facility] Specimen Type Cap Fingerstick 2023 5:01 PM BLUNGER MACHINE OPERATOR [facility] Blood BLOOD SPECIMEN / Unknown 10/03/2023 4:51 PM BLUNGER MACHINE OPERATOR 10/03/2023 5:01 PM BLUNGER MACHINE OPERATOR Praveen Kaufman MD LAB - POINT OF CARE ORDERABLES Performing Organization Address [facility] de Phone Number [facility] [address] [place] [address] [phone] * (ABNORMAL) GLUCOSE - POINT OF CARE (10/03/2023 11:42 AM BLUNGER MACHINE OPERATOR) Glucose WB/POC 136(H) 70 - 106 mg/dL 10/03/2023 11:51 AM BLUNGER MACHINE OPERATOR [facility] Specimen Type Cap Fingerstick 2023 11:51 AM BLUNGER MACHINE OPERATOR [facility] Blood BLOOD SPECIMEN / Unknown 10/03/2023 11:42 AM BLUNGER MACHINE OPERATOR 10/03/2023 11:51 AM BLUNGER MACHINE OPERATOR Praveen Kaufman MD LAB - POINT OF CARE ORDERABLES Performing Organization Address [facility] Co de Phone Number [facility] [address] [place] [address] [phone] * (ABNORMAL) HGB HCT PANEL (10/03/2023 8:51 AM BLUNGER MACHINE OPERATOR) Hemoglobin 8.4(L) 13.3 - 17.5 g/dL 10/03/2023 9:29 AM BLUNGER MACHINE OPERATOR [facility] Hematocrit 26.7(L) 38.7 - 51.1 % 10/03/2023 9:29 AM BLUNGER MACHINE OPERATOR [facility] Blood BLOOD SPECIMEN / Unknown Lab Venipuncture / Unknown 10/03/2023 8:51 AM BLUNGER MACHINE OPERATOR 10/03/2023 9:20 AM BLUNGER MACHINE OPERATOR Praveen Kaufman MD LAB - HEMATOLOGY ORD ERABLES [facility] [address] [place] [address] [phone] * (ABNORMAL) GLUCOSE - POINT OF CARE (10/03/2023 7:51 AM BLUNGER MACHINE OPERATOR) Glucose WB/POC 135(H) 70 - 106 mg/dL 10/03/2023 8:13 AM BLUNGER MACHINE OPERATOR [facility] Specimen Type Cap Fingerstick 2023 8:13 AM BLUNGER MACHINE OPERATOR [facility] Blood BLOOD SPECIMEN / Unknown 10/03/2023 7:51 AM BLUNGER MACHINE OPERATOR 10/03/2023 8:13 AM BLUNGER MACHINE OPERATOR Praveen Kaufman MD LAB - POINT OF CARE ORDERABLES Performing Organization Address City/[facility]/ZIP Co de Phone Number [facility] [address] [place] [address] [phone] * (ABNORMAL) GLUCOSE - POINT OF CARE (10/02/2023 8:56 PM BLUNGER MACHINE OPERATOR) Glucose WB/POC 274(H) 70 - 106 mg/dL 10/03/2023 12:18 AM BLUNGER MACHINE OPERATOR [facility] Specimen Type Cap Fingerstick 2023 12:18 AM BLUNGER MACHINE OPERATOR [facility] Blood BLOOD SPECIMEN / Unknown 10/02/2023 8:56 PM BLUNGER MACHINE OPERATOR 10/03/2023 12:18 AM BLUNGER MACHINE OPERATOR Praveen Kaufman MD LAB - POINT OF CARE ORDERABLES [facility] [address] [place] [address] [phone] * (ABNORMAL) GLUCOSE - POINT OF CARE (10/02/2023 6:05 PM BLUNGER MACHINE OPERATOR) Glucose WB/POC 165(H) 70 - 106 mg/dL 10/02/2023 6:11 PM BLUNGER MACHINE OPERATOR [facility] Specimen Type Cap Fingerstick 2023 6:11 PM BLUNGER MACHINE OPERATOR [facility] Blood BLOOD SPECIMEN / Unknown 10/02/2023 6:05 PM BLUNGER MACHINE OPERATOR 10/02/2023 6:11 PM BLUNGER MACHINE OPERATOR Praveen Kaufman MD LAB - POINT OF CARE ORDERABLES Performing Organization Address City/[facility]/ZIP Co de Phone Number [facility] [address] [place] [address] [phone] * (ABNORMAL) GLUCOSE - POINT OF CARE (10/02/2023 4:25 PM BLUNGER MACHINE OPERATOR) Glucose WB/POC 150(H) 70 - 106 mg/dL 10/03/2023 7:28 AM BLUNGER MACHINE OPERATOR [facility] Specimen Type Cap Fingerstick 2023 7:28 AM BLUNGER MACHINE OPERATOR [facility] Blood BLOOD SPECIMEN / Unknown 10/02/2023 4:25 PM BLUNGER MACHINE OPERATOR 10/03/2023 7:28 AM BLUNGER MACHINE OPERATOR Praveen Kaufman MD LAB - POINT OF CARE ORDERABLES Performing Organization Address [facility] Co de Phone Number [facility] [address] [place] [address] [phone] * GLUCOSE - POINT OF CARE (10/02/2023 8:06 AM BLUNGER MACHINE OPERATOR) Glucose WB/POC 104 70 - 106 mg/dL 10/02/2023 8:12 AM BLUNGER MACHINE OPERATOR [facility] Specimen Type Cap Fingerstick 2023 8:12 AM BLUNGER MACHINE OPERATOR [facility] Blood BLOOD SPECIMEN / Unknown 10/02/2023 8:06 AM BLUNGER MACHINE OPERATOR 10/02/2023 8:12 AM BLUNGER MACHINE OPERATOR Praveen Kaufman MD LAB - POINT OF CARE ORDERABLES Performing Organization Address City/[facility]/ZIP Co de Phone Number [facility] [address] [place] [address] [phone] * (ABNORMAL) GLUCOSE - POINT OF CARE (10/01/2023 8:07 PM BLUNGER MACHINE OPERATOR) Glucose WB/POC 205(H) 70 - 106 mg/dL 10/01/2023 8:13 PM BLUNGER MACHINE OPERATOR [facility] Specimen Type Cap Fingerstick 2023 8:13 PM BLUNGER MACHINE OPERATOR [facility] Blood BLOOD SPECIMEN / Unknown 10/01/2023 8:07 PM BLUNGER MACHINE OPERATOR 10/01/2023 8:13 PM BLUNGER MACHINE OPERATOR Praveen Kaufman MD LAB - POINT OF CARE ORDERABLES Performing Organization Address [facility]/ZIP Co de Phone Number [facility] [address] [place] [address] [phone] * (ABNORMAL) GLUCOSE - POINT OF CARE (10/01/2023 4:33 PM BLUNGER MACHINE OPERATOR) Glucose WB/POC 130(H) 70 - 106 mg/dL 10/01/2023 4:47 PM BLUNGER MACHINE OPERATOR [facility] Specimen Type Arterial 10/01/2023 4:47 PM BLUNGER MACHINE OPERATOR [facility] Blood BLOOD SPECIMEN / Unknown 10/01/2023 4:33 PM BLUNGER MACHINE OPERATOR 10/01/2023 4:47 PM BLUNGER MACHINE OPERATOR Praveen Kaufman MD LAB - POINT OF CARE ORDERABLES Performing Organization Address [facility] de Phone Number [facility] [address] [place] [address] [phone] * (ABNORMAL) GLUCOSE - POINT OF CARE (10/01/2023 11:23 AM BLUNGER MACHINE OPERATOR) Glucose WB/POC 198(H) 70 - 106 mg/dL 10/01/2023 11:33 AM BLUNGER MACHINE OPERATOR [facility] Specimen Type Cap Fingerstick 2023 11:33 AM BLUNGER MACHINE OPERATOR [facility] Blood BLOOD SPECIMEN / Unknown 10/01/2023 11:23 AM BLUNGER MACHINE OPERATOR 10/01/2023 11:33 AM BLUNGER MACHINE OPERATOR Praveen Kaufman MD LAB - POINT OF CARE ORDERABLES [facility] [address] [place] [address] [phone] * (ABNORMAL) GLUCOSE - POINT OF CARE (10/01/2023 7:32 AM BLUNGER MACHINE OPERATOR) Glucose WB/POC 115(H) 70 - 106 mg/dL 10/01/2023 7:41 AM BLUNGER MACHINE OPERATOR [facility] Specimen Type Cap Fingerstick 2023 7:41 AM BLUNGER MACHINE OPERATOR [facility] Blood BLOOD SPECIMEN / Unknown 10/01/2023 7:32 AM BLUNGER MACHINE OPERATOR 10/01/2023 7:41 AM BLUNGER MACHINE OPERATOR Praveen Kaufman MD LAB - POINT OF CARE ORDERABLES Performing Organization Address [facility] Co de Phone Number [facility] [address] [place] [address] [phone] * (ABNORMAL) GLUCOSE - POINT OF CARE (09/30/2023 8:46 PM BLUNGER MACHINE OPERATOR) Glucose WB/POC 152(H) 70 - 106 mg/dL 09/30/2023 8:56 PM BLUNGER MACHINE OPERATOR [facility] Specimen Type Cap Fingerstick 2023 8:56 PM BLUNGER MACHINE OPERATOR [facility] Blood BLOOD SPECIMEN / Unknown 09/30/2023 8:46 PM BLUNGER MACHINE OPERATOR 09/30/2023 8:56 PM BLUNGER MACHINE OPERATOR Praveen Kaufman MD LAB - POINT OF CARE ORDERABLES Performing Organization Address City/[facility]/ZIP Co de Phone Number [facility] [address] [place] [address] [phone] * (ABNORMAL) GLUCOSE - POINT OF CARE (09/30/2023 3:51 PM BLUNGER MACHINE OPERATOR) Glucose WB/POC 170(H) 70 - 106 mg/dL 09/30/2023 4:01 PM BLUNGER MACHINE OPERATOR [facility] Specimen Type Cap Fingerstick 2023 4:01 PM BLUNGER MACHINE OPERATOR [facility] Blood BLOOD SPECIMEN / Unknown 09/30/2023 3:51 PM BLUNGER MACHINE OPERATOR 09/30/2023 4:01 PM BLUNGER MACHINE OPERATOR Praveen Kaufman MD LAB - POINT OF CARE ORDERABLES Performing Organization Address [facility]/ZIP Co de Phone Number [facility] [address] [place], [place] [phone] * (ABNORMAL) GLUCOSE - POINT OF CARE (09/30/2023 11:21 AM BLUNGER MACHINE OPERATOR) Glucose WB/POC 194(H) 70 - 106 mg/dL 09/30/2023 11:45 AM BLUNGER MACHINE OPERATOR [facility] Specimen Type Cap Fingerstick 2023 11:45 AM BLUNGER MACHINE OPERATOR [facility] Blood BLOOD SPECIMEN / Unknown 09/30/2023 11:21 AM BLUNGER MACHINE OPERATOR 09/30/2023 11:45 AM BLUNGER MACHINE OPERATOR Praveen Kaufman MD LAB - POINT OF CARE ORDERABLES Performing Organization Address [facility] Co de Phone Number [facility] [address] [place] [address] * (ABNORMAL) GLUCOSE - POINT OF CARE (09/30/2023 7:36 AM BLUNGER MACHINE OPERATOR) Glucose WB/POC 107(H) 70 - 106 mg/dL 09/30/2023 8:02 AM BLUNGER MACHINE OPERATOR [facility] Specimen Type Cap Fingerstick 2023 8:02 AM BLUNGER MACHINE OPERATOR [facility] Blood BLOOD SPECIMEN / Unknown 09/30/2023 7:36 AM BLUNGER MACHINE OPERATOR 09/30/2023 8:02 AM BLUNGER MACHINE OPERATOR Praveen Kaufman MD LAB - POINT OF CARE ORDERABLES Performing Organization Address City/[facility]/ZIP Co de Phone Number [facility] [address] [place] [address] [phone] * (ABNORMAL) HEPATIC FUNCTION PANEL (09/30/2023 3:49 AM BLUNGER MACHINE OPERATOR) Alkaline Phosphatase 76 40 - 150 U/L 09/30/2023 4:49 AM BLUNGER MACHINE OPERATOR [facility] ALT 28 0 - 55 U/L 09/30/2023 4:49 AM BLUNGER MACHINE OPERATOR [facility] AST 31 5 - 34 U/L 09/30/2023 4:49 AM BLUNGER MACHINE OPERATOR [facility] Protein Total 5.8(L) 6.4 - 8.3 gm/dL 09/30/2023 4:49 AM BLUNGER MACHINE OPERATOR [facility] Albumin 2.3(L) 3.4 - 5.0 gm/dL 09/30/2023 4:49 AM [facility] Bilirubin Total 0.5 0.2 - 1.2 mg/dL 09/30/2023 4:49 AM BLUNGER MACHINE OPERATOR [facility] Bilirubin Direct 0.171 0.10 - 0.50 mg/dL 09/30/2023 4:49 AM BLUNGER MACHINE OPERATOR [facility] Blood BLOOD SPECIMEN / Unknown Lab Venipuncture / Unknown 09/30/2023 3:49 AM BLUNGER MACHINE OPERATOR 09/30/2023 3:56 AM BLUNGER MACHINE OPERATOR Ashish Barnett MD LAB - CHEMIS TRY ORDERABLES Performing Organization Address City/[facility] Co de Phone Number [facility] [address] [place] [address] [phone] * (ABNORMAL) GLUCOSE - POINT OF CARE (09/29/2023 8:02 PM BLUNGER MACHINE OPERATOR) Glucose WB/POC 208(H) 70 - 106 mg/dL 09/29/2023 8:11 PM BLUNGER MACHINE OPERATOR [facility] Specimen Type Cap Fingerstick 2023 8:11 PM BLUNGER MACHINE OPERATOR [facility] Blood BLOOD SPECIMEN / Unknown 09/29/2023 8:02 PM BLUNGER MACHINE OPERATOR 09/29/2023 8:11 PM BLUNGER MACHINE OPERATOR Praveen Kaufman MD LAB - POINT OF CARE ORDERABLES Performing Organization Address City/[facility]/ZIP Co de Phone Number [facility] [address] [place] [address] [phone] * (ABNORMAL) GLUCOSE - POINT OF CARE (09/29/2023 3:23 PM BLUNGER MACHINE OPERATOR) Glucose WB/POC 171(H) 70 - 106 mg/dL 09/29/2023 3:36 PM BLUNGER MACHINE OPERATOR [facility] Specimen Type Cap Fingerstick 2023 3:36 PM BLUNGER MACHINE OPERATOR [facility] Blood BLOOD SPECIMEN / Unknown 09/29/2023 3:23 PM BLUNGER MACHINE OPERATOR 09/29/2023 3:36 PM BLUNGER MACHINE OPERATOR Praveen Kaufman MD LAB - POINT OF CARE ORDERABLES Performing Organization Address [facility] Co de Phone Number [facility] [address] [place] [address] [phone] * (ABNORMAL) GLUCOSE - POINT OF CARE (09/29/2023 11:27 AM BLUNGER MACHINE OPERATOR) Glucose WB/POC 160(H) 70 - 106 mg/dL 09/29/2023 3:48 PM BLUNGER MACHINE OPERATOR [facility] Specimen Type Cap Fingerstick 2023 3:48 PM BLUNGER MACHINE OPERATOR [facility] Blood BLOOD SPECIMEN / Unknown 09/29/2023 11:27 AM BLUNGER MACHINE OPERATOR 09/29/2023 3:48 PM BLUNGER MACHINE OPERATOR Praveen Kaufman MD LAB - POINT OF CARE ORDERABLES Performing Organization Address [facility] de Phone Number [facility] [address] [place] [address] [phone] * (ABNORMAL) GLUCOSE - POINT OF CARE (09/29/2023 7:41 AM BLUNGER MACHINE OPERATOR) Glucose WB/POC 119(H) 70 - 106 mg/dL 09/29/2023 9:03 AM BLUNGER MACHINE OPERATOR [facility] Specimen Type Cap Fingerstick 2023 9:03 AM BLUNGER MACHINE OPERATOR [facility] Blood BLOOD SPECIMEN / Unknown 09/29/2023 7:41 AM BLUNGER MACHINE OPERATOR 09/29/2023 9:03 AM BLUNGER MACHINE OPERATOR Praveen Kaufman MD LAB - POINT OF CARE ORDERABLES Performing Organization Address [facility] Co de Phone Number [facility] [address] [place] [address] [phone] * (ABNORMAL) GLUCOSE - POINT OF CARE (09/28/2023 7:47 PM BLUNGER MACHINE OPERATOR) Glucose WB/POC 198(H) 70 - 106 mg/dL 09/28/2023 7:53 PM BLUNGER MACHINE OPERATOR [facility] Specimen Type Cap Fingerstick 2023 7:53 PM BLUNGER MACHINE OPERATOR [facility] Blood BLOOD SPECIMEN / Unknown 09/28/2023 7:47 PM BLUNGER MACHINE OPERATOR 09/28/2023 7:53 PM BLUNGER MACHINE OPERATOR Praveen Kaufman MD LAB - POINT OF CARE ORDERABLES [facility] [address] [place] [phone] * (ABNORMAL) GLUCOSE - POINT OF CARE (09/28/2023 4:31 PM BLUNGER MACHINE OPERATOR) Glucose WB/POC 131(H) 70 - 106 mg/dL 09/28/2023 4:41 PM BLUNGER MACHINE OPERATOR [facility] Specimen Type Cap Fingerstick 2023 4:41 PM BLUNGER MACHINE OPERATOR [facility] Blood BLOOD SPECIMEN / Unknown 09/28/2023 4:31 PM BLUNGER MACHINE OPERATOR 09/28/2023 4:41 PM BLUNGER MACHINE OPERATOR Praveen Kaufman MD LAB - POINT OF CARE ORDERABLES Performing Organization Address [facility]/ZIP Co de Phone Number [facility] [address] [place] [phone] * (ABNORMAL) GLUCOSE - POINT OF CARE (09/28/2023 11:06 AM BLUNGER MACHINE OPERATOR) Glucose WB/POC 155(H) 70 - 106 mg/dL 09/28/2023 11:16 AM BLUNGER MACHINE OPERATOR [facility] Specimen Type Cap Fingerstick 2023 11:16 AM BLUNGER MACHINE OPERATOR [facility] Blood BLOOD SPECIMEN / Unknown 09/28/2023 11:06 AM BLUNGER MACHINE OPERATOR 09/28/2023 11:16 AM BLUNGER MACHINE OPERATOR Praveen Kaufman MD LAB - POINT OF CARE ORDERABLES [facility] [address] [place] [id number] * (ABNORMAL) GLUCOSE - POINT OF CARE (09/28/2023 7:44 AM BLUNGER MACHINE OPERATOR) Glucose WB/POC 149(H) 70 - 106 mg/dL 09/28/2023 7:54 AM BLUNGER MACHINE OPERATOR [facility] Specimen Type Cap Fingerstick 2023 7:54 AM BLUNGER MACHINE OPERATOR [facility] Blood BLOOD SPECIMEN / Unknown 09/28/2023 7:44 AM BLUNGER MACHINE OPERATOR 09/28/2023 7:54 AM BLUNGER MACHINE OPERATOR Praveen Kaufman MD LAB - POINT OF CARE ORDERABLES Performing Organization Address [place] Hospital/ZIP Co de Phone Number [facility] [address] [place] [phone] * (ABNORMAL) GLUCOSE - POINT OF CARE (09/27/2023 10:05 PM BLUNGER MACHINE OPERATOR) Glucose WB/POC 137(H) 70 - 106 mg/dL 09/27/2023 10:15 PM BLUNGER MACHINE OPERATOR [facility] Specimen Type Cap Fingerstick 2023 10:15 PM BLUNGER MACHINE OPERATOR [facility] Blood BLOOD SPECIMEN / Unknown 09/27/2023 10:05 PM BLUNGER MACHINE OPERATOR 09/27/2023 10:15 PM BLUNGER MACHINE OPERATOR Praveen Kaufman MD LAB - POINT OF CARE ORDERABLES Performing Organization Address [facility]/ZIP Co de Phone Number [facility] [address] [place] [phone] * (ABNORMAL) GLUCOSE - POINT OF CARE (09/27/2023 4:08 PM BLUNGER MACHINE OPERATOR) Glucose WB/POC 201(H) 70 - 106 mg/dL 09/27/2023 4:14 PM BLUNGER MACHINE OPERATOR [facility] Specimen Type Cap Fingerstick 2023 4:14 PM BLUNGER MACHINE OPERATOR [facility] Blood BLOOD SPECIMEN / Unknown 09/27/2023 4:08 PM BLUNGER MACHINE OPERATOR 09/27/2023 4:14 PM BLUNGER MACHINE OPERATOR Praveen Kaufman MD LAB - POINT OF CARE ORDERABLES Performing Organization Address City/[facility]/ZIP Co de Phone Number [facility] [address] [place] [phone] * (ABNORMAL) GLUCOSE - POINT OF CARE (09/27/2023 12:20 PM BLUNGER MACHINE OPERATOR) Glucose WB/POC 130(H) 70 - 106 mg/dL 09/27/2023 12:26 PM BLUNGER MACHINE OPERATOR [facility] Specimen Type Venous 09/27/2023 12:26 PM BLUNGER MACHINE OPERATOR [facility] Blood BLOOD SPECIMEN / Unknown 09/27/2023 12:20 PM BLUNGER MACHINE OPERATOR 09/27/2023 12:26 PM BLUNGER MACHINE OPERATOR Praveen Kaufman MD LAB - POINT OF CARE ORDERABLES [facility] [address] [place] [address] * CULTURE WOUND+GRAM STAIN (09/27/2023 11:21 AM BLUNGER MACHINE OPERATOR) Culture No growth MONALISA 09/30/2023 3:31 AM BLUNGER MACHINE OPERATOR [facility] Gram Stain Light Polymorphonuclear cells 09/30/2023 3:31 AM BLUNGER MACHINE OPERATOR [facility]CRO[facility] Gram Stain No organisms seen 024 3:31 AM BLUNGER MACHINE OPERATOR [facility]CRO[facility] Microbiology ENTIRE HIP REGION / Unknown Collection / Unknown 09/27/2023 11:21 AM BLUNGER MACHINE OPERATOR 09/27/2023 12:32 PM BLUNGER MACHINE OPERATOR Comment:Pre-op diagnosis: Diagnosis unknown [R69] Narrative [facility] - 09/30/2023 3:31 AM BLUNGER MACHINE OPERATOR Surgical Description: Right Hip Torrey Lafleur MD LAB - MICROBIOLOGY ORDERABLES [facility] [address] [place] [address], [facility] [phone] * CULTURE ANAEROBE (09/27/2023 11:21 AM BLUNGER MACHINE OPERATOR) Culture No anaerobic organisms isolated MONALISA 10/02/2023 1:25 PM BLUNGER MACHINE OPERATOR [facility]CRO[facility] Microbiology ENTIRE HIP REGION / Unknown 09/27/2023 11:21 AM BLUNGER MACHINE OPERATOR 09/27/2023 12:32 PM BLUNGER MACHINE OPERATOR Comment:Pre-op diagnosis: Diagnosis unknown [R69] Narrative [facility] - 10/02/2023 1:25 PM BLUNGER MACHINE OPERATOR Surgical Description: Right Hip Torrey Lafleur MD LAB - MICROBIOLOGY ORDERABLES [facility] [address] [place] [address], [facility] [phone] * (ABNORMAL) GLUCOSE - POINT OF CARE (09/27/2023 7:50 AM BLUNGER MACHINE OPERATOR) Glucose WB/POC 127(H) 70 - 106 mg/dL 09/27/2023 7:56 AM BLUNGER MACHINE OPERATOR [facility] Specimen Type Cap Fingerstick 2023 7:56 AM BLUNGER MACHINE OPERATOR [facility] Blood BLOOD SPECIMEN / Unknown 09/27/2023 7:50 AM BLUNGER MACHINE OPERATOR 09/27/2023 7:56 AM BLUNGER MACHINE OPERATOR Praveen Kaufman MD LAB - POINT OF CARE ORDERABLES Performing Organization Address [facility] Co de Phone Number [facility] [address] [place] [address] [phone] * (ABNORMAL) GLUCOSE - POINT OF CARE (09/26/2023 8:15 PM BLUNGER MACHINE OPERATOR) Glucose WB/POC 128(H) 70 - 106 mg/dL 09/26/2023 8:22 PM BLUNGER MACHINE OPERATOR [facility] Specimen Type Cap Fingerstick 2023 8:22 PM BLUNGER MACHINE OPERATOR [facility] Blood BLOOD SPECIMEN / Unknown 09/26/2023 8:15 PM BLUNGER MACHINE OPERATOR 09/26/2023 8:22 PM BLUNGER MACHINE OPERATOR Praveen Kaufman MD LAB - POINT OF CARE ORDERABLES Performing Organization Address City/[facility] Co de Phone Number [facility] [address] [place] [phone] * (ABNORMAL) GLUCOSE - POINT OF CARE (09/26/2023 4:31 PM BLUNGER MACHINE OPERATOR) Glucose WB/POC 111(H) 70 - 106 mg/dL 09/26/2023 4:41 PM BLUNGER MACHINE OPERATOR [facility] Specimen Type Cap Fingerstick 2023 4:41 PM BLUNGER MACHINE OPERATOR [facility] Blood BLOOD SPECIMEN / Unknown 09/26/2023 4:31 PM BLUNGER MACHINE OPERATOR 09/26/2023 4:41 PM BLUNGER MACHINE OPERATOR Praveen Kaufman MD LAB - POINT OF CARE ORDERABLES Performing Organization Address [facility]/ZIP Co de Phone Number [facility] [address] [place] [phone] * (ABNORMAL) GLUCOSE - POINT OF CARE (09/26/2023 11:40 AM BLUNGER MACHINE OPERATOR) Glucose WB/POC 115(H) 70 - 106 mg/dL 09/26/2023 11:49 AM BLUNGER MACHINE OPERATOR [facility] Specimen Type Cap Fingerstick 2023 11:49 AM BLUNGER MACHINE OPERATOR [facility] Blood BLOOD SPECIMEN / Unknown 09/26/2023 11:40 AM BLUNGER MACHINE OPERATOR 09/26/2023 11:49 AM BLUNGER MACHINE OPERATOR Praveen Kaufman MD LAB - POINT OF CARE ORDERABLES Performing Organization Address [facility] Co de Phone Number [facility] [address] [place] [phone] * (ABNORMAL) VANCOMYCIN LEVEL TROUGH (09/26/2023 11:00 AM BLUNGER MACHINE OPERATOR) Vancomycin Trough 9.8(L) 10.0 - 20.0 ug/mL 09/26/2023 11:58 AM BLUNGER MACHINE OPERATOR [facility] Blood BLOOD SPECIMEN / Unknown Lab Venipuncture / Unknown 09/26/2023 11:00 AM BLUNGER MACHINE OPERATOR 09/26/2023 11:25 AM BLUNGER MACHINE OPERATOR Praveen Kaufman MD LAB - CHEMISTRY BENJA DICK Performing Organization Address [facility] Co de Phone Number [facility] [address] [place] [address] [phone] * (ABNORMAL) GLUCOSE - POINT OF CARE (09/26/2023 7:38 AM BLUNGER MACHINE OPERATOR) Glucose WB/POC 113(H) 70 - 106 mg/dL 09/26/2023 7:57 AM BLUNGER MACHINE OPERATOR [facility] Specimen Type Cap Fingerstick 2023 7:57 AM BLUNGER MACHINE OPERATOR [facility] Blood BLOOD SPECIMEN / Unknown 09/26/2023 7:38 AM BLUNGER MACHINE OPERATOR 09/26/2023 7:57 AM BLUNGER MACHINE OPERATOR Praveen Kaufman MD LAB - POINT OF CARE ORDERABLES Performing Organization Address [facility]/ZIP Co de Phone Number [facility] [address] [place] [address] [phone] * (ABNORMAL) VANCOMYCIN LEVEL PEAK (09/26/2023 4:55 AM BLUNGER MACHINE OPERATOR) Pathologist [facility] Vancomycin Peak 18.3(L) 25.0 - 40.0 ug/mL 09/26/2023 5:37 AM BLUNGER MACHINE OPERATOR [facility] Blood BLOOD SPECIMEN / Unknown Lab Venipuncture / Unknown 09/26/2023 4:55 AM BLUNGER MACHINE OPERATOR 09/26/2023 5:18 AM BLUNGER MACHINE OPERATOR Praveen Kaufman MD LAB - CHEMISTRY ORDE RABLES Performing Organization Address [facility] Co de Phone Number [facility] [address] [place] [phone] * (ABNORMAL) GLUCOSE - POINT OF CARE (09/25/2023 9:55 PM BLUNGER MACHINE OPERATOR) Glucose WB/POC 170(H) 70 - 106 mg/dL 09/26/2023 4:55 AM BLUNGER MACHINE OPERATOR [facility] Specimen Type Cap Fingerstick 2023 4:55 AM BLUNGER MACHINE OPERATOR [facility] Blood BLOOD SPECIMEN / Unknown 09/25/2023 9:55 PM BLUNGER MACHINE OPERATOR 09/26/2023 4:55 AM BLUNGER MACHINE OPERATOR Praveen Kaufman MD LAB - POINT OF CARE ORDERABLES Performing Organization Address [facility]/ZIP Co de Phone Number [facility] [address] [place] [address] [phone] * (ABNORMAL) GLUCOSE - POINT OF CARE (09/25/2023 4:17 PM BLUNGER MACHINE OPERATOR) Glucose WB/POC 148(H) 70 - 106 mg/dL 09/25/2023 4:43 PM BLUNGER MACHINE OPERATOR [facility] Specimen Type Cap Fingerstick 2023 4:43 PM BLUNGER MACHINE OPERATOR [facility] Blood BLOOD SPECIMEN / Unknown 09/25/2023 4:17 PM BLUNGER MACHINE OPERATOR 09/25/2023 4:43 PM BLUNGER MACHINE OPERATOR Praveen Kaufman MD LAB - POINT OF CARE ORDERABLES Performing Organization Address [facility]/ZIP Co de Phone Number [facility] [address] [place] [phone] * (ABNORMAL) GLUCOSE - POINT OF CARE (09/25/2023 12:00 PM BLUNGER MACHINE OPERATOR) Glucose WB/POC 208(H) 70 - 106 mg/dL 09/25/2023 4:14 PM BLUNGER MACHINE OPERATOR [facility] Specimen Type Cap Fingerstick 2023 4:14 PM BLUNGER MACHINE OPERATOR [facility] Blood BLOOD SPECIMEN / Unknown 09/25/2023 12:00 PM BLUNGER MACHINE OPERATOR 09/25/2023 4:14 PM BLUNGER MACHINE OPERATOR Praveen Kaufman MD LAB - POINT OF CARE ORDERABLES Performing Organization Address [facility] Co de Phone Number [facility] [address] [place] [phone] * CULTURE BLOOD (09/25/2023 10:45 AM BLUNGER MACHINE OPERATOR) Culture No growth day 5 MONALISA 09/30/2023 2:01 PM BLUNGER MACHINE OPERATOR [facility] Blood PERIPHERAL BLOOD / Unknown Lab Venipuncture / Unknown 09/25/2023 10:45 AM BLUNGER MACHINE OPERATOR 09/25/2023 11:04 AM BLUNGER MACHINE OPERATOR Ashish Barnett MD LAB - MICROB IOLOGY ORDERABLES Performing Organization Address City/[facility]/ZIP Co de Phone Number [facility] [address] [place] [address], [facility] [phone] * CULTURE BLOOD (09/25/2023 10:41 AM BLUNGER MACHINE OPERATOR) Pathologist [facility] Culture No growth day 5 MONALISA 09/30/2023 2:01 PM BLUNGER MACHINE OPERATOR [facility] Blood PERIPHERAL BLOOD / Unknown Lab Venipuncture / Unknown 09/25/2023 10:41 AM BLUNGER MACHINE OPERATOR 09/25/2023 11:05 AM BLUNGER MACHINE OPERATOR Ashish Barnett MD LAB - MICROB IOLOGY ORDERABLES [facility] [address] [place] [address], [facility] [phone] * (ABNORMAL) GLUCOSE - POINT OF CARE (09/25/2023 7:50 AM BLUNGER MACHINE OPERATOR) [facility] Glucose WB/POC 153(H) 70 - 106 mg/dL 09/25/2023 8:00 AM BLUNGER MACHINE OPERATOR [facility] Specimen Type Cap Fingerstick 2023 8:00 AM BLUNGER MACHINE OPERATOR [facility] Blood BLOOD SPECIMEN / Unknown 09/25/2023 7:50 AM BLUNGER MACHINE OPERATOR 09/25/2023 8:00 AM BLUNGER MACHINE OPERATOR Praveen Kaufman MD LAB - POINT OF CARE ORDERABLES Performing Organization Address City/[facility]/ZIP Co de Phone Number [facility] [address] [place] [address] * (ABNORMAL) CBC W/O DIFFERENTIAL (09/25/2023 1:41 AM BLUNGER MACHINE OPERATOR) Pathologist [facility] WBC 9.9 4.0 - 10.7 x10E9/L 09/25/2023 2:46 AM BLUNGER MACHINE OPERATOR [facility] RBC Count 3.49(L) 4.30 - 5.80 x10E12/L 09/25/2023 2:46 AM BLUNGER MACHINE OPERATOR [facility] Hemoglobin 10.8(L) 13.3 - 17.5 g/dL 09/25/2023 2:46 AM BLUNGER MACHINE OPERATOR [facility] Hematocrit 33.6(L) 38.7 - 51.1 % 09/25/2023 2:46 AM BLUNGER MACHINE OPERATOR [facility] MCV 96.3 80.0 - 98.0 fL 09/25/2023 2:46 AM [facility] MCH 30.9 26.7 - 33.6 pg 09/25/2023 2:46 AM [facility] MCHC 32.1 31.7 - 36.3 g/dL 09/25/2023 2:46 AM [facility] RDW-CV 13.6 11.3 - 14.8 % 09/25/2023 2:46 AM [facility] Platelet Count 165 150 - 420 x10E9/L 09/25/2023 2:46 AM [facility] MPV 9.4 7.8 - 11.4 fL 09/25/2023 2:46 AM [facility] Blood BLOOD SPECIMEN / Unknown Lab Venipuncture / Unknown 09/25/2023 1:41 AM [facility] 09/25/2023 2:25 AM [facility] Asaph Githunguri GEOSPATIAL TECHNOLOGIST-RAIL SIGNAL WORKER LAB - HEMATOLO GY ORDERABLES Performing Organization Address City/[facility] Co de Phone Number [facility] [address] [place] [address] * (ABNORMAL) BASIC METABOLIC PANEL (CALCIUM TOTAL) (09/25/2023 1:41 AM [facility]) Glucose 182(H) 70 - 105 mg/dL 09/25/2023 3:12 AM [facility] Sodium 138 136 - 145 mmol/L 09/25/2023 3:12 AM [facility] Potassium 4.0 3.5 - 5.1 mmol/L 09/25/2023 3:12 AM [facility] Chloride 106 98 - 107 mmol/L 09/25/2023 3:12 AM [facility] CO2 22 22 - 29 mmol/L 09/25/2023 3:12 AM [facility] Calcium 8.6 8.4 - 10.4 mg/dL 09/25/2023 3:12 AM [facility] Anion Gap 10 6 - 16 mmol/L 09/25/2023 3:12 AM [facility] BUN 14 7 - 26 mg/dL 09/25/2023 3:12 AM [facility] Creatinine 0.88 0.72 - 1.25 mg/dL 09/25/2023 3:12 AM [facility] eGFR by CKD-EPI >90 >=90 mL/min/1.7 3 m2 09/25/2023 3:12 AM [facility] Blood BLOOD SPECIMEN / Unknown Lab Venipuncture / Unknown 09/25/2023 1:41 AM BLUNGER MACHINE OPERATOR 09/25/2023 2:25 AM BLUNGER MACHINE OPERATOR Asaph Jaqueline GEOSPATIAL TECHNOLOGIST-RAIL SIGNAL WORKER LAB - CHEMISTR Y ORDERABLES Performing Organization Address City/State/[facility] Co de Phone Number [facility] [address] [place] [address] * (ABNORMAL) HEMOGLOBIN A1C (09/25/2023 1:41 AM BLUNGER MACHINE OPERATOR) Hemoglobin A1c 6.4(H) <5.7 % 09/25/2023 3:16 AM [facility] Estimated Average Glucose 137 mg/dL 09/25/2023 3:16 AM [facility] Blood BLOOD SPECIMEN / Unknown Lab Venipuncture / Unknown 09/25/2023 1:41 AM BLUNGER MACHINE OPERATOR 09/25/2023 2:25 AM BLUNGER MACHINE OPERATOR Narrative [facility] - 09/25/2023 3:16 AM BLUNGER MACHINE OPERATOR HbA1c Interpretation: Normal: < 5.7% Pre-diabetes: 5.7-6.4% [...] - CHEMISTR Y ORDERABLES Performing Organization Address [facility]/ZIP Co de Phone Number [facility] [address] [place] [address] [phone] * (ABNORMAL) GLUCOSE - POINT OF CARE (09/24/2023 10:51 PM BLUNGER MACHINE OPERATOR) Glucose WB/POC 135(H) 70 - 106 mg/dL 09/24/2023 10:59 PM BLUNGER MACHINE OPERATOR [facility] Specimen Type Cap Fingerstick 2023 10:59 PM BLUNGER MACHINE OPERATOR [facility] Blood BLOOD SPECIMEN / Unknown 09/24/2023 10:51 PM BLUNGER MACHINE OPERATOR 09/24/2023 10:59 PM BLUNGER MACHINE OPERATOR Bryant Jones MD LAB - POINT OF CARE ORDERABLES Performing Organization Address [facility] Co de Phone Number [facility] [address] [place] [address] [phone] * (ABNORMAL) GLUCOSE - POINT OF CARE (09/24/2023 9:50 PM BLUNGER MACHINE OPERATOR) Glucose WB/POC 140(H) 70 - 106 mg/dL 09/26/2023 10:03 AM BLUNGER MACHINE OPERATOR [facility] Specimen Type Cap Fingerstick 2023 10:03 AM BLUNGER MACHINE OPERATOR [facility] Blood BLOOD SPECIMEN / Unknown 09/24/2023 9:50 PM BLUNGER MACHINE OPERATOR 09/26/2023 10:03 AM BLUNGER MACHINE OPERATOR Bryant Jones MD LAB - POINT OF CARE ORDERABLES Performing Organization Address [facility] Co de Phone Number [facility] [address] [place] [address] [phone] * CULTURE FUNGUS OTHER+FUNGUS SMEAR (09/24/2023 9:01 PM BLUNGER MACHINE OPERATOR) Culture No fungus isolated MONALISA 10/22/2023 6:59 AM [facility] Fungus Stain No yeast or hyphae seen 10/22/2023 6:59 AM CDT [facility] Microbiology TISSUE SPECIMEN / Unknown Collection / Unknown 09/24/2023 9:01 PM BLUNGER MACHINE OPERATOR 09/24/2023 10:11 PM BLUNGER MACHINE OPERATOR Comment:Pre-op diagnosis: Diagnosis unknown [R69] Narrative [facility] - 10/22/2023 6:59 AM CDT Surgical Description: Right Hip Tissue Torrey Lafleur MD LAB - MICROBIOLOGY ORDERABLES Performing Organization Address City/[facility] Co de Phone Number [facility] [address] [place] [address], [facility] [phone] * (ABNORMAL) CULTURE TISSUE+GRAM STAIN (09/24/2023 9:01 PM BLUNGER MACHINE OPERATOR) Culture Rare Streptococcus agalactiae (Group B)(AA) MONALISA 09/28/2023 7:22 AM BLUNGER MACHINE OPERATOR [facility] Gram Stain Rare Polymorphonuclear cells 09/28/2023 7:22 AM BLUNGER MACHINE OPERATOR [facility] Gram Stain No organisms seen 024 7:22 AM BLUNGER MACHINE OPERATOR [facility] Microbiology TISSUE SPECIMEN / Unknown Collection / Unknown 09/24/2023 9:01 PM BLUNGER MACHINE OPERATOR 09/24/2023 10:11 PM BLUNGER MACHINE OPERATOR Comment:Pre-op diagnosis: Diagnosis unknown [R69] Narrative [facility] - 09/28/2023 7:22 AM BLUNGER MACHINE OPERATOR Susceptibility testing of penicillin, other beta-lactam antibiotics, and vancomycin is not necessary for beta-hemolytic streptococci groups A,B,C and G because resistant strains have not been recognized. Refer to previously reported susceptibility testing, specimen number: [id number]. Surgical Description: Right Hip Tissue Torrey Lafleur MD LAB - MICROBIOLOGY ORDERABLES Performing Organization Address City/[facility] Co de Phone Number [facility] [address] [place] [address], [facility] [phone] * CULTURE AFB+SMEAR (09/24/2023 9:01 PM BLUNGER MACHINE OPERATOR) Culture No acid-fast bacillus isolated 11/05/2023 6:39 AM CDT [facility] AFB Smear No acid-fast bacilli seen 11/05/2023 6:39 AM CDT [facility] Microbiology TISSUE SPECIMEN / Unknown Collection / Unknown 09/24/2023 9:01 PM BLUNGER MACHINE OPERATOR 09/24/2023 10:11 PM BLUNGER MACHINE OPERATOR Comment:Pre-op diagnosis: Diagnosis unknown [R69] Narrative [facility] - 11/05/2023 6:39 AM CDT Surgical Description: Right Hip Tissue Torrey Lafleur MD LAB - MICROBIOLOGY ORDERABLES Performing Organization Address City/[facility]/ZIP Co de Phone Number [facility] [address] [place] [address], [facility] [phone] * CULTURE ANAEROBE (09/24/2023 9:01 PM BLUNGER MACHINE OPERATOR) Culture No anaerobic organisms isolated to date. MONALISA 09/30/2023 2:53 PM BLUNGER MACHINE OPERATOR [facility] Microbiology TISSUE SPECIMEN / Unknown Collection / Unknown 09/24/2023 9:01 PM BLUNGER MACHINE OPERATOR 09/24/2023 10:11 PM BLUNGER MACHINE OPERATOR Comment:Pre-op diagnosis: Diagnosis unknown [R69] Narrative [facility] - 09/30/2023 2:53 PM BLUNGER MACHINE OPERATOR Surgical Description: Right Hip Tissue Torrey Lafleur MD LAB - MICROBIOLOGY ORDERABLES Performing Organization Address [facility] Co de Phone Number [facility] [address] [place] [address], [facility] [phone] * CULTURE FUNGUS OTHER+FUNGUS SMEAR (09/24/2023 8:58 PM BLUNGER MACHINE OPERATOR) Culture No fungus isolated MONALISA 10/22/2023 6:59 AM CDT [facility] Fungus Stain No yeast or hyphae seen 10/22/2023 6:59 AM CDT [facility] Microbiology ENTIRE HIP REGION / Unknown 09/24/2023 8:58 PM BLUNGER MACHINE OPERATOR 09/24/2023 10:17 PM BLUNGER MACHINE OPERATOR Comment:Pre-op diagnosis: Diagnosis unknown [R69] Narrative [facility] - 10/22/2023 6:59 AM CDT Surgical Description: Right Hip Swab Torrey Lafleur MD LAB - MICROBIOLOGY ORDERABLES [facility] [address] [place] [address], [facility] [phone] * (ABNORMAL) CULTURE TISSUE+GRAM STAIN (09/24/2023 8:58 PM BLUNGER MACHINE OPERATOR) Culture Light Streptococcus agalactiae (Group B)(AA) MONALISA 09/28/2023 4:40 AM BLUNGER MACHINE OPERATOR [facility] Gram Stain Heavy Red blood cells 09/28/2023 4:40 AM BLUNGER MACHINE OPERATOR [facility] Gram Stain Moderate Polymorphonuclear cells 09/28/2023 4:40 AM BLUNGER MACHINE OPERATOR [facility] Gram Stain No organisms seen 024 4:40 AM BLUNGER MACHINE OPERATOR [facility] Microbiology ENTIRE HIP REGION / Unknown 09/24/2023 8:58 PM BLUNGER MACHINE OPERATOR 09/24/2023 10:17 PM BLUNGER MACHINE OPERATOR Comment:Pre-op diagnosis: Diagnosis unknown [R69] Narrative [facility] - 09/28/2023 4:40 AM BLUNGER MACHINE OPERATOR Susceptibility testing of penicillin, other beta-lactam antibiotics, [...] Torrey Lafleur MD LAB - MICROBIOLOGY ORDERABLES [facility] [address] [place] [id number], [facility] [phone] * CULTURE AFB+SMEAR (09/24/2023 8:58 PM BLUNGER MACHINE OPERATOR) Culture No acid-fast bacillus isolated 11/05/2023 6:39 AM CDT [facility] AFB Smear No acid-fast bacilli seen 11/05/2023 6:39 AM CDT [facility] Microbiology ENTIRE HIP REGION / Unknown 09/24/2023 8:58 PM BLUNGER MACHINE OPERATOR 09/24/2023 10:17 PM BLUNGER MACHINE OPERATOR Comment:Pre-op diagnosis: Diagnosis unknown [R69] Narrative [facility] - 11/05/2023 6:39 AM CDT Surgical Description: Right Hip Swab Torery Lafleur MD LAB - MICROBIOLOGY ORDERABLES Performing Organization Address City/[facility] Co de Phone Number [facility] [address] [place] [address], [facility] [phone] * CULTURE ANAEROBE (09/24/2023 8:58 PM BLUNGER MACHINE OPERATOR) Culture No anaerobic organisms isolated to date. MONALISA 09/30/2023 2:53 PM BLUNGER MACHINE OPERATOR [facility] Microbiology ENTIRE HIP REGION / Unknown 09/24/2023 8:58 PM BLUNGER MACHINE OPERATOR 09/24/2023 10:17 PM BLUNGER MACHINE OPERATOR Comment:Pre-op diagnosis: Diagnosis unknown [R69] Narrative [facility] - 09/30/2023 2:53 PM BLUNGER MACHINE OPERATOR Surgical Description: Right Hip Swab Torrey Lafleur MD LAB - MICROBIOLOGY ORDERABLES [facility] [address] [place] [address], [facility] [phone] * FL GUIDED NEEDLE PLACEMENT (09/24/2023 8:45 PM BLUNGER MACHINE OPERATOR) Narrative [facility] - 09/25/2023 3:44 PM BLUNGER MACHINE OPERATOR See Notes. Drew Lerma DO FLUOROSCOPY ORD ERABLES [facility] [address] [place] [address] * PATHOLOGY SMEAR BODY FLUID (09/24/2023 8:28 PM BLUNGER MACHINE OPERATOR) Path Review Fluid Confirmed 09/25/2023 2:14 PM BLUNGER MACHINE OPERATOR [facility] Fluid SYNOVIAL FLUID / Unknown Collection / Unknown 09/24/2023 8:28 PM BLUNGER MACHINE OPERATOR 09/24/2023 10:10 PM BLUNGER MACHINE OPERATOR Narrative [facility] - 09/25/2023 2:14 PM BLUNGER MACHINE OPERATOR Final Diagnosis- Synovial fluid, right hip, aspiration time of arthroplasty: 1. 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 Test Performed By: Torrey Vargas MD 09/25/2023 ??2:06 PM Torrey Lafleur MD LAB - PATHOLOGY/CYT OLOGY ORDERABLES Performing Organization Address [facility] Co de Phone Number [facility] [address] [place] [address] * DIFFERENTIAL MANUAL FLUID (09/24/2023 8:28 PM BLUNGER MACHINE OPERATOR) Fluid Source Synovial 09/25/2023 2:14 PM BLUNGER MACHINE OPERATOR [facility] Body Fluid Total Cell Count 100 x10E6/L 09/25/2023 2:14 PM BLUNGER MACHINE OPERATOR [facility] Neutrophils Fluid Percent 81 % 09/25/2023 2:14 PM BLUNGER MACHINE OPERATOR [facility] Lymphocytes Fluid Percent 17 % 09/25/2023 2:14 PM BLUNGER MACHINE OPERATOR [facility] Macrophages Fluid Percent 2 % 09/25/2023 2:14 PM BLUNGER MACHINE OPERATOR [facility] Fluid SYNOVIAL FLUID / Unknown Collection / Unknown 09/24/2023 8:28 PM BLUNGER MACHINE OPERATOR 09/24/2023 10:10 PM BLUNGER MACHINE OPERATOR Narrative [facility] - 09/25/2023 2:14 PM BLUNGER MACHINE OPERATOR No reference ranges established for body fluid differential cell counts. ??The test results must be integrated into the clinical context for interpretation. Torrey Lafleur MD LAB - BODY FLUID OR DERABLES Performing Organization Address [facility] Co de Phone Number [facility] [address] [place] [phone] * CRYSTAL IDENTIFICATION FLUID (09/24/2023 8:28 PM BLUNGER MACHINE OPERATOR) Fluid Type Synovial 09/24/2023 11:04 PM BLUNGER MACHINE OPERATOR [facility] Crystals Fluid None None 09/24/2023 11:04 PM BLUNGER MACHINE OPERATOR [facility] Fluid SYNOVIAL FLUID / Unknown Collection / Unknown 09/24/2023 8:28 PM BLUNGER MACHINE OPERATOR 09/24/2023 10:10 PM BLUNGER MACHINE OPERATOR Comment:Pre-op diagnosis: Diagnosis unknown [R69] Torrey Lafleur MD LAB - BODY FLUID OR DERABLES Performing Organization Address [facility] Co de Phone Number [facility] [address] [place] [address] * (ABNORMAL) CELL COUNT W DIFFERENTIAL FLUID (09/24/2023 8:28 PM BLUNGER MACHINE OPERATOR) Fluid Source Synovial 09/25/2023 1:47 AM BLUNGER MACHINE OPERATOR [facility] Fluid Appearance TURBID 09/25/2023 1:47 AM BLUNGER MACHINE OPERATOR [facility] Fluid Color OTHER 09/25/2023 1:47 AM BLUNGER MACHINE OPERATOR [facility] Total Nucleated Cells Fluid 98,920(H) <=200 x10E6/L 09/25/2023 1:47 AM BLUNGER MACHINE OPERATOR [facility] RBC Count Fluid 40,000 Reference Range Not Established x10E6/L 09/25/2023 1:47 AM BLUNGER MACHINE OPERATOR [facility] Fluid SYNOVIAL FLUID / Unknown Collection / Unknown 09/24/2023 8:28 PM BLUNGER MACHINE OPERATOR 09/24/2023 10:10 PM BLUNGER MACHINE OPERATOR Comment:Pre-op diagnosis: Diagnosis unknown [R69] Narrative [facility] - 09/25/2023 1:47 AM BLUNGER MACHINE OPERATOR No reference ranges established for body fluid cell counts. Any reference ranges provided are derived from published literature. The test results must be integrated into the clinical context for interpretation. Torrey Lafleur MD LAB - BODY FLUID OR DERABLES Performing Organization Address [facility] Co de Phone Number [facility] [address] [place] [address] [phone] * CULTURE FUNGUS OTHER+FUNGUS SMEAR (09/24/2023 8:27 PM BLUNGER MACHINE OPERATOR) Culture No fungus isolated MONALISA 10/22/2023 6:59 AM CDT [facility] Fungus Stain No yeast or hyphae seen 10/22/2023 6:59 AM CDT [facility] Microbiology SYNOVIAL FLUID / Unknown Collection / Unknown 09/24/2023 8:27 PM BLUNGER MACHINE OPERATOR 09/24/2023 10:12 PM BLUNGER MACHINE OPERATOR Comment:Pre-op diagnosis: Diagnosis unknown [R69] Torrey Lafleur MD LAB - MICROBIOLOGY ORDERABLES Performing Organization Address City/[facility]/ZIP Co de Phone Number [facility] [address] [place] [address], [facility] [phone] * (ABNORMAL) CULTURE FLUID+GRAM STAIN (09/24/2023 8:27 PM BLUNGER MACHINE OPERATOR) Culture Rare Streptococcus agalactiae (Group B)(AA) MONALISA 09/28/2023 7:20 AM BLUNGER MACHINE OPERATOR [facility] Gram Stain Heavy Polymorphonuclear cells 09/28/2023 7:20 AM BLUNGER MACHINE OPERATOR [facility] Gram Stain No organisms seen 024 7:20 AM BLUNGER MACHINE OPERATOR [facility] Microbiology SYNOVIAL FLUID / Unknown Collection / Unknown 09/24/2023 8:27 PM BLUNGER MACHINE OPERATOR 09/24/2023 10:12 PM BLUNGER MACHINE OPERATOR Comment:Pre-op diagnosis: Diagnosis unknown [R69] Narrative [facility] - 09/28/2023 7:20 AM BLUNGER MACHINE OPERATOR Susceptibility testing of penicillin, other beta-lactam antibiotics, and vancomycin is not necessary for beta-hemolytic streptococci groups A,B,C and G because resistant strains have not been recognized. Refer to previously reported susceptibility testing, specimen number: [id number]. Torrey Lafleur MD LAB - MICROBIOLOGY ORDERABLES Performing Organization Address City/[facility]/ZIP Co de Phone Number [facility] [address] [place] [address], [facility] [phone] * CULTURE AFB+SMEAR (09/24/2023 8:27 PM BLUNGER MACHINE OPERATOR) Culture No acid-fast bacillus isolated 11/05/2023 6:39 AM CDT [facility] AFB Smear No acid-fast bacilli seen 11/05/2023 6:39 AM CDT [facility] Microbiology SYNOVIAL FLUID / Unknown Collection / Unknown 09/24/2023 8:27 PM BLUNGER MACHINE OPERATOR 09/24/2023 10:12 PM BLUNGER MACHINE OPERATOR Comment:Pre-op diagnosis: Diagnosis unknown [R69] Torrey Lafleur MD LAB - MICROBIOLOGY ORDERABLES Performing Organization Address City/[facility]/ZIP Co de Phone Number [facility] [address] [place] [address], [facility] [phone] * CULTURE ANAEROBE (09/24/2023 8:27 PM BLUNGER MACHINE OPERATOR) Pathologist [facility] Culture No anaerobic organisms isolated to date. MONALISA 09/30/2023 2:53 PM BLUNGER MACHINE OPERATOR [facility] Microbiology SYNOVIAL FLUID / Unknown Collection / Unknown 09/24/2023 8:27 PM BLUNGER MACHINE OPERATOR 09/24/2023 10:12 PM BLUNGER MACHINE OPERATOR Comment:Pre-op diagnosis: Diagnosis unknown [R69] Torrey Lafleur MD LAB - MICROBIOLOGY ORDERABLES Performing Organization Address [facility] Co de Phone Number [facility] [address] [place] [address], [facility] [phone] * (ABNORMAL) GLUCOSE - POINT OF CARE (09/24/2023 6:06 PM BLUNGER MACHINE OPERATOR) Glucose WB/POC 118(H) 70 - 106 mg/dL 09/24/2023 8:10 PM BLUNGER MACHINE OPERATOR [facility] Specimen Type Cap Fingerstick 2023 8:10 PM BLUNGER MACHINE OPERATOR [facility] Blood BLOOD SPECIMEN / Unknown 09/24/2023 6:06 PM BLUNGER MACHINE OPERATOR 09/24/2023 8:10 PM BLUNGER MACHINE OPERATOR Bryant Jones MD LAB - POINT OF CARE ORDERABLES Performing Organization Address City/[facility]/ZIP Co de Phone Number [facility] [address] [place] [address] * CT LOWER EXT RIGHT W CONTRAST (09/24/2023 2:41 PM BLUNGER MACHINE OPERATOR) Anatomical Region Laterality Modality Lower Extremity Computed Tomogra phy 09/24/2023 2:53 PM BLUNGER MACHINE OPERATOR Impressions 09/24/2023 2:57 PM BLUNGER MACHINE OPERATOR IMPRESSION: Fluid or soft tissue thickening lateral to the right greater trochanter without rim-enhancing fluid collection. > Interpreting Provider: Leelee rKamer MD on 09/24/2023 2:57 PM Narrative 09/24/2023 2:57 PM BLUNGER MACHINE OPERATOR PROCEDURE: ??CT LOWER EXT RIGHT W CONTRAST [...] RIGHT VENOUS DUPLEX LE (09/24/2023 1:37 PM BLUNGER MACHINE OPERATOR) Anatomical Region Laterality Modality Lower Extremity Ultrasound 09/24/2023 3:44 PM BLUNGER MACHINE OPERATOR Narrative Procedure Note Antonio Gillette MD - 09/24/2023 [place] [id number] Lower Extremity Venous Ultrasound Report Pat.Name: MATY TAYLOR Mychal Pat.ID: [id number] .Date: 09/24/2023 Refer.MD: Drew Lerma Exam Time: 3:44:00 PM Study Type:LE Venous Age: 9 1965,58Y Sex: MALE Sonogrphr: Cheryl Gaines RVT Pat. Stat.:Inpatient ICD - 9: M25.551 Reason for Study: Pain -Leg, right Procedures: Lower Extremity Venous - Right Race: 1 Visit ID: [id number] ++++++++++++++++++++++++++++++++++++ SUMMARY: ++++++++++++++++++++++++++++++++++++ Technically difficult study. No [...] TRAUMA 2 VW RIGHT (09/24/2023 11:23 AM BLUNGER MACHINE OPERATOR) Anatomical Region Laterality Modality Lower Extremity Radiographic Sabi ging 09/24/2023 11:3 1 AM BLUNGER MACHINE OPERATOR Narrative 09/24/2023 11:31 AM BLUNGER MACHINE OPERATOR PROCEDURE: ??XR FEMUR RIGHT 2VW, DATE/TIME OF EXAM: ??09/24/2023 11:24 AM, LOCATION ??[facility] INDICATION: M25.551: Pain in right hip [...] DATE/TIME OF EXAM: 09/24/2023 11:24 AM, LOCATION [facility] INDICATION: M25.551: Pain in right hip [...] PELVIS 1 OR 2VW (09/24/2023 11:23 AM BLUNGER MACHINE OPERATOR) Anatomical Region Laterality Modality Pelvis Radiographic Sabi ging 09/24/2023 11:3 0 AM BLUNGER MACHINE OPERATOR Narrative 09/24/2023 11:31 AM BLUNGER MACHINE OPERATOR PROCEDURE: ??XR PELVIS 1 OR 2VW, DATE/TIME OF EXAM: ??09/24/2023 11:23 AM, LOCATION ??[facility] INDICATION: M25.551: Pain in right hip [...] DATE/TIME OF EXAM: 09/24/2023 11:23 AM, LOCATION [facility] INDICATION: M25.551: Pain in right hip [...] * (ABNORMAL) C-REACTIVE PROTEIN (09/24/2023 10:58 AM BLUNGER MACHINE OPERATOR) C-Reactive Protein 5.64(H) <=0.50 mg/dL 09/24/2023 12:23 PM BLUNGER MACHINE OPERATOR [facility] Blood BLOOD SPECIMEN / Unknown Venipuncture / Unknown 09/24/2023 10:58 AM BLUNGER MACHINE OPERATOR 09/24/2023 10:58 AM BLUNGER MACHINE OPERATOR [facility] - CHEMISTRY ORDERABLES Performing Organization Address City/[facility]/ZIP Co de Phone Number [facility] [address] [place] [phone] * (ABNORMAL) ERYTHROCYTE SEDIMENTATION RATE (09/24/2023 10:58 AM BLUNGER MACHINE OPERATOR) Pathologist [facility] Erythrocyte Sedimentation Rate Automated 50(H) 0 - 20 MM/HR 09/24/2023 12:38 PM BLUNGER MACHINE OPERATOR [facility] Blood BLOOD SPECIMEN / Unknown Venipuncture / Unknown 09/24/2023 10:58 AM BLUNGER MACHINE OPERATOR 09/24/2023 10:58 AM BLUNGER MACHINE OPERATOR [facility] LAB - HEMATOLOG Y ORDERABLES Performing Organization Address City/[facility] Co de Phone Number [facility] [address] [place] [address] [phone] * (ABNORMAL) DIFFERENTIAL MANUAL (09/24/2023 10:58 AM BLUNGER MACHINE OPERATOR) Pathologist [facility] Neutrophil % 82(H) 41 - 74 % 09/24/2023 11:46 AM BLUNGER MACHINE OPERATOR [facility] Lymphocyte % 7(L) 17 - 47 % 09/24/2023 11:46 AM BLUNGER MACHINE OPERATOR [facility] Monocyte % 11 3 - 11 % 09/24/2023 11:46 AM [facility] Neutrophil Absolute 9.68(H) 1.60 - 7.50 x10E9/L 09/24/2023 11:46 AM [facility] Lymphocyte Absolute 0.83(L) 1.00 - 4.40 x10E9/L 09/24/2023 11:46 AM [facility] Monocyte Absolute 1.30(H) 0.15 - 1.00 x10E9/L 09/24/2023 11:46 AM [facility] RBC Morphology NORMAL 09/24/2023 11:46 AM [facility] Blood BLOOD SPECIMEN / Unknown Venipuncture / Unknown 09/24/2023 10:58 AM 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 Glucose 178(H) 70 - 105 mg/dL 09/24/2023 11:13 AM [facility] Sodium 137 136 - 145 mmol/L 09/24/2023 11:13 AM [facility] Potassium 4.2 3.5 - 5.1 mmol/L 09/24/2023 11:13 AM [facility] Chloride 105 98 - 107 mmol/L 09/24/2023 11:13 AM [facility] CO2 23 22 - 29 mmol/L 09/24/2023 11:13 AM [facility] Calcium 9.4 8.4 - 10.4 mg/dL 09/24/2023 11:13 AM [facility] Anion Gap 9 6 - 16 mmol/L 09/24/2023 11:13 AM [facility] BUN 14 7 - 26 mg/dL 09/24/2023 11:13 AM [facility] Creatinine 0.90 0.72 - 1.25 mg/dL 09/24/2023 11:13 AM [facility] eGFR by CKD-EPI >90 >=90 mL/min/1.7 3 m2 09/24/2023 11:13 AM [facility] Blood BLOOD SPECIMEN / Unknown Venipuncture / Unknown 09/24/2023 10:58 AM BLUNGER MACHINE OPERATOR 09/24/2023 10:58 AM [facility] Drew Lerma DO LAB - CHEMISTRY ORDERABLES Performing Organization Address [facility]/ZIP Co de Phone Number [facility] [address] [place] [address] * (ABNORMAL) CBC W AUTO DIFFERENTIAL (09/24/2023 10:58 AM BLUNGER MACHINE OPERATOR) WBC 11.8(H) 4.0 - 10.7 x10E9/L 09/24/2023 11:47 AM [facility] RBC Count 4.15(L) 4.30 - 5.80 x10E12/L 09/24/2023 11:47 AM [facility] Hemoglobin 12.6(L) 13.3 - 17.5 g/dL 09/24/2023 11:47 AM [facility] Hematocrit 38.9 38.7 - 51.1 % 09/24/2023 11:47 AM [facility] MCV 93.7 80.0 - 98.0 fL 09/24/2023 11:47 AM [facility] MCH 30.4 26.7 - 33.6 pg 09/24/2023 11:47 AM [facility] MCHC 32.4 31.7 - 36.3 g/dL 09/24/2023 11:47 AM [facility] RDW-CV 13.2 11.3 - 14.8 % 09/24/2023 11:47 AM [facility] Platelet Count 194 150 - 420 x10E9/L 09/24/2023 11:47 AM [facility] MPV 9.1 7.8 - 11.4 fL 09/24/2023 11:47 AM [facility] Blood BLOOD SPECIMEN / Unknown Venipuncture / Unknown 09/24/2023 10:58 AM BLUNGER MACHINE OPERATOR 09/24/2023 10:58 AM [facility] Kip ALFREDO LAB - HEMATOLOGY OR DERABLES Performing Organization Address City/State/[facility] Co de Phone Number [facility] [address] [place] [address] documented in this encounter Visit Diagnoses Diagnosis [...] verify patency. $ Given 09/29/2023 6:13 PM BLUNGER MACHINE OPERATOR 10 mL 0.9% NaCl injection 1-10 mL 1-10 mL, Intracatheter, PRN, Other, peripheral line flush, Starting on Sun09/24/23 at 1625, Until Sun10/04/23 at 1244, Flush peripheral IV catheter with 1-10 mL of normal saline before and after medications and prn to clear blood from the line or to verify patency. $ Given 09/24/2023 7:38 PM BLUNGER MACHINE OPERATOR 10 mL 0.9% NaCl injection 10-40 mL 10-40 mL, Intracatheter, EVERY 8 HOURS, First dose on Sun10/03/23 at 1545, Until Discontinued, Flush each lumen of PICC with 10ml NS IVP every 8 hours (regardless of continuous IV infusion). Flushing may be contraindicated if concentrated drips are infusing. $ Given 10/04/2023 3:51 AM BLUNGER MACHINE OPERATOR 10 mL 0.9% NaCl injection 10-40 mL [...] 8 hours. $ Given 10/01/2023 7:50 AM BLUNGER MACHINE OPERATOR 3 mL $ Given 09/30/2023 11:23 PM BLUNGER MACHINE OPERATOR 3 mL $ Given 09/30/2023 12:06 PM BLUNGER MACHINE OPERATOR 3 mL 0.9% NaCl injection 3 mL 3 mL, Intracatheter, EVERY 8 HOURS, First dose on Sun09/24/23 at 1700, Until Discontinued, Flush peripheral IV catheter with 3 mL of normal saline every 8 hours. $ Given 10/03/2023 8:08 PM BLUNGER MACHINE OPERATOR 3 mL $ Given 10/03/2023 12:06 PM BLUNGER MACHINE OPERATOR 3 mL $ Given 10/01/2023 10:10 PM BLUNGER MACHINE OPERATOR 3 mL acetaminophen (Tylenol) tablet 650 mg 650 [...] the MAR. $ Given 09/26/2023 8:23 PM BLUNGER MACHINE OPERATOR 650 mg ALPRAZolam (Xanax) tablet 0.5 mg 0.5 mg, Oral, 3 TIMES DAILY PRN, Anxiety, Starting on 09/29/23 at 1806, Until Hetal 10/04/23 at 1244 $ Given 10/03/2023 8:19 PM BLUNGER MACHINE OPERATOR 0.5 mg $ Given 10/02/2023 9:40 PM BLUNGER MACHINE OPERATOR 0.5 mg $ Given 10/02/2023 1:50 AM BLUNGER MACHINE OPERATOR 0.5 mg amLODIPine (Norvasc) tablet 10 mg 10 mg, Oral, DAILY, First dose (after last modification) on Sun09/25/23 at 0900, Until Discontinued $ Given 10/04/2023 8:28 AM BLUNGER MACHINE OPERATOR 10 mg $ Given 10/03/2023 8:14 AM BLUNGER MACHINE OPERATOR 10 mg $ Given 10/02/2023 8:07 AM BLUNGER MACHINE OPERATOR 10 mg bisacodyl (Dulcolax) suppository 10 mg 10 mg, Rectal, DAILY PRN, Constipation, Starting on Sun09/27/23 at 1056, Until Hetal 10/04/23 at 1244 carvedilol (Coreg) tablet 25 mg 25 mg, Oral, 2 TIMES DAILY, First dose on Sun09/24/23 at 2100, Until Discontinued, Take with food $ Given 10/04/2023 8:27 AM BLUNGER MACHINE OPERATOR 25 mg $ Given 10/03/2023 8:11 PM BLUNGER MACHINE OPERATOR 25 mg $ Given 10/03/2023 8:14 AM BLUNGER MACHINE OPERATOR 25 mg ceFAZolin (Ancef) 2 g in 0.9% NaCl IV 50 mL IVPB 2 g, at 100 mL/hr, Intravenous, EVERY 8 HOURS, First dose on Hetal 09/27/23 at 1045, Until Discontinued, Indication for anti-infective therapy: Documented infection, Site of anti-infective therapy: Bone/Joint $ New Bag/Syringe 10/04/2023 3:55 AM BLUNGER MACHINE OPERATOR 2 g 100 mL/hr $ New Bag/Syringe 10/03/2023 8:13 PM BLUNGER MACHINE OPERATOR 2 g 100 mL /hr $ New Bag/Syringe 10/03/2023 12:05 PM BLUNGER MACHINE OPERATOR 2 g 100 m L/hr cyclobenzaprine (Flexeril) tablet 10 mg 10 mg, Oral, 2 TIMES DAILY, First dose on Sun09/24/23 at 2100, Until Discontinued $ Given 10/04/2023 8:28 AM BLUNGER MACHINE OPERATOR 10 m g $ Given 10/03/2023 8:11 PM BLUNGER MACHINE OPERATOR 10 mg $ Given 10/03/2023 8:14 AM BLUNGER MACHINE OPERATOR 10 mg dextrose 10 % IV bolus [...] Until Discontinued $ Given 10/04/2023 8:28 AM BLUNGER MACHINE OPERATOR 100 mg $ Given 10/03/2023 8:11 PM BLUNGER MACHINE OPERATOR 100 mg $ Given 10/03/2023 8:14 AM BLUNGER MACHINE OPERATOR 100 mg enoxaparin (Lovenox) injection 40 mg 40 mg, Subcutaneous, DAILY, First dose on Sun10/03/23 at 1000, Until Discontinued, (for prefilled syringes) do not expel air bubble from the syringe prior to the injection Remind Patient to not rub injection site. Could cause hematoma. $ Given 10/04/2023 8:27 AM BLUNGER MACHINE OPERATOR 40 mg Ab dominal Tissue $ Given 10/03/2023 10:10 AM BLUNGER MACHINE OPERATOR 40 mg A bdominal Tissue fentaNYL (PF) [...] other medications. $ Given 10/04/2023 8:28 AM BLUNGER MACHINE OPERATOR 325 mg $ Given 10/03/2023 8:14 AM BLUNGER MACHINE OPERATOR 325 mg $ Given 10/02/2023 8:07 AM BLUNGER MACHINE OPERATOR 325 mg glucagon (Glucagen) injection 1 mg [...] MAR., PACU $ Given 09/27/2023 4:40 PM BLUNGER MACHINE OPERATOR 0.5 mg HYDROmorphone (Dilaudid) injection 0.5 mg [...] MAR., PACU $ Given 10/03/2023 6:38 AM BLUNGER MACHINE OPERATOR 0.5 mg $ Given 10/02/2023 5:02 PM BLUNGER MACHINE OPERATOR 0.5 mg $ Given 10/02/2023 4:30 PM BLUNGER MACHINE OPERATOR 0.5 mg HYDROmorphone (Dilaudid) injection 0.6 mg [...] the MAR. $ Given 10/03/2023 10:14 AM BLUNGER MACHINE OPERATOR 0.6 mg $ Given 10/02/2023 6:10 PM BLUNGER MACHINE OPERATOR 0.6 mg $ Given 09/30/2023 9:33 PM BLUNGER MACHINE OPERATOR 0.6 mg insulin aspart (NovoLOG) pen 0-4 [...] notify physician $ Given 10/02/2023 9:43 PM BLUNGER MACHINE OPERATOR 2 Units Abdominal Tissue insulin aspart (NovoLOG) [...] same time. $ Given 10/01/2023 12:12 PM BLUNGER MACHINE OPERATOR 2 Units Abdominal Tissue $ Given 09/30/2023 12:04 PM BLUNGER MACHINE OPERATOR 2 Units A bd Left Upper Quadrant $ Given 09/27/2023 6:13 PM BLUNGER MACHINE OPERATOR 2 Units Ab dominal Tissue insulin regular [...] at 1056, Until Hetal 10/04/23 at 1244 $ Given 09/28/2023 8:57 AM BLUNGER MACHINE OPERATOR 30 g naloxone (Narcan) injection 0.04 mg [...] the MAR. $ Given 10/04/2023 8:27 AM BLUNGER MACHINE OPERATOR 1 tablet $ Given 10/04/2023 3:50 AM BLUNGER MACHINE OPERATOR 1 tablet $ Given 10/03/2023 10:53 PM BLUNGER MACHINE OPERATOR 1 tablet pantoprazole EC (Protonix) tablet 40 mg 40 mg, Oral, DAILY, First dose on Sun09/24/23 at 1645, Until Discontinued, Do not crush, chew, or cut in half. $ Given 10/04/2023 8:28 AM BLUNGER MACHINE OPERATOR 40 mg $ Given 10/03/2023 8:14 AM BLUNGER MACHINE OPERATOR 40 mg $ Given 10/02/2023 8:07 AM BLUNGER MACHINE OPERATOR 40 mg pregabalin (Lyrica) capsule 50 mg 50 mg, Oral, 2 TIMES DAILY, First dose on Sun09/24/23 at 2100, Until Discontinued $ Given 10/04/2023 8:28 AM BLUNGER MACHINE OPERATOR 50 m g $ Given 10/03/2023 8:11 PM BLUNGER MACHINE OPERATOR 50 mg $ Given 10/03/2023 8:14 AM BLUNGER MACHINE OPERATOR 50 mg prochlorperazine (Compazine) injection 10 mg 10 mg, Intravenous, ONCE PRN, Nausea/Vomiting, 1 dose, Starting on Sun09/27/23 at 1214, Until Sun10/04/23 at 1244, Third [...] Until Discontinued $ Given 10/04/2023 5:08 AM BLUNGER MACHINE OPERATOR 40 m g $ Given 10/03/2023 6:38 AM BLUNGER MACHINE OPERATOR 40 mg $ Given 10/01/2023 10:37 AM BLUNGER MACHINE OPERATOR 40 mg sertraline (Zoloft) tablet 200 mg 200 mg, Oral, DAILY, First dose (after last modification) on Sun09/24/23 at 1830, Until Discontinued, Avoid concurrent administration with grapefruit juice $ Given 10/04/2023 8:27 AM BLUNGER MACHINE OPERATOR 200 mg $ Given 10/03/2023 8:14 AM BLUNGER MACHINE OPERATOR 200 mg $ Given 10/02/2023 8:07 AM BLUNGER MACHINE OPERATOR 200 mg vancomycin (Vancocin) 1 g in 0.9% NaCl irrigation 3,000 mL irrigation PRN, Starting on Hetal 09/27/23 at 1202, Until Hetal 09/27/23 at 1213, Intra-op $ Given 09/27/2023 12:02 PM BLUNGER MACHINE OPERATOR 3,000 mL Operative Site vancomycin (Vancocin) injection PRN, Starting on Hetal 09/27/23 at 1201, Until Hetal 09/27/23 at 1213, Intra-op $ Given 09/27/2023 12:01 PM BLUNGER MACHINE OPERATOR 1,000 mg Operative Site documented in this encounter Active and Recently Administered Medications Times are shown in BLUNGER MACHINE OPERATOR. Scheduled Medication Order 10/02/2023 10/03/2023 10/04/2023 0.9% [...] duplicate row)1317 (Not Administered - Provider: Bailey Jnoes RN - Reason: IV Currently Infusing)214 (Not [...] Jones RN - Reason: Documented on duplicate row)214 (Not Administered - Provider: Samwel O Owuor, RN - Reason: IV Currently Infusing) 0630 [...] 08 ($ Given - Provider: Bailey Jones RN)2140 [...] 08 ($ Given - Provider: Bailey Jones RN)2140 [...] ($ Given - Provider: Mulu Dickens RN) 08 ($ Given - Provider: Mulu Dickens RN) pregabalin (Lyrica) capsule 50 mg 50 mg, Oral, 2 TIMES DAILY, First dose on Sun09/24/23 at 2100, Until Discontinued 08 ($ Given - Provider: Bailey Jones RN)2139 ($ Given - Provider: Chacho Tian RN) 08 ($ Given - Provider: Mulu Dickens, ANA)2010 ($ Given - Provider: Meenakshi Manzanares RN) [...] Access, Starting on Sun09/24/23 at 1623, Until Hetla 10/04/23 at 1244, If NOT able to [...] 20 MIN PRN, Severe Pain, Starting on 10/02/23 at 1628, Until Hetal [...] MAR. 181 ($ Given - Provider: Bailey Jones RN) [...] portion documented in this encounter Care Teams [employer] Mixer Operator Relationship Specialty Start Date End Date Faisal Richardson DO [address] [place] [id number] PCP - General Family Medicine 11/27/22 documented as of this encounter
--- OUTSIDE RECORDS SUMMARY | 2024-07-28 00:58 | XMS_ITS | Encounter Summary ---
Author Organization [facility] Address [address] [facility] [place] [address] Care Team Providers Care Scout Professional Sports Name Role Phone Faisal Richardson DO Primary Care Provider [phone] Reason for Visit * Auth/Cert (Routine) Specialty Diagnoses / Procedures Referred By Contac t Referred To Contact Referral ID Status Reason Start Date Expiration Date Visits Re quested Visits Authorized [id number] 1 1 Encounter Details Date Type Department Care Team (Late st Contact Info) Description 09/24/2023 8:04 PM PROFESSIONAL APPLICATION DESIGNER Anesthesia Event [facility] [address] [place] [address] Charly Howard DO Anesthesia Record Procedure Summary Procedure Name Responsible Anesthesiologist Anesthesia Start Time Anesthesia Stop Time ASPIRATION RIGHT HIP UNDER FLUOROSCOPY, FLUOROSCOPY FOR NEEDLE PLACEMENT RIGHT HIP, ARTHROTOMY WITH IRRIGATION AND DEBRIDEMENT RIGHT HIP, REMOVAL OF HARDWARE RIGHT HIP, PLACEMENT OF ANTIBIOTIC BEADS RIGHT HIP X20, WOUND VAC PLACEMENT RIGHT HIP (Right: Hip) Charly Howard DO 09/24/23200309/24/232147 Events Date Time Event Comment 09/24/20232003 An Start 2003 An Start Data 2007 PT Reassessment 2007 Induction 2008 An Intubation 2020 Timeout Anesthesia part icipated in timeout at the time documented in the record by nursing. Timeout for hip aspiration Waiting on abx for culture of wound 2035 Quick Note Left lateral po sitioning 2047 Timeout Anesthesia part icipated in timeout at the time documented in the record by nursing. Timeout for I&D of hip 2048 Quick Note 2137 Extubation 2139 an stop data 2139 Electnc Sig This record is electronically signed by the providers listed under staff. 2139 ANPTO2 214 An Stop Meds Name Total midazolam 2 mg/2mL injection 2 mg fentaNYL 100 mcg/2 mL injection 100 mcg lidocaine 2% injection (20 mg/ml) 100 mg propofol 200mg/20mL injection 150 mg succinylcholine (ANECTINE) 100 mg/5 mL i njection 140 mg rocuronium 50mg/5mL injection 50 mg phenylephrine 1000 mcg/10mL injection 2. 64 mg dexamethasone 4 mg/ml injection 4 mg ondansetron 4 mg/2mL injection 4 mg ketorolac 30 mg/ml injection 15 mg sugammadex 200 mg/2 mL injection 200 mg tranexamic acid 1000mg /10mL bolus 1,000 mg dexMEDETOmidine (PRECEDEX) 200 mcg/2ml i njection 10 mcg ceFAZolin 1 g injection 3 g vancomycin 1000 mg injection (vial) 1 g diphenhydrAMINE 50mg/ml injection 25 mg lactated ringers infusion 700 mL * Agents Name Insp. N2O Exp. Sevoflurane Exp. N2O O2 Air Insp. Sevoflurane N2O * Blood No blood administrations on file. Lines, Drains, and Airways Type Details Placement Removal Peripheral IV Date: 09/24/23; Time : 105; Orientation: Anterior, Distal, Left, Upper; Placed By: Marc CHUA-P; Tolerance: Well 09/24/23 1050 by Vanessa Russell, EMT-P 09/27/23 1724 by Chikis Negron RN ETT Date: 09/24/23; Time : 2008; Placed By: FERN Escobar; Vent: easy with oral airway mask; Induction: Standard IV; Blade Type: Video; Blade Size: 4; Laryngoscopy View: Grade 1 (full cords); Intubation Adjuncts: Stylet, Video Laryngoscope; Tube: Endotracheal Tube; Placement: Oral; Tube Type: Cuffed-inflated; Tube Size(mm): 8 MM; Depth of Insertion: 23 CM; Measured From: teeth; Attempts: 1; Cuff Infated: Air; Cuff Vol(mL): 7 mL; Verified By: Direct visualization, Bilateral breath sounds, Chest Auscultation, CO2 Detector 09/24/232008 by Nimco Hale APRN-CRNA 09/24/232137 by Nimco Hale APRN-CRNA Negative Pressure Wound Therapy 09/24/23; 2126; Right; Hip; 10/04/23; 1744 09/24/232126 by Felipe Haque RN 10/04/231743 by Generic, Auto Release documented in this [...] Not hard at all 12/14/2022 [facility] Occup[facility] ional [facility] - Occupational Stress [...] in a senior living (including now)? No 12/14/2022 Sex and Gender [...] as of this encounter Progress Notes * Charly Howard DO - 09/25/2023 10:32 AM CST ANESTHESIA POSTOP EVALUATION NOTE Procedure: ASPIRATION RIGHT HIP UNDER FLUOROSCOPY, FLUOROSCOPY FOR NEEDLE PLACEMENT RIGHT HIP, ARTHROTOMY WITH IRRIGATION AND DEBRIDEMENT RIGHT HIP, REMOVAL OF HARDWARE RIGHT HIP, PLACEMENT OF ANTIBIOTIC BEADS RIGHT HIP X20, WOUND VAC PLACEMENT RIGHT HIP (Right: Hip) Jose Rutledge is a 58 year old male Patient Vitals for the past 6 hrs: BP Temp Pulse Resp SpO2 Pain Rating Score #1 Pain Scale/Observation 09/25/23 0445 108/63 97.6 ??F (36.4 ??C) 76 18 95 % 0 N 09/25/23 0749 125/53 98.3 ??F (36.8 ??C) 73 18 99 % -- -- 09/25/23 0819 -- -- -- -- -- 5 N 09/25/23 0910 -- -- -- -- -- 0 B Anesthesia Type: general ETT Pre-op Diagnosis Codes: * Diagnosis unknown [R69] Mental Status: neurologic status has returned to preoperative level and sufficiently recovered fromacute administration of anesthesia to participate in the evaluation Respiratory Function: natural Cardiac Function: stable Postop Pain: acceptable to the patient Postop Hydration: adequate Postop Nausea: none Assessment: no apparent anesthetic complications, patient tolerated procedure well and no evidence of recall Patient Disposition: Release from Anesthesia Care NOTABLE EVENTS: No notable events documented. ESSIONAL APPLICATION DESIGNER * Charly Howard DO - 09/24/2023 8:03 PM CST ANESTHESIA PREOPERATIVE EVALUATION NOTE Procedure: ASPIRATION HIP, POSSIBLE INCISION AND DAINAGE (Right: Hip) Vitals: Patient Vitals for the past 6 hrs: BP Temp Pulse Resp SpO2 Pain Rating Score #1 09/24/23 1938 -- -- -- -- -- 5 09/24/23 1813 118/67 98.6 ??F (37 ??C) 78 18 -- -- 09/24/23 1758 -- -- -- -- -- 10 09/24/23 1729 118/67 98.6 ??F (37 ??C) 78 18 96 % -- 09/24/23 1424 111/95 -- 81 -- 95 % -- 09/24/23 1423 -- -- -- -- 95 % -- 09/24/23 1419 -- -- -- -- -- 10 09/24/23 1419 -- -- -- -- 96 % -- 09/24/23 1417 -- -- -- -- -- 10 LMP: No LMP for male patient. OB Status: unknown ANESTHESIA PRE-EVALUATION NOTE History of Present Illness: Moderate - well controlled asymptomatic NATALY on cpap The patient is a current non-smoker. Physical Exam: Orientation X3 Airway/Mallampati Score: I Mouth Opening Distance: 3 fingerwidths Neck ROM: [...] Lab(s) reviewed: Yes. ANESTHESIA PLAN ASA Score: 2 E NPO Status: No solids for 8 hours Anesthesia Plan: general ETT Planned Induction: intravenous Planned Postop Destination: PACU Anesthetic plan was discussed with: patient Anesthetic Plan discussion was: Consented The patient's procedural Anesthetic Plan was discussed with the CLIENT SERVICE EXECUTIVE. BMI, Height, Weight Tobacco History Estimated body mass index is 37.3 kg/m?? as calculated from the following: Height as of this encounter: 1.829 m (6'). Weight as of this encounter: 124.7 kg (275 lb). Social History Tobacco Use Smoking Status Never Smokeless Tobacco Never Alcohol History Drug History Social History Substance and Sexual Activity Alcohol Use Not Currently Social History Substance and Sexual Activity Drug Use No Outpatient Medications: Inpatient Medications: Outpatient Medications Marked as Taking for the 09/24/23 encounter (Hospital Encounter) Medication Sig Last Dose ??? amLODIPine Take 1 (one) tablet by mouth once daily 09/24/2023 ??? Probiotic 09/24/2023 ??? buPROPion XL 24hr 09/24/2023 ??? carvedilol Take 1 (one) tablet by mouth 2 times daily 09/24/2023 ??? clopidogrel Take 1 (one) tablet by mouth once daily Start taking 12/19/22. 09/24/2023 ??? cyclobenzaprine Take 1 (one) tablet by mouth 2 times daily 09/24/2023 ??? DSS Take 100 mg by mouth 2 times daily 09/24/2023 ??? dulaglutide Past Week ??? ergocalciferol Take 1 (one) capsule by mouth 09/24/2023 ??? ferrous sulfate Take 1 (one) tablet by mouth once daily 09/24/2023 ??? losartan-hydroCHLOROthiazide Take 1 (one) tablet by mouth every morning 09/24/2023 ??? metFORMIN Take 1 (one) tablet by mouth 2 times daily 09/24/2023 ??? One-A-Day Mens Health Formula 09/24/2023 ??? pantoprazole EC Take 1 (one) tablet by mouth once daily Reasons: Stomach Ulcer 09/24/2023 ??? pregabalin Take 1 (one) capsule by mouth 2 times daily 09/24/2023 ??? rosuvastatin Take 2 (two) tablets by mouth every morning 09/24/2023 ??? sertraline Take 1 (one) tablet by mouth once daily 09/24/2023 Current Facility-Administered Medications Medication Dose Last Admin ??? *Hold/Avoid Medication ??? 0.9% NaCl 3 mL 3 mL at 09/24/23 1807 And ??? 0.9% NaCl 1-10 mL 10 mL at 09/24/23 1938 ??? acetaminophen 650 mg ??? [START ON 09/25/2023] amLODIPine 10 mg ??? carvedilol 25 mg ??? cyclobenzaprine 10 mg ??? dextrose IV for hypoglycemia 12.5 g Or ??? dextrose IV for hypoglycemia 25 g Or ??? glucagon 1 mg ??? docusate sodium 100 mg ??? ferrous sulfate 325 mg 325 mg at 09/24/23 1758 ??? glucose (Diabetic Use) gel ??? HYDROcodone-acetaminophen 1 tablet 1 tablet at 09/24/23 1758 ??? insulin aspart 0-4 Units ??? insulin aspart 0-6 Units ??? iopamidol 100 mL at 09/24/23 1430 ??? morphine 2 mg 2 mg at 09/24/23 1938 ??? ondansetron (disintegrating) 4 mg ??? ondansetron 4 mg ??? pantoprazole EC 40 mg 40 mg at 09/24/23 175 ??? pregabalin 50 mg ??? prochlorperazine 5 mg ??? prochlorperazine 5 mg ??? rosuvastatin 40 mg 40 mg at 09/24/23 1758 ??? sertraline 200 mg Allergies: Allergies Allergen Reactions ??? Penicillins Angioedema Relevant Problems Problem List: Patient Active Problem List Diagnosis [...] Not Prioritized ??? Closed left maxillary fracture ([facility]) 11/21/2022 Priority: Not Prioritized ??? H/O ischemic [...] ??? Sleep apnea uses cpap ??? Stroke ([facility]) 2021 balance residual ??? Type 2 diabetes mellitus without complications ([facility]) Surgical History: Past Surgical History: Procedure Laterality [...] Repair Right ??? 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 unknown OB History No obstetric history on file. Covid Vaccine: Lab Results: Recent Labs Component Name 09/24/23 1058 WBC 11.8* RBC 4.15* HCT 38.9 HGB 12.6* PLTCOUNT 194 MCV 93.7 MCH 30.4 MCHC 32.4 MPV 9.1 Recent Labs Component Name 09/24/23 1058 SODIUM 137 POTASSIUM 4.2 CALCIUM 9.4 CHLORIDE 105 CO2 23 GLUCOSE 178* BUN 14 CREATININE 0.90 No results found for requested labs within last 120 days. Recent Labs Result Component Current Result Anion Gap 9 (09/24/2023) eGFR by CKD-EPI >90 (09/24/2023) ESSIONAL APPLICATION DESIGNER documented in this encounter Procedure Notes * Nimco Ruvalcaba APRN-CLIENT SERVICE EXECUTIVE - 09/24/2023 8:25 PM CSTAssociated Order(s): ETT Placement Endotracheal Tube Placement: Patient Location: OR. Intubation Event Date/Time: 09/24/2023 8:09 PM Procedure: intubation (32556). Procedure Section: Sedation: under general anesthesia. Indications for Airway Management: anesthesia Induction: standard IV Patient Position: sniffing Mask Ventilation: easy with oral airway. Blade Type: Video (Glidescope) Blade Size: 4 Laryngoscopy View: grade 1 (full cords) Intubation Adjuncts: stylet and video laryngoscope Tube: endotracheal tube Placement: oral Tube type: cuff - inflated Tube Size (MM): 8 Depth of Insertion (CM): 23 Measured From: teeth Cuff volume (mL): 7 Cuff Inflated With: air Number of Attempts: 1. Placement Verified By: direct visualization, bilateral breath sounds, chest auscultation and CO2 detector Tube secured with: adhesive tape. Dentition unchanged? Yes Difficult Airway? No. Procedure Start Time: 09/24/2023 8:09 PM. Staff Section Anesthesia Provider: Nimco Ruvalcaba APRN-CRNA, Performed the procedure Provider #1: Charly Howard DO. ESSIONAL APPLICATION DESIGNER documented in this encounter Miscellaneous Notes * Anesthesia Transfer of Care - Nimco Ruvalcaba APRN-CRNA - 09/24/2023 9:48 PM CST ANESTHESIA TRANSFER OF CARE NOTE Today's Date: 09/24/2023 Date of : 1965 Patient: Jose Rutledge Procedure(s): ASPIRATION RIGHT HIP UNDER FLUOROSCOPY, FLUOROSCOPY FOR NEEDLE PLACEMENT RIGHT HIP, ARTHROTOMY WITHIRRIGATION AND DEBRIDEMENT RIGHT HIP, REMOVAL OF HARDWARE RIGHT HIP, PLACEMENT OF ANTIBIOTIC BEADS RIGHT HIP X20, WOUND VAC PLACEMENT RIGHT HIP Surgeon(s): Primary: Torrey Lafleur MD Preop Diagnosis: Pre-op Diagnois: * Diagnosis unknown [R69] Pre-op Meds (From admission, onward) Start Stop Status Route Frequency Ordered 09/24/231999 *Hold/Avoid Medication 09/27/23 1959 Verified OTHER EVERY 12 HOURS (08 and 20) 09/24/23 1405 09/24/23 1404 0.9% NaCl injection 0-10 mL 09/24/23 1431 Completed IK ONCE PRN 09/24/23 1405 09/24/23 1625 0.9% NaCl injection 1-10 mL See Hyperspace for full Linked Orders Report. -- Dispensed IK PRN 09/24/23 1626 09/24/23 1700 0.9% NaCl injection 3 mL See Hyperspace for full Linked Orders Report. -- Dispensed IK EVERY 8 HOURS 09/24/23 1626 09/24/23 1404 0.9% NaCl IV flush bag 09/24/23 1431 Completed IK ONCE PRN 09/24/23 1405 09/24/23 1626 acetaminophen (Tylenol) tablet 650 mg -- Verified PO EVERY 4 HOURS PRN 09/24/23 1626 09/25/23 0900 amLODIPine (Norvasc) tablet 10 mg Note to Pharmacy: OP sig: Take 1 (one) tablet by mouth once daily -- Verified PO DAILY 09/24/23 1614 09/24/23 2100 carvedilol (Coreg) tablet 25 mg Note to Pharmacy: OP sig: Take 1 (one) tablet by mouth 2 times daily -- Verified PO 2 TIMES DAILY 09/24/23 1622 09/24/23 2100 cyclobenzaprine (Flexeril) tablet 10 mg Note to Pharmacy: OP sig: Take 1 (one) tablet by mouth 2 times daily -- Verified PO 2 TIMES DAILY 09/24/23 1604 09/24/23 1623 dextrose 10 % IV bolus See Hyperspace for full Linked Orders Report. -- Verified IV PRN 09/24/23 1624 09/24/23 1623 dextrose 10 % IV bolus See Hyperspace for full Linked Orders Report. -- Verified IV PRN 09/24/23 1624 09/24/23 2100 docusate sodium (Colace) capsule 100 mg Note to Pharmacy: OP sig: Take 100 mg by mouth 2 times daily -- Verified PO 2 TIMES DAILY 09/24/23 1604 09/24/23 214 fentaNYL (PF) (Sublimaze) injection 25 mcg -- Verified IV EVERY 10 MIN PRN 09/24/23 2141 09/24/23 1645 ferrous sulfate tablet 325 mg Note to Pharmacy: OP sig: Take 1 (one) tablet by mouth once daily -- Dispensed PO DAILY 09/24/23 1604 09/24/23 1623 glucagon (Glucagen) injection 1 mg See Hyperspace for full Linked Orders Report. -- Verified SC PRN 09/24/23 1624 09/24/23 1623 glucose (Diabetic Use) oral gel -- Verified PO PRN 09/24/23 1624 09/24/23 1726 HYDROcodone-acetaminophen (Issue) 5-325 MG tablet 1 tablet -- Dispensed PO EVERY 4 HOURS PRN 09/24/23 1727 09/24/23 2141 HYDROmorphone (Dilaudid) injection 0.2 mg -- Verified IV EVERY 15 MIN PRN 09/24/23 21409/24/23 1415 HYDROmorphone (Dilaudid) injection 0.5 mg 09/24/23 1417 Completed IV NOW 09/24/23 14009/24/23 214 HYDROmorphone (Dilaudid) injection 0.5 mg -- Verified IV EVERY 10 MIN PRN 09/24/23 21409/24/23 2100 insulin aspart (NovoLOG) pen 0-4 Units -- Verified SC AT BEDTIME 09/24/23 1624 09/24/23 1800 insulin aspart (NovoLOG) pen 0-6 Units -- Dispensed SC 3 TIMES DAILY WITH MEALS 09/24/23 16209/24/23 214 insulin regular human (HumuLIN R; NovoLIN R) 100 UNIT/ML injection 0-6 Units 09/25/23 0944 Verified IV ONCE 09/24/23 21409/24/23 1404 iopamidol (Isovue 370) 76 % contrast 09/26/23 1403 Dispensed IV CONTRAST ONCE 09/24/23 1405 09/24/23 2145 lactated ringers infusion -- Verified IV CONTINUOUS 09/24/23 21409/24/23 1726 morphine injection 2 mg -- Dispensed IV EVERY 4 HOURS PRN 09/24/23 1727 09/24/23 1015 morphine injection 4 mg 09/24/23 1052 Completed IV NOW 09/24/23 1011 09/24/23 214 naloxone (Narcan) injection 0.04 mg -- Verified IV POST-OP MULTIPLE 09/24/23 21409/24/23 162 ondansetron (disintegrating) (Zofran ODT) tablet 4 mg -- Verified PO EVERY 6 HOURS PRN 09/24/23 1626 09/24/23 1030 ondansetron (Zofran) injection 4 mg 09/24/23 1052 Completed IV ONCE 09/24/23 1011 09/24/23 1626 ondansetron (Zofran) injection 4 mg -- Verified IV EVERY 6 HOURS PRN 09/24/23 1626 09/24/23 1645 pantoprazole EC (Protonix) tablet 40 mg Note to Pharmacy: OP sig: Take 1 (one) tablet by mouth once daily Reasons: Stomach Ulcer -- Dispensed PO DAILY 09/24/23 1604 09/24/23 2100 pregabalin (Lyrica) capsule 50 mg Note to Pharmacy: OP sig: Take 1 (one) capsule by mouth 2 times daily -- Verified PO 2 TIMES DAILY 09/24/23 1618 09/24/23 1626 prochlorperazine (Compazine) injection 5 mg -- Verified IV EVERY 6 HOURS PRN 09/24/23 1626 09/24/23 1626 prochlorperazine (Compazine) injection 5 mg -- Verified IM EVERY 6 HOURS PRN 09/24/23 1626 09/24/23 1645 rosuvastatin (Crestor) tablet 40 mg Note to Pharmacy: OP sig: Take 2 (two) tablets by mouth every morning -- Dispensed PO EVERY MORNING 09/24/23 1604 09/24/23 1830 sertraline (Zoloft) tablet 200 mg Note to Pharmacy: OP sig: Take 1 (one) tablet by mouth once daily -- Dispensed PO DAILY 09/24/23 1614 Post-op Diagnosis: * Diagnosis unknown [R69] . Allergies Allergen Reactions ??? Penicillins Angioedema Vitals: Patient Vitals for the past 3 hrs: Pain Rating Score #1 09/24/23 1938 5 Lines, Drains, and Airways Type Details Placement Removal Peripheral IV Date: 09/24/23; Time: 1049; Orientation: Anterior, Distal, Left, Upper; Location: Arm; Placed By: Marc Russell EMT-P; Gauge: 20 Gauge; Locals: None; Tolerance: Well 09/24/23 1050 by Vanessa Russell EMT-P ETT Date: 09/24/23; Time: 2008; Placed By: FERN Escobar; Vent: easy with oral airway mask; Induction: Standard IV; Blade Type: Video; Blade Size: 4; Laryngoscopy View: Grade 1 (full cords); Intubation Adjuncts: Stylet, Video Laryngoscope; Tube: Endotracheal Tube; Placement: Oral; Tube Type: Cuffed- inflated; Tube Size(mm): 8 MM; Depth of Insertion: 23 CM; Measured From: teeth; Attempts: 1; Cuff Infated: Air; Cuff Vol(mL): 7 mL; Verified By: Direct visualization, Bilateral breath sounds, Chest Auscultation, CO2 Detector 09/24/232008 by Nimco Ruvalcaba APRN-CRNA 09/24/232137 by Nimco Ruvalcaba APRN-CRNA Negative Pressure Wound Therapy 09/24/23; 2126; Right; Hip 09/24/232126 by Felipe Haque RN Intraprocedure I/O Totals Intake lactated ringers infusion 700.00 mL Total Intake 700 mL Output Estimated Blood Loss 300 mL Total Output 300 mL Net Net Volume 400 mL Patient Transfer Location: PACU Transport Airway: oral airway, spontaneous respirations and supplemental O2 Complications: None Handoff Given? Yes Checklist or [...] of report from the receiving PACUteam. FERN Hanson ESSIONAL APPLICATION DESIGNER documented in this encounter Plan of Treatment Upcoming Encounters Date Type Department Care Team (Late st Contact Info) Description 01/20/2025 10:00 AM CDT Office Visit [facility] - Orthopedic Surgery [address] [place] [id number] Torrey Lafleur MD [address] [facility] [address] [place] [address] documented as of this encounter Procedures Procedure Name Priority Date/Time Associated Diagnosis Comments ENDOTRACHEAL TUBE NOTE Routine 09/24/2023 8:25 PM PROFESSIONAL APPLICATION DESIGNER documented in this encounter Results * ETT LINE PERFORMABLE (09/24/2023 8:25 PM PROFESSIONAL APPLICATION DESIGNER) Narrative Nimco Ruvalcaba APRN-CRNA - 09/24/2023 8:25 PM PROFESSIONAL APPLICATION DESIGNER Nimco Ruvalcaba APRN-CRNA ? 09/24/2023 ??8:25 PM Endotracheal Tube Placement: ? Patient Location: OR. Intubation Event Date/Time: ??09/24/2023 8:09 PM Procedure: intubation (34134). Procedure Section: ?? Sedation: under general anesthesia. [...] Staff Section ? Anesthesia Provider: Nimco Ruvalcaba APRN-CRNA, Performed the procedure ? Provider #1: Charly Howard DO. Charly Howard DO GENERAL ANESTHESIA O RDERABLES documented in this encounter Visit Diagnoses Not on filedocumented in this encounter Administered Medications Inactive Administered Medications - up to 3 most recent administrations Medication Order MAR Action Action Date Dose Rate Site ceFAZolin (Ancef) injection Intravenous, PRN, Starting on Sun09/24/23 at 2059, Until Sun09/24/23 at 2148, Anesthesia Intra-op $ Given 09/24/2023 9:00 PM PROFESSIONAL APPLICATION DESIGNER 3 g dexAMETHasone (Decadron) injection Intravenous, PRN, Starting on Sun09/24/23 at 2018, Until Sun09/24/23 at 2148, Anesthesia Intra-op $ Given 09/24/2023 8:18 PM PROFESSIONAL APPLICATION DESIGNER 4 mg dexmedeTOMIDine (Precedex) injection Intravenous, PRN, Starting on Sun09/24/23 at 2044, Until Sun09/24/23 at 2148, Anesthesia Intra-op $ Given 09/24/2023 8:44 PM PROFESSIONAL APPLICATION DESIGNER 10 mcg diphenhydrAMINE (Benadryl) injection Intravenous, PRN, Starting on Sun09/24/23 at 2100, Until Sun09/24/23 at 2148, Anesthesia Intra-op $ Given 09/24/2023 9:00 PM PROFESSIONAL APPLICATION DESIGNER 25 mg fentaNYL (PF) (Sublimaze) injection Intravenous, PRN, Starting on Sun09/24/23 at 2006, Until Sun09/24/23 at 2148, Anesthesia Intra-op $ Given 09/24/2023 9:39 PM PROFESSIONAL APPLICATION DESIGNER 25 mcg $ Given 09/24/2023 9:31 PM PROFESSIONAL APPLICATION DESIGNER 25 mcg $ Given 09/24/2023 8:06 PM PROFESSIONAL APPLICATION DESIGNER 50 mcg ketorolac (Toradol) injection Intravenous, PRN, Starting on Sun09/24/23 at 2125, Until Sun09/24/23 at 2148, Anesthesia Intra-op $ Given 09/24/2023 9:25 PM PROFESSIONAL APPLICATION DESIGNER 15 mg lactated ringers infusion Intravenous, CONTINUOUS PRN, Starting on Sun09/24/23 at 2004, Until Sun09/24/23 at 2148, Anesthesia Intra-op $ New Bag/Syringe 09/24/2023 8:04 PM PROFESSIONAL APPLICATION DESIGNER lidocaine HCl (PF) (Xylocaine MPF) 2 % injection Intravenous, PRN, Starting on Sun09/24/23 at 2008, Until Sun09/24/23 at 2148, Anesthesia Intra-op $ Given 09/24/2023 8:08 PM PROFESSIONAL APPLICATION DESIGNER 100 mg midazolam (Versed) injection Intravenous, PRN, Starting on Sun09/24/23 at 2004, Until Sun09/24/23 at 2148, Anesthesia Intra-op $ Given 09/24/2023 8:04 PM PROFESSIONAL APPLICATION DESIGNER 2 mg ondansetron (Zofran) injection Intravenous, PRN, Starting on Sun09/24/23 at 2018, Until Sun09/24/23 at 2148, Anesthesia Intra-op $ Given 09/24/2023 8:18 PM PROFESSIONAL APPLICATION DESIGNER 4 mg phenylephrine 100 mcg/mL injection Intravenous, PRN, Starting on Sun09/24/23 at 2018, Until Sun09/24/23 at 2148, Anesthesia Intra-op Rate Change 09/24/2023 9:08 PM PROFESSIONAL APPLICATION DESIGNER 0.35 mcg/kg/min 26.187 mL/hr Rate Change 09/24/2023 8:54 PM PROFESSIONAL APPLICATION DESIGNER 0.3 mcg/kg/min 22.446 m L/hr $ New Bag/Syringe 09/24/2023 8:24 PM PROFESSIONAL APPLICATION DESIGNER 0.2 mcg/kg/min 14 .964 mL/hr propofol (Diprivan) injection Intravenous, PRN, Starting on Sun09/24/23 at 2007, Until Sun09/24/23 at 2148, Anesthesia Intra-op $ Given 09/24/2023 8:08 PM PROFESSIONAL APPLICATION DESIGNER 150 mg rocuronium (Zemuron) injection Intravenous, PRN, Starting on Sun09/24/23 at 2007, Until Sun09/24/23 at 2148, Anesthesia Intra-op $ Given 09/24/2023 8:38 PM PROFESSIONAL APPLICATION DESIGNER 10 mg $ Given 09/24/2023 8:18 PM PROFESSIONAL APPLICATION DESIGNER 35 mg $ Given 09/24/2023 8:08 PM PROFESSIONAL APPLICATION DESIGNER 5 mg succinylcholine (Anectine) injection Intravenous, PRN, Starting on Sun09/24/23 at 2007, Until Sun09/24/23 at 2148, Anesthesia Intra-op $ Given 09/24/2023 8:08 PM PROFESSIONAL APPLICATION DESIGNER 140 mg sugammadex (Bridion) injection Intravenous, PRN, Starting on Sun09/24/23 at 2128, Until Sun09/24/23 at 2148, Anesthesia Intra-op $ Given 09/24/2023 9:28 PM PROFESSIONAL APPLICATION DESIGNER 200 mg tranexamic acid (Cyklokapron) injection Intravenous, PRN, Starting on Sun09/24/23 at 2018, Until Sun09/24/23 at 2148, Anesthesia Intra-op $ Given 09/24/2023 8:18 PM PROFESSIONAL APPLICATION DESIGNER 1,000 mg vancomycin (Vancocin) injection Intravenous, PRN, Starting on Sun09/24/23 at 2059, Until Sun09/24/23 at 2148, Anesthesia Intra-op $ Given 09/24/2023 9:04 PM PROFESSIONAL APPLICATION DESIGNER 1 g documented in this encounter Care Teams Scout Professional Sports Relationship Specialty Start Date End Date Faisal Richardson DO [address] [place] [id number] PCP - General Family Medicine 11/27/22 documented as of this encounter
--- OUTSIDE RECORDS SUMMARY | 2024-07-28 00:58 | XMS_ITS | Encounter Summary ---
Author Organization [facility] Address [address] [place] [address] Care Team Providers Care Mold Forms Builder Name Role Phone Faisal Richardson DO Primary Care Provider [phone] Encounter Details Date Type Department Care Team (Latest Contact Info) Description 09/11/2023 Travel Social History Tobacco Use Types Packs/Day [...] and heating? Not hard at all 12/14/2022 [facility] [place] of Occupat ional Health - Occupational Stress [...] place to sleep or slept in a longterm (including now)? No 12/14/2022 Sex and Gender [...] Visit [facility] - Orthopedic Surgery [facility] [place] [phone] [place] [address] [place] [address] documented as of this encounter Visit Diagnoses Not on filedocumented in this encounter Care Teams Mold Forms Builder Relationship Specialty Start Date End Date Faisal Richardson DO [address] [place] [id number] PCP - General Family Medicine 11/27/22 documented as of this encounter
--- OUTSIDE RECORDS SUMMARY | 2024-07-28 00:58 | XMS_ITS | Encounter Summary ---
Author Organization [facility] Address [address] [facility] [place] [address] Care Team Providers Care Social Service Assistant Name Role Phone Faisal Richardson DO Primary Care Provider [phone] Encounter Details Date Type Department Care Team (Latest Contact Info) Description 09/11/2023 11:17 AM BEAD FORMING MACHINE SET UP OPERATOR - 09/11/2023 11:59 PM [facility] Hospital Encounter [facility] - Orthopedics [address], [address] [place] [address] Torrey Lafleur MD [address] [place], [place] [id number] Discharge Disposition: Home or Self Care Social [...] and heating? Not hard at all 12/14/2022 [facility] [place] of Occupat ional Health - Occupational Stress [...] the money to buy more. Never true 05/12/20 23 Within the past 12 months, t [...] place to sleep or slept in a fci (including now)? No 12/14/2022 Sex and Gender [...] No 12/14/2022 documented as of this encounter Medications at Time of Discharge Medication Sig Dispensed Refills Start Date End Date Bacillus Coagulans-Inulin (Probiotic) 1-250 BILLION-MG CAPS buPROPion XL 24hr (Wellbutrin-XL) 300 MG tablet 12/28/2022 carvedilol (Coreg) 25 MG tablet Take 1 (one) tablet by mouth 2 times daily 09/28/2021 clopidogrel (plaVIX) 75 MG tablet Take 1 (one) tablet by mouth once daily Start taking 12/19/22. 12/19/2022 cyclobenzaprine (Flexeril) 10 MG tablet Take 1 (one) tablet by mouth 2 times daily 03/05/2022 Docusate Sodium (DSS) 100 MG Take 100 mg by mouth 2 times daily 05/03/2022 dulaglutide (Trulicity) 1.5 MG/0.5ML injection 10/17/2021 ergocalciferol (Drisdol) 1.25 MG (25720 UT) capsule Take 1 (one) capsule by mouth 05/02/2022 ferrous sulfate 325 (65 FE) MG tablet Take 1 (one) tablet by mouth once daily metFORMIN (Glucophage) 1000 MG tablet Take 1 (one) tablet by mouth 2 times daily 03/05/2022 Multiple Vitamins-Minerals (One-A-Day Mens Health Formula) TABS 08/06/2021 pantoprazole EC (Protonix) 40 MG tabletIndications:Gas tric [...] 1 (one) tablet by mouth once daily amLODIPine (Norvasc) 5 MG tablet Take 1 (one) tablet by mouth once daily 03/06/2022 10/04/2023 aspirin (Aspirin 81) 81 MG chew tablet Take 1 (one) tablet by mouth 2 times daily 70 tablet 12/16/2022 10/04/2023 azithromycin (Zithromax) 500 MG tabletIndications:Inf ection Prophylaxis in Prosthetic Arthroplasty Take 1 (one) tablet by mouth 1 Hour prior to Dental Appointment Reasons: Treatment to Prevent Infection in Prosthetic Arthroplasty 1 tablet 09/07/2023 10/04/2023 betamethasone dipropionate (Diprosone) 0.05 % ointment as needed 10/10/2021 10/04/2023 cloNIDine (Catapres) 0.1 MG tablet Take 1 (one) tablet by mouth 2 times daily 03/05/2022 10/04/2023 losartan-hydroCHLOROt hiazide (Hyzaar) 100-12.5 MG tablet Take 1 (one) tablet by mouth every morning 10/17/2021 10/04/2023 documented as of this encounter Plan of Treatment Upcoming Encounters Date Type Department Care Team (Late st Contact Info) Description 01/20/2025 10:00 AM CDT Office Visit [facility] - Orthopedic Surgery [address] [facility] [place] [address] Torrey Lafleur MD [address] [place] [address] documented as of this encounter Procedures Procedure Name Priority Date/Time Associated Diagnosis Comments XR PELVIS W RIGHT HIP 2VW Routine 09/11/2023 11:21 AM BEAD FORMING MACHINE SET UP OPERATOR Right hip pain documented in this encounter Results * XR PELVIS W RIGHT HIP 2VW (09/11/2023 11:21 AM BEAD FORMING MACHINE SET UP OPERATOR) Anatomical Region Laterality Modality Pelvis Radiographic Sabi ging 09/11/2023 11:5 1 AM BEAD FORMING MACHINE SET UP OPERATOR Narrative 09/11/2023 12:03 PM BEAD FORMING MACHINE SET UP OPERATOR PROCEDURE: ??XR PELVIS W RIGHT HIP 2VW, DATE/TIME OF EXAM: ??09/11/2023 11:21 AM, LOCATION ??[facility] INDICATION: M25.551: Pain in right hip PELVIS AND RIGHT HIP, THREE VIEW HISTORY: Arthroplasty follow-up. FINDINGS: Since 07/10/2023, there has been no change in the appearance of a right hip prosthesis or open reduction and internal fixation of a proximal femoral fracture. No acute fracture or dislocation is seen. Degenerative change of the left hip joint and symphysis pubis is stable. Edited by Sole Pearson on 09/11/2023 11:53 AM > Interpreting Provider: Mitchell Zuniga MD on 09/11/2023 12:03 PM Procedure Note Mitchell Zuniga MD - 09/11/2023 PROCEDURE: XR PELVIS W RIGHT HIP 2VW, DATE/TIME OF EXAM: 1:21 AM, LOCATION [facility] INDICATION: M25.551: Pain in right hip PELVIS AND RIGHT HIP, THREE VIEW HISTORY: Arthroplasty follow-up. FINDINGS: Since 07/10/2023, there has been no change in the appearance of a righthip prosthesis or open reduction and internal fixation of a proximal femoral fracture. No acute fracture or dislocation is seen. Degenerative changeof the left hip joint and symphysis pubis is stable. Edited by Sole Pearson on 09/11/2023 11:53 AM > Interpreting Provider: Mitchell Zuniga MD on 09/11/2023 12:03 PM Torrey Lafleur MD DIAGNOSTIC IMAGING ORDERABLES documented in this encounter Visit Diagnoses Diagnosis Right hip pain Pain in joint, pelvic region and thigh documented in this encounter Care Teams Social Service Assistant Relationship Specialty Start Date End Date Faisal Richardson DO [address] [place] [address] PCP - General Family Medicine 11/27/22 documented as of this encounter
--- OUTSIDE RECORDS SUMMARY | 2024-07-28 00:58 | XMS_ITS | Encounter Summary ---
Author Organization [facility] Address [address] [facility] [place] [address] Care Team Providers Care Tapeman Name Role Phone Faisal Richardson DO Primary Care Provider Reason for Visit * Reason Onset Date Comments MEDICATION REFILL 09/14/2023 Encounter Details Date Type Department Care Team (Late st Contact Info) Description 09/14/2023 Refill [facility] - [facility] [place] [address] Fiordaliza Flores RN MEDICATION REFILL Social History Tobacco Use Types Packs/Day Years [...] and heating? Not hard at all 12/14/2022 [facility] [place] of Occupat ional Health - Occupational Stress [...] place to sleep or slept in a fpc (including now)? No 12/14/2022 Sex and Gender [...] Description 01/20/2025 10:00 AM CDT Office Visit [facility] - Orthopedic Surgery [address] [place] [phone] Torrey Lafleur MD [address] [facility] [address] [place] [address] documented as of this encounter Visit Diagnoses Not on filedocumented in this encounter Care Teams Tapeman Relationship Specialty Start Date End Date Faisal Richardson DO [address] [place] [phone] PCP - General Family Medicine 11/27/22 documented as of this encounter
--- OUTSIDE RECORDS SUMMARY | 2024-07-28 00:58 | XMS_ITS | Encounter Summary ---
Author Organization [facility] Address [address] [facility] [place] [address] Care Team Providers Care Podiatrist Assistant Name Role Phone Faisal Richardson DO Primary Care Provider [phone] Encounter Details Date Type Department Care Team (Late st Contact Info) Description 09/07/2023 Orders Only [facility] - [facility] Surgery [address] [place] [address] Torrey Lafleur MD [address] [facility] [address] [place] [address] Right hip pain Social History Tobacco Use Types Packs/Day Years [...] and heating? Not hard at all 12/14/2022 [facility] [place] of Occupat ional Health - Occupational Stress [...] Description 01/20/2025 10:00 AM CDT Office Visit [facility] - [facility] [address] [place] [phone] Torrey Lafleur MD [address] [facility] [address] [place] [address] documented as of this encounter Results * XR PELVIS W RIGHT HIP 2VW (09/11/2023 11:21 AM PSYCHIATRY INSTRUCTOR) Anatomical Region Laterality Modality Pelvis Radiographic Sabi ging 09/11/2023 11:5 1 AM PSYCHIATRY INSTRUCTOR Narrative 09/11/2023 12:03 PM PSYCHIATRY INSTRUCTOR PROCEDURE: ??XR PELVIS W RIGHT HIP 2VW, DATE/TIME OF EXAM: ??09/11/2023 11:21 AM, LOCATION ??[facility] INDICATION: M25.551: Pain in right hip PELVIS [...] 2VW, DATE/TIME OF EXAM: 1:21 AM, LOCATION [facility] INDICATION: M25.551: Pain in right hip PELVIS [...] this encounter Visit Diagnoses Diagnosis Right hip pain- Primary Pain in joint, pelvic region and thigh Right hip pain Pain in joint, pelvic region and thigh documented in this encounter Care Teams Podiatrist Assistant Relationship Specialty Start Date End Date Faisal Richardson DO [address] [place] [address] PCP - General Family Medicine 11/27/22 documented as of this encounter
--- OUTSIDE RECORDS SUMMARY | 2024-07-28 00:58 | XMS_ITS | Encounter Summary ---
Author Organization [facility] Address [address] [place] [address] Care Team Providers Care Pouncer Name Role Phone Debra Faisal BRO Primary Care Provider Reason for Visit * Auth/Cert (Routine) Specialty Diagnoses / Procedures Referred By Contac t Referred To Contact Referral ID Status Reason Start Date Expiration Date Visits Re quested Visits Authorized [id number] 1 1 Encounter Details Date Type Department Care Team (Late st Contact Info) Description 09/27/2023 10:48 AM AUTOMOTIVE UPHOLSTERER Anesthesia Event [facility] [address] [place] [address] Kip Ramirez MD [address] [place], [place] [id number] Segundo Zimmerman MD [address] [facility] ANESTHESIA DEPT [place], [place] [id number] Anesthesia Record Procedure Summary Procedure Name Responsible Anesthesiologist Anesthesia Start Time Anesthesia Stop Time REPEAT IRRIGATION AND DEBRIDEMENT RIGHT HIP, REMOVAL OF ANTIBIOTIC BEADS x20, PLACEMENT OF ANTIBIOTIC BEADS x20, WOUND VAC EXCHANGE RIGHT HIP (Right: Hip) Kip Ramirez MD 09/27/23 1048 09/27/23 1219 Events Date Time Event Comment 09/27/2023 1048 An Start 1048 An Start Data 1050 PT Reassessment 1051 Induction 1052 An Intubation 1105 Stop ABX 1116 Timeout Anesthesia part icipated in timeout at the time documented in the record by nursing. 1139 Handoff 1212 Extubation 1212 an stop data 1212 Electnc Sig This record is electronically signed by the providers listed under staff. 1219 An Stop Meds Name Total lidocaine 2% injection (20 mg/ml) 100 mg propofol 200mg/20mL injection 200 mg succinylcholine (ANECTINE) 100 mg/5 mL i njection 100 mg rocuronium 50mg/5mL injection 50 mg phenylephrine 1000 mcg/10mL injection 1, 600 mcg ondansetron 4 mg/2mL injection 4 mg ketorolac 30 mg/ml injection 30 mg cefoXITIN 1 g injection 2 g lactated ringers infusion 0 mL * Agents Name Exp. Sevoflurane Exp. Desflurane Exp. N2O O2 Air Insp. Sevoflurane Insp. Desflurane N2O * Blood No blood administrations on file. Lines, Drains, and Airways Type Details Placement Removal Peripheral IV Date: 09/24/23; Time : 1050; Orientation: Anterior, Distal, Left, Upper; Placed By: Marc Russell EMT-P; Tolerance: Well 09/24/23 1050 by Vanessa Russell EMT-P 09/27/23 172 by Chikis Negron, RN Negative Pressure Wound Therapy 09/24/23; 2126; Right; Hip; 10/04/23; 17409/24/232126 by Felipe Haque RN 10/04/23 174 by Generic, Auto Release ETT Date: 09/27/23; Time : 1052; Placed By: Kip Ramirez MD; Vent: easy mask; Induction: Standard IV; Blade Type: Video; Blade Size: 4; Laryngoscopy View: Grade 1 (full cords); Intubation Adjuncts: Stylet; Tube: Endotracheal Tube; Placement: Oral; Tube Type: Cuffed-inflated; Tube Size(mm): 8 MM; Depth of Insertion: 21 CM; Measured From: lips; Attempts: 1; Cuff Infated: Air; Cuff Vol(mL): 8 mL; Verified By: Direct visualization, Bilateral breath sounds, Chest Auscultation, CO2 Monitor 09/27/23 1052 by Kip Ramirez MD 09/27/23 1212 by Kip Ramirez MD Procedural Site (Incision) 09/27/23; 1117; Right; Hip; 10/04/23; 1744 09/27/23 1117 by oZe Walden 10/04/23 1744 by [employer], Auto Release documented in this encounter Social [...] and heating? Not hard at all 12/14/2022 [facility] - Occupational Stress [...] slept in a residential (including now)? No 12/14/2022 Sex and Gender [...] Progress Notes * Olya Olguin MD - 09/27/2023 1:58 PM CST ANESTHESIA POSTOP EVALUATION NOTE Procedure: REPEAT IRRIGATION AND DEBRIDEMENT RIGHT HIP, REMOVAL OF ANTIBIOTIC BEADS x20, PLACEMENT OF ANTIBIOTIC BEADS x20, WOUND VAC EXCHANGE RIGHT HIP (Right: Hip) Jose Rutledge is a 58 year old male Patient Vitals for the past 6 hrs: BP Temp Pulse Resp SpO2 Pain Rating Score #1 Pain Scale/Observation Pulse - (SPO2/Cuff) 09/27/23 0939 -- -- -- -- -- 9 N -- 09/27/23 1215 150/77 97.3 ??F (36.3 ??C) 88 (!) 6 92 % 0 N;B 81 bpm 09/27/23 1220 130/75 -- 77 22 91 % -- -- 78 bpm 09/27/23 1225 137/70 -- 71 15 98 % -- -- 71 bpm 09/27/23 1230 132/67 -- 71 14 99 % 0 N;B 71 bpm 09/27/23 1235 140/71 -- 71 13 99 % -- -- 72 bpm 09/27/23 1240 146/71 -- 72 13 99 % -- -- 72 bpm 09/27/23 1245 146/67 97.5 ??F (36.4 ??C) 70 13 -- 0 N;B 69 bpm 09/27/23 1250 148/72 -- 71 14 -- -- -- 69 bpm 09/27/23 1255 132/71 -- 69 15 -- -- -- -- 09/27/23 1300 143/79 -- 70 15 99 % 0 N;B 70 bpm Anesthesia Type: general ETT Pre-op Diagnosis Codes: [...] Care NOTABLE EVENTS: No notable events documented. MOTIVE UPHOLSTERER * Jordon NimcoSHANNAN-RUBBER COMPOUNDER SUPERVISOR - 09/26/2023 1:08 PM CST ANESTHESIA PREOPERATIVE EVALUATION NOTE Procedure: IRRIGATION AND DEBRIDEMENT HIP, WOUND CLOSURE VERSUS WOUND VAC EXCHANGE (Right: Hip) Vitals: No data found. LMP: No LMP [...] have been marked as taking for the 09/27/23 encounter (Anesthesia Event) with Segundo Zimmerman MD. No current facility-administered medications for this visit. Facility-Administered Medications Ordered in Other Visits Medication Dose Last Admin ??? *Hold/Avoid Medication ??? 0.9% NaCl 3 mL 3 mL at 09/26/23 0414 And ??? 0.9% NaCl 1-10 mL 10 mL at 09/24/23 1938 ??? acetaminophen 650 mg ??? amLODIPine 10 mg 10 mg at 09/26/23 0846 ??? carvedilol 25 mg 25 mg at 09/26/23 0845 ??? cefepime 2 g 2,000 mg at 09/26/23 1246 ??? cyclobenzaprine 10 mg 10 mg at 09/26/23 0846 ??? dextrose IV for hypoglycemia 12.5 g Or ??? dextrose IV for hypoglycemia 25 g Or ??? glucagon 1 mg ??? docusate sodium 100 mg 100 mg at 09/26/23 0846 ??? ferrous sulfate 325 mg 325 mg at 09/26/23 0846 ??? glucose (Diabetic Use) gel ??? HYDROmorphone 0.6 mg 0.6 mg at 09/26/23 1207 ??? insulin aspart 0-4 Units ??? insulin aspart 0-6 Units 2 Units at 09/25/23 1324 ??? iopamidol 100 mL at 09/24/23 1430 ??? naloxone 0.04 mg ??? ondansetron (disintegrating) 4 mg ??? ondansetron 4 mg ??? oxyCODONE-acetaminophen 1 tablet 1 tablet at 09/26/23 0846 ??? pantoprazole EC 40 mg 40 mg at 09/26/23 0845 ??? pregabalin 50 mg 50 mg at 09/26/23 0846 ??? prochlorperazine 5 mg ??? prochlorperazine 5 mg ??? rosuvastatin 40 mg 40 mg at 09/26/23 0633 ??? sertraline 200 mg 200 mg at 09/26/23 0846 ??? vancomycin 1,750 mg ??? vancomycin (VANCOCIN) IV dose per pharmacy Allergies: Allergies Allergen Reactions ??? Penicillins Angioedema [...] Not Prioritized ??? Closed left maxillary fracture ([facility]) 11/21/2022 Priority: Not Prioritized ??? H/O ischemic [...] ??? Sleep apnea uses cpap ??? Stroke ([facility]) 2021 balance residual ??? Type 2 diabetes mellitus without complications [place] Surgical History: Past Surgical History: Procedure Laterality [...] Repair Right ??? SHOULDER ARTHROPLASTY, TOTAL Left LEAD APPLICATIONS DEVELOPER Status: No LMP for male patient. unknown OB History No obstetric history on file. Covid Vaccine: Lab Results: Recent Labs Base Name 09/26/23 1140 [id number]* SPECIMENTYPE Cap Fingerstick Recent Labs Component [...] Labs Result Component Current Result Anion Gap 10 (09/25/2023) eGFR by CKD-EPI >90 (09/25/2023) MOTIVE UPHOLSTERER documented in this encounter Procedure Notes * Kip Ramirez MD - 09/27/2023 11:16 AM CSTAssociated Order(s): ETT Placement Endotracheal Tube Placement: Patient Location: OR. Intubation Event Date/Time: 09/27/2023 10:52 AM Procedure: intubation (08407). Procedure Section: Sedation: under general anesthesia. Indications for Airway Management: anesthesia Induction: standard IV Patient Position: sniffing Mask Ventilation: easy. Blade Type: Video Blade Size: 4 Laryngoscopy View: grade 1 (full cords) Intubation Adjuncts: stylet Tube: endotracheal tube Placement: oral Tube type: cuff - inflated Tube Size (MM): 8 Depth of Insertion (CM): 21 Measured From: lips Cuff volume (mL): 8 Cuff Inflated With: air Number of Attempts: 1. Placement Verified By: direct visualization, bilateral breath sounds, chest auscultation and CO2 monitor Dentition unchanged? Yes Difficult Airway? Yes. Technique: video laryngoscope Procedure Start Time: 09/27/2023 10:52 AM. Staff Section Anesthesia Provider: Kip Ramirez MD, Performed the procedure MOTIVE UPHOLSTERER documented in this encounter Miscellaneous Notes * Anesthesia Transfer of Care - Kip Ramirez MD - 09/27/2023 12:18 PM CST ANESTHESIA TRANSFER OF CARE NOTE Today's Date: 09/27/2023 Date of : 1965 Patient: Jose Rutledge Procedure(s): REPEAT IRRIGATION AND DEBRIDEMENT RIGHT HIP, REMOVAL OF ANTIBIOTIC BEADS x20, PLACEMENT OF ANTIBIOTIC BEADS x20, WOUND VAC EXCHANGE RIGHT HIP Surgeon(s): Primary: Torrey Lafleur MD Preop Diagnosis: Pre-op Diagnois: * Diagnosis unknown [R69] Pre-op Meds (From admission, onward) Start Stop Status Route Frequency Ordered 09/24/231999 *Hold/Avoid Medication 09/27/23 1959 Verified OTHER EVERY 12 HOURS ( and ) 09/24/23 1405 09/24/23 1625 0.9% NaCl injection 1-10 mL See Hyperspace for full Linked Orders Report. -- Dispensed IK PRN 09/24/23 1626 09/24/23 1700 0.9% NaCl injection 3 mL See Hyperspace for full Linked Orders Report. -- Dispensed IK EVERY 8 HOURS 09/24/23 1626 09/24/23 1626 acetaminophen (Tylenol) tablet 650 mg [...] 0.9% NaCl IV 50 mL IVPB -- Verified IV EVERY 8 HOURS 09/27/23 1002 09/27/23 1106 cefOXitin (Mefoxin) injection -- Sent IV PRN 09/27/23 1106 09/24/23 2100 cyclobenzaprine (Flexeril) tablet 10 mg Note to Pharmacy: OP sig: Take 1 (one) tablet by mouth 2 times daily -- Dispensed PO 2 TIMES DAILY 09/24/23 1604 09/24/23 [...] Dispensed PO 2 TIMES DAILY 09/24/23 1604 09/27/23 1300 enoxaparin (Lovenox) injection 40 mg -- Verified SC DAILY 09/27/23 1216 09/27/23 1214 fentaNYL (PF) (Sublimaze) injection 50 [...] -- Verified PO PRN 09/24/23 1624 09/27/23 1215 glycopyrrolate (Robinul) injection 0.2 mg 09/28/23 0014 Verified IV POST-OP ONCE 09/27/23 1214 09/27/23 1214 HYDROmorphone (Dilaudid) injection 0.2 mg -- Verified IV EVERY 15 MIN PRN 09/27/23 1214 09/27/23 1214 HYDROmorphone (Dilaudid) injection 0.5 mg -- Verified IV EVERY 5 MIN PRN 09/27/23 1214 [...] Units -- Verified IV PRN 09/27/23 1214 09/24/23 1404 iopamidol (Isovue 370) 76 % contrast 09/26/23 1403 Dispensed IV CONTRAST ONCE 09/24/23 1405 09/27/23 1126 ketorolac (Toradol) injection -- Sent IV PRN 09/27/23 1126 09/27/23 1051 lactated ringers infusion -- Sent IV CONTINUOUS PRN 09/27/23 1110 09/27/23 1215 lactated ringers infusion -- Verified IV CONTINUOUS 09/27/23 1214 09/27/23 1056 lactulose (Chronulac) solution 30 g -- Verified PO DAILY PRN 09/27/23 1056 09/27/23 1051 lidocaine HCl (PF) (Xylocaine MPF) 2 % injection -- Sent IV PRN 09/27/23 1106 09/24/23 2141 naloxone (Narcan) injection 0.04 mg -- Verified IV POST-OP MULTIPLE 09/24/23 2141 09/27/23 1214 naloxone (Narcan) injection 0.04 mg -- Verified IV POST-OP MULTIPLE 09/27/23 1214 09/24/23 1626 ondansetron (disintegrating) (Zofran ODT) tablet 4 mg -- Verified PO EVERY 6 HOURS PRN 09/24/23 1626 09/27/23 1126 ondansetron (Zofran) injection -- Sent IV PRN 09/27/23 1126 09/24/23 1626 ondansetron (Zofran) injection 4 mg [...] Ulcer -- Dispensed PO DAILY 09/24/23 1604 09/27/23 1120 phenylephrine 100 mcg/mL injection -- Sent IV PRN 09/27/23 1121 09/24/23 2100 pregabalin (Lyrica) capsule 50 mg [...] IM EVERY 6 HOURS PRN 09/24/23 1626 09/27/23 1051 propofol (Diprivan) injection -- Sent IV PRN 09/27/23 1106 09/27/23 1055 rocuronium (Zemuron) injection -- Sent IV PRN 09/27/23 1109 09/24/23 1645 rosuvastatin (Crestor) tablet 40 mg Note to Pharmacy: OP sig: Take 2 (two) tablets by mouth every morning -- Dispensed PO EVERY MORNING 09/24/23 1604 09/24/23 1830 sertraline (Zoloft) tablet 200 mg Note to Pharmacy: OP sig: Take 1 (one) tablet by mouth once daily -- Dispensed PO DAILY 09/24/23 1614 09/27/23 1051 succinylcholine (Anectine) injection -- Sent IV PRN 09/27/23 1107 Post-op Diagnosis: * Diagnosis unknown [R69] . Allergies Allergen Reactions ??? Penicillins Angioedema Vitals: Patient Vitals for the past 3 hrs: Pain Rating Score #1 09/27/23 0939 9 Lines, Drains, and Airways Type Details Placement Removal Peripheral IV Date: 09/24/23; Time: 1050; Orientation: Anterior, Distal, Left, Upper; Location: Arm; Placed By: Marc Russell EMT-P; Gauge: 20 Gauge; Locals: None; Tolerance: Well 09/24/231049 by Vanessa Russell EMT-P Negative Pressure Wound Therapy 09/24/23; 2126; Right; Hip 09/24/232126 by Felipe Haque RN ETT Date: 09/27/23; Time: 1052; Placed By: Kip Ramirez MD; Vent: easy mask; Induction: Standard IV; Blade Type: Video; Blade Size: 4; Laryngoscopy View: Grade 1 (full cords); Intubation Adjuncts: Stylet; Tube: Endotracheal Tube; Placement: Oral; Tube Type: Cuffed-inflated; Tube Size(mm): 8 MM; Depth of Insertion: 21 CM; Measured From: lips; Attempts: 1; Cuff Infated: Air; Cuff Vol(mL): 8 mL; Verified By: Direct visualization, Bilateral breath sounds, Chest Auscultation, CO2 Monitor 09/27/23 105 by Kip Ramirez MD 09/27/23 1212 by Kip Ramirez MD Intraprocedure I/O Totals None Patient Transfer Location: PACU Complications: None Handoff Given? Yes Checklist or [...] understanding of report from the receiving PACUteam. Kip Ramirez MD MOTIVE UPHOLSTERER documented in this encounter Plan of Treatment Upcoming Encounters Date Type Department Care Team (Late st Contact Info) Description 01/20/2025 10:00 AM CDT Office Visit [facility] - Orthopedic Surgery [address] [place] [address] Torrey Lafleur MD [address] [facility] [address] [place] [address] documented as of this encounter Procedures Procedure Name Priority Date/Time Associated Diagnosis Comments ENDOTRACHEAL TUBE NOTE Routine 09/27/2023 11:16 AM AUTOMOTIVE UPHOLSTERER documented in this encounter Results * ETT LINE PERFORMABLE (09/27/2023 11:16 AM AUTOMOTIVE UPHOLSTERER) Narrative Kip Ramirez MD - 09/27/2023 11:16 AM AUTOMOTIVE UPHOLSTERER Kip Ramirez MD ? 09/27/2023 11:17 AM Endotracheal Tube Placement: ? Patient Location: OR. Intubation Event Date/Time: ??09/27/2023 10:52 AM Procedure: intubation (21373). Procedure Section: ?? Sedation: under general anesthesia. [...] procedure Kip Ramirez MD GENERAL ANESTHESIA ORDERABLES documented in this encounter Visit Diagnoses Not on filedocumented in this encounter Administered Medications Inactive Administered Medications - up to 3 most recent administrations Medication Order MAR Action Action Date Dose Rate Site cefOXitin (Mefoxin) injection Intravenous, PRN, Starting on Hetal 09/27/23 at 1106, Until Hetal 09/27/23 at 1219, Anesthesia Intra-op $ Given 09/27/2023 11:06 AM AUTOMOTIVE UPHOLSTERER 2 g ketorolac (Toradol) injection Intravenous, PRN, Starting on Hetal 09/27/23 at 1126, Until Hetal 09/27/23 at 1219, Anesthesia Intra-op $ Given 09/27/2023 11:26 AM AUTOMOTIVE UPHOLSTERER 30 mg lactated ringers infusion Intravenous, CONTINUOUS PRN, Starting on Hetal 09/27/23 at 1051, Until Hetal 09/27/23 at 1219, Anesthesia Intra-op $ New Bag/Syringe 09/27/2023 10:51 AM AUTOMOTIVE UPHOLSTERER lidocaine HCl (PF) (Xylocaine MPF) 2 % injection Intravenous, PRN, Starting on Hetal 09/27/23 at 1051, Until Hetal 09/27/23 at 1219, Anesthesia Intra-op $ Given 09/27/2023 10:51 AM AUTOMOTIVE UPHOLSTERER 100 mg ondansetron (Zofran) injection Intravenous, PRN, Starting on Hetal 09/27/23 at 1126, Until Hetal 09/27/23 at 1219, Anesthesia Intra-op $ Given 09/27/2023 11:26 AM AUTOMOTIVE UPHOLSTERER 4 mg phenylephrine 100 mcg/mL injection Intravenous, PRN, Starting on Hetal 09/27/23 at 1120, Until Hetal 09/27/23 at 1219, Anesthesia Intra-op $ Given 09/27/2023 11:51 AM AUTOMOTIVE UPHOLSTERER 300 mcg $ Given 09/27/2023 11:41 AM AUTOMOTIVE UPHOLSTERER 300 mcg $ Given 09/27/2023 11:38 AM AUTOMOTIVE UPHOLSTERER 200 mcg propofol (Diprivan) injection Intravenous, PRN, Starting on Hetal 09/27/23 at 1051, Until Hetal 09/27/23 at 1219, Anesthesia Intra-op $ Given 09/27/2023 10:51 AM AUTOMOTIVE UPHOLSTERER 200 mg rocuronium (Zemuron) injection Intravenous, PRN, Starting on Hetal 09/27/23 at 1055, Until Hetal 09/27/23 at 1219, Anesthesia Intra-op $ Given 09/27/2023 11:57 AM AUTOMOTIVE UPHOLSTERER 10 mg $ Given 09/27/2023 11:30 AM AUTOMOTIVE UPHOLSTERER 10 mg $ Given 09/27/2023 10:55 AM AUTOMOTIVE UPHOLSTERER 30 mg succinylcholine (Anectine) injection Intravenous, PRN, Starting on Hetal 09/27/23 at 1051, Until Hetal 09/27/23 at 1219, Anesthesia Intra-op $ Given 09/27/2023 10:51 AM AUTOMOTIVE UPHOLSTERER 100 mg documented in this encounter Care Teams Pouncer Relationship Specialty Start Date End Date Faisal Richardson DO [address] [place] [id number] PCP - General Family Medicine 11/27/22 documented as of this encounter
--- OUTSIDE RECORDS SUMMARY | 2024-07-28 00:59 | XMS_ITS | Encounter Summary ---
Author Organization [facility] Address [address] [place] [address] Care Team Providers Care Accounts Receivable Specialist Name Role Phone Faisal Richardson DO Primary Care Provider [phone] Reason for Referral * Consultation (Routine) - Closed Specialty Diagnoses / Procedures Referred By Contac t Referred To Contact Diagnoses S/P revision of total hip Torrey Lafleur MD [address] [place] [address] Bao Mcfadden MD [address] [place] [id number] Referral ID Status Reason Start Date Expiration Date V isits Requested Visits Authorized [id number] Closed Specialty Services Required 07/10/2023 07/09/2024 1 1 E JOBBER Reason for Visit * Reason Comments Follow-up R hip Encounter Details Date Type Department Care Team (Late st Contact Info) Description 07/10/2023 10:00 AM PIECE JOBBER Office Visit [facility] - Orthopedic Surgery [address] [place] [phone] Torrey Lafleur MD [address] [place] [address] [address] [place], [place] [phone] S/P revision of total hip (Primary Dx) [...] and heating? Not hard at all 12/14/2022 [facility] Occup[facility] ional Health - Occupational Stress [...] Sign Reading Time Taken Comments Blood Pressure - - Pulse - - Temperature - - Respiratory Rate - - Oxygen Saturation - - Inhaled Oxygen Concentration - - Weight 124.7 kg (275 lb) 07/10/2023 9:56 AM PIECE JOBBER Height 182.9 cm (6') 07/10/2023 9:56 AM PIECE JOBBER Body Mass Index 37.3 07/10/2023 9:56 AM PIECE JOBBER documented in this encounter Functional Status Functional [...] Progress Notes * Torrey Lafleur MD - 07/10/2023 10:00 AM CST Patient returns for follow-up 7 months after revision right total hip arthroplasty. Overall patient is doing well but still complains of some groin and thigh pain when he first gets up. Denies fevers chills or wound problems. No mechanical symptoms or dislocations. Continuing home therapy exercises. He is not taking any pain medication just Tylenol. He otherwise feels good overall other than this persistent groin pain/thigh pain Current Outpatient Medications on File Prior to Visit Medication Sig Dispense Refill ??? amLODIPine (Norvasc) 5 MG tablet Take 1 (one) tablet by mouth once daily ??? aspirin (Aspirin 81) 81 MG chew tablet Take 1 (one) tablet by mouth 2 times daily 70 tablet 0 ??? Bacillus Coagulans-Inulin (Probiotic) [...] MG/0.5ML injection ??? ergocalciferol (Drisdol) 1.25 MG (46085 UT) capsule Take 1 (one) capsule by [...] ??? Sleep apnea uses cpap ??? Stroke (CMS/HCC) 2021 balance residual ??? Type 2 diabetes mellitus without complications (CMS/HCC) Past Surgical History: Procedure Laterality Date ??? [...] continue physical therapy exercises and we discussed trying an injection into the iliopsoas tendon and he would like to try this. We also discussed arthroscopic release if he gets better but it recurs. We discussed antibiotic prophylaxis before invasive procedures. Follow-up in 12 months. We discussed follow-up sooner if not improving. We discussed physical therapy. We discussed anti-inflammatories but he does take Plavix that he is trying to avoid those. Patient understood the treatment plan and all questions were answered. We will call him if the inflammatory markers a re elevated. E JOBBER documented in this encounter Plan of Treatment Upcoming Encounters Date Type Department Care Team (Late st Contact Info) Description 01/20/2025 10:00 AM CDT Office Visit [facility] - Orthopedic Surgery [address] [place] [address] Torrey Lafleur MD [address] [address] Scheduled Referrals Name Type Priority Associated Diagnoses Orde r Schedule AMB REFERRAL TO PAIN CLINIC Outpatient Referral Routine S/P revision of total hip Ordered: 07/10/2023 documented as of this encounter Visit Diagnoses Diagnosis S/P revision of total hip- Primary Hip joint replacement by other means documented in this encounter Care Teams Accounts Receivable Specialist Relationship Specialty Start Date End Date Faisal Richardson DO [address] [place] [phone] PCP - General Family Medicine 11/27/22 documented as of this encounter
--- OUTSIDE RECORDS SUMMARY | 2024-07-28 00:59 | XMS_ITS | Encounter Summary ---
Author Organization [facility] Address [address] [place] [address] Care Team Providers Care Vice President Financial Name Role Phone Faisal Richardson DO Primary Care Provider [phone] Reason for Visit * Consultation (Routine) - Closed Specialty Diagnoses / Procedures Referred By Contac t Referred To Contact Pain Management Diagnoses S/P total right hip arthroplasty Right leg pain Lefty Diamond MD [address] [place] [address] [facility] Pain Management [address] [place] [address] Referral ID Status Reason Start Date Expiration Date V isits Requested Visits Authorized [id number] Closed Specialty Services Required 07/31/2023 10/30/2023 1 1 Encounter Details Date Type Department Care Team (Latest Contact Info) Description 08/29/2023 11:23 AM CHAPLAIN RESIDENT - 08/29/2023 11:59 PM [facility] Hospital Encounter [facility] Health Pain Care [address] [place] [address] Lefty Diamond MD [address] [place] [address] Discharge Disposition: Home or Self Care Social History Tobacco Use Types Packs/Day Years Used Date Smoking Tobacco: Never Smokeless Tobacco: Never Alcohol Use Standard Drinks/Week Comments Not Currently 0 (1 standard drink = 0.6 oz pur e alcohol) Overall Financial Resource Strain (CARDIA) Answe r Date Recorded How hard is it for you to pa bernadette for the very basics like food, housing, medical care, and heating? Not hard at all 12/14/2022 [facility] [place] [facility] - Occupational Stress [...] place to sleep or slept in a jail (including now)? No 12/14/2022 Sex and Gender Information Value Date Recorded Sex Assigned at Not on file Gender Identity Not on file Sexual Orientation Not on file documented as of this encounter Last Filed Vital Signs Vital Sign Reading Time Taken Comments Blood Pressure 161/78 08/29/2023 11:51 AM CHAPLAIN RESIDENT Pulse 77 08/29/2023 11:51 AM CHAPLAIN RESIDENT Temperature 36.5 ??C (97.7 ??F) 08/29/2023 11:[address] Respiratory Rate 18 08/29/2023 11:51 AM CHAPLAIN RESIDENT Oxygen Saturation - - Inhaled Oxygen Concentration - - Weight 124.7 kg (275 lb) 08/29/2023 11:51 AM CHAPLAIN RESIDENT Height 182.9 cm (6') 08/29/2023 11:51 AM CHAPLAIN RESIDENT Body Mass Index 37.3 08/29/2023 11:51 AM CHAPLAIN RESIDENT documented in this encounter Functional Status Functional [...] 12/14/2022 documented as of this encounter Discharge Instructions * Patient Instructions* Katya Lewis RN - 08/29/2023 11:40 AM [facility] RESIDENT PAIN MANAGEMENT CENTER DISCHARGE INSTRUCTIONS for: Jose Rutledge You had the following procedure: Right iliopsoas bursa steroid injection Special Instructions: No soaking in water for 48 hours. This includes tub baths, swimming pools or hot-tubs. Use ice pack today, 15 minutes out of every hour until bedtime as needed. In the morning use a heating pad on low or warm shower, as needed. Then use ice or heat whichever works best for you. Your pain may become worse during the next 24 to 48 hours. The injection may not take effect for 1 to 7 days with the average of about 72 hours. If you have fever, chills, severe headache, or any other problems, please call [phone] or the after hours answering service at [phone] and tell them your physician's name. The exchange willalert the physician motion picture set grip. May remove band-aid in the morning on August 30, 2022. If you are diabetic, your blood sugar can elevate for the next several days due to the steroid you received with your injection. This is normal. Contact your primary care physician for medication adjustments as needed. If you take blood thinners you may resume your dose beginning after your injection today. If you are prone to swelling, the steroid may cause this to increase for the next few days. Call your primary care physician if it is significant. You may develop a red, flushed face. This can also be caused by the steroid and is normal. It should dissipate over the next several days. Continue all of your current medications as prescribed by your physician. You will be contacted by a Pain Center staff member in the next 5 - 7 days to see how you are doing. If you received sedation: Do NOT make any important decisions such as signing any legal papers for 24 hours. Do NOT drink any alcoholic beverages, including beer for [address] a car or operate machinery or power tools for 24 hours. For Your Next Visit: Depends on relief Please do the following:arrive 15 to 30 minutes prior to your appointment time for your admission, take your medications with a sip of water at your normal times, and if you are diabetic or on blood thinners(i.e. Plavix, Coumadin) please check with your physician for special instructions . Please notify us prior to your next scheduled injection if you have had a recent fever, diagnosed infection, or generalized illness. Please note that any medication refill request requires 72 hours to process and will only be managed during normal business hours. Our office hours are Sunday through Sunday from 8:30am to 4:00pm. [facility] closed weekends and holidays. IF YOU FEEL YOU ARE EXPERIENCING A MEDICAL EMERGENCY, PLEASE CALL 911 OR GO TO THE NEAREST EMERGENCY ROOM. These instructions have been reviewed with me and my questions have been answered. Patient verbalized understanding with above instructions. 08/29/2023 LAIN RESIDENT documented in this encounter Medications at Time [...] MG/0.5ML injection 10/17/2021 ergocalciferol (Drisdol) 1.25 MG (46130 UT) capsule Take 1 (one) capsule by mouth 05/02/2022 ferrous sulfate 325 (65 FE) MG tablet Take 1 (one) tablet by mouth once daily metFORMIN (Glucophage) 1000 MG tablet Take 1 (one) tablet by mouth 2 times daily 03/05/2022 Multiple Vitamins-Minerals (One-A-Day Mens Health Formula) TABS 08/06/2021 pantoprazole EC (Protonix) 40 MG tabletIndications:Gastri c Ulcer Take 1 (one) tablet by mouth [...] 2 times daily 70 tablet 12/16/2022 10/04/2023 betamethasone dipropionate (Diprosone) 0.05 % ointment as needed 10/10/2021 10/04/2023 cloNIDine (Catapres) 0.1 MG tablet Take 1 (one) tablet by mouth 2 times daily 03/05/2022 10/04/2023 losartan-hydroCHLOROthia zide (Hyzaar) 100-12.5 MG tablet Take 1 (one) tablet by mouth every morning 10/17/2021 10/04/2023 documented as of this encounter Progress Notes * Sonia Rodriguez RN - 08/29/2023 11:59 PM CST 09/12/23 1720 Pain Management Post-procedure questions How are you doing since procedure? reports no relief afte rightiliopsoas bursa injection. had OV with Dr Lafleur for follow up Have you gotten pain relief since your procedure? no Other concerns? No other concerns exist Was pt. referred to physician? No Were you pleased with your service? yes Phone Call Status Call status Success LAIN RESIDENT documented in this encounter H&P Notes * Lefty Diamond MD - 08/29/2023 12:09 PM CST Subjective: 08/29/2023 HPI: Jose Rutledge is a 58 year old White/ male referred by Lefty Diamond MD (PCP is Faisal Richardson DO) Allergies Allergen Reactions ??? Penicillins Angioedema Past Medical History: Diagnosis Date ??? Aortic stenosis mod-sev on 2022 echo ??? CAD (coronary artery disease) ??? High blood pressure ??? LVH (left ventricular hypertrophy) ??? Mixed hyperlipidemia ??? Restless leg syndrome ??? Sleep apnea uses cpap ??? Stroke ([facility] 2021 balance residual ??? Type 2 diabetes mellitus without complications ([facility]) Past Surgical History: Procedure Laterality Date ??? [...] Hypertension Mother ??? Cancer Father rectal; Status: Current Outpatient Medications Medication Sig Dispense Refill [...] MG/0.5ML injection ??? ergocalciferol (Drisdol) 1.25 MG (23477 UT) capsule Take 1 (one) capsule by [...] 1 (one) tablet by mouth once daily Current Facility-Administered Medications Medication Dose Route Frequency Provider Last Rate Last Admin ??? 0.9% NaCl infusion ADS Med ??? ceFAZolin (Ancef) 2 g injection ADS Med ??? clindamycin (Cleocin) 900 mg in 50 mL D5W IVPB 900 mg Intravenous pre- Procedure once Lefty Diamond MD 100 mL/hr at 08/29/23 1202 900 mg at 08/29/23 1202 ??? dexAMETHasone (Decadron) 10 mg/ml PF injection ADS Med ??? dexAMETHasone Sod Phosphate PF injection 10 mg 10 mg Epidural intra- Procedure multiple Lefty Diamond MD ??? lidocaine (Xylocaine PF) 1% injection ADS Med ??? lidocaine PF (Xylocaine MPF) 1 % injection Infiltration intra-Procedure multiple Lefty Diamond MD Blood Thinning Medications reviewed (such as Plavix, Coumadin, Warfarin, Aggrenox, Heparin, or Aspirin): Social History Socioeconomic History ??? Marital status: [...] No Stress: No Stress Concern Present (12/14/2022) [facility] [place] [facility] - Occupational Stress Questionnaire ??? Feeling of Stress : Not at all Housing Stability: Low Risk (12/14/2022) Housing Stability Vital Sign ??? Unable to Pay for Housing in the Last Year: No ??? Number of Places Lived in the Last Year: 1 ??? Unstable Housing in the Last Year: No REVIEW OF SYSTEMS: General: Denies fever, eating and drinking well. Eyes: No tearing or discharge reported. ENT: Denies runny nose or ear pain. Cardiac: Denies chest pain, palpitations, orthoponea, edema Pulmonary: Denies any cough, SOB, or difficulty breathing. Gastro: Denies nausea, vomiting, diarrhea or abdominal pain. : Reports normal urine output with no c/o pain or discomfort. Skin: Denies itching, rashes or other lesions. Endocrine: Denies Diabetes, Thyroid disease Neuro: Denies Seizures, TIAs, Hx stroke, weakness,numbness Psych: Denies Depression, Anxiety, History of drug abuse or addiction EXAM: BP 161/78 Pulse 77 Temp 97.7 ??F (36.5 ??C) Resp 18 Ht 1.829 m (6') Wt 124.7 kg (275 lb) General appearance: alert, cooperative, no distress Skin: no rashes or other abnormalities are noted Eyes: sclera and conjunctiva clear, EOMI lids normal Ears: canals clear hearing intact to voice Nose: nares open; no septal deviation is noted Throat: no mucous membrane abnormalities Airway adequate for sedation Neck: range of motion is grossly normal Lungs: breath sounds normal Abdomen: soft without guarding, non-tender Heart: regular rhythm, normal Circulation: adequate perfusion grossly Joints: ranges of motion appear normal Neuro: Full strength and sensation grossly Assessment: Iliopsoas burstis Plan: Proceed with procedure as planned as in Consent which is reviewed with patient and signed Then the patient was marked in preop area Sedation explained to the patient ASA 2 Airway adequate for sedation Mallimpati scare appropriate for sedation Explained procedure Questions elicited and answered I examined the patient independantly from the resident. I have reviewed the labs and notes that arepertinent to the patient. I have discussed the plan with the patient and/or family. I have discussed the case with the resident and ask the you refer to their notes for details. After review of theirnotes and our discussion, if there are any additions, they will follow.I was present , directed, and participated in this evaluation / procedure. I agree with diagnosis and treatment as stated above. Lefty Diamond MD @ 08/29/2023 12:09 PM LAIN RESIDENT documented in this encounter Procedure Notes * Lefty Diamond MD - 08/29/2023 1:28 PM CSTAssociated Order(s): PAIN MANAGEMENT PROCEDURE TIME 08/29/2023 Fluoroscopically Guided and ultrasound guided right iliopsoas Bursa Injection Dx: M16.10 - Osteoarthritis Hip Consent: The patient was identified in the holding area and the operative permit was explained and signed. Ihave discussed with the patient the risks, benefits, side effects and complications of a fluoroscopically guided hip iliopsoas bursa injection. I have answered the patient's questions regarding the procedure and have given the patient the opportunity to refuse the procedure. I also have discussed alternative methods of treatment. The patientstated understanding of the procedure and wished to proceed with a fluoroscopically guided injection. Monitoring: The patient was taken to the fluoroscopic suite and placed on a C-arm table in the supine position.Noninvasive blood pressure, pulse oximetry, and an EKG tracing were used to monitor the patient continuously throughout the procedure. A nurse was in attendance for the duration of the procedure to carefully monitor the patient. Please refer to the nursing record for vital sign documentation and for any doses of sedatives and medications. I was present and gave the order for any medications givento the patient. Preparation: A sterile Chloroprep preparation and then a sterile drape were applied to the anterolateral groin and hip area. the p[atient received 2 grams of IV ancef 30 minutes prior to procedure Procedure: The right iliopsoas bursa injection was performed Using fluoroscopic guidance, a 22 gauge 7 inch needle was carefully guided into approximation with the iliopsoas bursa Ultrasound confirmed position medial to the hip hardware care was taken to avoid contact with the hardware nd 0.5 cc of Omnipaque (240mg/cc) was injected. Bursa spread was confirmed under direct fluoroscopy. There were no signs of intravascular injection with careful aspiration of the needle. A preservative free solution of 10 mg dexamethasone and 5 cc 1 % lidocaine was injected into the iliopsoas bursa The needle was removed intact. The patient tolerated the procedure well and there were no complications. Recovery: The patient was taken to the recovery area where they remained in stable condition. Postprocedure instructions were given to the patient and a follow up appointment was confirmed. The patient was also discharged with information on how to reach the clinic or motion picture set grip physician at anytime for questions or complaints LAIN RESIDENT documented in this encounter Plan of Treatment Upcoming Encounters Date Type Department Care Team (Late st Contact Info) Description 01/20/2025 10:00 AM CDT Office Visit [facility] - Orthopedic Surgery [address] [place] [address] Torrey Lafleur MD [address] [address] documented as of this encounter Procedures Procedure Name Priority Date/Time Associated Diagnosis Comments PAIN MANAGEMENT PROCEDURE TIME Routine 08/29/2023 12:23 PM CHAPLAIN RESIDENT Arthritis of hip documented in this encounter Results * PAIN MANAGEMENT PROCEDURE TIME (08/29/2023 12:23 PM CHAPLAIN RESIDENT) Anatomical Region Laterality Modality Radio Fluoroscop y Narrative 08/29/2023 1:28 PM CHAPLAIN RESIDENT Lefty Diamond MD ? 08/29/2023 ??1:31 PM [...] on how to reach the clinic or motion picture set grip physician at anytime for questions or complaints Lefty Diamond MD DIAGNOSTIC IMAGING O RDERABLES documented in this encounter Visit Diagnoses Diagnosis Arthritis of hip Unspecified arthropathy, pelvic region and thigh documented in this encounter Administered Medications Inactive Administered Medications - up to 3 most recent administrations Medication Order MAR Action Action Date Dose Rate Site clindamycin (Cleocin) 900 mg in 50 mL D5W IVPB 900 mg, at 100 mL/hr, Intravenous, PRE-PROCEDURE ONCE, 1 dose, On Sun08/29/23 at 1145, Initiate within 30 minutes prior to procedure., Indication for anti-infective therapy: Surgical prophylaxis $ New Bag/Syringe 08/29/2023 12:02 PM CHAPLAIN RESIDENT 900 mg 100 mL/hr dexAMETHasone (Decadron) 10 mg/ml PF injection ADS Med 1 dose, Starting on Sun08/29/23 at 1133, Until Sun08/29/23 at 1215, Created by cabinet override dexAMETHasone Sod Phosphate PF injection 10 mg 10 mg, Intramuscular, INTRA-PROCEDURE MULTIPLE, Starting on Sun08/29/23 at 1214, Until Hetal 08/30/23 at 0142, Administer per physician direction $ Given 08/29/2023 12:15 PM CHAPLAIN RESIDENT 10 mg Other see comments iopamidol (Isovue M 200) 41 % contrast Other, CONTRAST ONCE, Starting on Sun08/29/23 at 1216, Until Hetal 08/30/23 at 0142 $ Given - Contrast 08/29/2023 12:17 PM CHAPLAIN RESIDENT 5 mL Right Hip lidocaine (Xylocaine PF) 1% injection ADS Med 1 dose, Starting on Sun08/29/23 at 1133, Until Sun08/29/23 at 1213, Created by cabinet override lidocaine PF (Xylocaine MPF) 1 % injection Infiltration, INTRA-PROCEDURE MULTIPLE, Starting on Sun08/29/23 at 1132, Until Hetal 08/30/23 at 0142, Administer per physician direction. $ Given 08/29/2023 12:13 PM CHAPLAIN RESIDENT 100 mg Right Hip documented in this encounter Care Teams Vice President Financial Relationship Specialty Start Date End Date Faisal Richardson DO [address] [place] [id number] PCP - General Family Medicine 11/27/22 documented as of this encounter
--- OUTSIDE RECORDS SUMMARY | 2024-07-28 00:59 | XMS_ITS | Encounter Summary ---
Author Organization [facility] Address [address] [facility] [place] [address] Care Team Providers Care Director Of Math Name Role Phone Faisal Richardson DO Primary Care Provider [phone] Encounter Details Date Type Department Care Team (Latest Contact Info) Description 04/04/2023 Travel Social History Tobacco Use Types Packs/Day [...] and heating? Not hard at all 12/14/2022 [facility] Occup[facility] ional Health - Occupational Stress [...] place to sleep or slept in a long-term (including now)? No 12/14/2022 Sex and Gender [...] Visit [facility] - Orthopedic Surgery [facility] [place] [phone] [place] [address] [place] [address] documented as of this encounter Visit Diagnoses Not on filedocumented in this encounter Care Teams Director Of Math Relationship Specialty Start Date End Date Faisal Richardson DO [address] [place] [address] PCP - General Family Medicine 11/27/22 documented as of this encounter
--- OUTSIDE RECORDS SUMMARY | 2024-07-28 00:59 | XMS_ITS | Encounter Summary ---
Author Organization [facility] Address [address] [facility] [place] [address] Care Team Providers Care Runner Man Name Role Phone Faisal Richardson DO Primary Care Provider [phone] Encounter Details Date Type Department Care Team (Latest Contact Info) Description 01/02/2023 Travel Social History Tobacco Use Types Packs/Day [...] and heating? Not hard at all 12/14/2022 [facility] Occupat ional Health - Occupational Stress [...] place to sleep or slept in a care home (including now)? No 12/14/2022 Sex and Gender Information Value Date Recorded Sex Assigned at Not on file Gender Identity Not on file Sexual Orientation Not on file COVID-19 Exposure Response Date Recorded In the last 10 days, have yo u been in contact with someone who was confirmed or suspected to have Coronavirus/COVID-19? No / Unsure 01/02/2023 8:35 AM CDT documented as of this encounter Functional Status [...] [facility] [address] [place] [phone] Torrey Lafleur MD [address] [facility] [address] [place] [address] documented as of this encounter Visit Diagnoses Not on filedocumented in this encounter Care Teams Runner Man Relationship Specialty Start Date End Date Faisal Richardson DO [address] [place] [address] PCP - General Family Medicine 11/27/22 documented as of this encounter
--- OUTSIDE RECORDS SUMMARY | 2024-07-28 00:59 | XMS_ITS | Encounter Summary ---
Author Organization [facility] Address [address] [place] [address] Care Team Providers Care Referral And Information Aide Name Role Phone Faisal Richardson DO Primary Care Provider [phone] Encounter Details Date Type Department Care Team (Latest Contact Info) Description 07/12/2023 Travel Social History Tobacco Use Types Packs/Day [...] and heating? Not hard at all 12/14/2022 [facility] Occupat ional Health - Occupational Stress [...] slept in a prison (including now)? No 12/14/2022 Sex and Gender [...] Visit [facility] - [facility] [place] [phone] [place] [address] [place] [address] documented as of this encounter Visit Diagnoses Not on filedocumented in this encounter Care Teams Referral And Information Aide Relationship Specialty Start Date End Date Faisal Richardson DO [address] [place] [id number] PCP - General Family Medicine 11/27/22 documented as of this encounter
--- OUTSIDE RECORDS SUMMARY | 2024-07-28 00:59 | XMS_ITS | Encounter Summary ---
Author Organization [facility] Address [address] [place] [address] Care Team Providers Care Sewer Tapper Name Role Phone Faisal Richardson DO Primary Care Provider [phone] Encounter Details Date Type Department Care Team (Latest Contact Info) Description 07/10/2023 9:11 AM TRACE CLERK - 07/10/2023 11:59 PM [facility] [[email or web address] Hospital Encounter [facility] [address], [address] [place] [address] Torrey Lafleur MD [address] [place], [place] [id number] Discharge Disposition: Home or Self Care Social [...] and heating? Not hard at all 12/14/2022 [facility] [place] [facility] - Occupational Stress [...] slept in a assisted (including now)? No 12/14/2022 Sex and Gender [...] MG/0.5ML injection 10/17/2021 ergocalciferol (Drisdol) 1.25 MG (92913 UT) capsule Take 1 (one) capsule by [...] [facility] [address] [place] [address] Torrey Lafleur MD [address] [place] [address] documented as of this encounter Procedures Procedure Name Priority Date/Time Associated Diagnosis Comments XR PELVIS W RIGHT HIP 2VW Routine 07/10/2023 9:14 AM TRACE CLERK S/P revision of total hip documented in this encounter Results * XR PELVIS W RIGHT HIP 2VW (07/10/2023 9:14 AM TRACE CLERK) Anatomical Region Laterality Modality Pelvis Radiographic Sabi ging 07/10/2023 10:2 5 AM TRACE CLERK Impressions 07/10/2023 10:27 AM TRACE CLERK IMPRESSION: The component parts of the right hip arthroplasty device remain in satisfactory alignment and positioning without evidence of fracture, dislocation, prosthetic loosening or bony destructive process. > Interpreting Provider: Shiv Diane MD on 07/10/2023 10:27 AM Narrative 07/10/2023 10:27 AM TRACE CLERK PROCEDURE: ??XR PELVIS W RIGHT HIP 2VW DATE/TIME OF EXAM: ??07/10/2023 9:14 AM CLINICAL INFORMATION: None relevant/not provided if blank. Indication: Z96.649: Presence of unspecified artificial hip joint Additional History: COMPARISON: AP pelvis and right hip study dated 04/04/2023 TECHNIQUE: FINDINGS: AP view of the pelvis with additional AP and frog-lateral views of the right hip were obtained. The upper pelvis was excluded from the [id number]. The visualized lower pelvic region appears intact. Left femoral head maintains anatomic relationship to the left acetabulum On the right the component parts of the right hip arthroplasty device and intramedullary mayte and single cerclage wire appear in relatively unchanged alignment and positioning. No evidence of fracture, dislocation, prosthetic loosening or bony destructive process identified. Mild degree of spurring arises from the superior aspect of the right greater trochanter. Procedure Note Shiv Diane MD - 07/10/2023 PROCEDURE: XR PELVIS W RIGHT HIP 2VW DATE/TIME OF EXAM: 07/10/2023 9:14 AM CLINICAL INFORMATION: None relevant/not provided if blank. Indication: Z96.649: Presence of unspecified artificial hip joint Additional History: COMPARISON: AP pelvis and right hip study dated 04/04/2023 TECHNIQUE: FINDINGS: AP view of the pelvis with additional AP and frog-lateralviews of the right hip were obtained. The upper pelvis was excluded from the [id number]. The visualized lower pelvic region appears intact. Left femoral head maintains anatomic relationship to the left acetabulum On the right the component parts of the right hip arthroplasty deviceand intramedullary mayte and single cerclage wire appear in relativelyunchanged alignment and positioning. No evidence of fracture, dislocation,prosthetic loosening or bony destructive process identified. Mild degree ofspurring arises from the superior aspect of the right greater trochanter. IMPRESSION: The component parts of the right hip arthroplasty deviceremain in satisfactory alignment and positioning without evidence of fracture, dislocation, prosthetic loosening or bony destructive process. > Interpreting Provider: Shiv Diane MD on 07/10/2023 10:27 AM Torrey Lafleur MD DIAGNOSTIC IMAGING ORDERABLES documented in this encounter Visit Diagnoses Diagnosis S/P revision of total hip Hip joint replacement by other means documented in this encounter Care Teams Sewer Tapper Relationship Specialty Start Date End Date Faisal Richardson DO [address] [place] [id number] PCP - General Family Medicine 11/27/22 documented as of this encounter
--- OUTSIDE RECORDS SUMMARY | 2024-07-28 00:59 | XMS_ITS | Encounter Summary ---
Author Organization [facility] Address [address] [facility] [place] [address] Care Team Providers Care Car Salesperson Name Role Phone Faisal Richardson DO Primary Care Provider [phone] Encounter Details Date Type Department Care Team (Latest Contact Info) Description 04/04/2023 8:38 AM CDT - 04/04/2023 9:19 AM CDT Hospital Encounter [facility] [address], [address] [place] [address] Torrey Lafleur MD [address] [place], [place] [phone] Discharge Disposition: Home or Self Care Social [...] and heating? Not hard at all 12/14/2022 [facility] - Occupational Stress [...] money to buy more. Never true 12/16/19 Within the past 12 months, t he [...] MG/0.5ML injection 10/17/2021 ergocalciferol (Drisdol) 1.25 MG (23495 UT) capsule Take 1 (one) capsule by [...] [facility] [address] [place] [address] Torrey Lafleur MD [address] [place] [address] documented as of this encounter Procedures Procedure Name Priority Date/Time Associated Diagnosis Comments XR PELVIS W RIGHT HIP 2VW Routine 04/04/2023 8:43 AM CDT Right hip pain documented in this encounter Results * XR PELVIS W RIGHT HIP 2VW (04/04/2023 8:43 AM CDT) Anatomical Region Laterality Modality Pelvis Radiographic Sabi ging 04/04/2023 9:04 AM CDT Narrative 04/04/2023 9:05 AM CDT PROCEDURE: ??XR PELVIS W RIGHT HIP 2VW, DATE/TIME OF EXAM: ??04/04/2023 8:43 AM, LOCATION ??[facility] INDICATION: M25.551: Pain in right hip Right hip 3 view HISTORY: Pain Since 01/02/2023 there is been no change in the appearance of a right hip prosthesis. No fracture or dislocation is seen. > Interpreting Provider: Mitchell Zuniga MD on 04/04/2023 9:05 AM Procedure Note Mitchell Zuniga MD - 04/04/2023 PROCEDURE: XR PELVIS W RIGHT HIP 2VW, DATE/TIME OF EXAM: 38:43 AM, LOCATION [facility] INDICATION: M25.551: Pain in right hip Right hip 3 view HISTORY: Pain Since 01/02/2023 there is been no change in the appearance of a right hip prosthesis. No fracture or dislocation is seen. > Interpreting Provider: Mitchell Zuniga MD on 04/04/2023 9:05 AM Torrey Lafleur MD DIAGNOSTIC IMAGING ORDERABLES documented in this encounter Visit Diagnoses Diagnosis Right hip pain Pain in joint, pelvic region and thigh documented in this encounter Care Teams Car Salesperson Relationship Specialty Start Date End Date Faisal Richardson DO [address] [place] [address] PCP - General Family Medicine 11/27/22 documented as of this encounter
--- OUTSIDE RECORDS SUMMARY | 2024-07-28 00:59 | XMS_ITS | Encounter Summary ---
Author Organization [facility] Address [address] [facility] [place] [address] Care Team Providers Care Convalescent Sitter Name Role Phone Faisal Richardson DO Primary Care Provider [phone] Encounter Details Date Type Department Care Team (Latest Contact Info) Description 08/29/2023 Travel Social History Tobacco Use Types Packs/Day [...] and heating? Not hard at all 12/14/2022 [facility] - Occupational Stress [...] slept in a alf (including now)? No 12/14/2022 Sex and Gender [...] Visit [facility] [place] [address] [place] [address] [place] [address] documented as of this encounter Visit Diagnoses Not on filedocumented in this encounter Care Teams Convalescent Sitter Relationship Specialty Start Date End Date Faisal Richardson DO [address] [place] [address] PCP - General Family Medicine 11/27/22 documented as of this encounter
--- OUTSIDE RECORDS SUMMARY | 2024-07-28 00:59 | XMS_ITS | Encounter Summary ---
Author Organization [facility] Address [address] [facility] [place] [address] Care Team Providers Care Business Continuity Manager Name Role Phone Faisal Richardson DO Primary Care Provider Encounter Details Date Type Department Care Team (Late st Contact Info) Description 12/25/2022 Orders Only [facility] [address] [place] [address] Torrey Lafleur MD [address] [facility] [address] [place] [address] Right hip pain Social History [...] and heating? Not hard at all 12/14/2022 [facility] [place] [facility] Occupat ional Health - Occupational Stress [...] [facility] [address] [place] [address] Torrey Lafleur MD [address] [facility] [address] [place] [address] documented as of this encounter Results * XR PELVIS W RIGHT HIP 2VW (01/02/2023 8:44 AM CDT) Anatomical Region Laterality Modality Pelvis Radiographic Sabi ging 01/02/2023 9:53 AM CDT Impressions 01/02/2023 9:56 AM CDT IMPRESSION: The component parts of the right hip arthroplasty device and intramedullary mayte and cerclage wire appear to be in satisfactory alignment and positioning. Interval resorption of the postoperative gas since the prior study. IMPRESSION: > Interpreting Provider: Shiv Diane MD on 01/02/2023 9:56 AM Narrative 01/02/2023 9:56 AM CDT PROCEDURE: ??XR PELVIS W RIGHT HIP 2VW DATE/TIME OF EXAM: ??01/02/2023 8:45 AM CLINICAL INFORMATION: None relevant/not provided if blank. Indication: M25.551: Pain in right hip Additional History: COMPARISON: A two-view postoperative right hip study dated 12/08/2022 TECHNIQUE: FINDINGS: AP weightbearing view of the bulk of the pelvis excluding the uppermost pelvic region as well as AP and frog lateral views of the right hip were obtained. Since the previous examination the gas seen within the operative bed and subcutaneous soft tissues has been resorbed. Surgical ingris remain in place. The component parts of the right hip arthroplasty device and intramedullary mayte appear to be in satisfactory alignment and positioning on each projection. There is no evidence of an acute fracture nor dislocation of the prosthetic components. Procedure Note Shiv Diane MD - 01/02/2023 PROCEDURE: XR PELVIS W RIGHT HIP 2VW DATE/TIME OF EXAM: 01/02/2023 8:45 AM CLINICAL INFORMATION: None relevant/not provided if blank. Indication: M25.551: Pain in right hip Additional History: COMPARISON: A two-view postoperative right hip study dated 12/08/2022 TECHNIQUE: FINDINGS: AP weightbearing view of the bulk of the pelvis excluding the uppermost pelvic region as well as AP and frog lateral views of theright hip were obtained. Since the previous examination the gas seen withinthe operative bed and subcutaneous soft tissues has been resorbed. Surgical ingris remain in place. The component parts of the right hip arthroplasty device andintramedullary mayte appear to be in satisfactory alignment and positioning on each projection. There is no evidence of an acute fracture nor dislocation of the prosthetic components. IMPRESSION: The component parts of the right hip arthroplasty device and intramedullary mayte and cerclage wire appear to be in satisfactoryalignment and positioning. Interval resorption of the postoperative gas since the prior study. IMPRESSION: > Interpreting Provider: Shiv Diane MD on 01/02/2023 9:56 AM Torrey Lafleur MD DIAGNOSTIC IMAGING ORDERABLES documented in this encounter Visit Diagnoses Diagnosis Right hip pain- Primary Pain in joint, pelvic region and thigh Right hip pain Pain in joint, pelvic region and thigh documented in this encounter Care Teams Business Continuity Manager Relationship Specialty Start Date End Date Faisal Richardson DO [address] [place] [address] PCP - General Family Medicine 11/27/22 documented as of this encounter
--- OUTSIDE RECORDS SUMMARY | 2024-07-28 00:59 | XMS_ITS | Encounter Summary ---
Author Organization [facility] Address [address] [place] [address] Care Team Providers Care Grease Refiner Operator Name Role Phone Faisal Richardson DO Primary Care Provider [phone] Reason for Visit * Auth/Cert (Routine) Specialty Diagnoses / Procedures Referred By Contac t Referred To Contact Diagnoses GI Bleed Referral ID Status Reason Start Date Expiration Date Visits Re quested Visits Authorized [id number] 1 1 Encounter Details Date Type Department Care Team (Late st Contact Info) Description 12/15/2022 5:36 PM CDT Anesthesia Event [facility] - Endoscopy Services [address] [place] [address] Olya Olguin MD [address] [place] [phone] Anesthesia Record Procedure Summary Procedure Name Responsible Anesthesiologist Anesthesia Start Time Anesthesia Stop Time ESOPHAGOGASTRODUODENOSCOPY ( EGD) DIAGNOSTIC Olya Olguin MD 12/15/22 1736 12/15/22 1758 Events Date Time Event Comment 12/15/2022 1442 1736 An Start 1736 An Start Data 1738 PT Reassessment 1746 Timeout Anesthesia part icipated in timeout at the time documented in the record by nursing. 1757 Electnc Sig This record is electronically signed by the providers listed under staff. 1757 an stop data 1758 An Stop Meds Name Total lidocaine 2% injection (20 mg/ml) 100 mg propofol (DIPRIVAN) injection 10mg/ml (E NDO USE) 25 mL 0.9% NaCl infusion 0 mL * Agents Name Exp. Sevoflurane Exp. N2O O2 Insp. Sevoflurane * Blood No blood administrations on file. Lines, Drains, and Airways Type Details Placement Removal Peripheral IV Date: 12/14/22 12/14/22 0000 by Adria Jones RN 12/15/222029 by Isabel Cantrell RN Procedural Site (Incision) 12/14/22; 1600; Outside Facility; Right, Upper, Outer; Leg; 12/16/22; 18012/14/22 1600 by Isabel Cantrell RN 12/16/22 180 by Generic, Auto Release documented in this [...] and heating? Not hard at all 12/14/2022 [facility] [place] [facility] Occupat ional Health - Occupational Stress [...] as of this encounter Progress Notes * Maisha Romano, COMPONENT ENGINEER-SHOE LINING FITTER - 12/15/2022 6:01 PM CDT ANESTHESIA POSTOP EVALUATION NOTE Procedure: ESOPHAGOGASTRODUODENOSCOPY (EGD) DIAGNOSTIC ESOPHAGOGASTRODUODENOSCOPY (EGD) BIOPSY Jose Rutledge is a 57 year old male Patient Vitals for the past 6 hrs: BP Temp Pulse Resp SpO2 Pain Rating Score #1 Pain Scale/Observation 12/15/22 1313 164/91 98.9 ??F (37.2 ??C) 82 18 97 % -- -- 12/15/22 1504 167/90 99 ??F (37.2 ??C) 83 16 97 % 2 N 12/15/22 1754 -- -- -- -- -- 0 -- Anesthesia Type: MAC * No Diagnosis Codes entered * Mental Status: awake and alert Neuro Status: No numbness, tingling or visual disturbances Respiratory Function: natural Cardiac Function: stable Postop Pain: acceptable to the patient Postop Hydration: adequate Postop Nausea: none Assessment: no apparent anesthetic complications, patient tolerated procedure well and no evidence of recall Patient Disposition: Release from Anesthesia Care NOTABLE EVENTS: No notable events documented. * Maryann Cummins, COMPONENT ENGINEER-SHOE LINING FITTER - 12/15/2022 2:41 PM CDT ANESTHESIA PREOPERATIVE EVALUATION NOTE Procedure: ESOPHAGOGASTRODUODENOSCOPY (EGD) DIAGNOSTIC NPO status: *Except Oral meds with H2O (12/15/2022 1:43 PM) Vitals: Patient Vitals for the past 6 hrs: BP Temp Pulse Resp SpO2 12/15/22 1313 164/91 98.9 ??F (37.2 ??C) 82 18 97 % 12/15/22 0951 150/79 -- -- -- -- LMP: No LMP for male patient. OB Status: unknown ANESTHESIA PRE-EVALUATION NOTE The patient is a current non-smoker. Physical Exam: Orientation X3 Airway/Mallampati Score: III Mouth Opening Distance: 3 fingerwidths Neck ROM: full Teeth: normal Heart: regular rate rhythm Lungs: normal Abdomen Exam: obese Review of Systems: History of anesthetic complications: No GERD: No Poor Exercise Tolerance: Yes Recent Chest Pain: No Shortness of Breath: No AICD/Pacemaker: No Renal Disease: No ANESTHESIA PLAN ASA Score: 3 NPO Status: No solids since midnight and No liquids within 2 hours Anesthesia Plan: MAC Planned Induction: intravenous Planned Postop Destination: endo Anesthetic plan was discussed with: patient Anesthetic Plan discussion was: Consented The patient's procedural Anesthetic Plan was discussed with the anesthesiologist. BMI, Height, Weight Tobacco History Estimated body mass index is 36.43 kg/m?? as calculated from the following: Height as of this encounter: 1.83 m (6' 0.05 ). Weight as of this encounter: 122 kg (268 lb 15.4 oz). Social History Tobacco Use Smoking Status Never Smokeless Tobacco Never Vaping Use Vaping Status Never Used Alcohol History Drug History Social History Substance and Sexual Activity Alcohol Use Not Currently Social History Substance and Sexual Activity Drug Use No Outpatient Medications: Inpatient Medications: Outpatient Medications Marked as Taking for the 12/14/22 encounter (Hospital Encounter) Medication Sig Last Dose ??? amLODIPine Take 1 (one) tablet by mouth once daily 12/14/2022 ??? aspirin Take 1 (one) tablet by mouth 2 times daily 12/14/2022 ??? Probiotic 12/14/2022 ??? betamethasone dipropionate as needed Past Week ??? cloNIDine Take 1 (one) tablet by mouth 2 times daily 12/14/2022 ??? clopidogrel Take 1 (one) tablet by mouth once daily 12/14/2022 ??? cyclobenzaprine Take 1 (one) tablet by mouth 2 times daily 12/14/2022 ??? diclofenac sodium EC 12/14/2022 ??? DSS Take 100 mg by mouth 2 times daily 12/14/2022 ??? ergocalciferol Take 1 (one) capsule by mouth 12/14/2022 ??? ferrous sulfate Take 1 (one) tablet by mouth once daily 12/14/2022 ??? HYDROcodone-acetaminophen Take 1 (one) tablet by mouth every 4 hours as needed for Pain 12/13/2022 ??? losartan-hydroCHLOROthiazide Take 1 (one) tablet by mouth every morning 12/14/2022 ??? metFORMIN Take 1 (one) tablet by mouth 2 times daily 12/14/2022 ??? One-A-Day Mens Health Formula 12/14/2022 ??? pregabalin Take 1 (one) capsule by mouth 2 times daily 12/14/2022 ??? rosuvastatin Take 2 (two) tablets by mouth every morning 12/14/2022 ??? sertraline Take 1 (one) tablet by mouth once daily 12/14/2022 Current Facility-Administered Medications Medication Dose Last Admin ??? 0.9% NaCl 250 mL ??? 0.9% NaCl 3 mL 3 mL at 12/15/22 0500 And ??? 0.9% NaCl 1-10 mL ??? acetaminophen 650 mg ??? amLODIPine 5 mg 5 mg at 12/15/22 0951 ??? carvedilol 3.125 mg 3.125 mg at 12/15/22 0758 ??? dextrose IV for hypoglycemia 12.5 g Or ??? dextrose IV for hypoglycemia 25 g ??? glucagon 1 mg ??? glucose (Diabetic Use) gel ??? pantoprazole 40 mg 40 mg at 12/15/22 0757 ??? pregabalin 50 mg 50 mg at 12/15/22 0758 ??? rosuvastatin 40 mg 40 mg at 12/15/22 0758 ??? sertraline 50 mg 50 mg at 12/15/22 0758 Allergies: Allergies Allergen Reactions ??? Penicillins Angioedema Relevant Problems No relevant active problems Problem List: Patient Active Problem List Diagnosis Date Noted ??? Gastrointestinal hemorrhage, unspecified gastrointestinal hemorrhage type 12/14/2022 Priority: Not Prioritized ??? S/P total right hip arthroplasty 12/08/2022 Priority: Not Prioritized ??? Closed fracture of nasal bones 11/21/2022 Priority: Not Prioritized ??? Closed left maxillary fracture (CMS/HCC) 11/21/2022 Priority: Not Prioritized ??? H/O ischemic [...] Type 2 diabetes mellitus without complications (CMS/HCC) Surgical History: Past Surgical History: Procedure Laterality Date ??? Appendectomy ??? Cardiac Catherization 2018 no intervetion ??? COLONOSCOPY ??? EGD ??? GENERAL SURGERY PROCEDURE Right 12/08/2022 Right; PREVENA/ WOUND VAC APPLICATION RIGHT HIP ??? HIP ARTHROPLASTY, REVISION Right 12/08/2022 Right; REVISION RIGHT TOTAL HIP ARTHROPLASTY BOTH COMPONENTS, REMOVAL OF ANTIBIOTIC SPCER RIGHT HIP ??? HIP ARTHROPLASTY, TOTAL Right ??? OTHER SURGERY Right 08/30/2022 removed hip and placed antibiotic spacer ??? Rotator Cuff Repair Right ??? SHOULDER ARTHROPLASTY, TOTAL Left MANAGEMENT AIDE Status: No LMP for male patient. unknown OB History No obstetric history on file. Covid Vaccine: Lab Results: Recent Labs Base Name 12/15/22 1204 [id number] 104 SPECIMENTYPE Cap Fingerstick Recent Labs Component Name 12/15/22 1149 WBC 7.8 RBC 2.69* HCT 25.6* HGB 8.5* PLTCOUNT 233 MCV 95.2 MCH 31.6 MCHC 33.2 MPV 8.9* Recent Labs Component Name 12/14/221932 ABORH O POS ABSCG NEG Recent Labs Component Name 11/27/22 0950 BLOODUA Negative NITRITEUA Negative PROTEINUA Negative Recent Labs Component Name 12/15/22 0644 SODIUM 136 POTASSIUM 3.8 CALCIUM 8.8 CHLORIDE 105 CO2 22* GLUCOSE 103 BUN 12 CREATININE 0.82 Recent Labs Component Name 12/14/221932 MAGNESIUM 1.7 Recent Labs Component Name 12/15/22 0644 PHOS 3.0 Recent Labs Component Name 12/14/221932 PT 13.7 INR 1.1 No results found for requested labs within last 120 days. Recent Labs Result Component Current Result Albumin 3.5 (12/15/2022) Alkaline Phosphatase 63 (12/14/2022) ALT 18 (12/14/2022) Anion Gap 9 (12/15/2022) AST 22 (12/14/2022) Bilirubin Total 1.2 (12/14/2022) eGFR by CKD-EPI >90 (12/15/2022) documented in this encounter Miscellaneous Notes * Anesthesia Transfer of Care - Maisha Romano APRN-SHOE LINING FITTER - 12/15/2022 5:57 PM CDT ANESTHESIA TRANSFER OF CARE NOTE Today's Date: 12/15/2022 Date of : 1965 Patient: Jose Rutledge Procedure(s): ESOPHAGOGASTRODUODENOSCOPY (EGD) DIAGNOSTIC ESOPHAGOGASTRODUODENOSCOPY (EGD) BIOPSY Surgeon(s): Primary: Diego León MD Preop Diagnosis: * No Diagnosis Codes entered * Pre-op Meds (From admission, onward) Start Stop Status Route Frequency Ordered 12/15/22 1734 0.9% NaCl infusion -- Sent IV CONTINUOUS PRN 12/15/22 1743 05/11/23 1916 0.9% NaCl infusion rate and volume 12/15/221914 Dispensed IV ONCE PRN 12/14/22191612/14/221953 0.9% NaCl injection 1-10 mL See Hyperspace for full Linked Orders Report. -- Dispensed IK PRN 12/14/22195412/14/222199 0.9% NaCl injection 3 mL See Hyperspace for full Linked Orders Report. -- Dispensed IK EVERY 8 HOURS 12/14/22195412/14/221954 acetaminophen (Tylenol) tablet 650 mg -- Verified PO EVERY 4 HOURS PRN 12/14/22195412/15/22929 amLODIPine (Norvasc) tablet 5 mg Note to Pharmacy: OP sig: Take 1 (one) tablet by mouth once daily -- Dispensed PO DAILY 12/15/2284812/14/222099 carvedilol (Coreg) tablet 3.125 mg Note to Pharmacy: OP sig: Take 1 (one) tablet by mouth 2 times daily -- Dispensed PO 2 TIMES DAILY 12/14/22195412/14/222108 dextrose 10 % IV bolus See Hyperspace for full Linked Orders Report. -- Verified IV PRN 12/14/22210812/14/222108 dextrose 10 % IV bolus See Hyperspace for full Linked Orders Report. -- Verified IV PRN 12/14/22210812/14/222108 glucagon (Glucagen) injection 1 mg -- Verified SC PRN 12/14/22210812/14/222108 glucose (Diabetic Use) oral gel -- Verified PO PRN 12/14/22210812/15/221746 lidocaine HCl (PF) (Xylocaine MPF) 2 % injection -- Sent IV PRN 12/15/22175212/14/222099 pantoprazole (Protonix) injection 40 mg -- Dispensed IV 2 TIMES DAILY 12/14/22195412/14/222099 pregabalin (Lyrica) capsule 50 mg Note to Pharmacy: OP sig: Take 1 (one) capsule by mouth 2 times daily -- Dispensed PO 2 TIMES DAILY 12/14/22195412/15/221746 propofol (Diprivan) injection -- Sent IV CONTINUOUS PRN 12/15/22175212/15/22 0700 rosuvastatin (Crestor) tablet 40 mg Note to Pharmacy: OP sig: Take 2 (two) tablets by mouth every morning -- Dispensed PO EVERY MORNING 12/14/22195412/14/22 2030 sertraline (Zoloft) tablet 50 mg Note to Pharmacy: OP sig: Take 1 (one) tablet by mouth once daily -- Dispensed PO DAILY 12/14/221954 * No Diagnosis Codes entered * . Allergies Allergen Reactions ??? Penicillins Angioedema Vitals: Patient Vitals for the past 3 hrs: BP Temp Pulse Resp SpO2 Pain Rating Score #1 12/15/22 175 -- -- -- -- -- 0 12/15/22 1504 167/90 99 ??F (37.2 ??C) 83 16 97 % 2 Lines, Drains, and Airways Type Details Placement Removal Peripheral IV Date: 12/14/22; Location: Antecubital; Gauge: 20 Gauge 12/14/22 0000 by Adria Jones RN Intraprocedure I/O Totals Intake propofol (DIPRIVAN) injection 10mg/ml (ENDO USE) 25.00 mL Total Intake 25 mL Patient Transfer Location: Endo Recovery Transport Airway: spontaneous respirations and supplemental O2 Complications: None [...] from the receiving PACUteam. FERN Del Rosario documented in this encounter Plan of Treatment Upcoming Encounters Date Type Department Care Team (Late st Contact Info) Description 01/20/2025 10:00 AM CDT Office Visit [facility] - Orthopedic Surgery [address] [place] [phone] Torrey Lafleur MD [address] [facility] [address] [place] [address] documented as of this encounter Visit Diagnoses Not on filedocumented in this encounter Administered Medications Inactive Administered Medications - up to 3 most recent administrations Medication Order MAR Action Action Date Dose Rate Site 0.9% NaCl infusion Intravenous, CONTINUOUS PRN, Starting on Sun12/15/22 at 1734, Until Sun12/15/22 at 1758, Anesthesia Intra-op $ New Bag/Syringe 12/15/2022 5:34 PM CDT lidocaine HCl (PF) (Xylocaine MPF) 2 % injection Intravenous, PRN, Starting on Sun12/15/22 at 1747, Until Sun12/15/22 at 1758, Anesthesia Intra-op $ Given 12/15/2022 5:47 PM CDT 100 mg propofol (Diprivan) injection Intravenous, CONTINUOUS PRN, Starting on Sun12/15/22 at 1747, Until Sun12/15/22 at 1758, Anesthesia Intra-op $ New Bag/Syringe 12/15/2022 5:52 PM CDT $ New Bag/Syringe 12/15/2022 5:47 PM CDT documented in this encounter Care Teams Grease Refiner Operator Relationship Specialty Start Date End Date Faisal Richardson DO [address] [place] [id number] PCP - General Family Medicine 11/27/22 documented as of this encounter
--- OUTSIDE RECORDS SUMMARY | 2024-07-28 00:59 | XMS_ITS | Encounter Summary ---
Author Organization [facility] Address [address] [place] [address] Care Team Providers Care Automotive Assembler Name Role Phone Faisal Richardson DO Primary Care Provider [phone] Encounter Details Date Type Department Care Team (Latest Contact Info) Description 04/04/2023 9:20 AM CDT - 04/04/2023 11:59 PM CDT Hospital Encounter [facility] [address] [place] [address] Torrey Lafleur MD [address] [facility] [address] [place], [place] [phone] Discharge Disposition: Home or Self Care Social [...] and heating? Not hard at all 12/14/2022 [facility] [place] of Occupat ional Health - Occupational Stress [...] MG/0.5ML injection 10/17/2021 ergocalciferol (Drisdol) 1.25 MG (48205 UT) capsule Take 1 (one) capsule by [...] Visit [facility] - Orthopedic Surgery [address] [place] [phone] Torrey Lafleur MD [address] [facility] [address] [place] [address] documented as of this encounter Procedures Procedure Name Priority Date/Time Associated Diagnosis Comments C-REACTIVE PROTEIN Routine 04/04/2023 9: 50 AM CDT S/P revision of total hip ERYTHROCYTE SEDIMENTATION RATE Routine 04/04/2023 9:50 AM CDT S/P revision of total hip documented in this encounter Results * C-REACTIVE PROTEIN (04/04/2023 9:50 AM CDT) Pathologist [facility] C-Reactive Protein 0.33 <=0.50 mg/dL 04/04/2023 10:21 AM CDT [facility] Blood BLOOD SPECIMEN / Unknown Lab Venipuncture / Unknown 04/04/2023 9:50 AM CDT 04/04/2023 9:52 AM CDT Torrey Lafleur MD LAB - CHEMISTRY ORD ERABLES [facility] [address] [place] [address] * (ABNORMAL) ERYTHROCYTE SEDIMENTATION RATE (04/04/2023 9:50 AM CDT) Pathologist [facility] Erythrocyte Sedimentation Rate Automated 24(H) 0 - 20 MM/HR 04/04/2023 10:05 AM CDT [facility] Blood BLOOD SPECIMEN / Unknown Lab Venipuncture / Unknown 04/04/2023 9:50 AM CDT 04/04/2023 9:52 AM CDT Torrey Lafleur MD LAB - HEMATOLOGY OR DERABLES [facility] [address] [place], [place] [phone] documented in this encounter Visit Diagnoses Diagnosis S/P revision of total hip- Primary Hip joint replacement by other means documented in this encounter Care Teams Automotive Assembler Relationship Specialty Start Date End Date Faisal Richardson DO [address] [place] [address] PCP - General Family Medicine 11/27/22 documented as of this encounter
--- OUTSIDE RECORDS SUMMARY | 2024-07-28 00:59 | XMS_ITS | Encounter Summary ---
Author Organization [facility] Address [address] [place] [address] Care Team Providers Care Physical Laboratory Assistant Name Role Phone Faisal Richardson DO Primary Care Provider [phone] Reason for Visit * Auth/Cert (Routine) Specialty Diagnoses / Procedures Referred By Contac t Referred To Contact Diagnoses GI Bleed Referral ID Status Reason Start Date Expiration Date Visits Re quested Visits Authorized [id number] 1 1 Encounter Details Date Type Department Care Team (Latest Contact Info) Description 12/14/2022 6:21 PM CDT - 12/16/2022 11:45 AM CDT Hospital Encounter [facility] [address] [place] [address] Nancy Bianchi MD [address] [place] [id number] Diony Camarillo DO Morga, Sabina, MD [address] [place] [address] [place] [id number] Internal Medicine Discharge Disposition: Home Health Care c Social History Tobacco Use Types Packs/Day Years Used Date Smoking Tobacco: Never Smokeless Tobacco: Never Alcohol Use Standard Drinks/Week Comments Not Currently 0 (1 standard drink = 0.6 oz pur e alcohol) Overall Financial Resource Strain (CARDIA) Terrencee r Date Recorded How hard is it for you to pa y for the very basics like food, housing, medical care, and heating? Not hard at all 12/14/2022 [place] [facility] - Occupational Stress [...] Sign Reading Time Taken Comments Blood Pressure 171/91 12/16/2022 9:42 AM CDT Pulse 78 12/16/2022 9:42 AM CDT Temperature 36.9 ??C (98.5 ??F) 12/16/2022 7:56 AM CD T Respiratory Rate 21 12/16/2022 7:56 AM CDT Oxygen Saturation 96% 12/16/2022 7:56 AM CDT Inhaled Oxygen Concentration - - Weight 121 kg (266 lb 11.2 oz) 12/16/2022 5:21 A M CDT Height 183 cm (6' 0.05 ) 12/14/2022 6:47 PM CDT Body Mass Index 36.12 12/14/2022 6:47 PM CDT documented in this encounter Functional [...] as of this encounter Discharge Summaries * Wendy Damian MD - 12/16/2022 11:45 AM CDT HOSPITALIST DISCHARGE SUMMARY NAME: Jose Rutledge : 1965 DATE OF ADMISSION: 12/14/2022 DATE OF DISCHARGE: 12/16/2022 FINAL DIAGNOSES: ??? Include all new and active diagnoses. 1. Melena 2. Acute blood loss anemia 3. Hypertension 4. Recent R hip replacement with wound vac??in place 5. Recent CVA 6. Type 2 DM DISCHARGE DESTINATION: Home FOLLOW UP PLAN: Include list of active issues: ??? Next steps ? ? Testing & Referrals Scheduled: ? ? Testing & Referrals TBD: ??? Timing ??? Provider 1. Follow up with the PCP within 1 week 2. Follow up with the orthopedic surgeon within 2 weeks as scheduled 3. Follow up with the GI for the biopsy results PENDING TEST RESULTS: None INCIDENTAL FINDINGS REQUIRING FOLLOW UP: None READMISSION RISK SCORE: 21+: high 30 day readmission risk 0-20: low-moderate 30 day readmission risk 11 at 12:25 PM 12/16/2022. PRESENTING HISTORY: Per Dr. Rodarte, Jose Rutledge is a 57 year old male w/PMHx significant for HLT, HTN, GI bleed / pyloric ulcer in 2014, normal colonoscopy in 2019 (report not available in system), recently replaced hip that got infected and was on spacer and later got a hip arthroplasty and discharged a week agowith a wound vac and on asa 81 mg bid on top of his plavix that he takes for his recent CVA in 09/2022. He has been feeling tired since yesterday and noticed some dark stools in this morning and went to his PCP office, hb was low at 6.6. He was then sent to a nearby hospital where he received a unitof blood and then transferred to [facility] for GI evaluation. He underwent CT angio in the OSH which wasnon revealing. He denies any N/V, abdominal pain, GI symptoms. hasnt had a BM since this morning. Denies NSAID use. ??: HOSPITAL COURSE: (include consults and procedure details) Jose Rutledge??is a 57 year old??male??w/PMHx significant for HLT, HTN,??GI bleed /??pyloric ulcer in 2014,??normal colonoscopy in 2019 (report not available in system),?recently replaced hip thatgot infected and was on spacer and later got a hip arthroplasty and discharged a week ago with a wound vac and on asa 81 mg bid on top of his plavix that he takes for his recent CVA in 09/2022. He hasbeen feeling tired and noticed some dark stools and went to his PCP office, hb was low at 6.6. He was then sent to a nearby hospital where he received a unit of blood and then transferred to [facility] forGI evaluation. He underwent CT angio in the OSH which was non revealing. GI was consulted, underwent EGD on 12/15/22 which showed normal esophagus, 3 gastric ulcers in antrum, emily test was done, with no blood in UGI tract and normal duodenum. He is hemodynamically stable,Hb stable and is discharged home with recommendations to follow up with the PCP ,a nd the orthopedic as scheduled, and to follow up with the GI regarding the biopsy results. He is also recommended tostart taking the aspirin 81 mg BID from today and start the Plavix after 3 days and to continue thePPI for at least 3 months. POA ACTIVATED STATUS: NO RADIOLOGY: (last 7 days) + additional pertinent studies No results found. ADDITIONAL PERTINENT STUDIES: None RECENT/NOTABLE LABS: include pertinent positives Recent Labs Component Name 12/16/22 0545 SODIUM 139 POTASSIUM 3.9 CHLORIDE 108* CO2 23 BUN 11 CREATININE 0.81 EGFR >90 Recent Labs Component Name 12/16/22 0545 WBC 7.1 HGB 8.2* HCT 26.0* PLTCOUNT 246 Recent Labs Component Name 12/14/22 1933 07/14/14 1359 INR 1.1 1.2 VITALS/MENTAL STATUS/NOTIBLE EXAM FINDINGS Most recent weight: Weight: 121 kg (266 lb 11.2 oz) (12/16/22 0521) BP 171/91 Pulse 78 Temp 98.5 ??F (36.9 ??C) (Oral) Resp 21 Ht 1.83 m (6' 0.05 ) Wt 121 kg(266 lb 11.2 oz) SpO2 96% Exam: Physical Exam Constitutional: ?Appearance: Normal appearance. HENT: ?Head: Normocephalic??and atraumatic. ?Right Ear: External ear??normal. ?Left Ear: External ear??normal. ?Nose: Nose normal. ?Mouth/Throat: ?Pharynx: Oropharynx is clear. Eyes: ?Conjunctiva/sclera: Conjunctivae normal. Cardiovascular: ?Rate and Rhythm: Normal rate??and regular rhythm. ?Pulses: Normal pulses. ?Heart sounds: Normal heart sounds. Pulmonary: ?Effort: Pulmonary effort is normal. ?Breath sounds: Normal breath sounds. Abdominal: ?Palpations: Abdomen is soft. Musculoskeletal: ?Cervical back: Normal range of motion. Skin: ?General: Skin is dry. ?Capillary Refill: Capillary refill takes less than 2 seconds. Neurological: ?General: No focal deficit??present. ?Mental Status: He is alert??and oriented to person, place, and time. Psychiatric: ?Mood and Affect: Mood??normal. ?? DISCHARGE MEDICATIONS AND ALLERGIES This list of medications is preliminary and tentative: please see the Patient Discharge Instructions for patients discharged home or the Facility Transfer Order for the final and accurate medication list. Current Discharge Medication List START taking these medications Instructions Authorizing Provider pantoprazole EC 40 MG tablet Commonly known as: Protonix Quantity Dispensed: 30 tablet Take 1 (one) tablet by mouth once daily Reasons: Stomach Ulcer Rosita Tuttle MD CONTINUE taking these medications which have CHANGED Instructions Authorizing Provider clopidogrel 75 MG tablet What changed: ?? additional instructions ?? These instructions start on December 19, 2022. If you are unsure what to do until then, ask your doctor or other care provider. Commonly known as: plaVIX Start taking on: December 19, 2022 Take 1 (one) tablet by mouth once daily Start taking 12/19/22. Rosita Tuttle MD CONTINUE taking these medications which have NOT CHANGED Instructions Authorizing Provider amLODIPine 5 MG tablet Commonly known as: Norvasc Take 1 (one) tablet by mouth once daily aspirin 81 MG chew tablet Commonly known as: Aspirin 81 Quantity Dispensed: 70 tablet Take 1 (one) tablet by mouth 2 times daily Wendy Damian MD betamethasone dipropionate 0.05 % ointment Commonly known as: Diprosone as needed carvedilol 25 MG tablet Commonly known as: Coreg Take 1 (one) tablet by mouth 2 times daily cloNIDine 0.1 MG tablet Commonly known as: Catapres Take 1 (one) tablet by mouth 2 times daily cyclobenzaprine 10 MG tablet Commonly known as: Flexeril Take 1 (one) tablet by mouth 2 times daily DSS 100 MG Take 100 mg by mouth 2 times daily ergocalciferol 1.25 MG (02902 UT) capsule Commonly known as: Drisdol Take 1 (one) capsule by mouth ferrous sulfate 325 (65 FE) MG tablet Take 1 (one) tablet by mouth once daily HYDROcodone-acetaminophen 5-325 MG tablet Commonly known as: [place] Quantity Dispensed: 42 tablet Take 1 (one) tablet by mouth every 4 hours as needed for Pain Blaire Vogt MD losartan-hydroCHLOROthiazide 100-12.5 MG tablet Commonly known as: Hyzaar Take 1 (one) tablet by mouth every morning metFORMIN 1000 MG tablet Commonly known as: Glucophage Take 1 (one) tablet by mouth 2 times daily One-A-Day Mens Health Formula Tabs pregabalin 50 MG capsule Commonly known as: Lyrica Quantity Dispensed: 70 capsule Take 1 (one) capsule by mouth 2 times daily Blaire Vogt MD Probiotic 1-250 BILLION-MG Caps rosuvastatin 20 MG tablet Commonly known as: Crestor Take 2 (two) tablets by mouth every morning sertraline 50 MG tablet Commonly known as: Zoloft Take 1 (one) tablet by mouth once daily Trulicity 1.5 MG/0.5ML injection Generic drug: dulaglutide STOP taking these medications diclofenac sodium EC 75 MG tablet Commonly known as: Voltaren ALLERGIES: Allergies Allergen Reactions ??? Penicillins Angioedema DISCHARGE INSTRUCTIONS Why you were hospitalized Your discharge diagnosis is: Melena [[id number]] Your discharge diagnosis is: Acute blood loss anemia [139491] Your discharge diagnosis is: HTN (hypertension) with goal to be determined [[id number]] Follow up with Primary Care Provider (PCP) Our records show your Primary Care Provider (PCP) is Faisal Richardson DO. Follow Up Instructions for Patient: Within 5 Days from Discharge Special diet instructions Avoid spicy foods Activity as tolerated Rest today, and increase your activity level tomorrow as tolerated. Follow up with provider Call the office to know the biopsy results Follow Up Instructions for Patient: Within 14 Days from Discharge Follow up with provider Follow up with the orthopedic surgeon as scheduled Follow Up Instructions for Patient: Other (See Comment) ISOLATION PRECAUTIONS No active isolations. Isolation due to No active infections. I spent 25 minutes in addition to direct patient care summarizing this patient's hospital stay, reviewing and updating the inpatient problem list, reviewing discharge medications, instructions, discussing discharge care planand discharge follow up labs/studies/doctor visits with the patient and or POA/family. Wendy Damian MD PGY-2 IM resident Associated attestation - Rosita Tuttle MD - 12/17/2022 12:05 AM CDT Pt seen and examined by me during bedside rounds w/ house staff. D/w resident franco Manzanares/c notereviewed, agree w/ physical findings, assessment and plan unless otherwise noted. I have directly participated in the care of this pt. A/P: Multiple gastric ulcers Acute blood loss anemia w/ melena HTN Recent Rt hip replacement w/ wound vac Recent CVA DM2 A1c 6.0 controlled D/c meds and instructions reviewed w/ pt at bedside and he verbalized understanding. Dispo: d/c home. Outpt f/u w/ PCP and ortho . Rosita Tuttle MD [facility] Hospitalist DOS 12/16/22 D/c time 35 minutes. Time was spent reviewing the chart, interviewing and examining the patient, participating in rounds, reviewed medications, writing orders, and documentation. documented in this encounter Medications at Time of Discharge Medication Sig Dispensed Refills Start Date End Date Bacillus Coagulans-Inulin (Probiotic) 1-250 BILLION-MG CAPS carvedilol (Coreg) 25 MG tablet Take 1 [...] MG/0.5ML injection 10/17/2021 ergocalciferol (Drisdol) 1.25 MG (38687 UT) capsule Take 1 (one) capsule by [...] by mouth 2 times daily 03/05/2022 10/04/2023 HYDROcodone-acetaminophe n ([place]) 5-325 MG tabletIndications:S/P total right hip arthroplasty Take 1 (one) tablet by mouth every 4 hours as needed for Pain 42 tablet 12/09/2022 01/02/2023 losartan-hydroCHLOROthia zide (Hyzaar) 100-12.5 MG tablet Take 1 (one) tablet by mouth every morning 10/17/2021 10/04/2023 documented as of this encounter Progress Notes * Opal Grissom RN - 12/16/2022 9:00 AM CDT Problem: Pain/Discomfort Goal: Patient exhibits [...] in the flowsheet documentation) Outcome: Progressing Problem: Ineffective breathing pattern related to obstructive sleep apnea Goal: Maintains optimal sleep pattern, as evidenced by relaxed breathing at normal rate and depth. Outcome: Progressing Goal: Adheres to CPAP (Continuous Positive Airway Pressure) device regimen as prescribed. Outcome: Progressing Problem: Sleep deprivation related to sleep apnea. Goal: Achieves restful, refreshing sleep pattern. Outcome: Progressing Problem: Procedural Site (Incision) Care Goal: Incision remains intact with edges well approximated Outcome: Progressing Goal: Incision is free of infection. Outcome: Progressing Problem: Skin Integrity Goal: Skin integrity is maintained or improved Outcome: Progressing * Isabel Cantrell RN - 12/16/2022 7:21 AM CDT at bedside at start of shift. Pt oriented and had c/o R hip pain relieved with prn meds per the MAR. BP elevated at start of shift. Meds given and BP improved. Pt ambulated independently with a walker, and he rested quietly and slept between care (with home CPAP in place). Plan for possible d/c today. Problem: Pain/Discomfort Goal: Patient exhibits reduced pain/discomfort [...] in the flowsheet documentation) Outcome: Progressing Problem: Ineffective breathing pattern related to obstructive sleep apnea Goal: Maintains optimal sleep pattern, as evidenced by relaxed breathing at normal rate and depth. Outcome: Progressing Goal: Adheres to CPAP (Continuous Positive Airway Pressure) device regimen as prescribed. Outcome: Progressing Problem: Sleep deprivation related to sleep apnea. Goal: Achieves restful, refreshing sleep pattern. Outcome: Progressing Problem: Procedural Site (Incision) Care Goal: Incision remains intact with edges well approximated Outcome: Progressing Goal: Incision is free of infection. Outcome: Progressing Problem: Skin Integrity Goal: Skin integrity is maintained or improved Outcome: Progressing * Gokul Valero - 12/16/2022 7:01 AM CDT Internal Medicine Medical Student MS4 Progress Note Admission Date: 12/14/2022 Hospital Day: 2 Attending: Dr. Tuttle Resident/Travel Consultant: Drs. Damian/ Jocelin Code Status: full Hospital course summary: Mr. Rutledge is a 57 year old male with PMHx of HTN, HLD, DM, CVA in 09/2022 on ASA and plavix, GI bleed 2/2 ulcer in the setting of NSAID use in 2013, R hip arthroplasty c/b infection requiring revision on 12/08/22 -- wound vac in place. He presented to his PCP on 12/14 with fatigue and one day of dark stools. Hgb in office was 6.6, he was sent to [facility] for blood transfusion and transferred to [facility]. He denied n/v, abdominal pain, other GI symptoms. At the OSH CT angio was not revealing. He had a colonoscopy in 2019 that was normal (due next in 2024), he has a family history of rectal cancer in his father. He denies NSAID use, but was dischargedfrom his hip surgery with voltaren qday that he endorses taking. At [facility] his hemoglobin 6.5 and he received one unit of pRBC and continued on PPI IV. EGD by Dr. León on 12/15 revealed3 gastric ulcers, no active bleed, and gastritis. Overnight Events: NAEO. EGD- 3 gastric ulcers, no active bleed, gastritis. Feeling well this AM. Tolerating diet without n/v, no black bowel movements. Denies chest pain, SOB, leg pain. Hgb stable. OBJECTIVE: Summary of overnight vitals: Afebrile (Tmax 99.6F), HR 71-85, BP 133-171/71-83, RR 18-22, SpO2 97% on room air. Patient Vitals for the past 24 hrs: Temp Pulse Resp BP 12/16/22 0521 98 ??F (36.7 ??C) 74 18 168/82 12/16/22 0033 98.6 ??F (37 ??C) 71 20 138/86 12/15/22 2217 -- -- -- 133/71 12/15/222025 98.9 ??F (37.2 ??C) 85 22 171/83 12/15/22 1846 98.7 ??F (37.1 ??C) 77 18 153/89 12/15/22 1815 -- 80 18 162/84 12/15/22 1810 -- 83 15 168/86 12/15/22 1805 99.6 ??F (37.6 ??C) 83 13 162/87 12/15/22 1504 99 ??F (37.2 ??C) 83 16 167/90 12/15/22 1313 98.9 ??F (37.2 ??C) 82 18 164/91 12/15/22 0951 -- -- -- 150/79 12/15/22 0840 99.3 ??F (37.4 ??C) 81 18 150/79 12/15/22 0746 99.3 ??F (37.4 ??C) 73 18 150/82 Intake/Output Summary (Last 24 hours) at 12/16/2022 0701 Last data filed at 12/15/2022 1806 Gross per 24 hour Intake 125 ml Output -- Net 125 ml Physical Exam Constitutional: Appearance: Normal appearance. HENT: Head: Normocephalic and atraumatic. Cardiovascular: Rate and Rhythm: Normal rate and regular rhythm. Heart sounds: Murmur (systolic ) heard. Pulmonary: Effort: Pulmonary effort is normal. Breath sounds: Normal breath sounds. Abdominal: General: Abdomen is flat. Bowel sounds are normal. Palpations: Abdomen is soft. Musculoskeletal: Right lower leg: No edema. Left lower leg: No edema. Neurological: Mental Status: He is alert. Psychiatric: Mood and Affect: Mood normal. Behavior: Behavior normal. Labs: I have reviewed results from the last 24 hours and are remarkable for the following: Recent Labs Component Name 12/16/22 0545 12/15/22 1948 12/15/22 1149 WBC 7.1 8.6 7.8 HGB 8.2* 8.5* 8.5* HCT 26.0* 25.4* 25.6* PLTCOUNT 246 251 233 Recent Labs Component Name 12/16/22 0545 SODIUM 139 POTASSIUM 3.9 CHLORIDE 108* CO2 23 BUN 11 CREATININE 0.81 CALCIUM 9.1 ALBUMIN 3.6 ALT 15 AST 20 GLUCOSE 126* PT: 13.7 INR: 1.1 Iron panel, Folate, B12, ferritin normal Imaging: I have reviewed imaging studies from the last 24 hours and is summarized below: none ASSESSMENT/PLAN: Mr. Rutledge is a 57 year old male with PMHx of HTN, GI bleed in 2013, CVA in 09/2022 on ASA and plavix, recent R hip arthroplasty. He had a normal colonoscopy in 2019 which was normal but does have a positive family history of rectal cancer. He presents with melena suggestive of upper GI bleed in the setting of anticoagulation and some NSAID use. But denies abdominal pain. Causes of upper GI bleed ulcers 2/2 h pylori vs nsaid, VS gastritis VS malignancy VS slow lower GI bleed. Iron studies and PT-INR normal. EGD 12/15 showed 3 gastric ulcers, not actively bleeding #upper GI bleed 2/2 gastric ulcers #normocytic anemia Received 2u pRBC -Monitor H+H -Transfuse if less than 7 -PPI 40 mg PO for 4 weeks -GI scoped. -Restart ASA 81 BID now -Restart Plavix on Tuesday 12/19 -Follow up with GI outpatient -Follow with Dr. León's office for biopsy result and H. Pylori result -No NSAIDs, discontinue voltaren -Plan to restart anticoagulants as soon as able due to high risk of stroke -HASBLED Bleeding Risk Assessment Tool: Total: 4 4 points: 8.70 bleeds per 100 patient-years 12/16/2022 <[id number]:> 4 <Annual Stroke Risk:>4.0 #HTN -Resume home beta hernando at lower dose 3.125 mg BID (at home on 25 mg BID) -Continue home amlodipine -Resume lower dose of home losartan-HCTZ #R hip arthroplasty -Wound vac in place -Wound care nursing -Continue home pregabalin #CVA Stroke in 09/2022 and recent orthopedic surgery -Restart Plavix on 12/19, ASA 81 BID now -Continuing home statin #Mood disorder -Continue home sertraline #HLD -Continue home crestor #DM A1c: 6, on trulicity and metformin at home -BG checks -sliding scale insulin with meals -hypoglycemia precautions DVT Prophylaxis: SCDs, holding plavix in setting of bleed Diet: diabetic diet Pain management: tylenol PRN Consults: GI Barriers to discharge: acute blood loss anemia, GI bleed requiring evaluation Dispo: home today D/w IM Attending and Residents Gokul Valero, MS4 Medical Student [place] Delirium precautions - Encourage normal sleep-wake cycle: Lights on during the day, frequent orientation. - Night: Maintain sleep hygiene, minimal sleep interruptions - Avoid sedating medications like benzos and antipsychotics as much as possible - Encourage frequent family interaction. Associated attestation - Rosita Tuttle MD - 12/16/2022 11:12 PM CDT Reviewed for educational purposes only. Rosita Marry, Wendy Rueda MD - 12/15/2022 5:42 PM CDT Internal Medicine Resident Progress Note Admission Date: 12/14/2022 Hospital Day: 1 Attending: Dr. Tuttle Resident: Dr. Damian Code Status: Full Code Events since last progress note: Patient denies any melena since hospitalization, denies any new complaints Hb stable NPO, was waiting for EGD Hospital course summary: Jose Rutledge is a 57 year old male w/PMHx significant for HLT, HTN, GI bleed / pyloric ulcer in 2014, normal colonoscopy in 2019 (report not available in system), recently replaced hip that got infected and was on spacer and later got a hip arthroplasty and discharged a week ago with a wound vac and on asa 81 mg bid on top of his plavix that he takes for his recent CVA in 09/2022. He has been feeling tired since yesterday and noticed some dark stools in this morning and went to his PCP office, hb was low at 6.6. He was then sent to a nearby hospital where he received a unit of blood and then transferred to [facility] for GI evaluation. He underwent CT angio in the OSH which was non revealing. He denies any N/V, abdominal pain, GI symptoms. hasnt had a BM since this morning. Denies NSAID use. ROS Review of Systems Constitutional: Negative for chills, fever and weight loss. HENT: Negative for sore throat. Eyes: Negative for blurred vision. Respiratory: Negative for cough. Cardiovascular: Negative for chest pain. Gastrointestinal: Positive for melena. Negative for abdominal pain, nausea and vomiting. Genitourinary: Negative for dysuria. Musculoskeletal: Negative for myalgias. Skin: Negative for rash. Neurological: Negative for headaches. Endo/Heme/Allergies: Does not bruise/bleed easily. Psychiatric/Behavioral: The patient is not nervous/anxious. OBJECTIVE Unable to calculate weight change. Intake/Output Summary (Last 24 hours) at 12/15/2022 1742 Last data filed at 12/15/2022 0457 Gross per 24 hour Intake 551 ml Output -- Net 551 ml Temp (24hrs), Av.8 ??F (37.1 ??C), Min:97.7 ??F (36.5 ??C), Max:99.3 ??F (37.4 ??C) Patient Vitals for the past 24 hrs: Temp Pulse Resp BP 12/15/22 1504 99 ??F (37.2 ??C) 83 16 167/90 12/15/22 1313 98.9 ??F (37.2 ??C) 82 18 164/91 12/15/22 0951 -- -- -- 150/79 12/15/22 0840 99.3 ??F (37.4 ??C) 81 18 150/79 12/15/22 0746 99.3 ??F (37.4 ??C) 73 18 150/82 12/15/22 0458 97.7 ??F (36.5 ??C) 76 18 149/87 12/15/22 0220 99.1 ??F (37.3 ??C) 80 18 140/79 12/15/22 0208 99 ??F (37.2 ??C) 80 18 129/86 12/15/22 0108 98.1 ??F (36.7 ??C) 86 18 175/77 12/14/22 1930 99 ??F (37.2 ??C) 79 18 130/72 12/14/22 1846 99 ??F (37.2 ??C) 82 18 132/71 Physical Exam Physical Exam Constitutional: Appearance: Normal appearance. HENT: Head: Normocephalic and atraumatic. Right Ear: External ear normal. Left Ear: External ear normal. Nose: Nose normal. Mouth/Throat: Pharynx: Oropharynx is clear. Eyes: Conjunctiva/sclera: Conjunctivae normal. Cardiovascular: Rate and Rhythm: Normal rate and regular rhythm. Pulses: Normal pulses. Heart sounds: Normal heart sounds. Pulmonary: Effort: Pulmonary effort is normal. Breath sounds: Normal breath sounds. Abdominal: Palpations: Abdomen is soft. Musculoskeletal: Cervical back: Normal range of motion. Skin: General: Skin is dry. Capillary Refill: Capillary refill takes less than 2 seconds. Neurological: General: No focal deficit present. Mental Status: He is alert and oriented to person, place, and time. Psychiatric: Mood and Affect: Mood normal. ?? MAR reviewed: Yes Antimicrobial day: None Labs: I have reviewed results from the last 24 hours and are remarkable for the following: Recent Labs Component Name 12/15/22 1149 12/15/22 0644 12/14/22193212/09/22 0311 12/08/22 0835 11/27/22 0950 WBC 7.8 7.4 7.2 - 6.3 5.7 RBC 2.69* 2.46* 2.06* - 3.78* 4.02 HGB 8.5* 7.7* 6.5* - 12.4 12.9 HCT 25.6* 24.1* 19.9* - 36.2 38.0 MCV 95.2 98.0 96.6 - 95.8 94.5 MCHC 33.2 32.0 32.7 - 34.3 33.9 PLTCOUNT 233 217 211 - 130* 147* NEUTPCT - - 51.3 - 58.6 54.7 LYMPHPCT - - 30.3 - 26.6 32.1 BASOPHILPCT - - 0.4 - 0.5 0.5 GRANSIMMPCT - - 4.1* - 0.6 1.2* NEUTABS - - 3.68 - 3.69 3.14 LYMPHABS - - 2.17 - 1.67 1.84 BASOABS - - 0.03 - 0.03 0.03 - = values in this interval not displayed. Recent Labs Component Name 12/15/22 0644 12/14/22193211/27/22 0950 07/15/14 0015 07/14/14 1359 SODIUM 136 139 137 - - POTASSIUM 3.8 3.8 4.4 - 4.8* CHLORIDE 105 109* 106 - - CO2 22* 22* 20* - 19* BUN 12 17 14 - 39* CREATININE 0.82 0.82 0.74 - 0.9 GLUCOSE 103 106* 126* - 175* CALCIUM 8.8 8.5 9.7 - 8.4 ALT - 18 24 - 25 ALKPHOS - 63 73 - 35* AST - 22 20 - 13 TBIL - 1.2 0.9 - - TPROT - 6.2* 7.4 - - EGFR >90 >90 >90 - >60 ALBUMIN 3.5 3.3* 4.4 - - - = values in this interval not displayed. Micro: none Imaging: I have reviewed imaging studies from the last 24 hours and is summarized below: None Assessment/Clinical Reasoning/Plan Melena, Acute blood loss anemia - Hemodynamically stable - Hb on admission 6.5, S/p 1 unit of PRBC, hb stable now - Continue on PPI bid. - Holding asa and Plavix - GI was consulted, Undergoing EGD - Monitor for occult GI blood loss ?? Hypertension BP stable - Continue on Coreg at low dose Hold other antihypertensives, will resume as needed ?? Recent R hip replacement with wound vac in place - site looks clean. No concern for infection into the joint. Wound nurse was consulted - Will Contact Ortho team tomorrow ( Tried to contact them today) ?? Recent CVA - continue statin. Holding plavix. Consider starting soon as GI bleed is evaluated and treated. ?? Type 2 DM - a1c of 6. will monitor with daily morning glucose with BMP and hypoglycemia precautions. At home on MF and trulicity. ?? Mood disorder - continue sertraline ?? DVT prophylaxis - scd for now ?? Disposition plan - likely home ?? Diet - Resume the diet after the procedure as per GI recommendation Barriers to Discharge - Waiting for EGD Dispo:Likely home D/w IM Attending Wendy Damian MD PGY-2 IM Resident Associated attestation - Rosita Tuttle MD - 12/15/2022 8:24 PM CDT Pt seen and examined by me during bedside rounds w/ house staff. D/w resident , progressnote reviewed, agree w/ physical findings, assessment and plan unless otherwise noted. I have directly participated in the care of this pt. Care plan reviewed w/ pt at bedside. Dispo: anticipate d/c will be to home, ?1-2 days. Rosita Tuttle MD [facility] Hospitalist DOS 12/15/22 * Jacy Fox RN - 12/15/2022 12:06 PM CDT Case Management Initial Assessment Anticipated Discharge Date: 12/16/22 Transportation at Discharge: Family Anticipated level of care at discharge: Home Health Care Anticipated level of care provider: [facility] Prior to admission level of care: Home Health Care Prior to admit provider: [facility] Discharge Goals and Plans: Patient Goals: Return home Plans: No discharge needs identified at this time. Consult Case Management if discharge planning needs arrise. Upon discharge or transfer to a post acute facility should rehospitalization, home health, rehabilitation, or any other follow up care be required, patient's preference is to stay within the [facility] and its affiliates.: Unsure Comments: Met patient at bedside. AO4 on RA UAL with walker prn from home. Lives home with . Currently established with [facility] for wound care and home PT/OT. He has a NGWT that he came in with and will continue for two weeks. He plans to continue care with [facility] at OR. His will transport him home at OR. GI following for GI bleed. Received 2uPRBCs. Currently NPO. Continued Care and Services - Admitted Since 12/14/2022 Home Medical Care Service Provider Request Status Selected Services Address Phone Fax Patient Preferred [facility] Pending - Request Sent N/A [phone] [phone] -- Lives with: Spouse Physical Limitations: None Requires Assistance With: None Preferred Pharmacy: [facility] - [address] [phone] [address] [phone] Advance Directive: No Advance Directive READMISSION RISK SCORE is 11 at 12:06 PM 12/15/2022. Met with patient and spouse Family Support (name and phone): Extended Emergency Contact Information Primary Emergency Contact: Marguerite Rutledge Address: [address] [place] [address] Relation: Spouse Patient or outside medical sales representative requests care coordination reach out to family or caregiver listed above regarding discharge planning and at time of discharge? No Patient/Family provided with list of resources? No Preferred Provider / High Quality Network List given?: No Reason for provider choice: Pt. choice - previous provider Equipment at Home: Chair-Shower;Hand Held Shower;Toilet Seat - Raised;Walker-2 Wheeled;Walker-Standard;Negative Pressure Wound Therapy List DME pt. requires but does not have.: None Roller Coaster Designer Referral: No Will continue to follow. For any questions or needs please contact: Mechanic Assistant Name/Phone number: Jayc Fox RN [phone] * Romelia Cline RN - 12/15/2022 11:46 AM CDT Wound consult placed for VAC from home. Patient seen at bedside. He has a Prevena disposable VAC tohis right hip. It is well sealed and functioning. He has a follow up scheduled on the . The plan is to leave the VAC on for 2 weeks per patient. He had it placed on Sunday the . Nursing to en sure/maintain VAC seal daily. If patient will still be inpatient on Sunday12/16/22 nursing will need to notify Ortho and see if VAC should be continued. If so a new Prevena would need to be placed as the device will time out after 7 days (dressings available in OR or through ). Discussed this with primary RN Tomeka today. Orders placed in Epic. Follow up with ortho as scheduled. Wound RN will sign off at this time. RE-consult if needed in the future or contact directly [phone] with questions/concerns. Romelia Cline RN 12/15/2022 11:48 AM * Opal Grissom RN - 12/15/2022 9:57 AM CDT Problem: Pain/Discomfort Goal: Patient exhibits [...] in the flowsheet documentation) Outcome: Progressing Problem: Ineffective breathing pattern related to obstructive sleep apnea Goal: Maintains optimal sleep pattern, as evidenced by relaxed breathing at normal rate and depth. Outcome: Progressing Goal: Adheres to CPAP (Continuous Positive Airway Pressure) device regimen as prescribed. Outcome: Progressing Problem: Sleep deprivation related to sleep apnea. Goal: Achieves restful, refreshing sleep pattern. Outcome: Progressing * Gokul Valero - 12/15/2022 9:18 AM CDT Internal Medicine Medical Student MS4 Progress Note Admission Date: 12/14/2022 Hospital Day: 1 Attending: Dr. Tuttle Resident/Travel Consultant: Drs. Damian/ Jocelin Code Status: full Hospital course summary: Mr. Rutledge is a 57 year old male with PMHx of HTN, HLD, DM, CVA in 09/2022 on ASA and plavix, GI bleed 2/2 ulcer in the setting of NSAID use in 2013, R hip arthroplasty c/b infection requiring revision on 12/08/22 -- wound vac in place. He presented to his PCP on 12/14 with fatigue and one day of dark stools. Hgb in office was 6.6, he was sent to [facility] for blood transfusion and transferred to [facility]. He denied n/v, abdominal pain, other GI symptoms. At the OSH CT angio was not revealing. He had a colonoscopy in 2019 that was normal (due next in 2024), he has a family history of rectal cancer in his father. He denies NSAID use, but was dischargedfrom his hip surgery with voltjorge alberton paul that he endorses taking. Overnight Events: NAEO. Feeling well this AM, a little weak, but better. No blood transfusion this AM, in the room with Marguerite Palma. OBJECTIVE: Summary of overnight vitals: Afebrile (Tmax 99.3F), HR 73-86, BP 130-175/70-80's, RR 18, SpO2 96% on room air. Patient Vitals for the past 24 hrs: Temp Pulse Resp BP 12/15/22 0840 99.3 ??F (37.4 ??C) 81 18 150/79 12/15/22 0746 99.3 ??F (37.4 ??C) 73 18 150/82 12/15/22 0458 97.7 ??F (36.5 ??C) 76 18 149/87 12/15/22 0220 99.1 ??F (37.3 ??C) 80 18 140/79 12/15/22 0208 99 ??F (37.2 ??C) 80 18 129/86 12/15/22 0108 98.1 ??F (36.7 ??C) 86 18 175/77 12/14/22 1930 99 ??F (37.2 ??C) 79 18 130/72 12/14/22 1846 99 ??F (37.2 ??C) 82 18 132/71 Intake/Output Summary (Last 24 hours) at 12/15/2022 0918 Last data filed at 12/15/2022 0457 Gross per 24 hour Intake 551 ml Output -- Net 551 ml Physical Exam Constitutional: Appearance: Normal appearance. HENT: Head: Normocephalic and atraumatic. Cardiovascular: Rate and Rhythm: Normal rate and regular rhythm. Heart sounds: Murmur (systolic ) heard. Pulmonary: Effort: Pulmonary effort is normal. Breath sounds: Normal breath sounds. Abdominal: General: Abdomen is flat. Bowel sounds are normal. Palpations: Abdomen is soft. Musculoskeletal: Right lower leg: No edema. Left lower leg: No edema. Neurological: Mental Status: He is alert. Psychiatric: Mood and Affect: Mood normal. Behavior: Behavior normal. Labs: I have reviewed results from the last 24 hours and are remarkable for the following: Recent Labs Component Name 12/15/22 0644 12/14/22193212/09/22 0311 12/08/22 0835 WBC 7.4 7.2 - 6.3 HGB 7.7* 6.5* 8.3* 12.4 HCT 24.1* 19.9* 23.8* 36.2 PLTCOUNT 217 211 - 130* Recent Labs Component Name 12/15/2244 12/14/221932 SODIUM 136 139 POTASSIUM 3.8 3.8 CHLORIDE 105 109* CO2 22* 22* BUN 12 17 CREATININE 0.82 0.82 CALCIUM 8.8 8.5 ALBUMIN 3.5 3.3* ALT - 18 AST - 22 GLUCOSE 103 106* PT: 13.7 INR: 1.1 Iron panel, Folate, B12, ferritin normal Imaging: I have reviewed imaging studies from the last 24 hours and is summarized below: none ASSESSMENT/PLAN: Mr. Rutledge is a 57 year old male with PMHx of HTN, GI bleed in 2013, CVA in 09/2022 on ASA and plavix, recent R hip arthroplasty. He had a normal colonoscopy in 2019 which was normal but does have a positive family history of rectal cancer. He presents with melena suggestive of upper GI bleed in the setting of anticoagulation and some NSAID use. But denies abdominal pain. Causes of upper GI bleed ulcers 2/2 h pylori vs nsaid, VS gastritis VS malignancy VS slow lower GI bleed. Iron studies and PT-INR normal. #upper GI bleed #normocytic anemia Received 2u pRBC -Monitor H+H -Transfuse if less than 7 -PPI 40 mg IV -Consult GI, plan for scope -Holding ASA 81 mg BID and plavix in the setting of bleed -Plan to restart anticoagulants as soon as able due to high risk of stroke -HASBLED Bleeding Risk Assessment Tool: Hypertension - 1 point: 1 Abnormal renal and/or hepatic function - 1 point each: 0 Stroke - 1 point: 1 Bleeding tendency/predisposition- 1 point: 1 Labile INR on warfarin - 1 point: 0 Elderly (age >65 years) - 1 point: 0 Drugs (aspirin or NSAIDs) and/or alcohol - 1 point each: 1 Total: 4 0 points: 1.13 bleeds per 100 patient-years 1 point: 1.02 bleeds per 100 patient-years 2 points: 1.88 bleeds per 100 patient-years 3 points: 3.74 bleeds per 100 patient-years 4 points: 8.70 bleeds per 100 patient-years 5 to 9 points: Insufficient data 12/15/2022 <[id number]:> 4 <Annual Stroke Risk:>4.0 #HTN -Resume home beta hernando at lower dose 3.125 mg BID (at home on 25 mg BID) -Continue home amlodipine -Holding home HCTZ-losartan #R hip arthroplasty -Wound vac in place -Wound care nursing -Continue home pregabalin #CVA Stroke in 09/2022 and recent orthopedic surgery -Holding home ASA and plavix -Continuing home statin #Mood disorder -Continue home sertraline #HLD -Continue home crestor #DM A1c: 6, on trulicity and metformin at home -BG checks -sliding scale insulin with meals -hypoglycemia precautions DVT Prophylaxis: SCDs, holding plavix in setting of bleed Diet: NPO for scope Pain management: tylenol PRN Consults: GI Barriers to discharge: acute blood loss anemia, GI bleed requiring evaluation Dispo: home in 2-3 days D/w IM Attending and Residents Gokul Valero, MS4 Medical Student [place] Delirium precautions - Encourage normal sleep-wake cycle: Lights on during the day, frequent orientation. - Night: Maintain sleep hygiene, minimal sleep interruptions - Avoid sedating medications like benzos and antipsychotics as much as possible - Encourage frequent family interaction. Associated attestation - Rosita Tuttle MD - 12/15/2022 9:56 PM CDT Reviewed for educational purposes only. Rosita Tuttle MD * Jose Landry RN - 12/15/2022 2:18 AM CDT Problem: Fall Risk Goal: Fall risk and fall related injury risk are minimized (interventions related to the fall risk can be found in the flowsheet documentation) Outcome: Progressing documented in this encounter H&P Notes * Dave Rodarte MD - 12/14/2022 7:12 PM CDT Internal Medicine Resident History and Physical Admission Date: 12/14/2022 Room Number: 301 Code Status: Full Code Chief complaint: dark stools History of Present Illness: Jose Rutledge is a 57 year old male w/PMHx significant for HLT, HTN, GI bleed / pyloric ulcer in 2014, normal colonoscopy in 2019 (report not available in system), recently replaced hip that got infected and was on spacer and later got a hip arthroplasty and discharged a week ago with a wound vac and on asa 81 mg bid on top of his plavix that he takes for his recent CVA in 09/2022. He has been feeling tired since yesterday and noticed some dark stools in this morning and went to his PCP office, hb was low at 6.6. He was then sent to a nearby hospital where he received a unit of blood and then transferred to [facility] for GI evaluation. He underwent CT angio in the OSH which was non revealing. He denies any N/V, abdominal pain, GI symptoms. hasnt had a BM since this morning. Denies NSAID use. Review of Systems Constitutional: Negative for chills, fever and weight loss. HENT: Negative for sore throat. Eyes: Negative for blurred vision. Respiratory: Negative for cough. Cardiovascular: Negative for chest pain. Gastrointestinal: Positive for melena. Negative for abdominal pain, nausea and vomiting. Genitourinary: Negative for dysuria. Musculoskeletal: Negative for myalgias. Skin: Negative for rash. Neurological: Negative for headaches. Endo/Heme/Allergies: Does not bruise/bleed easily. Psychiatric/Behavioral: The patient is not nervous/anxious. History: Past Medical History: Diagnosis Date ??? [...] ??? Cancer Father rectal; Status: Social History Occupational History ??? Not on file Tobacco Use ??? Smoking status: Never ??? Smokeless tobacco: Never Vaping Use ??? Vaping status: Never Used Substance and Sexual Activity ??? Alcohol use: Not Currently ??? Drug use: No ??? Sexual activity: Yes Partners: Female Allergies to Medications and Reactions Allergies Allergen Reactions ??? Penicillins Angioedema Home Medications: No current facility-administered medications on file prior [...] (Diprosone) 0.05 % ointment as needed ??? calcipotriene (Dovonex) 0.005 % ointment Apply to affected area 2 times daily (Patient not taking: Reported on 12/14/2022) ??? carvedilol (Coreg) 25 MG tablet Take 1 (one) tablet by mouth 2 times daily ??? cloNIDine (Catapres) 0.1 MG tablet Take 1 (one) tablet by mouth 2 times daily ??? clopidogrel (plaVIX) 75 MG tablet Take 1 (one) tablet by mouth once daily ??? cyclobenzaprine (Flexeril) 10 MG tablet Take 1 (one) tablet by mouth 2 times daily ??? diclofenac sodium EC (Voltaren) 75 MG tablet ??? Docusate Sodium (DSS) 100 MG Take 100 mg by mouth 2 times daily ??? dulaglutide (Trulicity) 1.5 MG/0.5ML injection ??? ergocalciferol (Drisdol) 1.25 MG (56138 UT) capsule Take 1 (one) capsule by mouth ??? famotidine (Pepcid) 20 MG tablet Take 1 (one) tablet by mouth 2 times daily (Patient not taking: Reported on 12/14/2022) 70 tablet 0 ??? ferrous sulfate 325 (65 FE) MG tablet Take 1 (one) tablet by mouth once daily ??? HYDROcodone-acetaminophen ([place]) 5-325 MG tablet Take 1 (one) tablet by mouth every 4 hours asneeded for Pain 42 tablet 0 ??? losartan-hydroCHLOROthiazide (Hyzaar) 100-12.5 MG tablet Take 1 (one) tablet by mouth every morning ??? metFORMIN (Glucophage) 1000 MG tablet Take 1 (one) tablet by mouth 2 times daily ??? Multiple Vitamins-Minerals (One-A-Day Mens Health Formula) TABS ??? pregabalin (Lyrica) 50 MG capsule Take 1 (one) capsule by mouth 2 times daily 70 capsule 0 ??? rosuvastatin (Crestor) 20 MG tablet Take 2 (two) tablets by mouth every morning ??? sertraline (Zoloft) 50 MG tablet Take 1 (one) tablet by mouth once daily OBJECTIVE Temp: [99 ??F (37.2 ??C)] 99 ??F (37.2 ??C) Pulse: [79-82] 79 Resp: [18] 18 BP: (130-132)/(71-72) 130/72 Physical Exam Constitutional: Appearance: Normal appearance. HENT: Head: Normocephalic and atraumatic. Right Ear: External ear normal. Left Ear: External ear normal. Nose: Nose normal. Mouth/Throat: Pharynx: Oropharynx is clear. Eyes: Conjunctiva/sclera: Conjunctivae normal. Cardiovascular: Rate and Rhythm: Normal rate and regular rhythm. Pulses: Normal pulses. Heart sounds: Normal heart sounds. Pulmonary: Effort: Pulmonary effort is normal. Breath sounds: Normal breath sounds. Abdominal: Palpations: Abdomen is soft. Musculoskeletal: Cervical back: Normal range of motion. Skin: General: Skin is dry. Capillary Refill: Capillary refill takes less than 2 seconds. Neurological: General: No focal deficit present. Mental Status: He is alert and oriented to person, place, and time. Psychiatric: Mood and Affect: Mood normal. Labs: Labs have been personally reviewed and are remarkable for the following: Hb of 6.5 Imaging: Imaging has been personally reviewed and is summarized as below: No results found. Assessment & Plan Melena, Acute blood loss anemia - hemodynamically stable. Hb now is 6.5, will transfuse 1 unit PRBC. H&H every 6 hrs. PPI bid. Will hold asa and plavix. CLD for tonight, NPO midnight. Ordered nutritional deficiency anemia studies. Texted Dr. León to let him know that the patient has arrived. HTN - will do low dose of his bb. Hold other antihypertensives. Recent R hip replacement with wound vac in place - site looks clean. No concern for infection into the joint. Wound nurse consult. Recent CVA - continue statin. Holding plavix. Consider starting soon as GI bleed is evaluated and treated. DM - a1c of 6. will monitor with daily morning glucose with BMP and hypoglycemia precautions. At home on MF and trulicity. Mood disorder - continue sertraline DVT prophylaxis - scd for now Disposition plan - likely home in 2-3 days Diet - DIET NPO Except: SIPS WITH MEDS DIET CLEAR LIQUID Risk Factors for Mortality Present at Time of Admission Transferred from an acute care hospital Discussed the plan with IM attending. Dave Rodarte MD MPH PGY-2 Internal Medicine [facility] Associated attestation - Diony Camarillo DO - 12/16/2022 6:09 AM CDT I saw this patient with the teaching team. They saw the patient and presented to me their findings.I then independently saw and evaluated the patient. Their documentation reflects our mutual findings with the following notes. Patient presented with acute blood loss anemia from GI bleed. Continue monitor H/H and transfuse pRBC when hgb <7 or symptomatic. GI consulted. Seen by me on 12/15/2022 at 3:55AM S documented in this encounter Procedure Notes * Crystal Weiss RN - 12/15/2022 6:18 PM CDT Report given to Opal PEREZ ,Pt transferred to floor documented in this encounter Consult Notes * Diego León MD - 12/15/2022 5:39 PM CDTAssociated Order(s): IP CONSULT TO GASTROENTEROLOGY GI Consultation Note 12/15/2022 Patient's Primary Care Physician: Faisal Richardson DO Name: Jose Rutledge Age: [age] year old Sex: male Admission date:12/14/2022 Reason for Consultation: Melena, Acute blood loss anemia Chief Complaint/History of Present Illness 57 year old with multiple medical problems (oulined below) who is on Plavix for history of CVA admitted for above problems. He was found to be very anemic at PCP office and Hb was 6.6. He has been transfused and GI consult obtained due to dark/melenotic stool. Patient states he has history of PUD with bleed. Allergies Allergen Reactions ??? Penicillins Angioedema Past Medical History: Diagnosis Date ??? Aortic stenosis mod-sev on 2022 echo ??? CAD (coronary artery disease) ??? High blood pressure ??? LVH (left ventricular hypertrophy) ??? Mixed hyperlipidemia ??? Restless leg syndrome ??? Sleep apnea uses cpap ??? Stroke (CMS/HCC) 2021 balance residual ??? Type 2 diabetes mellitus without complications (CMS/[facility]) Past Surgical History: Procedure Laterality [...] Hypertension Mother ??? Cancer Father rectal; Status: Family history was reviewed and it was not contributory to this admission. Social History Socioeconomic History ??? Marital status: Spouse name: Not on file ??? Number of children: Not on file ??? Years of education: Not on file ??? Highest education level: Not on file Occupational History ??? Not on file Tobacco Use ??? Smoking status: Never ??? Smokeless tobacco: Never Vaping Use ??? Vaping status: Never Used Substance and Sexual Activity ??? Alcohol use: [...] No Stress: No Stress Concern Present (12/14/2022) [employer] [place] - Occupational Stress Questionnaire ??? Feeling of Stress : Not at all Housing Stability: Low Risk (12/14/2022) Housing Stability Vital Sign ??? Unable to Pay for Housing in the Last Year: No ??? Number of Places Lived in the Last Year: 1 ??? Unstable Housing in the Last Year: No MEDICATIONS FOR CURRENT ENCOUNTER: ?? SCHEDULED MEDICATIONS: ?? 0.9% NaCl injection 3 mL, Intracatheter, q8h ?? amLODIPine (Norvasc) tablet 5 mg, Oral, QDAY ?? carvedilol (Coreg) tablet 3.125 mg, Oral, BID ?? pantoprazole (Protonix) injection 40 mg, Intravenous, BID ?? pregabalin (Lyrica) capsule 50 mg, Oral, BID ?? rosuvastatin (Crestor) tablet 40 mg, Oral, QAM ?? sertraline (Zoloft) tablet 50 mg, Oral, QDAY ?? CONTINUOUS MEDICATIONS: Review of Systems: Constitutional: Negative for chills, fever and weight loss. HENT: Negative for sore throat. Eyes: Negative for blurred vision. Respiratory: Negative for cough. Cardiovascular: Negative for chest pain. Gastrointestinal: Positive for melena. Negative for abdominal pain, nausea and vomiting. Genitourinary: Negative for dysuria. Musculoskeletal: Negative for myalgias. Skin: Negative for rash. Neurological: Negative for headaches. Endo/Heme/Allergies: Does not bruise/bleed easily. Psychiatric/Behavioral: The patient is not nervous/anxious. Data Vitals: 12/15/22 0840 12/15/22 0951 12/15/22 1313 12/15/22 1504 BP: 150/79 150/79 164/91 167/90 Pulse: 81 82 83 Resp: 18 18 16 Temp: 99.3 ??F (37.4 ??C) 98.9 ??F (37.2 ??C) 99 ??F (37.2 ??C) SpO2: 97% 97% 97% Weight: Height: Exam General appearance: alert, oreintatedX3, cooperative, no distress HEENT: normal, no icterus, palor in conjuctiva Neck: supple Skin: Normal Heart: regular rhythm, normal S1 and S2, without murmurs, rubs or gallops Lungs: breath sounds normal and symmetric; no rales or wheezes Abdomen: soft without mass, non-distended, non-tender, with normal bowel sounds Extremities: no clubbing, cyanosis or edema Neuro: moves all exrtremities adequately Recent Labs Component Name 12/15/22 1149 12/15/22 0644 12/14/22 1933 WBC 7.8 7.4 7.2 HGB 8.5* 7.7* 6.5* HCT 25.6* 24.1* 19.9* PLTCOUNT 233 217 211 Recent Labs Component Name 12/15/22 0644 12/14/22 1933 SODIUM 136 139 POTASSIUM 3.8 3.8 CHLORIDE 105 109* CO2 22* 22* BUN 12 17 CREATININE 0.82 0.82 GLUCOSE 103 106* CALCIUM 8.8 8.5 ALBUMIN 3.5 3.3* ALKPHOS - 63 ALT - 18 AST - 22 TBIL - 1.2 TPROT - 6.2* EGFR >90 >90 Assessment 1. Acute blood loss anemia 2. Melena Plan 1. PPIs 2. Transfuse as needed 3. EGD, further rec's to follow after Diego León MD Office * Romelia Cline RN - 12/15/2022 11:48 AM CDTAssociated Order(s): IP CONSULT TO WOUND NURSE; IP CONSULT TO WOUND NURSE See wound and skin note dated 12/15/22. Romelia Cline RN 12/15/2022 11:49 AM documented in this encounter OR Notes * Brief Op Note - Diego León MD - 12/15/2022 5:58 PM CDT EGD Normal esophagus 3 gastric ulcers in antrum Gastritis antrum, emily test done No blood in UGI tract Normal duodenum Rec PPIs Avoid NSAIA if possible Would hold Plavix for at least 3 more days before restarting. If blood counts stable, ok to discharge from GI standpoint. documented in this encounter Plan of Treatment Upcoming Encounters Date Type Department Care Team (Late st Contact Info) Description 01/20/2025 10:00 AM CDT Office Visit [facility] - Orthopedic Surgery [address] [place] [phone] Torrey Lafleur MD [address] [facility] [address] [place] [address] documented as of this encounter Procedures Procedure Name Priority Date/Time Associated Diagnosis Comments CARDIAC EKG ORDER 12/25/2022 2:2 0 PM CDT CARDIAC RHYTHM STRIP ORDER 12/25/2022 2:20 PM CDT CBC W AUTO DIFFERENTIAL AM Draw 12/16/2022 5:45 AM CDT COMPREHENSIVE METABOLIC PANEL AM Draw 12/16/2022 5:45 AM CDT CBC W/O DIFFERENTIAL Routine 12/15/2022 7:48 PM CDT Gastrointestinal hemorrhage, unspecified gastrointestinal hemorrhage type HELICOBACTER PYLORI UREASE (STL) STAT 12/15/2022 5:53 PM CDT Gastrointestinal hemorrhage associated with gastritis, unspecified gastritis type EGD Routine 12/15/2022 5:34 PM CDT IN EGD FLEX TRANSORAL W BX SNGL OR MULT 12/15/2022 4:06 PM CDT IN ED EGD FLEX TRANSORAL DX 12/15/2022 4:06 PM CDT GLUCOSE - POINT OF CARE Routine 12/15/2022 12:04 PM CDT CBC W/O DIFFERENTIAL Routine 12/15/2022 11:49 AM CDT Gastrointestinal hemorrhage, unspecified gastrointestinal hemorrhage type GLUCOSE - POINT OF CARE Routine 12/15/2022 8:38 AM CDT CBC W/O DIFFERENTIAL AM Draw 12/15/2022 6:44 AM CDT RENAL FUNCTION PANEL AM Draw 12/15/2022 6:44 AM CDT FOLATE Routine 12/15/2022 6:44 AM CDT VITAMIN B12 AM Draw 12/15/2022 6:44 AM CDT IRON + TRANSFERRIN PANEL Routine 12/15/2022 6:44 AM CDT FERRITIN Routine 12/15/2022 6:44 AM CDT TRANSFUSE RED BLOOD CELL LEUKOREDUCED UNIT(S) Routine 12/15/2022 2:08 AM CDT PREPARE RBC LEUKOREDUCED UNIT Routine 12/15/2022 1:50 AM CDT HEMOGLOBIN A1C STAT 12/14/2022 7:33 PM CDT TYPE + SCREEN PANEL Routine 12/14/2022 7 :33 PM CDT PT-INR STAT 12/14/2022 7:33 PM CDT CBC W AUTO DIFFERENTIAL STAT 12/14/2022 7:33 PM CDT COMPREHENSIVE METABOLIC PANEL STAT 12/14/2022 7:33 PM CDT PHOSPHORUS BLOOD STAT 12/14/2022 7:33 PM CDT MAGNESIUM BLOOD STAT 12/14/2022 7:33 PM CDT GLUCOSE - POINT OF CARE Routine 12/14/2022 7:20 PM CDT documented in this encounter Results * CARDIAC EKG ORDER (12/25/2022 2:20 PM CDT) Narrative 12/25/2022 2:20 PM CDT Ordered by an unspecified provider. Scanned Document CARDIAC SERVICES ORD ERABLES * CARDIAC RHYTHM STRIP ORDER (12/25/2022 2:20 PM CDT) Narrative 12/25/2022 2:20 PM CDT Ordered by an unspecified provider. Scanned Document CARDIAC SERVICES ORD ERABLES * (ABNORMAL) COMPREHENSIVE METABOLIC PANEL (12/16/2022 5:45 AM CDT) Glucose 126(H) 70 - 105 mg/dL 12/16/2022 6:33 AM CDT [facility] Sodium 139 136 - 145 mmol/L 12/16/2022 6:33 AM CDT [facility] Potassium 3.9 3.5 - 5.1 mmol/L 12/16/2022 6:33 AM CDT [facility] Chloride 108(H) 98 - 107 mmol/L 12/16/2022 6:33 AM CDT [facility] CO2 23 23 - 31 mmol/L 12/16/2022 6:33 AM CDT [facility] Calcium 9.1 8.4 - 10.4 mg/dL 12/16/2022 6:33 AM CDT [facility] Anion Gap 8 8 - 18 mmol/L 12/16/2022 6:33 AM CDT [facility] BUN 11 8.4 - 25.7 mg/dL 12/16/2022 6:33 AM CDT [facility] Creatinine 0.81 0.72 - 1.25 mg/dL 12/16/2022 6:33 AM CDT [facility] Alkaline Phosphatase 66 40 - 150 U/L 12/16/2022 6:33 AM CDT [facility] ALT 15 0 - 61 U/L 12/16/2022 6:33 AM CDT [facility] AST 20 5 - 34 U/L 12/16/2022 6:33 AM CDT [facility] Protein Total 6.6 6.4 - 8.3 gm/dL 12/16/2022 6:33 AM CDT [facility] Albumin 3.6 3.5 - 5.2 gm/dL 12/16/2022 6:33 AM CDT [facility] Bilirubin Total 0.9 0.2 - 1.2 mg/dL 12/16/2022 6:33 AM CDT [facility] eGFR by CKD-EPI >90 >=90 mL/min/1.7 3 m2 12/16/2022 6:33 AM CDT [facility] Blood BLOOD SPECIMEN / Unknown Lab Venipuncture / Unknown 12/16/2022 5:45 AM CDT 12/16/2022 6:02 AM CDT Rosita Tuttle MD LAB - CHEMISTRY BENJA [facility] Organization Address City/State/[facility] Co de Phone Number [facility] [address] [place] [address] * (ABNORMAL) CBC W AUTO DIFFERENTIAL (12/16/2022 5:45 AM CDT) WBC 7.1 4.4 - 10.7 x10E9/L 12/16/2022 6:22 AM CDT [facility] WBC Corrected 12/16/2022 6:22 AM CDT [facility] RBC 2.67(L) 3.80 - 5.40 x10E12/L 12/16/2022 6:22 AM CDT [facility] Hemoglobin 8.2(L) 12.0 - 17.6 gm/dL 12/16/2022 6:22 AM CDT [facility] Hematocrit 26.0(L) 35.2 - 51.7 % 12/16/2022 6:22 AM CDT [facility] MCV 97.4 80.7 - 98.3 fl 12/16/2022 6:22 AM CDT [facility] MCH 30.7 26.7 - 34.0 pg 12/16/2022 6:22 AM CDT [facility] MCHC 31.5 30.8 - 35.9 gm/dL 12/16/2022 6:22 AM CDT [facility] Platelet Count 246 153 - 416 x10E9/L 12/16/2022 6:22 AM CDT [facility] RDW-CV 14.9 12.1 - 14.9 % 12/16/2022 6:22 AM CDT [facility] MPV 9.1(L) 9.4 - 12.9 fl 12/16/2022 6:22 AM CDT [facility] Neutrophils % 53.2 44.0 - 73.0 % 12/16/2022 6:22 [facility] Lymphocytes % 26.1 20.0 - 43.0 % 12/16/2022 6:22 AM T [facility] Monocytes % 13.7(H) 5.0 - 13.0 % 12/16/2022 6:22 AM CDT [facility] Eosinophils % 1.8 0.0 - 6.0 % 12/16/2022 6:22 AM CDT [facility] Basophils % 0.4 0.0 - 2.0 % 12/16/2022 6:22 AM T [facility] Immature Granulocytes 4.8(H) 0 - 1 % 12/16/2022 6:[address] [facility] Neutrophil Absolute 3.76 2.01 - 7.14 x10E9/L 12/16/2022 6:22 AM [facility] Lymphocytes Absolute 1.85 1.07 - 3.94 x10E9/L 12/16/2022 6:22 AM CDT [facility] Monocytes Absolute 0.97 0.26 - 1.07 x10E9/L 12/16/2022 6:22 AM CDT [facility] Eosinophils Absolute 0.13 0 - 0.47 x10E9/L 12/16/2022 6:22 AM CDT [facility] Basophils Absolute 0.03 0 - 0.08 x10E9/L 12/16/2022 6:22 AM CDT [facility] Immature Granulocytes Absolute 0.34(H) 0.00 - 0.06 x10E9/L 12/16/2022 6:22 AM CDT [facility] nRBC Auto 1 /100 WBC 12/16/2022 6:22 AM CDT [facility] Blood BLOOD SPECIMEN / Unknown Lab Venipuncture / Unknown 12/16/2022 5:45 AM CDT 12/16/2022 6:00 AM CDT Rosita Tuttle MD LAB - HEMATOLOGY ORD ERABLES [facility] [address] [place] [address] * (ABNORMAL) CBC W/O DIFFERENTIAL (12/15/2022 7:48 PM CDT) WBC 8.6 4.4 - 10.7 x10E9/L 12/15/2022 7:59 PM CDT [facility] RBC 2.71(L) 3.80 - 5.40 x10E12/L 12/15/2022 7:59 PM CDT [facility] Hemoglobin 8.5(L) 12.0 - 17.6 gm/dL 12/15/2022 7:59 PM CDT [facility] Hematocrit 25.4(L) 35.2 - 51.7 % 12/15/2022 7:59 PM CDT [facility] MCV 93.7 80.7 - 98.3 fl 12/15/2022 7:59 PM CDT [facility] MCH 31.4 26.7 - 34.0 pg 12/15/2022 7:59 PM CDT [facility] MCHC 33.5 30.8 - 35.9 gm/dL 12/15/2022 7:59 PM CDT [facility] Platelet Count 251 153 - 416 x10E9/L 12/15/2022 7:59 PM CDT [facility] RDW-CV 14.9 12.1 - 14.9 % 12/15/2022 7:59 PM CDT [facility] MPV 8.8(L) 9.4 - 12.9 fl 12/15/2022 7:59 PM CDT [facility] Blood BLOOD SPECIMEN / Unknown Lab Venipuncture / Unknown 12/15/2022 7:48 PM CDT 12/15/2022 7:57 PM CDT Rosita Tuttle MD LAB - HEMATOLOGY ORD ERABLES Performing Organization Address [facility] Co de Phone Number [facility] [address] [place], [place] [phone] * HELICOBACTER PYLORI UREASE (STL) (12/15/2022 5:53 PM CDT) Helicobacter pylori Urease Initial Negative Negative 12/16/2022 7:11 PM CDT [facility] Helicobacter pylori Urease Final Negative Negative 12/16/2022 7:11 PM CDT [facility] Microbiology GASTRIC BIOPSY SPECIMEN / Unknown 12/15/2022 5:53 PM CDT 12/15/2022 6:43 PM CDT Diego León MD LAB - MICROBIOLOGY O RDSTANBLES Performing Organization Address City/[facility] Co de Phone Number [facility] [address] [place] [address] * EGD (12/15/2022 5:34 PM CDT) Report Endoscopy POC _ Patient Name: Jose Rutledge ? Procedure Date: 12/15/2022 5:34 PM ? Date of : 1965 ?Admit Type: Inpatient Age: 57 ? Gender: Male Ethnicity: Not or ? Race: White Attending MD: Diego León MD, [id number] _ Procedure: ? Upper GI endoscopy Indications: ? Acute post hemorrhagic anemia, Melena Providers: ? Diego León MD (Doctor), Juliana Elise RN, Nikos ? ANA Feliciano Referring MD: ?Faisal Richardson [...] Procedure Code(s): ? --- Professional --- ? 24780, Esophagogastroduod enoscopy, flexible, transoral; with biopsy, ? single or multiple ? --- Technical --- ? 71015, Esophagogastroduod enoscopy, flexible, transoral; with biopsy, ? [...] K92.1, Melena (includes Hematochezia) CPT copyright 2020 [employer]. All rights reserved. The codes documented in this report are preliminary and upon desktop support specialist review may be revised to meet current compliance requirements. Diego León MD 12/15/2022 6:12:03 PM This report has been signed electronically. Number of Addenda: 0 Note Initiated On: 12/15/2022 5:34 PM [facility] 12/15/2022 5:34 PM CDT Diego León MD GI PROCEDURE ORDERAB LES [facility] * GLUCOSE - POINT OF CARE (12/15/2022 12:04 PM CDT) Glucose WB/POC 104 70 - 106 mg/dL 12/15/2022 12:14 PM CDT [facility] Specimen Type Cap Fingerstick 2022 12:14 PM CDT [facility] Blood BLOOD SPECIMEN / Unknown 12/15/2022 12:04 PM CDT 12/15/2022 12:14 PM CDT Rosita Tuttle MD LAB - POINT OF CARE ORDERABLES [facility] [address] [place] [address] * (ABNORMAL) CBC W/O DIFFERENTIAL (12/15/2022 11:49 AM CDT) WBC 7.8 4.4 - 10.7 x10E9/L 12/15/2022 12:01 PM CDT [facility] RBC 2.69(L) 3.80 - 5.40 x10E12/L 12/15/2022 12:01 PM CDT [facility] Hemoglobin 8.5(L) 12.0 - 17.6 gm/dL 12/15/2022 12:01 PM CDT [facility] Hematocrit 25.6(L) 35.2 - 51.7 % 12/15/2022 12:01 PM CDT [facility] MCV 95.2 80.7 - 98.3 fl 12/15/2022 12:01 PM CDT [facility] MCH 31.6 26.7 - 34.0 pg 12/15/2022 12:01 PM CDT [facility] MCHC 33.2 30.8 - 35.9 gm/dL 12/15/2022 12:01 PM CDT [facility] Platelet Count 233 153 - 416 x10E9/L 12/15/2022 12:01 PM T [facility] RDW-CV 15.1(H) 12.1 - 14.9 % 12/15/2022 12:01 PM CDT [facility] MPV 8.9(L) 9.4 - 12.9 fl 12/15/2022 12:01 PM CDT [facility] Blood BLOOD SPECIMEN / Unknown Lab Venipuncture / Unknown 12/15/2022 11:49 AM CDT 12/15/2022 11:57 AM CDT Rosita Tuttle MD LAB - HEMATOLOGY ORD ERABLES [facility] [address] [place] [address] * GLUCOSE - POINT OF CARE (12/15/2022 8:38 AM CDT) [facility] Glucose WB/POC 105 70 - 106 mg/dL 12/15/2022 1:10 PM CDT [facility] Specimen Type Cap Fingerstick 2022 1:10 PM CDT [facility] Blood BLOOD SPECIMEN / Unknown 12/15/2022 8:38 AM CDT 12/15/2022 1:10 PM CDT Rosita Tuttle MD LAB - POINT OF CARE ORDERABLES [facility] [address] [place] [phone] * FERRITIN (12/15/2022 6:44 AM CDT) Ferritin 102 22 - 275 ng/mL 12/15/2022 8:50 AM CDT [facility] Blood BLOOD SPECIMEN / Unknown Lab Venipuncture / Unknown 12/15/2022 6:44 AM CDT 12/15/2022 7:37 AM CDT Nancy Bianchi MD LAB - CHEMISTRY O RDERABLES [facility] [address] [place] [address] * VITAMIN B12 (12/15/2022 6:44 AM CDT) Vitamin B12 334 213 - 816 pg/mL 12/15/2022 8:50 AM CDT [facility] Blood BLOOD SPECIMEN / Unknown Lab Venipuncture / Unknown 12/15/2022 6:44 AM CDT 12/15/2022 7:37 AM CDT Nancy Bianchi MD LAB - CHEMISTRY O RDERABLES Performing Organization Address City/[facility]/ZIP Co de Phone Number [facility] [address] [place] [phone] * FOLATE (12/15/2022 6:44 AM CDT) Pathologist [facility] Folate 17.9 7.0 - 31.4 ng/mL 12/15/2022 8:50 AM CDT [facility] Blood BLOOD SPECIMEN / Unknown Lab Venipuncture / Unknown 12/15/2022 6:44 AM CDT 12/15/2022 7:37 AM CDT Nancy Bianchi MD LAB - CHEMISTRY O RDERABLES [facility] [address] [place] [phone] * IRON + TRANSFERRIN PANEL (12/15/2022 6:44 AM CDT) Iron 65 65 - 175 ug/dL 12/15/2022 8:14 AM CDT [facility] Transferrin 217 174 - 364 mg/dL 12/15/2022 8:14 AM CDT [facility] TIBC Calculated 271 240 - 450 ug/dL 12/15/2022 8:14 AM CDT [facility] Iron Saturation % 24 20 - 50 % 12/15/2022 8:14 AM CDT [facility] Blood BLOOD SPECIMEN / Unknown Lab Venipuncture / Unknown 12/15/2022 6:44 AM CDT 12/15/2022 7:37 AM CDT Julioricky Jm Bianchi MD LAB - CHEMISTRY O RDERABLES [facility] [address] [place] [address] * (ABNORMAL) CBC W/O DIFFERENTIAL (12/15/2022 6:44 AM CDT) WBC 7.4 4.4 - 10.7 x10E9/L 12/15/2022 7:51 AM CDT [facility] RBC 2.46(L) 3.80 - 5.40 x10E12/L 12/15/2022 7:51 AM CDT [facility] Hemoglobin 7.7(L) 12.0 - 17.6 gm/dL 12/15/2022 7:51 AM CDT [facility] Hematocrit 24.1(L) 35.2 - 51.7 % 12/15/2022 7:51 AM CDT [facility] MCV 98.0 80.7 - 98.3 fl 12/15/2022 7:51 AM CDT [facility] MCH 31.3 26.7 - 34.0 pg 12/15/2022 7:51 AM CDT [facility] MCHC 32.0 30.8 - 35.9 gm/dL 12/15/2022 7:51 AM CDT [facility] Platelet Count 217 153 - 416 x10E9/L 12/15/2022 7:51 AM CDT [facility] RDW-CV 15.0(H) 12.1 - 14.9 % 12/15/2022 7:51 AM CDT [facility] MPV 9.6 9.4 - 12.9 fl 12/15/2022 7:51 AM CDT [facility] Blood BLOOD SPECIMEN / Unknown Lab Venipuncture / Unknown 12/15/2022 6:44 AM CDT 12/15/2022 7:38 AM CDT Julioricky Jm Bianchi MD LAB - HEMATOLOGY ORDERABLES [facility] [address] [place] [phone] * (ABNORMAL) RENAL FUNCTION PANEL (12/15/2022 6:44 AM CDT) Pathologist [facility] Glucose 103 70 - 105 mg/dL 12/15/2022 8:14 AM CDT [facility] Sodium 136 136 - 145 mmol/L 12/15/2022 8:14 AM [facility] Potassium 3.8 3.5 - 5.1 mmol/L 12/15/2022 8:14 AM CDT [facility] Chloride 105 98 - 107 mmol/L 12/15/2022 8:14 AM CDT [facility] CO2 22(L) 23 - 31 mmol/L 12/15/2022 8:14 AM CDT [facility] Calcium 8.8 8.4 - 10.4 mg/dL 12/15/2022 8:14 AM T [facility] Anion Gap 9 8 - 18 mmol/L 12/15/2022 8:14 AM CDT [facility] BUN 12 8.4 - 25.7 mg/dL 12/15/2022 8:14 AM CDT [facility] Creatinine 0.82 0.72 - 1.25 mg/dL 12/15/2022 8:14 AM CDT [facility] Albumin 3.5 3.5 - 5.2 gm/dL 12/15/2022 8:14 AM CDT [facility] Phosphorus 3.0 2.3 - 4.7 mg/dL 12/15/2022 8:14 AM T [facility] eGFR by CKD-EPI >90 >=90 mL/min/1.7 3 m2 12/15/2022 8:14 AM CDT [facility] Blood BLOOD SPECIMEN / Unknown Lab Venipuncture / Unknown 12/15/2022 6:44 AM CDT 12/15/2022 7:37 AM CDT Nancy Bianchi MD LAB - CHEMISTRY O RDERABLES Performing Organization Address [facility]/ZIP Co de Phone Number [facility] [address] [place] [address] * TRANSFUSE RED BLOOD CELL LEUKOREDUCED UNIT(S) (12/15/2022 4:58 AM CDT) Nancy Bianchi MD NURSING - BLOOD P PAU TRANSFUSION * TRANSFUSE RED BLOOD CELL LEUKOREDUCED UNIT(S), 1 Units (12/15/2022 4:58 AM CDT) Nancy Bianchi MD NURSING - BLOOD P PAU TRANSFUSION * PREPARE (CROSSMATCH) RBC UNIT(S), 1 Units (12/15/2022 1:50 AM CDT) Pathologist [facility] Unit Description AS1 LR PRBC [facility] Unit ABO O [facility] Rh POS [facility] Product Number R02 [facility] Unit Donor # [id number] [facility] Unit Status transfused [facility] Product Code [id number] [facility] Blood Type Barcode 5100 [facility] Expiration Date [id number] [facility] Blood Bank BLOOD SPECIMEN / Unknown 12/14/2022 8:03 PM CDT Nancy Bianchi MD LAB - BLOOD BANK ORDERABLES Performing Organization Address [facility]/ZIP Co de Phone Number [facility] [address] [phone] * (ABNORMAL) HEMOGLOBIN A1C (12/14/2022 7:33 PM CDT) [facility] Hemoglobin A1c 6.0(H) <5.7 % 12/14/2022 9:12 PM CDT [facility] Estimated Average Glucose 126 mg/dL 12/14/2022 9:12 PM CDT [facility] Blood BLOOD SPECIMEN / Unknown Lab Venipuncture / Unknown 12/14/2022 7:33 PM CDT 12/14/2022 8:03 PM CDT Narrative [facility] - 12/14/2022 9:12 PM CDT HbA1c Interpretation: Normal: < 5.7% Pre-diabetes: 5.7-6.4% [...] exceeds 5% in the specimen. The [employer] Work[employer] assay for the measurement of HbA1c is a National Glycohemoglobin Standardization Program (NGSP) certified method. Nancy Bianchi MD LAB - CHEMISTRY O RDERAAILYN Performing Organization Address [facility] Co de Phone Number [facility] [address] [place] [phone] * PHOSPHORUS BLOOD (12/14/2022 7:33 PM CDT) [facility] Phosphorus 3.5 2.3 - 4.7 mg/dL 12/14/2022 8:21 PM CDT [facility] Blood BLOOD SPECIMEN / Unknown Lab Venipuncture / Unknown 12/14/2022 7:33 PM CDT 12/14/2022 8:03 PM CDT Nancy Bianchi MD LAB - CHEMISTRY O RDERABLES Performing Organization Address City/[facility]/ZIP Co de Phone Number [facility] [address] [place] [address] * MAGNESIUM BLOOD (12/14/2022 7:33 PM CDT) Magnesium 1.7 1.6 - 2.6 mg/dL 12/14/2022 8:21 PM CDT [facility] Blood BLOOD SPECIMEN / Unknown Lab Venipuncture / Unknown 12/14/2022 7:33 PM CDT 12/14/2022 8:03 PM CDT Nancy Bianchi MD LAB - CHEMISTRY O RDERABLES [facility] [address] [place] [address] * TYPE + SCREEN PANEL (12/14/2022 7:33 PM CDT) ABO Rh O POS 12/14/2022 8:48 PM CDT [facility] Comment:History checked. Antibody Screen NEG 8:48 PM CDT [facility] Blood Bank BLOOD SPECIMEN / Unknown Lab Venipuncture / Unknown 12/14/2022 7:33 PM CDT 12/14/2022 8:03 PM CDT Nancy Bianchi MD LAB - BLOOD BANK ORDERABLES [facility] [address] [place] [address] * PT-INR (12/14/2022 7:33 PM CDT) PT 13.7 12.1 - 14.8 sec 12/14/2022 8:16 PM CDT [facility] INR 1.1 0.9 - 1.1 12/14/2022 8:16 PM CDT [facility] Blood BLOOD SPECIMEN / Unknown Lab Venipuncture / Unknown 12/14/2022 7:33 PM CDT 12/14/2022 8:03 PM CDT Narrative [facility] - 12/14/2022 8:16 PM CDT Conventional Warfarin Anticoagulant Therapy: INR Reference Range: ??2.0-3.0 Intensive Warfarin Anticoagulant Therapy: INR Reference Range: ? 2.5-3.5 Julioricky Jm Bianchi MD LAB - COAGULATION ORDERABLES [facility] [address] [place], [place] [phone] * (ABNORMAL) COMPREHENSIVE METABOLIC PANEL (12/14/2022 7:33 PM CDT) [facility] Glucose 106(H) 70 - 105 mg/dL 12/14/2022 8:21 PM CDT [facility] Sodium 139 136 - 145 mmol/L 12/14/2022 8:21 PM CDT [facility] Potassium 3.8 3.5 - 5.1 mmol/L 12/14/2022 8:21 PM CDT [facility] Chloride 109(H) 98 - 107 mmol/L 12/14/2022 8:21 PM CDT [facility] CO2 22(L) 23 - 31 mmol/L 12/14/2022 8:21 PM CDT [facility] Calcium 8.5 8.4 - 10.4 mg/dL 12/14/2022 8:21 PM CDT [facility] Anion Gap 8 8 - 18 mmol/L 12/14/2022 8:21 PM CDT [facility] BUN 17 8.4 - 25.7 mg/dL 12/14/2022 8:21 PM CDT [facility] Creatinine 0.82 0.72 - 1.25 mg/dL 12/14/2022 8:21 PM CDT [facility] Alkaline Phosphatase 63 40 - 150 U/L 12/14/2022 8:21 PM CDT [facility] ALT 18 0 - 61 U/L 12/14/2022 8:21 PM CDT [facility] AST 22 5 - 34 U/L 12/14/2022 8:21 PM CDT [facility] Protein Total 6.2(L) 6.4 - 8.3 gm/dL 12/14/2022 8:21 PM CDT [facility] Albumin 3.3(L) 3.5 - 5.2 gm/dL 12/14/2022 8:21 PM CDT [facility] Bilirubin Total 1.2 0.2 - 1.2 mg/dL 12/14/2022 8:21 PM CDT [facility] eGFR by CKD-EPI >90 >=90 mL/min/1.7 3 m2 12/14/2022 8:21 PM CDT [facility] Blood BLOOD SPECIMEN / Unknown Lab Venipuncture / Unknown 12/14/2022 7:33 PM CDT 12/14/2022 8:03 PM CDT Julioricky Jm Bianchi MD LAB - CHEMISTRY O RDERABLES [facility] [address] [place] [address] * (ABNORMAL) CBC W AUTO DIFFERENTIAL (12/14/2022 7:33 PM CDT) WBC 7.2 4.4 - 10.7 x10E9/L 12/14/2022 8:15 PM CDT [facility] WBC Corrected 12/14/2022 8:15 PM CDT [facility] RBC 2.06(L) 3.80 - 5.40 x10E12/L 12/14/2022 8:15 PM CDT [facility] Hemoglobin 6.5(L) 12.0 - 17.6 gm/dL 12/14/2022 8:15 PM CDT [facility] Hematocrit 19.9(L) 35.2 - 51.7 % 12/14/2022 8:15 PM CDT [facility] MCV 96.6 80.7 - 98.3 fl 12/14/2022 8:15 PM CDT [facility] MCH 31.6 26.7 - 34.0 pg 12/14/2022 8:15 PM CDT [facility] MCHC 32.7 30.8 - 35.9 gm/dL 12/14/2022 8:15 PM CDT [facility] Platelet Count 211 153 - 416 x10E9/L 12/14/2022 8:15 PM CDT [facility] RDW-CV 14.8 12.1 - 14.9 % 12/14/2022 8:15 PM CDT [facility] MPV 9.4 9.4 - 12.9 fl 12/14/2022 8:15 PM CDT [facility] Neutrophils % 51.3 44.0 - 73.0 % 12/14/2022 8:15 PM CDT [facility] Lymphocytes % 30.3 20.0 - 43.0 % 12/14/2022 8:15 PM CDT [facility] Monocytes % 11.9 5.0 - 13.0 % 12/14/2022 8:15 PM CDT [facility] Eosinophils % 2.0 0.0 - 6.0 % 12/14/2022 8:15 PM CDT [facility] Basophils % 0.4 0.0 - 2.0 % 12/14/2022 8:15 PM CDT [facility] Immature Granulocytes 4.1(H) 0 - 1 % 12/14/2022 8:15 PM CDT [facility] Neutrophil Absolute 3.68 2.01 - 7.14 x10E9/L 12/14/2022 8:15 PM CDT [facility] Lymphocytes Absolute 2.17 1.07 - 3.94 x10E9/L 12/14/2022 8:15 PM CDT [facility] Monocytes Absolute 0.85 0.26 - 1.07 x10E9/L 12/14/2022 8:15 PM CDT [facility] Eosinophils Absolute 0.14 0 - 0.47 x10E9/L 12/14/2022 8:15 PM CDT [facility] Basophils Absolute 0.03 0 - 0.08 x10E9/L 12/14/2022 8:15 PM CDT [facility] Immature Granulocytes Absolute 0.29(H) 0.00 - 0.06 x10E9/L 12/14/2022 8:15 PM CDT [facility] nRBC Auto 1 /100 WBC 12/14/2022 8:15 PM CDT [facility] Blood BLOOD SPECIMEN / Unknown Lab Venipuncture / Unknown 12/14/2022 7:33 PM CDT 12/14/2022 8:03 PM CDT Nancy Bianchi MD LAB - HEMATOLOGY ORDERABLES [facility] [address] [place] [address] * (ABNORMAL) GLUCOSE - POINT OF CARE (12/14/2022 7:20 PM CDT) Glucose WB/POC 110(H) 70 - 106 mg/dL 12/14/2022 7:34 PM CDT [facility] Specimen Type Cap Fingerstick 2022 7:34 PM CDT [facility] Blood BLOOD SPECIMEN / Unknown 12/14/2022 7:20 PM CDT 12/14/2022 7:34 PM CDT Nancy Bianchi MD LAB - POINT OF CA RE ORDERABLES [facility] [address] [place] [address] documented in this encounter Visit Diagnoses Diagnosis Gastrointestinal hemorrhage, unspecified gastrointestinal hemorrhage type- Primary Gastrointestinal hemorrhage, unspecified gastrointestinal hemorrhage type Gastrointestinal hemorrhage associated with gastritis, unspecified gastritis type documented in this encounter Administered Medications Inactive Administered Medications - up to 3 most recent administrations Medication Order MAR Action Action Date Dose Rate Site 0.9% NaCl injection 1-10 mL 1-10 mL, Intracatheter, PRN, Other, peripheral line flush, Starting on Sun12/14/22 at 1954, Until 12/16/22 at 1307, Flush peripheral IV catheter with 1-10 mL of normal saline before and after medications and prn to clear blood from the line or to verify patency. 0.9% NaCl injection 3 mL 3 mL, Intracatheter, EVERY 8 HOURS, First dose on Sun12/14/22 at 2200, Until Discontinued, Flush peripheral IV catheter with 3 mL of normal saline every 8 hours. $ Given 12/15/2022 8:33 PM CDT 3 mL $ Given 12/15/2022 5:00 AM CDT 3 mL $ Given 12/14/2022 10:00 PM CDT 3 mL acetaminophen (Tylenol) tablet 650 mg 650 mg, Oral, EVERY 4 HOURS PRN, Fever, Mild Pain, Headache, For temperature GREATER than 101 , Starting on Sun12/14/22 at 1955, Until 12/16/22 at 1307, Patient preference for lesser PRN pain meds may be honored when the patient requests a less strong medication, a lower dose, or a less intrusive route of administration when the lesser drug, dose and route have been ordered for the patient. This patient request must be documented in the MAR. $ Given 12/16/2022 6:22 AM CDT 650 m g $ Given 12/15/2022 8:31 PM CDT 650 mg amLODIPine (Norvasc) tablet 5 mg 5 mg, Oral, DAILY, First dose on Sun12/15/22 at 0930, Until Discontinued $ Given 12/16/2022 9:42 AM CDT 5 mg $ Given 12/15/2022 9:51 AM CDT 5 mg carvedilol (Coreg) tablet 3.125 mg 3.125 mg, Oral, 2 TIMES DAILY, First dose on Hetal 12/14/22 at 2100, Until Discontinued, Take with food $ Given 12/16/2022 9:42 AM CDT 3.125 mg $ Given 12/15/2022 8:31 PM CDT 3.125 mg $ Given 12/15/2022 7:58 AM CDT 3.125 mg dextrose 10 % IV bolus 12.5 g, at 999 mL/hr, Intravenous, PRN, Other, Bedside Glucose less than 70 mg/dL -If NOT able to eat and/or NPO and with IV Access, Starting on Hetal 12/14/22 at 2109, Until 12/16/22 at 1307, If NOT able to eat and/or NPO [...] NPO and with IV Access, Starting on Hetal 12/14/22 at 2109, Until 12/16/22 at 1307, If NOT able to eat and/or NPO [...] OF HYPOGLYCEMIC EVENT. glucagon (Glucagen) injection 1 mg 1 mg, Subcutaneous, PRN, Bedside Glucose less than 70 mg/dL - If NOT able to eat and/or NPO and withOUT IV Access, Starting on Hetal 12/14/22 at 2109, Until 12/16/22 at 1307, If NOT able to eat and/or NPO and NO IV Access: For Bedside glucose 54-69 mg/dL - Give 1 mg subcutaneous For Bedside Glucose LESS than 54 mg/dl - verify with a second bedside glucose (from a different site) - Give 1 mg subcutaneous Re-check and Re-treat blood glucose EVERY 10-25 minutes until blood glucose GREATER than or equal to 80 mg/dl. NOTIFY PROVIDER OF HYPOGLYCEMIC EVENT. Reconstitute vial with 1 mL of sterile water for injection for a final concentration of 1 mg/mL; shake vial gently; use immediately and discard unused portion glucose (Diabetic Use) oral gel Oral, PRN, Other, Bedside Glucose less than 70 mg/dL -If able to eat and does not have swallowing difficulties, Starting on Hetal 12/14/22 at 2109, Until 12/16/22 at 1307, If able to eat and is better [...] for choices) NOTIFY PROVIDER OF HYPOGLYCEMIC EVENT. hydroCHLOROthiazide (Hydrodiuril) tablet 12.5 mg 12.5 mg, Oral, DAILY, First dose on Sun12/16/22 at 0900, Until Discontinued $ Given 12/16/2022 9:42 AM CDT 12.5 mg losartan (Cozaar) tablet 50 mg 50 mg, Oral, DAILY, First dose on Sun12/16/22 at 0900, Until Discontinued $ Given 12/16/2022 9:42 AM CDT 50 mg pantoprazole (Protonix) injection 40 mg 40 mg, Intravenous, 2 TIMES DAILY, First dose on Sun12/14/22 at 2100, Until Discontinued, For every 40 mg of pantoprazole mix with 10 mL Normal Saline (final concentration = 4 mg/mL). Inject SLOWLY over 2 min. $ Given 12/15/2022 7:57 AM CDT 40 mg $ Given 12/14/2022 8:41 PM CDT 40 mg pantoprazole EC (Protonix) tablet 40 mg 40 mg, Oral, 2 TIMES DAILY, First dose on Sun12/15/22 at 2100, Until Discontinued, Do not crush, chew, or cut in half. $ Given 12/16/2022 9:43 AM CDT 40 mg $ Given 12/15/2022 8:31 PM CDT 40 mg pregabalin (Lyrica) capsule 50 mg 50 mg, Oral, 2 TIMES DAILY, First dose on Sun12/14/22 at 2100, Until Discontinued $ Given 12/16/2022 9:42 AM CDT 50 m g $ Given 12/15/2022 8:31 PM CDT 50 mg $ Given 12/15/2022 7:58 AM CDT 50 mg rosuvastatin (Crestor) tablet 40 mg 40 mg, Oral, EVERY MORNING, First dose on Sun12/15/22 at 0700, Until Discontinued $ Given 12/16/2022 6:22 AM CDT 40 m g $ Given 12/15/2022 7:58 AM CDT 40 mg sertraline (Zoloft) tablet 50 mg 50 mg, Oral, DAILY, First dose on Sun12/14/22 at 2030, Until Discontinued, Avoid concurrent administration with grapefruit juice $ Given 12/16/2022 9:42 AM CDT 50 mg $ Given 12/15/2022 7:58 AM CDT 50 mg $ Given 12/14/2022 8:41 PM CDT 50 mg documented in this encounter Active and Recently Administered Medications Times are shown in CDT. Scheduled Medication Order 12/14/2022 12/15/2022 12/16/2022 0.9% NaCl injection 3 mL(Linked Group 1) 3 mL, Intracatheter, EVERY 8 HOURS, First dose on Sun12/14/22 at 2200, Until Discontinued, Flush peripheral IV catheter with 3 mL of normal saline every 8 hours. 2200 ($ Given - Provider: Jose Landry RN) 0500 ($ Given - Provider: Jose Landry RN)1400 (Canceled Entry - Provider: Isabel Cantrell RN - Comment: unsure if administered. Pt in procedure at due time)2032 ($ Given - Provider: Isabel Cantrell, ANA) 0622 (Not Administered - Provider: Isabel Cantrell RN - Reason: Loss of Access) amLODIPine (Norvasc) tablet 5 mg 5 mg, Oral, DAILY, First dose on Sun12/15/22 at 0930, Until Discontinued 0951 ($ Given - Provider: Opal Grissom RN) 0942 ($ Given - Provider: Opal Grissom RN) carvedilol (Coreg) tablet 3.125 mg 3.125 mg, Oral, 2 TIMES DAILY, First dose on Sun12/14/22 at 2100, Until Discontinued, Take with food 2040 ($ Given - Provider: Jose Landry RN) 0758 ($ Given - Provider: Opal Grissom RN)2030 ($ Given - Provider: Isabel Cantrell RN) 0942 ($ Given - Provider: Opal Grissom RN) hydroCHLOROthiazide (Hydrodiuril) tablet 12.5 mg(Linked Group 2) 12.5 mg, Oral, DAILY, First dose on Sun12/16/22 at 0900, Until Discontinued 941 ($ Given - Provider: Opal Grissom RN) losartan (Cozaar) tablet 50 mg(Linked Group 2) 50 mg, Oral, DAILY, First dose on Sun12/16/22 at 0900, Until Discontinued 941 ($ Given - Provider: Opal Grissom RN) pantoprazole (Protonix) injection 40 mg (CANCELED) 40 mg, Intravenous, 2 TIMES DAILY, First dose on Sun12/14/22 at 2100, Until Discontinued, For every 40 mg of pantoprazole mix with 10 mL Normal Saline (final concentration = 4 mg/mL). Inject SLOWLY over 2 min. 2040 ($ Given - Provider: Jose Landry RN) 075 ($ Given - Provider: Opal Grissom RN) pantoprazole EC (Protonix) tablet 40 mg 40 mg, Oral, 2 TIMES DAILY, First dose on Sun12/15/22 at 2100, Until Discontinued, Do not crush, chew, or cut in half. 2030 ($ Given - Provider: Isabel Cantrell RN) 0943 ($ Given - Provider: Opal Grissom RN) pregabalin (Lyrica) capsule 50 mg 50 mg, Oral, 2 TIMES DAILY, First dose on Sun12/14/22 at 2100, Until Discontinued 2040 ($ Given - Provider: Jose Landry RN) 075 ($ Given - Provider: Opal Grissom RN)2030 ($ Given - Provider: Isabel Cantrell RN) 0942 ($ Given - Provider: Opal Grissom RN) rosuvastatin (Crestor) tablet 40 mg 40 mg, Oral, EVERY MORNING, First dose on Sun12/15/22 at 0700, Until Discontinued 757 ($ Given - Provider: Opal Grissom RN) 0622 ($ Given - Provider: Isabel Cantrell RN) sertraline (Zoloft) tablet 50 mg 50 mg, Oral, DAILY, First dose on Sun12/14/22 at 2030, Until Discontinued, Avoid concurrent administration with grapefruit juice 2040 ($ Given - Provider: Jose Landry RN) 075 ($ Given - Provider: Opal Grissom RN) 0942 ($ Given - Provider: Opal Grissom RN) PRN Medication Order 12/14/2022 12/15/2022 12/16/2022 0.9% NaCl injection 1-10 mL(Linked Group 1) 1-10 mL, Intracatheter, PRN, Other, peripheral line flush, Starting on Hetal 12/14/22 at 1954, Until 12/16/22 at 1307, Flush peripheral IV catheter with 1-10 mL of normal saline before and after medications and prn to clear blood from the line or to verify patency. acetaminophen (Tylenol) tablet 650 mg 650 mg, Oral, EVERY 4 HOURS PRN, Fever, Mild Pain, Headache, For temperature GREATER than 101 , Starting on Hetal 12/14/22 at 1955, Until 12/16/22 at 1307, Patient preference for lesser PRN pain meds may be honored when the patient requests a less strong medication, a lower dose, or a less intrusive route of administration when the lesser drug, dose and route have been ordered for the patient. This patient request must be documented in the 2030 ($ Given - Provider: Isabel Cantrell, ANA) 621 ($ Given - Provider: Isabel Cantrell, RN) dextrose 10 % IV bolus(Linked Group 3) 12.5 g, at 999 mL/hr, Intravenous, PRN, Other, Bedside Glucose less than 70 mg/dL -If NOT able to eat and/or NPO and with IV Access, Starting on Hetal 12/14/22 at 2109, Until 12/16/22 at 1307, If NOT able to eat and/or NPO [...] NPO and with IV Access, Starting on Hetal 12/14/22 at 2109, Until 12/16/22 at 1307, If NOT able to eat and/or NPO [...] OF HYPOGLYCEMIC EVENT. glucagon (Glucagen) injection 1 mg 1 mg, Subcutaneous, PRN, Bedside Glucose less than 70 mg/dL - If NOT able to eat and/or NPO and withOUT IV Access, Starting on Hetal 12/14/22 at 2109, Until 12/16/22 at 1307, If NOT able to eat and/or NPO and NO IV Access: For Bedside glucose 54-69 mg/dL - Give 1 mg subcutaneous For Bedside Glucose LESS than 54 mg/dl - verify with a second bedside glucose (from a different site) - Give 1 mg subcutaneous Re-check and Re-treat blood glucose EVERY 10-25 minutes until blood glucose GREATER than or equal to 80 mg/dl. NOTIFY PROVIDER OF HYPOGLYCEMIC EVENT. Reconstitute vial with 1 mL of sterile water for injection for a final concentration of 1 mg/mL; shake vial gently; use immediately and discard unused portion glucose (Diabetic Use) oral gel Oral, PRN, Other, Bedside Glucose less than 70 mg/dL -If able to eat and does not have swallowing difficulties, Starting on Hetal 12/14/22 at 2109, Until 12/16/22 at 1307, If able to eat and is better [...] for choices) NOTIFY PROVIDER OF HYPOGLYCEMIC EVENT. Linked Groups Order Group 1: SALINE LOCK, INSERT AND MAINTAIN (CANCELED) Routine, CONTINUOUS, Starting on Hetal 12/14/22 at 2000, Until Specified, New collection And 0.9% NaCl injection 3 mLJump to med 3 mL, Intracatheter, EVERY 8 HOURS, First dose on Hetal 12/14/22 at 2200, Until Discontinued, Flush peripheral IV catheter with 3 mL of normal saline every 8 hours. And 0.9% NaCl injection 1-10 mLJump to med 1-10 mL, Intracatheter, PRN, Other, peripheral line flush, Starting on Hetal 12/14/22 at 1954, Until 12/16/22 at 1307, Flush peripheral IV catheter with 1-10 mL of normal saline before and after medications and prn to clear blood from the line or to verify patency. Group 2: losartan (Cozaar) tablet 50 mgJump to med 50 mg, Oral, DAILY, First dose on [facility] 12/16/22 at 0900, Until Discontinued And hydroCHLOROthiazide (Hydrodiuril) tablet 12.5 mgJump to med 12.5 mg, Oral, DAILY, First dose on [facility] 12/16/22 at 0900, Until Discontinued Group 3: dextrose 10 % IV bolusJump to med 12.5 g, at 999 mL/hr, Intravenous, PRN, Other, Bedside Glucose less than 70 mg/dL -If NOT able to eat and/or NPO and with IV Access, Starting on Hetal 12/14/22 at 2109, Until 12/16/22 at 1307, If NOT able to eat and/or NPO [...] NPO and with IV Access, Starting on Hetal 12/14/22 at 2109, Until 12/16/22 at 1307, If NOT able to eat and/or NPO [...] IV STAT NOTIFY PROVIDER OF HYPOGLYCEMIC EVENT. documented in this encounter Care Teams Physical Laboratory Assistant Relationship Specialty Start Date End Date Faisal Richardson DO [address] [place] [phone] PCP - General Family Medicine 11/27/22 documented as of this encounter
--- OUTSIDE RECORDS SUMMARY | 2024-07-28 00:59 | XMS_ITS | Encounter Summary ---
Author Organization [facility] Address [address] [place] [address] Care Team Providers Care Mechanical Striper Name Role Phone Faisal Richardson DO Primary Care Provider [phone] Reason for Referral * Consultation (Routine) - Closed Specialty Diagnoses / Procedures Referred By Contac t Referred To Contact Pain Management Diagnoses S/P total right hip arthroplasty Right leg pain Lefty Diamond MD [address] [place] [address] [facility] [address] [place] [address] Referral ID Status Reason Start Date Expiration Date V isits Requested Visits Authorized [id number] Closed Specialty Services Required 07/31/2023 10/30/2023 1 1 Scheduling Instructions Right iliopsoas bursa steroid injection with ultrasound and fluoroscopy guidance with local Will need Ancef 2 gm prior to injection and no need to stop Plavix MODELING ARCHITECT Reason for Visit * Reason Comments Pain Leg Pain in right thigh * Consultation (Routine) - Closed Specialty Diagnoses / Procedures Referred By Contac t Referred To Contact Diagnoses S/P revision of total hip Torrey Lafleur MD [address] [place] [id number] Bao Mcfadden MD [address] [place] [address] Referral ID Status Reason Start Date Expiration Date V isits Requested Visits Authorized [id number] Closed Specialty Services Required 07/10/2023 07/09/2024 1 1 Encounter Details Date Type Department Care Team (Late st Contact Info) Description 07/12/2023 9:00 AM DATA MODELING ARCHITECT Office Visit [facility] [address] [facility] [address] [place] [phone] Lefty Diamond MD [address] [phone] S/P total right hip arthroplasty (Primary Dx); Right leg pain Social History Tobacco Use Types Packs/Day [...] and heating? Not hard at all 12/14/2022 [employer] [facility] - Occupational Stress [...] place to sleep or slept in a chcf (including now)? No 12/14/2022 Sex and Gender Information Value Date Recorded Sex Assigned at Not on file Gender Identity Not on file Sexual Orientation Not on file documented as of this encounter Last Filed Vital Signs Vital Sign Reading Time Taken Comments Blood Pressure 158/79 07/12/2023 8:50 AM DATA MODELING ARCHITECT Pulse 76 07/12/2023 8:50 AM DATA MODELING ARCHITECT Temperature - - Respiratory Rate 20 07/12/2023 8:50 AM DATA MODELING ARCHITECT Oxygen Saturation - - Inhaled Oxygen Concentration - - Weight 127.9 kg (282 lb) 07/12/2023 8:50 AM DATA MODELING ARCHITECT Height 182.9 cm (6') 07/12/2023 8:50 AM DATA MODELING ARCHITECT Body Mass Index 38.25 07/12/2023 8:50 AM DATA MODELING ARCHITECT documented in this encounter Functional Status Functional [...] as of this encounter Progress Notes * Lefty Diamond MD - 07/12/2023 8:32 AM CST Jose Rutledge is referred to Pain Management by Dr Lafleur to evaluate right leg pain in the upper inner right thigh that has been present for 1 year following a right hip replacement.. Today's pain index score is 5 out of 10 and the worst index score in the last 30 days is 6 out of 10. Functional disability index score of 65today. Pain can be described as throbbing aching and associated symptoms include weakness. Activities that increase pain include sitting , exercise, walking, standing, lying down, driving/riding in a car, rolling in bed, moving from sitting to standing and taking stairs. Factors that improve pain include medicine. Conservative treatments that have been tried and failed include TENS unit. Physical therapy completed most recently in January of 2023 at [facility] in [place], [place] for 2 months (at 4 week intervals). Medication therapy has included none. NSAIDS that have been tried include Tylenol OTC Blood thinners currently taking include Plavix (clopidogrel) and are prescibed by Admitting Representative. MODELING ARCHITECT documented in this encounter H&P Notes * Brenda Bal MD - 07/12/2023 9:13 AM CST Jose Rutledge is a 58 year old male Chief Complaint Patient presents with ??? Pain Leg Pain in right thigh Jose Rutledge is referred to Pain Management by Dr Lafleur to evaluate right leg pain in the upper inner right thigh that has been present for 1 year following a right hip replacement. Today's pain index score is 5 out of 10 and the worst index score in the last 30 days is 6 out of 10. Functional disability index score of 65 today. Pain can be described as throbbing, aching, sharp, with no associated symptoms. Activities that increase pain include standing up from sitting, flexion of the right hip, exercise,walking, standing, lying down, driving/riding in a car, rolling in bed, moving from sitting to standing and taking stairs. Factors that improve pain include nothing. Conservative treatments that have been tried and failed include TENS unit and use of tylenol. Physical therapy completed most recently in January of 2023 at [facility] in [place], [place] for 2 months (at 4 week intervals). NSAIDS that have been tried include Tylenol OTC Blood thinners currently taking include Plavix (clopidogrel) and are prescibed by Admitting Representative. Past Medical History: Diagnosis Date ??? Aortic stenosis mod-sev on 2022 echo ??? CAD (coronary artery disease) ??? High blood pressure ??? LVH (left ventricular hypertrophy) ??? Mixed hyperlipidemia ??? Restless leg syndrome ??? Sleep apnea uses cpap ??? Stroke (CMS/HCC) 2021 balance residual ??? Type 2 diabetes mellitus without complications (CMS/HCC) Family History Problem Relation Name Age of Onset ??? Diabetes Mother Status: Alive ??? Hypertension Mother ??? Cancer Father rectal; Status: Past Surgical History: Procedure Laterality Date ??? [...] ??? SHOULDER ARTHROPLASTY, TOTAL Left Social History Socioeconomic History ??? Marital status: [...] No Stress: No Stress Concern Present (12/14/2022) [employer] - Occupational Stress Questionnaire ??? Feeling of Stress : Not at all Housing Stability: Low Risk (12/14/2022) Housing Stability Vital Sign ??? Unable to Pay for Housing in the Last Year: No ??? Number of Places Lived in the Last Year: 1 ??? Unstable Housing in the Last Year: No Outpatient Encounter Medications as of 07/12/2023 Medication Sig Dispense Refill ??? amLODIPine (Norvasc) [...] MG/0.5ML injection ??? ergocalciferol (Drisdol) 1.25 MG (44302 UT) capsule Take 1 (one) capsule by [...] (one) tablet by mouth once daily No facility-administered encounter medications on file as of 07/12/2023. Allergies Allergen Reactions ??? Penicillins Angioedema ROS General: Denies fever, eating and drinking well. Skin: Denies itching, rashes or other lesions. Eyes: No tearing or discharge reported. ENT: Denies runny nose or ear pain. Pulmonary: Denies any cough, SOB, or difficulty breathing. Cardiac: Denies chest pain, palpitations Gastro: Denies nausea, vomiting, diarrhea or abdominal pain. : Reports normal urine output with no c/o pain or discomfort. Ortho: Denies joint pain, osteoarthritis Heme: Denies anemia, coagulopathy, cancer Endocrine: Denies Diabetes, Thyroid disease Neuro: Denies Seizures, TIAs, Hx stroke, weakness,numbness Psych: Denies Depression, Anxiety, History of drug abuse or addiction EXAM BP 158/79 (BP SITE: RIGHT ARM, BP POSITION: SITTING, BP Cuff Size: A) Pulse 76 Resp 20 Ht 1.829 m (6') Wt 127.9 kg (282 lb) General appearance: alert, cooperative, no distress Skin: no rashes or other abnormalities are noted Nodes: no cervical, axillary or inguinal adenopathy Eyes: sclera and conjunctiva clear, EOMI and PERRL, lids normal Ears: canals clear, hearing intact to voice Nose: nares open; no septal deviation is noted Throat: no mucous membrane abnormalities no masses, thyroid not enlarged, no adenopathy Lungs: breath sounds normal bilaterally without audible wheezes Heart: regular rhythm and rate without murmurs Circulation: Carotid and pedal pulses are intact and symmetrical, no carotid bruits no clubbing Or periopheral edema Abdomen: soft without mass, non-tender Musculoskeletal Extremities: no Nodules, edema Joint: shoulder,elbow,wrist,hips,knees, ankles ranges of motion grossly normal Greater trochanteric bursa area non tender Muscle groups No tenderness, spasm in Splenius and para-spinous muscles No tenderness, spasm in trapezius, rhomboids, levator scapulae No tenderness to palpation in quadratus lumborum, para-spinous muscles Spine Posture normal Cervical: Full range of motion Thoracic: no pain with rotation, Lumbar : Full range of motion Neuro:: Gait : Can heel toe tandem walk Motor 4-5/5 throughout unless noted Sensory grossly intact light touch,pinch, vibratory Reflexes symmetrical 2/2 throughout Hip exam Pain with flexion at the Right hip, tenderness of anteromedial thigh SLRs negative bilaterally Assessment ICD-10-CM 1. S/P total right hip arthroplasty Z96.641 [facility] 2. Right leg pain M79.604 [facility] Medical Decision Making Orders Placed This Encounter ??? [facility] Standing Status: Future Standing Expiration Date: 07/12/2024 Referral Priority: Routine Referral Type: Consultation Referral Reason: Specialty Services Required Number of Visits Requested: 1 Patient with Right hip pain in the area of the iliopsoas bursa s/p right hip replacement. Will planfor right iliopsoas bursa injection under both ultrasound and fluoroscopy due to presence of the artificial hip joint. Will also plan for pre-procedure antibiotics. If the resident is involved, I examined the patient independantly from the resident. I have reviewed the labs and notes that are pertinent to the patient. I have discussed the plan with the patient and/or family. I have discussed the case with the resident and ask the you refer to their notes for details. After review of their notes and our discussion, if there are any additions, they will follow. Patient education/teaching: Risk, benefits, and alternatives of treatment discussed with patient, including medication, interventions, and physical therapy. Any procedures scheduled were explained with the use of a model. Side effects of medications explained, precautions discussed. Discussed treatment plan with patient and answered questions. The possible treatments were discussed as well as side effects and complications. Treatment plan and any changes in current treatment discussed. Patient verbalized understanding. Right iliopsoas bursa steroid injection with ultrasound and fluoroscopy guidance with local Will need Ancef 2 gm prior to injection and no need to stop Plavix MODELING ARCHITECT Associated attestation - Lefty Diamond MD - 07/19/2023 1:39 PM DATA MODELING ARCHITECT 07/19/2023 I examined the patient independantly from the resident. I have reviewed the labs and notes that arepertinent to the patient. I have discussed the plan with the patient and/or family. I have discussed the case with the resident and ask the you refer to their notes for details. After review of theirnotes and our discussion, if there are any additions, they will follow. documented in this encounter Plan of Treatment Upcoming Encounters Date Type Department Care Team (Late st Contact Info) Description 01/20/2025 10:00 AM CDT Office Visit [facility] - Orthopedic Surgery [address] [place] [address] Torrey Lafleur MD [address] [address] Scheduled Referrals Name Type Priority Associated Diagnoses Order Schedule [facility] Outpatient Referral Routine S/P total right hip arthroplasty Right leg pain 1 Occurrences starting 07/12/2023 until 07/12/2024 documented as of this encounter Visit Diagnoses Diagnosis S/P total right hip arthroplasty- Primary Right leg pain Pain in limb documented in this encounter Care Teams Mechanical Striper Relationship Specialty Start Date End Date Faisal Richardson DO [address] [place] [phone] PCP - General Family Medicine 11/27/22 documented as of this encounter
--- OUTSIDE RECORDS SUMMARY | 2024-07-28 00:59 | XMS_ITS | Encounter Summary ---
Author Organization [facility] Address [address] [facility] [place] [address] Care Team Providers Care Lower In Supervisor Name Role Phone Faisal Richardson DO Primary Care Provider [phone] Reason for Visit * Reason Comments Pain Hip Encounter Details Date Type Department Care Team (Late st Contact Info) Description 01/02/2023 9:15 AM CDT Office Visit [facility] - Orthopedic Surgery [address] [place] [id number] Torrey Lafleur MD [address] [address] S/P revision of total hip [...] and heating? Not hard at all 12/14/2022 [facility] [place] [facility] - Occupational Stress [...] [place] ([facility])? No 12/14/2022 Sex and Gender [...] Progress Notes * Torrey Lafleur MD - 01/02/2023 9:15 AM CDT Patient returns for follow-up 3 weeks after revision right total hip arthroplasty. Overall patient is doing well. Denies fevers chills or wound problems. No mechanical symptoms or dislocations. Continues to take blood thinners. Continuing home therapy. He has tightness and pain in his thigh musclesand he feels like he cannot progress from the walker yet. He is not taking any pain medication justTylenol. He does feel longer on the right Physical exam: Patient is awake and alert Examination of the right hip reveals flexion to 90, abduction 30, adduction 20, internal rotation of 20, external rotation of 20 with no pain. Distally patient can dorsiflex and plantarflex both ankles and toes without difficulty. Limb lengths are clinically equal. Wound is healed without signs of infection X-rays: X-rays were reviewed and my independent interpretation/assessment of the AP pelvis and AP and lateral of the right hip reveals a well aligned revision hip arthroplasty with fixation of the femur without apparent complication with equal limb lengths with a line drawn on the bottom of the pelvis Assessment: Status post revision right hip arthroplasty for previous infection at outside facility doing well Plan: We discussed hip precautions at length. We discussed antibiotic prophylaxis before invasive procedures. Follow-up in 3 months. We discussed follow-up sooner if not improving. We discussed physical therapy. He may transition to a cane whenever he feels ready. Okay to stop DVT prophylaxis. Patient may drive if not taking pain medication. documented in this encounter Plan of Treatment Upcoming Encounters Date Type Department Care Team (Late st Contact Info) Description 01/20/2025 10:00 AM CDT Office Visit [facility] - Orthopedic Surgery [facility] [place] [address] Torrey Lafleur MD [facility] [address] [place] [address] documented as of this encounter Visit Diagnoses Diagnosis S/P revision of total hip- Primary Hip joint replacement by other means documented in this encounter Care Teams Lower In Supervisor Relationship Specialty Start Date End Date Faisal Richardson DO [address] [place] [address] PCP - General Family Medicine 11/27/22 documented as of this encounter
--- OUTSIDE RECORDS SUMMARY | 2024-07-28 00:59 | XMS_ITS | Encounter Summary ---
Author Organization [facility] Address [address] [facility] [place] [address] Care Team Providers Care Chamber Worker Name Role Phone Faisal Richardson DO Primary Care Provider [phone] Reason for Visit * Reason Onset Date Comments Abnormal Bleeding 12/14/2022 Encounter Details Date Type Department Care Team (Late st Contact Info) Description 12/14/2022 Telephone [facility] - [facility] [place] [address] Fiordaliza Flores RN Abnormal Bleeding Social History Tobacco Use Types Packs/Day Years [...] and heating? Not hard at all 12/14/2022 [facility] [place] of Occupat ional Health - Occupational Stress [...] Telephone Encounter - Fiordaliza Flores RN - 12/14/2022 3:00 PM CDT Patient's spouse called stating that patient was at [facility] getting a blood transfusion. They are going to be transferred to investigate for a GI bleed. Patient's spouse asked if they needed to come to [place]. I stated that as long as the issue is not related to the hip, they are not required to come to [place] but they are more than welcome and we will consult if there are any hip issues. Patient will call if needed for anything else. Fiordaliza Flores RN BSN Total Joint Reconstruction Dept of Orthopedic Surgery [facility] Email: [email or web address] documented in this encounter Plan of Treatment Upcoming Encounters Date Type Department Care Team (Late st Contact Info) Description 01/20/2025 10:00 AM CDT Office Visit [facility] - [facility]opedic Surgery [address] [place] [address] Torrey Lafleur MD [address] [facility] [address] [place] [address] documented as of this encounter Visit Diagnoses Not on filedocumented in this encounter Care Teams Chamber Worker Relationship Specialty Start Date End Date Faisal Richardson DO [address] [place] [address] PCP - General Family Medicine 11/27/22 documented as of this encounter
--- OUTSIDE RECORDS SUMMARY | 2024-07-28 00:59 | XMS_ITS | Encounter Summary ---
Author Organization [facility] Address [address] [facility] [place] [address] Care Team Providers Care It Systems Analyst Consultant Name Role Phone Faisal Richardson DO Primary Care Provider [phone] Reason for Visit * Reason Onset Date Comments MEDICATION REFILL 09/07/2023 Encounter Details Date Type Department Care Team (Late st Contact Info) Description 09/07/2023 Refill [facility] - Orthopedic Surgery [facility] [place] [address] Sugar Eng MA MEDICATION REFILL Social History Tobacco Use Types [...] and heating? Not hard at all 12/14/2022 [facility] ional Health - [...] Description 01/20/2025 10:00 AM CDT Office Visit [facility] - [facility] [place] [phone] Torrey Lafleur MD [address] [facility] [address] [place] [address] documented as of this encounter Visit Diagnoses Diagnosis S/P revision of total hip- Primary Hip joint replacement by other means documented in this encounter Care Teams It Systems Analyst Consultant Relationship Specialty Start Date End Date Faisal Richardson DO [address] [place] [id number] PCP - General Family Medicine 11/27/22 documented as of this encounter
--- OUTSIDE RECORDS SUMMARY | 2024-07-28 00:59 | XMS_ITS | Encounter Summary ---
Author Organization [facility] Address [address] [facility] [place] [address] Care Team Providers Care Strip Cutting Machine Operator Name Role Phone Faisal Richardson DO Primary Care Provider [phone] Encounter Details Date Type Department Care Team (Late st Contact Info) Description 07/02/2023 Orders Only [facility] - Orthopedic Surgery [address] [place] [address] Torrey Lafleur MD [address] [facility] [address] [place] [address] S/P revision of total hip [...] and heating? Not hard at all 12/14/2022 [facility] [place] of Occupat ional Health - Occupational Stress [...] place to sleep or slept in a correction (including now)? No 12/14/2022 Sex and Gender [...] [facility] - Orthopedic [facility] [address] [place] [address] Torrey Lafleur MD [address] [facility] [address] [place] [address] documented as of this encounter Results * XR PELVIS W RIGHT HIP 2VW (07/10/2023 9:14 AM WATERPROOF MATERIAL FOLDER) Anatomical Region Laterality Modality Pelvis Radiographic Sabi ging 07/10/2023 10:2 5 AM WATERPROOF MATERIAL FOLDER Impressions 07/10/2023 10:27 AM WATERPROOF MATERIAL FOLDER IMPRESSION: The component parts of the right hip arthroplasty device remain in satisfactory alignment and positioning without evidence of fracture, dislocation, prosthetic loosening or bony destructive process. > Interpreting Provider: Shiv Diane MD on 07/10/2023 10:27 AM Narrative 07/10/2023 10:27 AM WATERPROOF MATERIAL FOLDER PROCEDURE: ??XR PELVIS W RIGHT HIP 2VW [...] The upper pelvis was excluded from the [id number]. The visualized lower pelvic region appears intact. [...] The upper pelvis was excluded from the [id number]. The visualized lower pelvic region appears intact. [...] means documented in this encounter Care Teams Strip Cutting Machine Operator Relationship Specialty Start Date End Date Faisal Richardson DO [address] [place] [address] PCP - General Family Medicine 11/27/22 documented as of this encounter
--- OUTSIDE RECORDS SUMMARY | 2024-07-28 00:59 | XMS_ITS | Encounter Summary ---
Author Organization [facility] Address [address] [place] [address] Care Team Providers Care Java Web Engineer Name Role Phone Bonnielatoya Faisal BRO Primary Care Provider [phone] Reason for Visit * Auth/Cert (Routine) Specialty Diagnoses / Procedures Referred By Contac t Referred To Contact Diagnoses GI Bleed Referral ID Status Reason Start Date Expiration Date Visits Re quested Visits Authorized [id number] 1 1 Encounter Details Date Type Department Care Team (Latest Contact Info) Description 12/15/2022 4:06 PM CDT - 12/15/2022 4:26 PM CDT Surgery [facility] - Endoscopy Services [address] [place] [address] Diego León MD [address] [place] [id number] ESOPHAGOGASTRODUODENOSCOPY (EGD) DIAGNOSTIC Surgery Details Date/Time Status Location OR Service Patient Class Case Class Case Type Trauma Case? 12/15/2022 4:06 PM Posted [facility] Endo 07 Gastroenterology Inpatient Urgent < 12 Hrs Panel 1 Procedure LRB Anes Op Region Wound Class Comments ESOPHAGOGASTRODUODENOSCOPY ( EGD) DIAGNOSTIC N/A MAC Clean Contaminated ESOPHAGOGASTRODUODENOSCOPY ( EGD) BIOPSY Clean Contaminated Surgeon Surgeon Role Service Panel Diego León MD Primary Gastroenterology 1 documented in this encounter Social History Tobacco [...] and heating? Not hard at all 12/14/2022 [facility] of Occupat ional Health - Occupational Stress [...] place to sleep or slept in a skilled nursing (including now)? No 12/14/2022 Sex and Gender Information Value Date Recorded Sex Assigned at Not on file Gender Identity Not on file Sexual Orientation Not on file documented as of this encounter Last Filed Vital Signs Vital Sign Reading Time Taken Comments Blood Pressure 167/90 12/15/2022 3:04 PM CDT Pulse 83 12/15/2022 3:04 PM CDT Temperature 37.2 ??C (99 ??F) 12/15/2022 3:04 PM CDT Respiratory Rate 16 12/15/2022 3:04 PM CDT Oxygen Saturation 97% 12/15/2022 3:04 PM CDT Inhaled Oxygen Concentration - - Weight 122 kg (268 lb 15.4 oz) 12/14/2022 6:47 P M CDT Height 183 cm (6' 0.05 [...] a unitof blood and then transferred to [facility] for GI evaluation. He underwent CT [...] unit of blood and then transferred to [facility] for[facility] evaluation. He underwent CT angio [...] mouth 2 times daily ergocalciferol 1.25 MG (97258 UT) capsule Commonly known as: Drisdol Take 1 (one) capsule by mouth ferrous sulfate 325 (65 FE) MG tablet Take 1 (one) tablet by mouth once daily HYDROcodone-acetaminophen 5-325 MG tablet Commonly known as: [place] Quantity Dispensed: 42 tablet Take 1 (one) [...] were hospitalized Your discharge diagnosis is: Melena [[id number]] Your discharge diagnosis is: Acute blood loss anemia [[id number]] Your discharge diagnosis is: HTN (hypertension) with goal to be determined [[id number]] Follow up with Primary Care Provider (PCP) [...] rounds w/ house staff. D/w resident , d/c notereviewed, agree w/ physical findings, assessment and [...] PCP and ortho . Rosita Tuttle MD [facility] Hospitalist DOS 12/16/22 D/c time 35 minutes. [...] MG/0.5ML injection 10/17/2021 ergocalciferol (Drisdol) 1.25 MG (33784 UT) capsule Take 1 (one) capsule by [...] 2 times daily 03/05/2022 10/04/2023 HYDROcodone-acetaminophe n ([place]) 5-325 MG tabletIndications:S/P total right hip arthroplasty [...] 12/14/2022 Hospital Day: 2 Attending: Dr. Tuttle Resident/Azure Developer: Drs. Damian/ Jocelin Code Status: full Hospital [...] office was 6.6, he was sent to [facility] for blood transfusion and transferred to [facility]. He denied n/v, abdominal pain, other GI symptoms. At the OSH CT angio was not revealing. He had a colonoscopy in 2019 that was normal (due next in 2024), he has a family history of rectal cancer in his father. He denies NSAID use, but was dischargedfrom his hip surgery with voltaren qday that he endorses taking. At [facility] his hemoglobin 6.5 and he received one [...] 98.6 ??F (37 ??C) 71 20 138/86 12/15/227 -- -- -- 133/71 12/15/222025 98.9 ??F (37.2 ??C) 85 22 171/83 12/15/22 1846 98.7 ??F (37.1 ??C) 77 18 153/89 12/15/22 181 -- 80 18 162/84 12/15/22 181 -- 83 15 168/86 12/15/22 1805 99.6 [...] points: 8.70 bleeds per 100 patient-years 12/16/2022 <[id number]:> 4 <Annual Stroke Risk:>4.0 #HTN -Resume home [...] today D/w IM Attending and Residents Gokul Valero MS4 Medical Student [place] Delirium precautions - Encourage normal sleep-wake cycle: Lights on during the day, frequent orientation. - Night: Maintain sleep hygiene, minimal sleep interruptions - Avoid sedating medications like benzos and antipsychotics as much as possible - Encourage frequent family interaction. Associated attestation - Rosita Tuttle MD - 12/16/2022 11:12 PM CDT Reviewed for educational purposes only. Rosita Tuttle MD * Wendy Damian MD - 12/15/2022 5:42 PM CDT Internal [...] unit of blood and then transferred to [facility] for GI evaluation. He underwent CT [...] to home, ?1-2 days. Rosita Tuttle MD [facility] Hospitalist DOS 12/15/22 * Jacy Fox RN - 12/15/2022 12:06 PM CDT Case Management Initial Assessment Anticipated Discharge Date: 12/16/22 Transportation at Discharge: Family Anticipated level of care at discharge: Home Health Care Anticipated level of care provider: [facility] Prior to admission level of care: Home Health Care Prior to admit provider: [facility] Discharge Goals and Plans: Patient Goals: Return home Plans: No discharge needs identified at this time. Consult Case Management if discharge planning needs arrise. Upon discharge or transfer to a post acute facility should rehospitalization, home health, rehabilitation, or any other follow up care be required, patient's preference is to stay within the [facility] Network and its affiliates.: Unsure Comments: Met patient at bedside. AO4 on RA UAL with walker prn from home. Lives home with . Currently established with [facility] for wound care and home PT/OT. He has a NGWT that he came in with and will continue for two weeks. He plans to continue care with [facility] [place]. His will transport [place] home [place]. GI following for GI bleed. Received 2uPRBCs. Currently NPO. Continued Care and Services - Admitted Since 12/14/2022 Home Medical Care Service Provider Request Status Selected Services Address Phone Fax Patient Preferred [facility] Pending - Request Sent N/A [phone] [place] [phone] -- Lives with: Spouse Physical Limitations: None Requires Assistance With: None Preferred Pharmacy: [facility] - [address] [facility] [phone] [address] [facility] [phone] Advance Directive: No Advance Directive READMISSION RISK SCORE is 11 at 12:06 PM 12/15/2022. Met with patient and spouse Family Support (name and phone): Extended Emergency Contact Information Primary Emergency Contact: Marguerite Rutledge Address: [address] [place] [address] Relation: Spouse Patient or authorization representative requests care coordination reach out to [...] pt. requires but does not have.: None Access Consultant Referral: No Will continue to follow. For any questions or needs please contact: Electric Shovel Operator Name/Phone number: Jacy Fox RN [phone] * Romelia Cline RN - 12/15/2022 11:46 [...] days (dressings available in OR or through [facility]). Discussed this with primary RN Tomeka today. Orders placed in [facility]. Follow up with ortho as scheduled. Wound [...] 12/14/2022 Hospital Day: 1 Attending: Dr. Tuttle Resident/Azure Developer: Drs. Damian/ Jocelin Code Status: full Hospital [...] office was 6.6, he was sent to [facility] for blood transfusion and transferred to [facility]. He denied n/v, abdominal pain, other GI symptoms. At the OSH CT angio was not revealing. He had a colonoscopy in 2019 that was normal (due next in 2024), he has a family history of rectal cancer in his father. He denies NSAID use, but was dischargedfrom his hip surgery with voltloni miller that he endorses taking. Overnight Events: NAEO. [...] 5 to 9 points: Insufficient data 12/15/2022 <[id number]:> 4 <Annual Stroke Risk:>4.0 #HTN -Resume home [...] unit of blood and then transferred to [facility] for GI evaluation. He underwent CT [...] MG/0.5ML injection ??? ergocalciferol (Drisdol) 1.25 MG (84026 UT) capsule Take 1 (one) capsule by mouth ??? famotidine (Pepcid) 20 MG tablet Take 1 (one) tablet by mouth 2 times daily (Patient not taking: Reported on 12/14/2022) 70 tablet 0 ??? ferrous sulfate 325 (65 FE) MG tablet Take 1 (one) tablet by mouth once daily ??? HYDROcodone-acetaminophen ([place]) 5-325 MG tablet Take 1 (one) tablet [...] Dave Rodarte MD MPH PGY-2 Internal Medicine [facility] Associated attestation - Diony Camarillo DO - [...] No Stress: No Stress Concern Present (12/14/2022) [facility] of Occupational Health - Occupational Stress Questionnaire [...] Description 01/20/2025 10:00 AM CDT Office Visit [facility] - Orthopedic Surgery [address] [place] [phone] Torrey Lafleur MD [address] [facility] [address] [place] [address] documented as of this encounter Procedures Procedure [...] type EGD Routine 12/15/2022 5:34 PM CDT UT EGD FLEX TRANSORAL W BX SNGL OR MULT 12/15/2022 4:06 PM CDT UT ED EGD FLEX TRANSORAL DX 12/15/2022 4:06 [...] - 18 mmol/L 12/16/2022 6:33 AM CDT [facility] BUN 11 8.4 - 25.7 mg/dL 12/16/2022 6:33 AM CDT [facility] Creatinine 0.81 0.72 - 1.25 mg/dL 12/16/2022 6:33 AM CDT [facility] Alkaline Phosphatase 66 40 - 150 U/L 12/16/2022 6:33 AM CDT [facility] ALT 15 0 - 61 U/L 12/16/2022 6:33 AM CDT [facility] AST 20 5 - 34 U/L 12/16/2022 6:33 AM CDT [facility] Protein Total 6.6 6.4 - 8.3 gm/dL 12/16/2022 6:33 AM CDT [facility] Albumin 3.6 3.5 - 5.2 gm/dL 12/16/2022 6:33 AM CDT [facility] Bilirubin Total 0.9 0.2 - 1.2 mg/dL 12/16/2022 6:33 AM CDT [facility] eGFR by CKD-EPI >90 >=90 mL/min/1.7 3 m2 12/16/2022 6:33 AM CDT [facility] Blood BLOOD SPECIMEN / Unknown Lab Venipuncture / Unknown 12/16/2022 5:45 AM CDT 12/16/2022 6:02 AM CDT Rosita Tuttle MD LAB - CHEMISTRY BENJA DICK [place] Organization Address City/State/[facility] Co de Phone Number [facility] [address] [place] [address] * (ABNORMAL) CBC W AUTO DIFFERENTIAL (12/16/2022 5:45 AM CDT) WBC 7.1 4.4 - 10.7 x10E9/L 12/16/2022 6:22 AM CDT [facility] WBC Corrected 12/16/2022 6:22 AM CDT [facility] RBC 2.67(L) 3.80 - 5.40 x10E12/L 12/16/2022 6:22 AM CDT [facility] Hemoglobin 8.2(L) 12.0 - 17.6 gm/dL 12/16/2022 6:22 AM CDT [facility] Hematocrit 26.0(L) 35.2 - 51.7 % 12/16/2022 6:22 AM CDT [facility] MCV 97.4 80.7 - 98.3 fl 12/16/2022 6:22 AM CDT [facility] MCH 30.7 26.7 - 34.0 pg 12/16/2022 6:22 AM CDT [facility] MCHC 31.5 30.8 - 35.9 gm/dL 12/16/2022 6:22 AM CDT [facility] Platelet Count 246 153 - 416 x10E9/L 12/16/2022 6:22 AM CDT [facility] RDW-CV 14.9 12.1 - 14.9 % 12/16/2022 6:22 AM CDT [facility] MPV 9.1(L) 9.4 - 12.9 fl 12/16/2022 6:22 AM CDT [facility] Neutrophils % 53.2 44.0 - 73.0 % 12/16/2022 6:22 AM CDT [facility] Lymphocytes % 26.1 20.0 - 43.0 % 12/16/2022 6:22 AM CDT [facility] Monocytes % 13.7(H) 5.0 - 13.0 % 12/16/2022 6:22 AM CDT [facility] Eosinophils % 1.8 0.0 - 6.0 % 12/16/2022 6:22 AM CDT [facility] Basophils % 0.4 0.0 - 2.0 % 12/16/2022 6:22 AM CDT [facility] Immature Granulocytes 4.8(H) 0 - 1 % 12/16/2022 6:22 AM CDT [facility] Neutrophil Absolute 3.76 2.01 - 7.14 x10E9/L 12/16/2022 6:22 AM CDT [facility] Lymphocytes Absolute 1.85 1.07 - 3.94 x10E9/L 12/16/2022 6:22 AM CDT [facility] Monocytes Absolute 0.97 0.26 - 1.07 x10E9/L 12/16/2022 6:22 AM CDT [facility] Eosinophils Absolute 0.13 0 - 0.47 x10E9/L 12/16/2022 6:22 AM CDT [facility] Basophils Absolute 0.03 0 - 0.08 x10E9/L 12/16/2022 6:22 AM CDT [facility] Immature Granulocytes Absolute 0.34(H) 0.00 - 0.06 x10E9/L 12/16/2022 6:22 AM CDT [facility] nRBC Auto 1 /100 WBC 12/16/2022 6:22 AM CDT [facility] Blood BLOOD SPECIMEN / Unknown Lab Venipuncture / Unknown 12/16/2022 5:45 AM CDT 12/16/2022 6:00 AM CDT Rosita Tuttle MD LAB - HEMATOLOGY ORD ERABLES Performing Organization Address City/State/[facility] Co de Phone Number [facility] [address] [place] [address] * (ABNORMAL) CBC W/O DIFFERENTIAL (12/15/2022 7:48 PM CDT) WBC 8.6 4.4 - 10.7 x10E9/L 12/15/2022 7:59 PM CDT [facility] RBC 2.71(L) 3.80 - 5.40 x10E12/L 12/15/2022 7:59 PM CDT [facility] Hemoglobin 8.5(L) 12.0 - 17.6 gm/dL 12/15/2022 7:59 PM CDT [facility] Hematocrit 25.4(L) 35.2 - 51.7 % 12/15/2022 7:59 PM CDT [facility] MCV 93.7 80.7 - 98.3 fl 12/15/2022 7:59 PM CDT [facility] MCH 31.4 26.7 - 34.0 pg 12/15/2022 7:59 PM CDT [facility] MCHC 33.5 30.8 - 35.9 gm/dL 12/15/2022 7:59 PM CDT [facility] Platelet Count 251 153 - 416 x10E9/L 12/15/2022 7:59 PM CDT [facility] RDW-CV 14.9 12.1 - 14.9 % 12/15/2022 7:59 PM CDT [facility] MPV 8.8(L) 9.4 - 12.9 fl 12/15/2022 7:59 PM CDT [facility] Blood BLOOD SPECIMEN / Unknown Lab Venipuncture / Unknown 12/15/2022 7:48 PM CDT 12/15/2022 7:57 PM CDT Rosita Tuttle MD LAB - HEMATOLOGY ORD ERABLES Performing Organization Address [facility] Co de Phone Number [facility] [address] [place], [place] [phone] * HELICOBACTER PYLORI UREASE (STL) (12/15/2022 5:53 PM CDT) Helicobacter pylori Urease Initial Negative Negative 12/16/2022 7:11 PM CDT [facility] Helicobacter pylori Urease Final Negative Negative 12/16/2022 7:11 PM CDT [facility] Microbiology GASTRIC BIOPSY SPECIMEN / Unknown 12/15/2022 5:53 PM CDT 12/15/2022 6:43 PM CDT Diego León MD LAB - MICROBIOLOGY O RDSTANBLES Performing Organization Address [facility] Co de Phone Number [facility] [address] [place] [address] * EGD (12/15/2022 5:34 PM CDT) Report Endoscopy POC _ Patient Name: Jose Rutledge ? Procedure Date: 12/15/2022 5:34 PM ? Date of : 1965 ?Admit Type: Inpatient Age: 57 ? Gender: Male Ethnicity: Not or ? Race: White Attending MD: Diego León MD, [id number] _ Procedure: ? Upper GI endoscopy Indications: [...] Procedure Code(s): ? --- Professional --- ? 72291, Esophagogastroduod enoscopy, flexible, transoral; with biopsy, ? single or multiple ? --- Technical --- ? 65450, Esophagogastroduod enoscopy, flexible, transoral; with biopsy, ? [...] K92.1, Melena (includes Hematochezia) CPT copyright 2020 [employer]. All rights reserved. The codes documented in this report are preliminary and upon rotary kiln operator review may be revised to meet current compliance requirements. Diego León MD 12/15/2022 6:12:03 PM This report has been signed electronically. Number of Addenda: 0 Note Initiated On: 12/15/2022 5:34 PM [facility] 12/15/2022 5:34 PM CDT Diego León MD GI PROCEDURE ORDERAB LES [facility] * GLUCOSE - POINT OF CARE (12/15/2022 12:04 PM CDT) Glucose WB/POC 104 70 - 106 mg/dL 12/15/2022 12:14 PM CDT [facility] Specimen Type Cap Fingerstick 2022 12:14 PM CDT [facility] Blood BLOOD SPECIMEN / Unknown 12/15/2022 12:04 PM CDT 12/15/2022 12:14 PM CDT Rosita Tuttle MD LAB - POINT OF CARE ORDERABLES [facility] [address] [place] [address] * (ABNORMAL) CBC W/O DIFFERENTIAL (12/15/2022 11:49 AM CDT) WBC 7.8 4.4 - 10.7 x10E9/L 12/15/2022 12:01 PM CDT [facility] RBC 2.69(L) 3.80 - 5.40 x10E12/L 12/15/2022 12:01 PM CDT [facility] Hemoglobin 8.5(L) 12.0 - 17.6 gm/dL 12/15/2022 12:01 PM CDT [facility] Hematocrit 25.6(L) 35.2 - 51.7 % 12/15/2022 12:01 PM CDT [facility] MCV 95.2 80.7 - 98.3 fl 12/15/2022 12:01 PM CDT [facility] MCH 31.6 26.7 - 34.0 pg 12/15/2022 12:01 PM CDT [facility] MCHC 33.2 30.8 - 35.9 gm/dL 12/15/2022 12:01 PM CDT [facility] Platelet Count 233 153 - 416 x10E9/L 12/15/2022 12:01 PM T [facility] RDW-CV 15.1(H) 12.1 - 14.9 % 12/15/2022 12:01 PM T [facility] MPV 8.9(L) 9.4 - 12.9 fl 12/15/2022 12:01 PM CDT [facility] Blood BLOOD SPECIMEN / Unknown Lab Venipuncture / Unknown 12/15/2022 11:49 AM CDT 12/15/2022 11:57 AM CDT Rosita Tuttle MD LAB - HEMATOLOGY ORD ERABLES Performing Organization Address City/[facility] Co de Phone Number [facility] [address] [place] [phone] * GLUCOSE - POINT OF CARE (12/15/2022 8:38 AM CDT) [facility] Glucose WB/POC 105 70 - 106 mg/dL 12/15/2022 1:10 PM CDT [facility] Specimen Type Cap Fingerstick 2022 1:10 PM CDT [facility] Blood BLOOD SPECIMEN / Unknown 12/15/2022 8:38 AM CDT 12/15/2022 1:10 PM CDT Rosita Tuttle MD LAB - POINT OF CARE ORDERABLES Performing Organization Address City/[facility]/ZIP Co de Phone Number [facility] [address] [place] [phone] * FERRITIN (12/15/2022 6:44 AM CDT) Pathologist [facility] Ferritin 102 22 - 275 ng/mL 12/15/2022 8:50 AM CDT [facility] Blood BLOOD SPECIMEN / Unknown Lab Venipuncture / Unknown 12/15/2022 6:44 AM CDT 12/15/2022 7:37 AM CDT Nanyc Bianchi MD LAB - CHEMISTRY O RDERABLES Performing Organization Address [facility] Co de Phone Number [facility] [address] [place] [phone] * VITAMIN B12 (12/15/2022 6:44 AM CDT) Pathologist [facility] Vitamin B12 334 213 - 816 pg/mL 12/15/2022 8:50 AM CDT [facility] Blood BLOOD SPECIMEN / Unknown Lab Venipuncture / Unknown 12/15/2022 6:44 AM CDT 12/15/2022 7:37 AM CDT Nancy Bianchi MD LAB - CHEMISTRY O RDERABLES Performing Organization Address [facility] de Phone Number [facility] [address] [place] [phone] * FOLATE (12/15/2022 6:44 AM CDT) Pathologist [facility] Folate 17.9 7.0 - 31.4 ng/mL 12/15/2022 8:50 AM CDT [facility] Blood BLOOD SPECIMEN / Unknown Lab Venipuncture / Unknown 12/15/2022 6:44 AM CDT 12/15/2022 7:37 AM CDT Nancy Bianchi MD LAB - CHEMISTRY O RDERABLES Performing Organization Address City/[facility]/ZIP Co de Phone Number [facility] [address] [place] [phone] * IRON + TRANSFERRIN PANEL (12/15/2022 6:44 AM CDT) Pathologist [facility] Iron 65 65 - 175 ug/dL 12/15/2022 8:14 AM CDT [facility] Transferrin 217 174 - 364 mg/dL 12/15/2022 8:14 AM CDT [facility] TIBC Calculated 271 240 - 450 ug/dL 12/15/2022 8:14 AM CDT [facility] Iron Saturation % 24 20 - 50 % 12/15/2022 8:14 AM CDT [facility] Blood BLOOD SPECIMEN / Unknown Lab Venipuncture / Unknown 12/15/2022 6:44 AM CDT 12/15/2022 7:37 AM CDT Julioee Jm Bianchi MD LAB - CHEMISTRY O RDERABLES [facility] [address] [place] [address] * (ABNORMAL) CBC W/O DIFFERENTIAL (12/15/2022 6:44 AM CDT) Pathologist [facility] WBC 7.4 4.4 - 10.7 x10E9/L 12/15/2022 7:51 AM CDT [facility] RBC 2.46(L) 3.80 - 5.40 x10E12/L 12/15/2022 7:51 AM CDT [facility] Hemoglobin 7.7(L) 12.0 - 17.6 gm/dL 12/15/2022 7:51 AM CDT [facility] Hematocrit 24.1(L) 35.2 - 51.7 % 12/15/2022 7:51 AM CDT [facility] MCV 98.0 80.7 - 98.3 fl 12/15/2022 7:51 AM CDT [facility] MCH 31.3 26.7 - 34.0 pg 12/15/2022 7:51 AM CDT [facility] MCHC 32.0 30.8 - 35.9 gm/dL 12/15/2022 7:51 AM CDT [facility] Platelet Count 217 153 - 416 x10E9/L 12/15/2022 7:51 AM CDT [facility] RDW-CV 15.0(H) 12.1 - 14.9 % 12/15/2022 7:51 AM CDT [facility] MPV 9.6 9.4 - 12.9 fl 12/15/2022 7:51 AM CDT [facility] Blood BLOOD SPECIMEN / Unknown Lab Venipuncture / Unknown 12/15/2022 6:44 AM CDT 12/15/2022 7:38 AM CDT Julioricky Jm Bianchi MD LAB - HEMATOLOGY ORDERABLES [facility] [address] [place] [address] * (ABNORMAL) RENAL FUNCTION PANEL (12/15/2022 6:44 AM CDT) Glucose 103 70 - 105 mg/dL 12/15/2022 8:14 AM CDT [facility] Sodium 136 136 - 145 mmol/L 12/15/2022 8:14 AM CDT [facility] Potassium 3.8 3.5 - 5.1 mmol/L 12/15/2022 8:14 AM CDT [facility] Chloride 105 98 - 107 mmol/L 12/15/2022 8:14 AM CDT [facility] CO2 22(L) 23 - 31 mmol/L 12/15/2022 8:14 AM CDT [facility] Calcium 8.8 8.4 - 10.4 mg/dL 12/15/2022 8:14 AM CDT [facility] Anion Gap 9 8 - 18 mmol/L 12/15/2022 8:14 AM CDT [facility] BUN 12 8.4 - 25.7 mg/dL 12/15/2022 8:14 AM CDT [facility] Creatinine 0.82 0.72 - 1.25 mg/dL 12/15/2022 8:14 AM CDT [facility] Albumin 3.5 3.5 - 5.2 gm/dL 12/15/2022 8:14 AM CDT [facility] Phosphorus 3.0 2.3 - 4.7 mg/dL 12/15/2022 8:14 AM CDT [facility] eGFR by CKD-EPI >90 >=90 mL/min/1.7 3 m2 12/15/2022 8:14 AM CDT [facility] Blood BLOOD SPECIMEN / Unknown Lab Venipuncture / Unknown 12/15/2022 6:44 AM CDT 12/15/2022 7:37 AM CDT Nancy Bianchi MD LAB - CHEMISTRY O RDERABLES Performing Organization Address City/[facility]/ZIP Co de Phone Number [facility] [id number] [place] [address] * TRANSFUSE RED BLOOD CELL LEUKOREDUCED UNIT(S) (12/15/2022 4:58 AM CDT) Nancy Bianchi MD NURSING - BLOOD P PAU TRANSFUSION * TRANSFUSE RED BLOOD CELL LEUKOREDUCED UNIT(S), 1 Units (12/15/2022 4:58 AM CDT) Nancy Bianchi MD NURSING - BLOOD P PAU TRANSFUSION * PREPARE (CROSSMATCH) RBC UNIT(S), 1 Units (12/15/2022 1:50 AM CDT) Unit Description AS1 LR PRBC [facility] ABO O [facility] Rh POS [facility] Product Number R02 [facility] Donor # [id number] [facility] Unit Status transfused [facility] Product Code [id number] [facility] Blood Type Barcode 5100 [facility] Expiration Date [id number] [facility] Blood Bank BLOOD SPECIMEN / Unknown 12/14/2022 8:03 PM CDT Nancy Bianchi MD LAB - BLOOD BANK ORDERABLES Performing Organization Address [facility]/ZIP Co de Phone Number [facility] [address] [phone] * (ABNORMAL) HEMOGLOBIN A1C (12/14/2022 7:33 PM CDT) Pathologist [facility] Hemoglobin A1c 6.0(H) <5.7 % 12/14/2022 9:12 PM CDT [facility] Estimated Average Glucose 126 mg/dL 12/14/2022 9:12 PM CDT [facility] Blood BLOOD SPECIMEN / Unknown Lab Venipuncture / Unknown 12/14/2022 7:33 PM CDT 12/14/2022 8:03 PM CDT [facility]ORATORY - 12/14/2022 9:12 PM CDT HbA1c [...] exceeds 5% in the specimen. The [employer] assay for the measurement of HbA1c is a National Glycohemoglobin Standardization Program (NGSP) certified method. Nancy Bianchi MD LAB - CHEMISTRY O RDERABLES [facility] [address] [place] [address] * PHOSPHORUS BLOOD (12/14/2022 7:33 PM CDT) Pathologist [facility] Phosphorus 3.5 2.3 - 4.7 mg/dL 12/14/2022 8:21 PM CDT [facility] Blood BLOOD SPECIMEN / Unknown Lab Venipuncture / Unknown 12/14/2022 7:33 PM CDT 12/14/2022 8:03 PM CDT Nancy Bianchi MD LAB - CHEMISTRY O RDERABLES [facility] [address] [place] [address] * MAGNESIUM BLOOD (12/14/2022 7:33 PM CDT) Magnesium 1.7 1.6 - 2.6 mg/dL 12/14/2022 8:21 PM CDT [facility] Blood BLOOD SPECIMEN / Unknown Lab Venipuncture / Unknown 12/14/2022 7:33 PM CDT 12/14/2022 8:03 PM CDT Nancy Bianchi MD LAB - CHEMISTRY O RDERABLES Performing Organization Address [facility]/ZIP Co de Phone Number [facility] [address] [place] [address] * TYPE + SCREEN PANEL (12/14/2022 7:33 PM CDT) ABO Rh O POS 12/14/2022 8:48 PM CDT [facility] Comment:History checked. Antibody Screen NEG 8:48 PM CDT [facility] Blood Bank BLOOD SPECIMEN / Unknown Lab Venipuncture / Unknown 12/14/2022 7:33 PM CDT 12/14/2022 8:03 PM CDT Nancy Bianchi MD LAB - BLOOD BANK ORDERABLES Performing Organization Address City/[facility]/ZIP Co de Phone Number [facility] [address] [place] [address] * PT-INR (12/14/2022 7:33 PM CDT) PT 13.7 12.1 - 14.8 sec 12/14/2022 8:16 PM CDT [facility] INR 1.1 0.9 - 1.1 12/14/2022 8:16 PM CDT [facility] Blood BLOOD SPECIMEN / Unknown Lab Venipuncture / Unknown 12/14/2022 7:33 PM CDT 12/14/2022 8:03 PM CDT [facility] LABORATORY - 12/14/2022 8:16 PM CDT Conventional Warfarin Anticoagulant Therapy: INR Reference Range: ??2.0-3.0 Intensive Warfarin Anticoagulant Therapy: INR Reference Range: ? 2.5-3.5 Nancy Bianchi MD LAB - COAGULATION ORDERABLES [facility] [address] [place] [address] * (ABNORMAL) COMPREHENSIVE METABOLIC PANEL (12/14/2022 7:33 PM CDT) Glucose 106(H) 70 - 105 mg/dL 12/14/2022 8:21 PM CDT [facility] Sodium 139 136 - 145 mmol/L 12/14/2022 8:21 PM CDT [facility] Potassium 3.8 3.5 - 5.1 mmol/L 12/14/2022 8:21 PM CDT [facility] Chloride 109(H) 98 - 107 mmol/L 12/14/2022 8:21 PM CDT [facility] CO2 22(L) 23 - 31 mmol/L 12/14/2022 8:21 PM CDT [facility] Calcium 8.5 8.4 - 10.4 mg/dL 12/14/2022 8:21 PM CDT [facility] Anion Gap 8 8 - 18 mmol/L 12/14/2022 8:21 PM CDT [facility] BUN 17 8.4 - 25.7 mg/dL 12/14/2022 8:21 PM CDT [facility] Creatinine 0.82 0.72 - 1.25 mg/dL 12/14/2022 8:21 PM CDT [facility] Alkaline Phosphatase 63 40 - 150 U/L 12/14/2022 8:21 PM CDT [facility] ALT 18 0 - 61 U/L 12/14/2022 8:21 PM CDT [facility] AST 22 5 - 34 U/L 12/14/2022 8:21 PM CDT [facility] Protein Total 6.2(L) 6.4 - 8.3 gm/dL 12/14/2022 8:21 PM CDT [facility] Albumin 3.3(L) 3.5 - 5.2 gm/dL 12/14/2022 8:21 PM CDT [facility] Bilirubin Total 1.2 0.2 - 1.2 mg/dL 12/14/2022 8:21 PM CDT [facility] eGFR by CKD-EPI >90 >=90 mL/min/1.7 3 m2 12/14/2022 8:21 PM CDT [facility] Blood BLOOD SPECIMEN / Unknown Lab Venipuncture / Unknown 12/14/2022 7:33 PM CDT 12/14/2022 8:03 PM CDT Julioee Jm Bianchi MD LAB - CHEMISTRY O RDERABLES Performing Organization Address City/State/[facility] Co de Phone Number [facility] [address] [place] [address] * (ABNORMAL) CBC W AUTO DIFFERENTIAL (12/14/2022 7:33 PM CDT) WBC 7.2 4.4 - 10.7 x10E9/L 12/14/2022 8:15 PM CDT [facility] WBC Corrected 12/14/2022 8:15 PM CDT [facility] RBC 2.06(L) 3.80 - 5.40 x10E12/L 12/14/2022 8:15 PM CDT [facility] Hemoglobin 6.5(L) 12.0 - 17.6 gm/dL 12/14/2022 8:15 PM CDT [facility] Hematocrit 19.9(L) 35.2 - 51.7 % 12/14/2022 8:15 PM CDT [facility] MCV 96.6 80.7 - 98.3 fl 12/14/2022 8:15 PM CDT [facility] MCH 31.6 26.7 - 34.0 pg 12/14/2022 8:15 PM CDT [facility] MCHC 32.7 30.8 - 35.9 gm/dL 12/14/2022 8:15 PM CDT [facility] Platelet Count 211 153 - 416 x10E9/L 12/14/2022 8:15 PM [facility] RDW-CV 14.8 12.1 - 14.9 % 12/14/2022 8:15 PM [facility] MPV 9.4 9.4 - 12.9 fl 12/14/2022 8:15 PM [facility] Neutrophils % 51.3 44.0 - 73.0 % 12/14/2022 8:15 PM [facility] Lymphocytes % 30.3 20.0 - 43.0 % 12/14/2022 8:15 PM [facility] Monocytes % 11.9 5.0 - 13.0 % 12/14/2022 8:15 PM [facility] Eosinophils % 2.0 0.0 - 6.0 % 12/14/2022 8:15 PM [facility] Basophils % 0.4 0.0 - 2.0 % 12/14/2022 8:15 PM [facility] Immature Granulocytes 4.1(H) 0 - 1 % 12/14/2022 8:15 PM [facility] Neutrophil Absolute 3.68 2.01 - 7.14 x10E9/L 12/14/2022 8:15 PM [facility] Lymphocytes Absolute 2.17 1.07 - 3.94 x10E9/L 12/14/2022 8:15 PM [facility] Monocytes Absolute 0.85 0.26 - 1.07 x10E9/L 12/14/2022 8:15 PM [facility] Eosinophils Absolute 0.14 0 - 0.47 x10E9/L 12/14/2022 8:15 PM [facility] Basophils Absolute 0.03 0 - 0.08 x10E9/L 12/14/2022 8:15 PM [facility] Immature Granulocytes Absolute 0.29(H) 0.00 - 0.06 x10E9/L 12/14/2022 8:15 PM [facility] nRBC Auto 1 /100 WBC 12/14/2022 8:15 PM [facility] Blood BLOOD SPECIMEN / Unknown Lab Venipuncture / Unknown 12/14/2022 7:33 PM CDT 12/14/2022 8:03 PM CDT Nancy Bianchi MD LAB - HEMATOLOGY ORDERABLES Performing Organization Address City/[facility]/ZIP Co de Phone Number [facility] [address] [place] [address] * (ABNORMAL) GLUCOSE - POINT OF CARE (12/14/2022 7:20 PM CDT) [facility] Glucose WB/POC 110(H) 70 - 106 mg/dL 12/14/2022 7:34 PM CDT [facility] Specimen Type Cap Fingerstick 2022 7:34 PM CDT [facility] Blood BLOOD SPECIMEN / Unknown 12/14/2022 7:20 PM CDT 12/14/2022 7:34 PM CDT Nancy Bianchi MD LAB - POINT OF CA RE ORDERABLES Performing Organization Address City/[facility] Co de Phone Number [facility] [address] [place] [address] documented in this encounter Visit Diagnoses Not [...] 12/16/2022 9:42 AM CDT 50 mg pantoprazole EC (Protonix) tablet 40 mg [...] due time)2032 ($ Given - Provider: Isabel Cantrell RN) 0622 (Not Administered - Provider: Isabel Cantrell [...] dose on Sun12/16/22 at 0900, Until Discontinued 0942 ($ Given - Provider: Opal Grissom RN) losartan (Cozaar) tablet 50 mg(Linked Group 2) 50 mg, Oral, DAILY, First dose on Sun12/16/22 at 0900, Until Discontinued 0942 ($ Given - Provider: Opal Grissom [...] 2030 ($ Given - Provider: Isabel Cantrell, RN) 621 ($ Given - Provider: Isabel Cantrell, [...] PRN, Other, peripheral line flush, Starting on [facility] 12/14/22 at 1954, Until [facility] 12/16/22 at 1307, Flush peripheral IV catheter with 1-10 mL of normal saline before and after medications and prn to clear blood from the line or to verify patency. Group 2: losartan (Cozaar) tablet 50 mgJump to med 50 mg, Oral, DAILY, First dose on [facility] 12/16/22 at 0900, Until Discontinued And hydroCHLOROthiazide (Hydrodiuril) tablet 12.5 mgJump to med 12.5 mg, Oral, DAILY, First dose on [facility] 12/16/22 at 0900, Until Discontinued Group 3: dextrose 10 % IV bolusJump to med 12.5 g, at 999 mL/hr, Intravenous, PRN, Other, Bedside Glucose less than 70 mg/dL -If NOT able to eat and/or NPO and with IV Access, Starting on [facility] 12/14/22 at 2109, Until [facility] 12/16/22 at 1307, If NOT able to [...] EVENT. documented in this encounter Care Teams Java Web Engineer Relationship Specialty Start Date End Date Faisal Richardson DO [address] [place] [id number] PCP - General Family Medicine 11/27/22 documented as of this encounter
--- OUTSIDE RECORDS SUMMARY | 2024-07-28 00:59 | XMS_ITS | Encounter Summary ---
Author Organization [facility] Address [address] [facility] [place] [address] Care Team Providers Care Mine Surveyor Name Role Phone Faisal Richardson DO Primary Care Provider Encounter Details Date Type Department Care Team (Late st Contact Info) Description 03/28/2023 Orders Only [facility] - [facility] Surgery [address] [place] [address] Torrey Lafleur MD [address] [facility] [address] [place] [address] Right hip pain Social History [...] and heating? Not hard at all 12/14/2022 [facility] [place] of Occupat ional Health - Occupational Stress [...] place to sleep or slept in a snf (including now)? No 12/14/2022 Sex and Gender [...] [facility] [address] [place] [address] Torrey Lafleur MD [address] [facility] [address] [place] [address] documented as of this encounter Results * XR PELVIS W RIGHT HIP 2VW (04/04/2023 8:43 AM CDT) Anatomical Region Laterality Modality Pelvis Radiographic Sabi ging 04/04/2023 9:04 AM CDT Narrative 04/04/2023 9:05 AM CDT PROCEDURE: ??XR PELVIS W RIGHT HIP 2VW, DATE/TIME OF EXAM: ??04/04/2023 8:43 AM, LOCATION ??[facility] INDICATION: M25.551: Pain in right hip [...] 2VW, DATE/TIME OF EXAM: 38:43 AM, LOCATION [facility] INDICATION: M25.551: Pain in right hip [...] thigh documented in this encounter Care Teams Mine Surveyor Relationship Specialty Start Date End Date Faisal Richardson DO [address] [place] [id number] PCP - General Family Medicine 11/27/22 documented as of this encounter
--- OUTSIDE RECORDS SUMMARY | 2024-07-28 00:59 | XMS_ITS | Encounter Summary ---
Author Organization [facility] Address [address] [facility] [place] [address] Care Team Providers Care Shotblast Equipment Operator Name Role Phone Faisal Richardson DO Primary Care Provider [phone] Encounter Details Date Type Department Care Team (Latest Contact Info) Description 07/10/2023 Travel Social History Tobacco Use Types Packs/Day [...] and heating? Not hard at all 12/14/2022 [facility] [place] of Occupat ional Health - Occupational Stress [...] slept in a intermediate (including now)? No 12/14/2022 Sex and Gender [...] Visit [facility] [place] [phone] [place] [address] [place] [phone] documented as of this encounter Visit Diagnoses Not on filedocumented in this encounter Care Teams Shotblast Equipment Operator Relationship Specialty Start Date End Date Faisal Richardson DO [address] [place] [phone] PCP - General Family Medicine 11/27/22 documented as of this encounter
--- OUTSIDE RECORDS SUMMARY | 2024-07-28 00:59 | XMS_ITS | Encounter Summary ---
Author Organization [facility] Address [address] [facility] [place] [address] Care Team Providers Care Tugboat Dispatcher Name Role Phone Faisal Richardson DO Primary Care Provider [phone] Encounter Details Date Type Department Care Team (Latest Contact Info) Description 01/02/2023 8:35 AM CDT - 01/02/2023 11:59 PM CDT Hospital Encounter [facility] [address] [place] [address] Torrey Lafleur MD [address] [place], [place] [id number] Discharge Disposition: Home or Self Care Social [...] and heating? Not hard at all 12/14/2022 [place] [facility] Occupat ional Health - Occupational Stress [...] Recorded In the last 10 days, have paxton u been in contact with someone who [...] MG/0.5ML injection 10/17/2021 ergocalciferol (Drisdol) 1.25 MG (43929 UT) capsule Take 1 (one) capsule by [...] Description 01/20/2025 10:00 AM CDT Office Visit [facility] - Orthopedic Surgery [address] [place] [address] Torrey Lafleur MD [address] [facility] [address] [place] [address] documented as of this encounter Procedures Procedure Name Priority Date/Time Associated Diagnosis Comments XR PELVIS W RIGHT HIP 2VW Routine 01/02/2023 8:44 AM CDT Right hip pain documented in [...] dislocation of the prosthetic components. Procedure Note Seelig, Shiv D, MD - 01/02/2023 PROCEDURE: XR PELVIS W [...] thigh documented in this encounter Care Teams Tugboat Dispatcher Relationship Specialty Start Date End Date Faisal Richardson DO [address] [place] [phone] PCP - General Family Medicine 11/27/22 documented as of this encounter
--- OUTSIDE RECORDS SUMMARY | 2024-07-28 00:59 | XMS_ITS | Encounter Summary ---
Author Organization [facility] Address [address] [facility] [place] [address] Care Team Providers Care Solvent Mixer Name Role Phone Faisal Richardson DO Primary Care Provider [phone] Reason for Visit * Reason Comments Pain Hip Right hip pain Encounter Details Date Type Department Care Team (Late st Contact Info) Description 04/04/2023 9:00 AM CDT Office Visit [facility] - Orthopedic Surgery [address] [place] [phone] Torrey Lafleur MD [address] [address] S/P revision of total hip [...] and heating? 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 Overall patientis doing well but still complains of some thigh pain when he first gets up. Denies fevers chills orwound problems. No mechanical symptoms or dislocations. Continuing home therapy exercises. He is not taking any pain medication just Tylenol. He otherwise feels good overall Current Outpatient Medications on File Prior to [...] MG/0.5ML injection ??? ergocalciferol (Drisdol) 1.25 MG (03569 UT) capsule Take 1 (one) capsule by [...] but a negative Trendelenburg sign and gait X-rays: X-rays were reviewed and my independent [...] discussed hip precautions at length. We discussed checking inflammatory markers given his infection history. We will try some more physical therapy for his apparent muscle tightness. We discussed antibiotic prophylaxis before invasive procedures. Follow-up in 3 months. We discussed follow-up sooner if not improving. We discussed physical therapy. We discussed anti-inflammatories but he does take Plavix that he is trying to avoid those. Patient understood the treatment plan and all questions were answered. We will call him if the inflammatory markers are elevated. documented in this encounter Plan of Treatment Upcoming Encounters Date Type Department Care Team (Late st Contact Info) Description 01/20/2025 10:00 AM CDT Office Visit [facility] - Orthopedic Surgery [address] [place] [address] Torrey Lafleur MD [address] [facility] [address] [place] [address] Scheduled Orders Name Type Priority Associated Diagnoses Orde r Schedule C-REACTIVE PROTEIN Lab Routine S/P revision of total hip Ordered: 04/04/2023 SED RATE WESTERGREN MANUAL RFLXD Lab Routine S/P revision of total hip Ordered: 04/04/2023 documented as of this encounter Visit Diagnoses Diagnosis S/P revision of total hip- Primary Hip joint replacement by other means documented in this encounter Care Teams Solvent Mixer Relationship Specialty Start Date End Date Faisal Richardson DO [address] [place] [id number] PCP - General Family Medicine 11/27/22 documented as of this encounter
--- OUTSIDE RECORDS SUMMARY | 2024-07-28 00:59 | XMS_ITS | Encounter Summary ---
Author Organization [facility] Address [address] [place] [address] Care Team Providers Care Peoplesoft Functional Analyst Name Role Phone Faisal Richardson DO Primary Care Provider [phone] Reason for Referral * Home Health Care (Routine) - Closed Specialty Diagnoses / Procedures Referred By Kd figueroa Referred To Contact Home Health Services Diagnoses S/P total right hip arthroplasty Torrey Lafleur MD [address] [facility] [address] [place] [address] [id number] Referral ID Status Reason Start Date Expiration Date V isits Requested Visits Authorized [id number] Closed Specialty Services Required 12/08/2022 12/08/[phone] Reason for Visit * Auth/Cert (Routine) Specialty Diagnoses / Procedures Referred By Contac t Referred To Contact Diagnoses Diagnosis unknown Diagnosis unknown [R69] Procedures ARTHROPLASTY TOTAL HIP REVISION Referral ID Status Reason Start Date Expiration Date Visits Re quested Visits Authorized [id number] 1 1 Encounter Details Date Type Department Care Team (Latest Contact Info) Description 12/08/2022 7:42 AM CDT - 12/09/2022 1:39 PM CDT Hospital Encounter HC 2 ORTHO/NEW VIS [address] [place] [address] Torrey Lafleur MD [address] [facility] [address] [place] [address] Surgery General Discharge Disposition: Home or Self Care Social History Tobacco Use Types Packs/Day Years Used Date Smoking Tobacco: Never Smokeless Tobacco: Never Tobacco Cessation:Counseling Given: Not Answered Alcohol Use Standard Drinks/Week Comments Not Currently 0 (1 standard drink = 0.6 oz pur e alcohol) Sex and Gender Information Value Date Recorded Sex Assigned at Not on file Gender Identity Not on file Sexual Orientation Not on file documented as of this encounter Last Filed Vital Signs Vital Sign Reading Time Taken Comments Blood Pressure 113/59 12/09/2022 11:56 AM CDT Pulse 89 12/09/2022 11:56 AM CDT Temperature 36.9 ??C (98.4 ??F) 12/09/2022 11:56 AM C DT Respiratory Rate 19 12/09/2022 11:56 AM CDT Oxygen Saturation 96% 12/09/2022 11:56 AM CDT Inhaled Oxygen Concentration - - Weight 126.1 kg (278 lb) 12/08/2022 8:23 AM CDT Height 182.9 cm (6') 12/08/2022 8:23 AM CDT Body Mass Index 37.7 12/08/2022 8:23 AM CDT documented in this encounter Discharge Summaries * Blaire Vogt MD - 12/09/2022 1:08 PM CDT Physician Discharge Summary Patient Name: Jose Rutledge Date of : 1965 Admit date: 12/08/2022 Discharge date: 12/09/2022 Admitting Physician: Torrey Lafleur MD Attending Physician: Torrey Lafleur MD Discharge Physician: Torrey Lafleur MD Admission Diagnosis: Right total hip periprosthetic joint infection Past Medical History Past Medical History: Diagnosis Date ??? Aortic stenosis mod-sev on 2022 echo ??? CAD (coronary artery disease) ??? High blood pressure ??? LVH (left ventricular hypertrophy) ??? Mixed hyperlipidemia ??? Restless leg syndrome ??? Sleep apnea uses cpap ??? Stroke (CMS/HCC) 2021 balance residual ??? Type 2 diabetes mellitus without complications (CMS/HCC) Resolved Diagnoses None found. Discharge Diagnoses S/P total right hip arthroplasty Diagnostic Studies xrays Treatments See hospital course Procedures surgery: 12/08/22 revision right total hip arthroplasty Consults Therapy for inpatients Hospital Course The patient underwent the above mentioned procedure, which was without complication. Please see thedetails in the operative report for more information. Post-operatively, the patient was monitored on the floor. He was found to be safe for discharge home with home health PT. After tolerating a PO diet and achieving adequate pain control, the patient was discharged home in good condition. Condition at discharge: good Disposition: Home Code Status At Discharge Full Code Patient Instructions Current Discharge Medication List START taking these medications Instructions Authorizing Provider aspirin 81 MG chew tablet Commonly known as: Aspirin 81 Quantity Dispensed: 70 tablet Take 1 (one) tablet by mouth 2 times daily Blaire Vogt MD famotidine 20 MG tablet Commonly known as: Pepcid Quantity Dispensed: 70 tablet Take 1 (one) tablet by mouth 2 times daily Blaire Vogt MD HYDROcodone-acetaminophen 5-325 MG tablet Commonly known as: [place] Quantity Dispensed: 42 tablet Take 1 (one) tablet by mouth every 4 hours as needed for Pain Blaire Vogt MD pregabalin 50 MG capsule Commonly known as: Lyrica Quantity Dispensed: 70 capsule Take 1 (one) capsule by mouth 2 times daily Blaire Vogt MD CONTINUE taking these medications which have NOT CHANGED Instructions Authorizing Provider amLODIPine 5 MG tablet Commonly known as: Norvasc Take 1 (one) tablet by mouth once daily betamethasone dipropionate 0.05 % ointment Commonly known as: Diprosone as needed calcipotriene 0.005 % ointment Commonly known as: Dovonex Apply to affected area 2 times daily carvedilol 25 MG tablet Commonly known as: Coreg Take 1 (one) tablet by mouth 2 times daily cloNIDine 0.1 MG tablet Commonly known as: Catapres Take 1 (one) tablet by mouth 2 times daily clopidogrel 75 MG tablet Commonly known as: plaVIX Take 1 (one) tablet by mouth once daily cyclobenzaprine 10 MG tablet Commonly known as: Flexeril Take 1 (one) tablet by mouth 2 times daily diclofenac sodium EC 75 MG tablet Commonly known as: Voltaren DSS 100 MG Take 100 mg by mouth 2 times daily ergocalciferol 1.25 MG (32813 UT) capsule Commonly known as: Drisdol Take 1 (one) capsule by mouth ferrous sulfate 325 (65 FE) MG tablet Take 1 (one) tablet by mouth once daily losartan-hydroCHLOROthiazide 100-12.5 MG tablet Commonly known as: Hyzaar Take 1 (one) tablet by mouth every morning metFORMIN 1000 MG tablet Commonly known as: Glucophage Take 1 (one) tablet by mouth 2 times daily One-A-Day Mens Health Formula Tabs Probiotic 1-250 BILLION-MG Caps rosuvastatin 20 MG tablet Commonly known as: Crestor Take 2 (two) tablets by mouth every morning sertraline 50 MG tablet Commonly known as: Zoloft Take 1 (one) tablet by mouth once daily Trulicity 1.5 MG/0.5ML injection Generic drug: dulaglutide STOP taking these medications acetaminophen 500 MG tablet Commonly known as: Tylenol Discharge Procedure Orders AMB REFERRAL TO HOME HEALTH CARE Referral Priority: Routine Referral Type: Home Health Care Referral Reason: Specialty Services Required Requested Specialty: Home Health Services Number of Visits Requested: 999 Discharge time: greater than 30 minutes. documented in this encounter Discharge Instructions * Discharge Instructions* Blaire Vogt MD - 12/09/2022 6:45 AM CDT Orthopedic Discharge Instructions: Hip Precautions as follows: Posterior hip precautions- no flexion past 90 degrees, no adduction past midline, no internal rotation Thigh high VINOD hose when up during the day. May remove at night while sleeping Patient may discontinue compression stocking after two weeks. Ankle flexion exercises every hour during the day to prevent swelling and deep vein thrombosis prevention. Continue ASA 81mg po bid for one month for DVT prophylaxis along with your home plavix Keep wound clean and dry. Change surgical dressing after battery dies. After that you should [...] tub soaks. No scrubbing around incision. Call [phone] to schedule the first follow-up appointment with Dr. Lafleur in 3 week(s) or for any questions documented in this encounter Medications at Time of Discharge Medication Sig Dispensed Refills Start Date End Date Bacillus Coagulans-Inulin (Probiotic) 1-250 BILLION-MG CAPS carvedilol (Coreg) 25 MG tablet Take 1 (one) tablet by mouth 2 times daily 09/28/2021 cyclobenzaprine (Flexeril) 10 MG tablet Take 1 (one) tablet by mouth 2 times daily 03/05/2022 Docusate Sodium (DSS) 100 MG Take 100 mg by mouth 2 times daily 05/03/2022 dulaglutide (Trulicity) 1.5 MG/0.5ML injection 10/17/2021 ergocalciferol (Drisdol) 1.25 MG (88579 UT) capsule Take 1 (one) capsule by mouth 05/02/2022 ferrous sulfate 325 (65 FE) MG tablet Take 1 (one) tablet by mouth once daily metFORMIN (Glucophage) 1000 MG tablet Take 1 (one) tablet by mouth 2 times daily 03/05/2022 Multiple Vitamins-Minerals (One-A-Day Mens Health Formula) TABS 08/06/2021 pregabalin (Lyrica) 50 MG capsule Take 1 [...] by mouth 2 times daily 70 tablet 12/09/2022 12/16/2022 betamethasone dipropionate (Diprosone) 0.05 % ointment as needed 10/10/2021 10/04/2023 calcipotriene (Dovonex) 0.005 % ointment Apply to affected area 2 times daily 12/16/2022 cloNIDine (Catapres) 0.1 MG tablet Take 1 (one) tablet by mouth 2 times daily 03/05/2022 10/04/2023 clopidogrel (plaVIX) 75 MG tablet Take 1 (one) tablet by mouth once daily 03/05/2022 12/16/2022 diclofenac sodium EC (Voltaren) 75 MG tablet 01/29/202212/04 famotidine (Pepcid) 20 MG tablet Take 1 (one) tablet by mouth 2 times daily 70 tablet 12/09/2022 12/16/2022 HYDROcodone-acetaminoph en ([place]) 5-325 MG tabletIndications:S/P total right hip arthroplasty Take 1 (one) tablet by mouth every 4 hours as needed for Pain 42 tablet 12/09/2022 01/02/2023 losartan-hydroCHLOROthi azide (Hyzaar) 100-12.5 MG tablet Take 1 (one) tablet by mouth every morning 10/17/2021 10/04/2023 documented as of this encounter Progress Notes * Roldan Mahmood, PT - 12/09/2022 11:30 AM CDT Physical Therapy Evaluation PT orders received. Chart reviewed for diagnosis and medical systems review. Nursing consented for PT. Explained purpose of PT and patient consented to participate in therapy. RECOMMENDATIONS/PLAN: PT safe to go home from PT standpoint. PT will continue to work with patient while admitted. Discharge PT Discharge Recommendations: Patient would benefit from ongoing therapy with home health Recommended Transportation Method: Private Car PPE worn by staff: gloves;mask - procedural PPE worn by patient: socks - clean AM-PAC Basic mobility score for this patient is Mobility Raw Score:: 18 SUBJECTIVE: Pt reports 6/10 pain in R hip prior to session. He is planning on going home later today and staying with his . House is accessible from the original surgery. Home Situation: Type of Residence: Private Residence Lives with:: Spouse Steps to Enter: No Home Structure: Two story, live on 1st floor Equipment at Home: Chair-Shower;Hand Held Shower;Toilet Seat - Raised;Walker-2 Wheeled;Walker-Standard Prior Level of Functioning: Mobility: Ambulate-In Community Fallen Within 6 Mos: No Have Help at Home?: Yes, there is help at home now Pain Assessment: Pain Location #1 Pain Scale/Observation: Numeric (0-10) Pain Rating Score #1: 6 Sedation Level #1: 1-Awake and alert Patient/family stated goal: Get home. OBJECTIVE: Precautions: Precautions Weight Bearing Status: Lower Extremity Total Hip Precautions: Yes Cognition: Orientation Level: Oriented X4 Cognition: Follows Commands-Consistent Level of Consciousness-Adult: Alert Participation: Active Participation ROM and Strength: AROM - Right Lower Extremity: Within Functional Limits PROM - Right Lower Extremity: Within Functional Limits Strength - Right Lower Extremity: Within Functional Limits AROM - Left Lower Extremity: Within Functional Limits PROM - Left Lower Extremity: Within Functional Limits Strength - Left Lower Extremity: Within Functional Limits Tone: Tone - Left Lower Extremity: Within Normal Limits Tone - Right Lower Extremity: Within Normal Limits Transfers: Stand to Sit: Stand By Assist Mobility: Distance Ambulated: 100 FEET Ambulation: Assistive Device: Gait Belt;Walker-2 Wheeled Ambulation: Level of Assistance: Contact Guard Assist Ambulation: Gait Deviations: Antalgic;Stance Time - Decreased Weight Bearing Status-RLE: Weight Bearing as Tolerated Exercise: PT evaluation completed. Pt presented standing in room with OT and was able to ambulate out into the hallway 100 ft without rest breaks and mod gait deviations. Pt given verbal cues to improve step length and heel strike on R LE. Pt was able to complete transfer back into bedside chair with verbal cuing for safety. Pt left sitting up with all belongings within reach. ASSESSMENT: Pt with good tolerance to PT session overall reporting only minor increase in pain after walking 100 ft. Pt demonstrating antalgic gait pattern with decreased stance time on R LE. He was able to verbalize hip precautions prior to mobilization, and demonstrates good safety awareness withmobility. Pt safe to d/c home from PT perspective and would likely benefit from home health PT to continue to improve on strength and mobility. Call light and phone in reach. All lines, monitors, IV's, equipment in place and intact pre and post visit. RN notified of patient's performance/location end of session. Pt educated in PT plan of care, fall precautions, and benefits of OOB activity. Problem list: decreased strength, decreased balance, decreased endurance, decreased ROM Functional limitations: Decreased independence with ambulation/transfers, decreased safety with functional mobility. Rationale for therapy: Patient will benefit from PT to address the above issues. Please refer to Filed Flowsheet PT Evaluation for further details. Refer to Plan of Care for PT goals. Roldan Mahmood, PT * Candelario June, OT - 12/09/2022 10:55 AM CDT Occupational Therapy Initial Evaluation Orders received. Chart reviewed for diagnosis and medical systems review. Nursing consented for OT. Explained purpose of OT and patient consented to participate in therapy. 1. S/P total right hip arthroplasty 2. Pre-op testing 3. Pain 4. Diagnosis unknown RECOMMENDATIONS/PLAN: Patient would benefit from continued skilled OT services during acute stay toimprove safety and independence with ADLs and functional mobility. Discharge OT Discharge Recommendations: Patient would benefit from ongoing therapy with home health AM-PAC Daily Activity score for this patient is Daily Activity Raw Score:: 17 Precautions: Fall, bed/chair alarm, WBAT RLE with posterior hip precautions, wound vac SUBJECTIVE: My bed is adjustable. Psychosocial: Patient Behaviors: Calm;Cooperative Pt's goal for therapy: eval Occupational Profile/PLOF: Type of Residence: Private Residence Lives with:: Spouse Home Structure: Two story, live on 1st floor Ramp: Yes Primary Bedroom: First Floor Primary Bathroom: First Floor Bathroom : Walk in Shower Equipment at Home: Chair-Shower;Hand Held Shower;Toilet Seat - Raised;Walker-2 Wheeled;Walker-Standard Mobility: Ambulate-In Community;Ambulate-In Home ;Independent Fallen Within 6 Mos: No Have Help at Home?: Yes, there is help at home now How often is assistance provided?: Patient reports his can assist at home. Level of Help Sufficient?: Yes Oxygen at Home: No Cognition: Orientation Level: Oriented X4 Level of Consciousness-Adult: Alert Cognition: Follows Commands-Consistent;Attention/concentration-normal for age;Processing-Appropriate Pain Assessment: Pain Location #1 Pain Scale/Observation: Numeric (0-10) Pain Rating Score #1: 2 Sedation Level #1: 1-Awake and alert Pain Location : Hip Pain Orientation: Right Pain Quality: Aching;Discomfort RUE Assessment: AROM - Right Upper Extremity: Within Functional Limits Strength - Right Upper Extremity: Within Functional Limits Digital Project Coordinator Strength - Right Upper Extremity: WFL LUE Assessment: AROM - Left Upper Extremity: Within Functional Limits Strength - Left Upper Extremity: Within Functional Limits Digital Project Coordinator Strength - Left Upper Extremity: WFL: Basic ADL's: per functional observation and clinical judgement Feeding: Complete [place] Oral Facial Hygiene: Stand By Assist Bathing: Minimal Assistance Upper Body Dressing: Set-up (bed level) Lower Body Dressing: Total Assistance (patient declines practicing with LHAE stating he feels comfortable with equipment/ will assist) Toileting: Minimal Assistance Functional Mobility: Bed Mobility: Supine to Sit: Stand By Assist (with HOB elevated with bed rail) Sit to Supine: Activity Does Not Occur Transfers: Sit to Stand: Stand By Assist Stand to Sit: Stand By Assist Oxygen Therapy: RA Vitals: Activity Tolerance: Requires rest breaks ASSESSMENT: Patient in bed at arrival. Patient pleasant and agreeable to therapy session at this time. Patient provided PLOF/home situation information and completed UE assessment, ADL task assessment, and functional mobility/transfers. Reviewed PHP prior to mobility via explanation, demonstration,and handout. Patient verbalizes good understanding. Recalls 2/3 (reminded to avoid internal rotation). Patient SBA for bed mobility. SBA for functional mobility with walker. Provided patient with LHAE including sock aid, government relations manager, LH sponge, and LH shoe horn. Provided handout highlighting use of LHAE for LB ADLs. Patient declines practicing use of LHAE stating he both feels comfortable using from p revious surgeries and his will assist. Patient has appropriate DME for bathroom for maintaining hip precautions (shower chair and raised toilet seat). Patient tolerates session well. Limitationsas noted below. Ambulating with PT at OT departure. Working with PT at departure. All lines, monitors, IV's, equipment in place and intact pre and post visit. RN, Rubia, notified of patient's performance/location end of session. Educated patient/family in OT role/purpose, ADL task training, and functional mobility/transfers. Problem list: strength, balance, endurance, precautions, pain Functional limitation: Decreased independence with transfers; decreased [...] visit, this serves as the discharge summary. June ASCMIGUEL ÁNGEL [id number] * Blaire Vogt MD - 12/09/2022 6:16 AM CDT Orthopedic Surgery Progress Note Name: Jose Rutledge 57 year old, male : 1965 Admit Date: 12/08/2022 7:42 AM December 09, 2022 Subjective Patient seen this morning on rounds. In no acute distress. Pain is controlled. No new questions or concerns. Data BP 90/56 Pulse 90 Temp 98.8 ??F (37.1 ??C) (Oral) Resp 20 Ht 1.829 m (6') Wt 126.1 kg (278 lb) SpO2 95% Temp (24hrs), Av.2 ??F (36.8 ??C), Min:97.8 ??F (36.6 ??C), Max:98.8 ??F (37.1 ??C) Labs Recent Labs Component Name 12/09/22 0311 12/08/22 0835 11/27/22 0950 07/16/14 1433 07/16/14 0019 WBC - 6.3 5.7 - 11.4* HGB 8.3* 12.4 12.9 - 8.7* HCT 23.8* 36.2 38.0 - 25.3* PLTCOUNT - 130* 147* - 165 - = values in this interval not displayed. Physical Exam General appearance: Well-nourished., No apparent distress., Cooperative., Alert. and Responsive. Right lower extremity: Motor: Able to plantarflex and dorsiflex ankle. Sensation to light touch grossly intact over foot. 2+DP, Toes warm and well perfused distally. Dressing is intact, clean, and dry. Hip abduction pillow in place. Prevena holding good suction. Assessment/Plan 57 year old male with: Active Problems: S/P total right hip arthroplasty Post op day #1 status post Procedure(s) (LRB): REVISION RIGHT TOTAL HIP ARTHROPLASTY BOTH COMPONENTS, REMOVAL OF ANTIBIOTIC SPCER RIGHT HIP (Right) PREVENA/ WOUND VAC APPLICATION RIGHT HIP (Right) 1. right lower extremity: WBAT with PHP 2. Continue pain control 3. Activity: as tolerated with PHP 4. PT/OT 5. Complete kaia-op abx 6. DVT PPx: ASA 81mg BID and home plavix 7. Likely discharge home today pending PT 8. Please page ortho with questions Blaire Vogt MD 12/09/2022 8:17 AM Pager: [phone] Please give the following instructions to the patient upon discharge/transfer: ?? Hip Precautions as follows: ?? Posterior hip precautions- no flexion past 90 degrees, no adduction past midline, no internal rotation ?? Thigh high VINOD hose when up during the day. May remove at night while sleeping ?? Patient may discontinue compression stocking after two weeks. ?? Ankle flexion exercises every hour during the day to prevent swelling and deep vein thrombosis prevention. ?? Continue ASA 81mg po bid for one month for DVT prophylaxis along with your home plavix ?? Keep wound clean and dry. Change surgical dressing after battery dies. After that you should [...] soaks. No scrubbing around incision. ?? Call [phone] to schedule the first follow-up appointment with Dr. Lafleur in 3 week(s) or for any questions * Black Taveras RN - 12/08/2022 11:13 PM CDT Problem: Pain/Discomfort Goal: Patient exhibits reduced [...] in the flowsheet documentation) Outcome: Progressing Problem: Hip Precautions Goal: Hip precautions are followed Outcome: Progressing Problem: Procedural Site (Incision) Care Goal: Incision remains intact with edges well approximated Outcome: Progressing Goal: Incision is free of infection. Outcome: Progressing Problem: Activity Intolerance/Impaired Mobility Goal: Mobility/activity is maintained at optimum level for patient Outcome: Progressing * Blaire Vogt MD - 12/08/2022 2:57 PM CDT Orthopaedic Surgery Postoperative Check Surgery Date: 12/08/2022 Diagnosis: Right total hip arthroplasty infection Procedure Preformed: Procedure(s): REVISION RIGHT TOTAL HIP ARTHROPLASTY BOTH COMPONENTS, REMOVAL OF ANTIBIOTIC SPCER RIGHT HIP PREVENA/ WOUND VAC APPLICATION RIGHT HIP Subjective Complaints: none Nausea/vomiting: absent Pain: Controlled Postoperative vitals: Patient Vitals for the past 6 hrs: Temp BP Method 12/08/22 1450 97.9 ??F (36.6 ??C) Automatic Physical Exam General appearance: Resting in PACU Right lower extremity: Motor: Able to flex and extend great toe, plantarflex and dorsiflex ankle. Sensation to light touch intact over medial foot, dorsal foot, lateral foot, 1st web space, all toes,and plantar foot. 2+DP, Toes warm and well perfused distally, symmetric to contralateral. Dressing is intact, clean, and dry. Prevena holding suction Assessment/Plan Status post Procedure(s): REVISION RIGHT TOTAL HIP ARTHROPLASTY BOTH COMPONENTS, REMOVAL OF ANTIBIOTIC SPCER RIGHT HIP PREVENA/ WOUND VAC APPLICATION RIGHT HIP 1. The right lower extremity: weight bearing as tolerated with posterior hip precautions 2. Activity: as tolerated from ortho perspective while maintaining PHP 3. PT/OT 4. Pain Control- oral medications 5. DVT Prophylaxis: ASA and plavix 6. Drains? Incisional WV x1 7. Continue perioperative antibiotics 8. Admit to floor under Dr. Ciarra Vogt MD 12/08/2022 2:57 PM Pager: [phone] If you have any questions about the orthopedic care of this patient, please page me at the number above between the hours of 6am-5pm. If it is outside these hours, please page the orthopedic surgery resident stationary plant operators. Please give the following instructions to the patient upon discharge/transfer: ?? Hip Precautions as follows: ?? Posterior hip precautions- no flexion past 90 degrees, no adduction past midline, no internal rotation ?? Thigh high VINOD hose when up during the day. May remove at night while sleeping ?? Patient may discontinue compression stocking after two weeks. ?? Ankle flexion exercises every hour during the day to prevent swelling and deep vein thrombosis prevention. ?? Continue aspirin and plavix for one month for DVT prophylaxis. ?? Keep wound clean and dry. Change surgical dressing after the battery dies. After that you shouldperform daily or every other day dressing changes with dry gauze and tape as needed for saturation.After ingris/sutures have been removed it is OK to shower but leave wound covered with a dressing in the shower. After shower, remove the wet dressing, pat dry, and apply antibiotic ointment over wou nd then place a clean dry dressing. ?? Apply an antibiotic ointment (neosporin/bacitracin) to incision daily after initial surgical dressing has been removed ?? Do not get incision wet in shower until ingris are removed. No tub soaks. No scrubbing around incision. ?? Call [phone] to schedule the first follow-up appointment with Dr. Lafleur in 3 week(s) or for any questions * Guille Mas - 11/30/2022 3:37 PM CDT Home Health Agency: [facility] Confirmed: 11/30/2022 Start Date: 12/09/2022 Contact: Dee [phone] documented in this encounter H&P Notes * Torrey Lafleur MD - 12/08/2022 6:43 AM CDT [facility] Orthopedic Adult Reconstruction Surgery H&P Note Jose Rutledge, 57 year old, male : 1965 [facility]: [id number] Diagnosis/Procedures 1.) 57 year old male with infected right ALIREZA now s/p right hip antibiotic spacer placement Today's Date: 12/08/2022 History Patient seen and examined this AM. Has been NPO since midnight. Ready to proceed to OR today for right revision total hip arthroplasty with removal of antibiotic spacer Jose Rutledge is a 57 year old male with right hip pain no longer responding to conservative care. Patient presents today for operative intervention. Conservative treatment for patient's DJD including >12 weeks of PT, NSAIDS, glucosamine/Vit D, ambulatory aids, weight loss, and corticosteroid injections has failed. The patient was last seen in clinic on 11/21/22 and denies any new medical issues since being seen. No fever, chills or recent illnesses. Pertinent ROS otherwise negative. No otherconcerns at this time. Objective There were no vitals taken for this visit. PMHx Past Medical History: Diagnosis Date ??? High blood pressure ??? Mixed hyperlipidemia ??? Restless leg syndrome ??? Sleep apnea ??? Stroke ([facility]) 2021 balance residual ??? Type 2 diabetes mellitus without complications ([facility]) PSHx Past Surgical History: Procedure Laterality Date ??? Appendectomy ??? COLONOSCOPY ??? EGD ??? Rotator Cuff Repair Right ??? SHOULDER ARTHROPLASTY, TOTAL Left Social Hx Social History Tobacco Use ??? Smoking status: Never ??? Smokeless tobacco: Never Vaping Use ??? Vaping status: Never Used Substance Use Topics ??? Alcohol use: Yes Family Hx family history includes Cancer in his father; Diabetes in his mother; Hypertension in his mother. Allergies Allergies Allergen Reactions ??? Penicillins Angioedema Medications No current facility-administered medications for this encounter. Current Outpatient Medications Medication ??? acetaminophen (Tylenol) 500 MG tablet ??? amLODIPine (Norvasc) 5 MG tablet ??? Bacillus Coagulans-Inulin (Probiotic) 1-250 BILLION-MG CAPS ??? betamethasone dipropionate (Diprosone) 0.05 % ointment ??? calcipotriene (Dovonex) 0.005 % ointment ??? carvedilol (Coreg) 25 MG tablet ??? cloNIDine (Catapres) 0.1 MG tablet ??? clopidogrel (plaVIX) 75 MG tablet ??? cyclobenzaprine (Flexeril) 10 MG tablet ??? diclofenac sodium EC (Voltaren) 75 MG tablet ??? Docusate Sodium (DSS) 100 MG ??? dulaglutide (Trulicity) 1.5 MG/0.5ML injection ??? ergocalciferol (Drisdol) 1.25 MG (78807 UT) capsule ??? ferrous sulfate 325 (65 FE) MG tablet ??? losartan-hydroCHLOROthiazide (Hyzaar) 100-12.5 MG tablet ??? metFORMIN (Glucophage) 1000 MG tablet ??? Multiple Vitamins-Minerals (One-A-Day Mens Health Formula) TABS ??? rosuvastatin (Crestor) 20 MG tablet ??? sertraline (Zoloft) 50 MG tablet Review of Systems A 12 point review of systems was performed and was negative except for what was mentioned in the HPI Physical Exam General: Alert, cooperative, in no acute distress. CV: RRR, distal pulses equal and symmetric Resp: no increased labor of breathing Musculoskeletal: Right lower extremity: -Appearance: skin warm/dry/intact and without lesions, previous incision is healed -ROM: nontender to gentle ROM of hip -Motor: Able to PF/DF ankle and great toe. Extensor mechansim is intact -Sensation: SILT in DP/SP/Sural/Saphenous/Tibial nerve distributions at the foot -Vascular: 2+ DP/ PT pulse with toes warm and well perfused Imaging - No new imaging Assessment/Plan: 57 year old male with right infected ALIREZA now s/p right hip antibiotic spacer placement 1. In light of the patient's above mentioned injuries, and following discussion of various treatment options, surgical management was elected for treatment of his injury. Following discussion of the indications, contraindications, risks, benefits, and potential complications the patient agreed to the procedure and consent was obtained. 2. Correct surgical site to be marked. 3. Proceed to OR today for right revision total hip arthroplasty with antibiotic spacer removal 4. Continue NPO, sips with meds OK 5. Hold DVT chemoprophylaxis. Please place TEDhose in preop 6. Pre-op Ancef (3 grams) to be dosed when patient is in the OR , preop Gentamycin 400mg, please start dosing Gentamycin in preop area, Vancomycin 1g as well given infection history Kg Mg 40-49 160 50-59 200 60-69 240 70-79 280 80-89 320 90-99 360 100-119 400 7. TXA ordered: 1 gram to be given in the OR prior to incision. 1 gram to be given at the time of surgical closure 8. Celebrex 200mg to be given preop 9. Plan for postop admission to Dr. Lafleur 10. Please page Orthopedics with any questions or concerns Blaire Vogt MD 12/08/2022 6:43 AM Patient seen and examined, agree with above resident note. Site marked This patient? s prior H&P was reviewed, the patient was examined and no change has occurred in the patient's condition since the prior H&P was completed. Briefly, this is a 57 year old male with right hip pain secondary to status post removal of infected right hip arthroplasty at outside facility with placement of antibiotic cement spacer with normal inflammatory markers status post previous debridement and antibiotic course. Exam reveals right hip limitation of and pain with ROM. Complete examination/plan noted above. I personally examined the patient and edited and agree with the above findings in the note Assessment/Plan: Conservative treatment for right hip pain secondary to status post removal of infected right hip arthroplasty at outside facility with placement of antibiotic cement spacer with normal inflammatory markers status post previous debridement and antibiotic course including >12 weeks of PT, NSAIDS, glucosamine/Vit D, ambulatory aids, and weight loss will fail as the spacer is not a durable implant. Further conservative treatment which has been unsuccessful is contraindicated as it would lead to further debility and worsening deconditioning. Symptoms of pain, difficulty ambulating, increased risk of falling due to poor range of motion and instability/locking/and catching, difficulty standing, difficulty with stair climbing and difficulty with personal hygiene are interfering with patient's lifestyle. Will proceed with previously discussed revision right hip arthroplasty with removal of antibiotic cement spacer Risks, benefits, and alternatives to the surgical procedure were discussed with the patient and present family members. Risks discussed among others but not limited to were: Infection and persistent infection given his history of infection, bleeding/blood transfusion, neurovascular damage, prosthetic joint instability, limb length discrepancy, periprosthetic fracture, failure to improve symptoms,venous thrombosis/pulmonary embolism, and anesthesia complications including myocardial infarction,stroke, or even . We also discussed the [...] diagnoses of right hip pain secondary to status post removal of infected right hip arthroplasty at outside facility with placement of antibiotic cement spacer with normal inflammatory markers status post previous debridement and antibiotic course and current medical/postoperative needs are included below. The patient has the following complex medical factors: No current facility-administered medications on file prior to encounter. Current Outpatient Medications on File Prior to Encounter Medication Sig Dispense Refill ??? acetaminophen (Tylenol) 500 MG tablet ??? amLODIPine (Norvasc) 5 MG tablet Take 1 (one) tablet by mouth once daily ??? Bacillus Coagulans-Inulin (Probiotic) 1-250 BILLION-MG CAPS ??? betamethasone dipropionate (Diprosone) 0.05 % ointment as needed ??? calcipotriene (Dovonex) 0.005 % ointment Apply to affected area 2 times daily ??? carvedilol (Coreg) 25 MG tablet Take [...] MG/0.5ML injection ??? ergocalciferol (Drisdol) 1.25 MG (22388 UT) capsule Take 1 (one) capsule by mouth ??? ferrous sulfate 325 (65 FE) MG tablet Take 1 (one) tablet by mouth once daily ??? losartan-hydroCHLOROthiazide (Hyzaar) 100-12.5 MG tablet Take 1 (one) tablet by mouth every morning ??? metFORMIN (Glucophage) 1000 MG tablet Take 1 (one) tablet by mouth 2 times daily ??? Multiple Vitamins-Minerals (One-A-Day Mens Health Formula) TABS ??? rosuvastatin (Crestor) 20 MG tablet Take 1 (one) tablet by mouth every morning ??? sertraline (Zoloft) 50 MG tablet Take 1 (one) tablet by mouth once daily Past Medical History: Diagnosis Date ??? High blood pressure ??? Mixed hyperlipidemia ??? Restless leg syndrome ??? Sleep apnea ??? Stroke (CMS/HCC) 2021 balance residual ??? Type 2 diabetes mellitus without complications (CMS/HCC) Past Surgical History: Procedure Laterality Date ??? Appendectomy ??? COLONOSCOPY ??? EGD ??? HIP ARTHROPLASTY, TOTAL Right ??? OTHER [...] ??? Drug use: No ??? Sexual activity: Not on file Family History Problem Relation Name Age of Onset ??? Diabetes Mother Status: Alive ??? Hypertension Mother ??? Cancer Father rectal; Status: . Jose Rutledge needs to be admitted for 1-2 [...] for transfusion necessity after major orthopaedic surgery Please see resident's note for further details. documented in this encounter Consult Notes * Dianne Simmons RN - 12/08/2022 9:07 AM CDT [facility] is out of service area with patient's zip code, and therefore is unable to accept patient for home health services. Please see Guille's note for refer out information. Thank you. 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 Total hip arthroplasty was placed. One cable placed around the proximal femur for intraoperative proximal femur fracture. EBL: 2000 mL Urine Output : 1500 mL IV Fluid Intake: Please see anesthesia record Drains: * No LDAs found * Specimen(s): ID Type Source Tests Collected by Time Destination 1 : Microbiology Hip CULTURE ANAEROBE, CULTURE WOUND+GRAM STAIN Torrey Lafleur MD 12/08/2022 1124 Implant(s): Implant Name Type Inv. Item Serial No. Business Excellence Leader Lot No. LRB No. Used Action Shell Actb 62Mm Hip 3 Hl Por R3 Shell Actb 62Mm Hip 3 Hl Por R3 [employer] [id number] Right 1 Implanted Screw 6.5Mm 25Mm Hip Actb Canc Sphrcl Screw Screw 6.5Mm 25Mm Hip Actb Canc Sphrcl [employer] [id number] Right 1 Implanted Cable Orth Cocr 2Mm 75Mm Troch Clp Cable Cable Orth Cocr 2Mm 75Mm Troch Clp [employer] [id number] Right 1 Implanted Liner Actb R3 0D 62Mm 44Mm Xlpe Liner Actb R3 0D 62Mm 44Mm Xlpe [employer] [id number] Right 1 Implanted FEM HIGH OFFSET SLEEVED STEM 17H X 240MM [employer] [id number] Right 1 Implanted Head Fem 44Mm Mdlr Tl Oxnm Head Fem 44Mm Mdlr Tl Oxnm [employer] [id number] Right 1 Implanted SLV FEM ANTHOLOGY +4 TPR HIP TI Pros Fem Mtl Por Uncemented Smcnstr [employer] [id number] Right 1 Implanted Slv Centering 50Mm 20-23Mm Redapt 16-17 Slv Centering 50Mm 20-23Mm Redapt 16-17 [employer] [id number] Right 1 Implanted Blaire Vogt MD * Operative - Torrey Lafleur MD - 12/08/2022 11:17 AM CDT DATE OF SURGERY: 12/08/2022 Jose Rutledge [id number] PREOP DX: Status post removal of infected right hip arthroplasty at outside facility with placementof antibiotic cement spacer POSTOP DX: Status post removal of infected right hip arthroplasty at outside facility with placement of antibiotic cement spacer with proximal femoral periprosthetic fracture due to loose implant with over medialization/medial erosion of the acetabulum due to previous antibiotic spacer and previous surgeries PROCEDURE: 1. Revision right total hip arthroplasty 2. Removal of antibiotic cement spacer right hip 3. Fixation of proximal femoral periprosthetic fracture 4. Suture line wound VAC application right hip/Prevena wound VAC application for wound at risk SURGEON: Omar Lafleur MD DESIGN ASSEMBLER(S): Blaire Vogt MD ANESTHESIA: GET INDICATIONS FOR PROCEDURE: Pt is a 57 y/o who presented to clinic for severe right hip pain after having his right infected hip arthroplasty removed at an outside facility. X-rays revealed an antibiotic cement spacer in place in the right hip and his inflammatory markers were normal this week. Risks, benefits, and alternatives to the surgical procedure were discussed with the patient and present family members. Risks discussed among others were: Infection and persistent infection, bleeding/blood transfusion, [...] of the procedure and another gram at the 3-hour point to decrease blood loss at which time he also received another dose of Ancef. After an appropriate timeout verifying surgical site and patient allergies/comorbidities, the right hip was prepped and draped in the usual sterile fashion using alcohol and chloraprep. A #10 blade was used to make the posterolateral incision incorporating his old scar distally but curving posteriorly superiorly due to a very anterior position of his previous scar. Electrocautery was used to dissect down to the fascia through his scarred indurated tissues. The fascia was split proximally and distally and gluteus sushant was split in line with its fibers proximally. The Charnley retractor was placed deep to the fascia. The sciatic nerve was palpated and identified but was not formally dissected out to avoid devascularization. The short external rotators and pseudo capsule were removed from the proximal femur in the usual fashion as a continuous sleeve with electrocautery protecting the abductors with a no-name retractor. The hip was then internally rotated but the hip would not dislocate even with traction and bone hooks being used to try to remove the antibiotic spacer. There was obvious gross motion proximally with rotation of the femur but the antibiotic spacer would stay in a fixed position. Osteotomes were used to remove portions of the femoral head and they were finally able to remove the spacer from the acetabulum and abundant cement remained within the acetabulum. The spacer was easily removed from the proximal femur as it was completely loose and it was noted that there was a proximal femoral fracture anteriorly with a loose V-shaped anterior segment which was dissected out from soft tissue and removed. Attention was then directed to the acetabulum. A rent was created in the anterior capsule with a curved clamp and a sharp cobra retractor was placed directly on bone over the anterior rim of the acetabulum to retract the femur anteriorly. Circumferential soft tissue scar was removed from the acetabulum and the base of the acetabulum and that was very medialized. Sequential reaming was then undertaken starting with a size 54 up to a size 61 to accept a 62 mm cup. Good bleeding bone was circumferential in the acetabulum and all soft tissue was cleared for component impaction. The acetabular component size 62 was then impacted in the position of 40 degrees of abduction and 25 degrees of antever charles using the guide from the set as well as anatomic landmarks including the sciatic notch posteriorly. A trial liner was placed. One circumferential cerclage cable was placed just distal to the V-shaped fracture from the loose antibiotic spacer to prevent propagation of the fracture distally. Sequential reaming was undertaken first with a sharp reamer to get past the pedestal followed by starting with a size 10 up to a size 17 mm reamer which had excellent chatter in the diaphysis of the femur. We reamed the proximal portion for an extra small sleeve. Trials were assembled with a +0 and a +4 neck length and we trialed both regular and high offset and settled on the high offset stem due to the medialization of the acetabular component. It was noted that the hip would impinge anteriorly from the hypertrophic anterior gr eater trochanter and possibly heterotopic ossification so we excised this anteriorly and we reducedthe hip. The hip was reduced and taken through a range of motion - the hip was stable at 90 degreesof flexion with internal rotation past 60 degrees without subluxation. At 30 degrees of flexion andadduction of the knee it was stable to internal rotation past 60 degrees. The hip had full extension and abduction without impingement. The hip was stable anteriorly to external rotation. Limb lengths were clinically equal. Trials were removed, a screw was drilled for and measured in the acetabulumto ensure it was within bone. The hip thoroughly irrigated and the acetabular component size was 62mm the acetabular liner was then impacted. Osteophytes were removed from the periphery of the cup with an osteotome to prevent impingement. The femoral trial was removed and the canal irrigated and suctioned. The stem was then impacted size [id number]. The head was then placed size 44+4. Hip was again taken through a range of motion after reduction and the hip was stable as noted previously. Thorough irrigation with the above solution and dilute betadine solution with 35cc betadine solution in 1000cc of saline (3 minute soak) X 2 was followed by sprinkling of 1 g vancomycin in the soft tissues. The short external rotators were repaired back the the posterior femur with #3 vicryl sutures and the fascia closed with 1 stratafix running barbed suture followed by 2-0 vicryl for the sub Q and skin ingris for the skin. A Prevena dressing was then placed for his wound at risk. The patient was placed into an abduction pillow and awakened from general anesthesia then taken to recovery room in stable condition. There were no complications. In recovery the patient had a palpable DP pulse and could dorsiflex and plantarflex the ankles and toes, indicating good neurovascular function. SPECIMENS: Cultures were taken upon entering the hip joint DRAINS: A Prevena wound VAC sponge was placed on the incision and placed to suction for his wound at risk. COMPLICATIONS: None ESTIMATED BLOOD LOSS: 2000cc DISPOSITION: TO RR in stable condition POSTOP PLAN: Pt will be up in the AM WBAT and will be maintained on posterior hip precautions with physical therapy. IMPLANTS - Implant Name Type Inv. Item Serial No. Business Excellence Leader Lot No. LRB No. Used Action Shell Actb 62Mm Hip 3 Hl Por R3 Shell Actb 62Mm Hip 3 Hl Por R3 [employer] [id number] Right 1 Implanted Screw 6.5Mm 25Mm Hip Actb Canc Sphrcl Screw Screw 6.5Mm 25Mm Hip Actb Canc Sphrcl [employer] [id number] Right 1 Implanted Cable Orth Cocr 2Mm 75Mm Troch Clp Cable Cable Orth Cocr 2Mm 75Mm Troch Clp [employer] [id number] Right 1 Implanted Liner Actb R3 0D 62Mm 44Mm Xlpe Liner Actb R3 0D 62Mm 44Mm Xlpe [employer] [id number] Right 1 Implanted FEM HIGH OFFSET SLEEVED STEM 17H X 240MM [employer] [id number] Right 1 Implanted Head Fem 44Mm Mdlr Tl Oxnm Head Fem 44Mm Mdlr Tl Oxnm [employer] [id number] Right 1 Implanted SLV FEM ANTHOLOGY +4 TPR HIP TI Pros Fem Mtl Por Uncemented Smcnstr [employer] [id number] Right 1 Implanted Slv Centering 50Mm 20-23Mm Redapt 16-17 Slv Centering 50Mm 20-23Mm Redapt 16-17 [employer] [id number] Right 1 Implanted COUNTS: Sponge and needle counts were correct at the end of procedure and I was present for the entire case. Addendum: This is an addendum to the operative note above for billing purposes only. The procedure should be considered for higher billing modifier.22 with 30% increased billing. The patient was transferred from an outside hospital by an outside treating orthopaedic surgeon who felt they did not possess the expertise to care for the patient's difficult condition to a tertiary center for evaluation and treatment of the difficult problem of status post removal of an infected hip arthroplasty at an outside facility with an antibiotic cement spacer in place with a loose spacer and proximal femoral bone loss/fracture. The procedure required increased operative time of over 3 hr which is at leastan hour longer than most primary and revision hip/knee arthroplasties as well as special techniquesfor reconstruction and fixation to allow for good implant fixation and long-lasting function. The procedure was also very difficult and fraught with multiple possible complications including infection and instability so for the reasons noted above: increased operative time, increased difficulty, and referral to a fellowship trained total joint arthroplasty specialist from an outside facility due to the difficulty of the procedure, the procedure should be considered for higher billing modifier 0.22 with 30 percent increased billing Torrey Lafleur MD documented in this encounter Plan of Treatment Upcoming Encounters Date Type Department Care Team (Late st Contact Info) Description 01/20/2025 10:00 AM CDT Office Visit [facility] - Orthopedic Surgery [address] [place] [address] Torrey Lafleur MD [facility] [address] [address] (work) Scheduled Referrals Name Type Priority Associated Diagnoses Orde r Schedule AMB REFERRAL TO HOME HEALTH CARE Outpatient Referral Routine S/P total right hip arthroplasty Ordered: 12/08/2022 documented as of this encounter Procedures Procedure Name Priority Date/Time Associated Diagnosis Comments CARDIAC RHYTHM STRIP ORDER 12/11/2022 9:12 PM CDT PREPARE RBC LEUKOREDUCED UNIT Routine 12/10/2022 1:41 AM CDT Pre-op testing GLUCOSE - POINT OF CARE Routine 12/09/2022 11:55 AM CDT GLUCOSE - POINT OF CARE Routine 12/09/2022 7:22 AM CDT HGB HCT PANEL AM Draw 12/09/2022 3:11 AM CDT S/P total right hip arthroplasty GLUCOSE - POINT OF CARE Routine 12/08/2022 9:06 PM CDT GLUCOSE - POINT OF CARE Routine 12/08/2022 5:39 PM CDT XR PELVIS 1 OR 2VW STAT 12/08/2022 3: 34 PM CDT S/P total right hip arthroplasty GLUCOSE - POINT OF CARE Routine 12/08/2022 3:04 PM CDT FL ABBIE SURGERY Routine 12/08/2022 2:15 PM CDT Pain BLOOD GASES ART + LYTES GLU CA+ HH (ISTAT) Routine 12/08/2022 1:29 PM CDT BLOOD GASES ART + LYTES GLU CA+ HH (ISTAT) Routine 12/08/2022 12:32 PM CDT CULTURE WOUND+GRAM STAIN STAT 12/08/2022 11:24 AM CDT Diagnosis unknown CULTURE ANAEROBE STAT 12/08/2022 11:2 4 AM CDT Diagnosis unknown PLACEMENT/CHANGE WOUND VAC 12/08/2022 9:51 AM CDT Diagnosis unknown Special Needs NEEDS 12 C-ARM, OLD JESÚS TABLE WITH PEGBOARD, O.R. ROOM # 3, [employer]HEW--REP. (TATA Kimble # [phone]) NOTIFIED BY SURGEON PER OFFICE (VELIA)--11/23 KW ARTHROPLASTY TOTAL HIP REVISION 12/08/2022 9:51 AM CDT Diagnosis unknown Special Needs NEEDS 12 C-ARM, OLD JESÚS TABLE WITH PEGBOARD, O.R. ROOM # 3, WALDEN AND NEPHEW--REP. (TATA Kimble # [phone]) NOTIFIED BY SURGEON PER OFFICE (VELIA)--11/23 KW CBC W AUTO DIFFERENTIAL DEZ 12/08/2022 8:35 AM CDT Pre-op testing GLUCOSE - POINT OF CARE Routine 12/08/2022 8:33 AM CDT documented in this encounter Results * CARDIAC RHYTHM STRIP ORDER (12/11/2022 9:12 PM CDT) Narrative 12/11/2022 9:12 PM CDT Ordered by an unspecified provider. Scanned Document CARDIAC SERVICES ORD ERABLES * PREPARE (CROSSMATCH) RBC UNIT(S), 2 Units (12/10/2022 1:41 AM CDT) Unit Description AS1 LR PRBC [facility] Unit ABO O [facility] Unit Rh POS [facility] Product Number R02 [facility] Unit Donor # [id number] [facility] Unit Status released [facility] Product Code [id number] [facility] Blood Type Barcode 5100 [facility] Expiration Date [facility] BLOOD BANK LAB Unit Description AS1 LR PRBC [facility] BLOOD BANK LAB Unit ABO O [facility] BLOOD BANK LAB Unit Rh POS [facility] BLOOD BANK LAB Product Number R02 [facility] BLOOD BANK LAB Unit Donor # [id number] [facility] BLOOD BANK LAB Unit Status released [facility] OD BANK LAB Product Code [id number] [facility] BL OOD BANK LAB Blood Type Barcode 5100 [facility] BLOOD BANK LAB Expiration Date S [facility] BLOOD BANK LAB Unit Description AS1 LR PRBC [facility] BLOOD BANK LAB Unit ABO O [facility] BLOOD BANK LAB Unit Rh POS [facility] BLOOD BANK LAB Product Number R02 [facility] BLOOD BANK LAB Unit Donor # [id number] [facility] C BLOOD BANK LAB Unit Status released [facility] OD BANK LAB Product Code [id number] [facility] BL OOD BANK LAB Blood Type Barcode 5100 [facility] BLOOD BANK LAB Expiration Date S [facility] BLOOD BANK LAB Unit Description AS1 LR PRBC [facility] BLOOD BANK LAB Unit ABO O [facility] BLOOD BANK LAB Unit Rh POS [facility] BLOOD BANK LAB Product Number R02 [facility] BLOOD BANK LAB Unit Donor # [id number] [facility] C BLOOD BANK LAB Unit Status released [facility] OD BANK LAB Product Code [id number] [facility] BL OOD BANK LAB Blood Type Barcode 5100 [facility] BLOOD BANK LAB Expiration Date S [facility] BLOOD BANK LAB Blood Bank BLOOD SPECIMEN / Unknown 11/27/2022 10:14 AM CDT uSnitha Fung MD LAB - BLOOD BANK ORD ERABLES Performing Organization Address City/[facility]/ZIP Co de Phone Number [facility] BLOOD [facility] [address] [place] [address] * (ABNORMAL) GLUCOSE - POINT OF CARE (12/09/2022 11:55 AM CDT) Glucose WB/POC 170(H) 70 - 106 mg/dL 12/09/2022 12:40 PM CDT [facility] Specimen Type Cap Fingerstick 2022 12:40 PM CDT [facility] Blood BLOOD SPECIMEN / Unknown 12/09/2022 11:55 AM CDT 12/09/2022 12:40 PM CDT Torrey Lafleur MD LAB - POINT OF CARE ORDERABLES [facility] [address] [place] [phone] * (ABNORMAL) GLUCOSE - POINT OF CARE (12/09/2022 7:22 AM CDT) Glucose WB/POC 167(H) 70 - 106 mg/dL 12/09/2022 7:27 AM CDT [facility] Specimen Type Cap Fingerstick 2022 7:27 AM CDT [facility] Blood BLOOD SPECIMEN / Unknown 12/09/2022 7:22 AM CDT 12/09/2022 7:27 AM CDT Torrey Lafleur MD LAB - POINT OF CARE ORDERABLES Performing Organization Address [facility] Co de Phone Number [facility] [address] [place] [phone] * (ABNORMAL) HGB HCT PANEL (12/09/2022 3:11 AM CDT) [facility] Hemoglobin 8.3(L) 12.0 - 17.6 gm/dL 12/09/2022 4:21 AM CDT [facility] Hematocrit 23.8(L) 35.2 - 51.7 % 12/09/2022 4:21 AM CDT [facility] Blood BLOOD SPECIMEN / Unknown Lab Venipuncture / Unknown 12/09/2022 3:11 AM CDT 12/09/2022 3:53 AM CDT Torrey Lafleur MD LAB - HEMATOLOGY OR DERABLES Performing Organization Address City/[facility]/ZIP Co de Phone Number [facility] [address] [place] [phone] * (ABNORMAL) GLUCOSE - POINT OF CARE (12/08/2022 9:06 PM CDT) Pathologist [facility] Glucose WB/POC 190(H) 70 - 106 mg/dL 12/08/2022 9:16 PM CDT [facility] Specimen Type Cap Fingerstick 2022 9:16 PM CDT [facility] Blood BLOOD SPECIMEN / Unknown 12/08/2022 9:06 PM CDT 12/08/2022 9:16 PM CDT Torrey Lafleur MD LAB - POINT OF CARE ORDERABLES [facility] [address] [place] [phone] * (ABNORMAL) GLUCOSE - POINT OF CARE (12/08/2022 5:39 PM CDT) [facility] Glucose WB/POC 173(H) 70 - 106 mg/dL 12/08/2022 5:49 PM CDT [facility] Specimen Type Cap Fingerstick 2022 5:49 PM CDT [facility] Blood BLOOD SPECIMEN / Unknown 12/08/2022 5:39 PM CDT 12/08/2022 5:49 PM CDT Torrey Lafleur MD LAB - POINT OF CARE ORDERABLES Performing Organization Address City/[facility]/ZIP Co de Phone Number [facility] [address] [place] [phone] * XR PELVIS 1 OR 2VW (12/08/2022 3:34 PM CDT) Anatomical Region Laterality Modality Pelvis Radiographic Sabi ging 12/08/2022 3:36 PM CDT Narrative 12/08/2022 3:38 PM CDT Procedure: XR PELVIS 1 OR 2VW ??Exam Date: ??12/08/2022 3:35 PM ?? Location: ??[facility] Indication: Z96.641: Presence of right artificial hip joint Findings/impression: Since the prior exam, the previous prosthesis has been removed and there is now a hip prosthesis with long intramedullary component and a fixation cerclage wire. There has also been placement of an acetabular prosthesis. There is air within the joint space and soft tissues consistent with the recent surgery. Surgical ingris are noted laterally. > Interpreting Provider: Viral Peña MD on 12/08/2022 3:38 PM Procedure Note Viral Peña MD - 12/08/2022 Procedure: XR PELVIS 1 OR 2VW Exam Date: 12/08/2022 3:35 PM Location:[facility] Indication: Z96.641: Presence of right artificial hip joint Findings/impression: Since the prior exam, the previous prosthesis has been removed and thereis now a hip prosthesis with long intramedullary component and a fixation cerclage wire. There has also been placement of an acetabularprosthesis. There is air within the joint space and soft tissues consistent with the recent surgery. Surgical ingris are noted laterally. > Interpreting Provider: Viral Peña MD on 12/08/2022 3:38 PM Torrey Lafleur MD DIAGNOSTIC IMAGING ORDERABLES * (ABNORMAL) GLUCOSE - POINT OF CARE (12/08/2022 3:04 PM CDT) Pathologist [facility] Glucose WB/POC 203(H) 70 - 106 mg/dL 12/08/2022 3:14 PM CDT [facility] Specimen Type Cap Fingerstick 2022 3:14 PM CDT [facility] Blood BLOOD SPECIMEN / Unknown 12/08/2022 3:04 PM CDT 12/08/2022 3:14 PM CDT Torrey Lafleur MD LAB - POINT OF CARE ORDERABLES Performing Organization Address City/[facility]/ZIP Co de Phone Number [facility] [address] [place] [phone] * FL ABBIE SURGERY (12/08/2022 2:15 PM CDT) Narrative [facility] RADIOLOGY - 12/08/2022 2:16 PM CDT For details of this study, please see the providers note. Torrey Lafleur MD FLUOROSCOPY ORDERAB LES Performing Organization Address [facility] Co de Phone Number [facility] RADIOLOGY [address] [place] [address] * (ABNORMAL) BLOOD GASES ART + LYTES GLU CA+ HH (ISTAT) (12/08/2022 1:29 PM CDT) [facility] pH Arterial POCT 7.35 7.35 - 7.45 pH 12/13/2022 9:37 AM [facility] pCO2 Arterial 41.6 35 - 45 mm hg 12/13/2022 9:37 AM [facility] pO2 Arterial 300(H) 80 - 100 mm hg 12/13/2022 9:37 AM [facility] HCO3 Arterial POCT 23.2 22 - 26 mmol/L 12/13/2022 9:37 AM [facility] BE Arterial -2 -2 - 2 mmol/L 12/13/2022 9:37 AM [facility] TCO2 Arterial Calc POCT 24 23 - 27 mmol/L 12/13/2022 9:37 AM [facility] O2 Saturation Arterial 100 90 - 100 % 12/13/2022 9:37 AM [facility] Sodium Arterial 135(L) 136 - 145 mmol/L 12/13/2022 9:37 AM [facility] Potassium Arterial 4.1 3.5 - 5.1 mmol/L 12/13/2022 9:37 AM [facility] Calcium Ionized Arterial POCT 1.19 1.12 - 1.32 mmol/L 12/13/2022 9:37 AM [facility] Glucose Arterial POCT 213(H) 74 - 106 mg/dL 12/13/2022 9:37 AM [facility] Hemoglobin Arterial POCT 9.2(L) 12.0 - 17.6 gm/dL 12/13/2022 9:37 AM [facility] Hematocrit Arterial POCT 27.0(L) 35.2 - 51.7 % 12/13/2022 9:37 AM [facility] Site R Radial 12/13/2022 9:37 AM [facility] Sample iSTAT ART 12/13/2022 9:37 AM [facility] Blood, arterial ARTERIAL BLOOD SPECIMEN / Unknown 12/08/2022 1:29 PM CDT 12/13/2022 9:[address] [facility] Torrey Lafleur MD LAB - POINT OF CARE ORDERABLES [facility] [address] [place] [address] * (ABNORMAL) BLOOD GASES ART + LYTES GLU CA+ HH (ISTAT) (12/08/2022 12:32 PM CDT) pH Arterial POCT 7.36 7.35 - 7.45 pH 12/13/2022 9:37 AM [facility] pCO2 Arterial 40.5 35 - 45 mm hg 12/13/2022 9:37 AM [facility] pO2 Arterial 297(H) 80 - 100 mm hg 12/13/2022 9:37 AM [facility] HCO3 Arterial POCT 23.1 22 - 26 mmol/L 12/13/2022 9:37 AM [facility] BE Arterial -2 -2 - 2 mmol/L 12/13/2022 9:37 AM [facility] TCO2 Arterial Calc POCT 24 23 - 27 mmol/L 12/13/2022 9:37 AM [facility] O2 Saturation Arterial 100 90 - 100 % 12/13/2022 9:37 AM [facility] Sodium Arterial 137 136 - 145 mmol/L 12/13/2022 9:37 AM [facility] Potassium Arterial 4.0 3.5 - 5.1 mmol/L 12/13/2022 9:37 AM [facility] Calcium Ionized Arterial POCT 1.20 1.12 - 1.32 mmol/L 12/13/2022 9:37 AM [facility] Glucose Arterial POCT 154(H) 74 - 106 mg/dL 12/13/2022 9:37 AM [facility] Hemoglobin Arterial POCT 10.2(L) 12.0 - 17.6 gm/dL 12/13/2022 9:37 AM [facility] Hematocrit Arterial POCT 30.0(L) 35.2 - 51.7 % 12/13/2022 9:37 AM [facility] Site R Radial 12/13/2022 9:37 AM [facility] Sample iSTAT ART 12/13/2022 9:37 AM [facility] Blood, arterial ARTERIAL BLOOD SPECIMEN / Unknown 12/08/2022 12:32 PM CDT 12/13/2022 9:37 AM CDT Torrey Lafleur MD LAB - POINT OF CARE ORDERABLES Performing Organization Address City/[facility]/ZIP Co de Phone Number [facility] [address] [place] [address] * CULTURE WOUND+GRAM STAIN (12/08/2022 11:24 AM CDT) Culture No growth MONALISA 12/10/2022 10:44 PM CDT [facility] MICROBIOLOG[facility] Gram Stain No organisms seen 023 10:44 PM CDT [facility] MICROBIOLOG[facility] Gram Stain Rare Polymorphonuclear cells 12/10/2022 10:44 PM CDT [facility] NETWORK MICROBIOLOGY Microbiology ENTIRE HIP REGION / Unknown 12/08/2022 11:24 AM CDT 12/08/2022 3:28 PM CDT Comment:Pre-op diagnosis: Diagnosis unknown [R69] Torrey Lafleur MD LAB - MICROBIOLOGY ORDERABLES Performing Organization Address [facility] Co de Phone Number [facility] MICROBIOLOGY [address] [place] [address], [facility] [phone] * CULTURE ANAEROBE (12/08/2022 11:24 AM CDT) Culture No anaerobic organisms isolated MONALISA 12/14/2022 10:51 AM CDT [facility] MICROBIOLOGY Microbiology [place] / Unknown 12/08/2022 11:24 AM CDT 12/08/2022 3:28 PM CDT Comment:Pre-op diagnosis: Diagnosis unknown [R69] Torrey Lafleur MD LAB - MICROBIOLOGY ORDERABLES Performing Organization Address City/[facility] Co de Phone Number [facility] MICROBIOLOGY [address] [place] [address], [facility] [phone] * (ABNORMAL) CBC W AUTO DIFFERENTIAL (12/08/2022 8:35 AM CDT) WBC 6.3 4.4 - 10.7 x10E9/L 12/08/2022 9:30 AM CDT [facility] WBC Corrected 12/08/2022 9:30 AM [facility] RBC 3.78(L) 3.80 - 5.40 x10E12/L 12/08/2022 9:30 AM [facility] Hemoglobin 12.4 12.0 - 17.6 gm/dL 12/08/2022 9:30 AM [facility] Hematocrit 36.2 35.2 - 51.7 % 12/08/2022 9:30 AM [facility] MCV 95.8 80.7 - 98.3 fl 12/08/2022 9:30 AM [facility] MCH 32.8 26.7 - 34.0 pg 12/08/2022 9:30 AM [facility] MCHC 34.3 30.8 - 35.9 gm/dL 12/08/2022 9:30 AM [facility] Platelet Count 130(L) 153 - 416 x10E9/L 12/08/2022 9:30 AM [facility] RDW-CV 13.5 12.1 - 14.9 % 12/08/2022 9:30 AM [facility] MPV 9.7 9.4 - 12.9 fl 12/08/2022 9:30 AM [facility] Neutrophils % 58.6 44.0 - 73.0 % 12/08/2022 9:30 AM [facility] Lymphocytes % 26.6 20.0 - 43.0 % 12/08/2022 9:30 AM [facility] Monocytes % 12.1 5.0 - 13.0 % 12/08/2022 9:30 AM [facility] Eosinophils % 1.6 0.0 - 6.0 % 12/08/2022 9:30 AM [facility] Basophils % 0.5 0.0 - 2.0 % 12/08/2022 9:30 AM [facility] Immature Granulocytes 0.6 0 - 1 % 12/08/2022 9:30 AM [facility] Neutrophil Absolute 3.69 2.01 - 7.14 x10E9/L 12/08/2022 9:30 AM [facility] Lymphocytes Absolute 1.67 1.07 - 3.94 x10E9/L 12/08/2022 9:30 AM CDT [facility] Monocytes Absolute 0.76 0.26 - 1.07 x10E9/L 12/08/2022 9:30 AM CDT [facility] Eosinophils Absolute 0.10 0 - 0.47 x10E9/L 12/08/2022 9:30 AM CDT [facility] Basophils Absolute 0.03 0 - 0.08 x10E9/L 12/08/2022 9:30 AM CDT [facility] Immature Granulocytes Absolute 0.04 0.00 - 0.06 x10E9/L 12/08/2022 9:30 AM CDT [facility] nRBC Auto 0 /100 WBC 12/08/2022 9:30 AM CDT [facility] Blood BLOOD SPECIMEN / Unknown Venipuncture / Unknown 12/08/2022 8:35 AM CDT 12/08/2022 9:11 AM CDT Sunitha Fung MD LAB - HEMATOLOGY ORD ERABLES Performing Organization Address [facility] Co de Phone Number [facility] [address] [place] [phone] * (ABNORMAL) GLUCOSE - POINT OF CARE (12/08/2022 8:33 AM CDT) [facility] Glucose WB/POC 140(H) 70 - 106 mg/dL 12/08/2022 8:43 AM CDT [facility] Specimen Type Cap Fingerstick 2022 8:43 AM CDT [facility] Blood BLOOD SPECIMEN / Unknown 12/08/2022 8:33 AM CDT 12/08/2022 8:43 AM CDT Torrey Lafleur MD LAB - POINT OF CARE ORDERABLES Performing Organization Address [facility] de Phone Number [facility] [address] [place] [phone] documented in this encounter Visit Diagnoses Diagnosis S/P total right hip arthroplasty- Primary Pre-op testing Preoperative examination, unspecified Pain Generalized pain Diagnosis unknown Other unknown and unspecified cause of morbidity or mortality S/P total right hip arthroplasty documented in this encounter Administered Medications Inactive Administered Medications - up to 3 most recent administrations Medication Order MAR Action Action Date Dose Rate Site 0.9% NaCl infusion ADS Med 1 dose, Starting on Sun12/08/22 at 2125, Until Sun12/08/22 at 2134, Created by cabinet override $ New Bag/Syringe 12/08/2022 9:34 PM CDT 250 mL acetaminophen (Tylenol) tablet 1,000 mg 1,000 mg, Oral, ONCE, 1 dose, On Sun12/08/22 at 0815, Patient preference for lesser PRN pain meds may be honored when the patient requests a less strong medication, a lower dose, or a less intrusive route of administration when the lesser drug, dose and route have been ordered for the patient. This patient request must be documented in the MAR., Pre-op $ Given 12/08/2022 8:55 AM CDT 1,000 mg acetaminophen (Tylenol) tablet 650 mg 650 mg, Oral, EVERY 4 HOURS PRN, Mild Pain, Starting on Sun12/08/22 at 1704, Until Sun12/09/22 at 1440, Patient preference for lesser PRN pain meds may be honored when the patient requests a less strong medication, a lower dose, or a less intrusive route of administration when the lesser drug, dose and route have been ordered for the patient. This patient request must be documented in the MAR. $ Given 12/08/2022 5:36 PM CDT 650 mg aspirin chew tablet 81 mg 81 mg, Oral, 2 TIMES DAILY, First dose on Sun12/09/22 at 0900, Until Discontinued $ Given 12/09/2022 8:11 AM CDT 81 mg carvedilol (Coreg) tablet 25 mg 25 mg, Oral, 2 TIMES DAILY, First dose on Sun12/08/22 at 2100, Until Discontinued, Take with food $ Given 12/08/2022 9:16 PM CDT 25 mg ceFAZolin (Ancef) 2 g in 0.9% NaCl IV 50 mL IVPB 2 g, at 100 mL/hr, Intravenous, EVERY 8 HOURS, 2 doses, First dose on Sun12/08/22 at 2000, Last dose on Sun12/09/22 at 0400, Indication for anti-infective therapy: Surgical prophylaxis $ New Bag/Syringe 12/09/2022 4:46 AM CDT 2 g 100 mL/hr $ New Bag/Syringe 12/08/2022 9:36 PM CDT 2 g 100 mL /hr celecoxib (CeleBREX) capsule 200 mg 200 mg, Oral, PRE-OP ONCE, 1 dose, On Sun12/08/22 at 0815, Patient preference for lesser PRN pain meds may be honored when the patient requests a less strong medication, a lower dose, or a less intrusive route of administration when the lesser drug, dose and route have been ordered for the patient. This patient request must be documented in the MAR., Pre-op $ Given 12/08/2022 8:53 AM CDT 200 mg cloNIDine (Catapres) tablet 0.1 mg 0.1 mg, Oral, 2 TIMES DAILY, First dose on Sun12/08/22 at 2100, Until Discontinued $ Given 12/08/2022 9:16 PM CDT 0.1 m g clopidogrel (plaVIX) tablet 75 mg 75 mg, Oral, DAILY, First dose on Sun12/09/22 at 0900, Until Discontinued $ Given 12/09/2022 8:11 AM CDT 75 mg cyclobenzaprine (Flexeril) tablet 10 mg 10 mg, Oral, 2 TIMES DAILY PRN, Muscle Spasms, Starting on Sun12/08/22 at 1726, Until 12/09/22 at 1440 $ Given 12/08/2022 5:36 PM CDT 10 mg dextrose 10 % IV bolus 12.5 g, at 999 mL/hr, Intravenous, PRN, Other, Bedside Glucose less than 70 mg/dL -If NOT able to eat and/or NPO and with IV Access, Starting on Sun12/08/22 at 1704, Until 12/09/22 at 1440, If NOT able to eat and/or NPO [...] NPO and with IV Access, Starting on Sun12/08/22 at 1704, Until 12/09/22 at 1440, If NOT able to eat and/or NPO [...] (Colace) capsule 100 mg 100 mg, Oral, DAILY, First dose on Sun12/08/22 at 1715, Until Discontinued $ Given 12/09/2022 8:04 AM CDT 100 mg $ Given 12/08/2022 5:36 PM CDT 100 mg famotidine (Pepcid) tablet 20 mg 20 mg, Oral, DAILY, First dose on Sun12/08/22 at 1715, Until Discontinued $ Given 12/09/2022 8:04 AM CDT 20 mg $ Given 12/08/2022 5:36 PM CDT 20 mg gentamicin (Garamycin) 400 mg in 0.9% NaCl IV 100 mL IVPB 400 mg, at 200 mL/hr, Intravenous, PRE-OP ONCE, 1 dose, On Sun12/08/22 at 0815, SDS, Indication for anti-infective therapy: Surgical prophylaxis, Pre-op $ New Bag/Syringe 12/08/2022 8:52 AM CDT 400 mg 200 mL/hr hydroCHLOROthiazide (Hydrodiuril) tablet 12.5 mg 12.5 mg, Oral, DAILY, First dose on Sun12/09/22 at 0900, Until Discontinued HYDROmorphone (Dilaudid) injection 0.5 mg 0.5 mg, Intravenous, EVERY 5 MIN PRN, Severe Pain, 4 doses, Starting on Sun12/08/22 at 1448, Until Sun12/08/22 at 1634, Maximum total of 4 doses If patient [...] documented in the MAR., PACU $ Given 12/08/2022 3:26 PM CDT 0.5 mg $ Given 12/08/2022 3:07 PM CDT 0.5 mg insulin aspart (NovoLOG) pen 8 Units 8 Units (rounded from 8.4487 Units = 0.067 Units/kg ? 126.1 kg), Subcutaneous, 3 TIMES DAILY WITH MEALS, First dose on Sun12/08/22 at 1800, Until Discontinued, MEALTIME INSULIN Hold MEALTIME insulin if patient is NPO or eating less than 50% of meals. -OR- if carb intake for the meal is less than 30 grams. May be given immediately before meal, during meal, or immediately after meal is eaten. Meal must be present before administration. Combine mealtime dose and correction insulin dose if needed into one injection. $ Given 12/09/2022 8:05 AM CDT 8 Units Abd Left Upper Quadrant lactated ringers infusion at 20 mL/hr, Intravenous, PRE-OP CONTINUOUS, Starting on Sun12/08/22 at 0815, Until Sun12/08/22 at 1634, Pre-op $ New Bag/Syringe 12/08/2022 2:26 PM CDT $ New Bag/Syringe 12/08/2022 1:24 PM CDT $ New Bag/Syringe 12/08/2022 12:44 PM CDT lidocaine PF (Xylocaine MPF) 1 % injection 0.2 mL 0.2 mL, Infiltration, PRE-OP MULTIPLE, 3 doses, Starting on Sun12/08/22 at 0803, Until Sun12/08/22 at 1634, May be used (0.2 ml locally to anesthetize prior to insertion)., Pre-op $ Given 12/08/2022 8:53 AM CDT 0.2 mL losartan (Cozaar) tablet 100 mg 100 mg, Oral, DAILY, First dose on 12/09/22 at 0900, Until Discontinued morphine injection 2 mg 2 mg, Intravenous, EVERY 2 HOURS PRN, breakthrough pain, Starting on Sun12/08/22 at 1704, Until 12/09/22 at 1440, Patient preference for lesser PRN pain meds may be honored when the patient requests a less strong medication, a lower dose, or a less intrusive route of administration when the lesser drug, dose and route have been ordered for the patient. This patient request must be documented in the MAR. $ Given 12/09/2022 4:46 AM CDT 2 mg $ Given 12/09/2022 12:56 AM CDT 2 mg $ Given 12/08/2022 8:59 PM CDT 2 mg oxyCODONE (immediate release) (Roxicodone) tablet 10 mg 10 mg, Oral, EVERY 4 HOURS PRN, Severe Pain, Starting on Sun12/08/22 at 1704, Until 12/09/22 at 1440, Patient preference for lesser PRN pain meds may be honored when the patient requests a less strong medication, a lower dose, or a less intrusive route of administration when the lesser drug, dose and route have been ordered for the patient. This patient request must be documented in the MAR. $ Given 12/09/2022 12:04 PM CDT 10 m g $ Given 12/09/2022 8:03 AM CDT 10 mg $ Given 12/09/2022 2:08 AM CDT 10 mg oxyCODONE (immediate release) (Roxicodone) tablet 5 mg 5 mg, Oral, EVERY 4 HOURS PRN, Moderate Pain, Starting on Sun12/08/22 at 1614, Until 12/09/22 at 1440, Patient preference for lesser PRN pain meds may be honored when the patient requests a less strong medication, a lower dose, or a less intrusive route of administration when the lesser drug, dose and route have been ordered for the patient. This patient request must be documented in the MAR. $ Given 12/08/2022 4:16 PM CDT 5 mg polyethylene glycol 3350 (Miralax) packet 17 g 17 g, Oral, DAILY, First dose on Sun12/08/22 at 1715, Until Discontinued, Mix in 8 ounces of water, juice, soda, coffee or tea prior to administration $ Given 12/09/2022 8:05 AM CDT 17 g pregabalin (Lyrica) capsule 50 mg 50 mg, Oral, 2 TIMES DAILY, First dose on Sun12/08/22 at 2100, Until Discontinued $ Given 12/09/2022 8:04 AM CDT 50 mg $ Given 12/08/2022 9:16 PM CDT 50 mg rosuvastatin (Crestor) tablet 40 mg 40 mg, Oral, EVERY MORNING, First dose on Sun12/08/22 at 2100, Until Discontinued $ Given 12/09/2022 6:01 AM CDT 40 mg $ Given 12/08/2022 9:16 PM CDT 40 mg sertraline (Zoloft) tablet 50 mg 50 mg, Oral, DAILY, First dose on Sun12/08/22 at 1800, Until Discontinued, Avoid concurrent administration with grapefruit juice $ Given 12/09/2022 8:04 AM CDT 50 mg $ Given 12/08/2022 9:16 PM CDT 50 mg documented in this encounter Active and Recently Administered Medications Times are shown in CDT. Scheduled Medication Order 12/07/2022 12/08/2022 12/09/2022 acetaminophen (Tylenol) tablet 1,000 mg (COMPLETED) 1,000 mg, Oral, ONCE, 1 dose, On Sun12/08/22 at 0815, Patient preference for lesser PRN pain meds may be honored when the patient requests a less strong medication, a lower dose, or a less intrusive route of administration when the lesser drug, dose and route have been ordered for the patient. This patient request must be documented in the MAR., Pre-op 0855 ($ Given - Provider: Crystal Pineda RN) amLODIPine (Norvasc) tablet 5 mg 5 mg, Oral, DAILY, First dose on 12/09/22 at 0900, Until Discontinued 08 (Not Administer ed - Provider: Rubia Stevens RN - Reason: Patient Condition - Comment: bp 90/54) aspirin chew tablet 81 mg 81 mg, Oral, 2 TIMES DAILY, First dose on Sun12/09/22 at 0900, Until Discontinued 08 ($ Given - Provider: Rubia Stevens, ANA) carvedilol (Coreg) tablet 25 mg 25 mg, Oral, 2 TIMES DAILY, First dose on Sun12/08/22 at 2100, Until Discontinued, Take with food 2115 ($ Given - Provider: Black Taveras RN) 0804 (Not Administered - Provider: Rubia Stevens RN - Reason: Patient Condition - Comment: bp 90/54) ceFAZolin (Ancef) 2 g in 0.9% NaCl IV 50 mL IVPB (COMPLETED) 2 g, at 100 mL/hr, Intravenous, EVERY 8 HOURS, 2 doses, First dose on Sun12/08/22 at 2000, Last dose on Sun12/09/22 at 0400, Indication for anti-infective therapy: Surgical prophylaxis 2136 ($ New Bag/Syringe - Provider: Black Taveras RN)2219 (Stopped - Provider: Black Taveras RN) 0446 ($ New Bag/Syringe - Provider: Black Taveras RN)0519 (Stopped - Provider: Black Taveras RN) ceFAZolin (Ancef) 3,000 mg in 115 mL IVPB (COMPLETED) 3,000 mg (3 g), at 230 mL/hr, Intravenous, PRE-OP ONCE, 1 dose, On Sun12/08/22 at 0815, Refrigerate, Indication for anti-infective therapy: Surgical prophylaxis, Pre-op 1025 ($ Given - Provider: FERN Medina)1331 ($ Given - Provider: FERN Medina - Comment: per surgeon request) celecoxib (CeleBREX) capsule 200 mg (COMPLETED) 200 mg, Oral, PRE-OP ONCE, 1 dose, On Sun12/08/22 at 0815, Patient preference for lesser PRN pain meds may be honored when the patient requests a less strong medication, a lower dose, or a less intrusive route of administration when the lesser drug, dose and route have been ordered for the patient. This patient request must be documented in the MAR., Pre-op 0853 ($ Given - Provider: Crystal Pineda RN) cloNIDine (Catapres) tablet 0.1 mg 0.1 mg, Oral, 2 TIMES DAILY, First dose on Sun12/08/22 at 2100, Until Discontinued 2115 ($ Given - Provider: Black Taveras RN) 0804 (Not Administered - Provider: Rubia Stevens RN - Reason: Patient Condition - Comment: bp 90/54) clopidogrel (plaVIX) tablet 75 mg 75 mg, Oral, DAILY, First dose on Sun12/09/22 at 0900, Until Discontinued 08 ($ Given - Provider: Rubia Stevens, ANA) docusate sodium (Colace) capsule 100 mg 100 mg, Oral, DAILY, First dose on Sun12/08/22 at 1715, Until Discontinued 173 ($ Given - Provider: Rubia Stevens, ANA) 0804 ($ Given - Provider: Rubia Stevens, ANA) famotidine (Pepcid) tablet 20 mg 20 mg, Oral, DAILY, First dose on Sun12/08/22 at 1715, Until Discontinued 173 ($ Given - Provider: Rubia Stevens RN) 0804 ($ Given - Provider: Rubia Stevens, ANA) gentamicin (Garamycin) 400 mg in 0.9% NaCl IV 100 mL IVPB (COMPLETED) 400 mg, at 200 mL/hr, Intravenous, PRE-OP ONCE, 1 dose, On Sun12/08/22 at 0815, SDS, Indication for anti-infective therapy: Surgical prophylaxis, Pre-op 0852 ($ New Bag/Syringe - Provider: Crystal Pineda RN)1636 (Stopped - Provider: Rubia Stevens RN) hydroCHLOROthiazide (Hydrodiuril) tablet 12.5 mg(Linked Group 1) 12.5 mg, Oral, DAILY, First dose on Sun12/09/22 at 0900, Until Discontinued 805 (Not Administer ed - Provider: Rubia Stevens RN - Reason: Patient Condition - Comment: bp 90/54) insulin aspart (NovoLOG) pen 0-4 Units 0-4 Units, Subcutaneous, AT BEDTIME, First dose on Sun12/08/22 at 2100, Until Discontinued, Low Dose: Bedtime Correction Insulin Bedside glucose should be done within 30-60 minutes of correction insulin administration. BG (mg/dL) Corrective Action LESS than 70 follow Hypoglycemic guidelines, 71-220 NO bedtime correction insulin 221-260 GIVE 1 unit of insulin 261-300 GIVE 2 units of insulin 301-350 GIVE 3 units of insulin Greater than 350 GIVE 4 units of insulin and notify physician 2106 (Not Administered - Provider: Black Taveras RN - Reason: Per Administration Instructions) insulin aspart (NovoLOG) pen 0-6 Units 0-6 Units, Subcutaneous, 3 TIMES DAILY WITH MEALS, First dose on Sun12/08/22 at 1800, Until Discontinued, Low Dose: Correction Insulin Bedside glucose should be done within 30-60 minutes of correction insulin administration. BG (mg/dL) Corrective Action LESS than 70: follow Hypoglycemic guidelines, 70-180: NO Correction insulin, 181-220: GIVE 2 units of insulin, 221-260: GIVE 3 units of insulin, 261-300: GIVE 4 units of insulin, 301-350: GIVE 5 units of insulin, Greater than 350: GIVE 6 units of insulin and notify physician. If the patient is NPO: DO NOT HOLD correction insulin If patient is eating meals and has orders for Mealtime insulin, combine and give at the same time. 1742 (Not Administered - Provider: Rubia Stevens RN - Reason: Per Administration Instructions - Comment: 173) 0730 (Not Administered - Provider: Rubia Stevens RN - Reason: Per Administration Instructions)1200 (Not Administered - Provider: Rubia Stevens RN - Reason: Per Administration Instructions) insulin aspart (NovoLOG) pen 8 Units 8 Units (rounded from 8.4487 Units = 0.067 Units/kg ? 126.1 kg), Subcutaneous, 3 TIMES DAILY WITH MEALS, First dose on Sun12/08/22 at 1800, Until Discontinued, MEALTIME INSULIN Hold MEALTIME insulin if patient is NPO or eating less than 50% of meals. -OR- if carb intake for the meal is less than 30 grams. May be given immediately before meal, during meal, or immediately after meal is eaten. Meal must be present before administration. Combine mealtime dose and correction insulin dose if needed into one injection. 1839 (Not Administered - Provider: Rubia Stevens RN - Reason: See Comments - Comment: PT SLEEPING ON AND OFF. DID NOT EAT MORE THAN HALF) 0805 ($ Given - Provider: Rubia Stevens RN)1200 (Not Administered - Provider: Rubia Stevens RN - Reason: See Comments - Comment: pt being d/chel. not eating lunch) lidocaine PF (Xylocaine MPF) 1 % injection 0.2 mL (CANCELED) 0.2 mL, Infiltration, PRE-OP MULTIPLE, 3 doses, Starting on Sun12/08/22 at 0803, Until Sun12/08/22 at 1634, May be used (0.2 ml locally to anesthetize prior to insertion)., Pre-op 0853 ($ Given - Provider: Crystal Pineda RN) losartan (Cozaar) tablet 100 mg(Linked Group 1) 100 mg, Oral, DAILY, First dose on Sun12/09/22 at 0900, Until Discontinued 805 (Not Administer ed - Provider: Rubia Stevens RN - Reason: Patient Condition - Comment: bp 90/54) magnesium sulfate 4 g in 100 mL bolus (COMPLETED) 4 g, at 300 mL/hr, Administer over 20 Minutes, PRE-OP ONCE, 1 dose, On Sun12/08/22 at 0815, MAXIMUM rate 2g/10min 1100 ($ Given - Provider: Roxanne Oliver APRN-HUMAN RESOURCES DIRECTOR) polyethylene glycol 3350 (Miralax) packet 17 g 17 g, Oral, DAILY, First dose on Sun12/08/22 at 1715, Until Discontinued, Mix in 8 ounces of water, juice, soda, coffee or tea prior to administration 1736 (Not Administered - Provider: Rubia Stevens RN - Reason: Refused-Patient) 08 ($ Given - Provider: Rubia Stevens RN) pregabalin (Lyrica) capsule 50 mg 50 mg, Oral, 2 TIMES DAILY, First dose on Sun12/08/22 at 2100, Until Discontinued 2115 ($ Given - Provider: Black Taveras RN) 08 ($ Given - Provider: Rubia Stevens RN) rosuvastatin (Crestor) tablet 40 mg 40 mg, Oral, EVERY MORNING, First dose on Sun12/08/22 at 2100, Until Discontinued 2115 ($ Given - Provider: Black Taveras RN) 06 ($ Given - Provider: Black Taveras RN) sertraline (Zoloft) tablet 50 mg 50 mg, Oral, DAILY, First dose on Sun12/08/22 at 1800, Until Discontinued, Avoid concurrent administration with grapefruit juice 2115 ($ Given - Provider: Black Taveras RN) 08 ($ Given - Provider: Rubia Stevens RN) tranexamic acid (Cyklokapron) 1,000 mg in 0.9% NaCl IV 110 mL bolus (COMPLETED) 1,000 mg, at 220 mL/hr, Intravenous, ONCE, 1 dose, On Sun12/08/22 at 0815, Give 1 gram of TXA prior to surgical incision, give the remaining 1 gram of TXA during closure of the surgical wound or two hours after the first dose, whichever occurs first. Do not inject more rapidly than 1 mL/min to avoid hypotension., Pre-op 1047 ($ New Bag/Syringe - Provider: FERN Medina) tranexamic acid (Cyklokapron) 1,000 mg in 0.9% NaCl IV 110 mL bolus (COMPLETED) 1,000 mg, at 220 mL/hr, Intravenous, ONCE, 1 dose, On Sun12/08/22 at 0815, Give 1 gram of TXA prior to surgical incision, give the remaining 1 gram of TXA during closure of the surgical wound or two hours after the first dose, whichever occurs first. Do not inject more rapidly than 1 mL/min to avoid hypotension., Pre-op 1329 ($ New Bag/Syringe - Provider: FERN Medina - Comment: per surgeon request) vancomycin (Vancocin) 1,000 mg in 0.9% NaCl IV 250 mL IVPB (COMPLETED) 1,000 mg, at 250 mL/hr, Intravenous, PRE-OP ONCE, 1 dose, On Sun12/08/22 at 1000, Indication for anti-infective therapy: Surgical prophylaxis 1103 ($ New Bag/Syringe - Provider: FERN Medina) Continuous Medication Order 12/07/2022 12/08/2022 12/09/2022 lactated ringers infusion (CANCELED) at 20 mL/hr, Intravenous, PRE-OP CONTINUOUS, Starting on Sun12/08/22 at 0815, Until Sun12/08/22 at 1634, Pre-op 0855 ($ New Bag/Syringe - Provider: Crystal Pineda RN)1033 (Paused - Provider: FERN Medina - Comment: Switch to gravity)1034 (Restarted - Provider: FERN Medina)1148 ($ New Bag/Syringe - Provider: FERN Medina)1244 ($ New Bag/Syringe - Provider: FERN Medina)1324 ($ New Bag/Syringe - Provider: Roxanne A Oliver, DECISION SCIENCE ANALYST-HUMAN RESOURCES DIRECTOR)1426 ($ New Bag/Syringe - Provider: FERN Medina) PRN Medication Order 12/07/2022 12/08/2022 12/09/2022 0.9% NaCl irrigation 1,000 mL with povidone-iodine (Betadine) 35 mL irrigation (CANCELED) PRN, Starting on Sun12/08/22 at 1230, Until Sun12/08/22 at 1449, Intra-op 1230 ($ Given - Provider: Torrey Lafleur MD)1357 ($ Given - Provider: Torrey Lafleur MD) acetaminophen (Tylenol) tablet 650 mg 650 mg, Oral, EVERY 4 HOURS PRN, Mild Pain, Starting on Sun12/08/22 at 1704, Until 12/09/22 at 1440, Patient preference for lesser PRN pain meds may be honored when the patient requests a less strong medication, a lower dose, or a less intrusive route of administration when the lesser drug, dose and route have been ordered for the patient. This patient request must be documented in the OCT. 1735 ($ Given - Provider: Rubia Stevens, ANA) cyclobenzaprine (Flexeril) tablet 10 mg 10 mg, Oral, 2 TIMES DAILY PRN, Muscle Spasms, Starting on Sun12/08/22 at 1726, Until 12/09/22 at 1440 1736 ($ Given - Provider: Rubia Stevens, RN) dextrose 10 % IV bolus(Linked Group 2) 12.5 g, at 999 mL/hr, Intravenous, PRN, Other, Bedside Glucose less than 70 mg/dL -If NOT able to eat and/or NPO and with IV Access, Starting on Sun12/08/22 at 1704, Until 12/09/22 at 1440, If NOT able to eat and/or NPO [...] IV bolus(Linked Group 2) 25 g, at 999 mL/hr, Intravenous, PRN, Other, Bedside Glucose less than 70 mg/dL -If NOT able to eat and/or NPO and with IV Access, Starting on Sun12/08/22 at 1704, Until 12/09/22 at 1440, If NOT able to eat and/or NPO [...] NPO and withOUT IV Access, Starting on Sun12/08/22 at 1704, Until 12/09/22 at 1440, If NOT able to eat and/or NPO and NO IV Access: For Bedside glucose 54-69 mg/dL - Give 1 mg SQ For Bedside Glucose LESS than 54 mg/dl - verify with a second bedside glucose (from a different site) - Give 1 mg SQ Re-check and Re-treat blood glucose EVERY 10-25 [...] does not have swallowing difficulties, Starting on Sun12/08/22 at 1704, Until 12/09/22 at 1440, If able to eat and is better [...] PROVIDER OF HYPOGLYCEMIC EVENT. HYDROmorphone (Dilaudid) injection 0.5 mg (CANCELED) 0.5 mg, Intravenous, EVERY 5 MIN PRN, Severe Pain, 4 doses, Starting on Sun12/08/22 at 1448, Until Sun12/08/22 at 1634, Maximum total of 4 doses If patient [...] must be documented in the MAR., PACU 1507 ($ Given - Provider: Lea Martin RN)1526 ($ Given - Provider: Lea Martin RN) morphine injection 2 mg 2 mg, Intravenous, EVERY 2 HOURS PRN, breakthrough pain, Starting on Sun12/08/22 at 1704, Until 12/09/22 at 1440, Patient preference for lesser PRN pain meds may be honored when the patient requests a less strong medication, a lower dose, or a less intrusive route of administration when the lesser drug, dose and route have been ordered for the patient. This patient request must be documented in the MAR. 2058 ($ Given - Provider: Black Taveras RN) 0056 ($ Given - Provider: Black Taveras RN)0446 ($ Given - Provider: Black Taveras RN) oxyCODONE (immediate release) (Roxicodone) tablet 10 mg 10 mg, Oral, EVERY 4 HOURS PRN, Severe Pain, Starting on Sun12/08/22 at 1704, Until 12/09/22 at 1440, Patient preference for lesser PRN pain meds may be honored when the patient requests a less strong medication, a lower dose, or a less intrusive route of administration when the lesser drug, dose and route have been ordered for the patient. This patient request must be documented in the MAR. 2219 ($ Given - Provider: Black Taveras RN) 0208 ($ Given - Provider: Black Taveras RN)0803 ($ Given - Provider: Rubia Stevens, RN)1204 ($ Given - Provider: Rubia Stevens, ANA) oxyCODONE (immediate release) (Roxicodone) tablet 5 mg 5 mg, Oral, EVERY 4 HOURS PRN, Moderate Pain, Starting on Sun12/08/22 at 1614, Until 12/09/22 at 1440, Patient preference for lesser PRN pain meds may be honored when the patient requests a less strong medication, a lower dose, or a less intrusive route of administration when the lesser drug, dose and route have been ordered for the patient. This patient request must be documented in the MAR. 1616 ($ Given - Provider: Lea Martin RN) vancomycin (Vancocin) 1 g in 0.9% NaCl irrigation 3,000 mL irrigation (CANCELED) PRN, Starting on Sun12/08/22 at 1259, Until Sun12/08/22 at 1449, Intra-op 1259 ($ Given - Provider: Torrey Lafleur MD) vancomycin (Vancocin) injection (CANCELED) PRN, Starting on Sun12/08/22 at 1417, Until Sun12/08/22 at 1449, Intra-op 1417 ($ Given - Provider: Torrey Lafleur MD - Comment: Sprinkled on incision site.) No Frequency Medication Order 12/07/2022 12/08/2022 12/09/2022 0.9% NaCl infusion ADS Med (COMPLETED) 1 dose, Starting on Sun12/08/22 at 2125, Until Sun12/08/22 at 2134, Created by cabinet override 2133 ($ New Bag/Syringe - Provider: Black Taveras RN) Linked Groups Order Group 1: losartan (Cozaar) tablet 100 mgJump to med 100 mg, Oral, DAILY, First dose on 12/09/22 at 0900, Until Discontinued And hydroCHLOROthiazide (Hydrodiuril) tablet 12.5 mgJump to med 12.5 mg, Oral, DAILY, First dose on Sun12/09/22 at 0900, Until Discontinued Group 2: dextrose 10 % IV bolusJump to med 12.5 g, at 999 mL/hr, Intravenous, PRN, Other, Bedside Glucose less than 70 mg/dL -If NOT able to eat and/or NPO and with IV Access, Starting on Sun12/08/22 at 1704, Until 12/09/22 at 1440, If NOT able to eat and/or NPO [...] NPO and with IV Access, Starting on Sun12/08/22 at 1704, Until 12/09/22 at 1440, If NOT able to eat and/or NPO [...] EVENT. documented in this encounter Care Teams [employer] Functional Analyst Relationship Specialty Start Date End Date Faisal Richardson DO [address] [place], [place] [id number] PCP - General Family Medicine 11/27/22 documented as of this encounter
--- OUTSIDE RECORDS SUMMARY | 2024-07-28 01:00 | XMS_ITS | Encounter Summary ---
Author Organization [facility] Address [address] 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 Role Phone Shiv Meehan MD Unavailable Unavailabl e Brandie Jensen APRN, [facility] WINDER-C Unavailable Noé Crowley MD Unavailable [phone] Jasper Figueroa MD Unavailable Torrey Lafleur MD Unavailable [phone] Faisal Richardson DO Primary Care Provider [phone] Reason for Visit * Imaging (Routine) - Closed Specialty Diagnoses / Procedures Referred By Contac t Referred To Contact RADIOLOGY Diagnoses Essential hypertension Nonrheumatic aortic valve stenosis LVH (left ventricular hypertrophy) Procedures USE ECHOCARDIOGRAM W CON USE ECHOCARDIOGRAM Brandie Jensen APRN, [facility]INDER-C [address] [facility] [facility] [place] [address] Phone: tel: fax: Referral ID Status Reason Start Date Expiration Date Visits Re quested Visits Authorized [id number] Closed 07/16/2023 08/15/2024 1 1 Encounter Details Date Type Department Care Team (Latest Contact Info) Description 12/11/2023 7:41 AM CDT - 12/11/2023 11:59 PM CDT Hospital Encounter [facility] [address] [place] [address] Brandie Jensen, DEPENDENCY DIRECTOR, [facility] [address] [facility] [address] [place] [address] Discharge Disposition: Home or Self Care (Routine Discharge) Social History Tobacco Use Types Packs/Day Years Used Date Smoking Tobacco: Never Smokeless Tobacco: Never Sex and Gender Information Value Date Recorded Sex Assigned at Not on file Legal Sex Male 1:42 PM CDT Gender Identity Not on file Sexual Orientation Not on file Occupation Industry Job Start Date Job End Date retired Not on file Not on file Not on file documented as of this encounter Medications at Time of Discharge Acetaminophen 500 MG Cap Take 1,000 mg by mouth as needed. 05/03/2022 amLODIPine (NORVASC) 10 MG tablet Take 1 tablet (10 mg total) by mouth daily. 90 tablet 3 07/16/2023 betamethasone dipropionate 0.05 % ointment as needed. 10/10/2021 buPROPion XL (WELLBUTRIN XL) 300 MG 24 hr tablet Take 1 tablet (300 mg total) by mouth every morning. 08/30/2023 calcipotriene (DOVONOX) 0.005 % ointment 04/04/2023 CARVEDILOL 25 MG tablet TAKE ONE TABLET BY MOUTH TWICE A DAY 180 tablet 1 09/28/2021 cloNIDine (CATAPRES) 0.1 MG tablet Take 1 tablet (0.1 mg total) by mouth 2 (two) times daily. 10/28/2023 clopidogrel (PLAVIX) 75 MG tablet Take 1 tablet (75 mg total) by mouth daily. 03/05/2022 cyclobenzaprine 10 MG tablet Take 1 tablet (10 mg total) by mouth 2 (two) times a day. ferrous sulfate, 65 mg elemental, 325 (65 FE) MG tablet Take 1 tablet (325 mg total) by mouth 2 (two) times a day. Losartan Potassium-HCTZ 100-12.5 MG Tab Take 1 tablet by mouth daily. 11/12/2017 metFORMIN 1000 MG tablet Take 1 tablet (1,000 mg total) by mouth 2 (two) times daily with meals. 11/12/2017 Multiple Vitamins-Minerals (EQ COMPLETE MULTIVITAMIN-ADULT ) Tab Take 1 tablet by mouth daily. 08/06/2022 pantoprazole EC (PROTONIX) 40 MG tablet Take 1 tablet (40 mg total) by mouth daily. 06/26/2023 probiotic (FLORAJEN3) Cap capsule Take 1 capsule by mouth daily with breakfast. 08/06/2022 rosuvastatin (CRESTOR) 40 MG tablet Take 1 tablet (40 mg total) by mouth daily. 06/26/2023 sertraline (ZOLOFT) 100 MG tablet Take 1 tablet (100 mg total) by mouth daily. 06/26/2023 TRULICITY 3 MG/0.5ML injection Inject 3 mg into the skin once a week. 07/04/2023 documented as of this encounter Plan of Treatment Upcoming Encounters Date Type Department Care Team ([facility] st Contact Info) Description 12/11/2024 2:00 PM CDT Office Visit [facility] eld [address] [place] [phone] Brandie Jensen, DEPENDENCY DIRECTOR, [facility] WINDER-C [address] [facility] [address] [place] [address] documented as of this encounter Procedures Procedure Name Priority Date/Time Associated Diagnosis Comments USE ECHOCARDIOGRAM W CON Routine 12/11/2023 8:38 AM CDT Essential hypertension Nonrheumatic aortic valve stenosis LVH (left ventricular hypertrophy) documented in this encounter Results * USE ECHOCARDIOGRAM W CON (12/11/2023 8:38 AM CDT) Anatomical Region Laterality Modality NA Echocardiogram 12/11/2023 7:57 AM CDT Narrative 12/11/2023 9:42 AM CDT ?Echocardiography Report Pat.Name: ??JOSE RUTLEDGE ?Pat.ID: ?[id number] ? St.Date: ?? 12/11/2023 ? Refer.MD: ??[id number] JACQUIE Zayas ? EWDPROV ?EWDPROV Exam Time: 7:57:00 AM ?Study Type:ECHO W/CONTRAST COMPLETE Height: ?72 in ? Weight: ?281 lb ? BSA: ? 2.46 m2 ?Age: ??1965,58Y ? Sex: ? M ? Sonogrphr: Ray Power RCS ? Pat. Stat.:Outpatient ?CPT - 4: ?C8929 ? Reason for Study: ? Procedures: 2D, M-mode, Doppler, Color Flow, Definity was used to enhance endocardial definition. There is no Previous Study. The study quality is technically adequate. Race: ?W ? ++++++++++++++++++++++++++++++++++++ SUMMARY: ++++++++++++++++++++++++++++++++++++ Moderate concentric left ventricular hypertrophy. ??The left ventricular systolic function is normal. ??Wall motion appears normal in all segments. ??The calculated ejection fraction is 66%. The right ventricular size is normal. Right ventricular systolic function is normal. Moderate calcific aortic valve stenosis ??with a peak gradient of 47 mmHg (mean gradient 28 mmHg). ??No evidence of aortic regurgitation. Unable to reliably quantitate pulmonary systolic pressure. ++++++++++++++++++++++++++++++++++++ FINDINGS: ++++++++++++++++++++++++++++++++++++ LV: ? The left ventricular size is normal. The left ventricular ?systolic function is normal. The calculated ejection ?fraction is 66%. Moderate concentric left ventricular ?hypertrophy. The septal E/e' is indeterminate at 8-15. The ?lateral E/e' is normal at <8. The average E/e' is ?indeterminate at 9-12 and EF is > or equal to 50. WM: ? Wall motion appears normal in all segments. RV: ? The right ventricular size is normal. Right ventricular ?systolic function is normal. TAPSE = 24mm (<16 mm indicates ?systolic RV dysfunction). LA: ? The left atrial size is normal. The left atrial volume is ?normal ( less than 34 ml/M2). RA: ? Right atrial size is normal. IAS: ?Atrial septum appears intact. YOANDY: ? No evidence of pericardial effusion. AO: ? The proximal ascending aorta measures 3.5cm. PA: ? Estimated right atrial pressure of 3 mmHg. Unable to ?reliably quantitate pulmonary systolic pressure. SVn: ?Inferior vena cava shows >50% collapse with respiration ?consistent with normal right atrial pressure. AV: ? Moderate aortic valve stenosis. The peak velocity across the ?aortic valve measures 3.4m/sec with a peak gradient of ?47mmHg and a mean gradient of 28mmHg. The calculated aortic ?valve area is 1.1cm2. No evidence of aortic regurgitation. ?Moderate to severe thickening of aortic valve leaflets. ?Dimensionless index of 0.3. MV: ? No evidence of mitral regurgitation. No evidence of mitral ?stenosis. PV: ? Trace pulmonic regurgitation. No evidence of pulmonic valve ?stenosis. TV: ? A trace of tricuspid regurgitation. No evidence of tricuspid ?valve stenosis. ++++++++++++++++++++++++++++++++++++ MEASUREMENTS: ++++++++++++++++++++++++++++++++++++ ?2D Left Ventricle ?? LVIDd ? 5.09 cm ?? (3.6-5.2) LV EF(Bi-Plane) ??66.5 % ?(63-77) LVIDs ? 2.97 cm ?? (2.3-3.9) LVPW ?? LVPWd ? 1.38 cm ? Ventricular Septum ?? IVSd ?1.82 cm ? Aorta ?? Ao Rtd ? 3.5 cm ? Ao Asc ? 3.5 cm ?? (2.1-3.4)* LVOT ?? LVOT ? 2.3 cm ? Ratios ?? IVS LA Biplane LAVol I BP ?28 ml/m2 ? Right Ventricle ?? Right Ventricle ??3.54 cm ?MMODE TA ?? Tricuspid Annul ??2.44 cm ?DOPPLER LVOT ?? LVOTpkPG ? 4 mmHg ?LVOTmnPG ? 2 mmHg LVOTpkVel ? 96.6 cm/s (70-110) LVOT SV ? 92 ml ?? LVOT TVI ?22.1 cm ? AV Forward Flow AV TVI ?80.7 cm ?AV pkPG ? 47 mmHg AV pkVel ? 344 cm/s (100-170)* Area (TVI) ?1.14 cm2 ??(3-5)* AV mnVel ? 251 cm/s ?Area (Ted) ?1.17 cm2 ??(3-5)* AV mnPG ? 28 mmHg ? MV Forward Flow MV DeTm ?248 msec ?MV pkPG ?2 mmHg MVA P1/2t ? 2.72 cm2 ??(4-6)* ?? MV E/A ? 1.3 ? MV P1/2t ?81 msec (30-60)+* MV pkE ?67.3 cm/s (60-130) MV mnPG ?1 mmHg ?MV pkA ?50.1 cm/s PV Forward Flow PV pkVel ? 110 cm/s (60-90)* PV pkPG ?5 mmHg Lat E' ?? Lat e ? 8.05 cm/s ? Lat E/E' ?? Lat E/e ?8.4 ? Med E' ?? Med e ? 7.83 cm/s ? Med E/E' ?? Med E/e ?8.6 ? Aortic Valve ?? Aortic Valve Ar ??0.46 ?Aortic Valve Ve ??0.28 ? AV DI ?? Value ?0.3 ? JAYLAN (VTI) Index ?? Value ? 0.46 ? LV Mass 2D ?? Value ?365 g ? LV Mass Aiqyp1W ?? Value ?148 g/m2 ? <Electronic Signature> 12/11/2023 09:42 AM Shiv Meehan M.D. Procedure Note Shiv Meehan MD - 12/12/2023 Echocardiography Report Pat.Name: TIOJOSE Pat.ID: [id number] .Date: 12/11/2023 Refer.: [id number] JACQUIE Zayas EWDPROV EWDPROV Exam Time: 7:57:00 AM Study Type:ECHO W/CONTRAST COMPLETE Height: 72 in Weight: 281 lb BSA: 2.46 m2 Age: 9 1965,58Y Sex: M Sonogrphr: Ray Power Pat. Stat.:Outpatient CPT - 4: C8929 Reason for Study: Procedures: 2D, M-mode, Doppler, Color Flow, Definity was used to enhance endocardial definition. There is no Previous Study. The study quality is technically adequate. Race: W ++++++++++++++++++++++++++++++++++++ SUMMARY: ++++++++++++++++++++++++++++++++++++ Moderate concentric left ventricular hypertrophy. The left ventricular systolic function is normal. Wall motion appears normal in all segments. The calculated ejection fraction is 66%. The right ventricular size is normal. Right ventricular systolic function is normal. Moderate calcific aortic valve stenosis with a peak gradient of 47 mmHg (mean gradient 28 mmHg). No evidence of aortic regurgitation. Unable to reliably quantitate pulmonary systolic pressure. ++++++++++++++++++++++++++++++++++++ FINDINGS: ++++++++++++++++++++++++++++++++++++ LV: The left ventricular size is normal. The left ventricular systolic function is normal. The calculated ejection fraction is 66%. Moderate concentric left ventricular hypertrophy. The septal E/e' is indeterminate at 8-15. The lateral E/e' is normal at <8. The average E/e' is indeterminate at 9-12 and EF is > or equal to 50. WM: Wall motion appears normal in all segments. RV: The right ventricular size is normal. Right ventricular systolic function is normal. TAPSE = 24mm (<16 mm indicates systolic RV dysfunction). LA: The left atrial size is normal. The left atrial volume is normal ( less than 34 ml/M2). RA: Right atrial size is normal. IAS: Atrial septum appears intact. YOANDY: No evidence of pericardial effusion. AO: The proximal ascending aorta measures 3.5cm. PA: Estimated right atrial pressure of 3 mmHg. Unable to reliably quantitate pulmonary systolic pressure. SVn: Inferior vena cava shows >50% collapse with respiration consistent with normal right atrial pressure. AV: Moderate aortic valve stenosis. The peak velocity across the aortic valve measures 3.4m/sec with a peak gradient of 47mmHg and a mean gradient of 28mmHg. The calculated aortic valve area is 1.1cm2. No evidence of aortic regurgitation. Moderate to severe thickening of aortic valve leaflets. Dimensionless index of 0.3. MV: No evidence of mitral regurgitation. No evidence of mitral stenosis. PV: Trace pulmonic regurgitation. No evidence of pulmonic valve stenosis. TV: A trace of tricuspid regurgitation. No evidence of tricuspid valve stenosis. ++++++++++++++++++++++++++++++++++++ MEASUREMENTS: ++++++++++++++++++++++++++++++++++++ 2D Left Ventricle LVIDd 5.09 cm (3.6-5.2) LV EF(Bi-Plane) 66.5 % (63-77) LVIDs 2.97 cm (2.3-3.9) LVPW LVPWd 1.38 cm Ventricular Septum IVSd 1.82 cm Aorta Ao Rtd 3.5 cm Ao Asc 3.5 cm (2.1-3.4)* LVOT LVOT 2.3 cm Ratios IVS LA Biplane LAVol I BP 28 ml/m2 Right Ventricle Right Ventricle 3.54 cm MMODE TA Tricuspid Annul 2.44 cm DOPPLER LVOT LVOTpkPG 4 mmHg LVOTmnPG 2 mmHg LVOTpkVel 96.6 cm/s (70-110) LVOT SV 92 ml LVOT TVI 22.1 cm AV Forward Flow AV TVI 80.7 cm AV pkPG 47 mmHg AV pkVel 344 cm/s (100-170)* Area (TVI) 1.14 cm2 (3-5)* AV mnVel 251 cm/s Area (Ted) 1.17 cm2 (3-5)* AV mnPG 28 mmHg MV Forward Flow MV DeTm 248 msec MV pkPG 2 mmHg MVA P1/2t 2.72 cm2 (4-6)* MV E/A 1.3 MV P1/2t 81 msec (30-60)+* MV pkE 67.3 cm/s (60-130) MV mnPG 1 mmHg MV pkA 50.1 cm/s PV Forward Flow PV pkVel 110 cm/s (60-90)* PV pkPG 5 mmHg Lat E' Lat e 8.05 cm/s Lat E/E' Lat E/e 8.4 Med E' Med e 7.83 cm/s Med E/E' Med E/e 8.6 Aortic Valve Aortic Valve Ar 0.46 Aortic Valve Ve 0.28 AV DI Value 0.3 JAYLAN (VTI) Index Value 0.46 LV Mass 2D Value 365 g LV Mass [id number] Value 148 g/m2 <Electronic Signature> 12/11/2023 09:42 AM Shiv Meehan M.D. Brandie Jensen APRN, [facility] WINDER-C ECHO Final Result documented in this encounter Visit Diagnoses Diagnosis Essential hypertension Unspecified essential hypertension Nonrheumatic aortic valve stenosis Aortic valve disorders LVH (left ventricular hypertrophy) Cardiomegaly documented in this encounter Administered Medications Inactive Administered Medications - up to 3 most recent administrations Medication Order MAR Action Action Date Dose Rate Site perflutren lipid microsphere (DEFINITY) injection 1 mL 1 mL, Intravenous, IMG once as needed, Contrast, 1 dose, Starting on 12/11/23 at 0819, Until 12/11/23 at 0819, Administer over 30-60 seconds. Follow with 10 mL saline flush. 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. [address] [place], [place] [address] Surgeon NEUROLOGICAL SURGERY 12/08/21 Torrey Lafleur MD [address] [facility] [place], [place] [address] ORTHOPAEDIC SURGERY 11/22/22 documented as of this encounter
--- OUTSIDE RECORDS SUMMARY | 2024-07-28 01:00 | XMS_ITS | Encounter Summary ---
Author Organization [facility] Address [address] [facility] [place] [address] Care Team Providers Care [employer] Certified [employer] Professional Name Role Phone Faisal Richardson DO Primary Care Provider [phone] Encounter Details Date Type Department Care Team (Latest Contact Info) Description 11/27/2022 9:35 AM CDT - 11/27/2022 11:59 PM CDT [facility] [address] [place], [place] [id number] Torrey Lafleur MD [address] [facility] [address] [place] [id number] Discharge Disposition: Home or Self Care Social History Tobacco Use Types Packs/Day Years Used Date Smoking Tobacco: Never Smokeless Tobacco: Never Alcohol Use Standard Drinks/Week Comments Yes 0 (1 standard drink = 0.6 oz [...] - Inhaled Oxygen Concentration - - Weight 126.1 kg (278 lb) 11/27/2022 10:02 AM CDT Height 182.9 cm (6') 11/27/2022 10:02 AM CDT Body Mass Index 37.7 11/27/2022 10:02 AM CDT documented in this encounter Medications at Time [...] MG/0.5ML injection 10/17/2021 ergocalciferol (Drisdol) 1.25 MG (34088 UT) capsule Take 1 (one) capsule by [...] 1 (one) tablet by mouth once daily acetaminophen (Tylenol) 500 MG tablet 08/06/2021 12/09/2022 amLODIPine (Norvasc) 5 MG tablet Take 1 (one) tablet by mouth once daily 03/06/2022 10/04/2023 aspirin (Aspirin 81) 81 MG chew tablet Take 1 (one) tablet by mouth 2 times daily 70 tablet 12/09/2022 12/09/2022 aspirin (Aspirin 81) 81 MG chew tablet Take 1 (one) tablet by mouth 2 times daily 70 tablet 12/09/2022 12/09/2022 aspirin (Aspirin 81) 81 MG chew tablet [...] mouth 2 times daily 70 tablet 12/09/2022 12/09/2022 famotidine (Pepcid) 20 MG tablet Take 1 (one) tablet by mouth 2 times daily 70 tablet 12/09/2022 12/09/2022 famotidine (Pepcid) 20 MG tablet Take 1 (one) tablet by mouth 2 times daily 70 tablet 12/09/2022 12/16/2022 HYDROcodone-acetaminoph en ([place]) 5-325 MG tabletIndications:S/P total right hip arthroplasty Take 1 (one) tablet by mouth every 4 hours as needed for Pain 42 tablet 12/09/2022 12/09/2022 HYDROcodone-acetaminoph en ([place]) 5-325 MG tabletIndications:S/P total right hip arthroplasty Take 1 (one) tablet by mouth every 4 hours as needed for Pain 42 tablet 12/09/2022 12/09/2022 HYDROcodone-acetaminoph en ([place]) 5-325 MG tabletIndications:S/P total right hip arthroplasty Take 1 (one) tablet by mouth every 4 hours as needed for Pain 42 tablet 12/09/2022 01/02/2023 losartan-hydroCHLOROthi azide (Hyzaar) 100-12.5 MG tablet Take 1 (one) tablet by mouth every morning 10/17/2021 10/04/2023 pregabalin (Lyrica) 50 MG capsule Take 1 (one) capsule by mouth 2 times daily 70 capsule 12/09/2022 12/09/2022 pregabalin (Lyrica) 50 MG capsule Take 1 (one) capsule by mouth 2 times daily 70 capsule 12/09/2022 12/09/2022 documented as of this encounter Plan of Treatment Upcoming Encounters Date Type Department Care Team (Late st Contact Info) Description 01/20/2025 10:00 AM CDT Office Visit [facility] - Orthopedic Surgery [address] [place] [phone] Torrey Lafleur MD [address] [facility] [address] [place] [address] documented as of this encounter Procedures Procedure Name Priority Date/Time Associated Diagnosis Comments APHERESIS/TRANSFUSION ORDER 12/11/2022 9:12 PM CDT CULTURE MSSA/MRSA Pre-Op 11/27/2022 9:5 0 AM CDT Preop examination URINALYSIS REFLEX MICROSCOPIC REFLEX CULTURE Pre-Op 11/27/2022 9:50 AM CDT Preop examination TRANSFERRIN Pre-Op 11/27/2022 9:50 AM CDT Preop examination HEMOGLOBIN A1C STAT 11/27/2022 9:50 AM CDT Preop examination FRUCTOSAMINE STAT 11/27/2022 9:50 AM CDT Preop examination TYPE + SCREEN PANEL Pre-Op 11/27/2022 9 :50 AM CDT Preop examination CBC W AUTO DIFFERENTIAL Pre-Op 11/27/2022 9:50 AM CDT Preop examination COMPREHENSIVE METABOLIC PANEL Pre-Op 11/27/2022 9:50 AM CDT Preop examination documented in this encounter Results * APHERESIS/TRANSFUSION ORDER (12/11/2022 9:12 PM CDT) Narrative 12/11/2022 9:12 PM CDT Ordered by an unspecified provider. Scanned Document NURSING - VITAL SIGN S AND ASSESSMENT * HEMOGLOBIN A1C (11/27/2022 9:50 AM CDT) Hemoglobin A1c 5.6 <5.7 % 11/27/2022 11:01 AM CDT [facility] Estimated Average Glucose 114 mg/dL 11/27/2022 11:01 AM CDT [facility] Blood BLOOD SPECIMEN / Unknown Venipuncture / Unknown 11/27/2022 9:50 AM CDT 11/27/2022 10:14 AM CDT [facility] - 11/27/2022 11:01 AM CDT HbA1c Interpretation: Normal: < 5.7% Pre-diabetes: [...] exceeds 5% in the specimen. The [employer] assay for the measurement of HbA1c is a National Glycohemoglobin Standardization Program (NGSP) certified method. Torrey Lafleur MD LAB - CHEMISTRY ORD ERABLES [facility] [address] [place] [address] * FRUCTOSAMINE (11/27/2022 9:50 AM CDT) [facility] Fructosamine 267 0 - 285 umol/L 11/28/2022 4:07 AM CDT [facility] ([facility]) Comment: Published reference interval for apparently healthy subjects between age 20 and 60 is 205 - 285 umol/L and in a poorly controlled diabetic population is 228 - 563 umol/L with a mean of 396 umol/L. Blood BLOOD SPECIMEN / Unknown Venipuncture / Unknown 11/27/2022 9:50 AM CDT 11/27/2022 10:14 AM CDT Narrative [facility] ([facility]) - 11/28/2022 4:07 AM CDT Performed at: ??01 - [facility] [address] [facility], [place], [place] [phone] Casting Machine Adjuster: Chay Schwartz PhD, Phone: ??[phone] Torrey Lafleur MD LAB - CHEMISTRY ORD ERABLES [facility] ([facility]) [address] [place] [address] * URINALYSIS REFLEX MICROSCOPIC REFLEX CULTURE (11/27/2022 9:50 AM CDT) Color UA Yellow Straw, Yellow 11/27/2022 10:24 AM CDT [facility] Clarity UA Clear Clear 11/27/2022 10:24 AM CDT [facility] Glucose UA Negative Negative 11/27/2022 10:24 AM CDT [facility] Bilirubin UA Negative Negative 11/27/2022 10:24 AM CDT [facility] Ketone UA Negative Negative 11/27/2022 10:24 AM CDT [facility] Specific [place] UA 1.019 1.005 - 1.030 11/27/2022 10:24 AM CDT [facility] Blood UA Negative Negative 11/27/2022 10:24 AM CDT [facility] pH UA 5.0 5.0 - 8.0 pH 11/27/2022 10:24 AM CDT [facility] Protein UA Negative Negative 11/27/2022 10:24 AM CDT [facility] Urobilinogen UA Negative Negative mg/dL 11/27/2022 10:24 AM CDT [facility] Nitrite UA Negative Negative 11/27/2022 10:24 AM CDT [facility] Leukocyte UA Negative Negative 11/27/2022 10:24 AM CDT [facility] Urine Microscopy Urine microscopy not indicated 11/27/2022 10:24 AM CDT [facility] Reflex Status Culture not indicated 11/27/2022 10:24 AM CDT [facility] Urine URINE SPECIMEN OBTAINED BY CLEAN CATCH PROCEDURE / Unknown Collection / Unknown 11/27/2022 9:50 AM CDT 11/27/2022 10:13 AM CDT Narrative [facility] - 11/27/2022 10:24 AM CDT Torrey Lafleur MD LAB - URINALYSIS OR DERABLES Performing Organization Address City/[facility]/ZIP Co de Phone Number [facility] [address] [place] [address] * TYPE + SCREEN PANEL (11/27/2022 9:50 AM CDT) ABO Rh O POS 11/27/2022 10:59 AM CDT [facility] Comment:History checked. Antibody Screen NEG 10:59 AM CDT [facility] Blood Bank BLOOD SPECIMEN / Unknown Venipuncture / Unknown 11/27/2022 9:50 AM CDT 11/27/2022 10:14 AM CDT Torrey Lafleur MD LAB - BLOOD BANK OR DERABLES Performing Organization Address City/[facility] Co de Phone Number [facility] [address] [place] [address] * TRANSFERRIN (11/27/2022 9:50 AM CDT) Transferrin 272 174 - 364 mg/dL 11/27/2022 10:52 AM CDT [facility] Blood BLOOD SPECIMEN / Unknown Venipuncture / Unknown 11/27/2022 9:50 AM CDT 11/27/2022 10:14 AM CDT Trorey Lafleur MD LAB - CHEMISTRY ORD ERABLES Performing Organization Address City/[facility]/ZIP Co de Phone Number [facility] [address] [place] [address] * CULTURE MSSA/MRSA (11/27/2022 9:50 AM CDT) Culture Negative for Staphylococcus aureus (MRSA/MSSA) 11/28/2022 5:14 PM CDT [facility] Microbiology SPECIMEN FROM NASAL FOSSAE / Unknown Collection / Unknown 11/27/2022 9:50 AM CDT 11/27/2022 10:14 AM CDT Torrey Lafleur MD LAB - MICROBIOLOGY ORDERABLES [facility] [address] [place] [phone] * (ABNORMAL) COMPREHENSIVE METABOLIC PANEL (11/27/2022 9:50 AM CDT) Glucose 126(H) 70 - 105 mg/dL 11/27/2022 10:52 AM CDT [facility] Sodium 137 136 - 145 mmol/L 11/27/2022 10:52 AM CDT [facility] Potassium 4.4 3.5 - 5.1 mmol/L 11/27/2022 10:52 AM CDT [facility] Chloride 106 98 - 107 mmol/L 11/27/2022 10:52 AM CDT [facility] CO2 20(L) 23 - 31 mmol/L 11/27/2022 10:52 AM CDT [facility] Calcium 9.7 8.4 - 10.4 mg/dL 11/27/2022 10:52 AM CDT [facility] Anion Gap 11 8 - 18 mmol/L 11/27/2022 10:52 AM CDT [facility] BUN 14 8.4 - 25.7 mg/dL 11/27/2022 10:52 AM CDT [facility] Creatinine 0.74 0.72 - 1.25 mg/dL 11/27/2022 10:52 AM CDT [facility] Alkaline Phosphatase 73 40 - 150 U/L 11/27/2022 10:52 AM CDT [facility] ALT 24 0 - 61 U/L 11/27/2022 10:52 AM CDT [facility] AST 20 5 - 34 U/L 11/27/2022 10:52 AM CDT [facility] Protein Total 7.4 6.4 - 8.3 gm/dL 11/27/2022 10:52 AM CDT [facility] Albumin 4.4 3.5 - 5.2 gm/dL 11/27/2022 10:52 AM CDT [facility] Bilirubin Total 0.9 0.2 - 1.2 mg/dL 11/27/2022 10:52 AM CDT [facility] eGFR by CKD-EPI >90 >=90 mL/min/1.7 3 m2 11/27/2022 10:52 AM CDT [facility] Blood BLOOD SPECIMEN / Unknown Venipuncture / Unknown 11/27/2022 9:50 AM CDT 11/27/2022 10:14 AM CDT Torrey Lafleur MD LAB - CHEMISTRY ORD ERABLES [facility] [address] [place] [address] * (ABNORMAL) CBC W AUTO DIFFERENTIAL (11/27/2022 9:50 AM CDT) WBC 5.7 4.4 - 10.7 x10E9/L 11/27/2022 10:23 AM CDT [facility] WBC Corrected 11/27/2022 10:23 AM CDT [facility] RBC 4.02 3.80 - 5.40 x10E12/L 11/27/2022 10:23 AM CDT [facility] Hemoglobin 12.9 12.0 - 17.6 gm/dL 11/27/2022 10:23 AM CDT [facility] Hematocrit 38.0 35.2 - 51.7 % 11/27/2022 10:23 AM CDT [facility] MCV 94.5 80.7 - 98.3 fl 11/27/2022 10:23 AM CDT [facility] MCH 32.1 26.7 - 34.0 pg 11/27/2022 10:23 AM CDT [facility] MCHC 33.9 30.8 - 35.9 gm/dL 11/27/2022 10:23 AM CDT [facility] Platelet Count 147(L) 153 - 416 x10E9/L 11/27/2022 10:23 AM CDT [facility] RDW-CV 13.7 12.1 - 14.9 % 11/27/2022 10:23 AM CDT [facility] MPV 9.4 9.4 - 12.9 fl 11/27/2022 10:23 AM CDT [facility] Neutrophils % 54.7 44.0 - 73.0 % 11/27/2022 10:23 AM CDT [facility] Lymphocytes % 32.1 20.0 - 43.0 % 11/27/2022 10:23 AM CDT [facility] Monocytes % 9.6 5.0 - 13.0 % 11/27/2022 10:23 AM CDT [facility] Eosinophils % 1.9 0.0 - 6.0 % 11/27/2022 10:23 AM CDT [facility] Basophils % 0.5 0.0 - 2.0 % 11/27/2022 10:23 AM CDT [facility] Immature Granulocytes 1.2(H) 0 - 1 % 11/27/2022 10:23 AM CDT [facility] Neutrophil Absolute 3.14 2.01 - 7.14 x10E9/L 11/27/2022 10:23 AM CDT [facility] Lymphocytes Absolute 1.84 1.07 - 3.94 x10E9/L 11/27/2022 10:23 AM CDT [facility] Monocytes Absolute 0.55 0.26 - 1.07 x10E9/L 11/27/2022 10:23 AM CDT [facility] Eosinophils Absolute 0.11 0 - 0.47 x10E9/L 11/27/2022 10:23 AM CDT [facility] Basophils Absolute 0.03 0 - 0.08 x10E9/L 11/27/2022 10:23 AM CDT [facility] Immature Granulocytes Absolute 0.07(H) 0.00 - 0.06 x10E9/L 11/27/2022 10:23 AM CDT [facility] nRBC Auto 0 /100 WBC 11/27/2022 10:23 AM CDT [facility] Blood BLOOD SPECIMEN / Unknown Venipuncture / Unknown 11/27/2022 9:50 AM CDT 11/27/2022 10:14 AM CDT Torrey Lafleur MD LAB - HEMATOLOGY OR DERABLES Performing Organization Address City/State/[facility] Co de Phone Number [facility] [address] [place] [address] documented in this encounter Visit Diagnoses Diagnosis Preop examination- Primary Preoperative examination, unspecified documented in this encounter Care Teams [employer] Cert[employer] Professional Relationship Specialty Start Date End Date Faisal Richardson DO [address] [place] [id number] PCP - General Family Medicine 11/27/22 documented as of this encounter
--- OUTSIDE RECORDS SUMMARY | 2024-07-28 01:00 | XMS_ITS | Encounter Summary ---
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 [facility] [facility] [address] Torrey Lafleur MD [facility] 11/21/2022 Jose Rutledge [address] [place] [address] Total Joint Arthroplasty Cardiology Clearance Form Dr. Torrey Lafleur MD Diagnosis: Right Hip Failed Arthroplasty Procedure: Right Total Hip Arthroplasty Revision Dia-operative Comments/Recommendations: Jose Rutledge has been medically cleared for surgery. . Provider Signature Phone: Fax: Please fax this form and any other relevant documentation to [phone] Attn: Agnes Sincerely, Torrey Lafleur MD [address] [facility] [address] Torrey Lafleur MD [facility] 11/21/2022 Jose Rutledge [address] [place] [address] Total Joint Arthroplasty Medical Clearance Form Dr. Torrey Lafleur MD Diagnosis: Right Hip Failed Arthroplasty Procedure: Right Total Hip Arthroplasty Revision Dia-operative Comments/Recommendations: Jose Rutledge is medically stable and may be scheduled for surgery.. Provider Signature Phone: Fax: Please fax this form and any other relevant documentation to [phone] Attn: Agnes Sincerely, Torrey Lafleur MD [address] [facility] [address] Torrey Lafleur MD [facility] 11/21/2022 Jose Rutledge [address] [facility] [address] Total Joint Arthroplasty Dental Clearance Form Dr. Torrey Lafleur MD Diagnosis: Right Hip Failed Arthroplasty Procedure: Right Total Hip Arthroplasty Revision Dia-operative Comments/Recommendations: Jose Rutledge has received all dental work deemed necessary prior to surgery. This includes routinecleaning, cavitity fillings, etc, not only infection check. . Provider Signature Phone: Fax: Please fax this form and any other relevant documentation to [phone] Attn: Agnes Sincerely, Torrey Lafleur MD [address] [place] [id number] [address] Lafleur Surgical Patients Agnes - if you have any questions about scheduling your surgery, or if your clearance forms havebeen received, please call Agnes at [phone]. Agnes is Dr. Lafleur's surgery consultant. She will contact you to choose a surgery date after she has received the signed clearance forms from your other providers that were given to you in the office. For surgery date/time or clearance form questions, please contact Agnes at [phone]. The fax number for Agnes to send your surgery clearances is [phone]. Estrada - If you have any medical or medicine related questions, or about what the surgery entails, please call Estrada at [phone]. For any medical questions related to your surgery or postoperative care concerns, please contact Estrada at [phone]. She also completes all FMLA/Short Term Disability papers. They can be faxed to her at [phone]. Your surgery will be at [facility] - [address] [place] [address]. Please use the West entrance of the hospital and go to the registration desk right inside. The hospital will call you to schedule a preoperative testing appointment once you have a date for surgery scheduled. Your testing appointment ideally will be about 2 weeks prior to surgery. If you have any questions, please read through the packet given to you first. This has many answersto common questions and will prevent delays in getting answers. Before Surgery Prepare your Home Remove all clutter,wires, and throw rugs on the floor that could cause you to trip Obtain a rubber bath mat for the shower and a non slip rug for the bathroom floor Prepare meals that can be frozen and easily reheated Make sure hallways and walkways are well lit Pre-op Diet We recommend a high protein, high fiber, diet to optimize recovery. This includes: Fruits Vegetables Nuts Lean proteins Premier Protein or Ensure protein shakes Preoperative Medications All blood thinning medications will need to be stopped before surgery. If you are currently taking a blood thinner, please call the provider who prescribes the medicationfor specific instructions about how to safely stop the medication before surgery. Aspirin should be stopped 7 days before surgery unless otherwise directed by the provider. Other medications that should be stopped include Anti-inflammatory medication such as naproxen, meloxicam (Mobic), Advil, Aleve, Ibuprofen, and Celebrex All herbal medications such as fish oil, flaxseed oil, primrose oil, ginkgo, echinacea, or Steamboat's wort Vitamin E capsules Weight loss medications You may continue to take Tylenol (acetaminophen) up until the night before your surgery. Unless otherwise instructed, all other medications should not be stopped, and should be taken as prescribed until midnight, the night before surgery. The only prescription medications you need to bring with you are prescription eye drops and inhalers. You may bring a list, but do not bring any other medications. Postoperative Medications Please allow 24-48 hours to process any medication request or refill Please call the office or use my chart to ask for a medication refill Medications that generally do not need refilling after they run out include: Aspirin Famotidine Docusate sodium Medications that we will refill for a time after surgery: Pain medication Anti-inflammatories Preferred pain medication after surgery is [place] (hydrocodone-acetaminophen) 5-325. You must take the anti-inflammatories to complement the [place], and additional tylenol (not to exceed 4,000 mg in combination with [place]). [place] is to be used for breakthrough pain. We will only fill one week of medication at a time Complimentary pain controls measures must be used in combination with pain medication Ice Elevation Compression Sleep adjuncts for difficulty sleeping at night Benadryl Unisom Melatonin Your legs may become ???fidgety?? at night or the end of the day. This is due to decreased activity, healing muscles and bone, and physical exhaustion. The best way to combat this is to use compression stockings during the day, elevate legs at night, and move your legs at night (e.g. physical therapy exercises) to relieve tension. There is no medication for this, and it is quite common after surgery. It will resolve itself with time. Length of Hospital Stay Elective Joint replacement generally requires a 1-2 night outpatient stay. This depends on pain control, being cleared from a physical and occupational therapy standpoint, and safety of returning home. If you do not feel safe to return home, please speak up. There are are other options available to you: Staying one more night to gain strength Inpatient Rehab or SNF if the home situation does not allow for proper post op care. Home Health What to bring to the hospital Current list of medication Loose fitting clothing and close toed shoes Hearing aids and head bander and liner operator/batteries CPAP/BIPAP machine and tubing Cell phone and head bander and liner operator Photo ID and insurance card Legal documents including POA or Advanced directive Personal toiletries if preferred What not to bring to the hospital A walker (have your transportation bring a walker at time of discharge if you have pme) Valuable including jewelry, credit cards, checks Medication beside inhalers or eye drops The night before your surgery Do not eat or drink anything after midnight Confirm transportation and time of arrival for procedure Plan for all things at home to be taken care of for at least one night Pet care respiratory care specialist Deliveries Etc Arrival At The Hospital When you arrive: You will be escorted to your room, where you'll change into a hospital gown Nursing staff will welcome and orient you to your room A focused health assessment will be performed You will be seen by an anesthesia care team, then prepared for surgery (intravenous fluids started,preoperative medication given, etc.) Your surgical team will escort you to the operating room Your family will be directed to the surgical waiting room until you are transferred to the orthopedic floor The patient liaison will keep the family informed during your surgery Immediately after surgery: You will be transported to the PACU (Post Anesthesia Care Unit) You will be monitored for approximately 1-2 hours in the PACU (blood pressure, pulse, and temperature will be monitored frequently) An anesthesiologist will evaluate your readiness to transfer to the orthopedic floor DURING HOSPITAL STAY Post- Operative Care: Your vital signs and assessments will continue to be monitored. Your blood will be drawn early in the morning. Your network planner will assess and work with you and your family regarding your discharge needs. You will be discharged home once you have met your discharged goals. Your friend or family member transporting you home will need to park outside the main entrance to the hospital and a staff member will accompany you to the car. Physical Therapy: You will participate in physical therapy after surgery, often the same day as surgery. The day of surgery often consists of getting out of bed to the chair or going from bed to the bathroom. Startingthe day after surgery, you will have 2 physical therapy sessions a day with different exercises to get your strength back and increase your independence. Consider taking your pain medication 30 minutes before your therapy sessions; this will help you toremain comfortable and achieve maximum benefit from your therapy sessions DISCHARGE- GOING HOME Home health care will come to visit you after your surgery. This will consist of a nurse, an occupational therapist, and a physical therapist. They will call you to let you know when they will be coming. This will be arranged in the hospital by the case management rn before you leave. Wound care: Keep the incision clean and dry, and covered if ingris are still in. Once ingris are removed, a dressing is no longer needed. Shower: You can shower if you have a waterproof dressing on. Otherwise avoid showering until 24-48 hours after ingris are removed. Sleeping/positioning: Complaints of pain worsening at night are common, making it difficult to sleep. A recliner may be comfortable for sleeping and will make it easier to get up. For hip replacementpatients, you can sleep on your surgical hip. If you sleep on the non-surgical side, you need to place a pillow between your legs to protect your hip. Driving: You can usually start driving after your 4 [address] appointment[address] You cannot drive if you are on any pain medication. Constipation: The following medication are recommended to prevent constipation while taking opioid medications: Take a stimulant laxative twice a day (Senna S, dulcolax tablets, milk of magnesia). If diarrhea develops, take only at bedtime. Avoid falling after surgery: most falls often occur within the first 24 hours after surgery. Remember: Use your walker when getting up Make sure halls are well lit to avoid tripping over anything that may have fallen on the floor. Take your time, some medication can make you dizzy or unsteady. Going to the Dentist after surgery: For the rest of your life, you will need an antibiotic before your dental appointments. After surgery you need to wait 3 months to go to the dentist. A week beforeyour appointment, you can call our office and we will send the antibiotic to your pharmacy. FOLLOW UP VISITS Your first post-op appointment will be scheduled for you and listed in your hospital discharge paperwork. WHEN TO BE CONCERNED: If you notice any unusual swelling, redness, fever, chills, odor, excessive drainage or bleeding, please call the office immediately. You can reach Dr. Lafleur's nurse Estrada at [phone]. If you go to the ER for any reason related to your surgery, please call the office to in form us of this situation so we can follow it. Thank you. Joint Replacement FAQs How long will I be in the hospital? The average length of stay after joint replacement surgery is two to four days. Length of stay is determined by activity progress, medical progress, and wound condition. What is the recovery time? Patients heal from surgery at a different pace. In most cases you will be advised to use a wheeled walker for two to four weeks postoperatively. Your home therapist then will progress you to a cane when appropriate. You will gradually return to normal function without any assistive device. This usually takes approximately three months but may take longer. Will I go home after surgery or to a rehabilitation facility? Most patients are able to go home after their operation. This includes patients who live independently. In most cases, we believe your home is the best and safest location for your recovery. However,if you are not ready to go home at the time of discharge, you may go to a rehabilitation facility to gain the skills you need to safely return home. Many factors will be considered in this decision, including availability of family or friends to assist with daily activities, home environment and safety considerations, postoperative functional status as evaluated by a physical therapist in the hospital, and overall evaluation by your hospital team. When can I travel? You can travel as soon as you feel comfortable. It is recommended that you get up to stretch or walk at least once an hour when taking long trips. This is important to help prevent blood clots in your legs. When can I return to work? If your work is sedentary, such as an office job, you may return to work after three to four weeks if you feel you are ready. If your work is more active and you spend most of your time standing, walking, or climbing, you may require up to three months before you can return to full duty. In some cases, more or less time is necessary. You may discuss a bzqxgr-ad-mhhn date with your surgeon at yourfirst postoperative office visit. What activities are permitted following surgery? You may return to most activities as tolerated, including walking, gardening, and golf. Some of thebest activities to help with motion and strengthening are swimming and use of a stationary bicycle.You should avoid running, jumping, and vigorous sports such as competitive singles tennis, basketball, football, hockey, or skiing. When may I return to a swimming pool? You may submerge your knee in a swimming pool approximately 6 weeks after surgery if your surgeon has no concerns about your incision healing. How long will my total knee replacement last? How long a knee replacement lasts is different for each patient. For each year following your surgery, you have a 1 percent chance of requiring additional surgery. At ten years postoperatively, 90 percent of patients have not needed further surgery. How long will I be on blood thinner? Your surgeon will make a choice of therapy based on your medical history. If there are no other complications or medical comorbidities, you will be on a blood thinner for 30 days. Can I drink alcoholic beverages during my recovery? If you are taking a blood thinner, you should avoid alcoholic beverages because it changes the effect of this medication. You also should avoid alcohol if you are taking narcotics. If you are not taking these medications, you may use alcohol in moderation at your own discretion. What are good and bad positions for my knee during recovery? You should spend some time each day working on both flexion (bending) and extension (straightening)of your knee. Work on extension of your leg while lying down, and work on flexion when you are up in a chair. It is a good idea to change positions every 15-30 minutes. Avoid placing a pillow or rollunder your knee. A roll under your ankle helps improve extension and prevent a contracture. Should I apply ice or heat? Initially, ice is most helpful to reduce postoperative swelling. We generally advise against applying heat to the leg for three months. Can I go up and down stairs? A physical therapist will teach you to go up and down stairs after surgery. Initially, you will start with your nonsurgical leg when going up stairs, and lead with your surgical leg when coming down.As your muscles get stronger and your motion improves, you will be able to perform stairs in a morenormal fashion. Do I need physical therapy? Physical therapy is important for your recovery. You will be seen by a member of our physical therapy staff soon after your operation and throughout your hospital stay. Once home, a physical therapist probably will visit you two to three times a week as determined by your progress. After your home physical therapy is completed, it may be necessary for some patients to attend outpatient physical therapy for a few weeks. When can I resume sexual intercourse? Sexual activity may be resumed as soon as you are comfortable, and as long as you are following hipprecautions if you had a hip replacement. I am constipated, what should I do? Many pain medications cause constipation. Drink plenty of water and eat foods high in fiber such asfruits and vegetables. An nndw-oyd-clnldmi stool softener/laxative can be taken for this problem. Asuppository or enema sometimes is required if you have not had a bowel movement in 5-7 days. I feel depressed, is this normal? It is not uncommon to have feelings of depression after surgery. This may be caused by a number of factors, such as limited mobility, discomfort, increased dependency on others, and medication side effects. Feelings of depression typically will lessen as you begin to return to regular activities. I have difficulty sleeping (insomnia), is this normal? What can I do about it? Difficulty sleeping is a common complaint after knee replacement. Nonprescription remedies such as Benadryl may be effective. If this continues to be a problem, your doctor may prescribe medication to help you sleep. How much range of motion do I need? Most people require 70 degrees flexion to walk normally on level ground, 90 degrees to walk up stairs, 100 degrees to walk down stairs, and 105 degrees to get out of a low chair. To walk and stand easily, your knee should be almost straight. What range of motion should I expect from my own knee at six weeks? At one year? Range of motion varies and depends on many individual factors. The average patient achieves approximately 120 degrees of flexion by one year postoperatively. I think my leg feels longer now, is this possible? Your leg length generally will be unchanged. In some cases, however, the leg will feel lengthened. This usually is the result of straightening out the knee that had a significant bow deformity preoperatively. This may feel awkward at first, but will feel more normal with time. Can I use weights when I exercise? Weights on the legs generally are not used for the first few months after surgery. As you progress with your physical therapy program, your physical therapist may recommend the use of weights. Ask your surgeon or therapist before using weights. Will I set off the security monitors at the airport? Do I need a doctor's letter? You probably will set off the alarm as you progress through a security checkpoint. Be proactive andinform the security personnel that you have had a total knee prosthesis and most likely will set off the alarm. Wear clothing that will allow you to show them your knee incision without difficulty. A letter from your physician or a wallet card is no longer of any help when passing through, security checkpoints. Can I kneel? After several months you can try to kneel. It may be painful at first but will not be harmful or damaging to your knee. Much of the discomfort comes from kneeling on your recent incision and the healing of local tissues. Kneeling generally becomes more comfortable as time passes. A pad or cushion usually helps. Other Important Information Many things occur after total joint surgery that may be alarming to you unless you are sure that the symptoms are within normal limits. Some of the normal symptoms you may experience include: an intermittent clicking sensation inside the knee an area of skin numbness on the outside part of the knee swelling after exercise and at the end of the day warmth around the knee palpable sutures under the skin that are not apparent until the swelling begins to resolve. Regular follow-up appointments with your surgeon will confirm continued success with your joint replacement. documented in this encounter Progress Notes * Torrey Lafleur MD - 11/21/2022 11:38 AM CDT Patient presents for evaluation of right hip pain after removal of an infected right hip arthroplasty with placement of antibiotic cement spacer at outside facility. He is referred by Dr. Jacobo forevaluation for possible revision. He states he is off all antibiotics. He is a nonsmoker. He complains of pain in the letter C sign distribution around the right hip. He states he had both staph and strep when he was infected. He denies fevers chills or wound problems. Current Outpatient Medications on File Prior to Visit Medication Sig Dispense Refill ??? acetaminophen (Tylenol) [...] MG/0.5ML injection ??? ergocalciferol (Drisdol) 1.25 MG (59848 UT) capsule Take 1 (one) capsule by [...] visit. Past Medical History: Diagnosis Date ??? High blood pressure ??? Mixed hyperlipidemia ??? Restless leg syndrome ??? Sleep apnea ??? Stroke (CMS/HCC) 2021 balance residual ??? Type 2 diabetes mellitus without complications (CMS/[facility]) Past Surgical History: Procedure Laterality Date ??? Appendectomy ??? COLONOSCOPY ??? EGD ??? Rotator Cuff Repair Right ??? SHOULDER ARTHROPLASTY, TOTAL Left Social History Occupational History ??? Not on file Tobacco Use ??? Smoking status: Never ??? Smokeless tobacco: Never Vaping Use ??? Vaping Use: Never used Substance and Sexual Activity ??? Alcohol use: Yes ??? Drug use: No ??? Sexual activity: Not on file Family History Problem Relation Name Age of Onset ??? Diabetes Mother Status: Alive ??? Hypertension Mother ??? Cancer Father rectal; Status: Review of Systems Constitutional: Negative. Negative for chills and fever. Respiratory: Negative for shortness of breath and wheezing (opriate ). Cardiovascular: Negative for claudication and leg swelling. Musculoskeletal: Positive for joint pain. Negative for falls. Skin: Negative for itching and rash. Neurological: Negative for focal weakness. All other systems reviewed and are negative. Physical exam: Patient is awake alert BMI is appropriate Facial expressions are appropriate Patient is cooperative with the examination Examination of the right hip reveals a healed scar with some mild induration without other signs ofinfection. There is no erythema. There is no drainage. I can flex him to 90, abduction 20, 80 adduction 10, internal rotation of 10, external rotation of 10 with no pain. Distally he can dorsiflex and plantar flex his ankle and toes without difficulty. X-rays: My independent interpretation/Assessment of the AP pelvis and AP and lateral the right hip reveals an antibiotic cement spacer in place without obvious complication Assessment: Status post removal of infected right hip arthroplasty with placement of antibiotic cement spacer Plan: We discussed risks and benefits of surgery at length. We discussed infection would be his main risk. We will get a sedimentation rate and C- reactive protein preoperatively to ensure there is nosign of infection an aspirate if need be preoperatively. Conservative treatment for right hip pain status post removal of infected right hip arthroplasty with placement of antibiotic cement spacer including >12 weeks of PT, NSAIDS, glucosamine/Vit D, ambulatory aids, weight loss, and corticosteroid injections will fail as the spacer is not a durable implant. Symptoms of pain, difficulty ambulating, difficulty standing, difficulty with stair climbingand difficulty with personal hygiene are interfering with patient's lifestyle. Will obtain medical and dental clearances and schedule for right hip revision arthroplasty with removal of antibiotic spacer Patient-entered Ortho Intake Form 11/21/[address] Jacobo Reason for visit Right Hip (or thigh) What are your symptoms? Pain, Weakness, Other If Other , please list those symptoms here. hip infection How did this pain/injury begin? from hip replacment When did your pain/injury start? august Does any other area/part of your body hurt? no Active Worker's Comp claim? No Pain level at rest 3 Pain level with activity 8 What makes your pain worse? lifting leg Treatments tried Rest/activity modification, Over the counter pain medication Currently employed? No Smoking status Never Alcohol intake? No Taking opioid/narcotic? No Patient-Reported Satisfaction 11/21/2022 Current state satisfactory? No Prior treatment? Yes - surgery Function since surgery Much Worse Currently taking narcotics? Yes PROMIS Pain Interference 11/21/2022 PROMIS PI Score 70 (moderate) PROMIS Physical Function 11/21/2022 PROMIS PF Score 23 (severe dysfunction) Patient-entered HOOS JR 11/21/2022 Laterality Right Hip HOOS JR Score 46.65 Depression Screening 11/21/2022 PHQ-2 Score 2 (Further screening not recommended) Risks, benefits, and alternatives to the surgical procedure were discussed with the patient and present family members. Risks discussed among others were: Infection, bleeding/blood transfusion, neurovascular damage, prosthetic joint instability, [...] treatment plan and all questions were answered. 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
--- OUTSIDE RECORDS SUMMARY | 2024-07-28 01:00 | XMS_ITS | Encounter Summary ---
Author Organization [facility] Address [address] [facility] [place] [address] [place] [address] Care Team Providers Care [employer] Wiring Technician Name Role Phone Christy Meehan MD Unavailable Unavailabl e Brandie Jensen APRN ENVIRONMENTAL DESIGNER-C Unavailable Noé Crowley MD Unavailable [phone] Jasper Figueroa MD Unavailable [phone] Torrey Lafleur MD Unavailable [phone] Faisal Lakhani DO Primary Care Provider [phone] Reason for Visit * Reason Comments Follow Up Review echocardiogra m results Encounter Details Date Type Department Care Team (Latest Contact Info) Description 12/11/2023 9:30 AM CDT Office Visit [facility] [address] [place] [phone] Christy Meehan MD Follow Up (Review echocardiogram results) Social History Tobacco Use Types Packs/Day Years [...] Sign Reading Time Taken Comments Blood Pressure 122/70 12/11/2023 9:03 AM CDT Pulse 74 12/11/2023 9:03 AM CDT Temperature - - Respiratory Rate 18 12/11/2023 9:03 AM CDT Oxygen Saturation 97% 12/11/2023 9:03 AM CDT Inhaled Oxygen Concentration - - Weight 122.4 kg (269 lb 12.8 oz) 12/11/2023 9:03 AM CDT Height 182.9 cm (6') 12/11/2023 9:03 AM CDT Body Mass Index 36.59 12/11/2023 9:03 AM CDT documented in this encounter Patient Instructions * Patient Instructions* Aleta العلي RN - 12/11/2023 9:30 AM CDT No changes were made to your medications today by Dr. Meehan Please check this list with your actual home medications for accuracy documented in this encounter Progress Notes * Christy Meehan MD - 12/11/2023 9:30 AM CDT Reason for Visit: Follow Up (Review echocardiogram results) History of Present Illness: Recommendations and Plan: Medications: Current Outpatient Medications: ??? Acetaminophen 500 MG Cap, Take 1,000 mg by mouth as needed., Disp: , Rfl: ??? amLODIPine (NORVASC) 10 MG tablet, Take 1 tablet (10 mg total) by mouth daily., Disp: 90 tablet, Rfl: 3 ??? betamethasone dipropionate 0.05 % ointment, as needed., Disp: , Rfl: ??? buPROPion XL (WELLBUTRIN XL) 300 MG 24 hr tablet, Take 1 tablet (300 mg total) by mouth every morning., Disp: , Rfl: ??? calcipotriene (DOVONOX) 0.005 % ointment, , Disp: , Rfl: ??? CARVEDILOL 25 MG tablet, TAKE ONE TABLET BY MOUTH TWICE A DAY, Disp: 180 tablet, Rfl: 1 ??? cloNIDine (CATAPRES) 0.1 MG tablet, Take 1 tablet (0.1 mg total) by mouth 2 (two) times daily.,Disp: , Rfl: ??? clopidogrel (PLAVIX) 75 MG tablet, Take 1 tablet (75 mg total) by mouth daily., Disp: , Rfl: ??? cyclobenzaprine 10 MG tablet, Take 1 tablet (10 mg total) by mouth 2 (two) times a day., Disp: , Rfl: ??? ferrous sulfate, 65 mg elemental, 325 (65 FE) MG tablet, Take 1 tablet (325 mg total) by mouth 2 (two) times a day., Disp: , Rfl: ??? Losartan Potassium-HCTZ 100-12.5 MG Tab, Take 1 tablet by mouth daily., Disp: , Rfl: ??? metFORMIN 1000 MG tablet, Take 1 tablet (1,000 mg total) by mouth 2 (two) times daily with meals., Disp: , Rfl: ??? Multiple Vitamins-Minerals (EQ COMPLETE MULTIVITAMIN-ADULT) Tab, Take 1 tablet by mouth daily.,Disp: , Rfl: ??? pantoprazole EC (PROTONIX) 40 MG tablet, Take 1 tablet (40 mg total) by mouth daily., Disp: , Rfl: ??? probiotic (FLORAJEN3) Cap capsule, Take 1 capsule by mouth daily with breakfast., Disp: , Rfl: ??? rosuvastatin (CRESTOR) 40 MG tablet, Take 1 tablet (40 mg total) by mouth daily., Disp: , Rfl: ??? sertraline (ZOLOFT) 100 MG tablet, Take 1 tablet (100 mg total) by mouth daily., Disp: , Rfl: ??? TRULICITY 3 MG/0.5ML injection, Inject 3 mg into the skin once a week., Disp: , Rfl: Allergies Allergen Reactions ??? Penicillins Unknown and Angioedema Past Medical History: Diagnosis Date ??? Abnormal stress test ??? Back pain need surgery here for clearance ??? Bleeding ulcer ??? Diabetes ([facility]/HCC [facility]/HCC) ??? Heart burn ??? HTN (hypertension) ??? Hyperlipidemia ??? Mild coronary artery disease ??? Neuropathy ??? Tinnitus Past Surgical History: Procedure Laterality Date ??? APPENDECTOMY ??? BACK SURGERY 2017 ??? HEART CATH 11/23/2017 ??? REPAIR ROTATOR CUFF,CHRONIC Social History Tobacco Use ??? Smoking status: Never ??? Smokeless tobacco: Never Family History Problem Relation Name Age of Onset ??? Diabetes Mother ??? Hypertension Mother ??? Cancer Father ??? Cancer Brother ??? CHF Brother ??? Open Heart Paternal Uncle ??? Open Heart Paternal Uncle Family Status Relation Name Status ??? Mother ??? Father ??? Brother (Not Specified) ??? PUncle (Not Specified) ??? PUncle (Not Specified) No partnership data on file Review of Systems Constitutional: Positive for fatigue. Negative for recent unintentional weight gain and recent unintentional weight loss. HENT: Negative for new or significant hearing loss. Eyes: Negative for blurred vision and double vision. Respiratory: Negative for cough, new or significant shortness of breath and snoring. Cardiovascular: See HPI. Gastrointestinal: Negative for blood in stool and melena. Genitourinary: Negative for dysuria. Musculoskeletal: Positive for myalgias and joint stiffness/pain. Skin: Positive for rash. Neurological: Negative for tingling/numbness and focal weakness. Endo/Heme/Allergies: Positive for easy bruising/bleeding. Negative for polydipsia. Psychiatric/Behavioral: Negative for depression and new or significant memory loss. Vitals: 12/11/23 0903 BP: 122/70 Patient Position: Sitting BP Location: Right arm Pulse: 74 Weight: 122.4 kg (269 lb 12.8 oz) Height: 1.829 m (6') Body mass index is 36.59 kg/m??. Cardiac Exam Rate/Rhythm: Normal rate and regular rhythm. PMI: PMI is not displaced. Pulses: Normal pulses. Femoral pulses are 2+ on the right side and 2+ on the left side. Heart Sounds: Normal S1 sounds. Normal S2 sounds. No gallop present. No S3. No S4. Murmurs: Murmur present (2/6 JORGE ALBERTO radiating to carotids bilaterally) Physical Exam Constitutional: No distress. Healthy Appearance. Overweight. HENT: Oropharynx clear. Eyes: Pupils equal, round, and reactive to light. Conjunctivae normal. Neck: Neck supple. No JVD. Abdomen: Abdomen soft. Bowel sounds normal. No tenderness. No mass. No hepatomegaly. No splenomegaly. Abdominal aorta not palpably enlarged. No abdominal bruit present. Pulmonary: Effort normal. Breath sounds normal. Skin: No rash. No cyanosis. No clubbing. No xanthoma. Musculoskeletal: No kyphosis. Normal ROM. Neurological: Alert. Oriented x 3. Appropriate mood and affect. Normal motor skills. Normal gait. Comments: The documentation for the above exam was created using a template entered by ancillary staff however the physical exam was completed entirely by the provider responsible for this visit. Thephysical exam documentation was reviewed and modified by the provider to reflect his/her findings. Diagnoses/Impression: 1. Nonrheumatic aortic valve stenosis 2. Mild coronary artery disease 3. Primary hypertension 4. History of CVA (cerebrovascular accident) 5. Mild carotid artery disease (CMS/HCC) 6. Hyperlipidemia, unspecified hyperlipidemia type Referring Provider: No ref. provider found PCP: FAISAL LAKHANI DO * Christy Meehan MD - 12/11/2023 9:30 AM CDT Patient Name: TAYLOR RUTLEDGE Date of : 1965 Account: [id number] Facility: [facility] Location: [facility] Date of Service: 12/11/2023 Visit HISTORY OF PRESENT ILLNESS: Mr. Rutledge is seen in the cardiology clinic today for a scheduled followupvisit. He is a pleasant 58-year-old gentleman with a history of coronary artery disease, aortic stenosis, left ventricular hypertrophy, CVA in 2021, hypertension, hyperlipidemia, sleep apnea, and diabetes mellitus. He reports that he is doing well from a cardiac standpoint. Mr. Rutledge does complain of some dyspnea on exertion, but this is unchanged from previously. He deniesany anginal chest pain or overt symptoms of congestive heart failure such as paroxysmal nocturnal dyspnea, orthopnea, or pedal edema. He does suffer from obstructive sleep apnea and he has been able to wear his CPAP mask more than 4 hours nightly. He denies any syncope or near syncope. He has had no claudication and is tolerating his present medications well. Evaluation during the clinic visit included an EKG, which confirmed the presence of normal sinus rhythm at a rate of 63 beats per minute. A nonspecific ST and T- wave abnormality was noted. An echocardiogram was also performed and revealed moderate concentric left ventricular hypertrophy with normalleft ventricular systolic function. The calculated left ventricular ejection fraction was 66%. Right ventricular size and systolic function was normal and there was moderate calcific aortic valve stenosis with a peak gradient of 47 mmHg (mean gradient 28 mmHg). No evidence of aortic regurgitation was identified. Laboratory from December of last year showed a serum potassium of 3.9 with a BUN of 11 andcreatinine 0.81. RECOMMENDATIONS AND PLAN: Mr. Rutledge's cardiac status appears clinically stable at the present time without ongoing anginal chest pain, overt symptoms of congestive heart failure, or clinical evidence of significant arrhythmias. He continues to suffer from his moderate calcific aortic valve stenosis, but is essentially asymptomatic at this time. Continued medical therapy and close observation seem most appropriate. I have recommended the following to Mr. Rutledge: 1. Aggressive attempts at weight loss and participation in some sort of exercise program. 2. Continue present medical regimen without alteration. We will continue his Plavix antiplatelet therapy due to his history of CVA. 3. Lipid management per Dr. Lakhani's expertise. A reasonable goal would be to maintain an LDL cholesterol fraction of 70 or less associated with a normal total cholesterol to HDL cholesterol ratioand serum triglyceride level. 4. Annual followup in the cardiology clinic. I do believe that Mr. Rutledge would benefit from an annualechocardiogram as a way of following his aortic valve stenosis. I have encouraged him to contact tamiko in the meantime should he have any questions or problems. Signature/Date: CHRISTY MEEHAN #[id number] /JOSETTE documented in this encounter Plan of Treatment Upcoming Encounters Date Type Department Care Team (Late st Contact Info) Description 12/11/2024 2:00 PM CDT Office Visit [facility] [address] [place] [address] Brandie Jensen, SHANNAN, ENVIRONMENTAL DESIGNER-C [address] [facility] [address] [place] [address] documented as of this encounter Procedures Procedure Name Priority Date/Time Associated Diagnosis Comments ELECTROCARDIOGRAM (NON MIDMARK ACQUIRED) Routine 12/11/2023 9:10 AM CDT Mild coronary artery disease Essential hypertension documented in this encounter Visit Diagnoses Diagnosis Nonrheumatic aortic valve stenosis- Primary Aortic valve disorders Mild coronary artery disease Primary hypertension Unspecified essential hypertension History of CVA (cerebrovascular accident) Transient ischemic attack (TIA), and cerebral infarction without residual deficits Mild carotid artery disease (CMS/HCC) Unspecified disorders of arteries and arterioles Hyperlipidemia, unspecified hyperlipidemia type documented in this encounter Care Teams [employer] Wiring Technician Relationship Specialty Start Date End Date Faisal Lakhani DO [address] [place] [address] PCP - General FAMILY PRACTICE 11/29/22 Christy Meehan MD [employer] Print Color Operator CARDIOVASCULAR DISEASE 10/29/17 03/18/24 Brandie Jensen, UNDERGROUND SUPERVISOR, ENVIRONMENTAL DESIGNER-C [address] [facility] [address] [place] [address] NURSE PRACTITIONER 02/08/21 Noé Crowley MD [address] [facility] [address] [facility] [address] [place] [address] Surgeon ORTHOPAEDIC SURGERY 02/08/21 Jasper Figueroa MD [address] [facility] [place] [address] Surgeon NEUROLOGICAL SURGERY 12/08/21 Torrey Lafleur MD [address] [facility] Orthopaedic [place], [place] [address] ORTHOPAEDIC SURGERY 11/22/22 documented as of this encounter
--- OUTSIDE RECORDS SUMMARY | 2024-07-28 01:00 | XMS_ITS | Encounter Summary ---
Author Organization [facility] Address [address] [facility] [place] [place] [address] [place] [address] Care Team Providers Care Engraver Picture Name Role Phone Christy Meehan MD Unavailable Unavailabl e Brandie Jensen APRN, FIRST LEVELER-C Unavailable [phone] Noé Crowley MD Unavailable [phone] Jasper Figueroa MD Unavailable [phone] Torrey Lafleur MD Unavailable [phone] Faisal Richardson DO Primary Care Provider [phone] Encounter Details Date Type Department Care Team (Late st Contact Info) Description 07/05/2023 Orders Only [facility] [address] [place] [phone] Christy Meehan MD Social History Tobacco Use Types Packs/Day Years [...] on file documented as of this encounter Plan of Treatment Upcoming Encounters Date Type Department Care Team (Late st Contact Info) Description 12/11/2024 2:00 PM CDT Office Visit [facility] [address] [place] [address] Brandie Jensen APRN, FIRST LEVELER-C [address] [facility] [address] [place] [address] documented as of this encounter Results * ELECTROCARDIOGRAM (07/16/2023 9:41 AM IT INFRASTRUCTURE SPECIALIST) 07/16/2023 9:41 AM IT INFRASTRUCTURE SPECIALIST Narrative [facility] - 07/24/2023 7:11 AM IT INFRASTRUCTURE SPECIALIST ? [facility] ?[address] [place], [place] ??[address] ? Test Date: ?2023-07-16 Pat Name: ? TAYLOR RUTLEDGE ?Department: ?? 105 ? Room: ? Gender: ? Male ? Pick Out Hand: ?? : ?1965 ? Requested By: CHRISTY MEEHAN Order Number: [id number] ?Reading MD: ?? [place] Quesada ? Measurements Intervals ?[place] ? Rate: ? 66 ? P: ?10 [place]: ? 188 ?QRS: ?7 QRSD: ? 101 ?T: ?-22 QT: ? 377 ? QTc: ?395 ? Interpretive Statements SINUS RHYTHM NONSPECIFIC ST & T-WAVE ABNORMALITY INFRASTRUCTURE SPECIALIST Procedure Note [place] Quesada MD - 07/24/[address] [facility] [address] [place] [address] Test Date: 2023-07-16 Pat Name: TAYLOR RUTLEDGE Department: 105 Room: Gender: Male Pick Out Hand: : 1965 Requested By: CHRISTY MEEHAN Order Number: [id number] Ranjan MD: [place] Quesada Measurements Intervals [place] Rate: 66 P: 10 [place]: 188 QRS: 7 QRSD: 101 T: -22 QT: 377 QTc: 395 Interpretive Statements SINUS RHYTHM NONSPECIFIC ST & T-WAVE ABNORMALITY INFRASTRUCTURE SPECIALIST us Christy Meehan MD PROCEDURES-ORDERABLE NO BEATA RGE Final Result [facility] documented in this encounter Visit Diagnoses Diagnosis Essential hypertension- Primary Unspecified essential hypertension Mild coronary artery disease- Primary Nonrheumatic aortic valve stenosis Aortic valve disorders LVH (left ventricular hypertrophy) Cardiomegaly Essential hypertension Unspecified essential hypertension History of CVA (cerebrovascular accident) Transient ischemic attack (TIA), and cerebral infarction without residual deficits Bilateral carotid artery stenosis Occlusion and stenosis of multiple and bilateral precerebral arteries without mention of cerebral infarction Hyperlipidemia, unspecified hyperlipidemia type documented in this encounter Care Teams Engraver Picture Relationship Specialty Start Date End Date Faisal Richardson DO [address] [place] [address] PCP - General FAMILY PRACTICE 11/29/22 Christy Meehan MD [place] Night Clerk CARDIOVASCULAR DISEASE 10/29/17 03/18/24 Brandie Jensen, BUSINESS PROCESS ASSOCIATE, FIRST LEVELER-C [address] [facility] [address] [place] [address] NURSE PRACTITIONER 02/08/21 Noé Crowley MD [address] [facility] [address] [place] [address] Surgeon ORTHOPAEDIC SURGERY 02/08/21 Jasper Figueroa MD [address] [facility] [place] [address] Surgeon NEUROLOGICAL SURGERY 12/08/21 Torrey Lafleur MD [address] [facility] [place] [address] ORTHOPAEDIC SURGERY 11/22/22 documented as of this encounter
--- OUTSIDE RECORDS SUMMARY | 2024-07-28 01:00 | XMS_ITS | Encounter Summary ---
Author Organization [facility] Address [address] [facility] [place] [address] [place] [address] Care Team Providers Care Early Breastfeeding Care Specialist Name Role Phone Shiv Meehan MD Unavailable Unavailabl e Brandie Jensen APRN, CONTRACT ADMINISTRATION COORDINATOR-C Unavailable [phone] Noé Crowley MD Unavailable [phone] Jasper Figueroa MD Unavailable [phone] Torrey Lafleur MD Unavailable Faisal Richardson DO Primary Care Provider [phone] Reason for Visit * Reason Onset Date Comments Reschedule 07/06/2023 Encounter Details Date Type Department Care Team ([facility] st Contact Info) Description 07/06/2023 Telephone [facility] [address] [place] [address] Brandie Jensen APRN, CONTRACT ADMINISTRATION COORDINATOR-C [address] [facility] [address] [place] [address] Reschedule Social History Tobacco Use Types Packs/Day Years [...] on file documented as of this encounter Progress Notes * Marlena Horta Cassandra - 07/06/2023 10:41 AM CST VM DATE/TIME:07/06/2023 at 9:20 am CALLER: pt(dayday) PH #: [phone] PROVIDER/NEW PT: Mikey REASON FOR CALL: pt called to reschedule his appt REQUEST HANDLED AND HOW: called pt back and got him rescheduled for 07/16/23 at 9:30 am DOWN documented in this encounter Plan of Treatment Upcoming Encounters Date Type Department Care Team (Late st Contact Info) Description 12/11/2024 2:00 PM CDT Office Visit [facility] [address] [place] [address] Brandie Jensen APRN, CONTRACT ADMINISTRATION COORDINATOR-C [address] [phone] documented as of this encounter Visit Diagnoses Not on filedocumented in this encounter Care Teams Early Breastfeeding Care Specialist Relationship Specialty Start Date End Date Faisal Richardson DO [address] [place] [address] PCP - General FAMILY PRACTICE 11/29/22 Shiv Meehan MD [place] [employer] Supervisor CARDIOVASCULAR DISEASE 10/29/17 03/18/24 Brandie Jensen APRN, CONTRACT ADMINISTRATION COORDINATOR-C [address] [address] NURSE PRACTITIONER 02/08/21 Noé Crowley MD [address] [facility] [address] [place] [address] Surgeon ORTHOPAEDIC SURGERY 02/08/21 Jasper Figueroa MD [address] [facility] [address] [place], [place] [address] Surgeon NEUROLOGICAL SURGERY 12/08/21 Torrey Lafleur MD [address] [facility] Orthopaedic [place], [place] [address] ORTHOPAEDIC SURGERY 11/22/22 documented as of this encounter
--- OUTSIDE RECORDS SUMMARY | 2024-07-28 01:00 | XMS_ITS | Encounter Summary ---
Author Organization [facility] Address [address] [facility] [place] [address] [place] [address] Care Team Providers Care Superintendent [employer]crete Mixing [employer] Name Role Phone Shiv Meehan MD Unavailable Unavailabl e Brandie Jensen APRN, ESL INSTRUCTIONAL ASSISTANT-C Unavailable Noé Crowley MD Unavailable [phone] Jasper Figueroa MD Unavailable [phone] Torrey Lafleur MD Unavailable [phone] Faisal Richardson DO Primary Care Provider [phone] Encounter Details Date Type Department Care Team (Latest Contact Info) Description 12/11/2023 Travel Social History Tobacco Use Types Packs/Day [...] Upcoming Encounters Date Type Department Care Team ( Contact Info) Description 12/11/2024 2:00 PM CDT Office Visit [facility] el[facility] [address] [place] [address] Brandie Jensen APRN, ESL INSTRUCTIONAL ASSISTANT-C [address] [facility] [address] [place] [address] documented as of this encounter Visit Diagnoses Not on filedocumented in this encounter Care Teams Superintendent Concrete Mixing Plant Relationship Specialty Start Date End Date DebraFaisalDO [address] [place] [address] PCP - General FAMILY PRACTICE 11/29/22 Shiv Meehan MD [place] [employer]de Cleaning Machine Operator CARDIOVASCULAR DISEASE 10/29/17 03/18/24 Brandie Jensen, AIRCRAFT NAVIGATOR, ESL INSTRUCTIONAL ASSISTANT-C [address] [facility] [address] [place] [address] NURSE PRACTITIONER 02/08/21 Noé Crowley MD [address] [facility] [address] [facility] [address] [place] [address] Surgeon ORTHOPAEDIC SURGERY 02/08/21 Jasper Figueroa MD [address] [facility] [address] [place] [address] Surgeon NEUROLOGICAL SURGERY 12/08/21 Torrey Lafleur MD [address] [facility] [place] [address] ORTHOPAEDIC SURGERY 11/22/22 documented as of this encounter
--- OUTSIDE RECORDS SUMMARY | 2024-07-28 01:00 | XMS_ITS | Encounter Summary ---
Author Organization [facility] Address [address] [place] [address] [place] [address] Care Team Providers Care Customer Service Professional Name Role Phone Christy Meehan MD Unavailable Unavailabl e Brandie Jensen APRN, PROGRAM MANAGEMENT PROFESSIONAL-C Unavailable Noé Crowley MD Unavailable [phone] Jasper Figueroa MD Unavailable [phone] Torrey Lafleur MD Unavailable [phone] Faisal Richardson DO Primary Care Provider [phone] Encounter Details Date Type Department Care Team (Late st Contact Info) Description 12/11/2023 Orders Only [facility] [address] [place] [phone] Christy Meehan MD Social History Tobacco Use [...] Description 12/11/2024 2:00 PM CDT [facility] [address] [place] [id number] Brandie Jensen APRN, PROGRAM MANAGEMENT PROFESSIONAL-C [address] [facility] [address] [place] [address] documented as of this encounter Procedures Procedure Name Priority Date/Time Associated Diagnosis Comments ELECTROCARDIOGRAM (NON MIDMARK ACQUIRED) Routine 12/11/2023 9:10 AM CDT Mild coronary artery disease Essential hypertension documented in this encounter Results * ELECTROCARDIOGRAM (12/11/2023 9:10 AM CDT) 12/11/2023 9:10 AM CDT Narrative [facility] - 12/11/2023 7:55 PM CDT ? [facility] ?[address], [place] ??[address] ? Test Date: ?2023-12-11 Pat Name: ? TAYLOR RUTLEDGE ?Department: ?? 105 ? Room: ? Gender: ? Male ? Community Organization Aide: ?? : ?1965 ? Requested By: CHRISTY MEEHAN Order Number: [id number] ?Reading MD: ?? Christy Meehan ? Measurements Intervals ?[place] ? Rate: ? 63 ? P: ?14 SC: ? 180 ?QRS: ?8 QRSD: ? 98 ? T: ?-27 QT: ? 392 ? QTc: ?404 ? Interpretive Statements SINUS RHYTHM NONSPECIFIC ST & T-WAVE ABNORMALITY, CONSIDER INFEROLATERAL ISCHEMIA EARLY REPOLARIZATION ABNORMALITY in LATERAL LEADS Procedure Note Christy Meehan MD - 12/11/2023 [facility] [address] [place] [address] Test Date: 2023-12-11 Pat Name: TAYLOR RUTLEDGE Department: 105 Room: Gender: Male Community Organization Aide: : 1965 Requested By: CHRISTY MEEHAN Order Number: [id number] Reading MD: Christy Meehan Measurements Intervals [place] Rate: 63 P: 14 SC: 180 QRS: 8 QRSD: 98 T: -27 QT: 392 QTc: 404 Interpretive Statements SINUS RHYTHM NONSPECIFIC ST & T-WAVE ABNORMALITY, CONSIDER INFEROLATERAL ISCHEMIA EARLY REPOLARIZATION ABNORMALITY in LATERAL LEADS us Christy Meehan MD PROCEDURES-ORDERABLE NO BEATA [...] arteries and arterioles Hyperlipidemia, unspecified hyperlipidemia type Mild coronary artery disease- Primary Essential hypertension Unspecified essential hypertension documented in this encounter Care Teams Customer Service Professional Relationship Specialty Start Date End Date Faisal Richardson DO [address] [place] [address] PCP - General FAMILY PRACTICE 11/29/22 Christy Meehan MD [place] [employer] Machine Interface Engineer CARDIOVASCULAR DISEASE 10/29/17 03/18/24 Brandie Jensen, RECYCLABLE MATERIALS SORTER, PROGRAM MANAGEMENT PROFESSIONAL-C [address] [facility] [address] [place] [address] NURSE PRACTITIONER 02/08/21 Noé Crowley MD [address] [facility] [address] [place] [address] Surgeon ORTHOPAEDIC SURGERY 02/08/21 Jasper Figueroa MD [address] [facility] [place] [address] Surgeon NEUROLOGICAL SURGERY 12/08/21 Torrey Lafleur MD [address] [facility] [place] [address] ORTHOPAEDIC SURGERY 11/22/22 documented as of this encounter
--- OUTSIDE RECORDS SUMMARY | 2024-07-28 01:00 | XMS_ITS | Encounter Summary ---
Author Organization [facility] Address [address] [place] [address] Care Team Providers Care Supervisor Feed House Name Role Phone Faisal Richardson DO Primary Care Provider Reason for Visit * Auth/Cert (Routine) Specialty Diagnoses / Procedures Referred By Contac t Referred To Contact Diagnoses Diagnosis unknown Diagnosis unknown [R69] Procedures ARTHROPLASTY TOTAL HIP REVISION Referral ID Status Reason Start Date Expiration Date Visits Re quested Visits Authorized [id number] 1 1 Encounter Details Date Type Department Care Team (Late st Contact Info) Description 12/08/2022 10:16 AM CDT - 12/08/2022 1:46 PM CDT Surgery [facility] PERIOPERATIVE [address] [place] [address] Torrey Lafleur MD [address] [address] REVISION RIGHT TOTAL HIP ARTHROPLASTY BOTH COMPONENTS, REMOVAL OF ANTIBIOTIC SPCER RIGHT HIP Surgery Details Date/Time Status Location OR Service Patient Class Case Class Case Type Trauma Case? 12/08/2022 10:16 AM Posted [facility] MAIN OR OR 03 Orthopedics Surgery Day Care Over Night Elective > 5 days Panel 1 Procedure LRB Anes Op Region Wound Class Comments REVISION RIGHT TOTAL HIP ART HROPLASTY BOTH COMPONENTS, REMOVAL OF ANTIBIOTIC SPCER RIGHT HIP Right General Hip Clean PREVENA/ WOUND VAC APPLICATION RIGHT HIP Right General Hip Clean Surgeon Surgeon Role Service Panel Torrey Lafleur MD Primary Orthopedics 1 Special Needs NEEDS 12 C-ARM, OLD JESÚS TABLE WITH PEGBOARD, O.R. ROOM # 3, [facility] (TATA Kimble # [phone]) NOTIFIED BY SURGEON PER OFFICE (VELIA)--11/23 KW documented in this encounter Social History [...] Sign Reading Time Taken Comments Blood Pressure 149/87 12/08/2022 8:44 AM CDT Pulse 68 12/08/2022 8:44 AM CDT Temperature 36.6 ??C (97.8 ??F) 12/08/2022 8:44 AM CD T Respiratory Rate 16 12/08/2022 8:44 AM CDT Oxygen Saturation 96% 12/08/2022 8:44 AM CDT Inhaled Oxygen Concentration - - [...] HYDROcodone-acetaminophen 5-325 MG tablet Commonly known as: [place] Quantity Dispensed: 42 tablet Take 1 (one) [...] mouth 2 times daily ergocalciferol 1.25 MG (23607 UT) capsule Commonly known as: Drisdol Take [...] tub soaks. No scrubbing around incision. Call [phone] to schedule the first follow-up appointment with [...] MG/0.5ML injection 10/17/2021 ergocalciferol (Drisdol) 1.25 MG (41461 UT) capsule Take 1 (one) capsule by [...] daily 70 tablet 12/09/2022 12/16/2022 HYDROcodone-acetaminoph en ([place]) 5-325 MG tabletIndications:S/P total right hip arthroplasty [...] for PT goals. Roldan Mahmood, PT * June Palomino, OT - 12/09/2022 10:55 AM CDT Occupational [...] - Right Upper Extremity: Within Functional Limits Sugar Cane Planter Strength - Right Upper Extremity: WFL LUE Assessment: AROM - Left Upper Extremity: Within Functional Limits Strength - Left Upper Extremity: Within Functional Limits Sugar Cane Planter Strength - Left Upper Extremity: WFL: Basic ADL's: per functional observation and clinical judgement Feeding: Complete [place] Oral Facial Hygiene: Stand By Assist Bathing: [...] Provided patient with LHAE including sock aid, flatwork assembler, LH sponge, and LH shoe horn. Provided [...] place and intact pre and post visit. RNRubia, notified of patient's performance/location end of session. [...] this serves as the discharge summary. June OLIVEIRA 7377 * Blaire Vogt MD - 12/09/2022 [...] Blaire Vogt MD 12/09/2022 8:17 AM Pager: [phone] Please give the following instructions to the [...] soaks. No scrubbing around incision. ?? Call [phone] to schedule the first follow-up appointment with [...] Ciarra Vogt MD 12/08/2022 2:57 PM Pager: [phone] If you have any questions about the orthopedic care of this patient, please page me at the number above between the hours of 6am-5pm. If it is outside these hours, please page the orthopedic surgery resident home demonstrator. Please give the following instructions to the [...] soaks. No scrubbing around incision. ?? Call [phone] to schedule the first follow-up appointment with Dr. Lafleur in 3 week(s) or for any questions * Guille Mas - 11/30/2022 3:37 PM CDT Home Health Agency: [facility] Confirmed: 11/30/2022 Start Date: 12/09/2022 Contact: Dee [phone] documented in this encounter H&P Notes * Torrey Lafleur MD - 12/08/2022 6:43 AM CDT [facility] Orthopedic Adult Reconstruction Surgery H&P Note Jose Rutledge, 57 year old, male : 1965 [facility]: [id number] Diagnosis/Procedures 1.) 57 year old male with [...] leg syndrome ??? Sleep apnea ??? Stroke ([facility]) 2021 balance residual ??? Type 2 diabetes mellitus without complications ([facility]) PSHx Past Surgical History: Procedure Laterality Date [...] MG/0.5ML injection ??? ergocalciferol (Drisdol) 1.25 MG (66991 UT) capsule ??? ferrous sulfate 325 (65 [...] MG/0.5ML injection ??? ergocalciferol (Drisdol) 1.25 MG (30572 UT) capsule Take 1 (one) capsule by [...] Simmons RN - 12/08/2022 9:07 AM CDT [facility] is out of service area with patient's zip code, and therefore is unable to accept patient for home health services. Please see Guille's note for refer out information. Thank you. Dianne Simmons Central lithographic camera operator [facility] [phone] documented in this encounter OR Notes * [...] Role: * Torrey Lafleur MD - Primary Aoc Director Combat Operations Officer(s): Blaire Vogt MD - Resident - Assisting [...] Implant Name Type Inv. Item Serial No. Packer Sausage And Wiener Lot No. LRB No. Used Action Shell Actb 62Mm Hip 3 Hl Por R3 Shell Actb 62Mm Hip 3 Hl Por R3 [employer] [id number] Right 1 Implanted Screw 6.5Mm 25Mm Hip Actb Canc Sphrcl Screw Screw 6.5Mm 25Mm Hip Actb Canc Sphrcl [employer] [id number] Right 1 Implanted Cable Orth Cocr 2Mm 75Mm Troch Clp Cable Cable Orth Cocr 2Mm 75Mm Troch Clp [employer] [id number] Right 1 Implanted Liner Actb R3 0D 62Mm 44Mm Xlpe Liner Actb R3 0D 62Mm 44Mm Xlpe [employer] [id number] Right 1 Implanted FEM HIGH OFFSET SLEEVED STEM 17H X 240MM [employer] Orthopaedics [id number] Right 1 Implanted Head Fem 44Mm Mdlr Tl Oxnm Head Fem 44Mm Mdlr Tl Oxnm [employer] [id number] Right 1 Implanted SLV FEM ANTHOLOGY +4 TPR HIP TI Pros Fem Mtl Por Uncemented Smcnstr [employer] [id number] Right 1 Implanted Slv Centering 50Mm 20-23Mm Redapt 16-17 Slv Centering 50Mm 20-23Mm Redapt 16-17 [employer] [id number] Right 1 Implanted Blaire Vogt MD * Operative - Torrey Lafleur MD - 12/08/2022 11:17 AM CDT DATE OF SURGERY: 12/08/2022 Jose Rutledge [id number] PREOP DX: Status post removal of infected [...] wound at risk SURGEON: Omar Lafleur MD KNITTING MACHINE TENDER(S): Blaire Vogt MD ANESTHESIA: GET INDICATIONS FOR [...] suctioned. The stem was then impacted size [id number]. The head was then placed size 44+4. [...] Implant Name Type Inv. Item Serial No. Packer Sausage And Wiener Lot No. LRB No. Used Action Shell Actb 62Mm Hip 3 Hl Por R3 Shell Actb 62Mm Hip 3 Hl Por R3 [employer] [id number] Right 1 Implanted Screw 6.5Mm 25Mm Hip Actb Canc Sphrcl Screw Screw 6.5Mm 25Mm Hip Actb Canc Sphrcl [employer] [id number] Right 1 Implanted Cable Orth Cocr 2Mm 75Mm Troch Clp Cable Cable Orth Cocr 2Mm 75Mm Troch Clp [employer] [id number] Right 1 Implanted Liner Actb R3 0D 62Mm 44Mm Xlpe Liner Actb R3 0D 62Mm 44Mm Xlpe [employer] [id number] Right 1 Implanted FEM HIGH OFFSET SLEEVED STEM 17H X 240MM [employer] Orthopaedics [id number] Right 1 Implanted Head Fem 44Mm Mdlr Tl Oxnm Head Fem 44Mm Mdlr Tl Oxnm [employer] [id number] Right 1 Implanted SLV FEM ANTHOLOGY +4 TPR HIP TI Pros Fem Mtl Por Uncemented Smcnstr [employer] [id number] Right 1 Implanted Slv Centering 50Mm 20-23Mm Redapt 16-17 Slv Centering 50Mm 20-23Mm Redapt 16-17 [employer] [id number] Right 1 Implanted COUNTS: Sponge and needle [...] 0.22 with 30 percent increased billing Torrey Zayas. MD Ciarra documented in this encounter Plan of Treatment Upcoming Encounters Date Type Department Care Team (Late st Contact Info) Description 01/20/2025 10:00 AM CDT Office Visit [facility] - Orthopedic Surgery [facility] [place] [address] Torrey Lafleur MD [facility] [address] [address] Scheduled Referrals Name Type Priority Associated Diagnoses [...] 3, [facility]--[facility]P. (TATA Kimble # [phone]) NOTIFIED BY SURGEON PER OFFICE (VELIA)--11/23 KW ARTHROPLASTY TOTAL HIP REVISION 12/08/2022 9:51 AM CDT Diagnosis unknown Special Needs NEEDS 12 C-ARM, OLD JESÚS TABLE WITH PEGBOARD, O.R. ROOM # 3, [facility] (TATA Kimble # [phone]) NOTIFIED BY SURGEON PER OFFICE (VELIA)--11/23 KW [...] AM CDT) Unit Description AS1 LR PRBC [facility] Unit ABO O [facility] Unit Rh POS [facility] Product Number R02 [facility] Unit Donor # [id number] [facility]OD [facility] Unit Status released [facility] OD BANK LAB Product Code [id number] [facility] BL OOD [facility]ANK LAB Blood Type Barcode 5100 [facility] Expiration Date [id number] [facility] BLOOD [facility] Unit Description AS1 LR PRBC [facility] Unit ABO O [facility] Unit Rh POS [facility] Product Number R02 [facility] Unit Donor # [id number] [facility] B[facility]OD [facility] Unit Status released [facility] OD BANK LAB Product Code [id number] [facility] BL OOD [facility] Blood Type Barcode 5100 [facility] Expiration Date [facility] Unit Description AS1 LR PRBC [facility] Unit ABO O [facility] Unit Rh POS [facility] Product Number R02 [facility] Unit Donor # [id number] [facility] BLOOD [facility] Unit Status released [facility] OD BANK LAB Product Code [id number] [facility] BL OOD [facility] Blood Type Barcode 5100 [facility] Expiration Date [facility] Unit Description AS1 LR PRBC [facility] Unit ABO O [facility] Unit Rh POS [facility] Product Number R02 [facility] Unit Donor # [id number] [facility] BLOOD [facility] Unit Status released [facility] OD BANK LAB Product Code [id number] [facility] BL OOD [facility] Blood Type Barcode 5100 [facility] Expiration Date [facility] BLOOD BANK LAB Blood Bank BLOOD SPECIMEN / Unknown 11/27/2022 10:14 AM CDT Sunitha Fung MD LAB - BLOOD BANK ORD ERABLES Performing Organization Address City/[facility] Co de Phone Number [facility] [address] [place] [address] * (ABNORMAL) GLUCOSE - POINT OF CARE (12/09/2022 11:55 AM CDT) Glucose WB/POC 170(H) 70 - 106 mg/dL 12/09/2022 12:40 PM CDT [facility] Specimen Type Cap Fingerstick 2022 12:40 PM CDT [facility] Blood BLOOD SPECIMEN / Unknown 12/09/2022 11:55 AM CDT 12/09/2022 12:40 PM CDT Torrey Lafleur MD LAB - POINT OF CARE ORDERABLES [facility] [address] [place] [address] * (ABNORMAL) GLUCOSE - POINT OF CARE (12/09/2022 7:22 AM CDT) Pathologist [facility] Glucose WB/POC 167(H) 70 - 106 mg/dL 12/09/2022 7:27 AM CDT [facility] Specimen Type Cap Fingerstick 2022 7:27 AM CDT [facility] Blood BLOOD SPECIMEN / Unknown 12/09/2022 7:22 AM CDT 12/09/2022 7:27 AM CDT Torrey Lafleur MD LAB - POINT OF CARE ORDERABLES Performing Organization Address [facility] Co de Phone Number [facility] [address] [place] [address] * (ABNORMAL) HGB HCT PANEL (12/09/2022 3:11 AM CDT) [facility] Hemoglobin 8.3(L) 12.0 - 17.6 gm/dL 12/09/2022 4:21 AM CDT [facility] Hematocrit 23.8(L) 35.2 - 51.7 % 12/09/2022 4:21 AM CDT [facility] Blood BLOOD SPECIMEN / Unknown Lab Venipuncture / Unknown 12/09/2022 3:11 AM CDT 12/09/2022 3:53 AM CDT Torrey Lafleur MD LAB - HEMATOLOGY OR DERABLES [facility] [address] [place] [address] * (ABNORMAL) GLUCOSE - POINT OF CARE (12/08/2022 9:06 PM CDT) Pathologist [facility] Glucose WB/POC 190(H) 70 - 106 mg/dL 12/08/2022 9:16 PM CDT [facility] Specimen Type Cap Fingerstick 2022 9:16 PM CDT [facility] Blood BLOOD SPECIMEN / Unknown 12/08/2022 9:06 PM CDT 12/08/2022 9:16 PM CDT Torrey Lafleur MD LAB - POINT OF CARE ORDERABLES Performing Organization Address City/[facility]/ZIP Co de Phone Number [facility] [address] [place] [address] * (ABNORMAL) GLUCOSE - POINT OF CARE (12/08/2022 5:39 PM CDT) [facility] Glucose WB/POC 173(H) 70 - 106 mg/dL 12/08/2022 5:49 PM CDT [facility] Specimen Type Cap Fingerstick 2022 5:49 PM CDT [facility] Blood BLOOD SPECIMEN / Unknown 12/08/2022 5:39 PM CDT 12/08/2022 5:49 PM CDT Torrey Lafleur MD LAB - POINT OF CARE ORDERABLES Performing Organization Address City/[facility] Co de Phone Number [facility] [address] [place] [address] * XR PELVIS 1 OR 2VW (12/08/2022 3:34 PM CDT) Anatomical Region Laterality Modality Pelvis Radiographic Sabi ging 12/08/2022 3:36 PM CDT Narrative 12/08/2022 3:38 PM CDT Procedure: XR PELVIS 1 OR 2VW ??Exam Date: ??12/08/2022 3:35 PM ?? Location: ??[facility] Indication: Z96.641: Presence of right artificial hip [...] OR 2VW Exam Date: 12/08/2022 3:35 PM Location:[facility] Indication: Z96.641: Presence of right artificial hip [...] OF CARE (12/08/2022 3:04 PM CDT) Pathologist [facility] Glucose WB/POC 203(H) 70 - 106 mg/dL 12/08/2022 3:14 PM CDT [facility] Specimen Type Cap Fingerstick 2022 3:14 PM CDT [facility] Blood BLOOD SPECIMEN / Unknown 12/08/2022 3:04 PM CDT 12/08/2022 3:14 PM CDT Torrey Lafleur MD LAB - POINT OF CARE ORDERABLES [facility] [address] [place] [address] * FL ABBIE SURGERY (12/08/2022 2:15 PM CDT) Narrative [facility] RADIOLOG[facility] - 12/08/2022 2:16 PM CDT For details of this study, please see the providers note. Torrey Lafleur MD FLUOROSCOPY ORDERAB LES [facility] [address] [place] [address] * (ABNORMAL) BLOOD GASES ART + LYTES GLU CA+ HH (ISTAT) (12/08/2022 1:29 PM CDT) pH Arterial POCT 7.35 7.35 - 7.45 pH 12/13/2022 9:37 AM [facility] pCO2 Arterial 41.6 35 - 45 mm hg 12/13/2022 9:37 AM [facility] pO2 Arterial 300(H) 80 - 100 mm hg 12/13/2022 9:37 AM [facility] HCO3 Arterial POCT 23.2 22 - 26 mmol/L 12/13/2022 9:37 AM [facility] BE Arterial -2 -2 - 2 mmol/L 12/13/2022 9:37 AM [facility] TCO2 Arterial Calc POCT 24 23 - 27 mmol/L 12/13/2022 9:37 AM [facility] O2 Saturation Arterial 100 90 - 100 % 12/13/2022 9:37 AM [facility] Sodium Arterial 135(L) 136 - 145 mmol/L 12/13/2022 9:37 AM [facility] Potassium Arterial 4.1 3.5 - 5.1 mmol/L 12/13/2022 9:37 AM [facility] Calcium Ionized Arterial POCT 1.19 1.12 - 1.32 mmol/L 12/13/2022 9:37 AM [facility] Glucose Arterial POCT 213(H) 74 - 106 mg/dL 12/13/2022 9:37 AM [facility] Hemoglobin Arterial POCT 9.2(L) 12.0 - 17.6 gm/dL 12/13/2022 9:37 AM [facility] Hematocrit Arterial POCT 27.0(L) 35.2 - 51.7 % 12/13/2022 9:37 AM [facility] Site R Radial 12/13/2022 9:37 AM [facility] Sample iSTAT ART 12/13/2022 9:37 AM [facility] Blood, arterial ARTERIAL BLOOD SPECIMEN / Unknown 12/08/2022 1:29 PM CDT 12/13/2022 9:37 AM [facility] Torrey Lafleur MD LAB - POINT OF CARE ORDERABLES [facility] [address] [place] [address] * (ABNORMAL) BLOOD GASES ART + LYTES GLU CA+ HH (ISTAT) (12/08/2022 12:32 PM CDT) pH Arterial POCT 7.36 7.35 - 7.45 pH 12/13/2022 9:37 AM [facility] pCO2 Arterial 40.5 35 - 45 mm hg 12/13/2022 9:37 AM [facility] pO2 Arterial 297(H) 80 - 100 mm hg 12/13/2022 9:37 AM [facility] HCO3 Arterial POCT 23.1 22 - 26 mmol/L 12/13/2022 9:37 AM [facility] BE Arterial -2 -2 - 2 mmol/L 12/13/2022 9:37 AM [facility] TCO2 Arterial Calc POCT 24 23 - 27 mmol/L 12/13/2022 9:37 AM [facility] O2 Saturation Arterial 100 90 - 100 % 12/13/2022 9:37 AM [facility] Sodium Arterial 137 136 - 145 mmol/L 12/13/2022 9:37 AM [facility] Potassium Arterial 4.0 3.5 - 5.1 mmol/L 12/13/2022 9:37 AM [facility] Calcium Ionized Arterial POCT 1.20 1.12 - 1.32 mmol/L 12/13/2022 9:37 AM [facility] Glucose Arterial POCT 154(H) 74 - 106 mg/dL 12/13/2022 9:37 AM [facility] Hemoglobin Arterial POCT 10.2(L) 12.0 - 17.6 gm/dL 12/13/2022 9:37 AM [facility] Hematocrit Arterial POCT 30.0(L) 35.2 - 51.7 % 12/13/2022 9:37 AM [facility] Site R Radial 12/13/2022 9:37 AM [facility] Sample iSTAT ART 12/13/2022 9:37 AM [facility] Blood, arterial ARTERIAL BLOOD SPECIMEN / Unknown 12/08/2022 12:32 PM CDT 12/13/2022 9:37 AM CDT Torrey Lafleur MD LAB - POINT OF CARE ORDERABLES Performing Organization Address City/[facility] Co de Phone Number [facility] [address] [place] [address] * CULTURE WOUND+GRAM STAIN (12/08/2022 11:24 AM CDT) Culture No growth MONALISA 12/10/2022 10:44 PM CDT [facility] Gram Stain No organisms seen 023 10:44 PM CDT [facility] Gram Stain Rare Polymorphonuclear cells 12/10/2022 10:44 PM CDT [facility] Microbiology ENTIRE HIP REGION / Unknown 12/08/2022 11:24 AM CDT 12/08/2022 3:28 PM CDT Comment:Pre-op diagnosis: Diagnosis unknown [R69] Torrey Lafleur MD LAB - MICROBIOLOGY ORDERABLES Performing Organization Address [facility] Co de Phone Number [facility] [address] [place] [address] [phone] * CULTURE ANAEROBE (12/08/2022 11:24 AM CDT) Culture No anaerobic organisms isolated MONALISA 12/14/2022 10:51 AM CDT [facility] Microbiology ENTIRE HIP REGION / Unknown 12/08/2022 11:24 AM CDT 12/08/2022 3:28 PM CDT Comment:Pre-op diagnosis: Diagnosis unknown [R69] Torrey Lafleur MD LAB - MICROBIOLOGY ORDERABLES Performing Organization Address City/[facility] Co de Phone Number [facility] [address] [place] [address], [facility] [phone] * (ABNORMAL) CBC W AUTO DIFFERENTIAL (12/08/2022 8:35 AM CDT) WBC 6.3 4.4 - 10.7 x10E9/L 12/08/2022 9:30 AM CDT [facility] WBC Corrected 12/08/2022 9:30 AM [facility] RBC 3.78(L) 3.80 - 5.40 x10E12/L 12/08/2022 9:30 AM [facility] Hemoglobin 12.4 12.0 - 17.6 gm/dL 12/08/2022 9:30 AM [facility] Hematocrit 36.2 35.2 - 51.7 % 12/08/2022 9:30 AM [facility] MCV 95.8 80.7 - 98.3 fl 12/08/2022 9:30 AM [facility] MCH 32.8 26.7 - 34.0 pg 12/08/2022 9:30 AM [facility] MCHC 34.3 30.8 - 35.9 gm/dL 12/08/2022 9:30 AM [facility] Platelet Count 130(L) 153 - 416 x10E9/L 12/08/2022 9:30 AM [facility] RDW-CV 13.5 12.1 - 14.9 % 12/08/2022 9:30 AM [facility] MPV 9.7 9.4 - 12.9 fl 12/08/2022 9:30 AM [facility] Neutrophils % 58.6 44.0 - 73.0 % 12/08/2022 9:30 AM [facility] Lymphocytes % 26.6 20.0 - 43.0 % 12/08/2022 9:30 AM [facility] Monocytes % 12.1 5.0 - 13.0 % 12/08/2022 9:30 AM [facility] Eosinophils % 1.6 0.0 - 6.0 % 12/08/2022 9:30 AM [facility] Basophils % 0.5 0.0 - 2.0 % 12/08/2022 9:30 AM [facility] Immature Granulocytes 0.6 0 - 1 % 12/08/2022 9:30 AM [facility] Neutrophil Absolute 3.69 2.01 - 7.14 x10E9/L 12/08/2022 9:30 AM [facility] Lymphocytes Absolute 1.67 1.07 - 3.94 x10E9/L 12/08/2022 9:30 AM CDT [facility] Monocytes Absolute 0.76 0.26 - 1.07 x10E9/L 12/08/2022 9:30 AM CDT [facility] Eosinophils Absolute 0.10 0 - 0.47 x10E9/L 12/08/2022 9:30 AM CDT [facility] Basophils Absolute 0.03 0 - 0.08 x10E9/L 12/08/2022 9:30 AM CDT [facility] Immature Granulocytes Absolute 0.04 0.00 - 0.06 x10E9/L 12/08/2022 9:30 AM CDT [facility] nRBC Auto 0 /100 WBC 12/08/2022 9:30 AM CDT [facility] Blood BLOOD SPECIMEN / Unknown Venipuncture / Unknown 12/08/2022 8:35 AM CDT 12/08/2022 9:11 AM CDT Sunitha Fung MD LAB - HEMATOLOGY ORD ERABLES Performing Organization Address [facility] Co de Phone Number [facility] [address] [place] [phone] * (ABNORMAL) GLUCOSE - POINT OF CARE (12/08/2022 8:33 AM CDT) [facility] Glucose WB/POC 140(H) 70 - 106 mg/dL 12/08/2022 8:43 AM CDT [facility] Specimen Type Cap Fingerstick 2022 8:43 AM CDT [facility] Blood BLOOD SPECIMEN / Unknown 12/08/2022 8:33 AM CDT 12/08/2022 8:43 AM CDT Torrey Lafleur MD LAB - POINT OF CARE ORDERABLES Performing Organization Address [facility] Co de Phone Number [facility] [address] [place] [id number] documented in this encounter Visit Diagnoses Diagnosis S/P total right hip arthroplasty- Primary Pre-op testing Preoperative examination, unspecified Pain Generalized pain Diagnosis unknown Other unknown and unspecified cause of morbidity or mortality Diagnosis unknown Other unknown and unspecified cause [...] Bag/Syringe 12/08/2022 9:34 PM CDT 250 mL 0.9% NaCl irrigation 1,000 mL with povidone-iodine (Betadine) 35 mL irrigation PRN, Starting on Sun12/08/22 at 1230, Until Sun12/08/22 at 1449, Intra-op $ Given 12/08/2022 1:57 PM CDT 1,035 mL Operative Site $ Given 12/08/2022 12:30 PM CDT 1,035 mL O perative Site acetaminophen (Tylenol) tablet 1,000 mg 1,000 mg, [...] Spasms, Starting on Sun12/08/22 at 1726, Until Sun12/09/22 at 1440 $ Given 12/08/2022 5:36 PM CDT 10 mg dextrose 10 % IV bolus 12.5 g, at 999 mL/hr, Intravenous, PRN, Other, Bedside Glucose less than 70 mg/dL -If NOT able to eat and/or NPO and with IV Access, Starting on Sun12/08/22 at 1704, Until Sun12/09/22 at 1440, If NOT able to eat [...] Given 12/08/2022 9:16 PM CDT 50 mg vancomycin (Vancocin) 1 g in 0.9% NaCl irrigation 3,000 mL irrigation PRN, Starting on Sun12/08/22 at 1259, Until Sun12/08/22 at 1449, Intra-op $ Given 12/08/2022 12:59 PM CDT 3,000 mL Operative Site vancomycin (Vancocin) injection PRN, Starting on Sun12/08/22 at 1417, Until Sun12/08/22 at 1449, Intra-op $ Given 12/08/2022 2:17 PM CDT 1 g Ope rative Site documented in this encounter [...] 5 mg, Oral, DAILY, First dose on Sun12/09/22 at 0900, Until Discontinued 0805 (Not Administer ed - Provider: Rubia Stevens RN - Reason: Patient Condition - Comment: bp 90/54) aspirin chew tablet 81 mg 81 mg, Oral, 2 TIMES DAILY, First dose on Sun12/09/22 at 0900, Until Discontinued 0811 ($ Given - Provider: Rubia Stevens, ANA) carvedilol (Coreg) tablet 25 mg 25 mg, Oral, 2 TIMES DAILY, First dose on Sun12/08/22 at 2100, Until Discontinued, Take with food 2116 ($ Given - Provider: Black Taveras RN) [...] Provider: FERN Medina)1331 ($ Given - Provider: Roxanne A Oliver, TRANSPORTATION INSPECTOR-CARDIOLOGIST - Comment: per surgeon request) celecoxib (CeleBREX) [...] Discontinued 08 ($ Given - Provider: Rubia Stevens RN) docusate sodium (Colace) capsule 100 mg 100 mg, Oral, DAILY, First dose on Sun12/08/22 at 1715, Until Discontinued 173 ($ Given - Provider: Rubia Stevens RN) 0804 ($ Given - Provider: Rubia Stevens RN) famotidine (Pepcid) tablet 20 mg 20 mg, Oral, DAILY, First dose on Sun12/08/22 at 1715, Until Discontinued 173 ($ Given - Provider: Rubia Stevens RN) 0804 ($ Given - Provider: Rubia Stevens RN) gentamicin (Garamycin) 400 mg in 0.9% NaCl [...] on Sun12/09/22 at 0900, Until Discontinued 08 (Not Administer [...] 1100 ($ Given - Provider: Roxanne Oliver APRN-CARDIOLOGIST) polyethylene glycol 3350 (Miralax) packet 17 g 17 g, Oral, DAILY, First dose on Sun12/08/22 at 1715, Until Discontinued, Mix in 8 ounces of water, juice, soda, coffee or tea prior to administration 173 (Not Administered - Provider: Rubia Stevens RN - Reason: Refused-Patient) 0805 ($ Given - Provider: Rubia Stevens, ANA) pregabalin (Lyrica) capsule 50 mg 50 mg, Oral, 2 TIMES DAILY, First dose on Sun12/08/22 at 2100, Until Discontinued 2115 ($ Given - Provider: Black Taveras RN) 0804 ($ Given - Provider: Rubia Stevens, RN) rosuvastatin (Crestor) tablet 40 mg 40 mg, Oral, EVERY MORNING, First dose on Sun12/08/22 at 2100, Until Discontinued 2115 ($ Given - Provider: Black Taveras RN) 0601 ($ Given - Provider: Black Taveras, RN) sertraline (Zoloft) tablet 50 mg 50 mg, Oral, DAILY, First dose on Sun12/08/22 at 1800, Until Discontinued, Avoid concurrent administration with grapefruit juice 2115 ($ Given - Provider: Black Taveras RN) 08 ($ Given - Provider: Rubia Stevens, ANA) tranexamic acid (Cyklokapron) 1,000 mg in 0.9% [...] FERN Medina)1324 ($ New Bag/Syringe - Provider: FERN Medina)1426 ($ New Bag/Syringe - Provider: FERN Medina) [...] request must be documented in the MAR. 1736 ($ Given - Provider: Rubia Stevens RN) cyclobenzaprine (Flexeril) tablet 10 mg 10 mg, Oral, 2 TIMES DAILY PRN, Muscle Spasms, Starting on Sun12/08/22 at 1726, Until 12/09/22 at 1440 1736 ($ Given - Provider: Rubia Stevens RN) dextrose 10 % IV bolus(Linked Group [...] difficulties, Starting on Sun12/08/22 at 1704, Until Sun12/09/22 at 1440, If able to eat and [...] request must be documented in the OCT. 2058 ($ Given - Provider: Black Taveras [...] request must be documented in the MAR. 2218 ($ Given - Provider: Black Taveras RN) 0208 ($ Given - Provider: Black Taveras RN)0803 ($ Given - Provider: Rubia Stevens, ANA)1204 ($ Given - Provider: Rubia Stevens, ANA) [...] request must be documented in the OCT. 161 ($ Given - Provider: Lea Martin, ANA) vancomycin (Vancocin) 1 g in 0.9% NaCl [...] 12.5 mg, Oral, DAILY, First dose on 12/09/22 at 0900, Until Discontinued Group 2: dextrose [...] NPO and with IV Access, Starting on 12/08/22 at 1704, Until 12/09/22 at 1440, If [...] EVENT. documented in this encounter Care Teams Supervisor Feed House Relationship Specialty Start Date End Date Faisal Richardson DO [address] [place] [id number] PCP - General Family Medicine 11/27/22 documented as of this encounter
--- OUTSIDE RECORDS SUMMARY | 2024-07-28 01:00 | XMS_ITS | Clinical Summary ---
Author Organization [facility] Address [address] [facility] [place] [address] [place] [address] Care Team Providers Care Government Guard Name Role Phone Brandie Jensen APRN, NP-C Unavailable [phone] Noé Crowley MD Unavailable Jasper Figueroa MD Unavailable Torrey Lafleur MD Unavailable Faisal Richardson DO Primary Care Provider Joe Pike MD Unavailable [phone] Allergies Active Allergy Reactions Criticality Noted Date Comments Penicillins Unknown,Angioedema High 07/14/2014 Medications cyclobenzaprine 10 MG tablet Take 1 tablet (10 mg total) by mouth 2 (two) times a day. Active Losartan Potassium-HCTZ 100-12.5 MG Tab Take 1 tablet by mouth daily. 8 Active metFORMIN 1000 MG tablet Take 1 tablet (1,000 mg total) by mouth 2 (two) times daily with meals. 8 Active CARVEDILOL 25 MG tablet TAKE ONE TABLET BY MOUTH TWICE A DAY 180 tablet 1 2 Active betamethasone dipropionate 0.05 % ointment as needed. 2 Active clopidogrel (PLAVIX) 75 MG tablet Take 1 tablet (75 mg total) by mouth daily. 2 Active probiotic (FLORAJEN3) Cap capsule Take 1 capsule by mouth daily with breakfast. 3 Active Multiple Vitamins-Minerals (EQ COMPLETE MULTIVITAMIN-ADUL T) Tab Take 1 tablet by mouth daily. 3 Active ferrous sulfate, 65 mg elemental, 325 (65 FE) MG tablet Take 1 tablet (325 mg total) by mouth 2 (two) times a day. Active Acetaminophen 500 MG Cap Take 1,000 mg by mouth as needed. 2 Active calcipotriene (DOVONOX) 0.005 % ointment 3 Active pantoprazole EC (PROTONIX) 40 MG tablet Take 1 tablet (40 mg total) by mouth daily. 3 Active TRULICITY 3 MG/0.5ML injection Inject 3 mg into the skin once a week. 3 Active rosuvastatin (CRESTOR) 40 MG tablet Take 1 tablet (40 mg total) by mouth daily. 3 Active sertraline (ZOLOFT) 100 MG tablet Take 1 tablet (100 mg total) by mouth daily. 3 Active amLODIPine (NORVASC) 10 MG tablet Take 1 tablet (10 mg total) by mouth daily. 90 tablet 3 3 Active buPROPion XL (WELLBUTRIN XL) 300 MG 24 hr tablet Take 1 tablet (300 mg total) by mouth every morning. 4 Active cloNIDine (CATAPRES) 0.1 MG tablet Take 1 tablet (0.1 mg total) by mouth 2 (two) times daily. 4 Active Active Problems Problem Noted Date Diagnosed Date Nonrheumatic aortic valve stenosis 01/02/2024 History of CVA (cerebrovascular accident) 2023 Mild carotid artery disease 01/02/2024 Mild coronary artery disease 04/16/2020 LVH (left ventricular hypertrophy) 04/16/2020 AVD (aortic valve disease) 11/24/2017 HTN (hypertension) Diabetes ([facility]) Tinnitus Neuropathy Hyperlipidemia Abnormal stress test Family History Medical History Relation Comments CHF Brother Cancer Brother Cancer Father Diabetes Mother Hypertension Mother Open Heart Paternal Uncle 1 Open Heart Paternal Uncle 2 Relation Status Comments Brother Father Mother Paternal Uncle 1 Paternal Uncle 2 Social History Tobacco Use Types Packs/Day Years Used Date Smoking Tobacco: Never Smokeless Tobacco: Never Sex and Gender Information Value Date Recorded Sex Assigned at Not on file Legal Sex Male 1:42 PM CDT Gender Identity Not on file Sexual Orientation Not on file Occupation Industry Job Start Date Job End Date retired Not on file Not on file Not on file Last Filed Vital Signs Vital Sign Reading Time Taken Comments Blood Pressure 122/70 12/11/2023 9:03 AM CDT Pulse 74 12/11/2023 9:03 AM CDT Temperature 36.8 ??C (98.2 ??F) 11/23/2017 1 1:30 AM CDT Respiratory Rate 18 12/11/2023 9:03 AM CDT Oxygen Saturation 97% 12/11/2023 9:03 AM CDT Inhaled Oxygen Concentration - - Weight 122.4 kg (269 lb 12.8 oz) 12/11/2023 9:03 AM CDT Height 182.9 cm (6') 12/11/2023 9:03 AM CDT Body Mass Index 36.59 12/11/2023 9:03 AM CDT Plan of Treatment Upcoming Encounters Date Type Department Care Team (Late st Contact Info) Description 12/11/2024 2:00 PM CDT Office Visit [facility] [address] [place] [phone] Brandie Jensen, BAND SEWER, CREDIT RELATIONSHIP MANAGER-C [address] [facility] [address] [place] [phone] Health Maintenance Due Date Last Done Comments ASCVD LDL 1964 Colorectal Cancer Screening Colonoscopy (10 Years) 1964 Kidney Health Evaluation 1964 Lipid Panel 1964 Annual Physical 1967 Pneumococcal Vaccine: Pediatrics (0 to 5 Years) and At-Risk Patients (6 to 64 Years) (1 of 2 - PCV) 1970 Diabetes: Retinopathy Eye Exam 1982 Hepatitis C 1982 Zoster Vaccines (1 of 2) 2014 Hemoglobin A1C 03/25/2024 09/25/2023, 12/04, 11/27/2022, Additional history exists COVID-19 Vaccine ( season) 2024 07/13/2021, 11/04/2020, 10/14/2020 RSV Immunization or 60+ Years (1 - Risk 60-74 years 1-dose series) 2024 Influenza Adult (#1) 2024 DTaP, Tdap and Td Vaccines (2 - Td or Tdap) 10/26/2031 10/25/2021 Meningococcal Vaccine Aged Out No bhavya jeimy eligible based on patient's age to complete this topic RSV Immunizations Under 20 Months Aged Out No longer eligible based on patient's age to complete this topic Insurance [employer] Directives * Full Code (Latest Code Status on File) Date Activated Date Inactivated Comments 11/23/2017 3:08 PM 11/23/2017 7:02 PM Care Teams Government Guard Relationship Specialty Start Date End Date RgFaisal soto DO [address] [place] [address] PCP - General FAMILY PRACTICE 11/29/22 Brandie Jensen, BAND SEWER, CREDIT RELATIONSHIP MANAGER-C [address] [facility] [address] [place] [phone] NURSE PRACTITIONER 02/08/21 Noé Crowley MD [address] [facility] [address] [facility] [address] [place] [address] Surgeon ORTHOPAEDIC SURGERY 02/08/21 Jasper Figueroa MD [address] [facility] [place] [address] Surgeon NEUROLOGICAL SURGERY 12/08/21 Torrey Lafleur MD [address] [facility] Orthopaedic [place], [place] [id number] ORTHOPAEDIC SURGERY 11/22/22 Joe Pike MD [address] [facility] [address] [place] [phone] Consulting Physician INTERVENTIONAL CARDIOLOGY 03/19/24
--- OUTSIDE RECORDS SUMMARY | 2024-07-28 01:00 | XMS_ITS | Encounter Summary ---
Author Organization [facility] Address [address] [place] [address] [place] [address] Care Team Providers Care Dominatrix Name Role Phone Christy Meehan MD Unavailable Unavailabl e Brandie Jensen APRN, WARP BLEACHING VAT TENDER-C Unavailable Noé Crowley MD Unavailable [phone] Jasper Figueroa MD Unavailable [phone] Torrey Lafleur MD Unavailable [phone] Faisal Lakhani DO Primary Care Provider [phone] Reason for Visit * Reason Comments Follow Up Coronary Artery Disease Encounter Details Date Type Department Care Team ([facility] st Contact Info) Description 07/16/2023 9:30 AM SALES SUPPORT COORDINATOR Office Visit [facility] [address] [place] [phone] Brandie Jensen APRN, WARP BLEACHING VAT TENDER-C [address] [facility] [address] [place] [address] Follow Up; Coronary Artery Disease Social History Tobacco Use Types Packs/Day Years [...] Sign Reading Time Taken Comments Blood Pressure 128/72 07/16/2023 9:34 AM SALES SUPPORT COORDINATOR Pulse 67 07/16/2023 9:34 AM SALES SUPPORT COORDINATOR Temperature - - Respiratory Rate 16 07/16/2023 9:34 AM SALES SUPPORT COORDINATOR Oxygen Saturation - - Inhaled Oxygen Concentration - - Weight 127.7 kg (281 lb 9.6 oz) 07/16/2023 9:34 AM SALES SUPPORT COORDINATOR Height 182.9 cm (6') 07/16/2023 9:34 AM SALES SUPPORT COORDINATOR Body Mass Index 38.19 07/16/2023 9:34 AM SALES SUPPORT COORDINATOR documented in this encounter Patient Instructions * Patient Instructions* Brandie Jensen APRN, NP-C - 07/16/2023 9:30 AM SALES SUPPORT COORDINATOR Increase amlodipine to 10 mg daily. Stop clonidine. Monitor blood pressure. If persistently around 140/80 mmHg, let me know so that we can adjust medication. S SUPPORT COORDINATOR documented in this encounter Progress Notes * Brandie Jensen APRN, NP-C - 07/16/2023 9:30 AM CST FROM: Brandie Jensen APRN, NP-C, collaborating physician Christy Meehan III, M.D. RE: Taylor Rutledge : 1965 Reason for Visit: Follow Up and Coronary Artery Disease History of Present Illness: Mr. Rutledge is a pleasant 58-year-old male seen in the cardiology clinic today for an annual scheduled followup visit. He has a history of coronary artery disease, aortic stenosis, LVH, CVA in 2021, hypertension, hyperlipidemia, sleep apnea, and diabetes. He reports that he is doing reasonably well from a cardiac standpoint. He denies any anginal chest pain, shortness of breath, or dyspnea upon exertion. He admits to little physical activity. 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 He believes he can walk a mile without stopping. However, he has felt wore out since his CVA. He reports good CPAP compliance. He denies any claudication. He denies any overt symptoms of congestive heart failure such asparoxysmal nocturnal dyspnea, orthopnea, or pedal edema. He has no palpitations. He has occasional lightheadedness since his CVA, but denies any syncope. He denies signs and symptoms of CVA or TIA. He seems to be tolerating his present medications well without reported side effects. He denies signsof bleeding. Evaluation during the clinic visit included an EKG which confirmed the presence of sinus rhythm at a rate of 66 beats per minute with inferolateral repolarization abnormalities similar to his previous EKG. Recommendations/Plan: Mr. Rutledge's cardiac status appears clinically stable without ongoing anginal chest pain, symptoms of congestive heart failure, or signs of an underlying arrhythmia. Continued medical therapy and aggressive cardiac risk factor modification seem most appropriate at the present time. I have recommended the following to Mr. Rutledge: CAD. He denies symptoms consistent with myocardial ischemia. His nuclear stress test on 12/04/2022 revealed a fixed defect without evidence of reversible ischemia. His LVEF was 63%. We will continue current medical therapy. Aortic Stenosis, LVH. His echocardiogram from August 2022 noted an LVEF 65-70% with moderate LVH, severe aortic sclerosis with some degree of stenosis with a mean gradient of 25 mmHg and aortic valve area 1.2 cm??. We will plan to repeat an echocardiogram prior to his next visit. Hypertension, Fatigue. His blood pressure is well-controlled in the office today. He does report issues with fatigue. We will try clonidine 0.1 mg twice daily and increasing his amlodipine from 5 mg to 10 mg daily. I have asked him to monitor his blood pressure, and call the office if it is persistently greater than 140/80 mmHg. At that point, we can either try increasing his hydrochlorothiazide or switching him to chlorthalidone. History of CVA, Carotid Stenosis. He suffered a cryptogenic stroke in October 2021. His evaluation ruled out a PFO. His 30-day body guardian monitor did not reveal evidence of occult atrial fibrillation. His carotid stenosis was around 50% bilaterally. He denies any new neurologic symptoms. He will continue his plavix and statin, and continue to follow with neurology. We will plan to recheck carotid dopplers next year. Hyperlipidemia. He is currently treated with rosuvastatin and denies reported side effects. An LDL less than 70 is recommended. We will plan to see Mr. Rutledge in six months. I have encouraged him to contact me in the meantime should he have any questions or problems. Medications: Current Outpatient Medications: Acetaminophen 500 MG Cap, Take 1,000 mg by mouth as needed., Disp: , Rfl: amLODIPine (NORVASC) 10 MG tablet, Take 1 tablet (10 mg total) by mouth daily., Disp: 90 tablet, Rfl: 3 betamethasone dipropionate 0.05 % ointment, as needed., Disp: , Rfl: calcipotriene (DOVONOX) 0.005 % ointment, , Disp: , Rfl: CARVEDILOL 25 MG tablet, TAKE ONE TABLET BY MOUTH TWICE A DAY, Disp: 180 tablet, Rfl: 1 Cholecalciferol (D3) 50 MCG (2000 UT) Tab, Take 50 mcg by mouth daily., Disp: , Rfl: clopidogrel (PLAVIX) 75 MG tablet, Take 1 tablet (75 mg total) by mouth daily., Disp: , Rfl: cyclobenzaprine 10 MG tablet, Take 1 tablet (10 mg total) by mouth 2 (two) times a day., Disp: , Rfl: Docusate Sodium (DSS) 100 MG Cap, Take 100 mg by mouth 2 (two) times daily., Disp: , Rfl: ferrous sulfate, 65 mg elemental, 325 (65 FE) MG tablet, Take 1 tablet (325 mg total) by mouth 2 (two) times a day., Disp: , Rfl: Losartan Potassium-HCTZ 100-12.5 MG Tab, Take 1 tablet by mouth daily., Disp: , Rfl: metFORMIN 1000 MG tablet, Take 1 tablet (1,000 mg total) by mouth 2 (two) times daily with meals., Disp: , Rfl: Multiple Vitamins-Minerals (EQ COMPLETE MULTIVITAMIN-ADULT) Tab, Take 1 tablet by mouth daily., Disp: , Rfl: pantoprazole EC (PROTONIX) 40 MG tablet, Take 1 tablet (40 mg total) by mouth daily., Disp: , Rfl: probiotic (FLORAJEN3) Cap capsule, Take 1 capsule by mouth daily with breakfast., Disp: , Rfl: rosuvastatin (CRESTOR) 40 MG tablet, Take 1 tablet (40 mg total) by mouth daily., Disp: , Rfl: sertraline (ZOLOFT) 100 MG tablet, Take 1 tablet (100 mg total) by mouth daily., Disp: , Rfl: TRULICITY 3 MG/0.5ML injection, Inject 3 mg into the skin once a week., Disp: , Rfl: Review of patient's allergies indicates: Allergen Reactions Penicillins Unknown and Angioedema Past Medical History: Diagnosis Date Abnormal stress test Back pain need surgery here for clearance Bleeding ulcer Diabetes (CMS/HCC) Heart burn HTN (hypertension) Hyperlipidemia Mild coronary artery disease Neuropathy Tinnitus Past Surgical History: Procedure Laterality Date APPENDECTOMY BACK SURGERY 2018 HEART CATH 11/23/2017 REPAIR ROTATOR CUFF,CHRONIC Social History Tobacco Use Smoking status: Never Smokeless tobacco: Never Family History Problem Relation Name Age of Onset Diabetes Mother Hypertension Mother Cancer Father Cancer Brother CHF Brother Open Heart Paternal Uncle Open Heart Paternal Uncle Family Status Relation Name Status Mother Father Brother (Not Specified) PUncle (Not Specified) PUncle (Not Specified) Review of Systems Constitutional: Positive for fatigue. Negative for recent unintentional weight gain and recent unintentional weight loss. HENT: Negative for new or significant hearing loss. Eyes: Negative for blurred vision and double vision. Respiratory: Negative for cough, new or significant shortness of breath and snoring. Cardiovascular: See HPI. Gastrointestinal: Negative for blood in stool and melena. Genitourinary: Negative for dysuria. Musculoskeletal: Negative for myalgias and new or worsening joint stiffness/pain. Skin: Negative for rash. Neurological: Negative for tingling/numbness and focal weakness. Endo/Heme/Allergies: Negative for new or significant bruising/bleeding and polydipsia. Psychiatric/Behavioral: Negative for depression and new or significant memory loss. Vitals: 07/16/23 0934 BP: 128/72 Patient Position: Sitting BP Location: Left arm Pulse: 67 Weight: 127.7 kg (281 lb 9.6 oz) Height: 1.829 m (6') Body mass index is 38.19 kg/m??. Cardiac Exam Rate/Rhythm: Normal rate and regular rhythm. PMI: Pulses: Normal pulses. Dorsalis pedis pulses are 2+ on the right side and 2+ on the left side. Posterior tibial pulses are 2+ on the right side and 2+ on the left side. Heart Sounds: Normal S1 sounds. Normal S2 sounds. No gallop present. No S3. No S4. Murmurs: Murmur present Systolic murmur is present with a grade of 2/6. Edema left: 0. Edema Right: 0. Physical Exam Constitutional: No distress. Healthy Appearance. HENT: Oropharynx clear. Eyes: Pupils equal, round, and reactive to light. Conjunctivae normal. Neck: Neck supple. No JVD. Abdomen: Abdomen soft. Bowel sounds normal. No distension. No tenderness. No abdominal bruit present. Pulmonary: Effort normal. Breath sounds normal. Skin: Dry. Warm. No rash. No jaundice. No cyanosis. No clubbing. No xanthoma. Musculoskeletal: No kyphosis. Normal ROM. Neurological: Alert. Oriented x 3. Appropriate mood and affect. Comments: Diagnoses/Impression: 1. Mild coronary artery disease 2. Nonrheumatic aortic valve stenosis USE ECHOCARDIOGRAM 3. LVH (left ventricular hypertrophy) USE ECHOCARDIOGRAM 4. Essential hypertension USE ECHOCARDIOGRAM 5. History of CVA (cerebrovascular accident) 6. Bilateral carotid artery stenosis 7. Hyperlipidemia, unspecified hyperlipidemia type Referring Provider: No ref. provider found PCP: FAISAL LAKHANI DO S SUPPORT COORDINATOR documented in this encounter Plan of Treatment Upcoming Encounters Date Type Department Care Team (Late st Contact Info) Description 12/11/2024 2:00 PM CDT [facility] Visit [facility] [address] [place] [phone] Brandie Jensen APRN, WARP BLEACHING VAT TENDERBabitaC [address] [facility] [address] [place] [address] documented as of this encounter Procedures Procedure Name Priority Date/Time Associated Diagnosis Comments ELECTROCARDIOGRAM (NON MIDMARK ACQUIRED) Routine 07/16/2023 9:41 AM SALES SUPPORT COORDINATOR Essential hypertension Mild coronary artery disease documented in this encounter Results * ELECTROCARDIOGRAM (07/16/2023 9:41 AM SALES SUPPORT COORDINATOR) 07/16/2023 9:41 AM SALES SUPPORT COORDINATOR Narrative [facility] - 07/24/2023 7:11 AM SALES SUPPORT COORDINATOR ? [facility] ?[address] [place], [place] ??[address] ? Test Date: ?2023-07-16 Pat Name: ? TAYLOR RUTLEDGE ?Department: ?? 105 ? Room: ? Gender: ? Male ? Food And Nutrition Services Assistant: ?? : ?1965 ? Requested By: CHRISTY MEEHAN Order Number: [id number] ?Reading MD: ?? Taylor Quesada ? Measurements Intervals ?[place] ? Rate: ? 66 ? P: ?10 WI: ? 188 ?QRS: ?7 QRSD: ? 101 ?T: ?-22 QT: ? 377 ? QTc: ?395 ? Interpretive Statements SINUS RHYTHM NONSPECIFIC ST & T-WAVE ABNORMALITY S SUPPORT COORDINATOR Procedure Note Taylor Quesada MD - 07/24/2023 [facility] [address] [place] [address] Test Date: 2023-07-16 Pat Name: TAYLOR RUTLEDGE Department: [facility] Room: Gender: Male Food And Nutrition Services Assistant: : 1965 Requested By: CHRISTY MEEHAN Order Number: [id number] Reading MD: Taylor Quesada Measurements Intervals [place] Rate: 66 P: 10 WI: 188 QRS: 7 QRSD: 101 T: -22 QT: 377 QTc: 395 Interpretive Statements SINUS RHYTHM NONSPECIFIC ST & T-WAVE ABNORMALITY S SUPPORT COORDINATOR us Christy Meehan MD PROCEDURES-ORDERABLE NO BEATA RGE Final Result [facility] documented in this encounter Visit Diagnoses Diagnosis Mild coronary artery disease- Primary Nonrheumatic aortic [...] type documented in this encounter Care Teams Dominatrix Relationship Specialty Start Date End Date Faisal Lakhani DO [address] [place] [address] PCP - General FAMILY PRACTICE 11/29/22 Christy Meehan MD [facility] CARDIOVASCULAR DISEASE 10/29/17 03/18/24 Brandie Jensen, CUTTER AND PRESSER, WARP BLEACHING VAT TENDER-C [address] [facility] [address] [place] [address] NURSE PRACTITIONER 02/08/21 Noé Crowley MD [address] [facility] [address] [facility] [address] [place] [address] Surgeon ORTHOPAEDIC SURGERY 02/08/21 Jasper Figueroa MD [address] [facility] [place] [address] Surgeon NEUROLOGICAL SURGERY 12/08/21 Torrey Lafleur MD [address] [facility] [place] [address] ORTHOPAEDIC SURGERY 11/22/22 documented as of this encounter
--- OUTSIDE RECORDS SUMMARY | 2024-07-28 01:00 | XMS_ITS | Encounter Summary ---
Author Organization [facility] Address [address] [facility] [place] [address] Care Team Providers Care Collections Analyst Name Role Phone Unavailable Primary Care Provider Unavailabl e Encounter Details Date Type Department Care Team (Late Contact Info) Description 11/20/2022 Orders Only [facility] [address] [place] [address] Torrey Lafleur MD [address] [place] [address] Right hip pain Social History Tobacco Use [...] Encounters Date Type Department Care Team (Late Contact Info) Description 01/20/2025 10:00 AM CDT Office Visit [facility] [address] [place] [phone] Torrey Lafleur MD [address] [place] [address] documented as of this encounter Results * XR PELVIS W RIGHT HIP 2VW (11/21/2022 11:17 AM CDT) Anatomical Region Laterality Modality Pelvis Radiographic Sabi ging 11/21/2022 12:0 6 PM CDT Narrative 11/21/2022 12:07 PM CDT Procedure: XR PELVIS W RIGHT HIP 2VW ??Exam Date: ??11/21/2022 11:17 AM ?? Location: ??[facility] Indication: M25.551: Pain in right hip Findings/impression: There is an arthroplasty involving the right hip with a thin intramedullary component within the femur. Prosthesis appears to be in good position. There is no evidence of fracture or dislocation. There is mild joint space narrowing of the left. > Interpreting Provider: Viral Peña MD on 11/21/2022 12:07 PM Procedure Note Viral Peña MD - 11/21/2022 Procedure: XR PELVIS W RIGHT HIP 2VW Exam Date: 11/21/2022 11:17 AM Location: [facility] Indication: M25.551: Pain in right hip Findings/impression: There is an arthroplasty involving the right hip with a thinintramedullary component within the femur. Prosthesis appears to be in good position. There is no evidence of fracture or dislocation. There is mild joint space narrowing of the left. > Interpreting Provider: Viral Peña MD on 11/21/2022 12:07 PM Torrey Lafleur MD DIAGNOSTIC IMAGING ORDERABLES documented in this encounter Visit Diagnoses Diagnosis Right hip pain- Primary Pain in joint, pelvic region and thigh Right hip pain Pain in joint, pelvic region and thigh documented in this encounter
--- OUTSIDE RECORDS SUMMARY | 2024-07-28 01:00 | XMS_ITS | Encounter Summary ---
Author Organization [facility] Address [address] [address] [place] [address] Care Team Providers Care Engineering Instructor Name Role Phone Shiv Meehan MD Unavailable Unavailabl e Brandie Jensen APRN, PIPEFITTER-C Unavailable Noé Crowley MD Unavailable [phone] Jasper Figueroa MD Unavailable [phone] Torrey Lafleur MD Unavailable [phone] Faisal Richardson DO Primary Care Provider [phone] Reason for Visit * Reason Onset Date Comments Medication Question 09/05/2023 Encounter Details Date Type Department Care Team ([facility] st Contact Info) Description 09/05/2023 Telephone [facility] ld [address] [place] [address] Brandie Jensen APRN, PIPEFITTER-C [address] [facility] [address] [place] [address] Medication Question Social History Tobacco Use Types Packs/Day Years [...] as of this encounter Progress Notes * Rosa Cortes LPN - 09/05/2023 11:22 AM CST Images from the original note were not included. Care Management Notes No notes of this type exist for this encounter. Instructions Return in about 5 months (around 12/15/2023). Increase amlodipine to 10 mg daily. Stop clonidine. Monitor blood pressure. If persistently around 140/80 mmHg, let me know so that we can adjust medication. This info reviewed with pt. IC HEALTH STAFF NURSE * Syl Levine - 09/05/2023 9:33 AM CST The pt is calling to ask what med Brandie asked him to stop at his last appt. He just had some meds refilled and is pretty sure one of the meds he received is the one he was to stop. IC HEALTH STAFF NURSE documented in this encounter Plan of Treatment Upcoming Encounters Date Type Department Care Team (Late st Contact Info) Description 12/11/2024 2:00 PM CDT Office [facility] el [address] [place] [phone] Brandie Jensen, REGIONAL OWNER OPERATOR TRUCK DRIVER, PIPEFITTER-C [address] [facility] [address] [place] [address] documented as of this encounter Visit Diagnoses Not on filedocumented in this encounter Care Teams Engineering Instructor Relationship Specialty Start Date End Date Faisal Richardson DO [address] [place] [address] PCP - General FAMILY PRACTICE 11/29/22 Shiv Meehan MD [place] Labor Utilization Superintendent CARDIOVASCULAR DISEASE 10/29/17 03/18/24 Brandie Jensen APRN, PIPEFITTER-C [address] [facility] [address] [place] [address] NURSE PRACTITIONER 02/08/21 Noé Crowley MD [address] [facility] [address] [place], [place] [id number] Surgeon ORTHOPAEDIC SURGERY 02/08/21 Jasper Figueroa MD [address] [facility] [place] [address] Surgeon NEUROLOGICAL SURGERY 12/08/21 Torrey Lafleur MD [address] [facility] [place] [address] ORTHOPAEDIC SURGERY 11/22/22 documented as of this encounter
--- OUTSIDE RECORDS SUMMARY | 2024-07-28 01:00 | XMS_ITS | Encounter Summary ---
Author Organization [facility] Address [address] [facility] [place] [address] [place] [address] Care Team Providers Care Bmw Service Technician Name Role Phone Shiv Meehan MD Unavailable Unavailabl e Brandie Jensen APRN, LAUNDRY MANAGER-C Unavailable Noé Crowley MD Unavailable [phone] Jasper Figueroa MD Unavailable [phone] Torrey Lafleur MD Unavailable [phone] Faisal Richardson DO Primary Care Provider [phone] Encounter Details Date Type Department Care Team (Latest Contact Info) Description 07/16/2023 Travel Social History Tobacco Use Types Packs/Day [...] Description 12/11/2024 2:00 PM CDT Office Visit [facility] [facility] eld [address] [place] [address] Brandie Jensen APRN, LAUNDRY MANAGER-C [address] [facility] [address] [place] [address] documented as of this encounter Visit Diagnoses Not on filedocumented in this encounter Care Teams Bmw Service Technician Relationship Specialty Start Date End Date DebraFaisalDO [address] [place] [address] PCP - General FAMILY PRACTICE 11/29/22 Shiv Meehan MD [place] All Around Patternmaker CARDIOVASCULAR DISEASE 10/29/17 03/18/24 Brandie Jensen, LOAN TELLER, LAUNDRY MANAGER-C [address] [facility] [address] [place] [address] NURSE PRACTITIONER 02/08/21 Noé Crowley MD [address] [facility] [address] [facility] [address] [place] [address] Surgeon ORTHOPAEDIC SURGERY 02/08/21 Jasper Figueroa MD [address] [facility] [address] [place] [address] Surgeon NEUROLOGICAL SURGERY 12/08/21 Torrey Lafleur MD [address] [facility] [place] [address] ORTHOPAEDIC SURGERY 11/22/22 documented as of this encounter
--- OUTSIDE RECORDS SUMMARY | 2024-07-28 01:00 | XMS_ITS | Encounter Summary ---
Author Organization [facility] Address [address] [facility] [place] [address] Care Team Providers Care Food Technician Name Role Phone Faisal Richardson DO Primary Care Provider [phone] Encounter Details Date Type Department Care Team (Late Contact Info) Description 11/24/2022 Orders Only [facility] [address] [place] [address] Fiordaliza Flores RN Social History Tobacco Use Types Packs/Day Years [...] Visit [facility] [address] [place] [phone] Torrey Lafleur MD [address] [facility] [address] [place] [address] documented as of this encounter Visit Diagnoses Not on filedocumented in this encounter Care Teams Food Technician Relationship Specialty Start Date End Date Faisal Richardson DO [address] [place] [id number] PCP - General Family Medicine 11/27/22 documented as of this encounter
--- OUTSIDE RECORDS SUMMARY | 2024-07-28 01:00 | XMS_ITS | Encounter Summary ---
Author Organization [facility] Address [address] [place] [address] Care Team Providers Care [address] Gang Supervisor Name Role Phone Faisal Richardson DO Primary Care Provider [phone] Reason for Visit * Auth/Cert (Routine) Specialty Diagnoses / Procedures Referred By Contac t Referred To Contact Diagnoses Diagnosis unknown Diagnosis unknown [R69] Procedures ARTHROPLASTY TOTAL HIP REVISION Referral ID Status Reason Start Date Expiration Date Visits Re quested Visits Authorized [id number] 1 1 Encounter Details Date Type Department Care Team (Late st Contact Info) Description 12/08/2022 10:35 AM CDT Anesthesia Event [facility] [address] [place] [address] Sunitha Fung MD [address] [place] [address] Kip Ramirez MD [address] [place] [address] Anesthesia Record Procedure Summary Procedure Name Responsible Anesthesiologist Anesthesia Start Time Anesthesia Stop Time REVISION RIGHT TOTAL HIP ARTHROPLASTY BOTH COMPONENTS, REMOVAL OF ANTIBIOTIC SPCER RIGHT HIP (Right: Hip) Sunitha Fung MD 12/08/22 1035 12/08/22 1453 Events Date Time Event Comment 12/08/2022 1035 An Start 1035 An Start Data 1040 PT Reassessment 1040 Induction 1042 An Intubation 1052 Pt Repositioned Left lateral 1114 Timeout Anesthesia part icipated in timeout at the time documented in the record by nursing. 1135 Handoff 1206 Handoff 1233 an timothy now I stat done 1330 an timothy now I stat done 1343 Quick Note Surgeon request s additional NMB. 1439 Pt Repositioned supine 1441 Extubation 1445 an stop data 1445 Electnc Sig This record is electronically signed by the providers listed under staff. 1446 ANPTO2 1453 An Stop Meds Name Total fentaNYL 100 mcg/2mL injection 200 mcg lidocaine 2% injection (20 mg/ml) 80 mg rocuronium 50mg/5mL injection 140 mg phenylephrine 1000 mcg/10mL injection 1, 200 mcg dexamethasone 4 mg/ml injection 4 mg ondansetron 4 mg/2mL injection 4 mg ketorolac 30 mg/ml injection 15 mg sugammadex 200 mg/2 mL injection 250 mg ceFAZolin (Ancef) 3,000 mg in 115 mL IVP B 5 g gentamicin (Garamycin) 400 mg in 0.9% Na Cl IV 100 mL IVPB 0 mg magnesium sulfate 4 g in 100 mL bolus 2 g tranexamic acid (Cyklokapron) 1,000 mg i n 0.9% NaCl IV 110 mL bolus 1,000 mg tranexamic acid (Cyklokapron) 1,000 mg i n 0.9% NaCl IV 110 mL bolus 1,000 mg etomidate 2 mg/ml injection 30 mg diphenhydrAMINE 50mg/ml injection 25 mg dexmedeTOMIDine HCl (Precedex) injection 30 mcg midazolam (VERSED) injection 2 mg lidocaine (XYLOCAINE MPF) 1 % injection 0.5 mL vancomycin (Vancocin) 1,000 mg in 0.9% N aCl IV 250 mL IVPB 1,000 mg lactated ringers infusion 4,000 mL phenylephrine 10mg in 250ml NS (ANES kwame es in OR) 50 mL * Agents Name Insp. N2O Exp. Sevoflurane Exp. N2O O2 Air Insp. Sevoflurane N2O * Blood No blood administrations on file. Lines, Drains, and Airways Type Details Placement Removal Peripheral IV Date: 12/08/22; Time : 08; Orientation: Anterior, Distal, Left; Placed By: ANA Deal; Tolerance: Well 12/08/22 0834 by Crystal Pineda RN 12/09/22 1155 by Rubia Stevens RN Arterial Line Date: 12/08/22; Time : 0956; Placed By: Sunitha Fung MD; Location: radial; Orientation: Right; Gauge: 18; Prep: Alcohol; Anesthetic Used: Yes; Line Secured: Taped; Tolerance: Well, Sedated 12/08/22 0956 by Sunitha Fung MD 12/08/22 1529 by Lea Martin RN ETT Date: 12/08/22; Time : 1042; Placed By: FERN Medina; Vent: easy with oral airway mask; Induction: Standard IV; Blade Type: Sujey; Blade Size: 4; Laryngoscopy View: Grade 2 (partial cords); Intubation Adjuncts: Stylet, Cricoid Pressure; Tube: Endotracheal Tube; Placement: Oral; Tube Type: Cuffed-inflated; Tube Size(mm): 8 MM; Depth of Insertion: 22 CM; Measured From: teeth; Attempts: 1; Cuff Infated: Air; Cuff Vol(mL): 5 mL; Verified By: Direct visualization, Bilateral breath sounds, Chest Auscultation, CO2 Monitor 12/08/22 1042 by Roxanne Oliver APRN-CRNA 12/08/22 1441 by Roxanne Oliver APRN-CRNA Urethral Catheter 12/08/22; 1050; Pat mares RN; Non-latex; No; 16; 10 mL; Yes, Seal Intact; 1; Well; 12/08/22; 1440; Per order; Ciarra VALDEZ 12/08/22 1050 by Althea Verdin RN 12/08/22 1440 by Althea Verdin RN Procedural Site (Incision) 12/08/22; 1117; Anterior, Proximal, Right, Upper; Hip; 12/09/22; 1940 12/08/22 1117 by Althea Verdin RN 12/09/22 1940 by Generic, Auto Release documented in this encounter Social History Tobacco Use Types Packs/Day Years Used Date Smoking Tobacco: Never Smokeless Tobacco: Never Alcohol Use Standard Drinks/Week Comments Not Currently 0 (1 standard drink = 0.6 oz pur e alcohol) Overall Financial Resource Strain (CARDIA) Natalia castillo Date Recorded How hard is it for you to pa y for the very basics like food, housing, medical care, and heating? Not hard at all 12/14/2022 [facility] [place] [facility] - Occupational Stress [...] slept in a penitentiary (including now)? No 12/14/2022 Sex and Gender Information Value Date Recorded Sex Assigned at Not on file Gender Identity Not on file Sexual Orientation Not on file documented as of this encounter Progress Notes * Segundo Zimmerman MD - 12/08/2022 3:02 PM CDT ANESTHESIA POSTOP EVALUATION NOTE Procedure: REVISION RIGHT TOTAL HIP ARTHROPLASTY BOTH COMPONENTS, REMOVAL OF ANTIBIOTIC SPCER RIGHTHIP (Right: Hip) PREVENA/ WOUND VAC APPLICATION RIGHT HIP (Right: Hip) Jose Rutledge is a 57 year old male Patient Vitals for the past 6 hrs: BP Temp Pulse Resp SpO2 Pain Scale/Observation 12/08/22 1450 114/66 97.9 ??F (36.6 ??C) 77 19 100 % B 12/08/22 1455 96/66 -- 76 16 100 % -- 12/08/22 1500 97/63 -- 72 14 100 % B Anesthesia Type: general ETT Pre-op Diagnosis Codes: * Diagnosis unknown [R69] Mental Status: awake, sufficiently recovered from acute administration of anesthesia to participatein the evaluation and neurologic status has returned to expected level of consciousness Neuro Status: No numbness, tingling or visual disturbances Respiratory Function: natural Cardiac Function: stable Postop Pain: acceptable to the patient and needs to be addressed/see medication order Postop Hydration: adequate Postop Nausea: none Assessment: no apparent anesthetic complications, patient tolerated procedure well and no evidence of recall Patient Disposition: Release from Anesthesia Care NOTABLE EVENTS: No notable events documented. * Sunitha Fung MD - 12/08/2022 9:24 AM CDT ANESTHESIA PREOPERATIVE EVALUATION NOTE Procedure: REVISION TOTAL HIP ARTHOPLASTY ACETABULUM ONLY VERSUS FEMUR ONLY WITH CONVERSION OF PREVIOUS HIP SURGERY TO TOTAL HIP ARTHROPLASTY WITH REMOVAL OF HARDWARE WITH REMOVAL OF ANTIBIOTIC SPACER (Right: Hip) NPO status: Since Midnight; *Except Oral meds with H2O (12/08/2022 8:51 AM) Last Solids/Dairy: 1900 (12/08/2022 8:51 AM) Last Clear Liquids: 0851 (12/08/2022 8:51 AM) Vitals: Patient Vitals for the past 6 hrs: BP Temp Pulse Resp SpO2 Pain Rating Score #1 12/08/22 0844 149/87 97.8 ??F (36.6 ??C) 68 16 96 % 2 LMP: No LMP for male patient. OB Status: unknown ANESTHESIA PRE-EVALUATION NOTE History of Present Illness: 57 yo male presenting for the above listed procedure. 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 Physical Exam: Orientation X3 Airway/Mallampati Score: III Mouth Opening Distance: 3 fingerwidths Neck ROM: full TM Distance: > 3 FB Teeth: normal Heart: murmur Lungs: clear to ausculation bilaterally Abdomen Exam: obese Review of Systems: History of anesthetic complications: No Sleep Apnea Risk: Yes, CPAP - compliant Malignant Hyperthermia: No GERD: No Poor Exercise Tolerance: No Recent Chest Pain: No Shortness of Breath: No AICD/Pacemaker: No Renal Disease: No Diagnostic Tests: Echo(s) reviewed: Yes. Lab(s) reviewed: Yes. ANESTHESIA PLAN ASA Score: 4 NPO Status: No liquids within 2 hours and No solids for 8 hours Anesthesia Plan: general Planned Induction: intravenous Planned Adjuncts: art line Planned Postop Destination: PACU Anesthetic plan was discussed with: patient Anesthetic Plan discussion was: Consented Use of blood products were discussed with: patient The patient's procedural Anesthetic Plan was discussed with the CHEMICAL SUPERVISOR. BMI, Height, Weight Tobacco History Estimated body mass index is 37.7 kg/m?? as calculated from the following: Height as of this encounter: 1.829 m (6'). Weight as of this encounter: 126.1 kg (278 lb). Social History Tobacco Use Smoking Status Never Smokeless Tobacco Never Vaping Use Vaping Status Never Used Alcohol History Drug History Social History Substance and Sexual Activity Alcohol Use Not Currently Social History Substance and Sexual Activity Drug Use No Outpatient Medications: Inpatient Medications: Outpatient Medications Marked as Taking for the 12/08/22 encounter (Hospital Encounter) Medication Sig Last Dose ??? acetaminophen 12/07/2022 at 0800 ??? amLODIPine Take 1 (one) tablet by mouth once daily 12/08/2022 at 0600 ??? Probiotic 12/05/2022 ??? betamethasone dipropionate as needed 12/05/2022 ??? calcipotriene Apply to affected area 2 times daily 12/05/2022 ??? carvedilol Take 1 (one) tablet by mouth 2 times daily 12/08/2022 at 0600 ??? cloNIDine Take 1 (one) tablet by mouth 2 times daily 12/08/2022 at 0600 ??? clopidogrel Take 1 (one) tablet by mouth once daily 12/02/2022 ??? cyclobenzaprine Take 1 (one) tablet by mouth 2 times daily 12/07/2022 ??? diclofenac sodium EC Taking Differently ??? DSS Take 100 mg by mouth 2 times daily 12/06/2022 ??? dulaglutide 12/06/2022 ??? ergocalciferol Take 1 (one) capsule by mouth 12/07/2022 ??? ferrous sulfate Take 1 (one) tablet by mouth once daily 12/05/2022 ??? losartan-hydroCHLOROthiazide Take 1 (one) tablet by mouth every morning 12/08/2022 at 0600 ??? metFORMIN Take 1 (one) tablet by mouth 2 times daily 12/07/2022 ??? One-A-Day Mens Health Formula 12/07/2022 ??? rosuvastatin Take 1 (one) tablet by mouth every morning 12/07/2022 ??? sertraline Take 1 (one) tablet by mouth once daily 12/07/2022 Current Facility-Administered Medications Medication Dose Last Admin ??? ceFAZolin 3 g ??? lactated ringers 75 mL/hr ??? lactated ringers New Bag at 12/08/22 0855 ??? lidocaine 0.2 mL 0.2 mL at 12/08/22 0853 ??? magnesium sulfate 4 g ??? tranexamic acid 1,000 mg ??? tranexamic acid 1,000 mg Allergies: Allergies Allergen Reactions ??? Penicillins Angioedema Relevant Problems No relevant active problems Problem List: Patient Active Problem List Diagnosis Date Noted ??? Closed fracture of nasal bones 11/21/2022 Priority: Not Prioritized ??? Closed left maxillary fracture ([facility]) 11/21/2022 Priority: Not Prioritized ??? H/O ischemic [...] History: Past Medical History: Diagnosis Date ??? High blood pressure ??? Mixed hyperlipidemia ??? Restless leg syndrome ??? Sleep apnea ??? Stroke ([facility]) 2021 balance residual ??? Type 2 diabetes mellitus without complications (CMS/HCC) Surgical History: Past Surgical History: Procedure Laterality Date ??? Appendectomy ??? COLONOSCOPY ??? EGD ??? HIP ARTHROPLASTY, TOTAL Right ??? OTHER SURGERY Right 08/30/2022 removed hip and placed antibiotic spacer ??? Rotator Cuff Repair Right ??? 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 unknown OB History No obstetric history on file. Covid Vaccine: Lab Results: Recent Labs Base Name 12/08/22 0833 [id number] 140* SPECIMENTYPE Cap Fingerstick Recent Labs Component Name 11/27/22 0950 WBC 5.7 RBC 4.02 HCT 38.0 HGB 12.9 PLTCOUNT 147* MCV 94.5 MCH 32.1 MCHC 33.9 MPV 9.4 Recent Labs Component Name 11/27/22 0950 ABORH O POS ABSCG NEG Recent Labs Component Name 11/27/22 0950 BLOODUA Negative NITRITEUA Negative PROTEINUA Negative Recent Labs Component Name 11/27/22 0950 SODIUM 137 POTASSIUM 4.4 CALCIUM 9.7 CHLORIDE 106 CO2 20* GLUCOSE 126* BUN 14 CREATININE 0.74 No results found for requested labs within last 120 days. Recent Labs Result Component Current Result Albumin 4.4 (11/27/2022) Alkaline Phosphatase 73 (11/27/2022) ALT 24 (11/27/2022) Anion Gap 11 (11/27/2022) AST 20 (11/27/2022) Bilirubin Total 0.9 (11/27/2022) eGFR by CKD-EPI >90 (11/27/2022) documented in this encounter Procedure Notes * Roxanne Oliver APRN-CHEMICAL SUPERVISOR - 12/08/2022 11:15 AM CDTAssociated Order(s): ETT Placement Endotracheal Tube Placement: Patient Location: OR. Intubation Event Date/Time: 12/08/2022 10:42 AM Procedure: intubation ([id number]). Procedure Section: Sedation: under general anesthesia. Indications [...] 22 Measured From: teeth Cuff volume (mL): 5 Cuff Inflated With: air Number of Attempts: 1. Placement Verified By: direct visualization, bilateral breath sounds, chest auscultation and CO2 monitor Tube secured with: adhesive tape. Difficult Airway? No. Procedure Start Time: 12/08/2022 10:42 AM. Staff Section Anesthesia Provider: Roxanne Oliver APRN-CRNA, Performed the procedure Additional Comments: Dentition/oral mucosa unchanged from pre op exam following DVOI.. * Sunitha Fung MD - 12/08/2022 9:56 AM CDTAssociated Order(s): Arterial Line Placement Arterial Line Placement Procedure Note Patient Location: OR. Procedure: Arterial Line ([id number]). Procedure Section Indications: continuous blood pressure monitoring and other - please comment (intraoperative monitoring). Consent: informed consent was obtained for the procedure, including sedation, risks of hemorrhage, hematoma, infection and adverse drug reactions were discussed and a time out was performed for patient safety. Alternatives Discussed: no treatment Skin Prep: alcohol. Orientation: Right. Site: radial. Site Identification: palpation and other - please comment (ultrasound guidance). Sterile Technique: cap and mask (procedure gloves). Local Types: lidocaine (XYLOCAINE MPF) 1 % injection, 0.5 mL. Gauge: 18. Catheter Type: Arrow. Seldinger Technique Used? Yes Number of Attempts: 1. Line Secured with: tape and Tegaderm. Procedure Tolerance: tolerated well, no immediate complications and performed while the patient wassedated. Events: none. Procedure Start Time: 12/08/2022 9:56 AM. Procedure End Time: 12/08/2022 10:06 AM. Procedure Total Time: 10 minutes. Patient Sedated? Yes Local Anesthetic Used? Yes Sedation Agents: midazolam (VERSED) injection, 2 mg Sedation Types: mild Staff Section Anesthesia Provider: Sunitha Fung MD, Performed the procedure documented in this encounter Miscellaneous Notes * Anesthesia Transfer of Care - OliverRoxanne MychalSHANNAN-CHEMICAL SUPERVISOR - 12/08/2022 2:53 PM CDT ANESTHESIA TRANSFER OF CARE NOTE Today's Date: 12/08/2022 Date of : 1965 Patient: Jose Rutledge Procedure(s): REVISION RIGHT TOTAL HIP ARTHROPLASTY BOTH COMPONENTS, REMOVAL OF ANTIBIOTIC SPCER RIGHT HIP PREVENA/ WOUND VAC APPLICATION RIGHT HIP Surgeon(s): Primary: Torrey Lafleur MD Preop Diagnosis: Pre-op Diagnois: * Diagnosis unknown [R69] Pre-op Meds (From admission, onward) Start Stop Status Route Frequency Ordered 12/08/22 0815 acetaminophen (Tylenol) tablet 1,000 mg 12/08/22 0855 Completed PO ONCE 12/08/22 0803 12/08/22 0815 ceFAZolin (Ancef) 3,000 mg in 115 mL IVPB 12/08/22 1331 Completed IV PRE-OP ONCE 12/08/22 0800 12/08/22 0815 celecoxib (CeleBREX) capsule 200 mg 12/08/22 0853 Completed PO PRE-OP ONCE 12/08/22 0800 12/08/22 1448 fentaNYL (PF) (Sublimaze) injection 50 mcg -- Verified IV EVERY 3 MIN PRN 12/08/22 1448 12/08/22 1448 fentaNYL (PF) (Sublimaze) injection 50 mcg -- Verified IV EVERY 3 MIN PRN 12/08/22 1448 12/08/22 0815 gentamicin (Garamycin) 400 mg in 0.9% NaCl IV 100 mL IVPB 12/08/22 0922 Completed IV PRE-OP ONCE 12/08/22 0800 12/08/22 1448 HYDROmorphone (Dilaudid) injection 0.5 mg -- Verified IV EVERY 5 MIN PRN 12/08/22 1448 12/08/22 0815 lactated ringers infusion 12/08/23 0814 Verified IV CONTINUOUS 12/08/22 0800 12/08/22 0815 lactated ringers infusion -- Verified IV PRE-OP CONTINUOUS 12/08/22 0803 12/08/22 1500 lactated ringers infusion -- Verified IV CONTINUOUS 12/08/22 1448 12/08/22 0956 lidocaine PF (Xylocaine MPF) 1 % injection 12/08/22 0956 Completed INFILTRATION 12/08/22 1024 12/08/22 0803 lidocaine PF (Xylocaine MPF) 1 % injection 0.2 mL -- Verified INFILTRATION PRE-OP MULTIPLE 12/08/22 0803 12/08/22 0815 magnesium sulfate 4 g in 100 mL bolus 12/08/22 1100 Completed IV PRE-OP ONCE 12/08/22 0800 12/08/22 0956 midazolam (Versed) injection 12/08/22 0956 Completed IV 12/08/22 1024 12/08/22 1448 naloxone (Narcan) injection 0.04 mg -- Verified IV POST-OP MULTIPLE 12/08/22 1448 12/08/22 0815 tranexamic acid (Cyklokapron) 1,000 mg in 0.9% NaCl IV 110 mL bolus 12/08/22 1047 Completed IV ONCE 12/08/22 0800 12/08/22 0815 tranexamic acid (Cyklokapron) 1,000 mg in 0.9% NaCl IV 110 mL bolus 12/08/22 1329 Completed IV ONCE 12/08/22 0800 12/08/22 1000 vancomycin (Vancocin) 1,000 mg in 0.9% NaCl IV 250 mL IVPB 12/08/22 1103 Completed IV PRE-OP ONCE 12/08/22 0951 Post-op Diagnosis: * Diagnosis unknown [R69] . Allergies Allergen Reactions ??? Penicillins Angioedema Vitals: No data found. Lines, Drains, and Airways Type Details Placement Removal Peripheral IV Date: 12/08/22; Time: 833; Orientation: Anterior, Distal, Left; Location: Forearm; Placed By: ANA eDal; Gauge: 20 Gauge; Locals: Injectable; Tolerance: Well 12/08/22 0834 by Crystal Pineda RN Arterial Line Date: 12/08/22; Time: 955; Placed By: Sunitha Fung MD; Location: radial; Orientation: Right; Gauge: 18; Prep: Alcohol; Anesthetic Used: Yes; Line Secured: Taped; Tolerance: Well, Sedated 12/08/22 0956 by Sunitha Fung MD ETT Date: 12/08/22; Time: 1042; Placed By: FERN Medina; Vent: easy with oral airway mask; Induction: Standard IV; Blade Type: Sujey; Blade Size: 4; Laryngoscopy View: Grade 2 (partial cords); Intubation Adjuncts: Stylet, Cricoid Pressure; Tube: Endotracheal Tube; Placement: Oral;Tube Type: Cuffed-inflated; Tube Size(mm): 8 MM; Depth of Insertion: 22 CM; Measured From: teeth; Attempts: 1; Cuff Infated: Air; Cuff Vol(mL): 5 mL; Verified By: Direct visualization, Bilateral breath sounds, Chest Auscultation, CO2 Monitor 12/08/22 1042 by Roxanne Oliver APRN-CRNA 12/08/22 1441 by Roxanne Oliver APRN-CRNA Intraprocedure I/O Totals Intake phenylephrine 10mg in 250ml NS (ANES makes in OR) 50.00 mL lactated ringers infusion 4000.00 mL tranexamic acid (Cyklokapron) 1,000 mg in 0.9% NaCl IV 110 mL bolus 220.00 mL vancomycin (Vancocin) 1,000 mg in 0.9% NaCl IV 250 mL IVPB 250.00 mL Total Intake 4520 mL Output Urine 1500 mL Estimated Blood Loss 2000 mL Total Output 3500 mL Net Net Volume 1020 mL Patient Transfer Location: PACU Transport Airway: spontaneous respirations and supplemental O2 [...] of report from the receiving PACUteam. FERN Medina documented in this encounter Plan of Treatment Upcoming Encounters Date Type Department Care Team (Late st Contact Info) Description 01/20/2025 10:00 AM CDT Office Visit [facility] - Orth[facility] Surgery [address] [place] [id number] Torrey Lafleur MD [address] [facility] [address] [place] [address] documented as of this encounter Procedures Procedure Name Priority Date/Time Associated Diagnosis Comments ENDOTRACHEAL TUBE NOTE Routine 12/08/2022 11:15 AM CDT ARTERIAL LINE NOTE Routine 12/08/2022 9: 56 AM CDT documented in this encounter Results * ETT LINE PERFORMABLE (12/08/2022 11:15 AM CDT) Narrative Roxanne Oliver APRN-CRNA - 12/08/2022 11:15 AM CDT Roxanne Oliver APRN-CRNA ? 12/08/2022 11:16 AM Endotracheal Tube Placement: ? Patient Location: OR. Intubation Event Date/Time: ??12/08/2022 10:42 AM Procedure: intubation ([id number]). Procedure Section: ?? Sedation: under general anesthesia. [...] 10:42 AM. Staff Section ? Anesthesia Provider: Roxanne Oliver APRN-CRNA, Performed the procedure Additional Comments: Dentition/oral mucosa unchanged from pre op exam following DVOI.. Sunitha Fung MD GENERAL ANESTHESIA O CHERISE * ARTERIAL LINE PERFORMABLE (12/08/2022 9:56 AM CDT) Narrative Sunitha Fung MD - 12/08/2022 9:56 AM CDT Sunitha Fung MD ? 12/08/2022 10:24 AM Arterial Line Placement Procedure Note Patient Location: OR. Procedure: Arterial Line (71217). Procedure Section ?? Indications: continuous blood pressure [...] Sunitha Fung MD GENERAL ANESTHESIA O CHERISE documented in this encounter Visit Diagnoses Not on filedocumented in this encounter Administered Medications Inactive Administered Medications - up to 3 most recent administrations Medication Order MAR Action Action Date Dose Rate Site ceFAZolin (Ancef) 3,000 mg in 115 mL IVPB 3,000 mg (3 g), at 230 mL/hr, Intravenous, PRE-OP ONCE, 1 dose, On Sun12/08/22 at 0815, Refrigerate, Indication for anti-infective therapy: Surgical prophylaxis, Pre-op $ Given 12/08/2022 1:31 PM CDT 2 g $ Given 12/08/2022 10:25 AM CDT 3 g dexAMETHasone (Decadron) injection Intravenous, PRN, Starting on Sun12/08/22 at 1114, Until Sun12/08/22 at 1455, Anesthesia Intra-op $ Given 12/08/2022 11:14 AM CDT 4 mg dexmedeTOMIDine (Precedex) injection Intravenous, PRN, Starting on Sun12/08/22 at 1130, Until Sun12/08/22 at 1455, Anesthesia Intra-op $ Given 12/08/2022 2:30 PM CDT 10 mcg $ Given 12/08/2022 12:04 PM CDT 10 mcg $ Given 12/08/2022 11:30 AM CDT 10 mcg diphenhydrAMINE (Benadryl) injection Intravenous, PRN, Starting on Sun12/08/22 at 1040, Until Sun12/08/22 at 1455, Anesthesia Intra-op $ Given 12/08/2022 10:40 AM CDT 25 mg etomidate (Amidate) injection Intravenous, PRN, Starting on Sun12/08/22 at 1040, Until Sun12/08/22 at 1455, Anesthesia Intra-op $ Given 12/08/2022 10:40 AM CDT 30 mg fentaNYL (PF) (Sublimaze) injection Intravenous, PRN, Starting on Sun12/08/22 at 1040, Until Sun12/08/22 at 1455, Anesthesia Intra-op $ Given 12/08/2022 1:00 PM CDT 25 mcg $ Given 12/08/2022 12:25 PM CDT 25 mcg $ Given 12/08/2022 11:33 AM CDT 50 mcg ketorolac (Toradol) injection Intravenous, PRN, Starting on Sun12/08/22 at 1407, Until Sun12/08/22 at 1455, Anesthesia Intra-op $ Given 12/08/2022 2:07 PM CDT 15 mg lactated ringers infusion at 20 mL/hr, Intravenous, PRE-OP CONTINUOUS, Starting on Sun12/08/22 at 0815, Until Sun12/08/22 at 1634, Pre-op $ New Bag/Syringe 12/08/2022 2:26 PM CDT $ New Bag/Syringe 12/08/2022 1:24 PM CDT $ New Bag/Syringe 12/08/2022 12:44 PM CDT lidocaine HCl (PF) (Xylocaine MPF) 2 % injection Intravenous, PRN, Starting on Sun12/08/22 at 1040, Until Sun12/08/22 at 1455, Anesthesia Intra-op $ Given 12/08/2022 10:40 AM CDT 80 mg lidocaine PF (Xylocaine MPF) 1 % injection Infiltration, Starting on Sun12/08/22 at 0956, Until Sun12/08/22 at 0956, Anesthesia Intra-op $ Given 12/08/2022 9:56 AM CDT 0.5 mL magnesium sulfate 4 g in 100 mL bolus 4 g, at 300 mL/hr, Administer over 20 Minutes, PRE-OP ONCE, 1 dose, On Sun12/08/22 at 0815, MAXIMUM rate 2g/10min $ Given 12/08/2022 11:00 AM CDT 2 g midazolam (Versed) injection Intravenous, Starting on Sun12/08/22 at 0956, Until Sun12/08/22 at 0956, Anesthesia Intra-op $ Given 12/08/2022 9:56 AM CDT 2 mg ondansetron (Zofran) injection Intravenous, PRN, Starting on Sun12/08/22 at 1406, Until Sun12/08/22 at 1455, Anesthesia Intra-op $ Given 12/08/2022 2:06 PM CDT 4 mg phenylephrine (Adarsh-Synephrine) infusion Intravenous, CONTINUOUS PRN, Starting on Sun12/08/22 at 1238, Until Sun12/08/22 at 1455, Anesthesia Intra-op $ New Bag/Syringe 12/08/2022 12:38 PM CDT phenylephrine 100 mcg/mL injection Intravenous, PRN, Starting on Sun12/08/22 at 1108, Until Sun12/08/22 at 1455, Anesthesia Intra-op $ Given 12/08/2022 2:35 PM CDT 100 mcg $ Given 12/08/2022 2:34 PM CDT 200 mcg $ Given 12/08/2022 12:34 PM CDT 100 mcg rocuronium (Zemuron) injection Intravenous, PRN, Starting on Sun12/08/22 at 1040, Until Sun12/08/22 at 1455, Anesthesia Intra-op $ Given 12/08/2022 1:43 PM CDT 20 mg $ Given 12/08/2022 1:03 PM CDT 20 mg $ Given 12/08/2022 12:40 PM CDT 10 mg sugammadex (Bridion) injection Intravenous, PRN, Starting on Sun12/08/22 at 1431, Until Sun12/08/22 at 1455, Anesthesia Intra-op $ Given 12/08/2022 2:31 PM CDT 250 mg tranexamic acid (Cyklokapron) 1,000 mg in 0.9% NaCl IV 110 mL bolus 1,000 mg, at 220 mL/hr, Intravenous, ONCE, 1 dose, On Sun12/08/22 at 0815, Give 1 gram of TXA prior to surgical incision, give the remaining 1 gram of TXA during closure of the surgical wound or two hours after the first dose, whichever occurs first. Do not inject more rapidly than 1 mL/min to avoid hypotension., Pre-op $ New Bag/Syringe 12/08/2022 10:47 AM CDT 1,000 mg tranexamic acid (Cyklokapron) 1,000 mg in 0.9% NaCl IV 110 mL bolus 1,000 mg, at 220 mL/hr, Intravenous, ONCE, 1 dose, On Sun12/08/22 at 0815, Give 1 gram of TXA prior to surgical incision, give the remaining 1 gram of TXA during closure of the surgical wound or two hours after the first dose, whichever occurs first. Do not inject more rapidly than 1 mL/min to avoid hypotension., Pre-op $ New Bag/Syringe 12/08/2022 1:29 PM CDT 1,000 mg vancomycin (Vancocin) 1,000 mg in 0.9% NaCl IV 250 mL IVPB 1,000 mg, at 250 mL/hr, Intravenous, PRE-OP ONCE, 1 dose, On Sun12/08/22 at 1000, Indication for anti-infective therapy: Surgical prophylaxis $ New Bag/Syringe 12/08/2022 11:03 AM CDT 1,000 mg documented in this encounter Care Teams Road Gang Supervisor Relationship Specialty Start Date End Date Faisal Richardson DO [address] [place] [address] [place] [address] PCP - General Family Medicine 11/27/22 documented as of this encounter
--- OUTSIDE RECORDS SUMMARY | 2024-07-28 01:00 | XMS_ITS | Encounter Summary ---
Author Organization [facility] Address [address] [facility] [place] [address] [place] [address] Care Team Providers Care Nuclear Scientist Name Role Phone Shiv Meehan MD Unavailable Unavailabl e Brandie Jensen APRN, DRY CELL TESTER-C Unavailable [phone] Noé Crowley MD Unavailable [phone] Jasper Figueroa MD Unavailable Torrey Lafleur MD Unavailable [phone] Faisal Richardson DO Primary Care Provider Encounter Details Date Type Department Care Team (Late st Contact Info) Description 12/11/2023 Orders Only [facility] [address] [place] [address] Brandie Jensen APRN, DRY CELL TESTER-C [address] [facility] [address] [place] [address] Social History Tobacco Use Types Packs/Day Years [...] Description 12/11/2024 2:00 PM CDT Office Visit [facility] el [address] [place] [address] Brandie Jensen APRN, DRY CELL TESTER-C [address] [facility] [address] [place] [address] documented as of this encounter Visit Diagnoses Not on filedocumented in this encounter Care Teams Nuclear Scientist Relationship Specialty Start Date End Date Faisal Richardson DO [address] [place] [address] PCP - General FAMILY PRACTICE 11/29/22 Shiv Meehan MD [place] Safety Glass Installer CARDIOVASCULAR DISEASE 10/29/17 03/18/24 Brandie Jensen APRN, DRY CELL TESTER-C [address] [facility] [address] [place] [phone] NURSE PRACTITIONER 02/08/21 Noé Crowley MD [address] [facility] [address] [facility] [address] [place], [place] [address] Surgeon ORTHOPAEDIC SURGERY 02/08/21 Jasper Figueroa MD [address] [facility]. [address] [place], [place] [address] Surgeon NEUROLOGICAL SURGERY 12/08/21 Torrey Lafleur MD [address] [facility] Orthopaedic [place], [place] [address] ORTHOPAEDIC SURGERY 11/22/22 documented as of this encounter
--- OUTSIDE RECORDS SUMMARY | 2024-07-28 01:00 | XMS_ITS | Encounter Summary ---
Author Organization [facility] Address [address] [facility] [place] [address] Care Team Providers Care Relay Checker Name Role Phone Unavailable Primary Care Provider Unavailabl e Encounter Details Date Type Department Care Team (Latest Contact Info) Description 11/21/2022 11:11 AM CDT - 11/21/2022 11:59 PM CDT Hospital Encounter [facility] [address] [facility] [address] [place] [phone] Torrey Lafleur MD [address] [facility] [address] [place] [address] Discharge Disposition: Home or Self Care Social [...] MG/0.5ML injection 10/17/2021 ergocalciferol (Drisdol) 1.25 MG (33176 UT) capsule Take 1 (one) capsule by mouth 05/02/2022 ferrous sulfate 325 (65 FE) MG tablet Take 1 (one) tablet by mouth once daily metFORMIN (Glucophage) 1000 MG tablet Take 1 (one) tablet by mouth 2 times daily 03/05/2022 Multiple Vitamins-Minerals (One-A-Day Mens Health Formula) TABS 08/06/2021 rosuvastatin (Crestor) 20 MG tablet Take 2 (two) tablets by mouth every morning 01/29/2022 sertraline (Zoloft) 50 MG tablet Take 1 (one) tablet by mouth once daily acetaminophen (Tylenol) 500 MG tablet 08/06/2021 12/09/2022 amLODIPine (Norvasc) 5 MG tablet Take 1 (one) tablet by mouth once daily 03/06/2022 10/04/2023 betamethasone dipropionate (Diprosone) 0.05 % ointment as needed 10/10/2021 10/04/2023 calcipotriene (Dovonex) 0.005 % ointment Apply to affected area 2 times daily 12/16/2022 cloNIDine (Catapres) 0.1 MG tablet Take 1 (one) tablet by mouth 2 times daily 03/05/2022 10/04/2023 clopidogrel (plaVIX) 75 MG tablet Take 1 (one) tablet by mouth once daily 03/05/2022 12/16/2022 diclofenac sodium EC (Voltaren) 75 MG tablet 01/29/202212/04 losartan-hydroCHLOROthiaz aysha (Hyzaar) 100-12.5 MG tablet Take 1 (one) tablet by mouth every morning 10/17/2021 10/04/2023 documented as of this encounter Plan of Treatment Upcoming Encounters Date Type Department Care Team (Late st Contact Info) Description 01/20/2025 10:00 AM CDT Office Visit [facility] [address] [place] [address] Torrey Lafleur MD [address] [address] documented as of this encounter Procedures Procedure Name Priority Date/Time Associated Diagnosis Comments XR PELVIS W RIGHT HIP 2VW Routine 11/21/2022 11:17 AM CDT Right hip pain documented in this encounter Results * XR PELVIS W RIGHT HIP 2VW (11/21/2022 11:17 AM CDT) Anatomical Region Laterality Modality Pelvis Radiographic Sabi ging 11/21/2022 12:0 6 PM CDT Narrative 11/21/2022 12:07 PM CDT Procedure: XR PELVIS W RIGHT HIP 2VW ??Exam Date: ??11/21/2022 11:17 AM ?? Location: ??[facility] Indication: M25.551: Pain in right [...] 2VW Exam Date: 11/21/2022 11:17 AM Location: [facility] Indication: M25.551: Pain in right [...]
--- OUTSIDE RECORDS SUMMARY | 2024-07-28 01:00 | XMS_ITS | Encounter Summary ---
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 Faxed from chart. 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
--- OUTSIDE RECORDS SUMMARY | 2024-07-28 01:00 | XMS_ITS | Encounter Summary ---
Author Organization [facility] Address [address] [place] [address] Care Team Providers Care Expeller Operator Name Role Phone Unavailable Primary Care Provider Unavailabl e Encounter Details Date Type Department Care Team (Late Contact Info) Description 09/15/2014 Anesthesia Historic Visit [facility] [address] [place] [phone] Social History Tobacco Use Types Packs/Day Years [...] Description 01/20/2025 10:00 AM CDT Office Visit [facility] - Orth[facility] Surgery [address] [place] [address] Torrey Lafleur MD [address] [facility] [address] [place] [address] documented as of this encounter Visit Diagnoses Not on filedocumented in this encounter
--- OUTSIDE RECORDS SUMMARY | 2024-07-28 01:01 | XMS_ITS | Encounter Summary ---
Author Organization [facility] Address [address] [facility] [place] [address] [place] [address] Care Team Providers Care Serger Name Role Phone Shiv Meehan MD Unavailable Unavailabl Brandie Zheng APRN, PIPE WASHER-C Unavailable Noé Crowley MD Unavailable [phone] Jasper Figueroa MD Unavailable Torrey Lafleur MD Unavailable [phone] Faisal Richardson DO Primary Care Provider [phone] Encounter Details Date Type Department Care Team (Latest Contact Info) Description 12/04/2022 Travel Social History Tobacco Use Types Packs/Day Years Used Date Smoking Tobacco: Never Smokeless Tobacco: Never Sex and Gender Information Value Date Recorded Sex Assigned at Not on file Legal Sex Male 1:42 PM CDT Gender Identity Not on file Sexual Orientation Not on file Occupation Industry Job Start Date Job End Date retired Not on file Not on file Not on file COVID-19 Exposure Response Date Recorded In the last 10 days, have yo u been in contact with someone who was confirmed or suspected to have Coronavirus/COVID-19? No / Unsure 12/04/2022 5:59 AM CDT documented as of this encounter Plan of Treatment Upcoming Encounters Date Type Department Care Team ( Contact Info) Description 12/11/2024 2:00 PM CDT Office Visit [facility] el [address] [place] [address] Brandie Jensen APRN, PIPE WASHER-C [address] [facility] [address] [place] [address] documented as of this encounter Visit Diagnoses Not on filedocumented in this encounter Care Teams Serger Relationship Specialty Start Date End Date Faisal Richardson DO [address] [place] [address] PCP - General FAMILY PRACTICE 11/29/22 Shiv Mehean MD [place] [employer] Foreman CARDIOVASCULAR DISEASE 10/29/17 03/18/24 Brandie Jensen APRN, PIPE WASHER-C [address] [address] NURSE PRACTITIONER 02/08/21 Noé Crowley MD [address] [place] [address] Surgeon ORTHOPAEDIC SURGERY 02/08/21 Jasper Figueroa MD [address] [facility] [place] [address] Surgeon NEUROLOGICAL SURGERY 12/08/21 Torrey Lafleur MD [address] [facility] [place] [address] ORTHOPAEDIC SURGERY 11/22/22 documented as of this encounter
--- OUTSIDE RECORDS SUMMARY | 2024-07-28 01:01 | XMS_ITS | Encounter Summary ---
Author Organization [facility] Address [address] [facility] [place] [address] [place] [address] Care Team Providers Care Cardiac Sonographer Name Role Phone Shiv Meehan MD Unavailable Unavailabl e Brandie Jensen APRN, NUTRITION AIDE-C Unavailable Noé Crowley MD Unavailable Jasper Figueroa MD Unavailable [phone] Torrey Lafleur MD Unavailable [phone] Faisal Richardson DO Primary Care Provider [phone] Reason for Visit * Reason Onset Date Comments Schedule Test 11/29/2022 Encounter Details Date Type Department Care Team ([facility] st Contact Info) Description 11/29/2022 Telephone [facility] [address] [place] [address] Brandie Jensen APRN, NUTRITION AIDE-C [address] [facility] [address] [place] [address] Schedule Test Social History Tobacco Use Types Packs/Day Years [...] suspected to have Coronavirus/COVID-19? No / Unsure 11/29/2022 9:28 AM CDT documented as of this encounter Progress Notes * Brandie Jensen APRN, NUTRITION AIDE-C - 11/29/2022 1:05 PM CDT Spoke to patient's . We have scheduled a stress test at [facility] for 12/04/22 at 5:45 am. Reviewed instructions for stress testing. She v/u. documented in this encounter Plan of Treatment Upcoming Encounters Date Type Department Care Team (Late st Contact Info) Description 12/11/2024 2:00 PM CDT Office Visit [facility] [address] [place] [address] Brandie Jensen APRN, NUTRITION AIDE-C [address] [address] documented as of this encounter Visit Diagnoses Not on filedocumented in this encounter Care Teams Cardiac Sonographer Relationship Specialty Start Date End Date Faisal Richardson DO [address] [place] [address] PCP - General FAMILY PRACTICE 11/29/22 Shiv Meehan MD [place] [employer]er CARDIOVASCULAR DISEASE 10/29/17 03/18/24 Brandie Jensen APRN, NUTRITION AIDE-C [address] [address] NURSE PRACTITIONER 02/08/21 Noé Crowley MD [address] [facility] [address] [place] [place] [address] Surgeon ORTHOPAEDIC SURGERY 02/08/21 Jasper Figueroa MD [address] [facility] [place] [address] Surgeon NEUROLOGICAL SURGERY 12/08/21 Torrey Lafleur MD [address] [facility] [place] [address] ORTHOPAEDIC SURGERY 11/22/22 documented as of this encounter
--- OUTSIDE RECORDS SUMMARY | 2024-07-28 01:01 | XMS_ITS | Encounter Summary ---
Author Organization [facility] Address [address] [place] [address] [place] [address] Care Team Providers Care Starcher And Tenter Range Feeder Name Role Phone Shiv Meehan MD Unavailable Unavailabl e Jesús Wang MD Primary Care Provider Brandie Jensen APRN, BANK AND SAVINGS SECURITIES TRADER-C Unavailable Noé Crowley MD Unavailable [phone] Jasper Figueroa MD Unavailable [phone] Torrey Lafleur MD Unavailable [phone] Reason for Visit * Reason Onset Date Comments Reschedule 11/22/2022 sooner Encounter Details Date Type Department Care Team ([facility] Contact Info) Description 11/22/2022 Telephone [facility] ld [address] [place] [address] Brandie Jensen APRN, BANK AND SAVINGS SECURITIES TRADER-C [address] [facility] [address] [place] [address] Reschedule (sooner) Social History Tobacco Use Types Packs/Day Years [...] as of this encounter Progress Notes * Sophia L Alexus - 11/24/2022 9:11 AM CDT Pt called to cancel echo and carotid duplex. He is getting in [place] and will have the results sent to the office. He will also bring a copy of the report in case the office has not received yet. * Sophia L Alexus - 11/22/2022 1:14 PM CDT Pt called and rescheduled his appt to 11/29/2022 at 10:00 with Brandie Jensen NP due to having hip surgery 12/08/[address] Lafleur. documented in this encounter Plan of Treatment Upcoming Encounters Date Type Department Care Team (Late st Contact Info) Description 12/11/2024 2:00 PM CDT Office Visit [facility] el [address] [place] [address] Brandie Jensen APRN, BANK AND SAVINGS SECURITIES TRADER-C [address] [facility] [address] [place] [address] documented as of this encounter Visit Diagnoses Not on filedocumented in this encounter Care Teams Starcher And Tenter Range Feeder Relationship Specialty Start Date End Date Jesús Wang MD [address] [place] [address] PCP - General FAMILY PRACTICE 04/06/20 11/28/22 Shiv Meehan MD [place] Retail Service Technician CARDIOVASCULAR DISEASE 10/29/17 03/18/24 Brandie Jensen APRN, BANK AND SAVINGS SECURITIES TRADER-C [address] [facility] [address] [place] [address] NURSE PRACTITIONER 02/08/21 oNé Crowley MD [address] [facility] [address] [place] [address] Surgeon ORTHOPAEDIC SURGERY 02/08/21 Jasper Figueroa MD [address] [facility]. [address] [place] [address] Surgeon NEUROLOGICAL SURGERY 12/08/21 Torrey Lafleur MD [address] [facility] [place] [address] ORTHOPAEDIC SURGERY 11/22/22 documented as of this encounter
--- OUTSIDE RECORDS SUMMARY | 2024-07-28 01:01 | XMS_ITS | Encounter Summary ---
Author Organization [facility] Address [address] [facility] [place] [address] [place] [address] Care Team Providers Care Senior J2Ee Developer Name Role Phone Christy Meehan MD Unavailable Unavailabl e Jesús Wang MD Primary Care Provider Brandie Jensen APRN, TRANSIT MECHANIC-C Unavailable Noé Crowley MD Unavailable [phone] Jasper Figueroa MD Unavailable [phone] Torrey Lafleur MD Unavailable [phone] Encounter Details Date Type Department Care Team (Late st Contact Info) Description 11/22/2022 Orders Only [facility] [address] [place] [address] Christy Meehan MD Social History Tobacco Use [...] Department Care Team (Late Contact Info) Description 12/11/2024 2:00 PM CDT Office Visit [facility] el [address] [place] [address] Brandie Jensen APRN, TRANSIT MECHANIC-C [address] [facility] [address] [place] [address] documented as of this encounter Results * ELECTROCARDIOGRAM (NON [place]MARK ACQUIRED) (11/29/2022 9:48 AM CDT) 11/29/2022 9:48 AM CDT Narrative [facility] - 11/29/2022 11:31 AM CDT ? [facility], [facility] ?[address] [place], [place] ??[address] ? Test Date: ?2022-11-29 Pat Name: ? TAYLOR RUTLEDGE ?Department: ?? 105 ? Room: ? Gender: ? Male ? Race Starter: ?? kh : ?1965 ? Requested By: CHRISTY MEEHAN Order Number: [id number] ?Reading MD: ?? Christy Meehan ? Measurements Intervals ?Magee ? Rate: ? 66 ? P: ?37 MS: ? 188 ?QRS: ?14 QRSD: ? 99 ? T: ?-56 QT: ? 382 ? QTc: ?402 ? Interpretive Statements SINUS RHYTHM ST AND T-WAVE ABNORMALITY, CONSIDER INFEROLATERAL ISCHEMIA Procedure Note Christy Meehan MD - 11/29/2022 [facility], [place] [address] [place] [address] Test Date: 2022-11-29 Pat Name: TAYLOR RUTLEDGE Department: 105 Room: Gender: Male Race Starter: kh : 1965 Requested By: CHRISTY MEEHAN Order Number: [id number] Ranjan MD: Christy Meehan Measurements Intervals Magee Rate: 66 P: 37 MS: 188 QRS: 14 QRSD: 99 T: -56 QT: 382 QTc: 402 Interpretive Statements SINUS RHYTHM ST AND T-WAVE ABNORMALITY, CONSIDER INFEROLATERAL ISCHEMIA us Christy Meehan MD PROCEDURES-ORDERABLE NO BEATA RGE Final Result [facility] documented in this encounter Visit Diagnoses Diagnosis Pre-operative cardiovascular examination- Primary Pre-operative cardiovascular examination- Primary Abnormal EKG Nonspecific abnormal electrocardiogram (ECG) (EKG) Coronary artery disease involving [place] coronary artery of [place] vie[place] heart, unspecified whether angina present Difficulty walking Difficulty in walking LVH (left ventricular hypertrophy) Cardiomegaly Nonrheumatic aortic valve stenosis Aortic valve disorders Bilateral carotid artery stenosis Occlusion and stenosis of multiple and bilateral precerebral arteries without mention of cerebral infarction Essential hypertension Unspecified essential hypertension History of CVA (cerebrovascular accident) Transient ischemic attack (TIA), and cerebral infarction without residual deficits Hyperlipidemia, unspecified hyperlipidemia type documented in this encounter Care Teams Senior J2Ee Developer Relationship Specialty Start Date End Date Jesús Wang MD [address] [place] [address] PCP - General FAMILY PRACTICE 04/06/20 11/28/22 Christy Meehan MD [place] Livestock Commission Agent CARDIOVASCULAR DISEASE 10/29/17 03/18/24 Brandie Jensen, CHILD LIFE THERAPIST, TRANSIT MECHANIC-C [address] [facility] [address] [place] [address] NURSE PRACTITIONER 02/08/21 Noé Crowley MD [address] [facility] [address] [place] [address] Surgeon ORTHOPAEDIC SURGERY 02/08/21 Jasper Figueroa MD [address] [facility]. [address] [place] [address] Surgeon NEUROLOGICAL SURGERY 12/08/21 Torrey Lafleur MD [address] [facility] [place] [address] ORTHOPAEDIC SURGERY 11/22/22 documented as of this encounter
--- OUTSIDE RECORDS SUMMARY | 2024-07-28 01:01 | XMS_ITS | Encounter Summary ---
Author Organization [facility] Address [address] [address] [place] [address] Care Team Providers Care Sectionizer Name Role Phone Shiv Meehan MD Unavailable Unavailabl e Jesús Wang MD Primary Care Provider Brandie Jensen APRN, FINAL OPERATIONS TECHNICIAN-C Unavailable Noé Crowley MD Unavailable [phone] Jasper Figueroa MD Unavailable [phone] Reason for Visit * Reason Onset Date Comments Results 01/12/2022 Encounter Details Date Type Department Care Team ([facility] st Contact Info) Description 01/12/2022 Telephone [facility] [address] [place] [address] Brandie Jensen APRN, FINAL OPERATIONS TECHNICIAN-C [address] [facility] [address] [place] [address] Results Social History Tobacco Use Types Packs/Day Years [...] as of this encounter Progress Notes * Sun Chan LPN - 01/12/2022 4:23 PM CDT Did let Mike know that his B/P were stable he is to continue current medications. He does verbalizeunderstanding. * Brandie Jensen APRN, NP-C - 01/12/2022 3:35 PM CDT Afternoon blood pressures are well controlled. We will continue current medications. * Sun Chan LPN - 01/12/2022 3:24 PM CDT Mike did call with B/P readings. B/P in the morning are before taking medications. The afternoon readings are around 2 pm daily. 5/10 AM 141/78 PM 126/69 5/11 AM 145/70 PM 111/71 5/12 AM 141/82 PM 127/69 5/13 AM 117/69 PM 132/72 5/14 AM 148/69 PM 123/70 5/15 AM 146/72 PM 143/81 5/16 AM 138/72 PM 132/71 5/17 AM 149/85 PM 129/74 5/18 AM 135/76 PM 125/68 5/19 AM 121/70 PM 133/76 * Sun Chan LPN - 01/12/2022 3:00 PM CDT Did speak to Mike He is aware of monitor results . Did ask him what his B/P readings have been. He states that he was not at home. He will call in reading tomorrow. * Sun Chan LPN - 01/12/2022 2:59 PM CDT ----- Message from Brandie Jensen APRN FINAL OPERATIONS TECHNICIAN-C sent at 01/12/2022 12:54 PM CDT ----- No atrial fibrillation to explain stroke. How is his blood pressure now? documented in this encounter Plan of Treatment Upcoming Encounters Date Type Department Care Team (Late st Contact Info) Description 12/11/2024 2:00 PM CDT Office Visit [facility] [address] [place] [address] Brandie Jensen APRN, FINAL OPERATIONS TECHNICIAN-C [address] [facility] [address] [place] [address] documented as of this encounter Visit Diagnoses Not on filedocumented in this encounter Care Teams Sectionizer Relationship Specialty Start Date End Date Jesús Wang MD [address] [place] [address] PCP - General FAMILY PRACTICE 04/06/20 11/28/22 Shiv Meehan MD [place] Assistant Grocery CARDIOVASCULAR DISEASE 10/29/17 03/18/24 Brandie Jensen APRN, FINAL OPERATIONS TECHNICIAN-C [address] [facility] [address] [place] [address] NURSE PRACTITIONER 02/08/21 Noé Crowley MD [address] [facility] [address] [place] [address] Surgeon ORTHOPAEDIC SURGERY 02/08/21 Jasper Figueroa MD [address] [facility]. [address] [place] [address] Surgeon NEUROLOGICAL SURGERY 12/08/21 documented as of this encounter
--- OUTSIDE RECORDS SUMMARY | 2024-07-28 01:01 | XMS_ITS | Encounter Summary ---
Author Organization [facility] Address [address] [facility] [place] [address] [place] [address] Care Team Providers Care Automatic Winder Operator Name Role Phone Shiv Meehan MD Unavailable [facility] Jesús Bennett MD Primary Care Provider Brandie Jensen APRN, MANAGER MBA-C Unavailable Noé Crowley MD Unavailable [phone] Encounter Details Date Type Department Care Team (Latest Contact Info) Description 12/05/2021 Travel Social History Tobacco Use Types Packs/Day [...] suspected to have Coronavirus/COVID-19? No / Unsure 12/05/2021 9:29 AM CDT documented as of this encounter Plan of Treatment Upcoming Encounters Date Type Department Care Team (Late st Contact Info) Description 12/11/2024 2:00 PM CDT Office Visit [facility] [place] [address] [place] [phone] Brandie Jensen APRN, MANAGER MBA-C [address] [facility] [address] [place] [address] documented as of this encounter Visit Diagnoses Not on filedocumented in this encounter Care Teams Automatic Winder Operator Relationship Specialty Start Date End Date Jesús Wang MD [address] [place] [address] PCP - General FAMILY PRACTICE 04/06/20 11/28/22 Shiv Meehan MD [place] Virtualization Engineer CARDIOVASCULAR DISEASE 10/29/17 03/18/24 Brandie Jensen APRN, MANAGER MBA-C [address] [facility] [address] [place] [address] NURSE PRACTITIONER 02/08/21 Noé Crowley MD [address] [facility] [address] [place] [address] Surgeon ORTHOPAEDIC SURGERY 02/08/21 documented as of this encounter
--- OUTSIDE RECORDS SUMMARY | 2024-07-28 01:01 | XMS_ITS | Encounter Summary ---
Author Organization [facility] Address [address] [facility] [place] [address] [place] [address] Care Team Providers Care Brick Paving Checker Name Role Phone Shiv Meehan MD Unavailable Unavailabl e Jesús Wang MD Primary Care Provider Brandie Jensen APRN, INFANTRY OFFICER-C Unavailable Noé Crowley MD Unavailable [phone] Jasper Figueroa MD Unavailable [phone] Encounter Details Date Type Department Care Team (Latest Contact Info) Description 12/08/2021 Travel Social History Tobacco Use Types Packs/Day [...] suspected to have Coronavirus/COVID-19? No / Unsure 12/08/2021 8:55 AM CDT documented as of this encounter Plan of Treatment Upcoming Encounters Date Type Department Care Team (Late st Contact Info) Description 12/11/2024 2:00 PM CDT Office Visit [facility] [place] [address] [place] [address] Brandie Jensen APRN, INFANTRY OFFICER-C [address] [facility] [address] [place] [address] documented as of this encounter Visit Diagnoses Not on filedocumented in this encounter Care Teams Brick Paving Checker Relationship Specialty Start Date End Date Jesús Wang MD [address] [place] [address] PCP - General FAMILY PRACTICE 04/06/20 11/28/22 Shiv Meehan MD [place] Materials Manager CARDIOVASCULAR DISEASE 10/29/17 03/18/24 Brandie Jensen APRN, INFANTRY OFFICER-C [address] [facility] [address] [place] [address] NURSE PRACTITIONER 02/08/21 Noé Crowley MD [address] [facility] [address] [facility] [address] [place] [address] Surgeon ORTHOPAEDIC SURGERY 02/08/21 Jasper Figueroa MD [address] [facility]. [address] [place] [address] Surgeon NEUROLOGICAL SURGERY 12/08/21 documented as of this encounter
--- OUTSIDE RECORDS SUMMARY | 2024-07-28 01:01 | XMS_ITS | Encounter Summary ---
Author Organization [facility] Address [address] [place] [address] [place] [address] Care Team Providers Care Oven Drier Tender Name Role Phone Shiv Meehan MD Unavailable Unavailabl e Brandie Jensen APRN, SOLE SKIVER-C Unavailable Noé Crowley MD Unavailable [phone] Jasper Figueroa MD Unavailable [phone] Torrey Lafleur MD Unavailable [phone] Faisal Richardson DO Primary Care Provider [phone] Reason for Referral * Procedure (Routine) - Closed Specialty Diagnoses / Procedures Referred By Contac t Referred To Contact Diagnoses Chest pain, unspecified type Procedures Stress Test (Nuclear) [facility] [address] [place] [address] [place] [address] Phone: tel: Referral ID Status Reason Start Date Expiration Date Visits Re quested Visits Authorized [id number] Closed 12/04/2022 12/05/2023 1 1 Reason for Visit * Imaging (Routine) - Closed Specialty Diagnoses / Procedures Referred By Contac t Referred To Contact RADIOLOGY Diagnoses Pre-operative cardiovascular examination Abnormal EKG Coronary artery disease 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, unspecified whether angina present Difficulty walking Nonrheumatic aortic valve stenosis Essential hypertension LVH (left ventricular hypertrophy) Procedures NM PHARM NUC STRESS TEST 1DAY NM PHARM NUC STRESS TEST 1DAY Brandie Jensen APRN, SOLE SKIVER-C [address] [facility] [address] [place] [address] Phone: tel: fax: Referral ID Status Reason Start Date Expiration Date Visits Re quested Visits Authorized [id number] Closed 11/29/2022 11/30/2023 1 3 Encounter Details Date Type Department Care Team (Latest Contact Info) Description 12/04/2022 6:00 AM CDT - 12/04/2022 11:59 PM CDT Hospital Encounter [facility] [address] [place] [address] [place] [address] Brandie Jensen APRN, SOLE SKIVER-C [id number] [place] [address] [place] [address] [address] [place] [address] Discharge Disposition: Home or Self Care (Routine [...] AM CDT documented as of this encounter Medications at Time of Discharge Acetaminophen 500 MG Cap Take 1,000 mg by mouth as needed. 05/03/2022 betamethasone dipropionate 0.05 % ointment as needed. 10/10/2021 CARVEDILOL 25 MG tablet TAKE ONE TABLET BY MOUTH TWICE A DAY 180 tablet 1 09/28/2021 clopidogrel (PLAVIX) 75 MG tablet Take 1 [...] with meals. 11/12/2017 Multiple Vitamins-Minerals (EQ COMPLETE MULTIVITAMIN-ADUL T) Tab Take 1 tablet by mouth daily. 08/06/2022 probiotic (FLORAJEN3) Cap capsule Take 1 capsule by mouth daily with breakfast. 08/06/2022 amLODIPine (NORVASC) 5 MG tablet TAKE ONE TABLET BY MOUTH DAILY 30 tablet 11 03/06/2022 3 amoxicillin (AMOXIL) 500 MG capsule Prior to dental appointments 11/22/2022 3 Cholecalciferol (D3) 50 MCG (2000 UT) Tab Take 50 mcg by mouth daily. 08/06/2022 4 cloNIDine 0.1 MG tablet Take 1 tablet (0.1 mg total) by mouth 2 (two) times daily. 11/12/2017 3 diclofenac sodium 75 MG tablet Take 1 tablet (75 mg total) by mouth 2 (two) times daily. 11/12/2017 3 Docusate Sodium (DSS) 100 MG Cap Take 100 mg by mouth 2 (two) times daily. 05/03/2022 4 rosuvastatin (CRESTOR) 20 MG tablet Take 1 tablet (20 mg total) by mouth daily. 01/29/2022 3 sertraline (ZOLOFT) 50 MG tablet Take 1 tablet (50 mg total) by mouth daily. 3 TRULICITY 1.5 MG/0.5ML Solution Pen-injector Inject 1.5 mg into the skin weekly. 12/05/2021 3 documented as of this encounter Procedure Notes * Zenobia Hawley RN - 12/04/2022 8:00 AM CDT C/o headache 4/10 with Lexiscan injection. Headache subsided within 5 min of Lexiscan injection. Served diet pepsi. documented in this encounter Plan of Treatment Upcoming Encounters Date Type Department Care Team (Late st Contact Info) Description 12/11/2024 2:00 PM CDT Office Visit [facility] [address] [place] [address] Brandie Jensen APRN, SOLE SKIVER-C [address] [address] documented as of this encounter Procedures Procedure Name Priority Date/Time Associated Diagnosis Comments CARDIOLOGY STRESS TEST ONLY, EXERCISE Routine 12/04/2022 7:42 AM CDT Chest pain, unspecified type documented in this encounter Visit Diagnoses Diagnosis Chest pain, unspecified type- Primary documented in this encounter Administered Medications Inactive Administered Medications - up to 3 most recent administrations Medication Order MAR Action Action Date Dose Rate Site regadenoson (LEXISCAN) injection 0.4 mg 0.4 mg, Intravenous, Once, 1 dose, On Sun12/04/22 at 0815, Administer over 10 seconds Given 12/04/2022 8:07 AM CDT 0.4 mg documented in this encounter Care Teams Oven Drier Tender Relationship Specialty Start Date End Date Faisal Richardson DO [address] [place] [address] PCP - General FAMILY PRACTICE 11/29/22 Shiv Meehan MD [place] Quality Systems Specialist CARDIOVASCULAR DISEASE 10/29/17 03/18/24 Brandie Jensen APRN, SOLE SKIVER-C [address] [address] NURSE PRACTITIONER 02/08/21 Noé Crowley MD [address] [facility] [address] [place], [place] [address] Surgeon ORTHOPAEDIC SURGERY 02/08/21 Jasper Figueroa MD [address] [facility]. [address] [place] [address] Surgeon NEUROLOGICAL SURGERY 12/08/21 Torrey Lafleur MD [address] [facility] [place] [address] ORTHOPAEDIC SURGERY 11/22/22 documented as of this encounter
--- OUTSIDE RECORDS SUMMARY | 2024-07-28 01:01 | XMS_ITS | Encounter Summary ---
Author Organization [facility] Address [address] [facility]. [place], [place] [address] [place] [id number] Care Team Providers Care Religious Ritual Slaughterer Name Role Phone Christy Meehan MD Unavailable Unavailabl e Jesús Wheat MD Primary Care Provider Brandie Jensen APRN, NP-C Unavailable Noé Crowley MD Unavailable [phone] Jasper Figueroa MD Unavailable [phone] Reason for Referral * Imaging (Routine) - Closed Specialty Diagnoses / Procedures Referred By Contac t Referred To Contact RADIOLOGY Diagnoses Nonrheumatic aortic valve stenosis Procedures USE ECHOCARDIOGRAM Brandie Jensen APRN, NP-C [address] [facility] [address] [place] [address] Phone: tel: fax: Referral ID Status Reason Start Date Expiration Date Visits Re quested Visits Authorized [id number] Closed 11/23/2022 05/25/2023 1 1 * Imaging (Routine) - Closed Specialty Diagnoses / Procedures Referred By Contac t Referred To Contact RADIOLOGY Diagnoses Bilateral carotid artery stenosis Procedures USV CAROTID DUPLEX ELEAZAR Brandie Jensen APRN, NP-C [address] [address] Phone: tel: fax: Referral ID Status Reason Start Date Expiration Date Visits Re quested Visits Authorized [id number] Closed 11/23/2022 05/25/2023 1 1 * Imaging (Routine) - Closed Specialty Diagnoses / Procedures Referred By Kd t Referred To Contact Diagnoses Recent cerebrovascular accident (CVA) Procedures CLINIC - OUTPATIENT EVENT RECORDER (ECG) UP TO 30 DAYS COMPLETE (Holter) Brandie Jensen APRN, NP-C [address] [address] Phone: tel: fax: [facility] [address] [place] [address] Phone: tel: fax: Referral ID Status Reason Start Date Expiration Date Visits Re quested Visits Authorized [id number] Closed 12/08/2021 01/08/2023 1 1 Reason for Visit * Reason Comments Follow Up recent CVA Encounter Details Date Type Department Care Team (Late st Contact Info) Description 12/08/2021 9:00 AM CDT Office Visit [facility] [address] [place] [address] Brandie Jensen APRN, NP-C [address] [address] Follow Up (recent CVA) Social History Tobacco Use Types Packs/Day Years [...] In the last 10 days, have paxton sesay been in contact with someone who was confirmed or suspected to have Coronavirus/COVID-19? No / Unsure 12/08/2021 8:55 AM CDT documented as of this encounter Last Filed Vital Signs Vital Sign Reading Time Taken Comments Blood Pressure 146/82 12/08/2021 8:59 AM CDT Pulse 74 12/08/2021 8:59 AM CDT Temperature - - Respiratory Rate 16 12/08/2021 8:59 AM CDT Oxygen Saturation 98% 12/08/2021 8:59 AM CDT Inhaled Oxygen Concentration - - Weight 125.5 kg (276 lb 9.6 oz) 12/08/2021 8:59 AM CDT Height 182.9 cm (6') 12/08/2021 8:59 AM CDT Body Mass Index 37.51 12/08/2021 8:59 AM CDT documented in this encounter Patient Instructions * Patient Instructions* Brandie Jensen APRN, NP-C - 12/08/2021 9:00 AM CDT 1. Monitor today. 2. Start amlodipine 5 mg daily. 3. Call with blood pressures in 2 weeks. 4. We may then increase amlodipine and decrease clonidine if possible. 5. Echo and carotid ultrasound next year. Call if you develop any symptoms sooner. documented in this encounter Progress Notes * Brandie Jensen APRN, NP-C - 12/08/2021 9:00 AM CDT FROM: Brandie Jensen APRN, NP-C, collaborating physician Christy Meehan III, M.D. RE: Jose Rutledge : 1965 Reason for Visit: Follow Up (recent CVA) History of Present Illness: Mr. Rutledge is a pleasant 56-year-old male seen in the cardiology clinic today for a followup visit after a recent CVA. He has a history of mild coronary artery disease, aortic stenosis,??LVH,??hypertension, hyperlipidemia, sleep apnea, and diabetes. On 10/05/2021 he was admitted to [facility] for dizziness. An MRI revealed a left medullary stroke. His head and neck CTA revealed 56% proximal right ICA stenosis and less than 50% left ICA stenosis. His echocardiogram demonstrated an LVEF 60% with moderate to severe aortic stenosis with a peak gradient 32 mmHg, mean gradient 17 mmHg, and aortic valve area 1.1 cm??, and no evidence ofPFO. He was started on Plavix and his Crestor was increased at that time. He was then readmitted on10/25/2021 after an acute dizziness episode leading to a fall. He tells me that his Plavix has sincebeen discontinued, and he was not informed of any specific etiology to his stroke. He denies any anginal chest pain, shortness of breath, or dyspnea upon exertion. He denies any claudication. He denies any overt symptoms of congestive heart failure such as paroxysmal nocturnal dyspnea, orthopnea, or pedal edema. He has now started CPAP therapy. He has no palpitations. He will still have lightheadedness with certain position changes, but has completed rehab. He denies syncope. He denies any new signs and symptoms of CVA or TIA. His CVA symptoms were dizziness, and he has also noticed an inability to sense temperature on his right side. He has also noticed that his right sidepain, which radiates from his back has worsened since the stroke. He seems to be tolerating his present medications well without reported side effects. He denies signs of bleeding. Evaluation during the clinic visit included an EKG which confirmed the presence of sinus rhythm at a rate of 74 beats per minute with inferior repolarization abnormalities similar to his previous EKG. Recommendations/Plan: Mr. Rutledge's cardiac status appears clinically stable without ongoing anginal chest pain, symptoms of congestive heart failure, or signs of an underlying arrhythmia, but unfortunately he has suffered a cryptogenic stroke. Evaluation at [facility] included ruling out a PFO and evaluation of his carotid arteries. He denies wearing a monitor to rule out any occult atrial fibrillation. Further evaluation into his underlying rhythm, continued medical therapy and aggressive cardiac risk factor modification seem most appropriate at the present time. I have recommended the following to Mr. Rutledge: 1. Recent CVA. We will order a 30-day body guardian monitor to rule out the presence of any atrial fibrillation. He will continue to follow-up with neurology, and continue his aspirin and statin. 2. Carotid Stenosis. His CTA revealed 56% right ICA stenosis and less than 50% left ICA stenosis. We will plan to repeat carotid dopplers next year. He will continue aspirin and statin therapy. 3. CAD. He denies symptoms consistent with myocardial ischemia. We will continue current medical therapy. 4. Aortic Stenosis. His echocardiogram in the hospital suggested moderate to severe aortic stenosis, but his gradients were relatively stable compared to his last study (PG 30 mmHg, MG 18 mmHg in 2020, PG 32 mmHg, MG 17 mmHg in 2021). He is asymptomatic, and his blood pressure was elevated during his hospitalization due to the CVA. Therefore, we will plan to repeat an echocardiogram next year. I encouraged him to notify the office if he develops any symptoms prior to this. 5. Hypertension. His blood pressure is elevated in the office today. He tells me that his amlodipine 10 mg was discontinued this past month. Since that time, he has had an increase in his blood pressures, as high as 160 mmHg systolic. Therefore, I will restart amlodipine at 5 mg daily. I have askedhim to call the office with an update on his blood pressure in 2 weeks. We discussed that if his blood pressure becomes too low, I would rather discontinue his clonidine rather than the amlodipine. Ideally, I would like his blood pressure less than 130/80 mmHg consistently. 6. Hyperlipidemia. He is currently treated with rosuvastatin and denies reported side effects. An LDL less than 70 is recommended. 7. Preoperative Cardiac Risk Assessment. He tells me that he is going to undergo a lumbar spine surgery by Dr. Figueroa at [facility] at the end of February. His last cardiac catheterization in November 2017 demonstrated a normal LAD, mild luminary irregularities of the RCA, and mild disease of the circumflex. His planned spinal surgery is an intermediate risk procedure from a cardiovascular standpoint. I believe that his cardiovascular risk of the procedure is moderately increased in light ofhis known coronary artery disease, hypertension, CVA, and diabetes. This moderately increased cardiovascular risk is felt to be acceptable in light of the overall clinical situation. However, I did instruct him to also obtain recommendations from neurology before proceeding with surgery. At the time of surgery, I would recommend the followin. Perioperative telemetry monitoring. 2. Perioperative maintenance of beta blockade and statin therapy. 3. Maintenance of a serum hemoglobin of 8.0 or greater. We will plan to see Mr. Rutledge in one year with carotid dopplers and an echocardiogram prior to his appointment. I have encouraged him to contact me in the meantime should he have any questions or problems. Addendum 05/01/22: Mr. Rutledge will now be undergoing a hip replacement on 06/21/22. This is also an intermediate risk procedure from a cardiovascular standpoint. He denies any new cardiac symptoms since his last visit, and he denies any cardiac complications following his lumbar surgery this summer. Therefore, his preoperative cardiac risk assessment above still applies to his upcoming surgery. An EKG can be performedat his preop appointment at his primary care office. No further cardiac testing is needed at this time. Medications: Current Outpatient Medications: ??? amLODIPine 5 MG tablet, Take 1 tablet (5 mg total) by mouth daily., Disp: 30 tablet, Rfl: 1 ??? aspirin EC 81 MG EC tablet, Take 81 mg by mouth daily., Disp: , Rfl: ??? CARVEDILOL 25 MG tablet, TAKE ONE TABLET BY MOUTH TWICE A DAY, Disp: 180 tablet, Rfl: 1 ??? cloNIDine 0.1 MG tablet, Take 0.1 mg by mouth 2 (two) times daily. , Disp: , Rfl: ??? cyclobenzaprine 10 MG tablet, Take 10 mg by mouth 2 (two) times a day. , Disp: , Rfl: ??? diclofenac sodium 75 MG tablet, Take 75 mg by mouth 2 (two) times daily. , Disp: , Rfl: ??? Losartan Potassium-HCTZ 100-12.5 MG Tab, Take 1 tablet by mouth daily. , Disp: , Rfl: ??? metFORMIN 1000 MG tablet, Take 1,000 mg by mouth 2 (two) times daily with meals. , Disp: , Rfl: ??? rosuvastatin 40 MG tablet, Take 40 mg by mouth daily., Disp: , Rfl: ??? TRULICITY 1.5 MG/0.5ML Solution Pen-injector, Inject 1.5 mg into the skin weekly., Disp: , Rfl: ??? betamethasone dipropionate 0.05 % ointment, as needed., Disp: , Rfl: Allergies Allergen Reactions ??? Penicillins Unknown and Angioedema Past Medical History: Diagnosis Date ??? Abnormal stress test ??? Back pain need surgery here for clearance ??? Bleeding ulcer ??? Diabetes (CMS/HCC) ??? Heart burn ??? HTN (hypertension) ??? Hyperlipidemia ??? Mild coronary artery disease ??? Neuropathy ??? Tinnitus Past Surgical History: Procedure Laterality Date ??? APPENDECTOMY ??? BACK SURGERY 2017 ??? HEART CATH 11/23/2017 ??? REPAIR ROTATOR CUFF,CHRONIC Social History Tobacco Use ??? Smoking status: Never Smoker ??? Smokeless tobacco: Never Used Family History Problem Relation Name Age of Onset ??? Diabetes Mother ??? Hypertension Mother ??? Cancer Father ??? Cancer Brother ??? CHF Brother ??? Open Heart Paternal Uncle ??? Open Heart Paternal Uncle Family Status Relation Name Status ??? Mother ??? Father ??? Brother (Not Specified) ??? PUncle (Not Specified) ??? PUncle (Not Specified) Review of Systems Constitutional: Negative for recent unintentional weight gain, recent unintentional weight loss andnew or significant fatigue. HENT: Negative for new or significant hearing loss. Eyes: Negative for blurred vision and double vision. Respiratory: Negative for cough, new or significant shortness of breath and snoring. Cardiovascular: See HPI. Gastrointestinal: Negative for blood in stool and melena. Genitourinary: Negative for dysuria. Musculoskeletal: Negative for myalgias and new or worsening joint stiffness/pain. Skin: Negative for rash. Neurological: Positive for dizziness. Negative for tingling/numbness and focal weakness. Endo/Heme/Allergies: Negative for new or significant bruising/bleeding and polydipsia. Psychiatric/Behavioral: Negative for depression and new or significant memory loss. Vitals: 12/08/21 0859 BP: (!) 146/82 Patient Position: Sitting BP Location: Left arm Pulse: 74 Weight: 125.5 kg (276 lb 9.6 oz) Height: 6' (1.829 m) Body mass index is 37.51 kg/m??. Cardiac Exam Rate/Rhythm: Normal rate and regular rhythm. PMI: Pulses: Normal pulses. Dorsalis pedis pulses are 2+ on the right side and 2+ on the left side. Posterior tibial pulses are 2+ on the right side and 2+ on the left side. Heart Sounds: Normal S1 sounds. Normal S2 sounds. No gallop present. No S3. No S4. Murmurs: Murmur present Harsh midsystolic murmur is present with a grade of 3/6 at the upper right sternal border radiatingto the neck. Edema left: 0. Edema Right: 0. Physical Exam Constitutional: No distress. Healthy Appearance. HENT: Mask. Eyes: Pupils equal, round, and reactive to light. Conjunctivae normal. Neck: Neck supple. No JVD. Abdomen: Abdomen soft. Bowel sounds normal. No distension. No tenderness. Abdominal aorta not palpably enlarged. No abdominal bruit present. Pulmonary: Effort normal. Breath sounds normal. Skin: Dry. Warm. No rash. No jaundice. No cyanosis. No clubbing. No xanthoma. Musculoskeletal: No kyphosis. Normal ROM. Neurological: Alert. Oriented x 3. Comments: Diagnoses/Impression: 1. Recent cerebrovascular accident (CVA) CLINIC - OUTPATIENT EVENT RECORDER (ECG) UP TO 30 DAYS COMPLETE (Holter) 2. Bilateral carotid artery stenosis USV CAROTID DUPLEX ELEAZAR 3. Mild coronary artery disease 4. Nonrheumatic aortic valve stenosis USE ECHOCARDIOGRAM 5. Essential hypertension 6. Hyperlipidemia, unspecified hyperlipidemia type 7. Preop cardiovascular exam Referring Provider: Jesús Wheat,* PCP: JESÚS WHEAT MD documented in this encounter Plan of Treatment Upcoming Encounters Date Type Department Care Team (Late st Contact Info) Description 12/11/2024 2:00 PM CDT Office Visit [facility] [address] [place] [address] Brandie Jensen APRN, NP-C [address] [facility] [address] [place] [address] documented as of this encounter Procedures Procedure Name Priority Date/Time Associated Diagnosis Comments ELECTROCARDIOGRAM (NON MIDMARK ACQUIRED) Routine 12/08/2021 9:04 AM CDT Mild coronary artery disease Essential hypertension documented in this encounter Results * USE ECHOCARDIOGRAM (11/24/2022) Anatomical Region Laterality Modality Cardiac Echocardiogram us BELLO Velarde APRN ECHO Final Result * USV CAROTID DUPLEX ELEAZAR (11/24/2022) Anatomical Region Laterality Modality Neck Vascular Ultraso und BELLO Lee APRN US VASC Final Result * CLINIC - OUTPATIENT EVENT RECORDER (ECG) UP TO 30 DAYS COMPLETE (Holter) (01/11/2022 8:31 PM CDT) Narrative [facility] - 01/11/2022 8:31 PM CDT AMBULATORY CARDIAC RHYTHM MONITORING Body guard INDICATION: cva/tia ORDERING PROVIDER: mary INTERPRETING PROVIDER: Yousuf Roy MD PERIOD OF MONITORIN/5-01/06/2022 EFFECTIVE MONITORINd 16h CUMULATIVE DATA: Range: 52-133 Average: 74 Tachycardia: <1% Bradycardia: 1% SINUS NODE: Bradycardia: normal Inappropriate tachycardia: normal Chronotropic competence: normal Pause more than 3 seconds: 0 Observation: normal function ATRIOVENTRICULAR NODE: Heart block: no Ventricular Pause more than 3 seconds: 0 Observation: normal function SUPRAVENTRICULAR ??ARRHYTHMIA: Premature atrial contraction: <1% Atrial tachycardia: very brief atrial tach Atrial fibrillation or flutter: - Other supraventricular arrhythmia: - VENTRICULAR ARRHYTHMIA: Premature ventricular contraction: <1% Ventricular couplets: 5 Non-sustained ventricular tachycardia: - Sustained ventricular tachycardia: - Idioventricular rhythm: - SYMPTOMS: No symptoms CONCLUSIONS: Specifically no atrial fib Yousuf Roy MD Clinical Cardiac Associate Publisher [facility] us Brandie Jensen APRN, NP-C CV VASCULAR ORDERABLE S Final Result [facility] * ELECTROCARDIOGRAM (12/08/2021 9:04 AM CDT) 12/08/2021 9:04 AM CDT Narrative [facility] - 12/09/2021 12:56 PM CDT ? [facility], [facility] ?[address] [place], [place] ??[address] ? Test Date: ?2021-12-08 Pat Name: ? JOSE RUTLEDGE ?Department: ?? 105 ? Room: ? Gender: ? Male ? Propagation Manager: ?? : ?1965 ? Requested By: CHRISTY MEEHAN Order Number: [id number] ?Reading MD: ?? Christy Meehan ? Measurements Intervals ?[place] ? Rate: ? 74 ? P: ?23 HI: ? 186 ?QRS: ?4 QRSD: ? 108 ?T: ?-29 QT: ? 375 ? QTc: ?419 ? Interpretive Statements SINUS RHYTHM NONSPECIFIC T-WAVE ABNORMALITY Procedure Note Christy Meehan MD - 12/09/2021 [facility], [address] [address] Test Date: 2021-12-08 Pat Name: JOSE RUTLEDGE Department: 105 Room: Gender: Male Propagation Manager: : 1965 Requested By: CHRISTY MEEHAN Order Number: [id number] Ranjan MD: Christy Meehan Measurements Intervals [place] Rate: 74 P: 23 HI: 186 QRS: 4 QRSD: 108 T: -29 QT: 375 QTc: 419 Interpretive Statements SINUS RHYTHM NONSPECIFIC T-WAVE ABNORMALITY us Christy Meehan MD PROCEDURES-ORDERABLE NO BEATA RGE Final Result [facility] documented in this encounter Visit Diagnoses Diagnosis Recent cerebrovascular accident (CVA)- Primary Bilateral carotid artery stenosis Occlusion and stenosis of multiple and bilateral precerebral arteries without mention of cerebral infarction Mild coronary artery disease Nonrheumatic aortic valve stenosis Aortic valve disorders Essential hypertension Unspecified essential hypertension Hyperlipidemia, unspecified hyperlipidemia type Preop cardiovascular exam Pre-operative cardiovascular examination Recent cerebrovascular accident (CVA) documented in this encounter Care Teams Religious Ritual Slaughterer Relationship Specialty Start Date End Date Jesús Wheat MD [address] [place] [address] PCP - General FAMILY PRACTICE 04/06/20 11/28/22 Christy Meehan MD [place] [employer]aster CARDIOVASCULAR DISEASE 10/29/17 03/18/24 Brandie Jensen, [facility], BREAST WORKER-C [address] [facility] [address] [place] [address] NURSE PRACTITIONER 02/08/21 Noé Crowley MD [address] [facility] [address] [place] [address] Surgeon ORTHOPAEDIC SURGERY 02/08/21 Jasper Figueroa MD [address] [facility]. [address] [place], [place] [address] Surgeon NEUROLOGICAL SURGERY 12/08/21 documented as of this encounter
--- OUTSIDE RECORDS SUMMARY | 2024-07-28 01:01 | XMS_ITS | Encounter Summary ---
Author Organization [facility] Address [address] [facility] [address] [place] [address] Care Team Providers Care Emergency Care Attendant Name Role Phone Shiv Meehan MD Unavailable [facility] Jesús Bennett MD Primary Care Provider Brandie Jensen APRN, AIRLINE RESERVATIONIST-C Unavailable Noé Crowley MD Unavailable [phone] Reason for Visit * Reason Onset Date Comments Other 10/28/2021 Stroke Encounter Details Date Type Department Care Team (Late st Contact Info) Description 10/28/2021 Telephone [facility] [address] [place] [address] Shiv Meehan MD Other (Stroke) Social History Tobacco Use Types Packs/Day Years [...] as of this encounter Progress Notes * Christiane Hammer - 11/24/2021 9:40 AM CDT Jose called today and moved his appointment to 12/08/21 at 9:00 at with Brandie. * Christiane Hammer - 11/23/2021 3:28 PM CDT I contacted patient and let him know there were no openings with Dr. Meehan in [place] or [place]. I discussed scheduling an appointment with Brandie in [place]. He is at his PCP at this time and will call to schedule with Brandie. * Aleta العلي RN - 11/01/2021 9:16 AM CDT Images from the original note were not included. 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 He was told to contact Dr. Meehan with this info and to make an appointment sooner than February. I told Jose I would send this message to Aleta to see about being worked in sooner for Moderate to Severe . He can be reached at [phone]. Indications: Stroke / TIA. STUDY CONCLUSIONS: SUMMARY: -- - Left ventricle: The cavity size was normal. Wall thickness was normal. ?Global systolic function was normal. The estimated ejection fraction was ?60%. - Aortic valve: Not well visualized. Trileaflet; moderately thickened, ?moderately calcified leaflets. There was moderate to severe stenosis. The ?mean systolic gradient is 17mm Hg. The peak systolic gradient is 32mm Hg. ?The valve area by the velocity-time integral method is 1.1cm^2. - Left atrium: The atrium was normal in size. - Right??ventricle: The cavity size was normal. Systolic function was normal. - Atrial septum: Agitated saline contrast study shows no [id number] shunt. documented in this encounter Plan of Treatment Upcoming Encounters Date Type Department Care Team (Late st Contact Info) Description 12/11/2024 2:00 PM CDT Office Visit [facility] [address] [place] [address] Brandie Jensen APRN, AIRLINE RESERVATIONIST-C [address] [facility] [address] [place] [address] documented as of this encounter Visit Diagnoses Not on filedocumented in this encounter Care Teams Emergency Care Attendant Relationship Specialty Start Date End Date Jesús Wang MD [address] [place] [address] PCP - General FAMILY PRACTICE 04/06/20 11/28/22 Shiv Meehan MD [place] Tower Equipment Installer CARDIOVASCULAR DISEASE 10/29/17 03/18/24 Brandie Jensen APRN, AIRLINE RESERVATIONIST-C [address] [facility] [address] [place] [address] NURSE PRACTITIONER 02/08/21 Noé Crowley MD [address] [facility] [address] [place], [place] [id number] Surgeon ORTHOPAEDIC SURGERY 02/08/21 documented as of this encounter
--- OUTSIDE RECORDS SUMMARY | 2024-07-28 01:01 | XMS_ITS | Encounter Summary ---
Author Organization [facility] Address [address] [place] [address] [place] [address] Care Team Providers Care [facility] Shift Lead Name Role Phone Christy Meehan MD Un[facility] Jesús Bennett MD Primary Care Provider Brandie Jensen APRN, DRUM SANDER-C Unavailable Noé Crowley MD Unavailable [phone] Encounter Details Date Type Department Care Team (Late Contact Info) Description 02/08/2021 Orders Only [facility] [address] [place] [phone] Christy Meehan MD Social History Tobacco Use [...] 2:00 PM CDT Office Visit [facility] [address] [place] [address] Brandie Jensen, SHANNAN, DRUM SANDER-C [address] [facility] [address] [place] [address] documented as of this encounter Procedures Procedure Name Priority Date/Time Associated Diagnosis Comments ELECTROCARDIOGRAM (NON MIDMARK ACQUIRED) Routine 02/08/2021 3:26 PM CDT Essential hypertension documented in this encounter Results * ELECTROCARDIOGRAM (02/08/2021 3:26 PM CDT) 02/08/2021 3:26 PM CDT Narrative [facility] - 02/10/2021 10:56 PM CDT ? [facility] ?[address], [place] ??[address] ? Test Date: ?2021-02-08 Pat Name: ? TAYLOR RUTLEDGE ?Department: ? Room: ? Gender: ? Male ? Travograph Operator: ?? : ?1965 ? Requested By: CHRISTY MEEHAN Order Number: [id number] ?Reading MD: ?? Christy Meehan ? Measurements Intervals ?[place] ? Rate: ? 59 ? P: ?21 ND: ? 174 ?QRS: ?5 QRSD: ? 108 ?T: ?-23 QT: ? 382 ? QTc: ?381 ? Interpretive Statements SINUS BRADYCARDIA NONSPECIFIC ST & T-WAVE ABNORMALITY Procedure Note Christy Meehan MD - 02/10/2021 [facility], [place] [address] [place] [address] Test Date: 2021-02-08 Pat Name: TAYLOR RUTLEDGE Department: Room: Gender: Male Travograph Operator: : 1965 Requested By: CHRISTY MEEHAN Order Number: [id number] Ranjan VALDEZ: Christy Meehan Measurements Intervals [place] Rate: 59 P: 21 ND: 174 QRS: 5 QRSD: 108 T: -23 QT: 382 QTc: 381 Interpretive Statements SINUS BRADYCARDIA NONSPECIFIC ST & T-WAVE ABNORMALITY us Christy Meehan MD PROCEDURES-ORDERABLE NO BEATA RGE Final Result [facility] documented in this encounter Visit Diagnoses Diagnosis Essential hypertension- Primary Unspecified essential hypertension documented in this encounter Care Teams [facility] Shift Lead Relationship Specialty Start Date End Date Jesús Wang MD [address] [place] [address] PCP - General FAMILY PRACTICE 04/06/20 11/28/22 Christy Meehan MD [place] Fagot Maker CARDIOVASCULAR DISEASE 10/29/17 03/18/24 Brandie Jensen, FSR, DRUM SANDER-C [address] [facility] [address] [place] [address] NURSE PRACTITIONER 02/08/21 Noé Crowley MD [address] [place] [address] Surgeon ORTHOPAEDIC SURGERY 02/08/21 documented as of this encounter
--- OUTSIDE RECORDS SUMMARY | 2024-07-28 01:01 | XMS_ITS | Encounter Summary ---
Author Organization [facility] Address [address] [place] [address] [place] [address] Care Team Providers Care Wash House Worker Name Role Phone Shiv Meehan MD Unavailable Unavailabl e Jesús Wang MD Primary Care Provider Brandie Jensen APRN, RENAL SOCIAL WORKER-C Unavailable Noé Crowley MD Unavailable [phone] Jasper Figueroa MD Unavailable [phone] Reason for Visit * Reason Onset Date Comments Follow Up Call 05/01/2022 Encounter Details Date Type Department Care Team ([facility] st Contact Info) Description 05/01/2022 Telephone [facility] [address] [place] [address] Brandie Jensen APRN, RENAL SOCIAL WORKER-C [address] [facility] [address] [place] [address] Follow Up Call Social History Tobacco Use Types Packs/Day Years [...] Notes * Brandie Jensen APRN, NP-C - 05/01/2022 12:57 PM CDT Spoke with Mike. I received a fax requesting cardiac risk assessment prior to undergoing a hip replacement on 06/21/22. He denies any new cardiac symptoms since his last visit, no chest pain, shortness of breath, or palpitations. He can walk and climb a flight of stairs without exertional difficulty. 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 He denies any cardiac symptoms following his lumbar surgery this summer. Therefore, I will addend my last note to include his hip surgery. We will see him back this spring. He v/u. documented in this encounter Plan of Treatment Upcoming Encounters Date Type Department Care Team (Late st Contact Info) Description 12/11/2024 2:00 PM CDT Office Visit [facility] eld [address] [place] [address] Brandie Jensen APRN, NP-C [address] [phone] documented as of this encounter Visit Diagnoses Not on filedocumented in this encounter Care Teams Wash House Worker Relationship Specialty Start Date End Date Jesús Wang MD [address] [place] [address] PCP - General FAMILY PRACTICE 04/06/20 11/28/22 Shiv Meehan MD [place] Business Intern CARDIOVASCULAR DISEASE 10/29/17 03/18/24 Brandie Jensen APRN, NP-C [address] [phone] NURSE PRACTITIONER 02/08/21 Noé Crowley MD [address] [facility] [address] [facility] [address] [place] [address] Surgeon ORTHOPAEDIC SURGERY 02/08/21 Jasper Figueroa MD [address] [facility] [place] [address] Surgeon NEUROLOGICAL SURGERY 12/08/21 documented as of this encounter
--- OUTSIDE RECORDS SUMMARY | 2024-07-28 01:01 | XMS_ITS | Encounter Summary ---
Author Organization [facility] Address [address] [place] [address] [place] [address] Care Team Providers Care Tree Expert Name Role Phone Shiv Meehan MD Unavailable Unavailabl e Brandie Jensen APRN TALENT SCOUT-C Unavailable Noé Crowley MD Unavailable [phone] Jasper Figueroa MD Unavailable [phone] Torrey Lafleur MD Unavailable [phone] Faisal Richardson DO Primary Care Provider [phone] Reason for Visit * Reason Onset Date Comments Question 11/30/2022 Encounter Details Date Type Department Care Team (Late st Contact Info) Description 11/30/2022 Telephone [facility] [address] [place] [address] Shiv Meehan MD Question Social History Tobacco Use Types Packs/Day [...] Notes * Brandie Jensen APRN, NP-C - 11/30/2022 12:17 PM CDT Spoke to patient's . Answered questions. She v/u. * Sophia Vaughan - 11/30/2022 11:32 AM CDT VOICEMAIL CALLER: PHONE: [phone] MESSAGE: She has some questions. HOW HANDLED: Forwarded to [facility] nurse, Brandie Jensen NP documented in this encounter Plan of Treatment Upcoming Encounters Date Type Department Care Team (Late st Contact Info) Description 12/11/2024 2:00 PM CDT Office Visit [facility] [address] [place] [phone] Brandie Jensen APRN, NP-C [address] [phone] documented as of this encounter Visit Diagnoses Not on filedocumented in this encounter Care Teams Tree Expert Relationship Specialty Start Date End Date Faisal Richardson DO [address] [place] [address] PCP - General FAMILY PRACTICE 11/29/22 Shiv Meehan MD [place] Electronics Assembler CARDIOVASCULAR DISEASE 10/29/17 03/18/24 Brandie Jensen APRN TALENT SCOUTBabitaC [address] [phone] NURSE PRACTITIONER 02/08/21 Noé Crowley MD [address] [facility] [address] [place], [place] [address] Surgeon ORTHOPAEDIC SURGERY 02/08/21 Jasper Figueroa MD [address] [facility] [place], [place] [address] Surgeon NEUROLOGICAL SURGERY 12/08/21 Torrey Lafleur MD [address] [facility] [place] [address] ORTHOPAEDIC SURGERY 11/22/22 documented as of this encounter
--- OUTSIDE RECORDS SUMMARY | 2024-07-28 01:01 | XMS_ITS | Encounter Summary ---
Author Organization [facility] Address [address] [facility] [place] [address] [place] [address] Care Team Providers Care Business Partner Name Role Phone Shiv Meehan MD Unavailable [facility] Jesús Bennett MD Primary Care Provider Brandie Jensen SENIOR SUPPLY CHAIN ANALYST, AUDIT CONSULTANT-C Unavailable Noé Crowley MD Unavailable [phone] Encounter Details Date Type Department Care Team (Latest Contact Info) Description 02/08/2021 Travel Social History Tobacco Use Types Packs/Day [...] Exposure Response Date Recorded In the last month, have you been in contact with someone who was confirmed or suspected to have Coronavirus / COVID-19? No / Unsure 02/08/2021 2:49 PM CDT documented as of this encounter Plan of Treatment Upcoming Encounters Date Type Department Care Team (Late st Contact Info) Description 12/11/2024 2:00 PM CDT Office Visit [facility] eld [address] [place] [address] MikeyBrandie mares APRN, AUDIT CONSULTANT-C [address] [facility] [address] [place] [address] documented as of this encounter Visit Diagnoses Not on filedocumented in this encounter Care Teams Business Partner Relationship Specialty Start Date End Date Jesús Wang MD [address] [place] [address] PCP - General FAMILY PRACTICE 04/06/20 11/28/22 Shiv Meehan MD [place] Centrifugal Drier Operator CARDIOVASCULAR DISEASE 10/29/17 03/18/24 Brandie Jensen APRN, AUDIT CONSULTANT-C [address] [facility] [address] [place] [phone] NURSE PRACTITIONER 02/08/21 Noé Crowley MD [address] [facility] [address] [place] [address] Surgeon ORTHOPAEDIC SURGERY 02/08/21 documented as of this encounter
--- OUTSIDE RECORDS SUMMARY | 2024-07-28 01:01 | XMS_ITS | Encounter Summary ---
Author Organization [facility] Address [address] [facility] [place] [address] [place] [address] Care Team Providers Care Roaster Supervisor Name Role Phone Shiv Meehan MD Unavailable Unavailabl Brandie Zheng APRN, ELEMENTARY PRINCIPAL-C Unavailable Noé Crowley MD Unavailable [phone] Jasper Figueroa MD Unavailable [phone] Torrey Lafleur MD Unavailable [phone] Faisal Richardson DO Primary Care Provider [phone] Encounter Details Date Type Department Care Team (Latest Contact Info) Description 11/29/2022 Travel Social History Tobacco Use Types Packs/Day [...] 12/11/2024 2:00 PM CDT Office Visit [facility] el [address] [place] [address] Brandie Jensen APRN, ELEMENTARY PRINCIPAL-C [address] [facility] [address] [place] [address] documented as of this encounter Visit Diagnoses Not on filedocumented in this encounter Care Teams Roaster Supervisor Relationship Specialty Start Date End Date Faisal Richardson DO [address] [place] [address] PCP - General FAMILY PRACTICE 11/29/22 Shiv Meehan MD [place] Bell Attendant CARDIOVASCULAR DISEASE 10/29/17 03/18/24 Brandie Jensen APRN, ELEMENTARY PRINCIPAL-C [address] [address] NURSE PRACTITIONER 02/08/21 Noé Crowley MD [address] [place] [address] Surgeon ORTHOPAEDIC SURGERY 02/08/21 Jasper Figueroa MD [address] [facility]. [address] [place] [address] Surgeon NEUROLOGICAL SURGERY 12/08/21 Torrey Lafleur MD [address] [facility] [place] [address] ORTHOPAEDIC SURGERY 11/22/22 documented as of this encounter
--- OUTSIDE RECORDS SUMMARY | 2024-07-28 01:01 | XMS_ITS | Encounter Summary ---
Author Organization [facility] Address [address] [facility] [place] [address] [place] [address] Care Team Providers Care Health Care Assistant Name Role Phone Shiv Meehan MD Unavailable Unavailabl e Brandie Jensen APRN, SWATCH CHECKER-C Unavailable [phone] Noé Crowley MD Unavailable [phone] Jasper Figueroa MD Unavailable [phone] Feliz Lafleur MD Unavailable [phone] Faisal Richardson DO Primary Care Provider [phone] Reason for Visit * Reason Onset Date Comments Stress Test 12/05/2022 Encounter Details Date Type Department Care Team (Late st Contact Info) Description 12/05/2022 Telephone [facility] [address] [place] [address] Brandie Jensen APRN, SWATCH CHECKER-C [address] [facility] [address] [place] [address] Stress Test Social History Tobacco Use Types Packs/Day [...] as of this encounter Progress Notes * Vanessa Lopez MA - 12/06/2022 11:33 AM CDT Fax number for feliz Lafleur's office is [phone]. Documents are faxed. * Vanessa Lopez MA - 12/05/2022 4:27 PM CDT Spoke with patient and discussed results. Patient agreed and verbalized understanding with no further questions. Surgeon is Dr. Feliz Lafleur with orthopedic surgery in [place]. Will retrieve fax number tomorrow during business hours and fax over requested documents. Reminder set. * Vanessa Lopez MA - 12/05/2022 4:26 PM CDT ----- Message from Brandie Jensen APRN, SWATCH CHECKER-C sent at 12/05/2022 10:52 AM CDT ----- No evidence of ischemia. Please let patient know he may proceed with surgery. Then fax stress test results, phone note after you document your call with him, and my last office note to the PCP and surgeon. documented in this encounter Plan of Treatment Upcoming Encounters Date Type Department Care Team (Late st Contact Info) Description 12/11/2024 2:00 PM CDT Office Visit [facility] eld [address] [place] [address] Brandie Jensen APRN, SWATCH CHECKER-C [address] [facility] [address] [place] [address] documented as of this encounter Visit Diagnoses Not on filedocumented in this encounter Care Teams Health Care Assistant Relationship Specialty Start Date End Date Faisal Richardson DO [address] [place] [address] PCP - General FAMILY PRACTICE 11/29/22 Shiv Meehan MD [place] [employer] Mechanic CARDIOVASCULAR DISEASE 10/29/17 03/18/24 Brandie Jensen, WIRE BRUSH MAKER, SWATCH CHECKER-C [address] [facility] [address] [place] [address] NURSE PRACTITIONER 02/08/21 Noé Crowley MD [address] [facility] [address] [place] [address] Surgeon ORTHOPAEDIC SURGERY 02/08/21 Jasper Figueroa MD [address] [facility] [address] [place] [address] Surgeon NEUROLOGICAL SURGERY 12/08/21 Feliz Lafleur MD [address] [facility] [address] [place], [place] [address] ORTHOPAEDIC SURGERY 11/22/22 documented as of this encounter
--- OUTSIDE RECORDS SUMMARY | 2024-07-28 01:01 | XMS_ITS | Encounter Summary ---
Author Organization [facility] Address [address] [place] [address] [place] [address] Care Team Providers Care Air Hoist Operator Name Role Phone Christy Meehan MD Unavailable Unavailabl e Brandie Jensen APRN, PLASTER DIE MAKER-C Unavailable Noé Crowley MD Unavailable [phone] Jasper Figueroa MD Unavailable [phone] Torrey Lafleur MD Unavailable [phone] Faisal Lakhani DO Primary Care Provider [phone] Reason for Referral * Imaging (Routine) - Closed Specialty Diagnoses / Procedures Referred By Contac t Referred To Contact RADIOLOGY Diagnoses Pre-operative cardiovascular examination Abnormal EKG Coronary artery disease involving [place] coronary artery of [place] heart, unspecified whether angina present Difficulty walking Nonrheumatic aortic valve stenosis Essential hypertension LVH (left ventricular hypertrophy) Procedures NM PHARM NUC STRESS TEST 1DAY NM PHARM NUC STRESS TEST 1DAY Brandie Jensen APRN, PLASTER DIE MAKER-C [address] [facility] [address] [place] [address] Phone: tel: fax: Referral ID Status Reason Start Date Expiration Date Visits Re quested Visits Authorized [id number] Closed 11/29/2022 11/30/2023 1 3 Reason for Visit * Reason Comments Consult Preop evaluation radha or to hip surgery Encounter Details Date Type Department Care Team (Late st Contact Info) Description 11/29/2022 10:00 AM CDT Office Visit [facility] [address] [place] [phone] Brandie Jensen APRN, NP-C [address] [facility] [address] [place] [address] Consult (Preop evaluation prior to hip surgery) Social History Tobacco Use Types Packs/Day Years [...] Sign Reading Time Taken Comments Blood Pressure 140/82 11/29/2022 9:50 AM CDT Pulse 66 11/29/2022 9:50 AM CDT EKG Temperature - - Respiratory Rate 20 11/29/2022 9:50 AM CDT Oxygen Saturation - - Inhaled Oxygen Concentration - - Weight 126.6 kg (279 lb 3.2 oz) 11/29/2022 9:50 AM CDT Height 182.9 cm (6') 11/29/2022 9:50 AM CDT Body Mass Index 37.87 11/29/2022 9:50 AM CDT documented in this encounter Progress Notes * Brandie Jensen APRN, NP-C - 11/29/2022 10:00 AM CDT FROM: Brandie Jensen APRN, NP-C, collaborating physician Christy Meehan III, M.D. RE: Jose Rutledge : 1965 Reason for Visit: Consult (Preop evaluation prior to hip surgery) History of Present Illness: Mr. Rutledge is a pleasant 57-year-old male seen in the cardiology clinic today for a preoperative cardiac risk assessment prior to undergoing a hip replacement revision by Dr. Lafleur on 12/08/2022. Since he was last seen in our office in December, he has undergone back surgery, shoulder surgery, and hip replacement in June with subsequent removal due to infection in August. He denies any cardiac complications following his previous surgeries this year. He has a history of coronary artery disease, aortic stenosis, LVH, CVA in 2021, hypertension, hyperlipidemia, sleep apnea, and diabetes. He reportsthat he is doing reasonably well from a cardiac standpoint. He denies any anginal chest pain, shortness of breath, or dyspnea upon exertion. He believes that he could walk at least 2 blocks with his walker. However, he is nonweightbearing with his bad hip. Hedenies any claudication. He denies any overt symptoms of congestive heart failure such as paroxysmal nocturnal dyspnea, orthopnea, or pedal edema. He has no palpitations. He still has occasional dizzi ness and right sided numbness since his CVA. He denies any syncope. He denies signs and symptoms ofCVA or TIA, other than those mentioned above. He seems to be tolerating his present medications well without reported side effects. He denies signs of bleeding. Evaluation during the clinic visit included an EKG which confirmed the presence of sinus rhythm at a rate of 66 beats per minute with possible inferior and lateral ischemia. Recommendations/Plan: Mr. Rutledge's cardiac status appears clinically stable at the present time without consistent ongoing anginal chest pain, overt symptoms of congestive heart failure, or clinical evidence of hemodynamically significant arrhythmias. However, his EKG has significant inferolateral ST changes compared to his previous studies. His recent echocardiogram performed on 11/24/2022 revealed an LVEF 65-70% with moderate LVH, moderate aortic stenosis with a mean gradient of 25 mmHg and aortic valve area of 1.2 cm??. This was relatively stable compared to his last echocardiogram and does not explain his new EKG changes. His last cardiac catheterization in November 2017 noted a normal LAD, luminal irregularities of the RCA, and mild circumflex disease. He has not had an ischemic evaluation since that time. I do not believe that he is able to perform at least 4 METS of activity due to his hip issues. Therefore,I recommend stress testing prior to his upcoming surgery. His planned hip replacement is an intermediate risk procedure from a cardiovascular standpoint. I believe that his cardiovascular risk of the procedure is moderately increased in light of his known coronary artery disease, aortic stenosis, LVH, hypertension, carotid stenosis, and history of CVA. This moderately increased cardiovascular risk is felt to be acceptable in light of the overall clinical situation, provided that his stress test does not reveal significant abnormalities. At the time of surgery, I would recommend the followin. Perioperative telemetry monitoring. 2. Perioperative maintenance of beta blockade and statin therapy. 3. Plavix may be held for 5-7 days. Please resume postoperatively. 4. Maintenance of a serum hemoglobin of 8.0 or greater. From a half-way standpoint, I have recommended to Mr. Rutledge: CAD, Abnormal EKG. He denies any symptoms consistent with myocardial ischemia. He does have new ischemic changes on his EKG. It has been over 5 years since his last ischemic evaluation. He is unable to walk on the treadmill due to his nonweightbearing status. Therefore, we will order a pharmacologic nuclear stress test. He would like this performed in [place]. Aortic Stenosis, LVH. His recent echocardiogram noted an increase in his aortic stenosis from a mean gradient of 17 mmHg to now 25 mmHg. His aortic valve area has not decreased. His LVEF remains preserved. He has moderate LVH. We will plan on rechecking an echocardiogram next year. Carotid Stenosis. He denies any neurological symptoms other than his residual dizziness and right-sided numbness. Carotid dopplers performed on 11/24/2022 revealed less than 50% bilateral ICA stenosis. He will continue his plavix and statin. We will plan on repeating carotid dopplers in approximately 2 years. Hypertension. His mildly elevated in the office today. He tells me at home it is typically 118-130/80 mmHg. He will continue to monitor. I did advise him that I would like his blood pressure to remain less than 130/80 mmHg. CVA. He suffered a cryptogenic stroke in October 2021. His evaluation ruled out a PFO. His 30-day body guardian monitor did not reveal evidence of occult atrial fibrillation. His carotid stenosis was around 50% bilaterally. He denies any new neurologic symptoms. He will continue his plavix and statin, and follow-up with neurology as planned. Hyperlipidemia. He is currently treated with rosuvastatin and denies reported side effects. An LDL less than 70 is recommended. I have asked him to return to the cardiology clinic for routine followup in six months. I have encouraged him to contact me in the meantime should he have any questions or problems. Medications: Current Outpatient Medications: Acetaminophen 500 MG Cap, Take 1,000 mg by mouth as needed., Disp: , Rfl: amLODIPine (NORVASC) 5 MG tablet, TAKE ONE TABLET BY MOUTH DAILY, Disp: 30 tablet, Rfl: 11 betamethasone dipropionate 0.05 % ointment, as needed., Disp: , Rfl: CARVEDILOL 25 MG tablet, TAKE ONE TABLET BY MOUTH TWICE A DAY, Disp: 180 tablet, Rfl: 1 Cholecalciferol (D3) 50 MCG (2000 UT) Tab, Take 50 mcg by mouth daily., Disp: , Rfl: cloNIDine 0.1 MG tablet, Take 1 tablet (0.1 mg total) by mouth 2 (two) times daily., Disp: , Rfl: clopidogrel (PLAVIX) 75 MG tablet, Take 1 tablet (75 mg total) by mouth daily., Disp: , Rfl: cyclobenzaprine 10 MG tablet, Take 1 tablet (10 mg total) by mouth 2 (two) times a day., Disp: , Rfl: diclofenac sodium 75 MG tablet, Take 1 tablet (75 mg total) by mouth 2 (two) times daily., Disp: , Rfl: Docusate Sodium (DSS) 100 [...] tablet by mouth daily., Disp: , Rfl: probiotic (FLORAJEN3) Cap capsule, Take 1 capsule by mouth daily with breakfast., Disp: , Rfl: rosuvastatin (CRESTOR) 20 MG tablet, Take 1 tablet (20 mg total) by mouth daily., Disp: , Rfl: sertraline (ZOLOFT) 50 MG tablet, Take 1 tablet (50 mg total) by mouth daily., Disp: , Rfl: TRULICITY 1.5 MG/0.5ML Solution Pen-injector, Inject 1.5 mg into the skin weekly., Disp: , Rfl: Review of patient's allergies [...] Genitourinary: Negative for dysuria. Musculoskeletal: Positive for joint stiffness/pain. Negative for myalgias. Skin: Negative for rash. Neurological: Positive for dizziness. Negative for tingling/numbness and focal weakness. Endo/Heme/Allergies: Negative for new or significant bruising/bleeding and polydipsia. Psychiatric/Behavioral: Negative for depression and new or significant memory loss. Vitals: 11/29/22 0950 BP: (!) 140/82 Patient Position: Sitting BP Location: Right arm Pulse: 66 Weight: 126.6 kg (279 lb 3.2 oz) Height: 6' (1.829 m) Body mass index is 37.87 kg/m??. Cardiac Exam Rate/Rhythm: Normal rate and [...] murmur is present with a grade of 2/6 at the upper right sternal border radiatingto [...] Appropriate mood and affect. Comments: Diagnoses/Impression: 1. Pre-operative cardiovascular examination NM PHARM NUC STRESS TEST 1DAY CANCELED: NM PHARM NUC STRESS TEST 1DAY 2. Abnormal EKG NM PHARM NUC STRESS TEST 1DAY CANCELED: NM PHARM NUC STRESS TEST 1DAY 3. Coronary artery disease involving [place] coronary artery of [place] heart, unspecified whether angina present NM PHARM NUC STRESS TEST 1DAY CANCELED: NM PHARM NUC STRESS TEST 1DAY 4. Difficulty walking NM PHARM NUC STRESS TEST 1DAY CANCELED: NM PHARM NUC STRESS TEST 1DAY 5. LVH (left ventricular hypertrophy) NM PHARM NUC STRESS TEST 1DAY CANCELED: NM PHARM NUC STRESS TEST 1DAY 6. Nonrheumatic aortic valve stenosis NM PHARM NUC STRESS TEST 1DAY CANCELED: NM PHARM NUC STRESS TEST 1DAY 7. Bilateral carotid artery stenosis 8. Essential hypertension NM PHARM NUC STRESS TEST 1DAY CANCELED: NM PHARM NUC STRESS TEST 1DAY 9. History of CVA (cerebrovascular accident) 10. Hyperlipidemia, unspecified hyperlipidemia type Referring Provider: Torrey Lafleur MD PCP: FAISAL LAKHANI DO documented in this encounter Plan of Treatment Upcoming Encounters Date Type Department Care Team (Teodora Contact Info) Description 12/11/2024 2:00 PM CDT Office Visit [facility]d [address] [place] [phone] Brandie Jensen APRN, BELLO [address] [facility] [address] [place] [phone] documented as of this encounter Procedures Procedure Name Priority Date/Time Associated Diagnosis Comments ELECTROCARDIOGRAM (NON MIDMARK ACQUIRED) Routine 11/29/2022 9:48 AM CDT Pre-operative cardiovascular examination documented in this encounter Results * NM PHARM NUC STRESS TEST 1DAY (12/04/2022 9:33 AM CDT) Anatomical Region Laterality Modality Cardiac Nuclear Medicine us BELLO Velarde APRN NUC MED Final Result * ELECTROCARDIOGRAM (NON MIDMARK ACQUIRED) (11/29/2022 9:48 AM CDT) 11/29/2022 9:48 AM CDT Narrative [facility] - 11/29/2022 11:31 AM CDT ? [facility] ?[address], [place] ??[address] ? Test Date: ?2022-11-29 Pat Name: ? JOSE RUTLEDGE ?Department: ?? 105 ? Room: ? Gender: ? Male ? Manager Critical Care: ?? kh : ?1965 ? Requested By: CHRISTY MEEHAN Order Number: [id number] ?Reading MD: ?? Christy Meehan ? Measurements Intervals ?[place] ? Rate: ? 66 ? P: ?37 RI: ? 188 ?QRS: ?14 QRSD: ? 99 ? T: ?-56 QT: ? 382 ? QTc: ?402 ? Interpretive Statements SINUS RHYTHM ST AND T-WAVE ABNORMALITY, CONSIDER INFEROLATERAL ISCHEMIA Procedure Note Christy Meehan MD - 11/29/2022 [facility] [address] [place] [address] Test Date: 2022-11-29 Pat Name: JOSE RUTLEDGE Department: 105 Room: Gender: Male Manager Critical Care: yon : 1965 Requested By: CHRISTY MEEHAN Order Number: [id number] Reading MD: Christy Meehan Measurements Intervals [place] Rate: 66 P: 37 RI: 188 QRS: 14 QRSD: 99 T: -56 QT: 382 QTc: 402 Interpretive Statements SINUS RHYTHM ST AND T-WAVE ABNORMALITY, CONSIDER INFEROLATERAL ISCHEMIA us Christy Meehan MD PROCEDURES-ORDERABLE NO BEATA RGE Final Result [facility] documented in this encounter Visit Diagnoses Diagnosis Pre-operative cardiovascular examination- Primary Abnormal EKG Nonspecific abnormal electrocardiogram (ECG) (EKG) Coronary artery disease involving [place] coronary artery of [place] heart, unspecified whether angina present Difficulty walking [...] type documented in this encounter Care Teams Air Hoist Operator Relationship Specialty Start Date End Date Faisal Lakhani DO [address] [place] [address] PCP - General FAMILY PRACTICE 11/29/22 Christy Meehan MD [place] [employer]ulic Punch Press Operator CARDIOVASCULAR DISEASE 10/29/17 03/18/24 Brandie Jensen APRN, PLASTER DIE MAKER-C [address] [facility] [address] [place] [address] NURSE PRACTITIONER 02/08/21 Noé Crowley MD [address] [facility] [address] [place] [address] Surgeon ORTHOPAEDIC SURGERY 02/08/21 Jasper Figueroa MD [address] [facility] [address] [place], [place] [address] Surgeon NEUROLOGICAL SURGERY 12/08/21 Torrey Lafleur MD [address] [facility] [place], [place] [address] ORTHOPAEDIC SURGERY 11/22/22 documented as of this encounter
--- OUTSIDE RECORDS SUMMARY | 2024-07-28 01:01 | XMS_ITS | Encounter Summary ---
Author Organization [facility] Address [address] [place] [address] [place] [address] Care Team Providers Care Laboratory Director Name Role Phone Shiv Meehan MD Unavailable [facility] Jesús Wang MD Primary Care Provider Brandie Jensen APRN, SUPERINTENDENT MAINTENANCE-C Unavailable [phone] Noé Crowley MD Unavailable [phone] Reason for Visit * Reason Onset Date Comments Appointment Request 07/26/2021 Encounter Details Date Type Department Care Team (Late st Contact Info) Description 07/26/2021 Telephone [facility] ld [address] [place] [address] Shiv Meehan MD Appointment Request Social History Tobacco Use Types Packs/Day Years [...] as of this encounter Progress Notes * Aleta العلي RN - 07/26/2021 9:09 AM CST Chart reviewed, last seen on 02/08/21 with recommendations for f/u in 1 year, echo should be repeatedin 2 years. F/u scheduled w/ Dr. Meehan for 02/08/22 at 1 pm in [place] Phoned patient, reviewed above information. Agrees to scheduled f/u MASKER * Elda Ramos - 07/26/2021 8:36 AM CST Patient received letter to schedule follow up appt. I let patient know he already has a yearly follow up appt with Dr. Meehan in [place] in February 2022. The appointment note says to ask patient if he is ready to schedule carotids, renal duplex, and echo. Patient says he knows nothing about needing testing. Patient would like a call back at [phone] to discuss. MASKER documented in this encounter Plan of Treatment Upcoming Encounters Date Type Department Care Team (Late st Contact Info) Description 12/11/2024 2:00 PM CDT Office Visit [facility] [address] [place] [phone] Brandie Jensen APRN, SUPERINTENDENT MAINTENANCE-C [address] [phone] documented as of this encounter Visit Diagnoses Not on filedocumented in this encounter Care Teams Laboratory Director Relationship Specialty Start Date End Date Jesús Wang MD [address] [place] [address] PCP - General FAMILY PRACTICE 04/06/20 11/28/22 Shiv Meehan MD [place] [facility] Investigator CARDIOVASCULAR DISEASE 10/29/17 03/18/24 Brandie Jensen APRN, SUPERINTENDENT MAINTENANCE-C [address] [phone] NURSE PRACTITIONER 02/08/21 Noé Crowley MD [address] [facility] [address] [address] Surgeon ORTHOPAEDIC SURGERY 02/08/21 documented as of this encounter
--- OUTSIDE RECORDS SUMMARY | 2024-07-28 01:01 | XMS_ITS | Encounter Summary ---
Author Organization [facility] Address [address] [place] [address] [place] [address] Care Team Providers Care Asphalt Plant Laborer Name Role Phone Shiv Meehan MD Unavailable Unavailabl e Brandie Jensen APRN, COMMISSARY STEWARD-C Unavailable Noé Crowley MD Unavailable [phone] Jasper Figueroa MD Unavailable [phone] Torrey Lafleur MD Unavailable [phone] Faisal Richardson DO Primary Care Provider [phone] Reason for Referral * Imaging (Routine) - Closed Specialty Diagnoses / Procedures Referred By Contac t Referred To Contact RADIOLOGY Diagnoses Pre-operative cardiovascular examination Abnormal EKG Coronary artery disease involving [place] coronary artery of craig heart, unspecified whether angina present Difficulty walking Nonrheumatic aortic valve stenosis Essential hypertension LVH (left ventricular hypertrophy) Procedures NM PHARM NUC STRESS TEST 1DAY NM PHARM NUC STRESS TEST 1DAY Brandie Jensen APRN, COMMISSARY STEWARD-C [address] [facility] [address] [place] [address] Phone: tel: fax: Referral ID Status Reason Start Date Expiration Date Visits Re quested Visits Authorized [id number] Closed 11/29/2022 11/30/2023 1 3 Reason for Visit * Imaging (Routine) - Closed Specialty Diagnoses / Procedures Referred By Kd t Referred To Contact RADIOLOGY Diagnoses Pre-operative cardiovascular examination Abnormal EKG Coronary artery disease involving [place] coronary artery of craig heart, unspecified whether angina present Difficulty walking Nonrheumatic aortic valve stenosis Essential hypertension LVH (left ventricular hypertrophy) Procedures NM PHARM NUC STRESS TEST 1DAY NM PHARM NUC STRESS TEST 1DAY Brandie Jensen APRN, COMMISSARY STEWARD-C [address] [facility] [address] [place] [address] Phone: tel: fax: Referral ID Status Reason Start Date Expiration Date Visits Re quested Visits Authorized [id number] Closed 11/29/2022 11/30/2023 1 3 Encounter Details Date Type Department Care Team (Latest Contact Info) Description 12/04/2022 5:59 AM CDT Hospital Encounter [facility] [address] [place] [address] [place] [address] Brandie Jensen APRN, COMMISSARY STEWARD-C [address] [place] [id number] [place] [address] Discharge Disposition: Home or Self Care (Routine [...] 12/05/2021 3 documented as of this encounter Plan of Treatment Upcoming Encounters Date Type Department Care Team (Late st Contact Info) Description 12/11/2024 2:00 PM CDT Office Visit [facility] eld [address] [place] [phone] Brandie Jensen APRN, JONATHANC [address] [facility] [place] [address] documented as of this encounter Procedures Procedure Name Priority Date/Time Associated Diagnosis Comments NM PHARM NUC STRESS TEST 1DAY Routine 12/04/2022 9:33 AM CDT Pre-operative cardiovascular examination Abnormal EKG Coronary artery disease involving [place] coronary artery of craig heart, unspecified whether angina present Difficulty walking Nonrheumatic aortic valve stenosis Essential hypertension LVH (left ventricular hypertrophy) documented in this encounter Results * NM PHARM NUC STRESS TEST 1DAY (12/04/2022 9:33 AM CDT) Anatomical Region Laterality Modality Cardiac Nuclear Medicine us BELLO Velarde APRN NUC MED Final Result documented in this encounter Visit Diagnoses Diagnosis Pre-operative cardiovascular examination Abnormal EKG Nonspecific abnormal electrocardiogram (ECG) (EKG) Coronary artery disease involving [place]ig coronary artery of craig heart, unspecified whether angina present Difficulty walking Difficulty in walking Nonrheumatic aortic valve stenosis Aortic valve disorders Essential hypertension Unspecified essential hypertension LVH (left ventricular hypertrophy) Cardiomegaly documented in this encounter Care Teams Asphalt Plant Laborer Relationship Specialty Start Date End Date Faisal Richardson DO [address] [place] [address] PCP - General FAMILY PRACTICE 11/29/22 Shiv Meehan MD [place] [employer] Machine Operator Assistant CARDIOVASCULAR DISEASE 10/29/17 03/18/24 Brandie Jensen APRN, COMMISSARY STEWARDBabitaC [address] [facility] [address] [place] [address] NURSE PRACTITIONER 02/08/21 Noé Crowley MD [address] [facility] [address] [place] [address] Surgeon ORTHOPAEDIC SURGERY 02/08/21 Jasper Figueroa MD [address] [facility] [place] [address] Surgeon NEUROLOGICAL SURGERY 12/08/21 Torrey Lafleur MD [address] [facility] [place] [address] ORTHOPAEDIC SURGERY 11/22/22 documented as of this encounter
--- OUTSIDE RECORDS SUMMARY | 2024-07-28 01:01 | XMS_ITS | Encounter Summary ---
Author Organization [facility] Address [address] [facility] [place] [address] [place] [address] Care Team Providers Care Tour Consultant Name Role Phone Shiv Meehan MD Unavailable Unavailabl e Jesús Wang MD Primary Care Provider Brandie Jensen APRN, SENIOR AUDIT MANAGER-C Unavailable Noé Crowley MD Unavailable [phone] Jasper Figueroa MD Unavailable [phone] Torrey Lafleur MD Unavailable [phone] Reason for Visit * Reason Onset Date Comments Schedule Test 11/23/2022 Encounter Details Date Type Department Care Team ([facility] st Contact Info) Description 11/23/2022 Telephone [facility] [address] [place] [address] Brandie Jensen APRN, SENIOR AUDIT MANAGER-C [address] [facility] [address] [place] [address] Schedule Test Social History Tobacco [...] Notes * Brandie Jensen APRN, NP-C - 11/23/2022 12:34 PM CDT Spoke with Mike. I need his echocardiogram for his preop assessment. He has echocardiogram and carotid dopplers scheduled for 12/08/2022 with his previously scheduled annual appointment. There are openings for an echocardiogram and carotid dopplers tomorrow, with the dopplers that 2:00 pm in the echocardiogram at 3:00 pm. I will then see him in the office on 11/29/2022. He v/u. documented in this encounter Plan of Treatment Upcoming Encounters Date Type Department Care Team (Late st Contact Info) Description 12/11/2024 2:00 PM CDT Office Visit [facility] el [address] [place] [phone] Brandie Jensen APRN, SENIOR AUDIT MANAGERBabitaC [address] [phone] documented as of this encounter Visit Diagnoses Not on filedocumented in this encounter Care Teams Tour Consultant Relationship Specialty Start Date End Date Jesús Wang MD [address] [place] [address] PCP - General FAMILY PRACTICE 04/06/20 11/28/22 Shiv Meehan MD [place] Crew Team Member CARDIOVASCULAR DISEASE 10/29/17 03/18/24 Brandie Jensen APRN, SENIOR AUDIT MANAGER-C [address] [phone] NURSE PRACTITIONER 02/08/21 Noé Crowley MD [address] [facility] [address] [place] [address] Surgeon ORTHOPAEDIC SURGERY 02/08/21 Jasper Figueroa MD [address] [facility] [address] [place] [address] Surgeon NEUROLOGICAL SURGERY 12/08/21 Torrey Lafleur MD [address] [facility] [place], [place] [address] ORTHOPAEDIC SURGERY 11/22/22 documented as of this encounter
--- OUTSIDE RECORDS SUMMARY | 2024-07-28 01:01 | XMS_ITS | Encounter Summary ---
Author Organization [facility] Address [address] [facility] [place] [address] [place] [address] Care Team Providers Care Eating Disorder Specialist Name Role Phone Christy Meehan MD Unavailable [facility] Jesús Bennett MD Primary Care Provider Brandie Jensen APRN, POCKET AND PULLEY MACHINE OPERATOR-C Unavailable Noé Crowley MD Unavailable [phone] Encounter Details Date Type Department Care Team (Late Contact Info) Description 11/28/2021 Orders Only [facility] [address] [place] [address] Christy Meehan MD Social History Tobacco Use [...] 2:00 PM CDT Office Visit [facility] eld [address] [place] [address] Brandie Jensen, SHANNAN, POCKET AND PULLEY MACHINE OPERATOR-C [address] [facility] [address] [place] [address] documented as of this encounter Results * ELECTROCARDIOGRAM (12/08/2021 9:04 AM CDT) 12/08/2021 9:04 AM CDT Narrative [facility] - 12/09/2021 12:56 PM CDT ? [facility] ?[address] [place], [place] ??[address] ? Test Date: ?2021-12-08 Pat Name: ? TAYLOR RUTLEDGE ?Department: ?? 105 ? Room: ? Gender: ? Male ? Media Marketing Director: ?? : ?1965 ? Requested By: CHRISTY MEEHAN Order Number: [id number] ?Reading MD: ?? Christy Meehan ? Measurements Intervals ?Aroda ? Rate: ? 74 ? P: ?23 DE: ? 186 ?QRS: ?4 QRSD: ? 108 ?T: ?-29 QT: ? 375 ? QTc: ?419 ? Interpretive Statements SINUS RHYTHM NONSPECIFIC T-WAVE ABNORMALITY Procedure Note Christy Meehan MD - 12/09/2021 [facility], [address] [address] Test Date: 2021-12-08 Pat Name: TAYLOR RUTLEDGE Department: 105 Room: Gender: Male Media Marketing Director: : 1965 Requested By: CHRISTY MEEHAN Order Number: [id number] Ranjan VALDEZ: Christy Meehan Measurements Intervals Aroda Rate: 74 P: 23 DE: 186 QRS: 4 QRSD: 108 T: -29 QT: 375 QTc: 419 Interpretive Statements SINUS RHYTHM NONSPECIFIC T-WAVE ABNORMALITY us Christy Meehan MD PROCEDURES-ORDERABLE NO BEATA RGE Final Result [facility] documented in this encounter Visit Diagnoses Diagnosis Mild coronary artery disease- Primary LVH (left ventricular hypertrophy) Cardiomegaly Essential hypertension Unspecified essential hypertension Recent cerebrovascular accident (CVA)- Primary Bilateral carotid artery stenosis Occlusion and stenosis of multiple and bilateral precerebral arteries without mention of cerebral infarction Mild coronary artery disease Nonrheumatic aortic valve stenosis Aortic valve disorders Essential hypertension Unspecified essential hypertension Hyperlipidemia, unspecified hyperlipidemia type Preop cardiovascular exam Pre-operative cardiovascular examination documented in this encounter Care Teams Eating Disorder Specialist Relationship Specialty Start Date End Date Jesús Wang MD [address] [place] [address] PCP - General FAMILY PRACTICE 04/06/20 11/28/22 Christy Meehan MD [place] Keyboard Action Assembler CARDIOVASCULAR DISEASE 10/29/17 03/18/24 Brandie Jensen, FLEET COORDINATOR, POCKET AND PULLEY MACHINE OPERATOR-C [address] [facility] [address] [place] [address] NURSE PRACTITIONER 02/08/21 Noé Crowley MD [address] [facility] 162 [facility] [address] [place] [address] Surgeon ORTHOPAEDIC SURGERY 02/08/21 documented as of this encounter
--- OUTSIDE RECORDS SUMMARY | 2024-07-28 01:01 | XMS_ITS | Encounter Summary ---
Author Organization [facility] Address [address] [facility] [place] [address] [place] [address] Care Team Providers Care Doctor Of Dental Surgery Name Role Phone Shiv Meehan MD Unavailable Unavailabl e Brandie Jensen APRN, VP PACKAGING-C Unavailable [phone] Noé Crowley MD Unavailable [phone] Jasper Figueroa MD Unavailable [phone] Torrey Lafleur MD Unavailable [phone] Faisal Richardson DO Primary Care Provider [phone] Reason for Visit * Reason Onset Date Comments Reschedule 06/12/202307/04 appt Encounter Details Date Type Department Care Team (Late st Contact Info) Description 06/12/2023 [facility]phone [facility] [address] [place] [address] Shiv Meehan MD Reschedule (07/04 appt) Social History Tobacco Use Types Packs/Day Years [...] as of this encounter Progress Notes * Syl Levine - 06/13/2023 3:17 PM CST The pt called to reschedule his appt. He asked that I reschedule with Brandie at [facility]. I have him scheduled for 07/09/23 @ 10:30. OFF SAW OPERATOR * Sophia Estela Vaughan - 06/12/2023 3:32 PM CST Pt called to reschedule 07/04 appt. He will be out of town then. OFF SAW OPERATOR documented in this encounter Plan of Treatment Upcoming Encounters Date Type Department Care Team (Late st Contact Info) Description 12/11/2024 2:00 PM CDT Office Visit [facility] [address] [place] [address] Brandie Jensen APRN, VP PACKAGING-C [address] [address] documented as of this encounter Visit Diagnoses Not on filedocumented in this encounter Care Teams Doctor Of Dental Surgery Relationship Specialty Start Date End Date Faisal Richardson DO [address] [place] [address] PCP - General FAMILY PRACTICE 11/29/22 Shiv Meehan MD [place] Skip Miner Blasting CARDIOVASCULAR DISEASE 10/29/17 03/18/24 Brandie Jensen APRN, VP PACKAGING-C [address] [address] NURSE PRACTITIONER 02/08/21 Noé Crowley MD [address] [facility] [address] [place] [address] Surgeon ORTHOPAEDIC SURGERY 02/08/21 Jasper Figueroa MD [address] [facility] [address] [place] [address] Surgeon NEUROLOGICAL SURGERY 12/08/21 Torrey Lafleur MD [address] [facility] Orthopaedic [place], [place] [address] ORTHOPAEDIC SURGERY 11/22/22 documented as of this encounter
--- OUTSIDE RECORDS SUMMARY | 2024-07-28 01:01 | XMS_ITS | Encounter Summary ---
Author Organization [facility] Address [address] [place] [address] [place] [address] Care Team Providers Care Wire Puller Name Role Phone Shiv Meehan MD Unavailable Unavailabl e Jesús Wang MD Primary Care Provider Brandie Jensen APRN, ENGINEERING SCIENTIST-C Unavailable Noé Crowley MD Unavailable [phone] Reason for Visit * Reason Onset Date Comments Information 02/11/2021 Encounter Details Date Type Department Care Team ([facility] Contact Info) Description 02/11/2021 [facility]phone [facility] [address] [place] [address] Brandei Jensen APRN, ENGINEERING SCIENTIST-C [address] [facility] [address] [place] [address] Information Social History Tobacco Use Types Packs/Day Years [...] PM CDT documented as of this encounter Progress Notes * Aleta العلي RN - 02/11/2021 10:20 AM CDT [facility] phoned to have most recent EKG faxed to [phone] Faxed as requested documented in this encounter Plan of Treatment Upcoming Encounters Date Type Department Care Team (Late st Contact Info) Description 12/11/2024 2:00 PM CDT Office Visit [facility] el [address] [place] [address] Brandie Jensen APRN, ENGINEERING SCIENTIST-C [address] [facility] [address] [place] [address] documented as of this encounter Visit Diagnoses Not on filedocumented in this encounter Care Teams Wire Puller Relationship Specialty Start Date End Date Jesús Wang MD [address] [place] [address] PCP - General FAMILY PRACTICE 04/06/20 11/28/22 Shiv Meehan MD [place] Agriculture Teacher CARDIOVASCULAR DISEASE 10/29/17 03/18/24 Brandie Jensen APRN, ENGINEERING SCIENTIST-C [address] [facility] [address] [place] [address] NURSE PRACTITIONER 02/08/21 Noé Crowley MD [address] [facility] [address] [place], [place] [address] Surgeon ORTHOPAEDIC SURGERY 02/08/21 documented as of this encounter
--- OUTSIDE RECORDS SUMMARY | 2024-07-28 01:01 | XMS_ITS | Encounter Summary ---
Author Organization [facility] Address [address] [facility] [place] [address] [place] [address] Care Team Providers Care Global Marketing Operations Manager Name Role Phone Shiv Meehan MD Unavailable Unavailabl e Jesús Wang MD Primary Care Provider Brandie Jensen APRN, CREATIVE SERVICES INTERN-C Unavailable Noé Crowley MD Unavailable [phone] Jasper Figueroa MD Unavailable [phone] Reason for Referral * (Routine) - Closed Specialty Diagnoses / Procedures Referred By Kd figueroa Referred To Contact Diagnoses Recent cerebrovascular accident (CVA) Procedures CLINIC - [id number] [place] [address] - Today Brandie Jensen APRN, CREATIVE SERVICES INTERN-C [address] [id number] [place] [address] Phone: tel: fax: Referral ID Status Reason Start Date Expiration Date Visits Re quested Visits Authorized [id number] Closed 02/07/2022 03/10/2023 1 1 Reason for Visit * Reason Onset Date Comments Holter Monitor 12/08/2021 BG APPLIED * Imaging (Routine) - Closed Specialty Diagnoses / Procedures Referred By Contac t Referred To Contact Diagnoses Recent cerebrovascular accident (CVA) Procedures CLINIC - OUTPATIENT EVENT RECORDER (ECG) UP TO 30 DAYS COMPLETE (Holter) Brandie Jensen APRN CREATIVE SERVICES INTERNBabitaC [address] [facility] [address] [place] [address] Phone: tel: fax: [facility] [address] [place] [address] Phone: tel: fax: Referral ID Status Reason Start Date Expiration Date Visits Re quested Visits Authorized [id number] Closed 12/08/2021 01/08/2023 1 1 Encounter Details Date Type Department Care Team (Late st Contact Info) Description 12/08/2021 10:15 AM CDT Telephone [facility] [address] [place] [address] Brandie Jensen APRN, CREATIVE SERVICES INTERN-C [id number] [place] [address] Holter Monitor (BG APPLIED ) Social History Tobacco Use Types Packs/Day Years [...] as of this encounter Progress Notes * Keri Malagon MA - 02/07/2022 7:56 AM CDTAddended by: KERI MALAGON on: 02/07/2022 07:56 AM Modules accepted: Orders * Gregorio Gauthier - 12/08/2021 10:37 AM CDT BG APPLIED documented in this encounter Plan of Treatment Upcoming Encounters Date Type Department Care Team (Late st Contact Info) Description 12/11/2024 2:00 PM CDT Office Visit [facility] eld [address] [place] [address] Brandie Jensen, SUPERVISORY AIR INTERCEPT CONTROLLER, CREATIVE SERVICES INTERN-C [address] [facility] [address] [place] [address] Scheduled Orders Name Type Priority Associated Diagnoses Orde r Schedule CLINIC - [address] MCT - Today EKG-NonRad Routine Recent cerebrovascular accident (CVA) Expected: 02/07/2022, Expires: 02/07/2023 documented as of this encounter Procedures Procedure Name Priority Date/Time Associated Diagnosis Comments EVENT RECORDER (ECG) UP TO 30 DAYS COMPLETE Routine 01/11/2022 8:31 PM CDT Recent cerebrovascular accident (CVA) documented in this encounter Results * CLINIC - OUTPATIENT EVENT RECORDER (ECG) [...] atrial fib Yousuf Roy MD Clinical Cardiac Knowledge Management Consultant [facility] Brandie Jensen APRN CREATIVE SERVICES INTERN-Jose CV VASCULAR ORDERABLE S Final Result [facility] documented in this encounter Visit Diagnoses Diagnosis Recent cerebrovascular accident (CVA) documented in this encounter Care Teams Global Marketing Operations Manager Relationship Specialty Start Date End Date Jesús Wang MD [address] [place] [address] PCP - General FAMILY PRACTICE 04/06/20 11/28/22 Shiv Meehan MD [place] Fleet Coordinator CARDIOVASCULAR DISEASE 10/29/17 03/18/24 Brandie Jensen APRN, CREATIVE SERVICES INTERN-C [address] [facility] [address] [place] [address] NURSE PRACTITIONER 02/08/21 Noé Crowley MD [address] [facility] [address] [place] [address] Surgeon ORTHOPAEDIC SURGERY 02/08/21 Jasper Figueroa MD [address] [facility]. [address] [place] [address] Surgeon NEUROLOGICAL SURGERY 12/08/21 documented as of this encounter
--- OUTSIDE RECORDS SUMMARY | 2024-07-28 01:01 | XMS_ITS | Encounter Summary ---
Author Organization [facility] Address [address] [facility] [place] [address] [place] [address] Care Team Providers Care It Security Specialist Name Role Phone Shiv Meehan MD Unavailable Unavailabl e Brandie Jensen APRN, PIPE TESTING TECHNICIAN-C Unavailable Noé Crowley MD Unavailable [phone] Jasper Figueroa MD Unavailable Torrey Lafleur MD Unavailable [phone] Faisal Richardson DO Primary Care Provider [phone] Encounter Details Date Type Department Care Team (Late st Contact Info) Description 11/30/2022 Orders Only [facility] [address] [place] [address] Barndie Jensen APRN, PIPE TESTING TECHNICIAN-C [address] [facility] [address] [place] [address] Social History Tobacco Use Types Packs/Day Years [...] Description 12/11/2024 2:00 PM CDT Office Visit [facility] eld [address] [place] [address] Brandie Jensen APRN, PIPE TESTING TECHNICIAN-C [address] [facility] [address] [place] [address] documented as of this encounter Procedures Procedure Name Priority Date/Time Associated Diagnosis Comments USV CAROTID DUPLEX ELEAZAR Routine 11/24/2022 Bilateral carotid artery stenosis USE ECHOCARDIOGRAM Routine 11/24/2022 Nonrheumatic aortic valve stenosis documented in this encounter Results * USE ECHOCARDIOGRAM (11/24/2022) Anatomical Region Laterality Modality Cardiac Echocardiogram us BELLO Velarde APRN ECHO Final Result * USV CAROTID DUPLEX ELEAZAR (11/24/2022) Anatomical Region Laterality Modality Neck Vascular Ultraso und us Brandie Jensen APRN, FAYE-C US VASC Final Result documented in this encounter Visit Diagnoses Diagnosis Bilateral carotid artery stenosis Occlusion and stenosis of multiple and bilateral precerebral arteries without mention of cerebral infarction Nonrheumatic aortic valve stenosis Aortic valve disorders documented in this encounter Care Teams It Security Specialist Relationship Specialty Start Date End Date Faisal Richardson DO [address] [place] [address] PCP - General FAMILY PRACTICE 11/29/22 Shiv Meehan MD [place] Finding Fastener CARDIOVASCULAR DISEASE 10/29/17 03/18/24 Brandie Jensen APRN, PIPE TESTING TECHNICIAN-C [address] [facility] [address] [place] [address] NURSE PRACTITIONER 02/08/21 Noé Crowley MD [address] [facility] [address] [place] [address] Surgeon ORTHOPAEDIC SURGERY 02/08/21 Jasper Figueroa MD [address] [facility]. [address] [place] [address] Surgeon NEUROLOGICAL SURGERY 12/08/21 Torrey Lafleur MD [address] [facility] [place] [address] ORTHOPAEDIC SURGERY 11/22/22 documented as of this encounter
--- OUTSIDE RECORDS SUMMARY | 2024-07-28 01:02 | XMS_ITS | Encounter Summary ---
Author Organization [facility] Address [address] [place] [address] [place] [address] Care Team Providers Care Concrete Vibrator Operator Name Role Phone Terri Ko MD Primary Care Provider Shiv Bains MD Unavailable Unavailabl e Reason for Visit * Reason Onset Date Comments Information 11/27/2017 Encounter Details Date Type Department Care Team (Late st Contact Info) Description 11/27/2017 Telephone [employer] [facility] [employer] [employer] [facility] [place] [address] Shiv Meehan MD Information Social History Tobacco Use Types Packs/Day [...] as of this encounter Progress Notes * Nataliia Flores - 11/27/2017 11:07 AM CDT Called pt's , Marguerite Palma, asking for contact information for pt's surgeon to send letter and clinic note. Pt will call back with the information. documented in this encounter Plan of Treatment Upcoming Encounters Date Type Department Care Team (Late st Contact Info) Description 12/11/2024 2:00 PM CDT Office Visit [facility] eld [address] [place] [address] Brandie Jensen APRN, BARREL DRILLER-C [address] [facility] [address] [place] [address] documented as of this encounter Visit Diagnoses Not on filedocumented in this encounter Care Teams Concrete Vibrator Operator Relationship Specialty Start Date End Date Terri Ko MD PCP - General SURGERY 10/29/17 03/29/20 Shiv Meehan MD [place] Egg Grader CARDIOVASCULAR DISEASE 10/29/17 03/18/24 documented as of this encounter
--- OUTSIDE RECORDS SUMMARY | 2024-07-28 01:02 | XMS_ITS | Encounter Summary ---
Author Organization [facility] Address [address] [facility] [place] [address] [place] [address] Care Team Providers Care Range Rider Name Role Phone Terri Ko MD Primary Care Provider Shiv Bains MD Unavailable Unavailabl e Reason for Visit * Reason Onset Date Comments Called To Cancel Office Appt. 02/26/2020 Encounter Details Date Type Department Care Team (Late st Contact Info) Description 02/26/2020 Telephone [employer] [facility] [employer] AT [address] [place] [address] Shiv Meehan MD Called To Cancel Office Appt. Social History Tobacco Use Types Packs/Day Years [...] of this encounter Progress Notes * Opal K Florin - 02/26/2020 10:18 AM CDT Pt called to cancel his f/u w/ Dr. Meehan on 03/04. Apparently pt thought his apt was today (02/25)and had taken the day off. He cannot take another day off of work on as well. Pt declined to reschedule at this time. Patient verbalized understanding and had no further questions. documented in this encounter Plan of Treatment Upcoming Encounters Date Type Department Care Team (Late st Contact Info) Description 12/11/2024 2:00 PM CDT Office Visit [facility] eld [address] [place] [address] Brandie Jensen, RECEIPT AND REPORT CLERK, COIN MACHINE COLLECTOR-C [address] [facility] [address] [place] [address] documented as of this encounter Visit Diagnoses Not on filedocumented in this encounter Care Teams Range Rider Relationship Specialty Start Date End Date Terri Ko MD PCP - General SURGERY 10/29/17 03/29/20 Shiv Meehan MD [place] Room Worker CARDIOVASCULAR DISEASE 10/29/17 03/18/24 documented as of this encounter
--- OUTSIDE RECORDS SUMMARY | 2024-07-28 01:02 | XMS_ITS | Encounter Summary ---
Author Organization [facility] Address [address] [facility] [place] [address] [place] [address] Care Team Providers Care Manager Property Name Role Phone Shiv Meehan MD, Steven Richard MD Primary Care Provider Reason for Visit * Imaging (Routine) - Closed Specialty Diagnoses / Procedures Referred By Kd t Referred To Contact RADIOLOGY Diagnoses AVD (aortic valve disease) LVH (left ventricular hypertrophy) Murmur Procedures USE ECHOCARDIOGRAM W CON USE ECHOCARDIOGRAM Brandie Jensen APRN, CONCRETE SWIMMING POOL INSTALLER-C [address] [facility] [address] [place] [address] Phone: tel: fax: Referral ID Status Reason Start Date Expiration Date Visits Re quested Visits Authorized [id number] Closed 06/24/2020 07/24/2020 1 1 Encounter Details Date Type Department Care Team (Latest Contact Info) Description 06/24/2020 8:38 AM MULE SPINNER - 06/24/2020 11:59 PM MULE SPINNER Hospital Encounter [facility] Non Invasive Cardiology - [facility] [address], [place] [address] Brandie Jensen APRN, CONCRETE SWIMMING POOL INSTALLER-C [address] [facility] [address] [place] [address] Discharge Disposition: Home or Self [...] have Coronavirus / COVID-19? No / Unsure 06/24/2020 8:35 AM MULE SPINNER documented as of this encounter Medications at Time of Discharge cyclobenzaprine 10 MG tablet Take 1 tablet (10 mg total) by mouth 2 (two) times a day. Losartan Potassium-HCTZ 100-12.5 MG Tab Take 1 tablet by mouth daily. 11/12/2017 metFORMIN 1000 MG tablet Take 1 tablet (1,000 mg total) by mouth 2 (two) times daily with meals. 11/12/2017 amlodipine 10 MG tablet Take 10 mg by mouth daily. 11/12/2017 12/08/2021 aspirin EC 81 MG EC tablet Take 81 mg by mouth daily. 11/29/2022 carvedilol 25 MG tablet Take 1 tablet (25 mg total) by mouth 2 (two) times daily. 60 tablet 2 05/10/2020 07/05/2020 cloNIDine 0.1 MG tablet Take 1 tablet (0.1 mg total) by mouth 2 (two) times daily. 11/12/2017 07/16/2023 diclofenac sodium 75 MG tablet Take 1 tablet (75 mg total) by mouth 2 (two) times daily. 11/12/2017 07/16/2023 gabapentin 300 MG capsule Take 300 mg by mouth 3 (three) times daily. 12/08/2021 glipiZIDE 10 MG tablet Take 10 mg by mouth every morning before breakfast. 11/12/2017 12/08/2021 pantoprazole EC 40 MG tablet Take 40 mg by mouth daily. 04/01/2020 12/08/2021 rosuvastatin 20 MG tablet Take 20 mg by mouth daily. 12/08/2021 zolpidem 12.5 MG CR tablet Take 12.5 mg by mouth nightly as needed for Sleep. 12/08/2021 documented as of this encounter Plan of Treatment Upcoming Encounters Date Type Department Care Team (Late st Contact Info) Description 12/11/2024 2:00 PM CDT Office Visit [facility] [address] [place] [phone] Brandie Jensen, DANCE THERAPIST, CONCRETE SWIMMING POOL INSTALLER-C [address] [facility] [address] [place] [address] documented as of this encounter Procedures Procedure Name Priority Date/Time Associated Diagnosis Comments USE ECHOCARDIOGRAM W CON Routine 06/24/2020 11:15 AM MULE SPINNER AVD (aortic valve disease) LVH (left ventricular hypertrophy) Murmur documented in this encounter Results * USE ECHOCARDIOGRAM W CON (06/24/2020 11:15 AM MULE SPINNER) Anatomical Region Laterality Modality NA Echocardiogram 06/24/2020 10:2 7 AM MULE SPINNER Narrative 06/25/2020 5:44 PM MULE SPINNER ?Echocardiography Report Pat.Name: ??TAYLOR RUTLEDGE ? Pat.ID: ?[id number] ? St.Date: ?? 06/24/2020 ? Refer.MD: ??[id number] JACQUIE Zayas ? EWDPROV ?EWDPROV Exam Time: 10:27:00 AM ? Study Type:ECHO W/CONTRAST COMPLETE Height: ?180cm ? Weight: ?134kg ? BSA: ? 2.49 m2 ?Age: ??1965,55Y ? Sex: ? MALE ?BP: ?144/80 ? HR: ?56 bpm ? Sonogrphr: Andrey Leiva RDCS, RVT, RDMS Pat. Stat.:Outpatient ?CPT - 4: ?[id number] ? Reason for Study: Aortic valve disease Procedures: ??2D, M-mode, Doppler, Color Flow, Definity was used to enhance endocardial definition. Race: ?W ? ++++++++++++++++++++++++++++++++++++ SUMMARY: ++++++++++++++++++++++++++++++++++++ Mild concentric left ventricular hypertrophy. ??The left ventricular systolic function is normal. ??Left ventricular diastolic function is abnormal. ??The calculated ejection fraction is 64%. Biatrial enlargement. Mild to moderate calcific aortic valve stenosis with a peak gradient of 36 mmHg (mean gradient of 23 mmHg). ??Trace aortic regurgitation. Trace mitral regurgitation. ++++++++++++++++++++++++++++++++++++ FINDINGS: ++++++++++++++++++++++++++++++++++++ LV: ? The left ventricular size is normal. The left ventricular ?systolic ??function is normal. The calculated ejection ?fraction ??is 64%. Mild concentric left ventricular ?hypertrophy. ??The lateral E/e' is elevated at >11. Left ?ventricular ??diastolic function is abnormal (grade 2 - ?pseudonormal ??pattern). WM: ? Wall motion appears normal in all segments. RV: ? The right ventricular size is moderately enlarged. Right ?ventricular ??systolic function is normal. TAPSE = 26mm (<16 ?mm ??indicates systolic RV dysfunction). LA: ? The left atrial volume is moderately increased (42-48 ?ml/M2). RA: ? Right atrial size is mildly enlarged. YOANDY: ? No evidence of pericardial effusion. AO: ? Normal aortic root. PA: ? Estimated right atrial pressure of 3 mmHg. Unable to ?reliably ??quantitate pulmonary systolic pressure. SVn: ?Inferior vena cava shows >50% collapse with respiration ?consistent ??with normal right atrial pressure. AV: ? The aortic valve is trileaflet. Mild to moderate aortic ?valve ??stenosis. The peak velocity across the aortic valve ?measures ??3.02m/sec with a peak gradient of 36mmHg and a ?mean ??gradient of 23mmHg. The calculated aortic valve area ?is ??1.5cm2. Trace aortic regurgitation. MV: ? Structurally normal mitral valve. Trace mitral ?regurgitation. PV: ? The pulmonic valve is normal There is trace pulmonic ?regurgitation TV: ? Structurally normal tricuspid valve. No evidence of ?tricuspid ??regurgitation. ++++++++++++++++++++++++++++++++++++ MEASUREMENTS: ++++++++++++++++++++++++++++++++++++ ?DOPPLER LVOT ?? LVOTpkPG ? 4 mmHg ?LVOTmnPG ? 2 mmHg LVOTpkVel ?102 cm/s (70-110) LVOT SV ?107 ml ?? LVOT TVI ?23.6 cm ?LVOT CO ?100 ml/s AV Forward Flow AV TVI ?75.4 cm ?AV pkPG ? 36 mmHg AV pkVel ? 302 cm/s (100-170)* Area (TVI) ?1.41 cm2 ??(3-5)* AV mnVel ? 229 cm/s ?Area (Ted) ?1.53 cm2 ??(3-5)* AV mnPG ? 23 mmHg ? MV Forward Flow MV DeTm ?225 ms ?MV E/A ? 1.3 ? MVA P1/2t ? 3.33 cm2 ??(4-6)* ?? MV pkE ?84.4 cm/s (60-130) MV P1/2t ?66 ms ?? (30-60)+* MV pkA ?63.4 cm/s Lat E' ?? Lat e ? 6.64 cm/s ? Lat E/E' ?? Lat E/e ? 12.7 ? Med E' ?? Med e ? 5.77 cm/s ? Med E/E' ?? Med E/e ? 14.6 ? Aortic Valve ?? Aortic Valve Ar ??0.57 ?Aortic Valve Ve ??0.34 ? AV DI ?? Value ?0.3 ? JAYLAN (VTI) Index ?? Value ? 0.57 ? LV Mass 2D ?? Value ?272 g ? LV Mass [id number] ?? Value ?109 g/m2 ? RA Volume ?? Atrial Carey ?? 5.82 cm ? Atrial Carey ?? 23.9 cm2 Atrial Carey ? 82 ml ? Right Ventricle ?? Right Ventricle ??11.9 cm/s ?2D Left Ventricle ?? LVIDd ? 5.69 cm ?? (3.6-5.2)* LV EF(Bi-Plane) ?64 % ?(63-77) LVIDs ? 3.83 cm ?? (2.3-3.9) LVPW ?? LVPWd ? 1.15 cm ? Right Ventricle ?? RV LAx ? 9.6 cm ?RV MidCav D ?4 cm ?? RV Basal D ?5.85 cm ? Ventricular Septum ?? IVSd ?1.15 cm ? Aorta ?? Ao Rtd ? 3.2 cm ? Ao Asc ? 3.3 cm ?? (2.1-3.4) LVOT ?? LVOT ? 2.4 cm ? Ratios ?? IVS LA Biplane LAVol I BP ?47 ml/m2 ?MMODE Left Atrium ?? LAID ? 5.7 cm ?? (1.9-4)* Ratios ?? LA/Ao ? 1.68 ?(0.87-1.1)* Aorta ?? Ao Rt ?3.4 cm ?? (2-3.7) Tricuspid Valve ?? TAPSE ? 2.65 cm ? Signed 06/25/2020 05:44 PM Shiv Meehan M.D. Procedure Note Shiv Meehan MD - 06/25/2020 Echocardiography Report Pat.Name: TAYLOR RUTLEDGE Pat.ID: [id number] .Date: 06/24/2020 Refer.MD: [id number] JACQUIE Zayas EWDPROV EWDPROV Exam Time: 10:27:00 AM Study Type:ECHO W/CONTRAST COMPLETE Height: 180cm Weight: 134kg BSA: 2.49 m2 Age: 9 1965,55Y Sex: MALE BP: 144/80 HR: 56 bpm Sonogrphr: Andrey Leiva RDCS, RVT, RDMS Pat. Stat.:Outpatient CPT - 4: [id number] Reason for Study: Aortic valve disease Procedures: 2D, M-mode, Doppler, Color Flow, Definity was used to enhance endocardial definition. Race: W ++++++++++++++++++++++++++++++++++++ SUMMARY: ++++++++++++++++++++++++++++++++++++ Mild concentric left ventricular hypertrophy. The left ventricular systolic function is normal. Left ventricular diastolic function is abnormal. The calculated ejection fraction is 64%. Biatrial enlargement. Mild to moderate calcific aortic valve stenosis with a peak gradient of 36 mmHg (mean gradient of 23 mmHg). Trace aortic regurgitation. Trace mitral regurgitation. ++++++++++++++++++++++++++++++++++++ FINDINGS: ++++++++++++++++++++++++++++++++++++ LV: The left ventricular size is normal. The left ventricular systolic function is normal. The calculated ejection fraction is 64%. Mild concentric left ventricular hypertrophy. The lateral E/e' is elevated at >11. Left ventricular diastolic function is abnormal (grade 2 - pseudonormal pattern). WM: Wall motion appears normal in all segments. RV: The right ventricular size is moderately enlarged. Right ventricular systolic function is normal. TAPSE = 26mm (<16 mm indicates systolic RV dysfunction). LA: The left atrial volume is moderately increased (42-48 ml/M2). RA: Right atrial size is mildly enlarged. YOANDY: No evidence of pericardial effusion. AO: Normal aortic root. PA: Estimated right atrial pressure of 3 mmHg. Unable to reliably quantitate pulmonary systolic pressure. SVn: Inferior vena cava shows >50% collapse with respiration consistent with normal right atrial pressure. AV: The aortic valve is trileaflet. Mild to moderate aortic valve stenosis. The peak velocity across the aortic valve measures 3.02m/sec with a peak gradient of 36mmHg and a mean gradient of 23mmHg. The calculated aortic valve area is 1.5cm2. Trace aortic regurgitation. MV: Structurally normal mitral valve. Trace mitral regurgitation. PV: The pulmonic valve is normal There is trace pulmonic regurgitation TV: Structurally normal tricuspid valve. No evidence of tricuspid regurgitation. ++++++++++++++++++++++++++++++++++++ MEASUREMENTS: ++++++++++++++++++++++++++++++++++++ DOPPLER LVOT LVOTpkPG 4 mmHg LVOTmnPG 2 mmHg LVOTpkVel 102 cm/s (70-110) LVOT SV 107 ml LVOT TVI 23.6 cm LVOT CO 100 ml/s AV Forward Flow AV TVI 75.4 cm AV pkPG 36 mmHg AV pkVel 302 cm/s (100-170)* Area (TVI) 1.41 cm2 (3-5)* AV mnVel 229 cm/s Area (Ted) 1.53 cm2 (3-5)* AV mnPG 23 mmHg MV Forward Flow MV DeTm 225 ms MV E/A 1.3 MVA P1/2t 3.33 cm2 (4-6)* MV pkE 84.4 cm/s (60-130) MV P1/2t 66 ms (30-60)+* MV pkA 63.4 cm/s Lat E' Lat e 6.64 cm/s Lat E/E' Lat E/e 12.7 Med E' Med e 5.77 cm/s Med E/E' Med E/e 14.6 Aortic Valve Aortic Valve Ar 0.57 Aortic Valve Ve 0.34 AV DI Value 0.3 JAYLAN (VTI) Index Value 0.57 LV Mass 2D Value 272 g LV Mass [id number] Value 109 g/m2 RA Volume Atrial Carey 5.82 cm Atrial Carey 23.9 cm2 Atrial Carey 82 ml Right Ventricle Right Ventricle 11.9 cm/s 2D Left Ventricle LVIDd 5.69 cm (3.6-5.2)* LV EF(Bi-Plane) 64 % (63-77) LVIDs 3.83 cm (2.3-3.9) LVPW LVPWd 1.15 cm Right Ventricle RV LAx 9.6 cm RV MidCav D 4 cm RV Basal D 5.85 cm Ventricular Septum IVSd 1.15 cm Aorta Ao Rtd 3.2 cm Ao Asc 3.3 cm (2.1-3.4) LVOT LVOT 2.4 cm Ratios IVS LA Biplane LAVol I BP 47 ml/m2 MMODE Left Atrium LAID 5.7 cm (1.9-4)* Ratios LA/Ao 1.68 (0.87-1.1)* Aorta Ao Rt 3.4 cm (2-3.7) Tricuspid Valve TAPSE 2.65 cm Signed 06/25/2020 05:44 PM Shiv Meehan M.D. Brandie Jensen APRN, CONCRETE SWIMMING POOL INSTALLER-C ECHO Final Result documented in this encounter Visit Diagnoses Diagnosis AVD (aortic valve disease) Aortic valve disorders LVH (left ventricular hypertrophy) Cardiomegaly Murmur Undiagnosed cardiac murmurs documented in this encounter Administered Medications Inactive Administered Medications - up to 3 most recent administrations Medication Order MAR Action Action Date Dose Rate Site perflutren lipid microsphere (DEFINITY) injection 1 mL 1 mL, Intravenous, IMG once as needed, Contrast, 1 dose, Starting on Hetal 06/24/20 at 1115, Until Hetal 06/24/20 at 1115, Administer over 30-60 seconds. Follow with 10 mL saline flush. Given 06/24/2020 11:15 AM MULE SPINNER 1 mL documented in this encounter Care Teams Manager Property Relationship Specialty Start Date End Date Jesús Wang MD [address] [place] [address] PCP - General FAMILY PRACTICE 04/06/20 11/28/22 Shiv Meehan MD [place] [employer] Operator For Plastic CARDIOVASCULAR DISEASE 10/29/17 03/18/24 documented as of this encounter
--- OUTSIDE RECORDS SUMMARY | 2024-07-28 01:02 | XMS_ITS | Encounter Summary ---
Author Organization [facility] Address [address] [place] [place] [address] [place] [address] Care Team Providers Care Newspaper Editor Name Role Phone Terri Ko MD Primary Care Provider Shiv Bains MD Unavailable Unavailabl e Reason for Visit * Reason Onset Date Comments Appointment Reminder 02/12/2020 Encounter Details Date Type Department Care Team ([facility] st Contact Info) Description 02/12/[address] [facility] [address] [place] [address] Brandie Jensen APRN, FOUNDRY HAND-C [address] [facility] [address] [place] [address] Appointment Reminder Social History Tobacco Use Types Packs/Day Years [...] encounter Progress Notes * Brandie Jensen APRN, FOUNDRY HANDBabitaC - 02/12/2020 12:45 PM CDT Attempted to reach Mr. Rutledge. He is due for his annual f/u. Left message to return call to schedule. documented in this encounter Plan of Treatment Upcoming Encounters Date Type Department Care Team (Late st Contact Info) Description 12/11/2024 2:00 PM CDT Office Visit [facility] eld [address] [place] [phone] Brandie Jensen APRN, FOUNDRY HAND-C [address] [facility] [address] [place] [phone] documented as of this encounter Visit Diagnoses Not on filedocumented in this encounter Care Teams Newspaper Editor Relationship Specialty Start Date End Date Terri Ko MD PCP - General SURGERY 10/29/17 03/29/20 Shiv Meehan MD [place] Actuarial Science Teacher CARDIOVASCULAR DISEASE 10/29/17 03/18/24 documented as of this encounter
--- OUTSIDE RECORDS SUMMARY | 2024-07-28 01:02 | XMS_ITS | Encounter Summary ---
Author Organization [facility] Address [facility] [facility] [place] [address] [place] [address] Care Team Providers Care Touch Up Painter Hand Name Role Phone Terri Ko MD Primary Care Provider Shiv Bains MD Unavailable Unavailabl e Reason for Visit * Reason Comments Stress Test (SCAN) Encounter Details Date Type Department Care Team (Late Contact Info) Description 10/15/2017 Scan [facility] [address] [place] [address] Scanned, Documents Stress Test (SCAN) Social History Tobacco Use Types Packs/Day Years Used Date Smoking Tobacco: Never Assessed Sex and Gender Information Value Date Recorded Sex Assigned at Not on file Legal Sex Male 1:42 PM CDT Gender Identity Not on file Sexual Orientation Not on file documented as of this encounter Plan of Treatment Upcoming Encounters Date Type Department Care Team (Late Contact Info) Description 12/11/2024 2:00 PM CDT [facility] [address] [place] [address] Brandie Jensen, SHANNAN, BIOCHEMIST-C [address] [facility] [address] [place] [address] documented as of this encounter Procedures Procedure Name Priority Date/Time Associated Diagnosis Comments STRESS TEST (SCAN ORDER) Routine 10/15/2017 STRESS TEST (SCAN ORDER) Routine 10/15/2017 ECHO GENERIC (SCAN ORDER) Routine 10/15/2017 documented in this encounter Results * ECHO (10/15/2017) Anatomical Region Laterality Modality Other us Documents Scanned SCANNING Final Result * STRESS TEST (10/15/2017) us Documents Scanned SCANNING Final Result * STRESS TEST (10/15/2017) us Documents Scanned SCANNING Final Result documented in this encounter Visit Diagnoses Not on filedocumented in this encounter Care Teams Touch Up Painter Hand Relationship Specialty Start Date End Date Terri Ko MD PCP - General SURGERY 10/29/17 03/29/20 Shiv Meehan MD [place] [facility] Technician CARDIOVASCULAR DISEASE 10/29/17 03/18/24 documented as of this encounter
--- OUTSIDE RECORDS SUMMARY | 2024-07-28 01:02 | XMS_ITS | Encounter Summary ---
Author Organization [facility] Address [address] [place] [address] [place] [address] Care Team Providers Care Traffic Supervisor Name Role Phone Shiv Meehan MD, Steven Richard MD Primary Care Provider Reason for Visit * Reason Onset Date Comments Results 06/28/2020 Echo Encounter Details Date Type Department Care Team ([facility] st Contact Info) Description 06/28/2020 Telephone [facility] [address] [place] [address] Brandie Jensen, BOAT TESTER, HEALTH AND WELLNESS DIRECTOR-C [address] [facility] [address] [place] [address] Results (Echo) Social History Tobacco Use Types Packs/Day Years [...] COVID-19? No / Unsure 06/24/2020 8:35 AM WORKSHOP MANAGER documented as of this encounter Progress Notes * Ligia Vaughan RN - 06/28/2020 11:51 AM CST Spoke to pt's Marguerite Palma regarding pt's echo results. Marguerite Palma states pt has not said anythingabout his BP, but he has not gotten his carvedilol yet. She will call the pharmacy. Once pt begins taking carvedilol, pt to call in 1-2 weeks with BP update. Marguerite Palma v/u. She will pass message along to pt. SHOP MANAGER * Ligia Vaughan RN - 06/28/2020 11:47 AM CST ----- Message from Brandie Jensen APRN, HEALTH AND WELLNESS DIRECTOR-C sent at 06/26/2020 5:37 PM WORKSHOP MANAGER ----- Echo relatively sable. LVEF normal. Aortic stenosis progressed to now mild to moderate. I know he would like to minimize testing if possible, so if he is against annual echos, we can recheck in 2 years. Still f/u in clinic in one year. His BP was high (144/80). How has it been at home? SHOP MANAGER documented in this encounter Plan of Treatment Upcoming Encounters Date Type Department Care Team (Late st Contact Info) Description 12/11/2024 2:00 PM CDT Office Visit [facility] [address] [place] [phone] Brandie Jensen APRN, HEALTH AND WELLNESS DIRECTOR-C [address] [facility] [address] [place] [address] [phone] documented as of this encounter Visit Diagnoses Not on filedocumented in this encounter Care Teams Traffic Supervisor Relationship Specialty Start Date End Date Jesús Wang MD [address] [place] [address] PCP - General FAMILY PRACTICE 04/06/20 11/28/22 Shiv Meehan MD [place] Switch[employer] And Control Room Operator CARDIOVASCULAR DISEASE 10/29/17 03/18/24 documented as of this encounter
--- OUTSIDE RECORDS SUMMARY | 2024-07-28 01:02 | XMS_ITS | Encounter Summary ---
Author Organization [facility] Address [address] [facility] [address] [place] [address] Care Team Providers Care Forest Management Professor Name Role Phone Terri Ko MD Primary Care Provider Shiv Bains MD Unavailable Unavailabl e Reason for Referral * Imaging (Routine) - Closed Specialty Diagnoses / Procedures Referred By Contac t Referred To Contact CARDIOLOGY Diagnoses Angina at rest (CMS/HCC) Abnormal stress test Dyspnea Procedures [facility] [address] Shiv Meehan MD [facility] [address] [place] [address] Phone: tel: fax: Referral ID Status Reason Start Date Expiration Date Visits Re quested Visits Authorized [id number] Closed 11/23/2017 05/22/2018 1 1 Encounter Details Date Type Department Care Team (Late st Contact Info) Description 11/16/2017 Orders Only [facility] [facility] [address] [place] [phone] Shiv Meehan MD Social History Tobacco Use Types [...] 12/11/2024 2:00 PM CDT Office Visit [facility] [address] [place] [phone] Brandie Jensen, VIDEO COORDINATOR, TRANSITIONS RN CARE COORDINATOR-C [address] [facility] [address] [place] [phone] documented as of this encounter Results * [facility] (11/23/2017 2:47 PM CDT) Anatomical Region Laterality Modality Cardiac Logistics Planning Manager 11/23/2017 1:00 PM CDT us Shiv Meehan MD TANKAGE SUPERVISOR Final Resul t documented in this encounter Visit Diagnoses Diagnosis Angina at rest (CMS/HCC)- Primary Other and unspecified angina pectoris Abnormal stress test Other nonspecific abnormal cardiovascular system function study Dyspnea Other dyspnea and respiratory abnormality documented in this encounter Care Teams Forest Management Professor Relationship Specialty Start Date End Date Terri Ko MD PCP - General SURGERY 10/29/17 03/29/20 Shiv Meehan MD [employer] Manager CARDIOVASCULAR DISEASE 10/29/17 03/18/24 documented as of this encounter
--- OUTSIDE RECORDS SUMMARY | 2024-07-28 01:02 | XMS_ITS | Encounter Summary ---
Author Organization [facility] Address [address] [place] [address] [place] [address] Care Team Providers Care Navy Diver Name Role Phone Shiv Meehan MD [facility] Jesús Bennett MD Primary Care Provider Reason for Referral * Imaging (Routine) - Closed Specialty Diagnoses / Procedures Referred By Contac t Referred To Contact RADIOLOGY Diagnoses Mild coronary artery disease AVD (aortic valve disease) LVH (left ventricular hypertrophy) Essential hypertension Procedures USE ECHOCARDIOGRAM Shiv Meehan MD [facility] [address] Phone: tel: fax: Referral ID Status Reason Start Date Expiration Date Visits Re quested Visits Authorized [id number] Closed 02/01/2021 02/01/2021 99 99 Reason for Visit * Reason Onset Date Comments Testing 01/24/2021 Encounter Details Date Type Department Care Team ([facility] Contact Info) Description 01/24/2021 Telephone [facility] [address] [place] [address] Shiv Meehan MD Testing Social History Tobacco Use Types Packs/Day Years [...] as of this encounter Progress Notes * Urszula Rodriguez - 01/24/2021 3:34 PM CDT This was placed on the que for precert. Thank You, Urszula * Aleta العلي RN - 01/24/2021 2:12 PM CDT returned call, agrees at present to scheduled echo appointment and follow up appointment. Will call back if needing to reschedule * Aleta العلي RN - 01/24/2021 1:39 PM CDT [facility] requesting clearance for patient to have a left knee scope on 02/14/[address] Meehan: patient will need and echocardiogram and clinic appointment to provide clearance. Phoned patient, spoke with ; made aware of need for echocardiogram and f/u appointment for clearance Prefers echo to be scheduled in Post Echo scheduled for 02/01/21 at 2:30 pm F/U scheduled w/ S. Mikey CANDY FEEDER for 02/08/21 at 3:30 PM. Phoned patient/ back, no answer, message left with above dates/time for testing and f/u Requested that he call back to confirm documented in this encounter Plan of Treatment Upcoming Encounters Date Type Department Care Team ([facility] Contact Info) Description 12/11/2024 2:00 PM CDT Office Visit [facility] eld [address] [place] [address] Brandie Jensen, CONSTRUCTION MANAGER, CANDY FEEDER-C [address] [facility] [address] [place] [address] documented as of this encounter Results * USE ECHOCARDIOGRAM (02/01/2021) Anatomical Region Laterality Modality Cardiac Echocardiogram us Shiv Meehan MD ECHO Final Resul t documented in this encounter Visit Diagnoses Diagnosis Mild coronary artery disease- Primary AVD (aortic valve disease) Aortic valve disorders LVH (left ventricular hypertrophy) Cardiomegaly Essential hypertension Unspecified essential hypertension documented in this encounter Care Teams Navy Diver Relationship Specialty Start Date End Date Jesús Wang MD [address] [place] [address] PCP - General FAMILY PRACTICE 04/06/20 11/28/22 Shiv Meehan MD [place] [employer] Officer CARDIOVASCULAR DISEASE 10/29/17 03/18/24 documented as of this encounter
--- OUTSIDE RECORDS SUMMARY | 2024-07-28 01:02 | XMS_ITS | Encounter Summary ---
Author Organization [facility] Address [address] [place] [address] [place] [address] Care Team Providers Care Loss Prevention Analyst Name Role Phone Shiv Meehan MD [facility] Jesús Merlos MD Primary Care Provider Reason for Visit * Reason Onset Date Comments Blood Pressure 05/07/2020 Update Encounter Details Date Type Department Care Team ([facility] st Contact Info) Description 05/07/2020 Telephone [facility] [address] [place] [address] Brandie Jensen, SHANNAN, SLAT PICKLER-C [address] [facility] [address] [place] [address] Blood Pressure (Update) Social History Tobacco Use Types Packs/Day Years [...] have Coronavirus / COVID-19? No / Unsure 04/16/2020 2:48 PM CDT documented as of this encounter Progress Notes * Ligia No RN - 05/10/2020 10:53 AM CDTAddended by: LIGIA NO on: 05/10/2020 10:53 AM Modules accepted: Orders * Ligia No RN - 05/10/2020 10:52 AM CDT Spoke to Marguerite Bello, pt's . Pt to increase carvedilol to 25 mg BID and call in 2 weeks with BP update. Marguerite Bello v/u and had no further questions. * Millie Burroughs RN - 05/07/2020 4:59 PM CDT Pt called back. Please try him again on Sunday. * Ligia No RN - 05/07/2020 4:49 PM CDT Phoned pt to discuss recommendations. LMTC back. * Brandie Jensen APRN, SLAT PICKLER-C - 05/07/2020 4:46 PM CDT More than half the readings higher than goal. Let's increase carvedilol to 25 mg BID. Call back with update in two weeks. * Millie Ashton RN - 05/07/2020 4:11 PM CDT Pt calling back with his blood pressure Apr 25 136/73 9:30 pm Apr 21 146/78 at 10 pm Apr 24 155/79 at 9 pm Apr 25 124/69 at 1 am Apr 27 121/67 at 9 pm Oct 2 145/81 at 4 pm Pt with no complaints Call bk # [phone] * Millie Ashton RN - 05/07/2020 2:03 PM CDT Marguerite Bello called back states Brandie Jensen SLAT PICKLER was wanting to know what pt's BP has been running since he was changed from metoprolol to carvedilol not sure if pt has been doing any blood pressure readings, she did see the monitor on the table, she is going to text him now to see if he has any BP readings, she will call bck Marguerite bello made aware if he has not then to start & call bck next week with his readings she v.u * Ligia No RN - 05/07/2020 12:09 PM CDT Phoned pt to get BP update since switching metoprolol tartrate 50 mg BID to carvedilol 12.5 mg BID.LMTC back. * Ligia No RN - 05/07/2020 12:07 PM CDT ----- Message from Brandie Jensen APRN, SLAT PICKLER-C sent at 04/16/2020 4:10 PM CDT ----- Call for update on BP documented in this encounter Plan of Treatment Upcoming Encounters Date Type Department Care Team (Late st Contact Info) Description 12/11/2024 2:00 PM CDT Office Visit [facility] [address] [place] [address] Brandie Jensen APRN, SLAT PICKLER-C [address] [facility] [address] [place] [address] documented as of this encounter Visit Diagnoses Not on filedocumented in this encounter Care Teams Loss Prevention Analyst Relationship Specialty Start Date End Date Jesús Wang MD [address] [place] [address] PCP - General FAMILY PRACTICE 04/06/20 11/28/22 Shiv Meehan MD [employer] System Administrator CARDIOVASCULAR DISEASE 10/29/17 03/18/24 documented as of this encounter
--- OUTSIDE RECORDS SUMMARY | 2024-07-28 01:02 | XMS_ITS | Encounter Summary ---
Author Organization [facility] Address [address] [facility] [place] [address] [place] [address] Care Team Providers Care Area Development Manager Name Role Phone Terri Ko MD Primary Care Provider Shiv Bains MD Unavailable Unavailabl e Reason for Visit * Reason Comments ECG (SCAN) Encounter Details Date Type Department Care Team (Late st Contact Info) Description 09/17/2017 Scan [facility] [address] [place] [address] Scanned, Documents ECG (SCAN) Social History Tobacco Use Types Packs/Day [...] Description 12/11/2024 2:00 PM CDT [facility] [address] [place] [address] Brandie Jensen, SHANNAN, COTTON DISPATCHER-C [address] [facility] [address] [place] [address] documented as of this encounter Procedures Procedure Name Priority Date/Time Associated Diagnosis Comments ECG GENERIC (SCAN ORDER) Routine 09/17/2017 documented in this encounter Results * ECG (09/17/2017) us Documents Scanned SCANNING Final Result documented in this encounter Visit Diagnoses Not on filedocumented in this encounter Care Teams Area Development Manager Relationship Specialty Start Date End Date Terri Ko MD PCP - General SURGERY 10/29/17 03/29/20 Shiv Meehan MD [place] Director Commercial Sales CARDIOVASCULAR DISEASE 10/29/17 03/18/24 documented as of this encounter
--- OUTSIDE RECORDS SUMMARY | 2024-07-28 01:02 | XMS_ITS | Encounter Summary ---
Author Organization [facility] Address [address] [facility] [place] [address] [place] [address] Care Team Providers Care Farmworker Brooder Farm Name Role Phone Terri Ko MD Primary Care Provider [facility]iv Bains MD Un[facility] Encounter Details Date Type Department Care Team (Late st Contact Info) Description 11/15/2017 FIREWORKS MAKER ONLY [facility] [address] [place] [address] Shiv Meehan MD Social History Tobacco Use [...] as of this encounter Progress Notes * Shiv Meehan MD - 11/15/2017 2:00 PM CDT Just a quick note regarding our mutual patient, Jose Rutledge. He recently was seen in the cardiologyclinic for preoperative assessment of his cardiovascular risk prior to undergoing back surgery scheduled for 12/10/17. I have enclosed a copy of my clinic note for your review. Mr. Rutledge subsequently underwent cardiac catheterization which revealed widely patent coronary arteries without hemodynamically significant coronary artery disease. He appears to have mild aortic valvedisease and his abnormal nuclear stress test appears to have been a false positive. Clinically, Mr. Rutledge is quite stable without ongoing chest pain, overt symptoms of congestive heart failure, or clinical evidence of hemodynamically significant arrhythmias. In summary, I believe that Mr. Rutledge's cardiovascular risk of the proposed back surgery is mildly increased in light of his mild aortic valve disease, diabetes mellitus, and probable obstructive sleep apnea. This mildly increased cardiovascular risk is felt to be acceptable in light of the overall clinical situation. At the time of surgery, I would recommend the followin. Perioperative telemetry monitoring. 2. Perioperative maintenance of beta blockade and statin therapy. 3. Maintenance of a serum hemoglobin of 8.00 or greater. Thank you for the opportunity to participate in Mr. Rutledge's care. If I can answer any questions or provide any further assistance from a cardiovascular standpoint, please do not hesitate to contact me. Sincerely, Shiv Meehan III, M.D. Cc: Dr. Ko documented in this encounter Plan of Treatment Upcoming Encounters Date Type Department Care Team (Late st Contact Info) Description 12/11/2024 2:00 PM CDT Office Visit [facility] el[facility] [address] [place] [address] Brandie Jensen APRN, CUSTOM GARMENT DESIGNER-C [address] [facility] [address] [place] [address] documented as of this encounter Visit Diagnoses Not on filedocumented in this encounter Care Teams Farmworker Brooder Farm Relationship Specialty Start Date End Date Terri Ko MD PCP - General SURGERY 10/29/17 03/29/20 Shiv Meehan MD [place] Automotive Technician CARDIOVASCULAR DISEASE 10/29/17 03/18/24 documented as of this encounter
--- OUTSIDE RECORDS SUMMARY | 2024-07-28 01:02 | XMS_ITS | Encounter Summary ---
Author Organization [facility] Address [address] [facility]. [place], [place] [address] [place] [id number] Care Team Providers Care Blue Line Operator Name Role Phone Shiv Meehan MD, Steven Richard MD Primary Care Provider Reason for Referral * Imaging (Routine) - Closed Specialty Diagnoses / Procedures Referred By Contac t Referred To Contact RADIOLOGY Diagnoses Carotid artery plaque Procedures USV CAROTID DUPLEX ELEAZAR Thaddeus Dhillon APRN, NP-C [address] [facility] [address] [place] [address] Phone: tel: fax: Referral ID Status Reason Start Date Expiration Date Visits Re quested Visits Authorized [id number] Closed 06/24/2020 07/24/2020 1 1 * Imaging (Routine) - Closed Specialty Diagnoses / Procedures Referred By Contac t Referred To Contact RADIOLOGY Diagnoses Hypertension Procedures USV ABD PEL OR RETRO DUPLEX COMP Thaddeus Dhillon APRN, NP-C [address] [facility] [address] [place] [address] Phone: tel: fax: Referral ID Status Reason Start Date Expiration Date Visits Re quested Visits Authorized [id number] Closed 05/26/2020 06/26/2021 1 1 Encounter Details Date Type Department Care Team (Late Contact Info) Description 05/26/2020 Orders Only [facility] [address] [place] [phone] Thaddeus Dhillon APRN, CAFE AIDEKaleb [address] [facility] [address] [place] [phone] Social History Tobacco Use Types Packs/Day Years [...] 2:00 PM CDT Office Visit [facility] eld [address] [place] [phone] Thaddeus Dhillon APRN, CAFE AIDE-C [address] [facility] [address] [place] [phone] documented as of this encounter Results * USV ABD PEL OR RETRO DUPLEX COMP (06/24/2020 9:58 AM COMPUTER GRAPHICS ILLUSTRATOR) Anatomical Region Laterality Modality NA Ultrasound 06/24/2020 8:55 AM COMPUTER GRAPHICS ILLUSTRATOR Narrative 06/24/2020 4:54 PM COMPUTER GRAPHICS ILLUSTRATOR ?Vascular Report Pat.Name: ??TAYLOR RUTLEDGE NATTY ? Pat.ID: ?[id number] ? St.Date: ?? 06/24/2020 ?Refer.: ??THADDEUS DHILLON ? Exam Time: 8:55:00 AM ? Study Type:PVI DUPLEX SCAN-RENAL ART ??Age: ??1965,55Y ? Sex: ? MALE ? Sonogrphr: Cecy Pineda, RVMarc Javier Pat. Stat.:Outpatient ? ICD - 9: ?? I10 Essential (primary) hypertension CPT - 4: ?26288 Arterial Inflow and Venous outflow Renal complete Reason for Study: Hypertension ? Race: ?W ? ++++++++++++++++++++++++++++++++++++ FINDINGS: ++++++++++++++++++++++++++++++++++++ R Kidney: Kidney dimensions are within normal limits. Resistive index ?suggests ??no evidence of intrinsic kidney disease. Rt Renal Art: Renal artery appears patent without evidence of a ?hemodynamically ??significant stenosis. Unable to visualize ?the ??renal artery at the origin. L Kidney: Kidney dimensions within normal limits. Resistive index ?suggests ??no evidence of intrinsic kidney disease. Lt Renal Art: Renal artery appears patent without evidence of a ?hemodynamically ??significant stenosis. Comments: Technically difficult exam due to bowel gas and body ?habitus. ++++++++++++++++++++++++++++++++++++ MEASUREMENTS: ++++++++++++++++++++++++++++++++++++ ?RENAL ART Right Prox ?? Prox PSV ?97.2 cm/s ?Prox EDV ?34.2 cm/s Right Mid ?? Mid PSV ? 63.6 cm/s ?Mid EDV ? 18 cm/s Right Distal ?? Distal PSV ?92.9 cm/s ?Distal EDV ?29.9 cm/s Left Origin ?? Origin PSV ? 131 cm/s ?Origin EDV ?28.7 cm/s Left Prox ?? Prox PSV ? 131 cm/s ?Prox EDV ?31.2 cm/s Left Mid ?? Mid PSV ? 83.7 cm/s ?Mid EDV ? 20.8 cm/s Left Distal ?? Distal PSV ?97.8 cm/s ?Distal EDV ?28.1 cm/s ? AO-ILIAC Left Kidney ?? Kidney Size ? 13.3 cm ? Right Kidney ?? Kidney Size ? 11 cm ?PARENCHYMA Left Lower Pole Arcuate Artery ?? Lower Pole Arcu ?? 0.7 ?Lower Pole Arcu ??3.13 cm/s Lower Pole Arcu ??11.6 cm/s ? Left Mid Pole Arcuate Artery ?? Mid Pole Arcuat ?? 0.6 ?Mid Pole Arcuat ??3.81 cm/s Mid Pole Arcuat ??10.7 cm/s ? Left Upper Pole Arcuate Artery ?? Upper Pole Arcu ??0.71 ?Upper Pole Arcu ?? 8.9 cm/s Upper Pole Arcu ??31.2 cm/s ? Right Lower Pole Arcuate Artery ?? Lower Pole Arcu ??10.2 cm/s ? Lower Pole Arcu 0.716 ? Lower Pole Arcu ?? 2.9 cm/s ? Right Mid Pole Arcuate Artery ?? Mid Pole Arcuat ??14.4 cm/s ? Mid Pole Arcuat 0.743 ? Mid Pole Arcuat ?? 3.7 cm/s ? Right Upper Pole Arcuate Artery ?? Upper Pole Arcu ??34.7 cm/s ? Upper Pole Arcu 0.767 ? Upper Pole Arcu ?? 8.1 cm/s ? Signed 06/24/2020 04:54 PM Tavo Fraser M.D. Procedure Note Tavo Fraser MD - 06/24/2020 Vascular Report Pat.Name: TAYLOR RUTLEDGE Pat.ID: [id number] .Date: 06/24/2020 Refer.MD: THADDEUS DHILLON Exam Time: 8:55:00 AM Study Type:PVI DUPLEX SCAN-RENAL ART Age: 8 1965,55Y Sex: MALE Sonogrphr: Cecy Pineda, RVT Tete Javier Pat. Stat.:Outpatient ICD - 9: I10 Essential (primary) hypertension CPT - 4: 06719 Arterial Inflow and Venous outflow Renal complete Reason for Study: Hypertension Race: W ++++++++++++++++++++++++++++++++++++ FINDINGS: ++++++++++++++++++++++++++++++++++++ R Kidney: Kidney dimensions are within normal limits. Resistive index suggests no evidence of intrinsic kidney disease. Rt Renal Art: Renal artery appears patent without evidence of a hemodynamically significant stenosis. Unable to visualize the renal artery at the origin. L Kidney: Kidney dimensions within normal limits. Resistive index suggests no evidence of intrinsic kidney disease. Lt Renal Art: Renal artery appears patent without evidence of a hemodynamically significant stenosis. Comments: Technically difficult exam due to bowel gas and body habitus. ++++++++++++++++++++++++++++++++++++ MEASUREMENTS: ++++++++++++++++++++++++++++++++++++ RENAL ART Right Prox Prox PSV 97.2 cm/s Prox EDV 34.2 cm/s Right Mid Mid PSV 63.6 cm/s Mid EDV 18 cm/s Right Distal Distal PSV 92.9 cm/s Distal EDV 29.9 cm/s Left Origin Origin PSV 131 cm/s Origin EDV 28.7 cm/s Left Prox Prox PSV 131 cm/s Prox EDV 31.2 cm/s Left Mid Mid PSV 83.7 cm/s Mid EDV 20.8 cm/s Left Distal Distal PSV 97.8 cm/s Distal EDV 28.1 cm/s AO-ILIAC Left Kidney Kidney Size 13.3 cm Right Kidney Kidney Size 11 cm PARENCHYMA Left Lower Pole Arcuate Artery Lower Pole Arcu 0.7 Lower Pole Arcu 3.13 cm/s Lower Pole Arcu 11.6 cm/s Left Mid Pole Arcuate Artery Mid Pole Arcuat 0.6 Mid Pole Arcuat 3.81 cm/s Mid Pole Arcuat 10.7 cm/s Left Upper Pole Arcuate Artery Upper Pole Arcu 0.71 Upper Pole Arcu 8.9 cm/s Upper Pole Arcu 31.2 cm/s Right Lower Pole Arcuate Artery Lower Pole Arcu 10.2 cm/s Lower Pole Arcu 0.716 Lower Pole Arcu 2.9 cm/s Right Mid Pole Arcuate Artery Mid Pole Arcuat 14.4 cm/s Mid Pole Arcuat 0.743 Mid Pole Arcuat 3.7 cm/s Right Upper Pole Arcuate Artery Upper Pole Arcu 34.7 cm/s Upper Pole Arcu 0.767 Upper Pole Arcu 8.1 cm/s Signed 06/24/2020 04:54 PM Tavo Fraser M.D. us Thaddeus Dhillon APRN, CAFE AIDE-C US VASC Final Result * USV CAROTID DUPLEX ELEAZAR (06/24/2020 9:57 AM COMPUTER GRAPHICS ILLUSTRATOR) Anatomical Region Laterality Modality Neck Ultrasound 06/24/2020 8:27 AM COMPUTER GRAPHICS ILLUSTRATOR Narrative 06/24/2020 4:43 PM COMPUTER GRAPHICS ILLUSTRATOR ?SJS ?Vascular Report Pat.Name: ??TAYLOR RUTLEDGE ? Pat.ID: ?[id number] ? St.Date: ?? 06/24/2020 ?Refer.MD: ??THADDEUS DHILLON ? Exam Time: 8:27:00 AM ? Study Type:PVI CAROTID SCAN - BILATERAL ??Age: ??1965,55Y ? Sex: ? MALE ? Sonogrphr: Cecy Pineda, RVT Tete Javier Pat. Stat.:Outpatient ? ICD - 9: ?? R09.89 Other specified symptoms/signs CPT - 4: ?66027 Carotid Duplex ?? Reason for Study: Carotid Artery Plaque Race: ?W ? ++++++++++++++++++++++++++++++++++++ SUMMARY: ++++++++++++++++++++++++++++++++++++ Consider following recommendations that are modified from Medicare guidelines. Stenosis ? Recommendation 0-39% with plaque ?Cardiovascular Risk factor modification, may consider follow up in one year if multiple atherosclerotic risk factors present. 40-59% ? Follow up duplex in one year. 60-79% ? Follow up duplex in six months. 80-99% ?Consider other modality of imaging such as MRA/ Angiogram+/- Intervention surgery or stenting. ++++++++++++++++++++++++++++++++++++ FINDINGS: ++++++++++++++++++++++++++++++++++++ Rt Innom: The innominate artery is unable to be obtained. Rt Subcl: The proximal subclavian artery is patent. Rt ICA: ?? 0-39% stenosis with plaque noted in the internal carotid ?artery. ??Mild heterogeneous plaque noted. Rt ECA: ?? Patent with antegrade flow noted in the external carotid ?artery. Rt Vert: ??Normal antegrade vertebral flow. Lt Subcl: The proximal subclavian artery is patent. Lt ICA: ?? 0-39% stenosis without plaque noted in the internal carotid ?artery. Lt ECA: ?? Patent with antegrade flow noted in the external carotid ?artery. Lt Vert: ??Normal antegrade vertebral flow. Carotid Findings: ?Right ?Left ? Verteb.Flw ? Antegrade ?Antegrade ? ++++++++++++++++++++++++++++++++++++ MEASUREMENTS: ++++++++++++++++++++++++++++++++++++ ?DOPPLER Right CCA Prox ?? Prox CCA PSV ? 126 cm/s ?Prox CCA EDV ?19.6 cm/s Right CCA Mid ?? Mid CCA PSV ?105 cm/s ?Mid CCA EDV ? 17.3 cm/s Right CCA Dist ?? Dist CCA PSV ?80.3 cm/s ?Dist CCA EDV ?18.8 cm/s Right ICA Prox ?? Prox ICA PSV ?80.3 cm/s ?Prox ICA EDV ?22.9 cm/s Right ICA Mid ?? Mid ICA PSV ? 65.1 cm/s ?Mid ICA EDV ? 23.5 cm/s Right ICA Dist ?? Dist ICA PSV ?80.9 cm/s ?Dist ICA EDV ?22.9 cm/s Right ECA Prox ?? Prox ECA PSV ? 132 cm/s ? Right Vertebral ?? Vertebral PSV ?? 49.9 cm/s ?Vertebral EDV ?? 13.4 cm/s Right Prox SCA ?? Prox SCA PSV ? 127 cm/s ? Right ICA/CCA RATIO ?? ICA/CCA RATIO P ??1.01 ? Left CCA Prox ?? Prox CCA PSV ? 121 cm/s ?Prox CCA EDV ?24.6 cm/s Left CCA Mid ?? Mid CCA PSV ?102 cm/s ?Mid CCA EDV ? 19.9 cm/s Left CCA Dist ?? Dist CCA PSV ?83.8 cm/s ?Dist CCA EDV ?19.9 cm/s Left ICA Prox ?? Prox ICA PSV ?77.5 cm/s ?Prox ICA EDV ?17 cm/s Left ICA Mid ?? Mid ICA PSV ? 54.6 cm/s ?Mid ICA EDV ? 17.7 cm/s Left ICA Dist ?? Dist ICA PSV ?50.7 cm/s ?Dist ICA EDV ?18.9 cm/s Left ECA Prox ?? Prox ECA PSV ? 119 cm/s ? Left Vertebral ?? Vertebral PSV ?? 31.4 cm/s ?Vertebral EDV ?? 9.43 cm/s Left Prox SCA ?? Prox SCA PSV ? 138 cm/s ? Left ICA/CCA RATIO ?? ICA/CCA RATIO P 0.925 ? Signed 06/24/2020 04:43 PM Tavo Fraser M.D. Procedure Note Tavo Fraser MD - 06/24/2020 SJS Vascular Report Pat.Name: TAYLOR RUTLEDGE Pat.ID: [id number] .Date: 06/24/2020 Refer.MD: THADDEUS DHILLON Exam Time: 8:27:00 AM Study Type:PVI CAROTID SCAN - BILATERAL Age: 8 1965,55Y Sex: MALE Sonogrphr: Cecy White, RVT Tete Javier Pat. Stat.:Outpatient ICD - 9: R09.89 Other specified symptoms/signs CPT - 4: 96770 Carotid Duplex Reason for Study: Carotid Artery Plaque Race: W ++++++++++++++++++++++++++++++++++++ SUMMARY: ++++++++++++++++++++++++++++++++++++ Consider following recommendations that are modified from Medicare guidelines. Stenosis Recommendation 0-39% with plaque Cardiovascular Risk factor modification, may consider follow up in one year if multiple atherosclerotic risk factors present. 40-59% Follow up duplex in one year. 60-79% Follow up duplex in six months. 80-99% Consider other modality of imaging such as MRA/ Angiogram+/- Intervention surgery or stenting. ++++++++++++++++++++++++++++++++++++ FINDINGS: ++++++++++++++++++++++++++++++++++++ Rt Innom: The innominate artery is unable to be obtained. Rt Subcl: The proximal subclavian artery is patent. Rt ICA: 0-39% stenosis with plaque noted in the internal carotid artery. Mild heterogeneous plaque noted. Rt ECA: Patent with antegrade flow noted in the external carotid artery. Rt Vert: Normal antegrade vertebral flow. Lt Subcl: The proximal subclavian artery is patent. Lt ICA: 0-39% stenosis without plaque noted in the internal carotid artery. Lt ECA: Patent with antegrade flow noted in the external carotid artery. Lt Vert: Normal antegrade vertebral flow. Carotid Findings: Right Left Verteb.Flw Antegrade Antegrade ++++++++++++++++++++++++++++++++++++ MEASUREMENTS: ++++++++++++++++++++++++++++++++++++ DOPPLER Right CCA Prox Prox CCA PSV 126 cm/s Prox CCA EDV 19.6 cm/s Right CCA Mid Mid CCA PSV 105 cm/s Mid CCA EDV 17.3 cm/s Right CCA Dist Dist CCA PSV 80.3 cm/s Dist CCA EDV 18.8 cm/s Right ICA Prox Prox ICA PSV 80.3 cm/s Prox ICA EDV 22.9 cm/s Right ICA Mid Mid ICA PSV 65.1 cm/s Mid ICA EDV 23.5 cm/s Right ICA Dist Dist ICA PSV 80.9 cm/s Dist ICA EDV 22.9 cm/s Right ECA Prox Prox ECA PSV 132 cm/s Right Vertebral Vertebral PSV 49.9 cm/s Vertebral EDV 13.4 cm/s Right Prox SCA Prox SCA PSV 127 cm/s Right ICA/CCA RATIO ICA/CCA RATIO P 1.01 Left CCA Prox Prox CCA PSV 121 cm/s Prox CCA EDV 24.6 cm/s Left CCA Mid Mid CCA PSV 102 cm/s Mid CCA EDV 19.9 cm/s Left CCA Dist Dist CCA PSV 83.8 cm/s Dist CCA EDV 19.9 cm/s Left ICA Prox Prox ICA PSV 77.5 cm/s Prox ICA EDV 17 cm/s Left ICA Mid Mid ICA PSV 54.6 cm/s Mid ICA EDV 17.7 cm/s Left ICA Dist Dist ICA PSV 50.7 cm/s Dist ICA EDV 18.9 cm/s Left ECA Prox Prox ECA PSV 119 cm/s Left Vertebral Vertebral PSV 31.4 cm/s Vertebral EDV 9.43 cm/s Left Prox SCA Prox SCA PSV 138 cm/s Left ICA/CCA RATIO ICA/CCA RATIO P 0.925 Signed 06/24/2020 04:43 PM Tavo Fraser M.D. BELLO Velarde APRN [facility] Final Result documented in this encounter Visit Diagnoses Diagnosis AVD (aortic valve disease)- Primary Aortic valve disorders LVH (left ventricular hypertrophy) Cardiomegaly Murmur Undiagnosed cardiac murmurs Carotid artery plaque Occlusion and stenosis of carotid artery without mention of cerebral infarction Hypertension Unspecified essential hypertension Carotid artery plaque Occlusion and stenosis of carotid artery without mention of cerebral infarction Hypertension Unspecified essential hypertension documented in this encounter Care Teams Blue Line Operator Relationship Specialty Start Date End Date Jesús Wang MD [address] [place] [address] PCP - General FAMILY PRACTICE 04/06/20 11/28/22 Shiv Meehan MD [place] [employer] Worker CARDIOVASCULAR DISEASE 10/29/17 03/18/24 documented as of this encounter
--- OUTSIDE RECORDS SUMMARY | 2024-07-28 01:02 | XMS_ITS | Encounter Summary ---
Author Organization [facility] Address [address] [facility] [place] [address] [place] [address] Care Team Providers Care Security System Analyst Name Role Phone Shiv Meehan MD, Steven Richard MD Primary Care Provider Encounter Details Date Type Department Care Team (Latest Contact Info) Description 04/16/2020 Travel Social History Tobacco Use Types Packs/Day [...] Office Visit [facility] [address] [place] [address] Brandie Jensen, PICKLE CUTTER, GEAR REPAIR SUPERVISOR-C [address] [facility] [address] [place] [address] documented as of this encounter Visit Diagnoses Not on filedocumented in this encounter Care Teams Security System Analyst Relationship Specialty Start Date End Date Jesús Wang MD [address] [place] [address] PCP - General FAMILY PRACTICE 04/06/20 11/28/22 Shiv Meehan MD [place] [employer] Control Operator Forming CARDIOVASCULAR DISEASE 10/29/17 03/18/24 documented as of this encounter
--- OUTSIDE RECORDS SUMMARY | 2024-07-28 01:02 | XMS_ITS | Encounter Summary ---
Author Organization [facility] Address [address] [facility] [place] [address] [place] [address] Care Team Providers Care Foil Cutter Name Role Phone Terri Ko MD Primary Care Provider Shiv Bains MD Unavailable Unavailabl e Reason for Visit * Reason Onset Date Comments Appointment Request 02/12/2020 Encounter Details Date Type Department Care Team (Late st Contact Info) Description 02/12/2020 Telephone [employer] [facility] [address] [place] [address] Shiv Meehan MD Appointment Request [...] Progress Notes * Opal K Florin - 02/12/2020 3:38 PM CDT Called pt to schedule this f/u w/ Dr. Meehan. I informed pt that Dr. Meehan will no longer be going to [place] after February. I offered last available Amelie apt; 03/04/20 @ 10:30 AM. Pt was agreeable to this. Confirmed pt's demos and informed him of COVID 19 precautions. Pt has had no recent hospitalizations, labs or tests. Patient verbalized understanding and had no further questions. * Lynsey Mayo LPN - 02/12/2020 2:55 PM CDT Patient called in to make an appointment. He wanted to be seen in [place]. That schedule isn't open yet for Dr. Meehan but when it is patient can be given an appointment. Patient prefers appointment in the latter afternoon as he would like to work part of a day. documented in this encounter Plan of Treatment Upcoming Encounters Date Type Department Care Team ([facility] st Contact Info) Description 12/11/2024 2:00 PM CDT Office Visit [facility] el[facility] [address] [place] [phone] Brandie Jensen APRN, SPOUTING INSTALLER-C [address] [facility] [address] [place] [address] documented as of this encounter Visit Diagnoses Not on filedocumented in this encounter Care Teams Foil Cutter Relationship Specialty Start Date End Date Terri Ko MD PCP - General SURGERY 10/29/17 03/29/20 Shiv Meehan MD [place] Combine Driver CARDIOVASCULAR DISEASE 10/29/17 03/18/24 documented as of this encounter
--- OUTSIDE RECORDS SUMMARY | 2024-07-28 01:02 | XMS_ITS | Encounter Summary ---
Author Organization [facility] Address [address] [facility] [place] [address] [place] [address] Care Team Providers Care Tissue Coordinator Name Role Phone Terri Ko MD Primary Care Provider Shiv Bains MD Unavailable Unavailabl e Reason for Visit * Reason Onset Date Comments Schedule Procedure 11/16/2017 Encounter Details Date Type Department Care Team (Late st Contact Info) Description 11/16/2017 Telephone [facility] [address] [place] [address] Shiv Meehan MD Schedule Procedure Social History Tobacco Use Types Packs/Day Years [...] as of this encounter Progress Notes * Karla Parks RN - 11/16/2017 2:28 PM CDT Pt seen yesterday in [facility], RCW recommended [facility]- Risks & benefits discussed. Questions and concerns addressed. Instructions given and letter sent, he verbalizes understanding. Scheduled 11/23 at 1300 documented in this encounter Plan of Treatment Upcoming Encounters Date Type Department Care Team (Late st Contact Info) Description 12/11/2024 2:00 PM CDT Office Visit [facility] [address] [place] [phone] Brandie Jensen, SHANNAN, CUFF SETTER OVERLOCK-C [address] [facility] [address] [place] [phone] documented as of this encounter Visit Diagnoses Not on filedocumented in this encounter Care Teams Tissue Coordinator Relationship Specialty Start Date End Date Terri Ko MD PCP - General SURGERY 10/29/17 03/29/20 Shiv Meehan MD [place] [employer] Maintenance Technician CARDIOVASCULAR DISEASE 10/29/17 03/18/24 documented as of this encounter
--- OUTSIDE RECORDS SUMMARY | 2024-07-28 01:02 | XMS_ITS | Encounter Summary ---
Author Organization [facility] Address [address] [facility] [place] [address] [place] [address] Care Team Providers Care Charge Weigher Name Role Phone Shiv Meehan MD Unavailable [facility] Jes[facility]s Wheat MD Primary Care Provider Brandie Jensen APRN, CAN DOFFER-C Unavailable [phone] Noé Crowley MD Unavailable [phone] Reason for Visit * Reason Comments Consult Preop evaluation radha or to knee surgery Encounter Details Date Type Department Care Team ([facility] st Contact Info) Description 02/08/2021 3:30 PM CDT Office Visit [facility] [address] [place] [address] Brandie Jensen APRN, CAN DOFFER-C [address] [facility] [address] [place] [phone] Consult (Preop evaluation prior to knee surgery) Social History Tobacco Use Types Packs/Day [...] PM CDT documented as of this encounter Last Filed Vital Signs Vital Sign Reading Time Taken Comments Blood Pressure 142/74 02/08/2021 3:29 PM CDT Pulse 59 02/08/2021 3:29 PM CDT EKG Temperature - - Respiratory Rate 16 02/08/2021 3:29 PM CDT Oxygen Saturation - - Inhaled Oxygen Concentration - - Weight 134.4 kg (296 lb 6.4 oz) 02/08/2021 3:29 PM CDT Height 180.3 cm (5' 11 ) 02/08/2021 3:29 PM CDT Body Mass Index 41.34 02/08/2021 3:29 PM CDT documented in this encounter Progress Notes * Brandie Jensen APRN, NP-C - 02/08/2021 3:30 PM CDT FROM: Brandie Jensen APRN, NP-C, collaborating physician Shiv Meehan III, M.D. RE: Jose Rutledge : 1965 Reason for Visit: Consult (Preop evaluation prior to knee surgery) History of Present Illness: Mr. Rutledge is a pleasant 55-year-old male seen in the cardiology clinic today for a preoperative cardiac risk assessment prior to a left knee arthroscopy by Dr. Crowley at [facility] on 02/14/2021. He has a history of mild coronary artery disease, aortic stenosis, LVH, hypertension, hyperlipidemia, and diabetes. He reports that he is doing reasonably well from a cardiac standpoint. He denies any anginal chest pain, shortness of breath, or dyspnea upon exertion. 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 He denies any claudication. He denies any overt symptoms of congestive heart failure such as paroxysmal nocturnal dyspnea or orthopnea. He does notice occasional edema in his left leg since his knee injury. He has no palpitations, lightheadedness, or syncope. He denies signs and symptoms of CVA or TIA. He seems to be tolerating his present medications well without reported side effects. Evaluation during the clinic visit included an EKG which confirmed the presence of sinus rhythm at a rate of 59 beats per minute. Recommendations/Plan: Mr. Rutledge's cardiac status appears clinically stable at the present time without consistent ongoing anginal chest pain, overt symptoms of congestive heart failure, or clinical evidence of hemodynamically significant arrhythmias. His last echocardiogram on 02/01/2021 revealed an LVEF of 63% with mild to moderate LVH, mild to moderate aortic stenosis with a peak gradient of 30 mmHg and mean gradient of 18 mmHg. His last cardiac catheterization in November 2017 demonstrated a normal LAD, mild luminary irregularities of the RCA, and mild disease of the circumflex. He reports being able to perform at least 4 METs of activity without exertional symptoms. His planned knee arthroscopy is an intermediate risk procedure from a cardiovascular standpoint. I believe that his cardiovascular risk of the procedure is moderately increased in light of his known coronary artery disease, hypertension, and diabetes. This moderately increased cardiovascular risk is felt to be acceptable in light of the overall clinical situation. At the time of surgery, I would recommend the followin. Perioperative telemetry monitoring. 2. He may discontinue his aspirin 5 to 7 days prior to the procedure if necessary. Please resume postoperatively. 3. Perioperative maintenance of beta blockade and statin therapy. 4. Maintenance of a serum hemoglobin of 8.0 or greater. From a [facility] standpoint, I have recommended to Mr. Rutledge: 1. CAD. He denies symptoms consistent with myocardial ischemia. We will continue current medical therapy. 2. Aortic Stenosis, LVH. His echocardiogram demonstrated stable gradients. We will plan on repeating an echocardiogram in two years. 3. Hypertension. His blood pressure is mildly elevated in the office today. He does admit his back pain today. He tells me that his blood pressure was 122/64 mmHg at his primary care office last week. After his knee surgery, he should continue to monitor his blood pressure, and notify our office ifit is persistently greater than 130/80 mmHg. 4. Hyperlipidemia. He is currently treated with rosuvastatin and denies any reported side effects. An LDL less than 70 is recommended. I have asked him to return to the cardiology clinic for routine followup in one year. I have encouraged him to contact me in the meantime should he have any questions or problems. Medications: Current Outpatient Medications: ??? amlodipine 10 MG tablet, Take 10 mg by mouth daily. , Disp: , Rfl: ??? aspirin EC 81 MG EC tablet, Take 81 mg by mouth daily., Disp: , Rfl: ??? CARVEDILOL 25 MG tablet, TAKE ONE TABLET BY MOUTH TWICE A DAY, Disp: 180 tablet, Rfl: 1 ??? clobetasol 0.05 % ointment, , Disp: , Rfl: ??? cloNIDine 0.1 MG tablet, Take 0.1 mg by mouth 2 (two) times daily. , Disp: , Rfl: ??? cyclobenzaprine 10 MG tablet, Take 10 mg by mouth 2 (two) times a day. , Disp: , Rfl: ??? diclofenac sodium 75 MG tablet, Take 75 mg by mouth 2 (two) times daily. , Disp: , Rfl: ??? gabapentin 300 MG capsule, Take 300 mg by mouth 3 (three) times daily., Disp: , Rfl: ??? glipiZIDE 10 MG tablet, Take 10 mg by mouth every morning before breakfast. , Disp: , Rfl: ??? ketoconazole 2 % cream, , Disp: , Rfl: ??? Losartan Potassium-HCTZ 100-12.5 MG Tab, Take 1 tablet by mouth daily. , Disp: , Rfl: ??? metFORMIN 1000 MG tablet, Take 1,000 mg by mouth 2 (two) times daily with meals. , Disp: , Rfl: ??? pantoprazole EC 40 MG tablet, Take 40 mg by mouth daily., Disp: , Rfl: ??? rosuvastatin 20 MG tablet, Take 20 mg by mouth daily., Disp: , Rfl: ??? zolpidem 12.5 MG CR tablet, Take 12.5 mg by mouth nightly as needed for Sleep., Disp: , Rfl: Allergies Allergen Reactions ??? [...] and new or significant memory loss. Vitals: 02/08/21 1529 BP: (!) 142/74 Patient Position: Sitting BP Location: Left arm Pulse: 59 Weight: 134.4 kg (296 lb 6.4 oz) Height: 5' 11 (1.803 m) Body mass index is 41.34 kg/m??. Cardiac Exam Rate/Rhythm: Normal rate and [...] is present with a grade of 2/6. Physical Exam Constitutional: No distress. Healthy Appearance. [...] ROM. Neurological: Alert. Oriented x 3. Comments: Trace BLE edema. Diagnoses/Impression: 1. Preoperative cardiovascular examination 2. Mild coronary artery disease 3. AVD (aortic valve disease) 4. LVH (left ventricular hypertrophy) 5. Essential hypertension 6. Mixed hyperlipidemia Referring Provider: No ref. provider found PCP: JESÚS WHEAT MD documented in this encounter Plan of Treatment Upcoming Encounters Date Type Department Care Team (Late st Contact Info) Description 12/11/2024 2:00 PM CDT [facility] [address] [place] [phone] Brandie Jensen APRN, CAN DOFFER-C [address] [phone] documented as of this encounter Visit Diagnoses Diagnosis Preoperative cardiovascular examination- Primary Pre-operative cardiovascular examination Mild coronary artery disease AVD (aortic valve disease) Aortic valve disorders LVH (left ventricular hypertrophy) Cardiomegaly Essential hypertension Unspecified essential hypertension Mixed hyperlipidemia documented in this encounter Care Teams Charge Weigher Relationship Specialty Start Date End Date Jesús Wheat MD [address] [place] [address] PCP - General FAMILY PRACTICE 04/06/20 11/28/22 Shiv Meehan MD [place] Windows Server Administrator CARDIOVASCULAR DISEASE 10/29/17 03/18/24 Brandie Jensen APRN, CAN DOFFER-C [address] [phone] NURSE PRACTITIONER 02/08/21 Noé Crowley MD [address] [facility] [address] [facility] [address] [place] [address] Surgeon ORTHOPAEDIC SURGERY 02/08/21 documented as of this encounter
--- OUTSIDE RECORDS SUMMARY | 2024-07-28 01:02 | XMS_ITS | Encounter Summary ---
Author Organization [facility] Address [address] [facility] [address] [place] [address] Care Team Providers Care Wildlife Refuge Specialist Name Role Phone Christy Meehan MD [facility] [place] Jesús Bennett MD Primary Care Provider Encounter Details Date Type Department Care Team (Late st Contact Info) Description 04/16/2020 Orders Only [facility] [address] [place] [address] Christy Meehan MD Social History Tobacco Use [...] 12/11/2024 2:00 PM CDT Office Visit [facility] [address] [place] [address] Brandie Jensen, SHANNAN, CANAL BOAT OPERATOR-C [address] [facility] [address] [place] [address] documented as of this encounter Procedures Procedure Name Priority Date/Time Associated Diagnosis Comments ELECTROCARDIOGRAM (NON MIDMARK ACQUIRED) Routine 04/16/2020 3:20 PM CDT Essential hypertension documented in this encounter Results * ELECTROCARDIOGRAM (NON MIDMARK ACQUIRED) (04/16/2020 3:20 PM CDT) 04/16/2020 3:20 PM CDT Narrative [facility] - 04/17/2020 12:02 PM CDT ? [facility] ?[address], [place] ??[address] ? Test Date: ?2020-04-16 Pat Name: ? TAYLOR RUTLEDGE ?Department: ? Room: ? Gender: ? Male ? Clinical Biochemist: ?? : ?1965 ? Requested By: CHRISTY MEEHAN Order Number: [id number] ?Reading MD: ?? Christy Meehan ? Measurements Intervals ?[place] ? Rate: ? 76 ? P: ?47 WA: ? 160 ?QRS: ?9 QRSD: ? 108 ?T: ?32 QT: ? 379 ? QTc: ?426 ? Interpretive Statements SINUS RHYTHM NONSPECIFIC ST & T-WAVE ABNORMALITY Procedure Note Christy Meehan MD - 04/17/2020 [facility] [place] [address] [place] [address] Test Date: 2020-04-16 Pat Name: TAYLOR RUTLEDGE Department: Room: Gender: Male Clinical Biochemist: : 1965 Requested By: CHRISTY MEEHAN Order Number: [id number] Ranjan MD: Christy Meehan Measurements Intervals [place] Rate: 76 P: 47 WA: 160 QRS: 9 QRSD: 108 T: 32 QT: 379 QTc: 426 Interpretive Statements SINUS RHYTHM NONSPECIFIC ST & T-WAVE ABNORMALITY us Christy Meehan MD PROCEDURES-ORDERABLE NO BEATA RGE Final Result [facility] documented in this encounter Visit Diagnoses Diagnosis Essential hypertension- Primary Unspecified essential hypertension documented in this encounter Care Teams Wildlife Refuge Specialist Relationship Specialty Start Date End Date Jesús Wang MD [address] [place] [address] PCP - General FAMILY PRACTICE 04/06/20 11/28/22 Christy Meehan MD [place] Machine Buffer CARDIOVASCULAR DISEASE 10/29/17 03/18/24 documented as of this encounter
--- OUTSIDE RECORDS SUMMARY | 2024-07-28 01:02 | XMS_ITS | Encounter Summary ---
Author Organization [facility] Address [address] [facility] [address] [place] [address] Care Team Providers Care Canopy Inspector Name Role Phone Terri Ko MD Primary Care Provider Christy Bains MD Unavailable Unavailabl e Reason for Referral * Imaging (Routine) - Closed Specialty Diagnoses / Procedures Referred By Contac t Referred To Contact CARDIOLOGY Diagnoses Angina at rest (CMS/HCC) Abnormal stress test Dyspnea Procedures [facility] [place] [id number] Christy Meehan MD [facility] [address] [place] [address] Phone: tel: fax: Referral ID Status Reason Start Date Expiration Date Visits Re quested Visits Authorized [id number] Closed 11/23/2017 05/22/2018 1 1 Reason for Visit * Imaging (Routine) - Closed Specialty Diagnoses / Procedures Referred By Contac t Referred To Contact CARDIOLOGY Diagnoses Angina at rest (CMS/HCC) Abnormal stress test Dyspnea Procedures [facility] [place] [address] Christy Meehan MD [facility] [address] [place] [address] Phone: tel: fax: Referral ID Status Reason Start Date Expiration Date Visits Re quested Visits Authorized [id number] Closed 11/23/2017 05/22/2018 1 1 Encounter Details Date Type Department Care Team (Latest Contact Info) Description 11/23/2017 10:44 AM CDT - 11/23/2017 4:51 PM CDT Hospital Encounter [facility] Improvement Analyst Pre/Post [address] [place] [address] Christy Meehan MD Discharge Disposition: Home or Self Care (Routine [...] Sign Reading Time Taken Comments Blood Pressure 155/99 11/23/2017 11:33 AM CDT Pulse 70 11/23/2017 11:30 AM CDT Temperature 36.8 ??C (98.2 ??F) 11/23/2017 1 1:30 AM CDT Respiratory Rate 20 11/23/2017 11:3 0 AM CDT Oxygen Saturation 98% 11/23/2017 11: 30 AM CDT Inhaled Oxygen Concentration - - Weight 135.4 kg (298 lb 8.1 oz) 018 11:30 AM CDT Height 182 cm (5' 11.65 ) 11/23/2017 11 :30 AM CDT Body Mass Index 40.88 11/23/2017 11:30 AM CDT documented in this encounter Discharge Summaries * Christy Meehan MD - 11/23/2017 4:51 PM CDT Physician Discharge Summary Patient ID: Taylor Rutledge [id number] 52-year-old 1965 Admit date: 11/23/2017 Expected Discharge Date: 11/23/2017 Admitting Physician: Christy Meehan MD Discharge Physician: Same Admission Diagnoses: Abnormal RNST Discharge Diagnoses: Minimal CAD Admission Condition: good Discharged Condition: good Indication for Admission: Abnormal RNST Hospital Course: Cardiac catheterization performed due to abnormal RNST and revealed minimal CAD. Pt will be treated medically with CRF modification. Will proceed with planned back surgery. Consults: none Code Status: Full Code Procedures: Procedures CBC, AUTO, NO DIFF Routine BASIC METABOLIC PANEL Routine ECG 12-LEAD Routine [facility] POSS Routine Referrals: No orders of the defined types were placed in this encounter. Treatments: Medical Discharge Exam: Unchanged Disposition: Home or Self Care (Routine Discharge) Patient Instructions: Discharge Medication List as of 11/23/2017 3:12 PM CONTINUE these medications which have NOT CHANGED Details amlodipine 10 MG tablet Starting 11/12/2017, Until Discontinued, Historical Med aspirin EC 81 MG EC tablet Take 81 mg by mouth daily., Until Discontinued, Historical Med cloNIDine 0.1 MG tablet Starting 11/12/2017, Until Discontinued, Historical Med cyclobenzaprine 10 MG tablet Take 10 mg by mouth 2 (two) times daily as needed for Muscle Spasms., Until Discontinued, Historical Med diclofenac sodium 75 MG tablet Starting 11/12/2017, Until Discontinued, Historical Med gabapentin 300 MG capsule Take 300 mg by mouth 3 (three) times daily., Until Discontinued, Historical Med glipiZIDE 10 MG tablet Starting 11/12/2017, Until Discontinued, Historical Med Losartan Potassium-HCTZ 100-12.5 MG Tab Starting 11/12/2017, Until Discontinued, Historical Med metFORMIN 1000 MG tablet Starting 11/12/2017, Until Discontinued, Historical Med metoprolol tartrate 50 MG tablet Take 50 mg by mouth 2 (two) times daily., Until Discontinued, Historical Med rosuvastatin 20 MG tablet Take 20 mg by mouth daily., Until Discontinued, Historical Med zolpidem 12.5 MG CR tablet Take 12.5 mg by mouth nightly as needed for Sleep., Until Discontinued, Historical Med Activity: As directed. Diet: Cardiac diet Follow-up with PCP on regular schedule. Will proceed with planned back surgery as previously planned. Return to Cardiology clinic in 1 year. Signed: CHRISTY MEEHAN MD 11/23/2017 6:14 PM documented in this encounter Discharge Instructions * Discharge Instructions* Millie Naik RN - 11/23/2017 3:09 PM CDT Post Catheterization Discharge - Radial Approach 1. Do not bend wrist for 48 hours. Avoid using your wrist when standing out of a chair. 2. Drink 3-4 glasses of water over the next 8 hours and resume routine diet. 3. A medication list and instructions have been provided separately. 4. Do not drive for 48 hours after procedure. 5. No lifting more than 5 pounds and no exercise (including golf and tennis) for 48 hours. 6 Do not operate equipment, such as an ATV, manager review, chainsaw, or motorcycle for 48 hours. 7. Notify your drugless physician of swelling or drainage at the site, or numbness, tingling, coldness, or cramping in hand/arm during rest or activity. Soreness is normal. Take Tylenol for pain. 8. Notify your drugless physician or your primary care physician if you develop a fever greater than 101 degrees. 9. If the site begins to bleed, sit down and hold firm pressure directly to the site. If bleeding stops, continue to sit, keeping wrist straight and contact physician as soon as possible. If bleedingdoes not stop, call 911 immediately. 10. Remove dressing 24 hours after the procedure. Do not scrub the site or apply direct water to area. No dishes in the sink. You may shower - pat the site dry, but do not rub! 11. If you experience any problems, please call your primary care physician or your drugless physician [phone]. You may restart your metformin on 11/25/17 documented in this encounter Medications at Time [...] Take 81 mg by mouth daily. 11/29/2022 cloNIDine 0.1 MG tablet Take 1 tablet [...] mouth every morning before breakfast. 11/12/2017 12/08/2021 metoprolol tartrate 50 MG tablet Take 50 mg by mouth 2 (two) times daily. 04/16/2020 rosuvastatin 20 MG tablet Take 20 mg by mouth daily. 12/08/2021 zolpidem 12.5 MG CR tablet Take 12.5 mg by mouth nightly as needed for Sleep. 12/08/2021 documented as of this encounter OR Notes * Brief Op Note - Christy Meehan MD - 11/23/2017 2:51 PM CDT General Procedure Op Note Procedure Note Taylor Rutledge 11/23/2017 Procedure: Cardiac catheterization Pre-Op Diagnosis: Abnormal RNST Post-Op Diagnosis: Same Findings: Minimal CAD Specimen(s) Removed: None Anesthesia: Local and Procedural Surgeon: Zoran Embossograph Operator: None Estimated Blood Loss: Minimal CHRISTY MEEHAN MD Date: 11/23/2017 Time: 2:51 PM documented in this encounter Plan of Treatment Upcoming Encounters Date Type Department Care Team (Late st Contact Info) Description 12/11/2024 2:00 PM CDT Office Visit [facility] eld [address] [place] [address] Brandie Jensen APRN, METAL SPRAYER-C [address] [facility] [address] [place] [address] documented as of this encounter Procedures Procedure Name Priority Date/Time Associated Diagnosis Comments ECG 12-LEAD Routine 11/23/2017 4:44 PM CDT Dyspnea [facility] POSS Routine 11/23/2017 2:47 PM CDT Angina at rest Abnormal stress test Dyspnea POCT GLUCOSE - WHITE DOCKED DEVICE Routine 11/23/2017 11:15 AM CDT BASIC METABOLIC PANEL Routine 11/23/2017 11:10 AM CDT Dyspnea CBC, AUTO, NO DIFF Routine 11/23/2017 11 :10 AM CDT Dyspnea documented in this encounter Results * ECG 12 lead (11/23/2017 4:44 PM CDT) 11/23/2017 4:44 PM CDT Narrative [facility] - 11/23/2017 4:44 PM CDT ? [facility] ? [address], [place] ??[address] ? Test Date: ?2017-11-23 Pat Name: ? TAYLOR RUTLEDGE ?Department: ?? 1 ? Room: ? CLPP09 Gender: ? Male ? Repair Specialist: ?? MS : ?1965 ? Requested By: CHRISTY MEEHAN Order Number: [id number] ? Reading : ?? Taylor Quesada ? Measurements Intervals ?[place] ? Rate: ? 65 ? P: ?28 MO: ? 168 ?QRS: ?10 QRSD: ? 104 ?T: ?-65 QT: ? 399 ? QTc: ?415 ? Interpretive Statements SINUS RHYTHM NONSPECIFIC T-WAVE ABNORMALITY Procedure Note Taylor Quesada MD - 11/23/[address] [address] Test Date: 2017-11-23 Pat Name: TAYLOR RUTLEDGE Department: 1 Room: [facility] Gender: Male Repair Specialist: MS : 1965 Requested By: CHRISTY MEEHAN Order Number: [id number] Ranjan MD: Taylor Quesada Measurements Intervals [place] Rate: 65 P: 28 MO: 168 QRS: 10 QRSD: 104 T: -65 QT: 399 QTc: 415 Interpretive Statements SINUS RHYTHM NONSPECIFIC T-WAVE ABNORMALITY us Christy Meehan MD ECG ORDERABLES Final Resul t [facility] * XA [facility] POSS (11/23/2017 2:47 PM CDT) Anatomical Region Laterality Modality Cardiac Quality Improvement Analyst 11/23/2017 1:00 PM CDT us Christy Meehan MD MOTOR BUILDER ASSEMBLER Final Resul t * (ABNORMAL) POCT glucose (11/23/2017 11:15 AM CDT) GLUCOSE POC 115(H) 70 - 109 11/23/2017 11:29 AM CDT [facility] INTERFACE 11/23/2017 11:1 5 AM CDT us Christy Meehan MD POCT ORDERABLES - DEVICE Fi nal Result Performing Organization Address City/[facility]/ZIP Co de Phone Number [facility] INTERFACE US * (ABNORMAL) BASIC METABOLIC PANEL (11/23/2017 11:10 AM CDT) SODIUM S/P/B 138 135 - 147 MMOL/L 11/23/2017 12:08 PM CDT [facility] POTASSIUM S/P/B 4.2 3.5 - 5.0 MMOL/L 11/23/2017 12:08 PM CDT [facility] CHLORIDE S/P/B 101 98 - 107 MMOL/L 11/23/2017 12:08 PM CDT [facility] CO2 26.4 22 - 29 MMOL/L 11/23/2017 12:08 PM CDT [facility] GLUCOSE 136(H) 70 - 109 MG/DL 11/23/2017 12:08 PM CDT [facility] BUN 13 8 - 26 MG/DL 11/23/2017 12:08 PM CDT [facility] CREATININE S/P/B 0.81 0.70 - 1.30 MG/DL 11/23/2017 12:08 PM CDT [facility] CALCIUM S/P/B 9.6 8.4 - 10.2 MG/DL 11/23/2017 12:08 PM CDT [facility] EGFR NON-AFR. AMER. 100 >60 ML/MIN/1.7 3 M2 11/23/2017 12:08 PM CDT [facility] EGFR AFR. AMER. 121 >60 ML/MIN/1.7 3 M2 11/23/2017 12:08 PM CDT [facility] ANION GAP 10.6 MMOL/L 11/23/2017 12:08 PM CDT [facility] OSMOLALITY (CALC) 278 MOSM/KG 11/23/2017 12:08 PM CDT [facility] 11/23/2017 11:1 0 AM CDT us Christy Meehan MD LABORATORY Final Resul t [facility] [address] [place] [id number], [id number] * (ABNORMAL) CBC, AUTO, NO DIFF (11/23/2017 11:10 AM CDT) WBC 6.7 4.0 - 10.8 x10'3/uL 11/23/2017 11:43 AM CDT [facility] RBC 4.53 4.50 - 6.10 x10'6/uL 11/23/2017 11:43 AM CDT [facility] HGB 14.7 13.0 - 18.0 G/DL 11/23/2017 11:43 AM CDT [facility] HCT 42.0 37.0 - 52.0 % 11/23/2017 11:43 AM CDT [facility] MCV 92.7 78.0 - 100.0 FL 11/23/2017 11:43 AM CDT [facility] MCH 32.5(H) 27.0 - 31.0 PG 11/23/2017 11:43 AM CDT [facility] MCHC 35.0 33.0 - 36.0 G/DL 11/23/2017 11:43 AM CDT [facility] RDW 11.9 11.5 - 14.5 % 11/23/2017 11:43 AM CDT [facility] PLT 194 150 - 350 x10'3/uL 11/23/2017 11:43 AM CDT [facility] MPV 9.5 7.4 - 10.4 FL 11/23/2017 11:43 AM CDT [facility] 11/23/2017 11:1 0 AM CDT us Christy Meehan MD LABORATORY Final Resul t [facility] [address] [place] [address], [id number] documented in this encounter Visit Diagnoses Diagnosis Angina at rest (CMS/HCC) Other and unspecified angina pectoris Abnormal stress test Other nonspecific abnormal cardiovascular system function study Dyspnea Other dyspnea and respiratory abnormality documented in this encounter Administered Medications Inactive Administered Medications - up to 3 most recent administrations Medication Order MAR Action Action Date Dose Rate Site acetaminophen (TYLENOL) tablet 650 mg 650 mg, Oral, Every 4 hours PRN, Mild pain (Scale 1 - 3), Starting on Sun11/23/17 at 1103, Until Sun11/23/17 at 1856, Maximum dose of acetaminophen is 4000 mg from all sources in 24 hours., Pre-Op nitroglycerin (NITROSTAT) SL tablet 0.4 mg 0.4 mg, Sublingual, Every 5 min PRN, Chest Pain, 3 doses, Starting on Sun11/23/17 at 1103, Until Sun11/23/17 at 1856, Notify provider if pain not relieved by one tablet. Hold for SBP less than 90 mmHg., Pre-Op ondansetron (ZOFRAN) injection 4 mg 4 mg, Intravenous, Every 4 hours PRN, Nausea, Vomiting, Starting on Sun11/23/17 at 1103, Until Sun11/23/17 at 1856, Pre-Op documented in this encounter Active and Recently Administered Medications Times are shown in CDT. Continuous Medication Order 11/21/2017 11/22/2017 11/23/2017 sodium chloride 0.9% infusion at 125 mL/hr, Intravenous, Continuous, Starting on Sun11/23/17 at 1530, Until Sun11/23/17 at 1856, Post-Op 1530 (Canceled Entry - Provider: Automatic Discharge Provider - Comment: Automatically canceled at discontinue of medication order) PRN Medication Order 11/21/2017 11/22/2017 11/23/2017 acetaminophen (TYLENOL) tablet 325 mg 325 mg, Oral, Every 4 hours PRN, Mild pain (Scale 1 - 3), Starting on Sun11/23/17 at 1508, Until Sun11/23/17 at 1856, Maximum dose of acetaminophen is 4000 mg from all sources in 24 hours., Post-Op acetaminophen (TYLENOL) tablet 650 mg 650 mg, Oral, Every 4 hours PRN, Mild pain (Scale 1 - 3), Starting on Sun11/23/17 at 1103, Until Sun11/23/17 at 1856, Maximum dose of acetaminophen is 4000 mg from all sources in 24 hours., Pre-Op atropine injection 0.5 mg 0.5 mg, Intravenous, Once as needed, Other, for heart rate less than 50 bpm and / or SBP less than 90 mmHg, 1 dose, Starting on Sun11/23/17 at 1508, Until Sun11/23/17 at 1856, Post-Op fentaNYL (SUBLIMAZE) injection 25 mcg 25 mcg, Intravenous, Every 30 min PRN, Severe pain (Scale 8 - 10), Starting on Sun11/23/17 at 1508, Until Sun11/23/17 at 1856, If intravenous (IV) route has been ordered, give over 1-2 minutes., Post-Op hydrocodone-acetaminophen (NORCO) 10-325 MG tablet 1 tablet 1 tablet, Oral, Every 6 hours PRN, Moderate pain (Scale 4 - 7), Starting on Sun11/23/17 at 1508, Until Sun11/23/17 at 1856, Maximum dose of acetaminophen is 4000 mg from all sources in 24 hours., Post-Op lorazepam (ATIVAN) tablet 0.5 mg 0.5 mg, Oral, Every 6 hours PRN, Anxiety, Starting on Sun11/23/17 at 1508, Until Sun11/23/17 at 1856, Post-Op lfztkhwcf-bcxzdmlb-zrbgwykptgq (MAALOX, MYLANTA EXTRA STRENGTH) [id number] mg/30mL suspension 10 mL, Oral, Every 4 hours PRN, Indigestion, Heartburn, Starting on Sun11/23/17 at 1508, Until Sun11/23/17 at 1856, Shake Well, Post-Op nitroglycerin (NITROSTAT) SL tablet 0.4 mg 0.4 mg, Sublingual, Every 5 min PRN, Chest Pain, 3 doses, Starting on Sun11/23/17 at 1103, Until Sun11/23/17 at 1856, Notify provider if pain not relieved by one tablet. Hold for SBP less than 90 mmHg., Pre-Op nitroglycerin (NITROSTAT) SL tablet 0.4 mg 0.4 mg, Sublingual, Every 5 min PRN, Chest Pain, 3 doses, Starting on Sun11/23/17 at 1508, Until Sun11/23/17 at 185, Notify MD if not relieved by one tablet. HOLD for SBP less than 90., Post-Op ondansetron (ZOFRAN) injection 4 mg 4 mg, Intravenous, Every 4 hours PRN, Nausea, Vomiting, Starting on Sun11/23/17 at 1103, Until Sun11/23/17 at 1856, Pre-Op ondansetron (ZOFRAN) injection 4 mg 4 mg, Intravenous, Every 4 hours PRN, Nausea, Vomiting, Starting on Sun11/23/17 at 1508, Until Sun11/23/17 at 1856, Post-Op senna-docusate (SENOKOT-S) 8.6-50 MG tablet 2 tablet 2 tablet, Oral, Nightly PRN, Constipation, Starting on Sun11/23/17 at 1508, Until Sun11/23/17 at 1856, Post-Op documented in this encounter Care Teams Canopy Inspector Relationship Specialty Start Date End Date Terri Ko MD PCP - General SURGERY 10/29/17 03/29/20 Christy Meehan MD [facility] Director CARDIOVASCULAR DISEASE 10/29/17 03/18/24 documented as of this encounter
--- OUTSIDE RECORDS SUMMARY | 2024-07-28 01:02 | XMS_ITS | Encounter Summary ---
Author Organization [facility] Address [address] [facility] [place] [address] [place] [address] Care Team Providers Care Transfer Car Operator Drier Name Role Phone Terri Ko MD Primary Care Provider Shiv Bains MD Unavailable Unavailabl e Reason for Visit * Reason Onset Date Comments Appointment Request 12/24/2019 Attempted to schedule appt off recall list Encounter Details Date Type Department Care Team (Late st Contact Info) Description [facility]/24[facility]2019 [facility] [address] [place] [address] Shiv Meehan MD Appointment Request (Attempted to schedule appt off recall list) Social History Tobacco Use Types Packs/Day Years [...] as of this encounter Progress Notes * Millie Erickson RN - 12/24/2019 9:40 AM CDT Spoke with for pt to make appt with Dr. Meehan from recall list as pt unavailable at this time. will have pt call back to make appt. documented in this encounter Plan of Treatment Upcoming Encounters Date Type Department Care Team (Late st Contact Info) Description 12/11/2024 2:00 PM CDT Office Visit [facility] eld [address] [place] [phone] Brandie Jensen APRN, LEASING MANAGER-C [address] [facility] [address] [place] [phone] documented as of this encounter Visit Diagnoses Not on filedocumented in this encounter Care Teams Transfer Car Operator Drier Relationship Specialty Start Date End Date Terri Ko MD PCP - General SURGERY 10/29/17 03/29/20 Shiv Meehan MD [place] [employer] Specialist CARDIOVASCULAR DISEASE 10/29/17 03/18/24 documented as of this encounter
--- OUTSIDE RECORDS SUMMARY | 2024-07-28 01:02 | XMS_ITS | Encounter Summary ---
Author Organization [facility] Address [address] [place] [address] [place] [address] Care Team Providers Care Yarding And Folding Machine Operator Name Role Phone Shiv Meehan MD, Steven Richard MD Primary Care Provider Reason for Visit * Reason Comments Follow Up Coronary Artery Disease Encounter Details Date Type Department Care Team (Latest Contact Info) Description 04/16/2020 3:30 PM CDT Office Visit [facility] [address] [place] [address] Brandie Jensen, SHANNAN, BINDER STRIPPER MACHINE-C [address] [facility] [address] [place] [address] Follow Up; Coronary Artery Disease Social History [...] Sign Reading Time Taken Comments Blood Pressure 144/80 04/16/2020 3:46 PM CDT Pulse 76 04/16/2020 3:25 PM CDT Temperature - - Respiratory Rate 16 04/16/2020 3:25 PM CDT Oxygen Saturation - - Inhaled Oxygen Concentration - - Weight 134.2 kg (295 lb 12.8 oz) 04/16/2020 3:25 PM CDT Height 180.3 cm (5' 11 ) 04/16/2020 3:25 PM CDT Body Mass Index 41.26 04/16/2020 3:25 PM CDT documented in this encounter Patient Instructions * Patient Instructions* Brandie Jensen APRN, NP-C - 04/16/2020 3:30 PM CDT 1. Stop metoprolol. 2. Start carvedilol 12.5 mg twice a day. 3. Monitor blood pressure daily, and call results into the office in 1-2 weeks. 4. Sleep study with Dr. Wheat. 5. Let me know if you meet your deductible. Then we can order carotid ultrasound on your neck arteries, an ultrasound on your kidneys to ensure the blood flow is good, and your echocardiogram to recheck your heart valve and heart thickness. Otherwise, we will plan to do these next year. documented in this encounter Progress Notes * Brandie Jensen APRN, NP-C - 04/16/2020 3:30 PM CDT FROM: Brandie Jensen APRN, NP-C, collaborating physician Shiv Meehan III, M.D. RE: Jose Rutledge : 1965 Reason for Visit: Follow Up and Coronary Artery Disease History of Present Illness: Mr. Rutledge is a pleasant 54-year-old male seen in the cardiology clinic today for an annual scheduled followup visit. He has a history of mild coronary artery disease, mild aortic stenosis, LVH, hypertension, hyperlipidemia, and diabetes. He reports that he is doing reasonably well from a cardiac standpoint. He denies any anginal chest pain or significant shortness of breath. He does have shortness of breath of climbing stairs, but states that this is not progressing. He denies any claudication, but he does occasionally have sciatica since his back surgery and occasional lower extremity cramping at night. He denies any overt symptoms of congestive heart failure such as paroxysmal nocturnal dyspnea, orthopnea, or pedal edema. He has no palpitations, but was told at his last primary care visit that his heart rate sounded irregular at times. He has occasional dizziness after bending over, but deniesany persistent lightheadedness or syncope. He denies signs and symptoms of CVA or TIA. He seems to be tolerating his present medications well without reported side effects. He does snore, and reportshe has difficulty sleeping. He believes that his primary care office is ordering a sleep study. He tells me that a [facility] screening approximately 10 to 15 years ago did mention carotid plaque. He reports his last hemoglobin A1c at 7.8%. Evaluation during the clinic visit included an EKG which confirmed the presence of sinus rhythm at a rate of 76 beats per minute. Recommendations/Plan: Mr. Rutledge's cardiac status appears clinically stable without ongoing anginal chest pain, symptoms of congestive heart failure, or signs of an underlying arrhythmia. Continued medical therapy and aggressive cardiac risk factor modification seem most appropriate at the present time. I have recommended the following to Mr. Rutledge: 1. CAD. He denies symptoms consistent with myocardial ischemia. We will continue current medical therapy. 2. Murmur, Mild Aortic Stenosis, LVH. He does have a systolic ejection murmur upon exam. His last echocardiogram indicated mild aortic stenosis with a peak gradient 25 mmHg mean gradient 13 mmHg, andmild LVH. We will plan to repeat an echocardiogram prior to his next visit. 3. Hypertension. His blood pressure is elevated in the office today. He tells me that at home, his blood pressure is typically 130-150s mmHg systolic. This morning with a wrist monitor, it was 117/77mmHg, which was low for him. He is on quite a few blood pressure medications and denies ever havingany evaluation of his renal arteries. We will switch his metoprolol tartrate 50 mg BID to carvedilol 12.5 mg BID for hopes of better blood pressure control. We discussed that ideally, I would like his blood pressure closer to 130/80 mmHg. I asked him to monitor his blood pressure over the next 1 to2 weeks and call the readings into the office. At that time we can consider increasing his carvedilol. 4. Carotid Plaque. It is hard to decipher upon auscultation the presence of a carotid bruit due to his systolic murmur. He does mention that he had an ultrasound documenting the presence of plaque. He denies any neurological symptoms. He will continue his aspirin and statin. We may order carotid dop plers. 5. Hyperlipidemia. He is currently treated with rosuvastatin and reports no apparent side effects. We will continue to defer lipid management to Dr. Wheat. An LDL cholesterol of less than 70 is recommended. We will plan to see Mr. Rutledge in one year. He mentions the cost of his bill when he had his heart catheterization and stress test. He has not yet met his deductible for this year. We discussed that following his colonoscopy later this fall, if he has met his deductible he will notify our office. At that time, we will plan to order his renal duplex, carotid dopplers, and echocardiogram during this year. If he does not meet his deductible, we will plan to do them prior to his next appointment. I have encouraged him to contact me in the meantime should he have any questions or problems. Medications: Current Outpatient Medications: ??? amlodipine 10 MG tablet, Take 10 mg by mouth daily. , Disp: , Rfl: ??? carvedilol 12.5 MG tablet, Take 1 tablet (12.5 mg total) by mouth 2 (two) times daily., Disp: 60 tablet, Rfl: 1 ??? cloNIDine 0.1 MG [...] before breakfast. , Disp: , Rfl: ??? Losartan Potassium-HCTZ [...] as needed for Sleep., Disp: , Rfl: ??? aspirin EC 81 MG EC tablet, Take 81 mg by mouth daily., Disp: , Rfl: Allergies Allergen Reactions ??? [...] for blurred vision and double vision. Respiratory: Positive for shortness of breath. Negative for cough and snoring. Cardiovascular: See HPI. Gastrointestinal: Negative for blood in stool and melena. Genitourinary: Negative for dysuria. Musculoskeletal: Positive for myalgias. Negative for new or worsening joint stiffness/pain. Skin: Negative for rash. Neurological: Negative for tingling/numbness and focal weakness. Endo/Heme/Allergies: Negative for new or significant bruising/bleeding and polydipsia. Psychiatric/Behavioral: Negative for depression and new or significant memory loss. Vitals: 04/16/20 1525 04/16/20 1546 BP: (!) 160/78 (!) 144/80 Patient Position: Sitting BP Location: Left arm Pulse: 76 Weight: 134.2 kg (295 lb 12.8 oz) Height: 5' 11 (1.803 m) Body mass index is 41.26 kg/m??. Physical Exam Constitutional: No distress. HENT: Teeth/gums normal. Eyes: Conjunctivae normal. Neck: Neck supple. No JVD. Pulmonary: Effort normal. Breath sounds normal. Abdomen: No tenderness. No mass. No hepatomegaly. No splenomegaly. Abdominal aorta not palpably enlarged. No abdominal aortic bruit. Neurological: Alert. Oriented x 3. Appropriate for situation. Skin: Dry. Warm. No cyanosis. No clubbing. Musculoskeletal: No kyphosis. Cardiovascular: Rate: Regular rhythm and Normal rate. PMI: PMI not displaced Pulses: Right Carotid pulses 2+, Left Carotid pulses 2+, Right DP pulses 2+, Left DP pulses 2+, Right PT pulses 2+, Left PT Pulses 2+, Negative for edema. Normal pulses. Heart Sounds: Normal S1 and Normal S2 Murmur and Systolic murmur. No gallop. No S3 sound and No S4 sound. Cardiovascular Comments: Diagnoses/Impression: 1. Mild coronary artery disease 2. AVD (aortic valve disease) 3. LVH (left ventricular hypertrophy) 4. Essential hypertension 5. Mixed hyperlipidemia [place] Documentation Completed: Coronary Artery Disease Referring Provider: Terri Ko MD PCP: JESÚS WHEAT MD documented in this encounter Plan of Treatment Upcoming Encounters Date Type Department Care Team (Late st Contact Info) Description 12/11/2024 2:00 PM CDT Office Visit [facility] [address] [place] [address] Brandie Jensen APRN, BINDER STRIPPER MACHINE-C [address] [facility] [address] [place] [address] documented as of this encounter Visit Diagnoses Diagnosis Mild coronary artery disease- Primary AVD (aortic valve disease) Aortic valve disorders LVH (left ventricular hypertrophy) Cardiomegaly Essential hypertension Unspecified essential hypertension Mixed hyperlipidemia documented in this encounter Care Teams Yarding And Folding Machine Operator Relationship Specialty Start Date End Date Jesús Wheat MD [address] [place] [address] PCP - General FAMILY PRACTICE 04/06/20 11/28/22 Shiv Meehan MD [employer] CARDIOVASCULAR DISEASE 10/29/17 03/18/24 documented as of this encounter
--- OUTSIDE RECORDS SUMMARY | 2024-07-28 01:02 | XMS_ITS | Encounter Summary ---
Author Organization [facility] Address [address] [place] [address] [place] [address] Care Team Providers Care Assistant Public Defender Name Role Phone Johnny Ko MD Primary Care Provider Shiv Bains MD Unavailable Unavailabl e Reason for Visit * Reason Comments Consult Chest Pain Abnormal Stress Test Encounter Details Date Type Department Care Team (Latest Contact Info) Description 11/15/2017 2:00 PM CDT Office Visit [facility] [place] [address] Shiv Meehan MD Consult; Chest Pain; Abnormal Stress Test Social History Tobacco Use Types [...] Sign Reading Time Taken Comments Blood Pressure 142/84 11/16/2017 2:20 PM CDT Pulse - - Temperature - - Respiratory Rate 18 11/16/2017 2:20 PM CDT Oxygen Saturation 96% 11/16/2017 2:20 PM CDT Inhaled Oxygen Concentration - - Weight 136.1 kg (300 lb) 11/16/2017 2:20 PM CDT Height 182.9 cm (6') 11/16/2017 2:20 PM CDT Body Mass Index 40.69 11/16/2017 2:20 PM CDT documented in this encounter Patient Instructions * Patient Instructions* Karla Parks RN - 11/16/2017 2:27 PM CDT 1. Needs [facility]- on a Sunday please Patient Education Diabetes and Diet The Basics Written by the doctors and editors at [facility] Why is diet important in diabetes???--??Diet is important, because it is part of diabetes treatment. Many people need to change what they eat and how much they eat to help treat their diabetes. It isimportant for people to treat their diabetes so that they: ?Keep their blood sugar at or near a normal level ?Prevent long-term problems, such as heart or kidney problems, that can happen in people with diabetes Changing your diet can also help treat obesity, high blood pressure, and high cholesterol. These conditions can affect people with diabetes and can lead to future problems, such as heart attacks or strokes. Who will work with me to change my diet???--??Your doctor or nurse will work with you to make a food plan to change your diet. He or she might also recommend that you work with a dietitian. A dietitian is an expert on food and eating. Do I need to eat at the same times every day???--??When and how often you should eat depends, in part, on the diabetes medicine that you take. For example, people who use a certain type of insulin orwho take diabetes pills that increase insulin levels (called sulfonylureas ) should eat meals at the same time each day. This helps prevent people from getting low blood sugar. People who use an insulin pump, insulin before each meal, or pills that improve the way insulin works (called metformin ) do not always have to eat meals at the same time. That's because people who use these treatments have a smaller chance of getting low blood sugar. What do I need to think about when planning what to eat???--??Our bodies break down the food we eatinto small pieces called carbohydrates, proteins, and fats. When planning what to eat, people with diabetes need to think about: ?Carbohydrates (or carbs ) - Carbohydrates, which are sugars that our bodies use for energy, can raise a person's blood sugar level. Your doctor, nurse, or dietitian will tell you how many carbohydrates you should eat at each meal or snack. Foods that have carbohydrates include: Bread, pasta, and rice Vegetables and fruits Dairy foods Foods with added sugar It is best to get your carbohydrates from fruits, vegetables, whole grains, and low-fat milk. ?Protein - Your doctor, nurse, or dietitian will tell you how much protein you should eat each day.It is best to eat lean meats, fish, eggs, beans, peas, soy products, nuts, and seeds. ?Fats - The type of fat you eat is more important than the amount of fat. Saturated and trans fats can increase your risk for heart problems, like a heart attack. Foods that have saturated fats include meat, butter, cheese, and ice cream. Foods that have trans fats include processed food with partially hydrogenated oils on the ingredient list. This may include fried foods, store bought cookies, muffins, pies, and cakes. Monounsaturated and polyunsaturated fats are better for you. Foods with these types of fat include fish, avocado, olive oil, and nuts. ?Calories - People need to eat a certain amount of calories each day to keep their weight the same.People who are overweight and want to lose weight need to eat fewer calories each day. ?Fiber - Eating foods with a lot of fiber can help control a person's blood sugar level. ?Salt - People who have high blood pressure should not eat foods that contain a lot of salt (also called sodium). People with high blood pressure should also eat healthy foods, such as fruits, vegetables, and low-fat dairy foods. ?Alcohol - Having more than 1 drink (for women) or 2 drinks (for men) a day can raise blood sugar levels. Also, drinks that have fruit juice or soda in them can raise blood sugar levels. What can I do if I need to lose weight???--??If you need to lose weight, you can: ?Exercise - Try to exercise for 30 minutes a day, most days of the week. Some people with diabetes need to change their medicine dose before they exercise. They might also need to check their blood sugar levels before and after exercising. ?Eat fewer calories - Your doctor, nurse, or dietitian can tell you how many calories you should eat each day in order to lose weight. If you are worried about your weight, size, or shape, talk with your doctor, nurse, or dietitian soglenat he or she can help. Can I eat the same foods as my family???--??Yes. You do not need to eat special foods if you have diabetes. You and your family can eat the same foods. Changing your diet is mostly about eating healthy foods and not eating too much. What are the other parts of diabetes treatment???--??The other parts of diabetes treatment are: ?Exercise ?Medicines Some people with diabetes need to learn how to match their diet and exercise with their medicine dose. For example, people who use insulin might need to choose the dose of insulin they give themselves. To choose their dose, they need to think about: ?What they plan to eat at the next meal ?How much exercise they plan to do ?What their blood sugar level is If the diet and exercise do not match the medicine dose, a person's blood sugar level can get too low or too high. Blood sugar levels that are too low or too high can cause problems. All topics are updated as new evidence becomes available and our peer review process is complete. This topic retrieved from [employer] on: Aug 09, 2017. Topic 24678 Version 5.0 Release: 25.6.2-122 - C26.3 ?2018??[employer] and/or its affiliates.??All rights reserved. Consumer Information Use and Disclaimer This information is not specific medical advice and does not replace information you receive from your health care provider. This is only a brief summary of general information. It does NOT include all information about conditions, illnesses, injuries, tests, procedures, treatments, therapies, discharge instructions or life-style choices that may apply to you. You must talk with your health care provider for complete information about your health and treatment options. This information should not be used to decide whether or not to accept your health care provider's advice, instructions or recommendations. Only your health care provider has the knowledge and training to provide advice that is right for you.The use of [employer] content is governed by the [employer] Terms of Use. ??2018 [employer]. All rights reserved. Copyright ?2018??[employer] and/or its affiliates.??All rights reserved. documented in this encounter Progress Notes * Shiv Meehan MD - 11/15/2017 2:00 PM CDT Reason for Visit: Consult; Chest Pain; and Abnormal Stress Test Medications: Current Outpatient Prescriptions: ??? aspirin EC 81 MG EC tablet, Take 81 mg by mouth daily., Disp: , Rfl: ??? amlodipine 10 MG tablet, , Disp: , Rfl: ??? cloNIDine 0.1 MG tablet, , Disp: , Rfl: ??? cyclobenzaprine 10 MG tablet, Take 10 mg by mouth 2 (two) times daily as needed for Muscle Spasms., Disp: , Rfl: ??? diclofenac sodium 75 MG tablet, , Disp: , Rfl: ??? gabapentin 300 MG capsule, Take 300 mg by mouth 3 (three) times daily., Disp: , Rfl: ??? glipiZIDE 10 MG tablet, , Disp: , Rfl: ??? Losartan Potassium-HCTZ 100-12.5 MG Tab, , Disp: , Rfl: ??? metFORMIN 1000 MG tablet, , Disp: , Rfl: ??? metoprolol tartrate 50 MG tablet, Take 50 mg by mouth 2 (two) times daily., Disp: , Rfl: ??? rosuvastatin 20 MG tablet, Take 20 mg by mouth daily., Disp: , Rfl: ??? zolpidem 12.5 MG CR tablet, Take 12.5 mg by mouth nightly as needed for Sleep., Disp: , Rfl: No Known Allergies Past Medical History: Diagnosis Date ??? Abnormal stress test ??? Diabetes ??? HTN (hypertension) ??? Hyperlipidemia ??? Neuropathy ??? Tinnitus No past surgical history on file. Social History Social History ??? Marital status: Spouse name: N/A ??? Number of children: N/A ??? Years of education: N/A Occupational History ??? retired Social History Main Topics ??? Smoking status: Never Smoker ??? Smokeless tobacco: Never Used ??? Alcohol use None ??? Drug use: None ??? Sexual activity: Not Asked Other Topics Concern ??? None Social History Narrative No family history on file. Family Status Relation Status ??? Mother ??? Father Review of Systems Constitutional: Negative for recent unintentional weight gain, recent unintentional weight loss andnew or significant fatigue. HENT: Negative for new or significant hearing loss. Eyes: Negative for blurred vision and double vision. Respiratory: Positive for snoring. Negative for cough and new or significant shortness of breath. Cardiovascular: See HPI Gastrointestinal: Positive for heartburn. Negative for blood in stool and melena. Genitourinary: Negative for dysuria. Musculoskeletal: Negative for myalgias and new or worsening joint stiffness/pain. Skin: Negative for rash. Neurological: Negative for tingling/numbness and focal weakness. Endo/Heme/Allergies: Negative for new or significant bruising/bleeding and polydipsia. Psychiatric/Behavioral: Negative for depression and new or significant memory loss. Filed Vitals: 11/16/17 1420 BP: 142/84 Resp: 18 SpO2: 96% Weight: 136.1 kg (300 lb) Height: 6' (1.829 m) Physical Exam Constitutional: He is oriented to person, place, and time. He appears well- developed and well-nourished. No distress. obese HENT: Mouth/Throat: Mucous membranes are not pale and not cyanotic. Eyes: There is no xanthelasma. Neck: Neck supple. Normal carotid pulses and no JVD present. Carotid bruit is not present. Cardiovascular: Normal rate, regular rhythm, S1 normal and S2 normal. Exam reveals no S3 and no S4. No murmur heard. Pulses: Dorsalis pedis pulses are 2+ on the right side, and 2+ on the left side. Posterior tibial pulses are 2+ on the right side, and 2+ on the left side. 3/6 JORGE ALBERTO Pulmonary/Chest: Effort normal and breath sounds normal. Abdominal: Soft. Normal appearance. He exhibits no abdominal bruit and no mass. There is no hepatosplenomegaly. There is no tenderness. Musculoskeletal: He exhibits no edema. No severe kyphoscoliosis. Neurological: He is oriented to person, place, and time. Neuro exam grossly normal. Skin: Skin is warm, dry and intact. No cyanosis. Nails show no clubbing. Without evidence of xanthoma. Psychiatric: He has a normal mood and affect. Diagnoses/Impression: 1. Abnormal stress test 2. Diabetes 3. Essential hypertension 4. Mixed hyperlipidemia 5. Neuropathy Referring Provider: No ref. provider found PCP: JOHNNY KO MD * Shiv Meehan MD - 11/15/2017 2:00 PM CDT Mr. Rutledge is seen in the [facility] today in consultation. He is a 52-year-old gentleman with numerous cardiac risk factors for coronary artery disease, who was sent to the cardiology clinic for further evaluation and treatment of his cardiac status after an abnormal nuclear stress test. Mr. Rutledge recently underwent a cardiac evaluation due to some upcoming back surgery scheduled for of this year. He was seen at that time by Dr. Barnett and underwent both an echocardiogram and a Regadenoson nuclear stress test. The echocardiogram demonstrated minimal aortic stenosis with a peak gradient of 13 mmHg (mean gradient 25 mmHg). There was mild left ventricular hypertrophy with an estimated LVEF of 55% to 60%. A Regadenoson nuclear stress test showed no EKG changes, although Mr. Rutledge did experience some mild chest pain. Nuclear imaging demonstrated a moderate-sized mild inferior perfusion defect during stress imaging, which was felt to be consistent with reversible ischemia. The left ventricle seemed to be dilated and the calculated LVEF was 45%. Interestingly, the left ventricular size was reported as normal on the echocardiogram. Mr. Rutledge denies any cardiac symptomatology. In particular, he has had no anginal chest pain or shortness of breath. He denies any overt symptoms of congestive heart failure such as paroxysmal nocturnal dyspnea, orthopnea, or pedal edema. He does have occasional palpitations which he describes as hisheart racing. He denies any syncope or near syncope. He has had no recent symptoms to suggest a CVA or TIA. He is tolerating his present medications well. Mr. Rutledge's cardiac risk factors for coronary artery disease include a very strong family history in several uncles who have had myocardial infarctions in their 40s. He also has had diabetes mellitus for many years. He has a history of hypertension as well as hyperlipidemia. He denies any history of tobacco abuse. He does have a history of loud nocturnal snoring, with questionable witnessed apnea. He reports that he has never been tested formally for sleep apnea. A review of the records shows that an EKG was performed in September of this year and confirmed the presence of normal sinus rhythm, with an ST and T-wave abnormality inferolaterally. A lipid panel showed a total serum cholesterol of 201, with an LDL cholesterol fraction of 114, and a total cholesterol to HDL cholesterol ratio of 4.0. Serum triglycerides were 183. A serum ALT at that time was 72. RECOMMENDATIONS AND PLAN: Mr. Rutledge is presently asymptomatic from a cardiac standpoint. His recent evaluation, however, suggested ongoing myocardial ischemia in the inferior wall of the left ventricle, as well as mild aortic valve disease which includes minimal aortic stenosis. Further evaluation and treatment is warranted before pursuing his planned back surgery next month. Aggressive cardiac risk factor modification will be important in his long-term care. I suspect that Mr. Rutledge suffers from abicuspid aortic valve in light of his clinical history. I have recommended the following to Mr. Rutledge: 1. Continue present medical regimen without alteration for now. 2. Cardiac catheterization to define the coronary anatomy and help direct further therapy. documented in this encounter Plan of Treatment Upcoming Encounters Date Type Department Care Team (Late st Contact Info) Description 12/11/2024 2:00 PM CDT Office Visit [facility] [address] [place] [phone] Brandie Jensen APRN, FARMWORKER LIVESTOCK-C [address] [address] [place] [address] documented as of this encounter Visit Diagnoses Diagnosis Abnormal stress test- Primary Other nonspecific abnormal cardiovascular system function study AVD (aortic valve disease) Aortic valve disorders Essential hypertension Unspecified essential hypertension Mixed hyperlipidemia documented in this encounter Care Teams Assistant Public Defender Relationship Specialty Start Date End Date Johnny Ko MD PCP - General SURGERY 10/29/17 03/29/20 Shiv Meehan MD [place] Technical Staff Assistant CARDIOVASCULAR DISEASE 10/29/17 03/18/24 documented as of this encounter
--- OUTSIDE RECORDS SUMMARY | 2024-07-28 01:02 | XMS_ITS | Encounter Summary ---
Author Organization [facility] Address [address] [place] [address] [place] [address] Care Team Providers Care Mechanical Estimator Name Role Phone Terri Ko MD Primary Care Provider Shiv Bains MD Unavailable Unavailabl e Reason for Visit * Reason Onset Date Comments Other 12/05/2017 Needing patient info Encounter Details Date Type Department Care Team (Late st Contact Info) Description 12/05/2017 Telephone [facility] [address] [place] [address] Shiv Meehan MD Other (Needing patient info) Social History Tobacco Use Types Packs/Day Years [...] encounter Progress Notes * Nataliia Flores - 12/06/2017 8:52 AM CDT Spoke with Lyly and advised we did not order the stress test. Gave her [facility] number [facility] he [facility] it done. Also faxed a short form of heart cath to her at [phone]. * Nataliia Flores - 12/05/2017 1:51 PM CDT Tried to return call to Lyly. No answer. 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 Please call her back at [phone] ext. [phone]. documented in this encounter Plan of Treatment Upcoming Encounters Date Type Department Care Team (Late st Contact Info) Description 12/11/2024 2:00 PM CDT Office Visit [facility] [address] [place] [phone] Brandie Jensen, RAILROAD WATCHMAN, SUPERVISOR SAWING AND ASSEMBLY-C [address] [facility] [address] [place] [phone] documented as of this encounter Visit Diagnoses Not on filedocumented in this encounter Care Teams Mechanical Estimator Relationship Specialty Start Date End Date Terri Ko MD PCP - General SURGERY 10/29/17 03/29/20 Shiv Meehan MD [place] Manager Van CARDIOVASCULAR DISEASE 10/29/17 03/18/24 documented as of this encounter
--- OUTSIDE RECORDS SUMMARY | 2024-07-28 01:02 | XMS_ITS | Encounter Summary ---
Author Organization [facility] Address [address] [place] [place] [address] [place] [address] Care Team Providers Care Traffic Sergeant Name Role Phone Shiv Meehan MD, Steven Richard MD Primary Care Provider Reason for Referral * Imaging (Routine) - Closed Specialty Diagnoses / Procedures Referred By Contac t Referred To Contact RADIOLOGY Diagnoses Hypertension Procedures USV ABD PEL OR RETRO DUPLEX COMP Thaddeus Dhillon APRN, NP-C [address] [facility] [address] [place] [address] Phone: tel: fax: Referral ID Status Reason Start Date Expiration Date Visits Re quested Visits Authorized [id number] Closed 05/26/2020 06/26/2021 1 1 OND MOUNTER * Imaging (Routine) - Closed Specialty Diagnoses / Procedures Referred By Contac t Referred To Contact RADIOLOGY Diagnoses Carotid artery plaque Procedures USV CAROTID DUPLEX ELEAZAR Thaddeus Dhillon APRN, NP-C [address] [facility] [address] [place] [address] Phone: tel: fax: Referral ID Status Reason Start Date Expiration Date Visits Re quested Visits Authorized [id number] Closed 06/24/2020 07/24/2020 1 1 OND MOUNTER Reason for Visit * Imaging (Routine) - Closed Specialty Diagnoses / Procedures Referred By Kd figueroa Referred To Contact RADIOLOGY Diagnoses Carotid artery plaque Procedures USV CAROTID DUPLEX ELEAZAR Thaddeus Dhillon APRN, NP-C [id number] [place] [address] Phone: tel: fax: Referral ID Status Reason Start Date Expiration Date Visits Re quested Visits Authorized [id number] Closed 06/24/2020 07/24/2020 1 1 Encounter Details Date Type Department Care Team (Latest Contact Info) Description 06/24/2020 8:37 AM DIAMOND MOUNTER Hospital Encounter [facility] Vascular Ultrasound - [facility] [address] [place] [address] Thaddeus Dhillon APRN, NP-C [id number] [place] [address] Discharge Disposition: Home or Self [...] COVID-19? No / Unsure 06/24/2020 8:35 AM DIAMOND MOUNTER documented as of this encounter Medications at [...] Description 12/11/2024 2:00 PM CDT Office Visit [facility] [address] [place] [phone] Thaddeus Dhillon, SOCCER COMMENTATOR, SHOE REPAIRER APPRENTICE-C [address] [facility] [address] [place] [address] documented as of this encounter Procedures Procedure Name Priority Date/Time Associated Diagnosis Comments USV ABD PEL OR RETRO DUPLEX COMP Routine 06/24/2020 9:58 AM DIAMOND MOUNTER Hypertension USV CAROTID DUPLEX ELEAZAR Routine 06/24/2020 9:57 AM DIAMOND MOUNTER Carotid artery plaque documented in this encounter Results * USV ABD PEL OR RETRO DUPLEX COMP (06/24/2020 9:58 AM DIAMOND MOUNTER) Anatomical Region Laterality Modality NA Ultrasound 06/24/2020 8:55 AM DIAMOND MOUNTER Narrative 06/24/2020 4:54 PM DIAMOND MOUNTER ?Vascular Report Pat.Name: ??JOSE RUTLEDGE ? Pat.ID: ?[id number] ? St.Date: ?? 06/24/2020 ?Refer.MD: ??THADDEUS DHILLON ? Exam Time: 8:55:00 AM ? Study Type:PVI DUPLEX SCAN-RENAL ART ??Age: ??1965,55Y ? Sex: ? MALE ? Sonogrphr: HINA Tovar Pat. Stat.:Outpatient ? ICD - 9: ?? I10 Essential (primary) hypertension CPT - 4: ?33518 Arterial Inflow and Venous outflow Renal complete [...] Fraser MD - 06/24/2020 Vascular Report Pat.Name: TIO JOSE NATTY Pat.ID: [id number] .Date: 06/24/2020 Refer.MD: THADDEUS DHILLON Exam Time: 8:55:00 AM Study Type:PVI DUPLEX SCAN-RENAL ART Age: 8 1965,55Y Sex: MALE Sonogrphr: Cecy Pineda, RVMarc Javier Pat. Stat.:Outpatient ICD - 9: I10 Essential (primary) hypertension CPT - 4: 80424 Arterial Inflow and Venous outflow Renal complete [...] PM Tavo Fraser M.D. us Thaddeus Dhillon SOCCER COMMENTATOR, SHOE REPAIRER APPRENTICE-C US VASC Final Result * USV CAROTID DUPLEX ELEAZAR (06/24/2020 9:57 AM DIAMOND MOUNTER) Anatomical Region Laterality Modality Neck Ultrasound 06/24/2020 8:27 AM DIAMOND MOUNTER Narrative 06/24/2020 4:43 PM DIAMOND MOUNTER ?SJS ?Vascular Report Pat.Name: ??JOSE RUTLEDGE ? Pat.ID: ?[id number] ? St.Date: ?? 06/24/2020 ?Refer.MD: ??THADDEUS DHILLON ? Exam Time: 8:27:00 AM ? Study Type:PVI CAROTID SCAN - BILATERAL ??Age: ??1965,55Y ? Sex: ? MALE ? Sonogrphr: HINA Tovar Pat. Stat.:Outpatient ? ICD - 9: ?? R09.89 Other specified symptoms/signs CPT - 4: ?86175 Carotid Duplex ?? Reason for Study: Carotid [...] MD - 06/24/2020 [facility] Vascular Report Pat.Name: JOSE RUTLEDGE Pat.ID: [id number] St.Date: 06/24/2020 Refer.MD: THADDEUS DHILLON Exam Time: 8:27:00 AM Study Type:PVI CAROTID SCAN - BILATERAL Age: 8 1965,55Y Sex: MALE Sonogrphr: Cecy Pineda, RVMarc Javier Zoey. Stat.:Outpatient ICD - 9: R09.89 Other specified symptoms/signs CPT - 4: 71789 Carotid Duplex Reason for Study: Carotid Artery [...] Signed 06/24/2020 04:43 PM Tavo Fraser M.D. us Thaddeus Dhillon APRN, SHOE REPAIRER APPRENTICE-C US VASC Final Result documented in this encounter Visit Diagnoses Diagnosis Carotid artery plaque Occlusion and stenosis of carotid artery without mention of cerebral infarction Hypertension Unspecified essential hypertension documented in this encounter Care Teams Traffic Sergeant Relationship Specialty Start Date End Date Jesús Wang MD [address] [place] [address] PCP - General FAMILY PRACTICE 04/06/20 11/28/22 Shiv Meehan MD [place] Manager Of [employer] CARDIOVASCULAR DISEASE 10/29/17 03/18/24 documented as of this encounter
--- OUTSIDE RECORDS SUMMARY | 2024-07-28 01:02 | XMS_ITS | Encounter Summary ---
Author Organization [facility] Address [address] [place] [address] [place] [address] Care Team Providers Care Nuisance Wildlife Control Operator Name Role Phone Shiv Meehan MD [facility] Jesús Merlos MD Primary Care Provider Encounter Details Date Type Department Care Team (Late st Contact Info) Description 07/05/2020 Orders Only [facility] [address] [place] [phone] Brandie Jensen, SHANNAN, MATERIALS MANAGEMENT MANAGER-C [address] [facility] [address] [place] [address] Social History Tobacco Use Types Packs/Day Years [...] COVID-19? No / Unsure 06/24/2020 8:35 AM GROUP EXERCISE INSTRUCTOR documented as of this encounter Plan of Treatment Upcoming Encounters Date Type Department Care Team (Late st Contact Info) Description 12/11/2024 2:00 PM CDT Office Visit [facility] eld [address] [place] [address] Brandie Jensen, SHANNAN, MATERIALS MANAGEMENT MANAGER-C [address] [facility] [address] [place] [address] documented as of this encounter Visit Diagnoses Not on filedocumented in this encounter Care Teams Nuisance Wildlife Control Operator Relationship Specialty Start Date End Date Jesús Wang MD [address] [place] [address] PCP - General FAMILY PRACTICE 04/06/20 11/28/22 Shiv Meehan MD [place] [employer] Solution Architect CARDIOVASCULAR DISEASE 10/29/17 03/18/24 documented as of this encounter
--- OUTSIDE RECORDS SUMMARY | 2024-07-28 01:02 | XMS_ITS | Encounter Summary ---
Author Organization [facility] Address [address] [facility] [place] [address] [place] [address] Care Team Providers Care Sales Department Manager Name Role Phone Terri Ko MD Primary Care Provider Shiv Bains MD Unavailable Unavailabl e Jesús Wang MD Primary Care Provider Brandie Jensen APRN PRE PRESS OPERATOR-C Unavailable Noé Crowley MD Unavailable Jasper Figueroa MD Unavailable [phone] Torrey Lafleur MD Unavailable [phone] Faisal Richardson DO Primary Care Provider Joe Pike MD Unavailable [phone] Encounter Details Date Type Department Care Team (Late st Contact Info) Description 11/08/2017 Abstract [facility] [address] [place] [address] Shiv Meehan MD Social History Tobacco Use [...] 12/11/2024 2:00 PM CDT Office Visit [facility] eld [address] [place] [address] Brandie Jensen APRN, PRE PRESS OPERATOR-C [address] [facility] [address] [phone] documented as of this encounter Visit Diagnoses Not on filedocumented in this encounter Care Teams Sales Department Manager Relationship Specialty Start Date End Date Terri Ko MD PCP - General SURGERY 10/29/17 03/29/20 Jesús Wang MD [address] [place] [address] PCP - General FAMILY PRACTICE 04/06/20 11/28/22 Faisal Richardson DO [address] [place] [address] PCP - General FAMILY PRACTICE 11/29/22 Shiv Meehan MD [place] Geriatric Physician CARDIOVASCULAR DISEASE 10/29/17 03/18/24 Brandie Jensen APRN, PRE PRESS OPERATOR-C [address] [phone] NURSE PRACTITIONER 02/08/21 Noé Crowley MD [address] [facility] [address] [facility] [address] [place], [place] [id number] Surgeon ORTHOPAEDIC SURGERY 02/08/21 Jasper Figueroa MD [address] [facility] [address] [place] [address] Surgeon NEUROLOGICAL SURGERY 12/08/21 Torrey Lafleur MD [address] [facility] Orthopaedic [place], [place] [address] ORTHOPAEDIC SURGERY 11/22/22 Joe Pike MD [address] [facility] [address] [place] [phone] Consulting Physician INTERVENTIONAL CARDIOLOGY 03/19/24 documented as of this encounter
--- OUTSIDE RECORDS SUMMARY | 2024-07-28 01:02 | XMS_ITS | Encounter Summary ---
Author Organization [facility] Address [address] [place] [address] [place] [address] Care Team Providers Care Merchandising Execution Manager Name Role Phone Shiv Meehan MD, Steven Richard MD Primary Care Provider Reason for Visit * Reason Onset Date Comments Schedule Test 05/26/2020 Encounter Details Date Type Department Care Team ([facility] st Contact Info) Description 05/26/2020 Telephone [facility] [address] [place] [address] Brandie Jensen, SHANNAN, HEAT TRANSFER TECHNICIAN-C [address] [facility] [address] [place] [address] Schedule Test Social History Tobacco [...] Progress Notes * Ligia Vaughan RN - 05/31/2020 9:12 AM CDT Pt returned call and stated 06/24 works for him. Testing scheduled. Letter mailed. * Brandie Jensen APRN, HEAT TRANSFER TECHNICIAN-C - 05/31/2020 8:33 AM CDT Looked through the schedule, and we could schedule his testing on 06/24/20 with the renal duplex at 9:00am, carotids at 10:00am, and echo at 11:00am. Left message to return call to verify that these times work. Tests not scheduled yet. * Opal Catherine - 05/26/2020 4:22 PM CDT Pt called about scheduling the testing that Brandie had suggested at the last o/v. Pt had initially wanted to wait to schedule these until he had met his deductible and we were going to schedule them prior to his next o/v in Apr 2021. However, pt's has a lot of stuff going on and he wants to get these out of the way before the end of the year. I spoke w/ Dr. Meehan's RN to ask for orders and whether pt needs to come to [facility] for these tests.She said that they did prefer him to have these done at [facility] because of the quality of pictures. I verbalized this to pt and told him that I would call him back when I get them scheduled. Patient verbalized understanding and had no further questions. documented in this encounter Plan of Treatment Upcoming Encounters Date Type Department Care Team (Late st Contact Info) Description 12/11/2024 2:00 PM CDT Office Visit [facility] eld [address] [place] [address] Brandie Jensen APRN, HEAT TRANSFER TECHNICIAN-C [address] [facility] [address] [place] [address] documented as of this encounter Visit Diagnoses Not on filedocumented in this encounter Care Teams Merchandising Execution Manager Relationship Specialty Start Date End Date Jesús Wang MD [address] [place] [address] PCP - General FAMILY PRACTICE 04/06/20 11/28/22 Shiv Meehan MD [place] Sales Superintendent CARDIOVASCULAR DISEASE 10/29/17 03/18/24 documented as of this encounter
--- OUTSIDE RECORDS SUMMARY | 2024-07-28 01:02 | XMS_ITS | Encounter Summary ---
Author Organization [facility] Address [address] [facility] [place] [address] [place] [address] Care Team Providers Care Shampooer Name Role Phone Shiv Meehan MD, Steven Richard MD Primary Care Provider Encounter Details Date Type Department Care Team (Latest Contact Info) Description 06/24/2020 Travel Social History Tobacco Use Types Packs/Day [...] COVID-19? No / Unsure 06/24/2020 8:35 AM ELECTRIC METER TESTER documented as of this encounter Plan of Treatment Upcoming Encounters Date Type Department Care Team (Late st Contact Info) Description 12/11/2024 2:00 PM CDT Office Visit [facility] [address] [place] [address] Brandie Jensen, SHANNAN, CLINICAL BUSINESS MANAGER-C [address] [facility] [address] [place] [address] documented as of this encounter Visit Diagnoses Not on filedocumented in this encounter Care Teams Shampooer Relationship Specialty Start Date End Date Jesús Wang MD [address] [place] [address] PCP - General FAMILY PRACTICE 04/06/20 11/28/22 Shiv Meehan MD [place] Roof Cement And Paint Maker Helper CARDIOVASCULAR DISEASE 10/29/17 03/18/24 documented as of this encounter
--- OUTSIDE RECORDS SUMMARY | 2024-07-28 01:02 | XMS_ITS | Encounter Summary ---
Author Organization [facility] Address [address] [facility] [place] [address] [place] [address] Care Team Providers Care Book Editor Name Role Phone Shiv Meehan MD, Steven Richard MD Primary Care Provider Reason for Visit * Reason Onset Date Comments Results 06/24/2020 Encounter Details Date Type Department Care Team ([facility] st Contact Info) Description 06/24/2020 Telephone [facility] [address] [place] [address] Brandie Jensen, SHANNAN, SEAT COVER INSTALLER-C [address] [facility] [address] [place] [address] Results Social History Tobacco Use [...] COVID-19? No / Unsure 06/24/2020 8:35 AM RETAIL MERCHANDISER documented as of this encounter Progress Notes * Ligia Vaughan RN - 06/24/2020 3:47 PM CST Spoke to pt regarding his recent test results. Pt states his BP has been running high. It was doingbetter, but the pharmacy messed up his medications. He was not given the carvedilol the last time he picked up his meds, so he has not been taken it. Pt states he will try to get to the pharmacy within the next couple of days to parts picker the carvedilol. Asked pt to call me 2 weeks after restarting ca rvedilol with BP update. Patient verbalized understanding and had no further questions. Called pharmacy to clarify medications. [place] * Ligia Vaughan RN - 06/24/2020 3:44 PM CST ----- Message from Brandie Jensen APRN, SEAT COVER INSTALLER-C sent at 06/24/2020 11:46 AM RETAIL MERCHANDISER ----- No renal artery stenosis. Mild SRIDHAR plaque, but bilateral ICA stenosis 0-39%. No need to repeat regularly. Will await echo results. How's his BP? [place] MERCHANDIS[place] documented in this encounter Plan of Treatment Upcoming Encounters Date Type Department Care Team (Late st Contact Info) Description 12/11/2024 2:00 PM CDT Office Visit [facility] [address] [place] [address] Brandie Jensen APRN, SEAT COVER INSTALLER-C [address] [facility] [address] [place] [address] documented as of this encounter Visit Diagnoses Not on filedocumented in this encounter Care Teams Book Editor Relationship Specialty Start Date End Date Jesús Wang MD [address] [place] [address] PCP - General FAMILY PRACTICE 04/06/20 11/28/22 Shiv Meehan MD [place] Account Auditor CARDIOVASCULAR DISEASE 10/29/17 03/18/24 documented as of this encounter
--- OUTSIDE RECORDS SUMMARY | 2024-07-28 01:02 | XMS_ITS | Encounter Summary ---
Author Organization [facility] Address [address] [place] [address] [place] [address] Care Team Providers Care Director Of Guidance In [employer] Name Role Phone Terri Ko MD Primary Care Provider Shiv Bains MD Unavailable Unavailabl e Encounter Details Date Type Department Care Team (Late st Contact Info) Description 11/20/2017 Pre-Procedure Call Route [address] [facility] Medicare Interviewer Pre/Post [address] [place] [address] Denise Anaya RN Social History Tobacco Use Types Packs/Day [...] 12/11/2024 2:00 PM CDT Office Visit [facility] [address] [place] [address] Brandie Jensen, BEEF TRIMMER, CUTTER OPERATOR BRICK-C [address] [facility] [address] [place] [address] documented as of this encounter Visit Diagnoses Not on filedocumented in this encounter Care Teams Director Of Guidance In [employer] Relationship Specialty Start Date End Date Terri Ko MD PCP - General SURGERY 10/29/17 03/29/20 Shiv Meehan MD [place] Certified Personal Trainer CARDIOVASCULAR DISEASE 10/29/17 03/18/24 documented as of this encounter
--- OUTSIDE RECORDS SUMMARY | 2024-07-28 01:02 | XMS_ITS | Encounter Summary ---
Author Organization [facility] Address [address] [facility] [place] [address] [place] [address] Care Team Providers Care Sld Teacher Name Role Phone Shiv Meehan MD [facility] Jesús Merlos MD Primary Care Provider Reason for Visit * Reason Onset Date Comments Pre-authorization 06/21/2020 Encounter Details Date Type Department Care Team ([facility] st Contact Info) Description 06/21/2020 Telephone [facility] Pre Access Team [address] [place] [address] Brandie Jensen, MANAGER OF TRAINING AND DEVELOPMENT, FITNESS/WELLNESS DIRECTOR-C [address] [facility] [address] [place] [address] Pre-authorization Social History Tobacco Use Types Packs/Day Years [...] COVID-19? No / Unsure 06/24/2020 8:35 AM CIGAR PACKER documented as of this encounter Progress Notes * Maisha Pizarro - 06/21/2020 2:17 PM CSTSummary: PRE AUTH Just wanted you to know that, patients auth is still pending for Carotid cpt code 80274, Echo cpt code 86568, and abd retro duplex scan cpt code 77427. I just called and spoke to Debbie Solorzano at [employer] @ [phone] case#[id number]. Hopefully, we will get auth in the next day or so, since patient is on for 06/24, Thank you. R PACKER documented in this encounter Plan of Treatment Upcoming Encounters Date Type Department Care Team (Late st Contact Info) Description 12/11/2024 2:00 PM CDT Office Visit [facility] eld [address] [place] [address] Brandie Jensen, MANAGER OF TRAINING AND DEVELOPMENT, FITNESS/WELLNESS DIRECTOR-C [address] [facility] [address] [place] [address] documented as of this encounter Visit Diagnoses Not on filedocumented in this encounter Care Teams Sld Teacher Relationship Specialty Start Date End Date Jesús Wang MD [address] [place] [address] PCP - General FAMILY PRACTICE 04/06/20 11/28/22 Shiv Meehan MD [place] It Program Engagement Director CARDIOVASCULAR DISEASE 10/29/17 03/18/24 documented as of this encounter
--- OUTSIDE RECORDS SUMMARY | 2024-07-28 01:02 | XMS_ITS | Encounter Summary ---
Author Organization [facility] Address [address] [place] [address] [place] [address] Care Team Providers Care Commercial Lease Administrator Name Role Phone Terri Ko MD Primary Care Provider Shiv Bains MD Unavailable Unavailabl e Reason for Visit * Reason Comments Lab (SCAN) Encounter Details Date Type Department Care Team (Late Contact Info) Description 06/15/2017 Scan [facility] [address] [place] [address] Scanned, Documents Lab (SCAN) Social History Tobacco Use Types Packs/Day [...] Description 12/11/2024 2:00 PM CDT [facility] [address] [place] [address] Brandie Jensen, SHANNAN, SLIP LASTER-C [address] [facility] [address] [place] [address] documented as of this encounter Procedures Procedure Name Priority Date/Time Associated Diagnosis Comments OUTSIDE LAB (SCAN ORDER) Routine 06/15/2017 documented in this encounter Results * OUTSIDE LAB (06/15/2017) 06/15/2017 us Documents Scanned SCANNING Final Result documented in this encounter Visit Diagnoses Not on filedocumented in this encounter Care Teams Commercial Lease Administrator Relationship Specialty Start Date End Date Terri Ko MD PCP - General SURGERY 10/29/17 03/29/20 Shiv Meehan MD [place] [address] Repairer CARDIOVASCULAR DISEASE 10/29/17 03/18/24 documented as of this encounter
--- OUTSIDE RECORDS SUMMARY | 2024-07-28 01:02 | XMS_ITS | Encounter Summary ---
Author Organization [facility] Address [address] [place] [address] [place] [address] Care Team Providers Care Property Accountant Name Role Phone Sihv Meehan MD [facility] Jesús Bennett MD Primary Care Provider Encounter Details Date Type Department Care Team (Late st Contact Info) Description 02/01/2021 Orders Only [facility] [address] [place] [address] Shiv Meehan MD Social History [...] PM CDT Office Visit [facility] eld [address] [place] [address] Brandie Jensen, SHANNAN, PERSONAL BANKING ADVISOR-C [address] [facility] [address] [place] [address] documented as of this encounter Procedures Procedure Name Priority Date/Time Associated Diagnosis Comments USE ECHOCARDIOGRAM Routine 02/01/2021 Mild coronary artery disease AVD (aortic valve disease) LVH (left ventricular hypertrophy) Essential hypertension documented in this encounter Results * USE ECHOCARDIOGRAM (02/01/2021) Anatomical Region Laterality Modality Cardiac Echocardiogram us Shiv Meehan MD ECHO Final Resul t documented in this encounter Visit Diagnoses Diagnosis Mild coronary artery disease AVD (aortic valve disease) Aortic valve disorders LVH (left ventricular hypertrophy) Cardiomegaly Essential hypertension Unspecified essential hypertension documented in this encounter Care Teams Property Accountant Relationship Specialty Start Date End Date Jesús Wang MD [address] [place] [address] PCP - General FAMILY PRACTICE 04/06/20 11/28/22 Shiv Meehan MD [place] Parts Control Clerk CARDIOVASCULAR DISEASE 10/29/17 03/18/24 documented as of this encounter
--- OUTSIDE RECORDS SUMMARY | 2024-07-28 01:02 | XMS_ITS | Encounter Summary ---
Author Organization [facility] Address [address] [place] [address] [place] [address] Care Team Providers Care Sanitation Engineer Name Role Phone Shiv Meehan MD Unavailable Unavailabl e Reason for Visit * Reason Onset Date Comments Appointment Request 03/30/2020 Encounter Details Date Type Department Care Team ([facility] Contact Info) Description 03/30/2020 Telephone [facility] [address] [place] [address] Brandie Jensen, [address] VENDOR, BILINGUAL SECRETARY-C [address] [facility] [address] [place] [address] Appointment Request Social History Tobacco Use Types [...] encounter Progress Notes * Nataliia Flores - 03/30/2020 9:43 AM CDT Patient called to schedule a f/u appt. appt scheduled, letter mailed. documented in this encounter Plan of Treatment Upcoming Encounters Date Type Department Care Team ([facility] st Contact Info) Description 12/11/2024 2:00 PM CDT Office Visit [facility] eld [address] [place] [phone] Brandie Jensen, [address] VENDOR, BILINGUAL SECRETARY-C [address] [facility] [address] [place] [address] documented as of this encounter Visit Diagnoses Not on filedocumented in this encounter Care Teams Sanitation Engineer Relationship Specialty Start Date End Date Shiv Meehan MD [place] Nail Maker CARDIOVASCULAR DISEASE 10/29/17 03/18/24 documented as of this encounter
--- OUTSIDE RECORDS SUMMARY | 2024-07-28 01:07 | XMS_ITS | Encounter Summary ---
Author Organization [facility] Address [address] [place] [address] Phone Care Team Providers Care Sifting Operator Name Role Phone Faisal Richardson DO Primary Care Provider Reason for Referral * Diagnostic Imaging (Routine) - Closed Specialty Diagnoses / Procedures Referred By Kd t Referred To Contact Diagnoses Follow-up examination after orthopedic surgery S/P reverse total shoulder arthroplasty, left Procedures XR Shoulder Left 2 or More Views Guille Guillaume MD Phone: tel: fax: [address] [phone] Referral ID Status Reason Start Date Expiration Date Visits Re quested Visits Authorized [id number] Closed 06/08/2022 07/08/2023 1 1 Reason for Visit * Reason Comments Post-op Follow-up Encounter Details Date Type Department Care Team (Late st Contact Info) Description 06/12/2022 8:10 AM PAPER GLUING OPERATOR Office Visit [facility] Orthopaedic Surgery [address] [facility] 12th [address] [place] [phone] Guille Guillaume MD [address] [facility] [address] [place] [address] Follow-up examination after orthopedic surgery (Primary Dx); S/P reverse total shoulder arthroplasty, left Social History Tobacco Use Types Packs/Day Years Used Date Smoking Tobacco: Never Smokeless Tobacco: Never AUDIT-C Answer Date Recorded Q1: How often do you have a drink containing alcohol? Never 05/02/2022 Q2: How many drinks containi ng alcohol do you have on a typical day when you are drinking? Patient does not drink Q3: How often do you have si x or more drinks on one occasion? Never 05/02/2022 Sex and Gender Information Value Date Recorded Sex Assigned at Not on file Legal Sex Male 9:47 AM CDT Gender Identity Not on file Sexual Orientation Not on file documented as of this encounter Progress Notes * Guille Guillaume MD - 06/12/2022 8:10 AM CST POST OP VISIT INTERIM HISTORY Date of Surgery: 05/02/2022 Procedure: Left Reverse Total Shoulder Arthroplasty - Left Jose Rutledge returns for routine postoperative follow-up after surgery. Pain has been well-controlled with the exception of some anterior pain over the anterior deltoid that is activity related. PHYSICAL EXAMINATION No acute distress, alert and oriented X 3. Incision healing is noted with no sign of infection. Deltoid Fires well. There is full symmetric range of motion of the elbow. Active assisted forward elevation is to 140??. Distal motor and sensory function is normal. REVIEW OF X-RAYS/STUDIES X-rays were performed today and reviewed personally. X-rays demonstrate a stable reverse shoulder arthroplasty construct. IMPRESSION/DIAGNOSIS Doing well now 6 weeks after Reverse shoulder arthroplasty TREATMENT/PLAN Given the pain he is experiencing I have recommended a period of relative rest from lila exercises and continued rest from any sort of heavy lifting or repetitive use activities. He is planning on undergoing a total hip arthroplasty next month and by resting the shoulder and using ice and heat and Tylenol as needed that I think that he would likely be able to be more comfortable with the shoulder in anticipation of the hip surgery. We reviewed precautions and they voiced understanding. All questions were answered today. FOLLOW UP 6 weeks Guille Guillaume MD, MSc Tree Wrapper of Orthopedic Surgery Shoulder and Elbow Service [facility] Orthopedics [facility] Dr. Guille Guillaume dictating using Fluency Direct. Certified Corporate Travel Executive variances may occur. R GLUING OPERATOR documented in this encounter Plan of Treatment Not on file documented as of this encounter Results * XR Shoulder Left 2 or More Views (06/12/2022 8:21 AM PAPER GLUING OPERATOR) Anatomical Region Laterality Modality Upper Extremities, Shoulder Left Comp uted Radiography 06/12/2022 8:36 AM PAPER GLUING OPERATOR Impressions 06/12/2022 8:36 AM PAPER GLUING OPERATOR 1. Reverse left total shoulder arthroplasty in expected position. Electronically signed by: Ramana Paz M.D. Narrative 06/12/2022 8:36 AM PAPER GLUING OPERATOR EXAMINATION: XR SHOULDER LEFT 2 OR MORE VIEWS HISTORY: Left shoulder osteoarthritis FINDINGS: 4 view examination of left shoulder is compared to a study from 05/15/2022. Reverse tdey-iyc-fnbsyp left total shoulder arthroplasty remains in near-anatomic position. There is no fracture or component migration. There is a large subacromial spur and mild acromioclavicular osteoarthritis. Procedure Note Ramana Paz MD - 06/12/2022 EXAMINATION: XR SHOULDER LEFT 2 OR MORE VIEWS HISTORY: Left shoulder osteoarthritis FINDINGS: 4 view examination of left shoulder is compared to a study from 05/15/2022. Reverse ukdt-yrk-uabiuu left total shoulder arthroplasty remains in near-anatomic position. There is no fracture or component migration. There is a large subacromial spur and mild acromioclavicular osteoarthritis. IMPRESSION: 1. Reverse left total shoulder arthroplasty in expected position. Electronically signed by: Ramana Paz M.D. us Guille Guillaume MD IMG XR PROCEDURES Rowena l Result documented in this encounter Visit Diagnoses Diagnosis Follow-up examination after orthopedic surgery- Primary S/P reverse total shoulder arthroplasty, left Follow-up examination after orthopedic surgery S/P reverse total shoulder arthroplasty, left documented in this encounter Care Teams Sifting Operator Relationship Specialty Start Date End Date Faisal Richardson DO [address] [place] [address] PCP - General Family Medicine 04/27/22 documented as of this encounter
--- OUTSIDE RECORDS SUMMARY | 2024-07-28 01:07 | XMS_ITS | Encounter Summary ---
Author Organization [facility] Address [address] [place] [address] Phone Care Team Providers Care Entry Level Web Developer Name Role Phone Faisal Richardson DO Primary Care Provider Reason for Referral * Diagnostic Imaging (Routine) - Closed Specialty Diagnoses / Procedures Referred By Kd t Referred To Contact Diagnoses Follow-up examination after orthopedic surgery Rotator cuff arthropathy, left Procedures XR Shoulder Left 2 or More Views French Quezada MD [address] [facility] [place] [address] Phone: tel: fax: [facility] Referral ID Status Reason Start Date Expiration Date Visits Re quested Visits Authorized [id number] Closed 06/11/2023 07/10/2024 1 1 ECUTTER Reason for Visit * Reason Comments Pain Encounter Details Date Type Department Care Team (Late st Contact Info) Description 06/12/2023 9:45 AM STONECUTTER Office Visit [facility] Orthopaedic Surgery [address] [facility] 1st Floor [address] [place] [address] French Quezada MD [address] [place] [address] Rotator cuff arthropathy, left (Primary Dx); Follow-up examination after orthopedic surgery Social History Tobacco Use Types Packs/Day Years [...] as of this encounter Progress Notes * French Quezada MD - 06/12/2023 9:45 AM CST Images from the original note were not included. ESTABLISHED PATIENT VISIT INTERIM HISTORY Jose Rutledge returns 1 year status post left reverse shoulder arthroplasty. He is overall doing okay. Still having some issues with pain especially with rotational motion. Hip is coming along okay. PHYSICAL EXAMINATION Patient appears well, in no acute distress. Alert and oriented x 3. Elevation is to 140??, external rotation is to 30??, internal rotation is to posterolateral buttock. Neurovascular intact throughout. REVIEW OF X-RAYS/STUDIES I ordered and independently interpreted four views left shoulder today, these show Depuy reverse arthroplasty expected positioning. Assessment/Plan IMPRESSION/DIAGNOSIS One year status post left reverse shoulder arthroplasty done by Dr. Guillaume TREATMENT PLAN Overall, patient is doing okay. Continue to increase activities as tolerated. See him back in a year, sooner if needed. All questions answered today. FOLLOW UP One year with new left shoulder x-rays My total encounter time on 06/12/2023 was 15 minutes which was spent in the activities documented inthe note. This includes time spent prior to the visit and after the visit in direct care of the patient. This time does not include time spent in any separately reportable services. French Quezada MD Warehouse Record Clerk of Orthopedic Surgery Shoulder and Elbow Service [facility] Orthopedics [facility] Dr. French Quezada dictating using Fluency Direct. Hand Blocker variances may occur. ECUTTER documented in this encounter Plan of Treatment Not on file documented as of this encounter Results * XR Shoulder Left 2 or More Views (06/12/2023 9:44 AM STONECUTTER) Anatomical Region Laterality Modality Upper Extremities, Shoulder Left Comp uted Radiography 06/12/2023 10:4 7 AM STONECUTTER Impressions 06/12/2023 1:55 PM STONECUTTER Stable reverse ltnc-zgq-fokaqc left total shoulder arthroplasty in unchanged position. Dictated by: Marty Saab MD The radiology attending physician has personally reviewed this study, and had reviewed and/or edited this written report and agrees with it. Electronically signed by: Alek Bonilla MD Narrative 06/12/2023 1:55 PM STONECUTTER EXAMINATION: XR SHOULDER LEFT 2 OR MORE VIEWS HISTORY: ??Left shoulder pain FINDINGS: 4 radiographs of the left shoulder submitted for interpretation. Comparison is made to radiographs 09/14/2022. ??Stable postsurgical changes of left reverse qmth-byi-kaydue total shoulder arthroplasty in unchanged position. ??Hardware is intact. ??No periprosthetic fracture or osteolysis. ??A large subacromial spur is again noted. There is mild acromioclavicular joint osteoarthritis. Procedure Note Alek Bonilla MD - 06/12/2023 EXAMINATION: XR SHOULDER LEFT 2 OR MORE VIEWS HISTORY: Left shoulder pain FINDINGS: 4 radiographs of the left shoulder submitted for interpretation. Comparison is made to radiographs 09/14/2022. Stable postsurgical changes of left reverse ohsb-zmq-fojwkx total shoulder arthroplasty in unchanged position. Hardware is intact. No periprosthetic fracture or osteolysis. A large subacromial spur is again noted. There is mild acromioclavicular joint osteoarthritis. IMPRESSION: Stable reverse ohha-yef-gpnysp left total shoulder arthroplasty in unchanged position. Dictated by: Marty Saab MD The radiology attending physician has personally reviewed this study, and had reviewed and/or edited this written report and agrees with it. Electronically signed by: Alek Bonilla MD us French Quezada MD IMG XR PROCEDURES Fin al Result documented in this encounter Visit Diagnoses Diagnosis Rotator cuff arthropathy, left- Primary Follow-up examination after orthopedic surgery Follow-up examination after orthopedic surgery documented in this encounter Care Teams Entry Level Web Developer Relationship Specialty Start Date End Date Faisal Richardson DO [address] [place] [address] PCP - General Family Medicine 04/27/22 documented as of this encounter
--- OUTSIDE RECORDS SUMMARY | 2024-07-28 01:07 | XMS_ITS | Encounter Summary ---
Author Organization [facility] Address [address] [place] [address] Phone Care Team Providers Care Reed Or Wind Instrument Repairer Name Role Phone Faisal Richardson DO Primary Care Provider Reason for Referral * Diagnostic Imaging (Routine) - Closed Specialty Diagnoses / Procedures Referred By Kd t Referred To Contact Diagnoses Follow-up examination after orthopedic surgery S/P reverse total shoulder arthroplasty, left Procedures XR Shoulder Left 2 or More Views Guille Guillaume MD Phone: tel: fax: [address] [address] Referral ID Status Reason Start Date Expiration Date Visits Re quested Visits Authorized [id number] Closed 05/12/2022 06/11/2023 1 1 Reason for Visit * Reason Comments Post-op Follow-up Encounter Details Date Type Department Care Team (Late st Contact Info) Description 05/15/2022 10:50 AM CDT Office Visit [facility] Orthopaedic Surgery [address] [facility] 12th [place] [address] [place] [phone] Guille Guillaume MD [address] [facility] [address] [place] [address] Follow-up examination after orthopedic surgery (Primary Dx); S/P reverse total shoulder arthroplasty, left; Rotator cuff tendonitis, left; Rotator cuff arthropathy, left; Left shoulder pain, unspecified chronicity Social History Tobacco Use Types Packs/Day Years [...] Progress Notes * Guille Guillaume MD - 05/15/2022 10:50 AM CDT POST OP VISIT INTERIM HISTORY Date of Surgery: 05/02/2022 Procedure: Left Reverse Total Shoulder Arthroplasty - Left Jose Rutledge returns for routine postoperative follow-up after surgery. Pain has been well-controlled. PHYSICAL EXAMINATION No acute distress, alert and oriented X 3. Incision healing is noted with no sign of infection. Deltoid Fires well. There is full symmetric range of motion of the elbow. Distal motor and sensory function is normal. REVIEW OF X-RAYS/STUDIES X-rays were performed today and reviewed personally. X-rays demonstrate a stable reverse shoulder arthroplasty construct. IMPRESSION/DIAGNOSIS Doing well now 2 weeks after Reverse shoulder arthroplasty TREATMENT/PLAN We will continue with routine postoperative rehabilitation. We will begin active-assisted elevationexercises. We reviewed precautions and they voiced understanding. All questions were answered today. FOLLOW UP 4 weeks Guille Guillaume MD, MSc Selvage Machine Operator of Orthopedic Surgery Shoulder and Elbow Service [facility] Orthopedics [facility] Dr. Guille Guillaume dictating using Fluency Direct. Cigar Head Piercer variances may occur. documented in this encounter Plan of Treatment Not on file documented as of this encounter Results * XR Shoulder Left 2 or More Views (05/15/2022 10:47 AM CDT) Anatomical Region Laterality Modality Upper Extremities, Shoulder Left Comp uted Radiography 05/15/2022 11:1 0 AM CDT Impressions 05/15/2022 11:10 AM CDT 1. Unchanged reverse left total shoulder arthroplasty in near-anatomic alignment. Electronically signed by: Jaycee Fierro MD Narrative 05/15/2022 11:10 AM CDT EXAMINATION: XR SHOULDER LEFT 2 OR MORE VIEWS HISTORY: ??Shoulder arthroplasty. FINDINGS: 4 views of the left shoulder are reviewed with comparison to 05/02/2022. There is an unchanged reverse left total shoulder of posterior near-anatomic alignment. ??There is no periprosthetic fracture or component migration. ??There is persistent deep soft tissue gas. ??A moderate subacromial spur and mild acromioclavicular osteoarthritis are unchanged. Procedure Note Jaycee Fierro MD - 05/15/2022 EXAMINATION: XR SHOULDER LEFT 2 OR MORE VIEWS HISTORY: Shoulder arthroplasty. FINDINGS: 4 views of the left shoulder are reviewed with comparison to 05/02/2022. There is an unchanged reverse left total shoulder of posterior near-anatomic alignment. There is no periprosthetic fracture or component migration. There is persistent deep soft tissue gas. A moderate subacromial spur and mild acromioclavicular osteoarthritis are unchanged. IMPRESSION: 1. Unchanged reverse left total shoulder arthroplasty in near-anatomic alignment. Electronically signed by: Jaycee Fierro MD Guille Guillaume MD IMG XR PROCEDURES Rowena l Result documented in this encounter Visit Diagnoses Diagnosis Follow-up examination after orthopedic surgery- Primary S/P reverse total shoulder arthroplasty, left Rotator cuff tendonitis, left Rotator cuff arthropathy, left Left shoulder pain, unspecified chronicity Follow-up examination after orthopedic surgery S/P reverse total shoulder arthroplasty, left documented in this encounter Care Teams Reed Or Wind Instrument Repairer Relationship Specialty Start Date End Date Faisal Richardson DO [address] [place] [address] PCP - General Family Medicine 04/27/22 documented as of this encounter
--- OUTSIDE RECORDS SUMMARY | 2024-07-28 01:07 | XMS_ITS | Encounter Summary ---
Author Organization [facility] Address [address] [place] [address] Care Team Providers Care Operator Specialist Communications Name Role Phone Faisal Richardson DO Primary Care Provider Reason for Referral * Diagnostic Imaging (Routine) - Closed Specialty Diagnoses / Procedures Referred By Contac t Referred To Contact Diagnoses Follow-up examination after orthopedic surgery S/P reverse total shoulder arthroplasty, left Procedures XR Shoulder Left 2 or More Views French Quezada MD [address] [email or web address] [address] Phone: tel: fax: [address] [phone] Referral ID Status Reason Start Date Expiration Date Visits Re quested Visits Authorized [id number] Closed 09/13/2022 10/13/2023 1 1 IC WORKER Reason for Visit * Diagnostic Imaging (Routine) - Closed Specialty Diagnoses / Procedures Referred By Contac t Referred To Contact Diagnoses Follow-up examination after orthopedic surgery S/P reverse total shoulder arthroplasty, left Procedures XR Shoulder Left 2 or More Views French Quezada MD [address] [email or web address] [address] Phone: tel: fax: [facility] [address] [place] [address] Referral ID Status Reason Start Date Expiration Date Visits Re quested Visits Authorized [id number] Closed 09/13/2022 10/13/2023 1 1 Encounter Details Date Type Department Care Team (Latest Contact Info) Description 09/14/2022 9:04 AM MOSAIC WORKER - 09/14/2022 11:59 PM MOSAIC WORKER Hospital Encounter [facility] [address] [place] [address] Follow-up examination after orthopedic surgery; S/P reverse total shoulder arthroplasty, left Discharge Disposition: Discharge to home or self care Social History Tobacco Use Types Packs/Day Years [...] this encounter Medications at Time of Discharge acetaminophen 500 mg capsuleIndications:P ain Take 2 capsules (1,000 mg total) by mouth every 6 (six) hours 100 tablet 05/03/2022 amLODIPine (NORVASC) 5 mg tablet Take 5 mg by mouth every morning 03/05/2022 carvediloL (COREG) 25 mg tablet Take 25 mg by mouth 2 (two) times a day 03/05/2022 cloNIDine (CATAPRES) 0.1 mg tablet Take 0.1 mg by mouth 2 (two) times a day 03/05/2022 clopidogreL (PLAVIX) 75 mg tablet Take 75 mg by mouth every morning 03/05/2022 cyclobenzaprine (FLEXERIL) 10 mg tablet Take 10 mg by mouth 2 (two) times a day 03/05/2022 docusate sodium (COLACE) 100 mg capsuleIndications:c onstipation Take 1 capsule (100 mg total) by mouth 2 (two) times a day 30 capsule 05/03/2022 losartan-hydroCHLORO thiazide (HYZAAR) 100-12.5 mg per tablet Take 1 tablet by mouth every morning 03/05/2022 metFORMIN (GLUCOPHAGE) 1,000 mg tablet Take 1,000 mg by mouth 2 (two) times a day 03/05/2022 multivit-min/folic/v it K/lycop (ONE-A-DAY MEN'S MULTIVITAMIN ORAL) Take by mouth every morning 03/28/2019 ondansetron ODT (ZOFRAN-ODT) 4 mg disintegrating tablet Take 4 mg by mouth as needed 01/29/2022 oxyCODONE (ROXICODONE) 5 mg immediate release tabletIndications:Pa in Take 1 tablet (5 mg total) by mouth every 4 (four) hours as needed for pain 40 tablet 05/03/2022 rosuvastatin (CRESTOR) 20 mg tablet Take 20 mg by mouth every morning 03/05/2022 Trulicity 1.5 mg/0.5 mL pen injector Inject under the skin once a week Mondays03/05/2022 documented as of this encounter Discharge Disposition Disposition Code Departure Means Destination Discharge to home or self care documented in this encounter Plan of Treatment Not on file documented as of this encounter Procedures Procedure Name Priority Date/Time Associated Diagnosis Comments XR SHOULDER LEFT 2 OR MORE VIEWS Schedule Routine, Read Routine (OP Routine) 09/14/2022 9:14 AM MOSAIC WORKER Follow-up examination after orthopedic surgery S/P reverse total shoulder arthroplasty, left documented in this encounter Results * XR Shoulder Left 2 or More Views (09/14/2022 9:14 AM MOSAIC WORKER) Anatomical Region Laterality Modality Upper Extremities, Shoulder Left Comp uted Radiography 09/14/2022 9:31 AM MOSAIC WORKER Impressions 09/14/2022 5:02 PM MOSAIC WORKER Unchanged reverse pzmv-alj-hzevmz left total shoulder arthroplasty in near-anatomic position. Dictated by: Gwendolyn Ferguson M.D. The radiology attending physician has personally reviewed this study, and had reviewed and/or edited this written report and agrees with it. Electronically signed by: Chandan Gama MD Narrative 09/14/2022 5:02 PM MOSAIC WORKER EXAMINATION: XR SHOULDER LEFT 2 OR MORE VIEWS HISTORY: ??Left shoulder arthroplasty follow-up FINDINGS: 4 radiographs of the left shoulder are provided for interpretation. Comparison is made with prior radiographs dated 06/12/2022. Unchanged reverse mlqc-oeb-aapavh left total shoulder arthroplasty in near-anatomic position. ??No periprosthetic fracture or osteolysis. No component migration. ??A large subacromial spur is again noted. Unchanged mild acromioclavicular joint osteoarthritis. Procedure Note Chandan Gama MD - 09/14/2022 EXAMINATION: XR SHOULDER LEFT 2 OR MORE VIEWS HISTORY: Left shoulder arthroplasty follow-up FINDINGS: 4 radiographs of the left shoulder are provided for interpretation. Comparison is made with prior radiographs dated 06/12/2022. Unchanged reverse ylch-nnp-wdwqcf left total shoulder arthroplasty in near-anatomic position. No periprosthetic fracture or osteolysis. No component migration. A large subacromial spur is again noted. Unchanged mild acromioclavicular joint osteoarthritis. IMPRESSION: Unchanged reverse cvfl-zzj-xyyvzw left total shoulder arthroplasty in near-anatomic position. Dictated by: Gwendolyn Ferguson M.D. The radiology attending physician has personally reviewed this study, and had reviewed and/or edited this written report and agrees with it. Electronically signed by: Chandan Gama MD French Quezada MD IMG XR PROCEDURES Fin al Result documented in this encounter Visit Diagnoses Diagnosis Follow-up examination after orthopedic surgery S/P reverse total shoulder arthroplasty, left documented in this encounter Care Teams Operator Specialist Communications Relationship Specialty Start Date End Date Faisal Richardson DO [address] [place] [address] PCP - General Family Medicine 04/27/22 documented as of this encounter
--- OUTSIDE RECORDS SUMMARY | 2024-07-28 01:07 | XMS_ITS | Clinical Summary ---
Author Organization [facility] Address [address] [place] [address] Care Team Providers Care Procurement Agent Name Role Phone DebraFaisal Finch Primary Care Provider Allergies Active Allergy Reactions Criticality Noted Date Comments Penicillins Angioedema,Hives,Rash High 03/28/1984 Medications amLODIPine (NORVASC) 5 mg tablet Take 5 mg by mouth every morning 2 Active clopidogreL (PLAVIX) 75 mg tablet Take 75 mg by mouth every morning 2 Active carvediloL (COREG) 25 mg tablet Take 25 mg by mouth 2 (two) times a day 2 Active cloNIDine (CATAPRES) 0.1 mg tablet Take 0.1 mg by mouth 2 (two) times a day 2 Active cyclobenzaprine (FLEXERIL) 10 mg tablet Take 10 mg by mouth 2 (two) times a day 2 Active Trulicity 1.5 mg/0.5 mL pen injector Inject under the skin once a week Mondays 2 Active losartan-hydroCHLOR Othiazide (HYZAAR) 100-12.5 mg per tablet Take 1 tablet by mouth every morning 2 Active metFORMIN (GLUCOPHAGE) 1,000 mg tablet Take 1,000 mg by mouth 2 (two) times a day 2 Active multivit-min/folic/ vit K/lycop (ONE-A-DAY MEN'S MULTIVITAMIN ORAL) Take by mouth every morning 9 Active ondansetron ODT (ZOFRAN-ODT) 4 mg disintegrating tablet Take 4 mg by mouth as needed 2 Active rosuvastatin (CRESTOR) 20 mg tablet Take 20 mg by mouth every morning 2 Active ergocalciferol (VITAMIN D) 50,000 unit capsuleIndications: Vitamin D Deficiency Take 1 capsule (50,000 Units total) by mouth once a week 12 capsule 2 Active oxyCODONE (ROXICODONE) 5 mg immediate release tabletIndications:P ain Take 1 tablet (5 mg total) by mouth every 4 (four) hours as needed for pain 40 tablet 2 Active acetaminophen 500 mg capsuleIndications: Pain Take 2 capsules (1,000 mg total) by mouth every 6 (six) hours 100 tablet 2 Active celecoxib (CeleBREX) 200 mg capsuleIndications: Pain Take 1 capsule (200 mg total) by mouth 2 (two) times a day for 14 days 28 capsule 2 Active docusate sodium (COLACE) 100 mg capsuleIndications: constipation Take 1 capsule (100 mg total) by mouth 2 (two) times a day 30 capsule 2 Active Active Problems Problem Noted Date Diagnosed Date Left rotator cuff tear arthropathy 05/02/2022 Tear of left rotator cuff 03/14/2022 Overview (03/14/2022): Added automatically from request for surgery [id number] Surgical History Surgery Date Site/Laterality Comments FLUORO GUIDED INJECTION SHOULDER RIGHT 04/03/2022 [facility] Medical History Medical History Date Comments Sleep apnea Hypertension Type 2 diabetes mellitus (HCC) Family History Medical History Relation Name Comments Cancer Father Family history of malignant neoplasm - (Added by HAYDEN Conv) Cancer Mother Family history of malignant neoplasm - (Added by HAYDEN Conv) Anesthesia problems Neg Hx Malig Hypertension Neg Hx Malig Hyperthermia Neg Hx Pseudochol deficiency Neg Hx Relation Name Status Comments Father Mother Social History Tobacco Use Types Packs/Day Years Used Date Smoking Tobacco: Never Smokeless Tobacco: Never Tobacco Cessation:Counseling Given: Not Answered AUDIT-C Answer Date Recorded Q1: How often [...] on file Sexual Orientation Not on file Obstetrics History Last Filed Vital Signs Vital Sign Reading Time Taken Comments Blood Pressure 123/63 05/03/2022 8:28 AM CDT Pulse 72 05/03/2022 8:28 AM CDT Temperature 37.1 ??C (98.7 ??F) 05/03/2022 7:42 AM CD T Respiratory Rate 18 05/03/2022 7:42 AM CDT Oxygen Saturation 95% 05/03/2022 8:28 AM CDT Inhaled Oxygen Concentration - - Weight 106.7 kg (235 lb 3.7 oz) 022 11:35 AM CDT Height 182.9 cm (6') 05/02/2022 11:35 AM CDT Body Mass Index 31.9 05/02/2022 11:35 AM CDT Plan of Treatment Health Maintenance Due Date Last Done Comments Colon Cancer Screening-Colonoscopy 1964 Depression Screening 1964 Hepatitis C Screening 1964 Prostate Cancer Screening-PSA 1964 Hepatitis B Screening 1982 Regular Well Visit/Exam 18-64 1982 Zoster Vaccine (1 of 2) 2014 Covid-19 Vaccine ( - 2023-2 5 season) 2024 07/13/2021, 11/04/2020, 10/14/2020 Influenza Vaccine (#1) 2024 DTaP/Tdap/Td Vaccine (2 - Td or Tdap) 10/26/2031 10/25/2021 Pneumococcal vaccine <65 Aged Out No longer eligible based on patient's age to complete this topic Medical Devices Implanted Type Area Hadoop Architect Device Identifier Shelf Expiration Date Model / Serial / Lot Dep [employer] Glenosphere Xtend Lateralized 42mm +4mm Standard [id number] - [id number] Implanted:Qty: 1 on 05/02/2022 by Guille Guillaume [facility] [employer] [facility] [id number] 01/03/2027 [id number] / / Depuy [employer] Delta Xtend 4.5mm 24mm Lock Shoulder Glenoid Screw Bone Metaglene [id number] - [id number] Implanted:Qty: 1 on 05/02/2022 by Guille Guillaume MD at [facility] [employer] [facility] [id number] 04/05/2026 [id number] / / Depuy [employer] [facility] Delta Xtend 4.5mm 48mm Lock Shoulder Glenoid Screw Bone Metaglene [id number] - [id number] Implanted:Qty: 1 on 05/02/2022 by Guille Guillaume MD at [facility] [employer] [facility] [id number] 07/05/2026 [id number] / / Depuy [employer] [facility] Delta Xtend 27mm Cementless Shoulder Standard Component Glenoid Latex Free [id number] - [id number] Implanted:Qty: 1 on 05/02/2022 by Guille Guillaume MD at [facility] [employer] [facility] 12/04/2031 [id number] / / Depuy [employer] Delta Xtend 4.5mm 36mm Lock Shoulder Glenoid Screw Bone Metaglene [id number] - [id number] Implanted:Qty: 1 on 05/02/2022 by Guille Guillaume MD at [facility] [employer] [facility] 01/03/2027 [id number] / / Depuy [employer] Implant Shldr Xtend Modecc 145epi Por Sz1 Lt [id number] - [id number] Implanted:Qty: 1 on 05/02/2022 by Guille Guillaume MD at [facility] [employer] [facility] 11/03/2030 [id number] / / Depuy [employer] Global Unite 10mm 113mm Modular Shoulder Standard Stem Humeral [id number] - [id number] Implanted:Qty: 1 on 05/02/2022 by Guille Guillaume MD at [facility] [employer] 02/03/2032 [id number] / / Depuy [employer] Delta Xtend 42mm Shoulder +3mm Standard Cup Humeral Polyethylene Latex Free [id number] - [id number] Implanted:Qty: 1 on 05/02/2022 by Guille Guillaume MD at [facility] [employer] 01/30/2027 [id number] / / Insurance HE[employer] PPO POS HE[employer]LINK PPO POS HE[employer]LINK OPEN ACCESS HEALTHLINK OPEN ACCESS HEALTHLINK HMO Advance Directives For more information, please contact: [phone] * Full Code (Latest Code Status on File) Date Activated Date Inactivated Comments 05/02/2022 11:32 AM 05/03/2022 4:06 PM Care Teams Procurement Agent Relationship Specialty Start Date End Date Faisal Richardson DO [address] [place] [address] PCP - General Family Medicine 04/27/22
--- OUTSIDE RECORDS SUMMARY | 2024-07-28 01:07 | XMS_ITS | Encounter Summary ---
Author Organization [facility] Address [address] [place] [address] Care Team Providers Care Cold Working Supervisor Name Role Phone Faisal Richardson DO Primary Care Provider Reason for Referral * Diagnostic Imaging (Routine) - Closed Specialty Diagnoses / Procedures Referred By Contac t Referred To Contact Diagnoses Follow-up examination after orthopedic surgery Rotator cuff arthropathy, left Procedures XR Shoulder Left 2 or More Views French Quezada MD [address] [facility] [place] [address] Phone: tel: fax: [facility] Referral ID Status Reason Start Date Expiration Date Visits Re quested Visits Authorized [id number] Closed 06/11/2023 07/10/2024 1 1 ICE STATION CONSOLE OPERATOR Reason for Visit * Diagnostic Imaging (Routine) - Closed Specialty Diagnoses / Procedures Referred By Contac t Referred To Contact Diagnoses Follow-up examination after orthopedic surgery Rotator cuff arthropathy, left Procedures XR Shoulder Left 2 or More Views French Quezada MD [address] [facility] [address] [place] [id number] Phone: tel: fax: [facility] Referral ID Status Reason Start Date Expiration Date Visits Re quested Visits Authorized [id number] Closed 06/11/2023 07/10/2024 1 1 Encounter Details Date Type Department Care Team (Late st Contact Info) Description 06/12/2023 9:35 AM SERVICE STATION CONSOLE OPERATOR - 06/12/2023 11:59 PM SERVICE STATION CONSOLE OPERATOR Hospital Encounter [facility] Radiology at [facility] [address] [place] [address] French Quezada MD [address] [place] [address] Follow-up examination after orthopedic surgery Discharge Disposition: Discharge to home or self [...] VIEWS Schedule Routine, Read Routine (OP Routine) 06/12/2023 9:44 AM SERVICE STATION CONSOLE OPERATOR Follow-up examination after orthopedic surgery documented in this encounter Results * XR Shoulder Left 2 or More Views (06/12/2023 9:44 AM SERVICE STATION CONSOLE OPERATOR) Anatomical Region Laterality Modality Upper Extremities, Shoulder Left Comp uted Radiography 06/12/2023 10:4 7 AM SERVICE STATION CONSOLE OPERATOR Impressions 06/12/2023 1:55 PM SERVICE STATION CONSOLE OPERATOR 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 Dictated by: Marty Saab MD The radiology attending physician has personally reviewed this study, and had reviewed and/or edited this written report and agrees with it. Electronically signed by: Alek Bonilla MD Narrative 06/12/2023 1:55 PM SERVICE STATION CONSOLE OPERATOR EXAMINATION: XR SHOULDER LEFT 2 OR MORE VIEWS HISTORY: ??Left shoulder pain FINDINGS: 4 radiographs of the left shoulder submitted for interpretation. Comparison is made to radiographs 09/14/2022. ??Stable postsurgical changes of left reverse injj-uqo-wjojeq total shoulder arthroplasty in unchanged position. ??Hardware [...] 09/14/2022. Stable postsurgical changes of left reverse cnbd-ybo-oandni total shoulder arthroplasty in unchanged position. Hardware is intact. No periprosthetic fracture or osteolysis. A large subacromial spur is again noted. There is mild acromioclavicular joint osteoarthritis. IMPRESSION: Stable reverse efpo-jmw-mgytep left total shoulder arthroplasty in unchanged position. Dictated by: Marty Saab MD The radiology attending physician has personally reviewed this study, and had reviewed and/or edited this written report and agrees with it. Electronically signed by: Alek Bonilla MD French Quezada MD IMG XR PROCEDURES Fin al Result documented in this encounter Visit Diagnoses Diagnosis Follow-up examination after orthopedic surgery documented in this encounter Care Teams Cold Working Supervisor Relationship Specialty Start Date End Date Faisal Richardson DO [address] [place] [address] PCP - General Family Medicine 04/27/22 documented as of this encounter
--- OUTSIDE RECORDS SUMMARY | 2024-07-28 01:07 | XMS_ITS | Encounter Summary ---
Author Organization [facility] Address [address] [place] [address] Care Team Providers Care Director Search Name Role Phone Faisal Richardson Primary Care Provider Encounter Details Date Type Department Care Team (Late st Contact Info) Description [address] [facility] [address] [facility] [address] [place], [place] [id number] Annemarie Jones NP [address] [place] [address] Social History Tobacco Use Types Packs/Day Years [...] on file documented as of this encounter Miscellaneous Notes * Telephone Encounter - Annemarie Jones NP - 2022 9:24 AM CDT PNC Follow-Up Telephone Call Catheter Placement Date: 05/02/22 Catheter location: Left Interscalene Infusion: Bupivacaine 0.2% @ 8 ml/hr Pain location: unknown Pain at rest: unknown/10 Pain with activity: unknown/10 Analgesia: unknown Side Effects: unknown Catheter Site Issues: unknown Plan: Continue current rate Left message Will attempt to follow-up with patient by phone tomorrow. Annemarie Jones NP Acute Pain Service Department of Anesthesiology [facility] 2022 9:24 AM documented in this encounter Plan of Treatment Not on file documented as of this encounter Visit Diagnoses Not on filedocumented in this encounter Care Teams Director Search Relationship Specialty Start Date End Date Faisal Richardson DO [address] [place] [address] PCP - General Family Medicine 04/27/22 documented as of this encounter
--- OUTSIDE RECORDS SUMMARY | 2024-07-28 01:07 | XMS_ITS | Encounter Summary ---
Author Organization [facility] Address [address] [place] [address] Care Team Providers Care Inspecting Supervisor Name Role Phone Faisal Richardson Finch Primary Care Provider Reason for Visit * Auth/Cert Specialty Diagnoses / Procedures Referred By Kd figueroa Referred To Contact Diagnoses Tear of left rotator cuff, unspecified tear extent, unspecified whether traumatic Tear of left rotator cuff, unspecified tear extent, unspecified whether traumatic [M75.102] Procedures OK RECONSTR TOTAL SHOULDER IMPLANT LEFT REVERSE TOTAL SHOULDER ARTHROPLASTY Referral ID Status Reason Start Date Expiration Date Visits Re quested Visits Authorized [id number] 1 1 Encounter Details Date Type Department Care Team (Latest Contact Info) Description 05/02/2022 5:20 AM CDT - 05/03/2022 11:54 AM CDT Hospital Encounter [address] [phone] Guille Guillaume MD [address] [facility] [address] [place] [address] Discharge Disposition: Discharge to home or self [...] Mass Index 31.9 05/02/2022 11:35 AM CDT documented in this encounter Discharge Summaries * Manuela Rahman, FAYE - 05/03/2022 10:20 AM CDT Inpatient Orthopedic Shoulder Discharge Summary Admitting Provider: Guille Guillaume MD Discharge Provider: Guille Guillaume,* Primary Care Physician at Discharge: Faisal Richardson DO [phone] Admission Date: 05/02/2022 Discharge Date: 05/03/2022 Primary Discharge Diagnosis: Tear of left rotator cuff Secondary Discharge Diagnosis: Principal Problem: Tear of left rotator cuff Active Problems: Left rotator cuff tear arthropathy Resolved Problems: No resolved hospital problems. DETAILS OF HOSPITAL STAY Date of Admission: 05/02/2022 Date of Discharge: 05/03/2022 Procedure Performed: Left Reverse Shoulder Arthroplasty Chief Complaint: left shoulder pain History of Present Illness: The patient is a 56 y.o. year old male cared for by Dr. Guille Guillaume. The patient was seen by the attending surgeon in clinic and was noted to have admission diagnosis as above. Patient's condition was recalcitrant to a period of nonoperative treatment. The risks, benefits, alternatives, and complications of the procedure performed were discussed with the patient at length prior to surgery. After a lengthy discussion, the patient elected to proceed with a surgical intervention given the significant influence on their quality of life. Informed consent was obtained prior to surgery. Patient was cleared by CPAP. Physical Exam: On the day of discharge, the patient was afebrile with stable vital signs. Surgical dressing was clean, dry, and intact. Pain was adequately maintained on oral medications. Hospital Course: The patient was admitted on 05/02/2022 and underwent the aforementioned procedure, which the patienttolerated well. Postoperatively, the patient was admitted to the orthopedic floor for postoperativepain management and post- procedure monitoring. They received DVT prophylaxis in the form of active care pumps and the patient will restart his home medication of Plavix after the patient???s nerve catheter is removed on post-op day 3. They received antibiotic prophylaxis for at least 24 hours. The patient worked with occupational therapy on left elbow, wrist, and hand range of motion as well as mobility and activities of daily living. Their pain was well controlled on oral narcotics which were provided. The patient also had a nerve catheter placed preoperatively by the Regional team and managed by the Acute PAIN team while on the Orthopedic Service. The patient was noted to be able to tolerate the oral intake of food and medication without any nausea or vomiting prior to discharge. The patient was able to void their bladder without any assistance. The patient was able to mobilize about the unit without the use of an assistive device. The patient remained stable throughout their hospitalization. The patient returned home in stable condition. The patient was discharged in stable condition. Operative Procedures Performed: Procedure(s): Procedure(s): LEFT REVERSE TOTAL SHOULDER ARTHROPLASTY Discharge Medications: Your medication list START taking these medications Instructions Last Dose Given Next Dose Due acetaminophen 500 mg capsule Replaces: acetaminophen ER 650 mg 8 hr tablet Take 2 capsules (1,000 mg total) by mouth every 6 (six) hours celecoxib 200 mg capsule Commonly known as: CeleBREX Take 1 capsule (200 mg total) by mouth 2 (two) times a day for 14 days docusate sodium 100 mg capsule Commonly known as: COLACE Take 1 capsule (100 mg total) by mouth 2 (two) times a day oxyCODONE 5 mg immediate release tablet Commonly known as: ROXICODONE Take 1 tablet (5 mg total) by mouth every 4 (four) hours as needed for pain CONTINUE taking these medications Instructions Last Dose Given Next Dose Due amLODIPine 5 mg tablet Commonly known as: NORVASC carvediloL 25 mg tablet Commonly known as: COREG cloNIDine 0.1 mg tablet Commonly known as: CATAPRES clopidogreL 75 mg tablet Commonly known as: PLAVIX cyclobenzaprine 10 mg tablet Commonly known as: FLEXERIL ergocalciferol 50,000 unit capsule Commonly known as: VITAMIN D Take 1 capsule (50,000 Units total) by mouth once a week losartan-hydroCHLOROthiazide 100-12.5 mg per tablet Commonly known as: HYZAAR metFORMIN 1,000 mg tablet Commonly known as: GLUCOPHAGE ondansetron ODT 4 mg disintegrating tablet Commonly known as: ZOFRAN-ODT ONE-A-DAY MEN'S MULTIVITAMIN ORAL rosuvastatin 20 mg tablet Commonly known as: CRESTOR Trulicity 1.5 mg/0.5 mL pen injector Generic drug: dulaglutide STOP taking these medications acetaminophen ER 650 mg 8 hr tablet Commonly known as: TYLENOL Replaced by: acetaminophen 500 mg capsule betamethasone dipropionate 0.05 % ointment Commonly known as: DIPROLENE diclofenac DR 75 mg EC tablet Commonly known as: VOLTAREN Where to Get Your Medications These medications were sent to [facility] [place], [place] - [address] [id number] celecoxib 200 mg capsule docusate sodium 100 mg capsule oxyCODONE 5 mg immediate release tablet Information about where to get these medications is not yet available Ask your nurse or doctor about these medications acetaminophen 500 mg capsule Follow Up: Future Appointments Date Time Provider Department Center 05/15/2022 10:50 AM Guille Guillaume MD [facility] Cosigned by Guille Guillaume MD at 05/03/2022 3:55 PM CDT documented in this encounter Discharge Instructions * Discharge Instructions* Mimi Soto MD - 05/02/2022 8:29 AM CDT Local Infusion Pain Management Pump (OnQ Pain Ball) WHAT YOU NEED TO KNOW: A local infusion pain management pump (ON-Q pump) is a balloon type pump filled with medicine to treat your pain for 2 to 5 days. You will get medicine called local anesthetic through the pump. This medicine numbs the area to decrease your pain before, during, or after surgery. It blocks the pain in the area of your procedure, giving you better pain relief than taking only a narcotic type medicine. With a ON-Q pump, you many need to take less pain medicine. The device pumps medicine through thecatheter to the place in your body where you need it. Healthcare providers will place a catheter before or after you have surgery. It may be placed near your surgery site. 2 TYPES OF SYSTEMS: A. ON-Q PAIN RELIEF SYSTEM WITH WUHFGM-S-DDEW DEVICE The zmmifq-p-iopb device is a flow controller that allows your doctor to adjust the amount of medicine you receive to best meet your needs. Your Avavbd-Z-Mdil device will be 2-14 ml/hr. WARNING: Do not change the flow rate on the Oujwrd-J-Shvj dial unless instructed by your doctor. Changing the flow rate without your doctor's instruction may result in the wrong dose of medicine delivered which could cause serious injury. Do not tape tubing to skin. The Iqsmcr-L-Namh device should be worn outside your clothing. B. ON-Q FIXED FLOW RATE Make sure that the lower part of the pump tubing with the flow controller is next to your skin. This will allow the pump to give medicine in the right amount of time. If you are using ice/cold therapy, place it away from the lower part of the pump tubing with the flow controller. HOW DOES THE ON-Q PUMP WORK? The pump is attached to a catheter (small tube near your procedure site). The pump automatically delivers the medicine at a very slow flow rate. Do not squeeze the pump. The pump has the force neededto deliver your medicine. The pump is completely portable. It may be clipped to your clothing or dressing or placed in a small carrying case. HOW DO I KNOW THE PUMP IS WORKING? The pump delivers your medication very slowly. It may take longer than 24 hours after your procedure to notice a change in the size and look of the pump. As the medication is delivered, the pump (ball) will gradually become smaller. Do not expect to see a change in the pump every hour. You will not see a fluid line or air space in the pump ball. The pump tubing will look clear and you will not see the medicine moving through the tubing. You should also take any other pain medicine as instructed by your doctor. WHEN IS MY PUMP EMPTY? Depending on the size of your pump, it may take 2-5 days to deliver all the medicine. All your medicine has been delivered when the ON-Q pump is no longer full. The outside bag will be flat and a hard tube can be felt in the middle of the pump. HOW TO CARE FOR MY ON-Q PUMP AT HOME: Make sure the clamp is open (moves freely on the tubing). Attach the pump to your clothing as directed. Keep the filter dry and open. Do not get soap on the filter. This can cause it to leak medicine. Donot put tape over the filter. Do not try to change the settings on your pump. Your pump has the right amount of medicine for you.Do not squeeze the pump, even if you think you are not getting enough medicine. Do not block the flow of medicine. Keep bandages loose where the catheter goes into your body. Tightly wrapped elastic bandages can decrease or stop the flow of medicine. Do not get the pump or catheter site wet. Do not put heat or ice packs onto your body near the flowcontroller. Moisture may build up and get the pump or catheter site wet. Ask your healthcare provider how to keep the area dry when you bathe. DO NOT SHOWER while pain catheter is in. Do not put pump under the covers. Keep pump on top of covers or on a nearby surface so that it doesnot become overheated. Avoid putting it on a bedpost. You want the pump tubing to be close to you and move with you. Do not place ice over the filter. WHAT SHOULD I DO WITH THE PUMP WHEN I'M SLEEPING? Place pump on bedside table or on top of bed covers. Do not place pump under bed covers, where the pump may become too warm. Do not place pump on the floor or hang pump from a bed post. WILL THE ON-Q PUMP CONTROL ALL OF MY PAIN? Patients experience different levels of pain. The On-Q system works with other medications or therapies your doctor may prescribe to manage your pain after surgery. With the On-Q system, you may needless narcotics and have better pain relief than with narcotics alone. TROUBLESHOOTING Tubing Disconnection: If the pump tubing accidentally becomes disconnected from your catheter. DO NOT reconnect it. Closethe clamp on your pump tubing and call your doctor for instructions. Leaking: If leaking from the pump or pump tubing occurs: Close the clamp on the tubing and call your doctor. IMPORTANT INFORMATION: Things to be aware of when using the On-Q pain relief system: Warning: The following symptoms or situations may represent a serious medical condition. Immediately close the clamp on the pump tubing, and call your doctor or 911 in case of an emergency to preventserious patient injury. Increase in pain Fever, chills, sweats Bowel or bladder changes Difficulty breathing Redness, warmth, discharge or excessive bleeding from the catheter site Pain, swelling or a large bruise around the catheter site Dizziness, lightheadedness Blurred vision Ringing, buzzing in your ears Metal taste in your mouth Numbness and/or tingling around your mouth, fingers or toes Drowsiness Confusion Catheter disconnects from he pump or leaking occurs at the pump connection. Catheter comes out. *If this occurs, just make sure the line is all of the way out (check for blacktip). DO NOT go to the Emergency Room as they can not put in back in place. Just make sure it is removed and throw all in trash. Rely on your pain pills if needed for pain. Numbness Be aware that you may experience loss of feeling at and around the surgical area. If numbness occurs, take proper measures to avoid injury. Be careful when placing hot or cold items on a numb area. Cautions Do not reuse. Protect the pump and catheter site from water according to your doctor's instructions. On-Q Catheter Removal Description: The catheter is a small tube near your incision site that is connected to your infusion pump. The color of the catheter may be clear or hannah. Removal Of Catheter: If your doctor has instructed you to remove the catheter, then follow their instructions keeping in mind these ma steps. Wash your hands thoroughly with soap and warm water. Dry thoroughly. Remove the dressing covering the catheter site. Remove any skin adhesive strips. Grasp the catheter close to the skin, and gently pull on the catheter. It should be easy to remove and not painful. Do not tug or quickly pull on the catheter during removal. If it becomes hard to remove or stretches, then STOP. Call your doctor. Continued pulling could break the catheter. Do not cut or pull hard to remove the catheter. WARNING: After you remove the catheter, check the catheter tip for the black marking to ensure the entire catheter was removed. Call your doctor if you don't see the black marking. Place a dressing over the catheter site as instructed by your doctor. 24 Hour Product Support Hotline 311.086.5754 or [employer] Follow up with your healthcare provider as directed: Write down your questions so you remember to ask them during your visits. ?? 2017 [employer] Information is for End User's use only and may not be sold, redistributed or otherwise used for commercial purposes. All illustrations and images included in CareNotes?? are the copyrighted property of [employer] or [employer]. The above information is an tailor's aide only. It is not intended as medical advice for individual conditions or treatments. Talk to your doctor, nurse or pharmacist before following any medical regimen to see if it is safe and effective for you. If you have any emergent questions, please call the Acute Pain Service at [facility] @ [phone]. documented in this encounter Medications at Time of Discharge acetaminophen 500 mg capsuleIndications:P ain Take 2 capsules (1,000 mg total) by mouth every 6 (six) hours 100 tablet 05/03/2022 amLODIPine (NORVASC) 5 mg tablet Take 5 mg by mouth every morning 03/05/2022 carvediloL (COREG) 25 mg tablet Take 25 mg by mouth 2 (two) times a day 03/05/2022 celecoxib (CeleBREX) 200 mg capsuleIndications:P ain Take 1 capsule (200 mg total) by mouth 2 (two) times a day for 14 days 28 capsule 05/03/2022 cloNIDine (CATAPRES) 0.1 mg tablet Take 0.1 [...] (two) times a day 30 capsule 05/03/2022 ergocalciferol (VITAMIN D) 50,000 unit capsuleIndications:V itamin D Deficiency Take 1 capsule (50,000 Units total) by mouth once a week 12 capsule 05/02/2022 losartan-hydroCHLORO thiazide (HYZAAR) 100-12.5 mg per tablet [...] week Mondays03/05/2022 documented as of this encounter Ordered Prescriptions Prescription Sig Dispense Quantity Refills Last Filled Start Date End Date docusate sodium (COLACE) 100 mg capsuleIndications :constipation Take 1 capsule (100 mg total) by mouth 2 (two) times a day 30 capsule 05/03/2022 celecoxib (CeleBREX) 200 mg capsuleIndications :Pain Take 1 capsule (200 mg total) by mouth 2 (two) times a day for 14 days 28 capsule 05/03/2022 acetaminophen 500 mg capsuleIndications :Pain Take 2 capsules (1,000 mg total) by mouth every 6 (six) hours 100 tablet 05/03/2022 oxyCODONE (ROXICODONE) 5 mg immediate release tabletIndications: Pain Take 1 tablet (5 mg total) by mouth every 4 (four) hours as needed for pain 40 tablet 05/03/2022 documented in this encounter Discharge Disposition Disposition Code Departure Means Destination Discharge to home or self care documented in this encounter Progress Notes * Casandra Khanna MD - 05/03/2022 11:54 AM CDT [facility] Follow-Up Telephone Call Catheter Placement Date: 05/02 Catheter location: Left Interscalene Infusion: Bupivacaine 0.2% @ 6 ml/hr - catheter has since been removed, but was previously running at this rate Pain at rest: 08/15 Pain with activity: 09/15 Analgesia: Excellent Side Effects: None Catheter Site Issues: No issues Plan: Catheter has been removed successfully by patient Catheter removed, tip intact. Will no longer call patient. Casandra Khanna MD Acute Pain Service; [facility] 05/06/2022 12:03 PM Cosigned by Keke Soni MD PhD at 05/06/2022 12:25 PM CDT * Marguerite Thurman RN - 05/03/2022 10:54 AM CDT 05/02/22 1411 Discharge Summary Chart reviewed For Medical Necessity Does patient have a planned readmission to hospital planned? No Discharge Disposition Home Equipment/Provider Needs No Home Needs Identified Discharge Additional Assistance Does the patient need discharge transport arranged? No Post Discharge Care Provider Post Discharge Care Plan Next level of care provider has access to complete EMR Per medical team, patient is medically stable for discharge at this time. Follow up appointment hasbeen scheduled. Patient and/or family are agreeable with the plan. If any further discharge needs arise, please contact the covering case managers. Family to provide transportation home. Pt has home DME. No other needs identified at this time. * Annemarie Jones, DIRECTOR OF PROGRAMMING - 05/03/2022 10:50 AM CDT Images from the original note were not included. Pain Service Analgesic Catheter Follow up Jose Rutledge, [id number] History Mr. Jose Rutledge is a 56 y.o. male with tear of left rotator cuff who presents with Post operativeacute shoulder pain now s/p LEFT REVERSE TOTAL SHOULDER ARTHROPLASTY (L) on 05/02/2022. POD#: 1 Day Post-Op Nerve Catheter Location: Left Interscalene Catheter Catheter Day#: 2 Surgery: LEFT REVERSE TOTAL SHOULDER ARTHROPLASTY (L) on 05/02/2022 Subjective No acute events overnight. Hemodynamically stable. Patient observed sitting up in chair. He states his pain is 5/10. His will be home with him. He denies any blurry vision, metallic taste, circumoral numbness, tinnitus, headache, new weakness, or dizziness. He is to start AC on POD#3. Total Opioid Use: none Verbal Pain Score (0-10): per RN charting at 0900 Pain Score: 0 - No pain Pain Location: Shoulder Dietary Order: Dietary Orders (From admission, onward) Start Ordered 05/02/22 2100 Bedtime snack At bedtime Comments: If bedtime BG is less than 100mg/dl, give patient a 15 gram carbohydrate snack. 05/02/22 1131 05/02/22 1132 Adult Diet Restricted; Consistent Carbohydrate Diet effective now Question Answer Comment ([facility]) Diet type Restricted Diabetic: Consistent Carbohydrate 05/02/22 1131 Objective Temp: [97.5 ??F (36.4 ??C)-98.7 ??F (37.1 ??C)] 98.7 ??F (37.1 ??C) Pulse: [56-73] 72 Resp: [16-18] 18 BP: (123-143)/(60-74) 123/63 Arterial Line BP: (168-170)/(77) 170/77 FiO2 (%): [21 %] 21 % MAP (mmHg): 78 Oxygen Therapy SpO2: 95 % Pulse Oximetry Type: Continuous Patient Activity: At rest O2 Therapy: None (Room air) FiO2 (%): 21 % Labs: Recent Labs Lab Units 05/03/22 0752 WBC K/cumm 6.9 HEMOGLOBIN g/dL 11.8* HEMATOCRIT % 35.3* PLATELETS K/cumm 133* Recent Labs Lab Units 05/03/22 0757 05/03/22 0643 SODIUM mmol/L -- 140 POTASSIUM PLASMA mmol/L -- 3.7 CHLORIDE mmol/L -- 106 CO2 mmol/L -- 27 ANIONGAP mmol/L -- 7 GLUCOSE mg/dL -- 157 POC GLUCOSE MONITOR mg/dL 140 -- BUN SERUM mg/dL -- 12 CREATININE mg/dL -- 0.66* CALCIUM mg/dL -- 9.0 Scheduled Medications: acetaminophen, 1,000 mg, oral, Q6H ANGEL amLODIPine, 5 mg, oral, QAM carvediloL, 25 mg, oral, BID celecoxib, 200 mg, oral, BID cloNIDine, 0.1 mg, oral, BID [Held by Provider] clopidogreL, 75 mg, oral, QAM cyclobenzaprine, 10 mg, oral, BID docusate sodium, 100 mg, oral, BID hydroCHLOROthiazide, 12.5 mg, oral, Daily insulin lispro, 0-4 Units, subcutaneous, Nightly insulin lispro, 0-5 Units, subcutaneous, TID with meals rosuvastatin, 20 mg, oral, QAM sodium chloride 0.9%, 0.5-20 mL, intra-catheter, Q8H ANGEL sodium chloride 0.9%, 0.5-20 mL, intra-catheter, Q8H ANGEL Continuous Medications: bupivacaine preservative free in 0.9% sodium chloride, 6 mL/hr Lactated Ringer's, 125 mL/hr, Last Rate: 125 mL/hr (05/02/22 1058) sodium chloride 0.9%, 50 mL/hr, Last Rate: Stopped (05/02/22 1055) PRN Medications: sodium chloride 0.9%, 30 mL Saline lock IV, AND sodium chloride 0.9%, 0.5-20 mL, 10 mL at 05/02/223 AND sodium chloride 0.9%, 0.5-20 mL AND sodium chloride 0.9%, 30 mL dextrose, 15 g OR dextrose, 250 mL glucagon, 1 mg ondansetron ODT, 4 mg OR ondansetron, 4 mg oxyCODONE, 5 mg sodium chloride 0.9%, 0.5-20 mL Peripheral Nerve Analgesics: Bupivacaine 0.2% 6mL/hour Catheter (site): [x] Non-tender and dressing intact [] Catheter dislodged Physical Exam: General: [x] No acute distress HEENT: [x] Normocephalic, atraumatic Respiratory: [x] Unlabored breathing Cardiovascular: [x] Regular rate and rhythm Abdomen: [x] Soft, non-tender Psychiatric: [x] Normal mood, affect, insight Skin: [x] No rashes or lesions Neuro: [x] Alert and oriented x 3 Motor: [x] Moves all extremities well ASSESSMENT Jose Rutledge is a 56 y.o. male who presents with Other acute post-procedural pain and Pain in the left shoulder. Impression: pain is moderately controlled Plan: [x] Continue multi-modal pain medication regimen as ordered. [x] Encourage pulmonary toilet [x] Continue bowel regimen Informed patient to make sure catheter is removed in am before starting AC in evening ( at least 6 hours) Systemic Analgesic: - continue oxycodone 5 mg every 4 hours PRN - continue APAP 1000 mg every 6 hours - continue cyclobenzaprine 10 mg BID Peripheral Nerve Local Anesthetic Infusion: - increase Bupivacaine Infusion to 8 ml/hr Thank You for involving us in the care of this patient [x] We will continue to follow [] We will sign off, please call if further pain management questions arise. [x] On Q-ball home teaching completed. Verbal and written instructions provided to patient. Signs of anesthetic toxicity discussed with patient. Patient verbalized understanding. [x] Plan of care done in collaboration with Dr. Soni [x] Plan of care discussed with Primary Service. Annemarie Jones NP Acute Pain Service Department of Anesthesiology [facility], [facility] [employer] If you have questions or concerns, please contact the [facility] post tronic machine operator to page the Pain Management service. After hours, this is not an in-house pager, please reserve non-urgent calls from [phone]. We are happy to address emergent calls 26/02. 05/03/22 10:50 AM For patients or family members viewing this note through [employer] programs: This note was written as a communication tool between healthcare providers and may contain technical language, terminology and abbreviations that is difficult to interpret without advanced medical training. If you have questions or concerns regarding what is written in this note, please request to speak with the primary medical team taking care of you or your family member or call your PCP for clarification. Please do not call the cell or pager numbers listed in this note, as the provider they are associated with may no longer be involved in your care. * Mimi Lopez, OT - 05/03/2022 9:18 AM CDT Occupational Therapy Occupational Therapy Initial Assessment NOTE:This is a summary note for the ma assessments completed during the evaluation session. For full details, review chart review for all flowsheets documented on by this Occupational Therapist on this date. Vital signs documented in vital signs flowsheet. Plan Plan Plan: Plan of care initiated, Discharge, If this is the last note, consider this the discharge summary OT Recommendation and Plan Recommendation/Plan OT Recommendation: Home with family, Home with 24 hour supervision (For initial discharge) OT Frequency: Discharge from this Service (0) Comments: Treatment: Therapist provided education and handout on how to complete ADLs while maintaining precautions. Patient indicated and demonstrated understanding. Therapist provided education andhandout on how to don/doff sling and don/doff a shirt. Patient indicated and demonstrated understanding. OT Equipment Recommended: Shower chair Progress: Discontinue OT OT - OK to Discharge: Yes OT Evaluation Complete: Yes General Information General Chart Reviewed: Yes Session Type: Evaluation (Initial discharge) OT Received On: 05/03/22 Safe Environment: Arm Band Checked, Call Light within Reach, Notified RN, Overbed Table within Reach (Patient sitting at the edge of the bed upon arrival and at the end of session with call light in reach.) Subjective: Agreeable to Therapy Family/Caregiver Present: No Occupational Therapy-Patient Goal: No goals for acute care setting. Precautions Precautions Precautions: Fall risk, Obstructive sleep apnea (Reverse shoulder arthroplasty) Weight Bearing Restrictions: Yes LUE Weight Bearing: Non-weight bearing Braces/Orthoses: Sling (with abduction wedge) Precaution Handout Issued: Yes Home Living Home Living Type of Home: House Home Layout: Two level, Able to live on main level with bedroom/bathroom Home Access: Stairs to enter with rails (Grab bar) Entrance Stairs-Rails: (Grab bar) Entrance Stairs-Number of Steps: 1 Bathroom Shower/Tub: Walk-in shower with threshold Bathroom Toilet: Raised Bathroom Equipment: Shower chair Home Mobility Equipment: Lift Chair Prior Function Prior Function Level of [place]: Independent with ADLs, Independent functional transfers, Independent with ambulation, Independent with homemaking with ambulation Lives With: Spouse Receives Help From: Spouse/Significant other (multimedia journalist assist post discharge) Driving: Yes Mode of Transportation: Car ADL Assistance: Independent Instrumental ADL (IADL) Assistance: Independent (Patient and spouse share responsibility for IADLs.) Vocational/Occupation: Unemployed (Patient reported he has been unable to work since his previous CVA.) Fall within the last 6 months: Yes Fall within the last 6 months comment: Patient reported one fall in the shower. Activities of Daily Living Grooming Grooming: Where assessed: Standing at sink Grooming: Level of assistance: Distant Supervision Grooming: Assistance with: (Safety) UE Dressing UE Dressing: Where assessed: Sitting, Edge of bed UE Dressing: Level of assistance: Standby Assist UE Dressing: Assistance with: Increased time to complete (Safety, verbal cues) LE Dressing LE Dressing: Where assessed: Sitting, Edge of bed, Standing LE Dressing: Level of assistance: Minimum Assist LE Dressing: Assistance with: Increased time to complete (Assist to adjust pants on left side.Education provided on adaptive strategies. Pt. stated spouse will assist. Pt. stated he will not wear socks at home. Education provided on how to don socks.) Toileting Toileting: Where assessed: Toilet Toileting: Level of assistance: Distant Supervision Toileting: Assistance with: (Safety) Toilet Transfers Toilet Transfer From: Bed Toilet Transfer Type: To and from Toilet Transfer to: Standard toilet Toilet Transfer Technique: Ambulating Toilet Transfer: Equipment: No device Toilet Transfers: Supervision Toilet Transfers Comments: Safety with use of grab bar Pain Pain Assessment Pain Assessment: 0-10 Pain Score: 5 - Moderate pain Pain Type: Surgical pain Pain Location: Shoulder Pain Orientation: Left Pain Interventions: RN Notified Cognition Cognition Arousal/Alertness: Alert Orientation : Oriented X4 (person, place, time, situation) Following Commands: Follows all commands and directions without difficulty Safety Judgment: Good awareness of safety precautions Compliance/Behavior: Easy to engage Short Blessed Test What year is it now?: Correct What month is it now?: Correct Repeat this name and address after me: Nikos Jones [address] [place] [address] Without looking at the clock, tell me what time it is: Correct-within one hour Count aloud backwards from 20-1: 0 Errors Say the months of the year backwards in reverse order: 1 Error Repeat the name and address I asked you to remember: 1 Error Short Blessed Total Score: 4 6 Clicks Daily Activity - 6 Clicks Putting on and taking off regular lower body clothing: A Little Bathing: A little Toileting: A little Putting on and taking off upper body clothing: A Little Personal Grooming: A little Eating Meals: None Total Score (range 6-24): 19 Score Interpretation: 19 Balance Static Sitting Balance Static Sitting-Balance Support: No upper extremity supported, Feet supported Static Sitting-Sitting Surface: Bed Static Sitting-Level of Assistance: Independent Dynamic Sitting Balance Dynamic Sitting-Balance Support: No upper extremity supported, Feet supported Dynamic Sitting-Balance: Reaching for objects Dynamic Sitting-Sitting Surface: Bed Dynamic Sitting-Level of Assistance: Independent Static Standing Balance Static Standing-Balance Support: No upper extremity supported Static Standing-Standing Surface: Floor Static Standing-Level of Assistance: Independent Dynamic Standing Balance Dynamic Standing-Balance Support: No upper extremity supported Dynamic Standing-Balance: Reaching for objects Dynamic Standing-Standing Surface: Floor Dynamic Standing-Level of Assistance: Distant supervision Dynamic Standing-Comments: Safety Transfers Transfers Transfer: Yes (Gait belt not used for out of bed activity.) Transfer 1 Transfer From 1: Sit Transfer Type 1: To and from Transfer to 1: Stand Technique 1: Sit to stand, Stand to sit Transfer Device 1: No device Transfer Level of Assistance 1: Distant supervision Trials/Comments 1: Safety Bed Mobility Bed Mobility Bed Mobility: No (Patient reported that he is able to sleep in his lift chair.) RUE Assessment RUE Assessment RUE Assessment: Within Functional Limits LUE Assessment LUE Assessment LUE Assessment: Exceptions to WFL (Not tested due to precautions.) Other Comments Other Comments Comments: Treatment: Therapist provided education and handout on how to complete ADLs while maintaining precautions. Patient indicated and demonstrated understanding. Therapist provided education andhandout on how to don/doff sling and don/doff a shirt. Patient indicated and demonstrated understanding. OT Goals Multi-Disciplinary Problems (from Occupational Therapy) Active Problems Problem: Instrumental Activities of Daily Living Start Date: 05/03/22 Goal Start Date Expected End Date End Date LTG - Patient will complete basic home making activities to return to independent functioning at home 05/03/22 06/10/22 -- Goal Details: Modified independent * Torrey Bonilla MD - 05/03/2022 7:43 AM CDT Orthopaedic Shoulder & Elbow Service Daily Progress Note Admit Date: 05/02/2022 Hospital Day: 0 [place] Procedure(s): L rTSA Interval History: NAEO. AFVSS. AM labs pending. Voiding. Tolerating PO. Block partially resolved. Pain controlled. Objective Vitals: 24hr Min/Max: Temp Min: 36 ??C (96.8 ??F) Max: 36.7 ??C (98 ??F) Pulse Min: 56 Max: 93 BP Min: 123/62 Max: 145/78 Resp Min: 16 Max: 21 SpO2 Min: 90 % Max: 100 % I/O last 2 completed shifts: In: 1695 [P.O.:220; I.V.:1475] Out: 430 [Urine:400; Blood:30] No intake/output data recorded. Physical Exam: Awake, alert, oriented No acute distress Breathing regular and unlabored Extremity LUE Dressing clean and dry No hematoma present Pre-operative block partially resolved. Does not fire deltoid 2/2 pre-operative nerve block Sensation decreased to light touch. in the median, radial, ulnar, axillary nerves Radial pulse on affected limb palpable Distal neurovascular exam: fires EPL, FPL, EDC, FDP2/5, IO Lab/Diagnostic Review: Recent Labs Lab Units 05/03/22 0643 05/02/22 1013 05/02/22 0615 SODIUM mmol/L 140 -- -- POTASSIUM PLASMA mmol/L 3.7 -- -- CHLORIDE mmol/L 106 -- -- CO2 mmol/L 27 -- -- ANIONGAP mmol/L 7 -- -- GLUCOSE mg/dL 157 -- -- POC GLUCOSE MONITOR -- < > 112 BUN SERUM mg/dL 12 -- -- CREATININE mg/dL 0.66* -- -- CALCIUM mg/dL 9.0 -- -- HEMOGLOBIN, POC g/dL -- -- 13.0* HEMATOCRIT POC % -- -- 39.0* < > = values in this interval not displayed. Micro: No results found for: MICROBIOLOGY Assessment/Plan: 56 y.o. male p/w left shoulder RTC arthropathy. Patient is now s/p L rTSA. WB Status: NWB LUE Immobilization: Sling with pillow Activity: Up with assist Therapy: OT for mobility assistance/evaluation and elbow/wrist/hand ROM exercises. Drain: n/a DVT ppx: Ok to restart home AC regimen: plavix POD3 Antibiotics: Ancef 1-2gm IV Q8hrs for 24 hours postoperative Wound Care: prineo Diet: Diabetic Additional needs: Pain team to provide nerve catheter teaching. Ortho S&E is the primary team, and will manage this patient's hospital course. Discharge Planning: Home Ulises Bonilla MD Clinical Fellow Shoulder and Elbow Service [facility] Please call with questions during daytime. See below for overnight issues. If you know the resident's name on the appropriate orthopaedic surgery team, please use [email or web address] to page resident directly. If questions arise and the appropriate resident can't be reached or you are calling overnight, please contact [phone] ([place]- 7:30 PM - 6:30 AM - Floor Resident) or [phone] (24 hours/day - Consult Resident) Cosigned by Guille Guillaume MD at 05/03/2022 3:55 PM CDT * OlmanMarguerite mares, ANA - 05/02/2022 2:12 PM CDT CM Initial Assessment Interview Note Information Obtained From: Patient (In Room) (05/02/221407) Admission Source: Non-health care facility point of origin. Impression: 56 y.o. male here due to LEFT REVERSE TOTAL SHOULDER ARTHROPLASTY Plan Includes: Role of CM explained. CM will continue to assist pt with anticipated home needs prior to d/c from hospital. Primary Source of Transportation: Minerva (spouse) [phone] Does the patient need discharge transport arranged?: No (05/02/22 1411) Health Insurance Coverage: [employer] PPO POS Prescription Coverage: yes Pharmacy: [facility] [address] Primary Care Provider: Faisal Richardson DO Prior to Admission: Primary Caregiver: Self Who does the patient or legal guardian want to receive education instruction and discharge plans for after care assistance?: Name Caregiver Name: Minerva Rutledge Relationship to patient: Spouse Caregiver Contact Information: [phone] Support System: Spouse/Significant Other Support system contact info (name, phone, availablity): Minerva Rutledge(spouse)[phone] Home Care Services: No Durable Medical Equipment: Cane (single prong), Walker (wheeled) Living Arrangements: Spouse/significant other Type of Residence: Private residence Steps in home? : Yes, Outside of home Number of steps outside:: 1 steps (05/02/221407) Potential discharge needs include: Pending Recommendations Dialysis: no Behavioral Health Services: Behavioral Health Services: No (05/02/221407) Patient expects to be Discharged to: Private residence, (05/02/221407) Additional Information: lives at home with spouse with good support/assist. Patient's Identified Problem/Goal Problem: Ensure acute medical needs are met and that patient has a safe discharge plan. Goal: Secure a discharge plan that patient/family are agreeable with and ensure patient has continuum of care. Case management will follow for discharge planning and send referrals as needed. Goals include: To assure continuity of care, To maximize coping skills, To assure patient is in a safe environment and To assure access to community resources. Plan includes: 1. Collaboration with patient, MD, direct care nurse, Scowman, and other members of the health care team to assure needed interventions completed. 2. Return patient to optimal level of self-care post discharge. 3. Ruching Machine Operator will follow for Discharge Planning - interventions as needed 4. Anticipated level of care at discharge 5. Planned Discharge Disposition Based on a comprehensive family assessment, assistance with instrumental activities of daily livingafter discharge will be provided by (spouse) Minerva. Through the course of our work I determined that the Minerva possesses the skill and ability to provide and monitor the care of the patient when he or she returns home. Minerva has the capacity to provide/monitor/arrange for the care of the patient. Finally, we determined that Minerva has the knowledge of available resources and that combining them with their existing resources will suffice to sustain andcare for the patient when he or she returns home. The treatment team is aware of this information. All are in agreement with the aftercare plan. Marguerite Thurman RN documented in this encounter H&P Notes * Guille Guillaume MD - 05/02/2022 6:53 AM CDT I have reviewed the H&P, examined the patient, and endorse the findings as written. Plan of Care : Based on the above findings, I consider Jose Rutledge to be an acceptable risk for :Procedure(s): LEFT REVERSE TOTAL SHOULDER ARTHROPLASTY Source Note - Evans Berman NP - 04/07/2022 8:43 AM CDT Images from the original note were not included. 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 male Procedure(s): LEFT REVERSE TOTAL SHOULDER ARTHROPLASTY Pre-Op Diagnosis Codes: * Tear of left rotator cuff, unspecified tear extent, unspecified whether traumatic [M75.102] HISTORY HPI Jose Rutledge is a 56 y/o male with PMH CVA (10/05/21), CAD, Mod-severe , DM2, NATALY undergoing evluation for L reverse total should arthroplasty. Past Medical History Information obtained from: patient and chart. Neurological + CVA/Stroke (Reports temperature insensitivity on R side. No weakness/parsthesia) Number of CVA episodes: 1. Date of last CVA: 10/05/21. + ICA stenosis (per 10/25/21 CTA head/neck) - left internal carotid artery and right internal carotid artery. Left ICA stenosis <50%. Right ICA stenosis 50-69%. Pertinent negatives: seizures; neuromuscular disease; TIA; CEA; dementia/mild cognitive impairment and carotid artery stent Comments: Follows / [facility] neurology clinic [facility] 01/2022 Cardiovascular + Hypertension + Hyperlipidemia + CAD (per 12/2021 cards note) + Systolic or diastolic dysfunction w/o CHF Diastolic function: stage I - impaired relaxation LVEF:50-60%. + Current valvular disease (10/2021 TTE) - - moderate-severe; Pertinent negatives: ID ; CABG ; valve replacement; atrial fibrillation; arrhythmia; pacemaker/ICD;PVD; DVT/PE; negative for CHF; drug-eluting stent(s); bare metal stent(s); unknown stent(s) type and coronary angioplasty Comments: Follows [facility] 12/2021 Aortic Stenosis. His echocardiogram in the hospital suggested moderate to severe aortic stenosis, but his gradients were relatively stable compared to his last study (PG 30 mmHg, MG 18 mmHg in 2020,PG 32 mmHg, MG 17 mmHg in 2021). He is asymptomatic, and his blood pressure was elevated during hishospitalization due to the CVA. Therefore, we will plan to repeat an echocardiogram next year. Respiratory + Sleep apnea (NATALY) Prescribed device: CPAP. Pertinent negatives: COPD; asthma; pulmonary hypertension; no O2 use outside the hospital and non-smoker Hepatic / Heme + History of anemia (12.8/38.1 10/2021) Pertinent negatives: liver disease; history of thrombocytopenia and history of Vishal positive Gastrointestinal Pertinent negatives: GERD and hiatal hernia Renal / Pertinent negatives: renal disease; dialysis and nephrolithiasis Musculoskeletal/Pain + Chronic pain (L shoulder, R hip) Pertinent negatives: chronic opioid use and previous treatment for opioid use disorder Endocrine / Other + Diabetes mellitus - Diabetes type 2. Diagnosed: 1994. Outpatient insulin use: none. Pt reported low glucose range is 100. Pt reported high glucose range is 180. Pt reported HgA1c: 5.8. Pt reported HgA1c date: 04/07/22. + Obesity (BMI >30) Pertinent negatives: thyroid disease; cancer history; rheumatological disease and transplanted organ Comments: 10/[address]: IMPRESSION: Virtually nondisplaced fractures of sockets of left central and lateral maxillary incisor and maxillary canine tooth. Fracture of anterior nasal spine and nasal bones proper and nasal processes of maxillae. Maxillary sinus retention cyst. Functional Capacity Functional capacity: 4-6 METs Comments: Able to climb 1 flights of stairs without dyspnea or CP, no limit to flat ground ambulation Review of Systems + easy bruising (on plavix. No gum/nosebleeds) + syncope (dizzy spell/syncope resulting in fall 10/2021. Appropriate medical follow up.) + dizziness (dizzy spell resulting in fall 10/2021. Appropriate medical follow up. No dizziness or fall since.) + chronic pain (L shoulder, R hip) + vision loss (corrective lenses) + chipped/loose teeth (braces. Chipped top front tooth) Pertinent negatives: productive cough; wheezing; SOB; recent cold/flu; fever; chest pain; palpitations; orthopnea; pedal edema; PND; Sickle Cell disease/trait; previous transfusion; transfusion reaction; melena/hematochezia; bleeding problems; muscle weakness; numbness/tingling; hard of hearing; hea rtburn; nausea; dysphagia; diarrhea; dentures/partials; abdominal pain; diaphoresis and no unexpected weight change Comments: Denies urinary symptoms PAT Summary and Plans Cardiac risk classification of planned procedure: intermediate cardiac risk. Preoperative assessment status: complete. Initial preoperative evaluation discussed with: Chanell Levi MD Additional comments: oJse Rutledge is a 56 y.o. male who is being evaluated prior to undergoing an intermediate cardiac risk surgery. Revised Cardiac Risk Index factors are (ischemic heart disease and history of cerebrovascular disease) for a total RCRI of 2 out of 6. Functional capacity is 4-6 METs. Obstructive sleep apnea (NATALY) screening status is HIGH RISK due to known NATALY NATALY orders placed Blood bank needs for day of procedure: Type and Screen only Pending labs/tests include: CBC, T&S 14D surgeon labs: CMP Vitamin D DOS T&S Patient's COVID19 status is: Unexposed. The patient currently has no concerning symptoms of COVID19. . Patient's COVID-19 vaccination status is Up to date with 3 mRNA vaccines. Documentation of vaccination status is available in the [facility] Immunization tab. . Plan for pre-procedure COVID19 testing: Patient is asymptomatic and up to date with their COVID-19 vaccine. COVID-19 testing not indicated. . -->Patient had stroke workup 10/05/21, states his symptoms may have started as early as 10/01/21. He has appropriate follow up with Su[facility], remains on plavix, statin. ASA discontinued by neurology 01/30/22 -->Patient had a syncopal event after bending over 10/25/21 resulting in chipped tooth/braces, facial fractures (states he was told these are non operative management). Has had appropriate medical follow up including hospital admission, neuro/cards follow up. Discussed w/ CPAP attending, no need to obtain ECG in clinic today, last 10/25/21. -->Mod-severe , previous echo 2019 was mild-mod. This is noted in 12/2021 cards note, along with: his gradients were relatively stable compared to his last study (PG 30 mmHg, MG 18 mmHg in 2020,PG 32 mmHg, MG 17 mmHg in 2021). He is asymptomatic, and his blood pressure was elevated during hishospitalization due to the CVA. Therefore, we will plan to repeat an echocardiogram next year The patient is on clopidogrel therapy and has a history of CVA. Because the risk of increased bleeding likely outweighs the benefits of this therapy perioperatively, we recommend discontinuing clopidogrel for 5-7 days prior to the procedure and resuming therapy when feasible in the postoperative period. [facility] staff message sent to surgeon's office. Please call the CPAP attending ([phone]) with any questions. Preoperative evaluation performed by Gage Norris NP on 04/07/22 at 8:56 AM. . Follow up note Labs reviewed and are without significant findings. Surgeon's office reviews laboratory results independently, including final results of surgeon ordered labs. CPAP process complete. Follow-up completed by: Evans Berman NP on 04/11/22 at 12:08 PM Patient Active Problem List Diagnosis ??? Tear of left rotator cuff Past Medical History: Diagnosis Date ??? Sleep apnea Past Surgical History: Procedure Laterality Date ??? FLUORO GUIDED INJECTION SHOULDER RIGHT Right 04/03/2022 Allergies Allergen Reactions ??? Penicillins Angioedema, Hives and Rash Med List Status: Nurse Complete Set By: Isabel Chatman RN at 04/07/2022 8:56 AM Taking? Last Dose Start Date End Date Provider acetaminophen ER (TYLENOL) 650 mg 8 hr tablet 04/07/2022 -- -- ProviderTheresa MD amLODIPine (NORVASC) 5 mg tablet 04/07/2022 03/05/22 -- ProviderTheresa MD betamethasone dipropionate (DIPROLENE) 0.05 % ointment 04/07/2022 10/17/20 -- ProviderTheresa MD carvediloL (COREG) 25 mg tablet 04/07/2022 03/05/22 -- ProviderTheresa MD cloNIDine (CATAPRES) 0.1 mg tablet 04/07/2022 03/05/22 -- ProviderTheresa MD clopidogreL (PLAVIX) 75 mg tablet 04/07/2022 03/05/22 -- ProviderTheresa MD cyclobenzaprine (FLEXERIL) 10 mg tablet 04/07/2022 03/05/22 -- ProviderTheresa MD diclofenac DR (VOLTAREN) 75 mg EC tablet 04/07/2022 03/05/22 -- ProviderTheresa MD losartan-hydroCHLOROthiazide (HYZAAR) 100-12.5 mg per tablet 04/07/2022 03/05/22 -- Theresa Callejas MD metFORMIN (GLUCOPHAGE) 1,000 mg tablet 04/07/2022 03/05/22 -- ProviderTheresa MD multivit-min/folic/vit K/lycop (ONE-A-DAY MEN'S MULTIVITAMIN ORAL) 04/07/2022 03/28/19 -- Theresa Callejas MD ondansetron ODT (ZOFRAN-ODT) 4 mg disintegrating tablet -- 01/29/22 -- Theresa Callejas MD Notes: Over a 1yr rosuvastatin (CRESTOR) 20 mg tablet 04/07/2022 03/05/22 -- Theresa Callejas MD Trulicity 1.5 mg/0.5 mL pen injector Past Week 03/05/22 -- Theresa Callejas MD Current Outpatient Medications: ??? acetaminophen ER (TYLENOL) 650 mg 8 hr tablet ??? amLODIPine (NORVASC) 5 mg tablet ??? betamethasone dipropionate (DIPROLENE) 0.05 % ointment ??? carvediloL (COREG) 25 mg tablet ??? cloNIDine (CATAPRES) 0.1 mg tablet ??? clopidogreL (PLAVIX) 75 mg tablet ??? cyclobenzaprine (FLEXERIL) 10 mg tablet ??? diclofenac DR (VOLTAREN) 75 mg EC tablet ??? losartan-hydroCHLOROthiazide (HYZAAR) 100-12.5 mg per tablet ??? metFORMIN (GLUCOPHAGE) 1,000 mg tablet ??? multivit-min/folic/vit K/lycop (ONE-A-DAY MEN'S MULTIVITAMIN ORAL) ??? ondansetron ODT (ZOFRAN-ODT) 4 mg disintegrating tablet ??? rosuvastatin (CRESTOR) 20 mg tablet ??? Trulicity 1.5 mg/0.5 mL pen injector Social History Tobacco Use Smoking Status Never Smokeless Tobacco Never Alcohol Use: Unknown ??? Frequency of Alcohol Consumption: Not on file ??? Average Number of Drinks: Patient does not drink ??? Frequency of Binge Drinking: Not on file Substance and Sexual Activity Drug Use Never Family History Problem Relation Age of Onset ??? Cancer Mother Family history of malignant neoplasm - (Added by TW Conv) ??? Cancer Father Family history of malignant neoplasm - (Added by TW Conv) ??? Anesthesia problems Neg Hx ??? Malig Hypertension Neg Hx ??? Malig Hyperthermia Neg Hx ??? Pseudochol deficiency Neg Hx PAT Physical Exam Airway Exam: Mallampati: II Cervical ROM: FROM TM distance: normal Upper lip bite test class: 1 Cardiovascular Exam: Rate: regular Rhythm: regular Murmur: grade II/ No extra heart sounds appreciated Negative for peripheral edema JVD negative Negative for weak pulses Pulmonary Exam: LCTA, bilat EENT Exam: trachea midline Dental Exam: Chipped (Upper braces) Skin Exam: Skin is warm and dry. Capillary refill is < 3 seconds. Abdominal exam: Abdomen is soft. Bowel sounds are present. Current state: Patient's current state is cooperative and interactive. Relevant diagnostics: ECG(s): 10/25/21 - CE ? Measurements Intervals ?[place] ? Rate: ? 67 ? P: ?11 OK: ? 191 ?QRS: ?-13 QRSD: ? 105 ?T: ?216 QT: ? 395 ? QTc: ?417 ? Interpretive Statements ? Sinus rhythm Left ventricular hypertrophy ST and T wave abnormality, consider ischemia Echocardiogram(s): 10/06/21 TTE - CE STUDY CONCLUSIONS: SUMMARY: -- - Left ventricle: [...] septum: Agitated saline contrast study shows no [id number] shunt. Stress test(s): N/A Cardiac catheterization(s): N/A PFT(s): N/A Vascular studies: 06/24/20 Carotids bilat - CE FINDINGS: ++++++++++++++++++++++++++++++++++++ Rt Innom: The innominate artery is unable to be obtained. Rt Subcl: The proximal subclavian artery is patent. Rt ICA: ?? 0-39% stenosis with plaque noted in the internal carotid ? artery. ??Mild heterogeneous plaque noted. Rt ECA: ?? Patent with antegrade flow noted in the external carotid ? artery. Rt Vert: ??Normal antegrade vertebral flow. Lt Subcl: The proximal subclavian artery is patent. Lt ICA: ?? 0-39% stenosis without plaque noted in the internal carotid ? artery. Lt ECA: ?? Patent with antegrade flow noted in the external carotid ? artery. Other: 10/25/21 CXR 1 view - CE IMPRESSION: 1. Mild pulmonary vascular congestion, otherwise clear lungs. 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 ?? Findings were discussed personally with Dr. Maradiaga at time of this dictation (0934 hours 3/22/22 CTA head/neck + CT cerebral perfusion - CE IMPRESSION: CT perfusion: No evidence of irreversible, potentially reversible, or compensated perfusion abnormality. Scattered areas of artifact versus benign white matter oligemia. CTA head: Mild intracranial atherosclerosis without large vessel occlusion, aneurysm, or vascular malformation. CTA neck: Moderate focal stenosis of the proximal right cervical ICA. Scattered areas of atherosclerotic plaque without flow significant stenosis of the carotid or vertebral circulation of the neck. Vitals: 04/07/22 0825 04/07/22 0828 BP: 136/78 140/81 Pulse: 68 SpO2: 99% PT: No results found for requested labs within last 720 hours. INR: No results found for requested labs within last 720 hours. APTT: No results found for requested labs within last 720 hours. Hgb A1C: No results found for requested labs within last 720 hours. CBC RBC: No results found for requested labs within last 720 hours. RDW: No results found for requested labs within last 720 hours. MCHC: No results found for requested labs within last 720 hours. MCH: No results found for requested labs within last 720 hours. MCV: No results found for requested labs within last 720 hours. Hct: No results found for requested labs within last 720 hours. Hgb: No results found for requested labs within last 720 hours. WBC: No results found for requested labs within last 720 hours. MPV: No results found for requested labs within last 720 hours. Platelets: No results found for requested labs within last 720 hours. RDW CV: No results found for requested labs within last 720 hours. RDW Sd: No results found for requested labs within last 720 hours. BMP Glucose: No results found for requested labs within last 720 hours. Calcium: No results found for requested labs within last 720 hours. Sodium: No results found for requested labs within last 720 hours. Potassium: No results found for requested labs within last 720 hours. CO2: No results found for requested labs within last 720 hours. Chloride: No results found for requested labs within last 720 hours. BUN: No results found for requested labs within last 720 hours. Creatinine: No results found for requested labs within last 720 hours. Jessie index score: 100 documented in this encounter Nursing Notes * Meenakshi Chavez RN - 05/03/2022 11:39 AM CDT Patient discharging home with family care via private vehicle. Peripheral IV d/c without complications. Discharge education and instructions given; patient and verbalized understanding. All belongings and valuables accounted for. No s/sx of distress at this time. * Meenakshi Chavez RN - 05/03/2022 7:18 AM CDT At bedside shift report, patient refused bed alarm. Education was provided regarding safety and importance to call for help from staff. documented in this encounter Miscellaneous Notes * Plan of Care - Meenakshi Chavez RN - 05/03/2022 9:03 AM CDT Goals: Clinical Goals for the Shift: Monitor vital signs, pain control, PT/OT, rest Summary: Problem: Health Behavior: Goal: Understanding of discharge needs will improve Outcome: Progressing Problem: Lack of Knowledge: Goal: Understanding of ways to prevent infection will improve Outcome: Progressing Problem: Skin Integrity: Goal: Will remain free from wound infection Description: World Health Organization (WHO) identifies hands as the main mode of germ transmissionin health care. Hand hygiene may be considered the most important measure performed to avoid transmission of germs and prevent health care associated infection. Outcome: Progressing Problem: Lack of Knowledge: Goal: Ability to develop a pain control plan will improve Outcome: Progressing Goal: Ability to identify pain intensity on a pain scale and rate it consistently will improve Outcome: Progressing Goal: Ability to notify healthcare provider of pain before it becomes unmanageable or unbearable will improve Outcome: Progressing Problem: Medication: Goal: Satisfaction with pain management regimen will improve Outcome: Progressing Problem: Sensory: Goal: Ability to identify factors that increase the pain will improve Outcome: Progressing Goal: Pain level will decrease Outcome: Progressing Problem: Activity: Goal: Risk for activity intolerance will decrease Outcome: Progressing Problem: Physical Regulation: Goal: Ability to maintain clinical measurements within normal limits will improve Outcome: Progressing Problem: Self-Care: Goal: Ability to participate in self-care as condition permits will improve Outcome: Progressing Problem: Sensory: Goal: Pain level will decrease Outcome: Progressing Goal: Ability to develop a pain control plan will improve Outcome: Progressing Problem: Skin Integrity: Goal: Risk for impaired skin integrity will decrease Outcome: Progressing Problem: Tissue Perfusion: Goal: Risk factors for ineffective tissue perfusion will decrease Outcome: Progressing * Plan of Care - Dayana Tamayo RN - 05/03/2022 4:41 AM CDT Goals: Clinical Goals for the Shift: Monitor VSS, I & O, pain managment, skin care, diet, OOB Summary: Problem: Lack of Knowledge: Goal: Understanding of ways to prevent infection will improve Outcome: Progressing Problem: Lack of Knowledge: Goal: Ability to identify pain intensity on a pain scale and rate it consistently will improve Outcome: Progressing Goal: Ability to notify healthcare provider of pain before it becomes unmanageable or unbearable will improve Outcome: Progressing Problem: Medication: Goal: Satisfaction with pain management regimen will improve Outcome: Progressing * Plan of Care - Salazar Cobian RRT - 05/03/2022 4:00 AM CDT Pt wore his home NPPV throughout the night. * Plan of Care - Mimi Darby RN - 05/02/2022 11:53 AM CDT Problem: Health Behavior: Goal: Understanding of discharge needs will improve Outcome: Progressing Problem: Lack of Knowledge: Goal: Understanding of ways to prevent infection will improve Outcome: Progressing Problem: Skin Integrity: Goal: Will remain free from wound infection Description: World Health Organization (WHO) identifies hands as the main mode of germ transmissionin health care. Hand hygiene may be considered the most important measure performed to avoid transmission of germs and prevent health care associated infection. Outcome: Progressing Problem: Lack of Knowledge: Goal: Ability to develop a pain control plan will improve Outcome: Progressing Goal: Ability to identify pain intensity on a pain scale and rate it consistently will improve Outcome: Progressing Goal: Ability to notify healthcare provider of pain before it becomes unmanageable or unbearable will improve Outcome: Progressing Problem: Medication: Goal: Satisfaction with pain management regimen will improve Outcome: Progressing Problem: Sensory: Goal: Ability to identify factors that increase the pain will improve Outcome: Progressing Goal: Pain level will decrease Outcome: Progressing Problem: Activity: Goal: Risk for activity intolerance will decrease Outcome: Progressing Problem: Physical Regulation: Goal: Ability to maintain clinical measurements within normal limits will improve Outcome: Progressing Problem: Self-Care: Goal: Ability to participate in self-care as condition permits will improve Outcome: Progressing Problem: Sensory: Goal: Pain level will decrease Outcome: Progressing Goal: Ability to develop a pain control plan will improve Outcome: Progressing Problem: Skin Integrity: Goal: Risk for impaired skin integrity will decrease Outcome: Progressing Problem: Tissue Perfusion: Goal: Risk factors for ineffective tissue perfusion will decrease Outcome: Progressing Goals: Clinical Goals for the Shift: Monitor VSS, I & O, pain managment, skin care, diet, OOB Summary: Ongoing assessment, will continue to monitor. * Op Note - Guille Guillaume MD - 05/02/2022 8:25 AM CDT Operative Report SURGEON: Guille Guillaume MD SURGICAL TEAM: Surgeon(s) and Role: * Guille Guillaume MD - Primary * Torrey Bonilla MD - Fellow DATE OF SURGERY : 05/02/2022 PREOPERATIVE DIAGNOSIS: Pre-op Diagnosis * Tear of left rotator cuff, unspecified tear extent, unspecified whether traumatic [M75.102] POSTOPERATIVE DIAGNOSIS: Post-op Diagnosis * Tear of left rotator cuff, unspecified tear extent, unspecified whether traumatic [M75.102] PROCEDURE: LEFT REVERSE TOTAL SHOULDER ARTHROPLASTY (L) ANESTHESIA: Choice OPERATIVE DETAILS PROCEDURE: The patient presented and identified themselves in the preoperative holding area. They identified the left shoulder as the operative site and the left shoulder was marked in standard fashion. After placement of an interscalene block in preoperative holding, the patient was taken to the operating room where the patient was again identified along with the surgical site and procedure as part of the preoperative timeout process. General endotracheal anesthesia was induced. Intravenous antibiotics were administered. The patient was then placed into a low beach chair position. Pneumatic compressiondevices were also placed on the legs. The left upper extremity was then prepped and draped in the usual sterile fashion. A standard deltopectoral approach was then made starting at the coracoid process and extending inferolaterallyoverlying the deltopectoral interval. Full-thickness skin and subcutaneous tissue flaps were created with sharp dissection down to the deltopectoral muscular interval. The deltoid was then bluntly taken laterally and pectoralis major medial inferiorly. The cephalic vein was taken laterally with thedeltoid. The subdeltoid planes were then bluntly dissected and deltoid retractors placed. Deep deltoid retractor was placed and the subscapularis layer was exposed. A peel was performed. The arm was adducted and externally rotated, continually releasing the capsule to about the 6:00 position while protecting the axillary nerve. This allowed dislocation of the humeral head anteriorly. Any remaining anterior superior cuff or scar tissue was removed to allow dislocation and exposure of the humeral head. The teres minor and any remnant of the infraspinatus tendon were visualized and left intact. A standard head cut was performed with the superior extent at the insertion of the old rotator cuff or anatomic neck and inferiorly to the medial portion of the anatomic neck, at approximately 20-degrees of retroversion. Deep glenoid retractors were then placed and visualization of the glenoid was excellent. The axillary nerve was identified and protected and then the inferior labrum excised. The upper long head of the triceps was also incised and released revealing the inferior border of the glenoid neck. Any remaining glenoid cartilage was removed with a bass elevator. After location of this, a drill guide was placed referencing the inferior glenoid rim and the best estimate of the supraspinatous fossa using radiographs and visual cues. The guide wire was advanced bicortically through the glenoid vault, with mild version correction of the muckleshoot glenoid face. Standard glenoid preparation was performed by using a reamer over the guide wire. The central hole preparation was completed according to [employer]ation and glenoid base plate was fastened into place with outstanding initial fixation. We then drilled for the inferior screw. While advancing the screw, resistance was encountered. We slowed our turns with the screwdriver, but as we attempted to advance, a portion of the screw head fractured. Despite attempts to back the screw out with a heavy needle furniture mover driver, we were unable to safely remove it. We therefore decided to remove the fractured head, allowing the screw to sit flush with the surface of the baseplate. This would still provide some fixation and would not prevent the glenosphere from seating. We then drilled and placed a superior and posterior screw without issue. Excellent fixation was obtained with the screws and they were locked in place. A glenosphere was then carefully applied and fastened into place. The arm was dislocated anteriorly and the humerus was prepared according to [employer] instrumentation. At this point, a provisional implant was then placed, correct humeral version was ensured. Trial reductions were then performed and stability testing was performedusing standard techniques. The final humeral stem was impacted into place in approximately 20 degrees of retroversion. The appropriate-sized polyethylene component was then fastened to the humeral component. The humerus was then reduced and appropriate stability and clearance from bony impingement was verified. Hemostasis was obtained and the wound thoroughly irrigated. The wound was closed in a layered fashion followed by placement of a sterile dressing. A sling was placed and anesthesia reversed. Patient was taken to the recovery room, having tolerated the procedure well and having sustained no intraoperative complications. Estimated Blood Loss: No blood loss documented. Complications: None Condition on Discharge from the operating room was stable Torrey Bonilla MD Date: 05/02/2022 Time: 3:43 PM ATTENDING ATTESTATION I, Dr. Guille Guillaume, am the Attending Surgeon of record for this procedure. I was present and scrubbed for all critical portions of the case including surgical approach and placement of the glenoid and humeral components. I was immediately available for non-critical portions of the case including superficial closure. IMPLANTS: Implant Name Type Inv. Item Serial No. Molder Hand Lot No. [id number] No. Used [employer] GLENOSPHERE XTEND LATERALIZED 42MM +4MM STANDARD [id number] - [id number] [employer] Glenosphere Xtend Lateralized 42MM +4MM Standard [id number] [employer] IncLeft 1 Implanted [employer] DELTA XTEND 4.5MM 24MM LOCK SHOULDER GLENOID SCREW BONE METAGLENE [id number] - [id number] [employer] Delta Xtend 4.5mm 24mm Lock Shoulder Glenoid Screw Bone Metaglene [id number] [employer] Left 1 Implanted [employer] DELTA XTEND 4.5MM 48MM LOCK SHOULDER GLENOID SCREW BONE METAGLENE [id number] - [id number] [employer] Delta Xtend 4.5mm 48mm Lock Shoulder Glenoid Screw Bone Metaglene [id number] [employer] Left 1 Implanted [employer] DELTA XTEND 27MM CEMENTLESS SHOULDER STANDARD COMPONENT GLENOID LATEX FREE [id number] - [id number] [employer] Delta Xtend 27mm Cementless Shoulder Standard ComponentGlenoid Latex Free [id number] [employer] Left 1 Implanted [employer] DELTA XTEND 4.5MM 36MM LOCK SHOULDER GLENOID SCREW BONE METAGLENE [id number] - [id number] [employer] Delta Xtend 4.5mm 36mm Lock Shoulder Glenoid Screw Bone Metaglene [id number] [employer] Left 1 Implanted [employer] IMPLANT SHLDR XTEND MODECC 145EPI POR SZ1 LT [id number] - [id number] [employer] IMPLANT SHLDR XTEND MODECC 145EPI POR SZ1 LT [id number] [employer] Left 1 Implanted [employer] GLOBAL UNITE 10MM 113MM MODULAR SHOULDER STANDARD STEM HUMERAL [id number] - [id number] [employer] Global Unite 10mm 113mm Modular Shoulder Standard Stem Humeral [id number] [employer] Left 1 Implanted [employer] DELTA XTEND 42MM SHOULDER +3MM STANDARD CUP HUMERAL POLYETHYLENE LATEX FREE [id number] - [id number] [employer] Delta Xtend 42mm Shoulder +3mm Standard Cup Humeral Polyethylene Latex Free [id number] [employer] Left 1 Implanted * Brief Op Note - Torrey Bonilla MD - 05/02/2022 7:30 AM CDT Operative Progress Note Surgical Team: Surgeon(s) and Role: * Guille Guillaume MD - Primary Anesthesiologist: Duke Trent MD PhD EMPLOYEE BENEFITS SPECIALIST: Jose Carrera CRNA Degree Clerk: Socorro Brown DATE OF SURGERY : 05/02/2022 Preoperative Diagnosis: Pre-op Diagnosis * Tear of left rotator cuff, unspecified tear extent, unspecified whether traumatic [M75.102] Postoperative Diagnosis: Post-op Diagnosis * Tear of left rotator cuff, unspecified tear extent, unspecified whether traumatic [M75.102] Procedure(s): Procedure(s) (LRB): LEFT REVERSE TOTAL SHOULDER ARTHROPLASTY (Left) Operative Findings: RCTA Estimated Blood Loss: No blood loss documented. Intraoperative Fluids: See anesthesia note Specimens: No specimen collected in procedure Implants: Nothing was implanted during the procedure Blood/Blood Products Transfused: 0 mls Complications: Inferior screw head broke Condition on Discharge from the operating room was stable Torrey Bonilla MD Date: 05/02/2022 Time: 7:30 AM Cosigned by Guille Guillaume MD at 05/03/2022 3:55 PM CDT documented in this encounter Plan of Treatment Not on file documented as of this encounter Procedures Procedure Name Priority Date/Time Associated Diagnosis Comments POCT GLUCOSE DEVICE Routine 05/03/2022 7 :57 AM CDT CBC WITHOUT DIFFERENTIAL STAT 05/03/2022 7:52 AM CDT EGFR Routine 05/03/2022 6:43 AM CDT BASIC METABOLIC PANEL Routine 05/03/2022 6:43 AM CDT POCT GLUCOSE DEVICE Routine 05/03/2022 6 :36 AM CDT POCT GLUCOSE DEVICE Routine 05/02/2022 1 0:37 PM CDT POCT GLUCOSE DEVICE Routine 05/02/2022 4 :32 PM CDT POCT GLUCOSE DEVICE Routine 05/02/2022 1 :25 PM CDT POCT GLUCOSE DEVICE Routine 05/02/2022 1 0:13 AM CDT XR SHOULDER LEFT 2 OR MORE VIEWS IP Routine 05/02/2022 10:10 AM CDT ARTHROPLASTY SHOULDER - REVERSE TOTAL 05/02/2022 7:30 AM CDT Tear of left rotator cuff, unspecified tear extent, unspecified whether traumatic Case Notes 04/19@1104: Per Teresa via in-basket case moved up due to case moving. SR Special Needs TBD COVID-19 CORONAVIRUS RNA Routine 05/02/2022 7:28 AM CDT POC BLOOD GAS AND CHEMISTRIES, ARTERIAL Routine 05/02/2022 6:15 AM CDT HC ANTIBODY SCREEN RBC STAT 05/02/2022 6:08 AM CDT documented in this encounter Results * POCT glucose (05/03/2022 7:57 AM CDT) Glucose, POC 140 70 - 199 mg/dL [facility] Blood 05/03/2022 7:57 AM CDT 05/03/2022 7:57 AM CDT us Guille Guillaume MD LAB POCT ORDERABLES - DEVICE Final Result [facility] [place] [address] * (ABNORMAL) CBC without differential (05/03/2022 7:52 AM CDT) WBC 6.9 3.8 - 9.9 K/cumm JI [facility] Hgb 11.8(L) 13.0 - 17.5 g/dL [facility] Hct 35.3(L) 38.9 - 50.3 % [facility] Plt 133(L) 150 - 400 K/cumm [facility] MPV 9.3 9.1 - 12.3 fL [facility] RBC 3.71(L) 4.30 - 5.80 M/cumm [facility] MCV 95.1 81.3 - 96.4 fL [facility] MCH 31.8 27.1 - 33.3 pg [facility] MCHC 33.4 32.3 - 35.7 g/dL [facility] RDW CV 13.6 11.1 - 14.9 % [facility] RDW SD 47.5 35.7 - 48.1 fL [facility] NRBC abs 0.00 0.00 - 0.01 K/cumm [facility] Blood 05/03/2022 7:52 AM CDT 05/03/2022 8:21 AM CDT us Manuela Rahman NP LAB BLOOD ORDERABLES Final Res ult [facility] Department [place] [address] * eGFR (05/03/2022 6:43 AM CDT) eGFR >90 90 - 130 mL/min/1. 73 m2 [facility] Comment: Interpretive Data Reference Interval Normal ?>/= 90 mL/min/1.73m2 Mildly decreased* ? 60 - 89 mL/min/1.73m2 Mildly to moderately decreased ?45 - 59 mL/min/1.73m2 Moderately to severely decreased ??30 - 44 mL/min/1.73m2 Severely decreased ?15 - 29 mL/min/1.73m2 Kidney Failure ?< 15 ??mL/min/1.73m2 *Relative to young adult level Estimated glomerular filtration rate is determined by the 2020 CKD-EPI equation recommended by the National Kidney Foundation (A Unifying Approach to GFR Estimation: Recommendations of the NKF-ASK Task Force on Reassessing the Inclusion of Race in Diagnosing Kidney Disease, JASN 202). The CKD-EPI equation should not be used for patients with unstable renal function and has not been validated in children and those over 70. Current interpretive data was last reviewed 2021. Blood 05/03/2022 6:43 AM CDT 05/03/2022 6:51 AM CDT us Guille Guillaume MD LAB BLOOD ORDERABLES F inal Result [facility] Department [place] [address] * (ABNORMAL) Basic metabolic panel (05/03/2022 6:43 AM CDT) Sodium 140 135 - 145 mmol/L [facility] Potassium, pl 3.7 3.3 - 4.9 mmol/L [facility] Chloride 106 97 - 110 mmol/L [facility] CO2 27 22 - 32 mmol/L [facility] Anion gap 7 2 - 15 mmol/L [facility] BUN 12 8 - 25 mg/dL [facility] Creatinine 0.66(L) 0.80 - 1.30 mg/dL [facility] Glucose 157 70 - 199 mg/dL [facility] Comment: Interpretive Data Fasting glucose >/= 126 mg/dl is diagnostic for diabetes. ?? Fasting is defined as no caloric intake for at least 8 hours. Fasting glucose between 100 mg/dl to 125 mg/dl is diagnostic of prediabetes. In a patient with classic symptoms of hyperglycemia or hyperglycemic crisis, a random glucose >/= 200 mg/dl is diagnostic for diabetes. In the absence of unequivocal hyperglycemia, results should be confirmed by repeat testing. The classification and Diagnosis of Diabetes Diabetes Care 2017;40 (Suppl. 1):S11. Current interpretive data was last revised 2017. Calcium 9.0 8.5 - 10.3 mg/dL [facility] Blood 05/03/2022 6:43 AM CDT 05/03/2022 6:51 AM CDT Guille Guillaume MD LAB BLOOD ORDERABLES F inal Result Performing Organization Address City/[facility]/ZIP Co de Phone Number [facility] [place] [address] * POCT glucose (05/03/2022 6:36 AM CDT) Glucose, POC 169 70 - 199 mg/dL [facility] Blood 05/03/2022 6:36 AM CDT 05/03/2022 6:36 AM CDT Guille Guillaume MD LAB POCT ORDERABLES - DEVICE Final Result Performing Organization Address [place]/[facility] Co de Phone Number [facility] [place] [address] * POCT glucose (05/02/2022 10:37 PM CDT) Glucose, POC 106 70 - 199 mg/dL [facility] Blood 05/02/2022 10:3 7 PM CDT 05/02/2022 10:37 PM CDT Guille Guillaume MD LAB POCT ORDERABLES - DEVICE Final Result Performing Organization Address City/[facility] CARE SERVICES Co de Phone Number [facility] [place] [address] * POCT glucose (05/02/2022 4:32 PM CDT) Glucose, POC 133 70 - 199 mg/dL [facility] Blood 05/02/2022 4:32 PM CDT 05/02/2022 4:32 PM CDT Guille Guillaume MD LAB POCT ORDERABLES - DEVICE Final Result Performing Organization Address [place]/[facility] de Phone Number [facility] [place] [address] * POCT glucose (05/02/2022 1:25 PM CDT) Glucose, POC 79 70 - 199 mg/dL [facility] Blood 05/02/2022 1:25 PM CDT 05/02/2022 1:25 PM CDT Guille Guillaume MD LAB POCT ORDERABLES - DEVICE Final Result Performing Organization Address [facility] de Phone Number [facility] [place] [address] * POCT glucose (05/02/2022 10:13 AM CDT) Glucose, POC 92 70 - 199 mg/dL [facility] Blood 05/02/2022 10:1 3 AM CDT 05/02/2022 10:13 AM CDT Guille Guillaume MD LAB POCT ORDERABLES - DEVICE Final Result Performing Organization Address [place]/[facility] de Phone Number [facility] [place] [address] * XR Shoulder Left 2+ View (05/02/2022 10:10 AM CDT) Anatomical Region Laterality Modality Upper Extremities, Shoulder Left Comp uted Radiography 05/02/2022 10:1 9 AM CDT Impressions 05/02/2022 10:19 AM CDT 1. New reverse left total shoulder arthroplasty in expected position. Electronically signed by: Ramana Paz M.D. Narrative 05/02/2022 10:19 AM CDT EXAMINATION: XR SHOULDER LEFT 2 OR MORE VIEWS HISTORY: Left rotator cuff tear arthropathy COMPARISON: 03/13/2022 FINDINGS: Two view examination of the left shoulder is performed. 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 There is postoperative soft tissue gas and swelling. No fracture is present. There is a large subacromial spur. There is mild acromioclavicular osteoarthritis. Procedure Note Ramana Paz MD - 05/02/2022 EXAMINATION: XR SHOULDER LEFT 2 OR MORE VIEWS HISTORY: Left rotator cuff tear arthropathy COMPARISON: 03/13/2022 FINDINGS: Two view examination of the left shoulder is performed. 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 There is postoperative soft tissue gas and swelling. No fracture is present. There is a large subacromial spur. There is mild acromioclavicular osteoarthritis. IMPRESSION: 1. New reverse left total shoulder arthroplasty in expected position. Electronically signed by: Ramana Paz M.D. Torrey Bonilla MD IMG XR PROCEDURES Final Res ult * COVID-19 Coronavirus RNA Nasopharyngeal (05/02/2022 7:28 AM CDT) COVID-19 RNA Negative Negative [facility] Nasopharyngeal 05/02/2022 7: 28 AM CDT 05/02/2022 7:41 AM CDT Narrative [facility] - 05/02/2022 8:34 AM CDT Is the patient experiencing any symptoms consistent with COVID (eg. Fever, cough, shortness of breath)?->No What is the reason for testing?->Asymptomatic screening prior to procedure??or??surgery (Rapid) ??Interpretive data: Synonyms for this test include: PCR and NAAT . ??This test is performed using the LISNR Xpert Xpress plus assay. This is a real-time RT-PCR test intended for the qualitative detection of nucleic acid from the SARS-CoV-2. This assay has been reviewed by the FDA for Emergency Use Authorization (EUA). The performance characteristics have been verified by the performing laboratory. Results must be considered in the clinical context and a negative result does not rule out infection. Interpretive data last revised January 04, 2022. ??Interpretive data: Synonyms for this test include: PCR and NAAT . ??This test is performed using the LISNR Xpert Xpress plus assay. This is a real-time RT-PCR test intended for the qualitative detection of nucleic acid from the SARS-CoV-2. This assay has been reviewed by the FDA for Emergency Use Authorization (EUA). The performance characteristics have been verified by the performing laboratory. Results must be considered in the clinical context and a negative result does not rule out infection. Interpretive data last revised January 04, 2022. us Duke Trent MD PhD LAB MICROBIOLOGY - GEN ERAL ORDERABLES Final Result Performing Organization Address City/[facility]/ZIP Co de Phone Number [facility] [place] [address] * (ABNORMAL) POC Blood Gas and Chemistries, Arterial - (05/02/2022 6:15 AM CDT) Glucose, POC 112 70 - 199 mg/dL [facility] Hct, POC 39.0(L) 41.4 - 51.6 % [facility] Total Hb, POC 13.0(L) 13.8 - 17.2 g/dL [facility] Blood 05/02/2022 6:15 AM CDT 05/02/2022 6:15 AM CDT us Guille Guillaume MD LAB POCT ORDERABLES - DEVICE Final Result Performing Organization Address City/[facility]/[place] [address] * Type and screen (05/02/2022 6:08 AM CDT) ABO Rh O Positive [facility] Vishal, indirect Negative [facility] Blood 05/02/2022 6:08 AM CDT 05/02/2022 6:17 AM CDT Narrative [facility] - 05/02/2022 7:17 AM CDT Has the patient had Daratumumab or Isatuximab in the past 6 months?->No Gage Norris DIRECTOR OF PROGRAMMING LAB BLOOD BANK TEST ORDERA BLES Final Result [facility] Department [place] [address] documented in this encounter Visit Diagnoses Diagnosis Tear of left rotator cuff- Primary Left rotator cuff tear arthropathy documented in this encounter Admitting Diagnoses Diagnosis Tear of left rotator cuff Left rotator cuff tear arthropathy documented in this encounter Administered Medications Inactive Administered Medications - up to 3 most recent administrations Medication Order MAR Action Action Date Dose Rate Site acetaminophen (TYLENOL) tablet 1,000 mg 1,000 mg, oral, Every 6 hours scheduled, First dose on Sun05/02/22 at 1500, Indications: PainIndications:Pain Given 05/03/2022 7:42 AM CDT 1,000 mg Given 05/02/2022 10:39 PM CDT 1,000 mg Given 05/02/2022 1:19 PM CDT 1,000 mg amLODIPine (NORVASC) tablet 5 mg 5 mg, oral, Every morning, First dose on Sun05/02/22 at 1215 Given 05/03/2022 7:43 AM CDT 5 mg Given 05/02/2022 1:20 PM CDT 5 mg Carrier Fluids for Secondary Infusion - 0.9% Sodium Chloride 30 mL, intravenous, As needed, For priming tubing and/or flushing, Starting on Sun05/02/22 at 1131, 0-250 ml/hr to flush line after IV infusions when no maintenance IV ordered. Infuse 30mL at the same rate as the secondary infusion. Run as primary IV, not intended for KVO. Carrier Fluids for Secondary Infusion - 0.9% Sodium Chloride 30 mL, intravenous, As needed, For priming tubing and/or flushing, Starting on Sun05/02/22 at 1131, 0-250 ml/hr to flush line after IV infusions when no maintenance IV ordered. Infuse 30mL at the same rate as the secondary infusion. Run as primary IV, not intended for KVO. carvediloL (COREG) tablet 25 mg 25 mg, oral, 2 times daily, First dose (after last modification) on Sun05/02/22 at 2100 Given 05/03/2022 7:42 AM CDT 25 mg Given 05/02/2022 10:42 PM CDT 25 mg ceFAZolin (ANCEF) 2,000 mg/20 mL in sterile water (premix) 2,000 mg 2,000 mg, intravenous, at 400 mL/hr, Administer over 3 Minutes, Every 8 hours, First dose on Sun05/02/22 at 1400, For 2 doses, Starting 8 hours after last kaia-operative dose, Indications: Prophylaxis, SurgicalIndications:Prophylaxis, Surgical Given 05/02/2022 10:48 PM CDT 2,000 mg 400 mL/hr Given 05/02/2022 1:21 PM CDT 2,000 mg 400 mL/hr celecoxib (CeleBREX) capsule 200 mg 200 mg, oral, Once, On Sun05/02/22 at 0630, For 1 dose, Pre-Op Given 05/02/2022 6:33 AM CDT 200 mg celecoxib (CeleBREX) capsule 200 mg 200 mg, oral, 2 times daily, First dose on Sun05/03/22 at 0900, Indications: PainIndications:Pain Given 05/03/2022 7:42 AM CDT 200 mg cloNIDine (CATAPRES) tablet 0.1 mg 0.1 mg, oral, 2 times daily, First dose on Sun05/02/22 at 1215 Given 05/03/2022 7:42 AM CDT 0.1 mg Given 05/02/2022 10:39 PM CDT 0.1 mg Given 05/02/2022 1:19 PM CDT 0.1 mg cyclobenzaprine (FLEXERIL) tablet 10 mg 10 mg, oral, 2 times daily, First dose on Sun05/02/22 at 1215 Given 05/03/2022 7:45 AM CDT 10 mg Given 05/02/2022 10:39 PM CDT 10 mg Given 05/02/2022 1:20 PM CDT 10 mg dextrose (D10W) 10% bolus 250 mL 250 mL, intravenous, at 1,000 mL/hr, Administer over 15 Minutes, Every 15 min PRN, blood glucose less than 70 mg/dL and UNABLE to swallow/take PO glucose/juice., Starting on Sun05/02/22 at 1131, After treatment for hypoglycemia, recheck BG followed by treatment every 15 minutes until the BG is greater than 100 mg/dL. Then check BG 1 hour post treatment. If BG is less than 100 mg/dL, repeat Q15 minute BG checks and treatment. Call MD for each episode of hypoglycemia., Indications: hypoglycemic disorderIndications:hypoglycemic disorder dextrose gel in packet 15 g 15 g, oral, Every 15 min PRN, low blood sugar, blood glucose less than 70 mg/dL, Starting on Sun05/02/22 at 1131, If patient is alert and able to eat/drink, give 15 gm glucose or one juice (4 fluid ounces) NOT ORANGE JUICE. After treatment for hypoglycemia, recheck BG followed by treatment every 15 minutes until the BG is greater than 100 mg/dL. Then check BG 1 hour post-treatment. If BG is less than 100 mg/dL, repeat Q15 minute BG checks and treatment. Call MD for each episode of hypoglycemia., Indications: hypoglycemic disorderIndications:hypoglycemic disorder docusate sodium (COLACE) capsule 100 mg 100 mg, oral, 2 times daily, First dose on Sun05/02/22 at 1215, Hold for diarrhea, Indications: constipationIndications:constipation Given 05/03/2022 7:43 AM CDT 100 mg Given 05/02/2022 10:39 PM CDT 100 mg Given 05/02/2022 1:19 PM CDT 100 mg glucagon injection 1 mg 1 mg, intramuscular, Every 30 min PRN, low blood sugar, blood glucose less than 70 mg/dL AND no IV access AND unable to take PO glucose/juice., Starting on Sun05/02/22 at 1131, After Glucagon is administered, position patient on side if possible to avoid aspiration. Obtain IV access. Follow glucagon treatment with glucose treatment or IV dextrose. After treatment for hypoglycemia, recheck BG followed by treatment every 15 minutes until the BG is greater than 100 mg/dL. Then check BG 1 hour post treatment. If BG is less than 100 mg/dL, repeat Q15 minute BG checks and treatment. Call MD for each episode of hypoglycemia. Reconstitute 1 mg vial with 1 mL SWFI. Use immediately following reconstitution. hydroCHLOROthiazide (HYDRODIURIL) tablet 12.5 mg 12.5 mg, oral, Daily, First dose on Sun05/02/22 at 1215 Given 05/03/2022 7:42 AM CDT 12.5 mg Given 05/02/2022 1:20 PM CDT 12.5 mg insulin lispro (HumaLOG, ADMELOG) 100 unit/mL injection 0-4 Units 0-4 Units, subcutaneous, Nightly, First dose on Sun05/02/22 at 2100, Blood glucose mg/dL: 199 or less: No insulin 200-249: add 1 unit 250-299: add 2 units 300-349: add 3 units and notify physician for adjustment of insulin orders. 350-399: add 4 units and notify physician for adjustment of insulin orders. Over 400: Notify physician for adjustment of insulin orders. Do NOT hold for NPO Status, Indications: Diabetes MellitusIndications:Diabetes Mellitus insulin lispro (HumaLOG, ADMELOG) 100 unit/mL injection 0-5 Units 0-5 Units, subcutaneous, 3 times daily with meals, First dose on Sun05/02/22 at 1215, Blood glucose mg/dL: 149 or less: No insulin 150-199: add 1 unit 200-249: add 2 units 250-299: add 3 units 300-349: add 4 units and notify physician for adjustment of insulin orders. 350-399: add 5 units and notify physician for adjustment of insulin orders. Over 400: Notify physician for adjustment of insulin orders. Do NOT hold for NPO Status, Indications: Diabetes MellitusIndications:Diabetes Mellitus Lactated Ringer's (LR) infusion 125 mL/hr, intravenous, Continuous, Starting on Sun05/02/22 at 1030, Phase I, New Bag 05/02/2022 10:58 AM CDT 125 mL/hr 125 mL/hr ondansetron (ZOFRAN) injection 4 mg 4 mg, intravenous, Administer over 2 Minutes, Every 6 hours PRN, nausea, vomiting, if not tolerating PO, Starting on Sun05/02/22 at 1131, Indications: nausea and vomitingIndications:nausea and vomiting ondansetron ODT (ZOFRAN-ODT) disintegrating tablet 4 mg 4 mg, oral, Every 6 hours PRN, nausea, vomiting, Starting on Sun05/02/22 at 1131, Indications: nausea and vomitingIndications:nausea and vomiting oxyCODONE (ROXICODONE) tablet 5 mg 5 mg, oral, Every 4 hours PRN, 1st line for pain, Starting on Sun05/02/22 at 1131, May repeat in 1 hour if pain is uncontrolled or increasing. Max 2 doses within 1 dosing interval., Indications: PainIndications:Pain rosuvastatin (CRESTOR) tablet 20 mg 20 mg, oral, Every morning, First dose on Sun05/02/22 at 1215 Given 05/03/2022 7:43 AM CDT 20 mg Given 05/02/2022 1:20 PM CDT 20 mg sodium chloride 0.9% flush 0.5-20 mL 0.5-20 mL, intra-catheter, Every 8 hours scheduled, First dose on Sun05/02/22 at 1400, Flush volume based on line type and size. Given 05/02/2022 10:42 PM CDT 1 0 mL sodium chloride 0.9% flush 0.5-20 mL 0.5-20 mL, intra-catheter, As needed, line care, Starting on Sun05/02/22 at 1131, Flush volume based on line type and size. Flush before and after each use. sodium chloride 0.9% flush 0.5-20 mL 0.5-20 mL, intra-catheter, Every 8 hours scheduled, First dose on Sun05/02/22 at 1400, Flush volume based on line type and size. Given 05/02/2022 10:43 PM CDT 1 0 mL Given 05/02/2022 1:21 PM CDT 10 mL sodium chloride 0.9% flush 0.5-20 mL 0.5-20 mL, intra-catheter, As needed, line care, Starting on Sun05/02/22 at 1131, Flush volume based on line type and size. Flush before and after each use. sodium chloride 0.9% infusion 50 mL/hr, intravenous, Continuous, Starting on Sun05/02/22 at 1030, Phase I & Post-op Floor New Bag 05/02/2022 10:32 AM CDT 50 mL/hr 50 mL/hr documented in this encounter Discontinued Medications Medication Sig Discontinue Reason Start Date End Da te betamethasone dipropionate (DIPROLENE) 0.05 % ointment Apply 1 application topically every morning Stop Taking at Discharge 10/17/2020 05/03/[address] (VOLTAREN) 75 mg EC tablet Take 75 mg by mouth every morning Stop Taking at Discharge 03/05/2022 05/03/2022 acetaminophen ER (TYLENOL) 650 mg 8 hr tablet Take 650 mg by mouth 2 (two) times a day Stop Taking at Discharge 05/03/2022 documented as of this encounter Active and Recently Administered Medications Times are shown in CDT. Scheduled Medication Order 05/01/2022 05/02/2022 05/03/2022 acetaminophen (TYLENOL) tablet 1,000 mg 1,000 mg, oral, Every 6 hours scheduled, First dose on Sun05/02/22 at 1500, Indications: Pain 1319 (Given - Provider: Mimi Darby RN)2239 (Given - Provider: Dayana Tamayo RN) 0419 (Not Given - Provider: Dayana Tamaoy RN - Reason: Patient/family refused - Comment: requested no tylenol if sleep)0742 (Given - Provider: Meenakshi Chavez, ANA) amLODIPine (NORVASC) tablet 5 mg 5 mg, oral, Every morning, First dose on Sun05/02/22 at 1215 1320 (Given - Provider: Mimi Darby RN) 0743 (Given - Provider: Meenakshi Chavez, RN) carvediloL (COREG) tablet 25 mg 25 mg, oral, 2 times daily, First dose (after last modification) on Sun05/02/22 at 2100 2242 (Given - Provider: Dayana Tamayo RN) 0742 (Given - Provider: Meenakshi Chavez, ANA) ceFAZolin (ANCEF) 2,000 mg/20 mL in sterile water (premix) 2,000 mg (COMPLETED) 2,000 mg, intravenous, at 400 mL/hr, Administer over 3 Minutes, Once, On Sun05/02/22 at 0630, For 1 dose, Pre-Op, Administer within 60 minutes of incision., Indications: Prophylaxis, Surgical 0806 (Given - Provider: Jose Carrera CRNA) ceFAZolin (ANCEF) 2,000 mg/20 mL in sterile water (premix) 2,000 mg (COMPLETED) 2,000 mg, intravenous, at 400 mL/hr, Administer over 3 Minutes, Every 8 hours, First dose on Sun05/02/22 at 1400, For 2 doses, Starting 8 hours after last kaia-operative dose, Indications: Prophylaxis, Surgical 1321 (Given - Provider: Mimi Darby RN)2248 (Given - Provider: Dayana Tamayo RN) celecoxib (CeleBREX) capsule 200 mg (COMPLETED) 200 mg, oral, Once, On Sun05/02/22 at 0630, For 1 dose, Pre-Op 0633 (Given - Provider: Phuong Paz) celecoxib (CeleBREX) capsule 200 mg 200 mg, oral, 2 times daily, First dose on Sun05/03/22 at 0900, Indications: Pain 0742 (Given - Provid er: Meenakshi Chavez RN) cloNIDine (CATAPRES) tablet 0.1 mg 0.1 mg, oral, 2 times daily, First dose on Sun05/02/22 at 1215 1319 (Given - Provider: Mimi Darby RN)2239 (Given - Provider: Dayana Tamayo RN) 0742 (Given - Provider: Meenakshi Chavez RN) clopidogreL (PLAVIX) tablet 75 mg 75 mg, oral, Every morning, First dose on Sun05/02/22 at 1215, On hold since Sun05/02/2022 at 1131 until manually unheld 1131 (Held by Provider - Provider: Mimi Darby RN - Reason: Hold for Procedure)1215 (Dose Auto Held) 0900 (Not Given - Provider: Meenakshi Chavez RN - Reason: See Provider Order)1601 (Unheld by Provider - Provider: Automatic Discharge Provider) cyclobenzaprine (FLEXERIL) tablet 10 mg 10 mg, oral, 2 times daily, First dose on Sun05/02/22 at 1215 1320 (Given - Provider: Mimi Darby RN)2239 (Given - Provider: Dayana Tamayo RN) 0745 (Given - Provider: Meenakshi Chavez RN) docusate sodium (COLACE) capsule 100 mg 100 mg, oral, 2 times daily, First dose on Sun05/02/22 at 1215, Hold for diarrhea, Indications: constipation 1319 (Given - Provider: Mimi Darby RN)2239 (Given - Provider: Dayana Tamayo RN) 0743 (Given - Provider: Meenakshi Chavez, RN) hydroCHLOROthiazide (HYDRODIURIL) tablet 12.5 mg 12.5 mg, oral, Daily, First dose on Sun05/02/22 at 1215 1320 (Given - Provider: Mimi Darby RN) 0742 (Given - Provider: Meenakshi Chavez, RN) insulin lispro (HumaLOG, ADMELOG) 100 unit/mL injection 0-4 Units 0-4 Units, subcutaneous, Nightly, First dose on Sun05/02/22 at 2100, Blood glucose mg/dL: 199 or less: No insulin 200-249: add 1 unit 250-299: add 2 units 300-349: add 3 units and notify physician for adjustment of insulin orders. 350-399: add 4 units and notify physician for adjustment of insulin orders. Over 400: Notify physician for adjustment of insulin orders. Do NOT hold for NPO Status, Indications: Diabetes Mellitus 2243 (Not Given - Provider: Dayana Tamayo RN - Reason: Order parameters not met) insulin lispro (HumaLOG, ADMELOG) 100 unit/mL injection 0-5 Units 0-5 Units, subcutaneous, 3 times daily with meals, First dose on Sun05/02/22 at 1215, Blood glucose mg/dL: 149 or less: No insulin 150-199: add 1 unit 200-249: add 2 units 250-299: add 3 units 300-349: add 4 units and notify physician for adjustment of insulin orders. 350-399: add 5 units and notify physician for adjustment of insulin orders. Over 400: Notify physician for adjustment of insulin orders. Do NOT hold for NPO Status, Indications: Diabetes Mellitus 1339 (Not Given - Provider: Mimi Darby RN - Reason: Order parameters not met)1645 (Not Given - Provider: Mimi Darby RN - Reason: Order parameters not met) 0759 (Not Given - Provider: Meenakshi Chavez RN - Reason: Contraindicated - Comment: Blood glucose 140) rosuvastatin (CRESTOR) tablet 20 mg 20 mg, oral, Every morning, First dose on Sun05/02/22 at 1215 1320 (Given - Provider: Mimi Darby RN) 0743 (Given - Provider: Meenakshi Chavez RN) sodium chloride 0.9% flush 0.5-20 mL 0.5-20 mL, intra-catheter, Every 8 hours scheduled, First dose on Sun05/02/22 at 1400, Flush volume based on line type and size. 1321 (Canceled Entry - Provider: Mimi Darby RN)2242 (Given - Provider: Dayana Tamayo RN) 0719 (Canceled Entry - Provider: Meenakshi Chavez, ANA) sodium chloride 0.9% flush 0.5-20 mL(Linked Group 1) 0.5-20 mL, intra-catheter, Every 8 hours scheduled, First dose on Sun05/02/22 at 1400, Flush volume based on line type and size. 1321 (Given - Provider: Mimi Darby RN)2243 (Given - Provider: Dayana Tamayo RN) 0719 (Canceled Entry - Provider: Meenakshi Chavez RN) Continuous Medication Order 05/01/2022 05/02/2022 05/03/2022 bupivacaine preservative free in 0.9% sodium chloride 0.2 % (2 mg/mL) in On-Q reservoir 550 mL 8 mL/hr, perineural, Continuous, Starting on Sun05/02/22 at 0900, Phase I & Post-op Floor, Catheter Site: Interscalene, Catheter Side: Left, Indications: Pain Treatment Adjunct 1136 (Continued from OR - Provider: Mimi Darby RN) Lactated Ringer's (LR) infusion 125 mL/hr, intravenous, Continuous, Starting on Sun05/02/22 at 1030, Phase I, 1058 (New Bag - Provider: Millie Dupree RN) 1601 (Due: Stopped) Lactated Ringer's (LR) infusion (CANCELED) 30 mL/hr, intravenous, Continuous, Starting on Sun05/02/22 at 0630 0552 (Due)0630 (Due)0730 (New Bag - Provider: Jose Carrera CRNA)0826 (New Bag - Provider: Jose Carrera CRNA)0950 (Anesthesia Volume Adjustment - Provider: Jose Carrera CRNA)1132 (Stopped - Provider: Mimi Darby RN) sodium chloride 0.9% infusion 50 mL/hr, intravenous, Continuous, Starting on Sun05/02/22 at 1030, Phase I & Post-op Floor 1032 (New Bag - Provider: Millie Dupree, ANA)1055 (Stopped - Provider: Millie Dupree RN)1056 (Stopped - Provider: Millie Dupree RN - Comment: need to change to 125/hr)1057 (Stopped - Provider: Millie Dupree RN)1058 (Canceled Entry - Provider: Millie Dupree RN)1059 (Stopped - Provider: Millie Dupree RN) PRN Medication Order 05/01/2022 05/02/2022 05/03/2022 Carrier Fluids for Secondary Infusion - 0.9% Sodium Chloride 30 mL, intravenous, As needed, For priming tubing and/or flushing, Starting on Sun05/02/22 at 1131, 0-250 ml/hr to flush line after IV infusions when no maintenance IV ordered. Infuse 30mL at the same rate as the secondary infusion. Run as primary IV, not intended for KVO. Carrier Fluids for Secondary Infusion - 0.9% Sodium Chloride(Linked Group 1) 30 mL, intravenous, As needed, For priming tubing and/or flushing, Starting on Sun05/02/22 at 1131, 0-250 ml/hr to flush line after IV infusions when no maintenance IV ordered. Infuse 30mL at the same rate as the secondary infusion. Run as primary IV, not intended for KVO. dextrose (D10W) 10% bolus 250 mL(Linked Group 2) 250 mL, intravenous, at 1,000 mL/hr, Administer over 15 Minutes, Every 15 min PRN, blood glucose less than 70 mg/dL and UNABLE to swallow/take PO glucose/juice., Starting on Sun05/02/22 at 1131, After treatment for hypoglycemia, recheck BG followed by treatment every 15 minutes until the BG is greater than 100 mg/dL. Then check BG 1 hour post treatment. If BG is less than 100 mg/dL, repeat Q15 minute BG checks and treatment. Call MD for each episode of hypoglycemia., Indications: hypoglycemic disorder dextrose gel in packet 15 g(Linked Group 2) 15 g, oral, Every 15 min PRN, low blood sugar, blood glucose less than 70 mg/dL, Starting on Sun05/02/22 at 1131, If patient is alert and able to eat/drink, give 15 gm glucose or one juice (4 fluid ounces) NOT ORANGE JUICE. After treatment for hypoglycemia, recheck BG followed by treatment every 15 minutes until the BG is greater than 100 mg/dL. Then check BG 1 hour post-treatment. If BG is less than 100 mg/dL, repeat Q15 minute BG checks and treatment. Call MD for each episode of hypoglycemia., Indications: hypoglycemic disorder glucagon injection 1 mg 1 mg, intramuscular, Every 30 min PRN, low blood sugar, blood glucose less than 70 mg/dL AND no IV access AND unable to take PO glucose/juice., Starting on Sun05/02/22 at 1131, After Glucagon is administered, position patient on side if possible to avoid aspiration. Obtain IV access. Follow glucagon treatment with glucose treatment or IV dextrose. After treatment for hypoglycemia, recheck BG followed by treatment every 15 minutes until the BG is greater than 100 mg/dL. Then check BG 1 hour post treatment. If BG is less than 100 mg/dL, repeat Q15 minute BG checks and treatment. Call MD for each episode of hypoglycemia. Reconstitute 1 mg vial with 1 mL SWFI. Use immediately following reconstitution. ondansetron (ZOFRAN) injection 4 mg(Linked Group 3) 4 mg, intravenous, Administer over 2 Minutes, Every 6 hours PRN, nausea, vomiting, if not tolerating PO, Starting on Sun05/02/22 at 1131, Indications: nausea and vomiting ondansetron ODT (ZOFRAN-ODT) disintegrating tablet 4 mg(Linked Group 3) 4 mg, oral, Every 6 hours PRN, nausea, vomiting, Starting on Sun05/02/22 at 1131, Indications: nausea and vomiting oxyCODONE (ROXICODONE) tablet 5 mg 5 mg, oral, Every 4 hours PRN, 1st line for pain, Starting on Sun05/02/22 at 1131, May repeat in 1 hour if pain is uncontrolled or increasing. Max 2 doses within 1 dosing interval., Indications: Pain sodium chloride 0.9% flush 0.5-20 mL 0.5-20 mL, intra-catheter, As needed, line care, Starting on Sun05/02/22 at 1131, Flush volume based on line type and size. Flush before and after each use. sodium chloride 0.9% flush 0.5-20 mL(Linked Group 1) 0.5-20 mL, intra-catheter, As needed, line care, Starting on Sun05/02/22 at 1131, Flush volume based on line type and size. Flush before and after each use. sodium chloride 0.9% irrigation (CANCELED) As needed, Starting on Sun05/02/22 at 0853, Intra-Op 0853 (Given - Provider: Jesus Guillaume MD - Comment: via pulse savac) sodium chloride 0.9% irrigation (CANCELED) As needed, Starting on Sun05/02/22 at 0854, Intra-Op 0854 (Given - Provider: Rubia Wilde RN - Comment: on the back table.) Linked Groups Order Group 1: Saline lock IV (CANCELED) Routine, Once (Routine), On Sun05/02/22 at 1132, For 1 occurrence And sodium chloride 0.9% flush 0.5-20 mLJump to med 0.5-20 mL, intra-catheter, Every 8 hours scheduled, First dose on Sun05/02/22 at 1400, Flush volume based on line type and size. And sodium chloride 0.9% flush 0.5-20 mLJump to med 0.5-20 mL, intra-catheter, As needed, line care, Starting on Sun05/02/22 at 1131, Flush volume based on line type and size. Flush before and after each use. And Carrier Fluids for Secondary Infusion - 0.9% Sodium ChlorideJump to med 30 mL, intravenous, As needed, For priming tubing and/or flushing, Starting on Sun05/02/22 at 1131, 0-250 ml/hr to flush line after IV infusions when no maintenance IV ordered. Infuse 30mL at the same rate as the secondary infusion. Run as primary IV, not intended for KVO. Group 2: dextrose gel in packet 15 gJump to med 15 g, oral, Every 15 min PRN, low blood sugar, blood glucose less than 70 mg/dL, Starting on Sun05/02/22 at 1131, If patient is alert and able to eat/drink, give 15 gm glucose or one juice (4 fluid ounces) NOT ORANGE JUICE. After treatment for hypoglycemia, recheck BG followed by treatment every 15 minutes until the BG is greater than 100 mg/dL. Then check BG 1 hour post-treatment. If BG is less than 100 mg/dL, repeat Q15 minute BG checks and treatment. Call MD for each episode of hypoglycemia., Indications: hypoglycemic disorder Or dextrose (D10W) 10% bolus 250 mLJump to med 250 mL, intravenous, at 1,000 mL/hr, Administer over 15 Minutes, Every 15 min PRN, blood glucose less than 70 mg/dL and UNABLE to swallow/take PO glucose/juice., Starting on Sun05/02/22 at 1131, After treatment for hypoglycemia, recheck BG followed by treatment every 15 minutes until the BG is greater than 100 mg/dL. Then check BG 1 hour post treatment. If BG is less than 100 mg/dL, repeat Q15 minute BG checks and treatment. Call MD for each episode of hypoglycemia., Indications: hypoglycemic disorder Group 3: ondansetron ODT (ZOFRAN-ODT) disintegrating tablet 4 mgJump to med 4 mg, oral, Every 6 hours PRN, nausea, vomiting, Starting on Sun05/02/22 at 1131, Indications: nausea and vomiting Or ondansetron (ZOFRAN) injection 4 mgJump to med 4 mg, intravenous, Administer over 2 Minutes, Every 6 hours PRN, nausea, vomiting, if not tolerating PO, Starting on Sun05/02/22 at 1131, Indications: nausea and vomiting documented in this encounter Orders Medications Ordered That Joe ht Not Have Been Administered Count Last Ordered Date First Ordered Date acetaminophen (TYLENOL) tablet 1,000 mg 1 0 05/02/2022 bupivacaine preservative yanira e in 0.9% sodium chloride 0.2 % (2 mg/mL) in On-Q reservoir 550 mL 1 05/02/2022 Carrier Fluids for Secondary Infusion - 0.9% Sodium Chloride 3 05/02/2022 carvediloL (COREG) tablet 25 mg 1 ceFAZolin (ANCEF) 2,000 mg/2 0 mL in sterile water (premix) 2,000 mg 1 05/02/2022 clopidogreL (PLAVIX) tablet 75 mg 1 022 dextrose (D10W) 10% bolus 250 mL 1 05/02/20 dextrose gel in packet 15 g 1 05/02/2022 glucagon injection 1 mg 1 05/02/2022 HYDROmorphone (DILAUDID) injection 0.2 mg 1 05/02/2022 insulin lispro (HumaLOG, ADM ELOG) 100 unit/mL injection 0-4 Units 1 05/02/2022 insulin lispro (HumaLOG, ADM ELOG) 100 unit/mL injection 0-5 Units 1 05/02/2022 Lactated Ringer's (LR) bolus 500 mL 1 05/02 Lactated Ringer's (LR) infusion 1 naloxone (NARCAN) 0.4 mg/mL injection 0.04-0.4 mg 1 05/02/2022 ondansetron (ZOFRAN) injection 4 mg 1 05/02 ondansetron ODT (ZOFRAN-ODT) disintegrating tablet 4 mg 1 05/02/2022 oxyCODONE (ROXICODONE) tablet 5 mg 1 2021 sodium chloride 0.9% flush 0.5-20 mL 3 04/07 sodium chloride 0.9% irrigation 2 tranexamic acid (CYKLOKAPRON ) 1,000 mg/10 mL (100 mg/mL) solution 1,000 mg 1 05/02/2022 Lab Orders Without Results Count Last Ordered D ate First Ordered Date POCT GLUCOSE DEVICE 3 05/03/2022 05/02/20 Diet Count Last Ordered Date First Orde red Date ADULT DISCHARGE DIET 1 05/03/2022 Nursing Count Last Ordered Date First Orde red Date DISCHARGE ACTIVITY 12 05/03/2022 DISCHARGE CALL PROVIDER 2 05/03/2022 DISCHARGE DRESSING 2 05/03/2022 DISCHARGE INSTRUCTIONS 10 05/03/2022 NURSING COMMUNICATION 1 05/02/2022 Admission Count Last Ordered Date First Orde red Date INITIATE OUTPATIENT IN A BED 1 05/02/2022 Discharge Count Last Ordered Date First Orde red Date DISCHARGE PATIENT 1 05/03/2022 CORE MEASURES Count Last Ordered Date First Ord ered Date REASON FOR NO VTE PROPHYLAXI S - HOSPITAL ADMISSION - MEDICATIONS 1 05/02/2022 ADT Patient Update Count Last Ordered Date Firs t Ordered Date PROVIDER TREATMENT TEAM 1 05/02/2022 documented in this encounter Care Teams Inspecting Supervisor Relationship Specialty Start Date End Date Faisal Richardson DO [address] [place] [address] PCP - General Family Medicine 04/27/22 documented as of this encounter
--- OUTSIDE RECORDS SUMMARY | 2024-07-28 01:07 | XMS_ITS | Encounter Summary ---
Author Organization [facility] Address [address] [place] [address] Care Team Providers Care Licensed Pharmacist Name Role Phone Faisal Richardson DO Primary Care Provider Reason for Referral * Diagnostic Imaging (Routine) - Closed Specialty Diagnoses / Procedures Referred By Kd figueroa Referred To Contact Diagnoses Follow-up examination after orthopedic surgery S/P reverse total shoulder arthroplasty, left Procedures XR Shoulder Left 2 or More Views Guille Guillaume MD Phone: tel: fax: [address] [phone] Referral ID Status Reason Start Date Expiration Date Visits Re quested Visits Authorized [id number] Closed 05/12/2022 06/11/2023 1 1 Reason for Visit * Diagnostic Imaging (Routine) - Closed Specialty Diagnoses / Procedures Referred By Kd figueroa Referred To Contact Diagnoses Follow-up examination after orthopedic surgery S/P reverse total shoulder arthroplasty, left Procedures XR Shoulder Left 2 or More Views Guille Guillaume MD Phone: tel: fax: [address] [phone] Referral ID Status Reason Start Date Expiration Date Visits Re quested Visits Authorized [id number] Closed 05/12/2022 06/11/2023 1 1 Encounter Details Date Type Department Care Team (Latest Contact Info) Description 05/15/2022 10:30 AM CDT - 05/15/2022 11:59 PM CDT Hospital Encounter [facility] [address] [place] [address] Follow-up examination after orthopedic surgery; S/P reverse [...] VIEWS Schedule Routine, Read Routine (OP Routine) 05/15/2022 10:47 AM CDT Follow-up examination after orthopedic surgery S/P reverse [...] left documented in this encounter Care Teams Licensed Pharmacist Relationship Specialty Start Date End Date Faisal Richardson DO [facility] [place] [address] PCP - General Family Medicine 04/27/22 documented as of this encounter
--- OUTSIDE RECORDS SUMMARY | 2024-07-28 01:07 | XMS_ITS | Encounter Summary ---
Author Organization [facility] Healthcare Address [address] [place] [address] Care Team Providers Care Retail Brand Ambassador Name Role Phone BonnieFaisal klein Finch Primary Care Provider Reason for Visit * Auth/Cert Specialty Diagnoses / Procedures Referred By Kd figueroa Referred To Contact Diagnoses Tear of left rotator cuff, unspecified tear extent, unspecified whether traumatic Tear of left rotator cuff, unspecified tear extent, unspecified whether traumatic [M75.102] Procedures AL RECONSTR TOTAL SHOULDER IMPLANT LEFT REVERSE TOTAL SHOULDER ARTHROPLASTY Referral ID Status Reason Start Date Expiration Date Visits Re quested Visits Authorized [id number] 1 1 Encounter Details Date Type Department Care Team (Late st Contact Info) Description 05/02/2022 7:30 AM CDT - 05/02/2022 10:10 AM CDT Surgery [facility] Operating Room [address] [place] [address] Guille Guillaume MD [address] [facility] [address] [place] [address] LEFT REVERSE TOTAL SHOULDER ARTHROPLASTY Surgery Details Date/Time Status Location OR Service Patient Class Case Cl ass Case Type Trauma Case? 05/02/2022 7:30 AM Posted [facility] OR POD 2 208 Orthopaedics Outpatient in Bed Elective Panel 1 Procedure LRB Anes Op Region Wound Class Comments LEFT REVERSE TOTAL SHOULDER ARTHROPLASTY Left Choice Shoulder Class I - Clean Surgeon Surgeon Role Service Panel Torrey Bonilla MD Fellow Orthopaedics 1 Guille Guillaume MD Primary Orthopaedics 1 Case Notes 04/19@1104: Yogesh Moore via in-basket case moved up due to case moving. SR Special Needs TBD documented in this encounter Social History Tobacco [...] Sign Reading Time Taken Comments Blood Pressure 145/78 05/02/2022 10:10 AM CDT Pulse 76 05/02/2022 10:10 AM CDT Temperature 36 ??C (96.8 ??F) 05/02/2022 10:00 AM CDT Respiratory Rate 16 05/02/2022 10:10 AM CDT Oxygen Saturation 97% 05/02/2022 10:10 AM CDT Inhaled Oxygen Concentration - - Weight - - Height - - Body Mass Index - - documented in this encounter Discharge Summaries * Manuela Rahman NP - 05/03/2022 10:20 AM CDT Inpatient Orthopedic Shoulder Discharge Summary Admitting Provider: Guille Guillaume MD Discharge Provider: Guille Guillaume,* Primary Care Physician at Discharge: Faisal Richardson DO [phone] Admission Date: 05/02/2022 Discharge Date: 05/03/2022 Primary [...] Your Medications These medications were sent to [facility] [place], [place] - [address] [facility] 1 [facility] [address] celecoxib 200 mg capsule docusate sodium 100 mg capsule oxyCODONE 5 mg immediate release tablet Information about where to get these medications is not yet available Ask your nurse or doctor about these medications acetaminophen 500 mg capsule Follow Up: Future Appointments Date Time Provider Department Center 05/15/2022 10:50 AM Guille Guillaume MD [facility] Cosigned by Guille Guillaume MD [...] SYSTEMS: A. ON-Q PAIN RELIEF SYSTEM WITH BJSMMA-F-IEGS DEVICE The puiwug-f-oqup device is a flow controller that allows your doctor to adjust the amount of medicine you receive to best meet your needs. Your Xlalxd-J-Owjj device will be 2-14 ml/hr. WARNING: Do not change the flow rate on the Towydw-G-Wqsl dial unless instructed by your doctor. Changing the flow rate without your doctor's instruction may result in the wrong dose of medicine delivered which could cause serious injury. Do not tape tubing to skin. The Syqxmy-D-Dibh device should be worn outside your clothing. [...] your doctor. 24 Hour Product Support Hotline [phone] or [employer] (now [employer]) Follow up with your healthcare provider as directed: Write down your questions so you remember to ask them during your visits. ?? 2017 [employer] Information is for End User's use only and may not be sold, redistributed or otherwise used for commercial purposes. All illustrations and images included in CareNotes?? are the copyrighted property of [employer] or [employer]. The above information is an medical aides teacher only. It is not intended as medical advice for individual conditions or treatments. Talk to your doctor, nurse or pharmacist before following any medical regimen to see if it is safe and effective for you. If you have any emergent questions, please call the Acute Pain Service at [facility] @ [phone]. documented in this encounter Medications at Time [...] Khanna MD - 05/03/2022 11:54 AM CDT [facility] Follow-Up Telephone Call Catheter Placement Date: 05/02 Catheter location: Left Interscalene Infusion: Bupivacaine 0.2% @ 6 ml/hr - catheter has since been removed, but was previously running at this rate Pain at rest: 110 Pain with activity: 210 Analgesia: Excellent Side Effects: None Catheter Site Issues: No issues Plan: Catheter has been removed successfully by patient Catheter removed, tip intact. Will no longer call patient. Casandra Khanna MD Acute Pain Service; [facility] 05/06/2022 12:03 PM Cosigned by Keke Soni [...] discharge needs arise, please contact the covering spring encaser. Family to provide transportation home. Pt has home DME. No other needs identified at this time. * Annemarie Jones GROOVING MACHINE OPERATOR - 05/03/2022 10:50 AM CDT Images from the original note were not included. Pain Service Analgesic Catheter Follow up Jose Rutledge, [id number] History Mr. Jose Rutledge is a 56 [...] Carbohydrate Diet effective now Question Answer Comment ([facility]) Diet type Restricted Diabetic: Consistent Carbohydrate 05/02/22 [...] chloride 0.9%, 0.5-20 mL, 10 mL at 05/02/22 2243 AND sodium chloride 0.9%, 0.5-20 mL AND [...] NP Acute Pain Service Department of Anesthesiology [facility], [facility] If you have questions or concerns, please contact the [facility] petroleum refining equipment operator to page the Pain Management service. After hours, this is not an in-house pager, please reserve non-urgent calls from [phone]. We are happy to address emergent calls 26/02. 05/03/22 10:50 AM For patients or family members viewing this note through [email or web address] programs: This note was written as a [...] Chair Prior Function Prior Function Level of [place]: Independent with ADLs, Independent functional transfers, Independent with ambulation, Independent with homemaking with ambulation Lives With: Spouse Receives Help From: Spouse/Significant other (lead pourer assist post discharge) Driving: Yes Mode of [...] name and address after me: Nikos Jones [address] [place] [address] Without looking at the clock, tell me [...] Note Admit Date: 05/02/2022 Hospital Day: 0 [place] Procedure(s): L rTSA Interval History: NAEO. AFVSS. [...] MD Clinical Fellow Shoulder and Elbow Service [facility] Orthopedics [facility] Please call with questions during daytime. See below for overnight issues. If you know the resident's name on the appropriate orthopaedic surgery team, please use [email or web address] to page resident directly. If questions arise and the appropriate resident can't be reached or you are calling overnight, please contact [phone] ([place] 7:30 PM - 6:30 AM - Floor Resident) or [phone] (24 hours/day - Consult Resident) Cosigned by Guille Guillaume MD at 05/03/2022 3:55 PM CDT * OlmanMargueriteANA - 05/02/2022 2:12 PM CDT CM Initial [...] hospital. Primary Source of Transportation: Minerva (spouse) [phone] Does the patient need discharge transport arranged?: No (05/02/22 141) Health Insurance Coverage: [employer] PPO POS Prescription Coverage: yes Pharmacy: [facility] [place] [address] Primary Care Provider: Faisal Richardson DO Prior to Admission: Primary Caregiver: Self Who does the patient or legal guardian want to receive education instruction and discharge plans for after care assistance?: Name Caregiver Name: Minerva Rutledge Relationship to patient: Spouse Caregiver Contact Information: [phone] Support System: Spouse/Significant Other Support system contact info (name, phone, availablity): Minerva Rutledge(spouse)[phone] Home Care Services: No Durable Medical Equipment: [...] Collaboration with patient, MD, direct care nurse, Polysomnograph Tech, and other members of the health care team to assure needed interventions completed. 2. Return patient to optimal level of self-care post discharge. 3. Waste Handling Technician will follow for Discharge Planning - interventions [...] Planning Preoperative Evaluation Record Evaluation type/location: CPAP [facility] Planned procedure site: [facility] [place] (Pods 2/3/5/GAMING MANAGER) Date: 04/07/22 Anesthesia Evaluation Jose Rutledge is [...] and carotid artery stent Comments: Follows / [facility] neurology clinic [facility] 01/2022 Cardiovascular + Hypertension + Hyperlipidemia + CAD (per 12/2021 cards note) + Systolic or diastolic dysfunction w/o CHF Diastolic function: stage I - impaired relaxation LVEF:50-60%. + Current valvular disease (10/2021 TTE) - - moderate-severe; Pertinent negatives: [place] ; CABG ; valve replacement; atrial fibrillation; arrhythmia; pacemaker/ICD;PVD; DVT/PE; negative for CHF; drug-eluting stent(s); bare metal stent(s); unknown stent(s) type and coronary angioplasty Comments: Follows / [facility] 12/2021 Aortic Stenosis. His echocardiogram in [...] discussed with: Chanell Levi MD Additional comments: Jose Rutledge is a 56 y.o. male [...] of vaccination status is available in the Epic Immunization tab. . Plan for pre-procedure COVID19 [...] therapy when feasible in the postoperative period. iFit staff message sent to surgeon's office. Please call the CPAP attending ([phone]) with any questions. Preoperative evaluation performed by [...] (NORVASC) 5 mg tablet 04/07/2022 03/05/22 -- Theresa Callejas MD betamethasone dipropionate (DIPROLENE) 0.05 % ointment 04/07/2022 10/17/20 -- ProviderTheersa MD carvediloL (COREG) 25 mg tablet 04/07/2022 03/05/22 -- ProviderTheresa MD cloNIDine (CATAPRES) 0.1 mg tablet 04/07/2022 03/05/22 -- Theresa Callejas MD clopidogreL (PLAVIX) 75 mg tablet 04/07/2022 03/05/22 -- Theresa Callejas MD cyclobenzaprine (FLEXERIL) 10 mg tablet 04/07/2022 03/05/22 -- Theresa Callejas MD diclofenac DR (VOLTAREN) 75 mg EC tablet 04/07/2022 03/05/22 -- ProviderTheresa MD losartan-hydroCHLOROthiazide (HYZAAR) 100-12.5 mg per tablet 04/07/2022 03/05/22 -- Theresa Callejas MD metFORMIN (GLUCOPHAGE) 1,000 mg tablet 04/07/2022 03/05/22 -- Theresa Callejas MD multivit-min/folic/vit K/lycop (ONE-A-DAY MEN'S MULTIVITAMIN ORAL) [...] malignant neoplasm - (Added by HAYDEN Conv) ??? Cancer Father Family history of [...] ECG(s): 10/25/21 - CE ? Measurements Intervals ?Gates ? Rate: ? 67 ? P: ?11 AL: ? 191 ?QRS: ?-13 QRSD: ? 105 [...] septum: Agitated saline contrast study shows no dlnia-nr-gtvl shunt. Stress test(s): N/A Cardiac catheterization(s): N/A [...] at time of this dictation (0934 hours 10/25/21 CTA head/neck + CT cerebral perfusion - [...] vault, with mild version correction of the havasupai glenoid face. Standard glenoid preparation was performed [...] the screw out with a heavy needle transporter driver, we were unable to safely remove [...] and the humerus was prepared according to [employer] instrumentation. At this point, a provisional implant [...] Date: 05/02/2022 Time: 3:43 PM ATTENDING ATTESTATION Catherine, Dr. Guille Guillaume, am the Attending Surgeon of record for this procedure. I was present and scrubbed for all critical portions of the case including surgical approach and placement of the glenoid and humeral components. I was immediately available for non-critical portions of the case including superficial closure. IMPLANTS: Implant Name Type Inv. Item Serial No. Artificial Glass Eye Maker Lot No. [id number] No. Used Action [employer] GLENOSPHERE XTEND LATERALIZED 42MM +4MM STANDARD [id number] - [id number] [employer] Glenosphere Xtend Lateralized 42MM +4MM Standard [id number] [employer] Orth[employer]edics IncLeft 1 Implanted [employer] DELTA XTEND 4.5MM 24MM LOCK SHOULDER GLENOID SCREW BONE METAGLENE [id number] - [id number] [employer] Delta Xtend 4.5mm 24mm Lock Shoulder Glenoid Screw Bone Metaglene [id number] [employer] Left 1 Implanted [employer] DELTA XTEND 4.5MM 48MM LOCK SHOULDER GLENOID SCREW BONE METAGLENE [id number] - [id number] [employer] Delta Xtend 4.5mm 48mm Lock Shoulder Glenoid Screw Bone Metaglene [id number] [employer] Left 1 Implanted [employer] DELTA XTEND 27MM CEMENTLESS SHOULDER STANDARD COMPONENT GLENOID LATEX FREE [id number] - [id number] [employer] Delta Xtend 27mm Cementless Shoulder Standard ComponentGlenoid Latex Free [id number] [employer] Left 1 Implanted [employer] DELTA XTEND 4.5MM 36MM LOCK SHOULDER GLENOID SCREW BONE METAGLENE [id number] - [id number] [employer] Delta Xtend 4.5mm 36mm Lock Shoulder Glenoid Screw Bone Metaglene [id number] [employer] Left 1 Implanted [employer] IMPLANT SHLDR XTEND MODECC 145EPI POR SZ1 LT [id number] - [id number] [employer] IMPLANT SHLDR XTEND MODECC 145EPI POR SZ1 LT [id number] [employer] Left 1 Implanted [employer] GLOBAL UNITE 10MM 113MM MODULAR SHOULDER STANDARD STEM HUMERAL [id number] - [id number] [employer] Global Unite 10mm 113mm Modular Shoulder Standard Stem Humeral [id number] [employer] Left 1 Implanted [employer] DELTA XTEND 42MM SHOULDER +3MM STANDARD CUP HUMERAL POLYETHYLENE LATEX FREE [id number] - [id number] [employer] Delta Xtend 42mm Shoulder +3mm Standard Cup Humeral Polyethylene Latex Free [id number] [employer] Left 1 Implanted * Brief Op Note - Torrey Bonilla MD - 05/02/2022 7:30 AM CDT Operative Progress Note Surgical Team: Surgeon(s) and Role: * Guille Guillaume MD - Primary Anesthesiologist: Duke Trent MD PhD JAILKEEPER: Jose Carrera CRNA Airport Operations Coordinator: Socorro Brown DATE OF SURGERY : 05/02/2022 [...] POC 140 70 - 199 mg/dL JI MAK Blood 05/03/2022 7:57 AM CDT 05/03/2022 7:57 AM CDT us Guille Guillaume MD LAB POCT ORDERABLES - DEVICE Final Result JI INGRAM [facility] Department [place] [address] * (ABNORMAL) CBC without differential (05/03/2022 7:52 AM CDT) [facility] WBC 6.9 3.8 - 9.9 K/cumm [facility] Hgb 11.8(L) 13.0 - 17.5 g/dL [facility] Hct 35.3(L) 38.9 - 50.3 % [facility] Plt 133(L) 150 - 400 K/cumm [facility] MPV 9.3 9.1 - 12.3 fL [facility] RBC 3.71(L) 4.30 - 5.80 M/cumm [facility] MCV 95.1 81.3 - 96.4 fL [facility] MCH 31.8 27.1 - 33.3 pg [facility] MCHC 33.4 32.3 - 35.7 g/dL [facility] RDW CV 13.6 11.1 - 14.9 % [facility] RDW SD 47.5 35.7 - 48.1 fL [facility] NRBC abs 0.00 0.00 - 0.01 K/cumm [facility] Blood 05/03/2022 7:52 AM CDT 05/03/2022 8:21 AM CDT us Manuela Rahman NP LAB BLOOD ORDERABLES Final Res ult [facility] Department [place] [address] * eGFR (05/03/2022 6:43 AM CDT) [facility] eGFR >90 90 - 130 mL/min/1. 73 m2 [facility] Comment: Interpretive Data Reference Interval Normal ?>/= [...] of Race in Diagnosing Kidney Disease, JASN 2020). The CKD-EPI equation should not be used for patients with unstable renal function and has not been validated in children and those over 70. Current interpretive data was last reviewed 2021. Blood 05/03/2022 6:43 AM CDT 05/03/2022 6:51 AM CDT us Guille Guillaume MD LAB BLOOD ORDERABLES F inal Result [facility] Department [place] [address] * (ABNORMAL) Basic metabolic panel (05/03/2022 6:43 AM CDT) Sodium 140 135 - 145 mmol/L [facility] Potassium, pl 3.7 3.3 - 4.9 mmol/L [facility] Chloride 106 97 - 110 mmol/L [facility] CO2 27 22 - 32 mmol/L [facility] Anion gap 7 2 - 15 mmol/L [facility] BUN 12 8 - 25 mg/dL [facility] Creatinine 0.66(L) 0.80 - 1.30 mg/dL [facility] Glucose 157 70 - 199 mg/dL [facility] Comment: Interpretive Data Fasting glucose >/= 126 [...] 2017. Calcium 9.0 8.5 - 10.3 mg/dL [facility] Blood 05/03/2022 6:43 AM CDT 05/03/2022 6:51 AM CDT Guille Guillaume MD LAB BLOOD ORDERABLES F inal Result Performing Organization Address City/[facility] Co de Phone Number [facility] Department [place] [address] * POCT glucose (05/03/2022 6:36 AM CDT) Glucose, POC 169 70 - 199 mg/dL [facility] Blood 05/03/2022 6:36 AM CDT 05/03/2022 6:36 AM CDT Guille Guillaume MD LAB POCT ORDERABLES - DEVICE Final Result Performing Organization Address [facility] Co de Phone Number [facility] Department [place] [address] * POCT glucose (05/02/2022 10:37 PM CDT) Glucose, POC 106 70 - 199 mg/dL [facility] Blood 05/02/2022 10:3 7 PM CDT 05/02/2022 10:37 PM CDT Guille Guillaume MD LAB POCT ORDERABLES - DEVICE Final Result Performing Organization Address [facility] Co de Phone Number [facility] Department [place] [address] * POCT glucose (05/02/2022 4:32 PM CDT) Glucose, POC 133 70 - 199 mg/dL [facility] Blood 05/02/2022 4:32 PM CDT 05/02/2022 4:32 PM CDT us Guille Guillaume MD LAB POCT ORDERABLES - DEVICE Final Result [facility] [place] [address] * POCT glucose (05/02/2022 1:25 PM CDT) Glucose, POC 79 70 - 199 mg/dL [facility] Blood 05/02/2022 1:25 PM CDT 05/02/2022 1:25 PM CDT us Guille Guillaume MD LAB POCT ORDERABLES - DEVICE Final Result [facility] [place] [address] * POCT glucose (05/02/2022 10:13 AM CDT) Glucose, POC 92 70 - 199 mg/dL [facility] Blood 05/02/2022 10:1 3 AM CDT 05/02/2022 10:13 AM CDT us Guille Guillaume MD LAB POCT ORDERABLES - [place] [address] * XR Shoulder Left 2+ View (05/02/2022 [...] 7:28 AM CDT) COVID-19 RNA Negative Negative [facility] Nasopharyngeal 05/02/2022 7: 28 AM CDT 05/02/2022 7:41 AM CDT Narrative [facility] - 05/02/2022 8:34 AM CDT Is the patient experiencing any symptoms consistent with COVID (eg. Fever, cough, shortness of breath)?->No What is the reason for testing?->Asymptomatic screening prior to procedure??or??surgery (Rapid) ??Interpretive data: Synonyms for this test include: PCR and NAAT . ??This test is performed using the [employer] Xpert Xpress plus assay. This is a [...] . ??This test is performed using the [employer] Xpert Xpress plus assay. This is a [...] MICROBIOLOGY - GEN ERAL ORDERABLES Final Result [facility] Department [place] [address] * (ABNORMAL) POC Blood Gas and Chemistries, Arterial - (05/02/2022 6:15 AM CDT) [facility] Glucose, POC 112 70 - 199 mg/dL [facility] Hct, POC 39.0(L) 41.4 - 51.6 % [facility] Total Hb, POC 13.0(L) 13.8 - 17.2 g/dL [facility] Blood 05/02/2022 6:15 AM CDT 05/02/2022 6:15 AM CDT Guille Guillaume MD LAB POCT ORDERABLES - DEVICE Final Result [facility] Department [place] [address] * Type and screen (05/02/2022 6:08 AM CDT) ABO Rh O Positive JI INGRAM Vishal, indirect Negative JI [facility] Blood 05/02/2022 6:08 AM CDT 05/02/2022 6:17 AM CDT Narrative JI NATALY - 05/02/2022 7:17 AM CDT Has the patient had Daratumumab or Isatuximab in the past 6 months?->No Gage Norris GROOVING MACHINE OPERATOR LAB BLOOD BANK TEST ORDERA BLES Final Result JI INGRAM [facility] Department [place] [address] documented in this encounter Visit Diagnoses Diagnosis Tear of left rotator cuff- Primary Tear of left rotator cuff, unspecified tear extent, unspecified whether traumatic documented in this encounter Admitting Diagnoses Diagnosis [...] 10:32 AM CDT 50 mL/hr 50 mL/hr sodium chloride 0.9% irrigation As needed, Starting on Sun05/02/22 at 0853, Intra-Op Given 05/02/2022 8:53 AM CDT 1,000 mL Left Shoulder sodium chloride 0.9% irrigation As needed, Starting on Sun05/02/22 at 0854, Intra-Op Given 05/02/2022 8:54 AM CDT 1,000 mL documented in this encounter Discontinued Medications Medication [...] RN) 0419 (Not Given - Provider: Dayana Tamayo RN - Reason: Patient/family refused - Comment: requested no tylenol if sleep)0742 (Given - Provider: Meenakshi Chavez RN) amLODIPine (NORVASC) tablet 5 mg 5 mg, oral, Every morning, First dose on Sun05/02/22 at 1215 1320 (Given - Provider: Mimi Darby RN) 0743 (Given - Provider: Meenakshi Chavez RN) carvediloL (COREG) tablet 25 mg 25 mg, oral, 2 times daily, First dose (after last modification) on Sun05/02/22 at 2100 2242 (Given - Provider: Dayana Tamayo RN) 0742 (Given - Provider: Meenakshi Chavez RN) ceFAZolin (ANCEF) 2,000 mg/20 mL in sterile [...] Mimi Darby RN)2239 (Given - Provider: Dayana Tamayo, RN) 0745 (Given - Provider: Meenakshi Chavez, ANA) docusate sodium (COLACE) capsule 100 mg 100 mg, oral, 2 times daily, First dose on Sun05/02/22 at 1215, Hold for diarrhea, Indications: constipation 1319 (Given - Provider: Mimi Darby RN)2239 (Given - Provider: Dayana Tamayo, ANA) 0743 (Given - Provider: Meenakshi Chavez, ANA) hydroCHLOROthiazide (HYDRODIURIL) tablet 12.5 mg 12.5 mg, oral, Daily, First dose on Sun05/02/22 at 1215 1320 (Given - Provider: Mimi Darby RN) 0742 (Given - Provider: Meenakshi Chavez, ANA) insulin lispro (HumaLOG, ADMELOG) 100 unit/mL injection [...] hold for NPO Status, Indications: Diabetes Mellitus 2242 (Not Given - Provider: Dayana Tamayo RN [...] Darby RN) 0743 (Given - Provider: Meenakshi hCavez RN) sodium chloride 0.9% flush 0.5-20 mL 0.5-20 mL, intra-catheter, Every 8 hours scheduled, First dose on Sun05/02/22 at 1400, Flush volume based on line type and size. 1321 (Canceled Entry - Provider: Mimi Darby RN)2242 (Given - Provider: Dayana Tamayo RN) 0719 (Canceled Entry - Provider: Meenakshi Chavez RN) sodium chloride 0.9% flush 0.5-20 mL(Linked Group 1) 0.5-20 mL, intra-catheter, Every 8 hours scheduled, First dose on Sun05/02/22 at 1400, Flush volume based on line type and size. 1321 (Given - Provider: Mimi Darby RN)2243 (Given - Provider: Dayana Tamayo, ANA) 0719 (Canceled Entry - Provider: Meenakshi Chavez, ANA) Continuous Medication Order 05/01/2022 05/02/2022 05/03/2022 bupivacaine [...] Floor 1032 (New Bag - Provider: Millie Dupree RN)1055 (Stopped - Provider: Millie Dupree RN)1056 (Stopped [...] 022 dextrose (D10W) 10% bolus 250 mL 05/02/20 dextrose gel in packet 15 g 1 05/02/2022 glucagon injection 1 mg 1 05/02/2022 HYDROmorphone (DILAUDID) injection 0.2 mg 05/02/2022 insulin lispro (HumaLOG, ADM ELOG) 100 unit/mL injection 0-4 Units 05/02/2022 insulin lispro (HumaLOG, ADM ELOG) 100 unit/mL injection 0-5 Units 05/02/2022 Lactated Ringer's (LR) bolus 500 mL 05/02 Lactated Ringer's (LR) infusion 2 naloxone (NARCAN) 0.4 mg/mL injection 0.04-0.4 mg 05/02/2022 ondansetron (ZOFRAN) injection 4 mg 05/02 ondansetron ODT (ZOFRAN-ODT) disintegrating tablet 4 mg 1 05/02/2022 oxyCODONE (ROXICODONE) tablet 5 mg 2021 sodium chloride 0.9% flush 0.5-20 mL 3 04/07 tranexamic acid (CYKLOKAPRON ) 1,000 mg/10 mL [...] 05/02/2022 documented in this encounter Care Teams Retail Brand Ambassador Relationship Specialty Start Date End Date Faisal Richardson DO [address] [place] [address] PCP - General Family Medicine 04/27/22 documented as of this encounter
--- OUTSIDE RECORDS SUMMARY | 2024-07-28 01:07 | XMS_ITS | Encounter Summary ---
Author Organization [facility] Address [address] [place] [address] Phone Care Team Providers Care Shirt Operator Name Role Phone Faisal Richardson DO Primary Care Provider Encounter Details Date Type Department Care Team (Late st Contact Info) Description 08/10/2022 Telephone [facility] Orthopaedic Surgery [address] [facility] 2nd [address] [place] [address] Guille Guillaume MD [address] [facility] [address] [place] [address] Social History Tobacco Use Types Packs/Day Years [...] encounter Miscellaneous Notes * Telephone Encounter - Teresa Agudelo RN - 08/10/2022 12:02 PM TRANSITION NURSE Returned call to pt re: cancelling appt on Monday 08/14 and needing to reschedule. LVM for pt with new appt date/time on 09/01/22 CAM. SITION NURSE documented in this encounter Plan of Treatment Not on file documented as of this encounter Visit Diagnoses Not on filedocumented in this encounter Care Teams Shirt Operator Relationship Specialty Start Date End Date Faisal Richardson DO [address] [place] [address] PCP - General Family Medicine 04/27/22 documented as of this encounter
--- OUTSIDE RECORDS SUMMARY | 2024-07-28 01:07 | XMS_ITS | Referral Summary ---
Author Organization [facility] Address [address] [place] [address] Care Team Providers Care Director Index Name Role Phone DebraFaisal Finch Primary Care [...] (03/14/2022): Added automatically from request for surgery [id number] Social History Tobacco Use Types Packs/Day Years Used Date Smoking Tobacco: Never Smokeless Tobacco: Never Tobacco Cessation:Counseling Given: Not Answered AUDIT-C Answer Date Recorded Q1: How often do you have a drink containing alcohol? Never 05/02/2022 Q2: How many drinks containi ng alcohol do you have on a typical day when you are drinking? Patient does not drink 2 Q3: How often do you have si [...] 05/02/2022 11:35 AM CDT Plan of Treatment Not on file Medical Devices Implanted Type Area Supervisor Cleaning And Annealing Device Identifier Shelf Expiration Date Model / Serial / Lot [employer] Glenosphere Xtend Lateralized 42mm +4mm Standard [id number] - [id number] Implanted:Qty: 1 on 05/02/2022 by Guille Guillaume MD at [facility] [employer] [id number] 01/03/2027 [id number] / / [employer] Delta Xtend 4.5mm 24mm Lock Shoulder Glenoid Screw Bone Metaglene [id number] - [id number] Implanted:Qty: 1 on 05/02/2022 by Guille Guillaume MD at [facility] [employer] [id number] 04/05/2026 [id number] / / [employer] Delta Xtend 4.5mm 48mm Lock Shoulder Glenoid Screw Bone Metaglene [id number] - [id number] Implanted:Qty: 1 on 05/02/2022 by Guille Guillaume MD at [facility] [employer] [id number] 07/05/2026 [id number] / / [employer] Delta Xtend 27mm Cementless Shoulder Standard Component Glenoid Latex Free [id number] - [id number] Implanted:Qty: 1 on 05/02/2022 by Guille Guillaume MD at [facility] [employer] 12/04/2031 [id number] / / [employer] Delta Xtend 4.5mm 36mm Lock Shoulder Glenoid Screw Bone Metaglene [id number] - [id number] Implanted:Qty: 1 on 05/02/2022 by Guille Guillaume MD at [facility] [employer] 01/03/2027 [id number] / / [employer] Implant Shldr Xtend Modecc 145epi Por Sz1 Lt [id number] - [id number] Implanted:Qty: 1 on 05/02/[facility] 11/03/2030 [id number] / / [employer] Global Unite 10mm 113mm Modular Shoulder Standard Stem Humeral [id number] - [id number] Implanted:Qty: 1 on 05/02/2022 by Guille Guillaume MD at [facility] [employer] 02/03/2032 [id number] / / [employer] Delta Xtend 42mm Shoulder +3mm Standard Cup Humeral Polyethylene Latex Free [id number] - [id number] Implanted:Qty: 1 on 05/02/2022 [facility] 01/30/2027 [id number] / / Insurance CRS [employer] PPO POS HEALTHLINK PPO POS HEALTHLINK OPEN ACCESS HEALTHLINK OPEN ACCESS HEALTHLINK HMO Advance Directives For more information, please contact: [phone] * Full Code (Latest Code Status on File) Date Activated Date Inactivated Comments 05/02/2022 11:32 AM 05/03/2022 4:06 PM Care Teams Director Index Relationship Specialty Start Date End Date Faisal Richardson DO [address] [place] [address] PCP - General Family Medicine 04/27/22
--- OUTSIDE RECORDS SUMMARY | 2024-07-28 01:07 | XMS_ITS | Encounter Summary ---
Author Organization [facility] Address [address] [place] [address] Care Team Providers Care Muskrat Trapper Name Role Phone Faisal Richardson DO Primary Care Provider Reason for Referral * Diagnostic Imaging (Routine) - Closed Specialty Diagnoses / Procedures Referred By Kd figueroa Referred To Contact Diagnoses Follow-up examination after orthopedic surgery S/P reverse total shoulder arthroplasty, left Procedures XR Shoulder Left 2 or More Views Guille Guillaume MD Phone: tel: fax: [address] [address] Referral ID Status Reason Start Date Expiration Date Visits Re quested Visits Authorized [id number] Closed 06/08/2022 07/08/2023 1 1 COMMODITY BUYER Reason for Visit * Diagnostic Imaging (Routine) - Closed Specialty Diagnoses / Procedures Referred By Kd figueroa Referred To Contact Diagnoses Follow-up examination after orthopedic surgery S/P reverse total shoulder arthroplasty, left Procedures XR Shoulder Left 2 or More Views Guille Guillaume MD Phone: tel: fax: [address] [phone] Referral ID Status Reason Start Date Expiration Date Visits Re quested Visits Authorized [id number] Closed 06/08/2022 07/08/2023 1 1 Encounter Details Date Type Department Care Team (Latest Contact Info) Description 06/12/2022 8:00 AM ANY COMMODITY BUYER - 06/12/2022 11:59 PM ANY COMMODITY BUYER Hospital Encounter [facility] [address] [place] [address] Follow-up examination after orthopedic surgery; S/P reverse [...] VIEWS Schedule Routine, Read Routine (OP Routine) 06/12/2022 8:21 AM ANY COMMODITY BUYER Follow-up examination after orthopedic surgery S/P reverse total shoulder arthroplasty, left documented in this encounter Results * XR Shoulder Left 2 or More Views (06/12/2022 8:21 AM ANY COMMODITY BUYER) Anatomical Region Laterality Modality Upper Extremities, Shoulder Left Comp uted Radiography 06/12/2022 8:36 AM ANY COMMODITY BUYER Impressions 06/12/2022 8:36 AM ANY COMMODITY BUYER 1. Reverse left total shoulder arthroplasty in expected position. Electronically signed by: Ramana Paz M.D. Narrative 06/12/2022 8:36 AM ANY COMMODITY BUYER EXAMINATION: XR SHOULDER LEFT 2 OR MORE VIEWS HISTORY: Left shoulder osteoarthritis FINDINGS: 4 view examination of left shoulder is compared to a study from 05/15/2022. Reverse ygul-irv-husefx left total shoulder arthroplasty remains in near-anatomic position. There is no fracture or component migration. There is a large subacromial spur and mild acromioclavicular osteoarthritis. Procedure Note Ramana Paz MD - 06/12/2022 EXAMINATION: XR SHOULDER LEFT 2 OR MORE VIEWS HISTORY: Left shoulder osteoarthritis FINDINGS: 4 view examination of left shoulder is compared to a study from 05/15/2022. Reverse jvpm-fen-vtlzbm left total shoulder arthroplasty remains in near-anatomic position. There is no fracture or component migration. There is a large subacromial spur and mild acromioclavicular osteoarthritis. IMPRESSION: 1. Reverse left total shoulder arthroplasty in expected position. Electronically signed by: Ramana Paz M.D. Guille Guillaume MD IMG XR PROCEDURES Rowena l Result documented in this encounter Visit Diagnoses Diagnosis Follow-up examination after orthopedic surgery S/P reverse total shoulder arthroplasty, left documented in this encounter Care Teams Muskrat Trapper Relationship Specialty Start Date End Date Faisal Richardson DO [facility] [place] [address] PCP - General Family Medicine 04/27/22 documented as of this encounter
--- OUTSIDE RECORDS SUMMARY | 2024-07-28 01:07 | XMS_ITS | Encounter Summary ---
Author Organization [facility] Address [address] [place] [address] Care Team Providers Care Private Household Worker Name Role Phone Faisal Richardson Primary Care Provider Encounter Details Date Type Department Care Team (Late st Contact Info) Description 05/04/2022 Telephone [facility] [address] [facility] [address] [place], [place] [id number] Annemarie Jones NP [address] [place] [address] Social History Tobacco Use Types Packs/Day Years [...] Telephone Encounter - Annemarie Jones NP - 05/04/2022 1:28 PM CDT [facility] Follow-Up Telephone Call Catheter Placement Date: 05/02/22 Catheter location: Left Interscalene Infusion: Bupivacaine 0.2% @ 8 ml/hr Pain location: unknown Pain at rest: unknown/10 Pain with activity: unknown/10 Analgesia: unknown Side Effects: unknown Catheter Site Issues: unknown Plan: Continue current rate Left message Will attempt to follow-up with patient by phone tomorrow. Annemarie Jones NP Acute Pain Service Department of Anesthesiology [facility] 05/04/2022 1:28 PM documented in this encounter Plan of Treatment Not on file documented as of this encounter Visit Diagnoses Not on filedocumented in this encounter Care Teams Private Household Worker Relationship Specialty Start Date End Date aFisal Richardson DO [address] [place] [address] PCP - General Family Medicine 04/27/22 documented as of this encounter
--- OUTSIDE RECORDS SUMMARY | 2024-07-28 01:07 | XMS_ITS | Encounter Summary ---
Author Organization [facility] Address [address] [place] [address] Phone Care Team Providers Care Media Center Assistant Name Role Phone Faisal Richardson DO Primary Care Provider Reason for Referral * Diagnostic Imaging (Routine) - Closed Specialty Diagnoses / Procedures Referred By Contac t Referred To Contact Diagnoses Follow-up examination after orthopedic surgery S/P reverse total shoulder arthroplasty, left Procedures XR Shoulder Left 2 or More Views French Quezada MD [address] [address] Phone: tel: fax: [facility] [address] [place] [address] Referral ID Status Reason Start Date Expiration Date Visits Re quested Visits Authorized [id number] Closed 09/13/2022 10/13/2023 1 1 NIUM PLANT OPERATOR Reason for Visit * Reason Comments Follow-up Encounter Details Date Type Department Care Team (Late st Contact Info) Description 09/14/2022 9:30 AM SELENIUM PLANT OPERATOR Office Visit [facility] Orthopaedic Surgery [address] [place] [address] 12th [place] [address] [place] [address] French Quezada MD [address] [facility] [address] [place] [address] Follow-up examination after orthopedic surgery (Primary Dx); S/P reverse total shoulder arthroplasty, left; Rotator cuff arthropathy, left Social History Tobacco Use Types Packs/Day [...] Progress Notes * French Quezada MD - 09/14/2022 9:30 AM CST Images from the original note were not included. POST-OPERATIVE PATIENT VISIT INTERIM HISTORY Date of Surgery: May 02, 2022 Procedure: Left reverse shoulder arthroplasty Jose Rutledge presents today for 4 and half month follow-up status post left reverse shoulder arthroplasty. He had this done by Dr. Guillaume. He is doing well with this. 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 He is now status post explant and is currently in a wheelchair due to nonweightbearing. He is on IV antibiotics aswell. Hopefully can have his reimplant sometime in the next few months. PHYSICAL EXAMINATION Well-preserved range of motion of the shoulder with elevation to 130??, external rotation is to 20??. Neurovascular intact throughout. REVIEW OF X-RAYS/STUDIES I ordered and independently interpreted 4 views of the left shoulder today, these show reverse arthroplasty in appropriate positioning. Assessment/Plan IMPRESSION/DIAGNOSIS Four months status post above, doing well TREATMENT PLAN Patient is doing well with his left shoulder. May continue increase activities as tolerated. We diddiscuss that there is no signs of loosening and that increase weight-bearing as okay and safe givenhis recent hip complication. See him back at 1 year from surgery, sooner if needed. We reviewed precautions and the patient voiced understanding. All questions were answered today. FOLLOW-UP At 1 surgery with new left shoulder x-rays My total encounter time on 09/14/2022 was 20 minutes which was spent in the activities documented in the note. This includes time spent prior to the visit and after the visit in direct care of the patient. This time does not include time spent in any separately reportable services. French Quezada MD Ambulatory Services Representative of Orthopedic Surgery Shoulder and Elbow Service [facility] Dr. French Quezada dictating using Fluency Direct. Labourers variances may occur. NIUM PLANT OPERATOR documented in this encounter Plan of Treatment Not on file documented as of this encounter Results * XR Shoulder Left 2 or More Views (09/14/2022 9:14 AM SELENIUM PLANT OPERATOR) Anatomical Region Laterality Modality Upper Extremities, Shoulder Left Comp uted Radiography 09/14/2022 9:31 AM SELENIUM PLANT OPERATOR Impressions 09/14/2022 5:02 PM SELENIUM PLANT OPERATOR Unchanged reverse nvqx-bpf-ehcrif left total shoulder arthroplasty in near-anatomic position. Dictated by: Gwendolyn Ferguson M.D. The radiology attending physician has personally reviewed this study, and had reviewed and/or edited this written report and agrees with it. Electronically signed by: Chandan Gama MD Narrative 09/14/2022 5:02 PM SELENIUM PLANT OPERATOR EXAMINATION: XR SHOULDER LEFT 2 OR MORE VIEWS HISTORY: ??Left shoulder arthroplasty follow-up FINDINGS: 4 radiographs of the left shoulder are provided for interpretation. Comparison is made with prior radiographs dated 06/12/2022. Unchanged reverse ucwt-gwd-cvgmog left total shoulder arthroplasty in near-anatomic position. [...] with prior radiographs dated 06/12/2022. Unchanged reverse pfzi-txg-urptbi left total shoulder arthroplasty in near-anatomic position. No periprosthetic fracture or osteolysis. No component migration. A large subacromial spur is again noted. Unchanged mild acromioclavicular joint osteoarthritis. IMPRESSION: Unchanged reverse xovf-rnm-nnzlym left total shoulder arthroplasty in near-anatomic position. [...] reverse total shoulder arthroplasty, left Rotator cuff arthropathy, left Follow-up examination after orthopedic surgery S/P reverse total shoulder arthroplasty, left documented in this encounter Care Teams Media Center Assistant Relationship Specialty Start Date End Date Faisal Richardson DO [address] [place] [address] PCP - General Family Medicine 04/27/22 documented as of this encounter
--- OUTSIDE RECORDS SUMMARY | 2024-07-28 01:08 | XMS_ITS | Encounter Summary ---
Author Organization [facility] Address [address] [place] [address] Phone Care Team Providers Care Employee Benefits Attorney Name Role Phone Terri Ko MD Primary Care Provider [phone] Reason for Referral * Diagnostic Imaging (Routine) - Closed Specialty Diagnoses / Procedures Referred By Kd figueroa Referred To Contact Diagnoses Right shoulder pain, unspecified chronicity Procedures FL Fluoro Guided Injection Shoulder Right (SUBACROMIAL BURSA) Guille Guillaume MD Phone: tel: fax: [address] [phone] Referral ID Status Reason Start Date Expiration Date Visits Re quested Visits Authorized [id number] Closed 03/13/2022 04/12/2023 1 1 * Diagnostic Imaging (Routine) - Closed Specialty Diagnoses / Procedures Referred By Kd figueroa Referred To Contact Diagnoses Left shoulder pain, unspecified chronicity Procedures XR Shoulder Left 2 or More Views Guille Guillaume MD Phone: tel: fax: [address] [phone] Referral ID Status Reason Start Date Expiration Date Visits Re quested Visits Authorized [id number] Closed 03/09/2022 04/08/2023 1 1 Reason for Visit * Reason Comments Pain * Consultation (Routine) - Closed Specialty Diagnoses / Procedures Referred By Contac t Referred To Contact Orthopedic Surgery Diagnoses Strain of muscle(s) and tendon(s) of the rotator cuff of left shoulder, initial encounter Spontaneous rupture of flexor tendons, right shoulder Noé Crowley MD [address] [address] Phone: tel: fax: Guille Guillaume MD Phone: tel: fax: Referral ID Status Reason Start Date Expiration Date V isits Requested Visits Authorized [id number] Closed Specialty Services Required 02/15/2022 03/17/2023 1 1 Encounter Details Date Type Department Care Team (Late st Contact Info) Description 03/13/2022 9:50 AM CDT Office Visit [facility] Orthopaedic Surgery [address] [place] [address] [place] [address] Guille Guillaume MD [address] [facility] [address] [place] [address] Left shoulder pain, unspecified chronicity (Primary Dx); Strain of muscle(s) and tendon(s) of the rotator cuff of left shoulder, initial encounter; Spontaneous rupture of flexor tendons, right shoulder; Right shoulder pain, unspecified chronicity Social History Tobacco Use Types Packs/Day Years Used Date Smoking Tobacco: Never Sex and Gender Information Value Date Recorded Sex Assigned at Not on file Legal Sex Male 9:47 AM CDT Gender Identity Not on file Sexual Orientation Not on file documented as of this encounter Progress Notes * Jose J Skinner MD - 03/13/2022 9:50 AM CDT NEW PATIENT VISIT CHIEF COMPLAINT Pain of the left and right shoulder HISTORY OF PRESENT ILLNESS Jose is a 56 y.o. male who presents today for evaluation of left and right shoulder. He has beenhaving bilateral shoulder pain for many years. He is status post right rotator cuff repair about 15years ago. His current pain began this past October when he fell after getting dizzy in the shower. This is related to a recent stroke that he had this past September. He does not have significant deficits from the stroke, primarily dizziness and sensory issues. Patient reports that the left side hurts just about as much as the right but feels more weak on the left. It is rated as severe. It is sharp in severity. He has pain with motion of the arm including overhead activities. He is pain at nightbut this does not keep him from sleeping. He has not done formal physical therapy for his shoulder though he has gotten general PT for rehabilitation of his stroke. He is not had any steroid injections. Has tried anti-inflammatories. The patient is not smoke. In addition to recent stroke, he has a history of diabetes controlled on oral medications. To he reports neuropathy in his feet. 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 Lives with . PAST MEDICAL HISTORY He has no past medical history on file. PAST SURGICAL HISTORY He has no past surgical history on file. INITIAL REVIEW OF MEDICATIONS He currently has no medications in their medication list. DRUG ALLERGIES He has no allergies on file. SOCIAL HISTORY He Social History Tobacco Use ??? Smoking status: Never Smoker ??? Smokeless tobacco: Not on file Substance and Sexual Activity ??? Drug use: Not on file ??? Sexual activity: Not on file Alcohol Use: Not on file FAMILY HISTORY His family history includes Cancer in his father and mother. REVIEW OF SYSTEMS Review of systems was reviewed with the patient PHYSICAL EXAMINATION Shoulders are symmetric. Skin is intact. There is periscapular muscle atrophy without scapular winging although there is asymmetric movement of the scapula on the left compared to right. Forward elevation is to 150?? bilaterally relative to the thoracic spine. Forward flexion 150 degrees. External rotation with the arms at the side are equal on both sides. There is 5 out of 5 strength noted with thumbs-down abduction and in external rotation with the arms at the side. There is 4/5 strength of external rotation with arms at the side bilaterally without external rotation lag. Abdominal compression test is Negative Haydee's test as well as impingement sign are positive. Acromioclavicular joint is nontender. There is mild pain with cross body adduction. Deltoid is intact and firing. There are no clinical signs of pathologic instability. Distally, median, radial, and ulnar nerves are intact to motor and sensation. Fingers are warm and well-perfused REVIEW OF X-RAYS/STUDIES X-rays of the left shoulder were independently interpreted by me today and demonstrate glenohumeraljoint with a well-maintained joint space. There is mild proximal migration of the humeral head witha mildly asymmetric joint space. No significant radiographic signs of glenohumeral arthritis are noted. There is no evidence for fracture. X-rays are within normal limits. MRI of the left shoulder obtained on 02/11/2022 demonstrates full-thickness tear of the supraspinatus and infraspinatus muscles with retraction of the tendon. There is Goutallier grade 4 fatty atrophy of the supraspinatus and infraspinatus muscles. Subscapularis and teres minor are preserved. MRI of the right shoulder obtained on 02/11/2022 demonstrates an intact rotator cuff with tendinopathy of the cuff tendons. Suture anchors from his prior surgery are identified and artifact from thisobscures fine detail. IMPRESSION/DIAGNOSIS Left rotator cuff tear with significant atrophy of the supraspinatus and infraspinatus muscles Right rotator cuff tear with tendinopathy TREATMENT PLAN Discussed the diagnosis and imaging with patient. In regards to the right side, his pain is likely secondary to tendonitis of his cuff muscles which can be redressed with NSAIDs. Discussed the role of steroid injection which patient would like to proceed. An ultrasound guided right subacromial injection was ordered today. His cuff repair on the right is intact. In regards to his left side, he does have a symptomatic full-thickness rotator cuff tear with significant fatty atrophy. Discussed the role of both surgical and nonsurgical options including physical therapy and steroid injections. We discussed the role of reverse total shoulder arthroplasty to address his pain and function on the left, and patient would like to proceed with this option. We discussed the potential risks, benefits, alternatives and consequences of surgical intervention. We also discussed the likely rehabilitation protocol. Jose wants to proceed with surgery and scheduling. We will have this scheduled at the next available opportunity. If there are any further questions, I've invited them to contact my office. FOLLOW-UP Date of surgery Jose J Skinner MD ATTENDING ADDENDUM The patient was seen and examined today with the resident/fellow. I was present for the History, Physical Exam, Case Discussion and Plan. I agree with the Assessment and Plan as dictated in the full clinic note. Guille Guillaume MD, MSc, [employer]ulator Repairer of Orthopedic Surgery Shoulder and Elbow Service [facility] [address] Guille Guillaume dictating using Fluency Direct. Thread Milling Machine Set Up Operator variances may occur. documented in this encounter Plan of Treatment Not on file documented as of this encounter Results * FL Fluoro Guided Injection Shoulder Right (SUBACROMIAL BURSA) (04/03/2022 8:42 AM CDT) Narrative [facility] - 04/03/2022 8:45 AM CDT The images from this study are not interpreted by Radiology. ??Please refer to the physician's procedure / OR operative note. us Guille Guillaume MD IMG FLUOROSCOPY PROCED URES Final Result [facility] * XR Shoulder Left 2 or More Views (03/13/2022 9:32 AM CDT) Anatomical Region Laterality Modality Upper Extremities, Shoulder Left Comp uted Radiography 03/13/2022 11:0 5 AM CDT Impressions 03/13/2022 2:20 PM CDT 1. Moderate left acromioclavicular and mild left glenohumeral osteoarthritis. 2. Small left subacromial spur. Dictated by: Feliep Posada M.D. The radiology attending physician has personally reviewed this study, and had reviewed and/or edited this written report and agrees with it. Electronically signed by: Lamin Kaufman MD [facility] 03/13/2022 2:20 PM CDT EXAMINATION: XR SHOULDER LEFT 2 OR MORE VIEWS HISTORY: Left shoulder pain FINDINGS: 4 images of the left shoulder are performed without comparison. Alignment is anatomic. There is moderate acromioclavicular and mild glenohumeral osteoarthritis. There is undersurface remodeling of the acromion with a spur. No acute fracture. Visualized lungs are clear. Procedure Note Heike Kaufman MD - 03/13/2022 EXAMINATION: XR SHOULDER LEFT 2 OR MORE VIEWS HISTORY: Left shoulder pain FINDINGS: 4 images of the left shoulder are performed without comparison. Alignment is anatomic. There is moderate acromioclavicular and mild glenohumeral osteoarthritis. There is undersurface remodeling of the acromion with a spur. No acute fracture. Visualized lungs are clear. IMPRESSION: 1. Moderate left acromioclavicular and mild left glenohumeral osteoarthritis. 2. Small left subacromial spur. Dictated by: Felipe Posada M.D. The radiology attending physician has personally reviewed this study, and had reviewed and/or edited this written report and agrees with it. Electronically signed by: Lamin Kaufman MD Guille Guillaume MD IMG XR PROCEDURES Rowena l Result documented in this encounter Visit Diagnoses Diagnosis Left shoulder pain, unspecified chronicity- Primary Strain of muscle(s) and tendon(s) of the rotator cuff of left shoulder, initial encounter Spontaneous rupture of flexor tendons, right shoulder Right shoulder pain, unspecified chronicity Left shoulder pain, unspecified chronicity Right shoulder pain, unspecified chronicity- Primary documented in this encounter Orders Outpatient Referral Count Last Ordered Date Fir st Ordered Date AMB REFERRAL TO ORTHOPEDIC SURGERY 1 2021 documented in this encounter Care Teams Employee Benefits Attorney Relationship Specialty Start Date End Date Terri Ko MD [address] [place] [address] PCP - General 05/07/17 04/26/22 documented as of this encounter
--- OUTSIDE RECORDS SUMMARY | 2024-07-28 01:08 | XMS_ITS | Encounter Summary ---
Author Organization [facility] Healthcare Address [address] [place] [address] Care Team Providers Care Aerosol Supervisor Name Role Phone Terri Ko MD Primary Care Provider [phone] Encounter Details Date Type Department Care Team (Latest Contact Info) Description 03/13/2022 11:22 AM CDT - 03/13/2022 11:23 AM CDT Hospital Encounter [facility] [address] [place] [address] Discharge Disposition: Discharge to home or self care Social History Tobacco Use Types Packs/Day Years Used Date Smoking Tobacco: Never Sex and Gender Information Value Date Recorded Sex Assigned at Not on file Legal Sex Male 9:47 AM CDT Gender Identity Not on file Sexual Orientation Not on file documented as of this encounter Medications at Time of Discharge amLODIPine (NORVASC) 5 mg tablet Take 5 [...] mouth 2 (two) times a day 03/05/2022 losartan-hydroCHLOR Othiazide (HYZAAR) 100-12.5 mg per tablet Take 1 tablet by mouth every morning 03/05/2022 metFORMIN (GLUCOPHAGE) 1,000 mg tablet Take 1,000 mg by mouth 2 (two) times a day 03/05/2022 multivit-min/folic/ vit K/lycop (ONE-A-DAY MEN'S MULTIVITAMIN ORAL) Take by mouth every morning 03/28/2019 ondansetron ODT (ZOFRAN-ODT) 4 mg disintegrating tablet Take 4 mg by mouth as needed 01/29/2022 rosuvastatin (CRESTOR) 20 mg tablet Take 20 mg by mouth every morning 03/05/2022 Trulicity 1.5 mg/0.5 mL pen injector Inject under the skin once a week Mondays03/05/2022 betamethasone dipropionate (DIPROLENE) 0.05 % ointment Apply 1 application topically every morning 10/17/2020 05/03/[address] (VOLTAREN) 75 mg EC tablet Take 75 mg by mouth every morning 03/05/2022 05/03/20 22 documented as of this encounter Discharge Disposition Disposition Code Departure Means Destination Discharge to home or self care documented in this encounter Plan of Treatment Not on file documented as of this encounter Procedures Procedure Name Priority Date/Time Associated Diagnosis Comments MSK CT MR OUTSIDE REFERENCE Routine 03/13/2022 11:22 AM CDT Diagnosis unknown documented in this encounter Results * MSK CT MR Outside Reference (03/13/2022 11:22 AM CDT) Impressions [facility] - 03/13/2022 11:22 AM CDT These images are for Reference purposes only and have not been reviewed by [facility] Radiology. ??There will be no report generated by a [facility] Radiologist. Narrative [facility] - 03/13/2022 11:22 AM CDT EXAMINATION: ??Images For Reference Purposes Only us Guille Guillaume MD IMG CT PROCEDURES Rowena l Result [facility] documented in this encounter Visit Diagnoses Not on filedocumented in this encounter Care Teams Aerosol Supervisor Relationship Specialty Start Date End Date Terri Ko MD [address] [place] [address] PCP - General 05/07/17 04/26/22 documented as of this encounter
--- OUTSIDE RECORDS SUMMARY | 2024-07-28 01:08 | XMS_ITS | Encounter Summary ---
Author Organization [facility] Healthcare Address [address] [place] [address] Care Team Providers Care Sustainability Executive Director Name Role Phone Terri Ko MD Primary Care Provider [phone] Encounter Details Date Type Department Care Team (Latest Contact Info) Description 03/13/2022 11:24 AM CDT - 03/13/2022 11:59 PM CDT Hospital Encounter [facility] [address] [place] [address] Discharge Disposition: Discharge to home or self [...] MSK CT MR OUTSIDE REFERENCE Routine 03/13/2022 11:24 AM CDT Diagnosis unknown documented in this encounter Results * MSK CT MR Outside Reference (03/13/2022 11:24 AM CDT) Impressions [facility] - 03/13/2022 11:24 AM CDT These images are for Reference purposes only and have not been reviewed by [facility] Radiology. ??There will be no report generated by a [facility] Radiologist. Narrative [facility] - 03/13/2022 11:24 AM CDT EXAMINATION: ??Images For Reference Purposes Only us Guille Guillaume MD IMG CT PROCEDURES Rowena l Result [facility] documented in this encounter Visit Diagnoses Not on filedocumented in this encounter Care Teams Sustainability Executive Director Relationship Specialty Start Date End Date Terri Ko MD [address] [place] [address] PCP - General 05/07/17 04/26/22 documented as of this encounter
--- OUTSIDE RECORDS SUMMARY | 2024-07-28 01:08 | XMS_ITS | Encounter Summary ---
Author Organization [facility] Address [address] [place] [address] Care Team Providers Care Sole Layer Hand Name Role Phone Terri Ko MD Primary Care Provider [phone] Reason for Referral * Diagnostic Imaging (Routine) - Closed Specialty Diagnoses / Procedures Referred By Kd figueroa Referred To Contact Diagnoses Left shoulder pain, unspecified chronicity Procedures XR Shoulder Left 2 or More Views Guille Guillaume MD Phone: tel: fax: [address] [address] Referral ID Status Reason Start Date Expiration Date Visits Re quested Visits Authorized [id number] Closed 03/09/2022 04/08/2023 1 1 Reason for Visit * Diagnostic Imaging (Routine) - Closed Specialty Diagnoses / Procedures Referred By Kd figueroa Referred To Contact Diagnoses Left shoulder pain, unspecified chronicity Procedures XR Shoulder Left 2 or More Views Guille Guillaume MD Phone: tel: fax: [address] [phone] Referral ID Status Reason Start Date Expiration Date Visits Re quested Visits Authorized [id number] Closed 03/09/2022 04/08/2023 1 1 Encounter Details Date Type Department Care Team (Latest Contact Info) Description 03/13/2022 9:28 AM CDT - 03/13/2022 11:21 AM CDT Hospital Encounter [facility] [address] [place] [address] Left shoulder pain, unspecified chronicity Discharge Disposition: Discharge to home or self [...] VIEWS Schedule Routine, Read Routine (OP Routine) 03/13/2022 9:32 AM CDT Left shoulder pain, unspecified chronicity documented in this encounter Results * XR [...] it. Electronically signed by: Lamin Kaufman MD Narrative 03/13/2022 2:20 PM CDT EXAMINATION: XR SHOULDER [...] Visit Diagnoses Diagnosis Left shoulder pain, unspecified chronicity documented in this encounter Care Teams Sole Layer Hand Relationship Specialty Start Date End Date Terri Ko MD [address] [place] [address] PCP - General 05/07/17 04/26/22 documented as of this encounter
--- OUTSIDE RECORDS SUMMARY | 2024-07-28 01:08 | XMS_ITS | Encounter Summary ---
Author Organization [facility] Address [address] [place] [address] Care Team Providers Care Mix Chemist Name Role Phone Terri Ko MD Primary Care Provider [phone] Reason for Referral * Diagnostic Imaging (Routine) - Closed Specialty Diagnoses / Procedures Referred By Kd t Referred To Contact Diagnoses Right shoulder pain, unspecified chronicity Procedures FL Fluoro Guided Injection Shoulder Right (SUBACROMIAL BURSA) Guille Guillaume MD Phone: tel: fax: [address] [phone] Referral ID Status Reason Start Date Expiration Date Visits Re quested Visits Authorized [id number] Closed 03/13/2022 04/12/2023 1 1 Reason for Visit * Diagnostic Imaging (Routine) - Closed Specialty Diagnoses / Procedures Referred By Contalanna t Referred To Contact Diagnoses Right shoulder pain, unspecified chronicity Procedures FL Fluoro Guided Injection Shoulder Right (SUBACROMIAL BURSA) Guille Guillaume MD Phone: tel: fax: [address] [phone] Referral ID Status Reason Start Date Expiration Date Visits Re quested Visits Authorized [id number] Closed 03/13/2022 04/12/2023 1 1 Encounter Details Date Type Department Care Team (Latest Contact Info) Description 04/03/2022 8:12 AM CDT - 04/03/2022 11:59 PM CDT Hospital Encounter [facility] [address] [place] [address] Nikos Jones MD [address] [facility] [address] [place] [address] Right shoulder pain, unspecified chronicity (Primary Dx) Discharge Disposition: Discharge to home or self [...] Sign Reading Time Taken Comments Blood Pressure 135/64 04/03/2022 8:48 AM CDT Pulse 65 04/03/2022 8:48 AM CDT Temperature - - Respiratory Rate 16 04/03/2022 8:48 AM CDT Oxygen Saturation - - Inhaled Oxygen Concentration - - Weight - - Height - - Body Mass Index - - documented in this encounter Medications at Time of Discharge acetaminophen 500 mg capsuleIndications: Pain Take 2 capsules (1,000 mg total) by mouth every 6 (six) hours 100 tablet 05/03/2022 amLODIPine (NORVASC) 5 mg tablet Take 5 mg by mouth every morning 03/05/2022 carvediloL (COREG) 25 mg tablet Take 25 mg by mouth 2 (two) times a day 03/05/2022 celecoxib (CeleBREX) 200 mg capsuleIndications: Pain Take [...] day 03/05/2022 docusate sodium (COLACE) 100 mg capsuleIndications: constipation Take 1 capsule (100 mg total) by mouth 2 (two) times a day 30 capsule 05/03/2022 losartan-hydroCHLOR Othiazide (HYZAAR) 100-12.5 mg per tablet [...] 01/29/2022 oxyCODONE (ROXICODONE) 5 mg immediate release tabletIndications:P [...] documented in this encounter Progress Notes * Nikos Jones MD - 04/03/2022 9:20 AM CDT Right Subacromial Bursa Injection with Fluoroscopic Guidance [facility] Department of Orthopedic Surgery Division of Physical Medicine and Rehabilitation Patient name: Jose Rutledge Date of : 1965 Date of service: 04/03/2022 Jose Rutledge presents to the fluoroscopy suite for a fluoroscopically guided right subacromial bursainjection for conservative treatment of rotator cuff tendinitis. Prior to the start of the procedure, verbal verification by the procedure participant(s) was confirmed: correct patient identity, correct site/side, agreement on the procedure to be done, correct patient positioning, an accurate procedure consent form and that any safety precautions based on clinical history and/or medication use have been addressed. Written and verbal informed consent was obtained. The patient lay in the prone position on the fluoroscopy table. The area was prepped and draped in sterile fashion. Then, a 25 gauge spinal needle was advanced under fluoroscopic guidance into the right posterior lateral subacromial space. Confirmation of placement was obtained with the infusion of 0.5 cc of iothalamate meglumine (Conray) contrastwhich demonstrated flow in the subacromial space. Then, a combination of 3 cc of 1% lidocaine without epinephrine, 3cc of 0.2% ropivacaine and 1cc of 40 mg/mL Kenalog was infused. The patient tolerated the procedure without immediate complications. The patient was given verbal as well as written follow-up instructions. A pain diary was given to the patient with follow-up instructions to call back to the referring physician in 2 weeks. The above patient was seen and evaluated with Dr. Yousuf Hendrix who participated in performing the procedure. I was present for the entire procedure. I personally performed or was present for the procedure above. Nikos Jones MD [facility] Orthopedics documented in this encounter Plan of Treatment Not on file documented as of this encounter Procedures Procedure Name Priority Date/Time Associated Diagnosis Comments FLUORO GUIDED INJECTION SHOULDER RIGHT Schedule Routine, Read Routine (OP Routine) 04/03/2022 8:42 AM CDT Right shoulder pain, unspecified chronicity documented in this encounter Results * FL Fluoro Guided Injection Shoulder Right (SUBACROMIAL BURSA) (04/03/2022 8:42 AM CDT) Narrative [facility] - 04/03/2022 8:45 AM CDT The images from this study are not interpreted by Radiology. ??Please refer to the physician's procedure / OR operative note. Guille Guillaume MD IMG FLUOROSCOPY PROCED URES Final Result [facility] documented in this encounter Visit Diagnoses Diagnosis Right shoulder pain, unspecified chronicity- Primary documented in this encounter Administered Medications Inactive Administered Medications - up to 3 most recent administrations Medication Order MAR Action Action Date Dose Rate Site iothalamate meglumine (CONRAY) 60 % injection Code/trauma/sedation medication, Starting on Sun04/03/22 at 0830 Given 04/03/2022 8:30 AM CDT 5 mL lidocaine PF (XYLOCAINE) 10 mg/mL (1 %) preservative free injection Code/trauma/sedation medication, Starting on Sun04/03/22 at 0830, Intra-Procedure (IR), Indications: Administration of Local AnesthesiaIndications:Administratio n of Local Anesthesia Given 04/03/2022 8:30 AM CDT 6 mL ropivacaine (NAROPIN) 2 mg/mL (0.2 %) preservative free injection Code/trauma/sedation medication, Starting on Sun04/03/22 at 0831 Given 04/03/2022 8:31 AM CDT 2 mL triamcinolone (KENALOG) 40 mg/mL injection Code/trauma/sedation medication, Starting on Sun04/03/22 at 0830 Given 04/03/2022 8:30 AM CDT 40 mg documented in this encounter Care Teams Mix Chemist Relationship Specialty Start Date End Date Terri Ko MD [address] [place] [address] PCP - General 05/07/17 04/26/22 documented as of this encounter
--- OUTSIDE RECORDS SUMMARY | 2024-07-28 01:08 | XMS_ITS | Encounter Summary ---
Author Organization [facility] Address [address] [place] [address] Phone Care Team Providers Care Chief Mechanical Engineer Name Role Phone Terri Ko MD Primary Care Provider [phone] Encounter Details Date Type Department Care Team (Late st Contact Info) Description 04/25/2022 Telephone [facility] Orthopaedic Surgery [address] [facility] [address] [place] [address] [place] [address] Guille Guillaume MD [address] [facility] [address] [place], [place] [id number] Social History Tobacco Use Types Packs/Day Years Used Date Smoking Tobacco: Never Smokeless Tobacco: Never AUDIT-C Answer Date Recorded Frequency of Alcohol Consumption Not on file 04/07/2022 Q2: How many drinks containi ng alcohol do you have on a typical day when you are drinking? Patient does not drink Frequency of Binge Drinking Not on file 09/2021 Sex and Gender Information Value Date Recorded Sex Assigned at Not on file Legal Sex Male 9:47 AM CDT Gender Identity Not on file Sexual Orientation Not on file documented as of this encounter Miscellaneous Notes * Telephone Encounter - Teresa Agudelo RN - 04/25/2022 8:03 AM CDT LVM for pt to start holding Plavix for surgery next week. documented in this encounter Plan of Treatment Not on file documented as of this encounter Visit Diagnoses Not on filedocumented in this encounter Care Teams Chief Mechanical Engineer Relationship Specialty Start Date End Date Terri Ko MD [address] [place] [address] PCP - General 05/07/17 04/26/22 documented as of this encounter
--- OUTSIDE RECORDS SUMMARY | 2024-07-28 01:08 | XMS_ITS | Encounter Summary ---
Author Organization [facility] Address [address] [place] [address] Care Team Providers Care Engineer Geophysical Laboratory Name Role Phone Terri Ko MD Primary Care Provider [phone] Encounter Details Date Type Department Care Team (Late st Contact Info) Description 05/07/2017 4:28 PM CDT - 05/07/2017 11:59 PM CDT Hospital Encounter [facility] Jordon Caro MD [address] [place] [address] Ivett Del Valle NP [address] [place] [address] Discharge Disposition: Discharge to home or self care Social History Tobacco Use Types Packs/Day Years Used Date Smoking Tobacco: Never Assessed Sex and Gender Information Value Date Recorded Sex Assigned at Not on file Legal Sex Male 9:47 AM CDT Gender Identity Not on file Sexual Orientation Not on file documented as of this encounter Discharge Disposition Disposition Code Departure Means Destination Discharge to home or self care documented in this encounter Plan of Treatment Not on file documented as of this encounter Procedures Procedure Name Priority Date/Time Associated Diagnosis Comments MRI LUMBAR SPINE WO CONTRAST Routine 05/07/2017 10:05 PM CDT documented in this encounter Results * MRI Lumbar Spine WO Contrast (05/07/2017 10:05 PM CDT) Anatomical Region Laterality Modality Spine N/A Magnetic Resonan ce 05/07/2017 10:0 5 PM CDT Narrative 05/07/2017 10:05 PM CDT MR Lumbar Spine WO ??Acc#: ??[id number] DATE OF EXAM: ??May ??2016 ?? MR Lumbar Spine WO HISTORY: Radiculopathy. ??Lower back pain. COMPARISON: None TECHNIQUE: Axial T1 and T2; sagittal T1, T2, and inversion recovery FINDINGS: No acute fractures, subluxations, or wedge compression deformities are seen. ?? The vertebral body heights and bony alignment are normal. Laminectomy changes are noted on the left at L4. ??Disc desiccation is noted throughout the lumbar region. ??Linear high signal is noted posteriorly in the L3-L4 disc suggesting annular tear. No abnormal marrow signal is seen. ??The conus with normal size and signal intensity ends at L1. Segmental analysis: At L1-L2, a diffuse disc protrusion results in central canal narrowing is thecal sac measures 9 mm in AP diameter. ??Facet arthropathy is seen. ??The bilateral neuroforamen are narrowed. At L2-L3, a diffuse disc protrusion is seen without central canal narrowing noted. ??Facet arthropathy narrow the left neural foramen. At L3-L4, severe central canal narrowing secondary to disc protrusion, thickening of the ligamentum flavum, and facet arthropathy. ??Little CSF signal is noted. ??The bilateral neuroforamen are narrowed. At L4-L5, a diffuse disc protrusion results in central canal narrowings thecal sac measures 8 mm in AP diameter. ??Facet arthropathy is noted. ??The bilateral neuroforamen are narrowed. At L5-S1, a left paracentral disc protrusion exerts mass effect on the left exiting nerve root. ??Facet arthropathy results in right neural foraminal narrowing. ??No central canal narrowing is seen. IMPRESSION: 1. ??No acute fracture or subluxation. 2. ??Central canal narrowing at multiple levels as above. 3. ??Left paracentral disc bulge with mass effect on the left exiting nerve root at L4-L5-S1. 3. ??Neuroforaminal narrowing at other levels as above. Electronically signed by: Juan Manuel Salinas M.D. ? Interpreting Physician: ??JUAN MANUEL SALINAS M.D. ??Read on: ??May ??2 2017 ?? 5:11P Transcribed by: ??[facility] ??On: May ??2 2017 ??5:09P Approved Electronically by: ??RITA Rizo, JUAN MANUEL ??on: ??May ??2 2016 ?? 5:09P Ordering DR: IVETT GIRALDO Attending DR: IVETT GIRALDO Attending: ??IVETT GIRALDO Requesting: ??IVETT GIRALDO Requesting Fax: ??[phone] Attending Fax: ??[phone] Attending ID: ??[id number] Requesting ID: ??[id number] Report To 1 ID: ??[id number] Report To 1 Name: ??IVETT GIRALDO Report To 1 FAX: ??[phone] Next[facility] Order #: ?? Procedure Note Miscellaneous, Not In File / Provider, MD Theresa - 05/07/2017 MR Lumbar Spine WO Acc#: [id number] DATE OF EXAM: May 07 2017 MR Lumbar Spine WO HISTORY: Radiculopathy. Lower back pain. COMPARISON: None TECHNIQUE: Axial T1 and T2; sagittal T1, T2, and inversion recovery FINDINGS: No acute fractures, subluxations, or wedge compression deformities are seen. The vertebral body heights and bony alignment are normal. Laminectomy changes are noted on the left at L4. Disc desiccation is noted throughout the lumbar region. Linear high signal is noted posteriorly in the L3-L4 disc suggesting annular tear. No abnormal marrow signal is seen. The conus with normal size and signal intensity ends at L1. Segmental analysis: At L1-L2, a diffuse disc protrusion results in central canal narrowing is thecal sac measures 9 mm in AP diameter. Facet arthropathy is seen. The bilateral neuroforamen are narrowed. At L2-L3, a diffuse disc protrusion is seen without central canal narrowing noted. Facet arthropathy narrow the left neural foramen. At L3-L4, severe central canal narrowing secondary to disc protrusion, thickening of the ligamentum flavum, and facet arthropathy. Little CSF signal is noted. The bilateral neuroforamen are narrowed. At L4-L5, a diffuse disc protrusion results in central canal narrowings thecal sac measures 8 mm in AP diameter. Facet arthropathy is noted. The bilateral neuroforamen are narrowed. At L5-S1, a left paracentral disc protrusion exerts mass effect on the left exiting nerve root. Facet arthropathy results in right neural foraminal narrowing. No central canal narrowing is seen. IMPRESSION: 1. No acute fracture or subluxation. 2. Central canal narrowing at multiple levels as above. 3. Left paracentral disc bulge with mass effect on the left exiting nerve root at L4-L5-S1. 3. Neuroforaminal narrowing at other levels as above. Electronically signed by: Juan Manuel Salinas M.D. Interpreting Physician: JUAN MANUEL SALINAS M.D. Read on: May 07 2017 5:11P Transcribed by: [facility] On: May 07 2017 5:09P Approved Electronically by: JUAN MANUEL SALINAS M.D. on: May 07 2017 5:09P Ordering DR: IVETT GIRALDO Attending DR: IVETT GIRALDO Attending: IVETT GIRALDO Requesting: IVETT GIRALDO Requesting Attending Attending ID: [id number] Requesting ID: [id number] Report To 1 ID: [id number] Report To 1 Name: IVETT GIRALDO Report To 1 FAX: [phone] NextGen Order #: Ivett Del Valle PIE CUTTER IMG MRI PROCEDURES Edited R esult - Final documented in this encounter Visit Diagnoses Not on filedocumented in this encounter Care Teams Engineer Geophysical Laboratory Relationship Specialty Start Date End Date Terri Ko MD [address] [place] [address] PCP - General 05/07/17 04/26/22 documented as of this encounter
--- OUTSIDE RECORDS SUMMARY | 2024-07-28 01:08 | XMS_ITS | Encounter Summary ---
Author Organization [facility] Address [address] [place] [address] Care Team Providers Care Director Of Psychiatry Name Role Phone Faisal Richardson Primary Care Provider Reason for Visit * Auth/Cert Specialty Diagnoses / Procedures Referred By Kd figueroa Referred To Contact Diagnoses Tear of left rotator cuff, unspecified tear extent, unspecified whether traumatic Tear of left rotator cuff, unspecified tear extent, unspecified whether traumatic [M75.102] Procedures DC RECONSTR TOTAL SHOULDER IMPLANT LEFT REVERSE TOTAL SHOULDER ARTHROPLASTY Referral ID Status Reason Start Date Expiration Date Visits Re quested Visits Authorized [id number] 1 1 Encounter Details Date Type Department Care Team (Late st Contact Info) Description 05/02/2022 7:26 AM CDT Anesthesia Event [facility] Operating Room 1 [place] [address] Duke Trent MD PhD [address] [place] [address] Germain Melvin MD [address] [place] [address] Anesthesia Record Procedure Summary Procedure Name Responsible Anesthesiologist Anesthesia Start Time Anesthesia Stop Time LEFT REVERSE TOTAL SHOULDER ARTHROPLASTY (Left: Shoulder) Duke Trent MD PhD 05/02/22 0726 05/02/22 1012 Events Date Time Event Comment 05/02/2022 0533 In Preop 0650 Time out - Regional 0651 An Block Induction The patie nt was reevaluated immediately before moderate or deep sedation and before anesthesia induction. 0651 Face Time 0702 Block Placed 0707 Block Placed 0715 Face Time 0726 An Start 0730 In Room 0730 An Start Data 0745 An Induction The patient was reevaluated immediately before moderate or deep sedation use and before anesthesia induction. 0748 An Intubation 0752 Anesthesia Ready 0822 Proc Start 0825 Incision Start 0940 Proc Fin 0946 An Extubation 0950 Out of Room 1008 Handoff to RN I completed my handoff to the receiving nurse during which we: 1. Patient identified 2. Responsible provider identified 3. Pertinent medical history reviewed 4. Procedure type and surgical course discussed 5. Intraoperative anesthetic management and any significant issues discussed 6. Expectations and concerns for postop period discussed 7. Questions solicited from receiving nurse 8. Patient disposition at the time of handoff: phase II 1012 An Stop 1535 an stop data Meds Name Total midazolam PF 2 mg lidocaine (cardiac) syringe 2 % 40 mg propofol 170 mg fentaNYL 200 mcg succinylcholine 100 mg phenylephrine 100 mcg/mL 300 mcg ePHEDrine 25 mg ondansetron PF (ZOFRAN) 2 mg/mL injectio n 4 mg glycopyrrolate 0.4 mg bupivacaine 0.5 % PF 30 mL ceFAZolin (ANCEF) 2,000 mg/20 mL in ster ile water (premix) 2,000 mg 2,000 mg tranexamic acid 1,000 mg calcium gluconate 1 g phenylephrine infusion (100 mcg/mL) 7.39 mg atropine 0.1 mg/ml 0.5 mg Lactated Ringer's (LR) infusion 1,400 mL * Agents Name O2% N2O O2 N2O Air Sevoflurane Inspired Sevoflurane * Blood No blood administrations on file. Lines, Drains, and Airways Type Details Placement Removal Peripheral IV Placement Date: 05/02/22; Placement Time: 627; Catheter Size: 18 G; Orientation: Posterior, Right; Location: Hand 05/02/22627 by Phuong Paz RN PNB catheter Placement Date: 05/02/22; Placement Time: 826 (created via procedure documentation); Pt Tolerance: brachial plexus - interscalene; Removal Date: Injectable, Topical, None; Removal Time: Tolerated well 05/02/22 08 by Mimi Soto MD Arterial Line Placement Date: 05/02/22; Placemnt Time: 07 (created via procedure documentation); Size: 20 G; Orientation: Right; Location: Radial; Securement: Taped, Transparent dressing; Removal Date: 05/02/22; Removal Time: 1149; Removal Reason: Removal date unknown/not present on admission 05/02/22 0744 by Jose Carrera CRNA 05/02/22 1149 by Mimi Darby RN ETT Placement Date: 05/02/22; Placement Time: 08 (created via procedure documentation); Mask Ventilation: 0; Technique: Video laryngoscopy; Type: ETT - single; Single Lumen Tube Size: 8 mm; Cuffed: Yes; Laryngoscope: Sujey; Blade Size: 00 (x blade); Location: Oral; Insertion Attempts: 1; Placement Verification: Capnometry; Removal Date: 05/02/22; Removal Time: 0946 05/02/22 0847 by Jose Carrera CRNA 05/02/22 0946 by Duke Trent MD PhD RETIRED Surgical Site 05/02/22; 0937; Le ft; Shoulder; 07/08/24 (Retired LDA, Removed/Completed by [facility] with LDA Utility); 1213 (Retired LDA, Removed/Completed by [facility] with LDA Utility) 05/02/22 0937 by Rubia Martinez RN 07/08/24 1213 by Discharge Provider, Automatic documented in this encounter Social History Tobacco [...] on file documented as of this encounter OR Notes * Anesthesia Postprocedure Evaluation - Get Salazar MD - 05/02/2022 10:52 AM CDT Patient: Jose Rutledge Procedure Summary Date: 05/02/22 Room / Location: [facility] OR POD 2 ROOM 208 / [facility] OR POD 2 Anesthesia Start: 725 Anesthesia Stop: Procedure: LEFT REVERSE TOTAL SHOULDER ARTHROPLASTY (Left: Shoulder) Diagnosis: Tear of left rotator cuff, unspecified tear extent, unspecified whether traumatic (Tear of left rotator cuff, unspecified tear extent, unspecified whether traumatic [M75.102]) Surgeons: Guille Guillaume MD Responsible Provider: Duke Trent MD PhD Anesthesia Type: general, regional for postop pain per surgeon request, PNB - continuous catheter ASA Status: 3 Anesthesia Type: general, regional for postop pain per surgeon request, PNB - continuous catheter Last vitals BP 142/77 Pulse 72 Temp 36 ??C (96.8 ??F) (Temporal) Resp 16 SpO2 98% Anesthesia Post Evaluation Patient location during evaluation: PACU Patient participation: complete - patient participated Level of consciousness: fully awake Pain management: satisfactory to patient Airway patency: adequate Evidence of recall: no Cardiovascular status: acceptable and hypertensive Respiratory status: acceptable and room air Hydration status: acceptable Pt is: normothermic Nausea/Vomiting status: none Comments: The patient is ready to be discharged from PACU. BP 142/77 Pulse 72 Temp 36 ??C (96.8??F) (Temporal) Resp 16 SpO2 98% No notable events documented. * Anesthesia Procedure Notes - Jose Carrera CRNA - 05/02/2022 8:45 AM CDTAssociated Order(s): Airway Airway Patient location: OR Urgency: elective Indications for airway management: anesthesia Difficult airway: no Staff: Supervising provider: Duke Trent MD PhD Placed by: REHAB SERVICES AIDE: Jose Carrera CRNA Emergent airway documentation: Risks and benefits discussed: yes Consent obtained: yes Consent given by: patient Airway prep: Preoxygenated: yes Patient position: sniffing Mask difficulty assessment: 0 - not attempted Spontaneous ventilation during airway: absent Sedation level during airway: GA Final airway details: Final airway type: endotracheal airway Tube type: ETT ETT size: 8.0 mm Cuffed: yes Technique used for successful ETT placement: video laryngoscopy Devices/Methods used in placement: stylet Insertion site: oral Blade type: Sujey Video blade type: Rousseau Blade size: 00 (x blade) Cormack-Lehane (video): grade I - full view of glottis Cuff volume: 5 mL Cuff inflated with: air ETT to teeth: 24 cm Placement verified by: CO2 detection Airway secured with: silk tape Number of attempts: 1no * Anesthesia Procedure Notes - Mimi Soto MD - 05/02/2022 8:27 AM CDT Associated Order(s): Peripheral Block Peripheral Block Patient location during procedure: pre-op holding Reason for block: post-op pain management per surgeon request Block type: single shot Laterality: left Block type: intercostobrachial nerve block Staff: Supervising provider: Germain Melvin MD Placed by: Fellow: Mimi Soto MD Procedure prep: Preprocedure checklist: patient identified, procedure contraindications assessed, site marked, procedure consent, surgical consent, IV checked, risks, benefits and alternatives discussed, monitors and equipment checked and timeout performed Patient position: sitting Procedure performed while patient: sedate with meaningful contact Monitoring: oximetry Supplemental O2: nasal cannula Prep solution: chlorhexidine/alcohol Peripheral nerve block: Technique: landmark(s) Needle type: short-bevel Needle gauge: 22 G Needle length: 80 mm Injection assessment: injection made incrementally with constant monitoring, negative aspiration for heme, no paresthesias noted, normal resistance to injection and see flowsheet for medication details Assessment: Block success: full evaluation pending Events: patient tolerated procedure well with no complications Cosigned by Germain Melvin MD at 05/03/2022 7:02 AM CDT * Anesthesia Procedure Notes - Germain Melvin MD - 05/02/2022 8:26 AM CDTAssociated Order(s): Peripheral Block Images from the original note were not included. Peripheral Block Patient location during procedure: pre-op holding Reason for block: post-op pain management per surgeon request Ultrasound image in chart or stored: yes Block type: catheter continuous infusion Laterality: left Block type: brachial plexus - interscalene Staff: Supervising provider: Germain Melvin MD Placed by: Fellow: Mimi Soto MD Procedure prep: Preprocedure checklist: patient identified, procedure contraindications assessed, site marked, procedure consent, surgical consent, IV checked, risks, benefits and alternatives discussed, monitors and equipment checked and timeout performed Patient position: sitting and head of bed elevated Procedure performed while patient: sedate with meaningful contact Monitoring: oximetry Supplemental O2: nasal cannula Prep solution: chlorhexidine/alcohol PPE: provider hat/mask, sterile gloves, sterile drape and sterile probe cover and gel Skin infiltrated with lidocaine 1%: yes Peripheral nerve block: Technique: ultrasound guided Needle type: insulated, short-bevel and echogenic Needle gauge: 21 G Needle length: 80 mm Injection assessment: injection made incrementally with constant monitoring, local visualized surrounding nerve on ultrasound, negative aspiration for heme, no paresthesias noted, normal resistance to injection and see flowsheet for medication details Assessment: Block success: full evaluation pending Events: patient tolerated procedure well with no complications * Anesthesia Procedure Notes - Jose Carrera CRNA - 05/02/2022 7:44 AM CDTAssociated Order(s): Arterial Line Arterial Line Patient location: OR Indication: continuous blood pressure monitoring and blood sampling needed Staff: Supervising provider: Duke Trent MD PhD Placed by: Resident: Jose Raul Trent MD Procedure prep: Prep solution: chlorhexadine/alcohol Prep: provider hat/mask and sterile gloves Skin infiltrated with lidocaine 1%: yes Arterial line: Catheter size: 20 gauge Catheter length: 1 and 3/4 inch Catheter type: wire-guided catheter Seldinger technique: no Laterality: right Site: radial artery Line secured: tape and Tegaderm Results: good waveform Number of attempts: 1 Assessment: Events: patient tolerated procedure well with no complications * Anesthesia Preprocedure Evaluation - Duke Trent MD PhD - 05/02/2022 7:10 AM CDT Images from the original note were not included. 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 + Current valvular disease (10/2021 TTE) - - moderate-severe; Pertinent negatives: KS ; CABG ; valve replacement; atrial fibrillation; arrhythmia; pacemaker/ICD;PVD; DVT/PE; negative for CHF; drug-eluting stent(s); bare metal stent(s); unknown stent(s) type and coronary angioplasty Comments: Follows w/ [facility] LAURA 12/2021 Aortic Stenosis. His echocardiogram in the [...] therapy when feasible in the postoperative period. [employer] staff message sent to surgeon's office. Please call the CPAP attending ([phone]) with any questions. Preoperative evaluation performed by [...] mg 8 hr tablet 04/07/2022 -- -- Theresa Callejas MD amLODIPine (NORVASC) 5 mg tablet 04/07/2022 03/05/22 -- Theresa Callejas MD betamethasone dipropionate (DIPROLENE) 0.05 % ointment 04/07/2022 10/17/20 -- Theresa Callejas MD carvediloL (COREG) 25 mg tablet 04/07/2022 03/05/22 -- Theresa Callejas MD cloNIDine (CATAPRES) 0.1 mg tablet 04/07/2022 03/05/22 -- Theresa Callejas MD clopidogreL (PLAVIX) 75 mg tablet 04/07/2022 03/05/22 -- Theresa Callejas MD cyclobenzaprine (FLEXERIL) 10 mg tablet 04/07/2022 03/05/22 -- Theresa Callejas MD diclofenac DR (VOLTAREN) 75 mg EC tablet 04/07/2022 03/05/22 -- Theresa Callejas MD losartan-hydroCHLOROthiazide (HYZAAR) 100-12.5 mg per tablet [...] cyclobenzaprine (FLEXERIL) 10 mg tablet ??? diclofenac (VOLTAREN) 75 mg EC tablet ??? losartan-hydroCHLOROthiazide [...] ECG(s): 10/25/21 - CE ? Measurements Intervals ?D[place]son ? Rate: ? 67 ? P: ?11 DC: ? 191 ?QRS: ?-13 QRSD: ? 105 [...] septum: Agitated saline contrast study shows no [id number] shunt. Stress test(s): N/A Cardiac catheterization(s): N/A [...] last 720 hours. Jessie index score: 100 DOS Physical Exam Medical history, medications, and allergies reviewed. Attestation: I endorse the findings of the anesthesia pre-evaluation assessment dated: 04/07/2022. Airway Exam: Mallampati: II Cervical ROM: FROM TM distance: 3 Cardiovascular Exam: Rate: regular Rhythm: regular Murmur: holosystolic murmur and grade III/ Negative for peripheral edema Pulmonary Exam: LCTA EENT Exam: trachea midline Dental Exam: Appears intact Skin Exam: Skin is warm. Capillary refill is < 3 seconds. Turgor is normal. Abdominal Exam: Abdomen is soft. Bowel sounds are present. Current state: Patient's current state is cooperative and anxious. Anesthesia Plan ASA 3 My patient is approved for the Anesthesia Controlled Medication protocol when under care of a REHAB SERVICES AIDE Planned anesthesia: General, regional for postop pain per surgeon request and PNB - continuous catheter Team communication plan: oral ET tube Upper extremity: brachial plexus - interscalene and intercostobrachial nerve block Invasive Monitors Planned: Invasive monitors planned: arterial line. Induction: Induction: intravenous. Postoperative Plan: Postoperative administration opioids intended. Postoperative mechanical ventilation intended. Patient's planned disposition post procedure is Floor. No trial extubation planned. Informed Consent: Discussed plan with REHAB SERVICES AIDE, resident and fellow. Anesthesia plan and risks discussed with patient and spouse. Plan and Consent Comments: Risks and benefits of nerve block and GETA d/w patient and his family by regional fellow/ resident,REHAB SERVICES AIDE and myself, including, not limited to, bleeding, infection, nerve injury, pneumothorax, paralyzed, failure, redo, KS/arrythmia/CHF, PE, CVA, left intubated to ICU, etc. They understood and wish to proceed with both nerve block and GA. Questions answered. Plans: 1. Multimodal pain control: Preop nerve blocks (IS catheter or single shot and ICB single shot) forpostop pain control. 2. Intubate the patient in his neutral position of neck/head with C-MAC or AirTraq. -----Preinduction artery line placement 3. Keep the patient normotensive, normovolemic, normocarbic and normothermic. 4. Maintain the patient's MAP slightly higher than his baseline MAP during beach chair positioning,with crystalloid, colloid, and pressors (phenylephrine, ephedrine, CaCl2), etc. ----Large-bore PIV but be cautious of IVF due to his Aortic stenosis (Mod-severe). ----Phenylephrine infusion and bolus due to his recent CVA (in ) and his Aortic stenosis (Mod-severe). -----Other emergency meds in OR. 5. Closely monitoring the patient's blood sugar, ETCO2, etc. 6. Postop NATALY Precautions 7. PONV prophylaxis. Consent and Attending signature: I and/or my designee have discussed the anesthesia plan, benefits, possible alternatives, parental presence at time of induction (if indicated), and clinically relevant risks that may include dental injury, unintentional awareness, and/or other complications. The patient and/or parent/legal guardian understand, and agree to proceed. All questions answered. documented in this encounter Plan of Treatment Not on file documented as of this encounter Procedures Procedure Name Priority Date/Time Associated Diagnosis Comments DC AN PROCEDURE PLACEHOLDER Routine 05/02/2022 8:45 AM CDT DC AN ELECTIVE ENDOTRACHEAL AIRWAY Routine 05/02/2022 8:45 AM CDT DC AN PROCEDURE PLACEHOLDER Routine 05/02/2022 8:27 AM CDT DC AN PROCEDURE PLACEHOLDER Routine 05/02/2022 8:26 AM CDT BW IP ANE LDA PERIPHERAL NERVE CATHETER Routine 05/02/2022 8:26 AM CDT DC AN PROCEDURE PLACEHOLDER Routine 05/02/2022 7:44 AM CDT documented in this encounter Results * DC AN ELECTIVE ENDOTRACHEAL AIRWAY, DC AN PROCEDURE PLACEHOLDER (05/02/2022 8:45 AM CDT) Narrative Jose Carrera CRNA - 05/02/2022 8:45 AM CDT Jose Carrera CRNA ? 05/02/2022 ??8:46 AM Airway Patient location: OR Urgency: elective Indications for airway management: anesthesia Difficult airway: no Staff: Supervising provider: Duke Trent MD PhD Placed by: REHAB SERVICES AIDE: Jose Carrera CRNA Emergent airway documentation: Risks and benefits discussed: yes Consent obtained: yes Consent given by: patient Airway prep: Preoxygenated: yes Patient position: sniffing Mask difficulty assessment: 0 - not attempted Spontaneous ventilation during airway: absent Sedation level during airway: GA Final airway details: Final airway type: endotracheal airway Tube type: ETT ETT size: 8.0 mm Cuffed: yes Technique used for successful ETT placement: video laryngoscopy Devices/Methods used in placement: stylet Insertion site: oral Blade type: Sujey Video blade type: Rousseau Blade size: 00 (x blade) Cormack-Lehane (video): grade I - full view of glottis Cuff volume: 5 mL Cuff inflated with: air ETT to teeth: 24 cm Placement verified by: CO2 detection Airway secured with: silk tape Number of attempts: 1no us Duke Trent MD PhD ANESTHESIA ORDERABLES Final Result * DC AN PROCEDURE PLACEHOLDER (05/02/2022 8:27 AM CDT) Narrative Germain Melvin MD - 05/02/2022 8:27 AM CDT Mimi Soto MD ? 05/02/2022 ??8:28 AM Peripheral Block Patient location during procedure: pre-op holding Reason for block: post-op pain management per surgeon request Block type: single shot Laterality: left Block type: intercostobrachial nerve block Staff: Supervising provider: Germain Melvin MD Placed by: Fellow: Mimi Soto MD Procedure prep: Preprocedure checklist: patient identified, procedure contraindications assessed, site marked, procedure consent, surgical consent, IV checked, risks, benefits and alternatives discussed, monitors and equipment checked and timeout performed Patient position: sitting Procedure performed while patient: sedate with meaningful contact Monitoring: oximetry Supplemental O2: nasal cannula Prep solution: chlorhexidine/alcohol Peripheral nerve block: Technique: landmark(s) Needle type: short-bevel Needle gauge: 22 G Needle length: 80 mm Injection assessment: injection made incrementally with constant monitoring, negative aspiration for heme, no paresthesias noted, normal resistance to injection and see flowsheet for medication details Assessment: Block success: full evaluation pending Events: patient tolerated procedure well with no complications Duke Trent MD PhD ANESTHESIA ORDERABLES Final Result * BW IP ANE LDA PERIPHERAL NERVE CATHETER, DC AN PROCEDURE PLACEHOLDER (05/02/2022 8:26 AM CDT) Narrative Germain Melvin MD - 05/02/2022 8:26 AM CDT Germain Melvin MD ? 05/03/2022 ??7:02 AM Peripheral Block Patient location during procedure: pre-op holding Reason for block: post-op pain management per surgeon request Ultrasound image in chart or stored: yes Block type: catheter continuous infusion Laterality: left Block type: brachial plexus - interscalene Staff: Supervising provider: Germain Melvin MD Placed by: Fellow: Mimi Soto MD Procedure prep: Preprocedure checklist: patient identified, procedure contraindications assessed, site marked, procedure consent, surgical consent, IV checked, risks, benefits and alternatives discussed, monitors and equipment checked and timeout performed Patient position: sitting and head of bed elevated Procedure performed while patient: sedate with meaningful contact Monitoring: oximetry Supplemental O2: nasal cannula Prep solution: chlorhexidine/alcohol PPE: provider hat/mask, sterile gloves, sterile drape and sterile probe cover and gel Skin infiltrated with lidocaine 1%: yes Peripheral nerve block: Technique: ultrasound guided Needle type: insulated, short-bevel and echogenic Needle gauge: 21 G Needle length: 80 mm Injection assessment: injection made incrementally with constant monitoring, local visualized surrounding nerve on ultrasound, negative aspiration for heme, no paresthesias noted, normal resistance to injection and see flowsheet for medication details Assessment: Block success: full evaluation pending Events: patient tolerated procedure well with no complications us Duke Trent MD PhD ANESTHESIA ORDERABLES Final Result * DC AN PROCEDURE PLACEHOLDER (05/02/2022 7:44 AM CDT) Narrative Jose Carrera CRNA - 05/02/2022 7:44 AM CDT Jose Carrera CRNA ? 05/02/2022 ??7:44 AM Arterial Line Patient location: OR Indication: continuous blood pressure monitoring and blood sampling needed Staff: Supervising provider: Duke Trent MD PhD Placed by: Resident: Jose Raul Trent MD Procedure prep: Prep solution: chlorhexadine/alcohol Prep: provider hat/mask and sterile gloves Skin infiltrated with lidocaine 1%: yes Arterial line: Catheter size: 20 gauge Catheter length: 1 and 3/4 inch Catheter type: wire-guided catheter Seldinger technique: no Laterality: right Site: radial artery Line secured: tape and Tegaderm Results: good waveform Number of attempts: 1 Assessment: Events: patient tolerated procedure well with no complications us Duke Trent MD PhD ANESTHESIA ORDERABLES Final Result documented in this encounter Visit Diagnoses Not on filedocumented in this encounter Administered Medications Inactive Administered Medications - up to 3 most recent administrations Medication Order MAR Action Action Date Dose Rate Site atropine injection intravenous, Administer over 1 Minutes, As needed, Starting on Sun05/02/22 at 0819, Anesthesia Intra-op Given 05/02/2022 8:19 AM CDT 0.5 mg bupivacaine (MARCAINE) 0.5 % (5 mg/mL) preservative free injection perineural, As needed, Starting on Sun05/02/22 at 0702, Anesthesia Intra-op Given 05/02/2022 7:06 AM CDT 10 mL Given 05/02/2022 7:02 AM CDT 20 mL calcium gluconate 100 mg/mL (10%) injection intravenous, As needed, Starting on Sun05/02/22 at 0812, Anesthesia Intra-op Given 05/02/2022 8:12 AM CDT 1 g ceFAZolin (ANCEF) 2,000 mg/20 mL in sterile water (premix) 2,000 mg 2,000 mg, intravenous, at 400 mL/hr, Administer over 3 Minutes, Once, On Sun05/02/22 at 0630, For 1 dose, Pre-Op, Administer within 60 minutes of incision., Indications: Prophylaxis, SurgicalIndications:Prophylaxis, Surgical Given 05/02/2022 8:06 AM CDT 2,000 mg ePHEDrine injection intravenous, Administer over 5 Minutes, As needed, Starting on Sun05/02/22 at 0801, Anesthesia Intra-op Given 05/02/2022 8:09 AM CDT 10 mg Given 05/02/2022 8:05 AM CDT 10 mg Given 05/02/2022 8:01 AM CDT 5 mg fentaNYL (SUBLIMAZE) preservative free injection intravenous, As needed, Starting on Sun05/02/22 at 0650, Anesthesia Intra-op Given 05/02/2022 7:45 AM CDT 50 mcg Given 05/02/2022 7:34 AM CDT 50 mcg Given 05/02/2022 6:50 AM CDT 100 mcg glycopyrrolate (ROBINUL) injection intravenous, Administer over 1 Minutes, As needed, Starting on Sun05/02/22 at 0800, Anesthesia Intra-op Given 05/02/2022 8:02 AM CDT 0.2 mg Given 05/02/2022 8:00 AM CDT 0.2 mg Lactated Ringer's (LR) infusion 30 mL/hr, intravenous, Continuous, Starting on Sun05/02/22 at 0630 New Bag 05/02/2022 8:26 AM CDT New Bag 05/02/2022 7:30 AM CDT lidocaine (cardiac) (XYLOCAINE) preservative free injection intravenous, As needed, Starting on Sun05/02/22 at 0746, Anesthesia Intra-op, Indications: Ventricular ArrhythmiasIndications:Ventricular Arrhythmias Given 05/02/2022 7:46 AM CDT 40 mg midazolam (VERSED) 1 mg/mL preservative free injection intravenous, Administer over 2 Minutes, As needed, Starting on Sun05/02/22 at 0650, Anesthesia Intra-op Given 05/02/2022 6:50 AM CDT 2 mg ondansetron (ZOFRAN) injection intravenous, Administer over 2 Minutes, As needed, Starting on Sun05/02/22 at 0927, Anesthesia Intra-op Given 05/02/2022 9:27 AM CDT 4 mg phenylephrine (RONEN-SYNEPHRINE) 1 mg/10 mL (100 mcg/mL) in sodium chloride 0.9% (premix) intravenous, As needed, Starting on Sun05/02/22 at 0746, Anesthesia Intra-op Given 05/02/2022 9:17 AM CDT 100 mcg Given 05/02/2022 8:51 AM CDT 100 mcg Given 05/02/2022 7:46 AM CDT 100 mcg phenylephrine (RONEN-SYNEPHRINE) 5 mg/50 mL (100 mcg/mL) in sodium chloride 0.9% (premix) intravenous, Continuous PRN, Starting on Sun05/02/22 at 0746, Anesthesia Intra-op Rate/Dose Change 05/02/2022 9:27 AM CDT 0.6 mcg/kg/min 38.448 mL/hr Rate/Dose Change 05/02/2022 9:18 AM CDT 0.8 mcg/kg/min 51. 264 mL/hr Rate/Dose Change 05/02/2022 9:15 AM CDT 1 mcg/kg/min 64.08 mL/hr propofoL (DIPRIVAN) 10 mg/mL IV intravenous, As needed, Starting on Sun05/02/22 at 0746, Anesthesia Intra-op Given 05/02/2022 7:51 AM CDT 40 mg Given 05/02/2022 7:46 AM CDT 130 mg succinylcholine (ANECTINE) injection intravenous, As needed, Starting on Sun05/02/22 at 0747, Anesthesia Intra-op Given 05/02/2022 7:47 AM CDT 100 mg tranexamic acid (CYKLOKAPRON) 1,000 mg/10 mL (100 mg/mL) solution intravenous, As needed, Starting on Sun05/02/22 at 0820, Anesthesia Intra-op Given 05/02/2022 8:20 AM CDT 1,000 m g documented in this encounter Care Teams Director Of Psychiatry Relationship Specialty Start Date End Date Faisal Richardson DO [address] [place] [address] PCP - General Family Medicine 04/27/22 documented as of this encounter
--- OUTSIDE RECORDS SUMMARY | 2024-07-28 01:08 | XMS_ITS | Encounter Summary ---
Author Organization [facility] Address [address] [place] [address] Phone Care Team Providers Care Apprentice Plumber Name Role Phone Terri Ko MD Primary Care Provider [phone] Encounter Details Date Type Department Care Team (Late st Contact Info) Description 03/15/2022 Telephone [facility] Orthopaedic Surgery [address] [facility] Medicine 6th [place] [address] [place] [address] Cheryl Rivera RMA Social History Tobacco Use Types Packs/Day Years Used Date Smoking Tobacco: Never Sex and Gender Information Value Date Recorded Sex Assigned at Not on file Legal Sex Male 9:47 AM CDT Gender Identity Not on file Sexual Orientation Not on file documented as of this encounter Miscellaneous Notes * Telephone Encounter - Cheryl Rivera RMA - 03/15/2022 12:59 PM CDT Called patient to schedule injection ordered by . No response, so left voice mail requesting a call back. * Telephone Encounter - Cheryl Rivera RMA - 03/15/2022 10:47 AM CDT Called patient to schedule injection ordered by . No response, so left voice mail requesting a call back. documented in this encounter Plan of Treatment Not on file documented as of this encounter Visit Diagnoses Not on filedocumented in this encounter Care Teams Apprentice Plumber Relationship Specialty Start Date End Date Terri Ko MD [address] [place] [address] PCP - General 05/07/17 04/26/22 documented as of this encounter
--- OUTSIDE RECORDS SUMMARY | 2024-07-28 01:08 | XMS_ITS | Encounter Summary ---
Author Organization [facility] Address [address] [place] [address] Care Team Providers Care Antenna Specialist Name Role Phone Terri Ko MD Primary Care Provider [phone] Encounter Details Date Type Department Care Team (Latest Contact Info) Description 07/20/2017 8:30 AM AUTO PARTS HANDLER - 07/20/2017 11:59 PM AUTO PARTS HANDLER Hospital Encounter [facility] [phone] Julio Santoro MD [address] [facility] [address] [place] [address] Jacy Owens, [facility] [address] [facility] [address] [place] [address] Discharge Disposition: Discharge to home or self [...] Name Priority Date/Time Associated Diagnosis Comments XR SPINE LUMBAR ROUTINE Routine 07/20/2017 2:49 PM AUTO PARTS HANDLER documented in this encounter Results * XR Spine Lumbar Routine (07/20/2017 2:49 PM AUTO PARTS HANDLER) Anatomical Region Laterality Modality L-spine N/A Radiographic Sabi ging 07/20/2017 2:49 PM AUTO PARTS HANDLER Narrative 07/20/2017 8:32 PM AUTO PARTS HANDLER JASON FITCH MD, PHD LEANNA BRIONES M.D. FINAL REPORT The radiology attending physician has personally reviewed this study, and has reviewed and/or edited this written report and agrees with it. ACC# ??Date Time ??Exam [id number] Jul 20, 2017 08:49:00 [id number] Spine Lumbar min 4 views EXAMINATION: ??Spinal lumbar minimum 4 views HISTORY: Back pain FINDINGS: AP, lateral neutral flexion and extension views of the lumbar spine are submitted for interpretation without comparison. There is mild dextrocurvature of the lumbar spine centered at L3. There is grade 1 anterolisthesis of L4 on L5 with no change on flexion or extension. There is severe multilevel facet osteoarthritis. ??There is mild multilevel degenerative disc disease worst at L5-S1. ??Vertebral body heights are maintained. ??The left kidney is shrunken compared to the right kidney. IMPRESSION: ??1. ??Mild multilevel degenerative disc disease worst at L5-S1. 2. ??Grade 1 anterolisthesis of L4 on L5 with no change on flexion or extension. Electronically signed by: Jason Fitch MD, PHD Requested By: JACY OWENS C.N.S. Dictated By: ?? LEANNA BRIONES M.D. ??on Jul 20 2017 10:20A This document has been electronically signed by: JASON FITCH MD, PHD on Jul 20 2017 ??2:30P [id number] FITCH MD, PHD LEANNA BRIONES M.D. FINAL REPORT The radiology attending physician has personally reviewed this study, and has reviewed and/or edited this written report and agrees with it. Attending: ??NABEEL, ??JACY Requesting: ??NABEEL, ??JACY Requesting Fax: ?? Attending Fax: ?? Attending ID: ??[id number] Requesting ID: ??[id number] Report To 1 ID: ??[id number] ? Report To 1 Name: ??, ?? Report To 1 FAX: ?? NextGen Order #: ?? Procedure Note Miscellaneous, Not In File - 07/20/2017 JASON FITCH MD, PHD LEANNA BRIONES M.D. FINAL REPORT The radiology attending physician has personally reviewed this study, and has reviewed and/or edited this written report and agrees with it. ACC# Date Time Exam [id number] Jul 20, 2017 08:49:00 [id number] Spine Lumbar min 4 views EXAMINATION: Spinal lumbar minimum 4 views HISTORY: Back pain FINDINGS: AP, lateral neutral flexion and extension views of the lumbar spine are submitted for interpretation without comparison. There is mild dextrocurvature of the lumbar spine centered at L3. There is grade 1 anterolisthesis of L4 on L5 with no change on flexion or extension. There is severe multilevel facet osteoarthritis. There is mild multilevel degenerative disc disease worst at L5-S1. Vertebral body heights are maintained. The left kidney is shrunken compared to the right kidney. IMPRESSION: 1. Mild multilevel degenerative disc disease worst atL5-S1. 2. Grade 1 anterolisthesis of L4 on L5 with no change on flexion or extension. Electronically signed by: Jason Fitch MD, PHD Requested By: JACY OWENS.NThaiS. Dictated By: LEANNA BRIONES M.D. on Jul 20 2017 10:20A This document has been electronically signed by: JASON FITCH MD, PHD on Jul 20 2017 2:30P [id number] FITCH MD, PHD LEANNA BRIONES M.D. FINAL REPORT The radiology attending physician has personally reviewed this study, and has reviewed and/or edited this written report and agrees with it. Attending: JACY OWENS Requesting: JACY OWENS Requesting Fax: Attending Fax: Attending ID: [id number] Requesting ID: [id number] Report To 1 ID: [id number] Report To 1 Name: , Report To 1 FAX: NextGen Order #: Jacy Owens PICKING TECH IMG XR PROCEDURES Final Res ult documented in this encounter Visit Diagnoses Not on filedocumented in this encounter Care Teams Antenna Specialist Relationship Specialty Start Date End Date Terri Ko MD [address] [place] [address] PCP - General 05/07/17 04/26/22 documented as of this encounter
--- OUTSIDE RECORDS SUMMARY | 2024-07-28 01:08 | XMS_ITS | Encounter Summary ---
Author Organization [facility] Address [address] [place] [address] Phone Care Team Providers Care Preparation Center Coordinator Name Role Phone Faisal Richardson DO Primary Care Provider Encounter Details Date Type Department Care Team (Late st Contact Info) Description 04/27/2022 Telephone [facility] Orthopaedic Surgery [address] [facility] Advanced Medicine 12th [place] [address] [place] [address] Guille Guillaume MD [address] [facility] [address] [place], [place] [id number] Social History Tobacco Use Types Packs/Day Years [...] Telephone Encounter - Teresa Agudelo RN - 04/27/2022 2:53 PM CDT OS Shoulder and Elbow - Telephone Note PreOp Surgery Arrival Time Call Arrival Time: 05 Surgery Date: 05/02/2022 Arrival Location: [facility] Floor Registration/Waiting Patient understood no food or drink after MN. Confirmed that patient has Chlorhexidine soap and reminded to shower with antibacterial soap provided to the patient at the pre-op anesthesia appointment on the evening before and the morning of surgery Confirmed patient understands exactly what medications should be held prior to surgery. Verified that patient understands exactly what medications to take AM of surgery. Educated patient on the following post-op DVT prophylaxis plan: Resume your anticoagulant that you were prescribed by your youth agent or PCP Verified if patient has CPAP machine & remind them to bring it with them to the hospital. Verified that patient has someone who will be caring for them AT LEAST 48 hours post-op. Joint motorcoach operator/caregiver name is Minerva. Instructed patient to have joint motorcoach operator at the hospital on the day of discharge to observe nursing staff/OT/PT sessions. Confirmed that the current visitor policy allows only one visitor. Informed that approximate discharge time is by noon day after your surgery Verified changes in medical status and clean skin integrity. documented in this encounter Plan of Treatment Not on file documented as of this encounter Visit Diagnoses Not on filedocumented in this encounter Care Teams Preparation Center Coordinator Relationship Specialty Start Date End Date Faisal Richardson DO [facility] [place] [address] PCP - General Family Medicine 04/27/22 documented as of this encounter
--- OUTSIDE RECORDS SUMMARY | 2024-07-28 01:09 | XMS_ITS | Encounter Summary ---
Author Organization [facility] Address [address] [place] [address] Care Team Providers Care Inward Toll Operator Name Role Phone Faisal Richardson Primary Care Provider [phone] Reason for Visit * Reason Comments Med Refill Encounter Details Date Type Department Care Team (Late st Contact Info) Description 05/31/2023 Refill [facility] NEUROLOGY - [facility] [address] [place] [address] Torrey Lorenzo MD [address] [facility] [address] [place] [address] History of TIA (transient ischemic attack) and stroke Social History Tobacco Use Types Packs/Day Years Used Date Smoking Tobacco: Never Alcohol Use Standard Drinks/Week Comments Yes 5 (1 standard drink = 0.6 oz pur e alcohol) social Sex and Gender Information Value Date Recorded Sex Assigned at Not on file Gender Identity Not on file Sexual Orientation Not on file documented as of this encounter Miscellaneous Notes * Telephone Encounter - Annalise Petit - 05/31/2023 8:33 AM CDT Recent Visits Date Type Provider Dept 01/30/22 Office Visit Torrey Lorenzo MD [facility] Neurology [id number] Showing recent visits within past 540 days with a meds authorizing provider and meeting all other requirements Future Appointments No visits were found meeting these conditions. Showing future appointments within next 150 days with a meds authorizing provider and meeting all other requirements NOV is not scheduled. Sending to scheduling team Last Ordered: 01/04/2023/ 30 tablets/ 5 rf documented in this encounter Plan of Treatment Not on file documented as of this encounter Visit Diagnoses Diagnosis History of TIA (transient ischemic attack) and stroke documented in this encounter Care Teams Inward Toll Operator Relationship Specialty Start Date End Date Faisal Richardson DO [address] [place] [address] PCP - General Family Practice 10/25/21 documented as of this encounter
--- OUTSIDE RECORDS SUMMARY | 2024-07-28 01:09 | XMS_ITS | Encounter Summary ---
Author Organization [facility] Address [address] [place] [address] Care Team Providers Care Manufacturing Millwright Name Role Phone Faisal Richardson DO Primary Care Provider [phone] Reason for Visit * Reason Onset Date Comments Medical Records 04/19/2022 Encounter Details Date Type Department Care Team (Late st Contact Info) Description 04/19/[address] [address] Agnes Mcmullen, RN Medical Records Social History Tobacco Use Types Packs/Day Years Used Date Smoking Tobacco: Never Alcohol Use Standard Drinks/Week Comments Yes 5 (1 standard drink = 0.6 oz pur e alcohol) social Sex and Gender Information Value Date Recorded Sex Assigned at Not on file Gender Identity Not on file Sexual Orientation Not on file documented as of this encounter Miscellaneous Notes * Telephone Encounter - Agnes Mcmullen RN - 04/19/2022 4:07 PM CDT Called [facility]. Spoke with Riri. Relayed pt has only one office visit note. We have seenhim once as new pt. Relayed if all records from hospital stay needs to be requested from [facility] Medical Records. Called and relayed to pt to contact [facility] Records. Pt verbalized understanding * Telephone Encounter - Agnes Mcmullen RN - 04/19/2022 4:05 PM CDT Pt called stating medical records needed to be sent to [facility]. Asked to call [facility] to discuss what exactly needs to be sent. Speak with Riri [phone] opt. 2 documented in this encounter Plan of Treatment Not on file documented as of this encounter Visit Diagnoses Not on filedocumented in this encounter Care Teams Manufacturing Millwright Relationship Specialty Start Date End Date Faisal Richardson DO [address] [place] [address] PCP - General Family Practice 10/25/21 documented as of this encounter
--- OUTSIDE RECORDS SUMMARY | 2024-07-28 01:09 | XMS_ITS | Encounter Summary ---
Author Organization [facility] Address [address] Thomasn: Epic Prelude ADT [place] [address] Care Team Providers Care Parts Identifier Name Role Phone Faisal Richardson DO Primary Care Provider [phone] Encounter Details Date Type Department Care Team (Latest Contact Info) Description 01/30/2022 Travel Social History Tobacco Use Types Packs/Day [...] suspected to have Coronavirus/COVID-19? No / Unsure 01/30/2022 2:41 PM CDT documented as of this encounter Plan of Treatment Not on file documented as of this encounter Visit Diagnoses Not on filedocumented in this encounter Care Teams Parts Identifier Relationship Specialty Start Date End Date Faisal Richardson DO [address] [place] [address] PCP - General Family Practice 10/25/21 documented as of this encounter
--- OUTSIDE RECORDS SUMMARY | 2024-07-28 01:09 | XMS_ITS | Encounter Summary ---
Author Organization [facility] Address [address] [place] [address] Care Team Providers Care Link Trainer Mechanic Name Role Phone Faisal Richardson DO Primary Care Provider Reason for Visit * Reason Comments Med Refill Encounter Details Date Type Department Care Team (Late st Contact Info) Description 06/26/2023 Refill [facility] NEUROLOGY - [address] [place] [address] Torrey Lorenzo MD [address] [address] History of TIA (transient ischemic attack) [...] encounter Miscellaneous Notes * Telephone Encounter - Rosa Luis - 06/26/2023 10:39 AM CST LAURA: 01/30/22 CXL: 07/28/22 R MAN documented in this encounter Plan of Treatment Not on file documented as of this encounter Visit Diagnoses Diagnosis History of TIA (transient ischemic attack) and stroke documented in this encounter Care Teams Link Trainer Mechanic Relationship Specialty Start Date End Date Faisal Richardson DO [address] [place] [address] PCP - General Family Practice 10/25/21 documented as of this encounter
--- OUTSIDE RECORDS SUMMARY | 2024-07-28 01:09 | XMS_ITS | Encounter Summary ---
Author Organization [facility] Address [address] [place] [address] Care Team Providers Care Puller Machine Name Role Phone Faisal Richardson DO Primary Care Provider [phone] Encounter Details Date Type Department Care Team (Late st Contact Info) Description 02/22/2022 Abstract [facility] NEUROLOGY - [address] [address] Torrey Lorenzo MD [address] [address] Social History Tobacco Use Types Packs/Day Years [...] on filedocumented in this encounter Care Teams Puller Machine Relationship Specialty Start Date End Date Faisal Richardson DO [address] [place] [address] PCP - General Family Practice 10/25/21 documented as of this encounter
--- OUTSIDE RECORDS SUMMARY | 2024-07-28 01:09 | XMS_ITS | Encounter Summary ---
Author Organization [facility] Address [address] [place] [address] Care Team Providers Care Speech Language Pathology Assistant Name Role Phone Faisal Richardson Primary Care Provider [phone] Reason for Visit * Reason Onset Date Comments surgery form 05/01/2022 Encounter Details Date Type Department Care Team (Late st Contact Info) Description 05/01/2022 Telephone [facility] NEUROLOGY [address] [address] Agnes Mcmullen, rn plastic surgery form Social History Tobacco Use Types Packs/Day Years [...] Telephone Encounter - Agnes Mcmullen RN - 05/02/2022 11:43 AM CDT Form faxed * Telephone Encounter - Agnes Mcmullen RN - 05/01/2022 7:18 AM CDT Surgery form received to verify if ok to DC plavix prior to hip surgery 2021. Placed on Dr. Lorenzo's desk for signature documented in this encounter Plan of Treatment Not on file documented as of this encounter Visit Diagnoses Not on filedocumented in this encounter Care Teams Speech Language Pathology Assistant Relationship Specialty Start Date End Date Faisal Richardson DO [address] [place] [address] PCP - General Family Practice 10/25/21 documented as of this encounter
--- OUTSIDE RECORDS SUMMARY | 2024-07-28 01:09 | XMS_ITS | Encounter Summary ---
Author Organization [facility] Address [address] [place] [address] Care Team Providers Care Printing And Stamping Supervisor Name Role Phone Faisal Richardson Primary Care Provider [phone] Reason for Visit * Reason Comments Med Refill Encounter Details Date Type Department Care Team (Late st Contact Info) Description 06/24/2022 Refill [facility] NEUROLOGY - [facility] [address] [place] [address] Torrey Lorenzo MD [address] [facility] [address] [place] [address] History of TIA (transient ischemic attack) and stroke (Primary Dx) Social History Tobacco Use Types [...] Notes * Telephone Encounter - Rosa Luis Tamica - 06/25/2022 6:38 PM CST Recent Visits Date Type Provider Dept 01/30/22 Office Visit Torrey Lorenzo MD [facility] Neurology [id number] Showing recent visits within past 540 days with a meds authorizing provider and meeting all other requirements Future Appointments Date Type Provider Dept 07/28/22 Appointment Torrey Lorenzo MD [facility] Neurology [address] [id number] Showing future appointments within next 150 days with a meds authorizing provider and meeting all other requirements Last Ordered: 01.30.22 #30 RF 5 AL ASSISTANT INSTRUCTOR documented in this encounter Plan of Treatment Not on file documented as of this encounter Visit Diagnoses Diagnosis History of TIA (transient ischemic attack) and stroke- Primary documented in this encounter Care Teams Printing And Stamping Supervisor Relationship Specialty Start Date End Date Faisal Richardson DO [address] [place] [address] PCP - General Family Practice 10/25/21 documented as of this encounter
--- OUTSIDE RECORDS SUMMARY | 2024-07-28 01:09 | XMS_ITS | Encounter Summary ---
Author Organization [facility] Address [address] [place] [address] Care Team Providers Care Peanut Vendor Name Role Phone Faisal Richardson Primary Care Provider [phone] Reason for Visit * Reason Comments Med Refill Encounter Details Date Type Department Care Team (Late st Contact Info) Description 01/04/2023 Refill [facility] NEUROLOGY - [facility] [address] [place] [address] Torrey Lorenzo MD [address] [facility] [address] [place] [address] History of TIA (transient ischemic [...] Telephone Encounter - Rosa Luis Tamica - 01/04/2023 11:10 AM CDT Recent Visits Date Type Provider Dept 01/30/22 Office Visit Torrey Lorenzo MD [facility] Neurology [id number] Showing recent visits within past 540 days with a meds authorizing provider and meeting all other requirements Future Appointments No visits were found meeting these conditions. Showing future appointments within next 150 days with a meds authorizing provider and meeting all other requirements Last Ordered: 06/26/22 #30 RF 5 documented in this encounter Plan of Treatment Not on file documented as of this encounter Visit Diagnoses Diagnosis History of TIA (transient ischemic attack) and stroke documented in this encounter Care Teams Peanut Vendor Relationship Specialty Start Date End Date Faisal Richardson DO [address] [place] [address] PCP - General Family Practice 10/25/21 documented as of this encounter
--- OUTSIDE RECORDS SUMMARY | 2024-07-28 01:09 | XMS_ITS | Encounter Summary ---
Author Organization [facility] Address [address] [place] [address] Care Team Providers Care Business Manager [employer] Name Role Phone Faisal Richardson Primary Care Provider [phone] Reason for Visit * Reason Onset Date Comments Employer Paperwork 02/22/2022 Encounter Details Date Type Department Care Team (Late st Contact Info) Description 02/22/2022 Telephone [facility] [id number] [facility] [address] [place] [address] Rajiv Berger, RN Employer Paperwork Social History Tobacco Use Types Packs/Day Years [...] PM CDT documented as of this encounter Miscellaneous Notes * Telephone Encounter - Rajiv Berger RN - 04/11/2022 3:49 PM CDT Pt called in regards to needing medical records faxed to: [phone]. Message routed to Janice. * Telephone Encounter - Rajiv Berger RN - 04/05/2022 4:56 PM CDT Paperwork faxed. * Telephone Encounter - Agnes Mcmullen RN - 03/23/2022 9:15 AM CDT Pt called stated [employer] had not received forms. Verified with pt fax number. [phone]. Forms faxed via Immediately while on phone with pt * Telephone Encounter - Rajiv Berger RN - 03/07/2022 10:37 AM CDT Paperwork signed by Dr. Lorenzo and faxed to: [phone]. Pt notified. * Telephone Encounter - Rajiv Berger RN - 03/07/2022 9:54 AM CDT Employer paperwork completed and given to Dr. Lorenzo to sign. * Telephone Encounter - Rajiv Berger RN - 02/22/2022 12:19 PM CDT [facility] paperwork completed and given to Dr. Lorenzo to sign. documented in this encounter Plan of Treatment Not on file documented as of this encounter Visit Diagnoses Not on filedocumented in this encounter Care Teams Business Manager [employer] Relationship Specialty Start Date End Date Faisal Richardson DO [address] [place] [address] PCP - General Family Practice 10/25/21 documented as of this encounter
--- OUTSIDE RECORDS SUMMARY | 2024-07-28 01:09 | XMS_ITS | Clinical Summary ---
Author Organization [facility] Address [address] [place] [address] Phone Care Team Providers Care Fountain Pen Turner Name Role Phone Faisal Richardson DO Primary Care Provider Allergies Active Allergy Reactions Criticality Noted Date Comments Penicillins Hives High 10/05/2021 Medications Medication Sig Dispensed Refills Start Date End Date Status metFORMIN (GLUCOPHAGE) 1,000 mg tablet Take 1,000 mg by mouth 2 times daily with meals. Active cloNIDine HCL (CATAPRES) 0.1 mg tablet Take 0.1 mg by mouth 2 times daily. Active carvediloL (COREG) 25 mg tablet Take 25 mg by mouth 2 times daily with meals. Active cyclobenzaprine (FLEXERIL) 10 mg tablet Take 10 mg by mouth 2 times daily as needed for Spasm. Active aspirin (RAKAN CHEWABLE) 81 mg Tablet, Chewable Starting 10/08, Chew 1 Tablet (81 mg) by mouth daily with breakfast. 19 Tablet 10/08/2021 Active betamethasone dipropionate (DIPROSONE) 0.05 % Ointment as needed. 10/17/2020 Active diclofenac sodium (VOLTAREN) 75 mg Tablet, Delayed Release (E.C.) 01/29/2022 Active dulaglutide (Trulicity) 1.5 mg/0.5 mL injection Inject 1.5 mg by subcutaneous injection. 10/17/2021 Active acetaminophen (TYLENOL) 500 mg tablet 08/06/2021 Active amLODIPine (NORVASC) 5 mg tablet 10/17/2021 Active losartan-hydroCHLOR Othiazide (HYZAAR) 100-12.5 mg tablet 10/17/2021 Active pfmauqge-api-yehlq- vit K-lycop (One-A-Day Men's Multivitamin) 400-20-300 mcg Tablet 08/06/2021 Active rosuvastatin (CRESTOR) 20 mg tablet 01/29/2022 Active clopidogreL (PLAVIX) 75 mg TabletIndications:H istory of TIA (transient ischemic attack) and stroke take one tablet by mouth daily 30 Tablet 05/31/2023 Active Active Problems Problem Noted Date Diagnosed Date Acute stroke due to ischemia Type 2 diabetes mellitus with other specified co mplication Vertigo of central origin Hyperlipidemia Essential hypertension Closed fracture of nasal bones Dizziness HTN (hypertension), benign H/O ischemic vertebrobasilar artery brainstem [facility] Closed left maxillary fracture Closed fracture of tooth Laceration of forehead Moderate aortic stenosis Immunizations Name Administration Dates Next Due (ADACEL/BOOSTRIX)(10 YR UP) TDAP VACCINE, 0.5ML, IM 10/25/2021 Family History Medical History Relation Name Comments Diabetes Brother 1 Diabetes Brother 2 No Known Problems Daughter Cancer Father Diabetes Mother Stroke Mother No Known Problems Sister Relation Name Status Comments Brother 1 Alive Brother 2 Alive Brother 3 Daughter Alive Father Mother Sister Alive Social History Tobacco Use Types Packs/Day Years [...] Sign Reading Time Taken Comments Blood Pressure 112/60 01/30/2022 3:55 PM CDT Pulse 73 01/30/2022 3:55 PM CDT Temperature 37.6 ??C (99.6 ??F) 10/26/2021 11:51 AM C DT Respiratory Rate 16 10/26/2021 11:55 AM CDT Oxygen Saturation 99% 01/30/2022 3:55 PM CDT Inhaled Oxygen Concentration - - Weight 114.8 kg (253 lb) 01/30/2022 3:55 PM CDT Height 182.9 cm (6') 01/30/2022 3:55 PM CDT Body Mass Index 34.31 01/30/2022 3:55 PM CDT Plan of Treatment Health Maintenance Due Date Last Done Comments PNEUMOCOCCAL VACCINE 0-64 YEARS (1 of 2 - PCV) 1970 DIABETES ANNUAL FOOT EXAM 1982 DIABETES ANNUAL RETINAL EXAM 1982 DIABETES MICROALBUMIN ANNUAL SCREEN 1982 COLORECTAL SCREENING 2009 Colorectal Cancer Screening 2009 FIT-DNA Q 3 years 2009 FIT/FOBT Q 1 year 2009 Flex Sig/CT Colonography Q 5 years 2009 ZOSTER VACCINE (1 of 2) 2014 LDL CHOLESTEROL ANNUAL 10/06/2022 10/06/2021 INFLUENZA VACCINE (#1) 2024 DIABETES HBA1C Q 6 MONTHS 03/25/20242023, 12/14/2022, 11/27/2022, Additional history exists DTAP/TDAP/TD VACCINES (2 - Td or Tdap) 10/26/2031 10/25/2021 RSV VACCINE (60+ or ) (1 - 1-dose 75+ series) 2039 HEPATITIS B VACCINES Aged Out No long er eligible based on patient's age to complete this topic Procedures Procedure Name Priority Date/Time Associated Diagnosis Comments LIPID PANEL Routine 10/06/2021 5:16 AM LOSS PREVENTION SUPERVISOR HEMOGLOBIN A1C Routine 10/06/2021 5:16 AM LOSS PREVENTION SUPERVISOR from Last 3 Months or Most Recently Relevant to Health Maintenance Results * (ABNORMAL) HEMOGLOBIN A1C (10/06/2021 5:16 AM LOSS PREVENTION SUPERVISOR) HEMOGLOBIN A1C 7.1(H) <5.7 % 10/06/2021 6:02 AM LOSS PREVENTION SUPERVISOR [facility] EST. AVG GLUCOSE, A1C 157 mg/dL 10/06/2021 6:02 AM [facility] [employer] [facility] Blood Venipuncture / Unknown 10/06/2021 5:16 AM LOSS PREVENTION SUPERVISOR 10/06/2021 5:26 AM LOSS PREVENTION SUPERVISOR Narrative [facility] - 10/06/2021 6:02 AM LOSS PREVENTION SUPERVISOR HGB A1C INTERPRETATION NORMAL: ? <5.7% PRE-DIABETES: 5.7 - 6.4% DIABETES: ? 6.5% OR GREATER Vaishali Wilson NP CHEMISTRY ORDERABLES [facility] [employer] [facility] - [facility]# [id number] [address] [place] [address] * (ABNORMAL) LIPID PANEL (10/06/2021 5:16 AM LOSS PREVENTION SUPERVISOR) CHOLESTEROL 166 <200 mg/dL 10/06/2021 6:14 AM [facility] [employer] [facility] - . SHYLA TRIGLYCERIDE 254(H) <150 mg/dL 10/06/2021 6:14 AM [facility] [employer] [facility] - . [facility] HDL 30(L) 40 - 59 mg/dL 10/06/2021 6:14 AM [facility] [employer] [facility]. [facility] LDL CALCULATED 85 <100 mg/dL 10/06/2021 6:14 AM [facility] [employer] [facility] NON-HDL CHOLESTEROL 136(H) <130 mg/dL 10/06/2021 6:14 AM [facility] [employer] [facility] - . [facility] Blood Venipuncture / Unknown 10/06/2021 5:16 AM LOSS PREVENTION SUPERVISOR 10/06/2021 5:26 AM [facility] [employer] [facility] - [facility] - 10/06/2021 6:14 AM LOSS PREVENTION SUPERVISOR TOTAL CHOLESTEROL ??mg/dL ??Desirable <200 ??Borderline high 200-239 ??High >=240 TRIGLYCERIDES ??mg/dL ??Normal <150 ??Borderline high 150-199 ??High 200-499 ??Very high >=500 HDL CHOLESTEROL ??mg/dL ??Low <40 ??Normal 40-59 ??Desirable >=60 NON HDL CHOLESTEROL mg/dL ??Optimal <130 ??Near Optimal 130-159 ??Borderline High 160-189 ??Very High >=190 CALCULATED LDL mg/dL ??LDL <70, OPTIMAL if have Atherosclerotic cardiovascular disease (ASCVD) ??or intermediate or higher (>7.5%) 10 year risk of ASCVD including most adults ??with diabetes. ??LDL <100, Optimal in adult patients with low (<7.5%) 10 year ASCVD risk ??LDL 100-160, Suboptimal ??LDL >160, High ??LDL >190, Very high ATPIII Guidelines Reference Ranges for Lipid Panels (NCEP/AMA) . Vaishali Wilson TAIL DOGGER CHEMISTRY ORDERABLES [facility] - [facility]# [id number] [address] [place] [place] [phone] from Last 3 Months or Most Recently Relevant to Health Maintenance Advance Directives For more information, please contact: [phone] * Full Code (Latest Code Status on File) Date Activated Date Inactivated Comments 10/25/2021 6:38 PM 10/26/2021 4:31 PM * Full Code Date Activated Date Inactivated Comments 10/06/2021 10:50 AM 10/07/2021 3:53 PM * Full Code Date Activated Date Inactivated Comments 10/05/2021 10:44 PM 10/06/2021 10:50 AM Care Teams Fountain Pen Turner Relationship Specialty Start Date End Date Faisal Richardson DO [address] [place] [address] PCP - General Family Practice 10/25/21
--- OUTSIDE RECORDS SUMMARY | 2024-07-28 01:10 | XMS_ITS | Encounter Summary ---
Author Organization [facility] Address [address] [place] [address] Care Team Providers Care Real Estate Internship Name Role Phone Faisal Richardson DO Primary Care Provider [phone] Reason for Referral * Consult, Test & Treat (Routine) - Closed Specialty Diagnoses / Procedures Referred By Kd t Referred To Contact Physical Therapy Diagnoses Cerebrovascular disease History of TIA (transient ischemic attack) and stroke Torrey Lorenzo MD [address] [place] [address] [place] [address] Referral ID Status Reason Start Date Expiration Date V isits Requested Visits Authorized [id number] Closed Ordering Dept To Review (STL) 01/30/2022 01/30/2023 6 6 Reason for Visit * Reason Comments Stroke Establish Care * Eval and Treat (8-30 Days) - Closed Specialty Diagnoses / Procedures Referred By Kd t Referred To Contact Diagnoses Cerebrovascular accident (CVA), unspecified mechanism Vaishali Wilson, FAYE [address] [place] [address] Nargis Trent MD [address] [address] Referral ID Status Reason Start Date Expiration Date Visits Re quested Visits Authorized [id number] Closed 10/06/2021 10/06/2022 1 1 Encounter Details Date Type Department Care Team (Latest Contact Info) Description 01/30/2022 3:30 PM CDT Office Visit [facility] - [facility] [id number] [facility] [address] [place] [address] Torrey Lorenzo MD [address] [facility] [address] [place] [address] Cerebrovascular disease (Primary Dx); History of TIA (transient ischemic attack) and [...] Pulse 73 01/30/2022 3:55 PM CDT Temperature - - Respiratory Rate - - Oxygen Saturation 99% 01/30/2022 3:55 PM CDT Inhaled Oxygen Concentration - - Weight 114.8 kg (253 lb) 01/30/2022 3:55 PM CDT Height 182.9 cm (6') 01/30/2022 3:55 PM CDT Body Mass Index 34.31 01/30/2022 3:55 PM CDT documented in this encounter Progress Notes * Torrey Lorenzo MD - 01/30/2022 4:11 PM CDT NEUROLOGY NOTE 01/30/2022 Jose Rutledge 1965 Chief Complaint: Stroke HISTORY: Joes is a 56 year old man with a past medical history of obesity, obstructive sleep apnea (on CPAP), hypertension, hyperlipidemia, diabetes mellitus, peptic ulcer disease, who presents for evaluation and treatment of stroke. Presented to the ED in early October 2021 with complaint of dizziness and leftward leaning/drift thatstarted after awakening on SundayOctober 01 while in OR. He had been drinking the night before and initially attributed his symptoms to alcohol/hangover so did not seek medical attention. On Sunday he went to where a CTH showed NAICP. Returned home to [facility] and saw his PT, who suspected a central etiology. 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 CTA H&N did not show LVO or LV disease. TTE showed , LVEF 60%, no PFO or thrombus. Worked with PT/OT/ST. Discharged on DAPT and high intensity statin. Presented to the hospital 10/25/2021 after a fall. Was taking a shower in the morning. Was going tosee Dr. Trent. Bent over in the shower and fell, striking his face. Had to use walker just Presents today with his . Was taking a baby aspirin daily before the stroke. Was not on a statin. No new stroke or TIA symptoms. No transient or persistent focal neurological deficits. Feels that his recovery has hit a plateau. Residual mild vertigo. Sometimes exacerbated by moving quickly or too much. Balance is somewhat off. No further falls. Not using assistive devices. When very stressed out he feels easily fatigued. Right side is numb and temperature sensation is altered, hyperesthesia, allodynia. This affects thearm, trunk, and leg. No weakness per se. No change in hearing or vision. Stopped physical therapy due to severe back pain / futility. Did not get handouts for vestibular exercises. Planning for back surgery February 28. Back pain and right sided sciatic pain is severe. Taking Aspirin 81 mg daily. Taking Crestor 20 mg daily. 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 All werenegative, with the exception of the following: negative except as noted above Past Medical History Past Medical History: Diagnosis Date ??? Diabetes mellitus ??? HTN (hypertension) ??? Hyperlipidemia ??? PUD (peptic ulcer disease) Past Surgical History Past Surgical History: Procedure Laterality Date ??? HX APPENDECTOMY ??? HX LUMBAR LAMINECTOMY Left Family History Family History Problem Relation Name Age of Onset ??? Cancer Father ??? Stroke Mother ??? Diabetes Mother ??? No Known Problems Sister ??? Diabetes Brother ??? No Known Problems Daughter ??? Diabetes Brother Social History Social History Socioeconomic History ??? Marital status: Spouse name: Not on file ??? Number of children: Not on file ??? Years of education: Not on file ??? Highest education level: Not on file Occupational History ??? Not on file Tobacco Use ??? Smoking status: Never Smoker ??? Smokeless tobacco: Not on file Vaping Use ??? Vaping Use: Never used Substance and Sexual Activity ??? Alcohol use: Yes Alcohol/week: 5.0 standard drinks Types: 5 Cans of beer per week Comment: social ??? Drug use: Not Currently ??? Sexual activity: Yes Other Topics Concern ??? Not on file Social History Narrative Live with in a house Social Determinants of Health Financial Resource Strain: Not on file Food Insecurity: Not on file Transportation Needs: Not on file Physical Activity: Not on file Stress: Not on file Social Connections: Not on file Intimate Partner Violence: Not on file Housing Stability: Not on file Allergies Penicillins Medications All current medications were reviewed with the patient. PHYSICAL EXAMINATION: General Examination Vitals: 01/30/22 1555 BP: 112/60 Pulse: 73 SpO2: 99% Weight: 114.8 kg (253 lb) Height: 6' (1.829 m) - General NAD, Pleasant, Cooperative - HEENT Head AT & NC - Neck Supple, Soft, NT; No bruit; Trachea midline; No JVD; No LAD; No thyromegaly - Extremities Radial and DP pulses 2+; No edema; No cyanosis; Warm - Musculoskeletal Normal ROM Neurologic Examination Cortical/Higher Function MS: Awake, alert, oriented to person, place, time, situation Follows commands Memory: Immediate, recent, and remote memory intact Language: Fluency, comprehension intact Speech: No dysarthria or dysphonia VF: Intact to confrontation all quadrants bilaterally Neglect: No visual or tactile neglect appreciated Cranial Nerves Pupils round and briskly reactive to light bilaterally; accomodation normal EOMI bilaterally; No ptosis; No nystagmus Facial sensation intact bilaterally (forehead, infraorbital, jaw) Masseter and temporalis strength intact bilaterally Facial movements intact (upper and lower) bilaterally Hearing intact to finger rub bilaterally Palate elevation intact and symmetric bilaterally SCM and trapezius strength intact bilaterally Tongue protrusion intact and symmetric Motor Abnormal Movements: None Kinesia: Normal Bulk: Normal Tone: Normal Strength: RUE 4/5 delt (?shoulder pain), 4+/5 bi, 5/5 tri, 4+/5 wrist, 4/5 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 LUE 4/5 delt (?shpilder pain), otherwise 5/5 RLE 5/5 except 4-/5 HF (LBP) LLE 5/5 DTR: 2+ Lt KJ 1+ Rt KJ Sensory Decreased slightly to LT RLE Otherwise intact Cerebellar FNF intact bilaterally Gait and Balance Antalgic gait (low back, ?right hip) ;; mild difficulty tandem gait Romberg sign present Laboratory studies reviewed Microbiology studies reviewed Imaging studies reviewed ASSESSMENT/PLAN: Assessment and Medical Decision Making Stroke - As detailed above - Likely 2/2 HTN and other risk factors (based on location and hx) Cerebrovascular disease Diagnostic and Treatment Plan - Extensively discussed diagnosis, pathophysiology, and treatment plan - Counseled on potential side effects of medications and/or other treatments - After visit summary (AVS) was explained in detail to patient or family. Questions and answered; verbalized understanding. CEREBROVASCULAR DISEASE, HISTORY OF STROKE - Counseled on importance of diet (lean protein, low saturated fat, low sugars) (e.g., Mediterranean diet), exercise, maintaining healthy body weight - Control of vascular risk factors per PCP - blood pressure (goal <140/90), blood sugar (goal A1C < 7%), cholesterol (goal LDL < 100) - Stop taking Aspirin 81 mg daily - Start Plavix 75 mg daily - Continue Rosuvastatin (Crestor) 20 mg daily - Continue using CPAP nightly for NATALY - Referred to physical and vestibular therapies for further therapy (strength and balance) and to learn home exercises - Agree with pending back surgery ;; hopefully will address pain and increase activity FOLLOW UP - Return to clinic in 6 months or sooner if needed - Call or message with questions or concerns - Instructed to call 911 immediately for any acute onset focal neurologic symptoms I spent 60 minutes preparing for (including chart review), performing, and documenting the encounter with the patient. TOBACCO COUNSELING He is not a tobacco user. Thank you for allowing me to participate in care of this patient, and feel free to call my office should you have any further questions. Torrey Lorenzo MD [facility] documented in this encounter Miscellaneous Notes * Patient Instructions - Torrey Lorenzo MD - 01/30/2022 4:50 PM CDT CEREBROVASCULAR DISEASE, HISTORY OF STROKE - Counseled on importance of diet (lean protein, low saturated fat, low sugars) (e.g., Mediterranean diet), exercise, maintaining healthy body weight - Control of vascular risk factors per PCP - blood pressure (goal <140/90), blood sugar (goal A1C < 7%), cholesterol (goal LDL < 100) - Stop taking Aspirin 81 mg daily - Start Plavix 75 mg daily - Continue Rosuvastatin (Crestor) 20 mg daily - Continue using CPAP nightly for NATALY - Referred to physical and vestibular therapies for further therapy (strength and balance) and to learn home exercises - Agree with pending back surgery ;; hopefully will address pain and increase activity FOLLOW UP - Return to clinic in 6 months or sooner if needed - Call or message with questions or concerns - Instructed to call 911 immediately for any acute onset focal neurologic symptoms documented in this encounter Plan of Treatment Scheduled Referrals Name Type Priority Associated Diagnoses Orde r Schedule AMB REFERRAL TO PHYSICAL THERAPY Outpatient Referral Routine Cerebrovascular disease History of TIA (transient ischemic attack) and stroke Ordered: 01/30/2022 documented as of this encounter Visit Diagnoses Diagnosis Cerebrovascular disease- Primary Cerebrovascular disease, unspecified History of TIA (transient ischemic attack) and stroke documented in this encounter Care Teams Real Estate Internship Relationship Specialty Start Date End Date Faisal Richardson DO [address] [place] [address] PCP - General Family Practice 10/25/21 documented as of this encounter
--- OUTSIDE RECORDS SUMMARY | 2024-07-28 01:10 | XMS_ITS | Encounter Summary ---
Author Organization [facility] Address [address] [facility] Attn: Epic Prelude ADT [place] [address] Care Team Providers Care Condenser Tester Name Role Phone Unavailable Primary Care Provider Unavailabl e Encounter Details Date Type Department Care Team (Latest Contact Info) Description 10/06/2021 Travel Social History Tobacco Use Types Packs/Day [...] or suspected to have Coronavirus / COVID-19? Unable to assess 10/06/2021 11:07 AM SUPERVISOR SIGN SHOP documented as of this encounter Plan of Treatment Not on file documented as of this encounter Visit Diagnoses Not on filedocumented in this encounter
--- OUTSIDE RECORDS SUMMARY | 2024-07-28 01:10 | XMS_ITS | Encounter Summary ---
Author Organization [employer] [facility] Address [address] [place] [address] Care Team Providers Care Esthetician/Spa Coordinator Name Role Phone Unavailable Primary Care Provider Unavailabl e Reason for Referral * Eval and Treat (8-30 Days) - Closed Specialty Diagnoses / Procedures Referred By Kd figueroa Referred To Contact Diagnoses Cerebrovascular accident (CVA), unspecified mechanism Vaishali Wilson NP [address] [place] [address] Nargis Trent MD [address] [facility] [address] [address] Referral ID Status Reason Start Date Expiration Date Visits Re quested Visits Authorized [id number] Closed 10/06/2021 10/06/2022 1 1 TS ANALYST Reason for Visit * Reason Comments Stroke Pt arrives to ED wit h c/o Stroke per [facility] and received MRI scan. Pt c/o dizziness, weakness and difficulty ambulating since Sunday morning. Pt unable to open eyes d/t dizziness. Pt c/o weakness to left side. * Auth/Cert Specialty Diagnoses / Procedures Referred By Kd figueroa Referred To Contact Neurology [facility] [address] [place] [address] Referral ID Status Reason Start Date Expiration Date Visits Re quested Visits Authorized [id number] 1 1 Encounter Details Date Type Department Care Team (Latest Contact Info) Description 10/05/2021 4:49 PM SPORTS ANALYST - 10/07/2021 1:53 PM SPORTS ANALYST Hospital Encounter [facility] Neurology [address] [place] [address] Joey Barajas MD [address] [place] [address] Yoly Bucio MD [address] [facility] [address] [address] Jesús Delgado MD [address] [place] [address] Ina Collins MD [address] [place] [address] Acute stroke due to ischemia Discharge Disposition: Home or Self Care Social [...] COVID-19? Unable to assess 10/06/2021 11:07 AM SPORTS ANALYST documented as of this encounter Last Filed Vital Signs Vital Sign Reading Time Taken Comments Blood Pressure 141/77 10/07/2021 8:03 AM SPORTS ANALYST Pulse 71 10/07/2021 8:03 AM SPORTS ANALYST Temperature 36.4 ??C (97.6 ??F) 10/07/2021 8:03 AM CS T Respiratory Rate 16 10/07/2021 8:03 AM SPORTS ANALYST Oxygen Saturation 97% 10/07/2021 8:03 AM SPORTS ANALYST Inhaled Oxygen Concentration - - Weight 130.8 kg (288 lb 6.4 oz) 10/07/2021 4:27 AM SPORTS ANALYST Height 182.9 cm (6') 10/05/2021 11:13 PM SPORTS ANALYST Body Mass Index 39.11 10/05/2021 11:13 PM SPORTS ANALYST documented in this encounter Discharge Summaries * Lyla Casper DO - 10/07/2021 7:36 AM CST [facility] Adult Discharge Summary Taylor De Jesus 56 y.o. male 1965 CSN: [id number] Date of Admission: 10/05/2021 Date of Discharge: 10/07/2021 Discharging Physician: Lyla Casper DO LOS: 2 days PCP: No primary care provider on file. Code Status at Discharge: Full Code Dispo: Home Labs and studies from this hospitalization needing follow up: ?? None Follow-up: You must follow up with your PCP in 5 days Admitting Dx and Chief Complaint Chief Complaint Patient presents with ??? Stroke Pt arrives to ED with c/o Stroke per [facility] and received MRI scan. Pt c/o dizziness, weakness and difficulty ambulating since Sunday morning. Pt unable to open eyes d/t dizziness. Pt c/oweakness to left side. Acute stroke due to ischemia Discharge Diagnoses and Relevant Hospital Course: Active Hospital Problems Diagnosis ??? Acute stroke due to ischemia ??? Type 2 diabetes mellitus with other specified complication ??? Vertigo of central origin ??? Hyperlipidemia ??? Essential hypertension Resolved Hospital Problems No resolved problems to display. Taylor De Jesus is a 56 y.o. male with known history of HTN, HLD, T2DM, obesity and NATALY waiting on CPAPmachine. Patient presented to the ED on 10/05/2021 with complaints of dizziness and MRI positive stroke. ?? Patient was on vacation in [place] last week. He states on Sunday night he had a few drinks and woke Sunday morning feeling very dizzy and overall unwell. He also noted a leftward lean or drift with ambulation. He initially thought symptoms were alcohol-related, however they persisted into Sundayso he was seen in urgent care. Head CT showed nothing acute so patient was discharged home with meclizine and Zofran. On return to [place] patient was evaluated by his physical therapist who felt his symptoms were more central issue than peripheral and recommended further evaluation. He returned to his PCP who ordered an MRI which revealed left medullary stroke, and was subsequently sent to theED for further work-up. Neurology was consulted and evaluated in the ED. They gave loading dose of Plavix 300 mg and started him on daily ASA 81 mg with high intensity statin. CTA head and neck was obtained, showing no acute changes. TTE revealed aortic stenosis (already known to patient) but no systolic or diastolic dysfunction, LVEF of 60%, no PFO or outflow obstruction. His SAFE AND VAULT SERVICE MECHANIC blood pressure meds were initially heldto allow for permissive hypertension, however when work-up was benign his medications were reinstated, with the exception of his HCTZ-losartan, which remained held at discharge. Patient worked with PT, OT and DIRECTOR COUNCIL ON AGING during admission with some improvement in his dizziness and gait. Neurology cleared patient for discharge with plan to continue 3 weeks of DAPT with ASA and Plavix,followed by Plavix monotherapy. We will also discharge on increased dose Crestor 40 mg. Patient wasinstructed to follow-up with his PCP within 5-10 days of discharge. He will continue outpatient PT and will follow up with [facility] neurology as able. On discharge we will continue to hold the HCTZ-losartan, with instructions to resume the medication for persistently elevated blood pressures (SBP >140). Nutritional status and in-house recommendations: Current Diet and/or Nutritional Supplementation ordered: No diet orders on file Discharge medications and new prescriptions: Medication List START taking these medications aspirin 81 mg Tablet, Chewable Commonly known as: RAKAN CHEWABLE Starting 10/08, Chew 1 Tablet (81 mg) by mouth daily with breakfast. Start taking on: October 08, 2021 Signed by: Lyla Casper DO Quantity: 19 Tablet Refills: 0 clopidogreL 75 mg Tablet Commonly known as: PLAVIX Take 1 Tablet (75 mg) by mouth daily. Start taking on: October 08, 2021 Signed by: Lyla Casper DO Quantity: 30 Tablet Refills: 0 ondansetron 4 mg Tablet, Rapid Dissolve Commonly known as: ZOFRAN ODT Take 1 Tablet (4 mg) by mouth every 6 hours as needed for Nausea/Emesis. Dissolve tablet on top of tongue, then swallow with saliva. Signed by: Lyla Casper DO Quantity: 15 Tablet Refills: 0 CHANGE how you take these medications rosuvastatin 40 mg tablet Commonly known as: CRESTOR What changed: ?? medication strength ?? how much to take Take 1 Tablet (40 mg) by mouth daily. Signed by: Lyla Casper, DO Quantity: 30 Tablet Refills: 0 CONTINUE taking these medications amLODIPine 10 mg tablet Commonly known as: NORVASC Take 10 mg by mouth daily. Refills: 0 carvediloL 25 mg tablet Commonly known as: COREG Take 25 mg by mouth 2 times daily with meals. Refills: 0 cephALEXin 500 mg capsule Commonly known as: KEFLEX Take 500 mg by mouth 4 times daily. Refills: 0 cloNIDine HCL 0.1 mg tablet Commonly known as: CATAPRES Take 0.1 mg by mouth 2 times daily. Refills: 0 cyclobenzaprine 10 mg tablet Commonly known as: FLEXERIL Take 10 mg by mouth 2 times daily as needed for Spasm. Refills: 0 glipiZIDE 10 mg tablet Commonly known as: GLUCOTROL Take 10 mg by mouth daily with breakfast. Refills: 0 meclizine 25 mg Tablet, Chewable Take 25 mg by mouth every 6 hours. Refills: 0 metFORMIN 1,000 mg tablet Commonly known as: GLUCOPHAGE Take 1,000 mg by mouth 2 times daily with meals. Refills: 0 pantoprazole 40 mg Tablet, Delayed Release (E.C.) Commonly known as: PROTONIX Take 40 mg by mouth daily. Refills: 0 STOP taking these medications diclofenac sodium 75 mg Tablet, Delayed Release (E.C.) Commonly known as: VOLTAREN losartan-hydroCHLOROthiazide 100-12.5 mg tablet Commonly known as: HYZAAR Where to Get Your Medications These medications were sent to [address] [address] ?? aspirin 81 mg Tablet, Chewable ?? clopidogreL 75 mg Tablet ?? ondansetron 4 mg Tablet, Rapid Dissolve ?? rosuvastatin 40 mg tablet Consultants: IP CONSULT TO CASE MANAGEMENT Brief Synopsis of Diagnostic Studies This Admission (Please see full report for details): XR CHEST PA OR AP 1 VW DATE: 10/05/2021 6:19 PM FINDINGS: The lungs are clear. There are no pleural abnormalities. Cardiomediastinal silhouette is normal in width and contour. Osseous structures are unremarkable. IMPRESSION: Clear lungs. COMPUTED TOMOGRAPHY ANGIOGRAPHY (CTA) OF THE HEAD AND NECK WITH AND WITHOUT IV CONTRAST DATE: 10/05/2021 7:03 PM IMPRESSION: 1. Non-contrast head CT demonstrates no acute intracranial hemorrhage. Acute ischemic infarct in the left lateral medulla seen on the prior brain MRI is not visible by CT. 2. CTA of the neck demonstrates no acute abnormality. No high-grade ICA stenosis. 3. CTA of the head demonstrates no arterial occlusion or high grade stenosis. Moderate focal stenosis of the left P2 OCCUPATIONAL THERAPY CO DIRECTOR segment. Discharge Lab Data (Please note date of lab as some may have preceeded admission) Lab Results Component Value Date WBC 7.3 10/07/2021 HGB 13.6 10/07/2021 HCT 41.8 10/07/2021 PLT 190 10/07/2021 NA 140 10/07/2021 CL 102 10/07/2021 K 4.2 10/07/2021 CO2 23 10/07/2021 BUN 11 10/07/2021 CREAT 0.74 10/07/2021 GLUCOSE 183 (H) 10/07/2021 INR 1.1 10/05/2021 AST 34 10/05/2021 ALT 42 (H) 10/05/2021 Discharge Exam: BP (!) 141/77 (BP Location: Left arm, Patient Position (BP): Supine) Pulse 71 Temp 97.6 ??F (36.4 ??C) (Oral) Resp 16 Ht 6' (1.829 m) Wt 130.8 kg (288 lb 6.4 oz) SpO2 97% BMI 39.11 kg/m?? Last documented weight: Weight: 130.8 kg (288 lb 6.4 oz) (10/07/21 042) Physical Exam: General: Awake and alert. Cooperative. NAD. HEENT: PERRLA. No nystagmus. Neck supple. Oropharynx moist. CV:??RRR.??No murmur, rub or gallop. Pulses present and equal bilaterally. Pulm: Lungs CTAB. No wheeze or rhonchi. Breathing unlabored. Abd: Protuberant but soft, NT, ND. No rebound or guarding. BS normal. MSK:??ROM normal. No LE edema. RLE w/o warmth or erythema. No obvious open wound or active infection. Skin: Warm and dry. No jaundice, pallor or erythema. Neuro: Mentation at baseline. CNII-XII intact. No focal deficit appreciated. Psych: Mood, affect, behavior normal. Discharge Condition: stable. Activity: activity as tolerated. Diet: heart healthy Wound Care: None needed Primary Emergency Contact: Extended Emergency Contact Information Primary Emergency Contact: edwige de jesus Mobile Relation: Spouse Preferred language: Martiniquais Colorist Photography needed? No Secondary Emergency Contact: luz de jesus Mobile Relation: Daughter Preferred language: Martiniquais Colorist Photography needed? No Signed: Lyla Casper DO 10/07/2021, 4:19 PM TS ANALYST Associated attestation - Ina Collins MD - 10/08/2021 11:19 AM SPORTS ANALYST [facility] Adult Hospitalist Attending Note I reviewed the medical record including the resident???s note (available as hyperlink below). I waspresent with the resident and participated during the history and physical examination of the patient on 10/07/2021. The laboratory findings and assessment and plan was reviewed with the resident. I also performed the critical or ma portion(s) of the service as documented below, and was directly involved in the management of the patient and supervised the care provided. Feeling well this morning. No cp, no sob. No f/c/n/v. Mild dizziness, stable. I have reviewed the physical exam findings in the resident???s note; my notable physical exam findings include: Alert, no distress Heart rrr Lungs ctabl Abdomen soft and NT No pitting edema I have reviewed the labs that were obtained over the last 24 hours. Notable amendments to the assessment and plan include: Patient Active Problem List Diagnosis Code Acute stroke due to ischemia I63.9 Type 2 diabetes mellitus with other specified complication E11.69 Vertigo of central origin H81.4 Hyperlipidemia E78.5 Essential hypertension I10 Clinically stable, ECHO without atrial enlargement. Ok to dc home. Instructions were to take losartan-hctz if SBP >140. I called him on 10/08 to clarify this because was not stated explicitly in resident note or discharge instructions. He actually took his losartan-hctz this a.m and recent BP was 137/60. Instructed him to continue all his home BP medications. See resident note for additional details. Ina Collins MD Department of Internal Medicine Approximately 35 minutes was spent in the care of this patient today; more than 50% was spent in counseling and coordination of care (patient/family conference, nursing conference and/or discussion with consultants). This patient is covered by internal medicine residents; per ACGME guidelines residents must write orders for patients under their care, with appropriate supervision by the attending physician . Please contact the attending physician on covered patients only if you are unable to reach the resident,or if you have an emergency. To reach Internal Medicine covered patients: Sunday-Sunday 7 AM- 7 PM: Please contact the resident via secure chat. The resident responsible for the patient will be on the Treatment Team listed as Resident If no response you may call the director information digital marketing intern at zone phone [phone]. If no response you may call the director information senior resident at zone phone [phone] If no response please contact the attending of record via secure chat. 7 PM to 7 AM: The long call/night float resident should be listed as Resident on the treatment team and can be reached via secure chat. If no response you may call the director information digital marketing intern at zone phone [phone]. If no response you may call the director information senior resident at zone phone [phone] Sunday and Sunday: 7 AM-12 PM: Please contact the resident via secure chat. The resident responsible for the patient will be on the Treatment Team listed as Resident 12 PM-7 AM: The long call/night float resident should be listed as Resident on the treatment teamand can be reached via secure chat. If no response call the director information digital marketing intern at zone phone [phone]. If no response you may call the director information senior resident at zone phone [phone] If no response please contact the Rapid Access Hospitalist via secure chat. documented in this encounter Discharge Instructions * Discharge Instructions* Lyla Casper, DO - 10/07/2021 12:19 PM SPORTS ANALYST Your discharging physicians are Ina Collins, * /Lyla Casper DO and may be reached at [phone] for any questions or concerns until you see your primary care physician. FOLLOW-UP Follow up with No primary care provider on file. within 5 days of discharge. This post hospital follow up visit presents a critical opportunity to address the conditions that precipitated your hospitalization and to review the new medications prescribed to your during your stay. Referral has been placed for outpatient follow-up with neurology. Contact [facility] neurologist group to schedule appointment. PRESCRIPTIONS GIVEN? Escribed You are being started on a blood thinning medication. Please do not combine with ibuprofen,motrin, Advil or Aleve without talking to your doctor as it may increase your chance of bleeding. Please call your doctor or go to the emergency room if you experience any bleeding such as coughing up blood, urinating blood, or blood in your stool. SELF CARE: getting rest, eating well and increasing your activity appropriately are all excellent ways to return to your usual state of health prior to this hospital stay. ACTIVITY: Your activity level is: increase activity as tolerated. You may return to work/school: As able DIET Your diet is: regular and heart healthy. TS ANALYST * Attachments The following attachments cannot be sent through Care Everywhere. * Life After Stroke Beth (Martiniquais) * Stroke: Secondary Prevention: General Info (Martiniquais) * Stroke: Risk Factors: General Info (Martiniquais) * Stroke (Martiniquais) documented in this encounter Medications at Time of Discharge Medication Sig Dispensed Refills Start Date End Date betamethasone dipropionate (DIPROSONE) 0.05 % Ointment as needed. 10/17/2020 acetaminophen (TYLENOL) 500 mg tablet 08/06/2021 omzcnkvt-vqr-mnnuf-vit K-lycop (One-A-Day Men's Multivitamin) 400-20-300 mcg Tablet 08/06/2021 aspirin (RAKAN CHEWABLE) 81 mg Tablet, Chewable Starting 10/08, Chew 1 Tablet (81 mg) by mouth daily with breakfast. 19 Tablet 10/08/2021 metFORMIN (GLUCOPHAGE) 1,000 mg tablet Take 1,000 mg by mouth 2 times daily with meals. cloNIDine HCL (CATAPRES) 0.1 mg tablet Take 0.1 mg by mouth 2 times daily. carvediloL (COREG) 25 mg tablet Take 25 mg by mouth 2 times daily with meals. cyclobenzaprine (FLEXERIL) 10 mg tablet Take 10 mg by mouth 2 times daily as needed for Spasm. documented as of this encounter Progress Notes * Kristin Winslow RN - 10/06/2021 6:40 PM CST Patient is alert and orient x4, no c/o pain noted at this time, VSS, moves with one person stand byassist, continent for bowel and bladder, able to verbalize his needs, family present at bedside, call light with in reach, will scotty to monitor. TS ANALYST * Marci Santos - 10/06/2021 11:04 AM CST Referral received via stroke pathway and chart reviewed. Therapy recommending home with home healthvs OP therapy. Will continue to follow. Thank you for the referral. TS ANALYST * Cedric Le SLP - 10/06/2021 10:40 AM CST DIRECTOR COUNCIL ON AGING consult received per Stroke pathway. The chart was reviewed and the determination was made thatthis Pt does not appear to require an DIRECTOR COUNCIL ON AGING evaluation in any of the following areas at this time: swallowing, speech, language, voice, or cognition. Therefore, an evaluation will not be formally completed. If the attending physician or consulting neurologist would like an evaluation, please re-consult DIRECTOR COUNCIL ON AGING with specific concerns. Additionally, patient passed OT cognitive screening. Thank you. Cedric Turner M.S., [facility]-DIRECTOR COUNCIL ON AGING Speech-Language Pathologist [facility] Zone Phone: [phone] Weekend DIRECTOR COUNCIL ON AGING Pediatric: [phone] Weekend DIRECTOR COUNCIL ON AGING Adult: [phone] TS ANALYST * Vaishali Wilson NP - 10/06/2021 8:29 AM CST [facility] Neurology Inpatient Progress Note LOS: 1 day Previous history of present illness and review of systems have been reviewed today as documented inthe initial H&P from on 10/05/2021 initial consultation note from 10/05/2021; medications, labs, studies, notes, orders and consults have been reviewed. I have reviewed pertinent interval notes in EMR. Subjective: Events and/or additional history since last note: -Alert and awake, no new symptoms -States that the dizziness is slightly better ROS: No fever, chills No chest pain No nausea, vomiting Neurologic as per HPI The following is the HPI from the original Consult note: Taylor De Jesus is a 56 y.o. male with known medical history of hypertension, hyperlipidemia, diabetes,obstructive sleep apnea waiting on his CPAP, and overweight, who presented to emergency room with dizziness and MRI positive stroke. Patient states that he was on a vacation down in [place]. He had a few drinks Sunday night and Sunday morning he felt really dizzy. He thought it was due to drinking he slept all day every time when he tries to get up he is leaning to his left. Sunday he went to urgent care where his head CT did not show anything acute thus he was discharged with meclizine and Zofran. When he saw his primary doctor yesterday who sent her to physical therapist. However physical therapist thought his symptoms more related to central issue than peripheral thus recommended going back to his primary doctor. His primary doctor ordered MRI brain which revealed left medullary stroke, for which we were consulted to further assist with evaluation and management. Patient has not checked his blood pressure but takes her blood pressure medication daily. Takes a baby aspirin daily. He does not smoke. Patient drinks 5-6 beer 3-4 nights a week. Patient was diagnosed with obstructive sleep apnea and waiting on his CPAP machine currently. Patient's mother had a stroke twice, the first 1 in her 40s, etiology unclear she was a heavy smoker per family. Patient alsocomplains of pain in her ears right leg states that he was diagnosed with cellulitis. He also has pain in his bilateral lower extremities due to lower back. He has had 2 back surgery in the past. Location: Dizziness Severity: Moderate Timing: Since Sunday morning Duration: Ongoing Modifying factors: None Associated signs and symptoms: Nausea and leaning to his left SAFE AND VAULT SERVICE MECHANIC Aspirin Dosinmg SAFE AND VAULT SERVICE MECHANIC Clopidogrel Dosing: none SAFE AND VAULT SERVICE MECHANIC statin Dosing: Crestor 20 mg SAFE AND VAULT SERVICE MECHANIC anticoagulation: None Patient is not a smoker Last known to be well (Last seen Normal): The evening of September 30 Patient is not a candidate for thrombolytic therapy. If not, reasoning against administration of tPA-out of window Patient is not a candidate for endovascular clot removal. If not, reasoning against endovascular therapy -no symptoms that would suggest LVO besides he is outside the window as well Past Medical History: Diagnosis Date ??? Diabetes mellitus ??? HTN (hypertension) ??? Hyperlipidemia ??? PUD (peptic ulcer disease) Social History Socioeconomic History ??? Marital status: [...] file Housing Stability: Not on file Allergies Allergen Reactions ??? Penicillins Hives Prior to Admission Medications: No current facility-administered medications on file prior to encounter. Current Outpatient Medications on File Prior to Encounter Medication Sig Dispense Refill ??? glipiZIDE (GLUCOTROL) 10 mg tablet Take 10 mg by mouth daily with breakfast. ??? metFORMIN (GLUCOPHAGE) 1,000 mg tablet Take 1,000 mg by mouth 2 times daily with meals. ??? rosuvastatin (CRESTOR) 20 mg tablet Take 20 mg by mouth daily. ??? cloNIDine HCL (CATAPRES) 0.1 mg tablet Take 0.1 mg by mouth 2 times daily. ??? pantoprazole (PROTONIX) 40 mg Tablet, Delayed Release (E.C.) Take 40 mg by mouth daily. ??? amLODIPine (NORVASC) 10 mg tablet Take 10 mg by mouth daily. ??? losartan-hydroCHLOROthiazide (HYZAAR) 100-12.5 mg tablet Take 1 Tablet by mouth daily. ??? carvediloL (COREG) 25 mg tablet Take 25 mg by mouth 2 times daily with meals. ??? cyclobenzaprine (FLEXERIL) 10 mg tablet Take 10 mg by mouth 2 times daily as needed for Spasm. ??? diclofenac sodium (VOLTAREN) 75 mg Tablet, Delayed Release (E.C.) Take 75 mg by mouth 2 times daily as needed. ??? meclizine 25 mg Tablet, Chewable Take 25 mg by mouth every 6 hours. ??? cephALEXin (KEFLEX) 500 mg capsule Take 500 mg by mouth 4 times daily. Active Hospital Medications: Current Facility-Administered Medications Medication Dose Route Frequency Provider Last Rate Last Admin ??? dextrose 5% - sodium chloride 0.9% infusion IV see admin instructions Jamie Garcia, DO ??? dextrose 50% (D50) syringe 12.5 Gram 12.5 Gram IV see admin instructions Jamie Garcia, DO ??? dextrose 50% (D50) syringe 25 Gram 25 Gram IV see admin instructions Jamie Garcia, DO ??? glucagon HCL 1 mg/mL injection 1 mg 1 mg IM see admin instructions Jamie Garcia, DO ??? insulin lispro (HumaLOG) injection 0-4 Units 0-4 Units subCUT TID WITH meals Jamie Garcia, DO ??? cloNIDine HCL (CATAPRES) tablet 0.1 mg 0.1 mg Oral BID Jamie Garcia, DO ??? sodium chloride flush injection 3 mL 3 mL IV BID Vaishali Wilson, COTTON BALL MACHINE TENDER 3 mL at 10/05/212319 ??? aspirin (RAKAN CHEWABLE) chewable tablet 81 mg 81 mg Oral daily WITH breakfast Vaishali Wilson, COTTON BALL MACHINE TENDER 81 mg at 10/06/21 0623 ??? [COMPLETED] clopidogreL (PLAVIX) tablet 300 mg 300 mg Oral ONE time only Vaishali Wilson, COTTON BALL MACHINE TENDER 300mg at 10/05/212034 ??? clopidogreL (PLAVIX) tablet 75 mg 75 mg Oral daily QasimiVaishali disla, COTTON BALL MACHINE TENDER ??? atorvastatin (LIPITOR) tablet 80 mg 80 mg Oral daily BEDTIME Vaishali Wilson, COTTON BALL MACHINE TENDER 80 mg at 10/05/212033 ??? [COMPLETED] iopamidoL (ISOVUE-300) 61% injection (drawn from multi-use bulk pack) 80 mL 80 mL IV intra-proc ONE time Nura Trent MD 80 mL at 10/05/211903 ??? [] sodium chloride flush injection 10 mL 10 mL IV see admin instructions Nura Trent MD 10 mL at 10/05/211903 ??? [COMPLETED] sodium chloride 0.9% bolus solution 50 mL 50 mL IV ONE time only Nura Trent MD Stopped at 10/05/211944 ??? METFORMIN CONSULT TO PHARMACY 1 Each See Admin Instructions see admin instructions Joey Barajas MD ??? amLODIPine (NORVASC) tablet 10 mg 10 mg Oral daily WITH supper Joey Barajas MD 10 mg at 10/05/212120 ??? [Held by Provider] carvediloL (COREG) tablet 25 mg 25 mg Oral BID WITH meals Jamie Garcia, DO ??? [Held by Provider] amLODIPine (NORVASC) tablet 10 mg 10 mg Oral daily Jamie Garcia, DO ??? [Held by Provider] losartan-hydroCHLOROthiazide (HYZAAR) 100-12.5 mg per tablet 1 Tablet 1 Tablet Oral daily Jamie Gracia, DO ??? cephALEXin (KEFLEX) capsule 500 mg 500 mg Oral QID Jamie Garcia, DO ??? pantoprazole (PROTONIX) tablet 40 mg 40 mg Oral daily Jamie Garcia, DO ??? [Held by Provider] diclofenac sodium (VOLTAREN) tablet 75 mg 75 mg Oral BID PRN Jamie Garcia, DO ??? cyclobenzaprine (FLEXERIL) tablet 10 mg 10 mg Oral BID PRN Jamie Garcia, DO ??? naloxone (NARCAN) 0.4 mg/mL injection 0.1 mg 0.1 mg IV see admin instructions Jamie Garcia, DO ??? acetaminophen (TYLENOL) tablet 650 mg 650 mg Oral every 6 hours PRN Jamie Gracia, DO ??? ondansetron (ZOFRAN ODT) tablet 4 mg 4 mg Oral every 6 hours PRN Jamie Garcia, DO ??? enoxaparin (LOVENOX) injection 70 mg 0.5 mg/kg subCUT every 24 hours Jamie Garcia DO 70 mg at 10/06/21 0624 ??? [DISCONTINUED] cloNIDine HCL (CATAPRES) tablet 0.1 mg 0.1 mg Oral TID Joey Barajas MD 0.1 mg at 10/05/212035 ??? [DISCONTINUED] metFORMIN (GLUCOPHAGE) tablet 1,000 mg 1,000 mg Oral BID WITH meals Joey Barajas MD ??? [DISCONTINUED] enoxaparin (LOVENOX) injection 40 mg 40 mg subCUT every 24 hours Jamie Garcia DO General Medical Examination: Vitals: BP (!) 150/80 (BP Location: Left arm, Patient Position (BP): Supine) Pulse 70 Temp 98.2 ??F (36.8 ??C) (Oral) Resp 18 Ht 6' (1.829 m) Wt 131.5 kg (290 lb) SpO2 99% BMI 39.33 kg/m?? Gen appearance: Awake, alert, cooperative and in no acute distress Eyes: No conjunctival injection. Anicteric sclerae. See neurologic exam below for pupillary examination. HENT: Atraumatic. See neurologic examination below for assessment of hearing. Neck: Trachea midline; grossly normal range of motion, no apparent thyromegaly or masses Cardiovascular: Regular rate and rhythm, no carotid bruits. Respiratory: Normal respiratory effort, non-labored breathing. Clear to auscultation bilaterally inanterior rowe. Musculoskeletal / Extremities: No cyanosis or clubbing in fingers or toes. See Neurologic examination for assessment of muscle strength. Psychiatric: Judgement and insight is appropriate. See neurologic examination for mental status exam. Neurologic: Mental status: Awake, alert. Correctly states name, age, location and current month. Speech is fluent. No evidence of aphasia, significant memory impairment or confusion per history and exam today Cranial nerves II-XII examined: Grossly intact including: pupils are unequal (R 3 mm and left 2.5 mm) but round and reactive to light, EOMI, Visual rowe full, hearing intact to conversation, face symmetric without ptosis or lid-lag or facial droop, speech is clear. Motor: Moves all extremities with mild focal weakness in RLE-complaints of pain due to cellulitis as well as lower back. No pronator drift. No drift in legs. Sensation: Patient reports coarse touch and pinprick decreased on the left forehead and the right leg. Coordination: Finger nose finger is intact bilaterally, with no significant ataxia or dysmetria present. Otherwise, movements are grossly coordinated, and no adventitious movements are seen. Reflexes: 2+ and symmetric in BUE, 1 in BLE. No pathologic reflexes noted. No Gunner or clonus. Bilateral toes are down. Laboratory Data: Results for orders placed or performed during the hospital encounter of 10/05/21 (from the past 24 hour(s)) CBC WITH DIFFERENTIAL Result Value Ref Range WBC 7.4 4.0 - 9.8 K/uL RBC 4.31 (L) 4.50 - 5.40 M/uL HEMOGLOBIN 14.6 13.6 - 16.5 g/dL HEMATOCRIT 43.1 40.0 - 48.0 % MCV 100.0 (H) 82.0 - 99.0 fL MCH 33.9 (H) 27.2 - 32.6 pg MCHC 33.9 31.5 - 35.5 g/dL RDW 12.5 11.5 - 14.5 % RDW-STDEV 46.8 37.1 - 48.7 fL PLATELETS 189 140 - 350 K/uL MPV 10.2 9.3 - 12.4 fL NEUTROPHILS 59 % LYMPHOCYTES 29 % MONOCYTES 9 % EOSINOPHILS 1 % BASOPHILS 1 % IMMATURE GRANULOCYTES 2 % NEUTROPHIL ABSOLUTE 4.34 1.90 - 7.00 K/uL LYMPHOCYTE ABSOLUTE 2.13 0.70 - 4.50 K/uL MONOCYTE ABSOLUTE 0.64 0.10 - 1.30 K/uL EOSINOPHIL ABSOLUTE 0.10 0.00 - 0.70 K/uL BASOPHILS ABSOLUTE 0.05 0.00 - 0.20 K/uL IMMATURE GRANULOCYTES ABSOLUTE 0.15 (H) 0.00 - 0.03 K/uL PROTIME-INR Result Value Ref Range PROTIME 14.4 12.7 - 15.1 Seconds INR 1.1 0.9 - 1.1 PTT Result Value Ref Range PTT 35.8 24.4 - 36.4 seconds COMPREHENSIVE METABOLIC PANEL Result Value Ref Range SODIUM 139 136 - 145 mmol/L POTASSIUM 4.1 3.5 - 5.0 mmol/L CHLORIDE 100 98 - 107 mmol/L CO2 27 22 - 29 mmol/L CALCIUM 10.4 (H) 8.6 - 10.2 mg/dL BUN 13 6 - 20 mg/dL CREATININE 0.72 0.67 - 1.17 mg/dL GLUCOSE 131 (H) 74 - 99 mg/dL TOTAL PROTEIN 8.1 6.7 - 8.6 g/dL ALBUMIN 4.4 3.5 - 5.2 g/dL BILIRUBIN TOTAL 0.9 0.3 - 1.2 mg/dL ALKALINE PHOSPHATASE 88 40 - 129 U/L AST 34 <41 U/L ALT 42 (H) <42 U/L GFR >60 >=60 mL/min/1.73 sq meter ANION GAP 12 8 - 16 mmol/L TSH Result Value Ref Range TSH 0.63 0.27 - 4.20 uIU/mL MAGNESIUM LEVEL Result Value Ref Range MAGNESIUM 1.7 1.6 - 2.6 mg/dL POC GLUCOSE Result Value Ref Range GLUCOSE POC 125 (H) 74 - 99 mg/dL SPECIMEN SOURCE, GLUCOSE POC Whole Blood LIPID PANEL Result Value Ref Range CHOLESTEROL 166 <200 mg/dL TRIGLYCERIDE 254 (H) <150 mg/dL HDL 30 (L) 40 - 59 mg/dL LDL CALCULATED 85 <100 mg/dL NON-HDL CHOLESTEROL 136 (H) <130 mg/dL HEMOGLOBIN A1C Result Value Ref Range HEMOGLOBIN A1C 7.1 (H) <5.7 % EST. AVG GLUCOSE, A1C 157 mg/dL CBC WITHOUT DIFFERENTIAL Result Value Ref Range WBC 8.0 4.0 - 9.8 K/uL RBC 4.24 (L) 4.50 - 5.40 M/uL HEMOGLOBIN 14.2 13.6 - 16.5 g/dL HEMATOCRIT 41.9 40.0 - 48.0 % MCV 98.8 82.0 - 99.0 fL MCH 33.5 (H) 27.2 - 32.6 pg MCHC 33.9 31.5 - 35.5 g/dL PLATELETS 178 140 - 350 K/uL MPV 10.0 9.3 - 12.4 fL RDW 12.7 11.5 - 14.5 % RDW-STDEV 46.5 37.1 - 48.7 fL BASIC METABOLIC PANEL Result Value Ref Range SODIUM 139 136 - 145 mmol/L POTASSIUM 3.9 3.5 - 5.0 mmol/L CHLORIDE 101 98 - 107 mmol/L CO2 25 22 - 29 mmol/L CALCIUM 9.8 8.6 - 10.2 mg/dL BUN 11 6 - 20 mg/dL CREATININE 0.72 0.67 - 1.17 mg/dL GLUCOSE 148 (H) 74 - 99 mg/dL GFR >60 >=60 mL/min/1.73 sq meter ANION GAP 13 8 - 16 mmol/L Imaging: Reviewed in [facility], Brain imaging personally reviewed; Other studies reviewed in EMR; Relevant stroke data CTA Head and Neck (10/05/2021): 1. Non-contrast head CT demonstrates no acute intracranial hemorrhage. Acute ischemic infarct in the left lateral medulla seen on the prior brain MRI is not visible by CT. 2. CTA of the neck demonstrates no acute abnormality. No high-grade ICA stenosis. 3. CTA of the head demonstrates no arterial occlusion or high grade stenosis. Moderate focal stenosis of the left P2 OCCUPATIONAL THERAPY CO DIRECTOR segment. MRI Brain without contrast was done in OSH (10/05/2021): Revealed acute left medullary infarction. 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 Given the location it is likely small vessel in nature, patient has multiple risk factors. CTA head andneck did not reveal any LVO or significant flow-limiting stenosis but revealed moderate focal stenosis of the left P2 segment, which is likely asymptomatic given the stroke is in left lateral medullaarea. Plan: Left medullary stroke Vitals and monitoring: - High frequency vital signs and neurochecks Without TPA - q4 hours x 24 hours - Continuous cardiac monitoring and telemetry Blood pressure management: -Place resume normotension given his symptoms has been going on since 30 September Imaging: -MRI brain without contrast completed -PRN head CT without contrast for neurologic decline Vascular study: -CTA head/neck completed Cardiac: -Transthoracic Echocardiogram (TTE) with PFO assessment -If echo revealed left atrium dilation, please discharge him on 30-day event monitor Labs: -Fasting Lipid panel for LDL is 85 -HgbA1C is 7.1 Antithrombotic: -Start Aspirin 81 mg (SAFE AND VAULT SERVICE MECHANIC aspirin 81 mg daily) - Load Plavix 300 mg on 10/05/2021 -Starting 10/06/2021, continue aspirin 81 mg and Plavix 75 mg daily for 3 weeks then continue with Plavix 75 mg daily, discontinue aspirin. Statin: -Start Lipitor 80 mg and target LDL < 70 (once discharged from here, okay to resume his rosuvastatin but please increase the dose to 40 mg) Therapy: -PT/OT/ST evaluation and -Ensure bedside dysphagia screen is completed -Assess for IP rehab needs Advised optimal risk factor control Recommend start using his CPAP machine soon as possible Encouraged reducing or abstinence from alcoholic beverage Neurology post-hospital follow up plan: Referral sent outpatient neurology. Plan of care discussed with Dr. Smith Please note, if you have a question about this patient from 7 AM to 7 PM, please Secure chat the author of this note. If it is 7 PM to 7 AM, please page the Neurology consult pager at [phone]. Author: Vaishali Wilson NP as of: 10/06/2021 This note was generated with [employer] voice recognition software and may contain department helper errors. TS ANALYST Associated attestation - Vanessa Smith MD - 10/06/2021 5:38 PM SPORTS ANALYST Stroke/Neurology Attending Attestation Patient seen and examined with the Nurse Practitioner on 10/06/2021. I have reviewed the note as dictated and agree with the assessment and plan, as dictated, with the exceptions, if any, noted below. Brief HPI/Interval History: 56 y.o. male with history of HTN, HLD, DM, NATALY (not yet started on CPAP) who presents with dizziness and gait unsteadiness (veering to L) since 4 days ago. Outpatient MRI showed acute L lateral medullary stroke. Patient denies any new symptoms. He reports his sleep doctor's office told him that his AHI was 52 on his recent sleep study. EXAM: Gen appearance: Awake, alert, cooperative and in no acute distress Eyes: No conjunctival injection, anicteric. HENT: Atraumatic Neck: Trachea midline, Cardiovascular: Regular rate and rhythm on tele monitor. Respiratory: Normal respiratory effort, non-labored breathing Musculoskeletal / Extremities: No cyanosis or edema. Skin: no overt rash Psychiatric: affect is appropriate. Mental status: AAOx4, fluent language, follows simple commands CN: PERRL, VFF, EOMI, slower activation of left lower face upon smile, sensation intact in V1-V3 bilaterally to light touch, no dysarthria Motor: strength 5/5 throughout Sensory:- intact to light touch throughout Coordination: LUE ataxia Gait - mild wide based gait with, but steady with walker Labs/Images: personally reviewed and discussed as in note below or herein this attestation. LDL 85,A1c 7.0 Brain MRI- L lateral medullary acute stroke CTA- L P2 moderate stenosis TTE- normal EF, normal LA, mod-severe aortic stenosis, no PFO Impression and plan: #Acute L medullary stroke --suspect small vessel etiology -- loaded w/plavix 300mg, DAP with ASA 81mg/Plavix 75mg for 3 weeks , followed by plavix 75mg monotherapy -- L P2 moderate stenosis on CTA unrelated to stroke, does not require any BP adjustment -medical management with statin/ASA/plavix -- BP target- normotension -- MRI done, in visage, LDL, A1c, TTE as above, recommended working with PCP to continue optimizingHLD/A1c -- on rosuvastatin 20mg at baseline; transitioned to Atorvastatin 80mg here; on d/c continue Atorvastatin 80mg or rosuvastatin 40 mg for target LDL <70 --Stroke work-up complete, okay for discharge to disposition per PT/OT #Newly Dx severe NATALY -- CPAP titration study done at OSH -- encouraged patient to start with CPAP following discharge and encouraged compliance Vanessa Smith MD as of: 10/06/2021 at: 5:28 PM This note was generated with [employer] voice recognition software and may contain department helper errors. * Lyla Casper DO - 10/06/2021 6:19 AM CST [facility] Resident Progress Note Patient Name: Taylor De Jesus Attending Physician: Jesús Delgado MD Primary Care Provider: No primary care provider on file. Date of Admission: 10/05/2021 Date of Service: 10/06/2021 Length of Stay: LOS: 1 day Previous history of present illness and review of systems have been reviewed today as documented inthe H&P on 10/05/2021; medications, labs, studies, notes, orders and consults have been reviewed.I have reviewed the notes from admission. Taylor De Jesus is a 56 y.o. male with Hx of HTN, HLD, DMII, mild CAD per outside record, OSAwaiting for CPAP presents for recent onset of dizziness and MRI positive stroke. Patient first started experiencing the symptoms on October 01 morning. He reported that had a few drinks on Sunday night and at first thought he was due to the alcohol. However, Sunday all day he slept and every time when patient tried a standard, he will leading him falling to his left. Patient went to urgent care on [place] and had CT scan did not show any acute changes. He was discharged with meclizine and Zofran for vertigo symptoms. He came back home and checked in with primary care provider who sent patient to PT. After be evaluated by physical therapy, his symptoms was identified as more central than peripheral. PT recommended patient to spoke to his primary care doctor. Primary care provider ordered MRI brain which revealed left medullary stroke. Patient came to [facility] ED, neurology was consulted and saw patient. ?? In the ED, patient was loaded with Plavix 300 mg, CTA head and neck did not show any acute changes.Patient will be admitted to the hospital for further work-up. Assessment and Plan: Active Problems: Acute Left medullary stroke Dizziness and unsteady, leftward gait since 10/01; Outpatient MRI confirmed left medullary stroke. CTA head/neck showed no cerebral or ICA stenosis or occlusion. LDL 85, TG 254. A1C 7.1%. Thyroid function stable. No signs of infection. - Neurology following - suspect small vessel etiology - One-time loading dose Plavix 300 mg given on admission - Goal of normotension - Continue ASA/Plavix x3 weeks (through 10/26), followed by Plavix monotherapy - High intensity statin- Lipitor 80 mg vs Crestor 50 mg - TTE scheduled today - PT/OT/DIRECTOR COUNCIL ON AGING following - 30-day cardiac event monitor at D/C if LA enlargement noted on TTE ?? RLE cellulitis RLE injury due to fall with development of vertigo symptoms last weekend. Was an incidental findingon PCP visit 10/04. Appears well-healing, with no obvious open wound or active infection. - Continue Keflex 500mg QID - stop date unclear ?? HTN Home regimen of coreg 25 mg BID, amlodipine 10 mg, clonidine 0.1 mg BID, Losartan-Percocet 100-12.5mg daily. - Goal normotension per neurology - Continued on clonidine 0.1mg BID to avoid rebound tachycardia - Remainder of SAFE AND VAULT SERVICE MECHANIC meds on hold, will reinstate as BP allows - Recommend outpatient work-up for secondary HTN Type II DM Home regimen of metformin 1,000 mg BID, glipizide 10 mg daily. A1c 7.1% with hyperglycemia. - Holding SAFE AND VAULT SERVICE MECHANIC orals - ACHS glucose checks - Started on low-dose SSI, will titrate up as needed HLD On rosuvastatin 20 mg at home. - Increase statin intensity - Currently on Lipitor 80 mg - D/C home on Lipitor 80 mg vs Crestor 50 mg ?? NATALY - CPAP nightly ?? Nutrition: Current Diet and/or Nutritional Supplementation ordered: DIET DIABETIC Chronic/Stable/Resolved Problems: Mild CAD TTE 02/01/2021 revealed mild/moderate LVH and aortic stenosis, LVEF 63%. [facility] November 2017 demonstrated normal LAD, mild RCA luminary irregularities and mild circumflex disease. - On SAFE AND VAULT SERVICE MECHANIC carvedilol 25 mg BID ?? Aortic stenosis Mild/moderate disease with LVH noted on prior January 2021. - Resume carvedilol as BP tolerates Hx of bleeding gastric ulcer Previously required hospital admission, however appears stable currently - Continue Protonix 40 mg daily - Monitor for signs of recurrent bleed Chronic back pain S/p prior lumbar laminectomy, unknown level. - Continue flexeril 10mg BID prn Quality/Safety/Core Measures/Disposition Planning: DVT PRX:Heparin Indwelling Lines/Devices: Peripheral IV Hendrickson: absent; reason: N/A Patient's activity prior to admission: independent Patient lives with their spouse in a single family home PT and OT: Yes PT POC OT POC Code Status: Full Code Current Planned Disposition - Pending PT OT recs which I anticipate will be completed 2-3 days Subjective/Events Overnight No acute events. Patient reports still feeling dizzy with positional change, no nausea, vomiting, headache, visual changes. No chest pain, shortness of breath or cough. He is eating and drinking well. No further complaints. Objective BP (!) 150/80 (BP Location: Left arm, Patient Position (BP): Supine) Pulse 70 Temp 98.2 ??F (36.8 ??C) (Oral) Resp 18 Ht 6' (1.829 m) Wt 131.5 kg (290 lb) SpO2 99% BMI 39.33 kg/m?? Temp(24hrs), Av.1 ??F (36.7 ??C), Min:97.7 ??F (36.5 ??C), Max:98.3 ??F (36.8 ??C) Physical Exam: General: Alert, oriented, well appearing. HEENT: PERRLA. No nystagmus. Neck supple. Oropharynx moist. CV: RRR. No murmur, rub or gallop. Pulses present and equal bilaterally. Pulm: Lungs CTAB. No wheeze or rhonchi. Breathing unlabored. Abd: Protuberant but soft, NT, ND. No rebound or guarding. BS normal. MSK: ROM normal. No LE edema. RLE w/o warmth or erythema. No obvious open wound or active infection. Skin: Warm and dry. No jaundice, pallor or erythema. Neuro: Mentation at baseline. CNII-XII intact. No focal neuro deficit. Psych: Mood, affect, behavior normal. Data: I have reviewed all new labs and studies resulted and pertinent ones are noted below CBC: Recent Labs 10/05/21 1750 10/06/21 0516 WBC 7.4 8.0 HGB 14.6 14.2 HCT 43.1 41.9 PLT 189 178 MCV 100.0* 98.8 BMP: Recent Labs 10/05/21 1750 10/06/21 0516 NA 139 139 K 4.1 3.9 CL 100 101 CO2 27 25 ANIONGAP 12 13 CA 10.4* 9.8 GLUCOSE 131* 148* BUN 13 11 CREAT 0.72 0.72 Lyla Casper DO 10/06/2021 6:19 AM I discussed the assessment of plan for the above patient with Dr. Collins, Ina Cook, * This note may have been transcribed using Amiigo speaking computerized voice recognition without a human floatlight powder mixer. This report may or may not have been adjusted for typographical, grammatical and syntax errors. This patient is covered by internal medicine residents To reach Internal Medicine covered patients: Sunday-Sunday 7 AM- 7 PM: Please contact the resident via secure chat. The resident responsible for the patient will be on the Treatment Team listed as Resident If no response you may call the director information digital marketing intern at zone phone [phone]. If no response you may call the director information senior resident at zone phone [phone] If no response please contact the attending of record via secure chat. 7 PM to 7 AM: The long call/night float resident should be listed as Resident on the treatment team and can be reached via secure chat. If no response you may call the director information digital marketing intern at zone phone [phone]. If no response you may call the director information senior resident at zone phone [phone] If no response please contact the Rapid Access Hospitalist via secure chat Sunday and Sunday: 7 AM-12 PM: Please contact the resident via secure chat. The resident responsible for the patient will be on the Treatment Team listed as Resident 12 PM-7 AM: The long call/night float resident should be listed as Resident on the treatment teamand can be reached via secure chat. If no response call the director information digital marketing intern at zone phone [phone]. If no response you may call the director information senior resident at zone phone [phone] If no response please contact the Rapid Access Hospitalist via secure chat TS ANALYST Associated attestation - Ina Collins MD - 10/07/2021 12:57 PM SPORTS ANALYST [facility] Adult Hospitalist Attending Note I reviewed the medical record including the resident???s note (available as hyperlink below). I waspresent with the resident and participated during the history and physical examination of the patient on 10/06/2021. The laboratory findings and assessment and plan was reviewed with the resident. I also performed the critical or ma portion(s) of the service as documented below, and was directly involved in the management of the patient and supervised the care provided. Feeling fine today, no cp, no sob, no HERNADEZ, no changes in vision. I have reviewed the physical exam findings in the resident???s note; my notable physical exam findings include: Alert, no distress Heart rrr Lungs ctabl Abdomen soft and NT No pitting edema I have reviewed the labs that were obtained over the last 24 hours. Notable amendments to the assessment and plan include: Patient Active Problem List Diagnosis Code Acute stroke due to ischemia I63.9 Type 2 diabetes mellitus with other specified complication E11.69 Vertigo of central origin H81.4 Hyperlipidemia E78.5 Essential hypertension I10 No distress. Waiting on ECHO today. Per Neuro ok to aim for SBP <140, will re- introduce carvedilol tonight as well as his clonidine and amlodipine. Likely dc tomorrow. If atrial enlargement will need holter, if not will not. See resident note for additional details. Ina Collins MD Department of Internal Medicine Approximately 25 minutes was spent in the care of this patient today; more than 50% was spent in counseling and coordination of care (patient/family conference, nursing conference and/or discussion with consultants). This patient is covered by internal medicine residents; per ACGME guidelines residents must write orders for patients under their care, with appropriate supervision by the attending physician . Please contact the attending physician on covered patients only if you are unable to reach the resident,or if you have an emergency. To reach Internal Medicine covered patients: Sunday-Sunday 7 AM- 7 PM: Please contact the resident via secure chat. The resident responsible for the patient will be on the Treatment Team listed as Resident If no response you may call the director information digital marketing intern at zone phone [phone]. If no response you may call the director information senior resident at zone phone [phone] If no response please contact the attending of record via secure chat. 7 PM to 7 AM: The long call/night float resident should be listed as Resident on the treatment team and can be reached via secure chat. If no response you may call the director information digital marketing intern at zone phone [phone]. If no response you may call the director information senior resident at zone phone [phone] Sunday and Sunday: 7 AM-12 PM: Please contact the resident via secure chat. The resident responsible for the patient will be on the Treatment Team listed as Resident 12 PM-7 AM: The long call/night float resident should be listed as Resident on the treatment teamand can be reached via secure chat. If no response call the director information digital marketing intern at zone phone [phone]. If no response you may call the director information senior resident at zone phone [phone] If no response please contact the Rapid Access Hospitalist via secure chat. * Narciso Pratt GN - 10/06/2021 5:48 AM CST Pt alert x 4. Pt had no complaints of pain. Pt sleeping in between care. Will continue to monitor. Call light in reach. Pt on room air. TS ANALYST * Gerard Scales MD - 10/05/2021 7:48 PM CST [facility] Teleneurology Night Coverage Call Two patient identifier: Taylor De Jesus 1965 Pager call received: 7:38 PM Teleneuro responded: phone time-7:40 PM Current patient location: ER bed 1 Called for: Recommendations about blood pressure monitoring, discussed CTA results Last Recorded Vitals: BP (!) 185/82 Pulse 67 Temp 97.7 ??F (36.5 ??C) (Oral) Resp 18 SpO2 98% Documentation/Intervention/Outcome: Chart reviewed. Taylor De Jesus is a 56 y.o. male with history of hypertension, hyperlipidemia, diabetes, sleep apnea who had onset of dizziness, balance problem and headache while he was in [place] on 09/30/2021, went to ER and CT head was done which was normal. Patient was discharged home, again had continued symptoms for which he saw urgent care on 10/04/2021, was discharged home again. 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 Patient came to emergency for further evaluation,was seen by neurology team and was recommended admission, antiplatelet, Plavix during the milligrams load. Plan: -As mentioned in the recommendations, normotensive blood pressure goal, left P2 stenosis does not clearly explain the stroke. Gradually lower the blood pressure, continue blood pressure medications as per home dose. -Further stroke work-up labs, echocardiogram as per recommendations by neurology earlier. -Continue dual antiplatelets, change home Crestor to atorvastatin now. Last Known Well: On 09/30/2021 Patient is not a candidate for thrombolytic therapy. Treatment decision time: 7:40 PM. If not, reasoning against administration of tPA-onset more than 24 hours ago. Patient is not a candidate for endovascular clot removal. If not, reasoning against endovascular therapy-onset more than 24 hours ago. Please page the general Neurology Storekeeper Helper Consult pager: for further assistance if needed. Gerard Scales MD 10/05/2021 7:49 PM TS ANALYST documented in this encounter H&P Notes * Jamie Garcia, - 10/05/2021 7:31 PM CST Images from the original note were not included. [facility] Internal Medicine Teaching Service History & Physical Patient Name: Taylor De Jesus Attending Physician: Jesús Delgado MD Primary Care Provider: No primary care provider on file. Date of Admission: 10/05/2021 Date of Service: 10/06/2021 Chief Complaint: acute L medullary stroke HPI: Taylor De Jesus is a 56 y.o. male with Hx of HTN, HLD, DMII, mild CAD per outside record, NATALY waiting for CPAP presents for recent onset of dizziness and MRI positive stroke. Patient firststarted experiencing the symptoms on October 01 morning. He reported that had a few drinks on Sunday night and at first thought he was due to the alcohol. However, Sunday all day he slept and every time when patient tried a standard, he will leading him falling to his left. Patient went to urgent care on [place] and had CT scan did not show any acute changes. He was discharged with paige Reyes for vertigo symptoms. He came back home and checked in with primary care provider who sent patient to PT. After be evaluated by physical therapy, his symptoms was identified as more central than peripheral. PT recommended patient to spoke to his primary care doctor. Primary care providerordered MRI brain which revealed left medullary stroke. Patient came to [facility] ED, neurology was consulted and saw patient. In the ED, patient was loaded with Plavix 300 mg, CTA head and neck did not show any acute changes.Patient will be admitted to the hospital for further work-up. Past Medical History: Past Medical History: Diagnosis Date ??? Diabetes mellitus ??? HTN (hypertension) ??? Hyperlipidemia ??? PUD (peptic ulcer disease) Past Surgical History: Past Surgical History: Procedure Laterality Date ??? HX APPENDECTOMY ??? HX LUMBAR LAMINECTOMY Left Prior to Admission Medications: Prior to Admission Medications Prescriptions Last Dose Informant Patient Reported? Taking? amLODIPine-atorvastatin 10-10 mg tablet Yes Yes Sig: Take 1 Tablet by mouth daily. cloNIDine HCL (CATAPRES) 0.1 mg tablet Yes Yes Sig: Take 0.1 mg by mouth 3 times daily. glipiZIDE (GLUCOTROL) 10 mg tablet Yes Yes Sig: Take 10 mg by mouth daily with breakfast. hydroCHLOROthiazide (MICROZIDE) 12.5 mg capsule Yes Yes Sig: Take 12.5 mg by mouth daily. metFORMIN (GLUCOPHAGE) 1,000 mg tablet Yes Yes Sig: Take 1,000 mg by mouth 2 times daily with meals. pantoprazole (PROTONIX) 40 mg Tablet, Delayed Release (E.C.) Yes Yes Sig: Take 40 mg by mouth daily. rosuvastatin (CRESTOR) 20 mg tablet Yes Yes Sig: Take 20 mg by mouth daily. Facility-Administered Medications: None Allergies: Allergies Allergen Reactions ??? Penicillins Hives Family History: family history includes Cancer in his father; Diabetes in his brother, brother, and mother; No Known Problems in his daughter and sister; Stroke in his mother. Review family history to make sure family history is asked and completed Social History: reports that he has never smoked. He does not have any smokeless tobacco history on file. He reports current alcohol use of about 5.0 standard drinks of alcohol per week. He reports previous drug use. Review of Systems: Review of Systems Constitutional: Negative for chills and fever. HENT: Negative for congestion. Eyes: Negative for pain. Respiratory: Negative for shortness of breath. Cardiovascular: Negative for chest pain. Gastrointestinal: Negative for abdominal pain. Genitourinary: Negative for dysuria. Musculoskeletal: Positive for back pain. Negative for neck pain. Skin: Positive for rash. Neurological: Positive for dizziness and headaches. Negative for loss of consciousness. Psychiatric/Behavioral: Negative for hallucinations and substance abuse. Objective: Body mass index is 39.33 kg/m??. BP (!) 145/75 (BP Location: Left arm, Patient Position (BP): Supine) Pulse 70 Temp 98 ??F (36.7??C) (Oral) Resp 20 Ht 6' (1.829 m) Wt 131.5 kg (290 lb) SpO2 99% BMI 39.33 kg/m?? , Temp(24hrs), Av ??F (36.7 ??C), Min:97.7 ??F (36.5 ??C), Max:98.3 ??F (36.8 ??C) Physical Exam Constitutional: General: He is not in acute distress. HENT: Head: Normocephalic and atraumatic. Mouth/Throat: Mouth: Mucous membranes are moist. Pharynx: Oropharynx is clear. Eyes: Extraocular Movements: Extraocular movements intact. Pupils: Pupils are equal, round, and reactive to light. Cardiovascular: Rate and Rhythm: Normal rate and regular rhythm. Pulmonary: Effort: Pulmonary effort is normal. Breath sounds: Normal breath sounds. Abdominal: General: Bowel sounds are normal. Palpations: Abdomen is soft. Musculoskeletal: General: Swelling and tenderness present. Cervical back: Normal range of motion and neck supple. Right lower le+ Edema present. Comments: Erythema of the right lower leg, warm and tender to touch compared to the left leg. A minor scar on the lateral side Skin: General: Skin is warm. Neurological: Mental Status: He is alert and oriented to person, place, and time. Sensory: Sensation is intact. Motor: No weakness. Psychiatric: Mood and Affect: Mood normal. Date Base: CBC: Recent Labs 10/05/21 1750 WBC 7.4 HGB 14.6 HCT 43.1 PLT 189 MCV 100.0* Recent Labs 10/05/21 1750 NA 139 K 4.1 CL 100 CO2 27 ANIONGAP 12 CA 10.4* GLUCOSE 131* BUN 13 CREAT 0.72 Results for orders placed or performed during the hospital encounter of 10/05/21 (from the past 24 hour(s)) CBC WITH DIFFERENTIAL Result Value Ref Range WBC 7.4 4.0 - 9.8 K/uL RBC 4.31 (L) 4.50 - 5.40 M/uL HEMOGLOBIN 14.6 13.6 - 16.5 g/dL HEMATOCRIT 43.1 40.0 - 48.0 % MCV 100.0 (H) 82.0 - 99.0 fL MCH 33.9 (H) 27.2 - 32.6 pg MCHC 33.9 31.5 - 35.5 g/dL RDW 12.5 11.5 - 14.5 % RDW-STDEV 46.8 37.1 - 48.7 fL PLATELETS 189 140 - 350 K/uL MPV 10.2 9.3 - 12.4 fL NEUTROPHILS 59 % LYMPHOCYTES 29 % MONOCYTES 9 % EOSINOPHILS 1 % BASOPHILS 1 % IMMATURE GRANULOCYTES 2 % NEUTROPHIL ABSOLUTE 4.34 1.90 - 7.00 K/uL LYMPHOCYTE ABSOLUTE 2.13 0.70 - 4.50 K/uL MONOCYTE ABSOLUTE 0.64 0.10 - 1.30 K/uL EOSINOPHIL ABSOLUTE 0.10 0.00 - 0.70 K/uL BASOPHILS ABSOLUTE 0.05 0.00 - 0.20 K/uL IMMATURE GRANULOCYTES ABSOLUTE 0.15 (H) 0.00 - 0.03 K/uL PROTIME-INR Result Value Ref Range PROTIME 14.4 12.7 - 15.1 Seconds INR 1.1 0.9 - 1.1 PTT Result Value Ref Range PTT 35.8 24.4 - 36.4 seconds COMPREHENSIVE METABOLIC PANEL Result Value Ref Range SODIUM 139 136 - 145 mmol/L POTASSIUM 4.1 3.5 - 5.0 mmol/L CHLORIDE 100 98 - 107 mmol/L CO2 27 22 - 29 mmol/L CALCIUM 10.4 (H) 8.6 - 10.2 mg/dL BUN 13 6 - 20 mg/dL CREATININE 0.72 0.67 - 1.17 mg/dL GLUCOSE 131 (H) 74 - 99 mg/dL TOTAL PROTEIN 8.1 6.7 - 8.6 g/dL ALBUMIN 4.4 3.5 - 5.2 g/dL BILIRUBIN TOTAL 0.9 0.3 - 1.2 mg/dL ALKALINE PHOSPHATASE 88 40 - 129 U/L AST 34 <41 U/L ALT 42 (H) <42 U/L GFR >60 >=60 mL/min/1.73 sq meter ANION GAP 12 8 - 16 mmol/L TSH Result Value Ref Range TSH 0.63 0.27 - 4.20 uIU/mL MAGNESIUM LEVEL Result Value Ref Range MAGNESIUM 1.7 1.6 - 2.6 mg/dL POC GLUCOSE Result Value Ref Range GLUCOSE POC 125 (H) 74 - 99 mg/dL SPECIMEN SOURCE, GLUCOSE POC Whole Blood Assessment and Plan: Acute Left medullary stroke Dizziness and unsteady gait since 10/01; leaning towards left which corresponded to the medullary lesion on the left side Neurology consulted in ED, appreciate recs -suspect small vessel etiology -load Plavix 300mg, ASA/Plavix for 3 weeks starting 10/06 -CTA head and neck showed no acute changes in ICA or brain arterial occlusion -LDL, A1C, TTE pending -PT/OT/ST -increase rosuvastatin 20mg [employer] to atorva 80mg inpatient and increase to home rosuvastatin 40mg on DC RLE cellulitis Has prior hx of cellulitis after minor skin wound Incidental findings on PCP visit 10/04; prescribed keflex 500mg QID -Cont [employer]IC Keflex 500mg QID HTN Home regimen coreg 25 mg oral twice daily amlodipine 10 mg daily, losartan- Percocet 100-12.5 mg once daily, and clonidine 0.1mg BID Plan: -will start permissive hypertension s/p stroke -defer further BP management to neurology and day team -cont [employer]IC clonidine 0.1mg BID -on multiple BP medication for blood pressure control as an outpatient, likely will need secondary HTN eval as an OP HLD On rosuvastatin 20 mg at home. -Start Lipitor 80 mg as an inpatient -will Discharge on rosuvastatin 40 mg DM type II On metformin 1000mg BID and glipizide 10mg daily -start hypoerglycemia pathway -on LDSSI and will titrate dose pending POC glucose trend -ED ordered metformin consult to pharmacy, pending pharmacy rec NATALY CPAP titration study done at OSH -start CPAP auto-titrate inpatient Hx of mild CAD last echocardiogram on 02/01/2021 revealed an LVEF of 63% with mild to moderate LVH, mild to moderate aortic stenosis with a peak gradient of 30 mmHg and mean gradient of 18 mmHg. His last cardiac catheterization in November 2017 demonstrated a normal LAD, mild luminary irregularities of the RCA, and mild disease of the circumflex -On [employer]IC carvedilol 25mg BID Hx of lumbar laminectomy of unknown level Has chronic back pain and on cyclobenzaprine and Voltaren at home Plan: -cont [employer]IC flexeril 10mg BID prn Hx of bleeding gastric ulcer-required hospital admission -cont S[employer] MECH[employer]IC protonix 40mg daily DVT PRX:Heparin Indwelling Lines/Devices: Peripheral IV Hendrickson: absent; reason: N/A Patient's activity prior to admission: independent Patient lives with their spouse in a single family home PT and OT: Yes Diet: Diabetic Nutritional Supplementation: N/A Code Status: Full Code Current Planned Disposition - pending Clinical course which I anticipate will be completed pending clinical course I discussed the assessment of plan for the above patient with MD Jamie Pennington, DO 10/06/2021 5:27 AM. Plan discussed with the patient, questions answered; patient agrees with current plan. More than 70 minutes were spent in the care of this patient today General Admit to Med Surg and Stroke pathway initiated This note may have been transcribed using Amiigo speaking computerized voice recognition without a human floatlight powder mixer. This report may or may not have been adjusted for typographical, grammatical and syntax errors. This patient is covered by Internal Medicine residents To reach Internal Medicine covered patients: Sunday-Sunday 7 AM- 7 PM: Please contact the resident via secure chat. The resident responsible for the patient will be on the Treatment Team listed as Resident If no response you may call the director information digital marketing intern at zone phone [phone]. If no response you may call the director information senior resident at zone phone [phone] If no response please contact the attending of record via secure chat. 7 PM to 7 AM: The long call/night float resident should be listed as Resident on the treatment team and can be reached via secure chat. If no response you may call the director information digital marketing intern at zone phone [phone]. If no response you may call the director information senior resident at zone phone [phone] If no response please contact the Rapid Access Hospitalist via secure chat Sunday and Sunday: 7 AM-12 PM: Please contact the resident via secure chat. The resident responsible for the patient will be on the Treatment Team listed as Resident 12 PM-7 AM: The long call/night float resident should be listed as Resident on the treatment teamand can be reached via secure chat. If no response call the director information digital marketing intern at zone phone [phone]. If no response you may call the director information senior resident at zone phone [phone] If no response please contact the Rapid Access Hospitalist via secure chat TS ANALYST Associated attestation - Jesús Delgado MD - 10/06/2021 7:03 AM SPORTS ANALYST [facility] Hospitalist Attending Note Patient seen and examined with the resident team (Dr. Garcia) on 10/05/2021. I have reviewed the note as dictated and agree with the assessment and plan, as dictated, with the exceptions, if any, noted below. Date of service: 10/05/2020 The patient is a 56yoM with a PMH of DM, HTN, HPL, CAD, NATALY who presents to the ED with dizziness and leaning towards the right side. The patient reports that he's been having the sensation of leaning to the right for several days and it started while he was in [place] for a vacation. Eventually the patient went home and his PCP directed him to go to urgent care. At urgent care, the patient was found to have a medullary infarct. Physical Exam: Patient Vitals for the past 8 hrs: BP Temp Temp src Pulse Resp SpO2 Height Weight 10/06/21 0550 (!) 150/80 98.2 ??F (36.8 ??C) Oral 70 18 99 % -- -- 10/06/21 0029 (!) 145/75 98 ??F (36.7 ??C) Oral 70 20 99 % -- -- 10/05/21 2313 -- -- -- -- -- -- 6' (1.829 m) 131.5 kg (290 lb) General: Somnolent, oriented, no distress, cooperative with examination HENT: NC/AT, throat clear with tongue and uvula midline Eyes: Normal appearing conjunctiva bilaterally, sclera non-icteric Neck: Supple neck, trachea is midline, no thyroid tenderness is noted. Heart: Regular rate/rhythm, no obvious murmur. Lungs: Symmetric chest expansions, grossly clear. Abdomen: Soft, non-tender, non-distended and bowel sounds present. Extremities: No clubbing, cyanosis or edema present bilaterally Neuro: CN2-12 grossly intact. Sensation intact to light touch throughout bilateral UE/LE - MS: Somnolent, follows commands, answers questions without aphasia Psych: Calm and appropriate with normal affect. No delusions. Assessment and Plan: Acute CVA - Patient presents to the ED with ataxia with leaning towards the left. Found to have a medullary infarct on the days too late for TPA. Unclear source. Embolic? - Stroke pathway Jesús Delgado MD documented in this encounter Consult Notes * Vaishali Wilson NP - 10/05/2021 5:35 PM CST Stroke/Neurology Service New Patient Consultation Note Chief Complaint/History of Present Illness: Taylor De Jesus is a 56 y.o. male with known medical history of hypertension, hyperlipidemia, diabetes,obstructive sleep apnea waiting on his CPAP, and overweight, who presented to emergency room with dizziness and MRI positive stroke. Patient states that he was on a vacation down in [place]. He had a few drinks Sunday night and Sunday morning he felt really dizzy. He thought it was due to drinking he slept all day every time when he tries to get up he is leaning to his left. Sunday he went to urgent care where his head CT did not show anything acute thus he was discharged with meclizine and Zofran. When he saw his primary doctor yesterday who sent her to physical therapist. However physical therapist thought his symptoms more related to central issue than peripheral thus recommended going back to his primary doctor. His primary doctor ordered MRI brain which revealed left medullary stroke, for which we were consulted to further assist with evaluation and management. Patient has not checked his blood pressure but takes her blood pressure medication daily. Takes a baby aspirin daily. He does not smoke. Patient drinks 5-6 beer 3-4 nights a week. Patient was diagnosed with obstructive sleep apnea and waiting on his CPAP machine currently. Patient's mother had a stroke twice, the first 1 in her 40s, etiology unclear she was a heavy smoker per family. Patient alsocomplains of pain in her ears right leg states that he was diagnosed with cellulitis. He also has pain in his bilateral lower extremities due to lower back. He has had 2 back surgery in the past. Location: Dizziness Severity: Moderate Timing: Since Sunday morning Duration: Ongoing Modifying factors: None Associated signs and symptoms: Nausea and leaning to his left [employer]IC Aspirin Dosinmg [employer]IC Clopidogrel Dosing: none [employer]IC statin Dosing: Crestor 20 mg [employer]IC anticoagulation: None Patient is not a smoker Last known to be well (Last seen Normal): The evening of September 30 Patient is not a candidate for thrombolytic therapy. If not, reasoning against administration of tPA-out of window Patient is not a candidate for endovascular clot removal. If not, reasoning against endovascular therapy -no symptoms that would suggest LVO besides he is outside the window as well Past Medical History: Diagnosis Date ??? Diabetes mellitus ??? HTN (hypertension) ??? Hyperlipidemia Social History Socioeconomic History ??? Marital status: Not on file Spouse name: Not on file ??? Number of children: Not on file ??? Years of education: Not on file ??? Highest education level: Not on file Occupational History ??? Not on file Tobacco Use ??? Smoking status: Never Smoker ??? Smokeless tobacco: Not on file Substance and Sexual Activity ??? Alcohol use: Not on file Comment: social ??? Drug use: Not on file ??? Sexual activity: Not on file Other Topics Concern ??? Not on file Social History Narrative ??? Not on file Social Determinants of Health Financial Resource Strain: Not on file Food Insecurity: Not on file Transportation Needs: Not on file Physical Activity: Not on file Stress: Not on file Social Connections: Not on file Intimate Partner Violence: Not on file Housing Stability: Not on file Allergies Allergen Reactions ??? Penicillins Hives Prior to Admission Medications: No current facility-administered medications on file prior to encounter. Current Outpatient Medications on File Prior to Encounter Medication Sig Dispense Refill ??? hydroCHLOROthiazide (MICROZIDE) 12.5 mg capsule Take 12.5 mg by mouth daily. ??? glipiZIDE (GLUCOTROL) 10 mg tablet Take 10 mg by mouth daily with breakfast. ??? metFORMIN (GLUCOPHAGE) 1,000 mg tablet Take 1,000 mg by mouth 2 times daily with meals. ??? amLODIPine-atorvastatin 10-10 mg tablet Take 1 Tablet by mouth daily. ??? rosuvastatin (CRESTOR) 20 mg tablet Take 20 mg by mouth daily. ??? cloNIDine HCL (CATAPRES) 0.1 mg tablet Take 0.1 mg by mouth 3 times daily. ??? pantoprazole (PROTONIX) 40 mg Tablet, Delayed Release (E.C.) Take 40 mg by mouth daily. Active Hospital Medications: No current facility-administered medications for this encounter. Current Outpatient Medications Medication Sig Dispense Refill ??? hydroCHLOROthiazide (MICROZIDE) 12.5 mg capsule Take 12.5 mg by mouth daily. ??? glipiZIDE (GLUCOTROL) 10 mg tablet Take 10 mg by mouth daily with breakfast. ??? metFORMIN (GLUCOPHAGE) 1,000 mg tablet Take 1,000 mg by mouth 2 times daily with meals. ??? amLODIPine-atorvastatin 10-10 mg tablet Take 1 Tablet by mouth daily. ??? rosuvastatin (CRESTOR) 20 mg tablet Take 20 mg by mouth daily. ??? cloNIDine HCL (CATAPRES) 0.1 mg tablet Take 0.1 mg by mouth 3 times daily. ??? pantoprazole (PROTONIX) 40 mg Tablet, Delayed Release (E.C.) Take 40 mg by mouth daily. Review of Systems: 10+ systems were reviewed. In addition to what is listed in the HPI, he following was the positive: Dizziness Constitutional: No fevers or chills. Psychiatric: No depression/anxiety. Skin: No rashes. Respiratory: No shortness of breath. Cardiovascular: No chest pain. GI: No nausea/vomiting. : No incontinence. Endocrine: No polydipsia. Musculoskeletal: No muscle pain/joint pain. Neurologic: as per HPI and otherwise negative Hematologic: No excessive bruising. General Medical Examination: Vitals: BP (!) 160/70 (BP Location: Left arm, Patient Position (BP): Sitting) Pulse 67 Temp 97.7 ??F (36.5 ??C) (Oral) Resp 18 SpO2 98% Gen appearance: Awake, alert, cooperative and in no acute distress Eyes: No conjunctival injection. Anicteric sclerae. See neurologic exam below for pupillary examination. HENT: Atraumatic. See neurologic examination below for assessment of hearing. Neck: Trachea midline; grossly normal range of motion, no apparent thyromegaly or masses Cardiovascular: Regular rate and rhythm, no carotid bruits. Respiratory: Normal respiratory effort, non-labored breathing. Clear to auscultation bilaterally inanterior rowe. Musculoskeletal / Extremities: No cyanosis or clubbing in fingers or toes. See Neurologic examination for assessment of muscle strength. Psychiatric: Judgement and insight is appropriate. See neurologic examination for mental status exam. Neurologic: Mental status: Awake, alert. Correctly states name, age, location and current month. Speech is fluent. No evidence of aphasia, significant memory impairment or confusion per history and exam today Cranial nerves II-XII examined: Grossly intact including: pupils are unequal (R 3 mm and left 2.5 mm) but round and reactive to light, EOMI, Visual rowe full, hearing intact to conversation, face symmetric without ptosis or lid-lag or facial droop, speech is clear. Motor: Moves all extremities with mild focal weakness in RLE-complaints of pain due to cellulitis as well as lower back. No pronator drift. No drift in legs. Sensation: Patient reports coarse touch and pinprick decreased on the left forehead and the right arm and leg. Coordination: Finger nose finger is intact bilaterally, with no significant ataxia or dysmetria present. But appears to have maybe a mild ataxia on the left lower extremity. otherwise, movements are grossly coordinated, and no adventitious movements are seen. Reflexes: 2+ and symmetric in BUE, 1 in BLE. No pathologic reflexes noted. No Gunner or clonus. Bilateral toes are down. NIH Stroke Scale: NIHSS, exam performed at time: 1800 LOC 0 (0=alert; 1=drowsy; 2=stuporous; 3=coma) QUESTIONS 0 (0=both correct; 1=one correct; 2=neither correct) What is the month? What is your age? COMMANDS 0 (0=both correct; 1=one correct; 2=neither correct) Close eyes; make a fist GAZE 0 (0=nl; 1=partial hor gaze paresis; 2=forced gaze dev) ROWE 0 (0=nl; 1=partial; 2=complete HH; 3=yan blind) FACE 0 (0=nl; 1=minor; 2=partial (UMN); 3=LMN or yan) RUE 0 (0=nl; 1=drift 10sec; 2=effort grav; 3=no effort grav; 4=0/5) LUE 0 (as above) RLE 0 (0=drift>5sec; 1=drift; 2=effort grav; 3=no effort grav; 4=0/5) LLE 0 (as above) ATAXIA 1 (0=nl; 1=unil one limb; 2=unil two limbs or yan) SENSORY 1 (0=nl; 1=partial; 2=dense) APHASIA 0 (0=nl; 1=mild dysphasia; 2=severe; 3=mute) DYSARTHRIA 0 (0=nl; 1=mild; 2=unintelligible) NEGLECT 0 (0=nl; 1=one modality; 2=sensory + visual) TOT NIHSS 2 Laboratory Data: No results found for this visit on 10/05/21 (from the past 24 hour(s)). Imaging: Reviewed in [facility], Brain imaging personally reviewed; Other studies reviewed in EMR; Relevant stroke data CTA Head and Neck (): MRI Brain without contrast was done in OSH (10/05/2021): Revealed acute left medullary infarction. 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 Given the location it is likely small vessel in nature, patient has multiple risk factors. We will proceed with full stroke work-up. Plan: Left medullary stroke Vitals and monitoring: - High frequency vital signs and neurochecks Without TPA - q4 hours x 24 hours - Continuous cardiac monitoring and telemetry Blood pressure management: -Place resume normotension given his symptoms has been going on since 30 September Imaging: -MRI brain without contrast completed -PRN head CT without contrast for neurologic decline Vascular study: -CTA head/neck ordered Cardiac: -Transthoracic Echocardiogram (TTE) with PFO assessment - discharge with 30 day monitor if embolic stroke identified on imaging Labs: -Fasting Lipid panel for LDL -HgbA1C Antithrombotic: -Start Aspirin 81 mg OR Aspirin 300mg WA if unable to take PO - Load Plavix 300 mg on 10/05/2021 -Starting tomorrow, continue aspirin 81 mg and Plavix 75 mg daily. Will depend on the CTA result. Statin: -Start Lipitor 80 mg and target LDL < 70 (once discharged from here, okay to resume his rosuvastatin but please increase the dose to 40 mg) Therapy: -PT/OT/ST evaluation and -Ensure bedside dysphagia screen is completed -Assess for IP rehab needs Advised optimal risk factor control Recommend start using his CPAP machine soon as possible Encouraged reducing or abstinence from alcoholic beverage Communication: Case discussed Dr. Barajas Neurology post-hospital follow up plan: He will need to follow-up in outpatient neurology but will send a referral once the stroke work-up completed. Plan of care discussed with Dr. Smith Please note, if you have a question about this patient from 7 AM to 7 PM, please Secure chat the author of this note. If it is 7 PM to 7 AM, please page the Neurology consult pager at [phone]. Author: Vaishali Wilson NP as of: 10/05/2021 This note was generated with Dragon voice recognition software and may contain department helper errors. TS ANALYST Associated attestation - Vanessa Smith MD - 10/05/2021 7:09 PM SPORTS ANALYST Stroke/Neurology Attending Attestation Patient seen and examined with the Nurse Practitioner on 10/05/2021. I have reviewed the note as dictated and agree with the assessment and plan, as dictated, with the exceptions, if any, noted below. Brief HPI/Interval History: 56 y.o. male with history of HTN, HLD, DM, NATALY (not yet started on CPAP) who presents with dizziness and gait unsteadiness (veering to L) since 4 days ago. Outpatient MRI showed acute L lateral medullary stroke. EXAM: Gen appearance: Awake, alert, cooperative and in no acute distress Eyes: No conjunctival injection, anicteric. HENT: Atraumatic Neck: Trachea midline, Cardiovascular: Regular rate and rhythm on tele monitor. Respiratory: Normal respiratory effort, non-labored breathing Musculoskeletal / Extremities: venous stasis changes in b/l LEs Skin: RLE erythema Psychiatric: affect is appropriate. Mental status: AAOx4, fluent language, follows simple commands CN: PERRL, VFF, EOMI, face symmetric, sensation intact in V1-V3 bilaterally to light touch, trace dysarthria Motor: strength 5/5 throughout Sensory:- intact to light touch throughout Coordination: LUE ataxia; Labs/Images: personally reviewed and discussed as in note below or herein this attestation. 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 #Newly Dx NATALY -- CPAP titration study done at OSH -- Consult respiratory to initiate PAP overnight when able Vanessa Smith MD as of: 10/05/2021 at: 7:04 PM This note was generated with [employer] voice recognition software and may contain department helper errors. documented in this encounter ED Notes * Cherri Mcdonough RN - 10/05/2021 9:22 PM CST Pt medicated per OCT. Patient/family has been informed about benefits and any potential clinically significant side effects or other concerns regarding the administration of the drug they have just been given. Pt resting on stretcher. Call light within reach. RR equal and non-labored. NAD noted. Family at bedside. Pt denies any needs at this time. TS ANALYST * Cherri Mcdonough RN - 10/05/2021 8:38 PM CST Pt medicated per OCT. Patient/family has been informed about benefits and any potential clinically significant side effects or other concerns regarding the administration of the drug they have just been given. Pt resting on stretcher. Call light within reach. RR equal and non-labored. Family at bedside. NAD noted. Medicine resident at bedside. TS ANALYST * Emilee Gallego RT - 10/05/2021 7:04 PM CST Images from the original note were not included. [facility] CT MRI Medication and Flush Protocol [facility] Approved by: [facility] - Medical Executive Committee Approval Date: 09/23/2020 ORDERS ARE ENTERED ???PER PROTOCOL?? Enter the protocol in the patient's electronic health record using smartphrase: .imagingctmriprotocol Communication Orders: o For ordered imaging procedures requiring intravenous access: ??? Initiate a peripheral IV, if not already in place, and discontinue IV prior to discharge (if outpatient). ??? Enter order if needed: Insert Peripheral IV o Bariatric Oral Contrast: Post-surgical bariatric patients will have markedly reduced ability to drink normal quantities of liquid. ??? Four ounces will be the maximum amount or less if the patient cannot comfortably tolerate. ??? Cancel oral contrast if patient is nauseated or vomiting. ??? Water based contrast only Medication Orders: o Local Anesthetic for use to initiate IV ADULT ??? Lidocaine 4% (L.M.X.4) applied topically ONE TIME prior to IV catheter insertion PRN (L.M.X.4 %should be applied 15 minutes prior to procedure) PEDIATRIC ??? Lidocaine 4% (L.M.X.4) applied topically ONE TIME prior to IV catheter insertion PRN (apply 30 minutes prior to procedure) ??? Sucrose 24% (Squirts) given PO prior to IV catheter insertion (administer 1 - 2 minutes prior to procedure) OR ??? Sucrose 24% (Tootsweet; Sweet-Ease) oral solution 0.2 mL oral (apply to tongue on pacifier or clean, gloved finger), ONE TIME 2 minutes prior to painful procedure. May repeat dose x1 PRN to complete procedure. o Sodium chloride 0.9% (normal saline) flush 10 mL PRN for saline lock or medication administration. o For respiratory distress, initiate oxygen and/or increase O2 to maintain saturation greater than 90% o For all invasive procedures: obtain Lidocaine 1% for intra-procedure administration. If Lidocaine1% unavailable, may substitute Lidocaine 2%. PROCEDURE SPECIFIC CT MEDICATIONS Any exceptions to these contrast protocols must be approved by a Radiologist and documented in the EHR Progress Notes. Cystogram (CT Pelvis): Iopamidol (Isovue 300) 61%, 50mL, diluted with 250mL of sterile NS. Inject Isovue into 250mL bag ofNS. Clamp hendrickson catheter prior to instilling solution via catheter. o Instill up to 300mL of Isovue and NS solution into bladder via catheter, one time. CT ORAL CONTRAST PROTOCOLS FOR ADULTS ??? Use Iohexol (Omnipaque) 240 mg/mL for CT scan unless patient has a documented allergy to contrast dye. ??? If allergy present, use Barium Sulfate (EZ Paque) for procedure. o Iohexol (Omnipaque) 240 mg/mL: 50ml added to 960mL of clear liquid of patient's choice. Preferredroute is oral. May use nasoenteric tube if needed. ??? Administer 900mL of the diluted Omnipaque 240, orally, one time only. o Barium Sulfate (EZ Paque /Vanilla Silq) 96% oral suspension: Preferred route is oral. May use nasoenteric tube if needed. ??? Administer 900mL of barium sulfate, orally, one time only. CT ORAL CONTRAST PROTOCOLS FOR PEDIATRICS Pediatrics = up to age 18 o Pediatric Radiologist will approve of one of the following products selected for procedure. ??? Barium Sulfate (EZ Paque) 96% oral suspension: preferred route is oral. May use nasoenteric tube if needed. [place] to 3 months Administer up to 90mL of Barium sulfate, orally, one time only 4 months to 1 year old Administer up to 240mL of Barium sulfate, Orally, One Time Only 1 year old to 5 years old Administer up to 360mL of Barium sulfate, Orally, One Time Only 5 years old to 10 years old Administer up to 480mL of Barium sulfate, Orally, One Time Only Over 10 years old Administer up to 600mL of Barium sulfate, Orally, One Time Only Iohexol (Omnipaque) 240 mg/mL oral solution ? Dilute 25mL of Iohexol with 480mL of clear liquid of patient's choice. Administer the diluted solution per age as follows: Preferred route is orally. May use nasoenteric tube if needed. ? Send any remaining diluted Iohexol solution with the patient's nurse to CT ? ? [place] ? Administer 45mL of diluted Iohexol oral solution, orally every 30 minutes x 2 doses. ? 1 month to 1 year old ? Administer 120mL of diluted Iohexol oral solution, orally every 30 min x 2 doses. ? 1 year old to 5 years old ? Administer 180mL of Iohexol orally every 30 min x 2 doses. ? 5 years old to 10 years old ? Administer 240mL of Iohexol orally every 30 min x 2 doses. ? Over 10 years old ? Administer 300mL of Iohexol orally every 30 min x 2 doses. ? ? CT RECTAL CONTRAST PROTOCOLS ADULTS: o Iohexol (Omnipaque) 240 mg/mL: Dilute 50mL of Omnipaque with 900mL of warm water in an enema bag.Administer the diluted solution rectally via gravity per patient's tolerance, up to 950mLs, one time only. ? CT IV CONTRAST PROTOCOLS for ADULT ? ADULTS: (If patient is less than 55kg and confirm dose with radiologist) o Iopadmidol (Isovue-300): Administer 2.2mL/kg of Iopamidol 61%, intravenously, one time only. o See table below for maximum dose, unless otherwise authorized by radiologist. If exam has been completed before the entire dose has been administered, stop the injection. o Multiple doses of iodine contrast within a 24-hour period are a risk factor for JAN and should beavoided if possible. Emergent or other unusual circumstances where multiple doses of contrast are required in a short interval time should prompt consideration by the referring professional and radiologist to discuss the risks and benefits of contrast media administration. o If exam not included in table below, contact radiologist for orders. Procedure Maximum Dose CT Head with Contrast Up to [address] Chest with Contrast Up to [address] Maxillofacial with Contrast Up to [address] Soft Tissue Neck with Contrast CT Chest Abdomen Pelvis with Contrast CT Chest Abdomen with Contrast CT Abdomen Pelvis with Contrast CT Pelvis with Contrast CT Angiogram Examinations (all) CT Soft Tissue Neck and Chest Abdomen Pelvis with Contrast Up to [address] Soft Tissue Neck and Chest with Contrast CT Urogram with Contrast CT IV CONTRAST PROTOCOLS for PEDIATRICS PEDIATRICS: Use weight-based dosing if patient is less than 55kg and confirm dose with radiologist. to 15 years old Administer 2.2mL/kg (to MAX of 80 mL) of Iopamidol (Isovue-300) 61%, intravenously, one time only 15 years old and older Administer 2.2mL/kg (to MAX of 150mL) of Iopamidol (Isovue-300) 61%, intravenously, one time only PROCEDURE SPECIFIC MRI MEDICATIONS: MRI ENTEROGRAPHY: GLUGACON ADMINISTRATION ADULTS: (patient 18 years or older) o Patient will receive 2 doses of Glucagon one dose 0.5mg IM administered by RN prior to the MRI exam beginning 2nd dose 0.5mg IV prior to the IV contrast being administered. (If the patient is diabetic call the radiologist to verify administration of Glucagon) PEDIATRICS: If the patient is diabetic call the radiologist to verify administration of Glucagon o Pediatric patient weighing 24.9 kg or less should have one dose of Glucagon 0.5mg IM administeredby RN prior to MRI exam beginning. o Pediatric patient weighing 25 kg or greater should have one dose of Glucagon 1 mg IM administeredby RN prior to the MRI exam beginning. MRI UROGRAM: LASIX ADMINISTRATION ADULTS: Call radiologist with any questions regarding administration of Lasix o Lasix 0.1mg per kg with a minimum dose of Lasix 5mg IV being given up to a max dose of Lasix 10mgIV being given. The Lasix should be administered by RN prior to the IV contrast being administered. ??? (Hold Lasix if: obstruction, anuria and hypersensitivity to furosemide, and electrolyte imbalance or hypotension should be corrected by RN before administering) MRI IV CONTRAST PROTOCOLS ADULTS: Multihance and Prohance can be used for most MRI scans Prohance should be used primarily. Multihance is useful in specific circumstances as directed by the radiologist or per the appropriate sections established protocols. Group I gadolinium contrast agents shall not be administered. Generally, multiple doses of gadolinium contrast should not be administered within a 24-hour period. In emergent or other unusual circumstances where this is necessary, only Group II agents should beadministered. For Liver Studies: Contact radiologist to determine use of one of the following: ??? Gadobenate Dimeglumine (Multihance) (0.1mmol/0.2mL), Administer 0.1mmol/kg = 0.2mL/kg up to MAXof 20 mL, intravenously, one time only ??? Gadoteridol (Prohance) (0.1mmol/0.2mL), Administer 0.1mmol/kg = 0.2mL/kg up to MAX of 20mL, intravenously, one time only ??? Gadoxetate (Eovist) (2.5 mmol/10mL), Administer 0.025mmol/kg = 0.1mL/kg up to MAX of 10mL, intravenously, one time only PEDIATRICS: Radiologist to determine need for contrast Term neonates up to 2 years: Gadobuterol (Gadavist) (1mmol/mL injection), Administer 0.1mmol/kg = 0.1mL/kg up to MAX of 14mmol=14mL, intravenously, one time only OR Gadobenate Dimeglumine (Multihance) (0.1mmol/mL), Administer 0.1mmol/kg = 0.1mL/kg up to MAX of 14mmol = 14mL, intravenously, one time only 2 years and older Gadobenate Dimeglumine (Multihance) (0.1mmol/0.2mL), Administer 0.1mmol/kg = 0.2mL/kg up to MAX of 20mL, intravenously, one time only OR Gadoteridol (Prohance) (0.1mmol/0.2mL), Administer 0.1mmol/kg = 0.2mL/kg up to MAX of 20mL, intravenously, one time only TABLE 1. ACR Manual Classification of Gadolinium-Based Agents Relative to Nephrogenic Systemic Fibrosis Group I: Agents associated with the greatest number of NSF cases: o Gadodiamide (Omniscan?? - Boundless) o Gadopentetate dimeglumine (Magnevist?? - Vignani) o Gadoversetamide (OptiMARK?? - Guerbet) Group II: Agents associated with few, if any, unconfounded cases of NSF: o Gadobenate dimeglumine (MultiHance?? - [employer]) o Gadobutrol (Gadavist?? - Vignani; Gadovist in many countries) o Gadoteric acid (Dotarem?? - Guerbet, Clariscan - Boundless) Gadoteridol (ProHance?? - [employer]) Group III: Agents for which data remains limited regarding NSF risk, but for which few, if any unconfounded cases of NSF have been reported: Gadoxetate disodium (Eovist - Vignani; Primovist in many countries) TS ANALYST * Marilu Healy RN - 10/05/2021 6:51 PM CST Pt to CT. TS ANALYST * Marilu Healy RN - 10/05/2021 6:04 PM CST Spoke with neurology PA about pt BP and was told probably treat elevated BP after CTA. TS ANALYST * Marilu Healy RN - 10/05/2021 5:59 PM CST Neurology PA at bedside. TS ANALYST * Marilu Healy RN - 10/05/2021 5:31 PM CST Pt presents to ED with c/o possible stroke on Sunday morning. Pt states he woke with a headache, unsteady gait, and pulling to the left. Pt went to ED in [place] and was told everything was fine.Pt left ED and came home. Pt was still having problems went to another ED and was told everything checked out. Pt has PT this morning and was told to go see PCP. Pt had MRI this morning. After MRI ptwas told to come to ED with abnormal MRI results. 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 Pt denies anydecrease in sensation. Pt BP elevated 194/84. Pt placed on classroom monitor. Will continue to monitor. TS ANALYST * Joey Barajas MD - 10/05/2021 3:53 PM CSTAssociated Order(s): Critical Care History of Present Illness Primary Care Doctor: No primary care provider on file. Documented Triage Chief Complaint: Stroke Provider was at the bedside at 5:03 PM Taylor De Jesus is a 56 y.o. male who presents with left-sided occipital headache associated with dizziness, generalized weakness, and gait instability that have persisted for the past 4 days. 10/01 Patient reports waking up with left-sided occipital headache and general malaise while on vacation in [place]. Then became dizzy, described as room- spinning sensation, while ambulating. He states that he was seen at an urgent care later that day where CT imaging was unrevealing. Labs and EKG obtained at that time were also unremarkable and patient was ultimately prescribed meclizine for suspected vertigo. 10/04 Patient presented to outside hospital in [place] with persistent headache, dizziness, generalized weakness, and gait instability where repeat CT imaging and labs were again unrevealing and he was instructed to follow up with PCP and physical therapy as an outpatient for management of vertigo. Incidental finding of right lower extremity cellulitis was also appreciated at that time and patient started on cephalexin. 10/05 Patient seen by physical therapy today with persistent symptoms and reports that he was told byhis PT that his symptoms were not consistent with vertigo. He was then instructed to present to PCPwho ordered an outpatient MRI which was completed prior to arrival, revealing of medullary stroke. Patient denies having any neck pain. He states that he has not had any recent falls or chiropracticmanipulation. Patient past medical history is significant for HTN, HLD, and DM2. Patient reports history of bleeding gastric ulcer and states that he presented with similar symptoms at that time. He denies having any black or bloody stools. Patient social history is not significant for tobacco use. Onset: gradual Severity: moderate Duration: 4 days Frequency/Progression: unchanged Quality: spinning Radiation: localized Modifiers: dizziness worsens with eyes open Associated symptoms: see above Patient information was obtained from primarily from the patient History/Exam limitations: none Review of Systems ?? A comprehensive review of systems was completed. See HPI for additional ROS Constitutional: No Fever, No chills ENT: No rhinorrhea, No sore throat Eyes: No vision change, no photophobia Respiratory: No cough, No dyspnea Cardiac: No chest pain, No palpitations GI: No abdominal pain, no nausea, no vomiting, no diarrhea, no melena, no blood in stool : No dysuria, no hematuria Musculoskeletal: No joint pain, no muscle aches, no neck pain Skin: No rash, no color changes Heme: No spontaneous bleeding, no bruising Neuro: Generalized weakness, dizziness, gait instability, no seizures Psych: No hallucinations, no acute change in mood Relevant Medical History Past Medical History: Past Medical History: Diagnosis Date ??? Diabetes mellitus ??? HTN (hypertension) ??? Hyperlipidemia Past Surgical History: No past surgical history on file. Home Medications: Patient's Home Medications Current Home Medications AMLODIPINE-ATORVASTATIN 10-10 MG TABLET CLONIDINE HCL (CATAPRES) 0.1 MG TABLET GLIPIZIDE (GLUCOTROL) 10 MG TABLET HYDROCHLOROTHIAZIDE (MICROZIDE) 12.5 MG CAPSULE METFORMIN (GLUCOPHAGE) 1,000 MG TABLET PANTOPRAZOLE (PROTONIX) 40 MG TABLET, DELAYED RELEASE (E.C.) ROSUVASTATIN (CRESTOR) 20 MG TABLET Medications Modified during this Encounter Medications Discontinued during this Encounter Allergies: Penicillins Social History: reports that he has never smoked. He does not have any smokeless tobacco history on file. Family History: family history is not on file. Physical Exam BP: (!) 169/75 (03/02/22 2000), Pulse: 66 (10/05/211999), Resp: 18 (10/05/211999), Temp: 97.7 ??F(36.5 ??C) (10/05/21 1558), Temp src: Oral (10/05/21 1558) General: Alert, no obvious distress HEENT: Normocephalic, atraumatic, Throat clear, Nose without drainage, mucous membranes moist Neck: No JVD Back: Not tender in midline, no CVAT Chest Wall: No tenderness, injury or deformity Heart: RRR,systolic murmur best heard over the right upper sternal border Lungs: CTA = Bilat Abdomen: Soft, non-tender, normal bowel sounds Rectal: Not performed Extremities: No edema, no calf tenderness Skin: No rash noted, no petechiae, no purpura Lymphatic: No lymphadenopathy noted Neuro: Generalized weakness, slight facial droop on the left Psychiatric: normal affect and mood. Other: Studies and Interpretation Pulse Oximetry Interpretation: Saturation: 98% Oxygen Delivery: Room Air Interpretation: Not hypoxic Initial Electrocardiogram (independent interpretation by Jose Barajas MD if performed): Normal sinus rhythm, rate of 89, no ST or T Wave changes that are worrisome for acute ischemia, there are no priors for comparison. Imaging (all imaging was independently reviewed by me if performed): CTA HEAD AND NECK W AND/OR WO CONTRAST Radiologist Impression IMPRESSION: 1. Non-contrast head CT demonstrates no acute intracranial hemorrhage. Acute ischemic infarct in the left lateral medulla seen on the prior brain MRI is not visible by CT. 2. CTA of the neck demonstrates no acute abnormality. No high-grade ICA stenosis. 3. CTA of the head demonstrates no arterial occlusion or high grade stenosis. Moderate focal stenosis of the left P2 OCCUPATIONAL THERAPY CO DIRECTOR segment. DICTATION LOCATION: Location - [facility] XR CHEST PA OR AP 1 VW Radiologist Impression IMPRESSION: Clear lungs. DICTATION LOCATION: Location - [facility] Lab: (Reviewed by me if performed), Significant for: Results for orders placed or performed during the hospital encounter of 10/05/21 (from the past 24 hour(s)) CBC WITH DIFFERENTIAL Result Value Ref Range WBC 7.4 4.0 - 9.8 K/uL RBC 4.31 (L) 4.50 - 5.40 M/uL HEMOGLOBIN 14.6 13.6 - 16.5 g/dL HEMATOCRIT 43.1 40.0 - 48.0 % MCV 100.0 (H) 82.0 - 99.0 fL MCH 33.9 (H) 27.2 - 32.6 pg MCHC 33.9 31.5 - 35.5 g/dL RDW 12.5 11.5 - 14.5 % RDW-STDEV 46.8 37.1 - 48.7 fL PLATELETS 189 140 - 350 K/uL MPV 10.2 9.3 - 12.4 fL NEUTROPHILS 59 % LYMPHOCYTES 29 % MONOCYTES 9 % EOSINOPHILS 1 % BASOPHILS 1 % IMMATURE GRANULOCYTES 2 % NEUTROPHIL ABSOLUTE 4.34 1.90 - 7.00 K/uL LYMPHOCYTE ABSOLUTE 2.13 0.70 - 4.50 K/uL MONOCYTE ABSOLUTE 0.64 0.10 - 1.30 K/uL EOSINOPHIL ABSOLUTE 0.10 0.00 - 0.70 K/uL BASOPHILS ABSOLUTE 0.05 0.00 - 0.20 K/uL IMMATURE GRANULOCYTES ABSOLUTE 0.15 (H) 0.00 - 0.03 K/uL PROTIME-INR Result Value Ref Range PROTIME 14.4 12.7 - 15.1 Seconds INR 1.1 0.9 - 1.1 PTT Result Value Ref Range PTT 35.8 24.4 - 36.4 seconds COMPREHENSIVE METABOLIC PANEL Result Value Ref Range SODIUM 139 136 - 145 mmol/L POTASSIUM 4.1 3.5 - 5.0 mmol/L CHLORIDE 100 98 - 107 mmol/L CO2 27 22 - 29 mmol/L CALCIUM 10.4 (H) 8.6 - 10.2 mg/dL BUN 13 6 - 20 mg/dL CREATININE 0.72 0.67 - 1.17 mg/dL GLUCOSE 131 (H) 74 - 99 mg/dL TOTAL PROTEIN 8.1 6.7 - 8.6 g/dL ALBUMIN 4.4 3.5 - 5.2 g/dL BILIRUBIN TOTAL 0.9 0.3 - 1.2 mg/dL ALKALINE PHOSPHATASE 88 40 - 129 U/L AST 34 <41 U/L ALT 42 (H) <42 U/L GFR >60 >=60 mL/min/1.73 sq meter ANION GAP 12 8 - 16 mmol/L TSH Result Value Ref Range TSH 0.63 0.27 - 4.20 uIU/mL MAGNESIUM LEVEL Result Value Ref Range MAGNESIUM 1.7 1.6 - 2.6 mg/dL Note: Some of these results may have resulted after patient discharge or admission to the hospital. Medical Decision Making and ED Course Medical Decision Makin y.o. male presenting w/ persistent dizziness, previous headache now resolved, generalized weakness, found to have medullary infarct on MRI today as an outpatient. Patient otherwise appears well, assessed with neurology, CT angio with focal stenosis, discussed with neurology, recommended probablyout of the window for totally permissive hypertension, recommend gentle down titrating with home medicines at this time. Given Plavix load, baby aspirin, admit to neurology for stroke pathway furtherwork-up and treatment. Progress Note(s) Upon initial encounter, discussed plan for basic labs as well as magnesium level, TSH, PTT, and protime-INR. Will also obtain EKG and chest x-ray. Reviewed MRI obtained at outside facility. Patient understands and agrees to plan. ED Course as of 10/05/212004Oct 05, [address] Smith (Neurology) will see patient. [CM] 1922 Valorie (COTTON BALL MACHINE TENDER) accepts patient admission to neurology floor under Dr. Bucio (Hospitalist). [CM] 1944 Neurology agrees with plan for clonidine, given slowly. [CM] ED Course User Index [CM] Olya Green, Josefina Case Discussed: Procedures: Critical Care Performed by: Joey Barajas MD Authorized by: Joey Barajas MD Critical care provider statement: Critical care time (minutes): 35 Critical care time was exclusive of: Separately billable procedures and treating other patients Critical care was necessary to treat or prevent imminent or life-threatening deterioration of the following conditions: ALLOY WEIGHER failure or compromise Critical care was time spent personally by me on the following activities: Development of treatmentplan with patient or surrogate, evaluation of patient's response to treatment, examination of patient, re-evaluation of patient's condition, ordering and review of laboratory studies, ordering and review of radiographic studies, discussions with consultants, obtaining history from patient or surrogate, pulse oximetry and discussions with primary provider I assumed direction of critical care for this patient from another provider in my specialty: no Care discussed with: admitting provider Medications Administered During the ED Stay from 10/05/2021 1553 to 10/05/20212004 Date/Time Order Dose Route Action 10/05/2021 190 iopamidoL (ISOVUE-300) 61% injection (drawn from multi-use bulk pack) 80 mL 80 mL IV Contrast Given 10/05/20211903 sodium chloride flush injection 10 mL 10 mL IV Given 10/05/20211944 sodium chloride 0.9% bolus solution 50 mL 0 mL IV Stopped 10/05/20211914 sodium chloride 0.9% bolus solution 50 mL 50 mL IV New Bag Amount and/or Complexity of Data Reviewed --I reviewed the labs and/or radiology studies, vital signs, and nursing notes. I agree with the nursing notes except as noted in the body of this record. --Clinical lab tests: ordered and reviewed --Independent visualization of images, tracings, or specimens (including EKGs): yes --Previous electrocardiograms reviewed: no --Reviewed past medical records: yes --Discuss the patient with other providers: yes Condition at disposition: 1649 I have discussed the case with the admitting service (Hospitalist) including the patient's diagnosis, test results, medications and current condition. The admitting service will determine the inpatient plan for the patient. While I have assisted the attending with holding orders, it should be noted that care is transferred at the time the holding orders were placed and the admitting attending is now in charge of the patient's medical care Diagnosis: Encounter Diagnoses Code Name Primary? I63.9 Cerebrovascular accident (CVA), unspecified mechanism Yes ??? E11.69 Type 2 diabetes mellitus with other specified complication, unspecified whether shelter insulin use ??? H81.4 Vertigo of central origin Transfer to Unit: Neurology Joey Barajas MD This note has been prepared by Olya Green acting as a scribe for Dr. Joey Barajas on 10/05/2021 at 7:33 PM. The scribe's documentation has been prepared under my direction and personally reviewed by me, Joey Barajas, in its entirety on 10/05/21 at 8:05 PM. I confirm that the note above accurately reflects all work, treatment, procedures, and medical decision making performed by me. Note: This H+P was created with the aid of dictation software, thus there may be some word substitutions or errors. TS ANALYST documented in this encounter Miscellaneous Notes * Care Plan - Bruna Gonzalez RN - 10/07/2021 12:50 PM CST Patient oriented throughout shift, no new deficits noted. Ambulating SBA. No complaints of pain. BLE saadia, patient reports previous infection. Continent of bowel and bladder. Stroke education and discharge NIHSS completed. Discharge orders received, education given to patient. Will follow up as needed. TS ANALYST * Care Plan - Bruna Gonzalez RN - 10/07/2021 12:04 PM CST STROKE EDUCATION ([facility]) Met with the patient and his patient to review and discuss written materials provided in stroke booklet, which include: risk factors/modification for secondary stroke prevention, diagnostic tests, warning signs and symptoms of stroke, activation of EMS, importance of post-hospital discharge appointment with physician, the significance of medication compliance, and post-discharge therapy services. Reviewed patient? s past medical history to determine personal risk factors, which include: age > 55, diabetes, high blood pressure, high cholesterol or obesity Mutually Agreed Upon Plan for Risk Factor Management To reduce the Risk for Stroke, patient agrees to the following: BLOOD PRESSURE MANAGEMENT [x] Will ask physician about blood pressure goal [x] Will take blood pressure daily and record on log to take to physician visits [] Will purchase a blood pressure machine [] Will ensure blood pressure medications are taken regularly without missing. If need to stop taking or change medication, will discuss with doctor first. [] Other (specify): REDUCE CHOLESTEROL/DIET (Current LDL level: Lab Results Component Value Date/Time LDLCALC 85 10/06/2021 05:16 AM ) [] Interested in a referral for nutritional education [] Will attend a nutrition class offered in the community or at [facility] [x] Will learn about reading labels and understanding personal fat/cholesterol limits [x] Will take cholesterol-reducing medications as prescribed [] Other (specify): ANTICOAGULANT / ANTI-PLATELET / MEDICATIONS (Current list of medications provided) [x] Will learn about all prescribed medications, reasons they are taken, and side effects [x] Will keep a current medication list on self, at home on refrigerator (or other location) [x] Will not stop taking medications unless instructed by physician [] Other (specify): INCREASE ACTIVITY / EXERCISE / WEIGHT LOSS [x] Will get a personal plan for a regular exercise program and follow it to best of ability [] Will join a gym / go to gym regularly [] Will make a plan to lose pounds [] Other (specify): NO SMOKING / DRUGS AND/OR REDUCE OR LIMIT ALCOHOL [] Will make an effort to quit smoking [] Will contact a stop-smoking resource such as offered at [facility] or in the community [] Will limit alcohol consumption to drinks per [] Other (specify): SUGAR CONTROL FOR DIABETICS / SLEEP APNEA [] Will attend a diabetes education class such as offered at [facility] or in the community [x] Will test blood sugar as suggested by physician and keep written record Will bring results to all doctors' appointments [x] Will follow the diet plan as directed by my physician / nutrition plan [] Will take insulin and/or diabetic medications as prescribed [] If told has sleep apnea, will follow-up with physician [] Other (specify): [] Other risk factor modifications not listed above which are agreed upon to help reduce stroke risk (specify): [x] Will keep follow-up office visit with Primary Care Physician and/or Neurologist [x] Will bring the stroke education booklet and a list of questions to each healthcare visit. [] Will watch intelloCut patient education video(s) [] Will attend a stroke support group meeting [] Will access online resources through the [place] [employer]/[place] [employer] (Indicate outcome with an x ) X patient accepting of information and verbalized understanding TS ANALYST * Care Plan - Narciso Pratt GN - 10/07/2021 4:23 AM CST Pt alert 4. Pt had complaints of back pain. RN administer Per Oct. Pt sleeping in between care. Will continue to monitor. Call Light in reach. Pt on room air. Pt SBA with gait belt and walker. Day 1 - Current ([place] [facility]: Adult and Obstetrics) Patient, family, or healthcare designee is participating in individual care plan process Outcome: Met Patient, family, or healthcare designee understands side effects of medications Outcome: Met Pathway Day 1 - Current (INTERDIS PW: TIA/STROKE, ISCHEMIC WITHOUT THROMBOLYSIS) Hemodynamics: Patient able to maintain Temp less than 99.5 F (37.5C); SBP between 120-220 mmHg; HR less than 110 and greater than 50; Resp maintained at less than 24; O2 saturations greater than 94%. Outcome: Met Neurological: Patient at baseline neurological status with no S & S of deterioration (NIHSS: 4 or greater; decreased LOC; speech change; facial droop; change in PERRLA, pupil drift; headache; N/V; any suspicion of increased ICP; new onset seizure). Outcome: Met Nutrition Management: Patient able to pass nursing swallowing screen or was evaluated by DIRECTOR COUNCIL ON AGING prior to any oral intake. Outcome: Met Activity/Rehab: Patient able to participate in initial evaluation to correlate current level of function to pre-stroke level of function. Outcome: Met Patient Education: Patient and/or healthcare delegate verbalizes understanding of stroke diagnosis,including diagnostic tests. Outcome: Met Discharge Planning: Discharge needs identified/screening assessments completed with patient/healthcare delegate. (Consider NIHSS scores as discharge predictor: less than or equal to 5 = home, 6-13 = acute rehab services, and over 13 = SNF). Outcome: Met TS ANALYST * Care Plan - Dorys Taveras MSW - 10/06/2021 3:24 PM CST Care Management Initial Assessment Initial Discharge Planning Assessment completed. Discussed Care Management's role and Discharge planning. Discharge Plan: Home with [facility] and/or assistance and supervision. Patient Discharge Planning Goal: To go home. Patient will potentially discharge to a SNF/NH? No Care Management visited with: patient, spouse, and daughter via in person. Prior to admission, patient resides at: own home. Prior to admission, living arrangements: spouse. Prior to admission, patient's functional level:independent; uses walker for ADLs; needs assistance with iADLs: N/A Prior to admission, the patient has the following DME? Yes wheeled walker Services in the home: None Receives hemodialysis? No Emergency contact(s): Extended Emergency Contact Information Primary Emergency Contact: edwige de jesus Mobile Relation: Spouse Preferred language: Martiniquais Colorist Photography needed? No Secondary Emergency Contact: luz de jesus Mobile Relation: Daughter Preferred language: Martiniquais Colorist Photography needed? No Insurance coverage verified: Payor: [employer] / Plan: [employer] OPEN ACCESS / Product Type: HMO / Prescription coverage: yes Preferred Pharmacy verified: [facility] Employment Status: employed and FT Has VA Benefits: no PCP verified as: Dr. Faisal Richardson Patient has not had a stay at an acute care hospital in the last 30 days. Recent Falls?: Last Known Fall: Within the last month Patient has a [employer] account: no Patient has a smart device: Yes Patient's mobile number verified: Yes. Patient's number: [phone] Patient is able to receive text messages: Yes Patient has access to the internet: Yes Plan for transportation at discharge: Comments: Patient and family did not have questions or concerns for SW at this time. Care Management contact information provided. Care Management will continue to follow and assist asneeded. Discussed Discharge Planning with patient, spouse, and daughter. Have assessed family ability, willingness, and readiness to provide care or support patient self-management at home after discharge. Resources were offered: N/A If resources were provided, these included: N/A [place] [phone] Day 1 - Current ([place] [facility]: Adult and Obstetrics) Patient, family, or healthcare designee is participating in individual care plan process Outcome: Met Problem: Discharge Planning Goal: Identify discharge needs upon admission and through discharge Description: Outcome: Progressing TS ANALYST * Treatment Plan - Cedric Le SLP - 10/06/2021 10:40 AM CST Speech Language Pathologist (DIRECTOR COUNCIL ON AGING) Evaluation Protocol: Stroke Pathway Patients [facility] ORDERS ARE ENTERED ???PER PROTOCOL?? The following delineates when the DIRECTOR COUNCIL ON AGING provides evaluation for patients on the stroke pathway. 1. After the DIRECTOR COUNCIL ON AGING receives a consult, the health care record is reviewed. 2. The health care record review includes evaluation of the following data if/as they are present: ??? The Stroke Dysphagia Screen, ??? E D physician notes, Hospitalist notes, resident notes, and any other notes/information deemed pertinent by the DIRECTOR COUNCIL ON AGING. Diagnostic Evaluation Orders: The criteria below is used to determine if an DIRECTOR COUNCIL ON AGING evaluation is warranted: 1. The DIRECTOR COUNCIL ON AGING completes a swallowing evaluation on all stroke pathway patients who fail the Acute Stroke Dysphagia Screen. 2. The DIRECTOR COUNCIL ON AGING will not routinely complete a swallowing evaluation on patients who pass the Dysphagia screen. 3. The DIRECTOR COUNCIL ON AGING may use his/her discretion to complete a swallowing, speech, language, cognitive, and/orvoice evaluation(s) if s/he feels the patient is at risk for such deficits. 4. The DIRECTOR COUNCIL ON AGING completes speech, language, cognitive, and/or voice evaluation(s) if physician notes within the health care record indicate a change in baseline in this/these area(s). 5. If the DIRECTOR COUNCIL ON AGING determines that an evaluation is not warranted, the DIRECTOR COUNCIL ON AGING will cancel the DIRECTOR COUNCIL ON AGING orders. ??? The DIRECTOR COUNCIL ON AGING will cancel such orders by using the attending physicians name and the per protocol selection to sign the order. ??? The DIRECTOR COUNCIL ON AGING documents cancelation of orders with the following smart phrase: o ???DIRECTOR COUNCIL ON AGING consult received per Stroke pathway. The chart was reviewed and the determination was madethat this Pt does not appear to require an DIRECTOR COUNCIL ON AGING evaluation in any of the following areas at this time: swallowing, speech, language, voice, or cognition. Therefore, an evaluation will not be formally completed. If the attending physician or consulting neurologist would like an evaluation, please re-consult DIRECTOR COUNCIL ON AGING with specific concerns. Additionally, please re-consult if new concerns arise.?? Therapies 1. The DIRECTOR COUNCIL ON AGING provides the patient the appropriate treatment if indicated. Add any instructions here Initiating Department(s): Reviewed: Revised: Approved by: Medical Executive Committee Date: 09/2011 TS ANALYST * Therapy Evaluation - Thalia Schmitt Physical Therapist - 10/06/2021 9:18 AM CST Physical Therapy order received, chart reviewed, and evaluation completed. Please see full evaluation below for details. Daily PT notes will be located in Care Plan notes. Thank You. PT INITIAL EVALUATION Reason for Admission: L medullary infarct Ordered by: Jose Activity Order: As tolerated Weight Bearing Status: No restrictions Precautions: Fall; PMH: Past Medical History: Diagnosis Date ??? Diabetes mellitus ??? HTN (hypertension) ??? Hyperlipidemia ??? PUD (peptic ulcer disease) S: Patient agreeable to therapy. Patient reports 0/10 pain. and daughter present Pain intervention: Unneccessary movement avoided Response to pain intervention: Appeared content Living Situation/Functional Level SAFE AND VAULT SERVICE MECHANIC: Pt reports living with in a one story home with 1 step to enter. He reports he was independent prior to admit. He reports that when his symptoms first started he fell out of the shower. Home Equipment: Wwr, cane O: Appearance: Pt is a 56 year old male, seated in recliner Cognition/Perception: Pt is AxO x4 Skin Integrity: No concerns noted ROM: Bilateral Upper Extremity WFL, Lower Extremity WFL Muscle Tone: WFL Strength: Bilateral Upper Extremity WFL, Lower Extremity WFL Sensation: Pt responds to light touch MOBILITY ASSESSMENT: Bed Mobility: Not assessed due to session beginning and ending in recliner Transfers: Pt performed sit to stand from recliner with close SBA Gait: Pt ambulated 100' with wwr with close SBA. Pt reports L side feeling weak however strength was symmetrical on exam. Pt reports mild dizziness with ambulation. Pt required verbal cues for walkersafety throughout --Gait Deviations: Pt tends to veer towards the L while ambulating, uneven porfirio Balance: Good sitting, fair+ standing Stairs/Curb: Not assessed this date due to fatigue Patient/Family Education: PT plan of care Other: Pt tolerated treatment well Positioning after tx: Patient positioned up in chair with chair alarm on/patient educated on alarm,all lines intact, call light in reach, family present, all needs met A: Disabilities: Decreased balance, decreased tolerance to activity, decreased independence Assessment: Pt would benefit from continued skilled PT services to address these deficits. Clinical Presentation: Stable and/or uncomplicated EVALUATION COMPLEXITY: Low Complexity -These findings are based on patient's self reporting, therapist's objective findings and professional determinations. Recommend: Home with supervision;Home with outpatient PT (10/06/21 8679) outpatient neuro Recommendations were made on today's assessment. Additional recommendations will be based on patient's progress in therapy. P: PT to see patient: At bedside 2-5x/wk. Will continue therapy unless patient has a change in status or patient is discharged from the facility. Plan of Care developed, as indicated by PT assessmentand patient's current status. Treatment Plan: Patient to be seen for Transfer training, Gait training, Exercises, Balance training Recommendations: For: Patient, Nursing --OOB to chair with chair alarm, ambulate in room or hallway, with assist Equipment to be issued at DC: No new DME recommended (10/06/21 0918) --Patient involved in goal setting: yes Patient goals will be found in the Care Plan section of the medical chart. Zone #: [id number] On weekends--please call [phone] TS ANALYST * Therapy Evaluation - Ileana Alanis (Student), Student Therapist - 10/06/2021 8:20 AM CST Occupational Therapy order received, chart reviewed, and evaluation completed. Please see full evaluation below for details. Daily OT notes will be located in Care Plan notes. Thank You. OT INITIAL EVALUATION Reason for Admission: CVA, L medullary infarct, headache, dizziness, generalized weakness, gait instability -- STROKE PATHWAY Ordered by: Jamie Garcia DO Activity Order: No activity orders listed; per RN pt appropriate for OOB Weight Bearing Status: No restrictions noted. Precautions: Fall PMH: Past Medical History: Diagnosis Date ??? Diabetes mellitus ??? HTN (hypertension) ??? Hyperlipidemia ??? PUD (peptic ulcer disease) S: Patient agreeable to therapy. Patient reports 0/10 pain. Pain intervention: Unneccessary movement avoided Response to pain intervention: Appeared content Living Situation/Functional Level SAFE AND VAULT SERVICE MECHANIC: Pt lives with in 1-story house. Bathroom has a walk-in shower with no shower chair or grab bars. SAFE AND VAULT SERVICE MECHANIC pt reports (I) in all ADLs, IADLs, and functional mobility; ambulates with cane typically and recently received a WWR a few days before admission to hospital. Home Equipment: Cane, WWR O: Appearance: 56 y/o male supine with HOB raised. Vision: No changes or issues in vision reported. Pt wears glasses. Cognition/Perception: Alert & oriented x4. Follows simple commands. Decreased awareness of safe WWR handling. Pleasant and cooperative. The [facility] Mental Status Examination (SLUMS): was administered and the patientscored: 30/30 The score indicates that the patient's basic cognitive functions are: WFL The complete SLUMS score can be found in the doc flow sheet section of the chart. The SLUMS subtests results: Attention, immediate recall and orientation: Day of the week: 1. Day of the week What day of the week is it?: Correct (10/06/21819) What year: 2. Year What is the year?: Correct (10/06/21819) What State: 3. State What state are we in?: Correct (10/06/21819) Delayed recall with interference Five Objects: Five Objects Answers: 7. Five Objects (Answers) What were the five objects I asked you to remember? Apple, Pen, Tie, House, Car: 5 Correct (10/06/21819) Numeric calculation and registration [place] Dollars to spend: 5. You have $100 and you go to the store and buy a dozen apples for $3 and a tricycle for $20. 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 One Minute Animals Please name as many animals as you can in one minute.: 15+ animals (10/06/21819) Registration and digit span Series of Numbers: 8. I am going to give you a series of numbers. Repeat backwards. For example, ifI say 42, you would say 24 8a. 87 : Correct (10/06/21819) 8b. 648: Correct (10/06/21819) 8c. 8537: Correct (10/06/21819) Visual spatial Clock Face: 9. This is a clock face. Please put in the hour markers and the time at ten minutes to eleven o'clock. Hour markers okay: Correct (10/06/21819) Time correct: Correct (10/06/21819) Visual spatial and executive function X in [place]: 10. X in the [place] Please place an X in the triangle: Correct (10/06/21819) Which of the figures is largest?: Correct (10/06/21819) Executive function plus extrapolation Devorah Story: 11. 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 She then met Jason, a devastatingly handsome man. She him and had three children. They lived in [place]. She then stopped work and stayed at home to bring up her children. When they were teenagers, she went back to work. She and Jason lived happily ever after. What was the female's name? (Devorah): Correct (10/06/21819) When did she go back to work? 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 ([place]): Correct (10/06/21819) SLUMs Total: 12. SLUMS Total SLUMS Total: 30 (10/06/21819) UE ROM: WFL Muscle Tone: WFL UE Strength: WFL Coordination: right Hand Dominant: WFL Sensation: B UE grossly intact to light touch. Pt reports some numbness and pain in R LE with hx ofsciatica, pt reports this sensation is not new. Skin Integrity: IV; telemetry; No obvious signs of skin breakdown noted. FUNCTIONAL ACTIVITIES ASSESSMENT: Feeding: (I) to bring hand to mouth to simulate self-feeding tasks. Grooming: SBA to brush teeth and wash face standing within WWR at sink basin; forward lean on B UE supported on sink basin. SBA for kaia-care standing at toilet with WWR. UE Dressing: SBA to manage gown seated EOB. LE Dressing: SBA to don/doff socks seated in recliner; pt leans forward to don/doff socks; unable to do figure 4-method d/t sciatica. Toilet Transfer: SBA to stand at toilet with WWR to void. Urine continent. Functional Mobility: SBA supine > sit to EOB. SBA sit > stand from EOB with WWR; verbal cues for hand placement on bed to push up rather than on WWR. SBA to ambulate ~30 ft with WWR to simulatehousehold distances and improve functional endurance; forward lean noted and unsteady gait; pt reports he feels gait has improved from previous day. SBA to stand at toilet with WWR; verbal cues to kyle ng WWR in front. SBA to stabilize dynamic standing for ADL tasks at sink basin with WWR; forward lean with B UE supported on sink basin to complete tasks. SBA stand > sit to recliner with WWR; verbal cues to bring WWR with him until the back of his legs feel the recliner then to reach back for armrests. SBA to stabilize static and dynamic sitting balance for B UE ROM/MMT and cognitive screen. Positioning after tx: Pt seated upright in recliner. All lines intact. Call light and all items needed within reach. Chair alarm on. RN present to give medications. Patient/Family Education: OT POC, ADL, ROM, bed mobility, safe transfers, functional mobility, cognition Equipment needed at DC: To be determined (10/06/21819) A: Disabilities: Pt presents with decreased independence in ADLs, safety awareness, UE ROM and strength, safe transfers, functional mobility, functional cognition. Assessment: Pt would benefit from continued skilled therapy to address deficits listed above and toincrease overall independence in ADLs and functional mobility. EVALUATION COMPLEXITY: Low Complexity -These findings are based on patient's self reporting, therapist's objective findings and professional determinations. Recommend: Home with assistance;Home with supervision (10/06/21819) Recommendations were made on today's assessment. Additional recommendations will be based on patient's progress in therapy. P: OT to see patient: 2-5x/wk at bedside Treatment: OT to see patient for: ADL Training, Functional Mobility Training, UE ROM/Strengthening,Patient Education, Cognition/Perception Will continue therapy unless patient has a change in statusor patient is discharged from the facility. --Patient involved in goal setting: yes Patient goals will be found in the Care Plan section of the medical chart. Zone #: [id number] On weekends--please call [phone] TS ANALYST Associated attestation - Izzy Guzman Occupational Therapist - 10/06/2021 10:37 AM SPORTS ANALYST OT present for evaluation. I have reviewed & agree with all documentation entered by Ileana Alanis. Izzy Guzman, OT, MOTR/L [id number] * Treatment Plan - Rajiv Martin, RN - 10/06/2021 8:04 AM CST Stroke Team Chart Review CORE MEASURES CHECKLIST - AIS/TIA ED Arrival: 10/05/2021 4:49 PM: Taylor De Jesus, ( 1965), [id number] / CSN [id number] STROKE CORE CARE PERFORMANCE STATUS Review and address any outstanding core stroke care issues noted below (IN RED). An explanatory order or note should be written if the order or action is not being done. AHA/ASA Guidelines for Stroke Care STATUS Did pt receive tPA? *If no tPA was given, is reason for NOT administering documented by day 2? (required if NIH>0, LKW within treatment window) Not Indicated Procedures performed this visit: No admission procedures for hospital encounter. Risk Factors for Stroke Age>55, HTN, HLD, Diabetes, Obesity Dysphagia Screen Complete? YES VTE Prophylaxis Ordered by day 2? *Acceptable measures include SCD's, Lovenox, Heparin SQ, and Fondaparinux or Reason for not prescribing by MD Completed Antithrombotic by day 2 of hospitalization? *Acceptable medications include: Aggrenox, Plavix,Aspirin 81mg or 325mg, Lovenox 1mg/kg, Heparin gtt or Reason for not prescribing by MD NOTE: if pt is NPO, consider Aspirin Suppository Completed Hx or Current A-Fib? Anticoagulation:*If yes, acceptable medications to prescribe include: Argatroban, Arixtra, Coumadin, Xarelto, or Pradaxa INR (no units) Date Value 10/05/2021 1.1 no Lipid Panel Ordered within 48 hours (or <30 days [employer]IC)? Lab Results Component Value Date/Time LDLCALC 85 10/06/2021 05:16 AM If patient is on [employer]IC Statin or LDL= 70-99: *Best Practice per Stroke Guidelines: D/C on a statin. If patient has atherosclerosis or LDL >100: *Best Practice per Stroke Guidelines: If YES, discharge on high dose statin, which include: ?? Lipitor 40mg or 80mg ?? Crestor 20mg or 40mg ?? Or Reason for not prescribing documented by MD Completed Rehab Assessment COMPLETE? (PT/OT/ST) Completed Stroke Education COMPLETE? Completed Smoking cessation indicated? Non-smoker PHQ-9 COMPLETE? MD notified of score >/= 10 yes Score: 0 no Family Assessment Completed NIHSS to be performed at admission, q shift, and at discharge Admit: 0 24 hour: 0 Discharge: 0 The Stroke Team has reviewed this chart to ensure AHA/ASA stroke guideline compliance. The StrokeTeam will continue to follow, monitor, and assist with patient needs as appropriate through the duration of the hospitalization PO STATUS- MEDICATION ADMINISTRATION RECONCILIATION Please revise the medication administration mode (PO, NG, IV, IM, etc) based on the patients dysphagia status. PROBLEM LIST REVIEW Review and revise the Problem List (see below) if needed to reflect the patient's clinical status. Orders / Etiology Addressed? Medications sodium chloride flush injection 3 mL (3 mL IV Given 10/05/212319) aspirin (RAKAN CHEWABLE) chewable tablet 81 mg (81 mg Oral Given 10/06/2123) clopidogreL (PLAVIX) tablet 75 mg (has no administration in time range) atorvastatin (LIPITOR) tablet 80 mg (80 mg Oral Given 10/05/212033) sodium chloride flush injection 10 mL (10 mL IV Given 10/05/211903) METFORMIN CONSULT TO PHARMACY (has no administration in time range) amLODIPine (NORVASC) tablet 10 mg (10 mg Oral Given 10/05/212120) carvediloL (COREG) tablet 25 mg ( Oral Automatically Held 10/14/21 1700) amLODIPine (NORVASC) tablet 10 mg ( Oral Automatically Held 10/14/21 09) losartan-hydroCHLOROthiazide (HYZAAR) 100-12.5 mg per tablet 1 Tablet ( Oral Automatically Held 10/14/21 09) cephALEXin (KEFLEX) capsule 500 mg ( Oral Order Unhold 10/06/21 0457) pantoprazole (PROTONIX) tablet 40 mg (has no administration in time range) diclofenac sodium (VOLTAREN) tablet 75 mg ( Oral Held by Provider 10/06/21 0458) cyclobenzaprine (FLEXERIL) tablet 10 mg ( Oral Order Unhold 10/06/218) naloxone (NARCAN) 0.4 mg/mL injection 0.1 mg (has no administration in time range) acetaminophen (TYLENOL) tablet 650 mg (has no administration in time range) ondansetron (ZOFRAN ODT) tablet 4 mg (has no administration in time range) enoxaparin (LOVENOX) injection 70 mg (70 mg subCUT Given 10/06/21 06) dextrose 5% - sodium chloride 0.9% infusion (has no administration in time range) dextrose 50% (D50) syringe 12.5 Gram (has no administration in time range) dextrose 50% (D50) syringe 25 Gram (has no administration in time range) glucagon HCL 1 mg/mL injection 1 mg (has no administration in time range) insulin lispro (HumaLOG) injection 0-4 Units (has no administration in time range) cloNIDine HCL (CATAPRES) tablet 0.1 mg (has no administration in time range) clopidogreL (PLAVIX) tablet 300 mg (300 mg Oral Given 10/05/212034) iopamidoL (ISOVUE-300) 61% injection (drawn from multi-use bulk pack) 80 mL (80 mL IV Contrast Given 10/05/211903) sodium chloride 0.9% bolus solution 50 mL (0 mL IV Stopped 10/05/211944) Medications Prior to Admission Medication Sig Dispense Refill Last Dose ??? glipiZIDE (GLUCOTROL) 10 mg tablet Take 10 mg by mouth daily with breakfast. 10/05/2021 at Unknown time ??? metFORMIN (GLUCOPHAGE) 1,000 mg tablet Take 1,000 mg by mouth 2 times daily with meals. 10/05/2021 at Unknown time ??? rosuvastatin (CRESTOR) 20 mg tablet Take 20 mg by mouth daily. 10/05/2021 at Unknown time ??? cloNIDine HCL (CATAPRES) 0.1 mg tablet Take 0.1 mg by mouth 2 times daily. 10/05/2021 at Unknown time ??? pantoprazole (PROTONIX) 40 mg Tablet, Delayed Release (E.C.) Take 40 mg by mouth daily. 10/05/2021 at Unknown time ??? amLODIPine (NORVASC) 10 mg tablet Take 10 mg by mouth daily. 10/05/2021 at Unknown time ??? losartan-hydroCHLOROthiazide (HYZAAR) 100-12.5 mg tablet Take 1 Tablet by mouth daily. 10/05/2021t Unknown time ??? carvediloL (COREG) 25 mg tablet Take 25 mg by mouth 2 times daily with meals. 10/05/2021 at Unknown time ??? cyclobenzaprine (FLEXERIL) 10 mg tablet Take 10 mg by mouth 2 times daily as needed for Spasm. 10/04/2021 at Unknown time ??? diclofenac sodium (VOLTAREN) 75 mg Tablet, Delayed Release (E.C.) Take 75 mg by mouth 2 times daily as needed. 10/04/2021 at Unknown time ??? meclizine 25 mg Tablet, Chewable Take 25 mg by mouth every 6 hours. 10/05/2021 at Unknown time ??? cephALEXin (KEFLEX) 500 mg capsule Take 500 mg by mouth 4 times daily. 10/05/2021 at Unknown time Dysphagia Screen: 1. Is the [place] Coma Scale LESS than 13?: No (PASS) (10/05/211739) 2. Is there Facial Asymmetry/Weakness?: No (PASS) (10/05/211739) 3. Is there Tongue Asymmetry/Weakness?: No (PASS) (10/05/211739) 4. Is there Palatal Asymmetry/Weakness?: No (PASS) (10/05/211739) 5. Are there signs of aspiration during the 3 oz. water test?: No (PASS) (10/05/211739) Vitals: 10/05/21 2237 10/05/21 2313 10/06/21 0029 10/06/21 0550 BP: (!) 156/68 (!) 145/75 (!) 150/80 BP Location: Left arm Left arm Left arm Patient Position (BP): Supine Supine Supine Pulse: 67 70 70 Resp: 19 20 18 Temp: 98.3 ??F (36.8 ??C) 98 ??F (36.7 ??C) 98.2 ??F (36.8 ??C) TempSrc: Oral Oral Oral SpO2: 98% 99% 99% Weight: 131.5 kg (290 lb) 131.5 kg (290 lb) Height: 6' (1.829 m) 6' (1.829 m) NIHSS 10/05/2021 1740 10/05/2021 1935 10/05/2021 2230 Interval: Baseline Shift Shift 1a. Level of Consciousness: 0 0 0 1b. LOC Questions: 0 0 0 1c. LOC Commands: 0 0 0 2. Best Gaze: 0 0 0 3. Visual: 0 0 0 4. Facial Palsy: 0 0 0 5a. Motor Arm, Left: 0 0 0 5b. Motor Arm, Right: 0 0 0 6a. Motor Leg, Left: 0 0 0 6b. Motor Leg, Right: 0 0 0 7. Limb Ataxia: 0 0 0 8. Sensory: 0 0 0 9. Best Language: 0 0 0 10. Dysarthria: 0 0 0 11. Extinction and Inattention (formerly Neglect): 0 0 0 NIHSS (Total): 0 0 0 Lab Results Component Value Date/Time GLUCPOC 125 (H) 10/06/2021 04:50 AM GLUCOSE 148 (H) 10/06/2021 05:16 AM INR 1.1 10/05/2021 05:50 PM CREAT 0.72 10/06/2021 05:16 AM LDLCALC 85 10/06/2021 05:16 AM Social History Tobacco Use Smoking Status Never Smoker Smokeless Tobacco Not on file TS ANALYST documented in this encounter Plan of Treatment Scheduled Referrals Name Type Priority Associated Diagnoses Orde r Schedule AMB REFERRAL TO NEUROLOGY Outpatient Referral Routine Cerebrovascular accident (CVA), unspecified mechanism Ordered: 10/06/2021 documented as of this encounter Procedures Procedure Name Priority Date/Time Associated Diagnosis Comments TELEMETRY REPORT 10/11/2021 2:17 PM SPORTS ANALYST POC GLUCOSE Routine 10/07/2021 12:44 PM SPORTS ANALYST POC GLUCOSE Routine 10/07/2021 7:59 AM SPORTS ANALYST CBC WITHOUT DIFFERENTIAL Routine 10/07/2021 6:11 AM SPORTS ANALYST BASIC METABOLIC PANEL Routine 10/07/2021 6:11 AM SPORTS ANALYST POC GLUCOSE Routine 10/06/2021 11:12 PM SPORTS ANALYST POC GLUCOSE Routine 10/06/2021 5:51 PM SPORTS ANALYST ECHOCARDIOGRAM W/ CONTRAST AGENT Pending Discharge 10/06/2021 1:28 PM SPORTS ANALYST POC GLUCOSE Routine 10/06/2021 8:22 AM SPORTS ANALYST CBC WITHOUT DIFFERENTIAL Routine 10/06/2021 5:16 AM SPORTS ANALYST HEMOGLOBIN A1C Routine 10/06/2021 5:16 AM SPORTS ANALYST LIPID PANEL Routine 10/06/2021 5:16 AM SPORTS ANALYST BASIC METABOLIC PANEL Routine 10/06/2021 5:16 AM SPORTS ANALYST POC GLUCOSE Routine 10/06/2021 4:50 AM SPORTS ANALYST DIRECTOR COUNCIL ON AGING EVALUATE AND TREAT Routine 10/05/2021 10:44 PM SPORTS ANALYST CTA HEAD AND NECK W AND/OR WO CONTRAST Stat 10/05/2021 7:03 PM SPORTS ANALYST XR CHEST PA OR AP 1 VW Stat 10/05/2021 6:19 PM SPORTS ANALYST CBC WITH DIFFERENTIAL Stat 10/05/2021 5:50 PM SPORTS ANALYST PTT Stat 10/05/2021 5:50 PM SPORTS ANALYST PROTIME-INR Stat 10/05/2021 5:50 PM SPORTS ANALYST TSH Stat 10/05/2021 5:50 PM SPORTS ANALYST MAGNESIUM LEVEL Stat 10/05/2021 5:50 PM SPORTS ANALYST COMPREHENSIVE METABOLIC PANEL Stat 10/05/2021 5:50 PM SPORTS ANALYST EKG 12-LEAD Stat 10/05/2021 5:20 PM SPORTS ANALYST CRITICAL CARE Routine 10/05/2021 3:53 PM SPORTS ANALYST documented in this encounter Results * TELEMETRY REPORT (10/11/2021 2:17 PM SPORTS ANALYST) Provider Scanning ECG ORDERABLES * (ABNORMAL) POC GLUCOSE (10/07/2021 12:44 PM SPORTS ANALYST) GLUCOSE POC 208(H) 74 - 99 mg/dL 10/07/2021 12:44 PM SPORTS ANALYST [facility] SPECIMEN SOURCE, GLUCOSE POC Whole Blood 10/07/2021 12:44 PM SPORTS ANALYST [facility] Blood, whole 10/07/2021 12:4 4 PM SPORTS ANALYST 10/07/2021 3:45 PM SPORTS ANALYST Ina Collins MD [facility] Performing Organization Address [facility] Co de Phone Number [facility] [employer] [facility]# [id number] [address] [place] [address] * (ABNORMAL) POC GLUCOSE (10/07/2021 7:59 AM SPORTS ANALYST) GLUCOSE POC 169(H) 74 - 99 mg/dL 10/07/2021 7:59 AM SPORTS ANALYST [facility] SPECIMEN SOURCE, GLUCOSE POC Whole Blood 10/07/2021 7:59 AM SPORTS ANALYST [facility] Blood, whole 10/07/2021 7:59 AM SPORTS ANALYST 10/07/2021 8:57 AM SPORTS ANALYST Ina Collins MD POINT OF CARE T ESTING Performing Organization Address [facility]/ZIP Co de Phone Number [facility] [employer] [facility]# [id number] [address] [place] [address] * (ABNORMAL) BASIC METABOLIC PANEL (10/07/2021 6:11 AM SPORTS ANALYST) SODIUM 140 136 - 145 mmol/L 10/07/2021 7:29 AM SPORTS ANALYST [facility] POTASSIUM 4.2 3.5 - 5.0 mmol/L 10/07/2021 7:29 AM [facility] CHLORIDE 102 98 - 107 mmol/L 10/07/2021 7:29 AM [facility] CO2 23 22 - 29 mmol/L 10/07/2021 7:29 AM [facility] CALCIUM 9.8 8.6 - 10.2 mg/dL 10/07/2021 7:29 AM [facility] BUN 11 6 - 20 mg/dL 10/07/2021 7:29 AM [facility] . [facility] CREATININE 0.74 0.67 - 1.17 mg/dL 10/07/2021 7:29 AM [facility] GLUCOSE 183(H) 74 - 99 mg/dL 10/07/2021 7:29 AM [facility] . [facility] GFR >60 >=60 mL/min/1. 73 sq meter 10/07/2021 7:29 AM [facility] Comment: eGFR calculated with 2020 CKD-EPI equation. ??Vegetarian diet, extremely high or low muscle mass, and may affect results. ??Cystatin C with Glomerular Filtration Rate is a suitable alternative for these patients. The National Kidney Foundation and the [place] Society of Nephrology (NKF-ASN) recommends using the 2020 CKD Epidemiology Collaboration (CKD-EPI) equation to calculate estimated glomerular filtration rate (eGFR). This equation is only applicable to [place] adult patients and removes race as a variable. ??Due to the variation of creatinine in different conditions, they recommend use of confirmatory tests such as eGFR from cystatin C or creatinine-cystatin GFR estimating equations, or direct measurement of clearance of an exogenous filtration marker in critical clinical decisions including but not limited to drug dosing, surgery, chemotherapy, and transplant referral. ANION GAP 15 8 - 16 mmol/L 10/07/2021 7:29 AM [facility] Blood Venipuncture / Unknown 10/07/2021 6:11 AM SPORTS ANALYST 10/07/2021 6:22 AM SPORTS ANALYST Joey Barajas MD CHEMISTRY ORD ERABLES [employer]# [id number] [address] [place] [address] * (ABNORMAL) CBC WITHOUT DIFFERENTIAL (10/07/2021 6:11 AM SPORTS ANALYST) WBC 7.3 4.0 - 9.8 K/uL 10/07/2021 7:03 AM SPORTS ANALYST [facility] RBC 4.29(L) 4.50 - 5.40 M/uL 10/07/2021 7:03 AM [facility] HEMOGLOBIN 13.6 13.6 - 16.5 g/dL 10/07/2021 7:03 AM [facility] - . [facility] HEMATOCRIT 41.8 40.0 - 48.0 % 10/07/2021 7:03 AM [facility] - . [facility] MCV 97.4 82.0 - 99.0 fL 10/07/2021 7:03 AM [facility] - . [facility] MCH 31.7 27.2 - 32.6 pg 10/07/2021 7:03 AM SPORTS ANALYST [facility] - . [facility] MCHC 32.5 31.5 - 35.5 g/dL 10/07/2021 7:03 AM [facility] . [facility] PLATELETS 190 140 - 350 K/uL 10/07/2021 7:03 AM [facility] MPV 10.1 9.3 - 12.4 fL 10/07/2021 7:03 AM SPORTS ANALYST [facility] RDW 12.7 11.5 - 14.5 % 10/07/2021 7:03 AM SPORTS ANALYST [facility] - [facility] RDW-STDEV 45.1 37.1 - 48.7 fL 10/07/2021 7:03 AM SPORTS ANALYST [facility] . [facility] Blood Venipuncture / Unknown 10/07/2021 6:11 AM SPORTS ANALYST 10/07/2021 6:22 AM SPORTS ANALYST Joey Barajas MD HEMATOLOGY OR DERABLES Performing Organization Address City/[facility]/ZIP Co de Phone Number [facility]# [id number] [address] [place] [address] * (ABNORMAL) POC GLUCOSE (10/06/2021 11:12 PM SPORTS ANALYST) GLUCOSE POC 199(H) 74 - 99 mg/dL 10/06/2021 11:12 PM SPORTS ANALYST [facility] SPECIMEN SOURCE, GLUCOSE POC Whole Blood 10/06/2021 11:12 PM SPORTS ANALYST [facility] COMMENT, GLU POC Notified RN/MD 10/06/2021 11:12 PM SPORTS ANALYST [facility] Blood, whole 10/06/2021 11:1 2 PM SPORTS ANALYST 10/06/2021 11:21 PM SPORTS ANALYST Ina Collins MD POINT OF CARE T ESTING Performing Organization Address [facility]/ZIP Co de Phone Number [facility] [employer] [facility]# [id number] [address] [place] [address] * (ABNORMAL) POC GLUCOSE (10/06/2021 5:51 PM SPORTS ANALYST) GLUCOSE POC 219(H) 74 - 99 mg/dL 10/06/2021 5:51 PM SPORTS ANALYST [facility] SPECIMEN SOURCE, GLUCOSE POC Whole Blood 10/06/2021 5:51 PM SPORTS ANALYST [facility] COMMENT, GLU POC Notified RN/MD 10/06/2021 5:51 PM SPORTS ANALYST [facility] Blood, whole 10/06/2021 5:51 PM SPORTS ANALYST 10/06/2021 5:59 PM SPORTS ANALYST Ina Collins MD POINT OF CARE T ESTING Performing Organization Address City/[facility]/ZIP Co de Phone Number [facility]# [id number] [address] [place] [id number] * ECHOCARDIOGRAM W/ CONTRAST AGENT (10/06/2021 1:28 PM SPORTS ANALYST) EJECTION FRACTION 60 INTERFACE SYSTEM 10/06/2021 12:1 0 PM SPORTS ANALYST Narrative INTERFACE SYSTEM - 10/06/2021 4:06 PM SPORTS ANALYST -- [address] [address] [place] [email or web address] -- Transthoracic Echocardiography -- Patient: ?Taylor De Jesus: ?[id number] Study ID: ? [id number] Gender: ? M : ?1965 Age: ?56 Race: ? CAU Height ?182.9cm Study Date: ? 10/06/2021 Weight: ? 131.5kg Access. #: ?[id number] Account #: ?[id number] BP: -- -- *Referring Physician:* Vanessa Smith *Ordering Physician:* ??Vanessa Smith Print Shop Manager: match marker: Nurse: -- Indications: Stroke / TIA. STUDY CONCLUSIONS: SUMMARY: -- - Left ventricle: The cavity size was normal. Wall thickness was normal. ??Global systolic function was normal. The estimated ejection fraction was ??60%. - Aortic valve: Not well visualized. Trileaflet; moderately thickened, ??moderately calcified leaflets. There was moderate to severe stenosis. The ??mean systolic gradient is 17mm Hg. The peak systolic gradient is 32mm Hg. ??The valve area by the velocity-time integral method is 1.1cm^2. - Left atrium: The atrium was normal in size. - Right ventricle: The cavity size was normal. Systolic function was normal. - Atrial septum: Agitated saline contrast study shows no [id number] shunt. -- Cardiac Anatomy: LEFT VENTRICLE: ??The cavity size was normal. Wall thickness was normal. Global systolic function was normal. The estimated ejection fraction was 60%. Diastolic function assessment consistent with abnormal left ventricular relaxation (grade 1 diastolic dysfunction). AORTIC VALVE: ??Not well visualized. ??Trileaflet; moderately thickened, moderately calcified leaflets. ??Doppler: ?? There was moderate to severe stenosis. ?No significant regurgitation. ?The LVOT to aortic valve VTI ratio is 0.35. The valve area by the velocity-time integral method is 1.1cm^2. The valve area index by the velocity-time integral method is 0.44cm^2/m^2. The ratio of LVOT to aortic valve peak velocity is 0.33. The valve area by the peak velocity method is 1.1cm^2. The valve area index by the peak velocity method is 0.42cm^2/m^2. ?The mean systolic gradient is 17mm Hg. The peak systolic gradient is 32mm Hg. AORTA: ??Aortic root: The aortic root was normal in size. MITRAL VALVE: ?? Structurally normal valve. ?Doppler: ?? No significant regurgitation. LEFT ATRIUM: ??The atrium was normal in size. ATRIAL SEPTUM: ?? Agitated saline contrast study shows no pfcvo-[id number] shunt. RIGHT VENTRICLE: ??The cavity size was normal. Systolic function was normal. PULMONIC VALVE: ?? Structurally normal valve. ?Doppler: ?? No significant regurgitation. The mean systolic gradient is 3mm Hg. The peak systolic gradient is 6mm Hg. TRICUSPID VALVE: ?? Structurally normal valve. ?Doppler: ?? No significant regurgitation. RIGHT ATRIUM: ??The atrium was normal in size. PERICARDIUM: ??There was no pericardial effusion. Systemic veins: Inferior vena cava: The vessel was normal in size. Measurements -- -- Left ventricle ?Value ?Ref CESAR, LAX ? (L) ?3.8 ?? cm ? 4.2 - 5.8 CESAR/bsa, LAX ? (L) ?1.5 ?? cm/m^2 ?? 2.2 - 3.0 CESAR, LAX chord ? (N) ?4.9 ?? cm ? 4.2 - 5.8 ESD, LAX chord ? (N) ?3.8 ?? cm ? 2.5 - 4.0 PW, ED ? (H) ?1.6 ?? cm ? 0.6 - 1.0 SV ?62 ?ml ? --------- SV/bsa ?25 ?ml/m^2 ?? --------- EDV, 2-p ? (H) ?161 ?? ml ? 62 - 150 ESV, 2-p ? (N) ?52 ?ml ? 21 - 61 EF, 2-p ?(N) ?68 ?% ?52 - 72 SV, 2-p ? 109 ?? ml ? --------- EDV/bsa, 2-p ? (N) ?64 ?ml/m^2 ?? 34 - 74 ESV/bsa, 2-p ? (N) ?21 ?ml/m^2 ?? 11 - 31 SV/bsa, 2-p ? 43.6 ??ml/m^2 ?? --------- E', lat jamie, TDI ? (L) ?5.3 ?? cm/sec ?? >=10.0 E/e', lat jamie, TDI ?11 ? --------- E', med jamie, TDI ? (L) ?6.6 ?? cm/sec ?? >=7.0 E/e', med jamie, TDI ?9 ?--------- E', avg, TDI ?6.0 ?? cm/sec ?? --------- E/e', avg, TDI ? (N) ?10 ? <=14 LVOT ?Value ?Ref Diam, S ? 2.0 ?? cm ? --------- Area ?3.1 ?? cm^2 ? --------- Peak fe, S ? 0.95 ??m/sec ?--------- VTI, S ?19.8 ??cm ? --------- Ventricular septum ?Value ?Ref IVS, ED ?(H) ?1.5 ?? cm ? 0.6 - 1.0 Right ventricle ? Value ?Ref CESAR minor ax, A4C base (N) ?2.7 ?? cm ? 2.5 - 4.1 RVOT ?Value ?Ref Peak grad, S ?3 ? mm Hg ?--------- Left atrium ? Value ?Ref AP dim, ES ? (H) ?4.8 ?? cm ? 3.0 - 4.0 AP dim index ? (N) ?1.9 ?? cm/m^2 ?? 1.5 - 2.3 Vol, ES, 2-p ?74 ?ml ? --------- Vol/bsa, ES, 2-p ? (N) ?29 ?ml/m^2 ?? 16 - 34 Right atrium ?Value ?Ref Area, ES, A4C ?(H) ?20 ?cm^2 ? 10 - 18 Vol, ES, 1-p A4C ?54 ?ml ? --------- Vol/bsa, ES, 1-p A4C ?? (N) ?21 ?ml/m^2 ?? 11 - 39 Aortic valve ?Value ?Ref Peak v, S ? 2.9 ?? m/sec ?--------- VTI, S ?57.2 ??cm ? --------- Mean grad, S ?17 ?mm Hg ?--------- Peak grad, S ?32 ?mm Hg ?--------- LVOT/AV, VTI ratio ?0.35 ? --------- JAYLAN, VTI ?1.1 ?? cm^2 ? --------- JAYLAN/bsa, VTI ?0.44 ??cm^2/m^2 --------- AR PHT ?395 ?? ms ? --------- Mitral valve ?Value ?Ref Peak E ?0.6 ?? m/sec ?--------- Peak A ?0.78 ??m/sec ?--------- Decel time ?259 ?? ms ? --------- Peak E/A ratio ?0.8 ?--------- Pulmonic valve ?Value ?Ref Peak v, S ? 1.27 ??m/sec ?--------- Mean grad, S ?3 ? mm Hg ?--------- Peak grad, S ?6 ? mm Hg ?--------- Aortic root ? Value ?Ref Root diam, S ?2.7 ?? cm ? --------- -- -- Legend: (L) ??and ??(H) ??timothy values outside specified reference range. (N) ??vernon values inside specified reference range. Procedure data: Procedure information: ??Transthoracic echocardiography. The study was technically limited. Scanning was performed from the parasternal, apical, and subcostal acoustic windows. ?Transthoracic echocardiography. ??Complete 2D, complete spectral Doppler, and color Doppler. ??Birthdate: ??Patient birthdate: 1965. ??Age: ??Patient is 56yr old. ??Sex: ?? gender: male. Height: ??182.9cm. 72in. ??Weight: ??131.5kg. 289.4lb. ??Body mass index: 39.3kg/m^2. ??Body surface area: ?2.5m^2. ??Study date: ??Study date: 10/06/2021. Study time: 12:10 PM. ?Prepared and Electronically Authenticated Robert Raza [id number] Procedure Note Robert Raza MD - 10/06/2021 -- [address] [address] [email or web address] -- Transthoracic Echocardiography -- Patient: Taylor De Jesus Study ID: [id number] Gender: M :1965 Age: 56 Race: [facility] [id number] Study Date:10/06/2021 Weight:131.5kg Access. #:[id number] BP: -- -- *Referring Physician:Vanessa Michel *Ordering Physician:Vanessa Michel Print Shop Manager: match marker: Nurse: -- Indications: Stroke / TIA. STUDY CONCLUSIONS: SUMMARY: -- - Left ventricle: The cavity size was normal. Wall thickness was normal. Global systolic function was normal. The estimated ejection fractionwas 60%. - Aortic valve: Not well visualized. Trileaflet; moderately thickened, moderately calcified leaflets. There was moderate to severe stenosis.The mean systolic gradient is 17mm Hg. The peak systolic gradient is 32mmHg. The valve area by the velocity-time integral method is 1.1cm^2. - Left atrium: The atrium was normal in size. - Right ventricle: The cavity size was normal. Systolic function wasnormal. - Atrial septum: Agitated saline contrast study shows no [id number]. -- Cardiac Anatomy: LEFT VENTRICLE: The cavity size was normal. Wall thickness was normal.Global systolic function was normal. The estimated ejection fraction was 60%. Diastolic function assessment consistent with abnormal left ventricular relaxation (grade 1 diastolic dysfunction). AORTIC VALVE: Not well visualized. Trileaflet; moderately thickened, moderately calcified leaflets. Doppler: There was moderate to severe stenosis. No significant regurgitation. The LVOT to aortic valveVTI ratio is 0.35. The valve area by the velocity-time integral method is1.1cm^2. The valve area index by the velocity-time integral method is 0.44cm^2/m^2.The ratio of LVOT to aortic valve peak velocity is 0.33. The valve area bythe peak velocity method is 1.1cm^2. The valve area index by the peakvelocity method is 0.42cm^2/m^2. The mean systolic gradient is 17mm Hg. Thepeak systolic gradient is 32mm Hg. AORTA: Aortic root: The aortic root was normal in size. MITRAL VALVE: Structurally normal valve. Doppler: No significant regurgitation. LEFT ATRIUM: The atrium was normal in size. ATRIAL SEPTUM: Agitated saline contrast study shows no [id number]. RIGHT VENTRICLE: The cavity size was normal. Systolic function wasnormal. PULMONIC VALVE: Structurally normal valve. Doppler: Nosignificant regurgitation. The mean systolic gradient is 3mm Hg. The peak systolic gradient is 6mm Hg. TRICUSPID VALVE: Structurally normal valve. Doppler: Nosignificant regurgitation. RIGHT ATRIUM: The atrium was normal in size. PERICARDIUM: There was no pericardial effusion. Systemic veins: Inferior vena cava: The vessel was normal in size. Measurements -- -- Left ventricle Value Ref CESAR, LAX (L) 3.8 cm 4.2 - 5.8 CESAR/bsa, LAX (L) 1.5 cm/m^2 2.2 - 3.0 CESAR, LAX chord (N) 4.9 cm 4.2 - 5.8 ESD, LAX chord (N) 3.8 cm 2.5 - 4.0 PW, ED (H) 1.6 cm 0.6 - 1.0 SV 62 ml --------- SV/bsa 25 ml/m^2 --------- EDV, 2-p (H) 161 ml 62 - 150 ESV, 2-p (N) 52 ml 21 - 61 EF, 2-p (N) 68 % 52 - 72 SV, 2-p 109 ml --------- EDV/bsa, 2-p (N) 64 ml/m^2 34 - 74 ESV/bsa, 2-p (N) 21 ml/m^2 11 - 31 SV/bsa, 2-p 43.6 ml/m^2 --------- E', lat jamie, TDI (L) 5.3 cm/sec >=10.0 E/e', lat jamie, TDI 11 --------- E', med jamie, TDI (L) 6.6 cm/sec >=7.0 E/e', med jamie, TDI 9 --------- E', avg, TDI 6.0 cm/sec --------- E/e', avg, TDI (N) 10 <=14 LVOT Value Ref Diam, S 2.0 cm --------- Area 3.1 cm^2 --------- Peak fe, S 0.95 m/sec --------- VTI, S 19.8 cm --------- Ventricular septum Value Ref IVS, ED (H) 1.5 cm 0.6 - 1.0 Right ventricle Value Ref CESAR minor ax, A4C base (N) 2.7 cm 2.5 - 4.1 RVOT Value Ref Peak grad, S 3 mm Hg --------- Left atrium Value Ref AP dim, ES (H) 4.8 cm 3.0 - 4.0 AP dim index (N) 1.9 cm/m^2 1.5 - 2.3 Vol, ES, 2-p 74 ml --------- Vol/bsa, ES, 2-p (N) 29 ml/m^2 16 - 34 Right atrium Value Ref Area, ES, A4C (H) 20 cm^2 10 - 18 Vol, ES, 1-p A4C 54 ml --------- Vol/bsa, ES, 1-p A4C (N) 21 ml/m^2 11 - 39 Aortic valve Value Ref Peak v, S 2.9 m/sec --------- VTI, S 57.2 cm --------- Mean grad, S 17 mm Hg --------- Peak grad, S 32 mm Hg --------- LVOT/AV, VTI ratio 0.35 --------- JAYLAN, VTI 1.1 cm^2 --------- JAYLAN/bsa, VTI 0.44 cm^2/m^2 --------- AR PHT 395 ms --------- Mitral valve Value Ref Peak E 0.6 m/sec --------- Peak A 0.78 m/sec --------- Decel time 259 ms --------- Peak E/A ratio 0.8 --------- Pulmonic valve Value Ref Peak v, S 1.27 m/sec --------- Mean grad, S 3 mm Hg --------- Peak grad, S 6 mm Hg --------- Aortic root Value Ref Root diam, S 2.7 cm --------- -- -- Legend: (L) and (H) timothy values outside specified reference range. (N) vernon values inside specified reference range. Procedure data: Procedure information: Transthoracic echocardiography. The study was technically limited. Scanning was performed from the parasternal, apical,and subcostal acoustic windows. Transthoracic echocardiography.Complete 2D, complete spectral Doppler, and color Doppler. Birthdate: Patient birthdate: 1965. Age: Patient is 56yr old. Sex: gender:male. Height: 182.9cm. 72in. Weight: 131.5kg. 289.4lb. Body mass index: 39.3kg/m^2. Body surface area: 2.5m^2. Study date: Study date: 10/06/2021. Study time: 12:10 PM. Prepared and Electronically Authenticated Ry Robert Sharif [id number]:10 Vanessa Smith MD ORDERABLES INTERFACE SYSTEM Refer to clinic/hospital department * (ABNORMAL) POC GLUCOSE (10/06/2021 8:22 AM SPORTS ANALYST) GLUCOSE POC 164(H) 74 - 99 mg/dL 10/06/2021 8:22 AM SPORTS ANALYST [facility] SPECIMEN SOURCE, GLUCOSE POC Whole Blood 10/06/2021 8:22 AM SPORTS ANALYST [facility] COMMENT, GLU POC Notified RN/MD 10/06/2021 8:22 AM SPORTS ANALYST [facility] [employer] [facility] Blood, whole 10/06/2021 8:22 AM SPORTS ANALYST 10/06/2021 9:50 AM SPORTS ANALYST Jesús Delgado MD POINT OF CARE TESTIN G [facility] [employer] [facility] CLIA# [id number] [address] [place] [address] * (ABNORMAL) BASIC METABOLIC PANEL (10/06/2021 5:16 AM SPORTS ANALYST) [facility] SODIUM 139 136 - 145 mmol/L 10/06/2021 6:14 AM [facility] [employer] LABORATORY SERVICES - [facility] POTASSIUM 3.9 3.5 - 5.0 mmol/L 10/06/2021 6:14 AM [facility] [employer] LABORATORY [facility] - . [place] CHLORIDE 101 98 - 107 mmol/L 10/06/2021 6:14 AM [facility] [employer] LABORATORY SERVICES - . [place] CO2 25 22 - 29 mmol/L 10/06/2021 6:14 AM [facility] [employer] [facility] - . [facility] CALCIUM 9.8 8.6 - 10.2 mg/dL 10/06/2021 6:14 AM [facility] [employer] LABORAT[facility] - . [facility] BUN 11 6 - 20 mg/dL 10/06/2021 6:14 AM [facility] [employer] LABORAT[facility]. [facility] CREATININE 0.72 0.67 - 1.17 mg/dL 10/06/2021 6:14 AM [facility] [employer] [facility]. [facility] GLUCOSE 148(H) 74 - 99 mg/dL 10/06/2021 6:14 AM [facility] [employer] [facility]. [facility] GFR >60 >=60 mL/min/1. 73 sq meter 10/06/2021 6:14 AM [facility] [employer] [facility] Comment: eGFR calculated with 2020 CKD-EPI equation. ??Vegetarian diet, extremely high or low muscle mass, and may affect results. ??Cystatin C with Glomerular Filtration Rate is a suitable alternative for these patients. The National Kidney Foundation and the [place] Society of Nephrology (NKF-ASN) recommends using the 2020 CKD Epidemiology Collaboration (CKD-EPI) equation to calculate estimated glomerular filtration rate (eGFR). This equation is only applicable to [place] adult patients and removes race as a variable. ??Due to the variation of creatinine in different conditions, they recommend use of confirmatory tests such as eGFR from cystatin C or creatinine-cystatin GFR estimating equations, or direct measurement of clearance of an exogenous filtration marker in critical clinical decisions including but not limited to drug dosing, surgery, chemotherapy, and transplant referral. ANION GAP 13 8 - 16 mmol/L 10/06/2021 6:14 AM [facility] [employer] [facility] Blood Venipuncture / Unknown 10/06/2021 5:16 AM SPORTS ANALYST 10/06/2021 5:26 AM SPORTS ANALYST Joey Barajas MD CHEMISTRY ORD ERABLES [employer] SERVICES - [facility] CLIA# [id number] [address] [facility] [place] [address] * (ABNORMAL) CBC WITHOUT DIFFERENTIAL (10/06/2021 5:16 AM SPORTS ANALYST) [facility] WBC 8.0 4.0 - 9.8 K/uL 10/06/2021 5:42 AM SPORTS ANALYST [employer] SERVICES - . [facility] RBC 4.24(L) 4.50 - 5.40 M/uL 10/06/2021 5:42 AM [facility] [employer] - . [facility] HEMOGLOBIN 14.2 13.6 - 16.5 g/dL 10/06/2021 5:42 AM [facility] [employer] - [facility] HEMATOCRIT 41.9 40.0 - 48.0 % 10/06/2021 5:42 AM [facility] [employer] [facility] - . [facility] MCV 98.8 82.0 - 99.0 fL 10/06/2021 5:42 AM [facility] [employer] - . [facility] MCH 33.5(H) 27.2 - 32.6 pg 10/06/2021 5:42 AM [facility] [employer] - . [facility] MCHC 33.9 31.5 - 35.5 g/dL 10/06/2021 5:42 AM [facility] [employer] - . [facility] PLATELETS 178 140 - 350 K/uL 10/06/2021 5:42 AM SPORTS ANALYST [employer] - . [facility] MPV 10.0 9.3 - 12.4 fL 10/06/2021 5:42 AM SPORTS ANALYST [employer] - [facility] RDW 12.7 11.5 - 14.5 % 10/06/2021 5:42 AM [employer] - . [facility] RDW-STDEV 46.5 37.1 - 48.7 fL 10/06/2021 5:42 AM SPORTS ANALYST [employer] - [facility] Blood Venipuncture / Unknown 10/06/2021 5:16 AM SPORTS ANALYST 10/06/2021 5:26 AM SPORTS ANALYST Joey Barajas MD HEMATOLOGY OR DERABLES [facility] [employer] [facility]# [id number] [address] [place] [address] * (ABNORMAL) HEMOGLOBIN A1C (10/06/2021 5:16 AM SPORTS ANALYST) HEMOGLOBIN A1C 7.1(H) <5.7 % 10/06/2021 6:02 AM SPORTS ANALYST [employer] SERVICES [facility] EST. AVG GLUCOSE, A1C 157 mg/dL 10/06/2021 6:02 AM SPORTS ANALYST [employer] [facility] Blood Venipuncture / Unknown 10/06/2021 5:16 AM SPORTS ANALYST 10/06/2021 5:26 AM SPORTS ANALYST Narrative [facility] - 10/06/2021 6:02 AM SPORTS ANALYST HGB A1C INTERPRETATION NORMAL: ? <5.7% PRE-DIABETES: 5.7 - 6.4% DIABETES: ? 6.5% OR GREATER Vaishali Wilson NP CHEMISTRY ORDERABLES Performing Organization Address City/[facility]/ZIP Co de Phone Number [facility] [employer] [facility]# [id number] [address] [place] [address] * (ABNORMAL) LIPID PANEL (10/06/2021 5:16 AM SPORTS ANALYST) CHOLESTEROL 166 <200 mg/dL 10/06/2021 6:14 AM SPORTS ANALYST [employer] LABORAT[facility] SERVICES [facility] TRIGLYCERIDE 254(H) <150 mg/dL 10/06/2021 6:14 AM SPORTS ANALYST [employer] [facility] HDL 30(L) 40 - 59 mg/dL 10/06/2021 6:14 AM SPORTS ANALYST [employer] [facility] LDL CALCULATED 85 <100 mg/dL 10/06/2021 6:14 AM SPORTS ANALYST [employer] [facility] NON-HDL CHOLESTEROL 136(H) <130 mg/dL 10/06/2021 6:14 AM [facility] [employer] [facility] Blood Venipuncture / Unknown 10/06/2021 5:16 AM SPORTS ANALYST 10/06/2021 5:26 AM SPORTS ANALYST [facility] [employer] [facility] - 10/06/2021 6:14 AM SPORTS ANALYST TOTAL CHOLESTEROL ??mg/dL ??Desirable <200 ??Borderline high [...] for Lipid Panels (NCEP/AMA) . Vaishali Wilson NP CHEMISTRY ORDERABLES [facility] [employer] [facility]# [id number] [address] [facility] [place] [address] * (ABNORMAL) POC GLUCOSE (10/06/2021 4:50 AM SPORTS ANALYST) GLUCOSE POC 125(H) 74 - 99 mg/dL 10/06/2021 4:50 AM [facility] [employer] [facility] SPECIMEN SOURCE, GLUCOSE POC Whole Blood 10/06/2021 4:50 AM [facility] [employer] [facility] Blood, whole 10/06/2021 4:50 AM SPORTS ANALYST 10/06/2021 5:16 AM SPORTS ANALYST Jesús Delgado MD POINT OF CARE TESTIN Katherine [facility] [id number] [address] [place] [address] * CTA HEAD AND NECK W AND/OR WO CONTRAST (10/05/2021 7:03 PM SPORTS ANALYST) Anatomical Region Laterality Modality Head Computed Tomogra phy 10/05/2021 7:05 PM SPORTS ANALYST Impressions 10/05/2021 7:20 PM SPORTS ANALYST IMPRESSION: 1. Non-contrast head CT demonstrates no acute intracranial hemorrhage. Acute ischemic infarct in the left lateral medulla seen on the prior brain MRI is not visible by CT. 2. CTA of the neck demonstrates no acute abnormality. No high-grade ICA stenosis. 3. CTA of the head demonstrates no arterial occlusion or high grade stenosis. Moderate focal stenosis of the left P2 OCCUPATIONAL THERAPY CO DIRECTOR segment. DICTATION LOCATION: Location 1 - [facility] Narrative 10/05/2021 7:20 PM SPORTS ANALYST EXAMINATION: COMPUTED TOMOGRAPHY ANGIOGRAPHY (CTA) OF THE HEAD AND NECK WITH AND WITHOUT IV CONTRAST ?? DATE: 10/05/2021 7:03 PM HISTORY: Stroke. Dizziness. TECHNIQUE: Rapid LVO Detection Software utilized. Noncontrast head CT was obtained. CTA was obtained from the aortic arch to the vertex following the uneventful administration of intravenous contrast. 3D images were generated on a dedicated workstation. The examination was performed with the adjustment of mA according to the patient size and/or the use of Iterative Reconstruction Technique. ?? Contrast information: 80 mL Isovue-300 COMPARISON: Brain MR same day. FINDINGS: NECK: Aortic arch and great vessels: Mild atherosclerotic plaque affects the aortic arch. Proximal great vessels are smooth and nonstenotic. Right carotid: Normal RCCA. Calcified atherosclerotic plaque at the bifurcation, with less than 40% ICA origin luminal narrowing by NASCET criteria. Normal distal cervical ICA. Left carotid: Normal LCCA. Calcified atherosclerotic plaque at the bifurcation, with less than 40% ICA origin luminal narrowing by NASCET criteria. Normal distal cervical ICA. Right vertebral artery: Normal. Left vertebral artery: No acute abnormality. Small amount of mural atherosclerotic calcification noted in the mid cervical region and distally. Vertebral dominance: Codominant vertebral arteries. Visualized soft tissues of the neck: Unremarkable. HEAD: Non-contrast head: No midline shift or mass effect. No acute intracranial hemorrhage. Normal ventricular size. Acute ischemic lacunar infarct in the left lateral medulla, seen on same-day brain MRI, is not visible by CT. Internal carotid arteries: Mural atherosclerotic calcifications without luminal narrowing. Anterior cerebral arteries: Normal. Middle cerebral arteries: Normal. Anterior communicating artery: Present. Posterior communicating arteries: Not well visualized. ?? Vertebral arteries: Normal intracranial vertebral artery segments. Basilar artery: Normal. Posterior cerebral arteries: Moderate focal stenosis of the left P2 OCCUPATIONAL THERAPY CO DIRECTOR segment. Normal right OCCUPATIONAL THERAPY CO DIRECTOR. No evidence of aneurysm or vascular malformation. No evidence of dural venous sinus thrombosis. INCIDENTAL FINDINGS: ??None. Procedure Note Cortez Gilliam MD - 10/05/2021 EXAMINATION: COMPUTED TOMOGRAPHY ANGIOGRAPHY (CTA) OF THE HEAD AND NECK WITH AND WITHOUT IV CONTRAST DATE: 10/05/2021 7:03 PM HISTORY: Stroke. Dizziness. TECHNIQUE: Rapid LVO Detection Software utilized. Noncontrast head CT was obtained. CTA was obtained from the aortic arch to the vertex following the uneventful administration of intravenous contrast. 3D images were generated on a dedicated workstation. The examination was performed with the adjustment of mA according to the patient size and/or the use of Iterative Reconstruction Technique. Contrast information: 80 mL Isovue-300 COMPARISON: Brain MR same day. FINDINGS: NECK: Aortic arch and great vessels: Mild atherosclerotic plaque affects the aortic arch. Proximal great vessels are smooth and nonstenotic. Right carotid: Normal RCCA. Calcified atherosclerotic plaque at the bifurcation, with less than 40% ICA origin luminal narrowing by NASCET criteria. Normal distal cervical ICA. Left carotid: Normal LCCA. Calcified atherosclerotic plaque at the bifurcation, with less than 40% ICA origin luminal narrowing by NASCET criteria. Normal distal cervical ICA. Right vertebral artery: Normal. Left vertebral artery: No acute abnormality. Small amount of mural atherosclerotic calcification noted in the mid cervical region and distally. Vertebral dominance: Codominant vertebral arteries. Visualized soft tissues of the neck: Unremarkable. HEAD: Non-contrast head: No midline shift or mass effect. No acute intracranial hemorrhage. Normal ventricular size. Acute ischemic lacunar infarct in the left lateral medulla, seen on same-day brain MRI, is not visible by CT. Internal carotid arteries: Mural atherosclerotic calcifications without luminal narrowing. Anterior cerebral arteries: Normal. Middle cerebral arteries: Normal. Anterior communicating artery: Present. Posterior communicating arteries: Not well visualized. Vertebral arteries: Normal intracranial vertebral artery segments. Basilar artery: Normal. Posterior cerebral arteries: Moderate focal stenosis of the left P2 OCCUPATIONAL THERAPY CO DIRECTOR segment. Normal right OCCUPATIONAL THERAPY CO DIRECTOR. No evidence of aneurysm or vascular malformation. No evidence of dural venous sinus thrombosis. INCIDENTAL FINDINGS: None. IMPRESSION: 1. Non-contrast head CT demonstrates no acute intracranial hemorrhage. Acute ischemic infarct in the left lateral medulla seen on the prior brain MRI is not visible by CT. 2. CTA of the neck demonstrates no acute abnormality. No high-grade ICA stenosis. 3. CTA of the head demonstrates no arterial occlusion or high grade stenosis. Moderate focal stenosis of the left P2 OCCUPATIONAL THERAPY CO DIRECTOR segment. DICTATION LOCATION: [address] Joey Barajas MD CT ORDERABLES * XR CHEST PA OR AP 1 VW (10/05/2021 6:19 PM SPORTS ANALYST) Anatomical Region Laterality Modality Chest Computed Radiogr aphy 10/05/2021 6:20 PM SPORTS ANALYST Impressions 10/05/2021 6:29 PM SPORTS ANALYST IMPRESSION: Clear lungs. DICTATION LOCATION: [address] Narrative 10/05/2021 6:29 PM SPORTS ANALYST XR CHEST PA OR AP 1 VW DATE: 10/05/2021 6:19 PM HISTORY: Altered mental status COMPARISON: No prior FINDINGS: The lungs are clear. There are no pleural abnormalities. Cardiomediastinal silhouette is normal in width and contour. Osseous structures are unremarkable. Procedure Note Nura Trent MD - 10/05/2021 XR CHEST PA OR AP 1 VW DATE: 10/05/2021 6:19 PM HISTORY: Altered mental status COMPARISON: No prior FINDINGS: The lungs are clear. There are no pleural abnormalities. Cardiomediastinal silhouette is normal in width and contour. Osseous structures are unremarkable. IMPRESSION: Clear lungs. DICTATION LOCATION: [address] Joey Barajas MD DIAGNOSTIC IM AGING ORDERABLES * MAGNESIUM LEVEL (10/05/2021 5:50 PM SPORTS ANALYST) MAGNESIUM 1.7 1.6 - 2.6 mg/dL 10/05/2021 6:39 PM SPORTS ANALYST [facility] Blood Venipuncture / Unknown 10/05/2021 5:50 PM SPORTS ANALYST 10/05/2021 5:54 PM SPORTS ANALYST Joey Barajas MD CHEMISTRY ORD ERABLES [facility] CLIA# [id number] [address] [place] [address] * TSH (10/05/2021 5:50 PM SPORTS ANALYST) Pathologist [facility] TSH 0.63 0.27 - 4.20 uIU/mL 10/05/2021 6:45 PM SPORTS ANALYST [employer] [facility]ORAT[facility] Blood Venipuncture / Unknown 10/05/2021 5:50 PM SPORTS ANALYST 10/05/2021 5:54 PM SPORTS ANALYST Joey Barajas MD CHEMISTRY ORD ERABLES [facility] [employer] [facility]# [id number] [address] [place] [address] * (ABNORMAL) COMPREHENSIVE METABOLIC PANEL (10/05/2021 5:50 PM SPORTS ANALYST) Pathologist [facility] SODIUM 139 136 - 145 mmol/L 10/05/2021 6:39 PM SPORTS ANALYST [employer] LABORATORY SERVICES - [facility] POTASSIUM 4.1 3.5 - 5.0 mmol/L 10/05/2021 6:39 PM SPORTS ANALYST [employer] LABORATORY SERVICES - . [facility] CHLORIDE 100 98 - 107 mmol/L 10/05/2021 6:39 PM SPORTS ANALYST [employer] LABORAT[facility] SERVICES - . [facility] CO2 27 22 - 29 mmol/L 10/05/2021 6:39 PM SPORTS ANALYST [employer] LABORATORY SERVICES - [facility] CALCIUM 10.4(H) 8.6 - 10.2 mg/dL 10/05/2021 6:39 PM [facility] [employer] LABORATORY SERVICES - . [facility] BUN 13 6 - 20 mg/dL 10/05/2021 6:39 PM [facility] SERVICES - . [place] CREATININE 0.72 0.67 - 1.17 mg/dL 10/05/2021 6:39 PM [facility] - . [place] GLUCOSE 131(H) 74 - 99 mg/dL 10/05/2021 6:39 PM [facility] TOTAL PROTEIN 8.1 6.7 - 8.6 g/dL 10/05/2021 6:39 PM [facility] [employer] LABORATORY SERVICES - [facility] ALBUMIN 4.4 3.5 - 5.2 g/dL 10/05/2021 6:39 PM [facility] - . [place] BILIRUBIN TOTAL 0.9 0.3 - 1.2 mg/dL 10/05/2021 6:39 PM [facility] [employer] LABORATORY SERVICES - . [facility] ALKALINE PHOSPHATASE 88 40 - 129 U/L 10/05/2021 6:39 PM [facility] [employer] LABORATORY SERVICES - . [place] AST 34 <41 U/L 10/05/2021 6:39 PM [facility] [employer] LABORATORY SERVICES - . [place] ALT 42(H) <42 U/L 10/05/2021 6:39 PM [facility] [employer] LABORATORY SERVICES - . [place] GFR >60 >=60 mL/min/1. 73 sq meter 10/05/2021 6:39 PM [facility] [employer] LABORATORY SERVICES - . [place] Comment: eGFR calculated with 2020 CKD-EPI equation. ??Vegetarian diet, extremely high or low muscle mass, and may affect results. ??Cystatin C with Glomerular Filtration Rate is a suitable alternative for these patients. The National Kidney Foundation and the [place] [employer]ph[employer] (NKF-ASN) recommends using the 2021 CKD Epidemiology Collaboration (CKD-EPI) equation to calculate estimated glomerular filtration rate (eGFR). This equation is only applicable to [place] adult patients and removes race as a variable. ??Due to the variation of creatinine in different conditions, they recommend use of confirmatory tests such as eGFR from cystatin C or creatinine-cystatin GFR estimating equations, or direct measurement of clearance of an exogenous filtration marker in critical clinical decisions including but not limited to drug dosing, surgery, chemotherapy, and transplant referral. ANION GAP 12 8 - 16 mmol/L 10/05/2021 6:39 PM SPORTS ANALYST [facility] Blood Venipuncture / Unknown 10/05/2021 5:50 PM SPORTS ANALYST 10/05/2021 5:54 PM SPORTS ANALYST Narrative [facility] - 10/05/2021 6:39 PM SPORTS ANALYST Samples containing indocyanine green cause interferences on Total and/or Direct Bilirubin and must not be measured. Joey Barajas MD CHEMISTRY ORD ERABLES Performing Organization Address [facility]/ZIP Co de Phone Number [facility]# [id number] [address] [place] [address] * PTT (10/05/2021 5:50 PM SPORTS ANALYST) PTT 35.8 24.4 - 36.4 seconds 10/05/2021 6:26 PM SPORTS ANALYST [facility] Comment: PTT Therapeutic Range: Heparin Level ? PTT (seconds) <0.10 units/mL ? <53 0.10 - 0.30 units/mL ? 53 - 67 0.30 - 0.70 units/mL* ?67 - 95* 0.70 - 1.00 units/mL ? 95 - 116 *corresponds to therapeutic range for unfractionated heparin Blood Venipuncture / Unknown 10/05/2021 5:50 PM SPORTS ANALYST 10/05/2021 5:54 PM SPORTS ANALYST Joey Barajas MD HEMATOLOGY OR DERABLES [facility]# [id number] [address] [place] [address] * PROTIME-INR (10/05/2021 5:50 PM SPORTS ANALYST) Pathologist [facility] PROTIME 14.4 12.7 - 15.1 Seconds 10/05/2021 6:26 PM SPORTS ANALYST [facility] INR 1.1 0.9 - 1.1 10/05/2021 6:26 PM SPORTS ANALYST [facility] Blood Venipuncture / Unknown 10/05/2021 5:50 PM SPORTS ANALYST 10/05/2021 5:54 PM SPORTS ANALYST Narrative [facility] - 10/05/2021 6:26 PM SPORTS ANALYST INR Therapeutic Range: Adult: ?? 2.0 - 3.0 for pulmonary embolism or prophylaxis against venous ?thrombosis or systemic embolization. 2.0 - 3.0 for patients with tissue heart valves. 2.5 - 3.5 for patients with mechanical heart valves or post [place]. Pediatric ??(12 years and under): 1.5 - 3.0 Although the target range in children is not well established, ?INR values of 1.5 - 3.0 are recommended for most patients. ?Higher values have been used in children with prosthetic ?cardiac valves and hereditary clotting disorders. (<3 days) therapeutic ranges have not been established. Joey Barajas MD HEMATOLOGY OR DERABLES [facility]# [id number] [address] [place] [address] * (ABNORMAL) CBC WITH DIFFERENTIAL (10/05/2021 5:50 PM SPORTS ANALYST) Pathologist [facility] WBC 7.4 4.0 - 9.8 K/uL 10/05/2021 6:15 PM SPORTS ANALYST [facility] RBC 4.31(L) 4.50 - 5.40 M/uL 10/05/2021 6:15 PM SPORTS ANALYST [facility] HEMOGLOBIN 14.6 13.6 - 16.5 g/dL 10/05/2021 6:15 PM SPORTS ANALYST [facility] HEMATOCRIT 43.1 40.0 - 48.0 % 10/05/2021 6:15 PM SPORTS ANALYST [facility] MCV 100.0(H) 82.0 - 99.0 fL 10/05/2021 6:15 PM SPORTS ANALYST [facility] MCH 33.9(H) 27.2 - 32.6 pg 10/05/2021 6:15 PM SPORTS ANALYST [facility] MCHC 33.9 31.5 - 35.5 g/dL 10/05/2021 6:15 PM [facility] RDW 12.5 11.5 - 14.5 % 10/05/2021 6:15 PM [facility] RDW-STDEV 46.8 37.1 - 48.7 fL 10/05/2021 6:15 PM SPORTS ANALYST [facility] PLATELETS 189 140 - 350 K/uL 10/05/2021 6:15 PM [facility] MPV 10.2 9.3 - 12.4 fL 10/05/2021 6:15 PM [facility] NEUTROPHILS 59 % 10/05/2021 6:15 PM [facility] LYMPHOCYTES 29 % 10/05/2021 6:15 PM [facility] MONOCYTES 9 % 10/05/2021 6:15 PM SPORTS ANALYST [facility] EOSINOPHILS 1 % 10/05/2021 6:15 PM SPORTS ANALYST [facility] BASOPHILS 1 % 10/05/2021 6:15 PM SPORTS ANALYST [facility] IMMATURE GRANULOCYTES 2 % 10/05/2021 6:15 PM [facility] Comment:IG (Immature Granulo cyte) count includes Metamyelocytes, Myelocytes, and Promyelocytes NEUTROPHIL ABSOLUTE 4.34 1.90 - 7.00 K/uL 10/05/2021 6:15 PM SPORTS ANALYST [facility] LYMPHOCYTE ABSOLUTE 2.13 0.70 - 4.50 K/uL 10/05/2021 6:15 PM SPORTS ANALYST [facility] MONOCYTE ABSOLUTE 0.64 0.10 - 1.30 K/uL 10/05/2021 6:15 PM SPORTS ANALYST [facility] EOSINOPHIL ABSOLUTE 0.10 0.00 - 0.70 K/uL 10/05/2021 6:15 PM SPORTS ANALYST [facility] BASOPHILS ABSOLUTE 0.05 0.00 - 0.20 K/uL 10/05/2021 6:15 PM SPORTS ANALYST [facility] IMMATURE GRANULOCYTES ABSOLUTE 0.15(H) 0.00 - 0.03 K/uL 10/05/2021 6:15 PM SPORTS ANALYST [facility] Blood Venipuncture / Unknown 10/05/2021 5:50 PM SPORTS ANALYST 10/05/2021 5:54 PM SPORTS ANALYST Joey Barajas MD HEMATOLOGY OR DERABLES Performing Organization Address [facility]/State/ZIP Co de Phone Number [facility]# [id number] [address] [facility] [place] [address] * EKG 12-LEAD (10/05/2021 5:20 PM SPORTS ANALYST) 10/05/2021 5:20 PM SPORTS ANALYST Narrative INTERFACE SYSTEM - 10/05/2021 6:12 PM SPORTS ANALYST ? Stationary ECG Study ? [facility] ? Test Date: ?10/05/2021 5:20 PM Pat Name: ? TAYLOR DE JESUS ?Department: ?? 36 ?Room: ? 01 01 Gender: ? 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 [email or web address] : ?1965 ? Requested By: JOEY NGOMOND Order Number: [id number] ?Reading MD: ?? Joey Hammer ? Measurements Intervals ?Kane ? Rate: ? 58 ? P: ?19 WA: ? 170 ?QRS: ?13 QRSD: ? 102 ?T: ?-42 QT: ? 404 ? QTc: ?397 ? Interpretive Statements ? Sinus rhythm Borderline repolarization abnormality Electronically Signed On 10-05-2021 18:12:18 SPORTS ANALYST by Joey Hammer Procedure Note Joey Hammer MD - 10/05/[address] 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 : 1965 Requested By: JOEY CHRISTENSEN Order Number: [id number] Reading MD: Joey Hammer Measurements Intervals Kane Rate: 58 P: 19 WA: 170 QRS: 13 QRSD: 102 T: -42 QT: 404 QTc: 397 Interpretive Statements Sinus rhythm Borderline repolarization abnormality Electronically Signed On 10-05-2021 18:12:18 SPORTS ANALYST by Joey Hammer Joey Barajas MD ECG ORDERABLE S Performing Organization Address City/State/[facility] Co de Phone Number INTERFACE SYSTEM Refer to clinic/hospital department * Critical Care (10/05/2021 3:53 PM SPORTS ANALYST) Narrative Joey Barajas MD - 10/05/2021 3:53 PM SPORTS ANALYST Joey Barajas MD ? 10/05/2021 ??9:26 PM Critical Care Performed by: Joey Barajas MD Authorized by: Joey Barajas MD Critical care provider statement: ??Critical care time (minutes): ??35 ??Critical care time was exclusive of: ??Separately billable procedures and treating other patients ??Critical care was necessary to treat or prevent imminent or life-threatening deterioration of the following conditions: ??ALLOY WEIGHER failure or compromise ??Critical care was time spent personally by me on the following activities: ??Development of treatment plan with patient or surrogate, evaluation of patient's response to treatment, examination of patient, re-evaluation of patient's condition, ordering and review of laboratory studies, ordering and review of radiographic studies, discussions with consultants, obtaining history from patient or surrogate, pulse oximetry and discussions with primary provider ??I assumed direction of critical care for this patient from another provider in my specialty: no ?Care discussed with: admitting provider ?? Joey Barajas MD PROCEDURE/MIN OR SURGICAL ORDERABLES documented in this encounter Visit Diagnoses Diagnosis Acute stroke due to ischemia- Primary Cerebrovascular accident (CVA), unspecified mechanism Type 2 diabetes mellitus with other specified complication, unspecified whether shelter insulin use Vertigo of central origin Acute stroke due to ischemia Type 2 diabetes mellitus with other specified complication Vertigo of central origin Hyperlipidemia Other and unspecified hyperlipidemia Essential hypertension Unspecified essential hypertension documented in this encounter Administered Medications Inactive Administered Medications - up to 3 most recent administrations Medication Order MAR Action Action Date Dose Rate Site acetaminophen (TYLENOL) tablet 650 mg 650 mg, Oral, EVERY 6 HOURS PRN, Starting on Sun10/05/21 at 2244, Until Sun10/07/21 at 1558, Other (See Comment), See admin instructions, Routine Given 10/07/2021 12:37 AM SPORTS ANALYST 650 mg amLODIPine (NORVASC) tablet 10 mg 10 mg, Oral, DAILY WITH SUPPER, First dose on Sun10/05/21 at 2100, Until Discontinued, Routine Given 10/06/2021 5:40 PM SPORTS ANALYST 10 mg Given 10/05/2021 9:21 PM SPORTS ANALYST 10 mg aspirin (RAKAN CHEWABLE) chewable tablet 81 mg 81 mg, Oral, DAILY WITH BREAKFAST, First dose on Sun10/06/21 at 0700, Until Discontinued, Routine Given 10/07/2021 6:53 AM SPORTS ANALYST 81 mg Given 10/06/2021 6:23 AM SPORTS ANALYST 81 mg atorvastatin (LIPITOR) tablet 80 mg 80 mg, Oral, DAILY AT BEDTIME, First dose on Sun10/05/21 at 2100, Until Discontinued, Routine Given 10/06/2021 9:13 PM SPORTS ANALYST 80 mg Given 10/05/2021 8:34 PM SPORTS ANALYST 80 mg carvediloL (COREG) tablet 12.5 mg 12.5 mg, Oral, TWO TIMES DAILY WITH MEALS, First dose (after last modification) on Sun10/06/21 at 1700, Until Discontinued, Routine Given 10/07/2021 6:54 AM SPORTS ANALYST 12.5 mg Given 10/06/2021 5:40 PM SPORTS ANALYST 12.5 mg carvediloL (COREG) tablet 25 mg 25 mg, Oral, TWO TIMES DAILY WITH MEALS, First dose (after last modification) on Sun10/07/21 at 1700, Until Discontinued, Routine cephALEXin (KEFLEX) capsule 500 mg 500 mg, Oral, FOUR TIMES DAILY, First dose on Sun10/06/21 at 0900, Until Discontinued, Routine, Antibiotic Indication: Wound / Cellulitis / Abscess Given 10/07/2021 12:38 PM SPORTS ANALYST 500 mg Given 10/07/2021 9:41 AM SPORTS ANALYST 500 mg Given 10/06/2021 9:13 PM SPORTS ANALYST 500 mg cloNIDine HCL (CATAPRES) tablet 0.1 mg 0.1 mg, Oral, THREE TIMES DAILY, First dose on Sun10/05/21 at 1945, Until Discontinued, Routine Given 10/05/2021 8:36 PM SPORTS ANALYST 0.1 mg cloNIDine HCL (CATAPRES) tablet 0.1 mg 0.1 mg, Oral, TWO TIMES DAILY, First dose (after last modification) on Sun10/06/21 at 0900, Until Discontinued, Routine Given 10/07/2021 9:41 AM SPORTS ANALYST 0.1 mg Given 10/06/2021 9:13 PM SPORTS ANALYST 0.1 mg Given 10/06/2021 8:49 AM SPORTS ANALYST 0.1 mg clopidogreL (PLAVIX) tablet 300 mg 300 mg, Oral, ONE TIME ONLY, 1 dose, On Sun10/05/21 at 1845, Routine Given 10/05/2021 8:35 PM SPORTS ANALYST 300 mg clopidogreL (PLAVIX) tablet 75 mg 75 mg, Oral, DAILY, First dose on Sun10/06/21 at 0900, Until Discontinued, Routine Given 10/07/2021 9:41 AM SPORTS ANALYST 75 mg Given 10/06/2021 8:49 AM SPORTS ANALYST 75 mg cyclobenzaprine (FLEXERIL) tablet 10 mg 10 mg, Oral, TWO TIMES DAILY PRN, Starting on Sun10/05/21 at 2244, Until Sun10/07/21 at 1558, Spasm, Routine Given 10/07/2021 12:37 AM SPORTS ANALYST 10 mg dextrose 5% - sodium chloride 0.9% infusion IV, at 40 mL/hr, SEE ADMIN INSTRUCTIONS, Starting on Sun10/06/21 at 0036, Until Sun10/07/21 at 1558, Routine dextrose 50% (D50) syringe 12.5 Gram 12.5 Gram, IV, SEE ADMIN INSTRUCTIONS, Starting on Sun10/06/21 at 0036, Until Sun10/07/21 at 1558, Routine dextrose 50% (D50) syringe 25 Gram 25 Gram, IV, SEE ADMIN INSTRUCTIONS, Starting on Sun10/06/21 at 0036, Until Sun10/07/21 at 1558, Routine enoxaparin (LOVENOX) injection 70 mg 70 mg (rounded from 65.75 mg = 0.5 mg/kg ? 131.5 kg), subCUT, EVERY 24 HOURS, First dose on Sun10/05/21 at 0700, Until Discontinued, Routine, Indication: Prophylaxis of VTE, Dose to be adjusted per facility protocol? Yes Given 10/07/2021 6:53 AM SPORTS ANALYST 70 mg Abdom inal Tissue Given 10/06/2021 6:24 AM SPORTS ANALYST 70 mg Ab dominal Tissue glucagon HCL 1 mg/mL injection 1 mg 1 mg, IM, SEE ADMIN INSTRUCTIONS, Starting on Sun10/06/21 at 0036, Until Sun10/07/21 at 1558, Routine hydroCHLOROthiazide tablet 12.5 mg 12.5 mg, Oral, DAILY, First dose on Sun10/07/21 at 1115, Until Discontinued, Routine, On hold since Sun10/07/2021 at 1137 until manually unheld insulin lispro (HumaLOG) injection 0-4 Units 0-4 Units, subCUT, THREE TIMES DAILY WITH MEALS, First dose on Sun10/06/21 at 0700, Until Discontinued, Routine Given 10/07/2021 12:46 PM SPORTS ANALYST 2 Units Arm, Left Upper Given 10/06/2021 5:54 PM SPORTS ANALYST 2 Units Ab dominal Tissue iopamidoL (ISOVUE-300) 61% injection (drawn from multi-use bulk pack) 80 mL 80 mL, IV, INTRA-PROCEDURE ONCE, 1 dose, Starting on Sun10/05/21 at 1903, Until Sun10/05/21 at 1904, Routine Contrast Given 10/05/2021 7:04 PM SPORTS ANALYST 80 mL losartan (COZAAR) tablet 100 mg 100 mg, Oral, DAILY, First dose on Sun10/07/21 at 1115, Until Discontinued, Routine, On hold since Sun10/07/2021 at 1137 until manually unheld METFORMIN CONSULT TO PHARMACY Special Instructions to Pharmacy: 1. Discontinue the current order for metformin. Contact physician for combination metformin products. 2. Evaluate GFR and SCr with daily labs starting 48 hours after radiologic studies involving iodinated contrast materials. 3. Restart metformin per protocol at 48 hours with a cosign message routed back to the metformin ordering physician. 4. If after 96 hours the patient has not met criteria to reinitiate therapy, contact the ordering prescriber., Routine, Starting on Sun10/05/21 at 1944 pantoprazole (PROTONIX) tablet 40 mg 40 mg, Oral, DAILY, First dose on Sun10/06/21 at 0900, Until Discontinued, Routine, Indication: Gastroesophageal reflux disease (GERD) Given 10/07/2021 9:41 AM SPORTS ANALYST 40 mg Given 10/06/2021 8:50 AM SPORTS ANALYST 40 mg perflutren lipid microspheres (DEFINITY) 1.1 mg/mL injection 2 mL 2 mL, IV, INTRA-PROCEDURE ONCE, 1 dose, Starting on Sun10/06/21 at 1324, Until Sun10/06/21 at 1200, Routine Contrast Given 10/06/2021 12:00 PM SPORTS ANALYST 2 mL sodium chloride 0.9% bolus solution 50 mL 50 mL, IV, ONE TIME ONLY, 1 dose, On Sun10/05/21 at 1915, at 100 mL/hr, Administer over 30 Minutes, Routine New Bag 10/05/2021 7:15 PM SPORTS ANALYST 50 mL 100 mL/hr sodium chloride flush injection 10 mL 10 mL, IV, SEE ADMIN INSTRUCTIONS, Starting on Sun10/05/21 at 1903, Until Sun10/05/21 at 2302, Routine Given 10/05/2021 7:04 PM SPORTS ANALYST 10 mL sodium chloride flush injection 3 mL 3 mL, IV, TWO TIMES DAILY, First dose on Sun10/05/21 at 2100, Until Discontinued, Routine Given 10/07/2021 9:44 AM SPORTS ANALYST 3 mL Feeding Started 10/07/2021 12:32 AM SPORTS ANALYST 3 mL Given 10/06/2021 8:50 AM SPORTS ANALYST 3 mL documented in this encounter Active and Recently Administered Medications Times are shown in SPORTS ANALYST. Scheduled Medication Order 10/05/2021 10/06/2021 10/07/2021 amLODIPine (NORVASC) tablet 10 mg 10 mg, Oral, DAILY WITH SUPPER, First dose on Sun10/05/21 at 2100, Until Discontinued, Routine 2120 (Given - Provider: Cherri Mcdonough RN) 1739 (Given - Provider: Kristin Winslow, ANA) aspirin (RAKAN CHEWABLE) chewable tablet 81 mg 81 mg, Oral, DAILY WITH BREAKFAST, First dose on Sun10/06/21 at 0700, Until Discontinued, Routine 622 (Given - Provider: PAULINO Contreras) 0653 (Given - Provider: PAULINO Contreras) atorvastatin (LIPITOR) tablet 80 mg 80 mg, Oral, DAILY AT BEDTIME, First dose on Sun10/05/21 at 2100, Until Discontinued, Routine 2033 (Given - Provider: Cherri Mcdonough RN) 2112 (Given - Provider: PAULINO Contreras) carvediloL (COREG) tablet 12.5 mg (CANCELED) 12.5 mg, Oral, TWO TIMES DAILY WITH MEALS, First dose (after last modification) on Sun10/06/21 at 1700, Until Discontinued, Routine 1739 (Given - Provider: Kristin Winslow RN) 0654 (Given - Provider: PAULINO Contreras) carvediloL (COREG) tablet 25 mg 25 mg, Oral, TWO TIMES DAILY WITH MEALS, First dose (after last modification) on Sun10/07/21 at 1700, Until Discontinued, Routine cephALEXin (KEFLEX) capsule 500 mg 500 mg, Oral, FOUR TIMES DAILY, First dose on Sun10/06/21 at 0900, Until Discontinued, Routine, Antibiotic Indication: Wound / Cellulitis / Abscess 5157 (Held by Provider - Provider: PAULINO Contreras - Reason: Other - See Comment) 5877 (Order Unhold - Provider: Jamie Garcia DO)0849 (Given - Provider: Kristin Winslow RN)1352 (Given - Provider: Kristin Winslow RN)1740 (Given - Provider: Kristin Winslow RN)211 (Given - Provider: PAULINO Contreras) 0941 (Given - Provider: Bruna Gonzalez RN)1238 (Given - Provider: Bruna Gonzalez RN) cloNIDine HCL (CATAPRES) tablet 0.1 mg (CANCELED) 0.1 mg, Oral, THREE TIMES DAILY, First dose on Sun10/05/21 at 1945, Until Discontinued, Routine 2035 (Given - Provider: Cherri Mcdonough RN) cloNIDine HCL (CATAPRES) tablet 0.1 mg 0.1 mg, Oral, TWO TIMES DAILY, First dose (after last modification) on Sun10/06/21 at 0900, Until Discontinued, Routine 0849 (Given - Provider: Kristin Winslow RN)2112 (Given - Provider: PAULINO Contreras) 0941 (Given - Provider: Bruna Gonzalez RN) clopidogreL (PLAVIX) tablet 300 mg (COMPLETED) 300 mg, Oral, ONE TIME ONLY, 1 dose, On Sun10/05/21 at 1845, Routine 2034 (Given - Provider: Cherri Mcdonough RN) clopidogreL (PLAVIX) tablet 75 mg 75 mg, Oral, DAILY, First dose on Sun10/06/21 at 0900, Until Discontinued, Routine 0849 (Given - Provider: Kristin Winslow RN) 0941 (Given - Provider: Bruna Gonzalez RN) dextrose 5% - sodium chloride 0.9% infusion IV, at 40 mL/hr, SEE ADMIN INSTRUCTIONS, Starting on Sun10/06/21 at 0036, Until Sun10/07/21 at 1558, Routine dextrose 50% (D50) syringe 12.5 Gram 12.5 Gram, IV, SEE ADMIN INSTRUCTIONS, Starting on Sun10/06/21 at 0036, Until Sun10/07/21 at 1558, Routine dextrose 50% (D50) syringe 25 Gram 25 Gram, IV, SEE ADMIN INSTRUCTIONS, Starting on Sun10/06/21 at 0036, Until Sun10/07/21 at 1558, Routine enoxaparin (LOVENOX) injection 70 mg 70 mg (rounded from 65.75 mg = 0.5 mg/kg ? 131.5 kg), subCUT, EVERY 24 HOURS, First dose on Sun10/05/21 at 0700, Until Discontinued, Routine, Indication: Prophylaxis of VTE, Dose to be adjusted per facility protocol? Yes 0624 (Given - Provider: PAULINO Contreras) 0653 (Given - Provider: PAULINO Contreras) glucagon HCL 1 mg/mL injection 1 mg 1 mg, IM, SEE ADMIN INSTRUCTIONS, Starting on Sun10/06/21 at 0036, Until Sun10/07/21 at 1558, Routine hydroCHLOROthiazide tablet 12.5 mg 12.5 mg, Oral, DAILY, First dose on Sun10/07/21 at 1115, Until Discontinued, Routine, On hold since Sun10/07/2021 at 1137 until manually unheld 1114 (Held by Provider - Provider: Jamie Garcia DO - Reason: Other - See Comment)1115 (Automatically Held - Provider: Jamie Garcia DO)1136 (Order Unhold - Provider: Lyla Casper DO)1137 (Held by Provider - Provider: Lyla Casper DO - Reason: Other - See Comment)1558 (Order Unhold - Provider: PROVIDER, DISCHARGE PATIENT) insulin lispro (HumaLOG) injection 0-4 Units 0-4 Units, subCUT, THREE TIMES DAILY WITH MEALS, First dose on Sun10/06/21 at 0700, Until Discontinued, Routine 0851 (Not Given - Provider: Kristin Winslow RN - Reason: Other - See Comment - Comment: BS 164)1200 (Not Given - Provider: Kristin Winslow RN - Reason: Other - See Comment)1754 (Given - Provider: Kristin Winslow RN - Comment: BS 219) 0700 (Not Given - Provider: Bruna Gonzalez RN - Reason: Lab results - Comment: BG 169)1246 (Given - Provider: Bruna Gonzalez RN) iopamidoL (ISOVUE-300) 61% injection (drawn from multi-use bulk pack) 80 mL (COMPLETED) 80 mL, IV, INTRA-PROCEDURE ONCE, 1 dose, Starting on Sun10/05/21 at 1903, Until Sun10/05/21 at 1904, Routine 1904 (Contrast Given - Provider: Emilee Gallego RT) losartan (COZAAR) tablet 100 mg 100 mg, Oral, DAILY, First dose on Sun10/07/21 at 1115, Until Discontinued, Routine, On hold since Sun10/07/2021 at 1137 until manually unheld 1114 (Held by Provider - Provider: Jamie Garcia DO - Reason: Other - See Comment)1115 (Automatically Held - Provider: Jamie Garcia DO)1136 (Order Unhold - Provider: Lyla Casper DO)1137 (Held by Provider - Provider: Lyla Casper DO - Reason: Other - See Comment)1558 (Order Unhold - Provider: PROVIDER, DISCHARGE PATIENT) METFORMIN CONSULT TO PHARMACY Special Instructions to Pharmacy: 1. Discontinue the current order for metformin. Contact physician for combination metformin products. 2. Evaluate GFR and SCr with daily labs starting 48 hours after radiologic studies involving iodinated contrast materials. 3. Restart metformin per protocol at 48 hours with a cosign message routed back to the metformin ordering physician. 4. If after 96 hours the patient has not met criteria to reinitiate therapy, contact the ordering prescriber., Routine, Starting on Sun10/05/21 at 1944 naloxone (NARCAN) 0.4 mg/mL injection 0.1 mg 0.1 mg, IV, SEE ADMIN INSTRUCTIONS, Starting on Sun10/05/21 at 2244, Until Sun10/07/21 at 1558, Routine pantoprazole (PROTONIX) tablet 40 mg 40 mg, Oral, DAILY, First dose on Sun10/06/21 at 0900, Until Discontinued, Routine, Indication: Gastroesophageal reflux disease (GERD) 0850 (Given - Provider: Kristin Winslow RN) 0941 (Given - Provider: Bruna Gonzalez RN) perflutren lipid microspheres (DEFINITY) 1.1 mg/mL injection 2 mL (COMPLETED) 2 mL, IV, INTRA-PROCEDURE ONCE, 1 dose, Starting on Sun10/06/21 at 1324, Until Sun10/06/21 at 1200, Routine 1200 (Contrast Given - Provider: Lili Gamino) sodium chloride 0.9% bolus solution 50 mL (COMPLETED) 50 mL, IV, ONE TIME ONLY, 1 dose, On Sun10/05/21 at 1915, at 100 mL/hr, Administer over 30 Minutes, Routine 1914 (New Bag - Provider: Emilee Gallego, RT)1944 (Stopped - Provider: Cherri Mcdonough, ANA) sodium chloride flush injection 10 mL () 10 mL, IV, SEE ADMIN INSTRUCTIONS, Starting on Sun10/05/21 at 1903, Until Sun10/05/21 at 2302, Routine 190 (Given - Provider: Emilee Gallego, RT) sodium chloride flush injection 3 mL 3 mL, IV, TWO TIMES DAILY, First dose on Sun10/05/21 at 2100, Until Discontinued, Routine 2319 (Given - Provider: PAULINO Contreras) 0850 (Given - Provider: Kristin Winslow, ANA) 0032 (Feeding Started - Provider: PAULINO Contreras)0944 (Given - Provider: Bruna Gonzalez, ANA) PRN Medication Order 10/05/2021 10/06/2021 10/07/2021 acetaminophen (TYLENOL) tablet 650 mg 650 mg, Oral, EVERY 6 HOURS PRN, Starting on Sun10/05/21 at 2244, Until Sun10/07/21 at 1558, Other (See Comment), See admin instructions, Routine 003 (Given - Provider: PAULINO Contreras) cyclobenzaprine (FLEXERIL) tablet 10 mg 10 mg, Oral, TWO TIMES DAILY PRN, Starting on Sun10/05/21 at 2244, Until Sun10/07/21 at 1558, Spasm, Routine 2244 (Held by Provider - Provider: PAULINO Contreras - Reason: Other - See Comment) 0458 (Order Unhold - Provider: Jamie Garcia DO) 0037 (Given - Provider: PAULINO Contreras) diclofenac sodium (VOLTAREN) tablet 75 mg 75 mg, Oral, TWO TIMES DAILY PRN, Starting on Sun10/05/21 at 2244, Until Sun10/07/21 at 1558, Other (See Comment), lumbar pain, Routine, On hold since Hetal 10/06/2021 at 0458 until manually unheld 2244 (Held by Provider - Provider: PAULINO Contreras - Reason: Other - See Comment) 0458 (Order Unhold - Provider: Jamie Garcia DO)0458 (Held by Provider - Provider: Jamie Garcia DO - Reason: Other - See Comment) 1558 (Order Unhold - Provider: PROVIDER, DISCHARGE PATIENT) ondansetron (ZOFRAN ODT) tablet 4 mg 4 mg, Oral, EVERY 6 HOURS PRN, Starting on Sun10/05/21 at 2244, Until Sun10/07/21 at 1558, Nausea/Emesis, Routine documented in this encounter
--- OUTSIDE RECORDS SUMMARY | 2024-07-28 01:10 | XMS_ITS | Encounter Summary ---
Author Organization [facility] Address [address] [place] [address] Care Team Providers Care Auto Winder Name Role Phone BonnieFaisal klein Primary Care Provider [phone] Reason for Referral * Eval and Treat (Routine) - Closed Specialty Diagnoses / Procedures Referred By Contac t Referred To Contact Diagnoses Moderate aortic stenosis Batsheva Stacy MD [address] [address] Referral ID Status Reason Start Date Expiration Date Visits Re quested Visits Authorized [id number] Closed 10/26/2021 10/26/2022 1 1 * Dental Care (8-30 Days) - Closed Specialty Diagnoses / Procedures Referred By Contac t Referred To Contact Diagnoses Closed fracture of nasal bone, initial encounter Batsheva Stacy MD [id number] Referral ID Status Reason Start Date Expiration Date Visits Re quested Visits Authorized [id number] Closed 10/26/2021 10/26/2022 1 1 Reason for Visit * Reason Comments Dizziness 56 y/o M arrived aft er waking up at around 0500 with dizziness. PT report he was able to fall back to sleep and woke up at around 0700 and was dizzy . PT report he was able to get up and take a shower. PT report bending over and falling. PT has a laceration to the left eye. PT is on a baby asa. PT is A&Ox4, speech is clear , no facial droop or arm drift. * Auth/Cert Specialty Diagnoses / Procedures Referred By Kd t Referred To Contact Neurology [facility] [address] [place] [address] Referral ID Status Reason Start Date Expiration Date Visits Re quested Visits Authorized [id number] 1 1 Encounter Details Date Type Department Care Team (Latest Contact Info) Description 10/25/2021 8:43 AM CDT - 10/26/2021 2:31 PM CDT Hospital Encounter [facility] [address] [place] [address] Jesús Quiñones MD [address] [facility] [address] Arsenio Ocasio MD [address] [place] [address] Batsheva Stacy MD [address] [id number] H/O ischemic vertebrobasilar artery brainstem stroke Discharge Disposition: Home or Self Care Social [...] have Coronavirus / COVID-19? No / Unsure 10/25/2021 9:54 AM CDT documented as of this encounter Last Filed Vital Signs Vital Sign Reading Time Taken Comments Blood Pressure 116/57 10/26/2021 11:55 AM CDT Pulse 81 10/26/2021 11:55 AM CDT Temperature 37.6 ??C (99.6 ??F) 10/26/2021 1 1:51 AM CDT Respiratory Rate 16 10/26/2021 11:5 5 AM CDT Oxygen Saturation 94% 10/26/2021 11: 55 AM CDT Inhaled Oxygen Concentration - - Weight 119.7 kg (263 lb 12.8 oz) 10/25/2021 2:58 PM CDT Height 185.4 cm (6' 1 ) 10/25/2021 2:58 PM CDT Body Mass Index 34.8 10/25/2021 2:58 PM CDT documented in this encounter Discharge Summaries * Batsheva Stacy MD - 10/26/2021 2:01 PM CDT [facility] Adult Hospitalist Discharge Summary Patient Name: Jose De Jesus / 56 y.o. / male : 1965 Primary Care Physician: Faisal Richardson DO Date of Admission: 10/25/2021 Date of Discharge : 10/26/2021 Admitting Diagnoses: Dizziness and fall Discharge Diagnoses: See hospital course MEDICATIONS Discharge medications and new prescriptions: Medication List START taking these medications bacitracin 500 unit/gram Ointment Commonly known as: BACIGUENT Apply to affected area 2 times daily. Signed by: Dr. Batsheva Stacy MD Quantity: 28.4 Gram Refills: 1 HYDROcodone-acetaminophen 5-325 mg tablet Commonly known as: NORCO Take 1 Tablet by mouth every 8 hours as needed for moderate Pain. Max Daily Amount: 3 Tablets Signed by: Dr. Batsheva Stacy MD Quantity: 15 Tablet Refills: 0 CONTINUE taking these medications amLODIPine 10 mg tablet Commonly known as: NORVASC Take 10 mg by mouth daily. Refills: 0 aspirin 81 mg Tablet, Chewable Commonly known as: RAKAN CHEWABLE Starting 10/08, Chew 1 Tablet (81 mg) by mouth daily with breakfast. Signed by: Lyla Casper DO Quantity: 19 Tablet Refills: 0 carvediloL 25 mg tablet Commonly known as: COREG Take 25 mg by mouth 2 times daily with meals. Refills: 0 cephALEXin 500 mg capsule Commonly known as: KEFLEX Take 500 mg by mouth 4 times daily. Refills: 0 cloNIDine HCL 0.1 mg tablet Commonly known as: CATAPRES Take 0.1 mg by mouth 2 times daily. Refills: 0 clopidogreL 75 mg Tablet Commonly known as: PLAVIX Take 1 Tablet (75 mg) by mouth daily. Signed by: Lyla Casper DO Quantity: 30 Tablet Refills: 0 cyclobenzaprine 10 mg tablet Commonly [...] 2 times daily with meals. Refills: 0 ondansetron 4 mg Tablet, Rapid Dissolve Commonly known as: ZOFRAN ODT Take 1 Tablet (4 mg) by mouth every 6 hours as needed for Nausea/Emesis. Dissolve tablet on top of tongue, then swallow with saliva. Signed by: Lyla Casper DO Quantity: 15 Tablet Refills: 0 pantoprazole 40 mg Tablet, Delayed Release (E.C.) Commonly known as: PROTONIX Take 40 mg by mouth daily. Refills: 0 rosuvastatin 40 mg tablet Commonly known as: CRESTOR Take 1 Tablet (40 mg) by mouth daily. Signed by: Lyla Casper DO Quantity: 30 Tablet Refills: 0 STOP taking these medications dulaglutide 1.5 mg/0.5 mL injection [facility] Where [facility] Get Your Medications These [address] [facility] [id number] Hours: Retail 8 AM - 12 AM Daily / ED Service 10 AM - 12 AM Daily ?? bacitracin 500 unit/gram Ointment ?? HYDROcodone-acetaminophen 5-325 mg tablet Consults: OMF, PT/OT, neurology Significant Diagnostic Studies: MRI of the brain done on admission shows: IMPRESSION: Interval further maturation of left lateral medullary infarct since CT head and maxillofacial IMPRESSION: No infarct, mass or intracranial hemorrhage. Fracture of nasal bones proper and nasal processes of maxilla. IMPRESSION: Virtually nondisplaced fractures of sockets of left central and lateral maxillary incisor and maxillary canine tooth. Fracture of anterior nasal spine and nasal bones proper and nasal processes of maxillae. Maxillary sinus retention cyst. CT scan of cervical spine: Craniocervical junction is normal. Occipital condyles are intact. C1 ring is intact. Prevertebral soft tissue thickness is normal. Predental space is normal. Dens is intact. C2-3 is without fracture. C3 ring is intact. C3-4 is without fracture. Anterior osteophyte formation is seen at C3-4. C4 ring is intact. C4-5 is without fracture. C5 ring is intact. C5-6 is without fracture. C6 ring is intact. C6-7 has anterior and posterior osteophyte formation. No fracture seen. C7 ring is intact. C7-T1 is without fracture. ?? No intra or paraspinal hemorrhage is seen. ?? IMPRESSION: Cervical spondylosis. No fracture or dislocation CTA H&N IMPRESSION: CT perfusion: No evidence of irreversible, [...] carotid or vertebral circulation of the neck. Echo done on 10/06/2021 showed: Left ventricle: The cavity size was normal. [...] septum: Agitated saline contrast study shows no [id number] shunt. Labs and studies that are pending or need follow-up: Discharge Exam: Patient Vitals for the past 24 hrs: BP Temp Temp src Pulse Resp SpO2 Height Weight 10/26/21 1155 116/57 -- -- 81 16 94 % -- -- 10/26/21 1153 126/69 -- -- 75 16 99 % -- -- 10/26/21 1151 134/67 99.6 ??F (37.6 ??C) Oral 76 16 94 % -- -- 10/26/21 0905 (!) 143/62 97.8 ??F (36.6 ??C) Oral 76 16 96 % -- -- 10/26/21 0408 120/62 98.8 ??F (37.1 ??C) Oral 73 18 97 % -- -- 10/26/21 0005 122/61 98.8 ??F (37.1 ??C) Oral 74 18 96 % -- -- 10/25/21 2036 109/60 98 ??F (36.7 ??C) Oral 74 20 95 % -- -- 10/25/21 1459 122/62 97.4 ??F (36.3 ??C) Oral 66 20 97 % -- -- 10/25/21 1458 -- -- -- -- -- -- 6' 1 (1.854 m) 119.7 kg (263 lb 12.8 oz) 10/25/21 1402 117/68 97.2 ??F (36.2 ??C) Oral 64 18 93 % -- -- Gen: laceration stiched left side forehead Chest: CTA bilaterally CV: RRR, nl S1. S2. Murmur+ Abd: positive BS, soft, NT, ND Ext: no cyanosis or edema NETWORK DESKTOP SUPPORT SPECIALIST: Grossly intact HPI: per admitting physician Patient is a 56 y.o. male presenting with after a fall early this morning in the bathroom. He was recently discharged from the hospital after being treated and evaluated for a left medullary stroke. All the history obtained today is from the patient, his spouse and daughter present the bedside. As per the spouse he was doing well at home. He was walking better. this morning he got up to go to [facility] and take a shower to get ready for his outpatient appointment (he had an outpatient appointment with Dr. Trent, neurology today) he fell in the bathroom with face down. He lost his balance andfell hitting his face. He did not lose consciousness. No incontinence of bladder or bowel was noted. Now he has multiple lacerations on the face and the nose. No vision changes, no slurred speech weakness or numbness noted. No preceding chest pain, palpitations or shortness of breath noted. Denies any abdominal pain, no nausea vomiting, no dysuria. No recent fever chills nausea vomiting diarrhea constipation. Since his recent stroke he has been leaning towards the left when ambulating. He has been ambulating better every day and has been using cane recently. 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 Admitted due to dizziness. Patient had a fall in the bathroom with face down. Denies syncopal episode. CT head negative forintracranial hemorrhage. CTA head and neck showed no major LVO. MRI reveals evolving left lateral medullary stroke and in no acute stroke is noted. Patient to complete DAPT for total of 3 weeks. Thencont asa alone after 3 weeks. Cont crestor at dc. LDL less than target level 70. Echo done in the prior admission reveals normal LV systolic function, moderate to severe aortic stenosis, and normal size LA, no shunt. Advised the patient to follow-up with cardiology as outpatient. Cont outpatient PT/OT ?? Moderate to severe aortic stenosis per echo in prior admission. Discussed this with the patient andhis in person. Recommended to follow-up with cardiology as outpatient. AV area 1.1 sqcm ?? Fracture of the nasal bone and nasal processes of the maxilla noted on the initial CAT scan??done in the ED (please see the detailed report). ??OMF consulted from the ED. ??noted the recs. Placed in dc instructions. F/u with general dental in 3 weeks per OMF recs. Titrating analgesics Per OMF the following instructions - Non operative management. -Warm wash cloth and bacitracin to the lower lip and nostril crusting to soften the scabbing for removal. -Soft diet for the next 6 weeks -Sleep with head of bed elevated for the next 7 days -No strenuous activities for the next 6 weeks -Follow up with general dentist in 3 weeks for additional review Hypertension. ??Continue DISTRIBUTION ENGINEER Coreg, clonidine, Norvasc. For head laceration??-repair??was??done in the ED. ??Continue local wound care.. Hyperlipidemia. ??DISTRIBUTION ENGINEER Crestor Type 2 diabetes mellitus. ??Recent A1c 7.1. ??Resume DISTRIBUTION ENGINEER oral hypoglycemics History of NATALY. ??Continue CPAP BMI 38 GI prophylaxis. ??On PPI Nutritional status and in-house recommendations: Current Diet and/or Nutritional Supplementation ordered: DIET SOFT DENTAL Discharge Condition: stable. Disposition: Home with Op PT/OT Code Status: full Patient instructions: Activity: No strenuous activity Diet: Soft diet for 6 weeks Wound Care: Warm wash cloth and bacitracin to the lower lip and nostril crusting to soften the scabbing for removal. Follow-up: Fiasal Richardson DO More than 60 minutes were spent in this discharge activity. Signed: Batsheva Stacy MD 10/26/2021, 2:01 PM documented in this encounter Discharge Instructions * Discharge Instructions* Batsheva Stacy MD - 10/26/2021 12:36 PM CDT Your discharging physician is Batsheva Stacy MD and may be reached at [phone] for any questions or concerns until you see your doctor. FOLLOW-UP Follow up with PCP in 7 days Follow up with general dentist in 3 weeks for additional review with Tono Myers MEDS: Prescriptions given? Yes SIGNS AND SYMPTOMS TO REPORT: For problems or questions that arise after you are discharged, please call Dr. Stacy at the above number or Contact your health care provider if you experience any of the following symptoms: Worsening shortness of breath, worsening chest pain, fever >101.5, profuse diarrhea, severe nausea and vomiting Heart Patients: Weigh yourself everyday at the same time, with the same amount of clothing and after you have emptied your bladder. Keep a log of your daily weights and bring them with you to your physician appointments. Call your physician (*) if you have a weight gain of 3 pounds in one day (or 5pounds in 2+ days) or (*) if you have increased shortness of breath or (*) if you have swelling in your feet, belly or legs. <<<Call 911 or go to the nearest emergency room if you have increased shortness of breath or chest pain or discomfort that is not relieved by nitroglycerin. Smoking [place]: [facility] [place] to decrease risks associated with smoking and second hand smoke exposure. If you smoke you are advised to quit. Ask your health care provider for advice if you need assistance to stop smoking. Avoid second-hand smoke exposure and do not let people smoke in your home. Please call [phone], our pulmonary rehabilitation department, to learn more about options to reduce your risks ACTIVITY: Your activity level is: -No strenuous activities for the next 6 weeks You may return to work/school DIET: Your diet is: -Soft diet for the next 6 weeks WOUND CARE: For your wound/incision: -Warm wash cloth and bacitracin to the lower lip and nostril crusting to soften the scabbing for removal. -Sleep with head of bed elevated for the next 7 days PAIN : Continue pain control therapies as prescribed. documented in this encounter Medications at Time of Discharge Medication Sig Dispensed Refills Start Date End Date betamethasone dipropionate (DIPROSONE) 0.05 % Ointment as needed. 10/17/2020 dulaglutide (Trulicity) 1.5 mg/0.5 mL injection Inject 1.5 mg by subcutaneous injection. 10/17/2021 acetaminophen (TYLENOL) 500 mg tablet 08/06/2021 amLODIPine (NORVASC) 5 mg tablet 10/17/2021 losartan-hydroCHLOROthi azide (HYZAAR) 100-12.5 mg tablet 10/17/2021 ilwpyxka-epj-yuafo-vit K-lycop (One-A-Day Men's Multivitamin) 400-20-300 mcg Tablet [...] as of this encounter Progress Notes * Eliane Gonzalez SLP - 10/26/2021 2:30 PM CDT INCUBATOR MACHINE OPERATOR attempting to see patient for dysphagia assessment. Pt has discharged from hospital. Eliane Kimble M.S., [facility]-INCUBATOR MACHINE OPERATOR Speech Therapy Ext. [phone] For Weekend INCUBATOR MACHINE OPERATOR: [phone] documented in this encounter H&P Notes * Arsenio Ocasio MD - 10/25/2021 11:47 AM CDT [facility] Adult Hospitalist Admission H & P Patient Name: Jose De Jesus Primary Care Doctor: Faisal Richardson DO Date of Admission: 10/25/2021 Date of Service: 10/25/2021 Chief Complaint: Dizziness and fall. HPI: Patient is a 56 y.o. male presenting with after a fall early this morning in the bathroom. He was recently discharged from the hospital after being treated and evaluated for a left medullary stroke. All the history obtained today is from the patient, his spouse and daughter present the bedside. As per the spouse he was doing well at home. He was walking better. this morning he got up to go to [facility] and take a shower to get ready for his outpatient appointment (he had an outpatient appointment with Dr. Trent, neurology today) he fell in the bathroom with face down. He lost his balance andfell hitting his face. He did not lose consciousness. No incontinence of bladder or bowel was noted. Now he has multiple lacerations on the face and the nose. No vision changes, no slurred speech weakness or numbness noted. No preceding chest pain, palpitations or shortness of breath noted. Denies any abdominal pain, no nausea vomiting, no dysuria. No recent fever chills nausea vomiting diarrhea constipation. Since his recent stroke he has been leaning towards the left when ambulating. He has been ambulating better every day and has been using cane recently. Past Medical History: Past Medical History: Diagnosis Date ??? Diabetes mellitus ??? HTN (hypertension) ??? Hyperlipidemia ??? PUD (peptic ulcer disease) Past Surgical History: Past Surgical History: Procedure Laterality Date ??? HX APPENDECTOMY ??? HX LUMBAR LAMINECTOMY Left Current Medications: Prior to Admission Medications Prescriptions Last Dose Informant Patient Reported? Taking? amLODIPine (NORVASC) 10 mg tablet Yes No Sig: Take 10 mg by mouth daily. aspirin (RAKAN CHEWABLE) 81 mg Tablet, Chewable No No Sig: Starting 10/08, Chew 1 Tablet (81 mg) by mouth daily with breakfast. carvediloL (COREG) 25 mg tablet Yes No Sig: Take 25 mg by mouth 2 times daily with meals. cephALEXin (KEFLEX) 500 mg capsule Yes No Sig: Take 500 mg by mouth 4 times daily. cloNIDine HCL (CATAPRES) 0.1 mg tablet Yes No Sig: Take 0.1 mg by mouth 2 times daily. clopidogreL (PLAVIX) 75 mg Tablet No No Sig: Take 1 Tablet (75 mg) by mouth daily. cyclobenzaprine (FLEXERIL) 10 mg tablet Yes No Sig: Take 10 mg by mouth 2 times daily as needed for Spasm. glipiZIDE (GLUCOTROL) 10 mg tablet Yes No Sig: Take 10 mg by mouth daily with breakfast. meclizine 25 mg Tablet, Chewable Yes No Sig: Take 25 mg by mouth every 6 hours. metFORMIN (GLUCOPHAGE) 1,000 mg tablet Yes No Sig: Take 1,000 mg by mouth 2 times daily with meals. ondansetron (ZOFRAN ODT) 4 mg Tablet, Rapid Dissolve No No Sig: Take 1 Tablet (4 mg) by mouth every 6 hours as needed for Nausea/Emesis. Dissolve tablet on top of tongue, then swallow with saliva. pantoprazole (PROTONIX) 40 mg Tablet, Delayed Release (E.C.) Yes No Sig: Take 40 mg by mouth daily. rosuvastatin (CRESTOR) 40 mg tablet No No Sig: Take 1 Tablet (40 mg) by mouth daily. Facility-Administered Medications: None Medication Allergies: Allergies Allergen Reactions ??? Penicillins Hives Family History: Family History Problem Relation Name Age of Onset ??? Cancer Father ??? Stroke Mother ??? Diabetes Mother ??? No Known Problems Sister ??? Diabetes Brother ??? No Known Problems Daughter ??? Diabetes Brother Social History: Social History Tobacco Use ??? Smoking status: Never Smoker ??? Smokeless tobacco: Not on file Substance Use Topics ??? Alcohol use: Yes Alcohol/week: 5.0 standard drinks Types: 5 Cans of beer per week Comment: social Review of Systems: Gen: No fever or chills Eyes: No visual changes Ears: No change in hearing Endocrine: No heat or cold intolerance Pulm: No cough or SOB Cardiac: No chest pain or orthopnea GI: No nausea, vomiting, constipation or diarrhea : No hematuria, urgency or frequency Musculoskeletal: No pain or weakness Neuro: No numbness or tingling Psych: No anxiety or depression Skin: No rashes or eruptions All other ROS reviewed and are negative Physical Exam: Patient Vitals for the past 8 hrs: BP Temp Temp src Pulse Resp SpO2 Weight 10/25/21 1100 135/75 -- -- 73 19 96 % -- 10/25/21 1000 (!) 151/80 -- -- 70 18 97 % -- 10/25/21 0949 (!) 145/78 -- -- 67 17 98 % -- 10/25/21 0843 136/73 97.8 ??F (36.6 ??C) Oral 70 18 98 % 127.5 kg (281 lb 1.4 oz) General: Alert, awake. Able to answer simple questions. He has laceration on the forehead, nose. Heart: Regular rate and rhythm, S1, S2 normal, no murmur, click, rub or gallop. Lungs: Clear to auscultation bilaterally Abdomen: Soft, non-tender. Bowel sounds times four. No masses, No organomegaly. Extremities: No clubbing, cyanosis or edema Skin: Skin color, texture, turgor normal. No rashes or lesions. Warm and dry. Head: Normocephalic, atraumatic Neck: Supple, symmetrical, trachea midline, no adenopathy. Neuro: CNII-XII grossly intact. Strength is good in all the 4 extremities. Gait not tested. Data Base: Lab: Results for orders placed or performed during the hospital encounter of 10/25/21 (from the past 24 hour(s)) POC PROTIME/INR Result Value Ref Range INR POC 1.0 0.9 - 1.1 PTT Result Value Ref Range PTT 33.1 24.4 - 36.4 seconds PROTIME-INR Result Value Ref Range PROTIME 14.6 12.7 - 15.1 Seconds INR 1.1 0.9 - 1.1 CBC WITH DIFFERENTIAL Result Value Ref Range WBC 5.6 4.0 - 9.8 K/uL RBC 3.97 (L) 4.50 - 5.40 M/uL HEMOGLOBIN 12.8 (L) 13.6 - 16.5 g/dL HEMATOCRIT 38.1 (L) 40.0 - 48.0 % MCV 96.0 82.0 - 99.0 fL MCH 32.2 27.2 - 32.6 pg MCHC 33.6 31.5 - 35.5 g/dL RDW 12.0 11.5 - 14.5 % RDW-STDEV 42.4 37.1 - 48.7 fL PLATELETS 136 (L) 140 - 350 K/uL MPV 10.3 9.3 - 12.4 fL NEUTROPHILS 62 % LYMPHOCYTES 25 % MONOCYTES 10 % EOSINOPHILS 2 % BASOPHILS 0 % IMMATURE GRANULOCYTES 0 % NEUTROPHIL ABSOLUTE 3.44 1.90 - 7.00 K/uL LYMPHOCYTE ABSOLUTE 1.41 0.70 - 4.50 K/uL MONOCYTE ABSOLUTE 0.58 0.10 - 1.30 K/uL EOSINOPHIL ABSOLUTE 0.11 0.00 - 0.70 K/uL BASOPHILS ABSOLUTE 0.02 0.00 - 0.20 K/uL IMMATURE GRANULOCYTES ABSOLUTE 0.02 0.00 - 0.03 K/uL COMPREHENSIVE METABOLIC PANEL Result Value Ref Range SODIUM 140 136 - 145 mmol/L POTASSIUM 4.2 3.5 - 5.0 mmol/L CHLORIDE 102 98 - 107 mmol/L CO2 25 22 - 29 mmol/L CALCIUM 10.1 8.6 - 10.2 mg/dL BUN 19 6 - 20 mg/dL CREATININE 1.25 (H) 0.67 - 1.17 mg/dL GLUCOSE 132 (H) 74 - 99 mg/dL TOTAL PROTEIN 7.5 6.7 - 8.6 g/dL ALBUMIN 4.3 3.5 - 5.2 g/dL BILIRUBIN TOTAL 0.9 0.3 - 1.2 mg/dL ALKALINE PHOSPHATASE 73 40 - 129 U/L AST 32 <41 U/L ALT 39 <42 U/L GFR >60 >=60 mL/min/1.73 sq meter ANION GAP 13 8 - 16 mmol/L TYPE AND SCREEN Result Value Ref Range ABO GROUP O RH (D) TYPE Positive ANTIBODY SCREEN Negative TROPONIN BASELINE, 5TH GEN Result Value Ref Range TROPONIN T, BASELINE 5TH GEN 16 (H) <=15 ng/L VERIFICATION BLOOD GROUP Result Value Ref Range ABO GROUP O RH (D) TYPE Positive TROPONIN 2 HR, 5TH GEN Result Value Ref Range TROPONIN T, 2 HR 5TH GEN 15 <=15 ng/L DELTA 2HR TROPONIN T -1 See Interp. MRI of the brain done on admission shows: FINDINGS: Ventricles are midline without shift, dilatation or mass effect. There is a diffusion-positive FLAIR positive infarct to the left lateral medulla. This is smaller than on the prior examination and is felt to be a subacute infarct at this point. No other acute infarct is seen. A tiny T2 bright dot is seen in subcortical white matter of the right superior frontal gyrus. No hemorrhage is seen. Flow void is present in the vertebral arteries and basilar artery. ?? 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 Findings were discussed personally with Dr. Maradiaga at time of this dictation (0934 hours). CTA head and neck was done in the ED-formal report is pending CTA head and maxillofacial were done in the ED: ?? IMPRESSION: No infarct, mass or intracranial hemorrhage. Fracture of nasal bones proper and nasal processes of maxilla. CT FACIAL BONES: There is soft tissue swelling over the nose. Depressed fracture of nasal bones proper is seen. Fractures of nasal processes of maxillae are noted. Anterior nasal spine appears to be fractured. There appear to be fractures of the sockets of the central and lateral maxillary incisors on the left as well as the left maxillary canine tooth. Right and left hemimandibles appear intact. Prominent rightward nasal septal deviation is noted. There is extensive congestion of nasal passages. Inferior right maxillary sinus retention cysts are noted. Bela bullosa deformities of middle nasal turbinates are noted. Orbital floors and lamina papyracea are intact. Zygomaticofrontal sutures and orbital floors are intact. IMPRESSION: Virtually nondisplaced fractures of sockets of left central and lateral maxillary incisor and maxillary canine tooth. Fracture of anterior nasal spine and nasal bones proper and nasal processes of maxillae. Maxillary sinus retention cyst. CT scan of cervical spine: Craniocervical junction is normal. Occipital condyles are intact. C1 ring is intact. Prevertebral soft tissue thickness is normal. Predental space is normal. Dens is intact. C2-3 is without fracture. C3 ring is intact. C3-4 is without fracture. Anterior osteophyte formation is seen at C3-4. C4 ring is intact. C4-5 is without fracture. C5 ring is intact. C5-6 is without fracture. C6 ring is intact. C6-7 has anterior and posterior osteophyte formation. No fracture seen. C7 ring is intact. C7-T1 is without fracture. No intra or paraspinal hemorrhage is seen. IMPRESSION: Cervical spondylosis. No fracture or dislocation Echo done on 10/06/2021 showed: Left ventricle: The cavity size was normal. Wall thickness was normal. Global systolic function was normal. The estimated ejection fraction was 60%. - Aortic valve: Not well visualized. Trileaflet; moderately thickened, moderately calcified leaflets. There was moderate to severe stenosis. The mean systolic gradient is 17mm Hg. The peak systolic gradient is 32mm Hg. The valve area by the velocity-time integral method is 1.1cm^2. - Left atrium: The atrium was normal in size. - Right ventricle: The cavity size was normal. Systolic function was normal. - Atrial septum: Agitated saline contrast study shows no [id number] shunt. 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 He went home and had been doing well. He leans towards his left side while ambulating, he has been using a cane recently at home. He was doing well, doing outpatient PT OT. He stays at home with his spouse. This morning he complained of dizziness and fell in the bathroom with face down. He did not lose any consciousness. CAT scan of the head is negative for any acute intracranial hemorrhage. CTA head and neck is negative for any stenosis. MRI brain shows evolving left lateral medullary stroke, no acute stroke is noted. Neurology recommendations greatly appreciated. Neurology is following. He completed 3 weeks of dual antiplatelet therapy. Continue Plavix 75 mg, on Crestor target LDL less than 70. Per neurology his symptoms are most likely related to recurrence of strokelike symptoms. Rule out orthostatic hypotension. Check orthostatic vital signs when able. Also concern for postconcussion syndrome. Dizziness. Continue meclizine. Continue PT OT Fracture of the nasal bone and nasal processes of the maxilla noted on the initial CAT scan done inthe ED (please see the detailed report). OMF consulted from the ED. Further recommendations as per OMF. Titrating analgesics Hypertension. DISTRIBUTION ENGINEER Coreg, clonidine, Norvasc. Restart . Per neurology, normotension is the goal. For head laceration -repair was done in the ED. Continue local wound care.. Hyperlipidemia. DISTRIBUTION ENGINEER Crestor Speech therapy to follow for bedside swallow Type 2 diabetes mellitus. Recent A1c 7.1. On hyperglycemia pathway. Monitor sugars closely and titrate medicines as needed. History of NATALY. Continue CPAP BMI 38 GI prophylaxis. On PPI PT OT Fall precautions DVT prophylaxis. On SCD. Plan to start chemical prophylaxis once ok with neurology. Disposition. Pending hospital course and PT OT recommendations. Discussed the hospital course and plan with the patient, his spouse and daughter present the bedside. Answered the questions and concerns. Arsenio Ocasio MD documented in this encounter Consult Notes * Rodriguez Power, MARIELY - 10/26/2021 10:20 AM CDTAssociated Order(s): IP CONSULT TO ORAL SURGERY 56 y/o male admitted following GLF. States that he fell in the bathroom. - LOC. Of note was had recent stroke. Currently reports minimal facial pain. OMS consulted regarding nasal bone fracture and dentoalveolar fracture appreciated on CT imaging. Past Medical History: Diagnosis Date ??? Diabetes mellitus ??? HTN (hypertension) ??? Hyperlipidemia ??? PUD (peptic ulcer disease) Past Surgical History: Procedure Laterality Date ??? HX APPENDECTOMY ??? HX LUMBAR LAMINECTOMY Left Allergies Allergen Reactions ??? Penicillins Hives No current facility-administered medications on file prior to encounter. Current Outpatient Medications on File Prior to Encounter Medication Sig Dispense Refill ??? losartan-hydroCHLOROthiazide (HYZAAR) 100-12.5 mg tablet Take 1 Tablet by mouth daily. ??? diclofenac sodium (VOLTAREN) 75 mg Tablet, Delayed Release (E.C.) Take 75 mg by mouth 2 times daily. ??? dulaglutide (TRULICITY) 1.5 mg/0.5 mL injection Inject 1.5 mg by subcutaneous injection every 7days. Mondays ??? rosuvastatin (CRESTOR) 40 mg tablet Take 1 Tablet (40 mg) by mouth daily. 30 Tablet 0 ??? aspirin (RAKAN CHEWABLE) 81 mg Tablet, Chewable Starting 10/08, Chew 1 Tablet (81 mg) by mouth daily with breakfast. 19 Tablet 0 ??? clopidogreL (PLAVIX) 75 mg Tablet Take 1 Tablet (75 mg) by mouth daily. 30 Tablet 0 ??? ondansetron (ZOFRAN ODT) 4 mg Tablet, Rapid Dissolve Take 1 Tablet (4 mg) by mouth every 6 hours as needed for Nausea/Emesis. Dissolve tablet on top of tongue, then swallow with saliva. 15 Tablet0 ??? metFORMIN (GLUCOPHAGE) 1,000 mg tablet Take 1,000 mg by mouth 2 times daily with meals. ??? cloNIDine HCL (CATAPRES) 0.1 mg tablet Take 0.1 mg by mouth 2 times daily. ??? pantoprazole (PROTONIX) 40 mg Tablet, Delayed Release (E.C.) Take 40 mg by mouth daily. ??? carvediloL (COREG) 25 mg tablet Take 25 mg by mouth 2 times daily with meals. ??? cyclobenzaprine (FLEXERIL) 10 mg tablet Take 10 mg by mouth 2 times daily as needed for Spasm. ??? meclizine 25 mg Tablet, Chewable Take 25 mg by mouth every 6 hours. ??? glipiZIDE (GLUCOTROL) 10 mg tablet Take 10 mg by mouth daily with breakfast. ??? amLODIPine (NORVASC) 10 mg tablet Take 10 mg by mouth daily. ??? cephALEXin (KEFLEX) 500 mg capsule Take 500 mg by mouth 4 times daily. Social History Socioeconomic History ??? Marital status: [...] on file Housing Stability: Not on file Vitals: 10/26/21 0905 BP: (!) 143/62 Pulse: 76 Resp: 16 Temp: 97.8 ??F (36.6 ??C) SpO2: 96% Results for orders placed or performed during the hospital encounter of 10/25/21 (from the past 24 hour(s)) TROPONIN 2 HR, 5TH GEN Result Value Ref Range TROPONIN T, 2 HR 5TH GEN 15 <=15 ng/L DELTA 2HR TROPONIN T -1 See Interp. POC GLUCOSE Result Value Ref Range GLUCOSE POC 109 (H) 74 - 99 mg/dL SPECIMEN SOURCE, GLUCOSE POC Whole Blood POC GLUCOSE Result Value Ref Range GLUCOSE POC 145 (H) 74 - 99 mg/dL SPECIMEN SOURCE, GLUCOSE POC Whole Blood COMMENT, GLU POC Notified RN/MD POC GLUCOSE Result Value Ref Range GLUCOSE POC 107 (H) 74 - 99 mg/dL SPECIMEN SOURCE, GLUCOSE POC Whole Blood COMMENT, GLU POC Notified RN/MD Exam: Gen: Alert and oriented x 4, NAD, WN/WD H: Normocephalic/atraumatic, no scalp deformity, no swelling E: EOMI, PERRLA, VA/VF grossly intact E: No deformity, conversational hearing intact, no otorrhea. No villeda sign N:Right nostril patent. Left nostril full of blood crusting. Nasal complex midline. No rhinorrhea. T: Trachea midline, neck soft. No cervical tenderness. Oral: JEOVANY ~40mm. No vestibular swelling or erythema. Maxilla and mandible stable. Upper lip with moderate swelling and ecchymosis. Anterior teeth tender to manipulation with rough edges/chips. Occlusion stable and repeatable.FOM soft, non-tender, non-elevated. OP without fullness or erythema. CV: RRR, No peripheral edema, +2 peripheral pulses Resp: Symmetric chest wall rise, normal work of breathing Neuro: CN V and VII intact bilaterally. Psych: mood and affect normal, cooperative with exam. Assessment: 56 y/o male ASA III s/p GLF sustaining bilateral nondisplaced nasal bone fractures and a nondisplaced fracture of the anterior nasal spine and anterior maxillary alveolus. No immediate surgical concerns. No acute septal deviation or hematoma appreciated on CT imaging. Plan: -Non operative management. -Warm wash cloth and bacitracin to the lower lip and nostril crusting to soften the scabbing for removal. -Soft diet for the next 6 weeks -Sleep with head of bed elevated for the next 7 days -No strenuous activities for the next 6 weeks -Follow up with general dentist in 3 weeks for additional review -Follow up with me as needed. -Call with any concerns. Rodriguez Power DDS film recordist Fellow Pager: [phone] * Amelie Arzate ANP - 10/25/2021 10:32 AM CDT Stroke/Neurology Service New Patient Consultation Note Chief Complaint/History of Present Illness: Jose De Jesus is a 56 y.o. male with known medical history hypertension, hyperlipidemia, diabetes type 2, recent left medullary stroke (10/2021), obstructive sleep apnea (has not started on CPAP), who presents to [facility]'s emergency department with complaint of dizziness and associated fall resulting orofacial injuries. The patient reports he was at his baseline yesterday and went to work around 11 PM. He woke up around 5 AM this morning feeling dizzy, went back to bed. The patient then woke up around 7 AM and felt dizzy, worse with standing, felt like his recent stroke. He got up to take a shower and while bending over, he lost his balance and fell onto his face. The patient denies loss of consciousness. He noted to have multiple laceration to his face and nose. The patient denies any focal weakness or disturbance of sensation, denies any facial droop, double vision, or difficulty swallowing. He denies chest pain or shortness of breath. At the ED: CT head showed no acute intracranial hemorrhage. CTA is negative for emergent proximal LVO significant flow-limiting intracranial stenosis. MRI brain shows no acute stroke. A recent left lateral medullary stroke visualized. The patient discovered to have nondisplaced fractures of the sockets of left central and lateral maxillary incisor and maxillary canine tooth; fractures of anterior nasal spine and nasal bones properand nasal processes of maxillae identified. The patient reports feeling dizzy while laying down. He also feels dizzy with position change from laying to sitting. During transfer from CT table to the stretcher, the patient noted to have wide- based unstable gait. Additional history: The patient was recently admitted here in early October 2021 when he presented with complaints of dizziness and unsteady gait (veering to the left), 4 days prior to admission. Outpatient MRI showed acute left lateral medullary stroke. Etiology of stroke thought to be small blood vessel disease. Echocardiogram was grossly unremarkable. CT head and neck was notable for left P2 moderate stenosis. The patient was started on dual antiplatelet therapy with aspirin 81 mg and Plavix 75 mg daily for 3 weeks with plan to change to Plavix 75 mg daily monotherapy. In addition, the patient was started on Crestor 40 mg nightly. The patient was also started on hydrochlorothiazide/losartan that was put on hold with instruction to resume the medication for persistently elevated blood pressures. Patient's blood pressure has been fairly well controlled with systolic blood pressure in 130s. Since his stroke, the patient was experiencing on and off dizziness, worse with standing up or bending over. He has been slightly leaning to the left while walking and on the right no focal deficits. Location: Dizziness Severity: Moderate to severe Timing: Upon awakening around 5 AM on Duration: Ongoing Modifying factors: Recent left medullary stroke, hypertension, hyperlipidemia, diabetes type 2, blood pressure medication change Associated signs and symptoms: Fall with orofacial injury DISTRIBUTION ENGINEER Aspirin Dosing: ASA 81 mg DISTRIBUTION ENGINEER Clopidogrel Dosinmg DISTRIBUTION ENGINEER statin Dosing: Crestor 40 mg nightly DISTRIBUTION ENGINEER anticoagulation: none Patient is not a smoker Last known to be well (Last seen Normal): Around 11 PM on 10/24/2021 Patient is not a candidate for thrombolytic therapy. If not, reasoning against administration of tPA-recent stroke, no acute stroke on MRI Patient is not a candidate for endovascular clot removal. If not, reasoning against endovascular therapy -no emergent proximal LVO suspected on noted on CTA head and neck Family History: Patient denies family history of stroke Past Medical History: Diagnosis Date ??? Diabetes mellitus ??? HTN (hypertension) ??? Hyperlipidemia ??? PUD (peptic ulcer disease) Past Surgical History: Procedure Laterality Date ??? HX APPENDECTOMY ??? HX LUMBAR LAMINECTOMY Left Family History Problem Relation Name Age of Onset ??? Cancer Father ??? Stroke Mother ??? Diabetes Mother ??? No Known Problems Sister ??? Diabetes Brother ??? No Known Problems Daughter ??? Diabetes Brother Social History Socioeconomic History ??? Marital status: [...] ??? Penicillins Hives Prior to Admission Medications: (Not in a hospital admission) Active Hospital Medications: Current Facility-Administered Medications Medication Dose Route Frequency Provider Last Rate Last Admin ??? [COMPLETED] iopamidoL (ISOVUE-300) 61% injection (drawn from multi-use bulk pack) 120 mL 120 mLIV intra-proc ONE time Fadi Pan MD 120 mL at 10/25/21921 ??? [COMPLETED] sodium chloride flush injection 10 mL 10 mL IV ONE time only Fadi Pan MD 10 mL at 10/25/21921 ??? [COMPLETED] sodium chloride 0.9% bolus solution 90 mL 90 mL IV ONE time only Fadi Pan MD5,400 mL/hr at 10/25/21921 90 mL at 10/25/21921 ??? [COMPLETED] tetanus and diphtheria toxoids and acellular pertussis vaccine PF (adult) (Tdap) (ADACEL) injection syringe 0.5 mL 0.5 mL IM ONE time only Jesús Quiñones MD 0.5 mL at 10/25/21 1007 ??? [COMPLETED] morphine 4 mg/mL injection 4 mg 4 mg IV ONE time only Jesús Quiñones MD 4 mg at 10/25/21 1003 ??? lidocaine PF 1% (XYLOCAINE MPF) injection 3 mL 3 mL Infiltration ONE time only Jesús Quiñones MD ??? LIDOCAINE HCL 20 MG/ML (2 %) INJECTION SOLUTION (CABINET OVERRIDE) Current Outpatient Medications Medication Sig Dispense Refill ??? rosuvastatin (CRESTOR) 40 mg tablet Take 1 Tablet (40 mg) by mouth daily. 30 Tablet 0 ??? aspirin (RAKAN CHEWABLE) 81 mg Tablet, Chewable Starting 35, Chew 1 Tablet (81 mg) by mouth daily with breakfast. 19 Tablet 0 ??? clopidogreL (PLAVIX) 75 mg Tablet Take 1 Tablet (75 mg) by mouth daily. 30 Tablet 0 ??? ondansetron (ZOFRAN ODT) 4 mg Tablet, Rapid Dissolve Take 1 Tablet (4 mg) by mouth every 6 hours as needed for Nausea/Emesis. Dissolve tablet on top of tongue, then swallow with saliva. 15 Tablet0 ??? glipiZIDE (GLUCOTROL) 10 mg tablet Take 10 mg by mouth daily with breakfast. ??? metFORMIN (GLUCOPHAGE) 1,000 mg tablet Take 1,000 mg by mouth 2 times daily with meals. ??? cloNIDine HCL (CATAPRES) 0.1 mg tablet Take 0.1 mg by mouth 2 times daily. ??? pantoprazole (PROTONIX) 40 mg Tablet, Delayed Release (E.C.) Take 40 mg by mouth daily. ??? amLODIPine (NORVASC) 10 mg tablet Take 10 mg by mouth daily. ??? carvediloL (COREG) 25 mg tablet Take 25 mg by mouth 2 times daily with meals. ??? cyclobenzaprine (FLEXERIL) 10 mg tablet Take 10 mg by mouth 2 times daily as needed for Spasm. ??? meclizine 25 mg Tablet, Chewable Take 25 mg by mouth every 6 hours. ??? cephALEXin (KEFLEX) 500 mg capsule Take 500 mg by mouth 4 times daily. Review of Systems: 10+ systems were reviewed. Constitutional: No fevers or chills. + Facial pain Psychiatric: No depression/anxiety. Skin: No rashes. Respiratory: No shortness of breath. Cardiovascular: No chest pain. GI: No nausea/vomiting. : No incontinence. Endocrine: No polydipsia. Musculoskeletal: No muscle pain/joint pain. Neurologic: as per HPI and otherwise negative Hematologic: No excessive bruising. General Medical Examination: Vitals: BP (!) 145/78 (BP Location: Right arm, Patient Position (BP): Sitting) Pulse 67 Temp 97.8 ??F (36.6 ??C) (Oral) Resp 17 Wt 127.5 kg (281 lb 1.4 oz) SpO2 98% BMI 38.12 kg/m?? Gen appearance: Awake, alert, cooperative and in no acute distress Eyes: No conjunctival injection. Anicteric sclerae. See neurologic exam below for pupillary examination. HENT: Laceration to patient's left forehead, nose; nasal Fx. see neurologic examination below for assessment of hearing. [...] nerves II-XII examined: Grossly intact including: pupils equal and round and reactive to light, EOMI, Visual rowe full, hearing intact to conversation, face symmetric without ptosis or lid-lag or facial droop, speech is clear. Motor: Moves all extremities with no sign of focal weakness. No pronator drift. No drift in legs. Sensation: Patient reports coarse touch and pinprick is intact and symmetric. Coordination: Finger nose finger is intact bilaterally, with no significant ataxia or dysmetria present. Otherwise, movements are grossly coordinated, and no adventitious movements are seen. Reflexes: 2+ and symmetric. No pathologic reflexes noted. Gait: mildly wide-based, midly unstable NIH Stroke Scale: NIHSS, exam performed at time: 09:00 am 10/25/2021 LOC 0 (0=alert; 1=drowsy; 2=stuporous; 3=coma) QUESTIONS [...] grav; 4=0/5) LLE 0 (as above) ATAXIA 0 (0=nl; 1=unil one limb; 2=unil two limbs or yan) SENSORY 0 (0=nl; 1=partial; 2=dense) APHASIA 0 (0=nl; 1=mild dysphasia; 2=severe; 3=mute) DYSARTHRIA 0 (0=nl; 1=mild; 2=unintelligible) NEGLECT 0 (0=nl; 1=one modality; 2=sensory + visual) TOT NIHSS 0 Laboratory Data: Results for orders placed or performed during the hospital encounter of 10/25/21 (from the past 24 hour(s)) PTT Result Value Ref Range PTT 33.1 24.4 - 36.4 seconds PROTIME-INR Result Value Ref Range PROTIME 14.6 12.7 - 15.1 Seconds INR 1.1 0.9 - 1.1 CBC WITH DIFFERENTIAL Result Value Ref Range WBC 5.6 4.0 - 9.8 K/uL RBC 3.97 (L) 4.50 - 5.40 M/uL HEMOGLOBIN 12.8 (L) 13.6 - 16.5 g/dL HEMATOCRIT 38.1 (L) 40.0 - 48.0 % MCV 96.0 82.0 - 99.0 fL MCH 32.2 27.2 - 32.6 pg MCHC 33.6 31.5 - 35.5 g/dL RDW 12.0 11.5 - 14.5 % RDW-STDEV 42.4 37.1 - 48.7 fL PLATELETS 136 (L) 140 - 350 K/uL MPV 10.3 9.3 - 12.4 fL NEUTROPHILS 62 % LYMPHOCYTES 25 % MONOCYTES 10 % EOSINOPHILS 2 % BASOPHILS 0 % IMMATURE GRANULOCYTES 0 % NEUTROPHIL ABSOLUTE 3.44 1.90 - 7.00 K/uL LYMPHOCYTE ABSOLUTE 1.41 0.70 - 4.50 K/uL MONOCYTE ABSOLUTE 0.58 0.10 - 1.30 K/uL EOSINOPHIL ABSOLUTE 0.11 0.00 - 0.70 K/uL BASOPHILS ABSOLUTE 0.02 0.00 - 0.20 K/uL IMMATURE GRANULOCYTES ABSOLUTE 0.02 0.00 - 0.03 K/uL COMPREHENSIVE METABOLIC PANEL Result Value Ref Range SODIUM 140 136 - 145 mmol/L POTASSIUM 4.2 3.5 - 5.0 mmol/L CHLORIDE 102 98 - 107 mmol/L CO2 25 22 - 29 mmol/L CALCIUM 10.1 8.6 - 10.2 mg/dL BUN 19 6 - 20 mg/dL CREATININE 1.25 (H) 0.67 - 1.17 mg/dL GLUCOSE 132 (H) 74 - 99 mg/dL TOTAL PROTEIN 7.5 6.7 - 8.6 g/dL ALBUMIN 4.3 3.5 - 5.2 g/dL BILIRUBIN TOTAL 0.9 0.3 - 1.2 mg/dL ALKALINE PHOSPHATASE 73 40 - 129 U/L AST 32 <41 U/L ALT 39 <42 U/L GFR >60 >=60 mL/min/1.73 sq meter ANION GAP 13 8 - 16 mmol/L TYPE AND SCREEN Result Value Ref Range ABO GROUP O RH (D) TYPE Positive ANTIBODY SCREEN Negative TROPONIN BASELINE, 5TH GEN Result Value Ref Range TROPONIN T, BASELINE 5TH GEN 16 (H) <=15 ng/L Imaging: Reviewed in [facility], Brain imaging personally reviewed; Other studies reviewed in EMR; Relevant stroke data: CT Head (10/25/2021): images reviewed person, no acute intracranial hemorrhage noted CTA Head and Neck + CT perfusion (10/25/2021): images reviewed in person, no emergent proximal LVO noted IMPRESSION: CT perfusion: No evidence of irreversible, [...] carotid or vertebral circulation of the neck. MRI Brain (10/25/2021): Images reviewed in person, agree with neuroradiology read As per neuroradiology: FINDINGS: Ventricles are midline without shift, dilatation or mass effect. There is a diffusion-positive FLAIR positive infarct to the left lateral medulla. This is smaller than on the prior examination and is felt to be a subacute infarct at this point. No other acute infarct is seen. A tiny T2 bright dot is seen in subcortical white matter of the right superior frontal gyrus. No hemorrhage is seen. Flow void is present in the vertebral arteries and basilar artery. 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 Previous studies: MRI Brain without contrast was done in OSH (10/05/2021): Revealed acute left medullary infarction. CTA Head and Neck (10/05/2021): 1. Non-contrast head CT demonstrates no acute intracranial hemorrhage. Acute ischemic infarct in the left lateral medulla seen on the prior brain MRI is not visible by CT. ?? 2. CTA of the neck demonstrates no acute abnormality. No high-grade ICA stenosis. ?? 3. CTA of the head demonstrates no arterial occlusion or high grade stenosis. Moderate focal stenosis of the left P2 OUTSOLE HANDLER segment. ECHO with bubble study (10/06/2021): STUDY CONCLUSIONS: SUMMARY: - Left ventricle: The cavity size was normal. Wall thickness was normal. Global systolic function was normal. The estimated ejection fraction was 60%. - Aortic valve: Not well visualized. Trileaflet; moderately thickened, moderately calcified leaflets. There was moderate to severe stenosis. The mean systolic gradient is 17mm Hg. The peak systolic gradient is 32mm Hg. The valve area by the velocity-time integral method is 1.1cm^2. - Left atrium: The atrium was normal in size. - Right ventricle: The cavity size was normal. Systolic function was normal. - Atrial septum: Agitated saline contrast study shows no [id number] shunt. LDL (10/06/2021): 85 Hb A1C (10/06/2021): 7.1 Assessment: This is a 56 year old male with a h/o hypertension, hyperlipidemia, diabetes type 2, recent left lateral medullary stroke (10/2021), obstructive sleep apnea (has not started on CPAP), who presents with complaints of dizziness and associated fall resulting orofacial injuries. CT has shown no acute intracranial hemorrhage. CTA head and neck is negative for emergent proximal or significant flow-limiting stenosis. MRI brain showed evolving left lateral medullary stroke, no acute stroke identified, confirmed with neuroradiology. Patient's symptoms most likely related to recrudescence of strokelike symptoms. Cannot rule out orthostatic hypotension contributing given reports symptoms with position change. Dizziness while laying down could be related to postconcussion syndrome as well. Impression/plan: #1: Dizziness #2: Fall at home with orofacial injury #3: Recent left medullary infarct with residual imbalance and reported intermittent dizziness - MRI brain negative for acute stroke, no need for stroke pathway - No need for permissive hypertension at this time, okay to treat blood pressure with normotension is essentially the goal - Recently completed stroke work-up as above - We will defer infectious/metabolic, laceration repair and work-up to the ED team - Resume Plavix 75 mg daily when able (patient has completed 3 weeks of dual antiplatelet therapy aspirin 81 mg + Plavix 75 mg) - Continue Crestor 40 mg nightly and target LDL <70 - Check orthostatic vital signs when able - PT/OT evaluation Plan of care was discussed with the patient and his family The patient was seen examined together with Dr. Era Maradiaga No additional new recommendation at this time Please, call with questions Thank you for the opportunity to participate in care of this patient Communication: Case discussed in person with Dr. Jesús Quiñones, ED MD and team Neurology post-hospital follow up plan: Recommend patient follows up with Dr. Trent, [facility] as outpatient, as it was planned Please note, if you have a question about this patient from 7 AM to 7 PM, please Secure chat the author of this note. If it is 7 PM to 7 AM, please page the Neurology consult pager at [phone]. Author: HERMINIO Mckeon as of: 10/25/2021 This note was generated with [employer] voice recognition software and may contain flow worker errors. Associated attestation - Era Maradiaga MD - 10/25/2021 3:25 PM CDT Stroke/Neurology Attending Attestation Patient seen and examined with the Nurse Practitioner (Amelie Arzate) on 10/25/2021. I have reviewed the note as dictated and agree with the assessment and plan, as dictated, with the exceptions, if any, noted below. 56 y/o male with h/o recent left medullary ischemic infarct (10/2021), HTN, HLD, DM2 presented with worsening of symptoms of dizziness upon awakening today. Patient fell due to dizziness and found to have multiple facial fractures. NIHSS 0. CT head and CT angio head and neck were negative for acute process. Taken for STAT MRI based on Wake up protocol. MRI Brain was negative for acute infarct, only showing recent medullary infarct. EXAM: Gen appearance: Awake, alert, cooperative and in no acute distress Eyes: No conjunctival injection. Anicteric sclerae. HENT: Laceration on face extending from left eyebrow doen to nose Neck: Trachea midline; grossly normal range of motion, Cardiovascular: Regular rate and rhythm, Respiratory: Normal respiratory effort, non-labored breathing. Clear to auscultation bilaterally inanterior rowe. Musculoskeletal / Extremities: No cyanosis or clubbing in fingers or toes. See Neurologic examination for assessment of muscle strength. Psychiatric: Judgement and insight is appropriate. See neurologic examination for mental status exam. Mental status: AAOx4, fluent language, follows simple commands CN: PERRL, VFF, EOMI, face symmetric, sensation intact in V1-V3 bilaterally to light touch, no dysarthria Motor: strength 5/5 throughout Sensory:- intact to light touch throughout Coordination: no ataxia on FNF or HKS Labs images: personally reviewed and discussed as above Impression and plan: #Acute dizziness - Likely recrudescence of old stroke symptoms - No new ischemic infarct - Continue plavix and statin - PT/OT evaluation - Defer rest of medical care to primary team - Neurology outpatient follow-up in 1-2 months - No further neurology recs Era Maradiaga MD as of: 10/25/2021 at: 3:10 PM This note was generated with [employer] voice recognition software and may contain flow worker errors. documented in this encounter ED Notes * Chely Bhat RN - 10/25/2021 2:03 PM CDT Pt updated with plan of care. Pt/family aware of floor change and waiting for transport. Vitals obtained. * Cheryl Santiago RN - 10/25/2021 12:40 PM CDT Hospitalist at bedside. Per hospitalist, okay for pt to eat. Sugar free snacks and soda provided, family provided with water. Pt medicated per OCT. Patient/family has been informed about benefits and any potential clinically significant side effects or other concerns regarding the administration of the drug they have just been given. They deny further needs. Call light within reach. * Cheryl Santiago RN - 10/25/2021 10:40 AM CDT Pt began feeling nauseous during lac repair, verbal order obtained from Dr Quiñones. Pt medicated perMAR. Patient/family has been informed about benefits and any potential clinically significant side effects or other concerns regarding the administration of the drug they have just been given. Dr Quiñones remains at bedside for lac repair. * Cheryl Santiago RN - 10/25/2021 10:[address] Quiñones at bedside for lac repair. * Cheryl Santiago RN - 10/25/2021 10:10 AM CDT Pt medicated per MAR. Patient/family has been informed about benefits and any potential clinically significant side effects or other concerns regarding the administration of the drug they have just been given. Pt and family updated on POC and are agreeable at this time. Xray at bedside. Call light within reach. * Cheryl Santiago RN - 10/25/2021 9:48 AM CDT MRI complete, pt returned to ED 4 with this RN and stroke team. VSS. Pt remains dizzy, especially with movement, and is A&Ox4. * Cheryl Santiago RN - 10/25/2021 9:18 AM CDT Pt ambulated with standby assistance x3 from CT table to stretcher. Pt exhibits slow, shuffling gate and noted to be leaning slightly to left and states dizzy but denies n/v. Pt to MRIwith this RN and stroke team. * Cheryl Santiago RN - 10/25/2021 8:50 AM CDT Pt to ED w/ dizziness. Pt woke up around 0500 this am from a dream and felt extremely dizzy. He reports being able to fall asleep until approx 0700. At that time he woke up to go to the restroom. While in restroom he fell forward, striking his face, nose and mouth. Lacerations noted near inner eye/above eyebrow, under nose/ upper lip; bleeding is slow and controlled. Pt denies n/v. There is no facial droop, arm drift, leg drift, slurred speech at this time. Pushes, pulls, and food service tray attendant are all bilaterally strong and equal. A&Ox4. Pt has hx of past stroke 10/01/21. Pt was in [place] at the time, states his symptoms were similar with feeling constant, sudden dizziness. He went to and ER in [place] where CT and EKG were done but did not show stroke. Upon returning to [place] earlier this month, he visited another ER who diagnosed him with vertigo and recommended he begin PT. Pt's PT advised he receive an MRI. Stroke was confirmed 10/05/21 w/ outpatient MRI. Pt reports constant dizziness since stroke but states he felt improvement yesterday and was able to ambulate without his cane for the first time. * Jessie Hernandez - 10/25/2021 8:45 AM CDT Code Stroke Initials RR Paged [phone] Orders entered per protocol Emergency Department Adult Stroke Protocol [facility] Approved by: [facility]-Medical Executive Committee Approval date: 03/24/2021 ORDERS ARE ENTERED ???PER PROTOCOL?? Nursing Orders: o Obtain ACTUAL weight in kilograms o Complete BEFAST exam o Apply continuous cardiac, non-invasive blood pressure, and pulse oximetry monitors o Insert peripheral IV o Complete dysphagia screening - if patient fails make patient NPO and consult INCUBATOR MACHINE OPERATOR o Complete NIHSS o Complete Neuro Checks Q2 hours. See below for instruction if patient is receiving t-PA o Keep NPO Laboratory Orders: Send blood specimen for lab via secure tube in pneumatic system o CBC (NCO1491) o POC Glucose (POC10) o CMP (LAB17) o POC PT-INR (POC15) and PT-INR (FKU425 o PTT (LAB 325) o Type and Screen (BNY515) o Troponin Panel ([id number]), includes: - Troponin T, 5th Generation, Baseline ([id number]) - Troponin T, 5th Generation, 2 Hour ([id number]) - Troponin T, 5th Generation, 6 Hour ([id number]) Diagnostic Test Orders: o CT Head WO Contrast Stroke Protocol ([id number]) - be sure to enter indication in EHR o CTA Head Neck W WO + CT CEREBRAL PERFUSION (CT 1325) if NIHSS is > 6 OR if last knows well is > 4.5 hours * If there is concern about renal function or contrast dye allergy, contact ED provider or Neurologist o EKG (EKG1) - be sure to include indication. o CXR PA or LA (OO1362) - Be sure to enter indication in EHR. Medication Orders: o Sodium chloride 0.9% (normal saline) IV flush 5 mLs every 8 hours o Sodium chloride 0.9% (normal saline) IV flush 5 mLs PRN for saline lock or medication administration Additional Instructions: o If acute stroke, ensure office secretary has paged stroke team. o Ensure documentation of ED medical provider arrival time (within 10 min) and Stroke Team arrival time (within 15 min) o If patient is an IV t-PA candidate: - Initiate additional 18G peripheral IV - If there is a question about whether the patient will be able to void, a urinary catheter should be inserted before infusion or held at lest 30 minutes after infusion. Do not delay treatment with t-PA to place a urinary catheter. - Obtain VS and neurological checks PRIOR to t-PA administration. Then every 15 minutes x 2 hours, every 30 minutes x 6 hours, and every 1 hour x 16 hours. - Pharmacist prepares t-PA. Bolus administered over 1 minute per Alaris pump. Administer the remaining infusion dose over 1 hour per Alaris pump. o If patient is an Intra-Arterial (IA) candidate: - Initiate and/or assess patency of 2 large bore IVs (right arm PIV will be saved for IA procedure) - Insert indwelling urinary catheter (if not already completed) - ED RN 1 notifies the ED Clinical Durable Medical Equipment Repairer once decision made to proceed with IA therapy - ED Clinical Durable Medical Equipment Repairer notifies the ICU Durable Medical Equipment Repairer to accommodate the patient in ICU directly following the IA procedure. * eJsús Quiñones MD - 10/25/2021 8:31 AM CDTAssociated Order(s): Laceration Repair; Laceration Repair; Laceration Repair Images from the original note were not included. HISTORY OF PRESENT ILLNESS Jose De Jesus, a 56 y.o. male presents to the ED with a Chief Complaint of Dizziness Subjective 56 y/o M presents for evaluation. 10/01 patient was on vacation in [place] when he began having dizziness. Seen at while there withnegative CT head so sent home. 10/04 after returning home to [place], still with dizziness. Went to ED again with negative head CT so sent home. 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 Neurology consulted while here. 10/07 discharged with 3 weeks of DAPT, ASA and Plavix. Told to hold on HCTZ- losartan, with instructions to resume the medication for persistently elevated blood pressures. Since stroke patient has been slightly leaning to the left when ambulating, but otherwise no residual deficits. ~11:00 PM last night patient went to bed feeling at baseline. 5:00 AM this morning patient woke up with dizziness, but went back to sleep. 7:00 AM patient woke up with dizziness still present, similar to when he had stroke. He got up to take a shower, and while inside he was bending over but lost his balance and fell, hitting his face. No LOC. Now with multiple lacerations to face and nose. No vision changes, slurred speech, weakness, numbness. No chest pain, SOB, swelling. No abdominal pain, nausea, vomiting. PMH: HTN, HLD, DM2, NATALY (on CPAP), PUD History provided by: The patient and medical records Arrived by: Private vehicle REVIEW OF SYSTEMS Review of Systems Constitutional: Negative for chills and fever. HENT: Negative for nosebleeds and trouble swallowing. Eyes: Negative for photophobia, pain and visual disturbance. Respiratory: Negative for chest tightness and shortness of breath. Cardiovascular: Negative for chest pain and leg swelling. Gastrointestinal: Negative for abdominal pain, nausea and vomiting. Genitourinary: Negative for dysuria, flank pain and frequency. Musculoskeletal: Negative for back pain, myalgias and neck pain. Skin: Positive for wound. Negative for pallor and rash. Neurological: Positive for dizziness. Negative for speech difficulty, weakness, numbness and headaches. Psychiatric/Behavioral: Negative for confusion and hallucinations. PAST MEDICAL HISTORY REVIEWED MEDICAL: Patient has a past medical history of Diabetes mellitus, HTN (hypertension), Hyperlipidemia, and PUD (peptic ulcer disease). SURGICAL: Patient At least one of the histories has not been reviewed in over a year. Please Ernesto as Reviewedin the history section then refresh this Smart Link. FAMILY: Patient's family history includes Cancer in his father; Diabetes in his brother, brother, and mother; No Known Problems in his daughter and sister; Stroke in his mother. SOCIAL: reports that he has never smoked. He does not have any smokeless tobacco history on file. He reports current alcohol use of about 5.0 standard drinks of alcohol per week. He reports previous drug use. He reports being sexually active. No history on file. Social History Other Topics Concern ??? Not on file ALLERGIES Penicillins HOME MEDICATIONS Patient's Home Medications Current Home Medications AMLODIPINE (NORVASC) 10 MG TABLET ASPIRIN (RAKAN CHEWABLE) 81 MG TABLET, CHEWABLE CARVEDILOL (COREG) 25 MG TABLET CEPHALEXIN (KEFLEX) 500 MG CAPSULE CLONIDINE HCL (CATAPRES) 0.1 MG TABLET CLOPIDOGREL (PLAVIX) 75 MG TABLET CYCLOBENZAPRINE (FLEXERIL) 10 MG TABLET GLIPIZIDE (GLUCOTROL) 10 MG TABLET MECLIZINE 25 MG TABLET, CHEWABLE METFORMIN (GLUCOPHAGE) 1,000 MG TABLET ONDANSETRON (ZOFRAN ODT) 4 MG TABLET, RAPID DISSOLVE PANTOPRAZOLE (PROTONIX) 40 MG TABLET, DELAYED RELEASE (E.C.) ROSUVASTATIN (CRESTOR) 40 MG TABLET Medications Modified during this Encounter Medications Discontinued during this Encounter Objective PHYSICAL EXAM INITIAL VS BP: 136/73 (10/25/21842), Heart Rate: 70 bpm (10/25/21842), Resp: 18 (10/25/21842), Pulse: 70(10/25/21842), Temp: 97.8 ??F (36.6 ??C) (10/25/21842), Temp src: Oral (10/25/21842), SpO2: 98 % (10/25/21842), Height: (not recorded), Weight: 127.5 kg (281 lb 1.4 oz) (10/25/21842), BMI (Calculated): (not recorded) No LMP for male patient. Physical Exam Vitals and nursing note reviewed. Constitutional: Appearance: He is not diaphoretic. HENT: Head: Normocephalic. Laceration present. Comments: 4 cm left forehead laceration. 3 cm laceration to his lip by left nares. 2 cm laceration inside upper lip. Bruising and tenderness to nose. Nose: Nasal tenderness present. Comments: Blood in the left nares. Clot cleared. No septal hematoma Mouth/Throat: Lips: [place]. Mouth: Mucous membranes are moist. Pharynx: Oropharynx is clear. Eyes: General: Lids are normal. No scleral icterus. Extraocular Movements: Extraocular movements intact. Conjunctiva/sclera: Conjunctivae normal. Pupils: Pupils are equal, round, and reactive to light. Neck: Trachea: No tracheal deviation. Cardiovascular: Rate and Rhythm: Normal rate and regular rhythm. Heart sounds: Normal heart sounds. No murmur heard. No friction rub. No gallop. Pulmonary: Effort: Pulmonary effort is normal. No respiratory distress. Breath sounds: Normal breath sounds. No wheezing or rales. Chest: Chest wall: No tenderness. Abdominal: General: Bowel sounds are normal. There is no distension. Palpations: Abdomen is soft. There is no mass. Tenderness: There is no abdominal tenderness. There is no guarding or rebound. Musculoskeletal: General: No tenderness. Normal range of motion. Cervical back: Neck supple. No spinous process tenderness or muscular tenderness. Thoracic back: No tenderness. Lumbar back: No tenderness. Lymphadenopathy: Cervical: No cervical adenopathy. Skin: General: Skin is warm and dry. Coloration: Skin is not pale. Findings: No erythema or rash. Neurological: Mental Status: He is alert and oriented to person, place, and time. Cranial Nerves: No cranial nerve deficit (as tested). Sensory: No sensory deficit. Motor: No abnormal muscle tone. Coordination: Coordination normal. Comments: No arm or leg drift. Finger-nose [id number] normal Psychiatric: Speech: Speech normal. Behavior: Behavior normal. Behavior is cooperative. Thought Content: Thought content normal. Judgment: Judgment normal. DIAGNOSTICS LAB: CBC WITH DIFFERENTIAL - Abnormal Result Value WBC 5.6 RBC 3.97 (*) HEMOGLOBIN 12.8 (*) HEMATOCRIT 38.1 (*) MCV 96.0 MCH 32.2 MCHC 33.6 RDW 12.0 RDW-STDEV 42.4 PLATELETS 136 (*) MPV 10.3 NEUTROPHILS 62 LYMPHOCYTES 25 MONOCYTES 10 EOSINOPHILS 2 BASOPHILS 0 IMMATURE GRANULOCYTES 0 NEUTROPHIL ABSOLUTE 3.44 LYMPHOCYTE ABSOLUTE 1.41 MONOCYTE ABSOLUTE 0.58 EOSINOPHIL ABSOLUTE 0.11 BASOPHILS ABSOLUTE 0.02 IMMATURE GRANULOCYTES ABSOLUTE 0.02 COMPREHENSIVE METABOLIC PANEL - Abnormal SODIUM 140 POTASSIUM 4.2 CHLORIDE 102 CO2 25 CALCIUM 10.1 BUN 19 CREATININE 1.25 (*) GLUCOSE 132 (*) TOTAL PROTEIN 7.5 ALBUMIN 4.3 BILIRUBIN TOTAL 0.9 ALKALINE PHOSPHATASE 73 AST 32 ALT 39 GFR >60 ANION GAP 13 TROPONIN BASELINE, 5TH GEN - Abnormal TROPONIN T, BASELINE 5TH GEN 16 (*) PTT - Normal PTT 33.1 TROPONIN 2 HR, 5TH GEN - Normal TROPONIN T, 2 HR 5TH GEN 15 DELTA 2HR TROPONIN T -1 PROTIME-INR - Normal PROTIME 14.6 INR 1.1 POC PROTIME/INR - Normal INR POC 1.0 TROPONIN 6 HR, 5TH GEN POC GLUCOSE POC PROTIME/INR POC GLUCOSE POC GLUCOSE TYPE AND SCREEN ABO GROUP O RH (D) TYPE Positive ANTIBODY SCREEN Negative VERIFICATION BLOOD GROUP ABO GROUP O RH (D) TYPE Positive RADIOLOGY: XR CHEST PA OR AP 1 VW Radiologist Impression IMPRESSION: 1. Mild pulmonary vascular congestion, otherwise clear lungs. 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 Findings were discussed personally with Dr. Maradiaga at time of this dictation (0934 hours). CTA HEAD NECK W WO + CT CEREBRAL PERFUSION Radiologist Impression IMPRESSION: CT perfusion: No evidence of irreversible, [...] carotid or vertebral circulation of the neck. DICTATION LOCATION: Location [address] [place] [address] CT HEAD+MAXILLOFAC+C SPINE WO CONT Radiologist Impression IMPRESSION: No infarct, mass or intracranial hemorrhage. Fracture of nasal bones proper and nasal processes of maxilla. CT FACIAL BONES: There is soft tissue swelling over the nose. Depressed fracture of nasal bones proper is seen. Fractures of nasal processes of maxillae are noted. Anterior nasal spine appears to be fractured. There appear to be fractures of the sockets of the central and lateral maxillary incisors on the left as well as the left maxillary canine tooth. Right and left hemimandibles appear intact. Prominent rightward nasal septal deviation is noted. There is extensive congestion of nasal passages. Inferior right maxillary sinus retention cysts are noted. Bela bullosa deformities of middle nasal turbinates are noted. Orbital floors and lamina papyracea are intact. Zygomaticofrontal sutures and orbital floors are intact. IMPRESSION: Virtually nondisplaced fractures of sockets of left central and lateral maxillary incisor and maxillary canine tooth. Fracture of anterior nasal spine and nasal bones proper and nasal processes of maxillae. Maxillary sinus retention cyst. CT scan of cervical spine: Craniocervical junction is normal. Occipital condyles are intact. C1 ring is intact. Prevertebral soft tissue thickness is normal. Predental space is normal. Dens is intact. C2-3 is without fracture. C3 ring is intact. C3-4 is without fracture. Anterior osteophyte formation is seen at C3-4. C4 ring is intact. C4-5 is without fracture. C5 ring is intact. C5-6 is without fracture. C6 ring is intact. C6-7 has anterior and posterior osteophyte formation. No fracture seen. C7 ring is intact. C7-T1 is without fracture. No intra or paraspinal hemorrhage is seen. IMPRESSION: Cervical spondylosis. No fracture or dislocation Secure Chat message sent to Dr. Quiñones at time of this dictation. The examination was performed with the adjustment of mA according to the patient size and/or the use of Iterative Reconstruction Technique. DICTATION LOCATION: Location 1 - [facility] EKG: NSR 67. LVH with non specific STT wave changes. Normal OR and QTc. PROCEDURES Laceration Repair Date/Time: 10/25/2021 10:33 AM Performed by: Jesús Quiñones MD Authorized by: Jesús Quiñones MD Consent: Consent obtained: Verbal Consent given by: Patient Risks, benefits, and alternatives were discussed: yes Risks discussed: Poor wound healing and poor cosmetic result [place] protocol: Patient identity confirmed: Verbally with patient and hospital-assigned identification number Anesthesia: Anesthesia method: Local infiltration Local anesthetic: Lidocaine 1% WITH epi Laceration details: Location: Face Face location: Forehead Length (cm): 4 Pre-procedure details: Preparation: Patient was prepped and draped in usual sterile fashion Exploration: Hemostasis achieved with: Direct pressure Wound extent: areolar tissue violated Treatment: Area cleansed with: Povidone-iodine Amount of cleaning: Standard Irrigation solution: Sterile saline Irrigation method: Pressure wash Layers/structures repaired: Deep subcutaneous Deep subcutaneous: Suture size: 5-0 Suture material: Vicryl Number of sutures: 3 Skin repair: Repair method: Sutures Suture size: 6-0 Suture material: Nylon Approximation: Approximation: Close Repair type: Repair type: Intermediate Post-procedure details: Dressing: Antibiotic ointment Procedure completion: Tolerated well, no immediate complications Laceration Repair Date/Time: 10/25/2021 10:53 AM Performed by: Jesús Quiñones MD Authorized by: Jesús Quiñones MD Consent: Consent obtained: Verbal Consent given by: Patient Risks, benefits, and alternatives were discussed: yes Risks discussed: Poor cosmetic result and poor wound healing [place] protocol: Patient identity confirmed: Verbally with patient and hospital-assigned identification number Anesthesia: Anesthesia method: Local infiltration Local anesthetic: Lidocaine 1% WITH epi Laceration details: Location: Lip Lip location: Upper exterior lip Length (cm): 3 Pre-procedure details: Preparation: Patient was prepped and draped in usual sterile fashion Exploration: Hemostasis achieved with: Direct pressure Wound extent: areolar tissue violated Treatment: Area cleansed with: Povidone-iodine Amount of cleaning: Standard Irrigation solution: Sterile saline Irrigation method: Pressure wash Layers/structures repaired: Deep subcutaneous Deep subcutaneous: Suture size: 4-0 Suture material: Vicryl Number of sutures: 3 Skin repair: Repair method: Sutures Suture size: 5-0 Suture technique: Running Approximation: Approximation: Close [place] border well-aligned: yes Repair type: Repair type: Intermediate Post-procedure details: Dressing: Antibiotic ointment Procedure completion: Tolerated well, no immediate complications Laceration Repair Date/Time: 10/25/2021 10:54 AM Performed by: Jesús Quiñones MD Authorized by: Jesús Quiñones MD Consent: Consent obtained: Verbal Consent given by: Patient Risks, benefits, and alternatives were discussed: yes Risks discussed: Poor wound healing [place] protocol: Patient identity confirmed: Verbally with patient and hospital-assigned identification number Anesthesia: Anesthesia method: Local infiltration Local anesthetic: Lidocaine 1% WITH epi Laceration details: Location: Lip Lip location: Upper interior lip Length (cm): 2 Pre-procedure details: Preparation: Patient was prepped and draped in usual sterile fashion Exploration: Hemostasis achieved with: Direct pressure Treatment: Amount of cleaning: Standard Irrigation solution: Sterile saline Irrigation method: Pressure wash Skin repair: Repair method: Sutures Suture size: 4-0 Suture material: Chromic gut Number of sutures: 5 Approximation: Approximation: Close [place] border well-aligned: yes Repair type: Repair type: Simple Post-procedure details: Procedure completion: Tolerated well, no immediate complications MEDICAL DECISION MAKING AND PLAN OF CARE 8:45 AM: Code stroke paged. -- On initial evaluation, patient was evaluated by me and Stroke Neurology in [place]. Plan for CTA headand neck, CT head face and c spine, chest x-ray. Will also obtain labs and EKG. Dr. Maradiaga agrees with plan. 8:50 AM: Updated family in room to plan. 9:20 AM: Patient in MRI. 9:[address] García -- fractures of nasal spine, nasal bones proper, nasal processes of maxillae.Non displaced fractures of sockets of teeth 9, 10, 11. Will consult OMF. 9:37 AM: Rechecked patient, he is back from MRI. He feels about the same. 9:40 AM: Dr. Maradiaga -- MRI with no new stroke, admit to Hospitalist for further workup. Tdap updated. 10:10 AM: Dr. Power -- can come see patient later today. 10:14 AM: At bedside for laceration repair, see notes above. Plan admission which patient agrees with. 11:05 AM: Dr. Ocasio -- Accepts admission. MDM I have reviewed previous: notes I have reviewed current: labs, ECG and imaging I have reviewed nursing notes related to past medical history, social history, and review of systems and agree, unless otherwise noted. Consults: neurology, other and hospitalist Time hospitalist paged: 10/25/2021 11:05 AM Name of hospitalist: Dr. Ocasio Discussion with hospitalist: Admit Time neurologist paged: 10/25/2021 8:46 AM Time neurologist paged: Dr. Maradiaga Discussion with neurologist: Consult Time other provider paged: 10/25/2021 10:10 AM Name of other provider: Dr. Power Discussion with other provider: Consult . New Prescriptions for this Encounter LAST VS BP: 117/68 (10/25/21 1402), Heart Rate: 69 bpm (10/25/21 1402), Resp: 18 (10/25/21 1402), Pulse: 64(10/25/21 1402), Temp: 97.2 ??F (36.2 ??C) (10/25/21 1402), Temp src: Oral (10/25/21 1402), SpO2: 93 % (10/25/21 1402) CLINICAL IMPRESSION Final diagnoses: [R42] Dizziness [S01.81XA] Laceration of forehead, initial encounter [S01.511A] Lip laceration, initial encounter [S02.2XXA] Closed fracture of nasal bone, initial encounter [S02.40DA] Closed fracture of left side of maxilla, initial encounter [S02.5XXA] Closed fracture of tooth, initial encounter [E11.69] Type 2 diabetes mellitus with other specified complication, unspecified whether intermediate accountant insulin use [I10] Essential hypertension [E78.5] Hyperlipidemia, unspecified hyperlipidemia type DISPOSITION, EDUCATION AND MEDICATION RECONCILIATION Medications reconciled. See after visit summary for patient education on discharged patients. ED Disposition ED Disposition Condition User Date/Time Comment Admit Stable Jesús Quiñones MD [facility] Oct 25, 2021 11:05 AM ATTESTATION STATEMENTS This note has been prepared by Leida Jones acting as a scribe for Dr. Benjamin Quiñones on 10/25/2021 at 11:06 AM. The scribe's documentation has been prepared under my direction and personally reviewed by me,Jesús Quiñones, in its entirety on 10/25/21 at 2:09 PM. I confirm that the note above accurately reflects all work, treatment, procedures, and medical decision making performed by me. documented in this encounter Miscellaneous Notes * Care Plan - Giovana Laughlin RN - 10/26/2021 1:43 PM CDT Assessment as charted. Discharge orders noted. Instructions given, questions answered. Med's from [facility] delivered. Home with family. * Therapy Evaluation - Vicky Valdez Physical Therapist - 10/26/2021 12:00 PM CDT Physical Therapy order received, chart reviewed, and evaluation completed. Please see full evaluation below for details. Daily PT notes will be located in Care Plan notes. Thank You. 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 He was receiving outpatient PT and OT. Past Medical History: Diagnosis Date ??? Diabetes mellitus ??? HTN (hypertension) ??? Hyperlipidemia ??? PUD (peptic ulcer disease) Past Surgical History: Procedure Laterality Date ??? HX APPENDECTOMY ??? HX LUMBAR LAMINECTOMY Left S: Patient agreeable to therapy. Patient reports 4/10 pain to nose, face. Pt c/o feeling dizzy, light headed when initially coming from supine to sitting and standing. He states that once he is up, he feels better sitting. Pain intervention: No intervention required Response to pain intervention: Agrees to continue Living Situation/Functional Level DISTRIBUTION ENGINEER: Pt lives with his in a two story house with bedroom/ bathroom on the main level, one step to enter the house with 2 grab bars. He has been ambulating independently without an assistive device and attending out patient PT/OT 3 times per week since he recently had a stroke. He states he was working on his walking and standing balance activities in PT Home Equipment: Wheeled walker, cane O: Appearance: Pt is sitting up in a chair, abrasions to face Cognition/Perception: He is alert and oriented X 4 ROM: Bilateral Upper Extremity WFL, Lower Extremity WFL Muscle Tone: WFL Strength: BLES: 5/5 BUEs: 5/5 MOBILITY ASSESSMENT: Bed Mobility: Supine to sitting was performed independently. Transfers: Sit to and from standing was performed with supervision Gait: He ambulate 200 ft with a wheeled walker with supervision --Gait Deviations: He exhibits a wide base of support and walks on heels bilaterally with decreasedpush off, mildly unsteady gait. Balance: Standing: Static: Stands without support and tolerates moderate perturbations with appropriate ankle strategy bilaterally. Dynamic: Reaches moderately out of base of support Romberg: Pt unable to maintain and keep balance, stands with a wide base of support Unilateral stance: Pt unable to maintain BLEs Stairs/Curb: Not assessed, only has one to enter house and pt does not feel like he will have a problem. Patient/Family Education: PT plan of care Other: Supine: HR 79 spo2 95% BP 134/67 Sitting: BP 126/69 Standing: BP 116/57 Positioning after tx: Tolerated session well. Patient remains up in chair, , call light in reach, chair alarm on. RN notified and aware. in room A: Disabilities: Impaired balance and gait Assessment: Patient would benefit from skilled therapy to address above disabilities. Clinical Presentation: Stable and/or uncomplicated EVALUATION COMPLEXITY: Low Complexity -These findings are based on patient's self reporting, therapist's objective findings and professional determinations. Recommend: Home with 24 hour supervision, continued out patient PT Recommendations were made on today's assessment. Additional [...] Gait training, Exercises, Balance training Recommendations: For: Nursing --OOB to chair with chair alarm, ambulate in room or hallway, with assist Equipment to be issued at DC: none --Patient involved in goal setting: yes Patient goals will be found in the Care Plan section of the medical chart. Zone #: [id number] On weekends--please call [phone] * Therapy Evaluation - Brandi Steinberg Occupational Therapist - 10/26/2021 9:04 AM CDT Occupational Therapy order received, chart reviewed, and evaluation completed. Please see full evaluation below for details. Daily OT notes will be located in Care Plan notes. Thank You. OT INITIAL EVALUATION Reason for Admission: Fx of nasal bone and nasal processes of the maxilla s/p fall Ordered by: MD Amarjit Activity Order: Up in chair Weight Bearing Status: No restrictions noted. Precautions: Fall PMH: Past Medical History: Diagnosis Date ??? Diabetes mellitus ??? HTN (hypertension) ??? Hyperlipidemia ??? PUD (peptic ulcer disease) S: Patient agreeable to therapy. Patient reports 0/10 pain. Pain intervention: Unneccessary movement avoided, No intervention required Response to pain intervention: Appeared content Living Situation/Functional Level DISTRIBUTION ENGINEER: Pt lives with his in a two story house with bedroom/ bathroom on the main level, one step to enter the house with 2 grab bars. He has been ambulating independently without an assistive device and attending out patient PT/OT 3 times per week since he recently had a stroke. He states he was working on his walking and standing balance activities in PT Home Equipment: WWR, cane O: Appearance: Male, in bed Vision: WFL Cognition/Perception: Alert and orientated x4, pleasant, cooperative, follows all simple commands. UE ROM: WFL Muscle Tone: WFL UE Strength: WFL Coordination: right Hand Dominant: WFL Skin Integrity: No obvious signs of skin breakdown noted. FUNCTIONAL ACTIVITIES ASSESSMENT: Feeding: (I) hand to mouth Grooming: SBA to wash hands at sink UE Dressing: SBA to don shirt while sitting EOB LE Dressing: SBA to don/doff socks while sitting EOB Toilet Transfer: SBA for sit <> stand Functional Mobility: SBA - supine <> sit EOB. SBA - sit <> stand x4. SBA- dynamic standing and sitting balance. SBA- 20ft~ ambulation with WWR Positioning after tx: Pt in bed with lines and bed alarm intact. BUE/BLE elevated on pillows with heels floating. All needs and call light within reach.RN aware. Patient/Family Education: OT POC Equipment needed at DC: To be determined, pending therapy progression. A: Disabilities: Pt presents with decreased UE strength/ROM, endurance, decreased safety awareness/cognition, and decreased independence with functional mobility and ADLs. Assessment: Pt would benefit from skilled OT services to address deficits listed above and to increase functional independence. EVALUATION COMPLEXITY: Low Complexity -These findings are based on patient's self reporting, therapist's objective findings and professional determinations. Recommend: Home with home safety evaluation;Home with supervision;Home with assistance (10/26/21 4004) Recommendations were made on today's assessment. Additional recommendations will be based on patient's progress in therapy. P: OT to see patient: 2-5x/wk at bedside Treatment: OT to see patient for: ADL Training, Functional Mobility Training, UE ROM/Strengthening,Patient Education Will continue therapy unless patient has a change in status or patient is discharged from the facility. --Patient involved in goal setting: yes Patient goals will be found in the Care Plan section of the medical chart. Zone #: [id number] On weekends--please call [phone] * Care Plan - Sarah Stiles GN - 10/26/2021 6:22 AM CDT Pt A&O x4 and SBA x1 to BR. Neuro/Vasc checked q2 during shift. C/O face pain during shift and pain meds given per oct. BG checked during shift. Undress and assess completed. X1 small BM overnight per pt. VSS on room air. PT resting between care. Pt's remained in the room overnight. * Care Plan - Sarah Stiles GN - 10/26/2021 12:41 AM CDT UNDRESS and ASSESS for ALL ADMISSIONS and TRANSFERS Remove all existing dressings and assess all wounds upon admission (unless instructed by provider). on admission to Location(unit/floor)3 Neuro Ryan Score: Ryan Score: 21 (10/25/216) 1 Undress and Assess performed by bedside coworker Sarah RN and bedside coworker CORRINE Lagunas/PCT 2 Does the patient have any skin breakdown? No ??? Add an LDA for any wound for non-blanching pink/red or purple areas. ??? Assess all high risk areas: heels, ankles, knees, hips, sacrum, coccyx, ischium, gluteal, occiput, spine and all skin folds ??? Consult wound care services for all new pressure-related injuries If yes, ??? location(s) and description of breakdown: pt had a fall at home and has lacerations, swelling and fractures to nose and face. However, no skin breakdown. ??? Photograph wound, if applicable. 3 Is a specialty support surface in place? No If yes, which one?: (examples: Low air loss air mattress, Roho, etc...) Patients with impaired mobility, bariatric, malnourished, existing pressure injury, are high considerations for specialty support surface. 4 Is the patient a paraplegic/quadriplegic? No If yes AND if stable spine immediately place on specialty surface and consult wound care services. If unstable spine or new spinal injury, defer to provider before specialty surface use. 5 Is a medical technologist prn present? no If yes, which one?: ??? Remove device/brace/splint to check skin underneath, obtain provider order if necessary. 6 Does the patient have a wound VAC (negative pressure wound therapy)? No If yes, please consult wound care services and switch VAC device to hospital VAC, if compatible. 7 Does the patient have an ostomy? No If yes, please consult wound care/ostomy services. (Add comment to consult if ostomy is problematic for patient.) 9 Was the Skin Prevention/ Pressure Injury Pathway initiated and appropriate interventions selected? No Use for prevention of skin issues due to friction, shear, pressure, mobility or moisture issues. 10 Was the Skin Care Treatment: Pressure Injury/Lower Extremity Ulcer Pathway initiated, and appropriate interventions selected? No Use for conditions such as: existing pressure injuries, yeast, deeptissue injury, incontinence associated dermatitis, lower extremity ulcers, and skin tears. 11 Wound care consult/ostomy care consult was not initiated. [facility] Skin Care Injury Prevention and Treatment Protocol [facility] Approved by: [facility] - Medical Executive Committee Approval Date: 08/21/2019 ORDERS ARE ENTERED ???PER PROTOCOL?? Nursing Orders: o When a patient age 18 years or older has: ? a documented Ryan score of 18 or less or a Ryan sub score of 2 or 1, ? or a documented condition on the problem list of: diabetes, malnutrition or cachectic, paralysis,spinal cord disorder/injuries or muscle/neurological disease, THEN, the RN will order the Skin Care/Pressure Injury Prevention Pathway and initiate all appropriate interventions as per the Ryan Risk Assessment Algorithm. o When a patient age 18 years or older has a wound requiring treatment, the RN and Wound Care Nurses may order the Skin Care/Pressure Ulcer/Lower Extremity Ulcer Treatment Pathway and use appropriatetreatments found in the Nursing Algorithm. o The Wound Care Nurse may also order treatments found in the Wound Care Algorithm. * Care Plan - Dee Amos RCP - 10/25/2021 6:38 PM CDT Pt does wear home cpap but cannot wear due to broken nose. * Care Plan - Diamond Lugo RN - 10/25/2021 4:46 PM CDT Care Management Initial Assessment Initial Discharge Planning Assessment completed. Discussed Care Management's role and Discharge planning. COVID vaccinated and boosted. Discharge Plan: Plan Discharge To: Home with family assist Comments: Will follow for possible therapy needs. Patient Discharge Planning Goal: Home-has been attending OP therapy three times a week at [facility] and he has been improving. Patient will potentially discharge to a SNF/NH? No Care Management visited with: patient and spouse Marguerite Palma via in person. Prior to admission, patient resides at: own home. Two-story with basement. Master bedroom/bathroom are on main level. 1 MORGAN. Prior to admission, living arrangements: spouse. Prior to admission, patient's functional level:independent; uses cane and wheeled walker for mobility; needs assistance with iADLs: dressing Prior to admission, the patient has the following DME? Yes wheeled walker, CPAP, other SPC, and DMEProvider Name [facility] Services in the home: none Serviced by NA Receives hemodialysis? No Emergency contact(s): Extended Emergency Contact Information Primary Emergency Contact: marguerite de jesus Mobile Relation: Spouse Preferred language: Tuval[place] Ready To Wear Department Manager needed? No Secondary Emergency Contact: ayla de jesus Mobile Relation: Daughter Preferred language: Tu[place] Ready To Wear Department Manager needed? No Insurance coverage verified: Payor: [employer] / Plan: [employer] OPEN ACCESS / Product Type: HMO / Prescription coverage: yes Preferred Pharmacy verified: [facility] [place] [address] [facility] [place] - [address] Employment Status: employed Has VA Benefits: no PCP verified as: Buschling, Faisal, DO Patient has had a stay at an acute care hospital in the last 30 days. Recent Falls?: YES, patient hospitalized due to fall in bathroom. Swelling, bruising and lacerations to face. Plan for transportation at discharge: will transport at DC Care Management contact information provided. Care Management will continue to follow and assist asneeded. Diamond Lugo RN, MSN Maintenance Worker House Trailer [phone] Problem: Discharge Planning Goal: Identify discharge needs upon admission and through discharge Description: Outcome: Progressing * Treatment Plan - Marguerite Fountain RN - 10/25/2021 10:32 AM CDT STROKE ACTIVATION NOTE: Jose De Jesus, ( 1965), [id number] / CSN [id number], Patient Contact Information: ED Arrival: 10/25/2021 8:43 AM: Neurologist at bedside? YES Name of Neurologist: Dr Maradiaga Stroke Activation Date: 10/25/2021, Pt current location: 11/07 Times: 0846 Message received for stroke activation 0848 Knockout Machine Operator at bedside. Our LKW 0500. Discovery of Stroke Symptoms 0500 POC BG WNL. 0916 Begin CTCTA/ CTP 0925 DR Maradiaga read films in the control room. Is patient on Coumadin/NOAC? NO, If so, INR ___. TPA: not a candidate since no stroke seen on MRI Endovascular: Endovascular therapy considered (NIHSS > 6, aphasia, gaze deviation, visual field cut)? YES . If no endovascular therapy, reason: No LVO Wake up stroke? YES If Wake up stroke, was patient within 4 1/2 hours of discovery? Yes If acute MRI performed, MRI begin time: 936 If acute MRI performed, DWI FLAIR mismatch? NO new stroke seen on MRI Patient and family/concerned others updated on results of stroke/TIA workup thus far, and advised on what to expect over the next 24-48 hours. Stroke team contact information was provided. All questions answered to their satisfaction at this time. Dysphagia Screen: 1. Is the Evangelina Coma Scale LESS than 13?: No (PASS) (10/25/21 1000) 2. Is there Facial Asymmetry/Weakness?: No (PASS) (10/25/21 1000) 3. Is there Tongue Asymmetry/Weakness?: No (PASS) (10/25/21 1000) 4. Is there Palatal Asymmetry/Weakness?: No (PASS) (10/25/21 1000) 5. Are there signs of aspiration during the 3 oz. water test?: No (PASS) (10/25/21 1000) Vitals: 10/25/21 0843 10/25/21 0949 BP: 136/73 (!) 145/78 BP Location: Right arm Right arm Patient Position (BP): Sitting Sitting Pulse: 70 67 Resp: 18 17 Temp: 97.8 ??F (36.6 ??C) TempSrc: Oral SpO2: 98% 98% Weight: 127.5 kg (281 lb 1.4 oz) NIHSS 10/06/2021 2104 10/07/2021 0940 10/07/2021 1206 10/25/2021 0900 Interval: Shift Shift Discharge Baseline 1a. Level of Consciousness: 0 0 0 0 1b. LOC Questions: 0 0 0 0 1c. LOC Commands: 0 0 0 0 2. Best Gaze: 0 0 0 0 3. Visual: 0 0 0 0 4. Facial Palsy: 0 0 0 0 5a. Motor Arm, Left: 0 0 0 0 5b. Motor Arm, Right: 0 0 0 0 6a. Motor Leg, Left: 0 0 0 0 6b. Motor Leg, Right: 0 0 0 0 7. Limb Ataxia: 0 0 0 0 8. Sensory: 0 0 0 0 9. Best Language: 0 0 0 0 10. Dysarthria: 0 0 0 0 11. Extinction and Inattention (formerly Neglect): 0 0 0 0 NIHSS (Total): 0 0 0 0 Lab Results Component Value Date/Time GLUCPOC 208 (H) 10/07/2021 12:44 PM GLUCOSE 132 (H) 10/25/2021 09:08 AM INR 1.1 10/25/2021 09:07 AM CREAT 1.25 (H) 10/25/2021 09:08 AM LDLCALC 85 10/06/2021 05:16 AM Social History Tobacco Use Smoking Status Never Smoker Smokeless Tobacco Not on file documented in this encounter Plan of Treatment Scheduled Referrals Name Type Priority Associated Diagnoses Order Schedule AMB REFERRAL TO DENTISTRY Outpatient Referral Routine Closed fracture of nasal bone, initial encounter Ordered: 10/26/2021 AMB REFERRAL TO CARDIOLOGY Outpatient Referral Routine Moderate aortic stenosis Ordered: 10/26/2021 documented as of this encounter Procedures Procedure Name Priority Date/Time Associated Diagnosis Comments POC GLUCOSE Routine 10/26/2021 7:14 AM CDT POC GLUCOSE Routine 10/25/2021 11:03 PM CDT POC GLUCOSE Stat 10/25/2021 2:22 PM CDT INCUBATOR MACHINE OPERATOR EVALUATION Stat 10/25/2021 11:45 AM CDT TROPONIN 2 HR, 5TH GEN Timed Study 10/25/2021 10:59 AM CDT LACERATION REPAIR Routine 10/25/2021 10: 54 AM CDT LACERATION REPAIR Routine 10/25/2021 10: 53 AM CDT LACERATION REPAIR Routine 10/25/2021 10: 33 AM CDT XR CHEST PA OR AP 1 VW Stat 10/25/2021 10:21 AM CDT EKG 12-LEAD Stat 10/25/2021 9:52 AM CDT VERIFICATION BLOOD GROUP Stat 10/25/2021 9:43 AM CDT Encounter for blood typing MRI BRAIN WO CONTRAST Stat 10/25/2021 9:37 AM CDT CTA HEAD NECK W WO + CT CEREBRAL PERFUSION Stat 10/25/2021 9:[address] HEAD+MAXILLOFAC+C SPINE WO CONT Stat 10/25/2021 9:16 AM CDT TROPONIN BASELINE, 5TH GEN Stat 10/25/2021 9:08 AM CDT CBC WITH DIFFERENTIAL Stat 10/25/2021 9:08 AM CDT TYPE AND SCREEN Stat 10/25/2021 9:08 AM CDT COMPREHENSIVE METABOLIC PANEL Stat 10/25/2021 9:08 AM CDT PTT Stat 10/25/2021 9:07 AM CDT PROTIME-INR Stat 10/25/2021 9:07 AM CDT POC PROTIME/INR Stat 10/25/2021 9:06 AM CDT POC GLUCOSE Routine 10/25/2021 8:49 AM CDT documented in this encounter Results * (ABNORMAL) POC GLUCOSE (10/26/2021 7:14 AM CDT) GLUCOSE POC 107(H) 74 - 99 mg/dL 10/26/2021 7:14 AM CDT [facility] SPECIMEN SOURCE, GLUCOSE POC Whole Blood 10/26/2021 7:14 AM CDT [facility] COMMENT, GLU POC Notified RN/MD 10/26/2021 7:14 AM CDT [facility] Blood, whole 10/26/2021 7:14 AM CDT 10/26/2021 7:22 AM CDT Arsenio Ocasio MD POINT OF CARE TESTIN G [facility]# [id number] [address] [place] [address] * (ABNORMAL) POC GLUCOSE (10/25/2021 11:03 PM CDT) GLUCOSE POC 145(H) 74 - 99 mg/dL 10/25/2021 11:03 PM CDT [facility] - [facility] SPECIMEN SOURCE, GLUCOSE POC Whole Blood 10/25/2021 11:03 PM CDT [facility] - [facility] COMMENT, GLU POC Notified RN/MD 10/25/2021 11:03 PM CDT [facility] - [facility] Blood, whole 10/25/2021 11:0 3 PM CDT 10/25/2021 11:10 PM CDT Arsenio Ocasio MD POINT OF CARE TESTIN G [facility] CLIA# [id number] [address] [place] [address] * (ABNORMAL) POC GLUCOSE (10/25/2021 2:22 PM CDT) GLUCOSE POC 109(H) 74 - 99 mg/dL 10/25/2021 2:22 PM CDT [facility] - [facility] SPECIMEN SOURCE, GLUCOSE POC Whole Blood 10/25/2021 2:22 PM CDT [facility] - [facility] Blood, whole 10/25/2021 2:22 PM CDT 10/25/2021 2:32 PM CDT Jesús Quiñones MD POINT OF CARE TESTIN G [facility] CLIA# [id number] [address] [place] [address] * TROPONIN 2 HR, 5TH GEN (10/25/2021 10:59 AM CDT) TROPONIN T, 2 HR 5TH GEN 15 <=15 ng/L 10/25/2021 11:31 AM CDT [facility] DELTA 2HR TROPONIN T -1 See Interp. 10/25/2021 11:31 AM CDT [facility]ORATORY SERVICES - [facility] Blood Venipuncture / Unknown 10/25/2021 10:59 AM CDT 10/25/2021 11:03 AM CDT Narrative [facility] - 10/25/2021 11:31 AM CDT Troponin Detectable but normal range. Delta not changing. Delay in collection of timed specimen beyond recommended collection interval. Results must be interpreted in clinical context. Jseús Quiñones MD CHEMISTRY ORDERABLES [facility] CLFAIB# [id number] [address] [facility] [place] [place] [address] * Laceration Repair (10/25/2021 10:54 AM CDT) Narrative Jesús Quiñones MD - 10/25/2021 10:54 AM CDT Jesús Quiñones MD ? 10/25/2021 ??2:09 PM Laceration Repair Date/Time: 10/25/2021 10:54 AM Performed by: Jesús Quiñones MD Authorized by: Jessú Quiñones MD Consent: ??Consent obtained: ??Verbal ??Consent given by: ??Patient ??Risks, benefits, and alternatives were discussed: yes ?Risks discussed: ??Poor wound healing [place] protocol: ??Patient identity confirmed: ??Verbally with patient and hospital-assigned identification number Anesthesia: ??Anesthesia method: ??Local infiltration ??Local anesthetic: ??Lidocaine 1% WITH epi Laceration details: ??Location: ??Lip ??Lip location: ??Upper interior lip ??Length (cm): ??2 Pre-procedure details: ??Preparation: ??Patient was prepped and draped in usual sterile fashion Exploration: ??Hemostasis achieved with: ??Direct pressure Treatment: ??Amount of cleaning: ??Standard ??Irrigation solution: ??Sterile saline ??Irrigation method: ??Pressure wash Skin repair: ??Repair method: ??Sutures ??Suture size: ??4-0 ??Suture material: ??Chromic gut ??Number of sutures: ??5 Approximation: ??Approximation: ??Close ??Vermilion border well-aligned: yes ?? Repair type: ??Repair type: ??Simple Post-procedure details: ??Procedure completion: ??Tolerated well, no immediate complications Jesús Quiñones MD PROCEDURE/MINOR SURG ICAL ORDERABLES * Laceration Repair (10/25/2021 10:53 AM CDT) Narrative Jesús Quiñones MD - 10/25/2021 10:53 AM CDT Jesús Quiñones MD ? 10/25/2021 ??2:09 PM Laceration Repair Date/Time: 10/25/2021 10:53 AM Performed by: Jesús Quiñones MD Authorized by: Jesús Quiñones MD Consent: ??Consent obtained: ??Verbal ??Consent given by: ??Patient ??Risks, benefits, and alternatives were discussed: yes ?Risks discussed: ??Poor cosmetic result and poor wound healing [place] protocol: ??Patient identity confirmed: ??Verbally with patient and hospital-assigned identification number Anesthesia: ??Anesthesia method: ??Local infiltration ??Local anesthetic: ??Lidocaine 1% WITH epi Laceration details: ??Location: ??Lip ??Lip location: ??Upper exterior lip ??Length (cm): ??3 Pre-procedure details: ??Preparation: ??Patient was prepped and draped in usual sterile fashion Exploration: ??Hemostasis achieved with: ??Direct pressure ??Wound extent: areolar tissue violated ?? Treatment: ??Area cleansed with: ??Povidone-iodine ??Amount of cleaning: ??Standard ??Irrigation solution: ??Sterile saline ??Irrigation method: ??Pressure wash ??Layers/structures repaired: ??Deep subcutaneous Deep subcutaneous: ??Suture size: ??4-0 ??Suture material: ??Vicryl ??Number of sutures: ??3 Skin repair: ??Repair method: ??Sutures ??Suture size: ??5-0 ??Suture technique: ??Running Approximation: ??Approximation: ??Close ??Vermilion border well-aligned: yes ?? Repair type: ??Repair type: ??Intermediate Post-procedure details: ??Dressing: ??Antibiotic ointment ??Procedure completion: ??Tolerated well, no immediate complications Jesús Quiñones MD PROCEDURE/MINOR SURG ICAL ORDERABLES * Laceration Repair (10/25/2021 10:33 AM CDT) Narrative Jesús Quiñones MD - 10/25/2021 10:33 AM CDT Jesús Quiñones MD ? 10/25/2021 ??2:09 PM Laceration Repair Date/Time: 10/25/2021 10:33 AM Performed by: Jesús Quiñones MD Authorized by: Jesús Quiñones MD Consent: ??Consent obtained: ??Verbal ??Consent given by: ??Patient ??Risks, benefits, and alternatives were discussed: yes ?Risks discussed: ??Poor wound healing and poor cosmetic result [place] protocol: ??Patient identity confirmed: ??Verbally with patient and hospital-assigned identification number Anesthesia: ??Anesthesia method: ??Local infiltration ??Local anesthetic: ??Lidocaine 1% WITH epi Laceration details: ??Location: ??Face ??Face location: ??Forehead ??Length (cm): ??4 Pre-procedure details: ??Preparation: ??Patient was prepped and draped in usual sterile fashion Exploration: ??Hemostasis achieved with: ??Direct pressure ??Wound extent: areolar tissue violated ?? Treatment: ??Area cleansed with: ??Povidone-iodine ??Amount of cleaning: ??Standard ??Irrigation solution: ??Sterile saline ??Irrigation method: ??Pressure wash ??Layers/structures repaired: ??Deep subcutaneous Deep subcutaneous: ??Suture size: ??5-0 ??Suture material: ??Vicryl ??Number of sutures: ??3 Skin repair: ??Repair method: ??Sutures ??Suture size: ??6-0 ??Suture material: ??Nylon Approximation: ??Approximation: ??Close Repair type: ??Repair type: ??Intermediate Post-procedure details: ??Dressing: ??Antibiotic ointment ??Procedure completion: ??Tolerated well, no immediate complications Jesús Quiñones MD PROCEDURE/MINOR SURG ICAL ORDERABLES * XR CHEST PA OR AP 1 VW (10/25/2021 10:21 AM CDT) Anatomical Region Laterality Modality Chest Computed Radiogr aphy 10/25/2021 10:2 1 AM CDT Impressions 10/25/2021 10:27 AM CDT IMPRESSION: 1. Mild pulmonary vascular congestion, otherwise clear lungs. DICTATION LOCATION: [address] Narrative 10/25/2021 10:27 AM CDT EXAMINATION: XR CHEST PA OR AP 1 VW HISTORY: CVA COMPARISON: Chest radiograph performed 10/05/2021 FINDINGS: ?? Other than mild pulmonary vascular congestion, the lungs are clear of focal consolidation. No pleural effusion or pneumothorax identified. The cardiomediastinal silhouette is normal in size and contour. Degenerative changes are noted in the shoulders. INCIDENTAL FINDINGS: ??None. Procedure Note Gregorio Medina MD - 10/25/2021 EXAMINATION: XR CHEST PA OR AP 1 VW HISTORY: CVA COMPARISON: Chest radiograph performed 10/05/2021 FINDINGS: Other than mild pulmonary vascular congestion, the lungs are clear of focal consolidation. No pleural effusion or pneumothorax identified. The cardiomediastinal silhouette is normal in size and contour. Degenerative changes are noted in the shoulders. INCIDENTAL FINDINGS: None. IMPRESSION: 1. Mild pulmonary vascular congestion, otherwise clear lungs. DICTATION LOCATION: [address] Jesús Quiñones MD DIAGNOSTIC IMAGING O RDERABLES * EKG 12-LEAD (10/25/2021 9:52 AM CDT) 10/25/2021 9:52 AM CDT Narrative INTERFACE SYSTEM - 10/25/2021 10:45 AM CDT ? Stationary ECG Study ? [facility] ? Test Date: ?10/25/2021 9:52 AM Pat Name: ? JOSE DE JESUS ?Department: ?? 36 ?Room: ? 04 04 Gender: ? M ?[employer] Supervisor: ?? [email or web address] : ?1965 ? Requested By: ? Order Number: [id number] ?Reading MD: ?? Vlad Salazar ? Measurements Intervals ?[place] ? Rate: ? 67 ? P: ?11 OR: ? 191 ?QRS: ?-13 QRSD: ? 105 ?T: ?216 QT: ? 395 ? QTc: ?417 ? Interpretive Statements ? Sinus rhythm Left ventricular hypertrophy ST and T wave abnormality, consider ischemia Electronically Signed On 10-25-2021 10:45:04 CDT by Vlad Salazar Procedure Note Vlad Salazar MD - 10/25/2021 Stationary ECG Study [facility] Test Date: 10/25/2021 9:52 AM Pat Name: JOSE DE JEUSS Department: 36 Room: [facility] Gender: M [employer] Supervisor: [facility] : 1965 Requested By: Order Number: [id number] Reading MD: Vlad Salazar Measurements Intervals [place] Rate: 67 P: 11 OR: 191 QRS: -13 QRSD: 105 T: 216 QT: 395 QTc: 417 Interpretive Statements Sinus rhythm Left ventricular hypertrophy ST and T wave abnormality, consider ischemia Electronically Signed On 10-25-2021 10:45:04 CDT by Vlad Salazar Jesús Quiñones MD ECG ORDERABLES INTERFACE SYSTEM Refer to clinic/hospital department * VERIFICATION BLOOD GROUP (10/25/2021 9:43 AM CDT) ABO GROUP O 10/25/2021 11:02 AM CDT [facility] RH (D) TYPE Positive 10/25/2021 11:02 AM CDT [facility] Blood Venipuncture / Unknown 10/25/2021 9:43 AM CDT 10/25/2021 9:51 AM CDT Layton Iqbal MD BLOOD BANK ORDERABL ES [facility] IVONNE# [id number] [address] [place] [address] * MRI BRAIN WO CONTRAST (10/25/2021 9:37 AM CDT) Anatomical Region Laterality Modality Head Magnetic Resonan ce 10/25/2021 9:29 AM CDT Impressions 10/25/2021 9:50 AM CDT IMPRESSION: 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 ?? Findings were discussed personally with Dr. Maradiaga at time of this dictation (0934 hours). Narrative 10/25/2021 9:50 AM CDT MR IMAGING OF BRAIN NONCONTRAST 10/25/2021 HISTORY: Patient had episode of dizziness and fell. Patient also had recent lateral medullary infarct on the left on October 05, 2021 MR scan. FINDINGS: Ventricles are midline without shift, dilatation or mass effect. There is a diffusion-positive FLAIR positive infarct to the left lateral medulla. This is smaller than on the prior examination and is felt to be a subacute infarct at this point. No other acute infarct is seen. A tiny T2 bright dot is seen in subcortical white matter of the right superior frontal gyrus. No hemorrhage is seen. Flow void is present in the vertebral arteries and basilar artery. Procedure Note Torrey García MD - 10/25/2021 MR IMAGING OF BRAIN NONCONTRAST 10/25/2021 HISTORY: Patient had episode of dizziness and fell. Patient also had recent lateral medullary infarct on the left on October 05, 2021 MR scan. FINDINGS: Ventricles are midline without shift, dilatation or mass effect. There is a diffusion-positive FLAIR positive infarct to the left lateral medulla. This is smaller than on the prior examination and is felt to be a subacute infarct at this point. No other acute infarct is seen. A tiny T2 bright dot is seen in subcortical white matter of the right superior frontal gyrus. No hemorrhage is seen. Flow void is present in the vertebral arteries and basilar artery. 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 Findings were discussed personally with Dr. Maradiaga at time of this dictation (0934 hours). Era Maradiaga MD MR ORDERABLES * CTA HEAD NECK W WO + CT CEREBRAL PERFUSION (10/25/2021 9:21 AM CDT) Anatomical Region Laterality Modality Head Computed Tomogra phy 10/25/2021 9:23 AM CDT Impressions 10/25/2021 12:21 PM CDT IMPRESSION: CT perfusion: No evidence of irreversible, [...] carotid or vertebral circulation of the neck. 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 Facial trauma secondary to fall due to loss of balance. COMPARISON: CT head, face and cervical spine performed concurrently. CTA head and neck 10/05/2021. Outside MRI brain 10/05/2021. TECHNIQUE: CT head was performed prior to contrast administration. CT perfusion of the brain was performed following the bolus administration of intravenous contrast. Source images were postprocessed on an independent workstation and archived to the PACS. CTA of the head and neck was performed after the intravenous administration of of contrast. The axial images were then post-processed to generate 2D and 3D models of the intracranial and extracranial arterial circulation. MIP images were generated from source data in multiple planes. Rapid LVO detection software was utilized. The examination was performed with the adjustment of mA according to the patient size and/or the use of Iterative Reconstruction Technique. ?? FINDINGS: ?? CT PERFUSION: At the imaged levels, normal mean transit time, cerebral blood flow, and cerebral blood volume are demonstrated bilaterally. There is no evidence of irreversible, potentially reversible, or compensated perfusion abnormality within the imaged portions of the brain. Patchy nonspecific areas of elevated Tmax greater than four seconds within the bilateral cerebral white matter likely represents artifact or benign oligemia. CTA NECK: The visualized portion of the aortic arch and great vessels demonstrate atherosclerotic plaque without flow-limiting stenosis. The common carotid arteries are patent bilaterally without evidence of stenosis. Calcified plaque of the proximal right cervical ICA results in moderate (56%) stenosis. The remainder of the right cervical ICA is widely patent. Mild atherosclerotic plaque of the proximal left cervical ICA contributes to less than 50% stenosis. Minimal calcific plaque at the origin of the right vertebral artery causes less than 50% luminal narrowing. The remainder of the right vertebral artery is widely patent. The left vertebral artery is patent throughout its visualized course with the exception of minimal nonocclusive calcific plaque at the level of the C5 vertebral foramen resulting in less than 50% stenosis. CTA HEAD: Evaluation of the anterior circulation demonstrates atherosclerotic plaque without flow-limiting stenosis. The ophthalmic arteries enhance bilaterally. The proximal anterior, middle and posterior cerebral arteries are patent bilaterally. Evaluation of the posterior circulation demonstrates normal vertebrobasilar system. No evidence of critical vascular stenosis, occlusion, aneurysm or vascular malformation. ?? 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 No filling defect is identified within the major dural venous sinuses or opacified venous system to suggest thrombus. OTHER: The visualized lung apices are grossly clear bilaterally. Left frontal scalp contusion. Nasal bridge contusion with probable hemorrhage within the nasal cavity. Questionable nondisplaced nasal bone fracture. Cervical spondylosis. 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 Facial trauma secondary to fall due to loss of balance. COMPARISON: CT head, face and cervical spine performed concurrently. CTA head and neck 10/05/2021. Outside MRI brain 10/05/2021. TECHNIQUE: CT head was performed prior to contrast administration. CT perfusion of the brain was performed following the bolus administration of intravenous contrast. Source images were postprocessed on an independent workstation and archived to the PACS. CTA of the head and neck was performed after the intravenous administration of of contrast. The axial images were then post-processed to generate 2D and 3D models of the intracranial and extracranial arterial circulation. MIP images were generated from source data in multiple planes. Rapid LVO detection software was utilized. The examination was performed with the adjustment of mA according to the patient size and/or the use of Iterative Reconstruction Technique. FINDINGS: CT PERFUSION: At the imaged levels, normal mean transit time, cerebral blood flow, and cerebral blood volume are demonstrated bilaterally. There is no evidence of irreversible, potentially reversible, or compensated perfusion abnormality within the imaged portions of the brain. Patchy nonspecific areas of elevated Tmax greater than four seconds within the bilateral cerebral white matter likely represents artifact or benign oligemia. CTA NECK: The visualized portion of the aortic arch and great vessels demonstrate atherosclerotic plaque without flow-limiting stenosis. The common carotid arteries are patent bilaterally without evidence of stenosis. Calcified plaque of the proximal right cervical ICA results in moderate (56%) stenosis. The remainder of the right cervical ICA is widely patent. Mild atherosclerotic plaque of the proximal left cervical ICA contributes to less than 50% stenosis. Minimal calcific plaque at the origin of the right vertebral artery causes less than 50% luminal narrowing. The remainder of the right vertebral artery is widely patent. The left vertebral artery is patent throughout its visualized course with the exception of minimal nonocclusive calcific plaque at the level of the C5 vertebral foramen resulting in less than 50% stenosis. CTA HEAD: Evaluation of the anterior circulation demonstrates atherosclerotic plaque without flow-limiting stenosis. The ophthalmic arteries enhance bilaterally. The proximal anterior, middle and posterior cerebral arteries are patent bilaterally. Evaluation of the posterior circulation demonstrates normal vertebrobasilar system. No evidence of critical vascular stenosis, occlusion, aneurysm or vascular malformation. 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 No filling defect is identified within the major dural venous sinuses or opacified venous system to suggest thrombus. OTHER: The visualized lung apices are grossly clear bilaterally. Left frontal scalp contusion. Nasal bridge contusion with probable hemorrhage within the nasal cavity. Questionable nondisplaced nasal bone fracture. Cervical spondylosis. IMPRESSION: CT perfusion: No evidence of irreversible, [...] carotid or vertebral circulation of the neck. DICTATION LOCATION: Location 1 - [facility] Protocol [facility] Emergency MD CT ORDERABLE S * CT HEAD+MAXILLOFAC+C SPINE WO CONT (10/25/2021 9:16 AM CDT) Anatomical Region Laterality Modality Head Computed Tomogra phy 10/25/2021 9:16 AM CDT Impressions 10/25/2021 9:50 AM CDT IMPRESSION: No infarct, mass or intracranial hemorrhage. Fracture of nasal bones proper and nasal processes of maxilla. CT FACIAL BONES: There is soft tissue swelling over the nose. Depressed fracture of nasal bones proper is seen. Fractures of nasal processes of maxillae are noted. Anterior nasal spine appears to be fractured. There appear to be fractures of the sockets of the central and lateral maxillary incisors on the left as well as the left maxillary canine tooth. Right and left hemimandibles appear intact. Prominent rightward nasal septal deviation is noted. There is extensive congestion of nasal passages. Inferior right maxillary sinus retention cysts are noted. Bela bullosa deformities of middle nasal turbinates are noted. Orbital floors and lamina papyracea are intact. Zygomaticofrontal sutures and orbital floors are intact. IMPRESSION: Virtually nondisplaced fractures of sockets of left central and lateral maxillary incisor and maxillary canine tooth. Fracture of anterior nasal spine and nasal bones proper and nasal processes of maxillae. Maxillary sinus retention cyst. CT scan of cervical spine: Craniocervical junction is normal. Occipital condyles are intact. C1 ring is intact. Prevertebral soft tissue thickness is normal. Predental space is normal. Dens is intact. C2-3 is without fracture. C3 ring is intact. C3-4 is without fracture. Anterior osteophyte formation is seen at C3-4. C4 ring is intact. C4-5 is without fracture. C5 ring is intact. C5-6 is without fracture. C6 ring is intact. C6-7 has anterior and posterior osteophyte formation. No fracture seen. C7 ring is intact. C7-T1 is without fracture. No intra or paraspinal hemorrhage is seen. IMPRESSION: Cervical spondylosis. No fracture or dislocation Secure Chat message sent to Dr. Quiñones at time of this dictation. ?? The examination was performed with the adjustment of mA according to the patient size and/or the use of Iterative Reconstruction Technique. ?? DICTATION LOCATION: Location 1 - [facility] Narrative 10/25/2021 9:[address] SCAN OF HEAD, MAXILLOFACIAL AREA AND CERVICAL SPINE NONCONTRAST 10/25/2021 HISTORY: Stroke code, stroke, fall. FINDINGS: Comparison is made to CTA of 10/05/2021. Examination of the brain shows central and cortical atrophy are present. Atherosclerotic calcification is seen in cavernous internal carotid arteries. Left lateral medullary infarct demonstrated two scans ago is not visible due to its size. No new infarct, mass or hemorrhage is identified. Middle cerebral artery density is symmetric and normal. Normal riojas-white matter differentiation is seen. Calvarium is intact. Bela bullosa deformities of middle nasal turbinates are noted. Mastoid air cells and middle ears are clear. Maxillary sinus retention cyst is noted. Depressed fracture of nasal bones proper is noted. Fractures of nasal processes of maxillae also noted. Procedure Note Torrey García MD - 10/25/2021 CT SCAN OF HEAD, MAXILLOFACIAL AREA AND CERVICAL SPINE NONCONTRAST 10/25/2021 HISTORY: Stroke code, stroke, fall. FINDINGS: Comparison is made to CTA of 10/05/2021. Examination of the brain shows central and cortical atrophy are present. Atherosclerotic calcification is seen in cavernous internal carotid arteries. Left lateral medullary infarct demonstrated two scans ago is not visible due to its size. No new infarct, mass or hemorrhage is identified. Middle cerebral artery density is symmetric and normal. Normal riojas-white matter differentiation is seen. Calvarium is intact. Bela bullosa deformities of middle nasal turbinates are noted. Mastoid air cells and middle ears are clear. Maxillary sinus retention cyst is noted. Depressed fracture of nasal bones proper is noted. Fractures of nasal processes of maxillae also noted. IMPRESSION: No infarct, mass or intracranial hemorrhage. Fracture of nasal bones proper and nasal processes of maxilla. CT FACIAL BONES: There is soft tissue swelling over the nose. Depressed fracture of nasal bones proper is seen. Fractures of nasal processes of maxillae are noted. Anterior nasal spine appears to be fractured. There appear to be fractures of the sockets of the central and lateral maxillary incisors on the left as well as the left maxillary canine tooth. Right and left hemimandibles appear intact. Prominent rightward nasal septal deviation is noted. There is extensive congestion of nasal passages. Inferior right maxillary sinus retention cysts are noted. Bela bullosa deformities of middle nasal turbinates are noted. Orbital floors and lamina papyracea are intact. Zygomaticofrontal sutures and orbital floors are intact. IMPRESSION: Virtually nondisplaced fractures of sockets of left central and lateral maxillary incisor and maxillary canine tooth. Fracture of anterior nasal spine and nasal bones proper and nasal processes of maxillae. Maxillary sinus retention cyst. CT scan of cervical spine: Craniocervical junction is normal. Occipital condyles are intact. C1 ring is intact. Prevertebral soft tissue thickness is normal. Predental space is normal. Dens is intact. C2-3 is without fracture. C3 ring is intact. C3-4 is without fracture. Anterior osteophyte formation is seen at C3-4. C4 ring is intact. C4-5 is without fracture. C5 ring is intact. C5-6 is without fracture. C6 ring is intact. C6-7 has anterior and posterior osteophyte formation. No fracture seen. C7 ring is intact. C7-T1 is without fracture. No intra or paraspinal hemorrhage is seen. IMPRESSION: Cervical spondylosis. No fracture or dislocation Secure Chat message sent to Dr. Quiñones at time of this dictation. The examination was performed with the adjustment of mA according to the patient size and/or the use of Iterative Reconstruction Technique. DICTATION LOCATION: Location 1 - [facility] Protocol [facility] Emergency MD CT ORDERABLE S * (ABNORMAL) TROPONIN BASELINE, 5TH GEN (10/25/2021 9:08 AM CDT) TROPONIN T, BASELINE 5TH GEN 16(H) <=15 ng/L 10/25/2021 9:44 AM CDT [facility] [email or web address] [facility] Blood Venipuncture / Unknown 10/25/2021 9:08 AM CDT 10/25/2021 9:13 AM CDT Narrative [facility] [email or web address] [facility] - 10/25/2021 9:44 AM CDT Troponin elevated. Jesús Quiñones MD CHEMISTRY ORDERABLES [facility] [email or web address] SERVICES - [facility] CLIA# [id number] [address] [place] [address] * TYPE AND SCREEN (10/25/2021 9:08 AM CDT) ABO GROUP O 10/25/2021 10:03 AM CDT [facility] RH (D) TYPE Positive 10/25/2021 10:03 AM CDT [facility] ANTIBODY SCREEN Negative 10/25/2021 10:03 AM CDT [facility] Blood Venipuncture / Unknown 10/25/2021 9:08 AM CDT 10/25/2021 9:13 AM CDT Jesús Quiñones MD BLOOD BANK ORDERABLE S [facility] -- [facility] CLIA# [id number] [address] [place] [address] * (ABNORMAL) COMPREHENSIVE METABOLIC PANEL (10/25/2021 9:08 AM CDT) SODIUM 140 136 - 145 mmol/L 10/25/2021 9:44 AM CDT [facility] - [facility] POTASSIUM 4.2 3.5 - 5.0 mmol/L 10/25/2021 9:44 AM CDT [facility] - [facility] CHLORIDE 102 98 - 107 mmol/L 10/25/2021 9:44 AM CDT [facility] - [facility] CO2 25 22 - 29 mmol/L 10/25/2021 9:44 AM CDT [facility] - . [facility] CALCIUM 10.1 8.6 - 10.2 mg/dL 10/25/2021 9:44 AM CDT [facility] - . [facility] BUN 19 6 - 20 mg/dL 10/25/2021 9:44 AM CDT [facility] - . [facility] CREATININE 1.25(H) 0.67 - 1.17 mg/dL 10/25/2021 9:44 AM CDT [facility] - [facility] GLUCOSE 132(H) 74 - 99 mg/dL 10/25/2021 9:44 AM [facility] - [facility] TOTAL PROTEIN 7.5 6.7 - 8.6 g/dL 10/25/2021 9:44 AM [facility] ALBUMIN 4.3 3.5 - 5.2 g/dL 10/25/2021 9:44 AM [facility] - [facility] BILIRUBIN TOTAL 0.9 0.3 - 1.2 mg/dL 10/25/2021 9:44 AM [facility] - [facility] ALKALINE PHOSPHATASE 73 40 - 129 U/L 10/25/2021 9:44 AM [facility] - [facility] AST 32 <41 U/L 10/25/2021 9:44 AM [facility] - [facility] ALT 39 <42 U/L 10/25/2021 9:44 AM [facility] [email or web address] SERVICES - [facility] GFR >60 >=60 mL/min/1. 73 sq meter 10/25/2021 9:44 AM [facility] - . [facility] Comment: eGFR calculated with 2020 CKD-EPI equation. ??Vegetarian diet, extremely high or low muscle mass, and may affect results. ??Cystatin C with Glomerular Filtration Rate is a suitable alternative for these patients. The National Kid[employer] Foundation and the [place] [employer]ph[employer] (NKF-ASN) recommends using the [...] ANION GAP 13 8 - 16 mmol/L 10/25/2021 9:44 AM [facility] - . [facility] Blood Venipuncture / Unknown 10/25/2021 9:08 AM T 10/25/2021 9:13 AM CDT Narrative [facility] - [facility] - 10/25/2021 9:44 AM CDT Samples containing indocyanine green cause interferences on Total and/or Direct Bilirubin and must not be measured. Jesús Quiñones MD CHEMISTRY ORDERABLES [facility] SERVICES - [facility] CLIA# [id number] [address] [facility] [address] [address] * (ABNORMAL) CBC WITH DIFFERENTIAL (10/25/2021 9:08 AM CDT) [facility] WBC 5.6 4.0 - 9.8 K/uL 10/25/2021 9:32 AM CDT [facility] - . [place] RBC 3.97(L) 4.50 - 5.40 M/uL 10/25/2021 9:32 AM T [facility] - . [place] HEMOGLOBIN 12.8(L) 13.6 - 16.5 g/dL 10/25/2021 9:32 AM CDT [facility] HEMATOCRIT 38.1(L) 40.0 - 48.0 % 10/25/2021 9:32 AM CDT [facility] [place] MCV 96.0 82.0 - 99.0 fL 10/25/2021 9:32 AM T [facility] - . [place] MCH 32.2 27.2 - 32.6 pg 10/25/2021 9:32 AM T [facility] SERVICES - [facility] MCHC 33.6 31.5 - 35.5 g/dL 10/25/2021 9:32 AM CDT [facility] [place] RDW 12.0 11.5 - 14.5 % 10/25/2021 9:32 AM CDT [facility] [place] RDW-STDEV 42.4 37.1 - 48.7 fL 10/25/2021 9:32 AM CDT [facility] - [facility] [place] PLATELETS 136(L) 140 - 350 K/uL 10/25/2021 9:32 AM T [facility] [place] MPV 10.3 9.3 - 12.4 fL 10/25/2021 9:32 AM CDT [facility] [place] NEUTROPHILS 62 % 10/25/2021 9:32 AM CDT [facility] [place] LYMPHOCYTES 25 % 10/25/2021 9:32 AM CDT [facility] [place] MONOCYTES 10 % 10/25/2021 9:32 AM CDT [facility] [place] EOSINOPHILS 2 % 10/25/2021 9:32 AM CDT [facility] [place] BASOPHILS 0 % 10/25/2021 9:32 AM CDT [facility] [place] IMMATURE GRANULOCYTES 0 % 10/25/2021 9:32 AM CDT [facility] [place] NEUTROPHIL ABSOLUTE 3.44 1.90 - 7.00 K/uL 10/25/2021 9:32 AM CDT [facility] [place] LYMPHOCYTE ABSOLUTE 1.41 0.70 - 4.50 K/uL 10/25/2021 9:32 AM CDT [facility] [place] MONOCYTE ABSOLUTE 0.58 0.10 - 1.30 K/uL 10/25/2021 9:32 AM CDT [facility] [place] EOSINOPHIL ABSOLUTE 0.11 0.00 - 0.70 K/uL 10/25/2021 9:32 AM CDT [facility] [place] BASOPHILS ABSOLUTE 0.02 0.00 - 0.20 K/uL 10/25/2021 9:32 AM CDT [facility] - . [facility] IMMATURE GRANULOCYTES ABSOLUTE 0.02 0.00 - 0.03 K/uL 10/25/2021 9:32 AM CDT [facility] Blood Venipuncture / Unknown 10/25/2021 9:08 AM CDT 10/25/2021 9:13 AM CDT Jesús Quiñones MD HEMATOLOGY ORDERABLE S [facility] SERVICES - [facility] CLIA# [id number] [address] [place] [address] [place] [id number] * PROTIME-INR (10/25/2021 9:07 AM CDT) [facility] PROTIME 14.6 12.7 - 15.1 Seconds 10/25/2021 9:39 AM CDT [facility] INR 1.1 0.9 - 1.1 10/25/2021 9:39 AM CDT [facility] Blood Venipuncture / Unknown 10/25/2021 9:07 AM CDT 10/25/2021 9:13 AM CDT Narrative [facility] - 10/25/2021 9:39 AM CDT INR Therapeutic Range: Adult: ?? 2.0 - 3.0 for pulmonary embolism or prophylaxis against venous ?thrombosis or systemic embolization. 2.0 - 3.0 for patients with tissue heart valves. 2.5 - 3.5 for patients with mechanical heart valves or post RI. Pediatric ??(12 years and under): 1.5 - 3.0 Although the target range in children is not well established, ?INR values of 1.5 - 3.0 are recommended for most patients. ?Higher values have been used in children with prosthetic ?cardiac valves and hereditary clotting disorders. [place] (<3 days) therapeutic ranges have not been established. Jesús Quiñones MD HEMATOLOGY ORDERABLE S [facility]# [id number] [facility] [place] [address] * PTT (10/25/2021 9:07 AM CDT) [facility] PTT 33.1 24.4 - 36.4 seconds 10/25/2021 9:39 AM CDT [facility] Comment: PTT Therapeutic Range: Heparin Level ? PTT (seconds) <0.10 units/mL ? <53 0.10 - 0.30 units/mL ? 53 - 67 0.30 - 0.70 units/mL* ?67 - 95* 0.70 - 1.00 units/mL ? 95 - 116 *corresponds to therapeutic range for unfractionated heparin Blood Venipuncture / Unknown 10/25/2021 9:07 AM CDT 10/25/2021 9:13 AM CDT Jesús Quiñones MD HEMATOLOGY ORDERABLE S [facility]ORY [facility]# [id number] [address] [facility] [place] [address] * POC PROTIME/INR (10/25/2021 9:06 AM CDT) INR POC 1.0 0.9 - 1.1 10/25/2021 9:06 AM CDT [facility] Blood, whole 10/25/2021 9:06 AM CDT 10/25/2021 10:50 AM CDT Narrative [facility]ORY [facility] - 10/25/2021 9:06 AM CDT INR Therapeutic Range: Adult: ?? 2.0 - 3.0 for pulmonary embolism or prophylaxis against venous ?thrombosis or systemic embolization. 2.0 - 3.0 for patients with tissue heart valves. 2.5 - 3.5 for patients with mechanical heart valves or post RI. Pediatric ??(12 years and under): 1.5 - 3.0 Although the target range in children is not well established, ?INR values of 1.5 - 3.0 are recommended for most patients. ?Higher values have been used in children with prosthetic ?cardiac valves and hereditary clotting disorders. [place] (<3 days) therapeutic ranges have not been established. Jesús Quiñones MD POINT OF CARE TESTIN G Performing Organization Address [facility]/ZIP Co de Phone Number [facility] [email or web address] [facility]# [id number] [address] [place] [address] * (ABNORMAL) POC GLUCOSE (10/25/2021 8:49 AM CDT) GLUCOSE POC 128(H) 74 - 99 mg/dL 10/25/2021 8:49 AM CDT [facility] - [facility] SPECIMEN SOURCE, GLUCOSE POC Whole Blood 10/25/2021 8:49 AM CDT [facility] - [facility] Blood, whole 10/25/2021 8:49 AM CDT 10/26/2021 6:34 AM CDT Interface Provider Poct POINT OF CARE TE STING Performing Organization Address [facility] Co de Phone Number [email or web address] [facility]# [id number] [address] [place] [address] documented in this encounter Visit Diagnoses Diagnosis Encounter for blood typing- Primary Dizziness Dizziness and giddiness Laceration of forehead, initial encounter Lip laceration, initial encounter Closed fracture of nasal bone, initial encounter Closed fracture of left side of maxilla, initial encounter Closed fracture of tooth, initial encounter Type 2 diabetes mellitus with other specified complication, unspecified whether intermediate accountant insulin use Essential hypertension Unspecified essential hypertension Hyperlipidemia, unspecified hyperlipidemia type Moderate aortic stenosis Aortic valve disorders H/O ischemic vertebrobasilar artery brainstem stroke Transient ischemic attack (TIA), and cerebral infarction without residual deficits documented in this encounter Administered Medications Inactive Administered Medications - up to 3 most recent administrations Medication Order MAR Action Action Date Dose Rate Site atorvastatin (LIPITOR) tablet 80 mg 80 mg, Oral, DAILY, First dose on Sun10/25/21 at 1600, Until Discontinued, Routine Given 10/26/2021 8:51 AM CDT 80 mg carvediloL (COREG) tablet 25 mg 25 mg, Oral, TWO TIMES DAILY WITH MEALS, First dose on Sun10/25/21 at 1700, Until Discontinued, Routine, Previous Med: carvediloL (COREG) 25 mg tablet - Orig Sig - Take 25 mg by mouth 2 times daily with meals. Given 10/26/2021 8:51 AM CDT 25 mg Given 10/25/2021 6:02 PM CDT 25 mg cloNIDine HCL (CATAPRES) tablet 0.1 mg 0.1 mg, Oral, TWO TIMES DAILY, First dose on Sun10/25/21 at 1600, Until Discontinued, Routine, Previous Med: cloNIDine HCL (CATAPRES) 0.1 mg tablet - Orig Sig - Take 0.1 mg by mouth 2 times daily. Given 10/26/2021 8:50 AM CDT 0.1 mg Given 10/25/2021 6:02 PM CDT 0.1 mg clopidogreL (PLAVIX) tablet 75 mg 75 mg, Oral, DAILY, First dose on Sun10/25/21 at 1600, Until Discontinued, Routine Given 10/26/2021 8:51 AM CDT 75 mg cyclobenzaprine (FLEXERIL) tablet 10 mg 10 mg, Oral, TWO TIMES DAILY PRN, Starting on Sun10/25/21 at 1147, Until Sun10/26/21 at 1631, Spasm, Routine, Previous Med: cyclobenzaprine (FLEXERIL) 10 mg tablet - Orig Sig - Take 10 mg by mouth 2 times daily as needed for Spasm. Given 10/26/2021 3:51 AM CDT 10 mg Given 10/25/2021 6:22 PM CDT 10 mg dextrose 5% - sodium chloride 0.9% infusion IV, at 40 mL/hr, SEE ADMIN INSTRUCTIONS, Starting on Sun10/25/21 at 1145, Until Sun10/26/21 at 1631, Routine dextrose 50% (D50) syringe 12.5 Gram 12.5 Gram, IV, SEE ADMIN INSTRUCTIONS, Starting on Sun10/25/21 at 1145, Until Sun10/26/21 at 1631, Routine dextrose 50% (D50) syringe 25 Gram 25 Gram, IV, SEE ADMIN INSTRUCTIONS, Starting on Sun10/25/21 at 1145, Until Sun10/26/21 at 1631, Routine glucagon (Human Recombinant) (GLUCAGEN) 1 mg/mL injection 1 mg 1 mg, IM, SEE ADMIN INSTRUCTIONS, Starting on Sun10/25/21 at 1145, Until Sun10/26/21 at 1631, Routine HYDROcodone-acetaminophen (NORCO) 5-325 mg per tablet 1 Tablet 1 Tablet, Oral, EVERY 6 HOURS PRN, Starting on Sun10/25/21 at 1330, Until Sun10/26/21 at 1631, Pain, Moderate, Routine Given 10/25/2021 2:20 PM CDT 1 Tablet insulin lispro (HumaLOG) injection 0-7 Units 0-7 Units, subCUT, THREE TIMES DAILY WITH MEALS, First dose on Sun10/25/21 at 1200, Until Discontinued, Routine iopamidoL (ISOVUE-300) 61% injection (drawn from multi-use bulk pack) 120 mL 120 mL, IV, INTRA-PROCEDURE ONCE, 1 dose, Starting on Sun10/25/21 at 0916, Until Sun10/25/21 at 0922, Routine Contrast Given 10/25/2021 9:22 AM CDT 120 mL LIDOCAINE HCL 20 MG/ML (2 %) INJECTION SOLUTION (CABINET OVERRIDE) 1 dose, Starting on Sun10/25/21 at 1013, Until Sun10/25/21 at 1025, Danny Chatman: cabinet override Admin by Another Clinician (Comment) 10/25/2021 10:25 AM CDT 10 mL meclizine (ANTIVERT) tablet 25 mg 25 mg, Oral, EVERY 6 HOURS, First dose on Sun10/25/21 at 1230, Until Discontinued, Routine Given 10/26/2021 5:58 AM CDT 25 mg Given 10/26/2021 12:12 AM CDT 25 mg Given 10/25/2021 6:22 PM CDT 25 mg morphine 4 mg/mL injection 4 mg 4 mg, IV, ONE TIME ONLY, 1 dose, On Sun10/25/21 at 1000, Routine Given 10/25/2021 10:03 AM CDT 4 mg morphine 4 mg/mL injection 4 mg 4 mg, IV, ONE TIME ONLY, 1 dose, On Sun10/25/21 at 1245, Routine Given 10/25/2021 12:35 PM CDT 4 mg naloxone (NARCAN) 0.4 mg/mL injection 0.1 mg 0.1 mg, IV, SEE ADMIN INSTRUCTIONS, Starting on Sun10/25/21 at 1838, Until Sun10/26/21 at 1631, Routine Neomycin-Bacitracin Zn-Polymyxin (NEOSPORIN) topical ointment 1 Packet Topical, ONE TIME ONLY, 1 dose, On Sun10/25/21 at 1115, Routine Given 10/25/2021 11:15 AM CDT 1 Packet Face ondansetron (ZOFRAN) 4 mg/2 mL injection 4 mg 4 mg, IV, ONE TIME ONLY, 1 dose, On Sun10/25/21 at 1115, Stat Given 10/25/2021 10:37 AM CDT 4 mg ONDANSETRON HCL (PF) 4 MG/2 ML INJECTION SOLUTION (CABINET OVERRIDE) 1 dose, Starting on Sun10/25/21 at 1035, Until Sun10/25/21 at 1037, Cheryl Santiago J: cabinet override pantoprazole (PROTONIX) tablet 40 mg 40 mg, Oral, DAILY, First dose on Sun10/25/21 at 1500, Until Discontinued, Routine, Previous Med: pantoprazole (PROTONIX) 40 mg Tablet, Delayed Release (E.C.) - Orig Sig - Take 40 mg by mouth daily. , Indication: Gastroesophageal reflux disease (GERD) Given 10/26/2021 8:50 AM CDT 40 mg sodium chloride 0.9% bolus solution 90 mL 90 mL, IV, ONE TIME ONLY, 1 dose, On Sun10/25/21 at 0930, at 5,400 mL/hr, Administer over 1 Minutes, Routine Bolus 10/25/2021 9:22 AM CDT 90 mL 5400 mL/hr sodium chloride flush injection 10 mL 10 mL, IV, ONE TIME ONLY, 1 dose, On Sun10/25/21 at 0930, Routine Given 10/25/2021 9:22 AM CDT 10 mL traMADoL (ULTRAM) tablet 50 mg 50 mg, Oral, EVERY 6 HOURS PRN, Starting on Sun10/25/21 at 1839, Until Sun10/26/21 at 1631, Pain (See admin instructions), Routine Given 10/26/2021 5:58 AM CDT 50 mg Given 10/25/2021 10:21 PM CDT 50 mg documented in this encounter Active and Recently Administered Medications Times are shown in CDT. Scheduled Medication Order 10/24/2021 10/25/2021 10/26/2021 amLODIPine (NORVASC) tablet 10 mg 10 mg, Oral, DAILY, First dose on Sun10/25/21 at 1600, Until Discontinued, Routine, Previous Med: amLODIPine (NORVASC) 10 mg tablet - Orig Sig - Take 10 mg by mouth daily. 1600 (Not Given - Provider: Brenda Person RN - Reason: Other - See Comment - Comment: Patient reports he does not take this medication any longer) 0851 (Refused - Provider: Giovana Laughlin RN) atorvastatin (LIPITOR) tablet 80 mg 80 mg, Oral, DAILY, First dose on Sun10/25/21 at 1600, Until Discontinued, Routine 1600 (Not Given - Provider: Brenda Person RN - Reason: Patient took prior to admit) 0851 (Given - Provider: Giovana Laughlin RN) carvediloL (COREG) tablet 25 mg 25 mg, Oral, TWO TIMES DAILY WITH MEALS, First dose on Sun10/25/21 at 1700, Until Discontinued, Routine, Previous Med: carvediloL (COREG) 25 mg tablet - Orig Sig - Take 25 mg by mouth 2 times daily with meals. 1802 (Given - Provider: Brenda Person RN) 0851 (Given - Provider: iGovana Laughlin RN) cloNIDine HCL (CATAPRES) tablet 0.1 mg 0.1 mg, Oral, TWO TIMES DAILY, First dose on Sun10/25/21 at 1600, Until Discontinued, Routine, Previous Med: cloNIDine HCL (CATAPRES) 0.1 mg tablet - Orig Sig - Take 0.1 mg by mouth 2 times daily. 1802 (Given - Provider: Brenda Person RN) 0850 (Given - Provider: Giovana Laughlin RN) clopidogreL (PLAVIX) tablet 75 mg 75 mg, Oral, DAILY, First dose on Sun10/25/21 at 1600, Until Discontinued, Routine 1600 (Not Given - Provider: Brenda Person RN - Reason: Patient took prior to admit) 0851 (Given - Provider: Giovana Laughlin RN) dextrose 5% - sodium chloride 0.9% infusion IV, at 40 mL/hr, SEE ADMIN INSTRUCTIONS, Starting on Sun10/25/21 at 1145, Until Sun10/26/21 at 1631, Routine dextrose 50% (D50) syringe 12.5 Gram 12.5 Gram, IV, SEE ADMIN INSTRUCTIONS, Starting on Sun10/25/21 at 1145, Until Sun10/26/21 at 1631, Routine dextrose 50% (D50) syringe 25 Gram 25 Gram, IV, SEE ADMIN INSTRUCTIONS, Starting on Sun10/25/21 at 1145, Until Sun10/26/21 at 1631, Routine glucagon (Human Recombinant) (GLUCAGEN) 1 mg/mL injection 1 mg 1 mg, IM, SEE ADMIN INSTRUCTIONS, Starting on Sun10/25/21 at 1145, Until Sun10/26/21 at 1631, Routine insulin lispro (HumaLOG) injection 0-7 Units 0-7 Units, subCUT, THREE TIMES DAILY WITH MEALS, First dose on Sun10/25/21 at 1200, Until Discontinued, Routine 1423 (Not Given - Provider: Cheryl Santiago RN - Reason: Patient condition)1900 (Not Given - Provider: PAULINO Ruggiero - Reason: Other - See Comment) 0700 (Not Given - Provider: PAULINO Ruggiero - Reason: Lab results - Comment: BG 107)1200 (Refused - Provider: Giovana Laughlin RN) iopamidoL (ISOVUE-300) 61% injection (drawn from multi-use bulk pack) 120 mL (COMPLETED) 120 mL, IV, INTRA-PROCEDURE ONCE, 1 dose, Starting on Sun10/25/21 at 0916, Until Sun10/25/21 at 0922, Routine 0922 (Contrast Given - Provider: Kay Yañez, RT) lidocaine PF 1% (XYLOCAINE MPF) injection 3 mL 3 mL, Infiltration, ONE TIME ONLY, 1 dose, On Sun10/25/21 at 1015, Routine 1015 (Not Given - Provider: Cheryl Santiago RN - Reason: Other - See Comment) meclizine (ANTIVERT) tablet 25 mg 25 mg, Oral, EVERY 6 HOURS, First dose on Sun10/25/21 at 1230, Until Discontinued, Routine 1235 (Given - Provider: Cheryl Santiago RN)1822 (Given - Provider: Brenda Person RN) 0012 (Given - Provider: PAULINO Ruggiero)0558 (Given - Provider: PAULINO Ruggiero)1200 (Refused - Provider: Giovana Laughlin, RN) morphine 4 mg/mL injection 4 mg (COMPLETED) 4 mg, IV, ONE TIME ONLY, 1 dose, On Sun10/25/21 at 1000, Routine 1003 (Given - Provider: Cheryl Santiago, ANA) morphine 4 mg/mL injection 4 mg (COMPLETED) 4 mg, IV, ONE TIME ONLY, 1 dose, On Sun10/25/21 at 1245, Routine 1235 (Given - Provider: Cheryl Santiago, RN) naloxone (NARCAN) 0.4 mg/mL injection 0.1 mg 0.1 mg, IV, SEE ADMIN INSTRUCTIONS, Starting on Sun10/25/21 at 1838, Until Sun10/26/21 at 1631, Routine Neomycin-Bacitracin Zn-Polymyxin (NEOSPORIN) topical ointment 1 Packet (COMPLETED) Topical, ONE TIME ONLY, 1 dose, On Sun10/25/21 at 1115, Routine 1115 (Given - Provider: Cheryl Santiago, ANA) ondansetron (ZOFRAN) 4 mg/2 mL injection 4 mg (COMPLETED) 4 mg, IV, ONE TIME ONLY, 1 dose, On Sun10/25/21 at 1115, Stat 1037 (Given - Provider: Cheryl Santiago, ANA) pantoprazole (PROTONIX) tablet 40 mg 40 mg, Oral, DAILY, First dose on Sun10/25/21 at 1500, Until Discontinued, Routine, Previous Med: pantoprazole (PROTONIX) 40 mg Tablet, Delayed Release (E.C.) - Orig Sig - Take 40 mg by mouth daily. , Indication: Gastroesophageal reflux disease (GERD) 1500 (Not Given - Provider: Brenda Perosn RN - Reason: Patient took prior to admit) 0850 (Given - Provider: Giovana Laughlin, ANA) sodium chloride 0.9% bolus solution 90 mL (COMPLETED) 90 mL, IV, ONE TIME ONLY, 1 dose, On Sun10/25/21 at 0930, at 5,400 mL/hr, Administer over 1 Minutes, Routine 0922 (Bolus - Provider: Kay Yañez, RT) sodium chloride flush injection 10 mL (COMPLETED) 10 mL, IV, ONE TIME ONLY, 1 dose, On Sun10/25/21 at 0930, Routine 0922 (Given - Provider: Kay Yañez, RT) PRN Medication Order 10/24/2021 10/25/2021 10/26/2021 cyclobenzaprine (FLEXERIL) tablet 10 mg 10 mg, Oral, TWO TIMES DAILY PRN, Starting on Sun10/25/21 at 1147, Until Sun10/26/21 at 1631, Spasm, Routine, Previous Med: cyclobenzaprine (FLEXERIL) 10 mg tablet - Orig Sig - Take 10 mg by mouth 2 times daily as needed for Spasm. 182 (Given - Provider: Brenda Person RN)2330 (Refused - Provider: PAULINO Ruggiero) 0351 (Given - Provider: PAULINO Ruggiero) HYDROcodone-acetaminophen (NORCO) 5-325 mg per tablet 1 Tablet 1 Tablet, Oral, EVERY 6 HOURS PRN, Starting on Sun10/25/21 at 1330, Until Sun10/26/21 at 1631, Pain, Moderate, Routine 1420 (Given - Provider: Cheryl Santiago RN) ondansetron (ZOFRAN) 4 mg/2 mL injection 4 mg 4 mg, IV, EVERY 6 HOURS PRN, Starting on Sun10/25/21 at 1144, Until Sun10/26/21 at 1631, Nausea/Emesis, Routine traMADoL (ULTRAM) tablet 50 mg 50 mg, Oral, EVERY 6 HOURS PRN, Starting on Sun10/25/21 at 1839, Until Sun10/26/21 at 1631, Pain (See admin instructions), Routine 2221 (Given - Provider: PAULINO Ruggiero) 0558 (Given - Provider: PAULINO Ruggiero) No Frequency Medication Order 10/24/2021 10/25/2021 10/26/2021 LIDOCAINE HCL 20 MG/ML (2 %) INJECTION SOLUTION (CABINET OVERRIDE) (COMPLETED) 1 dose, Starting on Sun10/25/21 at 1013, Until Sun10/25/21 at 1025, Danny Chatman: david override 1025 (Admin by Another Clinician (Comment) - Provider: Cheryl Santiago RN - Comment: admin by Dr Quiñones) documented in this encounter Care Teams Auto Winder Relationship Specialty Start Date End Date Faisal Richardson DO [address] [place] [address] PCP - General Family Practice 10/25/21 documented as of this encounter
--- OUTSIDE RECORDS SUMMARY | 2024-07-28 01:10 | XMS_ITS | Encounter Summary ---
Author Organization [facility] Address [address] Thomasn: Epic Prelude ADT [place] [address] Care Team Providers Care Associate Professor Of Engineering Name Role Phone Faisal Richardson DO Primary Care Provider [phone] Encounter Details Date Type Department Care Team (Latest Contact Info) Description 10/25/2021 Travel Social History Tobacco Use Types Packs/Day [...] on filedocumented in this encounter Care Teams Associate Professor Of Engineering Relationship Specialty Start Date End Date Faisal Richardson DO [address] [place] [address] PCP - General Family Practice 10/25/21 documented as of this encounter
--- OUTSIDE RECORDS SUMMARY | 2024-07-28 01:10 | XMS_ITS | Encounter Summary ---
Author Organization [facility] Address [address] [place] [address] Care Team Providers Care Plant Production Worker Name Role Phone Faisal Richardson DO Primary Care Provider [phone] Reason for Visit * Reason Onset Date Comments ER 10/25/2021 Encounter Details Date Type Department Care Team (Late st Contact Info) Description 10/25/2021 Telephone [facility] NEUROLOGY - [address] [address] Agnes Mcmullen, COUNTER STITCHER Social History Tobacco Use Types Packs/Day Years [...] AM CDT documented as of this encounter Miscellaneous Notes * Telephone Encounter - Agnes Mcmullen RN - 10/25/2021 10:02 AM CDT called stating spouse is in [facility] ER due to fall in shower. documented in this encounter Plan of Treatment Not on file documented as of this encounter Visit Diagnoses Not on filedocumented in this encounter Care Teams Plant Production Worker Relationship Specialty Start Date End Date Faisal Richardson DO [address] [place] [address] PCP - General Family Practice 10/25/21 documented as of this encounter
--- OUTSIDE RECORDS SUMMARY | 2024-07-28 01:10 | XMS_ITS | Encounter Summary ---
Author Organization [facility] Address [address] Attn: Epic Prelude ADT [place] [address] Care Team Providers Care Stationary Engineer Supervisor Name Role Phone Unavailable Primary Care Provider Unavailabl e Encounter Details Date Type Department Care Team (Latest Contact Info) Description 10/05/2021 Travel Social History Tobacco Use Types Packs/Day [...] have Coronavirus / COVID-19? No / Unsure 10/05/2021 4:07 PM BIOLOGICAL TECHNICIAN documented as of this encounter Plan of Treatment Not on file documented as of this encounter Visit Diagnoses Not on filedocumented in this encounter
--- OUTSIDE RECORDS SUMMARY | 2024-07-28 01:10 | XMS_ITS | Continuity of Care Document ---
Author Organization [employer] [employer] Address [address] [place] [address] Phone Care Team Providers Care Cloth Packer Name Role Phone Diego León MD Unavailable Unavailable Procedures Procedure Date INPATIENT CONSULT, LEVEL 4 UPPER GI ENDOSCOPY BIOPSY Advance Directives Directive Yes / No Effective Date File Name No Information Encounters Encounter Description Practice Location Reason(s) For Visit Diagnoses Date Provider Providers Copied on Encounter [facility] [employer], [address], [place], [place], [id number], tel:[phone] [facility] No Information Romelia Cortez. [address] [place] [address], [id number] , . tel:[phone] INPATIENT CONSULT, LEVEL 4 [facility], [address], [place], [place], [id number], tel:[phone] [facility] No Information Romelia Cortez. [address], [place], [id number] , . tel:[phone] Referring Provider: Rosita Tuttle, [address], [place], [address] . tel:[phone] Family History Family Member Type Diagnosis Age At Onset No Information Payers Payer name Insurance type Covered constitution party ID Authoriza tion(s) [employer] OPEN ACCESS I II III CI [id number] Social History Type Description Quantity Date Captured Comments Sex Male Smoking Status No Information Chief Complaint And Reason For Visit No Information Reason For Referral Reason For Referral No Information History Of Present Illness Encounter Date Complaint History Of Prese nt Illness No Information Functional Status Date Functional Assessmen t No Information Instructions Date Instruction Additional Infor mation No Information Assessments Type Assessment Date No Information Patient Care Teams Name Effective Dates (start - stop) Status Members No Information
== END 2024-07-21 09:08 | disposition home or self-care (01) ==
PROVIDERS: PCP Family Medicine; Visit Provider Dermatology
DX: Z79.899 Other long term (current) drug therapy (principal)
CPT/HCPCS: 36415; 86480

== ENCOUNTER 2024-11-12 09:26 | Outpatient (CLI) | payer MEDICARE, SELFPAY ==
[2024-11-12 09:38] LABS: Basophils Absolute Auto 0.04 K/mm3 (0.00-0.10); Basophils Percent Auto 0.5 % (0.0-1.0); Eosinophils Absolute Auto 0.11 K/mm3 (0.02-0.50); Eosinophils Percent Auto 1.4 % (1.0-6.0); Hemoglobin 14.3 g/dL (14.0-18.0); Immature Granulocyte Absolute 0.06 K/mm3 (0.00-0.00); Immature Granulocyte Percent A 0.8 % (0.0-0.0); Lymphocytes Absolute Auto 1.69 K/mm3 (1.10-4.50); Lymphocytes Percent Auto 21.2 % (18.0-42.0); Mean Corpuscular HGB Conc 33.3 g/dL (32-36); Mean Corpuscular Hemoglobin 30.8 pg (27.0-31.0); Mean Corpuscular Volume 92.7 fL (78.0-102.0); Mean Platelet Volume 9.1 fl (8.7-11.0); Monocytes Absolute Auto 0.73 K/mm3 (0.10-0.90); Monocytes Percent Auto 9.1 % (2.0-11.0); Neutrophils Absolute Auto 5.35 K/mm3 (1.70-7.20); Platelet Count Result 178 K/mm3 (150-420); Red Blood Count 4.64 M/mm3 (4.70-6.10); Red Cell Distribution Width 13.1 % (11.6-14.4)
[2024-11-12 10:22] LABS: Alanine Aminotransferase 31 U/L (16-63); Alkaline Phosphatase 98 U/L (46-116); Anion Gap 8 mmol/L (4-12); Aspartate Amino Transferase 22 U/L (15-37); Bilirubin,Total 1.3 mg/dL (0.00-1.00); Blood Urea Nitrogen 18 mg/dL (7-18); Calcium 9.4 mg/dL (8.5-10.1); Carbon Dioxide 31 mmol/L (21-32); Chloride 103 mmol/L (98-108); Cholesterol 180 mg/dL (0-200); Estimated Glomerular Filt Rate > 60; Glucose 125 mg/dL (70-99); HDL Direct 48 mg/dL (40-60); LDL Cholesterol Calculated 91 mg/dL (<130); Osmolality Calculated 296 mOsm/kg (285-295); Potassium 4.8 mmol/L (3.5-5.1); Prostate Specific Antigen 1.7 ng/mL (< OR = 4.0); Sodium 142 mmol/L (136-145); Total Protein 7.7 g/dL (6.4-8.2); Triglycerides 205 mg/dL (0-150)
--- OUTSIDE RECORDS SUMMARY | 2024-11-12 10:25 | XMS_ITS | Clinical Summary ---
Author Organization [facility] Address [address] [place] [address] Care Team Providers Care Pipe Production Worker Name Role Phone DebraFaisal Finch Primary Care [...] (03/14/2022): Added automatically from request for surgery [id number] Surgical History Surgery Date Site/Laterality Comments FLUORO GUIDED INJECTION SHOULDER [facility] Medical History Medical History Date Comments Sleep [...] 72 05/03/2022 8:28 AM CDT Temperature 37.1 C (98.7 F) 05/03/2022 7:42 AM CDT Respiratory Rate 18 05/03/2022 7:42 AM CDT [...] this topic Medical Devices Implanted Type Area Electronic Components Assembler Device Identifier Shelf Expiration Date Model / Serial / Lot Dep Orthopaedics Inc Glenosphere Xtend Lateralized 42mm +4mm Standard [id number] - [id number] Implanted:Qty: 1 on 05/02/2022 by Guille Guillaume MD at [facility] [id number] 01/03/2027 [id number] / / Depuy Orthopaedics Inc Delta Xtend 4.5mm 24mm Lock Shoulder Glenoid Screw Bone Metaglene [id number] - [id number] Implanted:Qty: 1 on 05/02/2022 [facility] [id number] 04/05/2026 [id number] / / Depuy [employer] [facility] Delta Xtend 4.5mm 48mm Lock Shoulder Glenoid Screw Bone Metaglene [id number] - [id number] Implanted:Qty: 1 on 05/02/2022 by Guille Guillaume MD at [facility] [id number] 07/05/2026 [id number] / / Depuy [employer] [facility] Delta Xtend 27mm Cementless Shoulder Standard Component Glenoid Latex Free [id number] - [id number] Implanted:Qty: 1 on 05/02/2022 by Guille Guillaume MD at [facility] [facility] 12/04/2031 [id number] / / Depuy [employer] [facility] Delta Xtend 4.5mm 36mm Lock Shoulder Glenoid Screw Bone Metaglene [id number] - [id number] Implanted:Qty: 1 on 05/02/2022 [facility] 01/03/2027 [id number] / / Depuy [employer] [facility] Implant Shldr Xtend Modecc 145epi Por Sz1 Lt [id number] - [id number] Implanted:Qty: 1 on 05/02/2022 by Guille Guillaume MD at [facility] [employer] [facility] 11/03/2030 [id number] / / Depuy Orthopaedics Inc Global Unite 10mm 113mm Modular Shoulder Standard Stem Humeral [id number] - [id number] Implanted:Qty: 1 on 05/02/2022 by Guille Guillaume MD at [facility] [employer]ics Inc 02/03/2032 [id number] / / Depuy Orthopaedics Inc Delta Xtend 42mm Shoulder +3mm Standard Cup Humeral Polyethylene Latex Free [id number] - [id number] Implanted:Qty: 1 on 05/02/2022 by Guille Guillaume MD at [facility] Depuy [employer]ics Inc 01/30/2027 [id number] / / Insurance HEALTHLINK PPO POS HEALTHLINK PPO POS HEALTHLINK OPEN ACCESS HEALTHLINK OPEN ACCESS HEALTHLINK HMO Advance Directives For more information, please contact: [phone] * Full Code (Latest Code Status on File) Date Activated Date Inactivated Comments 05/02/2022 11:32 AM 05/03/2022 4:06 PM Care Teams Pipe Production Worker Relationship Specialty Start Date End Date Faisal Richardson DO [address] [place] [address] PCP - General Family Medicine 04/27/22
--- OUTSIDE RECORDS SUMMARY | 2024-11-12 10:25 | XMS_ITS | Clinical Summary ---
Author Organization [facility] Address [address] [place] [address] Care Team Providers Care Transmission Systems Operator Name Role Phone Brandie Jensen APRN, NP-C Unavailable Noé Crowley MD Unavailable [phone] Jasper Figueroa MD Unavailable [phone] Torrey Lafleur MD Unavailable [phone] Faisal Richardson DO Primary Care Provider [phone] Joe Pike MD Unavailable [phone] Allergies Active Allergy Reactions Criticality Noted Date [...] (aortic valve disease) 11/24/2017 HTN (hypertension) Diabetes ([facility] Tinnitus Neuropathy Hyperlipidemia Abnormal stress test Encounters Date Type Department Care Team Description 09/11/2024 [facility] [address] [place] [phone] Brandie Jensen APRN, WELD TECHNICIANBabitaC from Last 3 Months Family History Medical History Relation Comments CHF [...] 74 12/11/2023 9:03 AM CDT Temperature 36.8 C (98.2 F) 11/23/2017 11:30 AM CDT Respiratory Rate 18 12/11/2023 9:03 [...] Team (Late st Contact Info) Description 12/11/2024 11:[address] [facility] Non Invasive Cardiology - [facility] [address], [place] [address] Brandie Jensen APRN, WELD TECHNICIAN-C [address] [address] 12/11/2024 2:00 PM CDT [facility] [address] [place] [address] Brandie Jensen APRN, WELD TECHNICIAN-C [address] [address] Health Maintenance Due Date Last Done Comments ASCVD LDL 1964 ASCVD Statin 1964 Colorectal Cancer Screening Colonoscopy (10 Years) 1964 Kidney Health Evaluation 1964 Annual Physical 1967 Pneumococcal Vaccine: Pediatrics (0 to 5 Years) and At-Risk Patients (6 to 64 Years) (1 of 2 - PCV) 1970 Diabetes: Retinopathy Eye Exam 1982 Hepatitis C 1982 Zoster Vaccines (1 of 2) 2014 Lipid Panel 10/06/2022 10/06/2021 Hemoglobin A1C 03/25/2024 09/25/2023, 0508/2022, 11/27/2022, Additional history exists COVID-19 Vaccine ( - season) 2024 07/13/2021, 11/04/2020, 10/14/2020 RSV Immunization or 60+ Years (1 - Risk 60-74 years 1-dose series) 2024 DTaP, Tdap and Td Vaccines (2 - Td or Tdap) 10/26/2031 10/25/2021 Meningococcal B Vaccine Aged Out No l onger eligible based on patient's age to complete this topic Meningococcal Vaccine Aged Out No bhavya jeimy eligible based on patient's age to complete this topic RSV Immunizations Under 20 Months Aged Out No longer eligible based on patient's age to complete this topic Insurance [employer] HEALTHLINK Advance Directives * Full Code (Latest Code Status on File) Date Activated Date Inactivated Comments 11/23/2017 3:08 PM 11/23/2017 7:02 PM Care Teams Transmission Systems Operator Relationship Specialty Start Date End Date Faisal Richardson DO [address] [place] [address] PCP - General FAMILY PRACTICE 11/29/22 Brandie Jensen APRN, WELD TECHNICIAN-C [address] [facility] [address] [place] [address] NURSE PRACTITIONER 02/08/21 Noé Crowley MD [address] [facility] [address] [facility] [address] [place] [address] Surgeon ORTHOPAEDIC SURGERY 02/08/21 Jasper Figueroa MD [address] [facility]. [address] [place] [address] Surgeon NEUROLOGICAL SURGERY 12/08/21 Torrey Lafleur MD [address] [facility] Orthopaedic [place], [place] [address] ORTHOPAEDIC SURGERY 11/22/22 Joe Pike MD [address] [place] [address] Consulting Physician INTERVENTIONAL CARDIOLOGY 03/19/24
--- OUTSIDE RECORDS SUMMARY | 2024-11-12 10:25 | XMS_ITS | Clinical Summary ---
Author Organization [facility] Address [address] [place] [address] Phone Care Team Providers Care Account Development Executive Name Role Phone Faisal Richardson DO Primary Care Provider [phone] Allergies Active Allergy Reactions Criticality Noted Date Comments Penicillins Hives High 10/05/2021 Medications metFORMIN (GLUCOPHAGE) 1,000 mg tablet Take 1,000 [...] by mouth daily with breakfast. 19 Tablet 2 Active betamethasone dipropionate (DIPROSONE) 0.05 % Ointment as needed. 1 Active diclofenac sodium (VOLTAREN) 75 mg Tablet, Delayed Release (E.C.) 2 Active dulaglutide (Trulicity) 1.5 mg/0.5 mL injection Inject 1.5 mg by subcutaneous injection. 2 Active acetaminophen (TYLENOL) 500 mg tablet 2 Active amLODIPine (NORVASC) 5 mg tablet 2 Active losartan-hydroCH LOROthiazide (HYZAAR) 100-12.5 mg tablet 2 Active krdkqhbj-fex-gak ic-vit K-lycop (One-A-Day Men's Multivitamin) 400-20-300 mcg Tablet 2 Active rosuvastatin (CRESTOR) 20 mg tablet 2 Active clopidogreL (PLAVIX) 75 mg TabletIndication s:History of TIA (transient ischemic attack) and stroke take one tablet by mouth daily 30 Tablet 3 Active Active Problems Problem Noted Date Diagnosed Date Acute stroke due to ischemia Type 2 diabetes mellitus with other specified co mplication Vertigo of central origin Hyperlipidemia Essential hypertension Closed fracture of nasal bones Dizziness HTN (hypertension), benign H/O ischemic vertebrobasilar artery brainstem [facility] Closed left maxillary fracture Closed fracture of tooth Laceration of forehead Moderate aortic stenosis Immunizations Immunization Administration Dates Next Due (ADACEL/BOOSTRIX)(10 YR UP) [...] at Not on file Legal Sex Male 3:53 PM CLASSIFIER TENDER Gender Identity Not on file Sexual Orientation Not on file Last Filed Vital Signs Vital Sign Reading Time Taken Comments Blood Pressure 112/60 01/30/2022 3:55 PM CDT Pulse 73 01/30/2022 3:55 PM CDT Temperature 37.6 C (99.6 F) 10/26/2021 11:51 AM CDT Respiratory Rate 16 10/26/2021 11:55 AM CDT Oxygen Saturation 99% 01/30/2022 3:55 PM CDT Inhaled Oxygen Concentration - - Weight 114.8 kg (253 lb) 01/30/2022 3:55 PM CDT Height 182.9 cm (6') 01/30/2022 3:55 PM CDT Body Mass Index 34.31 01/30/2022 3:55 PM CDT Plan of Treatment Health Maintenance Due Date Last Done Comments PNEUMOCOCCAL VACCINE 0-49 YEARS (1 of 2 - PCV) 1970 [...] Comments LIPID PANEL Routine 10/06/2021 5:16 AM CLASSIFIER TENDER HEMOGLOBIN A1C Routine 10/06/2021 5:16 AM CLASSIFIER TENDER from Last 3 Months or Most Recently Relevant to Health Maintenance Results * (ABNORMAL) HEMOGLOBIN A1C (10/06/2021 5:16 AM CLASSIFIER TENDER) HEMOGLOBIN A1C 7.1(H) <5.7 % 10/06/2021 6:02 AM CLASSIFIER TENDER [facility] EST. AVG GLUCOSE, A1C 157 mg/dL 10/06/2021 6:02 AM CLASSIFIER TENDER [facility] Blood Venipuncture / Unknown 10/06/2021 5:16 AM CLASSIFIER TENDER 10/06/2021 5:26 AM CLASSIFIER TENDER Narrative [facility] - 10/06/2021 6:02 AM CLASSIFIER TENDER HGB A1C INTERPRETATION NORMAL: <5.7% PRE-DIABETES: 5.7 - 6.4% DIABETES: 6.5% OR GREATER us Vaishali Wilson NP CHEMISTRY ORDERABLES Final Resu lt [facility] [employer] [facility]# [id number] [address] [place] [address] * (ABNORMAL) LIPID PANEL (10/06/2021 5:16 AM CLASSIFIER TENDER) [facility] CHOLESTEROL 166 <200 mg/dL 10/06/2021 6:14 AM [facility] [employer] [facility] TRIGLYCERIDE 254(H) <150 mg/dL 10/06/2021 6:14 AM [facility] [employer] [facility] HDL 30(L) 40 - 59 mg/dL 10/06/2021 6:14 AM [facility] [employer] [facility] LDL CALCULATED 85 <100 mg/dL 10/06/2021 6:14 AM [facility] [employer] [facility] NON-HDL CHOLESTEROL 136(H) <130 mg/dL 10/06/2021 6:14 AM [facility] [employer] [facility] Blood Venipuncture / Unknown 10/06/2021 5:16 AM CLASSIFIER TENDER 10/06/2021 5:26 AM [facility] [employer] LABORATORY [facility] - 10/06/2021 6:14 AM CLASSIFIER TENDER TOTAL CHOLESTEROL mg/dL Desirable <200 Borderline high 200-239 High >=240 TRIGLYCERIDES mg/dL Normal <150 Borderline high 150-199 High 200-499 Very high >=500 HDL CHOLESTEROL mg/dL Low <40 Normal 40-59 Desirable >=60 NON HDL CHOLESTEROL mg/dL Optimal <130 Near Optimal 130-159 Borderline High 160-189 Very High >=190 CALCULATED LDL mg/dL LDL <70, OPTIMAL if have Atherosclerotic cardiovascular disease (ASCVD) or intermediate or higher (>7.5%) 10 year risk of ASCVD including most adults with diabetes. LDL <100, Optimal in adult patients with low (<7.5%) 10 year ASCVD risk LDL 100-160, Suboptimal LDL >160, High LDL >190, Very high ATPIII Guidelines Reference Ranges for Lipid Panels (NCEP/AMA) . Vaishali Wilson NP CHEMISTRY ORDERABLES Final Resu lt [facility] [employer]# [id number] [address] [place] [address] from Last 3 Months or Most Recently Relevant to Health Maintenance Insurance [employer] OPEN ACCESS RX [facility] [employer] [facility] [place] [employer] (INTERNAL) [facility] Advance Directives For more information, please contact: [phone] * Full Code (Latest Code Status on File) Date Activated Date Inactivated Comments 10/25/2021 6:38 PM 10/26/2021 4:31 PM * Full Code Date Activated Date Inactivated Comments 10/06/2021 10:50 AM 10/07/2021 3:53 PM * Full Code Date Activated Date Inactivated Comments 10/05/2021 10:44 PM 10/06/2021 10:50 AM Care Teams Account Development Executive Relationship Specialty Start Date End Date Faisal Richardson DO [address] [place] [address] PCP - General Family Practice 10/25/21
--- OUTSIDE RECORDS SUMMARY | 2024-11-12 10:25 | XMS_ITS | Encounter Summary ---
Author Organization [facility] Address [address] [place] [address] Care Team Providers Care Informatics Manager Name Role Phone Terri Ko MD Primary Care Provider Shiv Bains MD Unavailable [phone] Jesús Wang MD Primary Care Provider Brandie Jensen APRN, NP-C Unavailable Noé Crowley MD Unavailable [phone] Jasper Figueroa MD Unavailable [phone] Torrey Lafleur MD Unavailable Faisal Richardson DO Primary Care Provider Joe Pike MD Unavailable Encounter Details Date Type Department Care Team (Late st Contact Info) Description 11/08/2017 Abstract [facility] [address] [place] [address] Shiv Meehan MD [address] [place] [address] Social History Tobacco Use Types [...] Info) Description 12/11/2024 11:00 AM CDT Appointment [facility] Non Invasive Cardiology - [facility] [address] [place] [address] Brandie Jensen APRN, LEAD DEVELOPER-C [address] [facility] [address] [phone] 12/11/2024 2:00 PM CDT [facility] [address] [place] [address] Brandie Jensen APRN, LEAD DEVELOPER-C [address] [phone] documented as of this encounter Visit Diagnoses Not on filedocumented in this encounter Care Teams Informatics Manager Relationship Specialty Start Date End Date Terri Ko MD PCP - General SURGERY 10/29/17 03/29/20 Jesús Wang MD [address] [place] [address] PCP - General FAMILY PRACTICE 04/06/20 11/28/22 Faisal Richardson DO [address] [place] [address] PCP - General FAMILY PRACTICE 11/29/22 Shiv Meehan MD [address] [place] [address] [place] [employer] CARDIOVASCULAR DISEASE 3/26/18 8/13/24 Brandie Jensen APRN, LEAD DEVELOPER-C [address] [facility] [address] [place] [address] NURSE PRACTITIONER 02/08/21 Noé Crowley MD [address] [facility] [address] [facility] [address] [place], [place] [address] Surgeon ORTHOPAEDIC SURGERY 02/08/21 Jasper Figueroa MD [address] [facility]. [address] [place] [address] Surgeon NEUROLOGICAL SURGERY 12/08/21 Torrey Lafleur MD [address] [facility] [place] [address] ORTHOPAEDIC SURGERY 11/22/22 Joe Pike MD [address] [place] [address] Consulting Physician INTERVENTIONAL CARDIOLOGY 03/19/24 documented as of this encounter
--- OUTSIDE RECORDS SUMMARY | 2024-11-12 10:25 | XMS_ITS | Referral Summary ---
Author Organization [facility] Address [address] [place] [address] Care Team Providers Care Entry Level Accountant Name Role Phone DebraFaisal Finch Primary Care [...] (03/14/2022): Added automatically from request for surgery [id number] Social History Tobacco Use Types Packs/Day Years [...] on file Medical Devices Implanted Type Area Network Communications Engineer Device Identifier Shelf Expiration Date Model / Serial / Lot Depuy [employer] Inc Glenosphere Xtend Lateralized 42mm +4mm Standard [id number] - [id number] Implanted:Qty: 1 on 05/02/2022 by Guille Guillaume MD at [facility] [employer] [id number] 01/03/2027 [id number] / / Depuy [employer] Inc Delta Xtend 4.5mm 24mm Lock Shoulder Glenoid Screw Bone Metaglene [id number] - [id number] Implanted:Qty: 1 on 05/02/2022 by Guille Guillaume MD at [facility] [employer] [id number] 04/05/2026 [id number] / / Depuy [employer] Delta Xtend 4.5mm 48mm Lock Shoulder Glenoid Screw Bone Metaglene [id number] - [id number] Implanted:Qty: 1 on 05/02/2022 by Guille Guillaume MD at [facility] [employer] [id number] 07/05/2026 [id number] / / Depuy [employer] Inc Delta Xtend 27mm Cementless Shoulder Standard Component Glenoid Latex Free [id number] - [id number] Implanted:Qty: 1 on 05/02/2022 by Guille Guillaume MD at [facility] [employer] Inc 12/04/2031 [id number] / / Depuy [employer] Inc Delta Xtend 4.5mm 36mm Lock Shoulder Glenoid Screw Bone Metaglene [id number] - [id number] Implanted:Qty: 1 on 05/02/2022 [facility] 01/03/2027 [id number] / / Depuy [employer] Inc Implant Shldr Xtend Modecc 145epi Por Sz1 Lt [id number] - [id number] Implanted:Qty: 1 on 05/02/2022 by [facility] 11/03/2030 [id number] / / Depuy [employer] Inc Global Unite 10mm 113mm Modular Shoulder Standard Stem Humeral [id number] - [id number] Implanted:Qty: 1 on 05/02/2022 by [facility] 02/03/2032 [id number] / / Depuy [employer] Inc Delta Xtend 42mm Shoulder +3mm Standard Cup Humeral Polyethylene Latex Free [id number] - [id number] Implanted:Qty: 1 on 05/02/2022 by [facility] 01/30/2027 [id number] / / Insurance [employer] PPO POS HEALTHLINK PPO POS HEALTHLINK OPEN ACCESS HEALTHLINK OPEN ACCESS HEALTHLINK HMO Advance Directives For more information, please contact: [phone] * Full Code (Latest Code Status on File) Date Activated Date Inactivated Comments 05/02/2022 11:32 AM 05/03/2022 4:06 PM Care Teams Entry Level Accountant Relationship Specialty Start Date End Date Faisal Richardson DO [address] [place] [address] PCP - General Family Medicine 04/27/22
--- OUTSIDE RECORDS SUMMARY | 2024-11-12 10:25 | XMS_ITS | Continuity of Care Document ---
Author Organization [facility] Address [address] [place] [address] Phone Care Team Providers Care Landscape Architect And Planner Name Role Phone Diego León MD Unavailable Unavailable Procedures Procedure Date INPATIENT CONSULT, LEVEL 4 UPPER GI ENDOSCOPY BIOPSY Advance Directives Directive Yes / No Effective Date File Name No Information Encounters Encounter Description Practice Location Reason(s) For Visit Diagnoses Date Provider Providers Copied on Encounter [facility], [address], [place], [place], [id number], tel:[phone] [facility] No Information Romelia Cortez. [address] [place] [address], [id number] , . tel:[phone] INPATIENT CONSULT, LEVEL 4 [employer], [address], [place], [place], [id number], tel:[phone] [facility] No Information Romelia Cortez. [address] [place], [place], [id number] , . tel:[phone] Referring Provider: Rosita Tuttle, [address], [place], [address] . tel:[phone] Family History Family Member Type Diagnosis Age At Onset No Information Payers Payer name Insurance type Covered alliance party ID Authoriza tion(s) [employer] OPEN ACCESS I II III CI [id number] Social History Type Description Quantity Date Captured [...]
--- OUTSIDE RECORDS SUMMARY | 2024-11-12 10:25 | XMS_ITS | Clinical Summary ---
Author Organization [facility] [email or web address] Address [address] [place] [address] Care Team Providers Care Child Life Assistant Name Role Phone Faisal Richardson DO Primary Care Provider [phone] Source Comments [facility],non-owned Affiliates and Associated Physician Practices is amultiple site organization consisting of ambulatory clinics and hospital sitesin [place], [place], [place] and [place]. This disclosure is being madepursuant to the Care Everywhere program and may not contain all information available regarding this patient. Last updated 18.[facility] [email or web address] Allergies Active Allergy Reactions Criticality Noted Date [...] injection 10/17/2021 Active ergocalciferol (Drisdol) 1.25 MG (15940 UT) capsule Take 1 (one) capsule by [...] tabletIndications :Infection of prosthetic joint, initial encounter Take 1 (one) tablet by mouth every [...] Patient Health Questionnaire-2 Score 4 01/15/2024 [facility] [place] of Occupat ional Health - Occupational Stress [...] 76 10/17/2023 8:28 AM CDT Temperature 36.8 C (98.3 F) 10/17/2023 8:28 AM CDT Respiratory Rate 17 10/17/2023 8:28 AM CDT [...] [facility] - [facility]opedic [facility] [address] [place] [phone] Torrey Lafleur MD [address] [facility] [address] [place] [address] Health Maintenance Due Date Last Done Comments COLOGUARD (AGES 45-75) - COLON CA SCREENING 1964 COLON MONITORING 1964 COLONOSCOPY - COLON CA SCREENING 1964 CT COLONOGRAPHY - COLON CA SCREENING 1964 Colorectal Cancer Screening 1964 FIT - COLON CA SCREENING 1964 FLEX SIG - COLON CA SCREENING 1964 HIV SCREENING 1979 HEPATITIS C SCREENING 05/01/1982 PNEUMOCOCCAL VACCINE 50+ (1 of 1 - PCV) 2014 ZOSTER VACCINE (1 of 2) 2014 COVID-19 VACCINE (4 - season) 2024 07/13/2021, 11/04/2020, 10/14/2020 Respiratory Syncytial Virus (RSV) Vaccine Pt: or over 60 yrs (1 - Risk 60-74 years 1-dose series) 2024 DEPRESSION SCREENING 08/06/2024 INFLUENZA VACCINE (Season Ended) 2025 SCREENING FOR DIABETES 10/16/2026 , 10/16/2023, 10/16/2023, [...] patient's age to complete this topic MENINGOCOCCAL (Group B) VACCINE SHARED DECISION-MAKING Aged Out No longer eligible based on patient's age to complete this topic MENINGOCOCCAL GROUPS A/C/Y/W VACCINE Aged Out No longer eligible based on patient's age to complete this topic Medical Devices Implanted Type Area Vehicle Trimmer Device Identifier Shelf Expiration Date Model / Serial / Lot Cable Orth Cocr 2mm 75mm Troch Clp Implanted:Qty : 1 on 12/08/2022 by Torrey Lafleur MD at [facility] Cable Right: Femur [employer] 06/07/2032 [id number] / / [id number] Screw 6.5mm 25mm Hip Actb Canc Sphrcl Implanted:Qty : 1 on 12/08/2022 by Torrey Lafleur MD at [facility] Screw Right: Hip [employer] 02/09/2032 [id number] / / [id number] Shell Actb 62mm Hip 3 Hl Por R3 Implanted:Qty : 1 on 12/08/2022 by Torrey Lafleur MD at [facility] Right: Hip [employer] 11/11/2031 [id number] / / [id number] Liner Actb R3 0d 62mm 44mm Xlpe Implanted:Qty : 1 on 12/08/2022 by Torrey Lafleur MD at [facility] Right: Hip [employer] [id number] 03/23/2029 [id number] / / [id number] Fem High Offset Sleeved Stem 17h X 240mm Implanted:Qty : 1 on 12/08/2022 by Torrey Lafleur MD at [facility] Right: Hip [employer] 02/05/2027 [id number] / / [id number] Head Fem 44mm Mdlr Tl Oxnm Implanted:Qty : 1 on 12/08/2022 by Torrey Lafleur MD at [facility] Right: Hip [employer] [id number] 04/02/2031 [id number] / / [id number] Slv Fem Anthology +4 Tpr Hip Ti Implanted:Qty : 1 on 12/08/2022 by Torrey Lafleur MD at [facility] Right: Hip [employer] [id number] 04/20/2032 [id number] / / [id number] Slv Centering 50mm 20-23mm Redapt 16-17 Implanted:Qty : 1 on 12/08/2022 by Torrey Lafleur MD at [facility] Right: Hip [employer] 11/21/2031 [id number] / / [id number] Cmnt Bone Rally 40gm Hvisc Sprmnt Grn Implanted:Qty : 1 on 09/24/2023 by Torrey Lafleur MD at [facility] Right: Hip [employer] 04/05/2024 [id number] / / [id number] Cmnt Bone Rally 40gm Hvisc Sprmnt Grn Implanted:Qty : 1 on 09/27/2023 by Torrey Lafleur MD at [facility] Right: Hip [employer] 06/05/2027 [id number] / / [id number] Femoral Head Implanted:Qty : 1 on 10/02/2023 by Torrey Lafleur MD at [facility] Right: Hip [employer] 04/30/2033 [id number] / / [id number] Head Sleeve Implanted:Qty : 1 on 10/02/2023 by Torrey Lafleur MD at [facility] Right: Hip [employer] 03/20/2033 [id number] / / [id number] Liner Implanted:Qty : 1 on 10/02/2023 by Torrey Lafleur MD at [facility] Right: Hip [employer] 03/23/2029 [id number] / / [id number] Procedures Procedure Name Priority Date/Time Associated Diagnosis Comments GLUCOSE - POINT OF CARE Routine 10/17/2023 8:26 AM CDT from Last 3 Months or Most Recently Relevant to Health Maintenance Results * (ABNORMAL) GLUCOSE - POINT OF CARE (10/17/2023 8:26 AM CDT) [facility] Glucose WB/POC 174(H) 70 - 106 mg/dL 10/17/2023 8:32 AM CDT [facility] Specimen Type Cap Fingerstick 2023 8:32 AM CDT [facility] Blood BLOOD SPECIMEN / Unknown 10/17/2023 8:26 AM CDT 10/17/2023 8:32 AM CDT Marco Carter MD LAB - POINT OF CARE ORDERABLES [facility] [address] [place] [address] from Last 3 Months or Most Recently [...] 7:55 PM 12/16/2022 1:07 PM Care Teams Child Life Assistant Relationship Specialty Start Date End Date Faisal Richardson DO [address] [place] [id number] PCP - General Family Medicine 11/27/22
[2024-11-12 10:41] LABS: Thyroid Stimulating Hormone Reflex 0.76 u/IU/mL (0.36-3.74)
== END 2024-11-12 09:27 | disposition home or self-care (01) ==
LOC: CHSLAB 09:27
PROVIDERS: PCP Family Medicine; Visit Provider Family Medicine
DX: I69.993 Ataxia following unspecified cerebrovascular disease (principal); R35.1 Nocturia; E03.9 Hypothyroidism, unspecified; Z12.5 Encounter for screening for malignant neoplasm of prostate
CPT/HCPCS: 36415; 80053; 80061; 84153; 84443; 85025; G0103

== ENCOUNTER 2025-01-21 15:47 | Outpatient (CLI) | payer MEDICARE, OTHER, SELFPAY ==
[2025-01-21 16:10] LABS: Basophils Absolute Auto 0.03 K/mm3 (0.00-0.10); Basophils Percent Auto 0.5 % (0.0-1.0); Eosinophils Absolute Auto 0.12 K/mm3 (0.02-0.50); Eosinophils Percent Auto 1.9 % (1.0-6.0); Hematocrit 38.9 % (40.0-54.0); Hemoglobin 12.9 g/dL (14.0-18.0); Immature Granulocyte Absolute 0.03 K/mm3 (0.00-0.00); Immature Granulocyte Percent A 0.5 % (0.0-0.0); Lymphocytes Absolute Auto 1.55 K/mm3 (1.10-4.50); Mean Corpuscular HGB Conc 33.2 g/dL (32-36); Mean Corpuscular Hemoglobin 30.9 pg (27.0-31.0); Mean Corpuscular Volume 93.3 fL (78.0-102.0); Monocytes Absolute Auto 0.68 K/mm3 (0.10-0.90); Monocytes Percent Auto 10.5 % (2.0-11.0); Neutrophils Absolute Auto 4.06 K/mm3 (1.70-7.20); Neutrophils Percent Auto 62.6 % (50.0-70.0); Platelet Count Result 153 K/mm3 (150-420); Red Blood Count 4.17 M/mm3 (4.70-6.10); Red Cell Distribution Width 12.9 % (11.6-14.4); White Blood Count 6.5 K/mm3 (4.8-10.8)
[2025-01-21 16:27] LABS: Alanine Aminotransferase 33 U/L (6-50); Albumin Level 4.2 g/dL (3.5-5.1); Alkaline Phosphatase 111 U/L (38-126); Anion Gap 4 mmol/L (4-12); Aspartate Amino Transferase 42 U/L (17-59); Bilirubin,Total 1.1 mg/dL (0.2-1.3); Blood Urea Nitrogen 13 mg/dL (9-20); CRP 0.8 mg/dL (<1.0); Calcium 9.2 mg/dL (8.4-10.2); Carbon Dioxide 30 mmol/L (22-30); Chloride 105 mmol/L (98-107); Estimated Glomerular Filt Rate > 60; Glucose 163 mg/dL (65-110); Osmolality Calculated 292 mOsm/kg (285-295); Sodium 139 mmol/L (137-145); Total Protein 6.7 g/dL (6.3-8.2)
--- OUTSIDE RECORDS SUMMARY | 2025-01-21 17:30 | XMS_ITS | Encounter Summary ---
Author Organization [facility] Address [address] [facility] [place] [address] Care Team Providers Care Time Stamp Assembler Name Role Phone Faisal Richardson DO Primary Care Provider [phone] Reason for Visit * Reason Comments Surgical Follow-up Encounter Details Date Type Department Care Team (Late st Contact Info) Description 01/20/2025 10:00 AM CDT Office Visit [facility] - [facility]opedic Surgery [address] [place] [phone] Torrey Lafleur MD [address] [address] S/P revision of total hip [...] Answer Date Recorded Patient Health Questionnaire-2 Score 2 01/14/2025 [facility] [place] of Occupat ional Health - Occupational Stress [...] slept in a correction (including now)? 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 Answer Date of Assessment Author No 10/17/2023 12:17 AM Philipp Khan RN * Is person blind or have serious difficulty seeing? Answer Date of Assessment Author No 10/17/2023 12:17 AM Philipp Khan RN * Does person have serious difficulty walking/climbing stairs? Answer Date of Assessment Author No 10/17/2023 12:17 AM Philipp Khan RN * Does person have difficulty dressing/bathing? Answer Date of Assessment Author Yes 10/17/2023 12:17 AM Philipp Khan RN * Does person have difficulty doing errands alone? Answer Date of Assessment Author Yes 10/17/2023 12:17 AM BARBIET Philipp Torres RN documented as of this encounter Mental Status * Does person have difficulty concentrating/remembering/making decisions? Answer Entry Date Author No 10/17/2023 12:17 AM BARBIET Philipp Torres RN documented in this encounter Patient Instructions * Patient Instructions* Germain Donovan MD - 01/20/2025 11:07 AM CDT Images from the original note were not included. Adult Joint Reconstruction Jose Rutledge 01/20/2025 Thank you for coming in to see us today for your right revision total hip arthroplasty. This is a school/work excuse note for today. We recommend that you continue taking your antibiotics as indicated by the infectious disease team Please contact us at to make an appointment if your symptoms are not improving, or if something about your condition significantly changes. Please send a [employer] message to contact [facility] regarding questions for your provider. If your MyChart is not set up, please ask the nurse atyour next visit to help you. *Please fill out the [employer] survey that will be sent to you.* [facility] office contact information: Please do not hesitate to contact me with questions regarding any patient in the future. Our clinical nurse can be reached through [employer], or via phone at [phone]. 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 Overall patient is doing well. Denies fevers chills or wound problems. No mechanical symptoms or dislocations. Continues to take blood thinners. Continuing home therapy. Still on PO an tibiotics. Preop pain is much improved but he still has some thigh pain when he first gets up whichhas not changed and did not get worse with his infection. He states the pain improves as he walks. Current Outpatient Medications [...] 1.5 MG/0.5ML injection ergocalciferol (Drisdol) 1.25 MG (44333 UT) capsule Take 1 (one) capsule by [...] Vein PICC Placement by WILBERT SELLERS RN S/P PICC central line placement 10/15/2023 L Basilic Vein PICC Pl[facility] RN Sleep apnea uses cpap Stroke 2021 balance residual Type 2 diabetes mellitus without complications Past Surgical History: Procedure Laterality Date Appendectomy [...] Never Smokeless tobacco: Never Vaping Use Vaping status: Never Used Substance and Sexual Activity Alcohol use: Not [...] dictation was performed with the use of frooly voice recognition and errors with transcriptionmay occur. Torrey Lafleur MD documented in this encounter Plan of Treatment Upcoming Encounters Date Type Department Care Team (Late st Contact Info) Description 01/26/2026 10:00 AM CDT Office Visit [facility] - Orth[facility] Surgery [address] [place] [address] Torrey Lafleur MD [address] [place] [address] documented as of this encounter Visit Diagnoses Diagnosis S/P revision of total hip- Primary Hip joint replacement by other means documented in this encounter Care Teams Time Stamp Assembler Relationship Specialty Start Date End Date Faisal Richardson DO [address] [place] [address] PCP - General Family Medicine 11/27/22 documented as of this encounter
--- OUTSIDE RECORDS SUMMARY | 2025-01-21 17:30 | XMS_ITS | Clinical Summary ---
Author Organization [facility] Address [address] [place] [address] Care Team Providers Care Despatch Clerk Name Role Phone DebraFaisal Finch Primary Care [...] (03/14/2022): Added automatically from request for surgery [id number] Surgical History Surgery Date Site/Laterality Comments FLUORO GUIDED INJECTION SHOULDER [facility] Medical History Medical History Date Comments [...] Vaccine (1 of 2) 2014 Covid-19 Vaccine (4 - 2023-2 5 season) 2024 07/13/2021, 11/04/2020, 10/14/2020 Influenza Vaccine (Season Ended) 2025 DTaP/Tdap/Td Vaccine (2 - Td or Tdap) 10/26/2031 10/25/2021 Pneumococcal vaccine <65 Aged Out No longer eligible based on patient's age to complete this topic Medical Devices Implanted Type Area Antique Furniture Repairer Device Identifier Shelf Expiration Date Model / Serial / Lot Dep Orthopaedics Inc Glenosphere Xtend Lateralized 42mm +4mm Standard [id number] - [id number] Implanted:Qty: 1 on 05/02/2022 by Guille Guillaume MD at [facility] [id number] 01/03/2027 [id number] / / Depuy [employer] Inc Delta Xtend 4.5mm 24mm Lock Shoulder Glenoid Screw Bone Metaglene [id number] - [id number] Implanted:Qty: 1 on 05/02/[facility] [id number] 04/05/2026 [id number] / / Depuy [employer] [facility] Delta Xtend 4.5mm 48mm Lock Shoulder Glenoid Screw Bone Metaglene [id number] - [id number] Implanted:Qty: 1 on 05/02/2022 by Guille Guillaume MD at [facility] [id number] 07/05/2026 [id number] / / Depuy [employer] [facility] Delta Xtend 27mm Cementless Shoulder Standard Component Glenoid Latex Free [id number] - [id number] Implanted:Qty: 1 on 05/02/2022 by Guille Guillaume MD at [facility] 12/04/2031 [id number] / / Depuy [employer] [facility] Delta Xtend 4.5mm 36mm Lock Shoulder Glenoid Screw Bone Metaglene [id number] - [id number] Implanted:Qty: 1 on 05/02/2022 [facility] 01/03/2027 [id number] / / Depuy [employer] [facility] Implant Shldr Xtend Modecc 145epi Por Sz1 Lt [id number] - [id number] Implanted:Qty: 1 on 05/02/2022 by Guille Guillaume MD at [facility] 11/03/2030 [id number] / / Depuy Orth[employer]edics Inc Global Unite 10mm 113mm Modular Shoulder Standard Stem Humeral [id number] - [id number] Implanted:Qty: 1 on 05/02/2022 by Guille Guillaume MD at [facility] [employer] 02/03/2032 [id number] / / Depuy [employer] Inc Delta Xtend 42mm Shoulder +3mm Standard Cup Humeral Polyethylene Latex Free [id number] - [id number] Implanted:Qty: 1 on 05/02/2022 by Guille Guillaume MD at [facility] [employer] 01/30/2027 [id number] / / Insurance HE[employer] PPO POS HE[employer]LINK PPO POS HEALTHLINK OPEN ACCESS HEALTHLINK OPEN ACCESS HEALTHLINK HMO Advance Directives For more information, please contact: [phone] * Full Code (Latest Code Status on File) Date Activated Date Inactivated Comments 05/02/2022 11:32 AM 05/03/2022 4:06 PM Care Teams Despatch Clerk Relationship Specialty Start Date End Date Faisal Richardson DO [address] [place] [address] PCP - General Family Medicine 04/27/22
--- OUTSIDE RECORDS SUMMARY | 2025-01-21 17:30 | XMS_ITS | Clinical Summary ---
Author Organization [facility] Address [address] [facility] [address] [place] [address] Care Team Providers Care Shadow Graph Weight Operator Name Role Phone Faisal Richardson DO Primary Care Provider [phone] Source Comments [facility] [employer],non-owned Affiliates and Associated Physician Practices is amultiple site organization consisting of ambulatory clinics and hospital sitesin [place], [place], [place] and [place]. This disclosure is being madepursuant to the Care Everywhere program and may not contain all information available regarding this patient. Last updated 18.[facility] Allergies Active Allergy Reactions Criticality Noted Date Comments Penicillins Angioedema High 07/14/2014 Medications * Be aware that medications may not be up to date on this document. Alwaysverify current medications with the patient. carvedilol (Coreg) 25 MG tablet Take 1 (one) tablet by mouth 2 times daily 2 Active cyclobenzaprin e (Flexeril) 10 MG tablet Take 1 (one) tablet by mouth 2 times daily 2 Active Docusate Sodium (DSS) 100 MG Take 100 mg by mouth 2 times daily 2 Active dulaglutide (Trulicity) 1.5 MG/0.5ML injection 2 Active ergocalciferol (Drisdol) 1.25 MG (73994 UT) capsule Take 1 (one) capsule by mouth 2 Active metFORMIN (Glucophage) 1000 MG tablet Take 1 (one) tablet by mouth 2 times daily 2 Active Multiple Vitamins-Access Database Developer als (One-A-Day Mens Health Formula) TABS 2 Active rosuvastatin (Crestor) 20 MG tablet Take 2 (two) tablets by mouth every morning 2 Active ferrous sulfate 325 (65 FE) MG tablet Take 1 (one) tablet by mouth once daily Active Bacillus Coagulans-Inul in (Probiotic) 1-250 BILLION-MG CAPS Active sertraline (Zoloft) 50 MG tablet Take 1 (one) tablet by mouth once daily Active pregabalin (Lyrica) 50 MG capsule Take 1 (one) capsule by mouth 2 times daily 70 capsule 3 Active pantoprazole EC (Protonix) 40 MG tabletIndicati ons:Gastric Ulcer Take 1 (one) tablet by mouth once daily Reasons: Stomach Ulcer 30 tablet 2 3 Active clopidogrel (plaVIX) 75 MG tablet Take 1 (one) tablet by mouth once daily Start taking 12/19/22. 3 Active buPROPion XL 24hr (Wellbutrin-XL ) 300 MG tablet 3 Active oxyCODONE-acet aminophen (Percocet) 5-325 MG tabletIndicati ons:Infection of prosthetic joint, initial encounter Take 1 (one) tablet by mouth every 4 hours as needed for Pain 25 tablet 4 Active amLODIPine (Norvasc) 10 MG tablet Take 1 (one) tablet by mouth once daily 30 tablet 4 Active ceFAZolin 2 g in 0.9% NaCl IV 0.9 % 50 mL IVPB 2 (two) g by Intravenous route every 8 hours 4 Active apixaban (Eliquis) 2.5 MG tablet Take 1 (one) tablet by mouth 2 times daily for 30 days 60 tablet 4 Active acetaminophen (Tylenol) 325 MG tablet Take 2 (two) tablets by mouth every 4 hours as needed for Fever (For temperature GREATER than 101 ) Maximum allowable Acetaminophen amount = 4 Grams (4000 mg) / 24 hours. 4 Active diclofenac sodium (Voltaren) 1 % gel Apply 2 (two) g to affected area 4 times daily 4 Active Active Problems Problem Noted Date [...] valve disease) 11/24/2017 GI (gastrointestinal bleed) 07/14/2014 Encounters Date Type Department Care Team Description 01/20/2025 10:00 AM CDT Office Visit [facility] - Orthopedic Surgery [address] [place] [phone] Torrey Lafleur MD S/P revision of total hip (Primary Dx) 01/20/2025 9:58 AM CDT - 01/20/2025 11:59 PM CDT Hospital Encounter [facility] - Orthopedics [address] [place] [address], [address] [place] [address] Torrey Lafleur MD Discharge Disposition: Home or Self Care 01/20/2025 Travel 01/16/2025 Orders Only [facility] - Orthopedic Surgery [address] [place] [address] Torrey Lafleur MD S/P revision of total hip from Last 3 Months Immunizations Immunization Administration Dates Next Due TDAP (7yrs+) 10/25/2021 [...] Recorded Patient Health Questionnaire-2 Score 2 01/14/2025 [facility] of Occupat ional Health - Occupational Stress [...] on file Legal 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 Male 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 Gender Identity Not on file Sexual Orientation [...] Description 01/26/2026 10:00 AM CDT Office Visit [facility] - Orthopedic Surgery [address] [place] [phone] Torrey Lafleur MD [address] [facility] [address] [place] [address] Health Maintenance Due Date Last Done Comments COLOGUARD (AGES 45-75) - COL ON CA SCREENING 1964 COLON MONITORING 1964 COLONOSCOPY - COLON CA SCREENING 1964 CT COLONOGRAPHY - COLON CA SCREENING 1964 Colorectal Cancer Screening 1964 FIT - COLON CA SCREENING 1964 FLEX SIG - COLON CA SCREENING 1964 MEDICARE AWV 12 MONTHS 1964 HIV SCREENING 1979 HEPATITIS C SCREENING 05/01/1982 PNEUMOCOCCAL VACCINE 50+ (1 of 1 - PCV) 2014 ZOSTER VACCINE (1 of 2) 2014 COVID-19 VACCINE ( - 2023-2 5 season) 2024 07/13/2021, 11/04/2020, 10/14/2020 Respiratory Syncytial Virus (RSV) Vaccine Pt: or over 60 yrs (1 - Risk 60-74 years 1-dose series) 2024 INFLUENZA VACCINE (Season Ended) 2025 DTAP/TDAP/TD VACCINES (2 - T d or Tdap) 10/26/2031 10/25/2021 DEPRESSION SCREENING Completed 01/20/2025 HEPATITIS B VACCINE Aged Out No longe [...] A/C/Y/W VACCINE Aged Out No longer eligible b ased on patient's age to complete this topic Medical Devices Implanted Type Area Disc Pad Grinder Device Identifier Shelf Expiration Date Model / Serial / Lot Cable Orth Cocr 2mm 75mm Troch Clp Implanted:Qty : 1 on 12/08/2022 by Torrey Lafleur MD at [facility] [employer] Cable Right: Femur [employer] 06/07/2032 [id number] / / [id number] Screw 6.5mm 25mm Hip Actb Canc Sphrcl Implanted:Qty : 1 on 12/08/2022 by Torrey Lafleur MD at [facility] [employer] Screw Right: Hip [employer] 02/09/2032 [id number] / / [id number] Shell Actb 62mm Hip 3 Hl Por R3 Implanted:Qty : 1 on 12/08/2022 by Torrey Lafleur MD at [facility] [employer] Right: Hip [employer] 11/11/2031 [id number] / / [id number] Liner Actb R3 0d 62mm 44mm Xlpe Implanted:Qty : 1 on 12/08/2022 by Torrey Lafleur MD at [facility] [employer] Right: Hip [employer] [id number] 03/23/2029 [id number] / / [id number] Fem High Offset Sleeved Stem 17h X 240mm Implanted:Qty : 1 on 12/08/2022 by Torrey Lafleur MD at [facility] Right: Hip [employer] 02/05/2027 [id number] / / [id number] Head Fem 44mm Mdlr Tl Oxnm Implanted:Qty : 1 on 12/08/2022 by Torrey Lafleur MD at [facility] Right: Hip [employer] [id number] 04/02/2031 [id number] / / [id number] Slv Fem Anthology +4 Tpr Hip Ti Implanted:Qty : 1 on 12/08/2022 by Torrey Lafleur MD at [facility] [employer] Right: Hip [employer] [id number] 04/20/2032 [id number] / / [id number] Slv Centering 50mm 20-23mm Redapt 16-17 Implanted:Qty : 1 on 12/08/2022 by Torrey Lafleur MD at [facility] [employer] Right: Hip [employer] 11/21/2031 [id number] / / [id number] Cmnt Bone Rally 40gm Hvisc Sprmnt Grn Implanted:Qty : 1 on 09/24/2023 by Torrey Lafleur MD at [facility] Right: Hip [employer] 04/05/2024 [id number] / / [id number] Cmnt Bone Rally 40gm Hvisc Sprmnt Grn Implanted:Qty : 1 on 09/27/2023 by Torrey Lafleur MD at [facility] Right: Hip [employer] 06/05/2027 [id number] / / [id number] Femoral Head Implanted:Qty : 1 on 10/02/2023 by Torrey Lafleur MD at [facility] Right: Hip [employer] 04/30/2033 [id number] / / [id number] Head Sleeve Implanted:Qty : 1 on 10/02/2023 by Torrey Lafleur MD at [facility] [employer] Right: Hip [employer] 03/20/2033 [id number] / / [id number] Liner Implanted:Qty : 1 on 10/02/2023 by Torrey Lafleur MD at [facility] [employer] Right: Hip [employer] 03/23/2029 [id number] / / [id number] Procedures Procedure Name Priority Date/Time Associated Diagnosis Comments XR PELVIS W RIGHT HIP 2VW Routine 01/20/2025 10:40 AM CDT S/P revision of total hip from Last 3 Months Results * XR Pelvis W Right Hip 2Vw (01/20/2025 10:40 AM CDT) Anatomical Region Laterality Modality Pelvis Radiographic Sabi ging 01/20/2025 11:1 7 AM CDT Narrative 01/20/2025 11:18 AM CDT Procedure: XR PELVIS W RIGHT HIP 2VW Exam Date: 01/20/2025 10:40 AM Location: [facility] Indication: Z96.649: S/P revision of total hip Findings/impression: The study is compared to an exam from January 2024. Again noted is the right total hip replacement. The prosthesis appears unchanged in position with long intramedullary component within the femur. There is no evidence of fracture or loosening. Extensive dystrophic calcification is seen about the hip. The left hip joint demonstrates some mild joint space narrowing as well as an accessory ossicle along the margin of the acetabulum. Pubic rami and sacroiliac joints are intact. > Interpreting Provider: Viral Peña MD on 01/20/2025 11:18 AM Procedure Note Viral Peña MD - 01/20/2025 Procedure: XR PELVIS W RIGHT HIP 2VW Exam Date: 01/20/2025 10:40 AM Location: [facility] Indication: Z96.649: S/P revision of total hip Findings/impression: The study is compared to an exam from January 2024. Again noted is theright total hip replacement. The prosthesis appears unchanged in position with long intramedullary component within the femur. There is no evidence of fracture or loosening. Extensive dystrophic calcification is seen aboutthe hip. The left hip joint demonstrates some mild joint space narrowing as wellas an accessory ossicle along the margin of the acetabulum. Pubic rami and sacroiliac joints are intact. > Interpreting Provider: Viral Peña MD on 01/20/2025 11:18 AM Torrey Lafleur MD DIAGNOSTIC IMAGING ORDERABL ES Final Result from Last 3 Months Insurance MEDICARE [facility] Advance Directives * Full Code (Latest Code [...] 7:55 PM 12/16/2022 1:07 PM Care Teams Shadow Graph Weight Operator Relationship Specialty Start Date End Date Faisal Richardson DO [address] [place], [place] [id number] PCP - General Family Medicine 11/27/22
--- OUTSIDE RECORDS SUMMARY | 2025-01-21 17:30 | XMS_ITS | Continuity of Care Document ---
Author Organization [facility] Address [address] [place] [address] Phone Care Team Providers Care Executive Director Contract Shop Name Role Phone Diego León MD Unavailable Unavailable Procedures Procedure Date INPATIENT CONSULT, LEVEL 4 UPPER GI ENDOSCOPY BIOPSY Advance Directives Directive Yes / No Effective Date File Name No Information Encounters Encounter Description Practice Location Reason(s) For Visit Diagnoses Date Provider Providers Copied on Encounter [facility], [address], [place], [place], [id number], tel:[phone] [facility] No Information Romelia Cortez. [address] [place] [address], [id number] , . tel:[phone] INPATIENT CONSULT, LEVEL 4 [employer] [facility], [address], [place], [place], [id number], tel:[phone] [facility] No Information Romelia Cortez. [address] [place], [place], [address] , . tel:[phone] Referring Provider: Rosita Tuttle, [address], [place], [address] . tel:[phone] Family History Family Member Type Diagnosis Age At Onset No Information Payers Payer name Insurance type Covered libertarian ID Authoriza tion(s) [employer] OPEN ACCESS I II III CI [id number] Social History Type Description Quantity Date Captured [...]
--- OUTSIDE RECORDS SUMMARY | 2025-01-21 17:30 | XMS_ITS | Clinical Summary ---
Author Organization [facility] Address [address] [place] [address] Phone Care Team Providers Care Automation Tender Name Role Phone Debra Faisal BRO Primary Care Provider [phone] Allergies Active Allergy Reactions Criticality Noted Date [...] LOROthiazide (HYZAAR) 100-12.5 mg tablet 2 Active geemsjjm-ltw-zui ic-vit K-lycop (One-A-Day Men's Multivitamin) 400-20-300 mcg [...] on file Legal Sex Male 3:53 PM MONOTYPE CASTER Gender Identity Not on file Sexual Orientation [...] Health Maintenance Due Date Last Done Comments DIABETES ANNUAL FOOT EXAM 1982 DIABETES ANNUAL [...] Comments LIPID PANEL Routine 10/06/2021 5:16 AM MONOTYPE CASTER HEMOGLOBIN A1C Routine 10/06/2021 5:16 AM MONOTYPE CASTER from Last 3 Months or Most Recently Relevant to Health Maintenance Results * (ABNORMAL) HEMOGLOBIN A1C (10/06/2021 5:16 AM MONOTYPE CASTER) HEMOGLOBIN A1C 7.1(H) <5.7 % 10/06/2021 6:[address] [facility] [employer] [facility] EST. AVG GLUCOSE, A1C 157 mg/dL 10/06/2021 6:02 AM [facility] [employer] [facility] Blood Venipuncture / Unknown 10/06/2021 5:16 AM MONOTYPE CASTER 10/06/2021 5:26 AM MONOTYPE CASTER Narrative [facility] - 10/06/2021 6:02 AM MONOTYPE CASTER HGB A1C INTERPRETATION NORMAL: <5.7% PRE-DIABETES: 5.7 - 6.4% DIABETES: 6.5% OR GREATER [employer] Hagan YARDAGE TUFTING MACHINE OPERATOR CHEMISTRY ORDERABLES Final Resu lt [facility]# [id number] [address] [place] [address] * (ABNORMAL) LIPID PANEL (10/06/2021 5:16 AM MONOTYPE CASTER) CHOLESTEROL 166 <200 mg/dL 10/06/2021 6:[address] [facility] [employer] [facility] TRIGLYCERIDE 254(H) <150 mg/dL 10/06/2021 6:14 AM [facility] [employer] [facility] HDL 30(L) 40 - 59 mg/dL 10/06/2021 6:14 AM [facility] [employer] [facility] LDL CALCULATED 85 <100 mg/dL 10/06/2021 6:14 AM [facility] [employer] [facility] NON-HDL CHOLESTEROL 136(H) <130 mg/dL 10/06/2021 6:14 AM [facility] [employer] [facility] Blood Venipuncture / Unknown 10/06/2021 5:16 AM MONOTYPE CASTER 10/06/2021 5:26 AM MONOTYPE CASTER [facility] [facility] - 10/06/2021 6:14 AM MONOTYPE CASTER TOTAL CHOLESTEROL mg/dL Desirable <200 Borderline high [...] Reference Ranges for Lipid Panels (NCEP/AMA) . [employer] YARDAGE TUFTING MACHINE OPERATOR CHEMISTRY ORDERABLES Final Resu lt [facility]# [id number] [address] [place] [address] from Last 3 Months or Most Recently Relevant to Health Maintenance Insurance [employer] O OPEN ACCESS RX [facility] [employer] [facility] [place] [employer] (INTERNAL) [facility] Advance Directives For more information, please contact: [phone] * Full Code (Latest Code Status on File) Date Activated Date Inactivated Comments 10/25/2021 6:38 PM 10/26/2021 4:31 PM * Full Code Date Activated Date Inactivated Comments 10/06/2021 10:50 AM 10/07/2021 3:53 PM * Full Code Date Activated Date Inactivated Comments 10/05/2021 10:44 PM 10/06/2021 10:50 AM Care Teams Automation Tender Relationship Specialty Start Date End Date Faisal Richardson DO [address] [place] [address] PCP - General Family Practice 10/25/21
--- OUTSIDE RECORDS SUMMARY | 2025-01-21 17:30 | XMS_ITS | Encounter Summary ---
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 Answer Entry Date Author No 10/17/2023 12:17 AM Philipp Khan RN documented in this encounter Plan of Treatment Upcoming Encounters Date Type Department Care Team (Late st Contact Info) Description 01/26/2026 10:00 AM CDT Office Visit [facility] - Orthopedic Surgery [address] [place] [address] Torrey Lafleur MD [address] [facility] [address] [place] [address] documented as of this encounter Visit Diagnoses Not on filedocumented in this encounter Care Teams Director Of Development And Marketing Relationship Specialty Start Date End Date Faisal Richardson DO [address] [place] [address] PCP - General Family Medicine 11/27/22 documented as of this encounter
--- OUTSIDE RECORDS SUMMARY | 2025-01-21 17:30 | XMS_ITS | Referral Summary ---
Author Organization [facility] Address [address] [place] [address] Care Team Providers Care Financial Institution Branch Manager Name Role Phone DebraFaisal Finch Primary Care [...] (03/14/2022): Added automatically from request for surgery [id number] Social History Tobacco Use Types Packs/Day Years [...] on file Medical Devices Implanted Type Area Federal Judge Device Identifier Shelf Expiration Date Model / Serial / Lot Depuy [employer] Glenosphere Xtend Lateralized 42mm +4mm Standard [id number] - [id number] Implanted:Qty: 1 on 05/02/2022 by Guille Guillaume MD at [facility] [employer] [id number] 01/03/2027 [id number] / / Depuy [employer] Delta Xtend 4.5mm 24mm Lock Shoulder Glenoid Screw Bone Metaglene [id number] - [id number] Implanted:Qty: 1 on 05/02/2022 by Guille Guillaume MD at [facility] [employer] [id number] 04/05/2026 [id number] / / Depuy [employer] Delta Xtend 4.5mm 48mm Lock Shoulder Glenoid Screw Bone Metaglene [id number] - [id number] Implanted:Qty: 1 on 05/02/2022 by Guille Guillaume MD at [facility] [employer] [id number] 07/05/2026 [id number] / / Dep[employer] Delta Xtend 27mm Cementless Shoulder Standard Component Glenoid Latex Free [id number] - [id number] Implanted:Qty: 1 on 05/02/2022 by Guille Guillaume MD at [facility] [employer] 12/04/2031 [id number] / / Depuy [employer] Delta Xtend 4.5mm 36mm Lock Shoulder Glenoid Screw Bone Metaglene [id number] - [id number] Implanted:Qty: 1 on 05/02/20[facility] 01/03/2027 [id number] / / Depuy [employer] Inc Implant Shldr Xtend Modecc 145epi Por Sz1 Lt [id number] - [id number] Implanted:Qty: 1 on 05/02/2022 [facility] 11/03/2030 [id number] / / Depuy [employer] Inc Global Unite 10mm 113mm Modular Shoulder Standard Stem Humeral [id number] - [id number] Implanted:Qty: 1 on 05/02/2022 [facility] 02/03/2032 [id number] / / Depuy [employer] Inc Delta Xtend 42mm Shoulder +3mm Standard Cup Humeral Polyethylene Latex Free [id number] - [id number] Implanted:Qty: 1 on 05/02/2022 [facility] 01/30/2027 [id number] / / Insurance [employer] IncLINK PPO POS HEALTHLINK PPO POS HEALTHLINK OPEN ACCESS HEALTHLINK OPEN ACCESS HEALTHLINK HMO Advance Directives For more information, please contact: [phone] * Full Code (Latest Code Status on File) Date Activated Date Inactivated Comments 05/02/2022 11:32 AM 05/03/2022 4:06 PM Care Teams Financial Institution Branch Manager Relationship Specialty Start Date End Date Faisal Richardson DO [address] [place] [address] PCP - General Family Medicine 04/27/22
--- OUTSIDE RECORDS SUMMARY | 2025-01-21 17:30 | XMS_ITS | Encounter Summary ---
Author Organization [facility] Address [address] [place] [address] Care Team Providers Care Point Of Care Technician Name Role Phone Faisal Richardson DO Primary Care Provider [phone] Encounter Details Date Type Department Care Team (Late st Contact Info) Description 01/16/2025 Orders Only [facility] - Orthopedic Surgery [address] [place] [address] Torrey Lafleur MD [address] [facility] [address] [place] [address] S/P revision of total hip [...] Questionnaire-2 Score 2 01/14/2025 [facility] of Occupat ional Health - Occupational Stress [...] on file Legal 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 Answer Entry Date Author No 10/17/2023 12:17 AM CDT Philipp Torres RN documented in this encounter Plan of Treatment Upcoming Encounters Date Type Department Care Team (Late st Contact Info) Description 01/26/2026 10:00 AM CDT Office Visit [facility] - Orthopedic Surgery [address] [place] [address] Torrey Lafleur MD [address] [facility] [address] [place] [address] documented as of this encounter Results * XR Pelvis W Right Hip 2Vw (01/20/2025 10:40 AM CDT) Anatomical Region Laterality Modality Pelvis Radiographic Sabi ging 01/20/2025 11:1 7 AM CDT Narrative 01/20/2025 11:18 AM CDT Procedure: XR PELVIS W RIGHT HIP 2VW Exam Date: 01/20/2025 10:40 AM Location: [facility] Indication: Z96.649: S/P revision of total hip [...] 2VW Exam Date: 01/20/2025 10:40 AM Location: [facility] Indication: Z96.649: S/P revision of total hip [...] Viral Peña MD on 01/20/2025 11:18 AM us Torrey Lafleur MD DIAGNOSTIC IMAGING ORDERABL ES Final Result documented in this encounter Visit Diagnoses Diagnosis S/P revision of total hip- Primary Hip joint replacement by other means S/P revision of total hip Hip joint replacement by other means documented in this encounter Care Teams Point Of Care Technician Relationship Specialty Start Date End Date Faisal Richardson DO [address] [place] [address] PCP - General Family Medicine 11/27/22 documented as of this encounter
--- OUTSIDE RECORDS SUMMARY | 2025-01-21 17:30 | XMS_ITS | Encounter Summary ---
Author Organization [facility] Address [address] [facility] [place] [address] Care Team Providers Care Junior Accountant Bookkeeper Name Role Phone Faisal Richardson DO Primary Care Provider [phone] Encounter Details Date Type Department Care Team (Latest Contact Info) Description 01/20/2025 9:58 AM CDT - 01/20/2025 11:59 PM CDT Hospital Encounter [facility] - Orthopedics [address], [address] [place] [phone] Torrey Lafleur MD [address] [place], [place] [id number] Discharge Disposition: Home or Self Care Social [...] Recorded Patient Health Questionnaire-2 Score 2 01/14/2025 [facility] Occupat ional Health - Occupational Stress [...] place to sleep or slept in a retirement (including now)? 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 Gender Identity Not on file Sexual [...] Philipp Torres RN documented in this encounter Medications at Time of Discharge acetaminophen (Tylenol) 325 MG tablet Take 2 [...] MG/0.5ML injection 10/17/2021 ergocalciferol (Drisdol) 1.25 MG (25362 UT) capsule Take 1 (one) capsule by mouth 05/02/2022 ferrous sulfate 325 (65 FE) MG tablet Take 1 (one) tablet by mouth once daily metFORMIN (Glucophage) 1000 MG tablet Take 1 (one) tablet by mouth 2 times daily 03/05/2022 Multiple Vitamins-Mineral s (One-A-Day Mens Health Formula) TABS 08/06/2021 oxyCODONE-acetam inophen (Percocet) 5-325 MG tabletIndication s:Infection of prosthetic joint, initial encounter Take 1 (one) tablet by mouth every 4 hours as needed for Pain 25 tablet 10/04/2023 pantoprazole EC (Protonix) 40 MG tabletIndication s:Gastric Ulcer Take 1 (one) tablet by mouth [...] Description 01/26/2026 10:00 AM CDT Office Visit [facility] - Orthopedic Surgery [address] [place] [address] Torrey Lafleur MD [address] [address] documented as of this encounter Procedures Procedure Name Priority Date/Time Associated Diagnosis Comments XR PELVIS W RIGHT HIP 2VW Routine 01/20/2025 10:40 AM CDT S/P revision of total hip documented in this encounter Results * XR Pelvis W Right Hip 2Vw (01/20/2025 10:40 AM CDT) Anatomical Region Laterality Modality Pelvis Radiographic Sabi ging 01/20/2025 11:1 7 AM CDT Narrative 01/20/2025 11:18 AM CDT Procedure: XR PELVIS W RIGHT HIP 2VW Exam Date: 01/20/2025 10:40 AM Location: [facility] Indication: Z96.649: S/P revision of total [...] 2VW Exam Date: 01/20/2025 10:40 AM Location: [facility] Indication: Z96.649: S/P revision of total [...] means documented in this encounter Care Teams Junior Accountant Bookkeeper Relationship Specialty Start Date End Date Faisal Richardson DO [address] [place] [id number] PCP - General Family Medicine 11/27/22 documented as of this encounter
== END 2025-01-21 15:48 | disposition home or self-care (01) ==
PROVIDERS: PCP Family Medicine
DX: R50.9 Fever, unspecified (principal)
CPT/HCPCS: 36415; 80053; 85025; 86140

== ENCOUNTER 2025-03-03 03:30 | Day surgery (SDC) | payer MEDICARE, OTHER, SELFPAY ==
[2025-02-17 10:58] VITALS: BMI 34.9
--- NOTE | 2025-02-17 11:36 | PC.NURSE ---
Spoke with patient regarding medication Clopidogrel. Patient verbalizes understanding that the last dose is to be taken on 02/26/25 and the Endoscopist will instruct them when to restart after the procedure.
--- OUTSIDE RECORDS SUMMARY | 2025-03-03 03:34 | XMS_ITS | Encounter Summary ---
Author Organization [facility] Address [address] [place] [address] Care Team Providers Care Cost And Risk Analysis Manager Name Role Phone Terri Ko MD Primary Care Provider Shiv Bains MD Unavailable Jesús Wang MD Primary Care Provider Brandie Jensen APRN SALES SOLUTIONS REPRESENTATIVE-C Unavailable [phone] Noé Crowley MD Unavailable Jasper Figueroa MD Unavailable Torrey Lafleur MD Unavailable Faisal Richardson DO Primary Care Provider [phone] Joe Pike MD Unavailable Freddy Rios MD Unavailable [phone] Encounter Details Date Type Department Care Team (Late st Contact Info) Description 11/08/2017 Abstract [facility] [address] [place] [address] Shiv Meehan MD [address] [place] [address] Social History Tobacco Use Types [...] Care Team (Late st Contact Info) Description 12/21/2025 1:[address] [facility] Non Invasive Cardiology - [facility] [address] [place] [address] Brandie Jensen APRN, SALES SOLUTIONS REPRESENTATIVE-C [address] [phone] 12/21/2025 2:00 PM CDT Office Visit [facility] [address] [place] [phone] Brandie Jensen APRN, SALES SOLUTIONS REPRESENTATIVE-C [address] [phone] documented as of this encounter Visit Diagnoses Not on filedocumented in this encounter Care Teams Cost And Risk Analysis Manager Relationship Specialty Start Date End Date Terri Ko MD PCP - General SURGERY 10/29/17 03/29/20 Jesús Wang MD [address] [place] [address] PCP - General FAMILY PRACTICE 04/06/20 11/28/22 Faisal Richardson DO [address] [place] [address] PCP - General FAMILY PRACTICE 11/29/22 Shiv Meehan MD [address] [place] [phone] Tad Trimmer Loader CARDIOVASCULAR DISEASE 10/29/17 03/18/24 Brandie Jensen APRN, SALES SOLUTIONS REPRESENTATIVE-C [address] [facility] [address] [place] [address] NURSE PRACTITIONER 02/08/21 Noé Crowley MD [address] [facility] [address] [facility] [address] [place] [address] Surgeon ORTHOPAEDIC SURGERY 02/08/21 Jasper Figueroa MD [address] [facility] [address] [place] [address] Surgeon NEUROLOGICAL SURGERY 12/08/21 Torrey Lafleur MD [address] [facility] [place] [address] ORTHOPAEDIC SURGERY 11/22/22 Joe Pike MD [address] [place] [address] Consulting Physician INTERVENTIONAL CARDIOLOGY 03/19/24 Freddy Rios MD [address] [place] [address] Consulting Physician INTERVENTIONAL CARDIOLOGY 01/28/25 documented as of this encounter
--- OUTSIDE RECORDS SUMMARY | 2025-03-03 03:34 | XMS_ITS | Clinical Summary ---
Author Organization [facility] Address [address] [place] [address] Phone Care Team Providers Care Hose Tubing Backer Name Role Phone Faisal Richardson DO Primary Care Provider [phone] Allergies Active Allergy Reactions Criticality Noted Date [...] LOROthiazide (HYZAAR) 100-12.5 mg tablet 2 Active opebaecp-ibh-hbv ic-vit K-lycop (One-A-Day Men's Multivitamin) 400-20-300 mcg [...] on file Legal Sex Male 3:53 PM INSPECTOR SUBASSEMBLIES Gender Identity Not on file Sexual Orientation [...] 2) 2014 LDL CHOLESTEROL ANNUAL 10/06/2022 10/06/2021 DIABETES HBA1C Q 6 MONTHS 03/25/20242023, 12/14/2022, 11/27/2022, Additional history exists INFLUENZA VACCINE (#1) 2025 DTAP/TDAP/TD VACCINES (2 - Td or Tdap) 10/26/2031 10/25/2021 RSV VACCINE (60+ or ) (1 - 1-dose 75+ series) 2039 HEPATITIS B VACCINES Aged Out No long er eligible based on patient's age to complete this topic Procedures Procedure Name Priority Date/Time Associated Diagnosis Comments LIPID PANEL Routine 10/06/2021 5:16 AM INSPECTOR SUBASSEMBLIES HEMOGLOBIN A1C Routine 10/06/2021 5:16 AM INSPECTOR SUBASSEMBLIES from Last 3 Months or Most Recently Relevant to Health Maintenance Results * (ABNORMAL) HEMOGLOBIN A1C (10/06/2021 5:16 AM INSPECTOR SUBASSEMBLIES) HEMOGLOBIN A1C 7.1(H) <5.7 % 10/06/2021 6:02 AM [facility] [employer]To [employer] [facility] EST. AVG GLUCOSE, A1C 157 mg/dL 10/06/2021 6:02 AM [facility] Blood Venipuncture / Unknown 10/06/2021 5:16 AM INSPECTOR SUBASSEMBLIES 10/06/2021 5:26 AM INSPECTOR SUBASSEMBLIES Narrative [facility] - 10/06/2021 6:02 AM INSPECTOR SUBASSEMBLIES HGB A1C INTERPRETATION NORMAL: <5.7% PRE-DIABETES: 5.7 - 6.4% DIABETES: 6.5% OR GREATER [employer]agan LEGAL INTERN CHEMISTRY ORDERABLES Final Resu lt [facility] [employer] [facility]# [id number] [address] [place] [address] * (ABNORMAL) LIPID PANEL (10/06/2021 5:16 AM INSPECTOR SUBASSEMBLIES) CHOLESTEROL 166 <200 mg/dL 10/06/2021 6:14 AM [facility] [employer] [facility] TRIGLYCERIDE 254(H) <150 mg/dL 10/06/2021 6:14 AM [facility] [employer] [facility] HDL 30(L) 40 - 59 mg/dL 10/06/2021 6:14 AM [facility] [employer] [facility] LDL CALCULATED 85 <100 mg/dL 10/06/2021 6:14 AM [facility] [employer] [facility] NON-HDL CHOLESTEROL 136(H) <130 mg/dL 10/06/2021 6:14 AM [facility] [employer] [facility] Blood Venipuncture / Unknown 10/06/2021 5:16 AM INSPECTOR SUBASSEMBLIES 10/06/2021 5:26 AM INSPECTOR SUBASSEMBLIES [facility] [employer] [facility] - 10/06/2021 6:14 AM INSPECTOR SUBASSEMBLIES TOTAL CHOLESTEROL mg/dL Desirable <200 Borderline high [...] Reference Ranges for Lipid Panels (NCEP/AMA) . [employer]hon[employer]quarisPLUS Int LEGAL INTERN CHEMISTRY ORDERABLES Final Resu lt [facility]# [id number] [address] [place] [address] from Last 3 Months or Most Recently Relevant to Health Maintenance Insurance [employer] + O [facility] Address: [facility] [id number] [place] [id number] RX [facility] [employer] [place] [employer] (INTERNAL) [facility] Internal Plans Advance Directives For more information, please contact: [phone] * Full Code (Latest Code Status on File) Date Activated Date Inactivated Comments 10/25/2021 6:38 PM 10/26/2021 4:31 PM * Full Code Date Activated Date Inactivated Comments 10/06/2021 10:50 AM 10/07/2021 3:53 PM * Full Code Date Activated Date Inactivated Comments 10/05/2021 10:44 PM 10/06/2021 10:50 AM Care Teams Hose Tubing Backer Relationship Specialty Start Date End Date Faisal Richardson DO [address] [place] [address] PCP - General Family Practice 10/25/21
--- OUTSIDE RECORDS SUMMARY | 2025-03-03 03:34 | XMS_ITS | Clinical Summary ---
Author Organization [facility] Address [address] [place] [address] Care Team Providers Care Business Economist Name Role Phone Brandie Jensen APRN AIR GUN OPERATOR-C Unavailable Noé Crowley MD Unavailable [phone] Jasper Figueroa MD Unavailable Torrey Lafleur MD Unavailable [phone] Faisal Richardson DO Primary Care Provider [phone] Jeo Pike MD Unavailable [phone] Wade Rios MD Unavailable Allergies Active Allergy Reactions Criticality Noted Date Comments Penicillins Unknown,Angioedema High 07/14/2014 Medications Losartan Potassium-HCTZ 100-12.5 MG Tab Take 1 tablet by mouth daily. 8 Active metFORMIN 1000 MG tablet Take 1 tablet (1,000 mg total) by mouth 2 (two) times daily with meals. 8 Active CARVEDILOL 25 MG tablet TAKE ONE TABLET BY MOUTH TWICE A DAY 180 tablet 1 2 Active clopidogrel (PLAVIX) 75 MG tablet Take 1 tablet (75 mg total) by mouth daily. 2 Active Multiple Vitamins-Minera ls (EQ COMPLETE MULTIVITAMIN-AD ULT) Tab Take 1 tablet by mouth daily. 3 Active Acetaminophen 500 MG Cap Take 1,000 mg by mouth as needed. 2 Active sertraline (ZOLOFT) 100 MG tablet Take 1 tablet (100 mg total) by mouth daily. 3 Active buPROPion XL (WELLBUTRIN XL) 300 MG 24 hr tablet Take 1 tablet (300 mg total) by mouth every morning. 4 Active cloNIDine (CATAPRES) 0.1 MG tablet Take 1 tablet (0.1 mg total) by mouth 2 (two) times daily. 4 Active TRULICITY 4.5 MG/0.5ML injection (PEN) Inject 4.5 mg into the skin once a week. 5 Active cefPROZIL (CEFZIL) 500 MG tablet Take 1 tablet (500 mg total) by mouth daily. 5 Active clindamycin (CLEOCIN) 150 MG capsule Prior to dental appointments 5 Active amLODIPine (NORVASC) 5 MG tablet Take 1 tablet (5 mg total) by mouth daily. 5 Active rosuvastatin (CRESTOR) 20 MG tablet Take 1 tablet (20 mg total) by mouth daily. 5 Active aspirin 81 MG chewable tablet Chew 1 tablet (81 mg total) by mouth daily. Active Active Problems Problem Noted Date Diagnosed Date Nonrheumatic aortic valve stenosis 01/02/2024 History of CVA (cerebrovascular accident) 2023 Mild carotid artery disease 01/02/2024 Mild coronary artery disease 04/16/2020 LVH (left ventricular hypertrophy) 04/16/2020 AVD (aortic valve disease) 11/24/2017 HTN (hypertension) Diabetes ([facility]) Tinnitus Neuropathy Hyperlipidemia Abnormal stress test Encounters Date Type Department Care Team Description 02/16/2025 Telephone [facility] [address] [place] [address] Brandie Jensen APRN, AIR GUN OPERATOR-C Advice 12/11/2024 2:00 PM CDT Office Visit [facility] [address] [place] [address] Brandie Jensen APRN, FAYE-C Follow Up; Coronary Artery Disease 12/11/2024 10:44 AM CDT - 12/11/2024 11:59 PM CDT Hospital Encounter [facility] Invasive Cardiology [facility] [address] [place] [address] Brandie Jensen, SHANNAN, AIR GUN OPERATOR-C Discharge Disposition: Home or Self Care (Routine Discharge) 12/11/2024 Travel 12/11/2024 Orders Only [facility] [address] [place] [address] Wade Rios MD from Last 3 Months Family History Medical [...] Sign Reading Time Taken Comments Blood Pressure 126/72 12/11/2024 12:00 PM CDT Pulse 64 12/11/2024 11:43 AM CDT Temperature 36.8 C (98.2 F) 11/23/2017 11:30 AM CDT Respiratory Rate 18 12/11/2024 11:43 AM CDT Oxygen Saturation 97% 12/11/2023 9:03 AM CDT Inhaled Oxygen Concentration - - Weight 115.7 kg (255 lb) 12/11/2024 11:43 AM CDT Height 182.9 cm (6') 12/11/2024 11:43 AM CDT Body Mass Index 34.58 12/11/2024 11:43 AM CDT Plan of Treatment Upcoming Encounters Date Type Department Care Team (Late st Contact Info) Description 12/21/2025 1:00 PM CDT Appointment [facility] Invasive Cardiology [facility] [address] [place] [address] Brandie Jensen APRN, AIR GUN OPERATOR-C [address] [facility] [address] [place] [address] 12/21/2025 2:00 PM CDT Office Visit [facility] [address] [place] [address] Brandie Jensen APRN, AIR GUN OPERATOR-C [address] [facility] [address] [address] Health Maintenance Due Date Last Done Comments ASCVD LDL 1965 Colorectal Cancer Screening Colonoscopy (10 Years) 1965 Kidney Health Evaluation 1964 Annual Physical 1967 Diabetes: Retinopathy Eye Exam 1982 Hepatitis C 1982 Pneumococcal Vaccine: 50+ Years (1 of 2 - PCV) 1983 Zoster Vaccines (1 of 2) 2014 Lipid [...] Diagnosis Comments ELECTROCARDIOGRAM (NON MIDMARK ACQUIRED) Routine 12/11/2024 11:49 AM CDT Mild coronary artery disease Hyperlipidemia, unspecified hyperlipidemia type Essential hypertension Bilateral carotid artery stenosis USE ECHOCARDIOGRAM Routine 12/11/2024 11 :10 AM CDT Essential hypertension Nonrheumatic aortic valve stenosis LVH (left ventricular hypertrophy) from Last 3 Months Results * ELECTROCARDIOGRAM (12/11/2024 11:49 AM CDT) 12/11/2024 11:4 9 AM CDT [facility] - 12/12/2024 5:[address] [facility] [address] [place] [address] Test Date: 2024-12-11 Pat Name: JOSE RUTLEDGE Department: 105 Room: Gender: Male Block Trimmer: suzanne : 1965 Requested By: WADE RIOS Order Number: [id number] Reading MD: Wade Rios Measurements Intervals [place] Rate: 64 P: 25 [place]: 195 QRS: 21 QRSD: 99 T: -22 QT: 395 QTc: 408 Interpretive Statements SINUS RHYTHM SEPTAL MYOCARDIAL INFARCTION, PROBABLY OLD Non-specific ST & T wave abnormality Procedure Note Wade Rios MD - 12/12/2024 [facility] [address] [id number] Test Date: 2024-12-11 Pat Name: JOSE RUTLEDGE Department: 105 Room: Gender: Male Block Trimmer: suzanne : 1965 Requested By: WADE RIOS Order Number: [id number] Reading : Wade Rios Measurements Intervals [place] Rate: 64 P: 25 IL: 195 QRS: 21 QRSD: 99 T: -22 QT: 395 QTc: 408 Interpretive Statements SINUS RHYTHM SEPTAL MYOCARDIAL INFARCTION, PROBABLY OLD Non-specific ST & T wave abnormality us Wade Rios MD PROCEDURES-ORDERABLE NO BEATA RGE Final Result [facility] * USE ECHOCARDIOGRAM (12/11/2024 11:10 AM CDT) Anatomical Region Laterality Modality Cardiac Echocardiogram 12/11/2024 10:4 8 AM CDT Narrative 12/14/2024 8:34 AM CDT Echocardiography Report Pat.Name: JOSE RUTLEDGE Pat.ID: [id number] .Date: 12/11/2024 Refer.MD: [id number] JACQUIE Zayas EWDPROV EWDPROV Exam Time: 10:48:00 AM Study Type:ECHO WITH CARDIAC DOPPLER COMP Height: 183 cm Weight: 122 kg BSA: 2.42 m2 Age: 9 1965,59Y Sex: M BP: 122/70 HR: 66 bpm Sonogrphr: Spencer Beltran JOI Pat. Stat.:Outpatient CPT - 4: [id number] Reason for Study:Hypertension Procedures: 2D, M-mode, Doppler, Color Flow Race: W ++++++++++++++++++++++++++++++++++++ SUMMARY: ++++++++++++++++++++++++++++++++++++ The left ventricular size is mildly enlarged. The calculated ejection fraction is 63%. Mild concentric left ventricular hypertrophy. Overall wall motion is normal. The right ventricle is normal in size and function. Inferior vena cava shows >50% collapse with respiration consistent with normal right atrial pressure. Moderate aortic valve stenosis. Mild aortic regurgitation. Mild mitral regurgitation. There is trace tricuspid regurgitation. ++++++++++++++++++++++++++++++++++++ FINDINGS: ++++++++++++++++++++++++++++++++++++ LV: The left ventricular size is mildly enlarged. The left ventricular systolic function is normal. The calculated ejection fraction is 63%. Mild concentric left ventricular hypertrophy. Overall wall motion is normal. All farooq are normal RV: The right ventricle size is normal. The right ventricular function is normal. LA: The left atrial volume is mildly increased (34- 41ml/M2). RA: The right atrial size is normal. YOANDY: No evidence of pericardial effusion. PA: Estimated right atrial pressure of 3 mmHg. SVn: Inferior vena cava shows >50% collapse with respiration consistent with normal right atrial pressure. AV: The aortic valve is trileaflet. Moderate aortic valve stenosis. The peak velocity across the aortic valve measures 3.7m/sec with a peak gradient of 55mmHg and a mean gradient of 30mmHg. The calculated aortic valve area is 1.2cm2. Mild aortic regurgitation. Aortic valve calcification with reduced systolic leaflet excursion. Dimensionless index of 0.3. MV: Mild mitral regurgitation. No evidence of mitral stenosis. PV: No evidence of pulmonic valve stenosis. No evidence of pulmonic regurgitation. TV: The tricuspid valve appears structurally normal. There is trace tricuspid regurgitation. ++++++++++++++++++++++++++++++++++++ MEASUREMENTS: ++++++++++++++++++++++++++++++++++++ DOPPLER LVOT LVOTpkPG 4 mmHg LVOTmnPG 3 mmHg LVOTpkVel 105 cm/s (70-110) LVOT SV 105 ml LVOT TVI 25.3 cm AV Forward Flow AV TVI 86.5 cm AV pkPG 55 mmHg AV pkVel 371 cm/s (100-170)+* Area (TVI) 1.21 cm2 (3-5)* AV mnVel 272 cm/s Area (Ted) 1.17 cm2 (3-5)* AV mnPG 32 mmHg AV Regurg Flow AV pkVel 451 cm/s AV P1/2t 642 msec AV pkPG 81 mmHg MV Forward Flow MV DeTm 239 msec MV pkE 60.6 cm/s (60-130) MV E/A 0.9 MV pkA 65.5 cm/s Lat E' Lat e 7.72 cm/s Lat E/E' Lat E/e 7.8 Med E' Med e 5.87 cm/s Med E/E' Med E/e 10.3 Aortic Valve Aortic Valve Ar 0.5 Aortic Valve Ve 0.28 AV DI Value 0.3 JAYLAN (VTI) Index Value 0.5 LV Mass 2D Value 277 g LV Mass Naljd3P Value 114 g/m2 RA Volume Atrial Carey 5.33 cm Atrial Carey 22 cm2 Atrial Carey 73.7 ml 2D Left Ventricle LVIDd 5.58 cm (3.6-5.2)* LV EF(Bi-Plane) 63 % (63-77) LVIDs 3.62 cm (2.3-3.9) LV RWT 0.43 % LVPW LVPWd 1.2 cm Ventricular Septum IVSd 1.39 cm Left Atrium LA a-p 4.8 cm (2.8-3.4)* Aorta Ao Asc 3.3 cm (2.1-3.4) LVOT LVOT 2.3 cm Ratios IVS LA Biplane LAVol I BP 36.2 ml/m2 Right Ventricle Right Ventricle 4.61 cm Right Ventricul 10.2 cm2 Right Ventricul 23.5 cm2 Right Ventricul 56.6 % MMODE Aorta Ao Rt 3.2 cm (2-3.7) ++++++++++++++++++++++++++++++++++++ WALL MOTION: ++++++++++++++++++++++++++++++++++++ RESTING WALL MOTION: All farooq are normal Wall Index = 1 <Electronic Signature> 12/14/2024 08:34 AM Vashti Gaines M.D. Procedure Note Vashti Gaines MD - 12/14/2024 Echocardiography Report Pat.Name: MATY JOSE Mychal Pat.ID: [id number] .Date: 12/11/2024 : [id number] JACQUIE Zayas EWDPROV EWDPROV Exam Time: 10:48:00 AM Study Type:ECHO WITH CARDIAC DOPPLER COMP Height: 183 cm Weight: 122 kg BSA: 2.42 m2 Age: 9 1965,59Y Sex: M BP: 122/70 HR: 66 bpm Sonogrphr: Spencer Beltran [facility] Pat. Stat.:Outpatient CPT - 4: [id number] Reason for Study:Hypertension Procedures: 2D, M-mode, Doppler, Color Flow Race: W ++++++++++++++++++++++++++++++++++++ SUMMARY: ++++++++++++++++++++++++++++++++++++ The left ventricular size is mildly enlarged. The calculated ejection fraction is 63%. Mild concentric left ventricular hypertrophy. Overall wall motion is normal. The right ventricle is normal in size and function. Inferior vena cava shows >50% collapse with respiration consistent with normal right atrial pressure. Moderate aortic valve stenosis. Mild aortic regurgitation. Mild mitral regurgitation. There is trace tricuspid regurgitation. ++++++++++++++++++++++++++++++++++++ FINDINGS: ++++++++++++++++++++++++++++++++++++ LV: The left ventricular size is mildly enlarged. The left ventricular systolic function is normal. The calculated ejection fraction is 63%. Mild concentric left ventricular hypertrophy. Overall wall motion is normal. All farooq are normal RV: The right ventricle size is normal. The right ventricular function is normal. LA: The left atrial volume is mildly increased (34- 41ml/M2). RA: The right atrial size is normal. YOANDY: No evidence of pericardial effusion. PA: Estimated right atrial pressure of 3 mmHg. SVn: Inferior vena cava shows >50% collapse with respiration consistent with normal right atrial pressure. AV: The aortic valve is trileaflet. Moderate aortic valve stenosis. The peak velocity across the aortic valve measures 3.7m/sec with a peak gradient of 55mmHg and a mean gradient of 30mmHg. The calculated aortic valve area is 1.2cm2. Mild aortic regurgitation. Aortic valve calcification with reduced systolic leaflet excursion. Dimensionless index of 0.3. MV: Mild mitral regurgitation. No evidence of mitral stenosis. PV: No evidence of pulmonic valve stenosis. No evidence of pulmonic regurgitation. TV: The tricuspid valve appears structurally normal. There is trace tricuspid regurgitation. ++++++++++++++++++++++++++++++++++++ MEASUREMENTS: ++++++++++++++++++++++++++++++++++++ DOPPLER LVOT LVOTpkPG 4 mmHg LVOTmnPG 3 mmHg LVOTpkVel 105 cm/s (70-110) LVOT SV 105 ml LVOT TVI 25.3 cm AV Forward Flow AV TVI 86.5 cm AV pkPG 55 mmHg AV pkVel 371 cm/s (100-170)+* Area (TVI) 1.21 cm2 (3-5)* AV mnVel 272 cm/s Area (Ted) 1.17 cm2 (3-5)* AV mnPG 32 mmHg AV Regurg Flow AV pkVel 451 cm/s AV P1/2t 642 msec AV pkPG 81 mmHg MV Forward Flow MV DeTm 239 msec MV pkE 60.6 cm/s (60-130) MV E/A 0.9 MV pkA 65.5 cm/s Lat E' Lat e 7.72 cm/s Lat E/E' Lat E/e 7.8 Med E' Med e 5.87 cm/s Med E/E' Med E/e 10.3 Aortic Valve Aortic Valve Ar 0.5 Aortic Valve Ve 0.28 AV DI Value 0.3 JAYLAN (VTI) Index Value 0.5 LV Mass 2D Value 277 g LV Mass Pacho8K Value 114 g/m2 RA Volume Atrial Carey 5.33 cm Atrial Carey 22 cm2 Atrial Carey 73.7 ml 2D Left Ventricle LVIDd 5.58 cm (3.6-5.2)* LV EF(Bi-Plane) 63 % (63-77) LVIDs 3.62 cm (2.3-3.9) LV RWT 0.43 % LVPW LVPWd 1.2 cm Ventricular Septum IVSd 1.39 cm Left Atrium LA a-p 4.8 cm (2.8-3.4)* Aorta Ao Asc 3.3 cm (2.1-3.4) LVOT LVOT 2.3 cm Ratios IVS LA Biplane LAVol I BP 36.2 ml/m2 Right Ventricle Right Ventricle 4.61 cm Right Ventricul 10.2 cm2 Right Ventricul 23.5 cm2 Right Ventricul 56.6 % MMODE Aorta Ao Rt 3.2 cm (2-3.7) ++++++++++++++++++++++++++++++++++++ WALL MOTION: ++++++++++++++++++++++++++++++++++++ RESTING WALL MOTION: All farooq are normal Wall Index = 1 <Electronic Signature> 12/14/2024 08:34 AM Vashti Gaines M.D. BELLO Velarde APRN ECHO Final Result from Last 3 Months Insurance [facility] MEDICARE Advance Directives * Full Code (Latest Code Status on File) Date Activated Date Inactivated Comments 11/23/2017 3:08 PM 11/23/2017 7:02 PM Care Teams Business Economist Relationship Specialty Start Date End Date BonnieFaisal klein DO [address] [place] [address] PCP - General FAMILY PRACTICE 11/29/22 Brandie Jensen, DEFENSE ANALYST, AIR GUN OPERATOR-C [address] [place] [address] [address] [place] [address] NURSE PRACTITIONER 02/08/21 Noé Crowley MD [address] [facility] [address] [facility] [address] [place] [address] Surgeon ORTHOPAEDIC SURGERY 02/08/21 Jasper Figueroa MD [address] [facility]. [address] [place] [address] Surgeon NEUROLOGICAL SURGERY 12/08/21 Torrey Lafleur MD [address] [facility] [place], [place] [address] ORTHOPAEDIC SURGERY 11/22/22 Joe Pike MD [address] [place] [address] Consulting Physician INTERVENTIONAL CARDIOLOGY 03/19/24 Wade Rios MD [address] [place] [address] Consulting Physician INTERVENTIONAL CARDIOLOGY 01/28/25
--- OUTSIDE RECORDS SUMMARY | 2025-03-03 03:35 | XMS_ITS | Referral Summary ---
Author Organization [facility] Address [address] [place] [address] Care Team Providers Care Oxygen Equipment Preparer Name Role Phone DebraFaisal Finch Primary Care [...] (03/14/2022): Added automatically from request for surgery [id number] Social History Tobacco Use Types Packs/Day Years [...] on file Medical Devices Implanted Type Area Cutter Out Device Identifier Shelf Expiration Date Model / Serial / Lot Depuy [employer] Glenosphere Xtend Lateralized 42mm +4mm Standard [id number] - [id number] Implanted:Qty: 1 on 05/02/2022 by Guille Guillaume MD at [facility] [employer] [id number] 01/03/2027 [id number] / / Depuy [employer] Delta Xtend 4.5mm 24mm Lock Shoulder Glenoid Screw Bone Metaglene [id number] - [id number] Implanted:Qty: 1 on 05/02/2022 by Guille Guillaume MD at [facility] [employer] [id number] 04/05/2026 [id number] / / Depuy [employer] Delta Xtend 4.5mm 48mm Lock Shoulder Glenoid Screw Bone Metaglene [id number] - [id number] Implanted:Qty: 1 on 05/02/2022 by Guille Guillaume MD at [facility] [employer] [id number] 07/05/2026 [id number] / / Depuy [employer] Delta Xtend 27mm Cementless Shoulder Standard Component Glenoid Latex Free [id number] - [id number] Implanted:Qty: 1 on 05/02/2022 by Guille Guillaume MD at [facility] [employer] 12/04/2031 [id number] / / Depuy [employer] Delta Xtend 4.5mm 36mm Lock Shoulder Glenoid Screw Bone Metaglene [id number] - [id number] Implanted:Qty: 1 on 05/02/2022 [facility] 01/03/2027 [id number] / / Depuy [employer] Inc Implant Shldr Xtend Modecc 145epi Por Sz1 Lt [id number] - [id number] Implanted:Qty: 1 on 05/02/2022 by [facility] 11/03/2030 [id number] / / Depuy [employer] Global Unite 10mm 113mm Modular Shoulder Standard Stem Humeral [id number] - [id number] Implanted:Qty: 1 on 05/02/2022 by [facility] at [facility] [employer] 02/03/2032 [id number] / / Depuy [employer] Delta Xtend 42mm Shoulder +3mm Standard Cup Humeral Polyethylene Latex Free [id number] - [id number] Implanted:Qty: 1 on 05/02/2022 by [facility] [employer] 01/30/2027 [id number] / / Insurance [employer] PPO POS HEALTHLINK PPO POS HEALTHLINK OPEN ACCESS HEALTHLINK OPEN ACCESS HEALTHLINK HMO Advance Directives For more information, please contact: [phone] * Full Code (Latest Code Status on File) Date Activated Date Inactivated Comments 05/02/2022 11:32 AM 05/03/2022 4:06 PM Care Teams Oxygen Equipment Preparer Relationship Specialty Start Date End Date Faisal Richardson DO [address] [place] [address] PCP - General Family Medicine 04/27/22
--- OUTSIDE RECORDS SUMMARY | 2025-03-03 03:35 | XMS_ITS | Clinical Summary ---
Author Organization [facility] Address [address] [facility] [place] [address] Care Team Providers Care Strapping Machine Tender Name Role Phone Faisal Richardson DO Primary Care Provider [phone] Source Comments [facility],non-owned Affiliates and Associated Physician Practices is amultiple site organization consisting of ambulatory clinics and hospital sitesin [place], [place], [place] and [place]. This disclosure is being madepursuant to the Care Everywhere program and may not contain all information available regarding this patient. Last updated 18.[facility] Allergies Active Allergy Reactions Criticality Noted Date [...] injection 2 Active ergocalciferol (Drisdol) 1.25 MG (97801 UT) capsule Take 1 (one) capsule by mouth 2 Active metFORMIN (Glucophage) 1000 MG tablet Take 1 (one) tablet by mouth 2 times daily 2 Active Multiple Vitamins-Garage Door Service Technician als (One-A-Day Mens Health Formula) TABS 2 [...] Visit [facility] - Orthopedic Surgery [address] [place] [phone] Torrey Lafleur MD S/P revision of total hip (Primary Dx) 01/20/2025 9:58 AM CDT - 01/20/2025 11:59 PM CDT Hospital Encounter [facility] - Orthopedics [address] [place] [address], [address] [place] [address] Torrey Lafleur MD Discharge Disposition: Home or Self Care 01/20/2025 Travel 01/16/2025 Orders Only [facility] - Orthopedic Surgery [address] [place] [phone] Torrey Lafleru MD S/P revision of total hip from [...] Recorded Patient Health Questionnaire-2 Score 2 01/14/2025 [facility] Occupat ional Health - Occupational Stress [...] slept in a usp (including now)? 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 Gender Identity Not on file Sexual Orientation [...] [facility] [address] [place] [phone] Torrey Lafleur MD [address] [facility] [address] [place] [address] Health Maintenance Due Date Last Done Comments [...] 60-74 years 1-dose series) 2024 INFLUENZA VACCINE (#1) 2025 DTAP/TDAP/TD VACCINES (2 - T d [...] this topic Medical Devices Implanted Type Area Cabin Cleaning Supervisor Device Identifier Shelf Expiration Date Model / Serial / Lot Cable Orth Cocr 2mm 75mm Troch Clp Implanted:Qty : 1 on 12/08/2022 by Torrey Lafleur MD at [facility] Cable Right: Femur [employer] 06/07/2032 [id number] / / [id number] Screw 6.5mm 25mm Hip Actb Canc Sphrcl Implanted:Qty : 1 on 12/08/2022 by Torrey Lafleur MD at [facility] Screw Right: Hip [employer] 02/09/2032 [id number] / / [id number] Shell Actb 62mm Hip 3 Hl Por R3 Implanted:Qty : 1 on 12/08/2022 by Torrey Lafleur MD at [facility] Right: Hip [employer] 11/11/2031 [id number] / / [id number] Liner Actb R3 0d 62mm 44mm Xlpe Implanted:Qty : 1 on 12/08/2022 by Torrey Lafleur MD at [facility] Right: Hip [employer] [id number] 03/23/2029 [id number] / / [id number] Fem High Offset Sleeved Stem 17h X 240mm Implanted:Qty : 1 on 12/08/2022 by Torrey Lafleur MD at [facility] Right: Hip [employer] 02/05/2027 [id number] / / [id number] Head Fem 44mm Mdlr Tl Oxnm Implanted:Qty : 1 on 12/08/2022 by Torrey Lafleur MD at [facility] Right: Hip [employer] [id number] 04/02/2031 [id number] / / [id number] Slv Fem Anthology +4 Tpr Hip Ti Implanted:Qty : 1 on 12/08/2022 by Torrey Lafleur MD at [facility] Right: Hip [employer] [id number] 04/20/2032 [id number] / / [id number] Slv Centering 50mm 20-23mm Redapt 16-17 Implanted:Qty : 1 on 12/08/2022 by Torrey Lafleur MD at [facility] Right: Hip [employer] 11/21/2031 [id number] / / [id number] Cmnt Bone Rally 40gm Hvisc Sprmnt Grn Implanted:Qty : 1 on 09/24/2023 by Torrey Lafleur MD at [facility] Right: Hip [employer] 04/05/2024 [id number] / / [id number] Cmnt Bone Rally 40gm Hvisc Sprmnt Grn Implanted:Qty : 1 on 09/27/2023 by Torrey Lafleur MD at [facility] Right: Hip [employer] 06/05/2027 [id number] / / [id number] Femoral Head Implanted:Qty : 1 on 10/02/2023 by Torrey Lafleur MD at [facility] Right: Hip [employer] 04/30/2033 [id number] / / [id number] Head Sleeve Implanted:Qty : 1 on 10/02/2023 by Torrey Lafleur MD at [facility] Right: Hip [employer] 03/20/2033 [id number] / / [id number] Liner Implanted:Qty : 1 on 10/02/2023 by Torrey Lafleur MD at [facility] Right: Hip [employer] 03/23/2029 [id number] / / [id number] Procedures Procedure Name Priority Date/Time Associated Diagnosis [...] 2VW Exam Date: 01/20/2025 10:40 AM Location: [facility] Indication: Z96.649: S/P revision of [...] 2VW Exam Date: 01/20/2025 10:40 AM Location: [facility] Indication: Z96.649: S/P revision of [...] Result from Last 3 Months Insurance MEDICARE [facility] Advance Directives * Full Code (Latest Code [...] 7:55 PM 12/16/2022 1:07 PM Care Teams Strapping Machine Tender Relationship Specialty Start Date End Date Faisal Richardson DO [address] [place], [place] [id number] PCP - General Family Medicine 11/27/22
--- OUTSIDE RECORDS SUMMARY | 2025-03-03 03:35 | XMS_ITS | Clinical Summary ---
Author Organization [facility] Address [address] [place] [address] Care Team Providers Care Line Producer Name Role Phone DebraFaisal Finch Primary Care [...] (03/14/2022): Added automatically from request for surgery [id number] Surgical History Surgery Date Site/Laterality Comments FLUORO GUIDED INJECTION SHOULDER [facility] Medical History Medical History Date Comments [...] 2024 07/13/2021, 11/04/2020, 10/14/2020 Influenza Vaccine (#1) 2025 DTaP/Tdap/Td Vaccine (2 - Td or Tdap) 10/26/2031 10/25/2021 Pneumococcal vaccine <65 Aged Out No longer eligible based on patient's age to complete this topic Medical Devices Implanted Type Area Lime Mixer Tender Device Identifier Shelf Expiration Date Model / Serial / Lot Dep [employer] Glenosphere Xtend Lateralized 42mm +4mm Standard [id number] - [id number] Implanted:Qty: 1 on 05/02/2022 by Guille Guillaume MD at [facility] [employer] [facility] [id number] 01/03/2027 [id number] / / Depuy [employer] Delta Xtend 4.5mm 24mm Lock Shoulder Glenoid Screw Bone Metaglene [id number] - [id number] Implanted:Qty: 1 on 05/02/2022 [facility] [id number] 04/05/2026 [id number] / / Depuy [employer] [facility] Delta Xtend 4.5mm 48mm Lock Shoulder Glenoid Screw Bone Metaglene [id number] - [id number] Implanted:Qty: 1 on 05/02/2022 by Guille Guillaume MD at [facility] [employer] [facility] [id number] 07/05/2026 [id number] / / Depuy [employer] [facility] Delta Xtend 27mm Cementless Shoulder Standard Component Glenoid Latex Free [id number] - [id number] Implanted:Qty: 1 on 05/02/2022 by Guille Guillaume MD at [facility] [employer] [facility] 12/04/2031 [id number] / / Depuy [employer] [facility] Delta Xtend 4.5mm 36mm Lock Shoulder Glenoid Screw Bone Metaglene [id number] - [id number] Implanted:Qty: 1 on 05/02/2022 by [facility] [employer] [facility] 01/03/2027 [id number] / / Depuy [employer] [facility] Implant Shldr Xtend Modecc 145epi Por Sz1 Lt [id number] - [id number] Implanted:Qty: 1 on 05/02/2022 by Guille Guillaume MD at [facility] [employer] [facility] 11/03/2030 [id number] / / Depuy [employer] Global Unite 10mm 113mm Modular Shoulder Standard Stem Humeral [id number] - [id number] Implanted:Qty: 1 on 05/02/2022 by Guille Guillaume MD at [facility] [employer] 02/03/2032 [id number] / / Depuy [employer] Delta Xtend 42mm Shoulder +3mm Standard Cup Humeral Polyethylene Latex Free [id number] - [id number] Implanted:Qty: 1 on 05/02/2022 by Guille Guillaume MD at [facility] [employer] 01/30/2027 [id number] / / Insurance HEALTH[employer] PPO POS HEALTHLINK PPO POS HEALTHLINK OPEN ACCESS HEALTHLINK OPEN ACCESS HEALTHLINK HMO Advance Directives For more information, please contact: [phone] * Full Code (Latest Code Status on File) Date Activated Date Inactivated Comments 05/02/2022 11:32 AM 05/03/2022 4:06 PM Care Teams Line Producer Relationship Specialty Start Date End Date Faisal Richardson DO [address] [place] [address] PCP - General Family Medicine 04/27/22
[2025-03-03 09:07] VITALS: BP 143/75; PULSE 72; RESP 18; TEMP 36.6; O2SAT 98; BMI 33.7
[2025-03-03] MEDS: LACTATED RINGERS 1,000 ML 150 ML IV CONT (09:16)
--- NOTE | 2025-03-03 09:19 | WPDANESEPPF ---
Anes - Initial Pre Proc Eval Procedure: Operation Date: 03/03/25 10:30 Proposed Procedures p Screening Colonoscopy - Tom Adam MD Date/Time: 03/03/25 09:19 Surgeon: Tom Adam MD Pre Op Diagnosis: Family Hx of malignant neoplasm of digestive organ Patient Data Age: 59 Gender: M Height: 1.83 m Weight: 113 kg Last Vital Signs Temp 36.6 C 03/03/25 09:07 Pulse 72 03/03/25 09:07 Resp 18 03/03/25 09:07 BP 143/75 H 03/03/25 09:07 Pulse Ox 98 03/03/25 09:07 O2 Del Method Room Air 03/03/25 09:07 Allergies Allergy/AdvReac Type Severity Reaction Status Date / Time Penicillins Allergy Intermediate Hives Verified 03/03/25 09:05 cephalexin AdvReac Intermediate Nausea Verified 03/03/25 09:05 hydrocodone (From [place]) AdvReac Intermediate Nausea and Verified 03/03/25 09:05 Vomiting benzhydrocodone AdvReac Unknown Nausea Verified 03/03/25 09:05 Home Medications ?Medication ?Instructions ?Recorded ?Confirmed ?Type multivitamin 1 tablet PO DAILY 02/10/21 03/03/25 History cefprozil 500 mg tablet 500 mg PO DAILY 11/12/24 03/03/25 History clopidogrel 75 mg tablet See Rx Instructions .Route 11/12/24 03/03/25 Rx .COMPLEX #90 tabs deucravacitinib 6 mg tablet 6 mg PO DAILY 11/12/24 03/03/25 History ([place]ilipp) carvedilol 25 mg tablet See Rx Instructions .Route 11/24/24 03/03/25 Rx .COMPLEX #180 tabs losartan 100 See Rx Instructions .Route 11/24/24 03/03/25 Rx mg-hydrochlorothiazide 12.5 mg .COMPLEX #90 tabs tablet metformin 1,000 mg tablet See Rx Instructions .Route 11/24/24 03/03/25 Rx .COMPLEX #180 tabs clonidine HCl 0.1 mg tablet See Rx Instructions .Route 12/09/24 03/03/25 Rx .COMPLEX #180 tabs dulaglutide 4.5 mg/0.5 mL 4.5 mg (0.5 mL) subcut WEEKLY #2 mL 01/21/25 03/03/25 Rx subcutaneous pen injector (Trulicity) sertraline 100 mg tablet See Rx Instructions .Route 02/04/25 03/03/25 Rx .COMPLEX #60 tabs amlodipine 5 mg tablet See Rx Instructions .Route 02/09/25 03/03/25 Rx .COMPLEX #90 tabs aspirin 81 mg tablet,delayed 81 mg PO DAILY 02/17/25 03/03/25 History release (Adult Low Dose Aspirin) bupropion HCl 150 mg 24 hr tablet, 450 mg PO QAM 02/17/25 03/03/25 History extended release cyanocobalamin (vitamin B-12) 500 500 mcg PO DAILY 02/17/25 03/03/25 History mcg tablet rosuvastatin 20 mg tablet See Rx Instructions .Route 02/17/25 03/03/25 Rx .COMPLEX #90 tabs Laboratory Tests 03/03/25 09:14 POC Capillary Glucose Pending Patient hx anesthesia problems: none Family hx anesthesia problems: none Results Review: All pre-operative results and documents have been reviewed as part of the pre-operative evaluation. [facility] Past Medical History Medical History Septic arthritis of hip Aortic stenosis mild to moderate Anxiety Degenerative disc disease Diabetes Heart beat abnormality History of dental problems Wears glasses Dizziness Stroke Complete rotator cuff tear of left shoulder Nontraumatic rupture of long head of biceps tendon of right shoulder Psoriasis CVA, old, ataxia Cellulitis Benign paroxysmal positional vertigo Restless legs syndrome (RLS) Acid reflux Degenerative arthritis of left knee Acute medial meniscus tear of left knee Sleep apnea Obesity Heart murmur Sees Dr Meehan Ulcer JEWEL (generalized anxiety disorder) Type 2 diabetes mellitus Chronic back pain Hypertension Hyperlipidemia Surgical History Surgical History History of appendectomy History of back surgery Right L1-2 microscopic lumbar diskectomy right L2-3 hemilaminectomy right L5-S1 far lateral foraminotomy and microdiskectomy 02/28/22 S/P total hip arthroplasty Rt ALIREZA 06/21/22 Status post reverse total arthroplasty of left shoulder 05/02/2022 Dr. Guille Guillaume at [place] H/O knee surgery 2020 Dr. Crowley Family History Family History Mother Family history of dementia Cerebrovascular accident Family history of malignant neoplasm Father Family history of malignant neoplasm Other Diabetes mellitus Family history of arthritis Family history of cardiovascular disease Family history of type 2 diabetes mellitus Hypertension Social History Social History Social History: The patient lives with his and he has one daughter . He is unemployed. The patient is lifelong nonsmoker. Code status full code Smoking status: Never smoker Second hand tobacco smoke exposure: No Additional smoking assessment comments: STATES OCCASIONALLY VAPES - LAST 05/25/22 PM Alcohol intake: never Drinks per week: 12 Alcohol use details: beer Substance use: never Substance use type: does not use Current Housing: Decline to Answer Concerned About Future Housing: Decline to Answer Difficulty Paying Gas/Electric Bills: Decline to Answer Difficulty Paying for Meds: Decline to Answer Currently Unemployed: Decline to Answer Education: Decline to Answer Difficulty w/ Childcare or Family Care: Decline to Answer Living arrangements: with family Spiritual care concerns: No Anes - Eval Final PreProcedure Day of Procedure 03/03/25 09:19 Patient weight: obese Heart: regular rate and rhythm Lungs: clear to auscultation Airway: Mallampati scale class II Neurological: alert and oriented Last oral intake: >/= 8 hours ASA classification: III Emergent: no Anesthetic plan: proceed Anesthesia type and monitoring: general GIVS and standard monitoring Results Review: All pre-operative results and documents have been reviewed as part of the pre-operative evaluation. Informed Consent: The patient's anesthetic plan and its attendant risks and benefits were discussed with the patient/family/POA. Questions were solicited and answers provided to the satisfaction of the patient/family/POA.
--- NOTE | 2025-03-03 09:53 | P.HP_ITS ---
History of Present Illness History of Present Illness Consent: Risks, benefits, and alternatives have been discussed and questions answered. Patient agrees to proceed with procedure. Chief complaint: Family Hx of malignant neoplasm of digestive organ Narrative: Jose Rutledge is a 59 year old male with last colonoscopy 2019, father had colon cancer Review of Systems Review of Systems: All systems reviewed & are unremarkable except as noted in HPI and below PMFSH Past Medical History Medical History (Updated 03/03/25 @ 09:53 by Tom Adam MD) Family history of colon cancer in father Septic arthritis of hip Aortic stenosis mild to moderate Anxiety Degenerative disc disease Diabetes Heart beat abnormality History of dental problems Wears glasses Dizziness Stroke Complete rotator cuff tear of left shoulder Nontraumatic rupture of long head of biceps tendon of right shoulder Psoriasis CVA, old, ataxia Cellulitis Benign paroxysmal positional vertigo Restless legs syndrome (RLS) Acid reflux Degenerative arthritis of left knee Acute medial meniscus tear of left knee Sleep apnea Obesity Heart murmur Sees Dr Meehan Ulcer JEWEL (generalized anxiety disorder) Type 2 diabetes mellitus Chronic back pain Hypertension Hyperlipidemia Surgical History Surgical History History of appendectomy History of back surgery Right L1-2 microscopic lumbar diskectomy right L2-3 hemilaminectomy right L5- S1 far lateral foraminotomy and microdiskectomy 02/28/22 S/P total hip arthroplasty Rt ALIREZA 06/21/22 Status post reverse total arthroplasty of left shoulder 05/02/2022 Dr. Guille Guillaume at [place] H/O knee surgery 2020 Dr. Crowley Family History Family History Mother Family history of dementia Cerebrovascular accident Family history of malignant neoplasm Father Family history of malignant neoplasm Other Diabetes mellitus Family history of arthritis Family history of cardiovascular disease Family history of type 2 diabetes mellitus Hypertension Social History Social History Social History: The patient lives with his and he has one daughter . He is unemployed. The patient is lifelong nonsmoker. Code status full code Smoking status: Never smoker Second hand tobacco smoke exposure: No Additional smoking assessment comments: STATES OCCASIONALLY VAPES - LAST 05/25/22 PM Alcohol intake: never Drinks per week: 12 Alcohol use details: beer Substance use: never Substance use type: does not use Current Housing: Decline to Answer Concerned About Future Housing: Decline to Answer Difficulty Paying Gas/Electric Bills: Decline to Answer Difficulty Paying for Meds: Decline to Answer Currently Unemployed: Decline to Answer Education: Decline to Answer Difficulty w/ Childcare or Family Care: Decline to Answer Living arrangements: with family Spiritual care concerns: No Meds Home Medications and Allergies Home Medications ?Medication ?Instructions ?Recorded ?Confirmed ?Type multivitamin 1 tablet PO DAILY 02/10/21 03/03/25 History cefprozil 500 mg tablet 500 mg PO DAILY 11/12/24 03/03/25 History clopidogrel 75 mg tablet See Rx Instructions .Route 11/12/24 03/03/25 Rx .COMPLEX #90 tabs deucravacitinib 6 mg tablet 6 mg PO DAILY 11/12/24 03/03/25 History ([place]) carvedilol 25 mg tablet See Rx Instructions .Route 11/24/24 03/03/25 Rx .COMPLEX #180 tabs losartan 100 See Rx Instructions .Route 11/24/24 03/03/25 Rx mg-hydrochlorothiazide 12.5 mg .COMPLEX #90 tabs tablet metformin 1,000 mg tablet See Rx Instructions .Route 11/24/24 03/03/25 Rx .COMPLEX #180 tabs clonidine HCl 0.1 mg tablet See Rx Instructions .Route 12/09/24 03/03/25 Rx .COMPLEX #180 tabs dulaglutide 4.5 mg/0.5 mL 4.5 mg (0.5 mL) subcut WEEKLY #2 mL 01/21/25 03/03/25 Rx subcutaneous pen injector (Trulicity) sertraline 100 mg tablet See Rx Instructions .Route 02/04/25 03/03/25 Rx .COMPLEX #60 tabs amlodipine 5 mg tablet See Rx Instructions .Route 02/09/25 03/03/25 Rx .COMPLEX #90 tabs aspirin 81 mg tablet,delayed 81 mg PO DAILY 02/17/25 03/03/25 History release (Adult Low Dose Aspirin) bupropion HCl 150 mg 24 hr tablet, 450 mg PO QAM 02/17/25 03/03/25 History extended release cyanocobalamin (vitamin B-12) 500 500 mcg PO DAILY 02/17/25 03/03/25 History mcg tablet rosuvastatin 20 mg tablet See Rx Instructions .Route 02/17/25 03/03/25 Rx .COMPLEX #90 tabs Allergies Allergy/AdvReac Type Severity Reaction Status Date / Time Penicillins Allergy Intermediate Hives Verified 03/03/25 09:05 cephalexin AdvReac Intermediate Nausea Verified 03/03/25 09:05 hydrocodone (From [place]) AdvReac Intermediate Nausea and Verified 03/03/25 09:05 Vomiting benzhydrocodone AdvReac Unknown Nausea Verified 03/03/25 09:05 Vital Signs Vital Signs - 24 hr 03/03/25 09:07 Temperature 98 F Pulse Rate 72 Respiratory Rate 18 Blood Pressure 143/75 H Pulse Oximetry 98 Oxygen Delivery Room Air Exam Const: General: comfortable and no acute distress HENMT: Face/Nose/Sinus: Normal nares present Eyes: General: appearance normal, both eyes and all related structures Neck: Neck: no JVD Resp: Auscultation: clear to auscultation bilaterally Cardio: Rate: regular rate Rhythm: regular rhythm GI: Inspection: non-distended GI Palp: Yes Soft to palpation Skin: General skin exam: normal color Neuro: General: gait normal Speech: normal speech Extrem: General: normal to inspection Psych: Mental Status: mental status grossly normal Assessment and Plan Assessment and plan (1) Family history of colon cancer in father: Code(s): Z80.0 - Family history of malignant neoplasm of digestive organs Status: Acute Assessment and Plan: colonoscopy
--- NOTE | 2025-03-03 10:08 | S_PTH ---
PATIENT: Jose Ruteldge LOC: [facility]#:[id number] AGE/SX: 59/M ROOM: RE03/03/[address]: Tom Adam MD : 1965 BED: DIS: 03/03/2025 SPEC #: [id number] RECD: 03/03/25 12:36 STATUS: SULAIMAN REQ #: [id number] DEX: 03/03/25 10:[address]: Tom Adam DEPT: [facility] Surgical RECD BY: Paola Munson ENTERED: 03/03/25 12:36 SP TYPE: Surgical OTHR DR: Faisal Richardson DO Tissues: A - Colon Polypectomy Procedures: Hematoxylin and Eosin Stain Gross and Microscopic Level 4
[2025-03-03 10:11] VITALS: BP 110/59; PULSE 64; RESP 12; O2SAT 97
[2025-03-03 10:21] VITALS: BP 129/54; PULSE 67; RESP 20; O2SAT 98
[2025-03-03 10:31] VITALS: BP 118/67; PULSE 62; RESP 17; O2SAT 98
== END 2025-03-03 10:50 | disposition home or self-care (01) ==
PROVIDERS: PCP Family Medicine; Referring Provider Family Medicine; Visit Provider Internal Medicine Gastroenterology
PROC: 0DJD8ZZ Inspection of Lower Intestinal Tract, Via Natural or Artificial Opening Endoscopic (ICD-10-PCS; CPT 45378; principal; 2025-03-03 10:30)
DX: Z12.11 Encounter for screening for malignant neoplasm of colon (principal); D12.3 Benign neoplasm of transverse colon; K64.8 Other hemorrhoids; E78.5 Hyperlipidemia, unspecified; I10 Essential (primary) hypertension; I35.0 Nonrheumatic aortic (valve) stenosis; F41.9 Anxiety disorder, unspecified; E11.9 Type 2 diabetes mellitus without complications; I49.9 Cardiac arrhythmia, unspecified; G25.81 Restless legs syndrome; M17.12 Unilateral primary osteoarthritis, left knee; K21.9 Gastro-esophageal reflux disease without esophagitis; G47.30 Sleep apnea, unspecified; R01.1 Cardiac murmur, unspecified; M16.10 Unilateral primary osteoarthritis, unspecified hip; M51.9 Unspecified thoracic, thoracolumbar and lumbosacral intervertebral disc disorder; L40.9 Psoriasis, unspecified; G89.29 Other chronic pain; M54.9 Dorsalgia, unspecified; E66.9 Obesity, unspecified; Z68.33 Body mass index [BMI] 33.0-33.9, adult; Z79.02 Long term (current) use of antithrombotics/antiplatelets; Z79.84 Long term (current) use of oral hypoglycemic drugs; Z79.85 Long-term (current) use of injectable non-insulin antidiabetic drugs; Z79.82 Long term (current) use of aspirin; Z98.890 Other specified postprocedural states; Z98.1 Arthrodesis status; Z87.891 Personal history of nicotine dependence; Z86.79 Personal history of other diseases of the circulatory system; Z87.11 Personal history of peptic ulcer disease; Z86.73 Personal history of transient ischemic attack (TIA), and cerebral infarction without residual deficits; Z80.0 Family history of malignant neoplasm of digestive organs; Z82.49 Family history of ischemic heart disease and other diseases of the circulatory system
CPT/HCPCS: 45385; 82948; 88305; J2003; J2704; J7120